=== PATIENT | female | born 1965 | race Caucasian/White ===

== ENCOUNTER → 2016-11-07 | Outpatient (CLI) | payer MEDICAID ==
[~2016-11-07] MED LIST: ACHD5005 PO; ALBU17AE23 INH; ALBU2.5V4 IH; ALBU8.5H2 IH; ALPR.5T PO; ASPI325T32 PO; ATEN-156 PO; ATEN100T88 PO; AZIT250T5 PO; CALC-754 PO; CALC-793 PO; CETI10CA PO; CETI10TA17 PO; CHOL10003 PO; CYAN100053 IM; CYCL10TA45 PO; CYCL10TA9 PO; D50KC PO; DICY10CA26 PO; DICY20TA10 PO; DIPH1TAB25 PO; FLT05NA16 NSEACH; FLUT1DIS26 INH; FLUT1DIS27 IH; FURO-125 PO; GFCD10B PO; GUAI400T11 PO; HYDR25CA PO; HYOS0.1283 SL; IPRA3AMP11 INH; LISI-552 PO; LISI10TA PO; LISI10TA2 PO; MECL25TA56 PO; OMEP20CA6 PO; OMEP20TA2 PO; OMEP40CA36 PO; OMG1KC PO; ONDA4TAB8 PO; OXB5T PO; RNT150T PO; SUCR1ORA5 PO; TRAM50TA2 PO; TRM50T PO; VIT B 12 INJ; VITAMIN D
--- NOTE | 2016-11-07 11:22 | Diagnostic Imaging Report ---
EXAMINATION: Barium swallow double-contrast. INDICATION: Dysphagia Fluoroscopy time: One minute and 58 seconds TECHNIQUE: [employer] An[employer] image of the chest was performed. Subsequently, the patient was given gas forming granules for oral ingestion followed by thick and thin barium to drink. Swallowing through the esophagus was observed with fluoroscopy and overhead images, as well as multiple spot images in the upright and prone positions, were taken. FINDINGS: [employer] Anchor image of the chest demonstrate no significant abnormality. No significant reflux is seen during the study. Normal motility seen. The esophagus is normal in caliber and contour. There is no mucosal abnormality, diverticulum or filling defect to suggest a mass. There is no hiatal hernia demonstrated. IMPRESSION: Unremarkable barium swallow. Dictated by: Dictated on workstation # [id number]
== END ==
LOC: RAD 09:55
PROVIDERS: ATTEND Nurse Practitioner Community Health
DX: R13.11 Dysphagia, oral phase (principal)
CPT/HCPCS: 74220

== ENCOUNTER 2017-08-11 07:08 | Emergency (ER) | payer MEDICAID ==
[~2017-08-11] VITALS: Ht 172.7 cm; Wt 87.5 kg
[~2017-08-11 07:08] MED LIST changes: +AZIT250T12 PO; -AZIT250T5 PO
--- OUTSIDE RECORDS SUMMARY | 2017-08-11 07:12 | XMS REPORT ---
Author BRETT Rodriguez [facility] eClinicalWorks Address Unknown Phone Unavailable Care Team Providers Care Booster Pump Oiler Name Role Phone BRETT JOHNSON CP Unavailable Allergies No Known Allergies Problems Problem Type Condition Code Onset Dates Condition Status Problem Spasm of muscle 728.85 Active Problem Other abnormal glucose 790.29 Active Problem Pain in joint, ankle and foot 719.47 Active Problem Hypertension, benign I10 Active Problem HTN (hypertension) 401.9 Active Problem Vitamin B 12 deficiency E53.8 Active Problem Hypoglycemia, unspecified 251.2 Active Problem Pain in joint, pelvic region and thigh 719.45 Active Problem Sebaceous cyst 706.2 Active Problem Abdominal pain, right upper quadrant 789.01 Active Problem Unspecified epilepsy without mention of intractable epilepsy 345.90 Active Problem Depressive disorder, not elsewhere classified 311 Active Problem Generalized anxiety disorder 300.02 Active Medications Medication Code System Code Instructions Start Date End Date Status Dosage Xanax [facility] [address]-81 0.5 MG 4 times a day(MUST KEEP APPOINTMENT FOR ANY FURTHER REFILLS) November 26, 2014 take 1 tablet Fluticasone Propionate [facility] 73720183571 50 MCG/ACT USE ONE SPRAY IN EACH NOSTRIL ONCE DAILY Results No Known Results Summary Purpose eClinicalWorks Submission
--- OUTSIDE RECORDS SUMMARY | 2017-08-11 07:12 | XMS REPORT ---
Author Author BRETT JOHNSON [facility] Address [address] [place] [address] Care Team Providers Care Casino Cage Supervisor Name Role Phone BRETT JOHNSON Unavailable PROBLEMS Type Condition ICD9-CM Code [id number] Code Onset Dates Condition Status SNOMED Code Problem Hypoglycemia, unspecified 251.2 Active 251767390 Problem Hypertension, benign I10 Active 24924868 Problem HTN (hypertension) 401.9 Active 25698352 Problem Chronic sinusitis, unspecified J32.9 Active 99711361 Problem Chronic fatigue R53.82 Active 23938864 Problem Generalized anxiety disorder F41.1 Active 81558786 Problem Vitamin B 12 deficiency E53.8 Active 42037203 Problem Oral phase dysphagia R13.11 Active 209298333 Problem Chronic obstructive pulmonary disease, unspecified COPD type J44.9 Active 07056363 Problem Abdominal pain, right upper quadrant 789.01 Active 105406965 Problem Spasm of muscle 728.85 Active 93410569 Problem Other abnormal glucose 790.29 Active 744160346 Problem Sebaceous cyst 706.2 Active 453314763 Problem Unspecified epilepsy without mention of intractable epilepsy 345.90 Active 15010369 Problem Pain in joint, ankle and foot 719.47 Active 774952994 Problem Depressive disorder, not elsewhere classified 311 Active 73682386 Problem Pain in joint, pelvic region and thigh 719.45 Active 079847602 Problem Generalized anxiety disorder 300.02 Active 57827874 ALLERGIES Unknown Allergies SOCIAL HISTORY No smoking Hx information available PLAN OF CARE VITAL SIGNS MEDICATIONS Medication Instructions Dosage Frequency Start Date End Date Duration Status Xanax 0.5 MG Orally 4 times a day take 1 tablet 6h Nov, 28 days Active RESULTS No Results PROCEDURES No Known procedures IMMUNIZATIONS No Known Immunizations
--- OUTSIDE RECORDS SUMMARY | 2017-08-11 07:13 | XMS REPORT ---
Author Author BRETT JOHNSON [facility] Address [address] [place] [address] Care Team Providers Care Racecar Driver Name Role Phone BRETT JOHNSON Unavailable PROBLEMS Type Condition ICD9-CM Code PBE19-JK Code Onset Dates Condition Status SNOMED Code Problem HTN (hypertension) 401.9 Active 78182087 Problem Vitamin B 12 deficiency E53.8 Active 74866697 Problem Hypertension, benign I10 Active 40014705 Problem Gastroesophageal reflux disease without esophagitis K21.9 Active 513274157 Problem Chronic sinusitis, unspecified J32.9 Active 19520701 Problem Chronic obstructive pulmonary disease, unspecified COPD type J44.9 Active 56048998 Problem Generalized anxiety disorder F41.1 Active 21447883 Problem Chronic fatigue R53.82 Active 84070422 Problem Oral phase dysphagia R13.11 Active 937589539 Problem Spasm of muscle 728.85 Active 98534320 Problem Pain in joint, ankle and foot 719.47 Active 600487446 Problem Other abnormal glucose 790.29 Active 795479812 Problem Abdominal pain, right upper quadrant 789.01 Active 167873877 Problem Unspecified epilepsy without mention of intractable epilepsy 345.90 Active 07873362 Problem Depressive disorder, not elsewhere classified 311 Active 05695725 Problem Pain in joint, pelvic region and thigh 719.45 Active 834250038 Problem Generalized anxiety disorder 300.02 Active 89649569 Problem Sebaceous cyst 706.2 Active 865288686 Problem Hypoglycemia, unspecified 251.2 Active 331597302 ALLERGIES No Information SOCIAL HISTORY Never Assessed PLAN OF CARE VITAL SIGNS MEDICATIONS Medication Instructions Dosage Frequency Start Date End Date Duration Status Xanax 0.5 MG Orally 4 times a day take 1 tablet 6h Nov, 28 days Active RESULTS No Results PROCEDURES No Known procedures IMMUNIZATIONS No Known Immunizations MEDICAL (GENERAL) HISTORY Type Description Date Medical History Hypertension Medical History Chronic Obstructive pulmonary disease diagnosed 2008 in [facility]-PFT not done previously Medical History Gastrointestinal disorder IBS diverticulosis Medical History Metabloic disorders-Vitamin B12 and Vitamin D deficiencies Medical History Bilateral knee problems Medical History Backache Medical History History of blood clots during treated with heparin Medical History bilatera edema to the legs Surgical History Cholecystectomy 1975 Surgical History Hital hernia and umbilical hernia reparied x2 previously Surgical History Dental surgery Surgical History appendectomy Surgical History Hysterectomy TVH w RSO for fibroids and precancerous cell for the cervix 1997 Surgical History section 1996, 1991 Surgical History EGD, Scope, Colonoscopy Hospitalization History surgeries Hospitalization History edema 06/2015
--- OUTSIDE RECORDS SUMMARY | 2017-08-11 07:13 | XMS REPORT ---
Author Author BRETT JOHNSON [facility] eClinicalWorks Address Unknown Phone Unavailable Care Team Providers Care Software Release Manager Name Role Phone BRETT JOHNSON CP Unavailable Allergies No Known Allergies Problems Problem Type Condition Code Onset Dates Condition Status Problem Depressive disorder, not elsewhere classified 311 Active Problem Spasm of muscle 728.85 Active Problem Generalized anxiety disorder 300.02 Active Assessment Degenerative disc disease 722.6 Active Problem Unspecified epilepsy without mention of intractable epilepsy 345.90 Active Problem Sebaceous cyst 706.2 Active Problem Abdominal pain, right upper quadrant 789.01 Active Problem HTN (hypertension) 401.9 Active Problem Other abnormal glucose 790.29 Active Problem Pain in joint, ankle and foot 719.47 Active Problem Hypoglycemia, unspecified 251.2 Active Problem Pain in joint, pelvic region and thigh 719.45 Active Medications Medication Code System Code Instructions Start Date End Date Status Dosage Tramadol HCl [facility] [address]-20 50 MG Orally every 6 hrs April 18, 2015 1 tablet as needed Xanax [facility] [address]-92 0.5 MG 4 times a day November 26, 2014 take 1 tablet Results No Known Results Summary Purpose eClinicalWorks Submission
--- OUTSIDE RECORDS SUMMARY | 2017-08-11 07:13 | XMS REPORT ---
Author Author BRETT JOHNSON Organization eClinicalWorks Address Unknown Phone Unavailable Care Team Providers Care Electronics Parts Sales Representative Name Role Phone BRETT JOHNSON CP Unavailable Allergies No Known Allergies Problems Problem Type Condition ICD-9 Code Onset Dates Condition Status Problem Depressive disorder, not elsewhere classified 311 Active Problem Spasm of muscle 728.85 Active Problem Generalized anxiety disorder 300.02 Active Problem Unspecified epilepsy without mention of intractable epilepsy 345.90 Active Problem Sebaceous cyst 706.2 Active Problem Abdominal pain, right upper quadrant 789.01 Active Problem HTN (hypertension) 401.9 Active Problem Other abnormal glucose 790.29 Active Problem Pain in joint, ankle and foot 719.47 Active Problem Hypoglycemia, unspecified 251.2 Active Problem Pain in joint, pelvic region and thigh 719.45 Active Medications No Known Medications Results No Known Results Summary Purpose eClinicalWorks Submission
--- OUTSIDE RECORDS SUMMARY | 2017-08-11 07:13 | XMS REPORT ---
Author Author BRETT JOHNSON [facility] eClinicalWorks Address Unknown Phone Unavailable Care Team Providers Care Trading Specialist Name Role Phone BRETT JOHNSON CP Unavailable [...] Date End Date Status Dosage Tramadol HCl [facility] [address]-28 50 MG Orally every 6 hrs April 18, 2015 1 tablet as needed Xanax [facility] [address]-75 0.5 MG 4 times a day November 26, 2014 take 1 tablet Results No Known Results Summary Purpose eClinicalWorks Submission
--- OUTSIDE RECORDS SUMMARY | 2017-08-11 07:14 | XMS REPORT ---
Author Author BRETT JOHNSON [facility] eClinicalWorks Address Unknown Phone Unavailable Care Team Providers Care Public Service Representative Name Role Phone BRETT JOHNSON CP [...] Start Date End Date Status Dosage Xanax [facility] [address]-05 0.5 MG 4 times a day November 26, 2014 take 1 tablet Results No Known Results Summary Purpose eClinicalWorks Submission
--- OUTSIDE RECORDS SUMMARY | 2017-08-11 07:14 | XMS REPORT ---
Author Author BRETT JOHNSON [facility] eClinicalWorks Address Unknown Phone Unavailable Care Team Providers Care Foundation Drill Operator Name Role Phone BRETT JOHNSON CP Unavailable Allergies No Known Allergies Problems Problem Type Condition Code Onset Dates Condition Status Problem Pain in joint, ankle and foot 719.47 Active Problem Pain in joint, pelvic region and thigh 719.45 Active Problem Other abnormal glucose 790.29 Active Problem Vitamin B 12 deficiency E53.8 Active Problem Hypertension, benign I10 Active Problem Generalized anxiety disorder F41.1 Active Problem Abdominal pain, right upper quadrant 789.01 Active Problem Hypoglycemia, unspecified 251.2 Active Problem HTN (hypertension) 401.9 Active Problem Sebaceous cyst 706.2 Active Problem Unspecified epilepsy without mention of intractable epilepsy 345.90 Active Problem Depressive disorder, not elsewhere classified 311 Active Problem Generalized anxiety disorder 300.02 Active Problem Spasm of muscle 728.85 Active Medications No Known Medications Results No Known Results Summary Purpose [employer]ing[employer] Submission
--- OUTSIDE RECORDS SUMMARY | 2017-08-11 07:14 | XMS REPORT ---
Author BRETT Rodriguez [facility] eClinicalWorks Address Unknown Phone Unavailable Care Team Providers Care Hypnotherapist Name Role Phone BRETT JOHNSON CP Unavailable Allergies, Adverse Reactions, Alerts Substance Reaction Event Type Ketorolac Tromethamine tingling in lips Drug Allergy Augmentin 875-125 Mg Tablet Pt states this medication is to harsh on her stomach. Non Drug Allergy Problems Problem Type Condition Code Onset Dates Condition Status Problem Generalized anxiety disorder 300.02 Active Problem Pain in joint, ankle and foot 719.47 Active Problem Spasm of muscle 728.85 Active Problem HTN (hypertension) 401.9 Active Problem Sebaceous cyst 706.2 Active Problem Hypertension, benign I10 Active Problem Pain in joint, pelvic region and thigh 719.45 Active Problem Other abnormal glucose 790.29 Active Problem Abdominal pain, right upper quadrant 789.01 Active Problem Hypoglycemia, unspecified 251.2 Active Assessment Vitamin B 12 deficiency E53.8 Active Assessment Vision changes H53.9 Active Assessment Hypertension, benign I10 Active Assessment Irritable bowel syndrome with diarrhea K58.0 Active Assessment Edema, unspecified type R60.9 Active Problem Unspecified epilepsy without mention of intractable epilepsy 345.90 Active Assessment Chronic obstructive pulmonary disease, unspecified COPD type J44.9 Active Problem Depressive disorder, not elsewhere classified 311 Active Medications Medication Code System Code Instructions Start Date End Date Status Dosage Tramadol HCl [facility] [address]-29 50 MG Orally every 6 hrs April 18, 2015 1 tablet as needed Depakote [facility] [address]-72 500 MG Orally Once a day Jun 20, 2015 1 tablet Cetirizine HCl [facility] 09123679440 10 MG TAKE ONE TABLET BY MOUTH ONCE DAILY Omeprazole [facility] 17383702300 20 MG TAKE ONE CAPSULE BY MOUTH ONCE DAILY Phenergan [facility] [address]-75 25 mg Sep 13, 2014 1 tablet by Oral route every 6 hours PRN Acidophilus [facility] [address]121 100 MG Orally Once a day Oct 21, 2015November as directed cyclobenzaprine [facility] [address]-29 10 mg November 26, 2014 1 tablet 2 times per day PRN Fluticasone Propionate [facility] 70619045776 50 MCG/ACT USE ONE SPRAY IN EACH NOSTRIL ONCE DAILY Cyclobenzaprine HCl [facility] 95347352026 10 MG TAKE ONE TABLET BY MOUTH TWICE DAILY NEEDED ProAir HFA [facility] [address]-06 90 mcg/actuation November 26, 2014 inhale 2 puffs by Inhalation route every 4 hours as needed PRN shortness of breath/cough Lisinopril [facility] [address]-70 20 MG Orally Once a day January 24, 2015 1 tablet Vistaril [facility] [address]-36 25 MG Orally every 8 hrs 1 capsule as needed Adult Aspirin EC Low Strength [facility] [address]113 81 MG Orally Once a day 1 tablet Furosemide [facility] [address]-36 20 MG Orally Once a day 1 tablet Dicyclomine HCl [facility] 78654375408 20 MG Orally Four times a day PRN 1 tablet Xanax [facility] [address]-06 0.5 MG 4 times a day November 26, 2014 take 1 tablet Atenolol [facility] [address]-72 100 MG November 26, 2014 0.5 tablet by Oral route 2 times per day Advair Diskus [facility] [address]-06 500-50 MCG/DOSE Inhalation Twice a day November 26, 2014 1 puffs by Inhalation route 2 times per day Ranitidine HCl [facility] [address]-57 150 MG March 31, 2014 take 1 tablet (150 mg) by oral route 2 times per day Vitamin D3 [facility] [address] 1,000 unit February 03, 2013 2 capsule by Oral route 1 time per day fluticasone nasal ND 0 50 mcg/actuation November 26, 2014 1 sprays by Nasal route 1 time per day Procedures Procedure Coding System Code Date B12, VITAMIN (UP TO 1000 MCG) CPT-4 J3420 Oct 21, 2015 THER/PROPH/DIAG INJ, SC/IM CPT-4 69320 Oct 21, 2015 Office Visit, Est Pt., Level 3 CPT-4 80951 Oct 21, 2015 Vital Signs Date/Time: Oct 21, 2015 Temperature 98.6 F Weight 202.0 lbs Height 67 in BMI 31.63 Index Blood Pressure Diastolic 100 mmHg Blood Pressure Systolic 178 mmHg Cardiac Monitoring Heart Rate 100 bpm Results No Known Results Summary Purpose eClinicalWorks Submission
--- OUTSIDE RECORDS SUMMARY | 2017-08-11 07:14 | XMS REPORT ---
Author Author BRETT JOHNSON [facility] Address [address] [place] [address] Care Team Providers Care Marketing Operations Specialist Name Role Phone BRETT JOHNSON Unavailable PROBLEMS Type Condition ICD9-CM Code NUN39-FL Code Onset Dates Condition Status SNOMED Code Problem Hypoglycemia, unspecified 251.2 Active 375781128 Problem Hypertension, benign I10 Active 03300550 Problem HTN (hypertension) 401.9 Active 19208425 Problem Chronic sinusitis, unspecified J32.9 Active 40651796 Problem Chronic fatigue R53.82 Active 64158048 Problem Generalized anxiety disorder F41.1 Active 79200929 Problem Vitamin B 12 deficiency E53.8 Active 97971587 Problem Oral phase dysphagia R13.11 Active 578712205 Problem Chronic obstructive pulmonary disease, unspecified COPD type J44.9 Active 63885936 Problem Abdominal pain, right upper quadrant 789.01 Active 621024888 Problem Spasm of muscle 728.85 Active 83875535 Problem Other abnormal glucose 790.29 Active 474178257 Problem Sebaceous cyst 706.2 Active 407091694 Problem Unspecified epilepsy without mention of intractable epilepsy 345.90 Active 04936856 Problem Pain in joint, ankle and foot 719.47 Active 959917522 Problem Depressive disorder, not elsewhere classified 311 Active 03275703 Problem Pain in joint, pelvic region and thigh 719.45 Active 852738649 Problem Generalized anxiety disorder 300.02 Active 81106879 ALLERGIES Substance Reaction Event Type Date Status MethylPREDNISolone goes crazy Drug Allergy Sep, Active Ketorolac Tromethamine tingling in lips Drug Allergy Sep, Active Augmentin 875-125 Mg Tablet Pt states this medication is to harsh on her stomach. Non Drug Allergy Sep, Active SOCIAL HISTORY No smoking Hx information available PLAN OF CARE VITAL SIGNS Height 67 in 2016-10-15 Weight 193.2 lbs 2016-10-15 Temperature 98.3 degrees Fahrenheit 2016-10-15 Heart Rate 88 bpm 2016-10-15 Respiratory Rate 24 2016-10-15 BMI 30.26 kg/m2 2016-10-15 Blood pressure systolic 180 mmHg 2016-10-15 Blood pressure diastolic 116 mmHg 2016-10-15 MEDICATIONS Medication Instructions Dosage Frequency Start Date End Date Duration Status Cyclobenzaprine HCl 10 MG TAKE ONE TABLET BY MOUTH TWICE DAILY NEEDED 30 Active Dicyclomine HCl 20 MG Orally Four times a day PRN 1 tablet 30 Active Vitamin D3 1,000 unit 2 capsule by Oral route 1 time per day January, Active Omeprazole 20 MG 2 tablets 24h 30 Active Albuterol Sulfate (2.5 MG/3ML) 0.083% Inhalation every 4 hrs 3 ml 4h Oct Active Cetirizine HCl 10 MG TAKE ONE TABLET BY MOUTH ONCE DAILY 30 Active Advair Diskus 500-50 MCG/DOSE Inhalation Twice a day 1 puffs by Inhalation route 2 times per day 12h Nov, Active Wheelchair - as directed May, Active ProAir HFA 108 (90 Base) MCG/ACT INHALE TWO PUFFS BY MOUTH EVERY 4 HOURS NEEDED FOR SHORTNESS OF BREATH/COUGH 17 Active Atenolol 100 MG 0.5 tablet by Oral route 2 times per day 30 Active Xanax 0.5 MG Orally 4 times a day take 1 tablet 6h Nov, 28 days Active Ranitidine HCl 150 MG take 1 tablet (150 mg) by oral route 2 times per day 30 Active Tramadol HCl 50 MG Orally every 6 hrs 1 tablet as needed 6h Mar, Active Vitamin D 1000 UNIT TAKE TWO TABLETS BY MOUTH ONCE DAILY 30 Active Aspirin 325 MG Orally Once a day 1 tablet 24h Active Fluticasone Propionate 50 MCG/ACT 1 spray in each nostril 12h Active RESULTS Name Result Date Reference Range TSH W/ FREE T4 2016-10-15 TSH 2.010 0.450-4.500 T4,Free(Direct) 0.94 0.82-1.77 T3 TOTAL 2016-10-15 Triiodothyronine (T3) 113 71-180 Barium Swallow 2016-11-07 PROCEDURES Procedure Date Ordered Related Diagnosis Body Site Office Visit, Est Pt., Level 3 Oct 15, 2016 B12, VITAMIN (UP TO 1000 MCG) Oct 15, 2016 VENIPUNCT, ROUTINE* Oct 15, 2016 THER/PROPH/DIAG INJ, SC/IM Oct 15, 2016 LAB NOT BILLED BY [facility] Oct 15, 2016 IMMUNIZATIONS Vaccine Route Administration Date Status B12, VITAMIN (UP TO 1000 MCG) SC Subcutaneous Oct 15, 2016 Administered
--- OUTSIDE RECORDS SUMMARY | 2017-08-11 07:14 | XMS REPORT ---
Author Author BRETT JOHNSON [facility] Address [address] [place] [address] Care Team Providers Care Collections Assistant Name Role Phone BRETT JOHNSON Unavailable PROBLEMS Type Condition ICD9-CM Code QUI56-PX Code Onset Dates Condition Status SNOMED Code Problem Other abnormal glucose 790.29 Active 459538510 Problem Hypoglycemia, unspecified 251.2 Active 528927073 Problem Pain in joint, pelvic region and thigh 719.45 Active 341517687 Problem Generalized anxiety disorder F41.1 Active 43903647 Problem Vitamin B 12 deficiency E53.8 Active 18635150 Problem Sebaceous cyst 706.2 Active 475764147 Problem Abdominal pain, right upper quadrant 789.01 Active 183046023 Problem Hypertension, benign I10 Active 58440632 Problem HTN (hypertension) 401.9 Active 86705350 Assessment Arthritis M19.90 May, Active 7788165 Assessment Essential (primary) hypertension I10 May, Active 00832434 Assessment Encounter for immunization Z23 May, Active 644493527 Assessment Chronic obstructive pulmonary disease, unspecified COPD type J44.9 May, Active 89294150 Problem Depressive disorder, not elsewhere classified 311 Active 23441091 Problem Generalized anxiety disorder 300.02 Active 45471287 Assessment Vitamin B 12 deficiency E53.8 May, Active 06505830 Problem Spasm of muscle 728.85 Active 40262718 Problem Unspecified epilepsy without mention of intractable epilepsy 345.90 Active 02831123 Problem Pain in joint, ankle and foot 719.47 Active 008086124 ALLERGIES Substance Reaction Event Type Date Status Ketorolac Tromethamine tingling in lips Drug Allergy May, Active Augmentin 875-125 Mg Tablet Pt states this medication is to harsh on her stomach. Non Drug Allergy May, Active SOCIAL HISTORY No smoking Hx information available PLAN OF CARE VITAL SIGNS Height 67 in 2016-06-07 Weight 191.3 lbs 2016-06-07 Heart Rate 80 bpm 2016-06-07 Respiratory Rate 20 2016-06-07 BMI 29.96 kg/m2 2016-06-07 Blood pressure systolic 172 mmHg 2016-06-07 Blood pressure diastolic 90 mmHg 2016-06-07 MEDICATIONS Medication Instructions Dosage Frequency Start Date End Date Duration Status Advair Diskus 500-50 MCG/DOSE Inhalation Twice a day 1 puffs by Inhalation route 2 times per day 12h Nov, Active Wheelchair - as directed May, Active Cyclobenzaprine HCl 10 MG TAKE ONE TABLET BY MOUTH TWICE DAILY NEEDED 30 Active ProAir HFA 108 (90 Base) MCG/ACT INHALE TWO PUFFS BY MOUTH EVERY 4 HOURS NEEDED FOR SHORTNESS OF BREATH/COUGH 17 Active Vitamin D3 1,000 unit 2 capsule by Oral route 1 time per day January, Active Tramadol HCl 50 MG Orally every 6 hrs 1 tablet as needed 6h Mar, Active Fluticasone Propionate 50 MCG/ACT USE ONE SPRAY IN EACH NOSTRIL ONCE DAILY 30 Active Omeprazole 20 MG 2 tablets 24h 30 Active Dicyclomine HCl 20 MG Orally Four times a day PRN 1 tablet 30 Active Atenolol 100 MG 0.5 tablet by Oral route 2 times per day 30 Active Aspirin 325 MG Orally Once a day 1 tablet 24h Active Albuterol Sulfate (2.5 MG/3ML) 0.083% Inhalation Three times a day 3 ml 8h Oct, Active Cetirizine HCl 10 MG TAKE ONE TABLET BY MOUTH ONCE DAILY 30 Active Ranitidine HCl 150 MG take 1 tablet (150 mg) by oral route 2 times per day 30 Active Xanax 0.5 MG take 1 tablet Nov, Active RESULTS No Results PROCEDURES Procedure Date Ordered Related Diagnosis Body Site Office Visit, Est Pt., Level 3 Jun 07, 2016 FLUARIX QUAD P-FREE 3 AND UP .50 2015Jun 07, 2016 THER/PROPH/DIAG INJ, SC/IM Jun 07, 2016 SINGLE IMMUNIZATION ADMIN Jun 07, 2016 PCV 13 Jun 07, 2016 B12, VITAMIN (UP TO 1000 MCG) Jun 07, 2016 IMMUNIZATION ADMIN, EACH ADD (please include units) Jun 07, 2016 IMMUNIZATIONS Vaccine Route Administration Date Status PCV 13 IM Intramuscular Jun 07, 2016 Administered B12, VITAMIN (UP TO 1000 MCG) IM Intramuscular Jun 07, 2016 Administered FLUARIX QUAD P-FREE 3 AND UP .50 2015 IM Intramuscular Jun 07, 2016 Administered
--- OUTSIDE RECORDS SUMMARY | 2017-08-11 07:14 | XMS REPORT ---
Author Author BRETT JOHNSON [facility] Address [address] [place] [address] Care Team Providers Care Poultry Dressing Worker Name Role Phone BRETT JOHNSON Unavailable PROBLEMS Type Condition ICD9-CM Code TBP26-FS Code Onset Dates Condition Status SNOMED Code Problem Pain in joint, pelvic region and thigh 719.45 Active 862541852 Problem Abdominal pain, right upper quadrant 789.01 Active 370732071 Problem Hypoglycemia, unspecified 251.2 Active 784471088 Problem Chronic obstructive pulmonary disease, unspecified COPD type J44.9 Active 68536710 Problem Generalized anxiety disorder F41.1 Active 14880480 Problem HTN (hypertension) 401.9 Active 61748999 Problem Sebaceous cyst 706.2 Active 062828668 Problem Vitamin B 12 deficiency E53.8 Active 97689935 Problem Hypertension, benign I10 Active 73442448 Problem Generalized anxiety disorder 300.02 Active 68395349 Problem Spasm of muscle 728.85 Active 80117712 Problem Unspecified epilepsy without mention of intractable epilepsy 345.90 Active 64236039 Problem Pain in joint, ankle and foot 719.47 Active 900692068 Problem Depressive disorder, not elsewhere classified 311 Active 36331202 Problem Other abnormal glucose 790.29 Active 524046099 ALLERGIES Unknown Allergies SOCIAL HISTORY No smoking Hx information available PLAN OF CARE VITAL SIGNS MEDICATIONS Medication Instructions Dosage Frequency Start Date End Date Duration Status ProAir HFA 108 (90 Base) MCG/ACT INHALE TWO PUFFS BY MOUTH EVERY 4 HOURS NEEDED FOR SHORTNESS OF BREATH/COUGH 17 Active RESULTS No Results PROCEDURES No Known procedures IMMUNIZATIONS No Known Immunizations
--- OUTSIDE RECORDS SUMMARY | 2017-08-11 07:15 | XMS REPORT ---
Author BRETT Rodriguez [facility] eClinicalWorks Address Unknown Phone Unavailable Care Team Providers Care Preliminary School Psychologist Name Role Phone BRETT JOHNSON CP Unavailable Allergies, Adverse Reactions, Alerts Substance Reaction Event Type MethylPREDNISolone goes crazy Drug Allergy Ketorolac Tromethamine tingling in lips Drug Allergy Augmentin 875-125 Mg Tablet Pt states this medication is to harsh on her stomach. Non Drug Allergy Problems Problem Type Condition Code Onset Dates Condition Status Problem Other abnormal glucose 790.29 Active Problem Hypoglycemia, unspecified 251.2 Active Problem Pain in joint, pelvic region and thigh 719.45 Active Problem Generalized anxiety disorder F41.1 Active Problem Vitamin B 12 deficiency E53.8 Active Problem Chronic obstructive pulmonary disease, unspecified COPD type J44.9 Active Problem Sebaceous cyst 706.2 Active Problem Abdominal pain, right upper quadrant 789.01 Active Problem Hypertension, benign I10 Active Problem HTN (hypertension) 401.9 Active Assessment Chronic obstructive pulmonary disease, unspecified COPD type J44.9 Active Assessment Generalized anxiety disorder F41.1 Active Problem Depressive disorder, not elsewhere classified 311 Active Problem Generalized anxiety disorder 300.02 Active Assessment Bronchitis J40 Active Problem Spasm of muscle 728.85 Active Problem Unspecified epilepsy without mention of intractable epilepsy 345.90 Active Problem Pain in joint, ankle and foot 719.47 Active Medications Medication Code System Code Instructions Start Date End Date Status Dosage Albuterol Sulfate [facility] [address]-62 (2.5 MG/3ML) 0.083% Inhalation every 4 hrs Nov 21, 2015 3 ml Advair Diskus [facility] [address]-48 500-50 MCG/DOSE Inhalation Twice a day November 26, 2014 1 puffs by Inhalation route 2 times per day Vitamin D3 [facility] [address] 1,000 unit February 03, 2013 2 capsule by Oral route 1 time per day Xanax [facility] [address]-57 0.5 MG 4 times a day(MUST KEEP APPOINTMENT FOR ANY FURTHER REFILLS) November 26, 2014 take 1 tablet Cyclobenzaprine HCl [facility] 22020518525 10 MG TAKE ONE TABLET BY MOUTH TWICE DAILY NEEDED Ranitidine HCl [facility] 60329586047 150 MG take 1 tablet (150 mg) by oral route 2 times per day Cetirizine HCl [facility] 90497817525 10 MG TAKE ONE TABLET BY MOUTH ONCE DAILY Atenolol [facility] 88970512011 100 MG 0.5 tablet by Oral route 2 times per day Wheelchair [facility] [address] - DX: arthritis. copd Jun 07, 2016 as directed Aspirin [facility] [address]-98 325 MG Orally Once a day 1 tablet Tramadol HCl [facility] [address]-15 50 MG Orally every 6 hrs April 18, 2015 1 tablet as needed Dicyclomine HCl [facility] 28052891718 20 MG Orally Four times a day PRN 1 tablet ProAir HFA [facility] 18307342881 108 (90 Base) MCG/ACT INHALE TWO PUFFS BY MOUTH EVERY 4 HOURS NEEDED FOR SHORTNESS OF BREATH/COUGH Fluticasone Propionate [facility] 90005524973 50 MCG/ACT 2 times a day 1 spray in each nostril Omeprazole [facility] [address]-62 20 MG Once a day 2 tablets Procedures Procedure Coding System Code Date B12, VITAMIN (UP TO 1000 MCG) CPT-4 J3420 Jul 12, 2016 THER/PROPH/DIAG INJ, SC/IM CPT-4 12576 Jul 12, 2016 Office Visit, Est Pt., Level 3 CPT-4 10830 Jul 12, 2016 VENIPUNCT, ROUTINE* CPT-4 81768 Jul 12, 2016 LAB NOT BILLED BY [facility] CPT-4 NOBLL Jul 12, 2016 Vital Signs Date/Time: Jul 12, 2016 Cardiac Monitoring Heart Rate 80 bpm Weight 183 lbs Height 67 in BMI 28.66 Index Blood Pressure Diastolic 80 mmHg Blood Pressure Systolic 116 mmHg Results Name Result Date Reference Range Unit Abnormality Flag ROUTINE VENIPUNCTURE CMP ----Sodium, Serum 142 20160712 136-144 mmol/L ----BUN/Creatinine Ratio 6 20160712 9-23 L ----Chloride, Serum 100 56931369 97-106 mmol/L ----Potassium, Serum 4.0 20160712 3.5-5.2 mmol/L ----Calcium, Serum 9.1 61115147 8.7-10.2 mg/dL ----Protein, Total, Serum 6.6 09762758 6.0-8.5 g/dL ----Carbon Dioxide, Total 27 37394004 18-29 mmol/L ----A/G Ratio 1.5 69407057 1.1-2.5 ----eGFR If NonAfricn Am 87 53056370 >59 mL/min/1.73 ----Bilirubin, Total <0.2 01030818 0.0-1.2 mg/dL ----eGFR If Africn Am 100 12339514 >59 mL/min/1.73 ----BUN 5 35384533 6-24 mg/dL L ----Albumin, Serum 4.0 87944610 3.5-5.5 g/dL ----Globulin, Total 2.6 89069135 1.5-4.5 g/dL ----Creatinine, Serum 0.78 29449222 0.57-1.00 mg/dL ----ALT (SGPT) 11 22378417 0-32 IU/L ----Glucose, Serum 84 25611595 65-99 mg/dL ----Alkaline Phosphatase, S 73 15692586 39-117 IU/L ----AST (SGOT) 10 [id number] 0-40 IU/L Summary Purpose eClinicalWorks Submission
--- OUTSIDE RECORDS SUMMARY | 2017-08-11 07:15 | XMS REPORT ---
Author Author BRETT JOHNSON Organization eClinical[employer] Address Unknown Phone Unavailable Care Team Providers Care Visual Educator Name Role Phone BRETT JOHNSON CP Unavailable [...]
--- OUTSIDE RECORDS SUMMARY | 2017-08-11 07:15 | XMS REPORT ---
Author BRETT Rodriguez [facility] eClinicalWorks Address Unknown Phone Unavailable Care Team Providers Care Deli Bakery Clerk Name Role Phone BRETT JOHNSON CP Unavailable [...] Date End Date Status Dosage Tramadol HCl [facility] [address]-84 50 MG Orally every 6 hrs April 18, 2015 1 tablet as needed Xanax [facility] [address]-90 0.5 MG 4 times a day November 26, 2014 take 1 tablet Results No Known Results Summary Purpose eClinicalWorks Submission
--- OUTSIDE RECORDS SUMMARY | 2017-08-11 07:15 | XMS REPORT ---
Author Author BRETT JOHNSON [facility] eClinicalWorks Address Unknown Phone Unavailable Care Team Providers Care Brick Setter Operator Name Role Phone BRETT JOHNSON CP [...] Start Date End Date Status Dosage Xanax [facility] [address]-74 0.5 MG 4 times a day November 26, 2014 take 1 tablet Tramadol HCl [facility] [address]-52 50 MG Orally every 6 hrs April 18, 2015 1 tablet as needed Results No Known Results Summary Purpose eClinicalWorks Submission
--- OUTSIDE RECORDS SUMMARY | 2017-08-11 07:17 | XMS REPORT ---
Author Author BRETT JOHNSON Organization eClinicalWorks Address Unknown Phone Unavailable Care Team Providers Care Product Safety Coordinator Name Role Phone BRETT JOHNSON CP Unavailable [...]
--- OUTSIDE RECORDS SUMMARY | 2017-08-11 07:17 | XMS REPORT ---
Author Author BRETT JOHNSON [facility] eClinicalWorks Address Unknown Phone Unavailable Care Team Providers Care Manager Alliance Name Role Phone BRETT JOHNSON CP Unavailable [...] Instructions Start Date End Date Status Dosage Cetirizine HCl [facility] 89340402053 10 MG TAKE ONE TABLET BY MOUTH ONCE DAILY Results No Known Results Summary Purpose eClinicalWorks Submission
--- OUTSIDE RECORDS SUMMARY | 2017-08-11 07:17 | XMS REPORT ---
Author Author BRETT JOHNSON Organization eClinical[employer] Address Unknown Phone Unavailable Care Team Providers Care Emergency Room Physician Assistant Name Role Phone BRETT JOHNSON CP Unavailable [...] Active Problem Hypoglycemia, unspecified 251.2 Active Assessment Hypertension, benign I10 Active Assessment Vitamin B 12 deficiency E53.8 Active Problem Unspecified epilepsy without mention of intractable epilepsy 345.90 Active Assessment Chronic obstructive pulmonary disease, unspecified COPD type J44.9 Active Problem Depressive disorder, not elsewhere classified 311 Active Medications No Known Medications Procedures Procedure Coding System Code Date COMPREHEN METABOLIC PANEL CPT-4 01621 Oct 28, 2015 LIPID PANEL CPT-4 60409 Oct 28, 2015 COMPLETE CBC W/AUTO DIFF WBC CPT-4 36828 Oct 28, 2015 VITAMIN B-12 CPT-4 01802 Oct 28, 2015 ASSAY THYROID STIM HORMONE CPT-4 78032 Oct 28, 2015 VENIPUNCT, ROUTINE* CPT-4 14009 Oct 28, 2015 Results Name Result Date Reference Range Unit Abnormality Flag ROUTINE VENIPUNCTURE Summary Purpose eClinicalWorks Submission
--- OUTSIDE RECORDS SUMMARY | 2017-08-11 07:17 | XMS REPORT ---
Author Author BRETT JOHNSON [facility] eClinicalWorks Address Unknown Phone Unavailable Care Team Providers Care Scholastic Aptitude Test Grader Name Role Phone BRETT JOHNSON CP Unavailable [...] Active Problem HTN (hypertension) 401.9 Active Problem Depressive disorder, not elsewhere classified 311 Active Problem Generalized anxiety disorder 300.02 Active Problem Spasm of muscle 728.85 Active Problem Unspecified epilepsy without mention of intractable epilepsy 345.90 Active Problem Pain in joint, ankle and foot 719.47 Active Medications Medication Code System Code Instructions Start Date End Date Status Dosage Xanax [facility] [address]-19 0.5 MG 4 times a day(MUST KEEP APPOINTMENT FOR ANY FURTHER REFILLS) November 26, 2014 take 1 tablet Results No Known Results Summary Purpose eClinicalWorks Submission
--- OUTSIDE RECORDS SUMMARY | 2017-08-11 07:17 | XMS REPORT ---
Author Author BRETT JOHNSON [facility] eClinicalWorks Address Unknown Phone Unavailable Care Team Providers Care Pack Out Operator Name Role Phone BRETT JOHNSON CP [...] Medications Results No Known Results Summary Purpose [employer] Submission
--- OUTSIDE RECORDS SUMMARY | 2017-08-11 07:17 | XMS REPORT ---
Author Author BRETT JOHNSON [facility] eClinicalWorks Address Unknown Phone Unavailable Care Team Providers Care Electrical Prospecting Observer Name Role Phone BRETT JOHNSON CP Unavailable [...] Problem Spasm of muscle 728.85 Active Medications Medication Code System Code Instructions Start Date End Date Status Dosage Xanax [facility] [address]-33 0.5 MG 4 times a day(MUST KEEP APPOINTMENT FOR ANY FURTHER REFILLS) November 26, 2014 take 1 tablet Results No Known Results Summary Purpose eClinicalWorks Submission
--- OUTSIDE RECORDS SUMMARY | 2017-08-11 07:17 | XMS REPORT ---
Author BRETT Rodriguez [facility] eClinicalWorks Address Unknown Phone Unavailable Care Team Providers Care Orthodontist Assistant Name Role Phone BRETT JOHNSON CP [...] Problem Generalized anxiety disorder 300.02 Active Problem Sebaceous cyst 706.2 Active Problem Abdominal pain, right upper quadrant 789.01 Active Problem HTN (hypertension) 401.9 Active Problem Other abnormal glucose 790.29 Active Problem Pain in joint, ankle and foot 719.47 Active Problem Hypoglycemia, unspecified 251.2 Active Problem Pain in joint, pelvic region and thigh 719.45 Active Assessment Pain of left leg M79.605 Active Assessment Encounter for immunization Z23 Active Assessment Pain in right leg M79.604 Active Problem Unspecified epilepsy without mention of intractable epilepsy 345.90 Active Medications Medication Code System Code Instructions Start Date End Date Status Dosage Fluticasone Propionate [facility] 37655834424 50 MCG/ACT USE ONE SPRAY IN EACH NOSTRIL ONCE DAILY Xanax [facility] [address]-24 0.5 MG 4 times a day November 26, 2014 take 1 tablet Tramadol HCl [facility] [address]-44 50 MG Orally every 6 hrs April 18, 2015 1 tablet as needed Omeprazole [facility] 00498276170 20 MG TAKE ONE CAPSULE BY MOUTH ONCE DAILY Ranitidine HCl [facility] [address]-71 150 MG March 31, 2014 take 1 tablet (150 mg) by oral route 2 times per day cyclobenzaprine [facility] [address]-00 10 mg November 26, 2014 1 tablet 2 times per day PRN Dicyclomine HCl [facility] 83515096467 20 MG Orally Four times a day PRN 1 tablet Atenolol [facility] [address]-78 100 MG November 26, 2014 0.5 tablet by Oral route 2 times per day Vitamin D3 [facility] 13[address]471 1,000 unit February 03, 2013 2 capsule by Oral route 1 time per day Furosemide [facility] [address]-91 20 MG Orally Once a day 1 tablet Adult Aspirin EC Low Strength [facility] 94682-[address]69 81 MG Orally Once a day 1 tablet fluticasone nasal [facility] 0 50 mcg/actuation November 26, 2014 1 sprays by Nasal route 1 time per day ProAir HFA [facility] [address]-28 90 mcg/actuation November 26, 2014 inhale 2 puffs by Inhalation route every 4 hours as needed PRN shortness of breath/cough Cetirizine HCl [facility] 34422746235 10 MG TAKE ONE TABLET BY MOUTH ONCE DAILY Depakote [facility] [address]-74 500 MG Orally Once a day Jun 20, 2015 1 tablet Advair Diskus [facility] [address]-74 250-50 MCG/DOSE November 26, 2014 1 puffs by Inhalation route 2 times per day Vistaril [facility] [address]-89 25 MG Orally every 8 hrs 1 capsule as needed Lisinopril [facility] [address]-53 10 MG Orally Once a day January 24, 2015 1 tablet Phenergan [facility] [address]-82 25 mg Sep 13, 2014 1 tablet by Oral route every 6 hours PRN Magnesium Oxide [facility] [address]-99 400 MG Orally Once a day Jul 22, 2015 as directed Procedures Procedure Coding System Code Date B12, VITAMIN (UP TO 1000 MCG) CPT-4 J3420 Jul 22, 2015 THER/PROPH/DIAG INJ, SC/IM CPT-4 40071 Jul 22, 2015 Office Visit, Est Pt., Level 3 CPT-4 88142 Jul 22, 2015 SINGLE IMMUNIZATION ADMIN CPT-4 32285 Jul 22, 2015 FLUARIX QUAD (3 & UP)--2014 CPT-4 79546 Jul 22, 2015 Vital Signs Date/Time: Jul 22, 2015 Temperature 97.5 F Weight 198.8 lbs Height 67 in BMI 31.13 Index Blood Pressure Diastolic 100 mmHg Blood Pressure Systolic 152 mmHg Cardiac Monitoring Heart Rate 72 bpm Results No Known Results Immunizations Vaccine Administration Date FLUARIX QUAD (3 & UP)-GSK-2014Jul 22, 2015 Summary Purpose eClinicalWorks Submission
--- OUTSIDE RECORDS SUMMARY | 2017-08-11 07:18 | XMS REPORT ---
Author Author BRETT JOHNSON [facility] eClinicalWorks Address Unknown Phone Unavailable Care Team Providers Care Forensics Analyst Name Role Phone BRETT JOHNSON CP Unavailable Allergies No Known Allergies Problems Problem Type Condition Code Onset Dates Condition Status Problem Generalized anxiety disorder 300.02 Active Problem Pain in joint, ankle and foot 719.47 Active Problem Spasm of muscle 728.85 Active Problem Unspecified epilepsy without mention of intractable epilepsy 345.90 Active Problem Depressive disorder, not elsewhere classified 311 Active Problem HTN (hypertension) 401.9 Active Problem Sebaceous cyst 706.2 Active Problem Hypertension, benign I10 Active Problem Pain in joint, pelvic region and thigh 719.45 Active Problem Other abnormal glucose 790.29 Active Problem Abdominal pain, right upper quadrant 789.01 Active Problem Hypoglycemia, unspecified 251.2 Active Medications No Known Medications Vital Signs Date/Time: Nov 04, 2015 Blood Pressure Diastolic 98 mmHg Blood Pressure Systolic 178 mmHg Height 67 in Results No Known Results Summary Purpose eClinicalWorks Submission
--- OUTSIDE RECORDS SUMMARY | 2017-08-11 07:19 | XMS REPORT ---
Author BRETT Rodriguez [facility] eClinicalWorks Address Unknown Phone Unavailable Care Team Providers Care Glass Bulb Machine Adjuster Name Role Phone BRETT JOHNSON CP Unavailable [...] Problem Generalized anxiety disorder 300.02 Active Medications No Known Medications Results No Known Results Summary Purpose eClinicalWorks Submission
[2017-08-11 07:26] LABS: BASOPHILS % (AUTO) 0 % (0-10); EOSINOPHILS # (AUTO) 0.2 10^3/uL (0.0-0.3); EOSINOPHILS % (AUTO) 1 % (0-10); LYMPHOCYTES # (AUTO) 2.1 X 10^3 (1.0-4.0); LYMPHOCYTES % (AUTO) 14 % (12-44); MEAN CORPUSCULAR HEMOGLOBIN 30 PG (25-34); MEAN CORPUSCULAR HGB CONC 34 G/DL (32-36); MEAN CORPUSCULAR VOLUME 87 FL (80-99); MEAN PLATELET VOLUME 8.9 FL (7.4-10.4); MONOCYTES # (AUTO) 1.3 X 10^3 (0.0-1.0); MONOCYTES % (AUTO) 9 % (0-12); NEUTROPHILS # (AUTO) 11.7 X 10^3 (1.8-7.8); NEUTROPHILS % (AUTO) 76 % (42-75); PLATELET COUNT 250 10^3/uL (130-400); RED BLOOD COUNT 5.26 10^6/uL (4.35-5.85); RED CELL DISTRIBUTION WIDTH 13.5 % (10.0-14.5); WHITE BLOOD COUNT 15.3 10^3/uL (4.3-11.0)
[2017-08-11] MEDS: NITROGLYCERIN 0.4 MG SL TABS BTL 25'S SL PRN ×3 (07:27→07:53)
[2017-08-11] MEDS ORDERED: ASPIRIN 81 MG CHEW (CHILDREN'S ASA) PO ONE (07:30)
[2017-08-11] MEDS ORDERED: LORazepam INJ 2 MG/ML (ATIVAN) VIAL IVP ONE (07:30)
[2017-08-11 07:35] LABS: INR 0.9 (0.8-1.4); PROTHROMBIN TIME PATIENT 11.9 SEC (12.2-14.7)
[2017-08-11 07:42] LABS: ALANINE AMINOTRANSFERASE 19 U/L (0-55); ALBUMIN 4.2 GM/DL (3.2-4.5); ANION GAP 14 MMOL/L (5-14); ASPARTATE AMINO TRANSFERASE 15 U/L (5-34); BILIRUBIN,TOTAL 0.3 MG/DL (0.1-1.0); BLOOD UREA NITROGEN 8 MG/DL (7-18); BUN/CREATININE RATIO 10; CALCIUM 9.7 MG/DL (8.5-10.1); CARBON DIOXIDE 23 MMOL/L (21-32); CHLORIDE 101 MMOL/L (98-107); CREATININE SERUM 0.79 MG/DL (0.60-1.30); GFR ESTIMATED > 60; GLUCOSE 146 MG/DL (70-105); MAGNESIUM 2.1 MG/DL (1.8-2.4); POTASSIUM 3.9 MMOL/L (3.6-5.0); SODIUM 138 MMOL/L (135-145); TOTAL PROTEIN 8.1 GM/DL (6.4-8.2)
--- NOTE | 2017-08-11 07:44 | Diagnostic Imaging Report ---
INDICATION: Chest pain. COMPARISON: 07/05/2016 FINDINGS: Upright portable view of the chest is obtained. Heart size is normal. The pulmonary vessels appear unremarkable. Lungs are clear. IMPRESSION: No acute abnormality is demonstrated. Dictated by: Dictated on workstation # [id number]
[2017-08-11 07:49] LABS: MYOGLOBIN SERUM 28.7 NG/ML (10.0-92.0)
--- NOTE | 2017-08-11 07:50 | ED Chest Pain ---
General Chief Complaint: Chest Pain Stated Complaint: CHEST, BACK, SIDE PAIN Nursing Triage Note: AMB TO ROOM REPORTS LAST NIGHT RAVEN 9P WAS SITTING AT COMPUTER WHEN R ARM STARTING HURTING WITH RADIATION UP TO NECK ACROSS BACK AND DOWN L ARM IN TO CHEST. Nursing Sepsis Screen: No Definite Risk Source: patient, old records Exam Limitations: no limitations History of Present Illness Time seen by provider: 07:08 Initial Comments This 52-year-old woman presents to the emergency room with complaints of pain in her neck, through her shoulders and across the back, down the left arm, and in her upper chest. She also has some pain in the epigastric region which she believes is related to a hiatal hernia. She is rather hypertensive upon arrival. She has not taken her morning medications yet but did take a Flexeril. She does have problems with anxiety and usually takes Xanax. She has no known history of heart disease and review of her chart reveals no prior cardiac workup of stress test or cardiac catheter. She is at risk of heart disease due to her smoking and hypertension. She denies any symptoms of acute illness such as vomiting, fever, cough, etc. The pain in her upper chest is worse with deep inspiration. Allergies and Home Medications Allergies Coded Allergies: buspirone HCl (Verified Allergy, Unknown, 08/14/15) etodolac (Verified Allergy, Unknown, 08/14/15) NSAIDS (Non-Steroidal Anti-Inflamma (Verified Adverse Reaction, Unknown, 08/14/15) Neuromuscular Blockers, Steroidal (Verified Adverse Reaction, Unknown, ) gabapentin (Verified Adverse Reaction, Unknown, 08/14/15) Home Medications Albuterol 8.5 Gm Hfa.aer.ad, 2 PUFF IH QID PRN, (Reported) NEEDED FOR SHORTNESS OF BREATH Albuterol Sulfate 2.5 Mg/3 Ml Vial.neb, 2.5 MG IH QID PRN, (Reported) NEEDED FOR CHRONIC BRONCHITIS Alprazolam 0.5 Mg Tablet, 0.5 MG PO QID, (Reported) NEEDED FOR ANXIETY Aspirin 325 Mg Tablet.dr, 325 MG PO DAILY, (Reported) Atenolol 100 Mg Tablet, 50 MG PO BID, (Reported) TAKES 1/2 (100MG) TABLET TWICE DAILY Calcium/Vitamin D 1 Each Tablet, 1 TAB PO DAILY, (Reported) Cetirizine Hcl 10 Mg Tablet, 10 MG PO DAILY, (Reported) Cholecalciferol (Vitamin D3) 1,000 Unit Tablet, 2,000 UNIT PO DAILY, (Reported) take 2 (1,000mg) tabs Cyanocobalamin 1,000 Mcg/Ml Vial, 1,000 MCG IM ONCE MONTHLY, (Reported) Cyclobenzaprine Hcl 10 Mg Tablet, 10 MG PO BID PRN, (Reported) NEEDED FOR MUSCLE SPASMS Dicyclomine Hcl 20 Mg Tablet, 20 MG PO QID PRN, (Reported) NEEDED FOR IRRITABLE BOWEL SYNDROME Ergocalciferol 50,000 Unit Capsule, 50,000 UNIT PO ONCE WEEKLY, (Reported) Fluticasone Propionate 16 Gm [place], 1 SPRAY NSEACH BID, (Reported) Fluticasone/Salmeterol 1 Each Blst.w.dev, 1 EACH IH BID, (Reported) Guaifenesin 400 Mg Tablet, 400 MG PO Q4H PRN, (Reported) NEEDED FOR CONGESTION [place] 3 Polyunsat Fatty Acids 1,000 Mg Cap, 1,000 MG PO DAILY, (Reported) Omeprazole 40 Mg Capsule.dr, 40 MG PO DAILY, (Reported) Ranitidine Hcl 150 Mg Tablet, 150 MG PO BID, (Reported) Tramadol Hcl 50 Mg Tablet, 50 MG PO Q6H PRN, (Reported) NEEDED FOR PAIN Review of Systems Constitutional: no symptoms reported EENTM: No Symptoms Reported Respiratory: No Symptoms Reported Cardiovascular: See HPI Gastrointestinal: See HPI Genitourinary: No Symptoms Reported Musculoskeletal: see HPI Skin: no symptoms reported Psychiatric/Neurological: See HPI, Anxiety Endocrine: No Symptoms Reported Past Wbiqnjn-Hhnjse-Esicqh Hx Patient Social History Alcohol Use: Denies Use Recreational Drug Use: No Type Used: Cigarettes Recent Foreign Travel: No Contact w/Someone Who Travel: No Recent Infectious Disease Expo: No Recent Hopitalizations: No Immunizations Up To Date Date of Pneumonia Vaccine: Jun 07, 2016 Date of Influenza Vaccine: Jun 07, 2016 Seasonal Allergies Seasonal Allergies: Yes Surgeries History of Surgeries: Yes (HERNIA REPAIR, OVARIAN CYST REMOVAL, C/S X2, oral) Surgeries: Abdominal, Appendectomy, Section, Gallbladder, Hysterectomy , Oophorectomy Respiratory History of Respiratory Disorde: Yes (tobaccoism) Respiratory Disorders: Asthma, COPD Cardiovascular History of Cardiac Disorders: Yes Cardiac Disorders: Chronic Edema/Swelling, Deep Vein Thrombosis, High Cholesterol, Hypertension Neurological History of Neurological Disord: Yes (PSEUDO SEIZURES ) Neurological Disorders: Seizure Disorder 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 System : No Hx 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 Disorders: Yes 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, 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 Genitourinary History of Genitourinary Disor: No Gastrointestinal History of Gastrointestinal Di: Yes (CHOKES EASILY) Gastrointestinal Disorders: Gastroesophageal Reflux, Hiatal Hernia, Ulcer, Gall Bladder Disease, Irritable Bowel Musculoskeletal History of Musculoskeletal Dis: Yes (CHRONIC KNEE AND HIP PAIN, spinal stenosis ) Musculoskeletal Disorders: Arthritis, Chronic Back Pain Endocrine History of Endocrine Disorders: No HEENT History of HEENT Disorders: No Cancer History of Cancer: No Psychosocial History of Psychiatric Problem: Yes Behavioral Health Disorders: Pseudo Seizures, Anxiety Integumentary History of Skin or Integumenta: No Blood Transfusions History of Blood Disorders: No Adverse Reaction to a Blood Tr: No Family Medical History Significant Family History: No Pertinent Family Hx Physical Exam Vital Signs Vital Sign - Last 12Hours 08/11/17 07:08 Temp 97.6 Pulse 102 Resp 18 B/P (MAP) 173/123 Pulse Ox 95 O2 Delivery Room Air Capillary Refill : Less Than 3 Seconds General Appearance: WD/WN, Anxious, Mild Distress HEENT: PERRL/EOMI, Normal ENT Inspection, Other (oropharynx somewhat dry) Neck: Normal Inspection Respiratory: Lungs Clear, Normal Breath Sounds, No Accessory Muscle Use, No Respiratory Distress Cardiovascular: No Edema, No Murmur, Tachycardia Gastrointestinal: Normal Bowel Sounds, Soft, Tenderness (epigastrium) Extremity: Normal Inspection, Non Tender, No Calf Tenderness, No Pedal Edema, Other (negative [place]ita) Neurologic/Psychiatric: Alert, Oriented x3, No Motor/Sensory Deficits, dipper operator II- XII Norm as Tested, Other (anxious) Skin: Normal Color, Warm/Dry Progress/Results/Core Measures Results/Orders Lab Results Laboratory Tests Test 08/11/17 07:15 08/11/17 08:23 08/11/17 09:20 Range/Units White Blood Count 15.3 H 4.3-11.0 10^3/uL Red Blood Count 5.26 4.35-5.85 10^6/uL Hemoglobin 15.7 11.5-16.0 G/DL Hematocrit 46 35-52 % Mean Corpuscular Volume 87 80-99 FL Mean Corpuscular Hemoglobin 30 25-34 PG Mean Corpuscular Hemoglobin Concent 34 32-36 G/DL Red Cell Distribution Width 13.5 10.0-14.5 % Platelet Count 250 130-400 10^3/uL Mean Platelet Volume 8.9 7.4-10.4 FL Neutrophils (%) (Auto) 76 H 42-75 % Lymphocytes (%) (Auto) 14 12-44 % Monocytes (%) (Auto) 9 0-12 % Eosinophils (%) (Auto) 1 0-10 % Basophils (%) (Auto) 0 0-10 % Neutrophils # (Auto) 11.7 H 1.8-7.8 X 10^3 Lymphocytes # (Auto) 2.1 1.0-4.0 X 10^3 Monocytes # (Auto) 1.3 H 0.0-1.0 X 10^3 Eosinophils # (Auto) 0.2 0.0-0.3 10^3/uL Basophils # (Auto) 0.0 0.0-0.1 10^3/uL Neutrophils % (Manual) 76 % Lymphocytes % (Manual) 15 % Monocytes % (Manual) 9 % Eosinophils % (Manual) 0 % Basophils % (Manual) 0 % Band Neutrophils 0 % Blood Morphology Comment NORMAL Prothrombin Time 11.9 L 12.2-14.7 SEC INR Comment 0.9 0.8-1.4 Activated Partial Thromboplast Time 35 24-35 SEC Sodium Level 138 135-145 MMOL/L Potassium Level 3.9 3.6-5.0 MMOL/L Chloride Level 101 98-107 MMOL/L Carbon Dioxide Level 23 21-32 MMOL/L Anion Gap 14 5-14 MMOL/L Blood Urea Nitrogen 8 7-18 MG/DL Creatinine 0.79 0.60-1.30 MG/DL Estimat Glomerular Filtration Rate > 60 BUN/Creatinine Ratio 10 Glucose Level 146 H 70-105 MG/DL Calcium Level 9.7 8.5-10.1 MG/DL Magnesium Level 2.1 1.8-2.4 MG/DL Total Bilirubin 0.3 0.1-1.0 MG/DL Aspartate Amino Transf (AST/SGOT) 15 5-34 U/L Alanine Aminotransferase (ALT/SGPT) 19 0-55 U/L Alkaline Phosphatase 92 40-136 U/L Myoglobin 28.7 10.0-92.0 NG/ML Troponin I < 0.30 < 0.30 <0.30 NG/ML C-Reactive Protein High Sensitivity 3.51 H 0.00-0.50 MG/DL Total Protein 8.1 6.4-8.2 GM/DL Albumin 4.2 3.2-4.5 GM/DL Lipase 35 8-78 U/L Urine Color YELLOW Urine Clarity CLEAR Urine pH 8 5-9 Urine Specific [place] 1.015 L 1.016-1.022 Urine Protein 1+ H NEGATIVE Urine Glucose (UA) NEGATIVE NEGATIVE Urine Ketones NEGATIVE NEGATIVE Urine Nitrite NEGATIVE NEGATIVE Urine Bilirubin NEGATIVE NEGATIVE Urine Urobilinogen NORMAL NORMAL MG/DL Urine Leukocyte Esterase NEGATIVE NEGATIVE Urine RBC (Auto) 2+ H NEGATIVE Urine RBC 0-2 /HPF Urine WBC NONE /HPF Urine Squamous Epithelial Cells NONE /HPF Urine Crystals NONE /LPF Urine Bacteria NEGATIVE /HPF Urine Casts NONE /LPF Urine Mucus NEGATIVE /LPF Urine Culture Indicated NO My Orders Orders - NENA ALONSO MD Cbc With Automated Diff (08/11/17 07:18) Magnesium (08/11/17 07:18) Chest 1 View, Ap/Pa Only (08/11/17 07:18) Ekg Tracing (08/11/17 07:18) Cardiac Profile 1 (08/11/17 07:18) Comprehensive Metabolic Panel (08/11/17 07:18) Myoglobin Serum (08/11/17 07:18) Protime With Inr (08/11/17 07:18) Partial Thromboplastin Time (08/11/17 07:18) O2 (08/11/17 07:18) Monitor-Rhythm Ecg Trace Only (08/11/17 07:18) Lipid Panel (08/12/17 06:00) Aspirin Chewable Tablet (Baby Aspirin Ch (08/11/17 07:30) Nitroglycerin 0.4 Mg Btl 25's (Nitrostat (08/11/17 07:30) Saline Lock/Iv-Start (08/11/17 07:18) Lorazepam Injection (Ativan Injection) (08/11/17 07:30) Manual Differential (08/11/17 07:15) Ua Culture If Indicated (08/11/17 07:45) Hs C Reactive Protein (08/11/17 07:48) Lidocaine 2% Viscous 15 Ml (Xylocaine Vi (08/11/17 08:00) Antacid Suspension (Mylanta Suspension (08/11/17 08:00) Lipase (08/11/17 07:55) Ketorolac Injection (Toradol Injection) (08/11/17 08:15) Orphenadrine Injection (Norflex Injectio (08/11/17 08:15) Troponin I (08/11/17 08:49) Ekg Tracing (08/11/17 08:49) Chest Pa/Lat (2 View) (08/11/17 08:56) Medications Given in ED Current Medications Medications Dose Ordered Sig/Tino Route Start Time Stop Time Status Last Admin Dose Admin Al Hydrox/Mg Hydrox/Simethicone 30 ml ONCE ONCE PO 08/11/17 08:00 08/11/17 08:01 DC 08/11/17 07:55 30 ML Aspirin 324 mg ONCE ONCE PO 08/11/17 07:30 08/11/17 07:31 DC 08/11/17 07:26 324 MG Ketorolac Tromethamine 30 mg ONCE ONCE IVP 08/11/17 08:15 08/11/17 08:16 DC 08/11/17 08:15 30 MG Lidocaine HCl 15 ml ONCE ONCE PO 08/11/17 08:00 08/11/17 08:01 DC 08/11/17 07:55 15 ML Lorazepam 0.5 mg ONCE ONCE IVP 08/11/17 07:30 08/11/17 07:31 DC 08/11/17 07:28 0.5 MG Nitroglycerin 0.4 mg UD PRN SL 08/11/17 07:30 08/11/17 07:53 DC 08/11/17 07:53 0.4 MG Orphenadrine Citrate 60 mg ONCE ONCE IV 08/11/17 08:15 08/11/17 08:16 DC 08/11/17 08:16 60 MG Vital Signs/I&O Vital Sign - Last 12Hours 08/11/17 08/11/17 07:08 08:01 Temp 97.6 Pulse 102 102 Resp 18 18 B/P (MAP) 173/123 130/93 Pulse Ox 95 92 O2 Delivery Room Air Room Air Blood Pressure Mean: 140 Progress Note #1: Time: 08:01 Progress Note Patient still has significant pain after Ativan and nitroglycerin. We will try GI cocktail. Patient had a notable leukocytosis greater than 15,000. CRP was added to help determine if this is from infectious source. UA will be collected and a repeat x-ray with 2 views in the department will be pursued. Progress Note #2: Time: 08:47 Progress Note Pain has now nearly resolved after Toradol and Norflex. Two view x-ray and UA are pending. Progress Note #3: Time: 10:02 Progress Note Two-view chest x-ray, repeat troponin, and repeat EKG were all normal. Patient states her pain is now completely gone with the exception of some pain that rebounds when she moves. As her ER visit progress, became more apparent that her pain was of a more musculoskeletal in nature. We discussed pain management at home and avoiding prolonged periods of time sitting at the computer. We also discussed smoking cessation. Patient was advised to follow-up as soon as possible to her primary care provider and seek referral to a assistant men's soccer coach for further risk stratification. She was advised to take her morning medications upon rib arriving home. ECG Initial ECG Impression Date: Aug 11, 2017 Initial ECG Impression Time: 07:08 Initial ECG Rate: 104 Initial ECG Rhythm: S.Tach Comment Sinus tachycardia with no ST elevation or depression. No abnormal intervals or axis deviation. EKG : EKG Time: 09:15 Rate: 95 Rhythm: Normal Sinus Intervals: Normal ECG Impression: Normal Comment Normal sinus rhythm with no ST elevation or depression. No abnormal intervals or axis deviation. Diagnostic Imaging Diagonstic Imaging: Xray Plain Films/CT/US/NM/MRI: chest Comments Chest x-ray viewed by me and report reviewed. See report below: NAME: MAHNAZ VANCE [facility] REC#: [id number] PT STATUS: REG ER : 1965 PHYSICIAN: NENA ALONSO MD ADMIT DATE: 08/11/17/ER Draft Date of Exam:08/11/17 CHEST 1 VIEW, AP/PA ONLY INDICATION: Chest pain. COMPARISON: 07/05/2016 FINDINGS: Upright portable view of the chest is obtained. Heart size is normal. The pulmonary vessels appear unremarkable. Lungs are clear. IMPRESSION: No acute abnormality is demonstrated. Dictated on workstation # [id number] Dict: 08/11/17 0735 Trans: 08/11/17 0744 [id number] Interpreted by: BREE COE DO Diagonstic Imaging: Xray Plain Films/CT/US/NM/MRI: chest Comments Repeat chest x-ray viewed by me and report reviewed. See report below: NAME: MAHNAZ VANCE [facility] REC#: [id number] PT STATUS: REG ER : 1965 PHYSICIAN: NENA ALONSO MD ADMIT DATE: 08/11/17/ER Draft Date of Exam:08/11/17 CHEST PA/LAT (2 VIEW) INDICATION: Chest pain radiating to arm. COMPARISON: Earlier same day at 7:28 AM. FINDINGS: Lungs are clear. Heterogeneous opacities projecting over the lung base on frontal radiograph are secondary to summation shadow of patient's breast. No pleural effusion or pneumothorax. Heart is normal in size. Normal pulmonary vasculature. Normal regional skeleton. IMPRESSION: 1. No acute cardiopulmonary process by PA and lateral chest radiography. Dictated on workstation # [id number] Dict: 08/11/1704 Trans: 08/11/17 0915 [id number] Interpreted by: VICENTE NOGUERA MD Departure Impression Impression: Primary Impression: Atypical chest pain Additional Impression: Leukocytosis Qualified Codes: D72.829 - Elevated white blood cell count, unspecified Disposition: 01 HOME, SELF-CARE Condition: Improved Departure-Patient Inst. Decision time for Depature: 09:45 Referrals: [facility] (PCP) Primary Care Physician BRETT JOHNSON (Family) Primary Care Physician Patient Instructions: Chest Pain (DC), White Blood Cell Count Differential Test Add. Discharge Instructions: Follow-up with your primary care provider as soon as possible. Please call early tomorrow morning to schedule an appointment. Seek referral to a assistant men's soccer coach for further evaluation at your follow-up appointment. You also need to have your blood work repeated to ensure your white blood cell count returns to normal. Use your medications at home as prescribed. Drink plenty of clear liquids. Work toward quitting smoking. Use your inhalers when you have chest tightness or discomfort. Return to the emergency room if symptoms return with similar intensity or you develop other worsening symptoms. You may take Tylenol (acetaminophen) up to 1000 mg every 6 hours as needed for pain. Use oral Toradol as previously prescribed sparingly for pain not controlled by Tylenol. A warm bath or shower may also help relax her muscles and relieve pain. All discharge instructions reviewed with patient and/or family. Voiced understanding. Copy Copies To 1: CAROLYN ALVARADO JOSHUA T MD Aug 11, 2017 07:50
[2017-08-11] MEDS ORDERED: LIDOCAINE 2% VISCOUS 15 ML UDC PO ONE (08:00)
[2017-08-11] MEDS ORDERED: ANTACID SUSP 30 ML UDC (MYLANTA) PO ONE (08:00)
[2017-08-11 08:01] VITALS: BP 130/93
[2017-08-11 08:07] LABS: BAND NEUTROPHILS 0 %; BASOPHILS % (MANUAL) 0 %; EOSINOPHILS % (MANUAL) 0 %; LYMPHOCYTES % (MANUAL) 15 %; NEUTROPHILS % (MANUAL) 76 %
[2017-08-11] MEDS ORDERED: KETOROLAC 30 MG/ML VIAL IVP ONE (08:15)
[2017-08-11] MEDS ORDERED: ORPHENADRINE 60 MG/2 ML (NORFLEX) AMP IV ONE (08:15)
[2017-08-11 08:41] LABS: BILIRUBIN,URINE NEGATIVE (NEGATIVE); KETONES,URINE NEGATIVE (NEGATIVE); LEUKOCYTE ESTERASE ,URINE NEGATIVE (NEGATIVE); NITRITE,URINE NEGATIVE (NEGATIVE); PH,URINE 8 (5-9); PROTEIN,URINE 1+ (NEGATIVE); UROBILINOGEN,URINE NORMAL (NORMAL)
--- NOTE | 2017-08-11 09:16 | Diagnostic Imaging Report ---
INDICATION: Chest pain radiating to arm. COMPARISON: Earlier same day at 7:28 AM. FINDINGS: Lungs are clear. Heterogeneous opacities projecting over the lung base on frontal radiograph are secondary to summation shadow of patient's breast. No pleural effusion or pneumothorax. Heart is normal in size. Normal pulmonary vasculature. Normal regional skeleton. IMPRESSION: 1. No acute cardiopulmonary process by PA and lateral chest radiography. Dictated by: Dictated on workstation # [id number]
[2017-08-11 10:08] VITALS: BP 138/97
== END 2017-08-11 10:08 | disposition home or self-care (01) ==
LOC: EDUNIT# 07:08 → ER 07:09
DX: R07.89 Other chest pain (principal); D72.829 Elevated white blood cell count, unspecified; F41.9 Anxiety disorder, unspecified; J44.9 Chronic obstructive pulmonary disease, unspecified; E78.00 Pure hypercholesterolemia, unspecified; I10 Essential (primary) hypertension; G40.909 Epilepsy, unspecified, not intractable, without status epilepticus; K21.9 Gastro-esophageal reflux disease without esophagitis; M19.90 Unspecified osteoarthritis, unspecified site; Z98.51 Tubal ligation status; Z86.718 Personal history of other venous thrombosis and embolism; Z79.82 Long term (current) use of aspirin; Z87.59 Personal history of other complications of pregnancy, childbirth and the puerperium; Z90.710 Acquired absence of both cervix and uterus; Z90.49 Acquired absence of other specified parts of digestive tract; Z87.19 Personal history of other diseases of the digestive system
CPT/HCPCS: 36415; 71010; 71020; 80053; 81000; 83690; 83735; 83874; 84484; 85007; 85027; 85610; 85730; 86141; 93005; 93041

== ENCOUNTER → 2017-08-30 | Outpatient (CLI) | payer MEDICAID ==
[~2017-08-30] VITALS: Ht 172.7 cm; Wt 86.2 kg
[~2017-08-30] MED LIST changes: +ALBU2.5V4 NEB; +ALPR0.5T7 PO; +ATEN100T PO; +CALC-654 PO; +CATHETER FLUSH 10 ML SYR IV PRN; +CNC1KV IJ; +FLUT16SP22 NS; +GUAI5SYR PO; +IBUP-1773 PO; +KETO10TA PO; +RANI150T11 PO; +REGADENOSON 0.4 MG/5 ML SYR (LEXISCAN) IV ONE; +RT-ALBUINH INH; +RT-ALBUTEROL SULF 2.5 MG/3 ML PRE-MIX VIAL IH PRN
[2017-08-30 07:58] VITALS: BP 146/99
--- NOTE | 2017-08-30 13:17 | STRESS TEST ---
DATE OF SERVICE: 08/30/2017 LEXISCAN MYOVIEW STRESS TEST Baseline heart rate is 88. Baseline blood pressure 146/99. Baseline EKG is sinus rhythm with no ischemic changes. In summary, the patient received 10.06 mCi of technetium-99 Myoview and the resting images were obtained. Then, the patient received 0.4 mg of Lexiscan followed by 30.4 mCi of technetium-99 Myoview. Throughout the test, there were no EKG changes. The patient has some shortness of breath, the resting and stress images were reviewed and compared in the short axis, horizontal long axis, and vertical long axis views. Review of the images showed breast attenuation with fixed defect at the mid to apical anterior wall with no significant reversibility. SSS is 4. SDS 0. TID value 1.1. On the gated images, the left ventricle appeared to be normal size with normal contractility. Calculated ejection fraction 62%. CONCLUSION: 1. The patient tolerated Lexiscan well, had some shortness of breath with Lexiscan injection. 2. Breast attenuation with typical female pattern with no significant ischemia was noted on SPECT images. 3. Normal left ventricular size with normal contractility. Calculated ejection fraction 62%. Job ID: [id number] DocumentID: [id number] Dictated Date: 08/30/2017 10:43:11 Drawing Instructor Date: 08/30/2017 12:48:22 Dictated By: HEBERT LAZO MD
== END ==
LOC: CARD 07:14
PROVIDERS: ATTEND Internal Medicine Cardiovascular Disease
DX: R07.9 Chest pain, unspecified (principal)
CPT/HCPCS: 78452; 93017

== ENCOUNTER → 2017-09-02 | Outpatient (CLI) | payer MEDICAID ==
[~2017-09-02] MED LIST changes: -CATHETER FLUSH 10 ML SYR IV PRN; -REGADENOSON 0.4 MG/5 ML SYR (LEXISCAN) IV ONE; -RT-ALBUTEROL SULF 2.5 MG/3 ML PRE-MIX VIAL IH PRN
== END ==
LOC: CARD 10:32
PROVIDERS: ATTEND Internal Medicine Cardiovascular Disease
DX: I31.3 Pericardial effusion (noninflammatory) (principal)
CPT/HCPCS: 93308

== ENCOUNTER 2017-09-07 12:14 | Emergency (ER) | payer MEDICAID ==
[~2017-09-07] VITALS: Ht 172.7 cm; Wt 86.2 kg
[2017-09-07] MEDS ORDERED: RT-ALBUTEROL/IPRATROPIUM 3 ML (DUONEB) VIAL INH ONE (12:45)
--- NOTE | 2017-09-07 12:51 | ED General ---
General Chief Complaint: General Problems/Pain Stated Complaint: FEELS LOW ON O2 Nursing Triage Note: patient reports was discharged from [facility] yesterday and didn't want to be released. states today she feels like her oxygen level is low. reports they wouldn't send her home with home oxygen Nursing Sepsis Screen: No Definite Risk History of Present Illness Time Seen by Provider: 12:30 Initial Comments 52-year-old female reports that she awoke today feeling lightheaded and short of breath. She used her inhaler 1 time at 0900. She has had no appetite this morning. She was discharged from [facility] yesterday after having a pericardial surgery by Dr. Hogue, for pericardial effusion. She was on heparin while hospitalized and is now on aspirin daily. She was started on amiodarone. She has a long-standing history of COPD and asthma. She is taking Lasix 20 mg daily, Potassium and on a 2 L fluid restriction daily. She reports urinating on a regular basis, no dysuria or hematuria reported. She has a walker at home for ambulation but she has not been using this. She presents with her son, who reports he feels she is having more of an anxiety attack this morning when she became short of air. She reports to be sleeping on a couch, which is uncomfortable for her to get true rest. She has a twin size bed that is on the floor and it is difficult for her to use. She has been a lifelong smoker approximately one half to one pack daily, she discontinued smoking approximately 7 days ago. Her son does smoke in the home, but only in his room with the door shut and window open. Timing/Duration: 1-3 Hours Severity: Mild Associated Systoms: No Chest Pain, Cough, No Diaphoresis, Loss of Appetite, Malaise, No Seizure, Shortness of Air, Syncope, Weakness Allergies and Home Medications Allergies Coded Allergies: buspirone HCl (Verified Allergy, Unknown, 08/14/15) etodolac (Verified Allergy, Unknown, 08/14/15) NSAIDS (Non-Steroidal Anti-Inflamma (Verified Adverse Reaction, Unknown, 08/14/15) Neuromuscular Blockers, Steroidal (Verified Adverse Reaction, Unknown, ) gabapentin (Verified Adverse Reaction, Unknown, 08/14/15) Home Medications Albuterol Sulfate 1 Puff Puff, 2 PUFF INH QID PRN for SHORTNESS OF BREATH, ( Reported) Albuterol Sulfate 2.5 Mg/3 Ml Vial.neb, 2.5 MG NEB Q4H PRN for SHORTNESS OF BREATH, (Reported) Alprazolam 0.5 Mg Tablet, 0.5 MG PO QID PRN for ANXIETY, (Reported) Atenolol 100 Mg Tablet, 50 MG PO BID, (Reported) TAKES 1/2 (100MG) TABLET Cetirizine HCl 10 Mg Tablet, 10 MG PO DAILY, (Reported) Cholecalciferol (Vitamin D3) 1,000 Unit Tablet, 1,000 UNIT PO BID, (Reported) Cyanocobalamin 1,000 Mcg/Ml Inj, 1,000 MCG IJ MONTHLY, (Reported) Dicyclomine HCl 20 Mg Tablet, 20 MG PO QID PRN for STOMACH UPSET, (Reported) Fluticasone Propionate 16 Gm Lamar.susp, 1 SPRAY NS BID, (Reported) Fluticasone/Salmeterol 1 Each Blst.w.dev, 1 PUFF IH BID, (Reported) Guaifenesin/Dextromethorphan 5 Ml Syrup, 10 ML PO Q6H PRN for COUGH, (Reported) Ibuprofen 600 Mg Tablet, 600 MG PO Q6H PRN for PAIN-MODERATE, #100 Ref 0 Prescribed by: HEBERT LAZO on 08/29/17 1300 Ketorolac Tromethamine 10 Mg Tablet, 10 MG PO Q6H PRN for CHEST PAIN, (Reported) [place] 3 Polyunsat Fatty Acids 1,000 Mg Cap, 2,000 MG PO BID, (Reported) Omeprazole 40 Mg Capsule.dr, 40 MG PO DAILY, (Reported) Ranitidine HCl 150 Mg Tablet, 150 MG PO BID, (Reported) Constitutional: see HPI, malaise, weakness Respiratory: see HPI, dyspnea on exertion, short of breath All Other Systems Reviewed Negative Unless Noted: Yes Past [id number] Hx Patient Social History Alcohol Use: Denies Use Recreational Drug Use: No Smoking Status: Former Smoker Type Used: Cigarettes Recent Foreign Travel: No Contact w/Someone Who Travel: No Recent Infectious Disease Expo: No Recent Hopitalizations: No Immunizations Up To Date Date of Pneumonia Vaccine: Jun 07, 2016 Date of Influenza Vaccine: Jun 07, 2016 Seasonal Allergies Seasonal Allergies: Yes Surgeries History of Surgeries: Yes (HERNIA REPAIR, OVARIAN CYST REMOVAL, C/S X2, oral) Surgeries: Abdominal, Appendectomy, Section, Gallbladder, Hysterectomy , Oophorectomy Respiratory History of Respiratory Disorde: Yes (Tobaccoism) Respiratory Disorders: Asthma, Pneumonia, Pulmonary Embolism, Sleep Apnea, COPD , Emphysema Currently Using CPAP: No Currently Using BIPAP: No Cardiovascular History of Cardiac Disorders: Yes (Pericardial effusion) Cardiac Disorders: Chronic Edema/Swelling, Deep Vein Thrombosis, High Cholesterol, Hypertension Neurological History of Neurological Disord: Yes (PSEUDO SEIZURES ) Neurological Disorders: Seizure Disorder 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 System Hx 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 Disorders: Yes 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, 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 Genitourinary History of Genitourinary Disor: No Gastrointestinal History of Gastrointestinal Di: Yes (CHOKES EASILY) Gastrointestinal Disorders: Gastroesophageal Reflux, Diverticulosis, Hiatal Hernia, Ulcer, Gall Bladder Disease, Irritable Bowel Musculoskeletal History of Musculoskeletal Dis: Yes (CHRONIC KNEE AND HIP PAIN, spinal stenosis ) Musculoskeletal Disorders: Osteoporosis, Arthritis, Chronic Back Pain Endocrine History of Endocrine Disorders: No HEENT History of HEENT Disorders: No Cancer History of Cancer: No Psychosocial History of Psychiatric Problem: Yes Behavioral Health Disorders: Pseudo Seizures, Anxiety Integumentary History of Skin or Integumenta: Yes Skin/Integumentary Disorders: Eczema Blood Transfusions History of Blood Disorders: No Adverse Reaction to a Blood Tr: No Reviewed Nursing Assessment Reviewed/Agree w Nursing PMH: Yes Family Medical History Significant Family History: No Pertinent Family Hx Family Medial History: FH: cirrhosis 19 MOTHER FH: liver cancer 19 MOTHER FHx: lung cancer 19 FATHER Hypertension 19 FATHER 19 MOTHER Physical Exam Vital Signs Vital Sign - Last 12Hours 09/07/ 12:20 Temp 97.4 Pulse 61 Resp 18 B/P (MAP) 155/95 (115) Pulse Ox 92 O2 Delivery Room Air Capillary Refill : Less Than 3 Seconds General Appearance: No Apparent Distress, WD/WN Eyes: Bilateral Eye Normal Inspection, Bilateral Eye PERRL, Bilateral Eye EOMI HEENT: PERRL/EOMI, TMs Normal, Normal ENT Inspection, Pharynx Normal Neck: Full Range of Motion, Normal Inspection, Non Tender, Supple Respiratory: Chest Non Tender, Lungs Clear, No Crackles, Decreased Breath Sounds, No Respiratory Distress, No Rhonci, No Wheezing, Other (mid to distal sternal incision, healing, well approximated, no errythema, d/c, warmth. ) Cardiovascular: Regular Rate, Rhythm, No Edema, No Murmur Gastrointestinal: Normal Bowel Sounds, No Pulsatile Mass, Non Tender, Soft Extremity: Normal Capillary Refill, No Calf Tenderness, No Pedal Edema Neurologic/Psychiatric: Alert, Oriented x3, No Motor/Sensory Deficits, Normal Mood/Affect Skin: Normal Color, Warm/Dry Progress/Results/Core Measures Suspected Sepsis Recent Fever Within 48 Hours: No Infection Criteria Present: None New/Unexplained Altered Menta: No Sepsis Screen: No Definite Risk Sepsis Diagnosis: SIRS Temperature:97.4 Pulse: 61 Respiratory Rate: 18 Blood Pressure 155 /95 Mean: 115 Results/Orders My Orders Orders - SURI HARRISON Albuterol/Ipra Inhalation Soln (Duoneb I (09/07/17 12:45) Svn Sm Volume Nebulizer Rt-Rfs (09/07/17 12:45) Medications Given in ED Current Medications Medications Dose Ordered Sig/Tino Route Start Time Stop Time Status Last Admin Dose Admin Albuterol/ Ipratropium 3 ml ONCE ONCE INH 09/07/17 12:45 09/07/17 12:46 DC 09/07/17 12:57 3 ML Vital Signs/I&O Vital Sign - Last 12Hours 09/07/17 09/07/17 12:20 12:59 Temp 97.4 Pulse 61 Resp 18 B/P (MAP) 155/95 (115) Pulse Ox 92 91 O2 Delivery Room Air Room Air Capillary Refill : Less Than 3 Seconds Blood Pressure Mean: 115 Progress Note : Time: 12:30 Progress Note Initial evaluation completed, reviewed notes from discharge at [facility]. The patient has not been compliant using her albuterol inhaler. Discussed the importance of doing this every 4 hours with a five-minute possible between inhalations. Patient reports anxiety is minimal at this point. Her SaO2 on room air has been between 92 and 95%. She denies feeling short of air at this time. She is taking half of a 325 mg aspirin since discharge, after reviewing her discharge instructions from [facility], she was encouraged to take a full 325 mg aspirin each day. She also voiced concern of using her albuterol since she was recently diagnosed with A. fib and is on amiodarone. Patient education and her discharge instructions encouraged that she continue using the albuterol while on the amiodarone. Will complete a DuoNeb breathing treatment and reevaluate. Based on her vital signs and exam, no need for chest x-ray or laboratory studies at this time. If no improvement after DuoNeb treatment will consider these. Patient discussed with Dr. Streeter, agreed with the treatment plan thus far. Patient talkative and SaO2 remains > 91% on room air. 1300 patient reports improvement in shortness of air after having the DuoNeb treatment. Discussed patient's exam, need for compliance with d/c instructions from [facility]. Her son reports he can obtain a recliner for her, to improve her sleeping siltation. She was encourage to call Dr. Hogue service if symptoms worsen. Discharge instructions and return precautions reviewed with the patient and her son. All questions answered. Departure Impression Impression: Primary Impression: COPD (chronic obstructive pulmonary disease) Qualified Codes: J41.0 - Simple chronic bronchitis Additional Impressions: Asthma Qualified Codes: J45.30 - Mild persistent asthma, uncomplicated Fatigue Qualified Codes: R53.83 - Other fatigue Disposition: 01 HOME, SELF-CARE Condition: Stable Departure-Patient Inst. Decision time for Depature: 13:20 Referrals: ESSIE BABCOCK MD (PCP) Primary Care Physician BRETT JOHNSON (Family) Primary Care Physician Patient Instructions: Pleuritic Chest Pain (DC), Shortness of Breath (Dyspnea) (DC) Add. Discharge Instructions: Sleep in recliner, with head elevated. Plan activities through day, with periods of rest. If no appetite, drink 1 can of boost or ensure twice daily. Continue 2 liter fluid restriction. If symptoms are not improving, notify surgeon at [facility]. Use walker at all times when ambulating, change from lying to sitting or standing slowly. Take your time when moving from sitting to standing. Follow-up with primary care provider early next week. Use albuterol inhaler 2 puffs 3 min apart or nebulized albuterol every 4 hours while awake. Return to emergency department if increased shortness of air, weakness or lightheadedness, new problems or concerns. All discharge instructions reviewed with patient and/or family. Voiced understanding. Copy Copies To 1: ESSIE BABCOCK MD, AMY ARNP Sep 07, 2017 12:51
[2017-09-07 13:38] VITALS: BP 155/95
== END 2017-09-07 13:38 | disposition home or self-care (01) ==
LOC: EDUNIT# 12:14 → ER 12:15
DX: J44.9 Chronic obstructive pulmonary disease, unspecified (principal); R53.83 Other fatigue; K21.9 Gastro-esophageal reflux disease without esophagitis; F41.9 Anxiety disorder, unspecified; G47.9 Sleep disorder, unspecified; Z87.19 Personal history of other diseases of the digestive system; Z90.710 Acquired absence of both cervix and uterus; Z98.51 Tubal ligation status; Z90.49 Acquired absence of other specified parts of digestive tract; Z87.01 Personal history of pneumonia (recurrent); Z86.711 Personal history of pulmonary embolism
CPT/HCPCS: 99281

== ENCOUNTER 2017-09-09 09:57 | Emergency (ER) | payer MEDICAID ==
[~2017-09-09] VITALS: Ht 172.7 cm; Wt 86.2 kg
--- OUTSIDE RECORDS SUMMARY | 2017-09-09 10:08 | XMS REPORT | Continuity of Care Document ---
Author Author [facility] Address Unknown Phone Unavailable Allergies Active Description Code Type Severity Reaction Onset Reported/Identified Relationship to Patient Clinical Status Yes BuSpar Drug Allergy N/A N/A 01/17/2009 Yes Lodine Drug Allergy N/A N/A 01/17/2009 Yes NSAIDS Drug Allergy N/A N/A 01/17/2009 Yes BuSpar Drug Allergy 01/17/2009 Yes Lodine Drug Allergy 01/17/2009 Yes NSAIDS Drug Allergy 01/17/2009 Yes Neurontin oral capsule 300 mg Drug Allergy 09/05/2011 Yes Augmentin 875-125 mg tablet Drug Allergy N/A N/A 02/03/2013 Yes buspirone HCl [id number] Drug Allergy Unknown N/A 08/14/2015 Yes etodolac [id number] Drug Allergy Unknown N/A 08/14/2015 Yes gabapentin [id number] Drug Allergy Unknown N/A 08/14/2015 Yes Neuromuscular Blockers, Steroidal [id number] Drug Allergy Unknown N/A 08/14 Yes NSAIDS (Non-Steroidal Anti-Inflamma [id number] Drug Allergy Unknown N/A Medications There is no data. Problems Date Dx Coded Attending Type Code Diagnosis Diagnosed By 07/09/2008 BRETT JOHNSON APRN 465.9 UPPER RESPIRATORY INFECTION 07/09/2008 BRETT JOHNSON APRN 465.9 UPPER RESPIRATORY INFECTION 07/09/2008 465.9 Upper Respiratory Infection 07/09/2008 465.9 Upper Respiratory Infection 07/09/2008 465.9 Upper Respiratory Infection 07/09/2008 465.9 Upper Respiratory Infection 07/09/2008 465.9 Upper Respiratory Infection 07/09/2008 465.9 Upper Respiratory Infection 07/09/2008 465.9 Upper Respiratory Infection 07/09/2008 465.9 Upper Respiratory Infection 07/09/2008 BRETT JOHNSON APRN 465.9 Upper Respiratory Infection 07/09/2008 BRETT JOHNSON APRN 465.9 Upper Respiratory Infection 07/09/2008 BRETT JOHNSON APRN 465.9 Upper Respiratory Infection 07/09/2008 BRETT JOHNSON APRN 465.9 Upper Respiratory Infection 07/09/2008 CAROLYN ALVARADO DO K 465.9 Upper Respiratory Infection 07/09/2008 BRETT JOHNSON APRN 465.9 Upper Respiratory Infection 07/09/2008 BRETT JOHNSON APRN 465.9 Upper Respiratory Infection 07/09/2008 ALVARADO CAROLYN IRWIN K 465.9 Upper Respiratory Infection 10/08/2008 BRETT JOHNSON APRN 462 PHARYNGITIS ACUTE 10/08/2008 BRETT JOHNSON APRN 462 PHARYNGITIS ACUTE 10/08/2008 462 Pharyngitis Acute 10/08/2008 462 Pharyngitis Acute 10/08/2008 462 Pharyngitis Acute 10/08/2008 462 Pharyngitis Acute 10/08/2008 462 Pharyngitis Acute 10/08/2008 462 Pharyngitis Acute 10/08/2008 462 Pharyngitis Acute 10/08/2008 462 Pharyngitis Acute 10/08/2008 BRETT JOHNSON APRN 462 Pharyngitis Acute 10/08/2008 BRETT JOHNSON APRN 462 Pharyngitis Acute 10/08/2008 BRETT JOHNSON APRN 462 Pharyngitis Acute 10/08/2008 BRETT JOHNSON APRN 462 Pharyngitis Acute 10/08/2008 ALVARADO DOTOMASZA K 462 Pharyngitis Acute 10/08/2008 BRETT JOHNSON APRN 462 Pharyngitis Acute 10/08/2008 BRETT JOHNSON APRN 462 Pharyngitis Acute 10/08/2008 ALVARADO DO CAROLYN K 462 Pharyngitis Acute 01/17/2009 BRETT JOHNSON APRN 296.9 MOOD DIS NOS 01/17/2009 BRETT JOHNSON APRN 401.9 HYPERTENSION, UNSPECIFIED ESSENTIAL 01/17/2009 BRETT JOHNSON APRN 296.9 MOOD DIS NOS 01/17/2009 BRETT JOHNSON APRN 401.9 HYPERTENSION, UNSPECIFIED ESSENTIAL 01/17/2009 296.9 MOOD DIS NOS 01/17/2009 401.9 HYPERTENSION, UNSPECIFIED ESSENTIAL 01/17/2009 296.9 MOOD DIS NOS 01/17/2009 401.9 HYPERTENSION, UNSPECIFIED ESSENTIAL 01/17/2009 296.9 MOOD DIS NOS 01/17/2009 401.9 HYPERTENSION, UNSPECIFIED ESSENTIAL 01/17/2009 296.9 MOOD DIS NOS 01/17/2009 401.9 HYPERTENSION, UNSPECIFIED ESSENTIAL 01/17/2009 296.9 MOOD DIS NOS 01/17/2009 401.9 HYPERTENSION, UNSPECIFIED ESSENTIAL 01/17/2009 296.9 MOOD DIS NOS 01/17/2009 401.9 HYPERTENSION, UNSPECIFIED ESSENTIAL 01/17/2009 296.9 MOOD DIS NOS 01/17/2009 401.9 HYPERTENSION, UNSPECIFIED ESSENTIAL 01/17/2009 296.9 MOOD DIS NOS 01/17/2009 401.9 HYPERTENSION, UNSPECIFIED ESSENTIAL 01/17/2009 BRETT JOHNSON APRN 296.9 MOOD DIS NOS 01/17/2009 BRETT JOHNSON APRN 401.9 HYPERTENSION, UNSPECIFIED ESSENTIAL 01/17/2009 BRETT JOHNSON APRN 296.9 MOOD DIS NOS 01/17/2009 BRETT JOHNSON APRN 401.9 HYPERTENSION, UNSPECIFIED ESSENTIAL 01/17/2009 BRETT JOHNSON APRN 296.9 MOOD DIS NOS 01/17/2009 BRETT JOHNSON APRN 401.9 HYPERTENSION, UNSPECIFIED ESSENTIAL 01/17/2009 BRETT JOHNSON APRN 296.9 MOOD DIS NOS 01/17/2009 BRETT JOHNSON APRN 401.9 HYPERTENSION, UNSPECIFIED ESSENTIAL 01/17/2009 ALVARADO DO, CAROLYN K 296.9 MOOD DIS NOS 01/17/2009 ALVARADO DO, CAROLYN K 401.9 HYPERTENSION, UNSPECIFIED ESSENTIAL 01/17/2009 BRETT JOHNSON APRN 296.9 MOOD DIS NOS 01/17/2009 BRETT JOHNSON APRN 401.9 HYPERTENSION, UNSPECIFIED ESSENTIAL 01/17/2009 BRETT JOHNSON APRN 296.9 MOOD DIS NOS 01/17/2009 BRETT JOHNSON APRN 401.9 HYPERTENSION, UNSPECIFIED ESSENTIAL 01/17/2009 ALVARADO DO, CAROLYN K 296.9 MOOD DIS NOS 01/17/2009 ALVARADO DO, CAROLYN K 401.9 HYPERTENSION, UNSPECIFIED ESSENTIAL 02/21/2009 BRETT JOHNSON APRN 477.9 ALLERGIC RHINITIS 02/21/2009 BRETT JOHNSON APRN 477.9 ALLERGIC RHINITIS 02/21/2009 477.9 Allergic Rhinitis 02/21/2009 477.9 Allergic Rhinitis 02/21/2009 477.9 Allergic Rhinitis 02/21/2009 477.9 Allergic Rhinitis 02/21/2009 477.9 Allergic Rhinitis 02/21/2009 477.9 Allergic Rhinitis 02/21/2009 477.9 Allergic Rhinitis 02/21/2009 477.9 Allergic Rhinitis 02/21/2009 BRETT JOHNSON APRN 477.9 Allergic Rhinitis 02/21/2009 BRETT JOHNSON APRN 477.9 Allergic Rhinitis 02/21/2009 BRETT JOHNSON APRN 477.9 Allergic Rhinitis 02/21/2009 BRETT JOHNSON APRN 477.9 Allergic Rhinitis 02/21/2009 ALVARADO DO, CAROLYN K 477.9 Allergic Rhinitis 02/21/2009 BRETT JOHNSON APRN 477.9 Allergic Rhinitis 02/21/2009 BRETT JOHNSON APRN 477.9 Allergic Rhinitis 02/21/2009 ALVARADO DO, CAROLYN K 477.9 Allergic Rhinitis 04/01/2009 BRETT JOHNSON APRN 296.90 MOOD DISORDER 04/01/2009 BRETT JOHNSON APRN 782.3 EDEMA 04/01/2009 BRETT JOHNSON APRN 296.90 MOOD DISORDER 04/01/2009 BRETT JOHNSON APRN 782.3 EDEMA 04/01/2009 296.90 MOOD DISORDER 04/01/2009 782.3 EDEMA 04/01/2009 296.90 MOOD DISORDER 04/01/2009 782.3 EDEMA 04/01/2009 296.90 MOOD DISORDER 04/01/2009 782.3 EDEMA 04/01/2009 296.90 MOOD DISORDER 04/01/2009 782.3 EDEMA 04/01/2009 296.90 MOOD DISORDER 04/01/2009 782.3 EDEMA 04/01/2009 296.90 MOOD DISORDER 04/01/2009 782.3 EDEMA 04/01/2009 296.90 MOOD DISORDER 04/01/2009 782.3 EDEMA 04/01/2009 296.90 MOOD DISORDER 04/01/2009 782.3 EDEMA 04/01/2009 BRETT JOHNSON APRN 296.90 MOOD DISORDER 04/01/2009 BRETT JOHNSON APRN 782.3 EDEMA 04/01/2009 BRETT JOHNSON APRN 296.90 MOOD DISORDER 04/01/2009 BRETT JOHNSON APRN 782.3 EDEMA 04/01/2009 BRETT JOHNSON APRN 296.90 MOOD DISORDER 04/01/2009 BRETT JOHNSON APRN 782.3 EDEMA 04/01/2009 BRETT JOHNSON APRN 296.90 MOOD DISORDER 04/01/2009 BRETT JOHNSON APRN 782.3 EDEMA 04/01/2009 ALVARADO DO, CAROLYN K 296.90 MOOD DISORDER 04/01/2009 ALVARADO DO, CAROLYN K 782.3 EDEMA 04/01/2009 BRETT JOHNSON APRN T 296.90 MOOD DISORDER 04/01/2009 BRETT JOHNSON APRN 782.3 EDEMA 04/01/2009 BRETT JOHNSON APRN T 296.90 MOOD DISORDER 04/01/2009 BRETT JOHNSON APRN 782.3 EDEMA 04/01/2009 ALVARADO DO, CAROLYN K 296.90 MOOD DISORDER 04/01/2009 ALVARADO DO, CAROLYN K 782.3 EDEMA 09/05/2009 BRETT JOHNSON APRN 112.1 CANDIDIASIS VAGINAL 09/05/2009 BRETT JOHNSON APRN 300.00 ANXIETY UNSPEC 09/05/2009 BRETT JOHNSON APRN 112.1 CANDIDIASIS VAGINAL 09/05/2009 BRETT JOHNSON APRN 300.00 ANXIETY UNSPEC 09/05/2009 112.1 Candidiasis Vaginal 09/05/2009 300.00 ANXIETY UNSPEC 09/05/2009 112.1 Candidiasis Vaginal 09/05/2009 300.00 ANXIETY UNSPEC 09/05/2009 112.1 Candidiasis Vaginal 09/05/2009 300.00 ANXIETY UNSPEC 09/05/2009 112.1 Candidiasis Vaginal 09/05/2009 300.00 ANXIETY UNSPEC 09/05/2009 112.1 Candidiasis Vaginal 09/05/2009 300.00 ANXIETY UNSPEC 09/05/2009 112.1 Candidiasis Vaginal 09/05/2009 300.00 ANXIETY UNSPEC 09/05/2009 112.1 Candidiasis Vaginal 09/05/2009 300.00 ANXIETY UNSPEC 09/05/2009 112.1 Candidiasis Vaginal 09/05/2009 300.00 ANXIETY UNSPEC 09/05/2009 BRETT JOHNSON APRN 112.1 Candidiasis Vaginal 09/05/2009 BRETT JOHNSON APRN 300.00 ANXIETY UNSPEC 09/05/2009 BRETT JOHNSON APRN 112.1 Candidiasis Vaginal 09/05/2009 BRETT JOHNSON APRN 300.00 ANXIETY UNSPEC 09/05/2009 BRETT JOHNSON APRN 112.1 Candidiasis Vaginal 09/05/2009 BRETT JOHNSON APRN 300.00 ANXIETY UNSPEC 09/05/2009 BRETT JOHNSON APRN 112.1 Candidiasis Vaginal 09/05/2009 BRETT JOHNSON APRN 300.00 ANXIETY UNSPEC 09/05/2009 ALVARADO DO, CAROLYN K 112.1 Candidiasis Vaginal 09/05/2009 ALVARADO DO, CAROLYN K 300.00 ANXIETY UNSPEC 09/05/2009 BRETT JOHNSON APRN 112.1 Candidiasis Vaginal 09/05/2009 BRETT JOHNSON APRN 300.00 ANXIETY UNSPEC 09/05/2009 BRETT JOHNSON APRN 112.1 Candidiasis Vaginal 09/05/2009 BRETT JOHNSON APRN 300.00 ANXIETY UNSPEC 09/05/2009 ALVARADO DO, CAROLYN K 112.1 Candidiasis Vaginal 09/05/2009 ALVARADO DO, CAROLYN K 300.00 ANXIETY UNSPEC 11/08/2010 BRETT JOHNSON APRN 272.4 HYPERLIPIDEMIA 11/08/2010 BRETT JOHNSON APRN 338.4 CHRONIC PAIN SYNDROME 11/08/2010 BRETT JOHNSON APRN 788.30 INCONTINENCE/ENURESIS NOS 11/08/2010 BRETT JOHNSON APRN 272.4 HYPERLIPIDEMIA 11/08/2010 BRETT JOHNSON APRN 338.4 CHRONIC PAIN SYNDROME 11/08/2010 BRETT JOHNSON APRN 788.30 INCONTINENCE/ENURESIS NOS 11/08/2010 272.4 HYPERLIPIDEMIA 11/08/2010 338.4 CHRONIC PAIN SYNDROME 11/08/2010 788.30 INCONTINENCE/ ENURESIS NOS 11/08/2010 272.4 HYPERLIPIDEMIA 11/08/2010 338.4 CHRONIC PAIN SYNDROME 11/08/2010 788.30 INCONTINENCE/ ENURESIS NOS 11/08/2010 272.4 HYPERLIPIDEMIA 11/08/2010 338.4 CHRONIC PAIN SYNDROME 11/08/2010 788.30 INCONTINENCE/ ENURESIS NOS 11/08/2010 272.4 HYPERLIPIDEMIA 11/08/2010 338.4 CHRONIC PAIN SYNDROME 11/08/2010 788.30 INCONTINENCE/ ENURESIS NOS 11/08/2010 272.4 HYPERLIPIDEMIA 11/08/2010 338.4 CHRONIC PAIN SYNDROME 11/08/2010 788.30 INCONTINENCE/ ENURESIS NOS 11/08/2010 272.4 HYPERLIPIDEMIA 11/08/2010 338.4 CHRONIC PAIN SYNDROME 11/08/2010 788.30 INCONTINENCE/ ENURESIS NOS 11/08/2010 272.4 HYPERLIPIDEMIA 11/08/2010 338.4 CHRONIC PAIN SYNDROME 11/08/2010 788.30 INCONTINENCE/ ENURESIS NOS 11/08/2010 272.4 HYPERLIPIDEMIA 11/08/2010 338.4 CHRONIC PAIN SYNDROME 11/08/2010 788.30 INCONTINENCE/ ENURESIS NOS 11/08/2010 BRETT JOHNSON APRN T 272.4 HYPERLIPIDEMIA 11/08/2010 BRETT JOHNSON APRN T 338.4 CHRONIC PAIN SYNDROME 11/08/2010 BRETT JOHNSON APRN T 788.30 INCONTINENCE/ENURESIS NOS 11/08/2010 BRETT JOHNSON APRN T 272.4 HYPERLIPIDEMIA 11/08/2010 BRETT JOHNSON APRN T 338.4 CHRONIC PAIN SYNDROME 11/08/2010 BRETT JOHNSON APRN T 788.30 INCONTINENCE/ENURESIS NOS 11/08/2010 BRETT JOHNSON APRN T 272.4 HYPERLIPIDEMIA 11/08/2010 BRETT JOHNSON APRN T 338.4 CHRONIC PAIN SYNDROME 11/08/2010 BRETT JOHNSON APRN T 788.30 INCONTINENCE/ENURESIS NOS 11/08/2010 BRETT JOHNSON APRN T 272.4 HYPERLIPIDEMIA 11/08/2010 BRETT JOHNSON APRN T 338.4 CHRONIC PAIN SYNDROME 11/08/2010 BRETT JOHNSON APRN 788.30 INCONTINENCE/ENURESIS NOS 11/08/2010 ALVARADO DO, CAROLYN K 272.4 HYPERLIPIDEMIA 11/08/2010 ALVARADO DO, CAROLYN K 338.4 CHRONIC PAIN SYNDROME 11/08/2010 ALVARADO DO, CAROLYN K 788.30 INCONTINENCE/ENURESIS NOS 11/08/2010 BRETT JOHNSON APRN T 272.4 HYPERLIPIDEMIA 11/08/2010 BRETT JOHNSON APRN T 338.4 CHRONIC PAIN SYNDROME 11/08/2010 BRETT JOHNSON APRN T 788.30 INCONTINENCE/ENURESIS NOS 11/08/2010 BRETT JOHNSON APRN T 272.4 HYPERLIPIDEMIA 11/08/2010 BRETT JOHNSON APRN T 338.4 CHRONIC PAIN SYNDROME 11/08/2010 BRETT JOHNSON APRN T 788.30 INCONTINENCE/ENURESIS NOS 11/08/2010 ALVARADO DO, CAROLYN K 272.4 HYPERLIPIDEMIA 11/08/2010 ALVARADO DO, CAROLYN K 338.4 CHRONIC PAIN SYNDROME 11/08/2010 ALVARADO DO, CAROLYN K 788.30 INCONTINENCE/ENURESIS NOS 11/09/2010 BRETT JOHNSON APRN V70.0 NORMAL ROUTINE HISTORY AND PHYSICAL 11/09/2010 BRETT JOHNSON APRN V70.0 NORMAL ROUTINE HISTORY AND PHYSICAL 11/09/2010 V70.0 Normal Routine History And Physical 11/09/2010 V70.0 Normal Routine History And Physical 11/09/2010 V70.0 Normal Routine History And Physical 11/09/2010 V70.0 Normal Routine History And Physical 11/09/2010 V70.0 Normal Routine History And Physical 11/09/2010 V70.0 Normal Routine History And Physical 11/09/2010 V70.0 Normal Routine History And Physical 11/09/2010 V70.0 Normal Routine History And Physical 11/09/2010 BRETT JOHNSON APRN V70.0 Normal Routine History And Physical 11/09/2010 BRETT JOHNSON APRN T V70.0 Normal Routine History And Physical 11/09/2010 BRETT JOHNSON APRN V70.0 Normal Routine History And Physical 11/09/2010 BRETT JOHNSON APRN V70.0 Normal Routine History And Physical 11/09/2010 ALVARADO TOMASZ IRWINA K V70.0 Normal Routine History And Physical 11/09/2010 BRETT JOHNSON APRN V70.0 Normal Routine History And Physical 11/09/2010 BRETT JOHNSON APRN V70.0 Normal Routine History And Physical 11/09/2010 ALVARADO TOMASZ IRWINA K V70.0 Normal Routine History And Physical 12/18/2010 BRETT JOHNSON APRN 780.79 OTHER MALAISE AND FATIGUE 12/18/2010 BRETT JOHNSON APRN 780.79 OTHER MALAISE AND FATIGUE 12/18/2010 780.79 OTHER MALAISE AND FATIGUE 12/18/2010 780.79 OTHER MALAISE AND FATIGUE 12/18/2010 780.79 OTHER MALAISE AND FATIGUE 12/18/2010 780.79 OTHER MALAISE AND FATIGUE 12/18/2010 780.79 OTHER MALAISE AND FATIGUE 12/18/2010 780.79 OTHER MALAISE AND FATIGUE 12/18/2010 780.79 OTHER MALAISE AND FATIGUE 12/18/2010 780.79 OTHER MALAISE AND FATIGUE 12/18/2010 BRETT JOHNSON APRN 780.79 OTHER MALAISE AND FATIGUE 12/18/2010 BRETT JOHNSON APRN 780.79 OTHER MALAISE AND FATIGUE 12/18/2010 BRETT JOHNSON APRN 780.79 OTHER MALAISE AND FATIGUE 12/18/2010 BRETT JOHNSON APRN 780.79 OTHER MALAISE AND FATIGUE 12/18/2010 ALVARADO DO CAROLYN K 780.79 OTHER MALAISE AND FATIGUE 12/18/2010 BRETT JOHNSON APRN 780.79 OTHER MALAISE AND FATIGUE 12/18/2010 BRETT JOHNSON APRN 780.79 OTHER MALAISE AND FATIGUE 12/18/2010 ALVARADO DO, CAROLYN K 780.79 OTHER MALAISE AND FATIGUE 01/09/2011 BRETT JOHNSON APRN 300.21 AN PANIC DIS W AGORA 01/09/2011 BRETT JOHNSON APRN 311 MO DEPRESS NOS 01/09/2011 BRETT JOHNSON APRN 300.21 AN PANIC DIS W AGORA 01/09/2011 BRETT JOHNSON APRN 311 MO DEPRESS NOS 01/09/2011 300.21 AN PANIC DIS W AGORA 01/09/2011 311 MO DEPRESS NOS 01/09/2011 300.21 AN PANIC DIS W AGORA 01/09/2011 311 MO DEPRESS NOS 01/09/2011 300.21 AN PANIC DIS W AGORA 01/09/2011 311 MO DEPRESS NOS 01/09/2011 300.21 AN PANIC DIS W AGORA 01/09/2011 311 MO DEPRESS NOS 01/09/2011 300.21 AN PANIC DIS W AGORA 01/09/2011 311 MO DEPRESS NOS 01/09/2011 300.21 AN PANIC DIS W AGORA 01/09/2011 311 MO DEPRESS NOS 01/09/2011 300.21 AN PANIC DIS W AGORA 01/09/2011 311 MO DEPRESS NOS 01/09/2011 300.21 AN PANIC DIS W AGORA 01/09/2011 311 MO DEPRESS NOS 01/09/2011 BRETT JOHNSON APRN 300.21 AN PANIC DIS W AGORA 01/09/2011 BRETT JOHNSON APRN 311 MO DEPRESS NOS 01/09/2011 BRETT JOHNSON APRN 300.21 AN PANIC DIS W AGORA 01/09/2011 BRETT JOHNSON APRN 311 MO DEPRESS NOS 01/09/2011 BRETT JOHNSON APRN 300.21 AN PANIC DIS W AGORA 01/09/2011 BRETT JOHNSON APRN 311 MO DEPRESS NOS 01/09/2011 BRETT JOHNSON APRN 300.21 AN PANIC DIS W AGORA 01/09/2011 BRETT JOHNSON APRN 311 MO DEPRESS NOS 01/09/2011 ALVARADO DO, CAROLYN K 300.21 AN PANIC DIS W AGORA 01/09/2011 ALVARADO DO, CAROLYN K 311 MO DEPRESS NOS 01/09/2011 BRETT JOHNSON APRN 300.21 AN PANIC DIS W AGORA 01/09/2011 BRETT JOHNSON APRN 311 MO DEPRESS NOS 01/09/2011 BRETT JOHNSON APRN 300.21 AN PANIC DIS W AGORA 01/09/2011 BRETT JOHNSON APRN 311 MO DEPRESS NOS 01/09/2011 ALVARADO DO, CAROLYN K 300.21 AN PANIC DIS W AGORA 01/09/2011 ALVARADO DO, CAROLYN K 311 MO DEPRESS NOS 01/10/2011 BRETT JOHNSON APRN 729.5 LEG PAIN 01/10/2011 BRETT JOHNSON APRN 780.57 SLEEP APNEA 01/10/2011 BRETT JOHNSON APRN 729.5 LEG PAIN 01/10/2011 BRETT JOHNSON APRN 780.57 SLEEP APNEA 01/10/2011 729.5 LEG PAIN 01/10/2011 780.57 SLEEP APNEA 01/10/2011 729.5 LEG PAIN 01/10/2011 780.57 SLEEP APNEA 01/10/2011 729.5 LEG PAIN 01/10/2011 780.57 SLEEP APNEA 01/10/2011 729.5 LEG PAIN 01/10/2011 780.57 SLEEP APNEA 01/10/2011 729.5 LEG PAIN 01/10/2011 780.57 SLEEP APNEA 01/10/2011 729.5 LEG PAIN 01/10/2011 780.57 SLEEP APNEA 01/10/2011 729.5 LEG PAIN 01/10/2011 780.57 SLEEP APNEA 01/10/2011 729.5 LEG PAIN 01/10/2011 780.57 SLEEP APNEA 01/10/2011 BRETT JOHNSON APRN 729.5 LEG PAIN 01/10/2011 BRETT JOHNSON APRN 780.57 SLEEP APNEA 01/10/2011 BRETT JOHNSON APRN 729.5 LEG PAIN 01/10/2011 BRETT JOHNSON APRN 780.57 SLEEP APNEA 01/10/2011 BRETT JOHNSON APRN 729.5 LEG PAIN 01/10/2011 BRETT JOHNSON APRN 780.57 SLEEP APNEA 01/10/2011 BRETT JOHNSON APRN 729.5 LEG PAIN 01/10/2011 BRETT JOHNSON APRN 780.57 SLEEP APNEA 01/10/2011 ALVARADO DO, CAROLYN K 729.5 LEG PAIN 01/10/2011 ALVARADO DO, CAROLYN K 780.57 SLEEP APNEA 01/10/2011 BRETT JOHNSON APRN 729.5 LEG PAIN 01/10/2011 BRETT JOHNSON APRN 780.57 SLEEP APNEA 01/10/2011 BRETT JOHNSON APRN 729.5 LEG PAIN 01/10/2011 BRETT JOHNSON APRN 780.57 SLEEP APNEA 01/10/2011 ALVARADO DO, CAROLYN K 729.5 LEG PAIN 01/10/2011 ALVARADO DO, CAROLYN K 780.57 SLEEP APNEA 01/11/2011 BRETT JOHNSON APRN 401.1 HYPERTENSION, BENIGN ESSENTIAL 01/11/2011 BRETT JOHNSON APRN 401.1 HYPERTENSION, BENIGN ESSENTIAL 01/11/2011 401.1 HYPERTENSION, BENIGN ESSENTIAL 01/11/2011 401.1 HYPERTENSION, BENIGN ESSENTIAL 01/11/2011 401.1 HYPERTENSION, BENIGN ESSENTIAL 01/11/2011 401.1 HYPERTENSION, BENIGN ESSENTIAL 01/11/2011 401.1 HYPERTENSION, BENIGN ESSENTIAL 01/11/2011 401.1 HYPERTENSION, BENIGN ESSENTIAL 01/11/2011 401.1 HYPERTENSION, BENIGN ESSENTIAL 01/11/2011 401.1 HYPERTENSION, BENIGN ESSENTIAL 01/11/2011 BRETT JOHNSON APRN 401.1 HYPERTENSION, BENIGN ESSENTIAL 01/11/2011 BRETT JOHNSON APRN 401.1 HYPERTENSION, BENIGN ESSENTIAL 01/11/2011 BRETT JOHNSON APRN 401.1 HYPERTENSION, BENIGN ESSENTIAL 01/11/2011 BRETT JOHNSON APRN 401.1 HYPERTENSION, BENIGN ESSENTIAL 01/11/2011 ALVARADO DO, CAROLYN K 401.1 HYPERTENSION, BENIGN ESSENTIAL 01/11/2011 BRETT JOHNSON APRN 401.1 HYPERTENSION, BENIGN ESSENTIAL 01/11/2011 BRETT JOHNSON APRN 401.1 HYPERTENSION, BENIGN ESSENTIAL 01/11/2011 ALVARADO DO, CAROLYN K 401.1 HYPERTENSION, BENIGN ESSENTIAL 01/31/2011 BRETT JOHNSON APRN 266.2 VITAMIN B12 DEFICIENCY 01/31/2011 BRETT JOHNSON APRN 719.46 PAIN IN JOINT INVOLVING LOWER LEG 01/31/2011 BRETT JOHNSON APRN 266.2 VITAMIN B12 DEFICIENCY 01/31/2011 BRETT JOHNSON APRN 719.46 PAIN IN JOINT INVOLVING LOWER LEG 01/31/2011 266.2 VITAMIN B12 DEFICIENCY 01/31/2011 719.46 Pain In Joint Involving Lower Leg 01/31/2011 266.2 VITAMIN B12 DEFICIENCY 01/31/2011 719.46 Pain In Joint Involving Lower Leg 01/31/2011 266.2 VITAMIN B12 DEFICIENCY 01/31/2011 719.46 Pain In Joint Involving Lower Leg 01/31/2011 266.2 VITAMIN B12 DEFICIENCY 01/31/2011 719.46 Pain In Joint Involving Lower Leg 01/31/2011 266.2 VITAMIN B12 DEFICIENCY 01/31/2011 719.46 Pain In Joint Involving Lower Leg 01/31/2011 266.2 VITAMIN B12 DEFICIENCY 01/31/2011 719.46 Pain In Joint Involving Lower Leg 01/31/2011 266.2 VITAMIN B12 DEFICIENCY 01/31/2011 719.46 Pain In Joint Involving Lower Leg 01/31/2011 266.2 VITAMIN B12 DEFICIENCY 01/31/2011 719.46 Pain In Joint Involving Lower Leg 01/31/2011 BRETT JOHNSON APRN 266.2 VITAMIN B12 DEFICIENCY 01/31/2011 BRETT JOHNSON APRN 719.46 Pain In Joint Involving Lower Leg 01/31/2011 BRETT JOHNSON APRN 266.2 VITAMIN B12 DEFICIENCY 01/31/2011 BRETT JOHNSON APRN 719.46 Pain In Joint Involving Lower Leg 01/31/2011 BRETT JOHNSON APRN 266.2 VITAMIN B12 DEFICIENCY 01/31/2011 BRETT JOHNSON APRN 719.46 Pain In Joint Involving Lower Leg 01/31/2011 BRETT JOHNSON APRN 266.2 VITAMIN B12 DEFICIENCY 01/31/2011 BRETT JOHNSON APRN 719.46 Pain In Joint Involving Lower Leg 01/31/2011 ALVARADO DO CAROLYN K 266.2 VITAMIN B12 DEFICIENCY 01/31/2011 ALVARADO DO CAROLYN K 719.46 Pain In Joint Involving Lower Leg 01/31/2011 BRETT JOHNSON APRN 266.2 VITAMIN B12 DEFICIENCY 01/31/2011 BRETT JOHNSON APRN 719.46 Pain In Joint Involving Lower Leg 01/31/2011 BRETT JOHNSON APRN 266.2 VITAMIN B12 DEFICIENCY 01/31/2011 BRETT JOHNSON APRN 719.46 Pain In Joint Involving Lower Leg 01/31/2011 ALVARADO DO, CAROLYN K 266.2 VITAMIN B12 DEFICIENCY 01/31/2011 ALVARADO DO, CAROLYN K 719.46 Pain In Joint Involving Lower Leg 03/23/2011 BRETT JOHNSON APRN 251.2 HYPOGLYCEMIA 03/23/2011 BRETT JOHNSON APRN 251.2 HYPOGLYCEMIA 03/23/2011 251.2 Hypoglycemia 03/23/2011 251.2 Hypoglycemia 03/23/2011 251.2 Hypoglycemia 03/23/2011 251.2 Hypoglycemia 03/23/2011 251.2 Hypoglycemia 03/23/2011 251.2 Hypoglycemia 03/23/2011 251.2 Hypoglycemia 03/23/2011 251.2 Hypoglycemia 03/23/2011 BRETT JOHNSON APRN 251.2 Hypoglycemia 03/23/2011 BRETT JOHNSON APRN 251.2 Hypoglycemia 03/23/2011 BRETT JOHNSON APRN 251.2 Hypoglycemia 03/23/2011 BRETT JOHNSON APRN 251.2 Hypoglycemia 03/23/2011 ALVARADO DO, CAROLYN K 251.2 Hypoglycemia 03/23/2011 BRETT JOHNSON APRN 251.2 Hypoglycemia 03/23/2011 BRETT JOHNSON APRN 251.2 Hypoglycemia 03/23/2011 ALVARADO DO, CAROLYN K 251.2 Hypoglycemia 05/21/2011 BRETT JOHNSON APRN 530.81 GERD 05/21/2011 BRETT JOHNSON APRN 553.3 HIATAL HERNIA 05/21/2011 BRETT JOHNSON APRN 578.1 HEMATOCHEZIA 05/21/2011 BRETT JOHNSON APRN 787.01 NAUSEA WITH VOMITING 05/21/2011 BRETT JOHNSON APRN 787.20 DYSPHAGIA, UNSPECIFIED 05/21/2011 BRETT JOHNSON APRN 789.07 ABDOMINAL PAIN GENERALIZED 05/21/2011 BRETT JOHNSON APRN 530.81 GERD 05/21/2011 BRETT JOHNSON APRN 553.3 HIATAL HERNIA 05/21/2011 BRETT JOHNSON APRN 578.1 HEMATOCHEZIA 05/21/2011 BRETT JOHNSON APRN 787.01 NAUSEA WITH VOMITING 05/21/2011 BRETT JOHNSON APRN 787.20 DYSPHAGIA, UNSPECIFIED 05/21/2011 BRETT JOHNSON APRN 789.07 ABDOMINAL PAIN GENERALIZED 05/21/2011 530.81 GERD 05/21/2011 553.3 HIATAL HERNIA 05/21/2011 578.1 Hematochezia 05/21/2011 787.01 Nausea With Vomiting 05/21/2011 787.20 Dysphagia, Unspecified 05/21/2011 789.07 Abdominal Pain Generalized 05/21/2011 530.81 GERD 05/21/2011 553.3 HIATAL HERNIA 05/21/2011 578.1 Hematochezia 05/21/2011 787.01 Nausea With Vomiting 05/21/2011 787.20 Dysphagia, Unspecified 05/21/2011 789.07 Abdominal Pain Generalized 05/21/2011 530.81 GERD 05/21/2011 553.3 HIATAL HERNIA 05/21/2011 578.1 Hematochezia 05/21/2011 787.01 Nausea With Vomiting 05/21/2011 787.20 Dysphagia, Unspecified 05/21/2011 789.07 Abdominal Pain Generalized 05/21/2011 530.81 GERD 05/21/2011 553.3 HIATAL HERNIA 05/21/2011 578.1 Hematochezia 05/21/2011 787.01 Nausea With Vomiting 05/21/2011 787.20 Dysphagia, Unspecified 05/21/2011 789.07 Abdominal Pain Generalized 05/21/2011 530.81 GERD 05/21/2011 553.3 HIATAL HERNIA 05/21/2011 578.1 Hematochezia 05/21/2011 787.01 Nausea With Vomiting 05/21/2011 787.20 Dysphagia, Unspecified 05/21/2011 789.07 Abdominal Pain Generalized 05/21/2011 530.81 GERD 05/21/2011 553.3 HIATAL HERNIA 05/21/2011 578.1 Hematochezia 05/21/2011 787.01 Nausea With Vomiting 05/21/2011 787.20 Dysphagia, Unspecified 05/21/2011 789.07 Abdominal Pain Generalized 05/21/2011 530.81 GERD 05/21/2011 553.3 HIATAL HERNIA 05/21/2011 578.1 Hematochezia 05/21/2011 787.01 Nausea With Vomiting 05/21/2011 787.20 Dysphagia, Unspecified 05/21/2011 789.07 Abdominal Pain Generalized 05/21/2011 530.81 GERD 05/21/2011 553.3 HIATAL HERNIA 05/21/2011 578.1 Hematochezia 05/21/2011 787.01 Nausea With Vomiting 05/21/2011 787.20 Dysphagia, Unspecified 05/21/2011 789.07 Abdominal Pain Generalized 05/21/2011 BRETT JOHNSON APRN 530.81 GERD 05/21/2011 BRETT JOHNSON APRN 553.3 HIATAL HERNIA 05/21/2011 BRETT JOHNSON APRN 578.1 Hematochezia 05/21/2011 BRETT JOHNSON APRN 787.01 Nausea With Vomiting 05/21/2011 BRETT JOHNSON APRN 787.20 Dysphagia, Unspecified 05/21/2011 BRETT JOHNSON APRN 789.07 Abdominal Pain Generalized 05/21/2011 BRETT JOHNSON APRN 530.81 GERD 05/21/2011 BRETT JOHNSON APRN 553.3 HIATAL HERNIA 05/21/2011 BRETT JOHNSON APRN 578.1 Hematochezia 05/21/2011 BRETT JOHNSON APRN 787.01 Nausea With Vomiting 05/21/2011 BRETT JOHNSON APRN 787.20 Dysphagia, Unspecified 05/21/2011 BRETT JOHNSON APRN 789.07 Abdominal Pain Generalized 05/21/2011 BRETT JOHNSON APRN 530.81 GERD 05/21/2011 BRETT JOHNSON APRN 553.3 HIATAL HERNIA 05/21/2011 BRETT JOHNSON APRN 578.1 Hematochezia 05/21/2011 BRETT JOHNSON APRN 787.01 Nausea With Vomiting 05/21/2011 BRETT JOHNSON APRN 787.20 Dysphagia, Unspecified 05/21/2011 BRETT JOHNSON APRN 789.07 Abdominal Pain Generalized 05/21/2011 BRETT JOHNSON APRN 530.81 GERD 05/21/2011 BRETT JOHNSON APRN 553.3 HIATAL HERNIA 05/21/2011 BRETT JOHNSON APRN 578.1 Hematochezia 05/21/2011 BRETT JOHNSON APRN 787.01 Nausea With Vomiting 05/21/2011 BRETT JOHNSON APRN 787.20 Dysphagia, Unspecified 05/21/2011 BRETT JOHNSON APRN 789.07 Abdominal Pain Generalized 05/21/2011 ALVARADO DO, CAROLYN K 530.81 GERD 05/21/2011 ALVARADO DO, CAROLYN K 553.3 HIATAL HERNIA 05/21/2011 ALVARADO DO, CAROLYN K 578.1 Hematochezia 05/21/2011 ALVARADO DO, CAROLYN K 787.01 Nausea With Vomiting 05/21/2011 ALVARADO DO, CAROLYN K 787.20 Dysphagia, Unspecified 05/21/2011 ALVARADO DO, CAROLYN K 789.07 Abdominal Pain Generalized 05/21/2011 BRETT JOHNSON APRN 530.81 GERD 05/21/2011 BRETT JOHNSON APRN 553.3 HIATAL HERNIA 05/21/2011 BRETT JOHNSON APRN 578.1 Hematochezia 05/21/2011 BRETT JOHNSON APRN 787.01 Nausea With Vomiting 05/21/2011 BRETT JOHNSON APRN 787.20 Dysphagia, Unspecified 05/21/2011 BRETT JOHNSON APRN 789.07 Abdominal Pain Generalized 05/21/2011 BRETT JOHNSON APRN 530.81 GERD 05/21/2011 BRETT JOHNSON APRN 553.3 HIATAL HERNIA 05/21/2011 BRETT JOHNSON APRN 578.1 Hematochezia 05/21/2011 BRETT JOHNSON APRN 787.01 Nausea With Vomiting 05/21/2011 BRETT JOHNSON APRN 787.20 Dysphagia, Unspecified 05/21/2011 BRETT JOHNSON APRN 789.07 Abdominal Pain Generalized 05/21/2011 ALVARADO DO, CAROLYN K 530.81 GERD 05/21/2011 ALVARADO DO, CAROLYN K 553.3 HIATAL HERNIA 05/21/2011 ALVARADO DO, CAROLYN K 578.1 Hematochezia 05/21/2011 ALVARADO DO, CAROLYN K 787.01 Nausea With Vomiting 05/21/2011 ALVARADO DO, CAROLYN K 787.20 Dysphagia, Unspecified 05/21/2011 ALVARADO DO, CAROLYN K 789.07 Abdominal Pain Generalized 05/30/2011 BRETT JOHNSON APRN 726.39 OTHER ENTHESOPATHY OF ELBOW REGION 05/30/2011 BRETT JOHNSON APRN 726.39 OTHER ENTHESOPATHY OF ELBOW REGION 05/30/2011 726.39 Other Enthesopathy Of Elbow Region 05/30/2011 726.39 Other Enthesopathy Of Elbow Region 05/30/2011 726.39 Other Enthesopathy Of Elbow Region 05/30/2011 726.39 Other Enthesopathy Of Elbow Region 05/30/2011 726.39 Other Enthesopathy Of Elbow Region 05/30/2011 726.39 Other Enthesopathy Of Elbow Region 05/30/2011 726.39 Other Enthesopathy Of Elbow Region 05/30/2011 726.39 Other Enthesopathy Of Elbow Region 05/30/2011 BRETT JOHNSON APRN 726.39 Other Enthesopathy Of Elbow Region 05/30/2011 BRETT JOHNSON APRN 726.39 Other Enthesopathy Of Elbow Region 05/30/2011 BRETT JOHNSON APRN 726.39 Other Enthesopathy Of Elbow Region 05/30/2011 BRETT JOHNSON APRN 726.39 Other Enthesopathy Of Elbow Region 05/30/2011 CAROLYN ALVARADO DO 726.39 Other Enthesopathy Of Elbow Region 05/30/2011 BRETT JOHNSON APRN 726.39 Other Enthesopathy Of Elbow Region 05/30/2011 BRETT JOHNSON APRN 726.39 Other Enthesopathy Of Elbow Region 05/30/2011 CAROLYN ALVARADO DO 726.39 Other Enthesopathy Of Elbow Region 06/25/2011 Ot 401.9 HYPERTENSION NOS 06/25/2011 Ot 496 CHR AIRWAY OBSTRUCT NEC 06/25/2011 Ot 530.81 ESOPHAGEAL REFLUX 06/25/2011 Ot 535.40 OTH SPECIFIED GASTRITIS,W/O MENTION OF H 06/25/2011 Ot 569.3 RECTAL ANAL HEMORRHAGE 06/25/2011 Ot 787.3 FLATUL/ ERUCTAT/GAS PAIN 06/25/2011 Ot 787.91 DIARRHEA 07/09/2011 BRETT JOHNSON APRN 535.50 GASTRITIS UNSPEC 07/09/2011 BRETT JOHNSON APRN 783.21 WEIGHT LOSS 07/09/2011 BRETT JOHNSON APRN V76.51 SPECIAL SCREENING FOR MALIGNANT NEOPLASMS COLON 07/09/2011 BRETT JOHNSON APRN 535.50 GASTRITIS UNSPEC 07/09/2011 BRETT JOHNSON APRN 783.21 WEIGHT LOSS 07/09/2011 BRETT JOHNSON APRN V76.51 SPECIAL SCREENING FOR MALIGNANT NEOPLASMS COLON 07/09/2011 535.50 Gastritis Unspec 07/09/2011 783.21 Weight Loss 07/09/2011 V76.51 Special Screening For Malignant Neoplasms Colon 07/09/2011 535.50 Gastritis Unspec 07/09/2011 783.21 Weight Loss 07/09/2011 V76.51 Special Screening For Malignant Neoplasms Colon 07/09/2011 535.50 Gastritis Unspec 07/09/2011 783.21 Weight Loss 07/09/2011 V76.51 Special Screening For Malignant Neoplasms Colon 07/09/2011 535.50 Gastritis Unspec 07/09/2011 783.21 Weight Loss 07/09/2011 V76.51 Special Screening For Malignant Neoplasms Colon 07/09/2011 535.50 Gastritis Unspec 07/09/2011 783.21 Weight Loss 07/09/2011 V76.51 Special Screening For Malignant Neoplasms Colon 07/09/2011 535.50 Gastritis Unspec 07/09/2011 783.21 Weight Loss 07/09/2011 V76.51 Special Screening For Malignant Neoplasms Colon 07/09/2011 535.50 Gastritis Unspec 07/09/2011 783.21 Weight Loss 07/09/2011 V76.51 Special Screening For Malignant Neoplasms Colon 07/09/2011 535.50 Gastritis Unspec 07/09/2011 783.21 Weight Loss 07/09/2011 V76.51 Special Screening For Malignant Neoplasms Colon 07/09/2011 BRETT JOHNSON APRN 535.50 Gastritis Unspec 07/09/2011 BRETT JOHNSON APRN 783.21 Weight Loss 07/09/2011 BRETT JOHNSON APRN V76.51 Special Screening For Malignant Neoplasms Colon 07/09/2011 BRETT JOHNSON APRN 535.50 Gastritis Unspec 07/09/2011 BRETT JOHNSON APRN 783.21 Weight Loss 07/09/2011 BRETT JOHNSON APRN V76.51 Special Screening For Malignant Neoplasms Colon 07/09/2011 BRETT JOHNSON APRN 535.50 Gastritis Unspec 07/09/2011 BRETT JOHNSON APRN 783.21 Weight Loss 07/09/2011 BRETT JOHNSON APRN V76.51 Special Screening For Malignant Neoplasms Colon 07/09/2011 BRETT JOHNSON APRN 535.50 Gastritis Unspec 07/09/2011 BRETT JOHNSON APRN 783.21 Weight Loss 07/09/2011 BRETT JOHNSON APRN V76.51 Special Screening For Malignant Neoplasms Colon 07/09/2011 ALVARADO DO, CAROLYN K 535.50 Gastritis Unspec 07/09/2011 ALVARADO DO, CAROLYN K 783.21 Weight Loss 07/09/2011 ALVARADO DO, CAROLYN K V76.51 Special Screening For Malignant Neoplasms Colon 07/09/2011 BRETT JOHNSON APRN 535.50 Gastritis Unspec 07/09/2011 BRETT JOHNSON APRN 783.21 Weight Loss 07/09/2011 BRETT JOHNSON APRN V76.51 Special Screening For Malignant Neoplasms Colon 07/09/2011 BRETT JOHNSON APRN 535.50 Gastritis Unspec 07/09/2011 BRETT JOHNSON APRN 783.21 Weight Loss 07/09/2011 BRETT JOHNSON APRN V76.51 Special Screening For Malignant Neoplasms Colon 07/09/2011 ALVARADO CAROLYN IRWIN K 535.50 Gastritis Unspec 07/09/2011 ALVARADO DO, CAROLYN K 783.21 Weight Loss 07/09/2011 ALVARADO DO, CAROLYN K V76.51 Special Screening For Malignant Neoplasms Colon 09/01/2011 Ot 724.2 LUMBAGO 09/05/2011 BRETT JOHNSON APRN 724.2 LUMBAGO/ LOW BACK PAIN 09/05/2011 BRETT JOHNSON APRN 724.2 LUMBAGO/ LOW BACK PAIN 09/05/2011 724.2 LUMBAGO/ LOW BACK PAIN 09/05/2011 724.2 LUMBAGO/ LOW BACK PAIN 09/05/2011 724.2 LUMBAGO/ LOW BACK PAIN 09/05/2011 724.2 LUMBAGO/ LOW BACK PAIN 09/05/2011 724.2 LUMBAGO/ LOW BACK PAIN 09/05/2011 724.2 LUMBAGO/ LOW BACK PAIN 09/05/2011 724.2 LUMBAGO/ LOW BACK PAIN 09/05/2011 724.2 LUMBAGO/ LOW BACK PAIN 09/05/2011 BRETT JOHNSON APRN 724.2 LUMBAGO/ LOW BACK PAIN 09/05/2011 BRETT JOHNSON APRN 724.2 LUMBAGO/ LOW BACK PAIN 09/05/2011 BRETT JOHNSON APRN 724.2 LUMBAGO/ LOW BACK PAIN 09/05/2011 BRETT JOHNSON APRN 724.2 LUMBAGO/ LOW BACK PAIN 09/05/2011 ALVARADO DO, CAROLYN K 724.2 LUMBAGO/ LOW BACK PAIN 09/05/2011 BRETT JOHNSON APRN 724.2 LUMBAGO/ LOW BACK PAIN 09/05/2011 BRETT JOHNSON APRN 724.2 LUMBAGO/ LOW BACK PAIN 09/05/2011 ALVARADO DO, CAROLYN K 724.2 LUMBAGO/ LOW BACK PAIN 10/17/2011 BRETT JOHNSON APRN 466.0 BRONCHITIS, ACUTE 10/17/2011 BRETT JOHNSON APRN 466.0 BRONCHITIS, ACUTE 10/17/2011 466.0 Bronchitis, Acute 10/17/2011 466.0 Bronchitis, Acute 10/17/2011 466.0 Bronchitis, Acute 10/17/2011 466.0 Bronchitis, Acute 10/17/2011 466.0 Bronchitis, Acute 10/17/2011 466.0 Bronchitis, Acute 10/17/2011 466.0 Bronchitis, Acute 10/17/2011 466.0 Bronchitis, Acute 10/17/2011 BRETT JOHNSON APRN T 466.0 Bronchitis, Acute 10/17/2011 BRETT JOHNSON APRN T 466.0 Bronchitis, Acute 10/17/2011 ELIZABETH SCHNEIDER, BRETT T 466.0 Bronchitis, Acute 10/17/2011 BRETT JOHNSON APRN T 466.0 Bronchitis, Acute 10/17/2011 ALVARADO DO, CAROLYN K 466.0 Bronchitis, Acute 10/17/2011 BRETT JOHNSON APRN T 466.0 Bronchitis, Acute 10/17/2011 BRETT JOHNSON APRN T 466.0 Bronchitis, Acute 10/17/2011 ALVARADO DO CAROLYN K 466.0 Bronchitis, Acute 04/29/2012 Ot 523.30 AGGRESSIVE PERIODONTITIS, UNSPECIFIED 05/21/2012 Ot 276.50 VOLUME DEPLETION, UNSPECIFIED 05/21/2012 Ot 787.91 DIARRHEA 08/22/2012 BRETT JOHNSON APRN 345.90 SEIZURE DISORDER 08/22/2012 BRETT JOHNSON APRN 345.90 SEIZURE DISORDER 08/22/2012 345.90 SEIZURE DISORDER 08/22/2012 345.90 SEIZURE DISORDER 08/22/2012 345.90 SEIZURE DISORDER 08/22/2012 345.90 SEIZURE DISORDER 08/22/2012 345.90 SEIZURE DISORDER 08/22/2012 345.90 SEIZURE DISORDER 08/22/2012 345.90 SEIZURE DISORDER 08/22/2012 345.90 SEIZURE DISORDER 08/22/2012 BRETT JOHNSON APRN T 345.90 SEIZURE DISORDER 08/22/2012 BRETT JOHNSON APRN T 345.90 SEIZURE DISORDER 08/22/2012 BRETT JOHNSON APRN 345.90 SEIZURE DISORDER 08/22/2012 BRETT JOHNSON APRN T 345.90 SEIZURE DISORDER 08/22/2012 ALVARADO DO CAROLYN K 345.90 SEIZURE DISORDER 08/22/2012 BRETT JOHNSON APRN 345.90 SEIZURE DISORDER 08/22/2012 BRETT JOHNSON APRN 345.90 SEIZURE DISORDER 08/22/2012 ALVARADO DO CAROLYN K 345.90 SEIZURE DISORDER 12/24/2012 Ot 729.5 PAIN IN LIMB 12/24/2012 Ot 845.10 SPRAIN OF FOOT NOS 12/24/2012 Ot E000.8 OTHER EXTERNAL CAUSE STATUS 12/24/2012 Ot E001.0 ACTIVITIES INVOLVING WALKING, MARCHING A 12/24/2012 Ot E849.0 ACCIDENT IN HOME 12/24/2012 Ot E880.9 FALL ON STAIR/STEP NEC 02/03/2013 719.47 PAIN- FOOT 02/03/2013 790.29 HYPERGLYCEMIA 02/03/2013 719.47 PAIN- FOOT 02/03/2013 790.29 HYPERGLYCEMIA 02/03/2013 719.47 PAIN- FOOT 02/03/2013 790.29 HYPERGLYCEMIA 02/03/2013 719.47 PAIN- FOOT 02/03/2013 790.29 HYPERGLYCEMIA 02/03/2013 719.47 PAIN- FOOT 02/03/2013 790.29 HYPERGLYCEMIA 02/03/2013 BRETT JOHNSON APRN 719.47 PAIN- FOOT 02/03/2013 BRETT JOHNSON APRN 790.29 HYPERGLYCEMIA 02/03/2013 BRETT JOHNSON APRN 719.47 PAIN- FOOT 02/03/2013 BRETT JOHNSON APRN 790.29 HYPERGLYCEMIA 02/03/2013 BRETT JOHNSON APRN 719.47 PAIN- FOOT 02/03/2013 BRETT JOHNSON APRN 790.29 HYPERGLYCEMIA 02/03/2013 BRETT JOHNSON APRN 719.47 PAIN- FOOT 02/03/2013 BRETT JOHNSON APRN 790.29 HYPERGLYCEMIA 02/03/2013 ALVARADO DOTOMASZA K 719.47 PAIN- FOOT 02/03/2013 ALVARADO DO CAROLYN K 790.29 HYPERGLYCEMIA 02/03/2013 BRETT JOHNSON APRN 719.47 PAIN- FOOT 02/03/2013 BRETT JOHNSON APRN 790.29 HYPERGLYCEMIA 02/03/2013 BRETT JOHNSON APRN 719.47 PAIN- FOOT 02/03/2013 BRETT JOHNSON APRN 790.29 HYPERGLYCEMIA 02/03/2013 ALVARADO DO, CAROLYN K 719.47 PAIN- FOOT 02/03/2013 ALVARADO DO, CAROLYN K 790.29 HYPERGLYCEMIA 03/16/2013 LE GREEN, STANLEY Soto Ot 787.20 DYSPHAGIA, UNSPECIFIED 03/24/2013 789.01 ABDOMINAL PAIN RIGHT UPPER QUADRANT 03/24/2013 789.01 ABDOMINAL PAIN RIGHT UPPER QUADRANT 03/24/2013 BRETT JOHNSON APRN 789.01 ABDOMINAL PAIN RIGHT UPPER QUADRANT 03/24/2013 BRETT JOHNSON APRN 789.01 ABDOMINAL PAIN RIGHT UPPER QUADRANT 03/24/2013 BRETT JOHNSON APRN 789.01 ABDOMINAL PAIN RIGHT UPPER QUADRANT 03/24/2013 BRETT JOHNSON APRN 789.01 ABDOMINAL PAIN RIGHT UPPER QUADRANT 03/24/2013 ALVARADO DO, CAROLYN K 789.01 ABDOMINAL PAIN RIGHT UPPER QUADRANT 03/24/2013 BRETT JOHNSON APRN 789.01 ABDOMINAL PAIN RIGHT UPPER QUADRANT 03/24/2013 BRETT JOHNSON APRN 789.01 ABDOMINAL PAIN RIGHT UPPER QUADRANT 03/24/2013 ALVARADO DO, CAROLYN K 789.01 ABDOMINAL PAIN RIGHT UPPER QUADRANT 04/06/2013 728.85 SPASM OF MUSCLE 04/06/2013 BRETT JOHNSON APRN 728.85 SPASM OF MUSCLE 04/06/2013 BRETT JOHNSON APRN 728.85 SPASM OF MUSCLE 04/06/2013 BRETT JOHNSON APRN 728.85 SPASM OF MUSCLE 04/06/2013 BRETT JOHNSON APRN 728.85 SPASM OF MUSCLE 04/06/2013 ALVARADO DO, CAROLYN K 728.85 SPASM OF MUSCLE 04/06/2013 BRETT JOHNSON APRN 728.85 SPASM OF MUSCLE 04/06/2013 BRETT JOHNSON APRN 728.85 SPASM OF MUSCLE 04/06/2013 ALVARADO DO, CAROLYN K 728.85 SPASM OF MUSCLE 06/23/2013 BRETT JOHNSON APRN 706.2 SEBACEOUS CYST 06/23/2013 BRETT JOHNSON APRN 706.2 SEBACEOUS CYST 06/23/2013 BRETT JOHNSON APRN 706.2 SEBACEOUS CYST 06/23/2013 BRETT JOHNSON APRN 706.2 SEBACEOUS CYST 06/23/2013 ALVARADO DO, CAROLYN K 706.2 SEBACEOUS CYST 06/23/2013 BRETT JOHNSON APRN 706.2 SEBACEOUS CYST 06/23/2013 BRETT JOHNSON APRN 706.2 SEBACEOUS CYST 06/23/2013 ALVARADO DO, CAROLYN K 706.2 SEBACEOUS CYST 10/26/2013 BRETT JOHNSON APRN 251.2 HYPOGLYCEMIA 10/26/2013 BRETT JOHNSON APRN V04.81 FLU SHOT 10/26/2013 ELIZABETH SCHNEIDERBRETT 251.2 HYPOGLYCEMIA 10/26/2013 ELIZABETH SCHNEIDERBRETT V04.81 FLU SHOT 10/26/2013 ELIZABETH SCHNEIDER BRETT Conti 251.2 HYPOGLYCEMIA 10/26/2013 ELIZABETH SEAFOOD PROCESS WORKER, BRETT T V04.81 FLU SHOT 10/26/2013 ALVARADO DO CAROLYN K 251.2 HYPOGLYCEMIA 10/26/2013 ALVARADO DO, CAROLYN K V04.81 FLU SHOT 10/26/2013 BRETT JOHNSON APRN Gall[place] 251.2 HYPOGLYCEMIA 10/26/2013 ELIZABETH SCHNEIDER BRETT Conti V04.81 FLU SHOT 10/26/2013 ELIZABETH MICHELLEN, BRETT Conti 251.2 HYPOGLYCEMIA 10/26/2013 ELIZABETH SCHNEIDER, BRETT Conti V04.81 FLU SHOT 10/26/2013 ALVARADO DO, CAROLYN K 251.2 HYPOGLYCEMIA 10/26/2013 ALVARADO DO, CAROLYN K V04.81 FLU SHOT 03/31/2014 BRETT JOHNSON APRN 719.45 PAIN- HIP 03/31/2014 ALVARADO DO, CAROLYN K 719.45 PAIN- HIP 03/31/2014 BRETT JOHNSON APRN 719.45 PAIN- HIP 03/31/2014 BRETT JOHNSON APRN [place] 719.45 PAIN- HIP 03/31/2014 ALVARADO DO, CAROLYN K 719.45 PAIN- HIP 10/08/2014 BRETT JOHNSON APRN 300.02 AN GEN ANXIETY 10/08/2014 BRETT JOHNSON APRN 311 MO DEPRESS NOS 10/08/2014 BRETT JOHNSON APRN 300.02 AN GEN ANXIETY 10/08/2014 BRETT JOHNSON APRN 311 MO DEPRESS NOS 10/08/2014 ALVARADO DO, CAROLYN K 300.02 AN GEN ANXIETY 10/08/2014 ALVARADO DO, CAROLYN K 311 MO DEPRESS NOS 01/12/2015 ALVARADO DO, CAROLYN K V06.1 TDAP DX 07/18/2015 Ot 783.21 07/18/2015 Ot 789.07 07/18/2015 Ot 722.10 07/18/2015 Ot 345.90 07/18/2015 LE GREEN, STANLEY Soto Ot V72.84 07/18/2015 BRETT JOHNSON Ot 789.00 07/18/2015 BRETT JOHNSON Ot 789.01 07/18/2015 LISE RAVI Ot F41.9 ANXIETY DISORDER, UNSPECIFIED 07/18/2015 LISE RAVI Ot M79.662 PAIN IN LEFT LOWER LEG 07/18/2015 LISE RAVI Ot R60.0 LOCALIZED EDEMA 07/18/2015 LISE RAVI Ot Z79.82 CORRECTION (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 07/18/2015 LISE RAVI Ot Z86.718 PERSONAL HISTORY OF OTHER VENOUS THROMBO 08/14/2015 MONA JIMENEZ DOA Geovanni Ot F17.210 NICOTINE DEPENDENCE, CIGARETTES, UNCOMPL 08/14/2015 MONA JIMENEZ DOA Geovanni Ot R10.11 RIGHT UPPER QUADRANT PAIN 08/14/2015 MONA JIMENEZ DOA Geovanni Ot R93.5 ABN FINDINGS ON DX IMAGING OF ABD REGION 08/14/2015 MONA JIMENEZ DOA K Ot Z90.49 ACQUIRED ABSENCE OF OTHER SPECIFIED PART 08/14/2015 MONA JIMENEZ DOA K Ot Z90.710 ACQUIRED ABSENCE OF BOTH CERVIX AND UTER 11/08/2015 CELESTE GREEN, NENA Conti Ot F17.210 NICOTINE DEPENDENCE, CIGARETTES, UNCOMPL 11/08/2015 CELESTE GREEN, NENA Conti Ot F41.9 ANXIETY DISORDER, UNSPECIFIED 11/08/2015 CELESTE GREEN, NENA Conti Ot G89.29 OTHER CHRONIC PAIN 11/08/2015 CELESTE GREEN, NENA Conti Ot I10 ESSENTIAL (PRIMARY) HYPERTENSION 11/08/2015 CELESTE GREEN, NENA Conti Ot K29.70 GASTRITIS, UNSPECIFIED, WITHOUT BLEEDING 11/08/2015 NENA ALONSO MD Ot R10.11 RIGHT UPPER QUADRANT PAIN 11/14/2015 Ot 783.21 11/14/2015 Ot 789.07 11/14/2015 Ot 722.10 11/14/2015 Ot 345.90 11/14/2015 LE GREEN, STANLEY Soto Ot V72.84 11/14/2015 BRETT JOHNSON GEOLOGICAL AIDE Ot 789.00 11/14/2015 BRETT JOHNSON GEOLOGICAL AIDE Ot 789.01 07/05/2016 EREN MCDONALD APRN Ot F17.210 NICOTINE DEPENDENCE, CIGARETTES, UNCOMPL 07/05/2016 EREN MCDONALD APRN Ot I10 ESSENTIAL (PRIMARY) HYPERTENSION 07/05/2016 EREN MCDONALD SEAFOOD PROCESS WORKER Ot J44.1 CHRONIC OBSTRUCTIVE PULMONARY DISEASE W 07/05/2016 EREN MCDONALD SEAFOOD PROCESS WORKER Ot R06.2 WHEEZING 07/05/2016 EREN MCDONALD APRN Ot 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 (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 07/05/2016 EREN MCDONALD SEAFOOD PROCESS WORKER Ot Z79.899 OTHER STEELSCOPE OPERATOR (CURRENT) DRUG THERAPY 07/06/2016 EREN MCDONALD SEAFOOD PROCESS WORKER Ot F17.210 NICOTINE DEPENDENCE, CIGARETTES, UNCOMPL 07/06/2016 EREN MCDONALD SEAFOOD PROCESS WORKER Ot I10 ESSENTIAL (PRIMARY) HYPERTENSION 07/06/2016 ERNE MCDONALD SEAFOOD PROCESS WORKER Ot J44.1 CHRONIC OBSTRUCTIVE PULMONARY DISEASE W 07/06/2016 EREN MCDONALD SEAFOOD PROCESS WORKER Ot R06.2 WHEEZING 07/06/2016 EREN MCDONALD APRN Ot Z79.82 CORRECTION (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 07/06/2016 EREN MCDONALD SEAFOOD PROCESS WORKER Ot Z79.899 OTHER STEELSCOPE OPERATOR (CURRENT) DRUG THERAPY 08/15/2016 LE GREEN, STANLEY Soto Ot K21.9 GASTRO-ESOPHAGEAL REFLUX DISEASE WITHOUT 08/15/2016 STANLEY MONTANA MD Ot K58.9 IRRITABLE BOWEL SYNDROME WITHOUT DIARRHE 08/15/2016 STANLEY MONTANA MD Ot Z01.818 ENCOUNTER FOR OTHER PREPROCEDURAL EXAMIN 08/17/2016 STANLEY MONTANA MD Ot K21.9 GASTRO-ESOPHAGEAL REFLUX DISEASE WITHOUT 08/17/2016 LE GREEN, STANLEY Soto Ot K58.9 IRRITABLE BOWEL SYNDROME WITHOUT DIARRHE 08/17/2016 LE GREEN, STANLEY Soto Ot Z01.818 ENCOUNTER FOR OTHER PREPROCEDURAL EXAMIN 08/20/2016 Ot 783.21 LOSS OF WEIGHT 08/20/2016 Ot 789.07 ABDOMINAL PAIN, GENERALIZED 08/20/2016 Ot 722.10 LUMBAR DISC DISPLACEMENT 08/20/2016 Ot 345.90 EPILEPSY UNSPEC W/O MENTION INTRACTABLE 08/20/2016 LE GREEN, STANLEY Soto Ot V72.84 EXAM PRE-OPERATIVE NOS 08/20/2016 BRETT JOHNSON Ot 789.00 ABDOMINAL PAIN, UNSPECIFIED SITE 08/20/2016 BRETT JOHNSON GEOLOGICAL AIDE Ot 789.01 ABDOMINAL PAIN, RIGHT UPPER QUADRANT 08/20/2016 VEDA TOTH MD ([facility]) Ot Z02.71 ENCOUNTER FOR DISABILITY DETERMINATION 08/20/2016 LE GREEN, STANLEY Soto Ot K20.9 ESOPHAGITIS, UNSPECIFIED 08/20/2016 LE GREEN, STANLEY Soto Ot K29.70 GASTRITIS, UNSPECIFIED, WITHOUT BLEEDING 08/20/2016 LE GREEN, STANLEY Soto Ot K57.90 DVRTCLOS OF INTEST, PART UNSP, W/O PERF 08/20/2016 LE GREEN, STANLEY Soto Ot R13.10 DYSPHAGIA, UNSPECIFIED 08/20/2016 LE GREEN, STANLEY Soto Ot R19.5 OTHER FECAL ABNORMALITIES 11/06/2016 Ot 783.21 LOSS OF WEIGHT 11/06/2016 Ot 789.07 ABDOMINAL PAIN, GENERALIZED 11/06/2016 Ot 722.10 LUMBAR DISC DISPLACEMENT 11/06/2016 Ot 345.90 EPILEPSY UNSPEC W/O MENTION INTRACTABLE 11/06/2016 LE GREEN, STANLEY Soto Ot V72.84 EXAM PRE-OPERATIVE NOS 11/06/2016 BRETT JOHNSON GEOLOGICAL AIDE Ot 789.00 ABDOMINAL PAIN, UNSPECIFIED SITE 11/06/2016 BRETT JOHNSON GEOLOGICAL AIDE Ot 789.01 ABDOMINAL PAIN, RIGHT UPPER QUADRANT 11/06/2016 VEDA TOTH MD ([facility]) Ot Z02.71 ENCOUNTER FOR DISABILITY DETERMINATION 11/08/2016 BRETT JOHNSON GEOLOGICAL AIDE Ot R13.11 DYSPHAGIA, ORAL PHASE 11/23/2016 BRETT JOHNSON GEOLOGICAL AIDE Ot R13.11 DYSPHAGIA, ORAL PHASE 08/11/2017 CELESTE GREEN, NENA Conti Ot D72.829 ELEVATED WHITE BLOOD CELL COUNT, UNSPECI 08/11/2017 CELESTE GREEN, NENA Conti Ot E78.00 PURE HYPERCHOLESTEROLEMIA, UNSPECIFIED 08/11/2017 CELESTE GREEN, NENA Conti Ot F41.9 ANXIETY DISORDER, UNSPECIFIED 08/11/2017 CELESTE GREEN, NENA Conti Ot G40.909 EPILEPSY, UNSP, NOT INTRACTABLE, WITHOUT 08/11/2017 NENA ALONSO MD Ot I10 ESSENTIAL (PRIMARY) HYPERTENSION 08/11/2017 CELESTE GREEN, NENA Conti Ot J44.9 CHRONIC OBSTRUCTIVE PULMONARY DISEASE, U 08/11/2017 NENA ALONSO MD Ot K21.9 GASTRO-ESOPHAGEAL REFLUX DISEASE WITHOUT 08/11/2017 NENA ALONSO MD, Ot M19.90 UNSPECIFIED OSTEOARTHRITIS, UNSPECIFIED 08/11/2017 NENA ALONSO MD, Ot M54.2 CERVICALGIA 08/11/2017 NENA ALONSO MD, Ot R07.89 OTHER CHEST PAIN 08/11/2017 NENA ALONSO MD, Ot 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 (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 08/11/2017 NENA ALONSO MD, Ot Z86.718 PERSONAL HISTORY OF OTHER VENOUS THROMBO 08/11/2017 NENA ALONSO MD, Ot Z87.19 PERSONAL HISTORY OF OTHER DISEASES OF TH 08/11/2017 NENA ALONSO MD, Ot Z87.59 PERSONAL HISTORY OF COMP OF PREG, CHLDBR 08/11/2017 NENA ALONSO MD, Ot Z90.49 ACQUIRED ABSENCE OF OTHER SPECIFIED PART 08/11/2017 NENA ALONSO MD, Ot Z90.710 ACQUIRED ABSENCE OF BOTH CERVIX AND UTER 08/11/2017 NENA ALONSO MD, Ot Z98.51 TUBAL LIGATION STATUS 08/29/2017 KRYSTIN WRIGHT MD, Ot E78.00 PURE HYPERCHOLESTEROLEMIA, UNSPECIFIED 08/29/2017 KRYSTIN WRIGHT MD, Ot F17.210 NICOTINE DEPENDENCE, CIGARETTES, UNCOMPL 08/29/2017 KRYSTIN WRIGHT MD, Ot F41.9 ANXIETY DISORDER, UNSPECIFIED 08/29/2017 KRYSTIN WRIGHT MD, Ot G40.909 EPILEPSY, UNSP, NOT INTRACTABLE, WITHOUT 08/29/2017 KRYSTIN WRIGHT MD, Ot I10 ESSENTIAL (PRIMARY) HYPERTENSION 08/29/2017 KRYSTIN WRIGHT MD, Ot I31.3 PERICARDIAL EFFUSION (NONINFLAMMATORY) 08/29/2017 KRYSTIN WRIGHT MD, Ot J43.9 EMPHYSEMA, UNSPECIFIED 08/29/2017 KRYSTIN WRIGHT MD, Ot K21.9 GASTRO-ESOPHAGEAL REFLUX DISEASE WITHOUT 08/29/2017 KRYSTIN WRIGHT MD, Ot M19.91 PRIMARY OSTEOARTHRITIS, UNSPECIFIED SITE 08/29/2017 KRYSTIN WRIGHT MD, Ot R06.03 ACUTE RESPIRATORY DISTRESS 08/29/2017 KRYSTIN WRIGHT MD, Ot 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 (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 08/29/2017 KRYSTIN WRIGHT MD, Ot Z86.718 PERSONAL HISTORY OF OTHER VENOUS THROMBO 08/29/2017 KRYSTIN WRIGHT MD, Ot Z87.19 PERSONAL HISTORY OF OTHER DISEASES OF 08/29/2017 KRYSTIN WRIGHT MD Ot Z90.49 ACQUIRED ABSENCE OF OTHER SPECIFIED PART 08/29/2017 KRYSTIN WRIGHT MD Ot Z90.710 ACQUIRED ABSENCE OF BOTH CERVIX AND UTER 08/29/2017 KRYSTIN WRIGHT MD, Ot E78.00 PURE HYPERCHOLESTEROLEMIA, UNSPECIFIED 08/29/2017 KRYSTIN WRIGHT MD, Ot F17.210 NICOTINE DEPENDENCE, CIGARETTES, UNCOMPL 08/29/2017 KRYSTIN WRIGHT MD, Ot F41.9 ANXIETY DISORDER, UNSPECIFIED 08/29/2017 KRYSTIN WRIGHT MD, Ot G40.909 EPILEPSY, UNSP, NOT INTRACTABLE, WITHOUT 08/29/2017 KRYSTIN WRIGHT MD Ot I10 ESSENTIAL (PRIMARY) HYPERTENSION 08/29/2017 KRYSTIN WRIGHT MD, Ot I31.3 PERICARDIAL EFFUSION (NONINFLAMMATORY) 08/29/2017 KRYSTIN WRIGHT MD, Ot J43.9 EMPHYSEMA, UNSPECIFIED 08/29/2017 KRYSTIN WRIGHT MD, Ot K21.9 GASTRO-ESOPHAGEAL REFLUX DISEASE WITHOUT 08/29/2017 KRYSTIN WRIGHT MD, Ot M19.91 PRIMARY OSTEOARTHRITIS, UNSPECIFIED SITE 08/29/2017 KRYSTIN WRIGHT MD Ot R06.03 ACUTE RESPIRATORY DISTRESS 08/29/2017 KRYSTIN WRIGHT MD Ot Z79.82 CORRECTION (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 08/29/2017 KRYSTIN WRIGHT MD, Ot Z86.718 PERSONAL HISTORY OF OTHER VENOUS THROMBO 08/29/2017 KRYSTIN WRIGHT MD, Ot Z87.19 PERSONAL HISTORY OF OTHER DISEASES OF 08/29/2017 KRYSTIN WRIGHT MD, Ot Z90.49 ACQUIRED ABSENCE OF OTHER SPECIFIED PART 08/29/2017 KRYSTIN WRIGHT MD, Ot Z90.710 ACQUIRED ABSENCE OF BOTH CERVIX AND UTER 08/29/2017 KRYSTIN WRIGHT MD, Ot E78.00 PURE HYPERCHOLESTEROLEMIA, UNSPECIFIED 08/29/2017 GAULT MD, KRYSTIN R Ot F17.210 NICOTINE DEPENDENCE, CIGARETTES, UNCOMPL 08/29/2017 KRYSTIN WRIGHT MD Ot F41.9 ANXIETY DISORDER, UNSPECIFIED 08/29/2017 KRYSTIN WRIGHT MD, Ot G40.909 EPILEPSY, UNSP, NOT INTRACTABLE, WITHOUT 08/29/2017 KRYSTIN WRIGHT MD, Ot I10 ESSENTIAL (PRIMARY) HYPERTENSION 08/29/2017 KRYSTIN WRIGHT MD Ot I31.3 PERICARDIAL EFFUSION (NONINFLAMMATORY) 08/29/2017 KRYSTIN WRIGHT MD, Ot J43.9 EMPHYSEMA, UNSPECIFIED 08/29/2017 KRYSTIN WRIGHT MD, Ot K21.9 GASTRO-ESOPHAGEAL REFLUX DISEASE WITHOUT 08/29/2017 KRYSTIN WRIGHT MD, Ot M19.91 PRIMARY OSTEOARTHRITIS, UNSPECIFIED SITE 08/29/2017 KRYSTIN WRIGHT MD, Ot R06.03 ACUTE RESPIRATORY DISTRESS 08/29/2017 KRYSTIN WRIGHT MD, Ot 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 (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 08/29/2017 KRYSTIN WRIGHT MD, Ot Z86.718 PERSONAL HISTORY OF OTHER VENOUS THROMBO 08/29/2017 KRYSTIN WRIGHT MD, Ot Z87.19 PERSONAL HISTORY OF OTHER DISEASES OF TH 08/29/2017 KRYSTIN WRIGHT MD, Ot Z90.49 ACQUIRED ABSENCE OF OTHER SPECIFIED PART 08/29/2017 KRYSTIN WRIGHT MD, Ot Z90.710 ACQUIRED ABSENCE OF BOTH CERVIX AND UTER 09/04/2017 HEBERT LAZO MD Ot I31.3 PERICARDIAL EFFUSION (NONINFLAMMATORY) 09/07/2017 Ot 345.90 EPILEPSY UNSPEC W/O MENTION INTRACTABLE 09/07/2017 LE GREEN, STANLEY Soto Ot V72.84 EXAM PRE-OPERATIVE NOS 09/07/2017 BRETT JOHNSON Ot 789.00 ABDOMINAL PAIN, UNSPECIFIED SITE 09/07/2017 BRETT JOHNSON Ot 789.01 ABDOMINAL PAIN, RIGHT UPPER QUADRANT 09/07/2017 JANEY GREEN, VEDA Marroquin ([facility]) Ot Z02.71 ENCOUNTER FOR DISABILITY DETERMINATION 09/07/2017 BRETT JOHNSON Ot R13.11 DYSPHAGIA, ORAL PHASE 09/07/2017 HEBERT LAZO MD Ot R07.9 CHEST PAIN, UNSPECIFIED 09/07/2017 CLIFTON MD, BASHAR J Ot I31.3 PERICARDIAL EFFUSION (NONINFLAMMATORY) Procedures Code Description [place] [address] INDIV PSYTX 45/50 MIN 08/21/2012 78226 ROUTINE VENIPUNCTURE 08/22/2012 84237 MRI BRAIN W/CONTRAST 08/22/2012 81524 MRI BRAIN W/CONTRAST 08/22/2012 49095 MRI BRAIN W/O & W/DYE 08/22/2012 26220 CBC 08/22/2012 67022 CMP 08/22/2012 31163 LIPID PANEL 08/22/2012 6158976 GFR CALC (RESULT ONLY) 08/22/2012 35190 VIT B 12 08/23/2012 62136 ROUTINE VENIPUNCTURE 01/07/2013 97369 CBC 01/07/2013 04108 CMP 01/07/2013 79350 LIPID PANEL 01/07/2013 8334298 GFR CALC (RESULT ONLY) 01/07/2013 95260 TSH 01/08/2013 83404 VIT B 12 01/08/2013 02950 VITAMIN D 25-HYDROXY (D2,D3 , TOTAL) 01/08/2013 07016 THERAPUTIC INJ SQ/IM 02/03/2013 J3420 B12 VITAMIN INJECTION 02/03/2013 66405 A1C (IN-HOUSE) 02/03/2013 General S [place] 02/03/2013 Podiatry Edith Sandoval 02/03/2013 92669 THERAPUTIC INJ SQ/IM 03/24/2013 J3420 B12 VITAMIN INJECTION 03/24/[address] ABDOMEN & PELVIS W/O CONTRAST 03/25/2013 46841 THERAPUTIC INJ SQ/IM 06/23/2013 J3420 B12 VITAMIN INJECTION 06/23/2013 91870 THERAPUTIC INJ SQ/IM 10/26/2013 J3420 B12 VITAMIN INJECTION 10/26/2013 78667 THERAPUTIC INJ SQ/IM 03/31/2014 J3420 B12 VITAMIN INJECTION 03/31/2014 15572 XRAY HIPS BILATERAL 03/31/2014 10278 ROUTINE VENIPUNCTURE 04/01/2014 19213 CBC 04/01/2014 [id number] GFR CALC (RESULT ONLY) 04/01/2014 29052 CMP 04/01/2014 83502 LIPID PANEL 04/01/2014 31650 TSH 04/01/2014 37222 ROUTINE VENIPUNCTURE 10/08/2014 07279 VIT B 12 10/08/2014 12685 PSYCH DIAGNOSTIC EVALUATION 10/08/2014 J3420 B12 VITAMIN INJECTION 10/12/2014 78776 THERAPUTIC INJ SQ/IM 10/12/2014 65846 THERAPUTIC INJ SQ/IM 01/12/2015 J3420 B12 VITAMIN INJECTION 01/12/2015 Results Test Result Range Complete blood count (CBC) with automated white blood cell (WBC) differential - 07/05/16 15:55 Blood leukocytes automated count (number/volume) 8.8 10*3/uL 4.3-11.0 Blood erythrocytes automated count (number/volume) 5.01 10*6/uL 4.35-5.85 Venous blood hemoglobin measurement (mass/volume) 15.1 g/dL 11.5-16.0 Blood hematocrit (volume fraction) 44 % 35-52 Automated erythrocyte mean corpuscular volume 89 [foz_us] 80-99 Automated erythrocyte mean corpuscular hemoglobin (mass per erythrocyte) 30 pg 25-34 Automated erythrocyte mean corpuscular hemoglobin concentration measurement ( mass/volume) 34 g/dL 32-36 Automated erythrocyte distribution width ratio 13.2 % 10.0-14.5 Automated blood platelet count (count/volume) 282 10*3/uL 130-400 Automated blood platelet mean volume measurement 8.8 [foz_us] 7.4-10.4 Automated blood neutrophils/100 leukocytes 52 % 42-75 Automated blood lymphocytes/100 leukocytes 35 % 12-44 Blood monocytes/100 leukocytes 10 % 0-12 Automated blood eosinophils/100 leukocytes 2 % 0-10 Automated blood basophils/100 leukocytes 1 % 0-10 Blood neutrophils automated count (number/volume) 4.6 10*3 1.8-7.8 Blood lymphocytes automated count (number/volume) 3.1 10*3 1.0-4.0 Blood monocytes automated count (number/volume) 0.9 10*3 0.0-1.0 Automated eosinophil count 0.2 10*3/uL 0.0-0.3 Automated blood basophil count (count/volume) 0.1 10*3/uL 0.0-0.1 Comprehensive metabolic panel - 07/05/16 15:55 Serum or plasma sodium measurement (moles/volume) 141 mmol/L 135-145 Serum or plasma potassium measurement (moles/volume) 4.0 mmol/L 3.6-5.0 Serum or plasma chloride measurement (moles/volume) 102 mmol/L 98-107 Carbon dioxide 28 mmol/L 21-32 Serum or plasma anion gap determination (moles/volume) 11 mmol/L 5-14 Serum or plasma urea nitrogen measurement (mass/volume) 5 mg/dL 7-18 Serum or plasma creatinine measurement (mass/volume) 0.78 mg/dL 0.60-1.30 Serum or plasma urea nitrogen/creatinine mass ratio 6 NRG Serum or plasma creatinine measurement with calculation of estimated glomerular filtration rate > NRG Serum or plasma glucose measurement (mass/volume) 102 mg/dL 70-105 Serum or plasma calcium measurement (mass/volume) 9.9 mg/dL 8.5-10.1 Serum or plasma total bilirubin measurement (mass/volume) 0.4 mg/dL 0.1-1.0 Serum or plasma alkaline phosphatase measurement (enzymatic activity/volume) 84 U/L 40-136 Serum or plasma aspartate aminotransferase measurement (enzymatic activity/ volume) 15 U/L 5-34 Serum or plasma alanine aminotransferase measurement (enzymatic activity/volume ) 22 U/L 0-55 Serum or plasma protein measurement (mass/volume) 8.2 g/dL 6.4-8.2 Serum or plasma albumin measurement (mass/volume) 4.2 g/dL 3.2-4.5 Serum or plasma lithium measurement (moles/volume) - 07/05/16 15:55 BNP level 26.8 pg/mL <100.0 Complete urinalysis with reflex to culture - 07/05/16 16:38 Urine color determination YELLOW NRG Urine clarity determination CLEAR NRG Urine pH measurement by test strip 7 5-9 Specific gravity of urine by test strip 1.010 1.016- 1.022 Urine protein assay by test strip, semi-quantitative NEGATIVE NEGATIVE Urine glucose detection by automated test strip NEGATIVE NEGATIVE Erythrocytes detection in urine sediment by light microscopy NEGATIVE NEGATIVE Urine ketones detection by automated test strip NEGATIVE NEGATIVE Urine nitrite detection by test strip NEGATIVE NEGATIVE Urine total bilirubin detection by test strip NEGATIVE NEGATIVE Urine urobilinogen measurement by automated test strip (mass/volume) NORMAL NORMAL Urine leukocyte esterase detection by dipstick NEGATIVE NEGATIVE Automated urine sediment erythrocyte count by microscopy (number/high power field) NONE NRG Automated urine sediment leukocyte count by microscopy (number/high power field ) NONE NRG Bacteria detection in urine sediment by light microscopy NONE NRG Squamous epithelial cells detection in urine sediment by light microscopy 2-5 NRG Crystals detection in urine sediment by light microscopy NONE NRG Casts detection in urine sediment by light microscopy NONE NRG Mucus detection in urine sediment by light microscopy NEGATIVE NRG Complete urinalysis with reflex to culture NO NRG Urine drug screening test - 07/05/16 16:38 Urine phencyclidine detection by screening method NEGATIVE NEGATIVE Urine benzodiazepines detection by screening method POSITIVE NEGATIVE Urine cocaine detection NEGATIVE NEGATIVE Urine amphetamines detection by screening method NEGATIVE NEGATIVE Urine methamphetamine detection by screening method NEGATIVE NEGATIVE Urine cannabinoids detection by screening method NEGATIVE NEGATIVE Urine opiates detection by screening method NEGATIVE NEGATIVE Urine barbiturates detection NEGATIVE NEGATIVE Screening urine tricyclic antidepressants detection NEGATIVE NEGATIVE Urine methadone detection by screening method NEGATIVE NEGATIVE Urine oxycodone detection NEGATIVE NEGATIVE Urine propoxyphene detection NEGATIVE NEGATIVE Urine buprenophrine screen NEGATIVE NEGATIVE Complete blood count (CBC) with automated white blood cell (WBC) differential - 08/11/17 07:15 Blood leukocytes automated count (number/volume) 15.3 10*3/uL 4.3-11.0 Blood erythrocytes automated count (number/volume) 5.26 10*6/uL 4.35-5.85 Venous blood hemoglobin measurement (mass/volume) 15.7 g/dL 11.5-16.0 Blood hematocrit (volume fraction) 46 % 35-52 Automated erythrocyte mean corpuscular volume 87 [foz_us] 80-99 Automated erythrocyte mean corpuscular hemoglobin (mass per erythrocyte) 30 pg 25-34 Automated erythrocyte mean corpuscular hemoglobin concentration measurement ( mass/volume) 34 g/dL 32-36 Automated erythrocyte distribution width ratio 13.5 % 10.0-14.5 Automated blood platelet count (count/volume) 250 10*3/uL 130-400 Automated blood platelet mean volume measurement 8.9 [foz_us] 7.4-10.4 Automated blood neutrophils/100 leukocytes 76 % 42-75 Automated blood lymphocytes/100 leukocytes 14 % 12-44 Blood monocytes/100 leukocytes 9 % 0-12 Automated blood eosinophils/100 leukocytes 1 % 0-10 Automated blood basophils/100 leukocytes 0 % 0-10 Blood neutrophils automated count (number/volume) 11.7 10*3 1.8-7.8 Blood lymphocytes automated count (number/volume) 2.1 10*3 1.0-4.0 Blood monocytes automated count (number/volume) 1.3 10*3 0.0-1.0 Automated eosinophil count 0.2 10*3/uL 0.0-0.3 Automated blood basophil count (count/volume) 0.0 10*3/uL 0.0-0.1 PT panel in platelet poor plasma by coagulation assay - 08/11/17 07:15 Prothrombin time (PT) in platelet poor plasma by coagulation assay 11.9 s 12.2-14.7 INR in platelet poor plasma or blood by coagulation assay 0.9 0.8-1.4 Activated partial thromboplastin time (aPTT) in platelet poor plasma bycoagulation assay - 08/11/17 07:15 Activated partial thromboplastin time (aPTT) in platelet poor plasma bycoagulation assay 35 s 24-35 Comprehensive metabolic panel - 08/11/17 07:15 Serum or plasma sodium measurement (moles/volume) 138 mmol/L 135-145 Serum or plasma potassium measurement (moles/volume) 3.9 mmol/L 3.6-5.0 Serum or plasma chloride measurement (moles/volume) 101 mmol/L 98-107 Carbon dioxide 23 mmol/L 21-32 Serum or plasma anion gap determination (moles/volume) 14 mmol/L 5-14 Serum or plasma urea nitrogen measurement (mass/volume) 8 mg/dL 7-18 Serum or plasma creatinine measurement (mass/volume) 0.79 mg/dL 0.60-1.30 Serum or plasma urea nitrogen/creatinine mass ratio 10 NRG Serum or plasma creatinine measurement with calculation of estimated glomerular filtration rate > NRG Serum or plasma glucose measurement (mass/volume) 146 mg/dL 70-105 Serum or plasma calcium measurement (mass/volume) 9.7 mg/dL 8.5-10.1 Serum or plasma total bilirubin measurement (mass/volume) 0.3 mg/dL 0.1-1.0 Serum or plasma alkaline phosphatase measurement (enzymatic activity/volume) 92 U/L 40-136 Serum or plasma aspartate aminotransferase measurement (enzymatic activity/ volume) 15 U/L 5-34 Serum or plasma alanine aminotransferase measurement (enzymatic activity/volume ) 19 U/L 0-55 Serum or plasma protein measurement (mass/volume) 8.1 g/dL 6.4-8.2 Serum or plasma albumin measurement (mass/volume) 4.2 g/dL 3.2-4.5 Magnesium - 08/11/17 07:15 Magnesium 2.1 mg/dL 1.8-2.4 Serum or plasma troponin i.cardiac measurement (mass/volume) - 08/11/17 07:15 Serum or plasma troponin i.cardiac measurement (mass/volume) < ng/ mL <0.30 Myoglobin, serum - 08/11/17 07:15 Myoglobin, serum 28.7 ng/mL 10.0-92.0 Serum or plasma C reactive protein measurement (mass/volume) - 08/11/17 07:15 Serum or plasma C reactive protein measurement (mass/volume) 3.51 mg /dL 0.00-0.50 Blood manual differential performed detection - 08/11/17 07:15 Blood monocytes/100 leukocytes 9 % NRG Manual blood segmented neutrophils/100 leukocytes 76 % NRG Blood band neutrophils/100 leukocytes 0 % NRG Manual blood lymphocytes/100 leukocytes 15 % NRG Manual eosinophils/100 leukocytes in nose 0 % NRG Manual blood basophils/100 leukocytes 0 % NRG Blood erythrocyte morphology finding identification NORMAL NRG Lipase - 08/11/17 07:15 Lipase 35 U/L 8-78 Complete urinalysis with reflex to culture - 08/11/17 08:23 Urine color determination YELLOW NRG Urine clarity determination CLEAR NRG Urine pH measurement by test strip 8 5-9 Specific gravity of urine by test strip 1.015 1.016- 1.022 Urine protein assay by test strip, semi-quantitative 1+ NEGATIVE Urine glucose detection by automated test strip NEGATIVE NEGATIVE Erythrocytes detection in urine sediment by light microscopy 2+ NEGATIVE Urine ketones detection by automated test strip NEGATIVE NEGATIVE Urine nitrite detection by test strip NEGATIVE NEGATIVE Urine total bilirubin detection by test strip NEGATIVE NEGATIVE Urine urobilinogen measurement by automated test strip (mass/volume) NORMAL NORMAL Urine leukocyte esterase detection by dipstick NEGATIVE NEGATIVE Automated urine sediment erythrocyte count by microscopy (number/high power field) [HPF] NRG Automated urine sediment leukocyte count by microscopy (number/high power field ) NONE NRG Bacteria detection in urine sediment by light microscopy NEGATIVE NRG Squamous epithelial cells detection in urine sediment by light microscopy NONE NRG Crystals detection in urine sediment by light microscopy NONE NRG Casts detection in urine sediment by light microscopy NONE NRG Mucus detection in urine sediment by light microscopy NEGATIVE NRG Complete urinalysis with reflex to culture NO NRG Serum or plasma troponin i.cardiac measurement (mass/volume) - 08/11/17 09:20 Serum or plasma troponin i.cardiac measurement (mass/volume) < ng/ mL <0.30 Complete blood count (CBC) with automated white blood cell (WBC) differential - 08/28/17 23:19 Blood leukocytes automated count (number/volume) 16.7 10*3/uL 4.3-11.0 Blood erythrocytes automated count (number/volume) 5.30 10*6/uL 4.35-5.85 Venous blood hemoglobin measurement (mass/volume) 15.9 g/dL 11.5-16.0 Blood hematocrit (volume fraction) 46 % 35-52 Automated erythrocyte mean corpuscular volume 87 [foz_us] 80-99 Automated erythrocyte mean corpuscular hemoglobin (mass per erythrocyte) 30 pg 25-34 Automated erythrocyte mean corpuscular hemoglobin concentration measurement ( mass/volume) 35 g/dL 32-36 Automated erythrocyte distribution width ratio 13.4 % 10.0-14.5 Automated blood platelet count (count/volume) 298 10*3/uL 130-400 Automated blood platelet mean volume measurement 9.0 [foz_us] 7.4-10.4 Automated blood neutrophils/100 leukocytes 70 % 42-75 Automated blood lymphocytes/100 leukocytes 20 % 12-44 Blood monocytes/100 leukocytes 9 % 0-12 Automated blood eosinophils/100 leukocytes 1 % 0-10 Automated blood basophils/100 leukocytes 0 % 0-10 Blood neutrophils automated count (number/volume) 11.6 10*3 1.8-7.8 Blood lymphocytes automated count (number/volume) 3.4 10*3 1.0-4.0 Blood monocytes automated count (number/volume) 1.5 10*3 0.0-1.0 Automated eosinophil count 0.2 10*3/uL 0.0-0.3 Automated blood basophil count (count/volume) 0.1 10*3/uL 0.0-0.1 Blood manual differential performed detection - 08/28/17 23:19 Blood monocytes/100 leukocytes 4 % NRG Manual blood segmented neutrophils/100 leukocytes 63 % NRG Blood band neutrophils/100 leukocytes 3 % NRG Manual blood lymphocytes/100 leukocytes 28 % NRG Manual eosinophils/100 leukocytes in nose 0 % NRG Manual blood basophils/100 leukocytes 0 % NRG Blood lymphocytes variant/100 leukocytes 2 % NR Blood erythrocyte morphology finding identification NORMAL NR PT panel in platelet poor plasma by coagulation assay - 08/28/17 23:19 Prothrombin time (PT) in platelet poor plasma by coagulation assay 13.2 s 12.2-14.7 INR in platelet poor plasma or blood by coagulation assay 1.0 0.8-1.4 Activated partial thromboplastin time (aPTT) in platelet poor plasma bycoagulation assay - 08/28/17 23:19 Activated partial thromboplastin time (aPTT) in platelet poor plasma bycoagulation assay 38 s 24-35 Comprehensive metabolic panel - 08/28/17 23:19 Serum or plasma sodium measurement (moles/volume) 138 mmol/L 135-145 Serum or plasma potassium measurement (moles/volume) 4.0 mmol/L 3.6-5.0 Serum or plasma chloride measurement (moles/volume) 100 mmol/L 98-107 Carbon dioxide 26 mmol/L 21-32 Serum or plasma anion gap determination (moles/volume) 12 mmol/L 5-14 Serum or plasma urea nitrogen measurement (mass/volume) 6 mg/dL 7-18 Serum or plasma creatinine measurement (mass/volume) 0.79 mg/dL 0.60-1.30 Serum or plasma urea nitrogen/creatinine mass ratio 8 NRG Serum or plasma creatinine measurement with calculation of estimated glomerular filtration rate > NRG Serum or plasma glucose measurement (mass/volume) 114 mg/dL 70-105 Serum or plasma calcium measurement (mass/volume) 9.8 mg/dL 8.5-10.1 Serum or plasma total bilirubin measurement (mass/volume) 0.4 mg/dL 0.1-1.0 Serum or plasma alkaline phosphatase measurement (enzymatic activity/volume) 98 U/L 40-136 Serum or plasma aspartate aminotransferase measurement (enzymatic activity/ volume) 12 U/L 5-34 Serum or plasma alanine aminotransferase measurement (enzymatic activity/volume ) 10 U/L 0-55 Serum or plasma protein measurement (mass/volume) 8.2 g/dL 6.4-8.2 Serum or plasma albumin measurement (mass/volume) 4.1 g/dL 3.2-4.5 Magnesium - 08/28/17 23:19 Magnesium 2.0 mg/dL 1.8-2.4 Serum or plasma troponin i.cardiac measurement (mass/volume) - 08/28/17 23:19 Serum or plasma troponin i.cardiac measurement (mass/volume) < ng/ mL <0.30 Fibrin D-dimer FEU measurement in platelet poor plasma (mass/volume) - 23:19 Fibrin D-dimer FEU measurement in platelet poor plasma (mass/volume) 1.15 ug/mL 0.00-0.49 Myoglobin, serum - 08/28/17 23:19 Myoglobin, serum 39.8 ng/mL 10.0-92.0 Serum or plasma C reactive protein measurement (mass/volume) - 08/28/17 23:19 Serum or plasma C reactive protein measurement (mass/volume) 6.86 mg /dL 0.00-0.50 Erythrocyte sedimentation rate by westergren method - 08/28/17 23:19 Erythrocyte sedimentation rate by westergren method 6 mm 0-30 Serum or plasma thyrotropin measurement by detection limit <=0.05 miu/l (units/ volume) - 08/28/17 23:19 Serum or plasma thyrotropin measurement by detection limit <=0.05 miu/l (units/ volume) 2.79 u[iU]/mL 0.35-4.94 Complete urinalysis with reflex to culture - 08/29/17 01:50 Urine color determination YELLOW NRG Urine clarity determination CLEAR NRG Urine pH measurement by test strip 7 5-9 Specific gravity of urine by test strip 1.005 1.016- 1.022 Urine protein assay by test strip, semi-quantitative 2+ NEGATIVE Urine glucose detection by automated test strip NEGATIVE NEGATIVE Erythrocytes detection in urine sediment by light microscopy 1+ NEGATIVE Urine ketones detection by automated test strip NEGATIVE NEGATIVE Urine nitrite detection by test strip NEGATIVE NEGATIVE Urine total bilirubin detection by test strip NEGATIVE NEGATIVE Urine urobilinogen measurement by automated test strip (mass/volume) NORMAL NORMAL Urine leukocyte esterase detection by dipstick NEGATIVE NEGATIVE Automated urine sediment erythrocyte count by microscopy (number/high power field) RARE NRG Automated urine sediment leukocyte count by microscopy (number/high power field ) NONE NRG Bacteria detection in urine sediment by light microscopy NEGATIVE NRG Squamous epithelial cells detection in urine sediment by light microscopy RARE NRG Crystals detection in urine sediment by light microscopy NONE NRG Casts detection in urine sediment by light microscopy NONE NRG Mucus detection in urine sediment by light microscopy NEGATIVE NRG Complete urinalysis with reflex to culture NO NRG Lipid 1996 panel - 08/29/17 06:37 Serum or plasma triglyceride measurement (mass/volume) 191 mg/dL <150 Serum or plasma cholesterol measurement (mass/volume) 200 mg/dL < 200 Serum or plasma cholesterol in HDL measurement (mass/volume) 32 mg/ dL 40-60 Cholesterol in LDL [mass/volume] in serum or plasma by direct assay 123 mg/dL 1-129 Serum or plasma cholesterol in VLDL measurement (mass/volume) 38 mg/ dL 5-40 Serum or plasma troponin i.cardiac measurement (mass/volume) - 08/29/17 06:37 Serum or plasma troponin i.cardiac measurement (mass/volume) < ng/ mL <0.30 Serum or plasma troponin i.cardiac measurement (mass/volume) - 08/29/17 11:50 Serum or plasma troponin i.cardiac measurement (mass/volume) < ng/ mL <0.30 ANTI-NUCLEAR AB (BRO) ANALYZER - 08/29/17 14:20 Screening antinuclear antibody (BRO) assay by enzyme immunoassay <1: 80 <1:80 Encounters ACCT No. Visit Date/Time Discharge Status Pt. Type Provider Facility Loc./Unit Complaint [id number] 01/12/2015 09:42:00 01/12/2015 23:59:59 CLS Outpatient CAROLYN ALVARADO DO [id number] 10/12/2014 16:34:00 10/12/2014 23:59:59 CLS Outpatient BRETT JOHNSON APRN [id number] 10/08/2014 09:10:00 10/08/2014 23:59:59 CLS Outpatient BRETT JOHNSON APRN [id number] 04/01/2014 08:55:00 04/01/2014 23:59:59 CLS Outpatient CAROLYN ALVARADO DO [id number] 03/31/2014 12:32:00 03/31/2014 23:59:59 CLS Outpatient BRETT JOHNSON APRN [id number] 02/10/2014 00:00:00 02/10/2014 23:59:59 CLS Outpatient BRETT JOHNSON APRN [id number] 10/26/2013 15:08:00 10/26/2013 23:59:59 CLS Outpatient BRETT JOHNSON APRN [id number] 06/23/2013 16:28:00 06/23/2013 23:59:59 CLS Outpatient BRETT JOHNSON APRN [id number] 08/22/2012 11:08:00 08/22/2012 23:59:59 CLS Outpatient BRETT JOHNSON APRN [id number] 05/27/2012 15:00:00 05/27/2012 23:59:59 CLS Outpatient BRETT JOHNSON APRN [id number] 03/24/2013 16:33:00 Document Registration [id number] 03/24/2013 16:33:00 Document Registration [id number] 03/09/2013 13:37:00 Document Registration [id number] 02/03/2013 15:10:00 Document Registration [id number] 02/03/2013 15:10:00 Document Registration [id number] 01/27/2013 13:19:00 Document Registration [id number] 01/07/2013 10:11:00 Document Registration [id number] 01/02/2013 11:06:00 Document Registration [id number] 09/07/2017 12:15:00 09/07/2017 13:38:00 DIS Emergency SURI HARRISON [facility] ER FEELS LOW ON O2 [id number] 09/02/2017 10:37:00 09/02/2017 23:59:59 CLS Preadmit KHALIDA PERERA APRN [facility] RT J45.909 ASTHMA [id number] 09/02/2017 10:32:00 09/02/2017 23:59:59 CLS Outpatient HEBERT LAZO MD [facility] CARD PERICARDIAL EFFUSION I31.3 [id number] 08/30/2017 07:14:00 08/30/2017 23:59:59 CLS Outpatient HEBERT LAZO MD [facility] CARD R07.9 [id number] 08/28/2017 23:07:00 08/29/2017 15:55:00 DIS Inpatient KRYSTIN WRIGHT MD [facility] ICU CHEST PAIN,PERICARDIAL EFFUSIAN [id number] 08/11/2017 07:09:00 08/11/2017 10:08:00 DIS Emergency NENA ALONSO MD [facility] ER CHEST, BACK, SIDE PAIN [id number] 11/07/2016 09:55:00 11/07/2016 23:59:59 CLS Outpatient BRETT JOHNSON [facility] RAD ORAL PHASE DYSPHAGIA [id number] 08/20/2016 08:10:00 08/20/2016 12:00:00 DIS Outpatient STANLEY MONTANA MD [facility] ABNORMAL BOWEL MOVEMENT; GERD [id number] 08/15/2016 05:38:00 08/15/2016 11:23:00 DIS Outpatient STANLEY MONTANA MD [facility] PREOP ABNORMAL BOWEL MOVEMENT;GERD [id number] 07/05/2016 15:54:00 07/05/2016 17:14:00 DIS Emergency EREN MCDONALD APRN [facility] ER FLU LIKE SYMPTOMS [id number] 11/14/2015 10:15:00 11/14/2015 23:59:59 CLS Outpatient JANEY GREEN, VEDA Marroquin (DDU) [facility] RAD DDU [id number] 11/08/2015 01:37:00 11/08/2015 03:11:00 DIS Emergency CELESTE GREEN, NENA Conti [facility] ER HIGH BLOOD PRESSURE [id number] 08/14/2015 18:30:00 08/14/2015 22:14:00 DIS Emergency JACQUELINE JIMENEZ DO K [facility] ER RIGHT SIDE PAIN [id number] 07/18/2015 12:39:00 07/18/2015 15:25:00 DIS Emergency LISE RAVI [facility] ER FEET/LEGS SWELLING/ PAIN [id number] 04/02/2013 11:06:00 04/02/2013 23:59:59 CLS Outpatient BRETT JOHNSON [facility] RAD MASS FOUND IN CT [id number] 03/30/2013 13:03:00 03/30/2013 23:59:59 CLS Outpatient BRETT JOHNSON [facility] RAD UPPER QUAD PAIN [id number] 03/16/2013 11:00:00 03/16/2013 13:55:00 DIS Outpatient STANLEY MONTANA MD [facility] DYSPHAGIA [id number] 03/12/2013 07:13:00 03/12/2013 23:59:59 CLS Outpatient LE GREEN, STANLEY Soto [facility] PREOP DYSPHAGIA [id number] 07/18/2015 12:39:00 Document Registration [id number] 12/24/2012 09:46:00 Document Registration [id number] 09/02/2012 08:09:00 Document Registration [id number] 05/21/2012 16:23:00 Document Registration [id number] 04/29/2012 14:12:00 Document Registration [id number] 09/18/2011 10:00:00 Document Registration [id number] 09/01/2011 19:39:00 Document Registration [id number] 07/20/2011 07:06:00 Document Registration [id number] 06/25/2011 09:07:00 Document Registration
[2017-09-09] MEDS ORDERED: KETOROLAC 30 MG/ML VIAL IVP ONE (10:15)
[2017-09-09 10:23] LABS: BASOPHILS # (AUTO) 0.1 10^3/uL (0.0-0.1); BASOPHILS % (AUTO) 0 % (0-10); EOSINOPHILS # (AUTO) 0.3 10^3/uL (0.0-0.3); EOSINOPHILS % (AUTO) 1 % (0-10); LYMPHOCYTES # (AUTO) 1.4 X 10^3 (1.0-4.0); LYMPHOCYTES % (AUTO) 6 % (12-44); MEAN CORPUSCULAR HEMOGLOBIN 29 PG (25-34); MEAN CORPUSCULAR HGB CONC 33 G/DL (32-36); MEAN CORPUSCULAR VOLUME 88 FL (80-99); MEAN PLATELET VOLUME 8.5 FL (7.4-10.4); MONOCYTES # (AUTO) 1.6 X 10^3 (0.0-1.0); MONOCYTES % (AUTO) 7 % (0-12); NEUTROPHILS # (AUTO) 19.6 X 10^3 (1.8-7.8); NEUTROPHILS % (AUTO) 86 % (42-75); PLATELET COUNT 432 10^3/uL (130-400); RED BLOOD COUNT 5.07 10^6/uL (4.35-5.85); RED CELL DISTRIBUTION WIDTH 13.7 % (10.0-14.5); WHITE BLOOD COUNT 22.9 10^3/uL (4.3-11.0)
--- NOTE | 2017-09-09 10:26 | ED General ---
General Chief Complaint: General Problems/Pain Stated Complaint: PAIN AFTER SURGERY Nursing Triage Note: PT STATES POST OP PAIN FROM PERICARDIAL EFFUSION DRAINAGE SURGERY DONE AT [facility] BY DR. KRAFT. PAIN IS IN THE LT CHEST AND RADIATING TO LT SHOULDER AND BACK. Nursing Sepsis Screen: No Definite Risk Source of Information: Patient, Old Records Exam Limitations: No Limitations History of Present Illness Time Seen by Provider: 09:58 Initial Comments This 52 albumin presents to the emergency room with complaints of pain throughout the left side of her chest, particularly down by the left costal margin. It radiates into her back, upper left shoulder blade, and into the neck. It is particularly uncomfortable to take a deep breath or cough. She recently had treatment for pericardial effusion which included admission to this hospital on August 28. She was transferred to [facility] to have drainage of her pericardial effusion with Dr. Aleman. She has a well-healing incision on her chest. She states the central chest pain associated with the pericardial effusion is gone. She took ibuprofen 600 mg this morning of 07:00 which did not satisfactorily relieve the pain. She reports reduced consumption of tobacco and good compliance with her incentive spirometry. She is afebrile and vital signs are within normal limits. While in the hospital she developed atrial fibrillation. She was placed on amiodarone and Lasix with potassium. She reports minimal urine output this morning despite taking her Lasix. Patient was seen in this ER on September 07 for COPD exacerbation. Allergies and Home Medications Allergies Coded Allergies: buspirone HCl (Verified Allergy, Unknown, 08/14/15) etodolac (Verified Allergy, Unknown, 08/14/15) NSAIDS (Non-Steroidal Anti-Inflamma (Verified Adverse Reaction, Unknown, 08/14/15) Neuromuscular Blockers, Steroidal (Verified Adverse Reaction, Unknown, ) gabapentin (Verified Adverse Reaction, Unknown, 08/14/15) Home Medications Albuterol Sulfate 1 Puff Puff, 2 PUFF INH QID PRN for SHORTNESS OF BREATH, ( Reported) Albuterol Sulfate 2.5 Mg/3 Ml Vial.neb, 2.5 MG NEB Q4H PRN for SHORTNESS OF BREATH, (Reported) Alprazolam 0.5 Mg Tablet, 0.5 MG PO QID PRN for ANXIETY, (Reported) Atenolol 100 Mg Tablet, 50 MG PO BID, (Reported) TAKES 1/2 (100MG) TABLET Cetirizine HCl 10 Mg Tablet, 10 MG PO DAILY, (Reported) Cholecalciferol (Vitamin D3) 1,000 Unit Tablet, 1,000 UNIT PO BID, (Reported) Cyanocobalamin 1,000 Mcg/Ml Inj, 1,000 MCG IJ MONTHLY, (Reported) Dicyclomine HCl 20 Mg Tablet, 20 MG PO QID PRN for STOMACH UPSET, (Reported) Doxycycline Hyclate 100 Mg Tablet, 100 MG PO BID, #20 Prescribed by: NENA WATERS on 09/09/17 1217 Fluticasone Propionate 16 Gm [place].susp, 1 SPRAY NS BID, (Reported) Fluticasone/Salmeterol 1 Each Blst.w.dev, 1 PUFF IH BID, (Reported) Guaifenesin/Dextromethorphan 5 Ml Syrup, 10 ML PO Q6H PRN for COUGH, (Reported) Hydrocodone/Acetaminophen 1 Each Tablet, 1 EACH PO Q4H PRN for PAIN-MODERATE TO SEVERE, #10 Prescribed by: NENA WATERS on 09/09/17 1217 Ibuprofen 600 Mg Tablet, 600 MG PO Q6H PRN for PAIN-MODERATE, #100 Ref 0 Prescribed by: HEBERT LAZO on 08/29/17 1300 Ketorolac Tromethamine 10 Mg Tablet, 10 MG PO Q6H PRN for CHEST PAIN, (Reported) [place] 3 Polyunsat Fatty Acids 1,000 Mg Cap, 2,000 MG PO BID, (Reported) Omeprazole 40 Mg Capsule.dr, 40 MG PO DAILY, (Reported) Ranitidine HCl 150 Mg Tablet, 150 MG PO BID, (Reported) Constitutional: no symptoms reported EENTM: no symptoms reported Respiratory: see HPI Cardiovascular: see HPI Gastrointestinal: no symptoms reported Genitourinary: see HPI Musculoskeletal: see HPI Skin: no symptoms reported Psychiatric/Neurological: No Symptoms Reported Hematologic/Lymphatic: No Symptoms Reported Immunological/Allergic: no symptoms reported Past Dhcjzzc-Ynpowz-Gntlep Hx Patient Social History Alcohol Use: Denies Use Recreational Drug Use: No Smoking Status: Current Everyday Smoker Type Used: Cigarettes Recent Foreign Travel: No Contact w/Someone Who Travel: No Recent Infectious Disease Expo: No Recent Hopitalizations: Yes (09/08 HEART SURGERY AT [facility]) Immunizations Up To Date Date of Pneumonia Vaccine: Jun 07, 2016 Date of Influenza Vaccine: Jun 07, 2016 Seasonal Allergies Seasonal Allergies: Yes Surgeries History of Surgeries: Yes (HERNIA REPAIR, OVARIAN CYST REMOVAL, C/S X2, oral) Surgeries: Abdominal, Appendectomy, Section, Gallbladder, Hysterectomy , Oophorectomy Respiratory History of Respiratory Disorde: Yes (Tobaccoism) Respiratory Disorders: Asthma, Pneumonia, Pulmonary Embolism, Sleep Apnea, COPD , Emphysema Currently Using CPAP: No Currently Using BIPAP: No Cardiovascular History of Cardiac Disorders: Yes (Pericardial effusion) Cardiac Disorders: Atrial Fibrillation, Chronic Edema/Swelling, Deep Vein Thrombosis, High Cholesterol, Hypertension Neurological History of Neurological Disord: Yes (PSEUDO SEIZURES ) Neurological Disorders: Seizure Disorder 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 System Hx 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 Disorders: Yes 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, 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 Genitourinary History of Genitourinary Disor: No Gastrointestinal History of Gastrointestinal Di: Yes (CHOKES EASILY) Gastrointestinal Disorders: Gastroesophageal Reflux, Diverticulosis, Hiatal Hernia, Ulcer, Gall Bladder Disease, Irritable Bowel Musculoskeletal History of Musculoskeletal Dis: Yes (CHRONIC KNEE AND HIP PAIN, spinal stenosis ) Musculoskeletal Disorders: Osteoporosis, Arthritis, Chronic Back Pain Endocrine History of Endocrine Disorders: No HEENT History of HEENT Disorders: No Cancer History of Cancer: No Psychosocial History of Psychiatric Problem: Yes Behavioral Health Disorders: Pseudo Seizures, Anxiety Integumentary History of Skin or Integumenta: Yes Skin/Integumentary Disorders: Eczema Blood Transfusions History of Blood Disorders: No Adverse Reaction to a Blood Tr: No Family Medical History Significant Family History: No Pertinent Family Hx Family Medial History: FH: cirrhosis 19 MOTHER FH: liver cancer 19 MOTHER FHx: lung cancer 19 FATHER Hypertension 19 FATHER 19 MOTHER Physical Exam Vital Signs Vital Sign - Last 12Hours 09/09/ 10:03 Temp 98.2 Pulse 80 Resp 22 B/P (MAP) 139/97 (111) Pulse Ox 96 O2 Delivery Room Air Capillary Refill : Less Than 3 Seconds General Appearance: WD/WN, Mild Distress HEENT: Normal ENT Inspection Neck: Normal Inspection Respiratory: Chest Non Tender, Lungs Clear, Normal Breath Sounds, No Accessory Muscle Use, No Respiratory Distress Cardiovascular: Regular Rate, Rhythm, No Edema, No Murmur Gastrointestinal: Non Tender, Soft Extremity: Normal Inspection, Non Tender, No Calf Tenderness, No Pedal Edema, Other (negative Anita) Neurologic/Psychiatric: Alert, Oriented x3, No Motor/Sensory Deficits, Normal Mood/Affect, rand sewer II-XII Norm as Tested Skin: Normal Color, Warm/Dry Progress/Results/Core Measures Suspected Sepsis Recent Fever Within 48 Hours: No Infection Criteria Present: None New/Unexplained Altered Menta: No Sepsis Screen: No Definite Risk Sepsis Diagnosis: SIRS Temperature:98.2 Pulse: 80 Respiratory Rate: 22 Laboratory Tests 09/09/17 10:15: White Blood Count 22.9H Blood Pressure 139 /97 Mean: 111 Laboratory Tests 09/09/17 10:15: Creatinine 0.83, Platelet Count 432H, Total Bilirubin 0.6 Results/Orders Lab Results Laboratory Tests Test 09/09/17 10:15 09/09/17 11:27 Range/Units White Blood Count 22.9 H 4.3-11.0 10^3/uL Red Blood Count 5.07 4.35-5.85 10^6/uL Hemoglobin 14.7 11.5-16.0 G/DL Hematocrit 44 35-52 % Mean Corpuscular Volume 88 80-99 FL Mean Corpuscular Hemoglobin 29 25-34 PG Mean Corpuscular Hemoglobin Concent 33 32-36 G/DL Red Cell Distribution Width 13.7 10.0-14.5 % Platelet Count 432 H 130-400 10^3/uL Mean Platelet Volume 8.5 7.4-10.4 FL Neutrophils (%) (Auto) 86 H 42-75 % Lymphocytes (%) (Auto) 6 L 12-44 % Monocytes (%) (Auto) 7 0-12 % Eosinophils (%) (Auto) 1 0-10 % Basophils (%) (Auto) 0 0-10 % Neutrophils # (Auto) 19.6 H 1.8-7.8 X 10^3 Lymphocytes # (Auto) 1.4 1.0-4.0 X 10^3 Monocytes # (Auto) 1.6 H 0.0-1.0 X 10^3 Eosinophils # (Auto) 0.3 0.0-0.3 10^3/uL Basophils # (Auto) 0.1 0.0-0.1 10^3/uL Neutrophils % (Manual) 85 % Lymphocytes % (Manual) 9 % Monocytes % (Manual) 1 % Eosinophils % (Manual) 1 % Basophils % (Manual) 0 % Band Neutrophils 4 % Blood Morphology Comment NORMAL Sodium Level 140 135-145 MMOL/L Potassium Level 3.8 3.6-5.0 MMOL/L Chloride Level 102 98-107 MMOL/L Carbon Dioxide Level 27 21-32 MMOL/L Anion Gap 11 5-14 MMOL/L Blood Urea Nitrogen 6 L 7-18 MG/DL Creatinine 0.83 0.60-1.30 MG/DL Estimat Glomerular Filtration Rate > 60 BUN/Creatinine Ratio 7 Glucose Level 128 H 70-105 MG/DL Calcium Level 9.5 8.5-10.1 MG/DL Total Bilirubin 0.6 0.1-1.0 MG/DL Aspartate Amino Transf (AST/SGOT) 20 5-34 U/L Alanine Aminotransferase (ALT/SGPT) 22 0-55 U/L Alkaline Phosphatase 86 40-136 U/L C-Reactive Protein High Sensitivity > 15.00 H 0.00-0.50 MG/DL Total Protein 7.9 6.4-8.2 GM/DL Albumin 3.8 3.2-4.5 GM/DL Urine Color YELLOW Urine Clarity VERY CLOUDY H Urine pH 7 5-9 Urine Specific [place] 1.005 L 1.016-1.022 Urine Protein 1+ H NEGATIVE Urine Glucose (UA) NEGATIVE NEGATIVE Urine Ketones NEGATIVE NEGATIVE Urine Nitrite NEGATIVE NEGATIVE Urine Bilirubin NEGATIVE NEGATIVE Urine Urobilinogen 4 H NORMAL MG/DL Urine Leukocyte Esterase 2+ H NEGATIVE Urine RBC (Auto) 1+ H NEGATIVE Urine RBC 0-2 /HPF Urine WBC 2-5 /HPF Urine Squamous Epithelial Cells >50 H /HPF Urine Crystals NONE /LPF Urine Bacteria FEW H /HPF Urine Casts NONE /LPF Urine Mucus NEGATIVE /LPF Urine Culture Indicated NO My Orders Orders - NENA ALONSO MD Chest Pa/Lat (2 View) (09/09/17 10:10) Cbc With Automated Diff (09/09/17 10:10) Comprehensive Metabolic Panel (09/09/17 10:10) Saline Lock/Iv-Start (09/09/17 10:10) Ketorolac Injection (Toradol Injection) (09/09/17 10:15) Manual Differential (09/09/17 10:15) Fentanyl Injection (Sublimaze Injection (09/09/17 11:15) Orphenadrine Injection (Norflex Injectio (09/09/17 11:15) Hs C Reactive Protein (09/09/17 11:15) Ua Culture If Indicated (09/09/17 11:15) Sputum Culture (09/09/17 11:22) Medications Given in ED Current Medications Medications Dose Ordered Sig/Tino Route Start Time Stop Time Status Last Admin Dose Admin Fentanyl Citrate 50 mcg ONCE ONCE IVP 09/09/17 11:15 09/09/17 11:17 DC 09/09/17 11:22 50 MCG Ketorolac Tromethamine 30 mg ONCE ONCE IVP 09/09/17 10:15 09/09/17 10:16 DC 09/09/17 10:20 30 MG Orphenadrine Citrate 60 mg ONCE ONCE IV 09/09/17 11:15 09/09/17 11:17 DC 09/09/17 11:22 60 MG Vital Signs/I&O Vital Sign - Last 12Hours 09/09/17 09/09/17 10:03 10:20 Temp 98.2 98.2 Pulse 80 Resp 22 B/P (MAP) 139/97 (111) Pulse Ox 96 O2 Delivery Room Air Capillary Refill : Less Than 3 Seconds Blood Pressure Mean: 111 Progress Note #1: Time: 11:34 Progress Note Chest x-ray showed some increased basilar markings, most likely atelectasis. She has a significant leukocytosis on her labs which may be secondary to infection and/or recent steroid use in the hospital. She complains of pain was not improved much with Toradol. Norflex and fentanyl were ordered for additional pain relief. Patient is also concerned that she may have a urinary problems such as kidney stone or UTI. She requested a UA be performed. This was ordered. Progress Note #2: Time: 12:15 Progress Note Based on workup today, I'm concerned the patient's atypical chest pain may be related to early pneumonia. I have prescribed doxycycline as a precaution. She was advised to follow-up with her primary care provider within one week. She has notable leukocytosis and I advised that she have this monitored by her doctor. A short course of pain medication was prescribed. Departure Impression Impression: Primary Impression: Atypical chest pain Additional Impression: Leukocytosis Qualified Codes: D72.829 - Elevated white blood cell count, unspecified Disposition: 01 HOME, SELF-CARE Condition: Improved Departure-Patient Inst. Decision time for Depature: 12:14 Referrals: ESSIE BABCOCK MD (PCP) Primary Care Physician BRETT JOHNSON (Family) Primary Care Physician Patient Instructions: Chest Pain That Is Not Caused by the Heart (DC) Add. Discharge Instructions: Complete your antibiotics as prescribed. Follow-up with your primary care provider in about one week. Return to the emergency room if symptoms worsen. Continue with incentive spirometry and your inhaled medications. You may take ibuprofen up to 600 mg every 6 hours as needed for pain. Take with food or milk to avoid stomach irritation. Add hydrocodone as prescribed for additional pain relief if needed. Take Colace as prescribed while taking narcotic pain medications to help prevent constipation. Work toward quitting smoking and seek assistance from your primary care provider if needed. Encourage other household members to quit smoking as well. All discharge instructions reviewed with patient and/or family. Voiced understanding. Scripts Docusate Sodium (Colace) 100 Mg Capsule 100 MG PO BID, #60 CAP Prov: NENA ALONSO MD 09/09/17 Doxycycline Hyclate (Doxycycline Hyclate) 100 Mg Tablet 100 MG PO BID, #20 TAB Prov: NENA ALONSO MD 09/09/17 Hydrocodone/Acetaminophen (Hydrocodon -Acetaminophen 5-325) 1 Each Tablet 1 EACH PO Q4H Y for PAIN-MODERATE TO SEVERE, #10 TAB Prov: NENA ALONSO MD 09/09/17 Copy Copies To 1: ESSIE BABCOCK MD, JOSHUA T MD Sep 09, 2017 10:26
[2017-09-09 10:41] LABS: ALANINE AMINOTRANSFERASE 22 U/L (0-55); ALBUMIN 3.8 GM/DL (3.2-4.5); ANION GAP 11 MMOL/L (5-14); ASPARTATE AMINO TRANSFERASE 20 U/L (5-34); BILIRUBIN,TOTAL 0.6 MG/DL (0.1-1.0); BLOOD UREA NITROGEN 6 MG/DL (7-18); BUN/CREATININE RATIO 7; CALCIUM 9.5 MG/DL (8.5-10.1); CARBON DIOXIDE 27 MMOL/L (21-32); CHLORIDE 102 MMOL/L (98-107); CREATININE SERUM 0.83 MG/DL (0.60-1.30); GFR ESTIMATED > 60; GLUCOSE 128 MG/DL (70-105); POTASSIUM 3.8 MMOL/L (3.6-5.0); SODIUM 140 MMOL/L (135-145); TOTAL PROTEIN 7.9 GM/DL (6.4-8.2)
--- NOTE | 2017-09-09 10:58 | Diagnostic Imaging Report ---
INDICATION: Pericardial effusion and dyspnea. PA and lateral views of the chest are obtained. Comparison is made to study of 08/29/2017. There is mild cardiomegaly. Pulmonary vascularity is at the upper limits of normal. There is no evidence of pneumothorax or consolidation. There is mild right basilar atelectasis with blunting of both costophrenic sulci. IMPRESSION: Development of mild right basilar atelectasis with probable small amount of bilateral pleural fluid or thickening. Otherwise there is cardiomegaly with pulmonary vascularity, but the upper lungs are normal. No overt pulmonary edema is seen. Dictated by: Dictated on workstation # [id number]
[2017-09-09 11:15] LABS: BAND NEUTROPHILS 4 %; BASOPHILS % (MANUAL) 0 %; EOSINOPHILS % (MANUAL) 1 %; LYMPHOCYTES % (MANUAL) 9 %; NEUTROPHILS % (MANUAL) 85 %
[2017-09-09] MEDS ORDERED: ORPHENADRINE 60 MG/2 ML (NORFLEX) AMP IV ONE (11:15)
[2017-09-09] MEDS ORDERED: fentaNYL INJECTION 100 MCG/2 ML AMP IVP ONE (11:15)
[2017-09-09 11:37] LABS: BILIRUBIN,URINE NEGATIVE (NEGATIVE); KETONES,URINE NEGATIVE (NEGATIVE); LEUKOCYTE ESTERASE ,URINE 2+ (NEGATIVE); NITRITE,URINE NEGATIVE (NEGATIVE); PH,URINE 7 (5-9); PROTEIN,URINE 1+ (NEGATIVE); UROBILINOGEN,URINE 4 MG/DL (NORMAL)
[2017-09-09 11:45] LABS: SQUAMOUS EPITHELIAL CELL,UR >50 /HPF
[2017-09-09] MEDS ORDERED: HYDR-3812 PO (12:17)
[2017-09-09] MEDS ORDERED: DOXY100T2 PO (12:17)
[2017-09-09] MEDS ORDERED: DOCU-143 PO (12:22)
[2017-09-09 12:31] VITALS: BP 110/80
== END 2017-09-09 12:23 | disposition home or self-care (01) ==
LOC: EDUNIT# 09:57 → ER 09:59
DX: R07.89 Other chest pain (principal); G89.18 Other acute postprocedural pain; D72.829 Elevated white blood cell count, unspecified; J43.9 Emphysema, unspecified; I48.91 Unspecified atrial fibrillation; E66.9 Obesity, unspecified; G40.909 Epilepsy, unspecified, not intractable, without status epilepticus; E78.00 Pure hypercholesterolemia, unspecified; I10 Essential (primary) hypertension; G47.30 Sleep apnea, unspecified; M19.90 Unspecified osteoarthritis, unspecified site; M81.0 Age-related osteoporosis without current pathological fracture; F41.9 Anxiety disorder, unspecified; F17.210 Nicotine dependence, cigarettes, uncomplicated; Z87.59 Personal history of other complications of pregnancy, childbirth and the puerperium; Z86.718 Personal history of other venous thrombosis and embolism; Z87.19 Personal history of other diseases of the digestive system; Z80.0 Family history of malignant neoplasm of digestive organs; Z80.1 Family history of malignant neoplasm of trachea, bronchus and lung; Z90.710 Acquired absence of both cervix and uterus; Z90.49 Acquired absence of other specified parts of digestive tract; Z79.02 Long term (current) use of antithrombotics/antiplatelets; Z98.890 Other specified postprocedural states
CPT/HCPCS: 36415; 71020; 80053; 81000; 85007; 85027; 86141; 87070; 87205; 96374; 96375

== ENCOUNTER 2017-09-21 06:20 | Inpatient (IN) | payer MEDICAID ==
[2017-09-21] VITALS (11 sets, daily range): BP systolic 104–118; BP diastolic 68–84
[~2017-09-21] VITALS: Ht 172.7 cm; Wt 86.3 kg
[~2017-09-21 06:20] MED LIST changes: +DOCU-143 PO; +DOXY100T2 PO
[2017-09-21] MEDS ORDERED: RT-ALBUTEROL/IPRATROPIUM 3 ML (DUONEB) VIAL ONE (06:27)
--- OUTSIDE RECORDS SUMMARY | 2017-09-21 06:30 | XMS REPORT | Continuity of Care Document ---
Author Author [facility] Address Unknown Phone Unavailable Allergies Active Description [...] Allergy N/A N/A 02/03/2013 Yes buspirone HCl [id number] Drug Allergy Unknown N/A 08/14/2015 Yes etodolac [id number] Drug Allergy Unknown N/A 08/14/2015 Yes gabapentin [id number] Drug Allergy Unknown N/A 08/14/2015 Yes Neuromuscular Blockers, Steroidal [id number] Drug Allergy Unknown N/A 08/14 Yes NSAIDS (Non-Steroidal Anti-Inflamma [id number] Drug Allergy Unknown N/A Medications There is [...] BRETT JOHNSON APRN 462 PHARYNGITIS ACUTE 10/08/2008 BERTT JOHNSON APRN 462 PHARYNGITIS ACUTE 10/08/2008 462 [...] BRETT JOHNSON APRN 535.50 Gastritis Unspec 07/09/2011 BRTET JOHNSON APRN 783.21 Weight Loss 07/09/2011 BRETT [...] SCHNEIDER BRETT Conti 251.2 HYPOGLYCEMIA 10/26/2013 ELIZABETH SOLUTION SPEC, BRETT T V04.81 FLU SHOT 10/26/2013 ALVARADO [...] LOCALIZED EDEMA 07/18/2015 LISE RAVI Ot Z79.82 ASSISTED (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 07/18/2015 LISE RAVI [...] NICOTINE DEPENDENCE, CIGARETTES, UNCOMPL 11/08/2015 CELESTE GREEN, NNEA Conti Ot F41.9 ANXIETY DISORDER, UNSPECIFIED 11/08/2015 [...] STANLEY Soto Ot V72.84 11/14/2015 BRETT JOHNSON PHOTOGRAPHIC SPOTTER Ot 789.00 11/14/2015 BRETT JOHNSON PHOTOGRAPHIC SPOTTER Ot 789.01 07/05/2016 EREN MCDONALD APRN Ot F17.210 NICOTINE DEPENDENCE, CIGARETTES, UNCOMPL 07/05/2016 EREN MCDONALD APRN Ot I10 ESSENTIAL (PRIMARY) HYPERTENSION 07/05/2016 EREN MCDONALD SOLUTION SPEC Ot J44.1 CHRONIC OBSTRUCTIVE PULMONARY DISEASE W 07/05/2016 EREN MCDONALD SOLUTION SPEC Ot R06.2 WHEEZING 07/05/2016 EREN MCDONALD APRN Ot Z79.82 PNP (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 07/05/2016 EREN MCDONALD SOLUTION SPEC Ot Z79.899 OTHER PNP (CURRENT) DRUG THERAPY 07/06/2016 EREN MCDONALD SOLUTION SPEC Ot F17.210 NICOTINE DEPENDENCE, CIGARETTES, UNCOMPL 07/06/2016 EREN MCDONALD SOLUTION SPEC Ot I10 ESSENTIAL (PRIMARY) HYPERTENSION 07/06/2016 EREN MCDONALD SOLUTION SPEC Ot J44.1 CHRONIC OBSTRUCTIVE PULMONARY DISEASE W 07/06/2016 EREN MCDONALD SOLUTION SPEC Ot R06.2 WHEEZING 07/06/2016 EREN MCDONALD APRN Ot Z79.82 ASSISTED (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 07/06/2016 EREN MCDONALD SOLUTION SPEC Ot Z79.899 OTHER PNP (CURRENT) DRUG THERAPY 08/15/2016 LE GREEN, STANLEY Soto Ot K21.9 GASTRO-ESOPHAGEAL REFLUX DISEASE WITHOUT 08/15/2016 STANLEY LUJAN MD Ot K58.9 IRRITABLE BOWEL SYNDROME WITHOUT DIARRHE 08/15/2016 STANLEY LUJAN MD Ot Z01.818 ENCOUNTER FOR OTHER PREPROCEDURAL EXAMIN 08/17/2016 STANLEY LUJAN MD Ot K21.9 GASTRO-ESOPHAGEAL REFLUX DISEASE WITHOUT [...] ABDOMINAL PAIN, UNSPECIFIED SITE 08/20/2016 BRETT JOHNSON PHOTOGRAPHIC SPOTTER Ot 789.01 ABDOMINAL PAIN, RIGHT UPPER QUADRANT 08/20/2016 VEDA TOTH MD ([facility]) Ot Z02.71 ENCOUNTER FOR DISABILITY DETERMINATION [...] V72.84 EXAM PRE-OPERATIVE NOS 11/06/2016 BRETT JOHNSON PHOTOGRAPHIC SPOTTER Ot 789.00 ABDOMINAL PAIN, UNSPECIFIED SITE 11/06/2016 BRETT JOHNSON PHOTOGRAPHIC SPOTTER Ot 789.01 ABDOMINAL PAIN, RIGHT UPPER QUADRANT 11/06/2016 VEDA TOTH MD ([facility]) Ot Z02.71 ENCOUNTER FOR DISABILITY DETERMINATION 11/08/2016 BRETT JOHNSON PHOTOGRAPHIC SPOTTER Ot R13.11 DYSPHAGIA, ORAL PHASE 11/23/2016 BRETT JOHNSON PHOTOGRAPHIC SPOTTER Ot R13.11 DYSPHAGIA, ORAL PHASE 08/11/2017 CELESTE [...] PAIN 08/11/2017 NENA ALONSO MD, Ot Z79.82 PNP (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 08/11/2017 NENA ALONSO [...] Ot I31.3 PERICARDIAL EFFUSION (NONINFLAMMATORY) 08/29/2017 KRYSTIN WRIHGT MD, Ot J43.9 EMPHYSEMA, UNSPECIFIED 08/29/2017 KRYSTIN WRIGHT MD, Ot K21.9 GASTRO-ESOPHAGEAL REFLUX DISEASE WITHOUT 08/29/2017 KRYSTIN WRIGHT MD, Ot M19.91 PRIMARY OSTEOARTHRITIS, UNSPECIFIED SITE 08/29/2017 KRYSTIN WRIGHT MD, Ot R06.03 ACUTE RESPIRATORY DISTRESS 08/29/2017 KRYSTIN WRIGHT MD, Ot Z79.82 PNP (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 08/29/2017 KRYSTIN WRIGHT [...] DISTRESS 08/29/2017 KRYSTIN WRIGHT MD Ot Z79.82 ASSISTED (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 08/29/2017 KRYSTIN WRIGHT [...] DISTRESS 08/29/2017 KRYSTIN WRIGHT MD, Ot Z79.82 PNP (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 08/29/2017 KRYSTIN WRIGHT [...] UPPER QUADRANT 09/07/2017 JANEY GREEN, VEDA Marroquin ([facility]) Ot Z02.71 ENCOUNTER FOR DISABILITY DETERMINATION 09/07/2017 BRETT JOHNSON Ot R13.11 DYSPHAGIA, ORAL PHASE 09/07/2017 HEBERT LAZO MD Ot R07.9 CHEST PAIN, UNSPECIFIED 09/07/2017 HEBERT LAZO MD Ot I31.3 PERICARDIAL EFFUSION (NONINFLAMMATORY) 09/11/2017 NENA ALONSO MD Ot D72.829 ELEVATED WHITE BLOOD CELL COUNT, UNSPECI 09/11/2017 NENA ALONSO MD Ot E66.9 OBESITY, UNSPECIFIED 09/11/2017 NENA ALONSO MD Ot E78.00 PURE HYPERCHOLESTEROLEMIA, UNSPECIFIED 09/11/2017 NENA ALONSO MD Ot F17.210 NICOTINE DEPENDENCE, CIGARETTES, UNCOMPL 09/11/2017 NENA ALONSO MD Ot F41.9 ANXIETY DISORDER, UNSPECIFIED 09/11/2017 NENA ALONSO MD Ot G40.909 EPILEPSY, UNSP, NOT INTRACTABLE, WITHOUT 09/11/2017 NENA ALONSO MD Ot G47.30 SLEEP APNEA, UNSPECIFIED 09/11/2017 NENA ALONSO MD Ot G89.18 OTHER ACUTE POSTPROCEDURAL PAIN 09/11/2017 NENA ALONSO MD Ot I10 ESSENTIAL (PRIMARY) HYPERTENSION 09/11/2017 NENA ALONSO MD Ot I48.91 UNSPECIFIED ATRIAL FIBRILLATION 09/11/2017 NENA ALONSO MD Ot J43.9 EMPHYSEMA, UNSPECIFIED 09/11/2017 NENA ALONSO MD Ot M19.90 UNSPECIFIED OSTEOARTHRITIS, UNSPECIFIED 09/11/2017 NENA ALONSO MD Ot M81.0 AGE-RELATED OSTEOPOROSIS W/O CURRENT PAT 09/11/2017 NENA ALONSO MD Ot R07.89 OTHER CHEST PAIN 09/11/2017 NENA ALONSO MD Ot Z79.02 ASSISTED (CURRENT) USE OF ANTITHROMBOTI 09/11/2017 NENA ALONSO MD Ot Z80.0 FAMILY HISTORY OF MALIGNANT NEOPLASM OF 09/11/2017 NENA ALONSO MD Ot Z80.1 FAMILY HISTORY OF MALIG NEOPLASM OF TRAC 09/11/2017 NENA ALONSO MD Ot Z86.718 PERSONAL HISTORY OF OTHER VENOUS THROMBO 09/11/2017 NENA ALONSO MD Ot Z87.19 PERSONAL HISTORY OF OTHER DISEASES OF TH 09/11/2017 CELESTE GREEN, NENA Conti Ot Z87.59 PERSONAL HISTORY OF COMP OF PREG, CHLDBR 09/11/2017 CELESTE GREEN, NENA Conti Ot Z90.49 ACQUIRED ABSENCE OF OTHER SPECIFIED PART 09/11/2017 NENA ALONSO MD, Ot Z90.710 ACQUIRED ABSENCE OF BOTH CERVIX AND UTER 09/11/2017 NENA ALONSO MD, Ot Z98.890 OTHER SPECIFIED POSTPROCEDURAL STATES Procedures Code Description [place] [address] INDIV PSYTX 45/50 MIN 08/21/2012 53653 ROUTINE VENIPUNCTURE 08/22/2012 39389 MRI BRAIN W/CONTRAST 08/22/2012 77669 MRI BRAIN W/CONTRAST 08/22/2012 81197 MRI BRAIN W/O & W/DYE 08/22/2012 12002 CBC 08/22/2012 24788 CMP 08/22/2012 88689 LIPID PANEL 08/22/2012 1800934 GFR CALC (RESULT ONLY) 08/22/2012 25007 VIT B 12 08/23/2012 06383 ROUTINE VENIPUNCTURE 01/07/2013 84701 CBC 01/07/2013 35468 CMP 01/07/2013 22341 LIPID PANEL 01/07/2013 9647426 GFR CALC (RESULT ONLY) 01/07/2013 11834 TSH 01/08/2013 56596 VIT B 12 01/08/2013 11950 VITAMIN D 25-HYDROXY (D2,D3 , TOTAL) 01/08/2013 99311 THERAPUTIC INJ SQ/IM 02/03/2013 J3420 B12 VITAMIN INJECTION 02/03/2013 07946 A1C (IN-HOUSE) 02/03/2013 Stanley Pinto 02/03/2013 Podiatry Edith Sandoval 02/03/2013 58037 THERAPUTIC INJ SQ/IM 03/24/2013 J3420 B12 VITAMIN INJECTION 03/24/[address] ABDOMEN & PELVIS W/O CONTRAST 03/25/2013 58866 THERAPUTIC INJ SQ/IM 06/23/2013 J3420 B12 VITAMIN INJECTION 06/23/2013 12269 THERAPUTIC INJ SQ/IM 10/26/2013 J3420 B12 VITAMIN INJECTION 10/26/2013 90090 THERAPUTIC INJ SQ/IM 03/31/2014 J3420 B12 VITAMIN INJECTION 03/31/2014 33183 XRAY HIPS BILATERAL 03/31/2014 67725 ROUTINE VENIPUNCTURE 04/01/2014 11261 CBC 04/01/2014 2541445 GFR CALC (RESULT ONLY) 04/01/2014 63348 CMP 04/01/2014 31166 LIPID PANEL 04/01/2014 11920 TSH 04/01/2014 83657 ROUTINE VENIPUNCTURE 10/08/2014 29340 VIT B 12 10/08/2014 13005 PSYCH DIAGNOSTIC EVALUATION 10/08/2014 J3420 B12 VITAMIN INJECTION 10/12/2014 48511 THERAPUTIC INJ SQ/IM 10/12/2014 84711 THERAPUTIC INJ SQ/IM 01/12/2015 J3420 B12 VITAMIN [...] NRG Blood lymphocytes variant/100 leukocytes 2 % NRG Blood erythrocyte morphology finding identification NORMAL NRG PT panel in platelet poor plasma by [...] assay by enzyme immunoassay <1: 80 <1:80 Complete blood count (CBC) with automated white blood cell (WBC) differential - 09/09/17 10:15 Blood leukocytes automated count (number/volume) 22.9 10*3/uL 4.3-11.0 Blood erythrocytes automated count (number/volume) 5.07 10*6/uL 4.35-5.85 Venous blood hemoglobin measurement (mass/volume) 14.7 g/dL 11.5-16.0 Blood hematocrit (volume fraction) 44 % 35-52 Automated erythrocyte mean corpuscular volume 88 [foz_us] 80-99 Automated erythrocyte mean corpuscular hemoglobin (mass per erythrocyte) 29 pg 25-34 Automated erythrocyte mean corpuscular hemoglobin concentration measurement ( mass/volume) 33 g/dL 32-36 Automated erythrocyte distribution width ratio 13.7 % 10.0-14.5 Automated blood platelet count (count/volume) 432 10*3/uL 130-400 Automated blood platelet mean volume measurement 8.5 [foz_us] 7.4-10.4 Automated blood neutrophils/100 leukocytes 86 % 42-75 Automated blood lymphocytes/100 leukocytes 6 % 12-44 Blood monocytes/100 leukocytes 7 % 0-12 Automated blood eosinophils/100 leukocytes 1 % 0-10 Automated blood basophils/100 leukocytes 0 % 0-10 Blood neutrophils automated count (number/volume) 19.6 10*3 1.8-7.8 Blood lymphocytes automated count (number/volume) 1.4 10*3 1.0-4.0 Blood monocytes automated count (number/volume) 1.6 10*3 0.0-1.0 Automated eosinophil count 0.3 10*3/uL 0.0-0.3 Automated blood basophil count (count/volume) 0.1 10*3/uL 0.0-0.1 Comprehensive metabolic panel - 09/09/17 10:15 Serum or plasma sodium measurement (moles/volume) 140 mmol/L 135-145 Serum or plasma potassium measurement (moles/volume) 3.8 mmol/L 3.6-5.0 Serum or plasma chloride measurement (moles/volume) 102 mmol/L 98-107 Carbon dioxide 27 mmol/L 21-32 Serum or plasma anion gap determination (moles/volume) 11 mmol/L 5-14 Serum or plasma urea nitrogen measurement (mass/volume) 6 mg/dL 7-18 Serum or plasma creatinine measurement (mass/volume) 0.83 mg/dL 0.60-1.30 Serum or plasma urea nitrogen/creatinine mass ratio 7 NRG Serum or plasma creatinine measurement with calculation of estimated glomerular filtration rate > NRG Serum or plasma glucose measurement (mass/volume) 128 mg/dL 70-105 Serum or plasma calcium measurement (mass/volume) 9.5 mg/dL 8.5-10.1 Serum or plasma total bilirubin measurement (mass/volume) 0.6 mg/dL 0.1-1.0 Serum or plasma alkaline phosphatase measurement (enzymatic activity/volume) 86 U/L 40-136 Serum or plasma aspartate aminotransferase measurement (enzymatic activity/ volume) 20 U/L 5-34 Serum or plasma alanine aminotransferase measurement (enzymatic activity/volume ) 22 U/L 0-55 Serum or plasma protein measurement (mass/volume) 7.9 g/dL 6.4-8.2 Serum or plasma albumin measurement (mass/volume) 3.8 g/dL 3.2-4.5 Blood manual differential performed detection - 09/09/17 10:15 Blood monocytes/100 leukocytes 1 % NRG Manual blood segmented neutrophils/100 leukocytes 85 % NRG Blood band neutrophils/100 leukocytes 4 % NRG Manual blood lymphocytes/100 leukocytes 9 % NRG Manual eosinophils/100 leukocytes in nose 1 % NRG Manual blood basophils/100 leukocytes 0 % NRG Blood erythrocyte morphology finding identification NORMAL NRG Serum or plasma C reactive protein measurement (mass/volume) - 09/09/17 10:15 Serum or plasma C reactive protein measurement (mass/volume) > mg/ dL 0.00-0.50 Complete urinalysis with reflex to culture - 09/09/17 11:27 Urine color determination YELLOW NRG Urine clarity determination VERY CLOUDY NRG Urine pH measurement by test strip [...] urobilinogen measurement by automated test strip (mass/volume) 4 mg/dL NORMAL Urine leukocyte esterase detection by dipstick 2+ NEGATIVE Automated urine sediment erythrocyte count by microscopy (number/high power field) [HPF] NRG Automated urine sediment leukocyte count by microscopy (number/high power field ) [HPF] NRG Bacteria detection in urine sediment by light microscopy FEW NRG Squamous epithelial cells detection in urine sediment by light microscopy >50 NRG Crystals detection in urine sediment by light microscopy NONE NRG Casts detection in urine sediment by light microscopy NONE NRG Mucus detection in urine sediment by light microscopy NEGATIVE NRG Complete urinalysis with reflex to culture NO NRG Sputum Gram stain - 09/09/17 11:27 Sputum Gram stain abundant mixed bacterial priya NRG Bacterial sputum culture - 09/09/17 11:27 FREE TEXT EXTERNAL PLUS NORMAL PRIYA NRG QUANTITY OF GROWTH Moderate Growth NRG Bacterial sputum culture [id number] NRG Encounters ACCT No. Visit Date/Time Discharge Status Pt. Type Provider Facility Loc./Unit Complaint [id number] 01/12/2015 09:42:00 01/12/2015 23:59:59 CLS Outpatient CAROLYN ALVARADO DO [id number] 10/12/2014 16:34:00 10/12/2014 23:59:59 CLS Outpatient BRETT JOHNSON APRN [id number] 10/08/2014 09:10:00 10/08/2014 23:59:59 CLS Outpatient BRETT JOHNSON APRN [id number] 04/01/2014 08:55:00 04/01/2014 23:59:59 CLS Outpatient CAROLYN ALVARADO DO [id number] 03/31/2014 12:32:00 03/31/2014 23:59:59 CLS Outpatient BRETT JOHNSON APRN [id number] 02/10/2014 00:00:00 02/10/2014 23:59:59 CLS Outpatient BRETT JOHNSON APRN [id number] 10/26/2013 15:08:00 10/26/2013 23:59:59 CLS Outpatient BRETT JOHNSON APRN [id number] 06/23/2013 16:28:00 06/23/2013 23:59:59 CLS Outpatient BRETT JOHNSON APRN [id number] 08/22/2012 11:08:00 08/22/2012 23:59:59 CLS Outpatient BRETT JOHNSON APRN [id number] 05/27/2012 15:00:00 05/27/2012 23:59:59 CLS Outpatient BRETT JOHNSON APRN [id number] 03/24/2013 16:33:00 Document Registration [id number] 03/24/2013 16:33:00 Document Registration [id number] 03/09/2013 13:37:00 Document Registration [id number] 02/03/2013 15:10:00 Document Registration [id number] 02/03/2013 15:10:00 Document Registration [id number] 01/27/2013 13:19:00 Document Registration [id number] 01/07/2013 10:11:00 Document Registration [id number] 01/02/2013 11:06:00 Document Registration [id number] 09/09/2017 09:59:00 09/09/2017 12:23:00 DIS Outpatient CELESTE GREEN, NENA Conti [facility] ER PAIN AFTER SURGERY [id number] 09/07/2017 12:15:00 09/07/2017 13:38:00 DIS Emergency SURI HARRISON WANG [facility] ER FEELS LOW ON O2 [id number] 09/02/2017 10:37:00 09/02/2017 23:59:59 CLS Preadmit JIMMY PERERAROWAN Sepulveda APRN [facility] RT J45.909 ASTHMA [id number] 09/02/2017 10:32:00 09/02/2017 23:59:59 CLS Outpatient HEBERT LAZO MD [facility] CARD PERICARDIAL EFFUSION I31.3 [id number] 08/30/2017 07:14:00 08/30/2017 23:59:59 CLS Outpatient HEBERT LAZO MD [facility] CARD R07.9 [id number] 08/28/2017 23:07:00 08/29/2017 15:55:00 DIS Inpatient KRYSTIN WRIGHT MD [facility] ICU CHEST PAIN,PERICARDIAL EFFUSIAN [id number] 08/11/2017 07:09:00 08/11/2017 10:08:00 DIS Emergency CELESTE GREEN, NENA Conti [facility] ER CHEST, BACK, SIDE PAIN [id number] 11/07/2016 09:55:00 11/07/2016 23:59:59 CLS Outpatient ELIZABETH BRETT Gallito PIÑA [facility] RAD ORAL PHASE DYSPHAGIA [id number] 08/20/2016 08:10:00 08/20/2016 12:00:00 DIS Outpatient STANLEY LUJAN MD [facility] SDC ABNORMAL BOWEL MOVEMENT; GERD [id number] 08/15/2016 05:38:00 08/15/2016 11:23:00 DIS Outpatient STANLEY LUJAN MD [facility] PREOP ABNORMAL BOWEL MOVEMENT;GERD [id number] 07/05/2016 15:54:00 07/05/2016 17:14:00 DIS Emergency EREN MCDONALD APRN [facility] ER FLU LIKE SYMPTOMS [id number] 11/14/2015 10:15:00 11/14/2015 23:59:59 CLS Outpatient JANEY GREEN, VEDA Marroquin (DDU) [facility] RAD DDU [id number] 11/08/2015 01:37:00 11/08/2015 03:11:00 DIS Emergency CELESTE GREEN, NENA Conti [facility] ER HIGH BLOOD PRESSURE [id number] 08/14/2015 18:30:00 08/14/2015 22:14:00 DIS Emergency TONY IRWIN JACQUELINE K [facility] ER RIGHT SIDE PAIN [id number] 07/18/2015 12:39:00 07/18/2015 15:25:00 DIS Emergency LISE RAVI [facility] ER FEET/LEGS SWELLING/ PAIN [id number] 04/02/2013 11:06:00 04/02/2013 23:59:59 CLS Outpatient BRETT JOHNSON [facility] RAD MASS FOUND IN CT [id number] 03/30/2013 13:03:00 03/30/2013 23:59:59 CLS Outpatient BRETT JOHNSON [facility] RAD UPPER QUAD PAIN [id number] 03/16/2013 11:00:00 03/16/2013 13:55:00 DIS Outpatient STANLEY LUJAN MD [facility] SDC DYSPHAGIA [id number] 03/12/2013 07:13:00 03/12/2013 23:59:59 CLS Outpatient STANLEY LUJAN MD [facility] PREOP DYSPHAGIA [id number] 07/18/2015 12:39:00 Document Registration [id number] 12/24/2012 09:46:00 Document Registration [id number] 09/02/2012 08:09:00 Document Registration [id number] 05/21/2012 16:23:00 Document Registration [id number] 04/29/2012 14:12:00 Document Registration [id number] 09/18/2011 10:00:00 Document Registration [id number] 09/01/2011 19:39:00 Document Registration [id number] 07/20/2011 07:06:00 Document Registration [id number] 06/25/2011 09:07:00 Document Registration
[2017-09-21] MEDS ORDERED: FURO20TA4 (06:31)
[2017-09-21] MEDS ORDERED: POTA10TA10 (06:31)
[2017-09-21] MEDS ORDERED: AMIO200T2 PO (06:31)
[2017-09-21 06:39] LABS: BASOPHILS % (AUTO) 0 % (0-10); EOSINOPHILS % (AUTO) 0 % (0-10); HEMATOCRIT 39 % (35-52); HEMOGLOBIN 12.9 G/DL (11.5-16.0); LYMPHOCYTES # (AUTO) 1.9 X 10^3 (1.0-4.0); LYMPHOCYTES % (AUTO) 10 % (12-44); MEAN CORPUSCULAR HEMOGLOBIN 29 PG (25-34); MEAN CORPUSCULAR HGB CONC 33 G/DL (32-36); MEAN CORPUSCULAR VOLUME 86 FL (80-99); MEAN PLATELET VOLUME 8.5 FL (7.4-10.4); MONOCYTES # (AUTO) 1.5 X 10^3 (0.0-1.0); MONOCYTES % (AUTO) 8 % (0-12); NEUTROPHILS # (AUTO) 14.8 X 10^3 (1.8-7.8); NEUTROPHILS % (AUTO) 81 % (42-75); PLATELET COUNT 479 10^3/uL (130-400); RED BLOOD COUNT 4.47 10^6/uL (4.35-5.85); WHITE BLOOD COUNT 18.3 10^3/uL (4.3-11.0)
[2017-09-21] MEDS ORDERED: RT-ALBUTEROL SULF 2.5 MG/3 ML PRE-MIX VIAL INH STA (06:40)
[2017-09-21] MEDS ORDERED: RT-ALBUTEROL SULF 2.5 MG/3 ML PRE-MIX VIAL INH ONE (06:40)
[2017-09-21] MEDS ORDERED: RT-ALBUTEROL/IPRATROPIUM 3 ML (DUONEB) VIAL INH ONE (06:45)
[2017-09-21 06:46] LABS: INR 1.2 (0.8-1.4); PROTHROMBIN TIME PATIENT 15.2 SEC (12.2-14.7)
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
[2017-09-21 06:53] LABS: ALANINE AMINOTRANSFERASE 23 U/L (0-55); ALBUMIN 3.2 GM/DL (3.2-4.5); ALKALINE PHOSPHATASE 127 U/L (40-136); BILIRUBIN,TOTAL 0.7 MG/DL (0.1-1.0); BUN/CREATININE RATIO 8; CALCIUM 9.1 MG/DL (8.5-10.1); CARBON DIOXIDE 24 MMOL/L (21-32); CHLORIDE 100 MMOL/L (98-107); CREATININE SERUM 0.79 MG/DL (0.60-1.30); GFR ESTIMATED > 60; GLUCOSE 155 MG/DL (70-105); POTASSIUM 3.4 MMOL/L (3.6-5.0); SODIUM 139 MMOL/L (135-145); TOTAL PROTEIN 7.2 GM/DL (6.4-8.2)
[2017-09-21 07:04] LABS: BAND NEUTROPHILS 2 %; BASOPHILS % (MANUAL) 0 %; EOSINOPHILS % (MANUAL) 1 %; LYMPHOCYTES % (MANUAL) 7 %; MONOCYTES % (MANUAL) 8 %; NEUTROPHILS % (MANUAL) 82 %; RBC MORPH NORMAL
--- NOTE | 2017-09-21 07:27 | Diagnostic Imaging Report ---
EXAMINATION: Portable erect AP chest at 0654 AM INDICATION: Respiratory distress The appearance of the chest has worsened since the prior exam of 09/09/2017 as the left lung base is now opacified by atelectasis/infiltrate and fluid. The left upper lung remains clear. Conversely, the right lower lobe does seem better aerated. There is only a small amount of residual atelectasis/infiltrate and fluid in this area. The right lung is otherwise clear. The heart is difficult to assess due to the atelectasis/infiltrate and fluid involving the left lung base but seems stable. The mediastinum is not widened. The osseous structures are intact. IMPRESSION: The appearance of the chest has worsened since the prior exam as the left lung base is now opacified by atelectasis/infiltrate and fluid. A followup study would be recommended for continued evaluation. Dictated by: Dictated on workstation # [id number]
[2017-09-21] MEDS: fentaNYL INJECTION 100 MCG/2 ML AMP ONE ×2 (08:00→08:01)
--- NOTE | 2017-09-21 09:46 | Diagnostic Imaging Report ---
PROCEDURE: CT chest without contrast. TECHNIQUE: Multiple contiguous axial images were obtained through the chest without the use of intravenous contrast. INDICATION: Short of air, hurts to breath, progressively worsening. EXAMINATION: CT of the chest without contrast 09/21/2017. COMPARISON: 08/29/2017 FINDINGS: There are diffuse emphysematous changes throughout both lungs with bullous changes medially in the apices. No pneumothorax appreciated. Moderate left pleural effusion seen with a very small right base effusion also noted. There is an infiltrate at the left lung base. Atherosclerotic disease is seen along the aorta. There is a moderate-sized pericardial effusion. A few scattered shotty lymph nodes throughout the mediastinum without blayne lymphadenopathy. No definite hilar adenopathy is seen. There is no axillary adenopathy. Minimal right base atelectasis is also noted. No acute osseous abnormalities appreciated. In the visualized upper abdomen demonstrates a previous cholecystectomy. No acute abnormality. IMPRESSION: 1. Bilateral effusions left greater than right with bibasal infiltrates left also greater than right. 2. Emphysematous disease. 3. Shotty lymph nodes in the mediastinum most likely reactive. This could be followed to assure complete resolution. Other incidental findings as noted above. 4. Pericardial effusion. Dictated by: Dictated on workstation # [id number]
[2017-09-21] MEDS ORDERED: NS (IVPB) 50 ML ONE (09:59)
[2017-09-21] MEDS ORDERED: PIPERACILLIN/TAZO 4.5 GM VIAL (ZOSYN) IV ONE (10:00)
[2017-09-21] MEDS ORDERED: NS (IVPB) 100 ML ONE (10:00)
--- OUTSIDE RECORDS SUMMARY | 2017-09-21 11:40 | XMS REPORT | Continuity of Care Document ---
Author Author [facility] Address Unknown Phone Unavailable Allergies Active [...] Allergy N/A N/A 02/03/2013 Yes buspirone HCl [id number] Drug Allergy Unknown N/A 08/14/2015 Yes etodolac [id number] Drug Allergy Unknown N/A 08/14/2015 Yes gabapentin [id number] Drug Allergy Unknown N/A 08/14/2015 Yes Neuromuscular Blockers, Steroidal [id number] Drug Allergy Unknown N/A 08/14 Yes NSAIDS (Non-Steroidal Anti-Inflamma [id number] Drug Allergy Unknown N/A Medications There is [...] BRETT JOHNSON APRN 462 Pharyngitis Acute 10/08/2008 ALVARDAO DOTOMASZA K 462 Pharyngitis Acute 10/08/2008 BRETT [...] 01/09/2011 311 MO DEPRESS NOS 01/09/2011 BRETT JOHNOSN APRN 300.21 AN PANIC DIS W AGORA [...] JOHNSON APRN 553.3 HIATAL HERNIA 05/21/2011 BRETT JONHSON APRN 578.1 HEMATOCHEZIA 05/21/2011 BRETT JOHNSON APRN [...] SCHNEIDER BRETT Conti 251.2 HYPOGLYCEMIA 10/26/2013 ELIZABETH STORE PROMOTER, BRETT T V04.81 FLU SHOT 10/26/2013 ALVARADO [...] LOCALIZED EDEMA 07/18/2015 LISE RAVI Ot Z79.82 LONG-TERM (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 07/18/2015 LISE RAVI [...] STANLEY Soto Ot V72.84 11/14/2015 BRETT JOHNSON UNDERWATER ROBOTICIST Ot 789.00 11/14/2015 BRETT JOHNSON UNDERWATER ROBOTICIST Ot 789.01 07/05/2016 EREN MCDONALD APRN Ot F17.210 NICOTINE DEPENDENCE, CIGARETTES, UNCOMPL 07/05/2016 EREN MCDONALD APRN Ot I10 ESSENTIAL (PRIMARY) HYPERTENSION 07/05/2016 EREN MCDONALD STORE PROMOTER Ot J44.1 CHRONIC OBSTRUCTIVE PULMONARY DISEASE W 07/05/2016 EREN MCDONALD STORE PROMOTER Ot R06.2 WHEEZING 07/05/2016 EREN MCDONALD APRN Ot Z79.82 FOOD SERVER (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 07/05/2016 EREN MCDONALD STORE PROMOTER Ot Z79.899 OTHER FOOD SERVER (CURRENT) DRUG THERAPY 07/06/2016 EREN MCDONALD STORE PROMOTER Ot F17.210 NICOTINE DEPENDENCE, CIGARETTES, UNCOMPL 07/06/2016 EREN MCDONALD STORE PROMOTER Ot I10 ESSENTIAL (PRIMARY) HYPERTENSION 07/06/2016 EREN MCDONALD STORE PROMOTER Ot J44.1 CHRONIC OBSTRUCTIVE PULMONARY DISEASE W 07/06/2016 EREN MCDONALD STORE PROMOTER Ot R06.2 WHEEZING 07/06/2016 EREN MCDONALD APRN Ot Z79.82 LONG-TERM (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 07/06/2016 EREN MCDONALD STORE PROMOTER Ot Z79.899 OTHER FOOD SERVER (CURRENT) DRUG THERAPY 08/15/2016 LE GREEN, STANLEY [...] ABDOMINAL PAIN, UNSPECIFIED SITE 08/20/2016 BRETT JOHNSON UNDERWATER ROBOTICIST Ot 789.01 ABDOMINAL PAIN, RIGHT UPPER QUADRANT 08/20/2016 VEDA TOTH MD ([facility]) Ot Z02.71 ENCOUNTER FOR DISABILITY DETERMINATION [...] V72.84 EXAM PRE-OPERATIVE NOS 11/06/2016 BRETT JOHNSON UNDERWATER ROBOTICIST Ot 789.00 ABDOMINAL PAIN, UNSPECIFIED SITE 11/06/2016 BRETT JOHNSON UNDERWATER ROBOTICIST Ot 789.01 ABDOMINAL PAIN, RIGHT UPPER QUADRANT 11/06/2016 VEDA TOTH MD ([facility]) Ot Z02.71 ENCOUNTER FOR DISABILITY DETERMINATION 11/08/2016 BRETT JOHNSON UNDERWATER ROBOTICIST Ot R13.11 DYSPHAGIA, ORAL PHASE 11/23/2016 BRETT JOHNSON UNDERWATER ROBOTICIST Ot R13.11 DYSPHAGIA, ORAL PHASE 08/11/2017 CELESTE [...] PAIN 08/11/2017 NENA ALONSO MD, Ot Z79.82 FOOD SERVER (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 08/11/2017 NENA ALONSO [...] DISTRESS 08/29/2017 KRYSTIN WRIGHT MD, Ot Z79.82 FOOD SERVER (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 08/29/2017 KRYSTIN WRIGHT [...] DISTRESS 08/29/2017 KRYSTIN WRIGHT MD Ot Z79.82 LONG-TERM (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 08/29/2017 KRYSTIN WRIGHT [...] DISTRESS 08/29/2017 KRYSTIN WRIGHT MD, Ot Z79.82 FOOD SERVER (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 08/29/2017 KRYSTIN WRIGHT [...] UPPER QUADRANT 09/07/2017 JANEY GREEN, VEDA Marroquin ([facility]) Ot Z02.71 ENCOUNTER FOR DISABILITY DETERMINATION [...] PAIN 09/11/2017 NENA ALONSO MD Ot Z79.02 LONG-TERM (CURRENT) USE OF ANTITHROMBOTI 09/11/2017 NENA ALONSO [...] Procedures Code [place] [address] INDIV PSYTX 45/50 MIN 08/21/2012 34077 ROUTINE VENIPUNCTURE 08/22/2012 80056 MRI BRAIN W/CONTRAST 08/22/2012 82180 MRI BRAIN W/CONTRAST 08/22/2012 09447 MRI BRAIN W/O & W/DYE 08/22/2012 23447 CBC 08/22/2012 14765 CMP 08/22/2012 67449 LIPID PANEL 08/22/2012 0768927 GFR CALC (RESULT ONLY) 08/22/2012 03745 VIT B 12 08/23/2012 52106 ROUTINE VENIPUNCTURE 01/07/2013 62635 CBC 01/07/2013 50719 CMP 01/07/2013 05132 LIPID PANEL 01/07/2013 3588133 GFR CALC (RESULT ONLY) 01/07/2013 22647 TSH 01/08/2013 88345 VIT B 12 01/08/2013 32704 VITAMIN D 25-HYDROXY (D2,D3 , TOTAL) 01/08/2013 63978 THERAPUTIC INJ SQ/IM 02/03/2013 J3420 B12 VITAMIN INJECTION 02/03/2013 43865 A1C (IN-HOUSE) 02/03/2013 Stanley Pinto 02/03/2013 Podiatry Edith Sandoval 02/03/2013 45035 THERAPUTIC INJ SQ/IM 03/24/2013 J3420 B12 VITAMIN INJECTION 03/24/[address] ABDOMEN & PELVIS W/O CONTRAST 03/25/2013 17259 THERAPUTIC INJ SQ/IM 06/23/2013 J3420 B12 VITAMIN INJECTION 06/23/2013 44708 THERAPUTIC INJ SQ/IM 10/26/2013 J3420 B12 VITAMIN INJECTION 10/26/2013 66514 THERAPUTIC INJ SQ/IM 03/31/2014 J3420 B12 VITAMIN INJECTION 03/31/2014 13592 XRAY HIPS BILATERAL 03/31/2014 76549 ROUTINE VENIPUNCTURE 04/01/2014 81959 CBC 04/01/2014 4413490 GFR CALC (RESULT ONLY) 04/01/2014 82232 CMP 04/01/2014 34206 LIPID PANEL 04/01/2014 35436 TSH 04/01/2014 20034 ROUTINE VENIPUNCTURE 10/08/2014 12273 VIT B 12 10/08/2014 74210 PSYCH DIAGNOSTIC EVALUATION 10/08/2014 J3420 B12 VITAMIN INJECTION 10/12/2014 16121 THERAPUTIC INJ SQ/IM 10/12/2014 96603 THERAPUTIC INJ SQ/IM 01/12/2015 J3420 B12 VITAMIN [...] GROWTH Moderate Growth NRG Bacterial sputum culture [id number] NR Complete blood count (CBC) with automated white blood cell (WBC) differential - 09/21/17 06:25 Blood leukocytes automated count (number/volume) 18.3 10*3/uL 4.3-11.0 Blood erythrocytes automated count (number/volume) 4.47 10*6/uL 4.35-5.85 Venous blood hemoglobin measurement (mass/volume) 12.9 g/dL 11.5-16.0 Blood hematocrit (volume fraction) 39 % 35-52 Automated erythrocyte mean corpuscular volume 86 [foz_us] 80-99 Automated erythrocyte mean corpuscular hemoglobin (mass per erythrocyte) 29 pg 25-34 Automated erythrocyte mean corpuscular hemoglobin concentration measurement ( mass/volume) 33 g/dL 32-36 Automated erythrocyte distribution width ratio 14.0 % 10.0-14.5 Automated blood platelet count (count/volume) 479 10*3/uL 130-400 Automated blood platelet mean volume measurement 8.5 [foz_us] 7.4-10.4 Automated blood neutrophils/100 leukocytes 81 % 42-75 Automated blood lymphocytes/100 leukocytes 10 % 12-44 Blood monocytes/100 leukocytes 8 % 0-12 Automated blood eosinophils/100 leukocytes 0 % 0-10 Automated blood basophils/100 leukocytes 0 % 0-10 Blood neutrophils automated count (number/volume) 14.8 10*3 1.8-7.8 Blood lymphocytes automated count (number/volume) 1.9 10*3 1.0-4.0 Blood monocytes automated count (number/volume) 1.5 10*3 0.0-1.0 Automated eosinophil count 0.0 10*3/uL 0.0-0.3 Automated blood basophil count (count/volume) 0.0 10*3/uL 0.0-0.1 PT panel in platelet poor plasma by coagulation assay - 09/21/17 06:25 Prothrombin time (PT) in platelet poor plasma by coagulation assay 15.2 s 12.2-14.7 INR in platelet poor plasma or blood by coagulation assay 1.2 0.8-1.4 Activated partial thromboplastin time (aPTT) in platelet poor plasma bycoagulation assay - 09/21/17 06:25 Activated partial thromboplastin time (aPTT) in platelet poor plasma bycoagulation assay 42 s 24-35 Comprehensive metabolic panel - 09/21/17 06:25 Serum or plasma sodium measurement (moles/volume) 139 mmol/L 135-145 Serum or plasma potassium measurement (moles/volume) 3.4 mmol/L 3.6-5.0 Serum or plasma chloride measurement (moles/volume) 100 mmol/L 98-107 Carbon dioxide 24 mmol/L 21-32 Serum or plasma anion gap determination (moles/volume) 15 mmol/L 5-14 Serum or plasma urea nitrogen measurement (mass/volume) 6 mg/dL 7-18 Serum or plasma creatinine measurement (mass/volume) 0.79 mg/dL 0.60-1.30 Serum or plasma urea nitrogen/creatinine mass ratio 8 NRG Serum or plasma creatinine measurement with calculation of estimated glomerular filtration rate > NRG Serum or plasma glucose measurement (mass/volume) 155 mg/dL 70-105 Serum or plasma calcium measurement (mass/volume) 9.1 mg/dL 8.5-10.1 Serum or plasma total bilirubin measurement (mass/volume) 0.7 mg/dL 0.1-1.0 Serum or plasma alkaline phosphatase measurement (enzymatic activity/volume) 127 U/L 40-136 Serum or plasma aspartate aminotransferase measurement (enzymatic activity/ volume) 25 U/L 5-34 Serum or plasma alanine aminotransferase measurement (enzymatic activity/volume ) 23 U/L 0-55 Serum or plasma protein measurement (mass/volume) 7.2 g/dL 6.4-8.2 Serum or plasma albumin measurement (mass/volume) 3.2 g/dL 3.2-4.5 Blood lactic acid measurement (moles/volume) - 09/21/17 06:25 Blood lactic acid measurement (moles/volume) 0.84 mmol/L 0.50-2.00 Blood manual differential performed detection - 09/21/17 06:25 Blood monocytes/100 leukocytes 8 % NRG Manual blood segmented neutrophils/100 leukocytes 82 % NRG Blood band neutrophils/100 leukocytes 2 % NRG Manual blood lymphocytes/100 leukocytes 7 % NRG Manual eosinophils/100 leukocytes in nose 1 % NRG Manual blood basophils/100 leukocytes 0 % NRG Blood erythrocyte morphology finding identification NORMAL NRG Influenza virus A and B antigen detection - 09/21/17 09:22 FLU RESULT NEGATIVE FOR INFLUENZA A AND B ANTIGENS BY IA NRG Encounters ACCT No. Visit Date/Time Discharge Status Pt. Type Provider Facility Loc./Unit Complaint [id number] 01/12/2015 09:42:00 01/12/2015 23:59:59 CLS Outpatient CAROLYN ALVARADO DO [id number] 10/12/2014 16:34:00 10/12/2014 23:59:59 CLS Outpatient BRETT JOHNSON APRN [id number] 10/08/2014 09:10:00 10/08/2014 23:59:59 CLS Outpatient BRETT JOHNSON APRN [id number] 04/01/2014 08:55:00 04/01/2014 23:59:59 CLS Outpatient CAROLYN ALVARADO DO [id number] 03/31/2014 12:32:00 03/31/2014 23:59:59 CLS Outpatient BRETT JOHNSON APRN [id number] 02/10/2014 00:00:00 02/10/2014 23:59:59 CLS Outpatient BRETT JOHNSON APRN [id number] 10/26/2013 15:08:00 10/26/2013 23:59:59 CLS Outpatient BRETT JOHNSON APRN [id number] 06/23/2013 16:28:00 06/23/2013 23:59:59 CLS Outpatient BRETT JOHNSON APRN [id number] 08/22/2012 11:08:00 08/22/2012 23:59:59 CLS Outpatient BRETT JOHNSON APRN [id number] 05/27/2012 15:00:00 05/27/2012 23:59:59 CLS Outpatient BRETT JOHNSON APRN [id number] 03/24/2013 16:33:00 Document Registration [id number] 03/24/2013 16:33:00 Document Registration [id number] 03/09/2013 13:37:00 Document Registration [id number] 02/03/2013 15:10:00 Document Registration [id number] 02/03/2013 15:10:00 Document Registration [id number] 01/27/2013 13:19:00 Document Registration [id number] 01/07/2013 10:11:00 Document Registration [id number] 01/02/2013 11:06:00 Document Registration [id number] 09/09/2017 09:59:00 09/09/2017 12:23:00 DIS Outpatient CELESTE GREEN, NENA Conti [facility] ER PAIN AFTER SURGERY [id number] 09/07/2017 12:15:00 09/07/2017 13:38:00 DIS Emergency SURI HARRISON UNDERWATER ROBOTICIST [facility] ER FEELS LOW ON O2 [id number] 09/02/2017 10:37:00 09/02/2017 23:59:59 CLS Preadmit KHALIDA PERERA APRN [facility] RT J45.909 ASTHMA [id number] 09/02/2017 10:32:00 09/02/2017 23:59:59 CLS Outpatient HEBERT LAZO MD [facility] CARD PERICARDIAL EFFUSION I31.3 [id number] 08/30/2017 07:14:00 08/30/2017 23:59:59 CLS Outpatient HEBERT LAZO MD [facility] CARD R07.9 [id number] 08/28/2017 23:07:00 08/29/2017 15:55:00 DIS Inpatient KRYSTIN WRIGHT MD [facility] ICU CHEST PAIN,PERICARDIAL EFFUSIAN [id number] 08/11/2017 07:09:00 08/11/2017 10:08:00 DIS Emergency CELESTE GREEN, NENA Conti [facility] ER CHEST, BACK, SIDE PAIN [id number] 11/07/2016 09:55:00 11/07/2016 23:59:59 CLS Outpatient BRETT JOHNSON [facility] RAD ORAL PHASE DYSPHAGIA [id number] 08/20/2016 08:10:00 08/20/2016 12:00:00 DIS [facility]; GERD [id number] 08/15/2016 05:38:00 08/15/2016 11:23:00 DIS Outpatient STANLEY LUJAN MD [facility] PREOP ABNORMAL BOWEL MOVEMENT;GERD [id number] 07/05/2016 15:54:00 07/05/2016 17:14:00 DIS Emergency EREN MCDONALD APRN [facility] ER FLU LIKE SYMPTOMS [id number] 11/14/2015 10:15:00 11/14/2015 23:59:59 CLS Outpatient VEDA TOTH MD (DDU) [facility] RAD DDU [id number] 11/08/2015 01:37:00 11/08/2015 03:11:00 DIS Emergency NENA ALONSO MD [facility] ER HIGH BLOOD PRESSURE [id number] 08/14/2015 18:30:00 08/14/2015 22:14:00 DIS Emergency JACQUELINE JIMENEZ DO K [facility] ER RIGHT SIDE PAIN [id number] 07/18/2015 12:39:00 07/18/2015 15:25:00 DIS Emergency LISE RAVI [facility] ER FEET/LEGS SWELLING/ PAIN [id number] 04/02/2013 11:06:00 04/02/2013 23:59:59 CLS Outpatient BRETT JOHNSON [facility] RAD MASS FOUND IN CT [id number] 03/30/2013 13:03:00 03/30/2013 23:59:59 CLS Outpatient BRETT JOHNSON [facility] RAD UPPER QUAD PAIN [id number] 03/16/2013 11:00:00 03/16/2013 13:55:00 DIS Outpatient STANLEY LUJAN MD [facility] SDC DYSPHAGIA [id number] 03/12/2013 07:13:00 03/12/2013 23:59:59 CLS Outpatient STANLEY LUJAN MD [facility] PREOP DYSPHAGIA [id number] 09/21/2017 06:43:00 Document Registration [id number] 07/18/2015 12:39:00 Document Registration [id number] 12/24/2012 09:46:00 Document Registration [id number] 09/02/2012 08:09:00 Document Registration [id number] 05/21/2012 16:23:00 Document Registration [id number] 04/29/2012 14:12:00 Document Registration [id number] 09/18/2011 10:00:00 Document Registration [id number] 09/01/2011 19:39:00 Document Registration [id number] 07/20/2011 07:06:00 Document Registration [id number] 06/25/2011 09:07:00 Document Registration
[2017-09-21 12:48] LABS: BILIRUBIN,URINE NEGATIVE (NEGATIVE); CLARITY,URINE SLIGHTLY CLOUDY; COLOR,URINE YELLOW; GLUCOSE, URINE (UA) NEGATIVE (NEGATIVE); KETONES,URINE NEGATIVE (NEGATIVE); LEUKOCYTE ESTERASE ,URINE 1+ (NEGATIVE); NITRITE,URINE NEGATIVE (NEGATIVE); PH,URINE 6 (5-9); PROTEIN,URINE 2+ (NEGATIVE); UROBILINOGEN,URINE 1 MG/DL (NORMAL)
[2017-09-21 13:10] LABS: BACTERIA,URINE NEGATIVE /HPF; RBC,URINE RARE /HPF; WBC,URINE RARE /HPF
[2017-09-21] MEDS ORDERED: ONDANSETRON 4 MG/2 ML (SDV) Z0FRAN IV PRN (13:45)
[2017-09-21] MEDS: NS IV 1000 ML 1,000 ML IV SCH (14:22)
--- NOTE | 2017-09-21 15:22 | Consultation ---
History of Present Illness History of Present Illness Patient Consulted On(missy/time) 09/21/17 12:15 Date Seen by Provider: Sep 21, 2017 Time Seen by Provider: 12:15 History of Present Illness Consult requested by Dr. Osborn for pleural effusion patient is a 52 year old female who has recent history of pericardial window. She was having significant difficulty breathing this morning. She had EMS bring her to emergency department. She had to use bipap to assist her breathing. She is leaning forward saying it's easier to breath this way. she also is having some left sided chest pain, worse with breathing. She has had cough and fever. She has some pain along left chest wall, moderate no radiation. She has ct showing b/l pneumonia and left moderate pleural effusion. Allergies and Home Medications Allergies Coded Allergies: buspirone HCl (Verified Allergy, Unknown, 08/14/15) etodolac (Verified Allergy, Unknown, 08/14/15) NSAIDS (Non-Steroidal Anti-Inflamma (Verified Adverse Reaction, Unknown, 08/14/15) Neuromuscular Blockers, Steroidal (Verified Adverse Reaction, Unknown, ) gabapentin (Verified Adverse Reaction, Unknown, 08/14/15) Home Medications Albuterol Sulfate 1 Puff Puff, 2 PUFF INH QID PRN for SHORTNESS OF BREATH, ( Reported) Albuterol Sulfate 2.5 Mg/3 Ml Vial.neb, 2.5 MG NEB Q4H PRN for SHORTNESS OF BREATH, (Reported) Alprazolam 0.5 Mg Tablet, 0.5 MG PO QID PRN for ANXIETY, (Reported) Amiodarone HCl 200 Mg Tablet, (Reported) Atenolol 100 Mg Tablet, 50 MG PO BID, (Reported) TAKES 1/2 (100MG) TABLET Cetirizine HCl 10 Mg Tablet, 10 MG PO DAILY, (Reported) Cholecalciferol (Vitamin D3) 1,000 Unit Tablet, 1,000 UNIT PO BID, (Reported) Cyanocobalamin 1,000 Mcg/Ml Inj, 1,000 MCG IJ MONTHLY, (Reported) Dicyclomine HCl 20 Mg Tablet, 20 MG PO QID PRN for STOMACH UPSET, (Reported) Docusate Sodium 100 Mg Capsule, 100 MG PO BID, #60 Prescribed by: NENA WATERS on 09/09/17 1222 Doxycycline Hyclate 100 Mg Tablet, 100 MG PO BID, #20 Prescribed by: NENA WATERS on 09/09/17 1217 Fluticasone Propionate 16 Gm [place].susp, 1 SPRAY NS BID, (Reported) Fluticasone/Salmeterol 1 Each Blst.w.dev, 1 PUFF IH BID, (Reported) Furosemide 20 Mg Tablet, (Reported) Guaifenesin/Dextromethorphan 5 Ml Syrup, 10 ML PO Q6H PRN for COUGH, (Reported) Hydrocodone Bit/Acetaminophen 1 Each Tablet, 1 EACH PO Q4H PRN for PAIN- MODERATE TO SEVERE, #10 Prescribed by: NENA WATERS on 09/09/17 1217 Ibuprofen 600 Mg Tablet, 600 MG PO Q6H PRN for PAIN-MODERATE, #100 Ref 0 Prescribed by: HEBERT LAZO on 08/29/17 1300 Ketorolac Tromethamine 10 Mg Tablet, 10 MG PO Q6H PRN for CHEST PAIN, (Reported) [place] 3 Polyunsat Fatty Acids 1,000 Mg Cap, 2,000 MG PO BID, (Reported) Omeprazole 40 Mg Capsule.dr, 40 MG PO DAILY, (Reported) Potassium Chloride 10 Meq Tablet.er, (Reported) Ranitidine HCl 150 Mg Tablet, 150 MG PO BID, (Reported) Past Qidtflg-Chnebp-Ebyhdp Hx Patient Social History Alcohol Use: Denies Use Recreational Drug Use: No Smoking Status: Current Everyday Smoker Type Used: Cigarettes 2nd Hand Smoke Exposure: Yes Recent Foreign Travel: No Contact w/Someone Who Travel: No Recent Infectious Disease Expo: No Recent Hopitalizations: Yes (09/08 HEART SURGERY AT [place]) Immunizations Up To Date Date of Pneumonia Vaccine: Jun 07, 2016 Date of Influenza Vaccine: Jun 07, 2016 Seasonal Allergies Seasonal Allergies: Yes Surgeries History of Surgeries: Yes (HERNIA REPAIR, OVARIAN CYST REMOVAL, C/S X2, oral) Surgeries: Abdominal, Appendectomy, Section, Gallbladder, Hysterectomy , Oophorectomy Respiratory History of Respiratory Disorde: Yes (Tobaccoism) Respiratory Disorders: Asthma, Pneumonia, Pulmonary Embolism, Sleep Apnea, COPD , Emphysema Cardiovascular History of Cardiac Disorders: Yes (Pericardial effusion) Cardiac Disorders: Atrial Fibrillation, Chronic Edema/Swelling, Deep Vein Thrombosis, High Cholesterol, Hypertension Neurological History of Neurological Disord: Yes (PSEUDO SEIZURES ) Neurological Disorders: Seizure Disorder 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 System : No Hx 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 Disorders: Yes Female 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 Disorders: 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 History: Hysterectomy, 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 Genitourinary History of Genitourinary Disor: No Gastrointestinal History of Gastrointestinal Di: Yes (CHOKES EASILY) Gastrointestinal Disorders: Gastroesophageal Reflux, Diverticulosis, Hiatal Hernia, Ulcer, Gall Bladder Disease, Irritable Bowel Musculoskeletal History of Musculoskeletal Dis: Yes (CHRONIC KNEE AND HIP PAIN, spinal stenosis ) Musculoskeletal Disorders: Osteoporosis, Arthritis, Chronic Back Pain Endocrine History of Endocrine Disorders: No HEENT History of HEENT Disorders: No Cancer History of Cancer: No Psychosocial History of Psychiatric Problem: Yes Behavioral Health Disorders: Pseudo Seizures, Anxiety Integumentary History of Skin or Integumenta: Yes Skin/Integumentary Disorders: Eczema Blood Transfusions History of Blood Disorders: No Adverse Reaction to a Blood Tr: No Family Medical History Significant Family History: No Pertinent Family Hx Family Medial History: FH: cirrhosis 19 MOTHER FH: liver cancer 19 MOTHER FHx: lung cancer 19 FATHER Hypertension 19 FATHER 19 MOTHER Review of Systems-General Constitutional: see HPI EENTM: no symptoms reported Respiratory: see HPI Cardiovascular: see HPI Gastrointestinal: no symptoms reported Genitourinary: no symptoms reported Musculoskeletal: no symptoms reported Skin: no symptoms reported Psychiatric/Neurological: No Symptoms Reported Physical Exam-General Problems Physical Exam Vital Signs Vital Sign - Last 12Hours 09/21/17 09/21/17 09/21/17 06:21 06:25 06:30 Temp 97.1 Pulse 90 Resp 32 B/P (MAP) 109/74 (86) Pulse Ox 97 O2 Delivery NIV/CPAP O2 Flow Rate 30.00 FiO2 30 Capillary Refill : Less Than 3 Seconds General Appearance: mild distress (leaning forward) HEENT: PERRL/EOMI Neck: supple Respiratory: no accessory muscle use, crackles Cardiovascular: regular rate, rhythm Gastrointestinal: non tender, soft, no organomegaly Rectal: deferred Back: normal inspection, no CVA tenderness Extremities: non-tender, normal inspection Neurologic/Psychiatric: no motor/sensory deficits, alert, normal mood/affect, oriented x 3 Skin: warm/dry Comments left chest wall slight tenderness Data Review Labs Laboratory Tests 09/21/17 06:25: White Blood Count 18.3H, Red Blood Count 4.47, Hemoglobin 12.9, Hematocrit 39, Mean Corpuscular Volume 86, Mean Corpuscular Hemoglobin 29, Mean Corpuscular Hemoglobin Concent 33, Red Cell Distribution Width 14.0, Platelet Count 479H, Mean Platelet Volume 8.5, Neutrophils (%) (Auto) 81H, Lymphocytes (%) (Auto) 10L , Monocytes (%) (Auto) 8, Eosinophils (%) (Auto) 0, Basophils (%) (Auto) 0, Neutrophils # (Auto) 14.8H, Lymphocytes # (Auto) 1.9, Monocytes # (Auto) 1.5H, Eosinophils # (Auto) 0.0, Basophils # (Auto) 0.0, Neutrophils % (Manual) 82, Lymphocytes % (Manual) 7, Monocytes % (Manual) 8, Eosinophils % (Manual) 1, Basophils % (Manual) 0, Band Neutrophils 2, Blood Morphology Comment NORMAL, Prothrombin Time 15.2H, INR Comment 1.2, Activated Partial Thromboplast Time 42H , Sodium Level 139, Potassium Level 3.4L, Chloride Level 100, Carbon Dioxide Level 24, Anion Gap 15H, Blood Urea Nitrogen 6L, Creatinine 0.79, Estimat Glomerular Filtration Rate > 60, BUN/Creatinine Ratio 8, Glucose Level 155H, Lactic Acid Level 0.84, Calcium Level 9.1, Total Bilirubin 0.7, Aspartate Amino Transf (AST/SGOT) 25, Alanine Aminotransferase (ALT/SGPT) 23, Alkaline Phosphatase 127, Total Protein 7.2, Albumin 3.2 09/21/17 12:40: Urine Color YELLOW, Urine Clarity SLIGHTLY CLOUDY, Urine pH 6, Urine Specific [place] 1.015L, Urine Protein 2+H, Urine Glucose (UA) NEGATIVE, Urine Ketones NEGATIVE, Urine Nitrite NEGATIVE, Urine Bilirubin NEGATIVE, Urine Urobilinogen 1 , Urine Leukocyte Esterase 1+H, Urine RBC (Auto) 1+H, Urine RBC RARE, Urine WBC RARE, Urine Squamous Epithelial Cells 5-10, Urine Crystals NONE, Urine Bacteria NEGATIVE, Urine Casts NONE, Urine Mucus NEGATIVE, Urine Culture Indicated NO Microbiology 09/21/17 Influenza Types A,B Antigen (RACHEL) - Final, Complete Assessment/Plan Assessment/Plan Assessment/Plan b/l pneumonia moderate left pleural effusion recent history of pericardial window patient being admitted to ICU repeat chest x ray in am if no improvement will plan left thoracentesis KARLO WALDRON DO Sep 21, 2017 15:22
[2017-09-21] MEDS ORDERED: RT-ALBUTEROL SULF 2.5 MG/3 ML PRE-MIX VIAL INH PRN (16:30)
[2017-09-21] MEDS ORDERED: DICYCLOMINE 10 MG (BENTYL) CAP PO PRN (17:00)
[2017-09-21] MEDS: PIPERACILLIN/TAZOBACTAM 4.5 GM/NS 100 ML IVPB IV SCH ×4 (17:03→23:15)
[2017-09-21] MEDS: RT-ADVAIR HFA 115/21 MCG PER PUFF IH SCH (19:42)
[2017-09-21] MEDS: FLUTICASONE NASAL SPRAY (FLONASE) 16 GM BTL NS SCH (20:46)
[2017-09-21] MEDS: OMEGA 3 (FISH OIL) 1000 MG CAP PO SCH (20:48)
[2017-09-21] MEDS: DOCUSATE SODIUM 100 MG (COLACE) CAP PO SCH (20:48)
[2017-09-21] MEDS: ATENOLOL 50 MG (TENORMIN) TAB PO SCH (20:48)
[2017-09-21] MEDS: VITAMIN D3 1,000 UNITS (CHOLECALCIFEROL) TABLET PO SCH (20:48)
[2017-09-21] MEDS: ALPRAZolam 0.5 MG (XANAX) TAB PO PRN (20:48)
[2017-09-22] VITALS (27 sets, daily range): BP systolic 90–138; BP diastolic 54–87
[2017-09-22 03:52] LABS: BASOPHILS % (AUTO) 0 % (0-10); EOSINOPHILS % (AUTO) 0 % (0-10); HEMATOCRIT 33 % (35-52); HEMOGLOBIN 10.9 G/DL (11.5-16.0); LYMPHOCYTES # (AUTO) 1.3 X 10^3 (1.0-4.0); LYMPHOCYTES % (AUTO) 11 % (12-44); MEAN CORPUSCULAR HEMOGLOBIN 29 PG (25-34); MEAN CORPUSCULAR HGB CONC 33 G/DL (32-36); MEAN CORPUSCULAR VOLUME 88 FL (80-99); MEAN PLATELET VOLUME 8.8 FL (7.4-10.4); MONOCYTES # (AUTO) 0.7 X 10^3 (0.0-1.0); MONOCYTES % (AUTO) 6 % (0-12); NEUTROPHILS # (AUTO) 10.7 X 10^3 (1.8-7.8); NEUTROPHILS % (AUTO) 84 % (42-75); PLATELET COUNT 421 10^3/uL (130-400); RED BLOOD COUNT 3.77 10^6/uL (4.35-5.85); RED CELL DISTRIBUTION WIDTH 13.6 % (10.0-14.5); WHITE BLOOD COUNT 12.8 10^3/uL (4.3-11.0)
[2017-09-22 04:14] LABS: ALANINE AMINOTRANSFERASE 51 U/L (0-55); ALBUMIN 2.9 GM/DL (3.2-4.5); ALKALINE PHOSPHATASE 113 U/L (40-136); BILIRUBIN,TOTAL 0.3 MG/DL (0.1-1.0); BUN/CREATININE RATIO 15; CARBON DIOXIDE 27 MMOL/L (21-32); CHLORIDE 100 MMOL/L (98-107); CREATININE SERUM 0.82 MG/DL (0.60-1.30); GFR ESTIMATED > 60; GLUCOSE 155 MG/DL (70-105); MAGNESIUM 1.8 MG/DL (1.8-2.4); POTASSIUM 3.3 MMOL/L (3.6-5.0); SODIUM 142 MMOL/L (135-145); TOTAL PROTEIN 6.5 GM/DL (6.4-8.2)
[2017-09-22] MEDS: RT-ADVAIR HFA 115/21 MCG PER PUFF IH SCH ×2 (06:22→20:20)
[2017-09-22] MEDS: PANTOPRAZOLE 40 MG (PROTONIX) TAB PO SCH (08:13)
[2017-09-22] MEDS: DOCUSATE SODIUM 100 MG (COLACE) CAP PO SCH ×2 (08:13→20:32)
[2017-09-22] MEDS: ALPRAZolam 0.5 MG (XANAX) TAB PO PRN ×2 (08:13→20:32)
[2017-09-22] MEDS: LORATADINE (CLARITIN) 10 MG TAB PO SCH (08:14)
[2017-09-22] MEDS: AMIODARONE 200 MG (CORDARONE) TAB PO SCH (08:14)
[2017-09-22] MEDS: VITAMIN D3 1,000 UNITS (CHOLECALCIFEROL) TABLET PO SCH ×2 (08:14→20:32)
[2017-09-22] MEDS: OMEGA 3 (FISH OIL) 1000 MG CAP PO SCH ×2 (08:14→20:32)
[2017-09-22] MEDS: ATENOLOL 50 MG (TENORMIN) TAB PO SCH ×2 (08:14→20:33)
[2017-09-22] MEDS ORDERED: KCL 20 MEQ TAB (K-DUR) PO NR ×2 (08:15→10:15)
[2017-09-22] MEDS ORDERED: INFLUENZA TRIvalent 2017-2018 0.5 ML/45 MCG SYR IM ONE (08:15)
[2017-09-22] MEDS: FLUTICASONE NASAL SPRAY (FLONASE) 16 GM BTL NS SCH ×2 (08:17→20:33)
[2017-09-22] MEDS: NS IV 1000 ML 1,000 ML IV SCH (08:19)
[2017-09-22] MEDS: PIPERACILLIN/TAZOBACTAM 4.5 GM/NS 100 ML IVPB IV SCH ×4 (08:33→15:07)
--- NOTE | 2017-09-22 10:18 | Diagnostic Imaging Report ---
EXAMINATION: Chest radiograph, portable AP view. DATE: 09/22/2017 at 0514 hours. INDICATION: 52-year-old female, pneumonia. Left-sided pleural effusion. COMPARISON: 09/21/2017. FINDINGS: Stable overall appearance of the cardiomediastinal silhouette. There is no identified pneumothorax. There is persistent consolidation in the left mid and lower lung zones which appears increased since comparison exam. There is likely a left pleural effusion. There is mild prominence of pulmonary vascular markings on the right. IMPRESSION: 1. Interval increase in left mid and lower lung zone airspace consolidation with at least moderate sized left pleural effusion. Dictated by: Dictated on workstation # [id number]
--- NOTE | 2017-09-22 10:49 | Diagnostic Imaging Report ---
EXAM: Ultrasound chest. DATE: September 22, 2017. INDICATION: 52-year-old female, left pleural effusion. COMPARISON: CT chest September 21, 2017. FINDINGS: Ultrasound was utilized for assistance for guidance with thoracentesis. IMPRESSION: 1. Ultrasound utilized for assistance with thoracentesis. Dictated by: Dictated on workstation # [id number]
--- NOTE | 2017-09-22 11:29 | Diagnostic Imaging Report ---
EXAMINATION: Chest radiograph, portable AP view. DATE: 09/22/2017 at 1116 hours. INDICATION: 52-year-old female, status post left thoracentesis. COMPARISON: 09/22/2017 at 0514 hrs. FINDINGS: Stable overall appearance of the cardiomediastinal silhouette. There is no identified pneumothorax. There is interval improved aeration of the left mid and lower lung zones with persistent blunting of the left lateral costophrenic angle and nonspecific left basilar airspace consolidation. Pulmonary vascular markings are mildly prominent. IMPRESSION: 1. Interval improvement of the left lung likely relating to decreased left pleural fluid. Persistent blunting of the left lateral costophrenic angle and nonspecific left basilar airspace consolidation which may relate to infiltrate, small effusion, and/or atelectasis. 2. Bilateral interstitial opacities most likely relating to pulmonary interstitial edema. Dictated by: Dictated on workstation # [id number]
[2017-09-22] MEDS: HYDROcodone/APAP 5 MG/325 MG (LORTAB) TAB PO PRN ×2 (12:04→20:32)
[2017-09-22] MEDS ORDERED: ALBUMIN 25% 25 GM/100 ML 50 ML IV NR (13:00)
[2017-09-22] MEDS ORDERED: FUROSEMIDE 40 MG/4 ML INJ (LASIX) IVP NR (13:00)
--- NOTE | 2017-09-22 13:09 | History & Physicial (CHS) ---
HPI History of Present Illness: Pt presented to ED by EMS with report of feeling short of breath and fever. On EMS arrival, they noted the patient had significant crackles and were concerned about pulmonary edema and initiated CPAP right away. Initial O2 sat was 93 percent and initial blood pressures in the 120s. Patient also did receive Solu- Medrol 125 mg IV as well as 1.25 mg of Versed IV for anxiety. Doing better on arrival about not moving much air. Still complaining about the mask and left lower rib pain. She believes that she has rib fractures. Does have history of pericardial effusion requiring pericardial window or similar procedure and about 10 days ago was initiated on antibiotic treatment for concerns of possible pneumonia. Finished antibiotics 2 days ago. Patient does report that she's had a fever and increasing shortness of breath. She complains of cough. She uses a pillow for splinting when coughing. Complains of pain to the left lower chest wall is been going on for a few weeks since her surgery. Missed her follow up appointment with [facility] who did her pericardial window that was scheduled for last week because she had car trouble. States she was told that she should be on home oxygen by one of the people at his office. Also states she has spinal stenosis and sits on the couch with her legs crossed and wonders if that is why she has fluid around her lungs. Source: patient, old records Exam Limitations: no limitations Date seen by provider: Sep 22, 2017 Time Seen by Provider: 09:15 Attending Physician Nydia Beltran DO PCP Jose Sams MD Consult Dr. Villegas Date of Admission Sep 21, 2017 at 10:35 Home Medications Home Medications Reviewed patient Home Medication Reconciliation Form Allergies Coded Allergies: buspirone HCl (Verified Allergy, Unknown, 08/14/15) etodolac (Verified Allergy, Unknown, 08/14/15) NSAIDS (Non-Steroidal Anti-Inflamma (Verified Adverse Reaction, Unknown, 08/14/15) Neuromuscular Blockers, Steroidal (Verified Adverse Reaction, Unknown, ) gabapentin (Verified Adverse Reaction, Unknown, 08/14/15) [id number] Hx Patient Social History Marrital Status: single Living Status: lives at home Employed/Student: unemployed Alcohol Use: Denies Use Recreational Drug Use: No Smoking Status: Current Everyday Smoker Type Used: Cigarettes 2nd Hand Smoke Exposure: Yes Recent Foreign Travel: No Contact w/other who traveled: No Recent Hopitalizations: Yes (09/08 HEART SURGERY AT [facility]) Recent Infectious Disease Expo: No Physical Abuse Screen: No Sexual Abuse: No Immunizations Up To Date Date of Pneumonia Vaccine: Jun 07, 2016 Date of Influenza Vaccine: Jun 07, 2016 Past Medical History HTN Tobaccoism Previous Femoral DVT during Pericardial Effusion, s/p pericardial window 08/2017 Anxiety Depression Epilepsy Chronic Pain COPD Chronic Sinusitis GERD B12 Deficiency Surgical History: Cholecystectomy Hiatal hernia repair Umbilical hernia repair Dental Surgery Appendectomy Total Hysterectomy Section x2 EGD Colonoscopy Family Medical History Family History: FH: cirrhosis 19 MOTHER FH: liver cancer 19 MOTHER FHx: lung cancer 19 FATHER Hypertension 19 FATHER 19 MOTHER Review of Systems (CHC) Constitutional: see HPI, malaise, weakness EENTM: nose congestion Respiratory: see HPI, cough, dyspnea on exertion, orthopnea, short of breath, wheezing Cardiovascular: see HPI Gastrointestinal: no symptoms reported Genitourinary: frequency : No Musculoskeletal: no symptoms reported Skin: no symptoms reported Psychiatric/Neurological: Anxiety Reviewed Test Results Reviewed Test Results Lab Laboratory Tests Test 09/21/17 06:25 09/21/17 12:40 09/22/17 03:10 Range/Units White Blood Count 18.3 H 12.8 H 4.3-11.0 10^3/uL Red Blood Count 4.47 3.77 L 4.35-5.85 10^6/uL Hemoglobin 12.9 10.9 L 11.5-16.0 G/DL Hematocrit 39 33 L 35-52 % Mean Corpuscular Volume 86 88 80-99 FL Mean Corpuscular Hemoglobin 29 29 25-34 PG Mean Corpuscular Hemoglobin Concent 33 33 32-36 G/DL Red Cell Distribution Width 14.0 13.6 10.0-14.5 % Platelet Count 479 H 421 H 130-400 10^3/uL Mean Platelet Volume 8.5 8.8 7.4-10.4 FL Neutrophils (%) (Auto) 81 H 84 H 42-75 % Lymphocytes (%) (Auto) 10 L 11 L 12-44 % Monocytes (%) (Auto) 8 6 0-12 % Eosinophils (%) (Auto) 0 0 0-10 % Basophils (%) (Auto) 0 0 0-10 % Neutrophils # (Auto) 14.8 H 10.7 H 1.8-7.8 X 10^3 Lymphocytes # (Auto) 1.9 1.3 1.0-4.0 X 10^3 Monocytes # (Auto) 1.5 H 0.7 0.0-1.0 X 10^3 Eosinophils # (Auto) 0.0 0.0 0.0-0.3 10^3/uL Basophils # (Auto) 0.0 0.0 0.0-0.1 10^3/uL Neutrophils % (Manual) 82 % Lymphocytes % (Manual) 7 % Monocytes % (Manual) 8 % Eosinophils % (Manual) 1 % Basophils % (Manual) 0 % Band Neutrophils 2 % Blood Morphology Comment NORMAL Prothrombin Time 15.2 H 12.2-14.7 SEC INR Comment 1.2 0.8-1.4 Activated Partial Thromboplast Time 42 H 24-35 SEC Sodium Level 139 142 135-145 MMOL/L Potassium Level 3.4 L 3.3 L 3.6-5.0 MMOL/L Chloride Level 100 100 98-107 MMOL/L Carbon Dioxide Level 24 27 21-32 MMOL/L Anion Gap 15 H 15 H 5-14 MMOL/L Blood Urea Nitrogen 6 L 12 7-18 MG/DL Creatinine 0.79 0.82 0.60-1.30 MG/DL Estimat Glomerular Filtration Rate > 60 > 60 BUN/Creatinine Ratio 8 15 Glucose Level 155 H 155 H 70-105 MG/DL Lactic Acid Level 0.84 0.50-2.00 MMOL/L Calcium Level 9.1 9.0 8.5-10.1 MG/DL Total Bilirubin 0.7 0.3 0.1-1.0 MG/DL Aspartate Amino Transf (AST/SGOT) 25 75 H 5-34 U/L Alanine Aminotransferase (ALT/SGPT) 23 51 0-55 U/L Alkaline Phosphatase 127 113 40-136 U/L Total Protein 7.2 6.5 6.4-8.2 GM/DL Albumin 3.2 2.9 L 3.2-4.5 GM/DL Urine Color YELLOW Urine Clarity SLIGHTLY CLOUDY Urine pH 6 5-9 Urine Specific [place] 1.015 L 1.016-1.022 Urine Protein 2+ H NEGATIVE Urine Glucose (UA) NEGATIVE NEGATIVE Urine Ketones NEGATIVE NEGATIVE Urine Nitrite NEGATIVE NEGATIVE Urine Bilirubin NEGATIVE NEGATIVE Urine Urobilinogen 1 NORMAL MG/DL Urine Leukocyte Esterase 1+ H NEGATIVE Urine RBC (Auto) 1+ H NEGATIVE Urine RBC RARE /HPF Urine WBC RARE /HPF Urine Squamous Epithelial Cells 5-10 /HPF Urine Crystals NONE /LPF Urine Bacteria NEGATIVE /HPF Urine Casts NONE /LPF Urine Mucus NEGATIVE /LPF Urine Culture Indicated NO Magnesium Level 1.8 1.8-2.4 MG/DL C-Reactive Protein High Sensitivity > 15.00 H 0.00-0.50 MG/DL Radiology CXR 09/21/17 The appearance of the chest has worsened since the prior exam as the left lung base is now opacified by atelectasis/infiltrate and fluid. A followup study would be recommended for continued evaluation. CT Chest/Abd 09/21/17 1. Bilateral effusions left greater than right with bibasal infiltrates left also greater than right. 2. Emphysematous disease. 3. Shotty lymph nodes in the mediastinum most likely reactive. This could be followed to assure complete resolution. Other incidental findings as noted above. 4. Pericardial effusion. CXR 09/22/17 Interval increase in left mid and lower lung zone airspace consolidation with at least moderate sized left pleural effusion. Physical Exam-(CHC) Physical Exam Vital Signs VS - Last 72 Hours, by Label 09/21/17 09/21/17 09/21/17 09/21/17 06:21 06:25 06:30 08:00 Temp 97.1 97.1 Pulse 90 86 Resp 32 30 B/P (MAP) 109/74 (86) Pulse Ox 97 97 96 O2 Delivery NIV/CPAP NIV CPAP O2 Flow Rate 30.00 FiO2 30 09/21/17 09/21/17 09/21/17 09/21/17 11:59 12:15 13:00 14:30 Temp 97.1 Pulse 74 71 74 Resp 26 11 B/P (MAP) 105/77 (86) Pulse Ox 96 94 97 O2 Delivery Nasal Cannula Nasal Cannula Nasal Cannula O2 Flow Rate 4.00 4.00 4.00 09/21/17 09/21/17 09/21/17 09/21/17 15:00 15:28 16:00 17:00 Pulse 73 69 63 Resp 24 22 25 B/P (MAP) 106/74 (85) 118/77 (91) 118/77 (91) Pulse Ox 96 95 94 O2 Delivery Nasal Cannula Nasal Cannula Nasal Cannula Nasal Cannula O2 Flow Rate 4.00 4.00 4.00 4.00 09/21/17 09/21/17 09/21/17 09/21/17 18:00 19:00 19:00 19:42 Pulse 69 71 71 Resp 22 15 B/P (MAP) 111/84 (93) 110/74 (86) Pulse Ox 95 94 94 O2 Delivery Nasal Cannula Nasal Cannula Nasal Cannula O2 Flow Rate 4.00 3.50 4.00 09/21/17 09/21/17 09/21/17 09/21/17 20:00 20:00 21:00 22:00 Temp 97.1 Pulse 72 70 68 Resp 28 17 19 B/P (MAP) 107/70 (82) 110/77 (88) 113/79 (90) Pulse Ox 94 95 96 96 O2 Delivery Nasal Cannula Nasal Cannula Nasal Cannula Nasal Cannula O2 Flow Rate 3.50 3.50 3.50 3.50 09/21/17 09/21/17 09/22/17 09/22/17 22:03 23:00 00:00 00:00 Temp 96.8 Pulse 70 71 Resp 33 22 B/P (MAP) 111/70 (84) 117/67 (84) Pulse Ox 95 96 96 96 O2 Delivery Nasal Cannula Nasal Cannula Nasal Cannula Nasal Cannula O2 Flow Rate 4.00 3.50 3.50 3.50 09/22/17 09/22/17 09/22/17 09/22/17 01:00 01:00 02:00 03:00 Pulse 72 72 64 59 Resp 19 20 21 B/P (MAP) 98/61 (73) 96/56 (69) 104/67 (79) Pulse Ox 97 96 96 O2 Delivery Nasal Cannula Nasal Cannula Nasal Cannula O2 Flow Rate 3.50 3.50 3.50 09/22/17 09/22/17 09/22/17 09/22/17 04:00 04:00 05:00 06:00 Pulse 61 59 60 Resp 22 17 15 B/P (MAP) 95/56 (69) 105/72 (83) 101/54 (70) Pulse Ox 97 96 97 96 O2 Delivery Nasal Cannula Nasal Cannula Nasal Cannula Nasal Cannula O2 Flow Rate 3.50 3.50 3.50 3.50 09/22/17 09/22/17 09/22/17 09/22/17 06:22 07:00 07:00 08:00 Pulse 63 64 Resp 19 B/P (MAP) 100/63 (75) Pulse Ox 97 96 97 O2 Delivery Nasal Cannula Nasal Cannula Nasal Cannula O2 Flow Rate 4.00 3.50 3.50 FiO2 30 09/22/17 09/22/17 09/22/17 08:00 09:00 10:00 Pulse 68 60 59 Resp 17 15 10 B/P (MAP) 111/70 (84) 90/58 (69) 114/67 (83) Pulse Ox 96 97 97 O2 Delivery Nasal Cannula Nasal Cannula Nasal Cannula O2 Flow Rate 3.50 3.50 3.50 Capillary Refill : Less Than 3 Seconds General Appearance: WD/WN, mild distress Eyes: Bilateral Eye Normal Inspection HEENT: normal ENT inspection, pharynx normal, No scleral icterus (R), No scleral icterus (L), No photophobia Neck: non-tender, full range of motion, supple, normal inspection, No thyromegaly Respiratory: chest non-tender, respiratory distress (mild), decreased breath sounds (bilateral bases, left worse than right), crackles, wheezing Cardiovascular: normal peripheral pulses, regular rate, rhythm (normal sinus rhythm per telemetry) Gastrointestinal: normal bowel sounds, non tender, soft, no pulsatile mass, No guarding, No rebound Back: normal inspection, no CVA tenderness, no vertebral tenderness Extremities: normal range of motion, non-tender, normal inspection, no calf tenderness, normal capillary refill Neurologic/Psychiatric: 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 Plan for thoracentesis this morning by Dr. Villegas. Will send fluid for cytology and path and repeat CXR in AM Pulmonary Edema 09/22: CXR appears to show some aspect of volume overload; will diurese today x1 with albumin and lasix, repeat xray in AM and encourage pt to wear bipap intermittently Pericardial Effusion 09/22: s/p pericardial window by Dr. Hogue 09/03/17 at [facility] in [place]; effusion demonstrated on CT scan done 09/21, will obtain echo in AM Hx of Afib 09/22: review of records from [facility] on 09/03 show that pt had periods of afib after her pericardial window procedure. Continue home amiodarone and atenolol. Telemetry. HTN 09/22: continue home dose of atenolol Tobaccoism 09/22: cessation encouraged History of DVT 09/22: Lovenox 40 mg SQ daily and ambulation Anxiety 09/22: will resume pt's home dose of Xanax 0.5 mg QID, and add IV Ativan Q4H PRN to be used if needed for patient to wear bipap COPD Depression History of Seizures Chronic Pain Chronic Sinusitis GERD DVT Prophylaxis: Lovenox, Ambulation FEN: Heart Healthy Diet Dispo: Patient will require at least 2-3 nights in the hospital for management of her pneumonia as well as her large effusion, and will be having a thoracentesis this morning by Dr. Villegas. Anticipate that patient may be able to move to the floor tomorrow. NYDIA BELTRAN DO Sep 22, 2017 13:09
[2017-09-22] MEDS: LORazepam INJ 2 MG/ML (ATIVAN) VIAL IVP PRN (13:43)
--- NOTE | 2017-09-22 15:03 | Progress Note ---
Subjective Date Seen by Provider: Sep 22, 2017 Time Seen by Provider: 08:17 Subjective/Events-last exam Patient having some shortness of breath. Still with some left sided chest pain. Patient chest x ray demonstrating more pleural effusion of left compared to yesterdays x ray. Objective Exam Vital Signs Date Time Temp Pulse Resp B/P (MAP) Pulse Ox O2 Delivery O2 Flow Rate FiO2 09/22/17 13:48 56 20 98 4.00 09/22/17 13:00 56 17 103/66 (78) 98 Nasal Cannula 3.50 09/22/17 13:00 55 09/22/17 12:00 53 10 110/78 (89) 98 Nasal Cannula 3.50 09/22/17 11:00 55 25 110/66 (81) 98 Nasal Cannula 3.50 09/22/17 10:00 59 10 114/67 (83) 97 Nasal Cannula 3.50 09/22/17 09:00 60 15 90/58 (69) 97 Nasal Cannula 3.50 09/22/17 08:00 68 17 111/70 (84) 96 Nasal Cannula 3.50 09/22/17 08:00 97 Nasal Cannula 3.50 30 09/22/17 07:00 64 09/22/17 07:00 63 19 100/63 (75) 96 Nasal Cannula 3.50 09/22/17 06:22 97 Nasal Cannula 4.00 09/22/17 06:00 60 15 101/54 (70) 96 Nasal Cannula 3.50 09/22/17 05:00 59 17 105/72 (83) 97 Nasal Cannula 3.50 09/22/17 04:00 96 Nasal Cannula 3.50 09/22/17 04:00 61 22 95/56 (69) 97 Nasal Cannula 3.50 09/22/17 03:00 59 21 104/67 (79) 96 Nasal Cannula 3.50 09/22/17 02:00 64 20 96/56 (69) 96 Nasal Cannula 3.50 09/22/17 01:00 72 19 98/61 (73) 97 Nasal Cannula 3.50 09/22/17 01:00 72 09/22/17 00:00 96 Nasal Cannula 3.50 09/22/17 00:00 96.8 71 22 117/67 (84) 96 Nasal Cannula 3.50 09/21/17 23:00 70 33 111/70 (84) 96 Nasal Cannula 3.50 09/21/17 22:03 95 Nasal Cannula 4.00 09/21/17 22:00 68 19 113/79 (90) 96 Nasal Cannula 3.50 09/21/17 21:00 70 17 110/77 (88) 96 Nasal Cannula 3.50 09/21/17 20:00 97.1 72 28 107/70 (82) 95 Nasal Cannula 3.50 09/21/17 20:00 94 Nasal Cannula 3.50 09/21/17 19:42 94 Nasal Cannula 4.00 09/21/17 19:00 71 09/21/17 19:00 71 15 110/74 (86) 94 Nasal Cannula 3.50 09/21/17 18:00 69 22 111/84 (93) 95 Nasal Cannula 4.00 09/21/17 17:00 63 25 118/77 (91) 94 Nasal Cannula 4.00 09/21/17 16:00 69 22 118/77 (91) 95 Nasal Cannula 4.00 09/21/17 15:28 Nasal Cannula 4.00 09/21/17 15:00 73 24 106/74 (85) 96 Nasal Cannula 4.00 I & O 09/22/17 07:00 Intake Total 690 ml Output Total 400 ml Balance 290 ml Capillary Refill : Less Than 3 Seconds General Appearance: Chronically ill, Mild Distress HEENT: PERRL/EOMI Neck: Non Tender, Supple Respiratory: No Accessory Muscle Use, Decreased Breath Sounds Cardiovascular: Regular Rate, Rhythm Gastrointestinal: normal bowel sounds, non tender, soft, no pulsatile mass, No guarding, No rebound Extremity: Normal Inspection, Normal Range of Motion Neurologic/Psychiatric: Alert, Oriented x3, No Motor/Sensory Deficits, Normal Mood/Affect, dray driver II-XII Norm as Tested Skin: Normal Color, Warm/Dry Results Lab Laboratory Tests 09/22/17 03:10: White Blood Count 12.8H, Red Blood Count 3.77L, Hemoglobin 10.9L, Hematocrit 33L , Mean Corpuscular Volume 88, Mean Corpuscular Hemoglobin 29, Mean Corpuscular Hemoglobin Concent 33, Red Cell Distribution Width 13.6, Platelet Count 421H, Mean Platelet Volume 8.8, Neutrophils (%) (Auto) 84H, Lymphocytes (%) (Auto) 11L , Monocytes (%) (Auto) 6, Eosinophils (%) (Auto) 0, Basophils (%) (Auto) 0, Neutrophils # (Auto) 10.7H, Lymphocytes # (Auto) 1.3, Monocytes # (Auto) 0.7, Eosinophils # (Auto) 0.0, Basophils # (Auto) 0.0, Sodium Level 142, Potassium Level 3.3L, Chloride Level 100, Carbon Dioxide Level 27, Anion Gap 15H, Blood Urea Nitrogen 12, Creatinine 0.82, Estimat Glomerular Filtration Rate > 60, BUN/ Creatinine Ratio 15, Glucose Level 155H, Calcium Level 9.0, Magnesium Level 1.8 , Total Bilirubin 0.3, Aspartate Amino Transf (AST/SGOT) 75H, Alanine Aminotransferase (ALT/SGPT) 51, Alkaline Phosphatase 113, C-Reactive Protein High Sensitivity > 15.00H, Total Protein 6.5, Albumin 2.9L Microbiology 09/21/17 Blood Culture - Preliminary, Resulted No growth 09/21/17 Influenza Types A,B Antigen ([facility]ACHEL) - Final, Complete Assessment/Plan Assessment/Plan Assessment/Plan b/l pneumonia moderate left pleural effusion recent history of pericardial window patient with slightly larger pleural effusion on left compared to yesterdays will plan u/s guided thoracentesis left chest medical management Clinical Quality Measures DVT/VTE Risk/Contraindication: Risk Factor Score Per Nursin RFS Level Per Nursing on Admit: 4+=Very High KARLO WALDRON DO Sep 22, 2017 15:03
[2017-09-22] MEDS: ENOXAPARIN 40 MG/0.4 ML (LOVENOX) SYR SC SCH (15:07)
[2017-09-23] VITALS (18 sets, daily range): BP systolic 92–147; BP diastolic 57–93
[2017-09-23] MEDS: LORazepam INJ 2 MG/ML (ATIVAN) VIAL IVP PRN ×2 (00:29→06:28)
[2017-09-23] MEDS: PIPERACILLIN/TAZOBACTAM 4.5 GM/NS 100 ML IVPB IV SCH ×8 (00:29→23:02)
[2017-09-23 04:47] LABS: BASOPHILS % (AUTO) 0 % (0-10); EOSINOPHILS # (AUTO) 0.1 10^3/uL (0.0-0.3); EOSINOPHILS % (AUTO) 1 % (0-10); HEMATOCRIT 34 % (35-52); HEMOGLOBIN 10.6 G/DL (11.5-16.0); LYMPHOCYTES # (AUTO) 2.8 X 10^3 (1.0-4.0); LYMPHOCYTES % (AUTO) 33 % (12-44); MEAN CORPUSCULAR HEMOGLOBIN 28 PG (25-34); MEAN CORPUSCULAR HGB CONC 31 G/DL (32-36); MEAN CORPUSCULAR VOLUME 90 FL (80-99); MEAN PLATELET VOLUME 8.7 FL (7.4-10.4); MONOCYTES # (AUTO) 0.5 X 10^3 (0.0-1.0); MONOCYTES % (AUTO) 5 % (0-12); NEUTROPHILS # (AUTO) 5.1 X 10^3 (1.8-7.8); NEUTROPHILS % (AUTO) 60 % (42-75); PLATELET COUNT 462 10^3/uL (130-400); RED BLOOD COUNT 3.74 10^6/uL (4.35-5.85); RED CELL DISTRIBUTION WIDTH 14.1 % (10.0-14.5); WHITE BLOOD COUNT 8.5 10^3/uL (4.3-11.0)
[2017-09-23 05:11] LABS: BUN/CREATININE RATIO 18; CALCIUM 8.1 MG/DL (8.5-10.1); CARBON DIOXIDE 26 MMOL/L (21-32); CHLORIDE 103 MMOL/L (98-107); GFR ESTIMATED > 60; GLUCOSE 83 MG/DL (70-105); MAGNESIUM 1.6 MG/DL (1.8-2.4); POTASSIUM 3.6 MMOL/L (3.6-5.0); SODIUM 143 MMOL/L (135-145)
[2017-09-23] MEDS: ALPRAZolam 0.5 MG (XANAX) TAB PO PRN ×3 (05:38→17:41)
[2017-09-23] MEDS: HYDROcodone/APAP 5 MG/325 MG (LORTAB) TAB PO PRN ×3 (05:38→17:41)
[2017-09-23] MEDS: PANTOPRAZOLE 40 MG (PROTONIX) TAB PO SCH (05:39)
[2017-09-23] MEDS: NS IV 1000 ML 1,000 ML IV SCH ×2 (05:40→12:29)
[2017-09-23] MEDS: MAGNESIUM 1 GM/100 ML IVPB 100 ML IV SCH ×2 (05:48→08:23)
[2017-09-23] MEDS ORDERED: POTASSIUM CL 10MEQ/50ML IVPB 50 ML IV SCH ×2 (06:00)
[2017-09-23] MEDS ORDERED: MAGNESIUM 1 GM/100 ML IVPB 100 ML IV SCH ×2 (06:00)
[2017-09-23] MEDS ORDERED: KCL 20 MEQ TAB (K-DUR) PO SCH ×2 (06:00)
[2017-09-23] MEDS: RT-ADVAIR HFA 115/21 MCG PER PUFF IH SCH ×2 (06:39→19:35)
[2017-09-23] MEDS: OMEGA 3 (FISH OIL) 1000 MG CAP PO SCH ×2 (08:22→20:40)
[2017-09-23] MEDS: DOCUSATE SODIUM 100 MG (COLACE) CAP PO SCH ×2 (08:22→20:40)
[2017-09-23] MEDS: AMIODARONE 200 MG (CORDARONE) TAB PO SCH (08:22)
[2017-09-23] MEDS: VITAMIN D3 1,000 UNITS (CHOLECALCIFEROL) TABLET PO SCH ×2 (08:22→20:39)
[2017-09-23] MEDS: LORATADINE (CLARITIN) 10 MG TAB PO SCH (08:22)
[2017-09-23] MEDS: FLUTICASONE NASAL SPRAY (FLONASE) 16 GM BTL NS SCH ×2 (08:24→20:40)
[2017-09-23] MEDS: ATENOLOL 50 MG (TENORMIN) TAB PO SCH ×2 (08:25→20:39)
--- NOTE | 2017-09-23 08:32 | Progress Note (SOAP) ---
Subjective Subjective/Events-last exam This morning the patient is on room air. She reports that she is breathing okay , but wants to know if she can have oxygen to take home because Dr. Hogue told her she should only have sats that are 95% or higher because she had recent pericardial window (09/03). The patient used intermittent BiPap overnight and was able to tolerate with IV ativan. She had a thoracentesis by Dr. Villegas yesterday morning for ~1L straw colored fluid. She had an echo that is pending a read, as her admission CT did show a pericardial effusion. Patient very upset that her pericardial effusion appears to have returned, as she just had her pericardial window procedure. Patient denies any similar symptoms to when she had her previous pericardial effusion. Patient reports uncomfortable on her right side, because she slept on that side because her thoracentesis was on her left side. Would like something for the discomfort. No acute concerns from nursing staff, no acute events overnight. Review of Systems Date Seen by Provider: Sep 23, 2017 Time Seen by Provider: 11:20 General: No Chills, No Night Sweats HEENT: No Head Aches, No Dysphasia, No Sore Throat Pulmonary: No Dyspnea, Cough, No Pleuritic Chest Pain Cardiovascular: No: Chest Pain, Palpitations, Orthopnea, Edema Gastrointestinal: No: Nausea, Vomiting, Abdominal Pain, Diarrhea, Constipation Genitourinary: No Dysuria, No Incontinence Musculoskeletal: other (right sided pain), back pain (right sided) Neurological: No: Weakness, Numbness, Change in speech, Confusion, Seizures Objective Exam Last Set of Vital Signs Vital Signs Date Time Temp Pulse Resp B/P (MAP) Pulse Ox O2 Delivery O2 Flow Rate FiO2 09/23/17 06:39 97 Nasal Cannula 3.00 09/23/17 06:00 60 18 120/90 (100) 09/23/17 04:00 97.7 09/22/17 16:00 30 Capillary Refill : Less Than 3 Seconds I&O Intake and Output 09/23/17 00:00 Intake Total 1990 ml Output Total 3400 ml Balance -1410 ml Intake Oral 1990 ml Output Urine Total 2200 ml Drainage Total 1200 ml # Voids 3 General: Alert, Oriented X3, Cooperative, No Acute Distress, Other (extremely anxious) HEENT: Atraumatic, PERRLA, EOMI, Mucous Memb Moist/[place] Neck: Supple, No JVD, No Thyromegaly Lungs: Other (decreased air exchange in bilateral bases. significantly improved left sided lung sounds. ) Heart: Regular Rate (sinus rhythm on telemetry), Normal S1, Normal S2, No Murmurs Abdomen: Normal Bowel Sounds, Soft, No Tenderness, No Masses Extremities: No Clubbing, No Cyanosis, No Edema, No Tenderness/Swelling Skin: No Rashes, No Significant Lesion Neuro: Normal Speech, Normal Tone, Cranial Nerves 3-12 NL Psych/Mental Status: Mental Status NL, Other (extremely anxious, somewhat tearful) Results/Procedures Lab Laboratory Tests 09/23/17 03:30: White Blood Count 8.5, Red Blood Count 3.74L, Hemoglobin 10.6L, Hematocrit 34L, Mean Corpuscular Volume 90, Mean Corpuscular Hemoglobin 28, Mean Corpuscular Hemoglobin Concent 31L, Red Cell Distribution Width 14.1, Platelet Count 462H, Mean Platelet Volume 8.7, Neutrophils (%) (Auto) 60, Lymphocytes (%) (Auto) 33, Monocytes (%) (Auto) 5, Eosinophils (%) (Auto) 1, Basophils (%) (Auto) 0, Neutrophils # (Auto) 5.1, Lymphocytes # (Auto) 2.8, Monocytes # (Auto) 0.5, Eosinophils # (Auto) 0.1, Basophils # (Auto) 0.0, Sodium Level 143, Potassium Level 3.6, Chloride Level 103, Carbon Dioxide Level 26, Anion Gap 14, Blood Urea Nitrogen 14, Creatinine 0.80, Estimat Glomerular Filtration Rate > 60, BUN/ Creatinine Ratio 18, Glucose Level 83, Calcium Level 8.1L, Magnesium Level 1.6L , C-Reactive Protein High Sensitivity 10.93H Microbiology 09/21/17 Blood Culture - Preliminary, Resulted No growth 09/21/17 Influenza Types A,B Antigen (RACHEL) - Final, Complete Radiology CXR 09/21/17 The appearance of the chest has worsened since the prior exam as the left lung base is now opacified by atelectasis/infiltrate and fluid. A followup study would be recommended for continued evaluation. CT Chest/Abd 09/21/17 1. Bilateral effusions left greater than right with bibasal infiltrates left also greater than right. 2. Emphysematous disease. 3. Shotty lymph nodes in the mediastinum most likely reactive. This could be followed to assure complete resolution. Other incidental findings as noted above. 4. Pericardial effusion. CXR 09/22/17 Interval increase in left mid and lower lung zone airspace consolidation with at least moderate sized left pleural effusion. Assessment/Plan Assessment/Plan Admission Dx Bilateral Pneumonia Left Pleural Effusion Pericardial Effusion COPD HTN Tobaccoism History of DVT Anxiety Depression History of Seizures Chronic Pain Chronic Sinusitis GERD Plan Bilateral Pneumonia 09/22: Zosyn Day 2 for HCAP 09/23: Zosyn Day 3 for HCAP. CRP trending down, 15 --> 10.43. WBC trending down 18,3 --> 12.8 --> 8.5. Blood cultures show no growth to date. Left Pleural Effusion 09/22: CXR demonstrates increased size of effusion today. Plan for thoracentesis this morning by Dr. Villegas. Will send fluid for cytology and path and repeat CXR in AM 09/23: s/p thoracentesis by Dr. Villegas 09/22 for 1.2 L straw colored fluid. Cytology pending. CXR shows good improvement with now mild bilateral pleural effusions. Pulmonary Edema 09/22: CXR appears to show some aspect of volume overload; will diurese today x1 with albumin and lasix, repeat xray in AM and encourage pt to wear bipap intermittently 09/23: Pt has been able to tolerate intermittent bipap with the use of IV ativan. CXR this AM appears improved. Pericardial Effusion 09/22: s/p pericardial window by Dr. Hogue 09/03/17 at [facility] in [place]; effusion demonstrated on CT scan done 09/21, will obtain echo in AM 09/23: cardiomegaly on CXR, suspect due at least in part to pericardial effusion. Echo read is pending. Will consult cardiology due to recurrent pericardial effusion. Hx of Afib 09/22: review of records from [facility] on 09/03 show that pt had periods of afib after her pericardial window procedure. Continue home amiodarone and atenolol. Telemetry. 09/23: remains in sinus rhythm per telemetry. mild bradycardia. HTN 09/22: continue home dose of atenolol 09/23: well controlled on home medication Tobaccoism 12/31: cessation encouraged History of DVT 09/22: Lovenox 40 mg SQ daily and ambulation 09/23: continue lovenox and ambulation Anxiety 09/22: will resume pt's home dose of Xanax 0.5 mg QID, and add IV Ativan Q4H PRN to be used if needed for patient to wear bipap 09/23: pt continues to be anxious, but has been able to tolerate bipap with IV ativan. review of clinic chart shows Xanax dose was recently decreased to 0.5 mg TID; will discharge on updated dose of medication per clinic records. COPD Depression History of Seizures Chronic Pain Chronic Sinusitis GERD DVT Prophylaxis: Lovenox, Ambulation FEN: Heart Healthy Diet Dispo: Patient able to transfer to floor today. Potentially ready for discharge in 24-48 hours, pending echo results. Clinical Quality Measures DVT/VTE Risk/Contraindication: Risk Factor Score Per Nursin RFS Level Per Nursing on Admit: 4+=Very High JOAN BELTRAN DO Sep 23, 2017 08:32
--- NOTE | 2017-09-23 08:58 | OPERATIVE REPORT ---
DATE OF SERVICE: 09/22/2017 PREPROCEDURE DIAGNOSIS: Left pleural effusion. POSTOPERATIVE DIAGNOSIS: Left pleural effusion. PROCEDURE: Ultrasound-guided left thoracentesis. SURGEON: Karlo Villegas DO ANESTHESIA: Local anesthetic, 1% lidocaine. ESTIMATED BLOOD LOSS: None. COMPLICATIONS: None. INDICATIONS: The patient is a 52-year-old female who presented with bilateral pneumonias and left pleural effusion. She has been having some difficulty in breathing. She understands risks and benefits of procedure and wished to proceed with procedure. Consent was signed in chart. PROCEDURE: The patient was placed in a sitting position slightly slumped over using a table. Ultrasound was used to scan the area demonstrating a moderate pleural effusion of the left chest. A window was located for thoracentesis. The area was then prepped and draped in a sterile fashion. Local anesthetic of 1% lidocaine was used to anesthetize the area. The safety thoracentesis kit was then placed through a stab incision, which was created with an 11 blade scalpel. Once the pleural fluid was reached, the catheter was then advanced over the safety thoracentesis needle and the needle was removed. Fluid was drawn without any difficulty from the catheter. It was then hooked to vacuum bottles. A total of 1000 mL of straw colored fluid was removed. Once done draining, the catheter was removed and a sterile bandage was applied. Chest x-ray is pending. The patient tolerated procedure well without complications. Job ID: [id number] DocumentID: [id number] Dictated Date: 09/22/2017 14:56:55 Piecer Date: 09/22/2017 18:57:00 Dictated By: KARLO VILLEGAS DO
--- NOTE | 2017-09-23 09:30 | Diagnostic Imaging Report ---
INDICATION: Bilateral pneumonia with left effusion status post thoracentesis. FINDINGS: There are what are likely chronic interstitial changes present within the lungs. Patient's left-sided pleural collection does appear improved. This is markedly improved from the prethoracentesis examination from September 22. There is no evidence of pneumothorax. Heart size appears unchanged. IMPRESSION: 1. Further interval improvement in the patient's left-sided pleural collection. 2. Stable enlargement of the cardiac silhouette. 3. Chronic interstitial changes within the lungs compatible with underlying emphysema. Dictated by: Dictated on workstation # [id number]
--- NOTE | 2017-09-23 10:04 | Progress Note ---
Subjective Date Seen by Provider: Sep 23, 2017 Time Seen by Provider: 06:44 Subjective/Events-last exam patient states breathing a little better today. no significant pain. Denies any n/v fever sweats chills shortness of breath or chest pain at this time. Patient still concerned about heart and she states she's anxious. Chest x ray demonstrating improvement left pleural effusion still with enlargement of cardiac silhouette. Objective Exam Vital Signs Date Time Temp Pulse Resp B/P (MAP) Pulse Ox O2 Delivery O2 Flow Rate FiO2 09/23/17 08:34 97.7 66 16 112/72 (85) 99 Nasal Cannula 4.00 09/23/17 07:00 55 15 117/69 (85) 98 Nasal Cannula 4.00 09/23/17 07:00 55 09/23/17 06:39 97 Nasal Cannula 3.00 09/23/17 06:00 60 18 120/90 (100) 98 NIV Bilevel 4.00 09/23/17 05:00 60 12 115/58 (77) 98 NIV Bilevel 4.00 09/23/17 04:13 53 16 97 4.00 09/23/17 04:00 96 NIV Bilevel 4.00 09/23/17 04:00 54 20 96/62 (73) 99 NIV Bilevel 4.00 09/23/17 04:00 97.7 09/23/17 03:00 52 19 119/58 (78) 98 NIV Bilevel 4.00 09/23/17 02:37 56 18 97 4.00 09/23/17 02:00 55 20 92/57 (69) 97 NIV Bilevel 4.00 09/23/17 01:00 54 09/23/17 01:00 54 18 104/57 (73) 97 NIV Bilevel 4.00 09/23/17 00:31 48 17 96 4.00 09/23/17 00:00 48 16 103/65 (78) 96 NIV Bilevel 4.00 09/23/17 00:00 97 NIV Bilevel 4.00 09/22/17 23:00 53 10 138/87 (104) 93 NIV Bilevel 4.00 09/22/17 22:00 52 19 118/76 (90) 97 NIV Bilevel 4.00 09/22/17 21:40 55 20 98 4.00 09/22/17 21:00 60 37 116/73 (87) 94 NIV Bilevel 4.00 09/22/17 20:20 96 Nasal Cannula 4.00 09/22/17 20:00 58 13 118/81 (93) 98 NIV Bilevel 4.00 09/22/17 20:00 98 Nasal Cannula 4.00 09/22/17 19:42 98.7 Nasal Cannula 4.00 09/22/17 19:00 56 09/22/17 19:00 56 11 111/62 (78) 97 NIV Bilevel 4.00 09/22/17 18:00 56 12 96/70 (79) 97 NIV Bilevel 4.00 09/22/17 17:00 60 18 112/79 (90) 96 NIV Bilevel 4.00 09/22/17 16:29 57 16 97 4.00 09/22/17 16:00 58 24 96/66 (76) 97 NIV Bilevel 4.00 09/22/17 16:00 97 Nasal Cannula 4.00 30 09/22/17 15:00 53 19 110/67 (81) 95 NIV Bilevel 4.00 09/22/17 14:00 55 15 95/63 (74) 97 NIV Bilevel 4.00 09/22/17 13:48 56 20 98 4.00 09/22/17 13:00 56 17 103/66 (78) 98 Nasal Cannula 3.50 09/22/17 13:00 55 09/22/17 12:00 97 Nasal Cannula 4.00 30 09/22/17 12:00 53 10 110/78 (89) 98 Nasal Cannula 3.50 09/22/17 11:00 55 25 110/66 (81) 98 Nasal Cannula 3.50 09/22/17 10:00 59 10 114/67 (83) 97 Nasal Cannula 3.50 I & O 09/23/17 07:00 Intake Total 2200 ml Output Total 3000 ml Balance -800 ml Capillary Refill : Less Than 3 Seconds General Appearance: No Apparent Distress, Chronically ill HEENT: PERRL/EOMI Neck: Non Tender, Supple Respiratory: No Accessory Muscle Use, No Respiratory Distress, Decreased Breath Sounds Cardiovascular: Regular Rate, Rhythm Gastrointestinal: normal bowel sounds, non tender, soft, no pulsatile mass, No guarding, No rebound Extremity: Normal Inspection, Normal Range of Motion Neurologic/Psychiatric: Alert, Oriented x3, No Motor/Sensory Deficits, Normal Mood/Affect, turn out II-XII Norm as Tested Skin: Normal Color, Warm/Dry Results Lab Laboratory Tests 09/23/17 03:30: White Blood Count 8.5, Red Blood Count 3.74L, Hemoglobin 10.6L, Hematocrit 34L, Mean Corpuscular Volume 90, Mean Corpuscular Hemoglobin 28, Mean Corpuscular Hemoglobin Concent 31L, Red Cell Distribution Width 14.1, Platelet Count 462H, Mean Platelet Volume 8.7, Neutrophils (%) (Auto) 60, Lymphocytes (%) (Auto) 33, Monocytes (%) (Auto) 5, Eosinophils (%) (Auto) 1, Basophils (%) (Auto) 0, Neutrophils # (Auto) 5.1, Lymphocytes # (Auto) 2.8, Monocytes # (Auto) 0.5, Eosinophils # (Auto) 0.1, Basophils # (Auto) 0.0, Sodium Level 143, Potassium Level 3.6, Chloride Level 103, Carbon Dioxide Level 26, Anion Gap 14, Blood Urea Nitrogen 14, Creatinine 0.80, Estimat Glomerular Filtration Rate > 60, BUN/ Creatinine Ratio 18, Glucose Level 83, Calcium Level 8.1L, Magnesium Level 1.6L , C-Reactive Protein High Sensitivity 10.93H Microbiology 09/21/17 Blood Culture - Preliminary, Resulted No growth 09/21/17 Influenza Types A,B Antigen (RACHEL) - Final, Complete Assessment/Plan Assessment/Plan Assessment/Plan b/l pneumonia moderate left pleural effusion s/p thoracentesis recent history of pericardial window patient with slightly larger pleural effusion on left compared to yesterdays doing better after left thoracentesis, chest x ray showing improvement of pleural effusion, cardiac enlargement await Echo results Clinical Quality Measures DVT/VTE Risk/Contraindication: Risk Factor Score Per Nursin RFS Level Per Nursing on Admit: 4+=Very High KARLO WALDRON DO Sep 23, 2017 10:04
--- NOTE | 2017-09-23 11:27 | Physical Therapy Evaluation ---
PT Evaluation-General Medical Diagnosis Admission Date Sep 21, 2017 at 10:35 Medical Diagnosis: pneumonia Onset Date: Sep 22, 2017 Therapy Diagnosis Therapy Diagnosis: debility Height/Weight Height (Feet): 5 Height (Inches): 8.00 Weight (Pounds): 189 Weight (Ounces): 4.0 Precautions Precautions/Isolations: Fall Prevention, Standard Precautions Weight Bear Status Right Lower Extremity: Right Full Weight Bearing Left Lower Extremity: Left Full Weight Bearing Referral Physician: Nydia Osborn DO Reason for Referral: Evaluation/Treatment Medical History Pertinent Medical History: COPD, GERD, HTN, Smoking Additional Medical History previous femoral DVT, anxiety, depression, epilepsy, chronic pain, chronic sinusitis, B12 deficiency, pericardial effusion s/p pericardial window 08/2017 Current History Pt presented to EMS secondary to SOB, fever. Hx of pericardial effusion requiring pericardial window and 10 days ago started antibiotics secondary concern for possible pneumonia. Reviewed History: Yes Social History Home: Multilevel Current Living Status: Significant Other Entry Into Home: Stairs With Railing PT Steps Into Home: 12 Prior/Core FIM Prior Level of Function Functional [place] Measure 0=Not Assessed/NA 4=Minimal Assistance 1=Total Assistance 5=Supervision or Setup 2=Maximal Assistance 6=Modified [place] 3=Moderate Assistance 7=Complete [place] Bed Mobility: 7 Transfers (B,C,W/C) (FIM): 7 Gait: 6 Pt reports occasional use of SPC > FWW, "and when I'm feeling good I don't use anything". PT Evaluation-Current Subjective Pt sitting up in bed, agreeable. Reports 4/10 pain in (R) shoulder "but I slept on it last night". Pt reports "tired" after evaluation. Pt reports up ad ilene to [facility] [place] Pt/Family Goals Home Objective Patient Orientation: Person, Place, Time, Situation Problem Solving: Good Attachments: Oxygen, IV multiple monitor lines ROM/Strength ROM Upper Extremities WFL for mobility ROM Lower Extremities WFL for mobility Strength Upper Extremities WFL for mobility Strength Lower Extremities Grossly 3+/5 Integumentary/Posture Integumentary See nurses' notes Neuromuscular (Tone, Coordination, Reflexes) grossly unremarkable Transfers Functional [place] Measure 0=Not Assessed/NA 4=Minimal Assistance 1=Total Assistance 5=Supervision or Setup 2=Maximal Assistance 6=Modified [place] 3=Moderate Assistance 7=Complete [place] Transfers (B, C, W/C) (FIM): 6 Supine to/from Sit: 6 Sit to/from Stand: 6 Gait Mode of Locomotion: Walk Anticipated Mode of Locomotion: Walk Gait (FIM): 2 Distance (FIM): 0=017-28 ft Distance: 100 Gait Level of Assist: 5 Gait Persons Needed: 1 Gait Assistive Device: FWW Comments/Gait Description Pt ambulated with flexed posture, slow gait. Leaning heavily on FWW but no LOB. Pt ambulated on 3L O2 with sats > 93% throughout. Balance Sitting Static: Normal Sitting Dynamic: Normal Standing Static: Good Standing Dynamic: Fair Treatment Eval. Pt returned to bed, O2 in situ, needs met. Assessment/Needs Pt is a 52 y.o. female with pneumonia. Pt's problem list includes: decreased functional activity tolerance, decreased gait, decreased balance, and overall decreased (I) with functional activity. Pt would benefit from skilled PT to PLOF. Rehab Potential: Good PT Short Term Goals Short Term Goals Time Frame: Sep 30, 2017 Gait (FIM): 6 Distance (FIM): 3=150 ft Gait Level of Assist: 6 Gait Assistive Device: FWW PT [facility] Goals Sports Doctor Goals PT [facility] Goals Time Frame: Oct 07, 2017 Transfers (B,C,W/C) (FIM): 7 Gait (FIM): 6 Gait distance (FIM): 3=150 ft Distance: 150 Gait Level of Assist: 6 Stairs (FIM): 5 # of Steps: 12 Stairs Level Of Assist: 5 Pt goals established to allow safe return home with family. PT Plan Problem List Problem List: Activity Tolerance, Functional Strength, Balance, Gait, Transfer Treatment/Plan Treatment Plan: Continue Plan of Care Treatment Plan: Education, Functional Activity Elle, Functional Strength, Gait , Safety, Therapeutic Exercise, Transfers Treatment Duration: Oct 07, 2017 Frequency: 6 times per week Estimated Hrs Per Day: .25 hour per day Patient and/or Family Agrees t: Yes Safety Risks/Education Teaching Recipient: Patient Teaching Methods: Discussion Response to Teaching: Verbalize Understanding PT POC Discharge Recommendations Therapy D/C Recommendations: Home w/ Family Support Barriers to Progress decreased functional activity tolerance Time/GCodes Time In: 0956 Time Out: 1015 Total Billed Treatment Time: 19 Total Billed Treatment 1, EVLOWC x 19' G Codes Necessary: No ANURAG WILLS DPT Sep 23, 2017 11:27
[2017-09-23] MEDS ORDERED: ACETAMINOPHEN 500 MG TAB (TYLENOL) PO PRN (11:45)
--- NOTE | 2017-09-23 14:27 | Consultation-Cardiology ---
HPI-Cardiology Cardiology Consultation: Date of Consultation 09/23/17 Time Seen by Provider: 13:10 Date of Admission Attending Physician Nydia Osborn DO Admitting Physician Jose Sams MD Consulting Physician SUE NEGRON MD, MA, FACP, FACC, FSCAI, CCDS HPI: Chief Complaint: Shortness of breath 52 yo woman with increasing shortness of breath and intermittent fevers, admitted 09/21/17 to the [facility]. Has been treated with antibiotics for pneumonia with antibiotics. Has had L thoracentesis for pleural eff. Has been reported to have some pericard eff on CT chest of 09/21/17. We have been asked to see her in card consult She notes improvement of shortness of breath since admission. Denies palp or syncope Notes some right-sided chest discomfort: soreness, intermittent, currently continuous for more than half a day, worse with motion at R shoulder or the torso, not associated with other symptoms, mild, improving Review of Systems-Cardiology Review of Systems Constitutional: malaise, tiredness Eyes: No vision change Ears/Nose/Throat: No ear discharge, No recent hearing loss Respiratory: As described under HPI Cardiovascular: As described under HPI Gastrointestinal: No diarrhea, No nausea, No vomiting Genitourinary: No dysuria, No hematuria : No Musculoskeletal: back pain (chronic), joint pain (chronic) Skin: No rash, No ulcerations Psychiatric/Neurological: No seizure, No focal weakness, No syncope Hematologic: No bleeding abnormalities All Other Systems Reviewed Negative Unless Noted: Yes [id number] Patient Social History Marrital Status: single Living Status: lives at home Employed/Student: unemployed Alcohol Use: Denies Use Recreational Drug Use: No Smoking Status: Current Everyday Smoker Type Used: Cigarettes 2nd Hand Smoke Exposure: Yes Recent Foreign Travel: No Recent Infectious Disease Expo: No Hospitalization with Isolation: Denies Physical Abuse Screen: No Sexual Abuse: No Immunizations Up To Date Date of Pneumonia Vaccine: Jun 07, 2016 Date of Influenza Vaccine: Jun 07, 2016 Past Medical History PMH As described under Assessment. Family Medical History Family History: FH: cirrhosis 19 MOTHER FH: liver cancer 19 MOTHER FHx: lung cancer 19 FATHER Hypertension 19 FATHER 19 MOTHER Allergies and Home Medications Allergies Coded Allergies: buspirone HCl (Verified Allergy, Unknown, 08/14/15) etodolac (Verified Allergy, Unknown, 08/14/15) NSAIDS (Non-Steroidal Anti-Inflamma (Verified Adverse Reaction, Unknown, 08/14/15) Neuromuscular Blockers, Steroidal (Verified Adverse Reaction, Unknown, ) gabapentin (Verified Adverse Reaction, Unknown, 08/14/15) Home Medications Albuterol Sulfate 1 Puff Puff, 2 PUFF INH QID PRN for SHORTNESS OF BREATH, ( Reported) Albuterol Sulfate 2.5 Mg/3 Ml Vial.neb, 2.5 MG NEB Q4H PRN for SHORTNESS OF BREATH, (Reported) Alprazolam 0.5 Mg Tablet, 0.5 MG PO QID PRN for ANXIETY, (Reported) Amiodarone HCl 200 Mg Tablet, (Reported) Atenolol 100 Mg Tablet, 50 MG PO BID, (Reported) TAKES 1/2 (100MG) TABLET Cetirizine HCl 10 Mg Tablet, 10 MG PO DAILY, (Reported) Cholecalciferol (Vitamin D3) 1,000 Unit Tablet, 1,000 UNIT PO BID, (Reported) Cyanocobalamin 1,000 Mcg/Ml Inj, 1,000 MCG IJ MONTHLY, (Reported) Dicyclomine HCl 20 Mg Tablet, 20 MG PO QID PRN for STOMACH UPSET, (Reported) Docusate Sodium 100 Mg Capsule, 100 MG PO BID, #60 Prescribed by: NENA WATERS on 09/09/17 1222 Fluticasone Propionate 16 Gm [place].susp, 1 SPRAY NS BID, (Reported) Fluticasone/Salmeterol 1 Each Blst.w.dev, 1 PUFF IH BID, (Reported) Furosemide 20 Mg Tablet, (Reported) Guaifenesin/Dextromethorphan 5 Ml Syrup, 10 ML PO Q6H PRN for COUGH, (Reported) Hydrocodone Bit/Acetaminophen 1 Each Tablet, 1 EACH PO Q4H PRN for PAIN- MODERATE TO SEVERE, #10 Prescribed by: NENA WATERS on 09/09/17 1217 Ibuprofen 600 Mg Tablet, 600 MG PO Q6H PRN for PAIN-MODERATE, #100 Ref 0 Prescribed by: HEBERT CAMPBELL on 08/29/17 1300 Ketorolac Tromethamine 10 Mg Tablet, 10 MG PO Q6H PRN for CHEST PAIN, (Reported) Kiefer 3 Polyunsat Fatty Acids 1,000 Mg Cap, 2,000 MG PO BID, (Reported) Omeprazole 40 Mg Capsule.dr, 40 MG PO DAILY, (Reported) Potassium Chloride 10 Meq Tablet.er, (Reported) Ranitidine HCl 150 Mg Tablet, 150 MG PO BID, (Reported) Physical Exam-Cardiology Physical Exam Vital Signs/I&O Vital Sign - Last 12Hours 09/23/17 09/23/17 09/23/17 09/23/17 02:37 03:00 04:00 04:00 Temp 97.7 Pulse 56 52 54 Resp 18 19 20 B/P (MAP) 119/58 (78) 96/62 (73) Pulse Ox 97 98 99 O2 Delivery NIV Bilevel NIV Bilevel O2 Flow Rate 4.00 4.00 4.00 09/23/17 09/23/17 09/23/17 09/23/17 04:00 04:13 05:00 06:00 Pulse 53 60 60 Resp 16 12 18 B/P (MAP) 115/58 (77) 120/90 (100) Pulse Ox 96 97 98 98 O2 Delivery NIV Bilevel NIV Bilevel NIV Bilevel O2 Flow Rate 4.00 4.00 4.00 4.00 09/23/17 09/23/17 09/23/17 09/23/17 06:39 07:00 07:00 08:00 Pulse 55 55 Resp 15 B/P (MAP) 117/69 (85) Pulse Ox 97 98 O2 Delivery Nasal Cannula Nasal Cannula Nasal Cannula O2 Flow Rate 3.00 4.00 4.00 09/23/17 09/23/17 09/23/17 09/23/17 08:34 09:00 10:00 11:00 Temp 97.7 Pulse 66 60 67 61 Resp 16 17 16 20 B/P (MAP) 112/72 (85) 119/72 (88) 125/82 (96) 116/80 (92) Pulse Ox 99 96 93 93 O2 Delivery Nasal Cannula Nasal Cannula Nasal Cannula Nasal Cannula O2 Flow Rate 4.00 4.00 4.00 4.00 09/23/17 09/23/17 09/23/17 09/23/17 11:13 11:15 11:18 13:00 Temp 96.9 Pulse 62 Pulse Ox 97 O2 Delivery Nasal Cannula Room Air O2 Flow Rate 4.00 Intake and Output 09/23/17 00:00 Intake Total 1550 ml Output Total 1800 ml Balance -250 ml Capillary Refill : Less Than 3 Seconds Constitutional: AAO x 3, well-developed, well-nourished HEENT: EOMI, hearing is well preserved, No xanthelasmas are seen Neck: carotid pulses are 2 + bilaterally, with good upstrokes Respiratory: No accessory muscle use, other (Fair air entry, but diminished at the bases; prolonged exp; exp wheezes) Cardiovascular: regular rate-rhythm, S1 and S2, systolic murmur (faint CHERYL at card base) Gastrointestinal: No tender, soft, No guarding, No rebound, audible bowel sounds Extremities: No clubbing, No cyanosis, No significant edema Neurologic/Psychiatric: oriented x 3, grossly intact, power is 5/5 both on sides Skin: No rash on exposed areas, No ulcerations on exposed areas Data Review Labs Laboratory Tests 09/23/17 03:30: White Blood Count 8.5, Red Blood Count 3.74L, Hemoglobin 10.6L, Hematocrit 34L, Mean Corpuscular Volume 90, Mean Corpuscular Hemoglobin 28, Mean Corpuscular Hemoglobin Concent 31L, Red Cell Distribution Width 14.1, Platelet Count 462H, Mean Platelet Volume 8.7, Neutrophils (%) (Auto) 60, Lymphocytes (%) (Auto) 33, Monocytes (%) (Auto) 5, Eosinophils (%) (Auto) 1, Basophils (%) (Auto) 0, Neutrophils # (Auto) 5.1, Lymphocytes # (Auto) 2.8, Monocytes # (Auto) 0.5, Eosinophils # (Auto) 0.1, Basophils # (Auto) 0.0, Sodium Level 143, Potassium Level 3.6, Chloride Level 103, Carbon Dioxide Level 26, Anion Gap 14, Blood Urea Nitrogen 14, Creatinine 0.80, Estimat Glomerular Filtration Rate > 60, BUN/ Creatinine Ratio 18, Glucose Level 83, Calcium Level 8.1L, Magnesium Level 1.6L , C-Reactive Protein High Sensitivity 10.93H Microbiology 09/21/17 Blood Culture - Preliminary, Resulted No growth 09/22/17 Gram Stain - Final, Resulted 09/22/17 Body Fluid Culture - Preliminary, Resulted No growth 09/21/17 Influenza Types A,B Antigen (RACHEL) - Final, Complete Laboratory Tests 09/22/17 03:10 09/23/17 03:30 A/P-Cardiology Assessment/Admission Diagnosis Bilateral pneumonia with bilat pleural eff, L>R, s/p L thoracentesis on 09/21/17 Pericard eff, first diagnosed in early Aug 2017, treated with drainage and pericardial window placement (by history) at [facility]. Echo of 09/22 shows small, fibrinous pericard eff that does not appear to be of hemodynamic significance Echo of 08/25/17: LVEF 65-70%; grade I diastolic dysfunction; small, fibrinous pericard eff w/o hemodynamic significance; PASP within normal limits PAF during pericard window procedure at [place] on 09/03 (according to records) that was treated with amiodarone and atenolol that resulted in no recurrence Chronic, nonspecific chest discomfort, probably musculoskeletal, Dr Campbell following Hypertension Degenerative joint disease, back pain and hip pain, chronic Chronic tobacco use, advised to quit Discussion and Recomendations * She suffer from multiple comorbidities that are outlined above * I reviewed her records at this [facility] * I spoke with her and answered CV-related questions * I advised immediate and complete smoking cessation * Follow labs Clinical Quality Measures DVT/VTE Risk/Contraindication: Risk Factor Score Per Nursin RFS Level Per Nursing on Admit: 4+=Very High SUE NEGRON MD FACP FAC CCDS Sep 23, 2017 14:27
[2017-09-23] MEDS: ENOXAPARIN 40 MG/0.4 ML (LOVENOX) SYR SC SCH (15:51)
[2017-09-23] MEDS: KETOROLAC 30 MG/ML VIAL IVP PRN (20:39)
[2017-09-24] VITALS: BP 121/69
[2017-09-24 04:00] VITALS: BP 120/67
[2017-09-24] MEDS: PANTOPRAZOLE 40 MG (PROTONIX) TAB PO SCH (05:55)
[2017-09-24] MEDS: ALPRAZolam 0.5 MG (XANAX) TAB PO PRN ×2 (05:56→11:15)
[2017-09-24] MEDS: RT-ADVAIR HFA 115/21 MCG PER PUFF IH SCH (06:35)
[2017-09-24 07:56] VITALS: BP 133/70
[2017-09-24] MEDS: AMIODARONE 200 MG (CORDARONE) TAB PO SCH (08:20)
[2017-09-24] MEDS: PIPERACILLIN/TAZOBACTAM 4.5 GM/NS 100 ML IVPB IV SCH ×2 (08:21)
[2017-09-24] MEDS: NS IV 1000 ML 1,000 ML IV SCH (08:24)
--- NOTE | 2017-09-24 09:01 | Physical Therapy Daily Note ---
PT Daily Note-Current Subjective Patient reports she is up with family in hallway ambulating. Agrees to PT. Patient reports she hopes to return to home on this date. Pain Numeric Pain Scale: 3 Location: Right, Left Location Body Site: Side Pain Description: Sharp Comment: pleural pain Mental Status Patient Orientation: Normal For Age Attachments: IV Transfers Functional [place] Measure 0=Not Assessed/NA 4=Minimal Assistance 1=Total Assistance 5=Supervision or Setup 2=Maximal Assistance 6=Modified [place] 3=Moderate Assistance 7=Complete IndependenceIRFPAI Quality Coding Scale 6 Independent with activity with or without an assistive device 5 Patient requires set up or clean up by helper. Patient completes activity by themselves 4 Supervision or touching assist (CGA). Edgard provide cues , steadying assist 3 The helper provides less than half the effort to complete the activity 2 The helper provides more than half the effort to complete the activity 1 Dependent. The helper does all the effort to complete an activity 7 Patient refused to complete or attempt activity 9 The patient did not perform the activity before the current illness or injury 88 Not attempted due to Medical conditions or safety concerns Transfers (B, C, W/C) (FIM): 7 Scootin Rollin Supine to/from Sit: 7 Sit to/from Stand: 7 Weight Bearing Right Lower Extremity: Right Full Weight Bearing Left Lower Extremity: Left Full Weight Bearing Gait Training Gait (FIM): 6 Distance (FIM): 3=150 ft Distance: 400' Gait Level of Assist: 6 Gait Assistive Device: FWW safe and functional with FWW Assessment Patient is currently at OF with all gross motor skills and is up with family PRN in hallway. PT to dismiss patient from services at this time. PT Short Term Goals Short Term Goals Time Frame: Sep 30, 2017 Gait (FIM): 6 Distance (FIM): 3=150 ft Gait Level of Assist: 6 Gait Assistive Device: FWW PT Shelter Goals Shelter Goals PT Insurance Salesperson Goals Time Frame: Oct 07, 2017 Transfers (B,C,W/C) (FIM): 7 Gait (FIM): 6 Gait distance (FIM): 3=150 ft Distance: 150 Gait Level of Assist: 6 Stairs (FIM): 5 # of Steps: 12 Stairs Level Of Assist: 5 PT Plan Treatment/Plan Treatment Plan: Discontinue PT, goals met Treatment Plan: Education, Functional Activity Elle, Functional Strength, Gait , Safety, Therapeutic Exercise, Transfers Treatment Duration: Oct 07, 2017 Frequency: 6 times per week Estimated Hrs Per Day: .25 hour per day Patient and/or Family Agrees t: Yes Discharge Recommendations Therapy D/C Recommendations: Home w/ Family Support Time/GCodes Time In: 835 Time Out: 844 Total Billed Treatment Time: 9 Total Billed Treatment 1 visit FA 9 min G Codes Necessary: No ODESSA FISCHER PT Sep 24, 2017 09:00
[2017-09-24] MEDS: LORATADINE (CLARITIN) 10 MG TAB PO SCH (09:24)
[2017-09-24] MEDS: ATENOLOL 50 MG (TENORMIN) TAB PO SCH (09:24)
[2017-09-24] MEDS: VITAMIN D3 1,000 UNITS (CHOLECALCIFEROL) TABLET PO SCH (09:24)
[2017-09-24] MEDS: OMEGA 3 (FISH OIL) 1000 MG CAP PO SCH (09:24)
[2017-09-24] MEDS: FLUTICASONE NASAL SPRAY (FLONASE) 16 GM BTL NS SCH (09:25)
[2017-09-24] MEDS: DOCUSATE SODIUM 100 MG (COLACE) CAP PO SCH (09:25)
[2017-09-24 09:41] LABS: BASOPHILS % (AUTO) 0 % (0-10); EOSINOPHILS # (AUTO) 0.2 10^3/uL (0.0-0.3); EOSINOPHILS % (AUTO) 2 % (0-10); HEMATOCRIT 35 % (35-52); HEMOGLOBIN 11.1 G/DL (11.5-16.0); LYMPHOCYTES # (AUTO) 2.1 X 10^3 (1.0-4.0); LYMPHOCYTES % (AUTO) 23 % (12-44); MEAN CORPUSCULAR HEMOGLOBIN 29 PG (25-34); MEAN CORPUSCULAR HGB CONC 32 G/DL (32-36); MEAN CORPUSCULAR VOLUME 90 FL (80-99); MEAN PLATELET VOLUME 8.7 FL (7.4-10.4); MONOCYTES # (AUTO) 0.6 X 10^3 (0.0-1.0); MONOCYTES % (AUTO) 7 % (0-12); NEUTROPHILS % (AUTO) 67 % (42-75); PLATELET COUNT 456 10^3/uL (130-400); RED CELL DISTRIBUTION WIDTH 13.5 % (10.0-14.5)
[2017-09-24 10:01] LABS: ALANINE AMINOTRANSFERASE 56 U/L (0-55); ALKALINE PHOSPHATASE 99 U/L (40-136); BILIRUBIN,TOTAL 0.5 MG/DL (0.1-1.0); BUN/CREATININE RATIO 10; CALCIUM 8.5 MG/DL (8.5-10.1); CARBON DIOXIDE 26 MMOL/L (21-32); CHLORIDE 104 MMOL/L (98-107); CREATININE SERUM 0.79 MG/DL (0.60-1.30); GFR ESTIMATED > 60; GLUCOSE 101 MG/DL (70-105); POTASSIUM 3.9 MMOL/L (3.6-5.0); SODIUM 141 MMOL/L (135-145); TOTAL PROTEIN 6.2 GM/DL (6.4-8.2)
[2017-09-24] MEDS ORDERED: LACT1CAP28 PO (10:40)
[2017-09-24] MEDS ORDERED: SIME125T PO (10:40)
[2017-09-24] MEDS ORDERED: ASPI325T32 PO (10:40)
[2017-09-24] MEDS ORDERED: CEFD300C3 PO (11:08)
--- NOTE | 2017-09-24 11:21 | Discharge Summary ---
Diagnosis/Chief Complaint Date of Admission Sep 21, 2017 at 10:35 am Date of Discharge Sep 24, 2016 Admission Diagnosis Admission Diagnosis Bilateral Pneumonia Left Pleural Effusion Pericardial Effusion COPD HTN Tobaccoism History of DVT Anxiety Depression History of Seizures Chronic Pain Chronic Sinusitis GERD Discharge Diagnosis Bilateral Pneumonia 09/22: Zosyn Day 2 for HCAP 09/23: Zosyn Day 3 for HCAP. CRP trending down, 15 --> 10.43. WBC trending down 18,3 --> 12.8 --> 8.5. Blood cultures show no growth to date. 09/24: Afebrile, leukocytosis resolved, no supplemental oxygen requirement, discharged with cefdinir for 7 days. Blood culture and pleural fluid cultures now growth to date. Left Pleural Effusion 09/22: CXR demonstrates increased size of effusion today. Plan for thoracentesis this morning by Dr. Villegas. Will send fluid for cytology and path and repeat CXR in AM 09/23: s/p thoracentesis by Dr. Villegas 09/22 for 1.2 L straw colored fluid. CXR shows good improvement with now mild bilateral pleural effusions. 2: continued improvement by CXR and clinical status- not requiring supplemental oxygen, she would like to have supplemental oxygen and bipap but does not have qualification requirements at this time, may need outpatient sleep study. Effusion suspected to be due to pneumonia, will need further evaluation if recurs. Pulmonary Edema 09/22: CXR appears to show some aspect of volume overload; will diurese today x1 with albumin and lasix, repeat xray in AM and encourage pt to wear bipap intermittently 09/23: Pt has been able to tolerate intermittent bipap with the use of IV ativan. CXR this AM appears improved. Pericardial Effusion 09/22: s/p pericardial window by Dr. Hogue 09/03/17 at [facility] in [place]; effusion demonstrated on CT scan done 09/21, will obtain echo in AM 09/23: cardiomegaly on CXR, suspect due at least in part to pericardial effusion. Echo read is pending. Will consult cardiology due to recurrent pericardial effusion. 12: appreciate Cardiology recommendations- echo 09/22 with EF 65-70% and small pericardial effusion that is not hemodynamically significant Hx of Afib 09/22: review of records from [facility] on 12/12 show that pt had periods of afib after her pericardial window procedure. Continue home amiodarone and atenolol. Telemetry. 09/23: remains in sinus rhythm per telemetry. mild bradycardia. HTN 09/22: continue home dose of atenolol 09/23: well controlled on home medication Tobaccoism 09/22: cessation encouraged History of DVT 09/22: Lovenox 40 mg SQ daily and ambulation Anxiety 09/22: will resume pt's home dose of Xanax 0.5 mg QID, and add IV Ativan Q4H PRN to be used if needed for patient to wear bipap 09/23: pt continues to be anxious, but has been able to tolerate bipap with IV ativan. review of clinic chart shows Xanax dose was recently decreased to 0.5 mg TID; will discharge on updated dose of medication per clinic records. COPD Depression History of Seizures Chronic Pain Chronic Sinusitis GERD Chief Complaint/HPI Chief Complaint/HPI Pt presented to ED by EMS with report of feeling short of breath and fever. On EMS arrival, they noted the patient had significant crackles and were concerned about pulmonary edema and initiated CPAP right away. Initial O2 sat was 93 percent and initial blood pressures in the 120s. Patient also did receive Solu- Medrol 125 mg IV as well as 1.25 mg of Versed IV for anxiety. Doing better on arrival about not moving much air. Still complaining about the mask and left lower rib pain. She believes that she has rib fractures. Does have history of pericardial effusion requiring pericardial window or similar procedure and about 10 days ago was initiated on antibiotic treatment for concerns of possible pneumonia. Finished antibiotics 2 days ago. Patient does report that she's had a fever and increasing shortness of breath. She complains of cough. She uses a pillow for splinting when coughing. Complains of pain to the left lower chest wall is been going on for a few weeks since her surgery. Missed her follow up appointment with Kylah who did her pericardial window that was scheduled for last week because she had car trouble. States she was told that she should be on home oxygen by one of the people at his office. Also states she has spinal stenosis and sits on the couch with her legs crossed and wonders if that is why she has fluid around her lungs. Discharge Summary-Simple/Stand Procedures Left thoracentesis Consultations Dr. Villegas Discharge Physical Examination Allergies: Coded Allergies: buspirone HCl (Verified Allergy, Unknown, 08/14/15) etodolac (Verified Allergy, Unknown, 08/14/15) NSAIDS (Non-Steroidal Anti-Inflamma (Verified Adverse Reaction, Unknown, 08/14/15) Neuromuscular Blockers, Steroidal (Verified Adverse Reaction, Unknown, ) gabapentin (Verified Adverse Reaction, Unknown, 08/14/15) Vitals & I&Os Vital Sign - Last 12Hours Date Time Temp Pulse Resp B/P (MAP) Pulse Ox O2 Delivery O2 Flow Rate FiO2 09/24/17 07:56 98.4 72 18 133/70 (91) 93 Room Air 09/23/17 22:07 2.00 09/22/17 16:00 30 Intake and Output 09/24/17 00:00 Intake Total 2030 ml Output Total 650 ml Balance 1380 ml General Appearance: Alert, No Acute Distress Respiratory: Clear to Auscultation, Normal Air Movement Cardiovascular: Regular Rate, No Murmurs Extremities: No Edema Neuro: Normal Speech Psych/Mental Status: Mental Status NL Hospital Course See final discharge diagnosis. Labs Laboratory Tests Test 09/23/17 03:30 09/24/17 06:25 Range/Units White Blood Count 8.5 9.0 4.3-11.0 10^3/uL Red Blood Count 3.74 L 3.90 L 4.35-5.85 10^6/uL Hemoglobin 10.6 L 11.1 L 11.5-16.0 G/DL Hematocrit 34 L 35 35-52 % Mean Corpuscular Volume 90 90 80-99 FL Mean Corpuscular Hemoglobin 28 29 25-34 PG Mean Corpuscular Hemoglobin Concent 31 L 32 32-36 G/DL Red Cell Distribution Width 14.1 13.5 10.0-14.5 % Platelet Count 462 H 456 H 130-400 10^3/uL Mean Platelet Volume 8.7 8.7 7.4-10.4 FL Neutrophils (%) (Auto) 60 67 42-75 % Lymphocytes (%) (Auto) 33 23 12-44 % Monocytes (%) (Auto) 5 7 0-12 % Eosinophils (%) (Auto) 1 2 0-10 % Basophils (%) (Auto) 0 0 0-10 % Neutrophils # (Auto) 5.1 6.0 1.8-7.8 X 10^3 Lymphocytes # (Auto) 2.8 2.1 1.0-4.0 X 10^3 Monocytes # (Auto) 0.5 0.6 0.0-1.0 X 10^3 Eosinophils # (Auto) 0.1 0.2 0.0-0.3 10^3/uL Basophils # (Auto) 0.0 0.0 0.0-0.1 10^3/uL Sodium Level 143 141 135-145 MMOL/L Potassium Level 3.6 3.9 3.6-5.0 MMOL/L Chloride Level 103 104 98-107 MMOL/L Carbon Dioxide Level 26 26 21-32 MMOL/L Anion Gap 14 11 5-14 MMOL/L Blood Urea Nitrogen 14 8 7-18 MG/DL Creatinine 0.80 0.79 0.60-1.30 MG/DL Estimat Glomerular Filtration Rate > 60 > 60 BUN/Creatinine Ratio 18 10 Glucose Level 83 101 70-105 MG/DL Calcium Level 8.1 L 8.5 8.5-10.1 MG/DL Magnesium Level 1.6 L 2.0 1.8-2.4 MG/DL C-Reactive Protein High Sensitivity 10.93 H 12.29 H 0.00-0.50 MG/DL Total Bilirubin 0.5 0.1-1.0 MG/DL Aspartate Amino Transf (AST/SGOT) 29 5-34 U/L Alanine Aminotransferase (ALT/SGPT) 56 H 0-55 U/L Alkaline Phosphatase 99 40-136 U/L Total Protein 6.2 L 6.4-8.2 GM/DL Albumin 3.0 L 3.2-4.5 GM/DL Radiology Reviewed CXR 09/21/17 The appearance of the chest has worsened since the prior exam as the left lung base is now opacified by atelectasis/infiltrate and fluid. A followup study would be recommended for continued evaluation. CT Chest/Abd 09/21/17 1. Bilateral effusions left greater than right with bibasal infiltrates left also greater than right. 2. Emphysematous disease. 3. Shotty lymph nodes in the mediastinum most likely reactive. This could be followed to assure complete resolution. Other incidental findings as noted above. 4. Pericardial effusion. CXR 09/22/17 Interval increase in left mid and lower lung zone airspace consolidation with at least moderate sized left pleural effusion. Discharge Instructions to patient/family Please see electronic discharge instructions given to patient. Discharge Medications Reviewed and agree with Discharge Medication list on patient's Discharge Instruction sheet Clinical Quality Measures DVT/VTE Risk/Contraindication: Risk Factor Score Per Nursin RFS Level Per Nursing on Admit: 4+=Very High Copy Copies To 1: HEBERT LAZO MD; WYATT Hanks BETHANY N MD Sep 24, 2017 11:21 am
[2017-09-24 12:00] VITALS: BP 143/73
[2017-09-24] MEDS: KETOROLAC 30 MG/ML VIAL IVP PRN (12:44)
[2017-09-24 13:00] VITALS: BP 143/73
[2017-10-07] MEDS ORDERED: CYANOCOBALAMIN INJ 1000 MCG/ML IJ SCH (16:30)
== END 2017-09-24 13:00 | disposition home or self-care (01) | DRG 194 ==
LOC: EDUNIT# 06:20 → ER 06:21 → ICU 10:35 → 4TH 09-23 12:00
PROVIDERS: ADMIT Family Medicine; ATTEND Family Medicine
PROC: 0W9B3ZX Drainage of Left Pleural Cavity, Percutaneous Approach, Diagnostic (ICD-10-PCS; principal; 2017-09-22)
DX: J18.9 Pneumonia, unspecified organism (principal); J90 Pleural effusion, not elsewhere classified; J81.1 Chronic pulmonary edema; I31.3 Pericardial effusion (noninflammatory); I48.91 Unspecified atrial fibrillation; I10 Essential (primary) hypertension; F17.210 Nicotine dependence, cigarettes, uncomplicated; F41.9 Anxiety disorder, unspecified; J44.9 Chronic obstructive pulmonary disease, unspecified; F32.9 Major depressive disorder, single episode, unspecified; R56.9 Unspecified convulsions; G89.29 Other chronic pain; J32.9 Chronic sinusitis, unspecified; K21.9 Gastro-esophageal reflux disease without esophagitis; M15.0 Primary generalized (osteo)arthritis; Z86.718 Personal history of other venous thrombosis and embolism
CPT/HCPCS: 36415; 71010; 71045; 71250; 76604; 80048; 80053; 81000; 83605; 83735; 85007; 85025; 85027; 85610; 85730; 86141; 87040; 87070; 87205; 87804; 93308; 94640; 94660; 94761

== ENCOUNTER 2017-09-26 22:52 | Emergency (ER) | payer MEDICAID ==
[~2017-09-26] VITALS: Ht 172.7 cm; Wt 86.3 kg
[~2017-09-26 22:52] MED LIST changes: +AMIO200T2 PO; +CEFD300C3 PO; +FURO20TA4; +LACT1CAP28 PO; +POTA10TA10; +SIME125T PO
[2017-09-26] MEDS ORDERED: DICL75TA2 (23:03)
[2017-09-26] MEDS ORDERED: TIZA4TAB3 (23:03)
--- NOTE | 2017-09-26 23:19 | ED Cardiac General ---
History of Present Illness General Chief Complaint: Cardiac/General Problems Stated Complaint: LOW BLOOD PRESSURE Nursing Triage Note: C/O low blood pressure Source: patient, family Exam Limitations: no limitations History of Present Illness Time seen by provider: 23:08 Initial Comments Patient presents to ER by private conveyance with chief complaint that she has been treated in the hospital for pneumonia and fluid collection pleural effusion and was in the ICU and had a drain placed. She is still on Omnicef and just saw her doctor yesterday. A repeat chest x-ray was obtained and they were told she was stable and continue the antibiotics. She is been given Toradol as well as diclofenac for her chest wall pain but she doesn't feel that anything is work as well as Toradol. Unfortunately she has a history of GERD and acid reflux and she feels the Toradol has made her acid reflux worse. She is not having any nausea right now. Her chest wall pain is worse when she takes deep inspirations or coughs. She is concerned she may have had a reacting ablation of her fluid night because she started feeling a little lightheaded and weak so she checked her blood pressure on her wrist cuff and said it was 72 systolic. On arrival the ER her blood pressure is now 1:30 systolic. She did not bring her blood pressure cuff with her and she has not had it checked at the doctor's office. She still smokes cigarettes. She denies any fevers, chills, sweats, nausea, diarrhea, constipation. Patient says she is working with pulmonology to get a sleep study set up and get her on home oxygen because her sats stayed in the 90-95 range. Allergies and Home Medications Allergies Coded Allergies: buspirone HCl (Verified Allergy, Unknown, 08/14/15) etodolac (Verified Allergy, Unknown, 08/14/15) NSAIDS (Non-Steroidal Anti-Inflamma (Verified Adverse Reaction, Unknown, 08/14/15) Neuromuscular Blockers, Steroidal (Verified Adverse Reaction, Unknown, ) gabapentin (Verified Adverse Reaction, Unknown, 08/14/15) Home Medications Albuterol Sulfate 1 Puff Puff, 2 PUFF INH QID PRN for SHORTNESS OF BREATH, ( Reported) Albuterol Sulfate 2.5 Mg/3 Ml Vial.neb, 2.5 MG NEB Q4H PRN for SHORTNESS OF BREATH, (Reported) Alprazolam 0.5 Mg Tablet, 0.5 MG PO TID PRN for ANXIETY, (Reported) Amiodarone HCl 200 Mg Tablet, 200 MG PO DAILY, (Reported) Aspirin 325 Mg Tablet.dr, 325 MG PO DAILY, (Reported) Atenolol 100 Mg Tablet, 50 MG PO BID, (Reported) TAKES 1/2 (100MG) TABLET Cefdinir 300 Mg Capsule, 300 MG PO BID for 7 Days, #14 Prescribed by: ZANA RODRIGUEZ on 09/24/17 1108 Cetirizine HCl 10 Mg Tablet, 10 MG PO DAILY, (Reported) Cholecalciferol (Vitamin D3) 1,000 Unit Tablet, 1,000 UNIT PO BID, (Reported) Cyanocobalamin 1,000 Mcg/Ml Inj, 1,000 MCG IJ MONTHLY, (Reported) Diclofenac Sodium 75 Mg Tablet.dr, (Reported) Dicyclomine HCl 20 Mg Tablet, 20 MG PO QID PRN for STOMACH UPSET, (Reported) Docusate Sodium 100 Mg Capsule, 100 MG PO BID, #60 Prescribed by: NENA WATERS on 09/09/17 1222 Fluticasone Propionate 16 Gm [place].susp, 1 SPRAY NS BID, (Reported) Fluticasone/Salmeterol 1 Each Blst.w.dev, 1 PUFF IH BID, (Reported) Guaifenesin/Dextromethorphan 5 Ml Syrup, 10 ML PO Q6H PRN for COUGH, (Reported) Ibuprofen 600 Mg Tablet, 600 MG PO Q6H PRN for PAIN-MODERATE, #100 Ref 0 Prescribed by: HEBERT LAZO on 08/29/17 1300 Lactobacillus Acidophilus 1 Each Capsule, 1 CAP PO DAILY, (Reported) [place] 3 Polyunsat Fatty Acids 1,000 Mg Cap, 2,000 MG PO BID, (Reported) Omeprazole 40 Mg Capsule.dr, 40 MG PO DAILY, (Reported) Ranitidine HCl 150 Mg Tablet, 150 MG PO BID, (Reported) Simethicone 125 Mg Tab.chew, 2 TAB PO BID PRN for GAS, (Reported) Tizanidine HCl 4 Mg Tablet, (Reported) Review of Systems Constitutional: No chills, No diaphoresis, No fever, No malaise EENTM: No Eye Pain, No Ear Pain Respiratory: Cough, Shortness of Air, Denies Wheezing Gastrointestinal: Denies Abdominal Pain, Denies Constipated, Denies Diarrhea, Denies Nausea Genitourinary: Denies Burning, Denies Discharge Skin: No pruritus, No rash Past [id number]-[id number]-Mmcbfv Hx Patient Social History Alcohol Use: Denies Use Recreational Drug Use: No Smoking Status: Current Everyday Smoker Type Used: Cigarettes 2nd Hand Smoke Exposure: Yes Recent Foreign Travel: No Contact w/Someone Who Travel: No Recent Infectious Disease Expo: No Recent Hopitalizations: Yes (PNEUMONIA, D/C ON 09/24/2017) Immunizations Up To Date Date of Pneumonia Vaccine: Jun 07, 2016 Date of Influenza Vaccine: Jun 07, 2016 Seasonal Allergies Seasonal Allergies: Yes Surgeries History of Surgeries: Yes (HERNIA REPAIR, OVARIAN CYST REMOVAL, C/S X2, oral) Surgeries: Abdominal, Appendectomy, Section, Gallbladder, Hysterectomy , Oophorectomy Respiratory History of Respiratory Disorde: Yes (Tobaccoism) Respiratory Disorders: Asthma, Pneumonia, Pulmonary Embolism, Sleep Apnea, COPD , Emphysema Currently Using CPAP: No Currently Using BIPAP: No Cardiovascular History of Cardiac Disorders: Yes (Pericardial effusion) Cardiac Disorders: Atrial Fibrillation, Chronic Edema/Swelling, Deep Vein Thrombosis, High Cholesterol, Hypertension Neurological History of Neurological Disord: Yes (PSEUDO SEIZURES ) Neurological Disorders: Seizure Disorder 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 System Hx 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 Disorders: Yes Female 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 Disorders: Ovarian Cyst 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, 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 Genitourinary History of Genitourinary Disor: No Gastrointestinal History of Gastrointestinal Di: Yes (CHOKES EASILY) Gastrointestinal Disorders: Gastroesophageal Reflux, Diverticulosis, Hiatal Hernia, Ulcer, Gall Bladder Disease, Irritable Bowel Musculoskeletal History of Musculoskeletal Dis: Yes (CHRONIC KNEE AND HIP PAIN, spinal stenosis ) Musculoskeletal Disorders: Osteoporosis, Arthritis, Chronic Back Pain Endocrine History of Endocrine Disorders: No HEENT History of HEENT Disorders: No Cancer History of Cancer: No Psychosocial History of Psychiatric Problem: Yes Behavioral Health Disorders: Pseudo Seizures, Anxiety Integumentary History of Skin or Integumenta: Yes Skin/Integumentary Disorders: Eczema Blood Transfusions History of Blood Disorders: No Adverse Reaction to a Blood Tr: No Family Medical History Family Medial History: FH: cirrhosis 19 MOTHER FH: liver cancer 19 MOTHER FHx: lung cancer 19 FATHER Hypertension 19 FATHER 19 MOTHER Physical Exam Vital Signs Vital Sign - Last 12Hours 09/26/17 22:59 Temp 97.1 Pulse 89 Resp 18 B/P (MAP) 130/97 (108) Pulse Ox 92 Capillary Refill : Less Than 3 Seconds General Appearance: WD/WN, Mild Distress HEENT: PERRL/EOMI, Pharynx Normal Neck: Full Range of Motion, Non Tender, Supple Respiratory: No Accessory Muscle Use, No Respiratory Distress, Decreased Breath Sounds, Other (chest wall tenderness to palpation) Cardiovascular: Regular Rate, Rhythm, No Edema, No Murmur, Normal Peripheral Pulses Gastrointestinal: Non Tender Extremity: Normal Capillary Refill, Normal Inspection, No Pedal Edema Neurologic/Psychiatric: Alert, Oriented x3, No Motor/Sensory Deficits Skin: Normal Color, Warm/Dry Progress/Results/Core Measures Results/Orders My Orders Orders - SHAI ALVAREZ Chest Pa/Lat (2 View) (09/27/17 00:01) Vital Signs/I&O Vital Sign - Last 12Hours 09/26/17 22:59 Temp 97.1 Pulse 89 Resp 18 B/P (MAP) 130/97 (108) Pulse Ox 92 Blood Pressure Mean: 108 Progress Note : Time: 23:17 Progress Note Per patient's request we'll repeat a chest x-ray to make sure is not large actionable fluid reaccumulation. She is on antibiotic she is not febrile her vital signs have been normal since she's been here. We have asked her to take her blood pressure cuff either here to the ER to have it checked or to her doctor's office and have it checked back shirts accurate. She doesn't a history of amiodarone controlled atrial fibrillation but she says she was having palpitations earlier in the day but not during the period where she was feeling weak and checked her blood pressure. Progress Notes and discharge note from her discharge on 09/24/17 were reviewed. Her initial complaint was hypertension which is not case. She's not having any fever, hypoxia, new symptoms. She has follow-up appointment with her primary care physician. She is on antibiotics that are appropriate for acute acquired pneumonia. Diagnostic Imaging Diagonstic Imaging: Xray Plain Films/CT/US/NM/MRI: chest (2v) Comments Unchanged small left pleural effusion and trace right pleural effusion since 09/23 chest x-ray. Reviewed: Reviewed by Me Departure Impression Impression: Primary Impression: Chest wall pain Additional Impression: History of bacterial pneumonia Disposition: HOME, SELF-CARE Condition: Stable Departure-Patient Inst. Decision time for Depature: 00:27 Referrals: ESSIE BABCOCK MD (PCP) Primary Care Physician BRETT JOHNSON (Family) Primary Care Physician Patient Instructions: Pleural Effusion (DC) Add. Discharge Instructions: Your pleural effusion has not changed since the previous x-ray and is not significant enough to warrant draining at this time. If you're pain control is inadequate but you feel the Toradol worked continue taking the Toradol and in the morning call your primary care physician to discuss other pain management options. All discharge instructions reviewed with patient and/or family. Voiced understanding. Copy Copies To 1: CAROLYN ALVARADO TITUS J Sep 26, 2017 23:19
[2017-09-27] MEDS ORDERED: HYDROcodone/APAP 5 MG/325 MG (LORTAB) TAB PO ONE (00:30)
[2017-09-27 00:52] VITALS: BP 130/97
--- NOTE | 2017-09-27 08:03 | Diagnostic Imaging Report ---
INDICATION: Cough, weakness, hypotension. COMPARISON: 09/23/2017. FINDINGS: Bilateral pleural effusions greater left than right have increased. Heart size upper limits but unchanged. Likely Jack Bs and interstitial edema unchanged. Vascular structure is stable. IMPRESSION: Increased left greater than right pleural fluid volumes reflect the only apparent change. Dictated by: Dictated on workstation # [id number]
--- OUTSIDE RECORDS SUMMARY | 2017-09-27 23:49 | XMS REPORT | Continuity of Care Document ---
Author Author Formerly [facility] Address Unknown Phone Unavailable Allergies [...] Allergy N/A N/A 02/03/2013 Yes buspirone HCl [id number] Drug Allergy Unknown N/A 08/14/2015 Yes etodolac [id number] Drug Allergy Unknown N/A 08/14/2015 Yes gabapentin [id number] Drug Allergy Unknown N/A 08/14/2015 Yes Neuromuscular Blockers, Steroidal [id number] Drug Allergy Unknown N/A 08/14 Yes NSAIDS (Non-Steroidal Anti-Inflamma [id number] Drug Allergy Unknown N/A Medications There is [...] K 401.9 HYPERTENSION, UNSPECIFIED ESSENTIAL 01/17/2009 BRETT OJHNSON APRN 296.9 MOOD DIS NOS 01/17/2009 BRETT [...] BRETT JOHNSON APRN 782.3 EDEMA 04/01/2009 BRETT JHONSON APRN 296.90 MOOD DISORDER 04/01/2009 BRETT JOHNSON [...] BRETT JOHNSON APRN 272.4 HYPERLIPIDEMIA 11/08/2010 BRETT JOHNSNO APRN 338.4 CHRONIC PAIN SYNDROME 11/08/2010 BRETT [...] ALVARADO DO, CAROLYN K 251.2 Hypoglycemia 05/21/2011 RBETT JOHNSON APRN 530.81 GERD 05/21/2011 BRETT JOHNSON [...] 05/21/2011 BRETT JOHNSON APRN 530.81 GERD 05/21/2011 BRTET JOHNSON APRN 553.3 HIATAL HERNIA 05/21/2011 BRETT [...] CAROLYN K 790.29 HYPERGLYCEMIA 03/16/2013 LE GREEN, STANELY Soto Ot 787.20 DYSPHAGIA, UNSPECIFIED 03/24/2013 789.01 [...] SCHNEIDER BRETT Conti 251.2 HYPOGLYCEMIA 10/26/2013 ELIZABETH DOBIE MAN, BRETT T V04.81 FLU SHOT 10/26/2013 ALVARADO [...] LOCALIZED EDEMA 07/18/2015 LISE RAVI Ot Z79.82 HOME INSURANCE AGENT (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 07/18/2015 LISE RAVI [...] STANLEY Soto Ot V72.84 11/14/2015 BRETT JOHNSON MAINTENANCE SUPERVISOR ELECTRICAL Ot 789.00 11/14/2015 BRETT JOHNSON MAINTENANCE SUPERVISOR ELECTRICAL Ot 789.01 07/05/2016 EREN MCDONALD APRN Ot F17.210 NICOTINE DEPENDENCE, CIGARETTES, UNCOMPL 07/05/2016 EREN MCDONALD APRN Ot I10 ESSENTIAL (PRIMARY) HYPERTENSION 07/05/2016 EREN MCDONALD DOBIE MAN Ot J44.1 CHRONIC OBSTRUCTIVE PULMONARY DISEASE W 07/05/2016 EREN MCDONALD DOBIE MAN Ot R06.2 WHEEZING 07/05/2016 EREN MCDONALD APRN Ot Z79.82 HOME INSURANCE AGENT (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 07/05/2016 EREN MCDONALD DOBIE MAN Ot Z79.899 OTHER [facility] (CURRENT) DRUG THERAPY 07/06/2016 EREN MCDONALD DOBIE MAN Ot F17.210 NICOTINE DEPENDENCE, CIGARETTES, UNCOMPL 07/06/2016 EREN MCDONALD DOBIE MAN Ot I10 ESSENTIAL (PRIMARY) HYPERTENSION 07/06/2016 EREN MCDONALD DOBIE MAN Ot J44.1 CHRONIC OBSTRUCTIVE PULMONARY DISEASE W 07/06/2016 EREN MCDONALD DOBIE MAN Ot R06.2 WHEEZING 07/06/2016 EREN MCDONALD APRN Ot Z79.82 [facility] (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 07/06/2016 EREN MCDONALD DOBIE MAN Ot Z79.899 OTHER HOME INSURANCE AGENT (CURRENT) DRUG THERAPY 08/15/2016 LE GREEN, STANLEY [...] ABDOMINAL PAIN, UNSPECIFIED SITE 08/20/2016 BRETT JOHNSON MAINTENANCE SUPERVISOR ELECTRICAL Ot 789.01 ABDOMINAL PAIN, RIGHT UPPER QUADRANT 08/20/2016 VEDA TOTH MD ([facility]) Ot Z02.71 ENCOUNTER FOR DISABILITY [...] V72.84 EXAM PRE-OPERATIVE NOS 11/06/2016 BRETT JOHNSON MAINTENANCE SUPERVISOR ELECTRICAL Ot 789.00 ABDOMINAL PAIN, UNSPECIFIED SITE 11/06/2016 BRETT JOHNSON MAINTENANCE SUPERVISOR ELECTRICAL Ot 789.01 ABDOMINAL PAIN, RIGHT UPPER QUADRANT 11/06/2016 VEDA TOTH MD ([facility]) Ot Z02.71 ENCOUNTER FOR DISABILITY DETERMINATION 11/08/2016 BRETT JOHNSON MAINTENANCE SUPERVISOR ELECTRICAL Ot R13.11 DYSPHAGIA, ORAL PHASE 11/23/2016 BRETT JOHNSON MAINTENANCE SUPERVISOR ELECTRICAL Ot R13.11 DYSPHAGIA, ORAL PHASE 08/11/2017 CELESTE [...] PAIN 08/11/2017 NENA ALONSO MD, Ot Z79.82 [facility] (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 08/11/2017 NENA ALONSO [...] DISTRESS 08/29/2017 KRYSTIN WRIGHT MD, Ot Z79.82 HOME INSURANCE AGENT (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 08/29/2017 KRYSTIN WRIGHT [...] DISTRESS 08/29/2017 KRYSTIN WRIGHT MD Ot Z79.82 [facility] (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 08/29/2017 KRYSTIN WRIGHT [...] DISTRESS 08/29/2017 KRYSTIN WRIGHT MD, Ot Z79.82 [facility] (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 08/29/2017 KRYSTIN WRIGHT [...] Ot 789.00 ABDOMINAL PAIN, UNSPECIFIED SITE 09/07/2017 BERTT JOHNSON Ot 789.01 ABDOMINAL PAIN, RIGHT UPPER QUADRANT 09/07/2017 JANEY GREEN, VEDA Marroquin ([facility]) Ot Z02.71 ENCOUNTER FOR DISABILITY [...] PAIN 09/11/2017 NENA ALONSO MD Ot Z79.02 [facility] (CURRENT) USE OF ANTITHROMBOTI 09/11/2017 NENA ALONSO [...] OF OTHER SPECIFIED PART 09/11/2017 NENA ALONSO MD Ot Z90.710 ACQUIRED ABSENCE OF BOTH CERVIX AND UTER 09/11/2017 CELESTE GREEN, NENA Conti Ot Z98.890 OTHER SPECIFIED POSTPROCEDURAL STATES 09/17/2017 CLIFTON GREEN, HEBERT Oshea Ot R07.9 CHEST PAIN, UNSPECIFIED Procedures Code Description [place] [address] INDIV PSYTX 45/50 MIN 08/21/2012 38859 ROUTINE VENIPUNCTURE 08/22/2012 23607 MRI BRAIN W/CONTRAST 08/22/2012 25695 MRI BRAIN W/CONTRAST 08/22/2012 68227 MRI BRAIN W/O & W/DYE 08/22/2012 69734 CBC 08/22/2012 37804 CMP 08/22/2012 05395 LIPID PANEL 08/22/2012 5243021 GFR CALC (RESULT ONLY) 08/22/2012 03006 VIT B 12 08/23/2012 55345 ROUTINE VENIPUNCTURE 01/07/2013 89899 CBC 01/07/2013 67164 CMP 01/07/2013 88920 LIPID PANEL 01/07/2013 5711823 GFR CALC (RESULT ONLY) 01/07/2013 52650 TSH 01/08/2013 63646 VIT B 12 01/08/2013 81474 VITAMIN D 25-HYDROXY (D2,D3 , TOTAL) 01/08/2013 26516 THERAPUTIC INJ SQ/IM 02/03/2013 J3420 B12 VITAMIN INJECTION 02/03/2013 83364 A1C (IN-HOUSE) 02/03/2013 S [place] 02/03/2013 Podiatry Edith Sandoval 02/03/2013 21570 THERAPUTIC INJ SQ/IM 03/24/2013 J3420 B12 VITAMIN INJECTION 03/24/[address] ABDOMEN & PELVIS W/O CONTRAST 03/25/2013 49524 THERAPUTIC INJ SQ/IM 06/23/2013 J3420 B12 VITAMIN INJECTION 06/23/2013 88419 THERAPUTIC INJ SQ/IM 10/26/2013 J3420 B12 VITAMIN INJECTION 10/26/2013 80242 THERAPUTIC INJ SQ/IM 03/31/2014 J3420 B12 VITAMIN INJECTION 03/31/2014 71645 XRAY HIPS BILATERAL 03/31/2014 85108 ROUTINE VENIPUNCTURE 04/01/2014 72850 CBC 04/01/2014 0314460 GFR CALC (RESULT ONLY) 04/01/2014 09570 CMP 04/01/2014 84944 LIPID PANEL 04/01/2014 18322 TSH 04/01/2014 69794 ROUTINE VENIPUNCTURE 10/08/2014 96758 VIT B 12 10/08/2014 98896 PSYCH DIAGNOSTIC EVALUATION 10/08/2014 J3420 B12 VITAMIN INJECTION 10/12/2014 99184 THERAPUTIC INJ SQ/IM 10/12/2014 46996 THERAPUTIC INJ SQ/IM 01/12/2015 J3420 B12 VITAMIN [...] GROWTH Moderate Growth NRG Bacterial sputum culture [id number] NRG Complete blood count (CBC) with automated white [...] Blood erythrocyte morphology finding identification NORMAL NRG Bacterial blood culture - 09/21/17 06:25 Bacterial blood culture NG NRG Bacterial blood culture - 09/21/17 06:46 Bacterial blood culture NG NRG Influenza virus A and B antigen detection - 09/21/17 09:22 FLU RESULT NEGATIVE FOR INFLUENZA A AND B ANTIGENS BY IA NRG Complete urinalysis with reflex to culture - 09/21/17 12:40 Urine color determination YELLOW NRG Urine clarity determination SLIGHTLY CLOUDY NRG Urine pH measurement by test strip 6 5-9 Specific gravity of urine by test [...] urobilinogen measurement by automated test strip (mass/volume) 1 mg/dL NORMAL Urine leukocyte esterase detection by dipstick 1+ NEGATIVE Automated urine sediment erythrocyte count by microscopy (number/high power field) RARE NRG Automated urine sediment leukocyte count by microscopy (number/high power field ) RARE NRG Bacteria detection in urine sediment by light microscopy NEGATIVE NRG Squamous epithelial cells detection in urine sediment by light microscopy 5-10 NRG Crystals detection in urine sediment by light microscopy NONE NRG Casts detection in urine sediment by light microscopy NONE NRG Mucus detection in urine sediment by light microscopy NEGATIVE NRG Complete urinalysis with reflex to culture NO NRG Gram stain microscopy - 09/22/17 00:00 GRAM STAIN RESULT FEW WBC'S, NO BACTERIA OBSERVED NRG Bacterial body fluid culture - 09/22/17 00:00 Bacterial body fluid culture NG NRG Complete blood count (CBC) with automated white blood cell (WBC) differential - 09/22/17 03:10 Blood leukocytes automated count (number/volume) 12.8 10*3/uL 4.3-11.0 Blood erythrocytes automated count (number/volume) 3.77 10*6/uL 4.35-5.85 Venous blood hemoglobin measurement (mass/volume) 10.9 g/dL 11.5-16.0 Blood hematocrit (volume fraction) 33 % 35-52 Automated erythrocyte mean corpuscular volume 88 [foz_us] 80-99 Automated erythrocyte mean corpuscular hemoglobin (mass per erythrocyte) 29 pg 25-34 Automated erythrocyte mean corpuscular hemoglobin concentration measurement ( mass/volume) 33 g/dL 32-36 Automated erythrocyte distribution width ratio 13.6 % 10.0-14.5 Automated blood platelet count (count/volume) 421 10*3/uL 130-400 Automated blood platelet mean volume measurement 8.8 [foz_us] 7.4-10.4 Automated blood neutrophils/100 leukocytes 84 % 42-75 Automated blood lymphocytes/100 leukocytes 11 % 12-44 Blood monocytes/100 leukocytes 6 % 0-12 Automated blood eosinophils/100 leukocytes 0 % 0-10 Automated blood basophils/100 leukocytes 0 % 0-10 Blood neutrophils automated count (number/volume) 10.7 10*3 1.8-7.8 Blood lymphocytes automated count (number/volume) 1.3 10*3 1.0-4.0 Blood monocytes automated count (number/volume) 0.7 10*3 0.0-1.0 Automated eosinophil count 0.0 10*3/uL 0.0-0.3 Automated blood basophil count (count/volume) 0.0 10*3/uL 0.0-0.1 Comprehensive metabolic panel - 09/22/17 03:10 Serum or plasma sodium measurement (moles/volume) 142 mmol/L 135-145 Serum or plasma potassium measurement (moles/volume) 3.3 mmol/L 3.6-5.0 Serum or plasma chloride measurement (moles/volume) 100 mmol/L 98-107 Carbon dioxide 27 mmol/L 21-32 Serum or plasma anion gap determination (moles/volume) 15 mmol/L 5-14 Serum or plasma urea nitrogen measurement (mass/volume) 12 mg/dL 7-18 Serum or plasma creatinine measurement (mass/volume) 0.82 mg/dL 0.60-1.30 Serum or plasma urea nitrogen/creatinine mass ratio 15 NRG Serum or plasma creatinine measurement with calculation of estimated glomerular filtration rate > NRG Serum or plasma glucose measurement (mass/volume) 155 mg/dL 70-105 Serum or plasma calcium measurement (mass/volume) 9.0 mg/dL 8.5-10.1 Serum or plasma total bilirubin measurement (mass/volume) 0.3 mg/dL 0.1-1.0 Serum or plasma alkaline phosphatase measurement (enzymatic activity/volume) 113 U/L 40-136 Serum or plasma aspartate aminotransferase measurement (enzymatic activity/ volume) 75 U/L 5-34 Serum or plasma alanine aminotransferase measurement (enzymatic activity/volume ) 51 U/L 0-55 Serum or plasma protein measurement (mass/volume) 6.5 g/dL 6.4-8.2 Serum or plasma albumin measurement (mass/volume) 2.9 g/dL 3.2-4.5 Magnesium - 09/22/17 03:10 Magnesium 1.8 mg/dL 1.8-2.4 Serum or plasma C reactive protein measurement (mass/volume) - 09/22/17 03:10 Serum or plasma C reactive protein measurement (mass/volume) > mg/ dL 0.00-0.50 Complete blood count (CBC) with automated white blood cell (WBC) differential - 09/23/17 03:30 Blood leukocytes automated count (number/volume) 8.5 10*3/uL 4.3-11.0 Blood erythrocytes automated count (number/volume) 3.74 10*6/uL 4.35-5.85 Venous blood hemoglobin measurement (mass/volume) 10.6 g/dL 11.5-16.0 Blood hematocrit (volume fraction) 34 % 35-52 Automated erythrocyte mean corpuscular volume 90 [foz_us] 80-99 Automated erythrocyte mean corpuscular hemoglobin (mass per erythrocyte) 28 pg 25-34 Automated erythrocyte mean corpuscular hemoglobin concentration measurement ( mass/volume) 31 g/dL 32-36 Automated erythrocyte distribution width ratio 14.1 % 10.0-14.5 Automated blood platelet count (count/volume) 462 10*3/uL 130-400 Automated blood platelet mean volume measurement 8.7 [foz_us] 7.4-10.4 Automated blood neutrophils/100 leukocytes 60 % 42-75 Automated blood lymphocytes/100 leukocytes 33 % 12-44 Blood monocytes/100 leukocytes 5 % 0-12 Automated blood eosinophils/100 leukocytes 1 % 0-10 Automated blood basophils/100 leukocytes 0 % 0-10 Blood neutrophils automated count (number/volume) 5.1 10*3 1.8-7.8 Blood lymphocytes automated count (number/volume) 2.8 10*3 1.0-4.0 Blood monocytes automated count (number/volume) 0.5 10*3 0.0-1.0 Automated eosinophil count 0.1 10*3/uL 0.0-0.3 Automated blood basophil count (count/volume) 0.0 10*3/uL 0.0-0.1 Whole blood basic metabolic panel - 09/23/17 03:30 Serum or plasma sodium measurement (moles/volume) 143 mmol/L 135-145 Serum or plasma potassium measurement (moles/volume) 3.6 mmol/L 3.6-5.0 Serum or plasma chloride measurement (moles/volume) 103 mmol/L 98-107 Carbon dioxide 26 mmol/L 21-32 Serum or plasma anion gap determination (moles/volume) 14 mmol/L 5-14 Serum or plasma urea nitrogen measurement (mass/volume) 14 mg/dL 7-18 Serum or plasma creatinine measurement (mass/volume) 0.80 mg/dL 0.60-1.30 Serum or plasma urea nitrogen/creatinine mass ratio 18 NRG Serum or plasma creatinine measurement with calculation of estimated glomerular filtration rate > NRG Serum or plasma glucose measurement (mass/volume) 83 mg/dL 70-105 Serum or plasma calcium measurement (mass/volume) 8.1 mg/dL 8.5-10.1 Magnesium - 09/23/17 03:30 Magnesium 1.6 mg/dL 1.8-2.4 Serum or plasma C reactive protein measurement (mass/volume) - 09/23/17 03:30 Serum or plasma C reactive protein measurement (mass/volume) 10.93 mg/dL 0.00-0.50 Serum or plasma C reactive protein measurement (mass/volume) - 09/24/17 06:25 Serum or plasma C reactive protein measurement (mass/volume) 12.29 mg/dL 0.00-0.50 Complete blood count (CBC) with automated white blood cell (WBC) differential - 09/24/17 06:25 Blood leukocytes automated count (number/volume) 9.0 10*3/uL 4.3-11.0 Blood erythrocytes automated count (number/volume) 3.90 10*6/uL 4.35-5.85 Venous blood hemoglobin measurement (mass/volume) 11.1 g/dL 11.5-16.0 Blood hematocrit (volume fraction) 35 % 35-52 Automated erythrocyte mean corpuscular volume 90 [foz_us] 80-99 Automated erythrocyte mean corpuscular hemoglobin (mass per erythrocyte) 29 pg 25-34 Automated erythrocyte mean corpuscular hemoglobin concentration measurement ( mass/volume) 32 g/dL 32-36 Automated erythrocyte distribution width ratio 13.5 % 10.0-14.5 Automated blood platelet count (count/volume) 456 10*3/uL 130-400 Automated blood platelet mean volume measurement 8.7 [foz_us] 7.4-10.4 Automated blood neutrophils/100 leukocytes 67 % 42-75 Automated blood lymphocytes/100 leukocytes 23 % 12-44 Blood monocytes/100 leukocytes 7 % 0-12 Automated blood eosinophils/100 leukocytes 2 % 0-10 Automated blood basophils/100 leukocytes 0 % 0-10 Blood neutrophils automated count (number/volume) 6.0 10*3 1.8-7.8 Blood lymphocytes automated count (number/volume) 2.1 10*3 1.0-4.0 Blood monocytes automated count (number/volume) 0.6 10*3 0.0-1.0 Automated eosinophil count 0.2 10*3/uL 0.0-0.3 Automated blood basophil count (count/volume) 0.0 10*3/uL 0.0-0.1 Comprehensive metabolic panel - 09/24/17 06:25 Serum or plasma sodium measurement (moles/volume) 141 mmol/L 135-145 Serum or plasma potassium measurement (moles/volume) 3.9 mmol/L 3.6-5.0 Serum or plasma chloride measurement (moles/volume) 104 mmol/L 98-107 Carbon dioxide 26 mmol/L 21-32 [...] NRG Serum or plasma glucose measurement (mass/volume) 101 mg/dL 70-105 Serum or plasma calcium measurement (mass/volume) 8.5 mg/dL 8.5-10.1 Serum or plasma total bilirubin measurement (mass/volume) 0.5 mg/dL 0.1-1.0 Serum or plasma alkaline phosphatase measurement (enzymatic activity/volume) 99 U/L 40-136 Serum or plasma aspartate aminotransferase measurement (enzymatic activity/ volume) 29 U/L 5-34 Serum or plasma alanine aminotransferase measurement (enzymatic activity/volume ) 56 U/L 0-55 Serum or plasma protein measurement (mass/volume) 6.2 g/dL 6.4-8.2 Serum or plasma albumin measurement (mass/volume) 3.0 g/dL 3.2-4.5 Magnesium - 09/24/17 06:25 Magnesium 2.0 mg/dL 1.8-2.4 Encounters ACCT No. Visit Date/Time Discharge Status Pt. Type Provider Facility Loc./Unit Complaint [id number] 01/12/2015 09:42:00 01/12/2015 23:59:59 CLS Outpatient CAROLYN ALVARADO DO Geovanni [id number] 10/12/2014 16:34:00 10/12/2014 23:59:59 CLS Outpatient BRETT JOHNSON APRN [id number] 10/08/2014 09:10:00 10/08/2014 23:59:59 CLS Outpatient ELIZABETH MICHELLENBRETT Gallito [id number] 04/01/2014 08:55:00 04/01/2014 23:59:59 CLS Outpatient CAROLYN ALVARADO DO [id number] 03/31/2014 12:32:00 03/31/2014 23:59:59 CLS Outpatient BRETT JOHNSON APRN Gallito [id number] 02/10/2014 00:00:00 02/10/2014 23:59:59 CLS Outpatient BRETT JOHNSON APRN [id number] 10/26/2013 15:08:00 10/26/2013 23:59:59 CLS Outpatient BRETT JOHNSON APRN Gallito [id number] 06/23/2013 16:28:00 06/23/2013 23:59:59 CLS Outpatient ELIZABETH MICHELLENBRETT Gallito [id number] 08/22/2012 11:08:00 08/22/2012 23:59:59 CLS Outpatient BRETT JOHNSON APRN Gallito [id number] 05/27/2012 15:00:00 05/27/2012 23:59:59 CLS Outpatient ELIZABETH MICHELLENBRETT Gallito [id number] 03/24/2013 16:33:00 Document Registration [id number] 03/24/2013 16:33:00 Document Registration [id number] 03/09/2013 13:37:00 Document Registration [id number] 02/03/2013 15:10:00 Document Registration [id number] 02/03/2013 15:10:00 Document Registration [id number] 01/27/2013 13:19:00 Document Registration [id number] 01/07/2013 10:11:00 Document Registration [id number] 01/02/2013 11:06:00 Document Registration [id number] 09/09/2017 09:59:00 09/09/2017 12:23:00 DIS Outpatient NENA ALONSO MD [facility] ER PAIN AFTER SURGERY [id number] 09/07/2017 12:15:00 09/07/2017 13:38:00 DIS Emergency CHRISTY SURI WANG [facility] ER FEELS LOW ON O2 [id number] 09/02/2017 10:37:00 09/02/2017 23:59:59 CLS Preadmit KHALIDA PERERA APRN [facility] RT J45.909 ASTHMA [id number] 09/02/2017 10:32:00 09/02/2017 23:59:59 CLS Outpatient HEBERT LAZO MD [facility] CARD PERICARDIAL EFFUSION I31.3 [id number] 08/30/2017 07:14:00 08/30/2017 23:59:59 CLS Outpatient HEBERT LAZO MD [facility] CARD R07.9 [id number] 08/28/2017 23:07:00 08/29/2017 15:55:00 DIS Inpatient KRYSTIN WRIGHT MD [facility] ICU CHEST PAIN,PERICARDIAL EFFUSIAN [id number] 08/11/2017 07:09:00 08/11/2017 10:08:00 DIS Emergency NENA ALONSO MD [facility] ER CHEST, BACK, SIDE PAIN [id number] 11/07/2016 09:55:00 11/07/2016 23:59:59 CLS Outpatient BRETT JOHNSON [facility] RAD ORAL PHASE DYSPHAGIA [id number] 08/20/2016 08:10:00 08/20/2016 12:00:00 DIS Outpatient STANLEY MONTANA MD [facility] ABNORMAL BOWEL MOVEMENT; GERD [id number] 08/15/2016 05:38:00 08/15/2016 11:23:00 DIS Outpatient STANLEY MONTANA MD [facility] PREOP ABNORMAL BOWEL MOVEMENT;GERD [id number] 07/05/2016 15:54:00 07/05/2016 17:14:00 DIS Emergency EREN MCDONALD APRN [facility] ER FLU LIKE SYMPTOMS [id number] 11/14/2015 10:15:00 11/14/2015 23:59:59 CLS Outpatient JANEY GREEN, VEDA Marroquin (DDU) [facility] RAD DDU [id number] 11/08/2015 01:37:00 11/08/2015 03:11:00 DIS Emergency CELESTE GREEN, NENA Conti [facility] ER HIGH BLOOD PRESSURE [id number] 08/14/2015 18:30:00 08/14/2015 22:14:00 DIS Emergency JACQUELINE JIMENEZ DO [facility] ER RIGHT SIDE PAIN [id number] 07/18/2015 12:39:00 07/18/2015 15:25:00 DIS Emergency LISE RAVI [facility] ER FEET/LEGS SWELLING/ PAIN [id number] 04/02/2013 11:06:00 04/02/2013 23:59:59 CLS Outpatient BRETT JOHNSON [facility] RAD MASS FOUND IN CT [id number] 03/30/2013 13:03:00 03/30/2013 23:59:59 CLS Outpatient BRETT JOHNSON [facility] RAD UPPER QUAD PAIN [id number] 03/16/2013 11:00:00 03/16/2013 13:55:00 DIS Outpatient STANLEY MONTANA MD [facility] SDC DYSPHAGIA [id number] 03/12/2013 07:13:00 03/12/2013 23:59:59 CLS Outpatient STANLEY MONTANA MD [facility] PREOP DYSPHAGIA [id number] 09/21/2017 06:43:00 Document Registration [id number] 07/18/2015 12:39:00 Document Registration [id number] 12/24/2012 09:46:00 Document Registration [id number] 09/02/2012 08:09:00 Document Registration [id number] 05/21/2012 16:23:00 Document Registration [id number] 04/29/2012 14:12:00 Document Registration [id number] 09/18/2011 10:00:00 Document Registration [id number] 09/01/2011 19:39:00 Document Registration [id number] 07/20/2011 07:06:00 Document Registration [id number] 06/25/2011 09:07:00 Document Registration
== END 2017-09-27 00:52 | disposition home or self-care (01) ==
LOC: EDUNIT# 22:52 → ER 22:53
DX: R07.89 Other chest pain (principal); J43.9 Emphysema, unspecified; G47.30 Sleep apnea, unspecified; I48.91 Unspecified atrial fibrillation; E78.00 Pure hypercholesterolemia, unspecified; I10 Essential (primary) hypertension; G40.909 Epilepsy, unspecified, not intractable, without status epilepticus; K21.9 Gastro-esophageal reflux disease without esophagitis; M81.0 Age-related osteoporosis without current pathological fracture; F41.9 Anxiety disorder, unspecified; F17.210 Nicotine dependence, cigarettes, uncomplicated; Z87.01 Personal history of pneumonia (recurrent); Z86.718 Personal history of other venous thrombosis and embolism; Z98.1 Arthrodesis status; Z80.0 Family history of malignant neoplasm of digestive organs; Z80.1 Family history of malignant neoplasm of trachea, bronchus and lung; Z87.19 Personal history of other diseases of the digestive system; Z79.82 Long term (current) use of aspirin; Z90.710 Acquired absence of both cervix and uterus; Z87.59 Personal history of other complications of pregnancy, childbirth and the puerperium
CPT/HCPCS: 71046; 99283

== ENCOUNTER 2017-10-01 14:53 | Inpatient (IN) | payer MEDICAID ==
[~2017-10-01] VITALS: Ht 172.7 cm; Wt 82.6 kg
[2017-10-01] VITALS (7 sets, daily range): BP systolic 94–127; BP diastolic 67–89
[~2017-10-01 14:53] MED LIST changes: +DICL75TA2 PO; -FLUT16SP22 NS; +FLUT16SP22 NSEACH; +TIZA4TAB3 PO
[2017-10-01] MEDS ORDERED: fentaNYL INJECTION 100 MCG/2 ML AMP ONE (15:22)
[2017-10-01] MEDS ORDERED: fentaNYL INJECTION 100 MCG/2 ML AMP IVP STA (15:23)
--- NOTE | 2017-10-01 15:29 | ED Chest Pain ---
General Chief Complaint: Cardiac/General Problems Stated Complaint: AFIB Source: patient Exam Limitations: no limitations History of Present Illness Time seen by provider: 14:55 Initial Comments Here with report of fast heart rate as found by her home health nurse. She is instructed to follow-up at the hospital. She presents with left-sided chest pain and has history of this after pleural effusion and draining. Reports a little bit short of breath. States her pain medicines aren't working. Denies fever currently but apparently has been having fever and night sweats overnight. She is due to get a chest x-ray tomorrow for follow-up related to her symptoms. Timing/Duration: 1 week, getting worse Severity/Quality: moderate Location: other (left-sided chest) Radiation: arms, neck Activities at Onset: none Prior CP/Workup: no prior cardiac workup, echocardiography, stress test Modifying Factors: worse with movement, improves with rest ASA po [employer]: No NTG SL [employer]: No Associated Symptoms: No abdominal pain, back pain, fatigue, fever/chills, No nausea/vomiting, shortness of breath Allergies and Home Medications Allergies Coded Allergies: buspirone HCl (Verified Allergy, Unknown, 08/14/15) etodolac (Verified Allergy, Unknown, 08/14/15) NSAIDS (Non-Steroidal Anti-Inflamma (Verified Adverse Reaction, Unknown, 08/14/15) Neuromuscular Blockers, Steroidal (Verified Adverse Reaction, Unknown, ) gabapentin (Verified Adverse Reaction, Unknown, 08/14/15) Home Medications Albuterol Sulfate 1 Puff Puff, 2 PUFF INH QID PRN for SHORTNESS OF BREATH, ( Reported) Albuterol Sulfate 2.5 Mg/3 Ml Vial.neb, 2.5 MG NEB Q4H PRN for SHORTNESS OF BREATH, (Reported) Alprazolam 0.5 Mg Tablet, 0.5 MG PO TID PRN for ANXIETY, (Reported) Amiodarone HCl 200 Mg Tablet, 200 MG PO DAILY, (Reported) Aspirin 325 Mg Tablet.dr, 325 MG PO DAILY, (Reported) Atenolol 100 Mg Tablet, 50 MG PO BID, (Reported) TAKES 1/2 (100MG) TABLET Cefdinir 300 Mg Capsule, 300 MG PO BID for 7 Days, #14 Prescribed by: ZANA RODRIGUEZ on 09/24/17 1108 Cetirizine HCl 10 Mg Tablet, 10 MG PO DAILY, (Reported) Cholecalciferol (Vitamin D3) 1,000 Unit Tablet, 1,000 UNIT PO BID, (Reported) Cyanocobalamin 1,000 Mcg/Ml Inj, 1,000 MCG IJ MONTHLY, (Reported) Diclofenac Sodium 75 Mg Tablet.dr, (Reported) Dicyclomine HCl 20 Mg Tablet, 20 MG PO QID PRN for STOMACH UPSET, (Reported) Docusate Sodium 100 Mg Capsule, 100 MG PO BID, #60 Prescribed by: NENA WATERS on 09/09/17 1222 Fluticasone Propionate 16 Gm [place].susp, 1 SPRAY NS BID, (Reported) Fluticasone/Salmeterol 1 Each Blst.w.dev, 1 PUFF IH BID, (Reported) Guaifenesin/Dextromethorphan 5 Ml Syrup, 10 ML PO Q6H PRN for COUGH, (Reported) Ibuprofen 600 Mg Tablet, 600 MG PO Q6H PRN for PAIN-MODERATE, #100 Ref 0 Prescribed by: HEBERT CAMPBELL on 08/29/17 1300 Lactobacillus Acidophilus 1 Each Capsule, 1 CAP PO DAILY, (Reported) Mccrory 3 Polyunsat Fatty Acids 1,000 Mg Cap, 2,000 MG PO BID, (Reported) Omeprazole 40 Mg Capsule.dr, 40 MG PO DAILY, (Reported) Ranitidine HCl 150 Mg Tablet, 150 MG PO BID, (Reported) Simethicone 125 Mg Tab.chew, 2 TAB PO BID PRN for GAS, (Reported) Tizanidine HCl 4 Mg Tablet, (Reported) Review of Systems Constitutional: see HPI, chills, diaphoresis (nighttime), fever, weakness EENTM: No Ear Pain, Nose Congestion Respiratory: Shortness of Air, Denies Wheezing Cardiovascular: Chest Pain, Denies Edema, Denies Lightheadedness Gastrointestinal: Denies Diarrhea, Denies Nausea, Denies Vomiting Musculoskeletal: see HPI, No back pain, muscle pain Skin: no symptoms reported Psychiatric/Neurological: No Symptoms Reported Endocrine: No Symptoms Reported All Other Systems Reviewed Negative Unless Noted: Yes Past Gfojocj-Enwcsx-Jtlvin Hx Patient Social History Alcohol Use: Denies Use Recreational Drug Use: No Smoking Status: Current Everyday Smoker Type Used: Cigarettes 2nd Hand Smoke Exposure: Yes Recent Foreign Travel: No Contact w/Someone Who Travel: No Recent Hopitalizations: Yes (PNEUMONIA, D/C ON 09/24/2017) Immunizations Up To Date Date of Pneumonia Vaccine: Jun 07, 2016 Date of Influenza Vaccine: Jun 07, 2016 Seasonal Allergies Seasonal Allergies: Yes Surgeries History of Surgeries: Yes (HERNIA REPAIR, OVARIAN CYST REMOVAL, C/S X2, oral) Surgeries: Abdominal, Appendectomy, Section, Gallbladder, Hysterectomy , Oophorectomy Respiratory History of Respiratory Disorde: Yes (Tobaccoism) Respiratory Disorders: Asthma, Pneumonia, Pulmonary Embolism, Sleep Apnea, COPD , Emphysema Currently Using CPAP: No Currently Using BIPAP: No Cardiovascular History of Cardiac Disorders: Yes (Pericardial effusion) Cardiac Disorders: Atrial Fibrillation, Chronic Edema/Swelling, Deep Vein Thrombosis, High Cholesterol, Hypertension Neurological History of Neurological Disord: Yes (PSEUDO SEIZURES ) Neurological Disorders: Seizure Disorder 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 System Hx 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 Disorders: Yes Female 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, 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 Genitourinary History of Genitourinary Disor: No Gastrointestinal History of Gastrointestinal Di: Yes (CHOKES EASILY) Gastrointestinal Disorders: Gastroesophageal Reflux, Diverticulosis, Hiatal Hernia, Ulcer, Gall Bladder Disease, Irritable Bowel Musculoskeletal History of Musculoskeletal Dis: Yes (CHRONIC KNEE AND HIP PAIN, spinal stenosis ) Musculoskeletal Disorders: Osteoporosis, Arthritis, Chronic Back Pain Endocrine History of Endocrine Disorders: No HEENT History of HEENT Disorders: No Cancer History of Cancer: No Psychosocial History of Psychiatric Problem: Yes Behavioral Health Disorders: Pseudo Seizures, Anxiety Integumentary History of Skin or Integumenta: Yes Skin/Integumentary Disorders: Eczema Blood Transfusions History of Blood Disorders: No Adverse Reaction to a Blood Tr: No Reviewed Nursing Assessment Reviewed/Agree w Nursing PMH: Yes Family Medical History Family Medial History: FH: cirrhosis 19 MOTHER FH: liver cancer 19 MOTHER FHx: lung cancer 19 FATHER Hypertension 19 FATHER 19 MOTHER Physical Exam Vital Signs Vital Sign - Last 12Hours 10/01/17 15:20 Temp 98.5 Pulse 145 Resp 18 B/P (MAP) 116/78 (91) Pulse Ox 96 Capillary Refill : General Appearance: WD/WN, Mild Distress HEENT: PERRL/EOMI, Pharynx Normal Neck: Non Tender, Supple Respiratory: Decreased Breath Sounds (left-sided), Other (tenderness suicide of the chest) Cardiovascular: No Murmur, Tachycardia Gastrointestinal: Non Tender, Soft Extremity: Normal Range of Motion, Non Tender Neurologic/Psychiatric: Alert, Oriented x3 Skin: Normal Color, Warm/Dry Focused Exam Evaluation Lactate Level Laboratory Tests 10/01/17 15:00: Lactic Acid Level 1.29 Lactic Acid Level Laboratory Tests Test 10/01/17 15:00 Lactic Acid Level 1.29 MMOL/L (0.50-2.00) Progress/Results/Core Measures Results/Orders Lab Results Laboratory Tests Test 10/01/17 15:00 10/01/17 16:37 Range/Units White Blood Count 17.6 H 4.3-11.0 10^3/uL Red Blood Count 4.26 L 4.35-5.85 10^6/uL Hemoglobin 12.3 11.5-16.0 G/DL Hematocrit 37 35-52 % Mean Corpuscular Volume 87 80-99 FL Mean Corpuscular Hemoglobin 29 25-34 PG Mean Corpuscular Hemoglobin Concent 33 32-36 G/DL Red Cell Distribution Width 14.6 H 10.0-14.5 % Platelet Count 561 H 130-400 10^3/uL Mean Platelet Volume 8.6 7.4-10.4 FL Neutrophils (%) (Auto) 78 H 42-75 % Lymphocytes (%) (Auto) 14 12-44 % Monocytes (%) (Auto) 7 0-12 % Eosinophils (%) (Auto) 1 0-10 % Basophils (%) (Auto) 0 0-10 % Neutrophils # (Auto) 13.7 H 1.8-7.8 X 10^3 Lymphocytes # (Auto) 2.4 1.0-4.0 X 10^3 Monocytes # (Auto) 1.3 H 0.0-1.0 X 10^3 Eosinophils # (Auto) 0.2 0.0-0.3 10^3/uL Basophils # (Auto) 0.1 0.0-0.1 10^3/uL Neutrophils % (Manual) 67 % Lymphocytes % (Manual) 20 % Monocytes % (Manual) 7 % Eosinophils % (Manual) 1 % Basophils % (Manual) 0 % Metamyelocytes % 1 % Band Neutrophils 4 % Blood Morphology Comment NORMAL Prothrombin Time 14.0 12.2-14.7 SEC INR Comment 1.1 0.8-1.4 Activated Partial Thromboplast Time 40 H 24-35 SEC Sodium Level 140 135-145 MMOL/L Potassium Level 3.8 3.6-5.0 MMOL/L Chloride Level 102 98-107 MMOL/L Carbon Dioxide Level 25 21-32 MMOL/L Anion Gap 13 5-14 MMOL/L Blood Urea Nitrogen 7 7-18 MG/DL Creatinine 0.78 0.60-1.30 MG/DL Estimat Glomerular Filtration Rate > 60 BUN/Creatinine Ratio 9 Glucose Level 106 H 70-105 MG/DL Lactic Acid Level 1.29 0.50-2.00 MMOL/L Calcium Level 9.2 8.5-10.1 MG/DL Total Bilirubin 0.2 0.1-1.0 MG/DL Aspartate Amino Transf (AST/SGOT) 36 H 5-34 U/L Alanine Aminotransferase (ALT/SGPT) 44 0-55 U/L Alkaline Phosphatase 102 40-136 U/L Troponin I < 0.30 <0.30 NG/ML Total Protein 6.8 6.4-8.2 GM/DL Albumin 3.3 3.2-4.5 GM/DL Urine Color YELLOW Urine Clarity SLIGHTLY CLOUDY Urine pH 5 5-9 Urine Specific [place] 1.010 L 1.016-1.022 Urine Protein 1+ H NEGATIVE Urine Glucose (UA) NEGATIVE NEGATIVE Urine Ketones NEGATIVE NEGATIVE Urine Nitrite NEGATIVE NEGATIVE Urine Bilirubin NEGATIVE NEGATIVE Urine Urobilinogen NORMAL NORMAL MG/DL Urine Leukocyte Esterase 3+ H NEGATIVE Urine RBC (Auto) 2+ H NEGATIVE Urine RBC 2-5 H /HPF Urine WBC 10-25 H /HPF Urine Squamous Epithelial Cells 25-50 H /HPF Urine Crystals NONE /LPF Urine Bacteria TRACE /HPF Urine Casts NONE /LPF Urine Mucus NEGATIVE /LPF Urine Culture Indicated NO My Orders Orders - OZIEL MONREAL MD Cbc With Automated Diff (10/01/17 15:03) Comprehensive Metabolic Panel (10/01/17 15:03) Lactic Acid Analyzer (10/01/17 15:03) Blood Culture (10/01/17 15:03) Sputum Culture (10/01/17 15:03) Ua Culture If Indicated (10/01/17 15:03) Protime With Inr (10/01/17 15:03) Partial Thromboplastin Time (10/01/17 15:03) O2 (10/01/17 15:03) Saline Lock/Iv-Start (10/01/17 15:03) Ekg Tracing (10/01/17 15:03) Troponin I (10/01/17 15:03) Vital Signs Adult Sepsis Patie Q1H (10/01/17 15:03) Remove Rings In Anticipation O (10/01/17 15:03) Chest Pa/Lat (2 View) (10/01/17 15:03) Fentanyl Injection (Sublimaze Injection (10/01/17 15:23) Fentanyl Injection (Sublimaze Injection (10/01/17 15:22) Lorazepam Injection (Ativan Injection) (10/01/17 15:39) Manual Differential (10/01/17 15:00) Ns (Ivpb) (Sodium C... W/Diltiazem Iv Fo (10/01/17 17:30) Diltiazem Injection (Cardizem Injection) (10/01/17 17:30) Diltiazem Injection (Cardizem Injection) (10/01/17 17:19) Diltiazem Iv For Drip (Cardizem Iv For D (10/01/17 17:19) Ns (Ivpb) (Sodium Chloride 0.9% Ivpb Bag (10/01/17 17:20) Influenza A And B Antigens (10/01/17 17:24) Zosyn 4.5g Iv (10/01/17 17:45) Medications Given in ED Current Medications Medications Dose Ordered Sig/Tino Route Start Time Stop Time Status Last Admin Dose Admin Lorazepam 2 mg STK-MED ONCE .ROUTE 10/01/17 15:39 10/01/17 15:42 DC 10/01/17 15:43 1 MG Vital Signs/I&O Vital Sign - Last 12Hours 10/01/17 15:20 Temp 98.5 Pulse 145 Resp 18 B/P (MAP) 116/78 (91) Pulse Ox 96 Progress Note : Progress Note Seen and evaluated. IV, labs, EKG and chest x-ray ordered. Fentanyl 75 g IV ordered. Monitor patient. We will get a lactic acid and blood cultures due to patient's reported history of fever as well as recent instrumentation with thoracentesis. 1716: Heart rate remains sustained despite fluids. I did discuss the case with Dr. Campbell and we will initiate Cardizem bolus at 10 mg and drip at 5 mg and hour. Findings are concerning for infection as well. I would suspect left long given the increased pleural effusion and difficulty in seeing through the lung field. We will initiate pneumonia treatment. I did discuss the case with Dr. Brooke Gill and she accepts patient for admission, inpatient status. We will initiate pneumonia protocol. I will initiate Zosyn at this time. Zosyn 4.5 g IV ordered. All findings and concerns were discussed with the patient and family who agree with plan. Admit, inpatient status. ECG Initial ECG Impression Date: Oct 01, 2017 Initial ECG Impression Time: 15:05 Initial ECG Rate: 145 Initial ECG Rhythm: S.Tach Initial ECG Comparisson: Changed Comment Sinus tachycardia with right ventricular hypertrophy. No evidence of ST elevation IA. Morphology is similar to previous but rate is faster. Interpreted by me. Diagnostic Imaging Diagonstic Imaging: Xray Plain Films/CT/US/NM/MRI: chest [facility] [place], [place] NAME: MAHNAZ VANCE [facility] REC#: [id number] PT STATUS: REG ER : 1965 PHYSICIAN: OZIEL MONREAL MD ADMIT DATE: 10/01/17/ER Draft Date of Exam:10/01/17 CHEST PA/LAT (2 VIEW) INDICATION: Pneumonia, difficulty breathing, recent cardioversion. Study compared 09/27/2017. FINDINGS: Left pleural effusion has increased. Right pleural fluid appears resolved. There is cardiomegaly unchanged. No blayne edema or gross vascular congestion. IMPRESSION: Mixed changes. Right pleural fluid has resolved; however, moderate left pleural effusion has increased. Dictated on workstation # [id number] Dict: 10/01/17 1535 Trans: 10/01/17 1541 JOHN [id number] Interpreted by: NANCY KRISHNAMURTHY Electronically signed by: Reviewed: Reviewed by Me Departure Communication (Admissions) Time/Spoke to Admitting Phy: 17:10 Time/Spoke to Consulting Phy: 17:16 Impression Impression: Primary Impression: Atrial tachycardia Additional Impressions: Recurrent left pleural effusion Left lower lobe pneumonia Qualified Codes: J18.1 - Lobar pneumonia, unspecified organism Disposition: ADMITTED INPATIENT Condition: Stable Admissions Decision to Admit Reason: Admit from ER (General) Decision to Admit/Date: Oct 01, 2017 Time/Decision to Admit Time: 17:10 Departure-Patient Inst. Referrals: ESSIE BABCOCK MD (PCP) Primary Care Physician BRETT JOHNSON (Family) Primary Care Physician OZIEL MONREAL MD Oct 01, 2017 15:29
[2017-10-01 15:37] LABS: HEMATOCRIT 37 % (35-52); HEMOGLOBIN 12.3 G/DL (11.5-16.0); MEAN CORPUSCULAR HEMOGLOBIN 29 PG (25-34); MEAN CORPUSCULAR HGB CONC 33 G/DL (32-36); MEAN CORPUSCULAR VOLUME 87 FL (80-99); PLATELET COUNT 561 10^3/uL (130-400); RED BLOOD COUNT 4.26 10^6/uL (4.35-5.85); RED CELL DISTRIBUTION WIDTH 14.6 % (10.0-14.5); WHITE BLOOD COUNT 17.6 10^3/uL (4.3-11.0)
[2017-10-01 15:38] LABS: BASOPHILS # (AUTO) 0.1 10^3/uL (0.0-0.1); BASOPHILS % (AUTO) 0 % (0-10); EOSINOPHILS # (AUTO) 0.2 10^3/uL (0.0-0.3); EOSINOPHILS % (AUTO) 1 % (0-10); LYMPHOCYTES # (AUTO) 2.4 X 10^3 (1.0-4.0); LYMPHOCYTES % (AUTO) 14 % (12-44); MEAN PLATELET VOLUME 8.6 FL (7.4-10.4); MONOCYTES # (AUTO) 1.3 X 10^3 (0.0-1.0); MONOCYTES % (AUTO) 7 % (0-12); NEUTROPHILS # (AUTO) 13.7 X 10^3 (1.8-7.8); NEUTROPHILS % (AUTO) 78 % (42-75)
[2017-10-01] MEDS ORDERED: LORazepam INJ 2 MG/ML (ATIVAN) VIAL ONE (15:39)
--- NOTE | 2017-10-01 15:41 | Diagnostic Imaging Report ---
INDICATION: Pneumonia, difficulty breathing, recent cardioversion. Study compared 09/27/2017. FINDINGS: Left pleural effusion has increased. Right pleural fluid appears resolved. There is cardiomegaly unchanged. No blayne edema or gross vascular congestion. IMPRESSION: Mixed changes. Right pleural fluid has resolved; however, moderate left pleural effusion has increased. Dictated by: Dictated on workstation # [id number]
[2017-10-01 15:50] LABS: INR 1.1 (0.8-1.4)
[2017-10-01 16:01] LABS: ALANINE AMINOTRANSFERASE 44 U/L (0-55); ALBUMIN 3.3 GM/DL (3.2-4.5); ALKALINE PHOSPHATASE 102 U/L (40-136); BILIRUBIN,TOTAL 0.2 MG/DL (0.1-1.0); BUN/CREATININE RATIO 9; CALCIUM 9.2 MG/DL (8.5-10.1); CARBON DIOXIDE 25 MMOL/L (21-32); CHLORIDE 102 MMOL/L (98-107); CREATININE SERUM 0.78 MG/DL (0.60-1.30); GFR ESTIMATED > 60; GLUCOSE 106 MG/DL (70-105); POTASSIUM 3.8 MMOL/L (3.6-5.0); SODIUM 140 MMOL/L (135-145); TOTAL PROTEIN 6.8 GM/DL (6.4-8.2)
[2017-10-01 16:03] LABS: BAND NEUTROPHILS 4 %; BASOPHILS % (MANUAL) 0 %; EOSINOPHILS % (MANUAL) 1 %; LYMPHOCYTES % (MANUAL) 20 %; METAMYELOCYTES % 1 %; MONOCYTES % (MANUAL) 7 %; NEUTROPHILS % (MANUAL) 67 %; RBC MORPH NORMAL
[2017-10-01 16:44] LABS: BILIRUBIN,URINE NEGATIVE (NEGATIVE); CLARITY,URINE SLIGHTLY CLOUDY; COLOR,URINE YELLOW; GLUCOSE, URINE (UA) NEGATIVE (NEGATIVE); KETONES,URINE NEGATIVE (NEGATIVE); LEUKOCYTE ESTERASE ,URINE 3+ (NEGATIVE); NITRITE,URINE NEGATIVE (NEGATIVE); PH,URINE 5 (5-9); PROTEIN,URINE 1+ (NEGATIVE); UROBILINOGEN,URINE NORMAL (NORMAL)
[2017-10-01 17:11] LABS: BACTERIA,URINE TRACE /HPF; SQUAMOUS EPITHELIAL CELL,UR 25-50 /HPF
[2017-10-01] MEDS ORDERED: DILTIAZEM 125 MG/25 ML IV (CARDIZEM) IV ONE (17:19)
[2017-10-01] MEDS ORDERED: DILTIAZEM 25 MG/5 ML INJ (CARDIZEM) VIAL ONE (17:19)
[2017-10-01] MEDS ORDERED: NS (IVPB) 100 ML ONE ×2 (17:20→17:32)
[2017-10-01] MEDS ORDERED: DILTIAZEM IV FOR DRIP 125 MG in NS (IVPB) 100 ML IV SCH (17:30)
[2017-10-01] MEDS ORDERED: DILTIAZEM 25 MG/5 ML INJ (CARDIZEM) VIAL IVP ONE (17:30)
[2017-10-01] MEDS ORDERED: PIPERACILLIN/TAZO 4.5 GM VIAL (ZOSYN) IV ONE ×2 (17:31→17:45)
[2017-10-01] MEDS ORDERED: INFLUENZA TRIvalent 2017-2018 0.5 ML/45 MCG SYR IM ONE (19:00)
[2017-10-01] MEDS ORDERED: PIPERACILLIN/TAZOBACTAM 4.5 GM/NS 100 ML IV NR ×2 (19:02)
[2017-10-01] MEDS ORDERED: CATHETER FLUSH 10 ML SYR IV PRN (19:15)
[2017-10-01] MEDS ORDERED: ACETAMINOPHEN 325 MG TABLET/CAPLET (TYLENOL) PO PRN (19:15)
[2017-10-01] MEDS: NS IV 1000 ML 1,000 ML IV SCH (19:52)
[2017-10-01] MEDS: ALPRAZolam 0.5 MG (XANAX) TAB PO PRN (19:52)
[2017-10-01] MEDS ORDERED: IBUPROFEN 800 MG (MOTRIN) TAB PO PRN (20:30)
[2017-10-02] VITALS (12 sets, daily range): BP systolic 88–132; BP diastolic 54–93
[2017-10-02] MEDS ORDERED: fentaNYL INJECTION 100 MCG/2 ML AMP IVP PRN
[2017-10-02] MEDS ORDERED: LORazepam INJ 2 MG/ML (ATIVAN) VIAL IVP PRN
[2017-10-02] MEDS ORDERED: fentaNYL INJECTION 100 MCG/2 ML AMP IVP ONE
[2017-10-02] MEDS ORDERED: NS IV 1000 ML 1,000 ML IV SCH
[2017-10-02] MEDS ORDERED: LORazepam INJ 2 MG/ML (ATIVAN) VIAL IVP ONE
[2017-10-02] MEDS ORDERED: KETOROLAC 30 MG/ML VIAL IVP ONE
[2017-10-02] MEDS: PIPERACILLIN/TAZOBACTAM 4.5 GM/NS 100 ML IVPB IV SCH ×4 (01:57→08:40)
[2017-10-02] MEDS ORDERED: DILTIAZEM IV FOR DRIP 125 MG in NS (IVPB) 100 ML IV SCH (03:00)
[2017-10-02] MEDS ORDERED: RT-ALBUTEROL/IPRATROPIUM 3 ML (DUONEB) VIAL INH PRN (04:45)
[2017-10-02 05:18] LABS: BASOPHILS # (AUTO) 0.1 10^3/uL (0.0-0.1); BASOPHILS % (AUTO) 1 % (0-10); EOSINOPHILS # (AUTO) 0.3 10^3/uL (0.0-0.3); EOSINOPHILS % (AUTO) 3 % (0-10); HEMATOCRIT 34 % (35-52); HEMOGLOBIN 10.8 G/DL (11.5-16.0); LYMPHOCYTES # (AUTO) 2.5 X 10^3 (1.0-4.0); LYMPHOCYTES % (AUTO) 26 % (12-44); MEAN CORPUSCULAR HEMOGLOBIN 28 PG (25-34); MEAN CORPUSCULAR HGB CONC 32 G/DL (32-36); MEAN CORPUSCULAR VOLUME 89 FL (80-99); MEAN PLATELET VOLUME 8.7 FL (7.4-10.4); MONOCYTES # (AUTO) 0.9 X 10^3 (0.0-1.0); MONOCYTES % (AUTO) 9 % (0-12); NEUTROPHILS # (AUTO) 6.1 X 10^3 (1.8-7.8); NEUTROPHILS % (AUTO) 62 % (42-75); PLATELET COUNT 504 10^3/uL (130-400); RED BLOOD COUNT 3.83 10^6/uL (4.35-5.85); RED CELL DISTRIBUTION WIDTH 14.7 % (10.0-14.5); WHITE BLOOD COUNT 9.8 10^3/uL (4.3-11.0)
[2017-10-02 05:38] LABS: ALANINE AMINOTRANSFERASE 34 U/L (0-55); ALBUMIN 2.8 GM/DL (3.2-4.5); ALKALINE PHOSPHATASE 95 U/L (40-136); BILIRUBIN,TOTAL 0.3 MG/DL (0.1-1.0); BUN/CREATININE RATIO 9; CALCIUM 8.4 MG/DL (8.5-10.1); CARBON DIOXIDE 24 MMOL/L (21-32); CHLORIDE 106 MMOL/L (98-107); CREATININE SERUM 0.81 MG/DL (0.60-1.30); GFR ESTIMATED > 60; GLUCOSE 110 MG/DL (70-105); MAGNESIUM 1.8 MG/DL (1.8-2.4); POTASSIUM 3.9 MMOL/L (3.6-5.0); SODIUM 143 MMOL/L (135-145); TOTAL PROTEIN 6.1 GM/DL (6.4-8.2)
[2017-10-02] MEDS ORDERED: MAGNESIUM 1 GM/100 ML IVPB 100 ML IV SCH (06:00)
[2017-10-02] MEDS ORDERED: KCL 20 MEQ TAB (K-DUR) PO SCH (06:00)
[2017-10-02] MEDS ORDERED: POTASSIUM CL 10MEQ/50ML IVPB 50 ML IV SCH (06:00)
[2017-10-02] MEDS: RT-ALBUTEROL/IPRATROPIUM 3 ML (DUONEB) VIAL INH SCH ×3 (06:38→14:26)
--- NOTE | 2017-10-02 08:16 | Consultation-Cardiology ---
HPI-Cardiology Cardiology Consultation Date of Consultation 10/02/17 Date of Admission Time Seen by Provider: 08:09 Indication: tachycardia HPI 52 years old lady with history of pericardial effusion, underwent pericardial window procedure at [facility] early in August 2017, was hospitalized recently for pneumonia and pleural effusion, had thoracentesis on the right side and was better. Still having some cough and fever on and off. Noted by home health nurse to have a heart rate of 140-150, was not feeling palpitation or chest pain. I instructed her to go to the emergency room, patient was noted to be in atrial fibrillation with rapid ventricular response she was started on Cardizem drip at a low dose and overnight she converted to sinus rhythm still having some cough and shortness of breath. Reporting low-grade fever. Home Medications & Allergies Allergies: Coded Allergies: buspirone HCl (Verified Allergy, Unknown, 08/14/15) etodolac (Verified Allergy, Unknown, 08/14/15) NSAIDS (Non-Steroidal Anti-Inflamma (Verified Adverse Reaction, Unknown, 08/14/15) Neuromuscular Blockers, Steroidal (Verified Adverse Reaction, Unknown, ) gabapentin (Verified Adverse Reaction, Unknown, 08/14/15) Home Medication List Reviewed: Yes XGM-Mfpjmb-Halikm Hx Patient Social History Alcohol Use: Denies Use Recreational Drug Use: No Smoking Status: Current Everyday Smoker Type Used: Cigarettes 2nd Hand Smoke Exposure: Yes Recent Foreign Travel: No Recent Infectious Disease Expo: No Recent Hopitalizations: Yes (PNEUMONIA, D/C ON 09/24/2017) Physical Abuse Screen: No Sexual Abuse: No Immunizations Up To Date Date of Pneumonia Vaccine: Jun 07, 2016 Date of Influenza Vaccine: Jun 07, 2016 Past Medical History past medical history as discussed below Family Medical History Family History: 19 FATHER FHx: lung cancer Hypertension 19 MOTHER FH: liver cancer FH: cirrhosis Hypertension Constitutional: see HPI, malaise, weakness EENTM: see HPI, no symptoms reported Respiratory: see HPI, cough, dyspnea on exertion, No hemoptysis, No orthopnea, No phlegm, short of breath, No stridor, No wheezing, No other Cardiovascular: see HPI, No chest pain, No edema, No Hx of Intervention, No palpitations, No syncope, No vascular heart diseas, No other Gastrointestinal: no symptoms reported, see HPI Genitourinary: no symptoms reported, see HPI Musculoskeletal: no symptoms reported, see HPI Skin: no symptoms reported, see HPI Psychiatric/Neurological: No Symptoms Reported, See HPI Reviewed Test Results Reviewed Test Results Lab Laboratory Tests Test 10/01/17 15:00 10/01/17 16:37 10/02/17 04:35 Range/Units White Blood Count 17.6 H 9.8 4.3-11.0 10^3/uL Red Blood Count 4.26 L 3.83 L 4.35-5.85 10^6/uL Hemoglobin 12.3 10.8 L 11.5-16.0 G/DL Hematocrit 37 34 L 35-52 % Mean Corpuscular Volume 87 89 80-99 FL Mean Corpuscular Hemoglobin 29 28 25-34 PG Mean Corpuscular Hemoglobin Concent 33 32 32-36 G/DL Red Cell Distribution Width 14.6 H 14.7 H 10.0-14.5 % Platelet Count 561 H 504 H 130-400 10^3/uL Mean Platelet Volume 8.6 8.7 7.4-10.4 FL Neutrophils (%) (Auto) 78 H 62 42-75 % Lymphocytes (%) (Auto) 14 26 12-44 % Monocytes (%) (Auto) 7 9 0-12 % Eosinophils (%) (Auto) 1 3 0-10 % Basophils (%) (Auto) 0 1 0-10 % Neutrophils # (Auto) 13.7 H 6.1 1.8-7.8 X 10^3 Lymphocytes # (Auto) 2.4 2.5 1.0-4.0 X 10^3 Monocytes # (Auto) 1.3 H 0.9 0.0-1.0 X 10^3 Eosinophils # (Auto) 0.2 0.3 0.0-0.3 10^3/uL Basophils # (Auto) 0.1 0.1 0.0-0.1 10^3/uL Neutrophils % (Manual) 67 % Lymphocytes % (Manual) 20 % Monocytes % (Manual) 7 % Eosinophils % (Manual) 1 % Basophils % (Manual) 0 % Metamyelocytes % 1 % Band Neutrophils 4 % Blood Morphology Comment NORMAL Prothrombin Time 14.0 12.2-14.7 SEC INR Comment 1.1 0.8-1.4 Activated Partial Thromboplast Time 40 H 24-35 SEC Sodium Level 140 143 135-145 MMOL/L Potassium Level 3.8 3.9 3.6-5.0 MMOL/L Chloride Level 102 106 98-107 MMOL/L Carbon Dioxide Level 25 24 21-32 MMOL/L Anion Gap 13 13 5-14 MMOL/L Blood Urea Nitrogen 7 7 7-18 MG/DL Creatinine 0.78 0.81 0.60-1.30 MG/DL Estimat Glomerular Filtration Rate > 60 > 60 BUN/Creatinine Ratio 9 9 Glucose Level 106 H 110 H 70-105 MG/DL Lactic Acid Level 1.29 0.50-2.00 MMOL/L Calcium Level 9.2 8.4 L 8.5-10.1 MG/DL Total Bilirubin 0.2 0.3 0.1-1.0 MG/DL Aspartate Amino Transf (AST/SGOT) 36 H 22 5-34 U/L Alanine Aminotransferase (ALT/SGPT) 44 34 0-55 U/L Alkaline Phosphatase 102 95 40-136 U/L Troponin I < 0.30 <0.30 NG/ML Total Protein 6.8 6.1 L 6.4-8.2 GM/DL Albumin 3.3 2.8 L 3.2-4.5 GM/DL Urine Color YELLOW Urine Clarity SLIGHTLY CLOUDY Urine pH 5 5-9 Urine Specific [place] 1.010 L 1.016-1.022 Urine Protein 1+ H NEGATIVE Urine Glucose (UA) NEGATIVE NEGATIVE Urine Ketones NEGATIVE NEGATIVE Urine Nitrite NEGATIVE NEGATIVE Urine Bilirubin NEGATIVE NEGATIVE Urine Urobilinogen NORMAL NORMAL MG/DL Urine Leukocyte Esterase 3+ H NEGATIVE Urine RBC (Auto) 2+ H NEGATIVE Urine RBC 2-5 H /HPF Urine WBC 10-25 H /HPF Urine Squamous Epithelial Cells 25-50 H /HPF Urine Crystals NONE /LPF Urine Bacteria TRACE /HPF Urine Casts NONE /LPF Urine Mucus NEGATIVE /LPF Urine Culture Indicated NO Phosphorus Level 5.0 H 2.3-4.7 MG/DL Magnesium Level 1.8 1.8-2.4 MG/DL Physical Exam Vital Signs Vital Sign - Last 12Hours 10/01/17 10/01/17 10/01/17 15:20 18:30 23:01 Temp 98.5 Pulse 145 Resp 18 B/P (MAP) 116/78 (91) Pulse Ox 96 O2 Delivery Nasal Cannula O2 Flow Rate 1.00 FiO2 24 Capillary Refill : Less Than 3 Seconds General Appearance: WD/WN, Mild Distress Eyes: Bilateral Eye Normal Inspection, Bilateral Eye PERRL, Bilateral Eye EOMI HEENT: PERRL/EOMI, TMs Normal, Normal ENT Inspection, Pharynx Normal Neck: Full Range of Motion, Normal Inspection, Non Tender, Supple, Carotid Bruit Respiratory: No Accessory Muscle Use, No Respiratory Distress, Crackles (at the left base) Cardiovascular: Regular Rate, Rhythm, No Edema, No JVD, No Murmur, Normal Peripheral Pulses, Friction Rub Gastrointestinal: Normal Bowel Sounds, No Organomegaly, No Pulsatile Mass, Non Tender, Soft Back: Normal Inspection, No CVA Tenderness, No Vertebral Tenderness Extremity: Normal Capillary Refill, Normal Inspection, Normal Range of Motion, Non Tender, No Calf Tenderness, No Pedal Edema Neurologic/Psychiatric: Alert, Oriented x3, No Motor/Sensory Deficits, Normal Mood/Affect Skin: Normal Color, Warm/Dry Lymphatic: No Adenopathy A/P-Cardiology Admission Diagnosis Paroxysmal atrial fibrillation Pericardial effusion Bilateral pleural effusion Hypertension Assessment/Plan Paroxysmal atrial fibrillation with rapid ventricular response, had a transient episode of atrial fibrillation on September 03, 2017 after her pericardial window surgery. Was started on amiodarone, converted back to sinus rhythm on Cardizem drip, I will continue on amiodarone and atenolol for now. [id number] score of 2, yearly risk of stroke without oral anticoagulation is 2.2 percent. Patient has history of DVT. I will place her on Eliquis for now and monitor her tolerance and response. We'll wait for 6 months and consideration to discontinue oral anticoagulation. Bradycardia secondary to medication. Continue to monitor. Bilateral pleural effusion status post left thoracentesis, still having right pleural fluid. Still having cough residual from her recent pneumonia Recent pneumonia, treated fully with antibiotics. Managed by primary care physician. Chest x-ray from today is pending. Chest pain, nonspecific etiology-underwent stress test August 2017 revealing no ischemia or infarct, resolved. Likely related to her pericardial effusion Pericardial effusion, moderate to large inside noted by CT scan August 29, 2017. Underwent repeat 2-D echocardiogram on September 02, 2017 revealing worsening of pericardial effusion, was sent to Dr. salazar where she underwent pericardial window on September 03, 2017. Unknown etiology. Reports she's had workup for autoimmune disorder in the past. Continue to monitor. Hypertension-controlled. Continue to monitor blood pressure/heart rate COPD/emphysema-managed by Dr. Teresa Lui, educated in length about smoking cessation Clinical Quality Measures AMI/AHF: ASA po Prior to arrival: No DVT/VTE Risk/Contraindication: Risk Factor Score Per Nursin RFS Level Per Nursing on Admit: 4+=Very High HEBERT LAZO MD Oct 02, 2017 08:16
[2017-10-02] MEDS ORDERED: ENOXAPARIN 100 MG/1 ML (LOVENOX) SYR SC SCH (08:30)
--- NOTE | 2017-10-02 08:34 | Diagnostic Imaging Report ---
EXAMINATION: PA and lateral chest obtained at 417h. INDICATION: Pneumonia, pleural effusion As noted on the prior exam of 10/01/17 the left lung base is obscured by atelectasis/infiltrate and fluid. When compared to the previous study there does not appear to have been any significant change. The left upper lung and right lung remain generally clear. The heart is stable. The mediastinum is not widened. The osseous structures are intact. IMPRESSION: Stable chest. There has been no adverse change since the prior exam. A followup study would be recommended for continued evaluation. Dictated by: Dictated on workstation # [id number]
[2017-10-02] MEDS ORDERED: ATENOLOL 50 MG (TENORMIN) TAB PO SCH (09:00)
[2017-10-02] MEDS ORDERED: AMIODARONE 200 MG (CORDARONE) TAB PO SCH (09:00)
[2017-10-02] MEDS: ALPRAZolam 0.5 MG (XANAX) TAB PO PRN ×2 (09:43→16:53)
[2017-10-02] MEDS ORDERED: DOCU-143 PO (09:48)
[2017-10-02] MEDS ORDERED: IBUP-1773 PO (09:51)
[2017-10-02] MEDS ORDERED: FLUC150T2 PO (09:58)
[2017-10-02] MEDS ORDERED: ACHD5005 PO (09:58)
[2017-10-02] MEDS ORDERED: TRAM50TA2 PO (09:58)
--- OUTSIDE RECORDS SUMMARY | 2017-10-02 11:05 | XMS REPORT | Continuity of Care Document ---
Author Author [facility] Address Unknown Phone Unavailable Allergies Active [...] Allergy N/A N/A 02/03/2013 Yes buspirone HCl [id number] Drug Allergy Unknown N/A 08/14/2015 Yes etodolac [id number] Drug Allergy Unknown N/A 08/14/2015 Yes gabapentin [id number] Drug Allergy Unknown N/A 08/14/2015 Yes Neuromuscular Blockers, Steroidal [id number] Drug Allergy Unknown N/A 08/14 Yes NSAIDS (Non-Steroidal Anti-Inflamma [id number] Drug Allergy Unknown N/A Medications There is [...] Acute 10/08/2008 462 Pharyngitis Acute 10/08/2008 BRETT JOHSNON APRN 462 Pharyngitis Acute 10/08/2008 BRETT JOHNSON [...] SCHNEIDER BRETT Conti 251.2 HYPOGLYCEMIA 10/26/2013 ELIZABETH REEL MAN, BRETT T V04.81 FLU SHOT 10/26/2013 ALVARADO DO CAROLYN K 251.2 HYPOGLYCEMIA 10/26/2013 ALVARADO DO, CAROLYN K V04.81 FLU SHOT 10/26/2013 BRETT JOHNSON APRN [place] 251.2 HYPOGLYCEMIA 10/26/2013 ELIZABETH SCHNEIDER BRETT Conti V04.81 FLU SHOT 10/26/2013 ELIZABETH MICHELLEN, BRETT Conti 251.2 HYPOGLYCEMIA 10/26/2013 ELIZABETH SCHNEIDER, BRTET Conti V04.81 FLU SHOT 10/26/2013 ALVARADO DO, [...] LOCALIZED EDEMA 07/18/2015 LISE RAVI Ot 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 APPRENTICE (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 07/18/2015 LISE RAVI [...] STANLEY Soto Ot V72.84 11/14/2015 BRETT JOHNSON SEROLOGY TECHNICIAN Ot 789.00 11/14/2015 BRETT JOHNSON SEROLOGY TECHNICIAN Ot 789.01 07/05/2016 EREN MCDONALD APRN Ot F17.210 NICOTINE DEPENDENCE, CIGARETTES, UNCOMPL 07/05/2016 EREN MCDONALD APRN Ot I10 ESSENTIAL (PRIMARY) HYPERTENSION 07/05/2016 EREN MCDONALD REEL MAN Ot J44.1 CHRONIC OBSTRUCTIVE PULMONARY DISEASE W 07/05/2016 EREN MCDONALD REEL MAN Ot R06.2 WHEEZING 07/05/2016 EREN MCDONALD APRN Ot 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 APPRENTICE (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 07/05/2016 EREN MCDONALD REEL MAN Ot Z79.899 OTHER USP (CURRENT) DRUG THERAPY 07/06/2016 EREN MCDONALD REEL MAN Ot F17.210 NICOTINE DEPENDENCE, CIGARETTES, UNCOMPL 07/06/2016 EREN MCDONALD REEL MAN Ot I10 ESSENTIAL (PRIMARY) HYPERTENSION 07/06/2016 EREN MCDONALD REEL MAN Ot J44.1 CHRONIC OBSTRUCTIVE PULMONARY DISEASE W 07/06/2016 EREN MCDONALD REEL MAN Ot R06.2 WHEEZING 07/06/2016 EREN MCDONALD APRN Ot Z79.82 USP (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 07/06/2016 EREN MCDONALD REEL MAN Ot Z79.899 OTHER PLATER APPRENTICE (CURRENT) DRUG THERAPY 08/15/2016 LE GREEN, STANLEY [...] ABDOMINAL PAIN, UNSPECIFIED SITE 08/20/2016 BRETT JOHNSON SEROLOGY TECHNICIAN Ot 789.01 ABDOMINAL PAIN, RIGHT UPPER QUADRANT 08/20/2016 VEDA TOTH MD ([facility]) Ot Z02.71 ENCOUNTER FOR DISABILITY DETERMINATION 08/20/2016 [...] V72.84 EXAM PRE-OPERATIVE NOS 11/06/2016 BRETT JOHNSON SEROLOGY TECHNICIAN Ot 789.00 ABDOMINAL PAIN, UNSPECIFIED SITE 11/06/2016 BRETT JOHNSON SEROLOGY TECHNICIAN Ot 789.01 ABDOMINAL PAIN, RIGHT UPPER QUADRANT 11/06/2016 VEDA TOTH MD ([facility]) Ot Z02.71 ENCOUNTER FOR DISABILITY DETERMINATION 11/08/2016 BRETT JOHNSON SEROLOGY TECHNICIAN Ot R13.11 DYSPHAGIA, ORAL PHASE 11/23/2016 BRETT JOHNSON SEROLOGY TECHNICIAN Ot R13.11 DYSPHAGIA, ORAL PHASE 08/11/2017 CELESTE [...] PAIN 08/11/2017 NENA ALONSO MD, Ot Z79.82 USP (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 08/11/2017 NENA ALONSO [...] DISTRESS 08/29/2017 KRYSTIN WRIGHT MD, Ot 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 APPRENTICE (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 08/29/2017 KRYSTIN WRIGHT MD, Ot Z86.718 PERSONAL HISTORY OF OTHER VENOUS THROMBO 08/29/2017 KRYSITN WRIGHT MD, Ot Z87.19 PERSONAL HISTORY OF [...] DISTRESS 08/29/2017 KRYSTIN WRIGHT MD Ot Z79.82 USP (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 08/29/2017 KRYSTIN WRIGHT [...] DISTRESS 08/29/2017 KRYSTIN WRIGHT MD, Ot Z79.82 USP (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 08/29/2017 KRYSTIN WRIGHT [...] UPPER QUADRANT 09/07/2017 JANEY GREEN, VEDA Marroquin ([facility]) Ot Z02.71 ENCOUNTER FOR DISABILITY DETERMINATION 09/07/2017 BRETT JOHNSON Ot R13.11 DYSPHAGIA, ORAL PHASE 09/07/2017 HEBERT LAZO MD Ot R07.9 CHEST PAIN, UNSPECIFIED 09/07/2017 HEBERT LAZO MD Ot I31.3 PERICARDIAL EFFUSION (NONINFLAMMATORY) 09/07/2017 CHRISTYSURI Sepulveda SEROLOGY TECHNICIAN Ot F41.9 ANXIETY DISORDER, UNSPECIFIED 09/07/2017 CHRISTYSURI Sepulveda SEROLOGY TECHNICIAN Ot G47.9 SLEEP DISORDER, UNSPECIFIED 09/07/2017 CHRISTYSURI Sepulveda SEROLOGY TECHNICIAN Ot J44.9 CHRONIC OBSTRUCTIVE PULMONARY DISEASE, U 09/07/2017 CHRISTYSURI Sepulveda SEROLOGY TECHNICIAN Ot K21.9 GASTRO-ESOPHAGEAL REFLUX DISEASE WITHOUT 09/07/2017 CHRISTYSURI SepulvedaP Ot R05 COUGH 09/07/2017 CHRISTYSURI Sepulveda SEROLOGY TECHNICIAN Ot R53.83 OTHER FATIGUE 09/07/2017 CHRISTY, SURI SEROLOGY TECHNICIAN Ot Z86.711 PERSONAL HISTORY OF PULMONARY EMBOLISM 09/07/2017 CHRISTYSURI Sepulveda SEROLOGY TECHNICIAN Ot Z87.01 PERSONAL HISTORY OF PNEUMONIA (RECURRENT 09/07/2017 CHRISTYSURI Sepulveda SEROLOGY TECHNICIAN Ot Z87.19 PERSONAL HISTORY OF OTHER DISEASES OF TH 09/07/2017 CHRISTYSURI Sepulveda SEROLOGY TECHNICIAN Ot Z90.49 ACQUIRED ABSENCE OF OTHER SPECIFIED PART 09/07/2017 SURI HARRISON SEROLOGY TECHNICIAN Ot Z90.710 ACQUIRED ABSENCE OF BOTH CERVIX AND UTER 09/07/2017 CHRISTY SURI SEROLOGY TECHNICIAN Ot Z98.51 TUBAL LIGATION STATUS 09/09/2017 CELESTE GREEN, NENA Conti Ot D72.829 ELEVATED WHITE BLOOD CELL COUNT, UNSPECI 09/09/2017 NENA ALONSO MD Ot E66.9 OBESITY, UNSPECIFIED 09/09/2017 NENA ALONSO MD Ot E78.00 PURE HYPERCHOLESTEROLEMIA, UNSPECIFIED 09/09/2017 NENA ALONSO MD Ot F17.210 NICOTINE DEPENDENCE, CIGARETTES, UNCOMPL 09/09/2017 NENA ALONSO MD Ot F41.9 ANXIETY DISORDER, UNSPECIFIED 09/09/2017 NENA ALONSO MD Ot G40.909 EPILEPSY, UNSP, NOT INTRACTABLE, WITHOUT 09/09/2017 NENA ALONSO MD Ot G47.30 SLEEP APNEA, UNSPECIFIED 09/09/2017 NENA ALONSO MD Ot G89.18 OTHER ACUTE POSTPROCEDURAL PAIN 09/09/2017 NENA ALONSO MD Ot I10 ESSENTIAL (PRIMARY) HYPERTENSION 09/09/2017 NENA ALONSO MD, Ot I48.91 UNSPECIFIED ATRIAL FIBRILLATION 09/09/2017 NENA ALONSO MD, Ot J43.9 EMPHYSEMA, UNSPECIFIED 09/09/2017 NENA ALONSO MD, Ot M19.90 UNSPECIFIED OSTEOARTHRITIS, UNSPECIFIED 09/09/2017 NENA ALONSO MD, Ot M81.0 AGE-RELATED OSTEOPOROSIS W/O CURRENT PAT 09/09/2017 NENA ALONSO MD Ot R07.89 OTHER CHEST PAIN 09/09/2017 NENA ALONSO MD, Ot Z79.02 USP (CURRENT) USE OF ANTITHROMBOTI 09/09/2017 NENA ALONSO MD, Ot Z80.0 FAMILY HISTORY OF MALIGNANT NEOPLASM OF 09/09/2017 NENA ALONSO MD, Ot Z80.1 FAMILY HISTORY OF MALIG NEOPLASM OF TRAC 09/09/2017 NENA ALONSO MD, Ot Z86.718 PERSONAL HISTORY OF OTHER VENOUS THROMBO 09/09/2017 NENA ALONSO MD, Ot Z87.19 PERSONAL HISTORY OF OTHER DISEASES OF TH 09/09/2017 NENA ALONSO MD, Ot Z87.59 PERSONAL HISTORY OF COMP OF PREG, CHLDBR 09/09/2017 NENA ALONSO MD, Ot Z90.49 ACQUIRED ABSENCE OF OTHER SPECIFIED PART 09/09/2017 NENA ALONSO MD, Ot Z90.710 ACQUIRED ABSENCE OF BOTH CERVIX AND UTER 09/09/2017 NENA ALONSO MD Ot Z98.890 OTHER SPECIFIED POSTPROCEDURAL STATES 09/11/2017 NENA ALONSO MD, Ot D72.829 ELEVATED WHITE BLOOD CELL COUNT, UNSPECI 09/11/2017 NENA ALONSO MD, Ot E66.9 OBESITY, UNSPECIFIED 09/11/2017 NENA ALONSO MD, Ot E78.00 PURE HYPERCHOLESTEROLEMIA, UNSPECIFIED 09/11/2017 NENA ALONSO MD, Ot F17.210 NICOTINE DEPENDENCE, CIGARETTES, UNCOMPL 09/11/2017 NENA ALONSO MD, Ot F41.9 ANXIETY DISORDER, UNSPECIFIED 09/11/2017 NENA ALONSO MD, Ot G40.909 EPILEPSY, UNSP, NOT INTRACTABLE, WITHOUT 09/11/2017 NENA ALONSO MD Ot G47.30 SLEEP APNEA, UNSPECIFIED 09/11/2017 NENA ALONSO MD Ot G89.18 OTHER ACUTE POSTPROCEDURAL PAIN 09/11/2017 NENA ALONSO MD Ot I10 ESSENTIAL (PRIMARY) HYPERTENSION 09/11/2017 NENA ALONSO MD Ot I48.91 UNSPECIFIED ATRIAL FIBRILLATION 09/11/2017 NENA ALONSO MD, Ot J43.9 EMPHYSEMA, UNSPECIFIED 09/11/2017 NENA ALONSO MD Ot M19.90 UNSPECIFIED OSTEOARTHRITIS, UNSPECIFIED 09/11/2017 NENA ALONSO MD, Ot M81.0 AGE-RELATED OSTEOPOROSIS W/O CURRENT PAT 09/11/2017 NENA ALONSO MD Ot R07.89 OTHER CHEST PAIN 09/11/2017 NENA ALONSO MD, Ot Z79.02 USP (CURRENT) USE OF ANTITHROMBOTI 09/11/2017 NENA ALONSO MD, Ot Z80.0 FAMILY HISTORY OF MALIGNANT NEOPLASM OF 09/11/2017 NENA ALONSO MD, Ot Z80.1 FAMILY HISTORY OF MALIG NEOPLASM OF TRAC 09/11/2017 NENA ALONSO MD Ot Z86.718 PERSONAL HISTORY OF OTHER VENOUS THROMBO 09/11/2017 NENA ALONSO MD, Ot Z87.19 PERSONAL HISTORY OF OTHER DISEASES OF TH 09/11/2017 NENA ALONSO MD, Ot Z87.59 PERSONAL HISTORY OF COMP OF PREG, CHLDBR 09/11/2017 NENA ALONSO MD Ot Z90.49 ACQUIRED ABSENCE OF OTHER SPECIFIED PART 09/11/2017 NENA ALONSO MD Ot Z90.710 ACQUIRED ABSENCE OF BOTH CERVIX AND UTER 09/11/2017 NENA ALONSO MD Ot Z98.890 OTHER SPECIFIED POSTPROCEDURAL STATES 09/17/2017 HEBERT LAZO MD Ot R07.9 CHEST PAIN, UNSPECIFIED 09/24/2017 JOAN BELTRAN DO Ot F17.210 NICOTINE DEPENDENCE, CIGARETTES, UNCOMPL 09/24/2017 JOAN BELTRAN DO Ot F32.9 MAJOR DEPRESSIVE DISORDER, SINGLE EPISOD 09/24/2017 JOAN BELTRAN DO Ot F41.9 ANXIETY DISORDER, UNSPECIFIED 09/24/2017 JOAN BELTRAN DO Ot G89.29 OTHER CHRONIC PAIN 09/24/2017 JOAN BELTRAN DO Ot I10 ESSENTIAL (PRIMARY) HYPERTENSION 09/24/2017 JOAN BELTRAN DO Ot I31.3 PERICARDIAL EFFUSION (NONINFLAMMATORY) 09/24/2017 JOAN BELTRAN DO Ot I48.91 UNSPECIFIED ATRIAL FIBRILLATION 09/24/2017 JONA BELTRAN DO Ot J18.9 PNEUMONIA, UNSPECIFIED ORGANISM 09/24/2017 JOAN BELTRAN DO Ot J32.9 CHRONIC SINUSITIS, UNSPECIFIED 09/24/2017 JOAN BELTRAN DO Ot J44.9 CHRONIC OBSTRUCTIVE PULMONARY DISEASE, U 09/24/2017 JOAN BELTRAN DO Ot J81.1 CHRONIC PULMONARY EDEMA 09/24/2017 JOAN BELTRAN DO Ot J90 PLEURAL EFFUSION, NOT ELSEWHERE CLASSIFI 09/24/2017 JOAN BELTRAN DO Ot K21.9 GASTRO-ESOPHAGEAL REFLUX DISEASE WITHOUT 09/24/2017 JOAN BELTRAN DO Ot M15.0 PRIMARY GENERALIZED (OSTEO)ARTHRITIS 09/24/2017 JOAN BELTRAN DO Ot R56.9 UNSPECIFIED CONVULSIONS 09/24/2017 JOAN BELTRAN DO Ot Z86.718 PERSONAL HISTORY OF OTHER VENOUS THROMBO 09/24/2017 CLIFTON GREEN, HEBERT Oshea Ot I31.3 PERICARDIAL EFFUSION (NONINFLAMMATORY) Procedures Code Description [place] [address] INDIV PSYTX 45/50 MIN 08/21/2012 69798 ROUTINE VENIPUNCTURE 08/22/2012 34683 MRI BRAIN W/CONTRAST 08/22/2012 67587 MRI BRAIN W/CONTRAST 08/22/2012 92474 MRI BRAIN W/O & W/DYE 08/22/2012 44719 CBC 08/22/2012 27842 CMP 08/22/2012 97700 LIPID PANEL 08/22/2012 4468135 GFR CALC (RESULT ONLY) 08/22/2012 56282 VIT B 12 08/23/2012 83186 ROUTINE VENIPUNCTURE 01/07/2013 17224 CBC 01/07/2013 07409 CMP 01/07/2013 48468 LIPID PANEL 01/07/2013 1925309 GFR CALC (RESULT ONLY) 01/07/2013 28974 TSH 01/08/2013 90523 VIT B 12 01/08/2013 93105 VITAMIN D 25-HYDROXY (D2,D3 , TOTAL) 01/08/2013 43740 THERAPUTIC INJ SQ/IM 02/03/2013 J3420 B12 VITAMIN INJECTION 02/03/2013 34858 A1C (IN-HOUSE) 02/03/2013 General S [place] 02/03/2013 Podiatry Edith Sandoval 02/03/2013 38295 THERAPUTIC INJ SQ/IM 03/24/2013 J3420 B12 VITAMIN INJECTION 03/24/[address] ABDOMEN & PELVIS W/O CONTRAST 03/25/2013 64007 THERAPUTIC INJ SQ/IM 06/23/2013 J3420 B12 VITAMIN INJECTION 06/23/2013 78623 THERAPUTIC INJ SQ/IM 10/26/2013 J3420 B12 VITAMIN INJECTION 10/26/2013 97907 THERAPUTIC INJ SQ/IM 03/31/2014 J3420 B12 VITAMIN INJECTION 03/31/2014 36845 XRAY HIPS BILATERAL 03/31/2014 39036 ROUTINE VENIPUNCTURE 04/01/2014 45181 CBC 04/01/2014 4962494 GFR CALC (RESULT ONLY) 04/01/2014 49169 CMP 04/01/2014 02809 LIPID PANEL 04/01/2014 18021 TSH 04/01/2014 50680 ROUTINE VENIPUNCTURE 10/08/2014 56297 VIT B 12 10/08/2014 89822 PSYCH DIAGNOSTIC EVALUATION 10/08/2014 J3420 B12 VITAMIN INJECTION 10/12/2014 08875 THERAPUTIC INJ SQ/IM 10/12/2014 26620 THERAPUTIC INJ SQ/IM 01/12/2015 J3420 B12 VITAMIN INJECTION 01/12/2015 [id number] DRAINAGE OF LEFT PLEURAL CAVITY, PERC AP 09/22/2017 Results Test Result Range Complete blood count [...] GROWTH Moderate Growth NRG Bacterial sputum culture [id number] NRG Complete blood count (CBC) with automated [...] NRG Manual blood basophils/100 leukocytes 0 % NR Blood erythrocyte morphology finding identification NORMAL NR Bacterial blood culture - 09/21/17 06:25 Bacterial blood culture NG NR Bacterial blood culture - 09/21/17 06:46 Bacterial blood culture NG BANNER Influenza virus A and B antigen detection - 09/21/17 09:22 FLU RESULT NEGATIVE FOR INFLUENZA A AND B ANTIGENS BY IA NR Complete urinalysis with reflex to culture - 09/21/17 12:40 Urine color determination YELLOW NRG Urine clarity determination SLIGHTLY CLOUDY NR Urine pH measurement by test strip 6 [...] - 09/24/17 06:25 Magnesium 2.0 mg/dL 1.8-2.4 Complete blood count (CBC) with automated white blood cell (WBC) differential - 10/01/17 15:00 Blood leukocytes automated count (number/volume) 17.6 10*3/uL 4.3-11.0 Blood erythrocytes automated count (number/volume) 4.26 10*6/uL 4.35-5.85 Venous blood hemoglobin measurement (mass/volume) 12.3 g/dL 11.5-16.0 Blood hematocrit (volume fraction) 37 % 35-52 Automated erythrocyte mean corpuscular volume 87 [foz_us] 80-99 Automated erythrocyte mean corpuscular hemoglobin (mass per erythrocyte) 29 pg 25-34 Automated erythrocyte mean corpuscular hemoglobin concentration measurement ( mass/volume) 33 g/dL 32-36 Automated erythrocyte distribution width ratio 14.6 % 10.0-14.5 Automated blood platelet count (count/volume) 561 10*3/uL 130-400 Automated blood platelet mean volume measurement 8.6 [foz_us] 7.4-10.4 Automated blood neutrophils/100 leukocytes 78 % 42-75 Automated blood lymphocytes/100 leukocytes 14 % 12-44 Blood monocytes/100 leukocytes 7 % 0-12 Automated blood eosinophils/100 leukocytes 1 % 0-10 Automated blood basophils/100 leukocytes 0 % 0-10 Blood neutrophils automated count (number/volume) 13.7 10*3 1.8-7.8 Blood lymphocytes automated count (number/volume) 2.4 10*3 1.0-4.0 Blood monocytes automated count (number/volume) 1.3 10*3 0.0-1.0 Automated eosinophil count 0.2 10*3/uL 0.0-0.3 Automated blood basophil count (count/volume) 0.1 10*3/uL 0.0-0.1 PT panel in platelet poor plasma by coagulation assay - 10/01/17 15:00 Prothrombin time (PT) in platelet poor plasma by coagulation assay 14.0 s 12.2-14.7 INR in platelet poor plasma or blood by coagulation assay 1.1 0.8-1.4 Activated partial thromboplastin time (aPTT) in platelet poor plasma bycoagulation assay - 10/01/17 15:00 Activated partial thromboplastin time (aPTT) in platelet poor plasma bycoagulation assay 40 s 24-35 Blood lactic acid measurement (moles/volume) - 10/01/17 15:00 Blood lactic acid measurement (moles/volume) 1.29 mmol/L 0.50-2.00 Comprehensive metabolic panel - 10/01/17 15:00 Serum or plasma sodium measurement (moles/volume) 140 mmol/L 135-145 Serum or plasma potassium measurement (moles/volume) 3.8 mmol/L 3.6-5.0 Serum or plasma chloride measurement (moles/volume) 102 mmol/L 98-107 Carbon dioxide 25 mmol/L 21-32 Serum or plasma anion gap determination (moles/volume) 13 mmol/L 5-14 Serum or plasma urea nitrogen measurement (mass/volume) 7 mg/dL 7-18 Serum or plasma creatinine measurement (mass/volume) 0.78 mg/dL 0.60-1.30 Serum or plasma urea nitrogen/creatinine mass ratio 9 NRG Serum or plasma creatinine measurement with calculation of estimated glomerular filtration rate > NRG Serum or plasma glucose measurement (mass/volume) 106 mg/dL 70-105 Serum or plasma calcium measurement (mass/volume) 9.2 mg/dL 8.5-10.1 Serum or plasma total bilirubin measurement (mass/volume) 0.2 mg/dL 0.1-1.0 Serum or plasma alkaline phosphatase measurement (enzymatic activity/volume) 102 U/L 40-136 Serum or plasma aspartate aminotransferase measurement (enzymatic activity/ volume) 36 U/L 5-34 Serum or plasma alanine aminotransferase measurement (enzymatic activity/volume ) 44 U/L 0-55 Serum or plasma protein measurement (mass/volume) 6.8 g/dL 6.4-8.2 Serum or plasma albumin measurement (mass/volume) 3.3 g/dL 3.2-4.5 Blood manual differential performed detection - 10/01/17 15:00 Blood monocytes/100 leukocytes 7 % NRG Manual blood segmented neutrophils/100 leukocytes 67 % NRG Blood band neutrophils/100 leukocytes 4 % NRG Manual blood lymphocytes/100 leukocytes 20 % NRG Manual eosinophils/100 leukocytes in nose 1 % NRG Manual blood basophils/100 leukocytes 0 % NRG Blood erythrocyte morphology finding identification NORMAL NRG Manual blood metamyelocytes/100 leukocytes 1 % NRG Serum or plasma troponin i.cardiac measurement (mass/volume) - 10/01/17 15:00 Serum or plasma troponin i.cardiac measurement (mass/volume) < ng/ mL <0.30 Complete urinalysis with reflex to culture - 10/01/17 16:37 Urine color determination YELLOW NRG Urine clarity determination SLIGHTLY CLOUDY NRG Urine pH measurement by test strip 5 5-9 Specific gravity of urine by test [...] NORMAL Urine leukocyte esterase detection by dipstick 3+ NEGATIVE Automated urine sediment erythrocyte count by microscopy (number/high power field) [HPF] NRG Automated urine sediment leukocyte count by microscopy (number/high power field ) [HPF] NRG Bacteria detection in urine sediment by light microscopy TRACE NRG Squamous epithelial cells detection in urine sediment by light microscopy 25-50 NRG Crystals detection in urine sediment by light microscopy NONE NRG Casts detection in urine sediment by light microscopy NONE NRG Mucus detection in urine sediment by light microscopy NEGATIVE NRG Complete urinalysis with reflex to culture NO NRG Influenza virus A and B antigen detection - 10/01/17 17:38 FLU RESULT NEGATIVE FOR INFLUENZA A AND B ANTIGENS BY IA NRG Complete blood count (CBC) with automated white blood cell (WBC) differential - 10/02/17 04:35 Blood leukocytes automated count (number/volume) 9.8 10*3/uL 4.3-11.0 Blood erythrocytes automated count (number/volume) 3.83 10*6/uL 4.35-5.85 Venous blood hemoglobin measurement (mass/volume) 10.8 g/dL 11.5-16.0 Blood hematocrit (volume fraction) 34 % 35-52 Automated erythrocyte mean corpuscular volume 89 [foz_us] 80-99 Automated erythrocyte mean corpuscular hemoglobin (mass per erythrocyte) 28 pg 25-34 Automated erythrocyte mean corpuscular hemoglobin concentration measurement ( mass/volume) 32 g/dL 32-36 Automated erythrocyte distribution width ratio 14.7 % 10.0-14.5 Automated blood platelet count (count/volume) 504 10*3/uL 130-400 Automated blood platelet mean volume measurement 8.7 [foz_us] 7.4-10.4 Automated blood neutrophils/100 leukocytes 62 % 42-75 Automated blood lymphocytes/100 leukocytes 26 % 12-44 Blood monocytes/100 leukocytes 9 % 0-12 Automated blood eosinophils/100 leukocytes 3 % 0-10 Automated blood basophils/100 leukocytes 1 % 0-10 Blood neutrophils automated count (number/volume) 6.1 10*3 1.8-7.8 Blood lymphocytes automated count (number/volume) 2.5 10*3 1.0-4.0 Blood monocytes automated count (number/volume) 0.9 10*3 0.0-1.0 Automated eosinophil count 0.3 10*3/uL 0.0-0.3 Automated blood basophil count (count/volume) 0.1 10*3/uL 0.0-0.1 Comprehensive metabolic panel - 10/02/17 04:35 Serum or plasma sodium measurement (moles/volume) 143 mmol/L 135-145 Serum or plasma potassium measurement (moles/volume) 3.9 mmol/L 3.6-5.0 Serum or plasma chloride measurement (moles/volume) 106 mmol/L 98-107 Carbon dioxide 24 mmol/L 21-32 Serum or plasma anion gap determination (moles/volume) 13 mmol/L 5-14 Serum or plasma urea nitrogen measurement (mass/volume) 7 mg/dL 7-18 Serum or plasma creatinine measurement (mass/volume) 0.81 mg/dL 0.60-1.30 Serum or plasma urea nitrogen/creatinine mass ratio 9 NRG Serum or plasma creatinine measurement with calculation of estimated glomerular filtration rate > NRG Serum or plasma glucose measurement (mass/volume) 110 mg/dL 70-105 Serum or plasma calcium measurement (mass/volume) 8.4 mg/dL 8.5-10.1 Serum or plasma total bilirubin measurement (mass/volume) 0.3 mg/dL 0.1-1.0 Serum or plasma alkaline phosphatase measurement (enzymatic activity/volume) 95 U/L 40-136 Serum or plasma aspartate aminotransferase measurement (enzymatic activity/ volume) 22 U/L 5-34 Serum or plasma alanine aminotransferase measurement (enzymatic activity/volume ) 34 U/L 0-55 Serum or plasma protein measurement (mass/volume) 6.1 g/dL 6.4-8.2 Serum or plasma albumin measurement (mass/volume) 2.8 g/dL 3.2-4.5 Serum or plasma phosphate measurement (mass/volume) - 10/02/17 04:35 Serum or plasma phosphate measurement (mass/volume) 5.0 mg/dL 2.3-4.7 Magnesium - 10/02/17 04:35 Magnesium 1.8 mg/dL 1.8-2.4 Encounters ACCT No. Visit Date/Time Discharge Status Pt. Type Provider Facility Loc./Unit Complaint [id number] 01/12/2015 09:42:00 01/12/2015 23:59:59 CLS Outpatient CAROLYN ALVARADO DO [id number] 10/12/2014 16:34:00 10/12/2014 23:59:59 CLS Outpatient BRETT JOHNSON APRN [id number] 10/08/2014 09:10:00 10/08/2014 23:59:59 CLS Outpatient BRETT JOHNSON APRN [id number] 04/01/2014 08:55:00 04/01/2014 23:59:59 CLS Outpatient CAROLYN ALVARADO DO [id number] 03/31/2014 12:32:00 03/31/2014 23:59:59 CLS Outpatient BRETT JOHNSON APRN [id number] 02/10/2014 00:00:00 02/10/2014 23:59:59 CLS Outpatient BRETT JOHNSON APRN [id number] 10/26/2013 15:08:00 10/26/2013 23:59:59 CLS Outpatient BRETT JOHNSON APRN [id number] 06/23/2013 16:28:00 06/23/2013 23:59:59 CLS Outpatient BRETT JOHNSON APRN [id number] 08/22/2012 11:08:00 08/22/2012 23:59:59 CLS Outpatient BRETT JOHNSON APRN [id number] 05/27/2012 15:00:00 05/27/2012 23:59:59 CLS Outpatient BRETT JOHNSON APRN [id number] 03/24/2013 16:33:00 Document Registration [id number] 03/24/2013 16:33:00 Document Registration [id number] 03/09/2013 13:37:00 Document Registration [id number] 02/03/2013 15:10:00 Document Registration [id number] 02/03/2013 15:10:00 Document Registration [id number] 01/27/2013 13:19:00 Document Registration [id number] 01/07/2013 10:11:00 Document Registration [id number] 01/02/2013 11:06:00 Document Registration [id number] 09/26/2017 22:53:00 09/27/2017 00:52:00 DIS Emergency SHAI ALVAREZ MD [facility] ER LOW BLOOD PRESSURE [id number] 09/21/2017 10:35:00 09/24/2017 13:00:00 DIS Inpatient JOAN BELTRAN DO [facility] 4TH BILAT PNA,PLEURAL EFFUSION BILATERAL [id number] 09/09/2017 09:59:00 09/09/2017 12:23:00 DIS Emergency NENA ALONSO MD [facility] ER PAIN AFTER SURGERY [id number] 09/07/2017 12:15:00 09/07/2017 13:38:00 DIS Emergency SURI HARRISON [facility] ER FEELS LOW ON O2 [id number] 09/02/2017 10:37:00 09/02/2017 23:59:59 CLS Preadmit KHALIDA PERERA REEL MAN [facility] RT J45.909 ASTHMA [id number] 09/02/2017 10:32:00 09/02/2017 23:59:59 CLS Outpatient HEBERT LAZO MD [facility] CARD PERICARDIAL EFFUSION I31.3 [id number] 08/30/2017 07:14:00 08/30/2017 23:59:59 CLS Outpatient HEBERT LAZO MD [facility] CARD R07.9 [id number] 08/28/2017 23:07:00 08/29/2017 15:55:00 DIS Inpatient KRYSTIN WRIGHT MD [facility] ICU CHEST PAIN,PERICARDIAL EFFUSIAN [id number] 08/11/2017 07:09:00 08/11/2017 10:08:00 DIS Emergency NENA ALONSO MD [facility] ER CHEST, BACK, SIDE PAIN [id number] 11/07/2016 09:55:00 11/07/2016 23:59:59 CLS Outpatient BRETT JOHNSON [facility] RAD ORAL PHASE DYSPHAGIA [id number] 08/20/2016 08:10:00 08/20/2016 12:00:00 DIS [facility]; GERD [id number] 08/15/2016 05:38:00 08/15/2016 11:23:00 DIS Outpatient STANLEY MONTANA MD [facility] PREOP ABNORMAL BOWEL MOVEMENT;GERD [id number] 07/05/2016 15:54:00 07/05/2016 17:14:00 DIS Emergency EREN MCDONALD APRN [facility] ER FLU LIKE SYMPTOMS [id number] 11/14/2015 10:15:00 11/14/2015 23:59:59 CLS Outpatient JANEY GREEN, VEDA Marroquin (DDU) [facility] RAD DDU [id number] 11/08/2015 01:37:00 11/08/2015 03:11:00 DIS Emergency NENA ALONSO MD [facility] ER HIGH BLOOD PRESSURE [id number] 08/14/2015 18:30:00 08/14/2015 22:14:00 DIS Emergency JACQUELINE JIMENEZ DO [facility] ER RIGHT SIDE PAIN [id number] 07/18/2015 12:39:00 07/18/2015 15:25:00 DIS Emergency LISE RAVI [facility] ER FEET/LEGS SWELLING/ PAIN [id number] 04/02/2013 11:06:00 04/02/2013 23:59:59 CLS Outpatient BRETT JOHNSON [facility] RAD MASS FOUND IN CT [id number] 03/30/2013 13:03:00 03/30/2013 23:59:59 CLS Outpatient BRETT JOHNSON [facility] RAD UPPER QUAD PAIN [id number] 03/16/2013 11:00:00 03/16/2013 13:55:00 DIS Outpatient STANLEY MONTANA MD Via [facility] SDC DYSPHAGIA [id number] 03/12/2013 07:13:00 03/12/2013 23:59:59 CLS Outpatient STANLEY MONTANA MD Via [facility] PREOP DYSPHAGIA [id number] 10/01/2017 15:45:00 Document Registration [id number] 07/18/2015 12:39:00 Document Registration [id number] 12/24/2012 09:46:00 Document Registration [id number] 09/02/2012 08:09:00 Document Registration [id number] 05/21/2012 16:23:00 Document Registration [id number] 04/29/2012 14:12:00 Document Registration [id number] 09/18/2011 10:00:00 Document Registration [id number] 09/01/2011 19:39:00 Document Registration [id number] 07/20/2011 07:06:00 Document Registration [id number] 06/25/2011 09:07:00 Document Registration
--- OUTSIDE RECORDS SUMMARY | 2017-10-02 12:20 | XMS REPORT | Continuity of Care Document ---
Author Author [facility] Address Unknown Phone Unavailable Allergies Active [...] Allergy N/A N/A 02/03/2013 Yes buspirone HCl [id number] Drug Allergy Unknown N/A 08/14/2015 Yes etodolac [id number] Drug Allergy Unknown N/A 08/14/2015 Yes gabapentin [id number] Drug Allergy Unknown N/A 08/14/2015 Yes Neuromuscular Blockers, Steroidal [id number] Drug Allergy Unknown N/A 08/14 Yes NSAIDS (Non-Steroidal Anti-Inflamma [id number] Drug Allergy Unknown N/A Medications There is [...] 01/17/2009 401.9 HYPERTENSION, UNSPECIFIED ESSENTIAL 01/17/2009 BRETT JONHSON APRN 296.9 MOOD DIS NOS 01/17/2009 BRETT [...] SCHNEIDER BRETT Conti 251.2 HYPOGLYCEMIA 10/26/2013 ELIZABETH MARINE MECHANIC, BRETT T V04.81 FLU SHOT 10/26/2013 ALVARADO [...] LOCALIZED EDEMA 07/18/2015 LISE RAVI Ot Z79.82 SIGN FABRICATOR (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 07/18/2015 LISE RAVI [...] STANLEY Soto Ot V72.84 11/14/2015 BRETT JOHNSON [employer] PHOTOGRAPH Ot 789.00 11/14/2015 BRETT JOHNSON [employer] PHOTOGRAPH Ot 789.01 07/05/2016 EREN MCDONALD APRN Ot F17.210 NICOTINE DEPENDENCE, CIGARETTES, UNCOMPL 07/05/2016 EREN MCDONALD APRN Ot I10 ESSENTIAL (PRIMARY) HYPERTENSION 07/05/2016 EREN MCDONALD MARINE MECHANIC Ot J44.1 CHRONIC OBSTRUCTIVE PULMONARY DISEASE W 07/05/2016 EREN MCDONALD MARINE MECHANIC Ot R06.2 WHEEZING 07/05/2016 EREN MCDONALD APRN Ot Z79.82 SIGN FABRICATOR (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 07/05/2016 EREN MCDONALD MARINE MECHANIC Ot Z79.899 OTHER LONG-TERM (CURRENT) DRUG THERAPY 07/06/2016 EREN MCDONALD MARINE MECHANIC Ot F17.210 NICOTINE DEPENDENCE, CIGARETTES, UNCOMPL 07/06/2016 EREN MCDONALD MARINE MECHANIC Ot I10 ESSENTIAL (PRIMARY) HYPERTENSION 07/06/2016 EREN MCDONALD MARINE MECHANIC Ot J44.1 CHRONIC OBSTRUCTIVE PULMONARY DISEASE W 07/06/2016 EREN MCDONALD MARINE MECHANIC Ot R06.2 WHEEZING 07/06/2016 EREN MCDONALD APRN Ot Z79.82 LONG-TERM (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 07/06/2016 EREN MCDONALD MARINE MECHANIC Ot Z79.899 OTHER SIGN FABRICATOR (CURRENT) DRUG THERAPY 08/15/2016 LE GREEN, STANLEY [...] ABDOMINAL PAIN, UNSPECIFIED SITE 08/20/2016 BRETT JOHNSON EDIT[employer]CHO[employer] PHOTOGRAPH Ot 789.01 ABDOMINAL PAIN, RIGHT UPPER QUADRANT 08/20/2016 VEDA TOTH MD ([facility]) Ot Z02.71 ENCOUNTER FOR DISABILITY [...] V72.84 EXAM PRE-OPERATIVE NOS 11/06/2016 BRETT JOHNSON [employer]CHO[employer] PHOTOGRAPH Ot 789.00 ABDOMINAL PAIN, UNSPECIFIED SITE 11/06/2016 BRETT JOHNSON EDITOR [employer]CHO[employer] PHOTOGRAPH Ot 789.01 ABDOMINAL PAIN, RIGHT UPPER QUADRANT 11/06/2016 VEDA TOTH MD ([facility]) Ot Z02.71 ENCOUNTER FOR DISABILITY DETERMINATION 11/08/2016 BRETT JOHNSON EDITOR [employer]CHO[employer] PHOTOGRAPH Ot R13.11 DYSPHAGIA, ORAL PHASE 11/23/2016 BRETT JOHNSON EDITOR [employer]CHO[employer] PHOTOGRAPH Ot R13.11 DYSPHAGIA, ORAL PHASE 08/11/2017 CELESTE [...] PAIN 08/11/2017 NENA ALONSO MD, Ot Z79.82 LONG-TERM (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 08/11/2017 NENA ALONSO [...] DISTRESS 08/29/2017 KRYSTIN WRIGHT MD, Ot Z79.82 SIGN FABRICATOR (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 08/29/2017 KRYSTIN WRIGHT [...] DISTRESS 08/29/2017 KRYSTIN WRIGHT MD, Ot Z79.82 LONG-TERM (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 [...] UPPER QUADRANT 09/07/2017 JANEY GREEN, VEDA Marroquin ([facility]) Ot Z02.71 ENCOUNTER FOR DISABILITY DETERMINATION 09/07/2017 BRETT JOHNSON Ot R13.11 DYSPHAGIA, ORAL PHASE 09/07/2017 HEBERT LAZO MD Ot R07.9 CHEST PAIN, UNSPECIFIED 09/07/2017 HEBERT LAZO MD Ot I31.3 PERICARDIAL EFFUSION (NONINFLAMMATORY) 09/07/2017 CHRISTYSURI Sepulveda EDITOR [employer]CHO[employer] PHOTOGRAPH Ot F41.9 ANXIETY DISORDER, UNSPECIFIED 09/07/2017 CHRISTYSURI Sepulveda EDITOR [employer]CHO[employer] PHOTOGRAPH Ot G47.9 SLEEP DISORDER, UNSPECIFIED 09/07/2017 CHRISTYSURI Sepulveda EDITOR [employer]CHO[employer] PHOTOGRAPH Ot J44.9 CHRONIC OBSTRUCTIVE PULMONARY DISEASE, U 09/07/2017 CHRISTYSURI Sepulveda EDITOR SCHOOL PHOTOGRAPH Ot K21.9 GASTRO-ESOPHAGEAL REFLUX DISEASE WITHOUT 09/07/2017 CHRISTYSURI SepulvedaP Ot R05 COUGH 09/07/2017 CHRISTYSURI Sepulveda EDITOR SCHOOL PHOTOGRAPH Ot R53.83 OTHER FATIGUE 09/07/2017 CHRISTY, SURI EDITOR SCHOOL PHOTOGRAPH Ot Z86.711 PERSONAL HISTORY OF PULMONARY EMBOLISM 09/07/2017 CHRISTYSURI Sepulveda EDITOR [employer]CHOOL PHOTOGRAPH Ot Z87.01 PERSONAL HISTORY OF PNEUMONIA (RECURRENT 09/07/2017 CHRISTYSURI Sepulveda EDITOR SCHOOL PHOTOGRAPH Ot Z87.19 PERSONAL HISTORY OF OTHER DISEASES OF TH 09/07/2017 CHRISTYSURI Sepulveda EDITOR SCHOOL PHOTOGRAPH Ot Z90.49 ACQUIRED ABSENCE OF OTHER SPECIFIED PART 09/07/2017 SURI HARRISON EDITOR [employer]CHOOL PHOTOGRAPH Ot Z90.710 ACQUIRED ABSENCE OF BOTH CERVIX AND UTER 09/07/2017 CHRISTY SURI EDITOR SCHOOL PHOTOGRAPH Ot Z98.51 TUBAL LIGATION STATUS 09/09/2017 CELESTE [...] MD Ot R07.89 OTHER CHEST PAIN 09/09/2017 NNEA ALONSO MD, Ot Z79.02 LONG-TERM (CURRENT) USE OF ANTITHROMBOTI 09/09/2017 NENA ALONSO [...] MD, Ot F41.9 ANXIETY DISORDER, UNSPECIFIED 09/11/2017 NNEA ALONSO MD, Ot G40.909 EPILEPSY, UNSP, NOT [...] PAIN 09/11/2017 NENA ALONSO MD, Ot Z79.02 LONG-TERM (CURRENT) USE OF ANTITHROMBOTI [...] DO Ot I48.91 UNSPECIFIED ATRIAL FIBRILLATION 09/24/2017 JOAN BELTRAN DO Ot J18.9 PNEUMONIA, UNSPECIFIED ORGANISM [...] Procedures Code [place] [address] INDIV PSYTX 45/50 MIN 08/21/2012 89834 ROUTINE VENIPUNCTURE 08/22/2012 97717 MRI BRAIN W/CONTRAST 08/22/2012 70353 MRI BRAIN W/CONTRAST 08/22/2012 29400 MRI BRAIN W/O & W/DYE 08/22/2012 83776 CBC 08/22/2012 32095 CMP 08/22/2012 92832 LIPID PANEL 08/22/2012 5840462 GFR CALC (RESULT ONLY) 08/22/2012 61027 VIT B 12 08/23/2012 62033 ROUTINE VENIPUNCTURE 01/07/2013 26534 CBC 01/07/2013 17622 CMP 01/07/2013 60624 LIPID PANEL 01/07/2013 3352434 GFR CALC (RESULT ONLY) 01/07/2013 51013 TSH 01/08/2013 49017 VIT B 12 01/08/2013 04584 VITAMIN D 25-HYDROXY (D2,D3 , TOTAL) 01/08/2013 32129 THERAPUTIC INJ SQ/IM 02/03/2013 J3420 B12 VITAMIN INJECTION 02/03/2013 03060 A1C (IN-HOUSE) 02/03/2013 General S [place] 02/03/2013 Podiatry Edith Sandoval 02/03/2013 90865 THERAPUTIC INJ SQ/IM 03/24/2013 J3420 B12 VITAMIN INJECTION 03/24/[address] ABDOMEN & PELVIS W/O CONTRAST 03/25/2013 43074 THERAPUTIC INJ SQ/IM 06/23/2013 J3420 B12 VITAMIN INJECTION 06/23/2013 54003 THERAPUTIC INJ SQ/IM 10/26/2013 J3420 B12 VITAMIN INJECTION 10/26/2013 94309 THERAPUTIC INJ SQ/IM 03/31/2014 J3420 B12 VITAMIN INJECTION 03/31/2014 94702 XRAY HIPS BILATERAL 03/31/2014 63440 ROUTINE VENIPUNCTURE 04/01/2014 73002 CBC 04/01/2014 8130691 GFR CALC (RESULT ONLY) 04/01/2014 32109 CMP 04/01/2014 36905 LIPID PANEL 04/01/2014 19526 TSH 04/01/2014 83447 ROUTINE VENIPUNCTURE 10/08/2014 15943 VIT B 12 10/08/2014 43385 PSYCH DIAGNOSTIC EVALUATION 10/08/2014 J3420 B12 VITAMIN INJECTION 10/12/2014 41467 THERAPUTIC INJ SQ/IM 10/12/2014 41440 THERAPUTIC INJ SQ/IM 01/12/2015 J3420 B12 VITAMIN INJECTION 01/12/2015 5S4N6VM DRAINAGE OF LEFT PLEURAL CAVITY, PERC AP [...] GROWTH Moderate Growth NRG Bacterial sputum culture [id number] NRG Complete blood count (CBC) with automated [...] - 09/21/17 06:46 Bacterial blood culture NG [facility] Influenza virus A and B antigen detection [...] Status Pt. Type Provider Facility Loc./Unit Complaint [id number] 01/12/2015 09:42:00 01/12/2015 23:59:59 CLS Outpatient CAROLYN ALVARADO DO [id number] 10/12/2014 16:34:00 10/12/2014 23:59:59 CLS Outpatient BRETT JOHNSON APRN [id number] 10/08/2014 09:10:00 10/08/2014 23:59:59 CLS Outpatient BRETT JOHNSON APRN [id number] 04/01/2014 08:55:00 04/01/2014 23:59:59 CLS Outpatient CAROLYN ALVARADO DO [id number] 03/31/2014 12:32:00 03/31/2014 23:59:59 CLS Outpatient BRETT JOHNSON APRN [id number] 02/10/2014 00:00:00 02/10/2014 23:59:59 CLS Outpatient BRETT JOHNSON APRN [id number] 10/26/2013 15:08:00 10/26/2013 23:59:59 CLS Outpatient BRETT JOHNSON APRN [id number] 06/23/2013 16:28:00 06/23/2013 23:59:59 CLS Outpatient BRETT JOHNSON APRN [id number] 08/22/2012 11:08:00 08/22/2012 23:59:59 CLS Outpatient BRETT JOHNSON APRN [id number] 05/27/2012 15:00:00 05/27/2012 23:59:59 CLS Outpatient BRETT JOHNSON APRN [id number] 03/24/2013 16:33:00 Document Registration [id number] 03/24/2013 16:33:00 Document Registration [id number] 03/09/2013 13:37:00 Document Registration [id number] 02/03/2013 15:10:00 Document Registration [id number] 02/03/2013 15:10:00 Document Registration [id number] 01/27/2013 13:19:00 Document Registration [id number] 01/07/2013 10:11:00 Document Registration [id number] 01/02/2013 11:06:00 Document Registration [id number] 09/26/2017 22:53:00 09/27/2017 00:52:00 DIS Emergency SHAI ALVAREZ MD [facility] ER LOW BLOOD PRESSURE [id number] 09/21/2017 10:35:00 09/24/2017 13:00:00 DIS Inpatient JOAN BELTRAN DO [facility] 4TH BILAT PNA,PLEURAL EFFUSION BILATERAL [id number] 09/09/2017 09:59:00 09/09/2017 12:23:00 DIS Emergency NENA ALONSO MD [facility] ER PAIN AFTER SURGERY [id number] 09/07/2017 12:15:00 09/07/2017 13:38:00 DIS Emergency SURI HARRISON [facility] ER FEELS LOW ON O2 [id number] 09/02/2017 10:37:00 09/02/2017 23:59:59 CLS Preadmit KHALIDA PERERA MARINE MECHANIC [facility] RT J45.909 ASTHMA [id number] 09/02/2017 10:32:00 09/02/2017 23:59:59 CLS Outpatient HEBERT LAZO MD [facility] CARD PERICARDIAL EFFUSION I31.3 [id number] 08/30/2017 07:14:00 08/30/2017 23:59:59 CLS Outpatient HEBERT LAZO MD [facility] CARD R07.9 [id number] 08/28/2017 23:07:00 08/29/2017 15:55:00 DIS Inpatient KRYSTIN WRIGHT MD [facility] ICU CHEST PAIN,PERICARDIAL EFFUSIAN [id number] 08/11/2017 07:09:00 08/11/2017 10:08:00 DIS Emergency NENA ALONSO MD [facility] ER CHEST, BACK, SIDE PAIN [id number] 11/07/2016 09:55:00 11/07/2016 23:59:59 CLS Outpatient BRETT JOHNSON [facility] RAD ORAL PHASE DYSPHAGIA [id number] 08/20/2016 08:10:00 08/20/2016 12:00:00 DIS [facility]; GERD [id number] 08/15/2016 05:38:00 08/15/2016 11:23:00 DIS Outpatient STANLEY MONTANA MD [facility] PREOP ABNORMAL BOWEL MOVEMENT;GERD [id number] 07/05/2016 15:54:00 07/05/2016 17:14:00 DIS Emergency EREN MCDONALD APRN [facility] ER FLU LIKE SYMPTOMS [id number] 11/14/2015 10:15:00 11/14/2015 23:59:59 CLS Outpatient JANEY GREEN, VEDA Marroquin (DDU) [facility] RAD DDU [id number] 11/08/2015 01:37:00 11/08/2015 03:11:00 DIS Emergency NENA ALONSO MD [facility] ER HIGH BLOOD PRESSURE [id number] 08/14/2015 18:30:00 08/14/2015 22:14:00 DIS Emergency JACQUELINE JIMENEZ DO [facility] ER RIGHT SIDE PAIN [id number] 07/18/2015 12:39:00 07/18/2015 15:25:00 DIS Emergency LISE RAVI [facility] ER FEET/LEGS SWELLING/ PAIN [id number] 04/02/2013 11:06:00 04/02/2013 23:59:59 CLS Outpatient BRETT JOHNSON [facility] RAD MASS FOUND IN CT [id number] 03/30/2013 13:03:00 03/30/2013 23:59:59 CLS Outpatient BRETT JOHNSON [facility] RAD UPPER QUAD PAIN [id number] 03/16/2013 11:00:00 03/16/2013 13:55:00 DIS Outpatient STANLEY MONTANA MD [facility] SDC DYSPHAGIA [id number] 03/12/2013 07:13:00 03/12/2013 23:59:59 CLS Outpatient STANLEY MONTANA MD [facility] PREOP DYSPHAGIA [id number] 10/01/2017 15:45:00 Document Registration [id number] 07/18/2015 12:39:00 Document Registration [id number] 12/24/2012 09:46:00 Document Registration [id number] 09/02/2012 08:09:00 Document Registration [id number] 05/21/2012 16:23:00 Document Registration [id number] 04/29/2012 14:12:00 Document Registration [id number] 09/18/2011 10:00:00 Document Registration [id number] 09/01/2011 19:39:00 Document Registration [id number] 07/20/2011 07:06:00 Document Registration [id number] 06/25/2011 09:07:00 Document Registration
[2017-10-02] MEDS: HYDROcodone/APAP 5 MG/325 MG (LORTAB) TAB PO PRN ×2 (13:02→16:53)
--- NOTE | 2017-10-02 13:42 | D/C HH Face to Face Order ---
D/C Face to Face Orders Instructions for Patient Patient Instructions/FollowUp: SINTIA JOHNSON APRN OCTOBER 10 AT 2PM Physician to follow Patient: DR BABCOCK Discharge Diet for Home: Low Fat/Low Cholesterol Patient Problems: 1. COPD 2. PLEURAL EFFUSION 3. ATRIAL TACHYCARDIA 4. ANXIETY Goals for Patient: IMPROVED ABILITY TO DO ADL'S WITHOUT SHORTNESS OF BREATH OR TACHYCARDIA. Patient Data-Allergies,Ht & Wt Patient Allergies: Coded Allergies: buspirone HCl (Verified Allergy, Unknown, 08/14/15) etodolac (Verified Allergy, Unknown, 08/14/15) NSAIDS (Non-Steroidal Anti-Inflamma (Verified Adverse Reaction, Unknown, 08/14/15) Neuromuscular Blockers, Steroidal (Verified Adverse Reaction, Unknown, ) gabapentin (Verified Adverse Reaction, Unknown, 08/14/15) Height (Feet): 5 Height (Inches): 8.00 Weight (Pounds): 182 Weight (Ounces): 2.0 Home Health Need/Face to Face Date of Face to Face: Oct 02, 2017 Clinical Findings: Shortness of breath I have seen Pt [id number]: Yes Discharged To: Home Diagnosis/Conditions: SEE ABOVE Problems/Diagnosis/Condition: Patient is Homebound due to: Shortness of breath/distress Homebound Status Due to the above stated illness, injury or surgical procedure (medical condition or diagnosis) and associated clinical findings, the patient is homebound because of his/her inability to leave home except with aid of a supportive device and/or person AND leaving the home requires a considerable and taxing effort or is medically contraindicated. Pt req the following assistanc: Aid of another person Home Health Nursing Orders Home Health Services Order: Nursing Services Home Health Infusion Therapy Line Start Date: Oct 01, 2017 Line Start Time: 1500 Line Type: Peripheral IV Site Location: Hand Therapy Orders Therapy Specific Orders: Provider maintenance therapy Certify Stmt I certify that this patient is under my care and that I, a nurse practitioner or a physician; a orthopedic assistant working with me, had a face to face encounter that - meets the physician face to face encounter requirements with this patient as dated. Copy Copies To 1: KAITLIN SINCLAIR APRN, MD Oct 02, 2017 13:42
--- NOTE | 2017-10-02 13:43 | Short Stay Summary ---
History of Present Illness History of Present Illness Reason for visit/HPI 52yo woman with a history of paroxysmal atrial fibrillation, recent pneumonia with bilateral pleural effusion, presented to ER with a heart rate of 144. Patient was found to have the tachycardia by her home health nurse who in turn called Dr Campbell. Dr Campbell recommended she be evaluated in ER. In ER, Marti was found to be quite short of breath and to have a high white count in addition to sinus tachycardia. Dr Campbell's recommendation was to put her on a cardizem drip for rate control. Her rate did come down ot the 70s with this. Recent echo showed EF 65%. Patient states she did finish her course of antibiotics for the pneumonia. She did not have an oxygen requirement at discharge last week but is now needing O2 to keep sats above 90. Today patient tells me that Dr Campbell told her she was in a dire emergency and that her life may be shortened due to all of this. SHe is exhibiting severe anxiety including lability of mood, tearful affect, and worry. Date of Admission Oct 01, 2017 at 18:03 Date of Discharge October 02, 2017 Time Seen by Provider: 09:00 Attending Physician Kaitlin Gill MD Admitting Physician Jose Sams MD Consult Dr Shannan GREEN Allergies and Home Medications Allergies Coded Allergies: buspirone HCl (Verified Allergy, Unknown, 08/14/15) etodolac (Verified Allergy, Unknown, 08/14/15) NSAIDS (Non-Steroidal Anti-Inflamma (Verified Adverse Reaction, Unknown, 08/14/15) Neuromuscular Blockers, Steroidal (Verified Adverse Reaction, Unknown, ) gabapentin (Verified Adverse Reaction, Unknown, 08/14/15) Home Medications Albuterol Sulfate 1 Puff Puff, 2 PUFF INH QID PRN for SHORTNESS OF BREATH, ( Reported) Albuterol Sulfate 2.5 Mg/3 Ml Vial.neb, 2.5 MG NEB Q4H PRN for SHORTNESS OF BREATH, (Reported) Alprazolam 0.5 Mg Tablet, 0.5 MG PO TID PRN for ANXIETY, (Reported) Amiodarone HCl 200 Mg Tablet, 200 MG PO DAILY, (Reported) Aspirin 325 Mg Tablet.dr, 325 MG PO DAILY, (Reported) Atenolol 100 Mg Tablet, 50 MG PO BID, (Reported) TAKES 1/2 (100MG) TABLET Cetirizine HCl 10 Mg Tablet, 10 MG PO DAILY, (Reported) Cholecalciferol (Vitamin D3) 1,000 Unit Tablet, 1,000 UNIT PO BID, (Reported) Cyanocobalamin 1,000 Mcg/Ml Inj, 1,000 MCG IJ MONTHLY, (Reported) Dicyclomine HCl 20 Mg Tablet, 20 MG PO QID PRN for STOMACH UPSET, (Reported) Docusate Sodium 100 Mg Capsule, 100 MG PO BID PRN for CONSTIPATION-1ST LINE, ( Reported) Fluconazole 150 Mg Tablet, 150 MG PO DAILY for 3 Days, (Reported) 3 TABS FILLED 09-30-17 HOWEVER PATIENT STATES SHE HAS NOT STARTED TAKING THEM YET Fluticasone Propionate 16 Gm Broadalbin.susp, 1 SPRAY NSEACH BID, (Reported) Fluticasone/Salmeterol 1 Each Blst.w.dev, 1 PUFF IH BID, (Reported) Guaifenesin/Dextromethorphan 5 Ml Syrup, 10 ML PO Q6H PRN for COUGH, (Reported) Hydrocodone Bit/Acetaminophen 1 Tab Tab, 1 TAB PO Q6H PRN for PAIN-MODERATE, ( Reported) FILLED #24 09-30-17 Ibuprofen 600 Mg Tablet, 600 MG PO Q6H PRN for PAIN-MILD, (Reported) Lactobacillus Acidophilus 1 Each Capsule, 1 CAP PO DAILY, (Reported) Burlison 3 Polyunsat Fatty Acids 1,000 Mg Cap, 2,000 MG PO BID, (Reported) Omeprazole 40 Mg Capsule.dr, 40 MG PO DAILY, (Reported) Ranitidine HCl 150 Mg Tablet, 150 MG PO BID, (Reported) Simethicone 125 Mg Tab.chew, 2 TAB PO BID PRN for GAS, (Reported) Tramadol HCl 50 Mg Tablet, 50 MG PO Q6H PRN for PAIN-MODERATE, (Reported) FILLED #60 09-30-17 Past [id number] Hx Patient Social History Alcohol Use: Denies Use Recreational Drug Use: No Smoking Status: Current Everyday Smoker Type Used: Cigarettes 2nd Hand Smoke Exposure: Yes Physical Abuse Screen: No Sexual Abuse: No Recent Foreign Travel: No Contact w/other who traveled: No Recent Hopitalizations: Yes (PNEUMONIA, D/C ON 09/24/2017) Recent Infectious Disease Expo: No Immunizations Up To Date Date of Pneumonia Vaccine: Jun 07, 2016 Date of Influenza Vaccine: Jun 07, 2016 Seasonal Allergies Seasonal Allergies: Yes Surgeries Yes (HERNIA REPAIR, OVARIAN CYST REMOVAL, C/S X2, oral) Abdominal, Appendectomy, Section, Gallbladder, Hysterectomy, Oophorectomy Respiratory Yes (Tobaccoism) Currently Using CPAP: No Currently Using BIPAP: No Cardiovascular Yes (Pericardial effusion) Atrial Fibrillation, Chronic Edema/Swelling, Deep Vein Thrombosis, High Cholesterol, Hypertension Neurological Yes (PSEUDO SEIZURES ) Seizure Disorder 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 System Hx 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 Disorders: Yes Female 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, 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 Genitourinary No Gastrointestinal Yes (CHOKES EASILY) Gastroesophageal Reflux, Diverticulosis, Hiatal Hernia, Ulcer, Gall Bladder Disease, Irritable Bowel Musculoskeletal Yes (CHRONIC KNEE AND HIP PAIN, spinal stenosis) Osteoporosis, Arthritis, Chronic Back Pain Endocrine History of Endocrine Disorders: No HEENT History of HEENT Disorders: No Cancer No Psychosocial History of Psychiatric Problem: Yes Behavioral Health Disorders: Pseudo Seizures, Anxiety Integumentary History of Skin or Integumenta: Yes Skin/Integumentary Disorders: Eczema Blood Transfusions History of Blood Disorders: No Adverse Reaction to a Blood Tr: No Reviewed Nursing Assessment Reviewed/Agree w Nursing PMH: Yes Family Medical History Family Hx: FH: cirrhosis 19 MOTHER FH: liver cancer 19 MOTHER FHx: lung cancer 19 FATHER Hypertension 19 FATHER 19 MOTHER Constitutional: see HPI All Other Systems Reviewed Negative Unless Noted: Yes Physical Exam Vital Signs Vital Sign - Last 12Hours 10/01/17 10/01/17 10/01/17 15:20 18:30 23:01 Temp 98.5 Pulse 145 Resp 18 B/P (MAP) 116/78 (91) Pulse Ox 96 O2 Delivery Nasal Cannula O2 Flow Rate 1.00 FiO2 24 Capillary Refill : Less Than 3 Seconds General Appearance: No Apparent Distress, WD/WN Eyes: Bilateral Eye Normal Inspection, Bilateral Eye PERRL, Bilateral Eye EOMI HEENT: PERRL/EOMI, Normal ENT Inspection, Pharynx Normal Neck: Full Range of Motion, Normal Inspection, Non Tender, Supple, Carotid Bruit Respiratory: Chest Non Tender, Lungs Clear, Normal Breath Sounds, No Accessory Muscle Use, No Respiratory Distress Cardiovascular: Regular Rate, Rhythm, No Edema, No Gallop, No JVD, No Murmur, Normal Peripheral Pulses Gastrointestinal: Normal Bowel Sounds, No Organomegaly, No Pulsatile Mass, Non Tender, Soft Back: Normal Inspection, No CVA Tenderness, No Vertebral Tenderness Extremity: Normal Capillary Refill, Normal Inspection, Normal Range of Motion, Non Tender, No Calf Tenderness, No Pedal Edema Neurologic/Psychiatric: Alert, Oriented x3, No Motor/Sensory Deficits, Normal Mood/Affect Skin: Normal Color, Warm/Dry Lymphatic: No Adenopathy Clinical Quality Measures AMI/AHF: ASA po Prior to arrival: No DVT/VTE Risk/Contraindication: Risk Factor Score Per Nursin RFS Level Per Nursing on Admit: 4+=Very High Short Stay Diagnosis Discharge Diagnosis-Short Stay Admission Diagnosis: SINUS TACHYCARDIA PAROSYSMAL ATRIAL FIBRILLATION HYPOXEMIA DUE TO PLEURAL EFFUSION ANXIETY RELATED TO HEALTH MORBID OBESITY TOBACCO ABUSE Final Discharge Diagnosis: SEE ABOVE Conclusion Labs Laboratory Tests 10/01/17 15:00: White Blood Count 17.6H, Red Blood Count 4.26L, Hemoglobin 12.3, Hematocrit 37, Mean Corpuscular Volume 87, Mean Corpuscular Hemoglobin 29, Mean Corpuscular Hemoglobin Concent 33, Red Cell Distribution Width 14.6H, Platelet Count 561H, Mean Platelet Volume 8.6, Neutrophils (%) (Auto) 78H, Lymphocytes (%) (Auto) 14 , Monocytes (%) (Auto) 7, Eosinophils (%) (Auto) 1, Basophils (%) (Auto) 0, Neutrophils # (Auto) 13.7H, Lymphocytes # (Auto) 2.4, Monocytes # (Auto) 1.3H, Eosinophils # (Auto) 0.2, Basophils # (Auto) 0.1, Neutrophils % (Manual) 67, Lymphocytes % (Manual) 20, Monocytes % (Manual) 7, Eosinophils % (Manual) 1, Basophils % (Manual) 0, Metamyelocytes % 1, Band Neutrophils 4, Blood Morphology Comment NORMAL, Prothrombin Time 14.0, INR Comment 1.1, Activated Partial Thromboplast Time 40H, Sodium Level 140, Potassium Level 3.8, Chloride Level 102, Carbon Dioxide Level 25, Anion Gap 13, Blood Urea Nitrogen 7, Creatinine 0.78, Estimat Glomerular Filtration Rate > 60, BUN/Creatinine Ratio 9 , Glucose Level 106H, Lactic Acid Level 1.29, Calcium Level 9.2, Total Bilirubin 0.2, Aspartate Amino Transf (AST/SGOT) 36H, Alanine Aminotransferase ( ALT/SGPT) 44, Alkaline Phosphatase 102, Troponin I < 0.30, Total Protein 6.8, Albumin 3.3 10/01/17 16:37: Urine Color YELLOW, Urine Clarity SLIGHTLY CLOUDY, Urine pH 5, Urine Specific [place] 1.010L, Urine Protein 1+H, Urine Glucose (UA) NEGATIVE, Urine Ketones NEGATIVE, Urine Nitrite NEGATIVE, Urine Bilirubin NEGATIVE, Urine Urobilinogen NORMAL, Urine Leukocyte Esterase 3+H, Urine RBC (Auto) 2+H, Urine RBC 2-5H, Urine WBC 10-25H, Urine Squamous Epithelial Cells 25-50H, Urine Crystals NONE, Urine Bacteria TRACE, Urine Casts NONE, Urine Mucus NEGATIVE, Urine Culture Indicated NO 10/02/17 04:35: White Blood Count 9.8, Red Blood Count 3.83L, Hemoglobin 10.8L, Hematocrit 34L, Mean Corpuscular Volume 89, Mean Corpuscular Hemoglobin 28, Mean Corpuscular Hemoglobin Concent 32, Red Cell Distribution Width 14.7H, Platelet Count 504H, Mean Platelet Volume 8.7, Neutrophils (%) (Auto) 62, Lymphocytes (%) (Auto) 26, Monocytes (%) (Auto) 9, Eosinophils (%) (Auto) 3, Basophils (%) (Auto) 1, Neutrophils # (Auto) 6.1, Lymphocytes # (Auto) 2.5, Monocytes # (Auto) 0.9, Eosinophils # (Auto) 0.3, Basophils # (Auto) 0.1, Sodium Level 143, Potassium Level 3.9, Chloride Level 106, Carbon Dioxide Level 24, Anion Gap 13, Blood Urea Nitrogen 7, Creatinine 0.81, Estimat Glomerular Filtration Rate > 60, BUN/ Creatinine Ratio 9, Glucose Level 110H, Calcium Level 8.4L, Total Bilirubin 0.3 , Aspartate Amino Transf (AST/SGOT) 22, Alanine Aminotransferase (ALT/SGPT) 34, Alkaline Phosphatase 95, Total Protein 6.1L, Albumin 2.8L, Phosphorus Level 5.0H , Magnesium Level 1.8 Microbiology 10/01/17 Influenza Types A,B Antigen (RACHEL) - Final, Complete Conclusion/Plan Marti's heart rate came down nicely with the cardizem. She will maintain her current regimen. I did speak with her about her anxiety and that she has home health, and they are there to make sure she is doing well. For now, the single best thing she can do to achieve her health goals, including longevity, is to stop smoking. she will be on an OAC for at least 6 months due to the PAF. She continues to have the pleural effusion, but this has not worsened. She did have an oxygen requirement this time, so we will discharge her one home O2, which I also believe will give her peace of mind. SHe will follow up booker Mccormack for another CXR. If the effusion has not resolved at that time, I recommend seeing Dr Moore. I am not goign to re-treat her at this time with antibiotics in the absence of fever and a spontaneously improved WBC. She has recnetly finished Cefdinir as well. Copy Copies To 1: KAITLIN SINCLAIR APRN, MD Oct 02, 2017 1:43 pm
[2017-10-02] MEDS: NS IV 1000 ML 1,000 ML IV SCH (15:39)
== END 2017-10-02 17:06 | disposition home health service (06) | DRG 309 ==
LOC: EDUNIT# 14:53 → ER 14:55 → ICU 18:03
PROVIDERS: ADMIT Pediatrics; ATTEND Pediatrics
DX: I47.1 Supraventricular tachycardia (principal); J90 Pleural effusion, not elsewhere classified; I48.0 Paroxysmal atrial fibrillation; F41.8 Other specified anxiety disorders; F17.210 Nicotine dependence, cigarettes, uncomplicated; J45.909 Unspecified asthma, uncomplicated; J43.9 Emphysema, unspecified; G47.30 Sleep apnea, unspecified; E78.00 Pure hypercholesterolemia, unspecified; I10 Essential (primary) hypertension; G40.909 Epilepsy, unspecified, not intractable, without status epilepticus; K21.9 Gastro-esophageal reflux disease without esophagitis; K44.9 Diaphragmatic hernia without obstruction or gangrene; M81.0 Age-related osteoporosis without current pathological fracture; M19.91 Primary osteoarthritis, unspecified site; L30.9 Dermatitis, unspecified; Z86.718 Personal history of other venous thrombosis and embolism
CPT/HCPCS: 36415; 71045; 71046; 80053; 81000; 83605; 83735; 84100; 84484; 85007; 85025; 85027; 85610; 85730; 87040; 87070; 87081; 87205; 87804; 93005; 93306; 94640; 94761; 96374; 96375

== ENCOUNTER 2017-10-15 03:27 | Emergency (ER) | payer MEDICAID ==
[~2017-10-15] VITALS: Ht 172.7 cm; Wt 82.6 kg
[~2017-10-15 03:27] MED LIST changes: +FLUC150T2 PO
--- OUTSIDE RECORDS SUMMARY | 2017-10-15 03:33 | XMS REPORT | Continuity of Care Document ---
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
--- OUTSIDE RECORDS SUMMARY | 2017-10-15 03:40 | XMS REPORT | Continuity of Care Document ---
Author Author [facility] Address Unknown Phone Unavailable Allergies Active [...] Allergy N/A N/A 02/03/2013 Yes buspirone HCl [id number] Drug Allergy Unknown N/A 08/14/2015 Yes etodolac [id number] Drug Allergy Unknown N/A 08/14/2015 Yes gabapentin [id number] Drug Allergy Unknown N/A 08/14/2015 Yes Neuromuscular Blockers, Steroidal [id number] Drug Allergy Unknown N/A 08/14 Yes NSAIDS (Non-Steroidal Anti-Inflamma [id number] Drug Allergy Unknown N/A Medications There is [...] JOHNSON APRN 112.1 Candidiasis Vaginal 09/05/2009 BRETT JOHNOSN APRN 300.00 ANXIETY UNSPEC 09/05/2009 ALVARADO DO, [...] CAROLYN K 272.4 HYPERLIPIDEMIA 11/08/2010 ALVARADO DO, ACROLYN K 338.4 CHRONIC PAIN SYNDROME 11/08/2010 ALVARADO [...] 780.79 OTHER MALAISE AND FATIGUE 12/18/2010 BRETT JHONSON APRN 780.79 OTHER MALAISE AND FATIGUE 12/18/2010 [...] 01/11/2011 401.1 HYPERTENSION, BENIGN ESSENTIAL 01/11/2011 BRETT JOHNSNO APRN 401.1 HYPERTENSION, BENIGN ESSENTIAL 01/11/2011 BRETT [...] Special Screening For Malignant Neoplasms Colon 07/09/2011 RBETT JOHNSON APRN 535.50 Gastritis Unspec 07/09/2011 BRETT [...] SCHNEIDER BRETT Conti 251.2 HYPOGLYCEMIA 10/26/2013 ELIZABETH COMM[employer] RESOURCE CONSULTANT, BRETT T V04.81 FLU SHOT 10/26/2013 ALVARADO [...] LOCALIZED EDEMA 07/18/2015 LISE RAVI Ot Z79.82 CREDIT ASSOCIATE (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 07/18/2015 LISE RAVI [...] STANLEY Soto Ot V72.84 11/14/2015 BRETT JOHNSON MANAGER OF FINANCIAL PLANNING Ot 789.00 11/14/2015 BRETT JOHNSON MANAGER OF FINANCIAL PLANNING Ot 789.01 07/05/2016 EREN MCDONALD APRN Ot F17.210 NICOTINE DEPENDENCE, CIGARETTES, UNCOMPL 07/05/2016 EREN MCDONALD APRN Ot I10 ESSENTIAL (PRIMARY) HYPERTENSION 07/05/2016 EREN MCDONALD COMMUNITY RESOURCE CONSULTANT Ot J44.1 CHRONIC OBSTRUCTIVE PULMONARY DISEASE W 07/05/2016 EREN MCDONALD COMMUNITY RESOURCE CONSULTANT Ot R06.2 WHEEZING 07/05/2016 EREN MCDONALD APRN Ot Z79.82 CREDIT ASSOCIATE (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 07/05/2016 EREN MCDONALD COMMUNITY RESOURCE CONSULTANT Ot Z79.899 OTHER USP (CURRENT) DRUG THERAPY 07/06/2016 EREN MCDONALD COMMUNITY RESOURCE CONSULTANT Ot F17.210 NICOTINE DEPENDENCE, CIGARETTES, UNCOMPL 07/06/2016 EREN MCDONALD COMMUNITY RESOURCE CONSULTANT Ot I10 ESSENTIAL (PRIMARY) HYPERTENSION 07/06/2016 EREN MCDONALD COMMUNITY RESOURCE CONSULTANT Ot J44.1 CHRONIC OBSTRUCTIVE PULMONARY DISEASE W 07/06/2016 EREN MCDONALD COMMUNITY RESOURCE CONSULTANT Ot R06.2 WHEEZING 07/06/2016 EREN MCDONALD APRN Ot Z79.82 USP (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 07/06/2016 EREN MCDONALD COMMUNITY RESOURCE CONSULTANT Ot Z79.899 OTHER CREDIT ASSOCIATE (CURRENT) DRUG THERAPY 08/15/2016 LE GREEN, STANLEY [...] ABDOMINAL PAIN, UNSPECIFIED SITE 08/20/2016 BRETT JOHNSON MANAGER OF FINANCIAL PLANNING Ot 789.01 ABDOMINAL PAIN, RIGHT UPPER QUADRANT 08/20/2016 VEDA TOTH MD ([facility]) Ot Z02.71 ENCOUNTER FOR DISABILITY [...] V72.84 EXAM PRE-OPERATIVE NOS 11/06/2016 BRETT JOHNSON MANAGER OF FINANCIAL PLANNING Ot 789.00 ABDOMINAL PAIN, UNSPECIFIED SITE 11/06/2016 BRETT JOHNSON MANAGER OF FINANCIAL PLANNING Ot 789.01 ABDOMINAL PAIN, RIGHT UPPER QUADRANT 11/06/2016 VEDA TOTH MD ([facility]) Ot Z02.71 ENCOUNTER FOR DISABILITY DETERMINATION 11/08/2016 BRETT JOHNSON MANAGER OF FINANCIAL PLANNING Ot R13.11 DYSPHAGIA, ORAL PHASE 11/23/2016 BRETT JOHNSON MANAGER OF FINANCIAL PLANNING Ot R13.11 DYSPHAGIA, ORAL PHASE 08/11/2017 CELESTE [...] DISTRESS 08/29/2017 KRYSTIN WRIGHT MD, Ot Z79.82 CREDIT ASSOCIATE (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 08/29/2017 KRYSTIN WRIGHT [...] UPPER QUADRANT 09/07/2017 JANEY GREEN, VEDA Marroquin ([facility]) Ot Z02.71 ENCOUNTER FOR DISABILITY DETERMINATION 09/07/2017 BRETT JOHNSON Ot R13.11 DYSPHAGIA, ORAL PHASE 09/07/2017 HEBERT LAZO MD Ot R07.9 CHEST PAIN, UNSPECIFIED 09/07/2017 HEBERT LAZO MD Ot I31.3 PERICARDIAL EFFUSION (NONINFLAMMATORY) 09/07/2017 CHRISTYSURI Sepulveda MANAGER OF FINANCIAL PLANNING Ot F41.9 ANXIETY DISORDER, UNSPECIFIED 09/07/2017 CHRISTYSURI Sepulveda MANAGER OF FINANCIAL PLANNING Ot G47.9 SLEEP DISORDER, UNSPECIFIED 09/07/2017 CHRISTYSURI Sepulveda MANAGER OF FINANCIAL PLANNING Ot J44.9 CHRONIC OBSTRUCTIVE PULMONARY DISEASE, U 09/07/2017 CHRISTYSURI Sepulveda MANAGER OF FINANCIAL PLANNING Ot K21.9 GASTRO-ESOPHAGEAL REFLUX DISEASE WITHOUT 09/07/2017 CHRISTYSURI SepulvedaP Ot R05 COUGH 09/07/2017 CHRISTYSURI Sepulveda MANAGER OF FINANCIAL PLANNING Ot R53.83 OTHER FATIGUE 09/07/2017 CHRISTY, SURI MANAGER OF FINANCIAL PLANNING Ot Z86.711 PERSONAL HISTORY OF PULMONARY EMBOLISM 09/07/2017 CHRISTYSURI Sepulveda MANAGER OF FINANCIAL PLANNING Ot Z87.01 PERSONAL HISTORY OF PNEUMONIA (RECURRENT 09/07/2017 CHRISTYSURI Sepulveda MANAGER OF FINANCIAL PLANNING Ot Z87.19 PERSONAL HISTORY OF OTHER DISEASES OF TH 09/07/2017 CHRISTYSURI Sepulveda MANAGER OF FINANCIAL PLANNING Ot Z90.49 ACQUIRED ABSENCE OF OTHER SPECIFIED PART 09/07/2017 SURI HARRISON MANAGER OF FINANCIAL PLANNING Ot Z90.710 ACQUIRED ABSENCE OF BOTH CERVIX AND UTER 09/07/2017 CHRISTY SURI MANAGER OF FINANCIAL PLANNING Ot Z98.51 TUBAL LIGATION STATUS 09/09/2017 CELESTE [...] MD Ot R07.9 CHEST PAIN, UNSPECIFIED 09/24/2017 BARCARINAJOAN Sepulveda DO Ot F17.210 NICOTINE DEPENDENCE, CIGARETTES, UNCOMPL 09/24/2017 JOAN BELTRAN DO Ot F32.9 MAJOR DEPRESSIVE DISORDER, SINGLE EPISOD 09/24/2017 SIMBARAMYAJOAN Sepulveda DO Ot F41.9 ANXIETY DISORDER, UNSPECIFIED 09/24/2017 BARCARINAJOAN Sepulveda DO Ot G89.29 OTHER CHRONIC PAIN 09/24/2017 BARALEXANDROJOAN GARCIA DO Ot I10 ESSENTIAL (PRIMARY) HYPERTENSION 09/24/2017 DEVIN DOJOAN Ot I31.3 PERICARDIAL EFFUSION (NONINFLAMMATORY) 09/24/2017 JOAN [...] DO Ot M15.0 PRIMARY GENERALIZED (OSTEO)ARTHRITIS 09/24/2017 ROSLYNCARINAJOAN Sepulveda DO Ot R56.9 UNSPECIFIED CONVULSIONS 09/24/2017 SIMBARAMYAJOAN Sepulveda DO Ot Z86.718 PERSONAL HISTORY OF OTHER VENOUS THROMBO 09/24/2017 HEBERT LAZO MD Ot I31.3 PERICARDIAL EFFUSION (NONINFLAMMATORY) 09/27/2017 SHAI ALVAREZ MD Ot E78.00 PURE HYPERCHOLESTEROLEMIA, UNSPECIFIED 09/27/2017 SHAI ALVAREZ MD Ot F17.210 NICOTINE DEPENDENCE, CIGARETTES, UNCOMPL 09/27/2017 SHAI ALVAREZ MD Ot F41.9 ANXIETY DISORDER, UNSPECIFIED 09/27/2017 SHAI ALVAREZ MD Ot G40.909 EPILEPSY, UNSP, NOT INTRACTABLE, WITHOUT 09/27/2017 SHAI ALVAREZ MD Ot G47.30 SLEEP APNEA, UNSPECIFIED 09/27/2017 SHAI ALVAREZ MD Ot I10 ESSENTIAL (PRIMARY) HYPERTENSION 09/27/2017 SHAI ALVAREZ MD Ot I48.91 UNSPECIFIED ATRIAL FIBRILLATION 09/27/2017 SHAI ALVAREZ MD Ot J43.9 EMPHYSEMA, UNSPECIFIED 09/27/2017 SHAI ALVAREZ MD Ot K21.9 GASTRO-ESOPHAGEAL REFLUX DISEASE WITHOUT 09/27/2017 SHAI ALVAREZ MD Ot M81.0 AGE-RELATED OSTEOPOROSIS W/O CURRENT PAT 09/27/2017 SHAI ALVAREZ MD Ot R07.89 OTHER CHEST PAIN 09/27/2017 SHAI ALVAREZ MD Ot Z79.82 CREDIT ASSOCIATE (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 09/27/2017 SHAI ALVAREZ MD Ot Z80.0 FAMILY HISTORY OF MALIGNANT NEOPLASM OF 09/27/2017 SHAI ALVAREZ MD Ot Z80.1 FAMILY HISTORY OF MALIG NEOPLASM OF TRAC 09/27/2017 SHAI ALVAREZ MD Ot Z86.718 PERSONAL HISTORY OF OTHER VENOUS THROMBO 09/27/2017 SHAI ALVAREZ MD Ot Z87.01 PERSONAL HISTORY OF PNEUMONIA (RECURRENT 09/27/2017 SHAI ALVAREZ MD Ot Z87.19 PERSONAL HISTORY OF OTHER DISEASES OF TH 09/27/2017 SHAI ALVAREZ MD Ot Z87.59 PERSONAL HISTORY OF COMP OF PREG, CHLDBR 09/27/2017 SHAI ALVAREZ MD Ot Z90.710 ACQUIRED ABSENCE OF BOTH CERVIX AND UTER 09/27/2017 SHAI ALVAREZ MD Ot Z98.1 ARTHRODESIS STATUS 10/02/2017 KAITLIN GUERRERO MD Ot E78.00 PURE HYPERCHOLESTEROLEMIA, UNSPECIFIED 10/02/2017 KAITLIN GUERRERO MD Ot F17.210 NICOTINE DEPENDENCE, CIGARETTES, UNCOMPL 10/02/2017 KAITLIN GUERRERO MD Ot F41.9 ANXIETY DISORDER, UNSPECIFIED 10/02/2017 KAITLIN GUERRERO MD Ot G40.909 EPILEPSY, UNSP, NOT INTRACTABLE, WITHOUT 10/02/2017 KAITLIN GUERRERO MD Ot G47.30 SLEEP APNEA, UNSPECIFIED 10/02/2017 KAITLIN GUERRERO MD, Ot I10 ESSENTIAL (PRIMARY) HYPERTENSION 10/02/2017 KAITLIN GUERRERO MD Ot I47.1 SUPRAVENTRICULAR TACHYCARDIA 10/02/2017 KAITLIN GUERRERO MD, Ot J18.9 PNEUMONIA, UNSPECIFIED ORGANISM 10/02/2017 KAITLIN GUERRERO MD Ot J43.9 EMPHYSEMA, UNSPECIFIED 10/02/2017 KAITLIN GUERRERO MD, Ot J45.909 UNSPECIFIED ASTHMA, UNCOMPLICATED 10/02/2017 KAITLIN GUERRERO MD, Ot J90 PLEURAL EFFUSION, NOT ELSEWHERE CLASSIFI 10/02/2017 KAITLIN GUERRERO MD, Ot K21.9 GASTRO-ESOPHAGEAL REFLUX DISEASE WITHOUT 10/02/2017 KAITLIN GUERRERO MD Ot K44.9 DIAPHRAGMATIC HERNIA WITHOUT OBSTRUCTION 10/02/2017 KAITLIN GUERRERO MD, Ot L30.9 DERMATITIS, UNSPECIFIED 10/02/2017 KAITLIN GUERRERO MD Ot M19.91 PRIMARY OSTEOARTHRITIS, UNSPECIFIED SITE 10/02/2017 KAITLIN GUERRERO MD Ot M81.0 AGE-RELATED OSTEOPOROSIS W/O CURRENT PAT 10/02/2017 KAITLIN GUERRERO MD Ot Z86.718 PERSONAL HISTORY OF OTHER VENOUS THROMBO 10/02/2017 KAITLIN GUERRERO MD Ot E78.00 PURE HYPERCHOLESTEROLEMIA, UNSPECIFIED 10/02/2017 KAITLIN GUERRERO MD Ot F17.210 NICOTINE DEPENDENCE, CIGARETTES, UNCOMPL 10/02/2017 KAITLIN GUERRERO MD Ot F41.8 OTHER SPECIFIED ANXIETY DISORDERS 10/02/2017 KAITLIN GUERRERO MD Ot G40.909 EPILEPSY, UNSP, NOT INTRACTABLE, WITHOUT 10/02/2017 KAITLIN GUERRERO MD Ot G47.30 SLEEP APNEA, UNSPECIFIED 10/02/2017 KAITLIN GUERRERO MD, Ot I10 ESSENTIAL (PRIMARY) HYPERTENSION 10/02/2017 KAITLIN GUERRERO MD Ot I47.1 SUPRAVENTRICULAR TACHYCARDIA 10/02/2017 KAITLIN GUERRERO MD Ot I48.0 PAROXYSMAL ATRIAL FIBRILLATION 10/02/2017 KAITLIN GUERRERO MD Ot J43.9 EMPHYSEMA, UNSPECIFIED 10/02/2017 KAITLIN GUERRERO MD, Ot J45.909 UNSPECIFIED ASTHMA, UNCOMPLICATED 10/02/2017 KAITLIN GUERRERO MD, Ot J90 PLEURAL EFFUSION, NOT ELSEWHERE CLASSIFI 10/02/2017 KAITLIN GUERRERO MD, Ot K21.9 GASTRO-ESOPHAGEAL REFLUX DISEASE WITHOUT 10/02/2017 KAITLIN GUERRERO MD, Ot K44.9 DIAPHRAGMATIC HERNIA WITHOUT OBSTRUCTION 10/02/2017 KAITLIN GUERRERO MD, Ot L30.9 DERMATITIS, UNSPECIFIED 10/02/2017 KAITLIN GUERRERO MD, Ot M19.91 PRIMARY OSTEOARTHRITIS, UNSPECIFIED SITE 10/02/2017 KAITLIN GUERRERO MD Ot M81.0 AGE-RELATED OSTEOPOROSIS W/O CURRENT PAT 10/02/2017 KAITLIN GUERRERO MD Ot Z86.718 PERSONAL HISTORY OF OTHER VENOUS THROMBO Procedures Code [place] [address] INDIV PSYTX 45/50 MIN 08/21/2012 85552 ROUTINE VENIPUNCTURE 08/22/2012 42676 MRI BRAIN W/CONTRAST 08/22/2012 91414 MRI BRAIN W/CONTRAST 08/22/2012 21251 MRI BRAIN W/O & W/DYE 08/22/2012 66902 CBC 08/22/2012 40482 CMP 08/22/2012 12424 LIPID PANEL 08/22/2012 8224900 GFR CALC (RESULT ONLY) 08/22/2012 88567 VIT B 12 08/23/2012 23016 ROUTINE VENIPUNCTURE 01/07/2013 27631 CBC 01/07/2013 96933 CMP 01/07/2013 08807 LIPID PANEL 01/07/2013 9785248 GFR CALC (RESULT ONLY) 01/07/2013 19611 TSH 01/08/2013 74141 VIT B 12 01/08/2013 40017 VITAMIN D 25-HYDROXY (D2,D3 , TOTAL) 01/08/2013 85319 THERAPUTIC INJ SQ/IM 02/03/2013 J3420 B12 VITAMIN INJECTION 02/03/2013 04822 A1C (IN-HOUSE) 02/03/2013 General S [place] 02/03/2013 Podiatry Edith Sandoval 02/03/2013 60715 THERAPUTIC INJ SQ/IM 03/24/2013 J3420 B12 VITAMIN INJECTION 03/24/[address] ABDOMEN & PELVIS W/O CONTRAST 03/25/2013 74660 THERAPUTIC INJ SQ/IM 06/23/2013 J3420 B12 VITAMIN INJECTION 06/23/2013 82956 THERAPUTIC INJ SQ/IM 10/26/2013 J3420 B12 VITAMIN INJECTION 10/26/2013 63791 THERAPUTIC INJ SQ/IM 03/31/2014 J3420 B12 VITAMIN INJECTION 03/31/2014 46120 XRAY HIPS BILATERAL 03/31/2014 63075 ROUTINE VENIPUNCTURE 04/01/2014 82061 CBC 04/01/2014 6006148 GFR CALC (RESULT ONLY) 04/01/2014 17934 CMP 04/01/2014 73513 LIPID PANEL 04/01/2014 53032 TSH 04/01/2014 48956 ROUTINE VENIPUNCTURE 10/08/2014 16802 VIT B 12 10/08/2014 45731 PSYCH DIAGNOSTIC EVALUATION 10/08/2014 J3420 B12 VITAMIN INJECTION 10/12/2014 28222 THERAPUTIC INJ SQ/IM 10/12/2014 57355 THERAPUTIC INJ SQ/IM 01/12/2015 J3420 B12 VITAMIN INJECTION 01/12/2015 8K3P0EJ DRAINAGE OF LEFT PLEURAL CAVITY, PERC AP [...] GROWTH Moderate Growth NRG Bacterial sputum culture [id number] NRG Complete blood count (CBC) with automated [...] i.cardiac measurement (mass/volume) < ng/ mL <0.30 Bacterial blood culture - 10/01/17 15:00 Bacterial blood culture NG NRG Bacterial blood culture - 10/01/17 15:45 Bacterial blood culture NG NRG Complete urinalysis with reflex to culture [...] A AND B ANTIGENS BY IA NRG Methicillin resistant Staphylococcus aureus (MRSA) screening culture - 19:05 Methicillin resistant Staphylococcus aureus (MRSA) screening culture NEG NRG Sputum Gram stain - 10/01/17 19:45 Sputum Gram stain Few WBC's, and mixed bacterial priya NR Bacterial sputum culture - 10/01/17 19:45 Bacterial sputum culture [facility] Complete blood count (CBC) with automated white [...] Status Pt. Type Provider Facility Loc./Unit Complaint [id number] 01/12/2015 09:42:00 01/12/2015 23:59:59 CLS Outpatient CAROLYN ALVARADO DO [id number] 10/12/2014 16:34:00 10/12/2014 23:59:59 CLS Outpatient BRETT JOHNSON APRN [id number] 10/08/2014 09:10:00 10/08/2014 23:59:59 CLS Outpatient BRETT JOHNSON APRN [id number] 04/01/2014 08:55:00 04/01/2014 23:59:59 CLS Outpatient CAROLYN ALVARADO DO [id number] 03/31/2014 12:32:00 03/31/2014 23:59:59 CLS Outpatient BRETT JOHNSON APRN [id number] 02/10/2014 00:00:00 02/10/2014 23:59:59 CLS Outpatient BRETT JOHNSON APRN [id number] 10/26/2013 15:08:00 10/26/2013 23:59:59 CLS Outpatient BRETT JOHNSON APRN [id number] 06/23/2013 16:28:00 06/23/2013 23:59:59 CLS Outpatient BRETT JOHNSON APRN [id number] 08/22/2012 11:08:00 08/22/2012 23:59:59 CLS Outpatient BRETT JOHNSON APRN [id number] 05/27/2012 15:00:00 05/27/2012 23:59:59 CLS Outpatient BRETT JOHNSON APRN [id number] 03/24/2013 16:33:00 Document Registration [id number] 03/24/2013 16:33:00 Document Registration [id number] 03/09/2013 13:37:00 Document Registration [id number] 02/03/2013 15:10:00 Document Registration [id number] 02/03/2013 15:10:00 Document Registration [id number] 01/27/2013 13:19:00 Document Registration [id number] 01/07/2013 10:11:00 Document Registration [id number] 01/02/2013 11:06:00 Document Registration [id number] 10/01/2017 18:25:00 10/02/2017 17:06:00 DIS Inpatient KAITLIN GUERRERO MD Via [facility] ICU ATRIAL TACHYCARDIA,LEFT PLEURAL EFFUSION,LLL PNA [id number] 09/26/2017 22:53:00 09/27/2017 00:52:00 DIS Emergency SHAI ALVAREZ MD Via [facility] ER LOW BLOOD PRESSURE [id number] 09/21/2017 10:35:00 09/24/2017 13:00:00 DIS Inpatient DEVIN IRWIN JOAN E Via [facility] 4TH BILAT PNA,PLEURAL EFFUSION BILATERAL [id number] 09/09/2017 09:59:00 09/09/2017 12:23:00 DIS Emergency NENA ALONSO MD Via [facility] ER PAIN AFTER SURGERY [id number] 09/07/2017 12:15:00 09/07/2017 13:38:00 DIS Emergency SURI HARRISON Via [facility] ER FEELS LOW ON O2 [id number] 09/02/2017 10:37:00 09/02/2017 23:59:59 CLS Preadmit KHALIDA PERERA Derick MICHELLEN Via [facility] RT J45.909 ASTHMA [id number] 09/02/2017 10:32:00 09/02/2017 23:59:59 CLS Outpatient HEBERT LAZO MD Via [facility] CARD PERICARDIAL EFFUSION I31.3 [id number] 08/30/2017 07:14:00 08/30/2017 23:59:59 CLS Outpatient HEBERT LAZO MD Via [facility] CARD R07.9 [id number] 08/28/2017 23:07:00 08/29/2017 15:55:00 DIS Inpatient KRYSTIN WRIGHT MD Via [facility] ICU CHEST PAIN,PERICARDIAL EFFUSIAN [id number] 08/11/2017 07:09:00 08/11/2017 10:08:00 DIS Emergency NENA ALONSO MD Via [facility] ER CHEST, BACK, SIDE PAIN [id number] 11/07/2016 09:55:00 11/07/2016 23:59:59 CLS Outpatient BRETT JOHNSON Via [facility] RAD ORAL PHASE DYSPHAGIA [id number] 08/20/2016 08:10:00 08/20/2016 12:00:00 DIS Outpatient STANLEY MONTANA MD Via [facility] SDC ABNORMAL BOWEL MOVEMENT; GERD [id number] 08/15/2016 05:38:00 08/15/2016 11:23:00 DIS Outpatient STANLEY MONTANA MD Via [facility] PREOP ABNORMAL BOWEL MOVEMENT;GERD [id number] 07/05/2016 15:54:00 07/05/2016 17:14:00 DIS Emergency EREN MCDONALD APRN Via [facility] ER FLU LIKE SYMPTOMS [id number] 11/14/2015 10:15:00 11/14/2015 23:59:59 CLS Outpatient VEDA TOTH MD (DDU) Via [facility] RAD DDU [id number] 11/08/2015 01:37:00 11/08/2015 03:11:00 DIS Emergency NENA ALONSO MD Via [facility] ER HIGH BLOOD PRESSURE [id number] 08/14/2015 18:30:00 08/14/2015 22:14:00 DIS Emergency JACQUELINE JIMENEZ DO Via [facility] ER RIGHT SIDE PAIN [id number] 07/18/2015 12:39:00 07/18/2015 15:25:00 DIS Emergency LISE RAVI [facility] ER FEET/LEGS SWELLING/ PAIN [id number] 04/02/2013 11:06:00 04/02/2013 23:59:59 CLS Outpatient BRETT JOHNSON Via [facility] RAD MASS FOUND IN CT [id number] 03/30/2013 13:03:00 03/30/2013 23:59:59 CLS Outpatient BRETT JOHNSON Via [facility] RAD UPPER QUAD PAIN [id number] 03/16/2013 11:00:00 03/16/2013 13:55:00 DIS Outpatient STANLEY MONTANA MD Via [facility] SDC DYSPHAGIA [id number] 03/12/2013 07:13:00 03/12/2013 23:59:59 CLS Outpatient STANLEY MONTANA MD Via [facility] PREOP DYSPHAGIA [id number] 07/18/2015 12:39:00 Document Registration [id number] 12/24/2012 09:46:00 Document Registration [id number] 09/02/2012 08:09:00 Document Registration [id number] 05/21/2012 16:23:00 Document Registration [id number] 04/29/2012 14:12:00 Document Registration [id number] 09/18/2011 10:00:00 Document Registration [id number] 09/01/2011 19:39:00 Document Registration [id number] 07/20/2011 07:06:00 Document Registration [id number] 06/25/2011 09:07:00 Document Registration
[2017-10-15 03:49] LABS: BASOPHILS % (AUTO) 0 % (0-10); EOSINOPHILS # (AUTO) 0.1 10^3/uL (0.0-0.3); EOSINOPHILS % (AUTO) 1 % (0-10); HEMATOCRIT 38 % (35-52); HEMOGLOBIN 12.2 G/DL (11.5-16.0); LYMPHOCYTES # (AUTO) 2.3 X 10^3 (1.0-4.0); LYMPHOCYTES % (AUTO) 22 % (12-44); MEAN CORPUSCULAR HEMOGLOBIN 28 PG (25-34); MEAN CORPUSCULAR HGB CONC 32 G/DL (32-36); MEAN CORPUSCULAR VOLUME 85 FL (80-99); MONOCYTES # (AUTO) 1.2 X 10^3 (0.0-1.0); MONOCYTES % (AUTO) 12 % (0-12); NEUTROPHILS # (AUTO) 6.7 X 10^3 (1.8-7.8); NEUTROPHILS % (AUTO) 65 % (42-75); PLATELET COUNT 375 10^3/uL (130-400); RED BLOOD COUNT 4.42 10^6/uL (4.35-5.85); RED CELL DISTRIBUTION WIDTH 14.8 % (10.0-14.5); WHITE BLOOD COUNT 10.2 10^3/uL (4.3-11.0)
[2017-10-15 04:00] LABS: INR 1.1 (0.8-1.4); PROTHROMBIN TIME PATIENT 14.5 SEC (12.2-14.7)
[2017-10-15 04:07] LABS: ALANINE AMINOTRANSFERASE 15 U/L (0-55); ALBUMIN 3.4 GM/DL (3.2-4.5); ALKALINE PHOSPHATASE 140 U/L (40-136); BILIRUBIN,TOTAL 0.6 MG/DL (0.1-1.0); BUN/CREATININE RATIO 8; CALCIUM 9.2 MG/DL (8.5-10.1); CARBON DIOXIDE 25 MMOL/L (21-32); CHLORIDE 98 MMOL/L (98-107); CREATININE SERUM 0.84 MG/DL (0.60-1.30); GFR ESTIMATED > 60; GLUCOSE 127 MG/DL (70-105); SODIUM 136 MMOL/L (135-145); TOTAL PROTEIN 7.5 GM/DL (6.4-8.2)
[2017-10-15 04:19] VITALS: BP 110/71
[2017-10-15 04:27] LABS: BILIRUBIN,URINE NEGATIVE (NEGATIVE); CLARITY,URINE SLIGHTLY CLOUDY; COLOR,URINE YELLOW; GLUCOSE, URINE (UA) NEGATIVE (NEGATIVE); KETONES,URINE NEGATIVE (NEGATIVE); LEUKOCYTE ESTERASE ,URINE 2+ (NEGATIVE); NITRITE,URINE NEGATIVE (NEGATIVE); PH,URINE 6 (5-9); PROTEIN,URINE 2+ (NEGATIVE); UROBILINOGEN,URINE 1 MG/DL (NORMAL)
[2017-10-15 04:34] LABS: BACTERIA,URINE FEW /HPF; RBC,URINE 0-2 /HPF; SQUAMOUS EPITHELIAL CELL,UR TNTC /HPF
[2017-10-15] MEDS ORDERED: DEXAMETHASONE 10 MG/ML (DECADRON) 1 ML VIAL IV ONE (04:45)
--- NOTE | 2017-10-15 04:46 | ED Respiratory ---
General Chief Complaint: Respiratory Problems Stated Complaint: SOA Nursing Triage Note: SOA Source: patient, EMS Exam Limitations: no limitations History of Present Illness Date Seen by Provider: Oct 15, 2017 Time Seen by Provider: 03:30 Initial Comments Here with report of cough and congestion tonight as well as left-sided chest discomfort like when her pleural effusion was quite large previously. Apparently had an O2 sat 90 percent when EMS picked her up. They did give DuoNeb in route. She has been coughing and has had the discomfort for several hours. Ultimately she decided to come to the ER for evaluation. States has felt sick recently. Mild fever noted. Wheezing much improved after DuoNeb initiated by EMS. Timing/Duration: yesterday, getting worse Severity: moderate Prior Episodes/Possible Cause: frequent episodes Modifying Factors: Worse With Activity, Improves With Albuterol Nebulizer Associated Symptoms: cough, fever/chills, nasal congestion, nasal drainage, shortness of breath, wheezing Allergies and Home Medications Allergies Coded Allergies: buspirone HCl (Verified Allergy, Unknown, 08/14/15) etodolac (Verified Allergy, Unknown, 08/14/15) NSAIDS (Non-Steroidal Anti-Inflamma (Verified Adverse Reaction, Unknown, 08/14/15) Neuromuscular Blockers, Steroidal (Verified Adverse Reaction, Unknown, ) gabapentin (Verified Adverse Reaction, Unknown, 08/14/15) Home Medications Albuterol Sulfate 1 Puff Puff, 2 PUFF INH QID PRN for SHORTNESS OF BREATH, ( Reported) Albuterol Sulfate 2.5 Mg/3 Ml Vial.neb, 2.5 MG NEB Q4H PRN for SHORTNESS OF BREATH, (Reported) Alprazolam 0.5 Mg Tablet, 0.5 MG PO TID PRN for ANXIETY, (Reported) Amiodarone HCl 200 Mg Tablet, 200 MG PO DAILY, (Reported) Aspirin 325 Mg Tablet.dr, 325 MG PO DAILY, (Reported) Atenolol 100 Mg Tablet, 50 MG PO BID, (Reported) TAKES 1/2 (100MG) TABLET Cetirizine HCl 10 Mg Tablet, 10 MG PO DAILY, (Reported) Cholecalciferol (Vitamin D3) 1,000 Unit Tablet, 1,000 UNIT PO BID, (Reported) Cyanocobalamin 1,000 Mcg/Ml Inj, 1,000 MCG IJ MONTHLY, (Reported) Dicyclomine HCl 20 Mg Tablet, 20 MG PO QID PRN for STOMACH UPSET, (Reported) Docusate Sodium 100 Mg Capsule, 100 MG PO BID PRN for CONSTIPATION-1ST LINE, ( Reported) Fluconazole 150 Mg Tablet, 150 MG PO DAILY for 3 Days, (Reported) 3 TABS FILLED 09-30-17 HOWEVER PATIENT STATES SHE HAS NOT STARTED TAKING THEM YET Fluticasone Propionate 16 Gm Berthold.susp, 1 SPRAY NSEACH BID, (Reported) Fluticasone/Salmeterol 1 Each Blst.w.dev, 1 PUFF IH BID, (Reported) Guaifenesin/Dextromethorphan 5 Ml Syrup, 10 ML PO Q6H PRN for COUGH, (Reported) Hydrocodone Bit/Acetaminophen 1 Tab Tab, 1 TAB PO Q6H PRN for PAIN-MODERATE, ( Reported) FILLED #24 09-30-17 Ibuprofen 600 Mg Tablet, 600 MG PO Q6H PRN for PAIN-MILD, (Reported) Lactobacillus Acidophilus 1 Each Capsule, 1 CAP PO DAILY, (Reported) [place]inside 3 Polyunsat Fatty Acids 1,000 Mg Cap, 2,000 MG PO BID, (Reported) Omeprazole 40 Mg Capsule.dr, 40 MG PO DAILY, (Reported) Ranitidine HCl 150 Mg Tablet, 150 MG PO BID, (Reported) Simethicone 125 Mg Tab.chew, 2 TAB PO BID PRN for GAS, (Reported) Tramadol HCl 50 Mg Tablet, 50 MG PO Q6H PRN for PAIN-MODERATE, (Reported) FILLED #60 09-30-17 Constitutional: see HPI, No chills, No fever EENTM: nose congestion, No throat pain Respiratory: cough, short of breath, wheezing Cardiovascular: no symptoms reported Gastrointestinal: no symptoms reported Genitourinary: no symptoms reported Musculoskeletal: no symptoms reported Skin: no symptoms reported Psychiatric/Neurological: Anxiety, Denies Headache All Other Systems Reviewed Negative Unless Noted: Yes Past Gxkyoyc-Tlvlyi-Bfnyyb Hx Patient Social History Alcohol Use: Denies Use Recreational Drug Use: No Smoking Status: Current Everyday Smoker Type Used: Cigarettes 2nd Hand Smoke Exposure: Yes Recent Foreign Travel: No Contact w/Someone Who Travel: No Recent Infectious Disease Expo: No Recent Hopitalizations: Yes Immunizations Up To Date Tetanus Booster (TDap): Unknown Date of Pneumonia Vaccine: Jun 07, 2016 Date of Influenza Vaccine: Jun 07, 2016 Seasonal Allergies Seasonal Allergies: Yes Surgeries History of Surgeries: Yes (HERNIA REPAIR, OVARIAN CYST REMOVAL, C/S X2, oral) Surgeries: Abdominal, Appendectomy, Section, Gallbladder, Hysterectomy , Oophorectomy Respiratory History of Respiratory Disorde: Yes (Tobaccoism) Respiratory Disorders: Asthma, Pneumonia, Pulmonary Embolism, Sleep Apnea, COPD , Emphysema Currently Using CPAP: No Currently Using BIPAP: No Cardiovascular History of Cardiac Disorders: Yes (Pericardial effusion) Cardiac Disorders: Atrial Fibrillation, Chronic Edema/Swelling, Deep Vein Thrombosis, High Cholesterol, Hypertension Neurological History of Neurological Disord: Yes (PSEUDO SEIZURES ) Neurological Disorders: Seizure Disorder 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 System : No Hx 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 Disorders: Yes 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, 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 Genitourinary History of Genitourinary Disor: No Gastrointestinal History of Gastrointestinal Di: Yes (CHOKES EASILY) Gastrointestinal Disorders: Gastroesophageal Reflux, Diverticulosis, Hiatal Hernia, Ulcer, Gall Bladder Disease, Irritable Bowel Musculoskeletal History of Musculoskeletal Dis: Yes (CHRONIC KNEE AND HIP PAIN, spinal stenosis ) Musculoskeletal Disorders: Osteoporosis, Arthritis, Chronic Back Pain Endocrine History of Endocrine Disorders: No HEENT History of HEENT Disorders: No Cancer History of Cancer: No Psychosocial History of Psychiatric Problem: Yes Behavioral Health Disorders: Pseudo Seizures, Anxiety Integumentary History of Skin or Integumenta: Yes Skin/Integumentary Disorders: Eczema Blood Transfusions History of Blood Disorders: No Adverse Reaction to a Blood Tr: No Reviewed Nursing Assessment Reviewed/Agree w Nursing PMH: Yes Family Medical History Family Medial History: FH: cirrhosis 19 MOTHER FH: liver cancer 19 MOTHER FHx: lung cancer 19 FATHER Hypertension 19 FATHER 19 MOTHER Physical Exam Vital Signs Vital Sign - Last 12Hours 10/15/17 04:19 O2 Delivery Nasal Cannula Capillary Refill : Less Than 3 Seconds General Appearance: WD/WN, mild distress (anxious) HEENT: PERRL/EOMI, pharynx normal Neck: full range of motion, supple Respiratory: lungs clear, normal breath sounds Cardiovascular: regular rate, rhythm, no murmur Gastrointestinal: non tender, soft Extremities: non-tender, normal inspection Neurologic/Psychiatric: alert, oriented x 3 Skin: normal color, warm/dry Focused Exam Evaluation Lactate Level Laboratory Tests 10/15/17 03:25: Lactic Acid Level 1.12 Lactic Acid Level Laboratory Tests Test 10/15/17 03:25 Lactic Acid Level 1.12 MMOL/L (0.50-2.00) Progress/Results/Core Measures Suspected Sepsis Recent Fever Within 48 Hours: Yes Infection Criteria Present: Documented Infection New/Unexplained Altered Menta: No Sepsis Screen: No Definite Risk Sepsis Diagnosis: SIRS Temperature:100.7 Pulse: 84 Respiratory Rate: 18 Laboratory Tests 10/15/17 03:25: White Blood Count 10.2 Blood Pressure 110 /71 Mean: 84 Laboratory Tests 10/15/17 03:25: Lactic Acid Level 1.12 Laboratory Tests 10/15/17 03:25: Creatinine 0.84, INR Comment 1.1, Platelet Count 375, Total Bilirubin 0.6 Results/Orders Lab Results Laboratory Tests Test 10/15/17 03:25 10/15/17 04:15 Range/Units White Blood Count 10.2 4.3-11.0 10^3/uL Red Blood Count 4.42 4.35-5.85 10^6/uL Hemoglobin 12.2 11.5-16.0 G/DL Hematocrit 38 35-52 % Mean Corpuscular Volume 85 80-99 FL Mean Corpuscular Hemoglobin 28 25-34 PG Mean Corpuscular Hemoglobin Concent 32 32-36 G/DL Red Cell Distribution Width 14.8 H 10.0-14.5 % Platelet Count 375 130-400 10^3/uL Mean Platelet Volume 9.0 7.4-10.4 FL Neutrophils (%) (Auto) 65 42-75 % Lymphocytes (%) (Auto) 22 12-44 % Monocytes (%) (Auto) 12 0-12 % Eosinophils (%) (Auto) 1 0-10 % Basophils (%) (Auto) 0 0-10 % Neutrophils # (Auto) 6.7 1.8-7.8 X 10^3 Lymphocytes # (Auto) 2.3 1.0-4.0 X 10^3 Monocytes # (Auto) 1.2 H 0.0-1.0 X 10^3 Eosinophils # (Auto) 0.1 0.0-0.3 10^3/uL Basophils # (Auto) 0.0 0.0-0.1 10^3/uL Prothrombin Time 14.5 12.2-14.7 SEC INR Comment 1.1 0.8-1.4 Activated Partial Thromboplast Time 32 24-35 SEC Sodium Level 136 135-145 MMOL/L Potassium Level 4.0 3.6-5.0 MMOL/L Chloride Level 98 98-107 MMOL/L Carbon Dioxide Level 25 21-32 MMOL/L Anion Gap 13 5-14 MMOL/L Blood Urea Nitrogen 7 7-18 MG/DL Creatinine 0.84 0.60-1.30 MG/DL Estimat Glomerular Filtration Rate > 60 BUN/Creatinine Ratio 8 Glucose Level 127 H 70-105 MG/DL Lactic Acid Level 1.12 0.50-2.00 MMOL/L Calcium Level 9.2 8.5-10.1 MG/DL Total Bilirubin 0.6 0.1-1.0 MG/DL Aspartate Amino Transf (AST/SGOT) 16 5-34 U/L Alanine Aminotransferase (ALT/SGPT) 15 0-55 U/L Alkaline Phosphatase 140 H 40-136 U/L Total Protein 7.5 6.4-8.2 GM/DL Albumin 3.4 3.2-4.5 GM/DL Urine Color YELLOW Urine Clarity SLIGHTLY CLOUDY Urine pH 6 5-9 Urine Specific [place] 1.015 L 1.016-1.022 Urine Protein 2+ H NEGATIVE Urine Glucose (UA) NEGATIVE NEGATIVE Urine Ketones NEGATIVE NEGATIVE Urine Nitrite NEGATIVE NEGATIVE Urine Bilirubin NEGATIVE NEGATIVE Urine Urobilinogen 1 NORMAL MG/DL Urine Leukocyte Esterase 2+ H NEGATIVE Urine RBC (Auto) 3+ H NEGATIVE Urine RBC 0-2 /HPF Urine WBC 2-5 /HPF Urine Squamous Epithelial Cells TNTC H /HPF Urine Crystals NONE /LPF Urine Bacteria FEW H /HPF Urine Casts NONE /LPF Urine Mucus NEGATIVE /LPF Urine Culture Indicated NO My Orders Orders - OZIEL MONREAL MD Cbc With Automated Diff (10/15/17 03:36) Comprehensive Metabolic Panel (10/15/17 03:36) Lactic Acid Analyzer (10/15/17 03:36) Blood Culture (10/15/17 03:36) Sputum Culture (10/15/17 03:36) Ua Culture If Indicated (10/15/17 03:36) Protime With Inr (10/15/17 03:36) Partial Thromboplastin Time (10/15/17 03:36) Chest 1 View, Ap/Pa Only (10/15/17 03:36) O2 (10/15/17 03:36) Saline Lock/Iv-Start (10/15/17 03:36) Saline Lock/Iv-Start (10/15/17 03:36) Vital Signs Adult Sepsis Patie Q1H (10/15/17 03:36) Remove Rings In Anticipation O (10/15/17 03:36) Dexamethasone Injection (Decadron Inject (10/15/17 04:45) Vital Signs/I&O Vital Sign - Last 12Hours 10/15/17 10/15/17 10/15/17 03:27 03:27 04:19 Temp 100.7 Pulse 82 84 Resp 16 18 B/P (MAP) 96/80 (85) 110/71 (84) Pulse Ox 100 100 98 O2 Delivery Nasal Cannula O2 Flow Rate 15.00 15.00 2.00 Capillary Refill : Less Than 3 Seconds Blood Pressure Mean: 84 Progress Note : Progress Note Seen and evaluated on arrival by EMS. IV, labs, UA, blood culture and lactic acid ordered. Chest x-ray ordered. Monitor patient. 0440: Chest x-ray does not show any infiltrate and actually pleural effusion is smaller than previous. Patient did have mild fever on arrival. She has moderate amount of nasal mucus. Likely upper respiratory infection and is likely viral given that her labs are normal. She is tolerating by mouth fluids. We will give Decadron 10 mg IV due to bronchitis/upper respiratory findings. She has breathing treatments at home. Discharged home with return precautions. Patient verbalize understanding of instructions and agreement with plan. Diagnostic Imaging Diagonstic Imaging: Xray Plain Films/CT/US/NM/MRI: chest Comments Left pleural effusion smaller than previous. Departure Impression Impression: Primary Impression: Viral upper respiratory infection Additional Impression: Bronchitis Disposition: 01 HOME, SELF-CARE Condition: Stable Departure-Patient Inst. Decision time for Depature: 04:48 Referrals: ESSIE BABCOCK MD (PCP) Primary Care Physician BRETT JOHNSON (Family) Primary Care Physician Patient Instructions: Acute Bronchitis, Adult (DC), Viral Upper Respiratory Infection, Adult (DC) Add. Discharge Instructions: All discharge instructions reviewed with patient and/or family. Voiced understanding. Continue home meds as previously prescribed. Follow-up with your DrGrecia in one to 2 days for recheck and further evaluation especially regarding the discomfort you're having along the left chest wall. Return for worse pain, fever, vomiting , weakness, breathing problems or other concerns as needed. Copy Copies To 1: CAROLYN ALVARADO TIMOTHY D MD Oct 15, 2017 04:46
[2017-10-15 04:53] VITALS: BP 122/65
--- NOTE | 2017-10-15 08:12 | Diagnostic Imaging Report ---
INDICATION: Cough and chest pain. TIME OF EXAM: 3:47 a.m. Correlation is made with prior study from 10/02/2017. The heart is enlarged but stable. There has been reduction in size of left pleural effusion when compared with prior study, which is now small. No infiltrates are detected. No pneumothorax is seen. IMPRESSION: Reduction in the left pleural effusion when compared with examination from 10/02/2017. Dictated by: Dictated on workstation # [id number]
== END 2017-10-15 05:45 | disposition home or self-care (01) ==
LOC: EDUNIT# 03:27 → ER 03:29
DX: J06.9 Acute upper respiratory infection, unspecified (principal); J40 Bronchitis, not specified as acute or chronic; E78.00 Pure hypercholesterolemia, unspecified; J43.9 Emphysema, unspecified; I10 Essential (primary) hypertension; G40.909 Epilepsy, unspecified, not intractable, without status epilepticus; F41.9 Anxiety disorder, unspecified; K21.9 Gastro-esophageal reflux disease without esophagitis; M81.0 Age-related osteoporosis without current pathological fracture; F17.210 Nicotine dependence, cigarettes, uncomplicated; I48.91 Unspecified atrial fibrillation; Z90.49 Acquired absence of other specified parts of digestive tract; Z90.710 Acquired absence of both cervix and uterus; Z87.59 Personal history of other complications of pregnancy, childbirth and the puerperium; Z87.42 Personal history of other diseases of the female genital tract; Z79.82 Long term (current) use of aspirin; Z86.711 Personal history of pulmonary embolism; Z86.718 Personal history of other venous thrombosis and embolism; Z98.51 Tubal ligation status
CPT/HCPCS: 36415; 71045; 80053; 81000; 83605; 85025; 85610; 85730; 87040; 87070; 87205; 96374

== ENCOUNTER 2017-11-03 01:01 | Emergency (ER) | payer MEDICAID ==
[~2017-11-03] VITALS: Ht 172.7 cm; Wt 83.9 kg
[2017-11-03] MEDS ORDERED: PANTOPRAZOLE 40 MG/10 ML (PROTONIX) VIAL IV STA (01:10)
[2017-11-03] MEDS ORDERED: KETOROLAC 30 MG/ML VIAL IVP STA (01:10)
[2017-11-03] MEDS ORDERED: ONDANSETRON 4 MG/2 ML (SDV) Z0FRAN IVP ONE (01:15)
[2017-11-03 01:18] LABS: BASOPHILS % (AUTO) 0 % (0-10); EOSINOPHILS # (AUTO) 0.2 10^3/uL (0.0-0.3); EOSINOPHILS % (AUTO) 1 % (0-10); HEMATOCRIT 41 % (35-52); HEMOGLOBIN 13.9 G/DL (11.5-16.0); LYMPHOCYTES # (AUTO) 2.3 X 10^3 (1.0-4.0); LYMPHOCYTES % (AUTO) 17 % (12-44); MEAN CORPUSCULAR HEMOGLOBIN 29 PG (25-34); MEAN CORPUSCULAR HGB CONC 34 G/DL (32-36); MEAN CORPUSCULAR VOLUME 85 FL (80-99); MEAN PLATELET VOLUME 8.6 FL (7.4-10.4); MONOCYTES # (AUTO) 1.2 X 10^3 (0.0-1.0); MONOCYTES % (AUTO) 9 % (0-12); NEUTROPHILS # (AUTO) 9.9 X 10^3 (1.8-7.8); NEUTROPHILS % (AUTO) 73 % (42-75); PLATELET COUNT 269 10^3/uL (130-400); RED BLOOD COUNT 4.88 10^6/uL (4.35-5.85); RED CELL DISTRIBUTION WIDTH 17.8 % (10.0-14.5); WHITE BLOOD COUNT 13.6 10^3/uL (4.3-11.0)
[2017-11-03] MEDS ORDERED: LORazepam INJ 2 MG/ML (ATIVAN) VIAL ONE (01:27)
[2017-11-03] MEDS ORDERED: LORazepam INJ 2 MG/ML (ATIVAN) VIAL IVP ONE (01:30)
[2017-11-03 01:32] LABS: PROTHROMBIN TIME PATIENT 12.8 SEC (12.2-14.7)
--- NOTE | 2017-11-03 01:37 | ED General ---
General Chief Complaint: Chest Pain Stated Complaint: GENERALIZED PAIN Nursing Triage Note: PT BROUGHT IN BY [facility] WITH C/O GENERALIZED PAIN. SHE STATES SHE WOKE UP THIS AM AND WAS HAVING PAIN NEAR HER DIAPHRAGM, BILAT ARMS, BACK, AND R ANKLE. SHE REPORTS HX OF ANXIETY. SHE ALSO STATES SHE WAS ON PREDISONE FOR ABOUT 10 DAYS AND STOPPED TAKING IT SATURDAY. SHE BELIEVES SHE IS HAVING WITHDRAWALS FROM THE PREDNISONE. Nursing Sepsis Screen: No Definite Risk Source of Information: Patient, EMS History of Present Illness Date Seen by Provider: Nov 03, 2017 Time Seen by Provider: 00:58 Initial Comments PT ARRIVES VIA EMS FROM HOME PT STATES SHE WOKE UP JUST PRIOR TO ARRIVAL AND C/O GENERALIZED PAIN C/O CHEST PAIN, NECK PAIN, BACK PAIN, BILATERAL SHOULDER PAIN, BILATERAL LEG PAIN, LEFT ANKLE PAIN, "MY DIAPHRAGM HURTS AND ALL AROUND UNDER MY BREASTS AND MY STOMACH" STATES IT HURTS ALL OVER HER BODY TO TAKE A DEEP BREATH PT REPEATS A MULTITUDE OF TIMES "I'M SO ANXIOUS" ( YET IS CALM WHEN SHE STATES THIS ) STATES SHE TOOK A XANAX JUST PRIOR TO ARRIVAL PT STATES "I'VE BEEN BATTLING PAIN SINCE AUGUST 03 AND IT'S GETTING UNREAL" PT STATES SHE HAS NOT TAKEN ANYTHING FOR PAIN --STATES " I HAVE SEVERE PROBLEMS WITH ORAL PAIN MEDICATIONS AND I HAVE SEVERE STOMACH REACTIONS WITH ORAL PAIN MEDICATIONS AND THIS DIDN'T FEEL LIKE SOMETHING THAT ORAL PAIN MEDICATIONS COULD HELP WITH" PT STATES "I HAVE 3 BOTTLES OF PAIN PILLS AT HOME, BUT I DON'T TAKE THEM"--HAS TORADOL, HYDROCODONE AND IBUPROFEN. PT STATES "THEY ALWAYS GIVE ME TORADOL IF TYLENOL DOESN'T WORK"--REFERRING TO IV TORADOL PT ALSO STATES SHE HAS ZOFRAN, ZANTAC AND OMEPRAZOLE AT HOME. PT STATES SHE HAD SURGERY FOR PERICARDIAL EFFUSION / PERICARDIAL WINDOW BY DR. KRAFT AT [facility] IN SEPTEMBER 03, 2017 PT STATES SHE HAS BEEN ON 2 TAPERING DOSES OF PREDNISONE IN THE LAST 1 1/2 WEEKS --FOR BRONCHITIS AND COSTOCHONDRITIS. STOPPED LAST ROUND ON SATURDAY. STATES IT MAKE HER VERY ANXIOUS AND SHAKEY AND SWEATY STATES IT CAUSED HER BP TO GO UP, SO CALLED [facility] AND DR. LAZO'S OFFICE AND WAS TOLD TO STOP PREDNISONE AND START LISINOPRIL 10 MG PT IS FIXATED ON THIS --THINKS SHE IS HAVING WITHDRAWL FROM PREDNISONE--HAD NOT BEEN ON IT FOR A LONG TIME PRIOR TO 1 1/2 WEEKS AGO, AND HAS NEVER BEEN ON IT LONG-TERM AND HAS NEVER TAKEN MORE THAN A BRIEF TAPER PT ALSO FIXATED ON HER SURGERY FOR PERICARDIAL EFFUSION ALSO FIXATED ON ANXIETY THEN IS FIXATED ON LYMPH NODES IN CHEST THAT WERE NOTED WHEN SHE HAD PNEUMONIA AND IS TO HAVE REPEAT CT SCAN DONE IN DECEMBER--BEING FOLLOWED BY DR. CERON. 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 LAZO Allergies and Home Medications Allergies Coded Allergies: buspirone HCl (Verified Allergy, Unknown, 08/14/15) etodolac (Verified Allergy, Unknown, 08/14/15) NSAIDS (Non-Steroidal Anti-Inflamma (Verified Adverse Reaction, Unknown, 08/14/15) Neuromuscular Blockers, Steroidal (Verified Adverse Reaction, Unknown, ) gabapentin (Verified Adverse Reaction, Unknown, 08/14/15) Home Medications Albuterol Sulfate 1 Puff Puff, 2 PUFF INH QID PRN for SHORTNESS OF BREATH, ( Reported) Albuterol Sulfate 2.5 Mg/3 Ml Vial.neb, 2.5 MG NEB Q4H PRN for SHORTNESS OF BREATH, (Reported) Alprazolam 0.5 Mg Tablet, 0.5 MG PO TID PRN for ANXIETY, (Reported) Amiodarone HCl 200 Mg Tablet, 200 MG PO DAILY, (Reported) Aspirin 325 Mg Tablet.dr, 325 MG PO DAILY, (Reported) Atenolol 100 Mg Tablet, 50 MG PO BID, (Reported) TAKES 1/2 (100MG) TABLET Cetirizine HCl 10 Mg Tablet, 10 MG PO DAILY, (Reported) Cholecalciferol (Vitamin D3) 1,000 Unit Tablet, 1,000 UNIT PO BID, (Reported) Cyanocobalamin 1,000 Mcg/Ml Inj, 1,000 MCG IJ MONTHLY, (Reported) Dicyclomine HCl 20 Mg Tablet, 20 MG PO QID PRN for STOMACH UPSET, (Reported) Docusate Sodium 100 Mg Capsule, 100 MG PO BID PRN for CONSTIPATION-1ST LINE, ( Reported) Fluconazole 150 Mg Tablet, 150 MG PO DAILY for 3 Days, (Reported) 3 TABS FILLED 09-30-17 HOWEVER PATIENT STATES SHE HAS NOT STARTED TAKING THEM YET Fluticasone Propionate 16 Gm Nebo.susp, 1 SPRAY NSEACH BID, (Reported) Fluticasone/Salmeterol 1 Each Blst.w.dev, 1 PUFF IH BID, (Reported) Guaifenesin/Dextromethorphan 5 Ml Syrup, 10 ML PO Q6H PRN for COUGH, (Reported) Hydrocodone Bit/Acetaminophen 1 Tab Tab, 1 TAB PO Q6H PRN for PAIN-MODERATE, ( Reported) FILLED #24 09-30-17 Ibuprofen 600 Mg Tablet, 600 MG PO Q6H PRN for PAIN-MILD, (Reported) Lactobacillus Acidophilus 1 Each Capsule, 1 CAP PO DAILY, (Reported) [place] 3 Polyunsat Fatty Acids 1,000 Mg Cap, 2,000 MG PO BID, (Reported) Omeprazole 40 Mg Capsule.dr, 40 MG PO DAILY, (Reported) Ranitidine HCl 150 Mg Tablet, 150 MG PO BID, (Reported) Simethicone 125 Mg Tab.chew, 2 TAB PO BID PRN for GAS, (Reported) Tramadol HCl 50 Mg Tablet, 50 MG PO Q6H PRN for PAIN-MODERATE, (Reported) FILLED #60 09-30-17 Constitutional: no symptoms reported, No chills, No fever EENTM: no symptoms reported Respiratory: see HPI Cardiovascular: see HPI Gastrointestinal: see HPI, No nausea, No vomiting Genitourinary: no symptoms reported Musculoskeletal: see HPI Skin: no symptoms reported Psychiatric/Neurological: See HPI, Denies Headache, Denies Numbness, Denies Paresthesia, Denies Tingling, Denies Weakness Hematologic/Lymphatic: No Symptoms Reported Immunological/Allergic: no symptoms reported Past Sshpsad-Gbdcph-Xxeoqe Hx Patient Social History Alcohol Use: Denies Use Recreational Drug Use: No Smoking Status: Current Everyday Smoker (1 PPD ) Type Used: Cigarettes 2nd Hand Smoke Exposure: Yes Recent Foreign Travel: No Contact w/Someone Who Travel: No Recent Infectious Disease Expo: No Recent Hopitalizations: No Immunizations Up To Date Tetanus Booster (TDap): Unknown Date of Pneumonia Vaccine: Jun 07, 2016 Date of Influenza Vaccine: Jun 07, 2016 Seasonal Allergies Seasonal Allergies: Yes Surgeries History of Surgeries: Yes (HERNIA REPAIR; HYST/USO; OVARIAN CYST REMOVAL; C/S X2; ORAL SURGERY;PERICARDIAL EFFUSION/PERICARDIAL WINDOW 08/2017; EGD/ COLONOSCOPIES; LEFT THORACENTESIS 09/23/17) Surgeries: Abdominal, Appendectomy, Cardiac, Section, Gallbladder, Hysterectomy, Oophorectomy Respiratory History of Respiratory Disorde: Yes (O2 AT 2-3 L/NC CONTINUOUSLY; PLEURAL EFFUSIONS WITH LEFT THORACENTESIS 09/23/17) Respiratory Disorders: Asthma, Pneumonia, Pulmonary Embolism, Sleep Apnea, COPD , Emphysema Currently Using CPAP: No Currently Using BIPAP: No Cardiovascular History of Cardiac Disorders: Yes (Pericardial effusion-S/P PERICARDIAL WINDOW 08/2017) Cardiac Disorders: Atrial Fibrillation, Chronic Edema/Swelling, Deep Vein Thrombosis, High Cholesterol, Hypertension Neurological History of Neurological Disord: Yes (PSEUDO SEIZURES ) Neurological Disorders: Seizure Disorder 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 System Hx 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 Disorders: Yes Female 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, 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, Menopausal Genitourinary History of Genitourinary Disor: No Gastrointestinal History of Gastrointestinal Di: Yes (CHOKES EASILY) Gastrointestinal Disorders: Abdominal Hernia, Gastroesophageal Reflux, Diverticulosis, Hiatal Hernia, Ulcer, Gall Bladder Disease, Irritable Bowel Musculoskeletal History of Musculoskeletal Dis: Yes (CHRONIC KNEE AND HIP PAIN, SPINAL STENOSIS ) Musculoskeletal Disorders: Degenerate Disk Disease, Osteoporosis, Arthritis, Chronic Back Pain Endocrine History of Endocrine Disorders: No HEENT History of HEENT Disorders: No Cancer History of Cancer: No Psychosocial History of Psychiatric Problem: Yes Behavioral Health Disorders: Pseudo Seizures, Anxiety Integumentary History of Skin or Integumenta: Yes Skin/Integumentary Disorders: Eczema Blood Transfusions History of Blood Disorders: No Adverse Reaction to a Blood Tr: No Family Medical History Family Medial History: FH: cirrhosis 19 MOTHER FH: liver cancer 19 MOTHER FHx: lung cancer 19 FATHER Hypertension 19 FATHER 19 MOTHER Physical Exam Vital Signs Vital Signs - First Documented Capillary Refill : Less Than 3 Seconds General Appearance: No Apparent Distress, WD/WN, Other (REEKS OF CIGARETTES) HEENT: PERRL/EOMI, Other (POOR DENTITION) Neck: Full Range of Motion, Normal Inspection, Non Tender, Supple, No Carotid Bruit, No JVD Respiratory: Normal Breath Sounds, No Accessory Muscle Use, No Respiratory Distress Cardiovascular: Regular Rate, Rhythm, No Edema, No JVD, No Murmur, Normal Peripheral Pulses Gastrointestinal: Normal Bowel Sounds, No Organomegaly, No Pulsatile Mass, Non Tender, Soft Extremity: Normal Capillary Refill, Normal Range of Motion, Non Tender, No Calf Tenderness, No Pedal Edema Neurologic/Psychiatric: Alert, Oriented x3, No Motor/Sensory Deficits, 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 Norm as Tested Skin: Normal Color, Warm/Dry Progress/Results/Core Measures Suspected Sepsis Recent Fever Within 48 Hours: No Infection Criteria Present: None New/Unexplained Altered Menta: No Sepsis Screen: No Definite Risk Sepsis Diagnosis: SIRS Temperature:97.2 Pulse: 81 Respiratory Rate: 20 Laboratory Tests 11/03/17 01:08: White Blood Count 13.6H Blood Pressure 140 /85 Mean: 103 Laboratory Tests 11/03/17 01:08: Creatinine 0.84, INR Comment 1.0, Platelet Count 269, Total Bilirubin 0.8 Results/Orders Lab Results Laboratory Tests Test 11/03/17 01:08 11/03/17 02:18 Range/Units White Blood Count 13.6 H 4.3-11.0 10^3/uL Red Blood Count 4.88 4.35-5.85 10^6/uL Hemoglobin 13.9 11.5-16.0 G/DL Hematocrit 41 35-52 % Mean Corpuscular Volume 85 80-99 FL Mean Corpuscular Hemoglobin 29 25-34 PG Mean Corpuscular Hemoglobin Concent 34 32-36 G/DL Red Cell Distribution Width 17.8 H 10.0-14.5 % Platelet Count 269 130-400 10^3/uL Mean Platelet Volume 8.6 7.4-10.4 FL Neutrophils (%) (Auto) 73 42-75 % Lymphocytes (%) (Auto) 17 12-44 % Monocytes (%) (Auto) 9 0-12 % Eosinophils (%) (Auto) 1 0-10 % Basophils (%) (Auto) 0 0-10 % Neutrophils # (Auto) 9.9 H 1.8-7.8 X 10^3 Lymphocytes # (Auto) 2.3 1.0-4.0 X 10^3 Monocytes # (Auto) 1.2 H 0.0-1.0 X 10^3 Eosinophils # (Auto) 0.2 0.0-0.3 10^3/uL Basophils # (Auto) 0.0 0.0-0.1 10^3/uL Erythrocyte Sedimentation Rate 17 0-30 MM/HR Prothrombin Time 12.8 12.2-14.7 SEC INR Comment 1.0 0.8-1.4 Activated Partial Thromboplast Time 31 24-35 SEC Sodium Level 138 135-145 MMOL/L Potassium Level 3.5 L 3.6-5.0 MMOL/L Chloride Level 99 98-107 MMOL/L Carbon Dioxide Level 25 21-32 MMOL/L Anion Gap 14 5-14 MMOL/L Blood Urea Nitrogen 7 7-18 MG/DL Creatinine 0.84 0.60-1.30 MG/DL Estimat Glomerular Filtration Rate > 60 BUN/Creatinine Ratio 8 Glucose Level 142 H 70-105 MG/DL Calcium Level 9.0 8.5-10.1 MG/DL Magnesium Level 2.3 1.8-2.4 MG/DL Total Bilirubin 0.8 0.1-1.0 MG/DL Aspartate Amino Transf (AST/SGOT) 13 5-34 U/L Alanine Aminotransferase (ALT/SGPT) 20 0-55 U/L Alkaline Phosphatase 83 40-136 U/L Total Creatine Kinase 56 29-168 U/L Creatine Kinase MB 1.5 <6.6 NG/ML Troponin I < 0.30 <0.30 NG/ML C-Reactive Protein High Sensitivity 4.38 H 0.00-0.50 MG/DL B-Type Natriuretic Peptide 78.5 <100.0 PG/ML Total Protein 6.7 6.4-8.2 GM/DL Albumin 3.6 3.2-4.5 GM/DL Amylase Level 51 25-125 U/L Lipase 15 8-78 U/L TSH [place] Testing 1.75 0.35-4.94 UIU/ML Urine Color YELLOW Urine Clarity CLEAR Urine pH 6 5-9 Urine Specific [place] 1.020 1.016-1.022 Urine Protein 1+ H NEGATIVE Urine Glucose (UA) NEGATIVE NEGATIVE Urine Ketones NEGATIVE NEGATIVE Urine Nitrite NEGATIVE NEGATIVE Urine Bilirubin NEGATIVE NEGATIVE Urine Urobilinogen 1 NORMAL MG/DL Urine Leukocyte Esterase 1+ H NEGATIVE Urine RBC (Auto) NEGATIVE NEGATIVE Urine RBC NONE /HPF Urine WBC RARE /HPF Urine Squamous Epithelial Cells >50 H /HPF Urine Crystals NONE /LPF Urine Bacteria TRACE /HPF Urine Casts NONE /LPF Urine Mucus MODERATE H /LPF Urine Culture Indicated NO Urine Opiates Screen NEGATIVE NEGATIVE Urine Oxycodone Screen NEGATIVE NEGATIVE Urine Methadone Screen NEGATIVE NEGATIVE Urine Propoxyphene Screen NEGATIVE NEGATIVE Urine Barbiturates Screen NEGATIVE NEGATIVE Ur Tricyclic Antidepressants Screen NEGATIVE NEGATIVE Urine Phencyclidine Screen NEGATIVE NEGATIVE Urine Amphetamines Screen NEGATIVE NEGATIVE Urine Methamphetamines Screen NEGATIVE NEGATIVE Urine Benzodiazepines Screen POSITIVE H NEGATIVE Urine Cocaine Screen NEGATIVE NEGATIVE Urine Cannabinoids Screen NEGATIVE NEGATIVE My Orders Orders - MONA JIMENEZA K DO Saline Lock/Iv-Start (11/03/17 01:10) Ekg Tracing (11/03/17 01:10) O2 (11/03/17 01:10) Monitor-Rhythm Ecg Trace Only (11/03/17 01:10) Amylase (11/03/17 01:10) BNP (11/03/17 01:10) Cbc With Automated Diff (11/03/17 01:10) Comprehensive Metabolic Panel (11/03/17 01:10) Creatine Kinase (11/03/17 01:10) Creatine Kinase Mb (11/03/17 01:10) Hs C Reactive Protein (11/03/17 01:10) Erythrocyte Sedimentation Rate (11/03/17 01:10) Drug Screen Stat (Urine) (11/03/17 01:10) Lipase (11/03/17 01:10) Magnesium (11/03/17 01:10) Protime With Inr (11/03/17 01:10) Partial Thromboplastin Time (11/03/17 01:10) Thyroid Analyzer (11/03/17 01:10) Troponin I (11/03/17 01:10) Ua Culture If Indicated (11/03/17 01:10) Chest Pa/Lat (2 View) (11/03/17 01:10) Ondansetron Injection (Zofran Injectio (11/03/17 01:15) Ketorolac Injection (Toradol Injection) (11/03/17 01:10) Pantoprazole Injection (Protonix Injecti (11/03/17 01:10) Lorazepam Injection (Ativan Injection) (11/03/17 01:30) Medications Given in ED Current Medications Medications Dose Ordered Sig/Tino Route Start Time Stop Time Status Last Admin Dose Admin Lorazepam 2 mg ONCE ONCE IVP 11/03/17 01:30 11/03/17 01:31 UNV 11/03/17 01:38 2 MG Ondansetron HCl 4 mg ONCE ONCE IVP 11/03/17 01:15 11/03/17 01:16 DC 11/03/17 01:38 4 MG Vital Signs/I&O Vital Sign - Last 12Hours 11/03/17 11/03/17 11/03/17 01:10 01:10 01:10 Temp 97.2 Pulse 81 Resp 20 B/P (MAP) 140/85 (103) Pulse Ox 97 98 O2 Delivery Nasal Cannula Nasal Cannula Nasal Cannula O2 Flow Rate 2.0 2.0 2.00 Capillary Refill : Less Than 3 Seconds Blood Pressure Mean: 103 Progress Note : Progress Note SYMPTOMS IMPROVED WITH ATIVAN AND TORADOL ECG Initial ECG Impression Date: Nov 03, 2017 Initial ECG Impression Time: 01:19 Initial ECG Rate: 78 Initial ECG Rhythm: Normal Sinus Initial ECG Impression: Nonspecific Changes Diagnostic Imaging Comments CXR--NO ACUTE PROCESS, RESOLVED PLEURAL EFFUSION, PENDING RADIOLOGIST REVIEW Reviewed: Reviewed by Me Departure Impression Impression: Primary Impression: Generalized pain Additional Impression: Anxiety Disposition: 01 HOME, SELF-CARE Condition: Improved Departure-Patient Inst. Referrals: ESSIE BABCOCK MD (PCP) Primary Care Physician BRETT JOHNSON (Family) Primary Care Physician Patient Instructions: Acute Pain, Adult (DC), Anxiety, Adult (DC), Chest Pain That Is Not Caused by the Heart (DC) Add. Discharge Instructions: TAKE YOUR REGULAR MEDICATIONS PRESCRIBED YOU MAY TAKE YOUR HOME HYDROCODONE AND TORADOL WITH ZOFRAN NEEDED FOR PAIN YOU MAY TAKE XANAX EVERY 4 HOURS TODAY FOR ANXIETY, THEN RESUME YOUR REGULAR SCHEDULE. FOLLOW UP WITH YOUR DR IN 3-4 DAYS IF NO BETTER All discharge instructions reviewed with patient and/or family. Voiced understanding. JACQUELINE JIMENEZ DO Nov 03, 2017 01:37
[2017-11-03 01:42] LABS: ALANINE AMINOTRANSFERASE 20 U/L (0-55); ALBUMIN 3.6 GM/DL (3.2-4.5); ALKALINE PHOSPHATASE 83 U/L (40-136); AMYLASE 51 U/L (25-125); BILIRUBIN,TOTAL 0.8 MG/DL (0.1-1.0); BUN/CREATININE RATIO 8; CARBON DIOXIDE 25 MMOL/L (21-32); CHLORIDE 99 MMOL/L (98-107); CREATINE KINASE 56 U/L (29-168); CREATININE SERUM 0.84 MG/DL (0.60-1.30); GFR ESTIMATED > 60; GLUCOSE 142 MG/DL (70-105); LIPASE 15 U/L (8-78); MAGNESIUM 2.3 MG/DL (1.8-2.4); POTASSIUM 3.5 MMOL/L (3.6-5.0); SODIUM 138 MMOL/L (135-145); TOTAL PROTEIN 6.7 GM/DL (6.4-8.2)
[2017-11-03 01:43] LABS: ERYTHROCYTE SEDIMENTATION RATE 17 MM/HR (0-30)
[2017-11-03 02:01] LABS: CREATINE KINASE MB 1.5 NG/ML (<6.6); TSH (THYROID ANALYZER) 1.75 UIU/ML (0.35-4.94)
[2017-11-03 02:27] LABS: BILIRUBIN,URINE NEGATIVE (NEGATIVE); CLARITY,URINE CLEAR; COLOR,URINE YELLOW; GLUCOSE, URINE (UA) NEGATIVE (NEGATIVE); KETONES,URINE NEGATIVE (NEGATIVE); LEUKOCYTE ESTERASE ,URINE 1+ (NEGATIVE); NITRITE,URINE NEGATIVE (NEGATIVE); PH,URINE 6 (5-9); PROTEIN,URINE 1+ (NEGATIVE); UROBILINOGEN,URINE 1 MG/DL (NORMAL)
[2017-11-03 02:35] LABS: BACTERIA,URINE TRACE /HPF; SQUAMOUS EPITHELIAL CELL,UR >50 /HPF; WBC,URINE RARE /HPF
[2017-11-03 02:39] LABS: AMPHETAMINE SCREEN, URINE NEGATIVE (NEGATIVE); BARBITURATE SCREEN URINE NEGATIVE (NEGATIVE); BENZODIAZEPINES SCREEN URINE POSITIVE (NEGATIVE); CANNABINOID SCREEN, URINE NEGATIVE (NEGATIVE); COCAINE SCREEN URINE NEGATIVE (NEGATIVE); METHADONE STAT NEGATIVE (NEGATIVE); METHAMPHETAMINE SCREEN URINE S NEGATIVE (NEGATIVE); OPIATE SCREEN URINE NEGATIVE (NEGATIVE); OXYCODONE STAT NEGATIVE (NEGATIVE); PROPOXYPHENE STAT NEGATIVE (NEGATIVE); TRICYCLIC ANTIDEPRESSANTS SCRE NEGATIVE (NEGATIVE)
[2017-11-03 02:52] VITALS: BP 92/63
--- NOTE | 2017-11-03 07:06 | Diagnostic Imaging Report ---
EXAM: CHEST PA/LAT (2 VIEW) INDICATION: Chest pain. COMPARISON: Chest radiograph 10/15/2017. FINDINGS: Normal heart size and pulmonary vascularity. Interval resolution of the left pleural effusion. No focal pulmonary opacity or pneumothorax. Osseous structures are unremarkable. IMPRESSION: No acute cardiopulmonary findings. Interval resolution of the left pleural effusion. Dictated by: Dictated on workstation # [id number]
--- OUTSIDE RECORDS SUMMARY | 2017-11-03 11:40 | XMS REPORT | Continuity of Care Document ---
Author Author [employer] Organization [facility] Address Unknown Phone Unavailable Care Team Providers Care Asset Protection Associate Name Role Phone [employer] Unavailable Unavailable Problems Medications Allergies, Adverse Reactions, Alerts Immunizations Results Vital Signs Encounters Location Location Details Encounter Type Encounter Number Reason For Visit Attending Provider ADM Date DC Date Status Source O "" BRETT JOHNSON [facility] Procedures Plan of Care Social History Assessment and Plan Family History Advance Directives Functional Status
== END 2017-11-03 02:53 | disposition home or self-care (01) ==
LOC: EDUNIT# 01:01 → ER 01:03
DX: R07.89 Other chest pain (principal); F41.9 Anxiety disorder, unspecified; J43.9 Emphysema, unspecified; G47.30 Sleep apnea, unspecified; I48.91 Unspecified atrial fibrillation; G40.909 Epilepsy, unspecified, not intractable, without status epilepticus; E78.00 Pure hypercholesterolemia, unspecified; I10 Essential (primary) hypertension; M81.0 Age-related osteoporosis without current pathological fracture; F17.210 Nicotine dependence, cigarettes, uncomplicated; Z88.6 Allergy status to analgesic agent; Z80.1 Family history of malignant neoplasm of trachea, bronchus and lung; Z87.19 Personal history of other diseases of the digestive system; Z80.0 Family history of malignant neoplasm of digestive organs; Z87.01 Personal history of pneumonia (recurrent); Z98.51 Tubal ligation status; Z87.448 Personal history of other diseases of urinary system; Z86.718 Personal history of other venous thrombosis and embolism; Z90.49 Acquired absence of other specified parts of digestive tract; Z90.710 Acquired absence of both cervix and uterus; Z88.8 Allergy status to other drugs, medicaments and biological substances; Z79.82 Long term (current) use of aspirin
CPT/HCPCS: 36415; 71046; 80053; 80306; 81000; 82150; 82550; 82553; 83690; 83735; 83880; 84443; 84484; 85025; 85610; 85652; 85730; 86141; 93005; 93041; 96374; 96375

== ENCOUNTER 2017-11-03 19:19 | Emergency (ER) | payer MEDICAID ==
[~2017-11-03] VITALS: Ht 172.7 cm; Wt 84.0 kg
--- NOTE | 2017-11-03 21:31 | ED General ---
General Chief Complaint: General Problems/Pain Stated Complaint: GENERALIZED PAIN Nursing Triage Note: PT REPORTS SHE HAS HAD INCREASING WEAKNESS AND SOB. PT WAS SEEN AND TX IN THIS ED FOR SAME S/S. Nursing Sepsis Screen: No Definite Risk Source of Information: Patient Exam Limitations: No Limitations History of Present Illness Date Seen by Provider: Nov 03, 2017 Time Seen by Provider: 21:29 Initial Comments To ER with reports of increasing weakness, pain with deep breathing, pain to the right neck, abdomen, leg and arm.. Was seen here in this morning about 20 hours ago for the same. States that she just finished prednisone yesterday and is feeling increasingly weak today and slept most of the day. Timing/Duration: 1-2 Days Allergies and Home Medications Allergies Coded Allergies: buspirone HCl (Verified Allergy, Unknown, 08/14/15) etodolac (Verified Allergy, Unknown, 08/14/15) NSAIDS (Non-Steroidal Anti-Inflamma (Verified Adverse Reaction, Unknown, 08/14/15) Neuromuscular Blockers, Steroidal (Verified Adverse Reaction, Unknown, ) gabapentin (Verified Adverse Reaction, Unknown, 08/14/15) Home Medications Albuterol Sulfate 1 Puff Puff, 2 PUFF INH QID PRN for SHORTNESS OF BREATH, ( Reported) Albuterol Sulfate 2.5 Mg/3 Ml Vial.neb, 2.5 MG NEB Q4H PRN for SHORTNESS OF BREATH, (Reported) Alprazolam 0.5 Mg Tablet, 0.5 MG PO TID PRN for ANXIETY, (Reported) Amiodarone HCl 200 Mg Tablet, 200 MG PO DAILY, (Reported) Aspirin 325 Mg Tablet.dr, 325 MG PO DAILY, (Reported) Atenolol 100 Mg Tablet, 50 MG PO BID, (Reported) TAKES 1/2 (100MG) TABLET Cetirizine HCl 10 Mg Tablet, 10 MG PO DAILY, (Reported) Cholecalciferol (Vitamin D3) 1,000 Unit Tablet, 1,000 UNIT PO BID, (Reported) Cyanocobalamin 1,000 Mcg/Ml Inj, 1,000 MCG IJ MONTHLY, (Reported) Dicyclomine HCl 20 Mg Tablet, 20 MG PO QID PRN for STOMACH UPSET, (Reported) Docusate Sodium 100 Mg Capsule, 100 MG PO BID PRN for CONSTIPATION-1ST LINE, ( Reported) Fluconazole 150 Mg Tablet, 150 MG PO DAILY for 3 Days, (Reported) 3 TABS FILLED 09-30-17 HOWEVER PATIENT STATES SHE HAS NOT STARTED TAKING THEM YET Fluticasone Propionate 16 Gm [place].susp, 1 SPRAY NSEACH BID, (Reported) Fluticasone/Salmeterol 1 Each Blst.w.dev, 1 PUFF IH BID, (Reported) Guaifenesin/Dextromethorphan 5 Ml Syrup, 10 ML PO Q6H PRN for COUGH, (Reported) Hydrocodone Bit/Acetaminophen 1 Tab Tab, 1 TAB PO Q6H PRN for PAIN-MODERATE, ( Reported) FILLED #24 09-30-17 Ibuprofen 600 Mg Tablet, 600 MG PO Q6H PRN for PAIN-MILD, (Reported) Lactobacillus Acidophilus 1 Each Capsule, 1 CAP PO DAILY, (Reported) [place] 3 Polyunsat Fatty Acids 1,000 Mg Cap, 2,000 MG PO BID, (Reported) Omeprazole 40 Mg Capsule.dr, 40 MG PO DAILY, (Reported) Ranitidine HCl 150 Mg Tablet, 150 MG PO BID, (Reported) Simethicone 125 Mg Tab.chew, 2 TAB PO BID PRN for GAS, (Reported) Tramadol HCl 50 Mg Tablet, 50 MG PO Q6H PRN for PAIN-MODERATE, (Reported) FILLED #60 09-30-17 Constitutional: see HPI, malaise, weakness EENTM: see HPI Respiratory: no symptoms reported Cardiovascular: no symptoms reported Genitourinary: no symptoms reported Musculoskeletal: no symptoms reported Skin: no symptoms reported Psychiatric/Neurological: No Symptoms Reported Hematologic/Lymphatic: No Symptoms Reported Past [id number]-[id number] Hx Patient Social History Alcohol Use: Denies Use Recreational Drug Use: No Smoking Status: Current Everyday Smoker Type Used: Cigarettes 2nd Hand Smoke Exposure: Yes Recent Foreign Travel: No Contact w/Someone Who Travel: No Recent Infectious Disease Expo: No Recent Hopitalizations: No Immunizations Up To Date Tetanus Booster (TDap): Unknown Date of Pneumonia Vaccine: Jun 07, 2016 Date of Influenza Vaccine: Jun 07, 2016 Seasonal Allergies Seasonal Allergies: Yes Surgeries History of Surgeries: Yes Surgeries: Abdominal, Appendectomy, Cardiac, Section, Gallbladder, Hysterectomy, Oophorectomy Respiratory History of Respiratory Disorde: Yes Respiratory Disorders: Asthma, Pneumonia, Pulmonary Embolism, Sleep Apnea, COPD , Emphysema Currently Using CPAP: No Currently Using BIPAP: No Cardiovascular History of Cardiac Disorders: Yes (Pericardial effusion-S/P PERICARDIAL WINDOW 08/2017) Cardiac Disorders: Atrial Fibrillation, Chronic Edema/Swelling, Deep Vein Thrombosis, High Cholesterol, Hypertension Neurological History of Neurological Disord: Yes (PSEUDO SEIZURES ) Neurological Disorders: Seizure Disorder 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 System Hx 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 Disorders: Yes 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, 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, Menopausal Genitourinary History of Genitourinary Disor: No Gastrointestinal History of Gastrointestinal Di: Yes (CHOKES EASILY) Gastrointestinal Disorders: Abdominal Hernia, Gastroesophageal Reflux, Diverticulosis, Hiatal Hernia, Ulcer, Gall Bladder Disease, Irritable Bowel Musculoskeletal History of Musculoskeletal Dis: Yes (CHRONIC KNEE AND HIP PAIN, SPINAL STENOSIS ) Musculoskeletal Disorders: Degenerate Disk Disease, Osteoporosis, Arthritis, Chronic Back Pain Endocrine History of Endocrine Disorders: No HEENT History of HEENT Disorders: No Cancer History of Cancer: No Psychosocial History of Psychiatric Problem: Yes Behavioral Health Disorders: Pseudo Seizures, Anxiety Integumentary History of Skin or Integumenta: Yes Skin/Integumentary Disorders: Eczema Blood Transfusions History of Blood Disorders: No Adverse Reaction to a Blood Tr: No Family Medical History Family Medial History: FH: cirrhosis 19 MOTHER FH: liver cancer 19 MOTHER FHx: lung cancer 19 FATHER Hypertension 19 FATHER 19 MOTHER Physical Exam Vital Signs Vital Signs - First Documented 11/03/17 21:12 Temp 97.4 Pulse 81 Resp 18 B/P (MAP) 125/64 (84) Pulse Ox 98 O2 Delivery Nasal Cannula O2 Flow Rate 3.00 Capillary Refill : Less Than 3 Seconds General Appearance: No Apparent Distress, WD/WN Eyes: Bilateral Eye Normal Inspection, Bilateral Eye PERRL, Bilateral Eye EOMI HEENT: PERRL/EOMI, TMs Normal Neck: Full Range of Motion, Normal Inspection Respiratory: Normal Breath Sounds, No Accessory Muscle Use, No Respiratory Distress Cardiovascular: Regular Rate, Rhythm, Normal Peripheral Pulses Gastrointestinal: Normal Bowel Sounds, Non Tender, Soft Extremity: Normal Capillary Refill, Normal Inspection Neurologic/Psychiatric: Alert, Oriented x3 Skin: Normal Color, Warm/Dry Progress/Results/Core Measures Suspected Sepsis Recent Fever Within 48 Hours: No Infection Criteria Present: None New/Unexplained Altered Menta: No Sepsis Screen: No Definite Risk Sepsis Diagnosis: SIRS Temperature:97.4 Pulse: 81 Respiratory Rate: 18 Blood Pressure 125 /64 Mean: 84 Results/Orders My Orders Orders - MCDONALD,PETER J LAMINATOR Ct Angio Chest W (11/03/17 21:34) Saline Lock/Iv-Start (11/03/17 21:34) Ketorolac Injection (Toradol Injection) (11/03/17 22:30) Medications Given in ED Current Medications Medications Dose Ordered Sig/Tino Route Start Time Stop Time Status Last Admin Dose Admin Ketorolac Tromethamine 30 mg ONCE ONCE IVP 11/03/17 22:30 11/03/17 22:31 DC 11/03/17 22:50 30 MG Vital Signs/I&O Vital Sign - Last 12Hours 11/03/17 21:12 Temp 97.4 Pulse 81 Resp 18 B/P (MAP) 125/64 (84) Pulse Ox 98 O2 Delivery Nasal Cannula O2 Flow Rate 3.00 Capillary Refill : Less Than 3 Seconds Blood Pressure Mean: 84 Departure Communication (Admissions) Progress Notes 2258- CT scan per stat read shows no evidence of primary embolus, significant underlying pulmonary emphysema, small to moderate sized pericardial effusion without significant interval change from prior study and a small right pleural effusion. On clinical exam she does not have any distended neck veins, she is not tachycardic or with narrow pulse pressure or hypotension to suggest cardiac. We'll Discharged Home Impression Impression: Primary Impression: Pleuritic chest pain Additional Impression: Fatigue Disposition: 01 HOME, SELF-CARE Condition: Improved Departure-Patient Inst. Decision time for Depature: 22:59 Referrals: ESSIE BABCOCK MD (PCP) Primary Care Physician BRETT JOHNSON (Family) Primary Care Physician Patient Instructions: Pleuritic Chest Pain Add. Discharge Instructions: 1. Follow-up with your doctor this week. Call tomorrow to make an appointment. All discharge instructions reviewed with patient and/or family. Voiced understanding. EREN MCDONALD APRN Nov 03, 2017 21:31
[2017-11-03] MEDS ORDERED: KETOROLAC 30 MG/ML VIAL IVP ONE (22:30)
[2017-11-03 23:10] VITALS: BP 122/70
--- NOTE | 2017-11-04 07:07 | Diagnostic Imaging Report ---
PROCEDURE: CT angiography of the chest with contrast. TECHNIQUE: Multiple contiguous axial images were obtained through the chest after uneventful bolus administration of intravenous contrast. Reconstructed CTA MIP acquisitions were also performed. INDICATION: Increasing weakness and shortness of air. COMPARISON: 09/21/2017. FINDINGS: There is no evidence of acute pulmonary embolus to the segmental division of the pulmonary arteries. Evaluation beyond this is suboptimal secondary to suboptimal opacification by contrast bolus. Heart size is within normal limits. Mild pericardial effusion is again identified. Single prominent lymph node is again noted interposed between the trachea and SVC. It measures 1.2 cm in shortest axis dimension. This is stable compared to prior exam. Note is also made of mild calcified aortic atherosclerosis. Evaluation of lung monae demonstrates small right-sided layering pleural effusion. There is also moderate air trapping consistent with background of COPD. Evaluation for micronodules is suboptimal given respiratory motion artifact. There is punctate micronodule within the right upper lobe measuring approximately 3-4 mm (image 35, series 4). This is stable compared to prior exam. No other pulmonary nodules or masses are seen. Bony structures show no acute abnormalities. Included portion of the upper abdomen are unremarkable. IMPRESSION: 1. No evidence of acute pulmonary embolus. 2. Interval resolution of left-sided pleural effusion. Small effusion on the right persists. 3. Background of moderate emphysematous disease. 4. Small micronodule within the right upper lobe, stable compared to 09/21/2017. 4. Small pericardial effusion. Dictated by: Dictated on workstation # [id number]
== END 2017-11-03 23:10 | disposition home or self-care (01) ==
LOC: EDUNIT# 19:19 → ER 19:20
DX: R07.81 Pleurodynia (principal); R53.83 Other fatigue; J43.9 Emphysema, unspecified; G47.30 Sleep apnea, unspecified; G40.909 Epilepsy, unspecified, not intractable, without status epilepticus; E78.00 Pure hypercholesterolemia, unspecified; I10 Essential (primary) hypertension; K21.9 Gastro-esophageal reflux disease without esophagitis; F41.9 Anxiety disorder, unspecified; M81.0 Age-related osteoporosis without current pathological fracture; F17.210 Nicotine dependence, cigarettes, uncomplicated; Z80.0 Family history of malignant neoplasm of digestive organs; Z80.1 Family history of malignant neoplasm of trachea, bronchus and lung; Z88.8 Allergy status to other drugs, medicaments and biological substances; Z90.49 Acquired absence of other specified parts of digestive tract; Z87.19 Personal history of other diseases of the digestive system; Z98.51 Tubal ligation status; Z90.710 Acquired absence of both cervix and uterus; Z87.59 Personal history of other complications of pregnancy, childbirth and the puerperium; Z86.718 Personal history of other venous thrombosis and embolism; Z87.01 Personal history of pneumonia (recurrent); Z88.6 Allergy status to analgesic agent; Z79.82 Long term (current) use of aspirin
CPT/HCPCS: 71275; 96374

== ENCOUNTER 2017-11-05 23:22 | Inpatient (IN) | payer MEDICAID ==
[~2017-11-05] VITALS: Ht 172.7 cm; Wt 92.6 kg
[2017-11-05 23:52] LABS: BASOPHILS % (AUTO) 0 % (0-10); EOSINOPHILS # (AUTO) 0.1 10^3/uL (0.0-0.3); EOSINOPHILS % (AUTO) 0 % (0-10); HEMATOCRIT 38 % (35-52); HEMOGLOBIN 12.4 G/DL (11.5-16.0); LYMPHOCYTES # (AUTO) 1.9 X 10^3 (1.0-4.0); LYMPHOCYTES % (AUTO) 13 % (12-44); MEAN CORPUSCULAR HEMOGLOBIN 28 PG (25-34); MEAN CORPUSCULAR HGB CONC 33 G/DL (32-36); MEAN CORPUSCULAR VOLUME 86 FL (80-99); MEAN PLATELET VOLUME 8.8 FL (7.4-10.4); MONOCYTES # (AUTO) 1.5 X 10^3 (0.0-1.0); MONOCYTES % (AUTO) 10 % (0-12); NEUTROPHILS # (AUTO) 11.7 X 10^3 (1.8-7.8); NEUTROPHILS % (AUTO) 77 % (42-75); PLATELET COUNT 233 10^3/uL (130-400); RED BLOOD COUNT 4.43 10^6/uL (4.35-5.85); RED CELL DISTRIBUTION WIDTH 18.2 % (10.0-14.5); WHITE BLOOD COUNT 15.2 10^3/uL (4.3-11.0)
[2017-11-06] VITALS (24 sets, daily range): BP systolic 74–152; BP diastolic 44–106
[2017-11-06 00:14] LABS: ALANINE AMINOTRANSFERASE 12 U/L (0-55); ALBUMIN 3.2 GM/DL (3.2-4.5); ALKALINE PHOSPHATASE 97 U/L (40-136); BUN/CREATININE RATIO 10; CALCIUM 9.2 MG/DL (8.5-10.1); CARBON DIOXIDE 26 MMOL/L (21-32); CHLORIDE 97 MMOL/L (98-107); CREATINE KINASE 61 U/L (29-168); CREATININE SERUM 0.91 MG/DL (0.60-1.30); GFR ESTIMATED > 60; GLUCOSE 113 MG/DL (70-105); LIPASE 4 U/L (8-78); MAGNESIUM 1.7 MG/DL (1.8-2.4); POTASSIUM 4.1 MMOL/L (3.6-5.0); SODIUM 135 MMOL/L (135-145); TOTAL PROTEIN 6.6 GM/DL (6.4-8.2)
--- NOTE | 2017-11-06 00:39 | ED General ---
General Chief Complaint: General Problems/Pain Stated Complaint: FEVER Nursing Triage Note: fever, abdominal pain, weakness Nursing Sepsis Screen: No Definite Risk Source of Information: Patient, Family, Old Records Exam Limitations: No Limitations History of Present Illness Date Seen by Provider: Nov 05, 2017 Time Seen by Provider: 23:29 Initial Comments This 52-year-old woman presents to emergency room with complaints of diffuse pain involving her abdomen, back, chest, and headache. She reports having these symptoms for several days since stopping steroid therapy on October 31. She was seen twice in this ER on November 03 for similar symptoms. She had a very thorough workup which also included CT angiogram of the chest. She believes she is going through steroid withdrawal. She has had 2 short bursts of steroids in the recent past which were stopped on October 31 due to side effects. She has not been on long-term steroid therapy. Patient has a history of significant health issues including a pericardial window performed for a pericardial effusion. She denies any vomiting or diarrhea at this time. She reports temperature at home was 102. She has no fever at this time. Family also reports she has had extreme somnolence lately. Patient also reports vitamin D deficiency but she has not obtained replacement medication due to cost. Patient sees Easton Pettit at [facility] for her primary care. Allergies and Home Medications Allergies Coded Allergies: buspirone HCl (Verified Allergy, Unknown, 08/14/15) etodolac (Verified Allergy, Unknown, 08/14/15) NSAIDS (Non-Steroidal Anti-Inflamma (Verified Adverse Reaction, Unknown, 08/14/15) Neuromuscular Blockers, Steroidal (Verified Adverse Reaction, Unknown, ) gabapentin (Verified Adverse Reaction, Unknown, 08/14/15) Home Medications Albuterol Sulfate 1 Puff Puff, 2 PUFF INH QID PRN for SHORTNESS OF BREATH, ( Reported) Albuterol Sulfate 2.5 Mg/3 Ml Vial.neb, 2.5 MG NEB Q4H PRN for SHORTNESS OF BREATH, (Reported) Alprazolam 0.5 Mg Tablet, 0.5 MG PO TID PRN for ANXIETY, (Reported) Amiodarone HCl 200 Mg Tablet, 200 MG PO DAILY, (Reported) Aspirin 325 Mg Tablet.dr, 325 MG PO DAILY, (Reported) Atenolol 100 Mg Tablet, 50 MG PO BID, (Reported) TAKES 1/2 (100MG) TABLET Cetirizine HCl 10 Mg Tablet, 10 MG PO DAILY, (Reported) Cholecalciferol (Vitamin D3) 1,000 Unit Tablet, 1,000 UNIT PO BID, (Reported) Cyanocobalamin 1,000 Mcg/Ml Inj, 1,000 MCG IJ MONTHLY, (Reported) Dicyclomine HCl 20 Mg Tablet, 20 MG PO QID PRN for STOMACH UPSET, (Reported) Docusate Sodium 100 Mg Capsule, 100 MG PO BID PRN for CONSTIPATION-1ST LINE, ( Reported) Fluconazole 150 Mg Tablet, 150 MG PO DAILY for 3 Days, (Reported) 3 TABS FILLED 09-30-17 HOWEVER PATIENT STATES SHE HAS NOT STARTED TAKING THEM YET Fluticasone Propionate 16 Gm [place].susp, 1 SPRAY NSEACH BID, (Reported) Fluticasone/Salmeterol 1 Each Blst.w.dev, 1 PUFF IH BID, (Reported) Guaifenesin/Dextromethorphan 5 Ml Syrup, 10 ML PO Q6H PRN for COUGH, (Reported) Hydrocodone Bit/Acetaminophen 1 Tab Tab, 1 TAB PO Q6H PRN for PAIN-MODERATE, ( Reported) FILLED #24 09-30-17 Ibuprofen 600 Mg Tablet, 600 MG PO Q6H PRN for PAIN-MILD, (Reported) Lactobacillus Acidophilus 1 Each Capsule, 1 CAP PO DAILY, (Reported) [place] 3 Polyunsat Fatty Acids 1,000 Mg Cap, 2,000 MG PO BID, (Reported) Omeprazole 40 Mg Capsule.dr, 40 MG PO DAILY, (Reported) Ranitidine HCl 150 Mg Tablet, 150 MG PO BID, (Reported) Simethicone 125 Mg Tab.chew, 2 TAB PO BID PRN for GAS, (Reported) Tramadol HCl 50 Mg Tablet, 50 MG PO Q6H PRN for PAIN-MODERATE, (Reported) FILLED #60 09-30-17 Constitutional: see HPI, diaphoresis, malaise, weakness EENTM: no symptoms reported Respiratory: cough Cardiovascular: see HPI Gastrointestinal: no symptoms reported Genitourinary: no symptoms reported Musculoskeletal: see HPI Skin: no symptoms reported Psychiatric/Neurological: See HPI Hematologic/Lymphatic: No Symptoms Reported Immunological/Allergic: no symptoms reported Past Lrswwwm-Istfhx-Cocjby Hx Patient Social History Alcohol Use: Denies Use Recreational Drug Use: No Type Used: Cigarettes 2nd Hand Smoke Exposure: Yes Recent Foreign Travel: No Contact w/Someone Who Travel: No Recent Infectious Disease Expo: No Recent Hopitalizations: Yes Immunizations Up To Date Tetanus Booster (TDap): Unknown Date of Pneumonia Vaccine: Jun 07, 2016 Date of Influenza Vaccine: Jun 07, 2016 Seasonal Allergies Seasonal Allergies: Yes Surgeries History of Surgeries: Yes Surgeries: Abdominal, Appendectomy, Cardiac, Section, Gallbladder, Hysterectomy, Oophorectomy Respiratory History of Respiratory Disorde: Yes Respiratory Disorders: Asthma, Pneumonia, Pulmonary Embolism, Sleep Apnea, COPD , Emphysema Currently Using CPAP: No Currently Using BIPAP: No Cardiovascular History of Cardiac Disorders: Yes (Pericardial effusion-S/P PERICARDIAL WINDOW 08/2017) Cardiac Disorders: Atrial Fibrillation, Chronic Edema/Swelling, Deep Vein Thrombosis, High Cholesterol, Hypertension Neurological History of Neurological Disord: Yes (PSEUDO SEIZURES ) Neurological Disorders: Seizure Disorder 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 System : No Hx 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 Disorders: Yes 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, 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, Menopausal Genitourinary History of Genitourinary Disor: No Gastrointestinal History of Gastrointestinal Di: Yes (CHOKES EASILY) Gastrointestinal Disorders: Abdominal Hernia, Gastroesophageal Reflux, Diverticulosis, Hiatal Hernia, Ulcer, Gall Bladder Disease, Irritable Bowel Musculoskeletal History of Musculoskeletal Dis: Yes (CHRONIC KNEE AND HIP PAIN, SPINAL STENOSIS ) Musculoskeletal Disorders: Degenerate Disk Disease, Osteoporosis, Arthritis, Chronic Back Pain Endocrine History of Endocrine Disorders: No HEENT History of HEENT Disorders: No Cancer History of Cancer: No Psychosocial History of Psychiatric Problem: Yes Behavioral Health Disorders: Pseudo Seizures, Anxiety Integumentary History of Skin or Integumenta: Yes Skin/Integumentary Disorders: Eczema Blood Transfusions History of Blood Disorders: No Adverse Reaction to a Blood Tr: No Family Medical History Family Medial History: FH: cirrhosis 19 MOTHER FH: liver cancer 19 MOTHER FHx: lung cancer 19 FATHER Hypertension 19 FATHER 19 MOTHER Physical Exam Vital Signs Vital Signs - First Documented 11/05/17 23:30 Temp 98.3 Pulse 89 Resp 20 B/P (MAP) 127/92 (104) Pulse Ox 95 O2 Delivery Nasal Cannula O2 Flow Rate 2.00 Capillary Refill : Less Than 3 Seconds General Appearance: No Apparent Distress, WD/WN HEENT: PERRL/EOMI, Normal ENT Inspection, Other (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) Neck: Normal Inspection Respiratory: No Accessory Muscle Use, No Respiratory Distress, Wheezing Cardiovascular: Regular Rate, Rhythm, No Edema, No Murmur Gastrointestinal: Normal Bowel Sounds, Soft, Tenderness (generalized) Extremity: Normal Inspection, No Pedal Edema Neurologic/Psychiatric: Alert, Oriented x3, No Motor/Sensory Deficits, Normal Mood/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, cook 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 Norm as Tested Skin: Normal Color, Warm/Dry Focused Exam Evaluation Lactate Level Laboratory Tests 11/06/17 02:40: Lactic Acid Level 0.87 Lactic Acid Level Laboratory Tests Test 11/06/17 02:40 Lactic Acid Level 0.87 MMOL/L (0.50-2.00) Progress/Results/Core Measures Suspected Sepsis Recent Fever Within 48 Hours: No Infection Criteria Present: None New/Unexplained Altered Menta: No Sepsis Screen: No Definite Risk Sepsis Diagnosis: SIRS Temperature:98.3 Pulse: 89 Respiratory Rate: 20 Laboratory Tests 11/05/17 23:45: White Blood Count 15.2H Blood Pressure 127 /92 Mean: 104 Laboratory Tests 11/06/17 02:40: Lactic Acid Level 0.87 Laboratory Tests 11/05/17 23:45: Creatinine 0.91, Platelet Count 233, Total Bilirubin 1.0 Results/Orders Lab Results Laboratory Tests Test 11/05/17 23:45 11/06/17 00:35 11/06/17 02:40 Range/Units White Blood Count 15.2 H 4.3-11.0 10^3/uL Red Blood Count 4.43 4.35-5.85 10^6/uL Hemoglobin 12.4 11.5-16.0 G/DL Hematocrit 38 35-52 % Mean Corpuscular Volume 86 80-99 FL Mean Corpuscular Hemoglobin 28 25-34 PG Mean Corpuscular Hemoglobin Concent 33 32-36 G/DL Red Cell Distribution Width 18.2 H 10.0-14.5 % Platelet Count 233 130-400 10^3/uL Mean Platelet Volume 8.8 7.4-10.4 FL Neutrophils (%) (Auto) 77 H 42-75 % Lymphocytes (%) (Auto) 13 12-44 % Monocytes (%) (Auto) 10 0-12 % Eosinophils (%) (Auto) 0 0-10 % Basophils (%) (Auto) 0 0-10 % Neutrophils # (Auto) 11.7 H 1.8-7.8 X 10^3 Lymphocytes # (Auto) 1.9 1.0-4.0 X 10^3 Monocytes # (Auto) 1.5 H 0.0-1.0 X 10^3 Eosinophils # (Auto) 0.1 0.0-0.3 10^3/uL Basophils # (Auto) 0.0 0.0-0.1 10^3/uL Erythrocyte Sedimentation Rate 67 H 0-30 MM/HR Sodium Level 135 135-145 MMOL/L Potassium Level 4.1 3.6-5.0 MMOL/L Chloride Level 97 L 98-107 MMOL/L Carbon Dioxide Level 26 21-32 MMOL/L Anion Gap 12 5-14 MMOL/L Blood Urea Nitrogen 9 7-18 MG/DL Creatinine 0.91 0.60-1.30 MG/DL Estimat Glomerular Filtration Rate > 60 BUN/Creatinine Ratio 10 Glucose Level 113 H 70-105 MG/DL Calcium Level 9.2 8.5-10.1 MG/DL Magnesium Level 1.7 L 1.8-2.4 MG/DL Total Bilirubin 1.0 0.1-1.0 MG/DL Aspartate Amino Transf (AST/SGOT) 8 5-34 U/L Alanine Aminotransferase (ALT/SGPT) 12 0-55 U/L Alkaline Phosphatase 97 40-136 U/L Total Creatine Kinase 61 29-168 U/L C-Reactive Protein High Sensitivity 45.05 H 0.00-0.50 MG/DL B-Type Natriuretic Peptide 358.5 H <100.0 PG/ML Total Protein 6.6 6.4-8.2 GM/DL Albumin 3.2 3.2-4.5 GM/DL Lipase 4 L 8-78 U/L Urine Color MELITA H Urine Clarity CLEAR Urine pH 7 5-9 Urine Specific [place] 1.010 L 1.016-1.022 Urine Protein 2+ H NEGATIVE Urine Glucose (UA) NEGATIVE NEGATIVE Urine Ketones NEGATIVE NEGATIVE Urine Nitrite NEGATIVE NEGATIVE Urine Bilirubin NEGATIVE NEGATIVE Urine Urobilinogen 1 NORMAL MG/DL Urine Leukocyte Esterase 1+ H NEGATIVE Urine RBC (Auto) 2+ H NEGATIVE Urine RBC 2-5 H /HPF Urine WBC 0-2 /HPF Urine Squamous Epithelial Cells 25-50 H /HPF Urine Crystals NONE /LPF Urine Bacteria TRACE /HPF Urine Casts NONE /LPF Urine Mucus NEGATIVE /LPF Urine Culture Indicated NO Lactic Acid Level 0.87 0.50-2.00 MMOL/L My Orders Orders - NENA ALONSO MD Cbc With Automated Diff (11/05/17 23:39) Comprehensive Metabolic Panel (11/05/17 23:39) Creatine Kinase (11/05/17 23:39) Lipase (11/05/17 23:39) Magnesium (11/05/17 23:39) Ua Culture If Indicated (11/05/17 23:39) Saline Lock/Iv-Start (11/05/17 23:39) Chest 1 View, Ap/Pa Only (11/06/17 00:34) Hs C Reactive Protein (11/06/17 00:39) Ketorolac Injection (Toradol Injection) (11/06/17 01:00) BNP (11/06/17 00:52) Erythrocyte Sedimentation Rate (11/06/17 00:52) Ct Chest/Abdomen/Pelvis W (11/06/17 01:27) Lorazepam Injection (Ativan Injection) (11/06/17 01:30) Iohexol Injection (Omnipaque 350 Mg/Ml 1 (11/06/17 01:45) Ns (Ivpb) (Sodium Chloride 0.9% Ivpb Bag (11/06/17 01:45) Blood Culture (11/06/17 02:36) Lactic Acid Analyzer (11/06/17 02:36) Ns Iv 1000 Ml (Sodium Chloride 0.9%) (11/06/17 02:54) Piperacillin Sodium/Tazobactam (Zosyn Vi (11/06/17 03:00) Ns Iv 1000 Ml (Sodium Chloride 0.9%) (11/06/17 03:39) Vancomycin Injection (Vancomycin Injecti (11/06/17 04:30) Influenza A And B Antigens (11/06/17 04:19) Medications Given in ED Current Medications Medications Dose Ordered Sig/Tino Route Start Time Stop Time Status Last Admin Dose Admin Iohexol 100 ml ONCE ONCE IV 11/06/17 01:45 11/06/17 01:46 DC 11/06/17 02:28 100 ML Ketorolac Tromethamine 30 mg ONCE ONCE IVP 11/06/17 01:00 11/06/17 01:01 DC 11/06/17 01:10 30 MG Lorazepam 0.5 mg ONCE ONCE IVP 11/06/17 01:30 11/06/17 01:31 DC 11/06/17 01:34 0.5 MG Piperacillin Sod/ Tazobactam Sod 4.5 gm/Sodium Chloride 100 ml @ 200 mls/hr ONCE ONCE IV 11/06/17 03:00 11/06/17 03:29 DC 11/06/17 03:02 200 MLS/HR Sodium Chloride 80 ml ONCE ONCE IV 11/06/17 01:45 11/06/17 01:46 DC 11/06/17 02:28 80 ML Sodium Chloride 1,000 ml @ 0 mls/hr Q0M ONCE IV 11/06/17 02:54 11/06/17 02:55 DC 11/06/17 03:02 0 MLS/HR Sodium Chloride 1,000 ml @ 0 mls/hr Q0M ONCE IV 11/06/17 03:39 11/06/17 03:40 DC 11/06/17 03:55 0 MLS/HR Vital Signs/I&O Vital Sign - Last 12Hours 11/05/17 11/06/17 11/06/17 23:30 01:10 02:29 Temp 98.3 98.3 98.9 Pulse 89 Resp 20 B/P (MAP) 127/92 (104) Pulse Ox 95 O2 Delivery Nasal Cannula O2 Flow Rate 2.00 Capillary Refill : Less Than 3 Seconds Blood Pressure Mean: 104 Progress Note #1: Time: 01:30 Progress Note Patient's workup revealed an increasing WBC as well as increasing left pleural effusion. In light of patient's pain, these findings prompted further workup. CRP and sedimentation rate were added and were noted to be significantly elevated and rising rapidly from prior visit. This prompted CT of the chest, abdomen and pelvis to look for possible infectious causes of her pain and rising inflammatory markers. Patient was given Toradol for pain. BNP also has increased 5 fold since her visit on November 03. Progress Note #2: Time: 03:[address] scan was viewed by me and report is pending. There is an increasing effusion in the left lung with what appears to be a consolidation corresponding to the effusion. While awaiting report, blood cultures have been drawn. Sepsis is now a consideration. Zosyn was ordered for empiric antibiotic therapy. Patient has developed to hypotensive on pressures in the interim. IV fluids are being initiated. Progress Note #3: Time: 04:02 Progress Note Patient is receiving Zosyn and IV fluids. Systolic blood pressure has been in the 70s. His second liter of IV fluids has been ordered. CT scan was reviewed and shows pleural effusion on the left with a loculated component. This could be source of infection. Case was reviewed with Dr. Moore at 03:45. Because this possible empyema versus pneumonia is small, he believes we can manage this case at [facility]. Patient will be admitted to the ICU because of her present blood pressure. Progress Note #4: Time: 04:30 Progress Note Patient's blood pressure did not respond to 2 L of IV fluids. Systolic blood pressure is still in the 70s and 80s. Her primary diagnosis is being upgraded to severe sepsis/septic shock. Dr. Moore has been updated and is awaiting her arrival in the ICU. He plans to place a central line upon her arrival. Vancomycin was added to her antibiotic therapy for broader spectrum coverage. Diagnostic Imaging Diagonstic Imaging: Xray Plain Films/CT/US/NM/MRI: chest Comments Chest x-ray viewed by me. Compared with prior. There seems to be progression of left pleural effusion. Report not yet available. Diagonstic Imaging: CT Plain Films/CT/US/NM/MRI: chest, abdomen, pelvis Comments CT chest, abdomen and pelvis viewed by me and [facility] report reviewed. There is a small pericardial effusion which is stable from prior. There are pleural effusions, left greater than right. The left is new when compared with prior. There is question of loculated component of the left pleural effusion. Probable atelectasis at the lung bases with no focal consolidation. Emphysematous changes noted. There is a left adnexal lesion noted with adjacent cystic structure. Further evaluation with ultrasound is suggested by the radiologist. Departure Communication (Admissions) Time/Spoke to Admitting Phy: 03:[address] Kaur Time/Spoke to Consulting Phy: 03:45 Communication/Consulting Dr. Moore Impression Impression: Primary Impression: Septic shock Additional Impressions: Left lower lobe pneumonia Qualified Codes: J18.1 - Lobar pneumonia, unspecified organism Pleural effusion, left right adnexal lesion Pericardial effusion Disposition: ADMITTED INPATIENT Condition: Critical Admissions Decision to Admit Reason: Admit from ER (General) Decision to Admit/Date: Nov 06, 2017 Time/Decision to Admit Time: 03:00 Departure-Patient Inst. Referrals: ESSIE BABCOCK MD (PCP) Primary Care Physician BRETT PETTIT (Family) Primary Care Physician NENA ALONSO MD Nov 06, 2017 00:39
[2017-11-06 00:46] LABS: BILIRUBIN,URINE NEGATIVE (NEGATIVE); CLARITY,URINE CLEAR; COLOR,URINE AMBER; GLUCOSE, URINE (UA) NEGATIVE (NEGATIVE); KETONES,URINE NEGATIVE (NEGATIVE); LEUKOCYTE ESTERASE ,URINE 1+ (NEGATIVE); NITRITE,URINE NEGATIVE (NEGATIVE); PH,URINE 7 (5-9); PROTEIN,URINE 2+ (NEGATIVE); UROBILINOGEN,URINE 1 MG/DL (NORMAL)
[2017-11-06 00:53] LABS: BACTERIA,URINE TRACE /HPF; SQUAMOUS EPITHELIAL CELL,UR 25-50 /HPF; WBC,URINE 0-2 /HPF
[2017-11-06] MEDS ORDERED: KETOROLAC 30 MG/ML VIAL IVP ONE (01:00)
[2017-11-06] MEDS ORDERED: LORazepam INJ 2 MG/ML (ATIVAN) VIAL IVP ONE ×2 (01:30→05:45)
[2017-11-06] MEDS ORDERED: IOHEXOL 350 MG/ML 100 ML (OMNIPAQUE 350) VIAL IV ONE (01:45)
[2017-11-06] MEDS ORDERED: NS 100 ML (IVPB) BAG IV ONE (01:45)
[2017-11-06] MEDS ORDERED: NS IV 1000 ML 1,000 ML IV ONE ×3 (02:54→06:00)
[2017-11-06] MEDS ORDERED: PIPERACILLIN SODIUM/TAZOBACTAM 4.5 GM in NS (IVPB) 100 ML IV ONE (03:00)
[2017-11-06] MEDS ORDERED: VANCOMYCIN INJECTION 1,000 MG in NS (IVPB) 250 ML IV ONE (04:30)
[2017-11-06] MEDS ORDERED: morphine INJ 10 MG/ML 1ML (SYR OR VIAL) ONE (04:56)
[2017-11-06] MEDS ORDERED: LORazepam INJ 2 MG/ML (ATIVAN) VIAL ONE (04:56)
[2017-11-06] MEDS ORDERED: LIDOCAINE 1% INJ 20 ML (XYLOCAINE) VIAL ONE (05:20)
--- NOTE | 2017-11-06 05:36 | Pulmonary Consultation ---
History of Present Illness History of Present Illness Date of Consultation 11/06/17 05:04 Time Seen by Provider: 05:04 Date of Admission History of Present Illness 52yo with hx of recent hospitalization secondary to pericardial effusion and transferred to [place] for pericardial window. Presented to ED secondary to diffuse generalized pain. PT states her symptoms started after stopping prednisone 10/31. No vomiting or diarrhea. Pt was running a fever of 102 at home. I am consulted for ICU management. Flu testing was negative. No sick contacts at home. Allergies and Home Medications Allergies Coded Allergies: buspirone HCl (Verified Allergy, Unknown, 08/14/15) etodolac (Verified Allergy, Unknown, 08/14/15) NSAIDS (Non-Steroidal Anti-Inflamma (Verified Adverse Reaction, Unknown, 08/14/15) Neuromuscular Blockers, Steroidal (Verified Adverse Reaction, Unknown, ) gabapentin (Verified Adverse Reaction, Unknown, 08/14/15) Home Medications Albuterol Sulfate 1 Puff Puff, 2 PUFF INH QID PRN for SHORTNESS OF BREATH, ( Reported) Albuterol Sulfate 2.5 Mg/3 Ml Vial.neb, 2.5 MG NEB Q4H PRN for SHORTNESS OF BREATH, (Reported) Alprazolam 0.5 Mg Tablet, 0.5 MG PO TID PRN for ANXIETY, (Reported) Amiodarone HCl 200 Mg Tablet, 200 MG PO DAILY, (Reported) Aspirin 325 Mg Tablet.dr, 325 MG PO DAILY, (Reported) Atenolol 100 Mg Tablet, 50 MG PO BID, (Reported) TAKES 1/2 (100MG) TABLET Cetirizine HCl 10 Mg Tablet, 10 MG PO DAILY, (Reported) Cholecalciferol (Vitamin D3) 1,000 Unit Tablet, 1,000 UNIT PO BID, (Reported) Cyanocobalamin 1,000 Mcg/Ml Inj, 1,000 MCG IJ MONTHLY, (Reported) Dicyclomine HCl 20 Mg Tablet, 20 MG PO QID PRN for STOMACH UPSET, (Reported) Docusate Sodium 100 Mg Capsule, 100 MG PO BID PRN for CONSTIPATION-1ST LINE, ( Reported) Fluconazole 150 Mg Tablet, 150 MG PO DAILY for 3 Days, (Reported) 3 TABS FILLED 09-30-17 HOWEVER PATIENT STATES SHE HAS NOT STARTED TAKING THEM YET Fluticasone Propionate 16 Gm [place].susp, 1 SPRAY NSEACH BID, (Reported) Fluticasone/Salmeterol 1 Each Blst.w.dev, 1 PUFF IH BID, (Reported) Guaifenesin/Dextromethorphan 5 Ml Syrup, 10 ML PO Q6H PRN for COUGH, (Reported) Hydrocodone Bit/Acetaminophen 1 Tab Tab, 1 TAB PO Q6H PRN for PAIN-MODERATE, ( Reported) FILLED #24 09-30-17 Ibuprofen 600 Mg Tablet, 600 MG PO Q6H PRN for PAIN-MILD, (Reported) Lactobacillus Acidophilus 1 Each Capsule, 1 CAP PO DAILY, (Reported) [place] 3 Polyunsat Fatty Acids 1,000 Mg Cap, 2,000 MG PO BID, (Reported) Omeprazole 40 Mg Capsule.dr, 40 MG PO DAILY, (Reported) Ranitidine HCl 150 Mg Tablet, 150 MG PO BID, (Reported) Simethicone 125 Mg Tab.chew, 2 TAB PO BID PRN for GAS, (Reported) Tramadol HCl 50 Mg Tablet, 50 MG PO Q6H PRN for PAIN-MODERATE, (Reported) FILLED #60 09-30-17 Past Wgqlhar-Rdiowv-Wypphr Hx Patient Social History Alcohol Use: Denies Use Recreational Drug Use: No Type Used: Cigarettes 2nd Hand Smoke Exposure: Yes Recent Foreign Travel: No Contact w/Someone Who Travel: No Recent Infectious Disease Expo: No Recent Hopitalizations: Yes Immunizations Up To Date Tetanus Booster (TDap): Unknown Date of Pneumonia Vaccine: Jun 07, 2016 Date of Influenza Vaccine: Jun 07, 2016 Seasonal Allergies Seasonal Allergies: Yes Surgeries History of Surgeries: Yes Surgeries: Abdominal, Appendectomy, Cardiac, Section, Gallbladder, Hysterectomy, Oophorectomy Respiratory History of Respiratory Disorde: Yes Respiratory Disorders: Asthma, Pneumonia, Pulmonary Embolism, Sleep Apnea, COPD , Emphysema Currently Using CPAP: No Currently Using BIPAP: No Cardiovascular History of Cardiac Disorders: Yes (Pericardial effusion-S/P PERICARDIAL WINDOW 08/2017) Cardiac Disorders: Atrial Fibrillation, Chronic Edema/Swelling, Deep Vein Thrombosis, High Cholesterol, Hypertension Neurological History of Neurological Disord: Yes (PSEUDO SEIZURES ) Neurological Disorders: Seizure Disorder 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 System : No Hx 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 Disorders: Yes 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, 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, Menopausal Genitourinary History of Genitourinary Disor: No Gastrointestinal History of Gastrointestinal Di: Yes (CHOKES EASILY) Gastrointestinal Disorders: Abdominal Hernia, Gastroesophageal Reflux, Diverticulosis, Hiatal Hernia, Ulcer, Gall Bladder Disease, Irritable Bowel Musculoskeletal History of Musculoskeletal Dis: Yes (CHRONIC KNEE AND HIP PAIN, SPINAL STENOSIS ) Musculoskeletal Disorders: Degenerate Disk Disease, Osteoporosis, Arthritis, Chronic Back Pain Endocrine History of Endocrine Disorders: No HEENT History of HEENT Disorders: No Cancer History of Cancer: No Psychosocial History of Psychiatric Problem: Yes Behavioral Health Disorders: Pseudo Seizures, Anxiety Integumentary History of Skin or Integumenta: Yes Skin/Integumentary Disorders: Eczema Blood Transfusions History of Blood Disorders: No Adverse Reaction to a Blood Tr: No Family Medical History Family Medial History: FH: cirrhosis 19 MOTHER FH: liver cancer 19 MOTHER FHx: lung cancer 19 FATHER Hypertension 19 FATHER 19 MOTHER Review of Systems Time Seen by Provider: 05:48 Constitutional: Fever, Chills, Sweats, Weakness, Other Eyes: No: Pain, Vision change, Conjunctivae inflammation, Eyelid inflammation, Other, Redness ENT: No: Ear pain, Ear discharge, Nose pain, Nose discharge, Nose congestion, Mouth pain, Mouth swelling, Throat pain, Throat swelling, Other Respiratory: Shortness of breath, SOB with excertion, Sputum, No: Wheezing Cardiovascular: Palpitations, Paroxysmal Noc. Dyspnea Gastrointestinal: No: Nausea, Vomiting, Abdominal Pain, Diarrhea, Constipation , Melena, Hematochezia, Other Genitourinary: No Dysuria, No Frequency, No Incontinence, No Hematuria, No Retention, No Other Musculoskeletal: neck pain, shoulder pain, arm pain, back pain Neurological: Weakness Exam Exam Vital Signs Date Time Temp Pulse Resp B/P (MAP) Pulse Ox O2 Delivery O2 Flow Rate FiO2 11/06/17 04:44 68 11/06/17 04:40 98.9 66 21 95 Nasal Cannula 2.00 11/06/17 02:29 98.9 11/06/17 01:10 98.3 11/05/17 23:30 98.3 89 20 127/92 (104) 95 Nasal Cannula 2.00 I & O 11/06/17 07:00 Intake Total 2100 ml Balance 2100 ml General Appearance: No Apparent Distress, WD/WN HEENT: PERRL/EOMI, Normal ENT Inspection, Other (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) Neck: Normal Inspection Respiratory: No Accessory Muscle Use, No Respiratory Distress, Wheezing Cardiovascular: Regular Rate, Rhythm, No Edema, No Murmur Capillary Refill: Less Than 3 Seconds Extremity: Normal Inspection, No Pedal Edema Neurologic/Psychiatric: Alert, Oriented x3, No Motor/Sensory Deficits, Normal 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 COPDAE -SVNS -Oxygen hx of recent pericardial effusion with tamponade s/p pericardial window 255 KERVIN CERON DO Nov 06, 2017 05:36
[2017-11-06] MEDS: morphine INJ 4 MG/ML 1 ML (VIAL/SYRINGE) IVP PRN ×3 (05:47→23:16)
[2017-11-06] MEDS ORDERED: NS IV 1000 ML 1,000 ML IV SCH (05:54)
[2017-11-06] MEDS: HYDROCORTISONE 100 MG/2 ML (Solu-CORTEF) VIAL IV SCH ×4 (05:59→23:16)
[2017-11-06] MEDS: NS IV 1000 ML 1,000 ML IV SCH ×3 (05:59→19:36)
--- NOTE | 2017-11-06 05:59 | Pulmonary Procedures ---
Pulmonary Procedures Date of Procedure Date of Service: Nov 06, 2017 Lumen: triple (US guided ) Central Line Procedure: betadine prep, sterile drapes applied, sterile dressing applied Position: internal jugular (R) Anesthesia: Lidocaine Volume Anesthetic (ccs): 5 Complications: none Post Position: sutured, good blood return, position confirmed w/ CXR KERVIN CERON DO Nov 06, 2017 05:59
[2017-11-06] MEDS ORDERED: AZITHROMYCIN INJECTION 500 MG in NS (IVPB) 250 ML IV SCH (06:00)
[2017-11-06] MEDS ORDERED: ONDANSETRON 4 MG/2 ML (SDV) Z0FRAN IV PRN (06:00)
[2017-11-06] MEDS ORDERED: NS IV PRN (06:00)
[2017-11-06 06:01] LABS: BASOPHILS % (AUTO) 0 % (0-10); EOSINOPHILS % (AUTO) 0 % (0-10); HEMATOCRIT 30 % (35-52); HEMOGLOBIN 9.7 G/DL (11.5-16.0); LYMPHOCYTES % (AUTO) 19 % (12-44); MEAN CORPUSCULAR HEMOGLOBIN 28 PG (25-34); MEAN CORPUSCULAR HGB CONC 32 G/DL (32-36); MEAN CORPUSCULAR VOLUME 87 FL (80-99); MONOCYTES # (AUTO) 1.1 X 10^3 (0.0-1.0); MONOCYTES % (AUTO) 10 % (0-12); NEUTROPHILS # (AUTO) 7.1 X 10^3 (1.8-7.8); NEUTROPHILS % (AUTO) 70 % (42-75); PLATELET COUNT 172 10^3/uL (130-400); RED BLOOD COUNT 3.48 10^6/uL (4.35-5.85); RED CELL DISTRIBUTION WIDTH 18.1 % (10.0-14.5); WHITE BLOOD COUNT 10.2 10^3/uL (4.3-11.0)
[2017-11-06] MEDS: POTASSIUM CL 10MEQ/50ML IVPB 50 ML IV SCH ×5 (06:02→07:38)
[2017-11-06] MEDS: KCL 20 MEQ TAB (K-DUR) PO SCH (06:02)
[2017-11-06] MEDS: MAGNESIUM 1 GM/100 ML IVPB 100 ML IV SCH ×3 (06:02→06:10)
[2017-11-06] MEDS: VASOPRESSIN INJECTION 20 UNIT in NS (IVPB) 50 ML IV SCH ×3 (06:10→23:04)
[2017-11-06] MEDS: PHENYLEPHRINE INJECTION 10 MG in NS (IVPB) 250 ML IV SCH ×5 (06:10→23:04)
[2017-11-06] MEDS: NOREPINEPHRINE 4 MG in NS (IVPB) 250 ML IV SCH ×2 (06:10→06:17)
[2017-11-06] MEDS ORDERED: FAMOTIDINE 20 MG (PEPCID) TABLET PO PRN (06:15)
[2017-11-06] MEDS: ENOXAPARIN 40 MG/0.4 ML (LOVENOX) SYR SC SCH (06:17)
[2017-11-06 06:21] LABS: ALANINE AMINOTRANSFERASE 9 U/L (0-55); ALBUMIN 2.6 GM/DL (3.2-4.5); ALKALINE PHOSPHATASE 75 U/L (40-136); BILIRUBIN,TOTAL 0.9 MG/DL (0.1-1.0); BUN/CREATININE RATIO 10; CALCIUM 7.7 MG/DL (8.5-10.1); CARBON DIOXIDE 24 MMOL/L (21-32); CHLORIDE 103 MMOL/L (98-107); CREATININE SERUM 0.81 MG/DL (0.60-1.30); GFR ESTIMATED > 60; GLUCOSE 89 MG/DL (70-105); MAGNESIUM 1.5 MG/DL (1.8-2.4); PHOSPHORUS 3.9 MG/DL (2.3-4.7); POTASSIUM 3.3 MMOL/L (3.6-5.0); SODIUM 135 MMOL/L (135-145); TOTAL PROTEIN 5.2 GM/DL (6.4-8.2)
--- NOTE | 2017-11-06 07:24 | Diagnostic Imaging Report ---
INDICATION: Febrile with chest pain. Comparison with 11/03/2017. FINDINGS: Portable chest shows increasing left basilar pleural effusion with probable left lower lobe infiltrate. The right lung shows mild interstitial prominence which has developed since previous exam. The heart is enlarged. There is no evidence of pulmonary edema. No hilar adenopathy. No pneumothorax. IMPRESSION: 1. Moderate increasing left pleural effusion with probable consolidated infiltrate left lower lobe. 2. Cardiomegaly with increasing interstitial infiltrates suggesting some pulmonary edema. Dictated by: Dictated on workstation # [id number]
[2017-11-06] MEDS: PIPERACILLIN SODIUM/TAZOBACTAM 4.5 GM in NS (IVPB) 100 ML IV SCH ×2 (07:46→16:46)
--- NOTE | 2017-11-06 08:27 | Diagnostic Imaging Report ---
INDICATION: Central line placement. Time of exam: 5:54 AM Correlation is made with prior study earlier the same day. The heart is enlarged. There is a small left effusion. Right-sided line has been placed and has a tip overlying the SVC. No pneumothorax is seen. IMPRESSION: 1. Right-sided line placement. No pneumothorax is identified. 2. Small left effusion. Dictated by: Dictated on workstation # [id number]
--- NOTE | 2017-11-06 08:50 | Diagnostic Imaging Report ---
PROCEDURE: CT chest, abdomen, and pelvis with contrast. INDICATION: Leukocytosis, abdominal pain, increasing pleural effusion, rising inflammatory markers. TECHNIQUE: CT imaging of the chest, abdomen, and pelvis was performed following administration of intravenous contrast. CORRELATION STUDY: CTA chest of 08/12/2018. CT abdomen/pelvis of 08/14/2015. FINDINGS: CT CHEST: The heart size is enlarged with continued pericardial effusion which may be slightly smaller at approximately 6 mm in thickness. There does appear to be increased density which could be reflective of a component of blood or proteinaceous material. Prominent enhancing mediastinal lymph nodes are again demonstrated. The largest has a short axis dimension of approximately 13 mm but does demonstrate a prominent fatty jordan. The thoracic aortic contour is unremarkable. There are rather advanced emphysematous changes about the lung parenchyma. There does appear to be minimal atelectasis about the lung bases, left greater than right. There is the presence of small pleural effusions, left greater than right. The maximum thickness of the left pleural effusion is 15 mm, changed from the prior study. The slight groundglass opacities could be owing to asymmetric areas of hypoventilation. No focal lobar consolidation. CT ABDOMEN and PELVIS: The liver, spleen, pancreas, and adrenal glands are unremarkable. The gallbladder is absent. There is post cholecystectomy dilatation of the common bile duct. The kidneys demonstrate normal enhancement. No hydronephrosis. Very mild atheromatous changes are noted about the abdominal aorta which is nonaneurysmal. The gastrointestinal tract is without obstruction or inflammation. A duodenal diverticulum is present. The uterus is absent. A mass in the right adnexa is again demonstrated and currently measures 5.8 x 3.9 cm, increased in size and previously measuring 5.6 x 3.2 cm. An adjacent, inseparable smaller cystic area is also present. The left adnexa appears unremarkable. The urinary bladder is unremarkable. There is trace free pelvic fluid. There does appear to be mild nonspecific edema within the subcutaneous fat along the lower back. IMPRESSION: CT CHEST: 1. Pericardial effusion, mildly dense, which may be perhaps slightly decreased in size. Given the density, this could be reflective of a hemorrhagic component or proteinaceous and/or inflammatory component. 2. Development of small bilateral pleural effusions, left greater than right. 3. Rather pronounced emphysematous changes about the lung parenchyma. CT ABDOMEN and PELVIS: 1. Trace amount of free pelvic fluid, nonspecific. 2. Slight interval increase in the size of a predominately solid right adnexal mass with an adjacent, inseparable smaller cystic structure. Right ovarian neoplasm or other pathology is not excluded. 3. Post cholecystectomy changes. Stable dilatation of the common bile duct. 4. A preliminary report was provided by Kaleb. Dictated by: Dictated on workstation # [id number]
[2017-11-06] MEDS: VANCOMYCIN 1250 MG/NS 250 ML IVPB IV SCH ×4 (08:56→20:14)
[2017-11-06] MEDS ORDERED: NICOTINE 21 MG (NICODERM) PATCH TD NR (09:00)
[2017-11-06] MEDS: RT-ALBUTEROL/IPRATROPIUM 3 ML (DUONEB) VIAL INH SCH ×4 (10:55→21:50)
--- NOTE | 2017-11-06 11:00 | Diagnostic Imaging Report ---
INDICATION: Left pleural effusion. Sonographic interrogation of the left hemithorax was performed to evaluate volume of pleural fluid. There does appear to be a moderate left effusion. IMPRESSION: Moderate left pleural effusion. Dictated by: Dictated on workstation # [id number]
--- NOTE | 2017-11-06 12:00 | History & Physicial ([facility]) ---
ASHLEY EASON MED STUDENT 11/06/17 1159: HPI History of Present Illness: Patient is a 52 yo F w/ PMH of COPD who presented to the ED 11/05 for R sided chest pain and lethargy. On 09/02/2017 patient had a pericardial effusion w/ intervention at [place]. Was discharged home and developed pneumonia about a week later w/ L sided pleural effusion drained 09/22/2017 and was started on 3 L home O2 at night and prn. Subsequently developed bronchitis and started prednisone 20 mg bid w/ taper. Patient last took steroid dose 10/31. Pain and lethargy then started Wednesday 11/01 and patient presented to the ED Thursday 11/02 and Friday 11/03 w/ current admission through ED on 11/[address] showed R sided pleural effusion. Since starting home O2 patient had weened down to 1 L but recently started need more prn. Patient's pain is a 0/10 at baseline but spikes up to 8/10 with certain movements or deep breaths. Admits productive cough w/ white sputum and RAFFAELE R>L but unchanged from her baseline swelling, denies CP. Date seen by provider: Nov 06, 2017 Time Seen by Provider: 10:00 Attending Physician Krystin Wright MD PCP Jose Sams MD Consult Date of Admission Nov 06, 2017 at 03:58 Home Medications Home Medications Reviewed patient Home Medication Reconciliation Form Allergies Coded Allergies: buspirone HCl (Verified Allergy, Unknown, 08/14/15) etodolac (Verified Allergy, Unknown, 08/14/15) NSAIDS (Non-Steroidal Anti-Inflamma (Verified Adverse Reaction, Unknown, 08/14/15) Neuromuscular Blockers, Steroidal (Verified Adverse Reaction, Unknown, ) gabapentin (Verified Adverse Reaction, Unknown, 08/14/15) BZK-Otuolx-Lvozos Hx Patient Social History Alcohol Use: Denies Use Recreational Drug Use: No Type Used: Cigarettes 2nd Hand Smoke Exposure: Yes Recent Foreign Travel: No Contact w/other who traveled: No Recent Hopitalizations: Yes Recent Infectious Disease Expo: No Physical Abuse Screen: No Sexual Abuse: No Immunizations Up To Date Tetanus Booster (TDap): Unknown Date of Pneumonia Vaccine: Jun 07, 2016 Date of Influenza Vaccine: Jun 07, 2016 Past Medical History HTN Tobaccoism Previous Femoral DVT during Pericardial Effusion, s/p pericardial window 08/2017 Anxiety Depression Epilepsy Chronic Pain COPD Chronic Sinusitis GERD B12 Deficiency Surgical History: Cholecystectomy Hiatal hernia repair Umbilical hernia repair Dental Surgery Appendectomy Total Hysterectomy Section x2 EGD Colonoscopy Family Medical History Family History: FH: cirrhosis 19 MOTHER FH: liver cancer 19 MOTHER FHx: lung cancer 19 FATHER Hypertension 19 FATHER 19 MOTHER Review of Systems ([facility]C) Constitutional: chills, fever, malaise, weakness Respiratory: cough, dyspnea on exertion, No hemoptysis, short of breath Cardiovascular: No chest pain, edema Gastrointestinal: constipation, No diarrhea Genitourinary: No dysuria, No hematuria Musculoskeletal: no symptoms reported Skin: no symptoms reported Psychiatric/Neurological: No Symptoms Reported Reviewed Test Results Reviewed Test Results Lab Laboratory Tests Test 11/05/17 23:45 11/06/17 00:35 11/06/17 02:40 11/06/17 05:51 Range/Units White Blood Count 15.2 H 10.2 4.3-11.0 10^3/uL Red Blood Count 4.43 3.48 L 4.35-5.85 10^6/uL Hemoglobin 12.4 9.7 #L 11.5-16.0 G/DL Hematocrit 38 30 L 35-52 % Mean Corpuscular Volume 86 87 80-99 FL Mean Corpuscular Hemoglobin 28 28 25-34 PG Mean Corpuscular Hemoglobin Concent 33 32 32-36 G/DL Red Cell Distribution Width 18.2 H 18.1 H 10.0-14.5 % Platelet Count 233 172 130-400 10^3/uL Mean Platelet Volume 8.8 9.0 7.4-10.4 FL Neutrophils (%) (Auto) 77 H 70 42-75 % Lymphocytes (%) (Auto) 13 19 12-44 % Monocytes (%) (Auto) 10 10 0-12 % Eosinophils (%) (Auto) 0 0 0-10 % Basophils (%) (Auto) 0 0 0-10 % Neutrophils # (Auto) 11.7 H 7.1 1.8-7.8 X 10^3 Lymphocytes # (Auto) 1.9 2.0 1.0-4.0 X 10^3 Monocytes # (Auto) 1.5 H 1.1 H 0.0-1.0 X 10^3 Eosinophils # (Auto) 0.1 0.0 0.0-0.3 10^3/uL Basophils # (Auto) 0.0 0.0 0.0-0.1 10^3/uL Erythrocyte Sedimentation Rate 67 H 0-30 MM/HR Sodium Level 135 135 135-145 MMOL/L Potassium Level 4.1 3.3 L 3.6-5.0 MMOL/L Chloride Level 97 L 103 98-107 MMOL/L Carbon Dioxide Level 26 24 21-32 MMOL/L Anion Gap 12 8 5-14 MMOL/L Blood Urea Nitrogen 9 8 7-18 MG/DL Creatinine 0.91 0.81 0.60-1.30 MG/DL Estimat Glomerular Filtration Rate > 60 > 60 BUN/Creatinine Ratio 10 10 Glucose Level 113 H 89 70-105 MG/DL Calcium Level 9.2 7.7 L 8.5-10.1 MG/DL Magnesium Level 1.7 L 1.5 L 1.8-2.4 MG/DL Total Bilirubin 1.0 0.9 0.1-1.0 MG/DL Aspartate Amino Transf (AST/SGOT) 8 10 5-34 U/L Alanine Aminotransferase (ALT/SGPT) 12 9 0-55 U/L Alkaline Phosphatase 97 75 40-136 U/L Total Creatine Kinase 61 29-168 U/L C-Reactive Protein High Sensitivity 45.05 H 0.00-0.50 MG/DL B-Type Natriuretic Peptide 358.5 H <100.0 PG/ML Total Protein 6.6 5.2 L 6.4-8.2 GM/DL Albumin 3.2 2.6 L 3.2-4.5 GM/DL Lipase 4 L 8-78 U/L Urine Color MELITA H Urine Clarity CLEAR Urine pH 7 5-9 Urine Specific [place] 1.010 L 1.016-1.022 Urine Protein 2+ H NEGATIVE Urine Glucose (UA) NEGATIVE NEGATIVE Urine Ketones NEGATIVE NEGATIVE Urine Nitrite NEGATIVE NEGATIVE Urine Bilirubin NEGATIVE NEGATIVE Urine Urobilinogen 1 NORMAL MG/DL Urine Leukocyte Esterase 1+ H NEGATIVE Urine RBC (Auto) 2+ H NEGATIVE Urine RBC 2-5 H /HPF Urine WBC 0-2 /HPF Urine Squamous Epithelial Cells 25-50 H /HPF Urine Crystals NONE /LPF Urine Bacteria TRACE /HPF Urine Casts NONE /LPF Urine Mucus NEGATIVE /LPF Urine Culture Indicated NO Lactic Acid Level 0.87 0.50-2.00 MMOL/L Phosphorus Level 3.9 2.3-4.7 MG/DL Test 11/06/17 08:45 Range/Units Radiology CT CHEST: IMPRESSION 1. Pericardial effusion, mildly dense, which may be perhaps slightly decreased in size. Given the density, this could be reflective of a hemorrhagic component or proteinaceous and/or inflammatory component. 2. Development of small bilateral pleural effusions, left greater than right. 3. Rather pronounced emphysematous changes about the lung parenchyma. CT ABDOMEN and PELVIS: 1. Trace amount of free pelvic fluid, nonspecific. 2. Slight interval increase in the size of a predominately solid right adnexal mass with an adjacent, inseparable smaller cystic structure. Right ovarian neoplasm or other pathology is not excluded. 3. Post cholecystectomy changes. Stable dilatation of the common bile duct. US CHEST IMPRESSION: Moderate left pleural effusion. CXR IMPRESSION: 1. Moderate increasing left pleural effusion with probable consolidated infiltrate left lower lobe. 2. Cardiomegaly with increasing interstitial infiltrates suggesting some pulmonary edema. REPEAT CXR IMPRESSION: 1. Right-sided line placement. No pneumothorax is identified. 2. Small left effusion. Physical Exam-([facility]) Physical Exam Vital Signs VS - Last 72 Hours, by Label 11/05/17 11/06/17 11/06/17 11/06/17 23:30 01:10 02:29 04:40 Temp 98.3 98.3 98.9 98.9 Pulse 89 66 Resp 20 21 B/P (MAP) 127/92 (104) Pulse Ox 95 95 O2 Delivery Nasal Cannula Nasal Cannula O2 Flow Rate 2.00 2.00 11/06/17 11/06/17 11/06/17 11/06/17 04:44 04:47 05:00 05:15 Temp 97.0 Pulse 68 67 66 66 Resp 20 20 31 B/P (MAP) 99/79 (86) 89/67 (74) 85/57 (66) Pulse Ox 95 95 96 O2 Delivery Nasal Cannula Nasal Cannula Nasal Cannula O2 Flow Rate 3.00 3.00 3.00 11/06/17 11/06/17 11/06/17 11/06/17 05:30 06:15 06:30 06:31 Pulse 66 63 56 60 Resp 20 20 16 B/P (MAP) 86/51 (63) 74/44 (54) 102/66 (78) Pulse Ox 96 96 98 99 O2 Delivery Nasal Cannula Nasal Cannula Nasal Cannula O2 Flow Rate 3.00 3.00 3.00 FiO2 32 11/06/17 11/06/17 11/06/17 11/06/17 06:50 07:00 07:00 07:01 Pulse 61 61 Resp 14 B/P (MAP) 82/53 (63) Pulse Ox 99 98 O2 Delivery Nasal Cannula Nasal Cannula Nasal Cannula O2 Flow Rate 3.00 3.00 3.00 FiO2 11/06/17 11/06/17 11/06/17 11/06/17 08:00 08:00 09:00 09:00 Temp 98.6 Pulse 59 58 Resp 17 16 B/P (MAP) 131/86 (101) 109/70 (83) Pulse Ox 95 94 95 O2 Delivery Nasal Cannula Nasal Cannula Nasal Cannula O2 Flow Rate 3.00 2.00 3.00 11/06/17 11/06/17 11/06/17 11/06/17 10:00 10:54 11:00 12:00 Pulse 56 58 64 Resp 14 21 15 B/P (MAP) 105/75 (85) 137/88 (104) 97/72 (80) Pulse Ox 96 97 100 95 O2 Delivery Nasal Cannula Nasal Cannula Nasal Cannula Nasal Cannula O2 Flow Rate 3.00 3.00 3.00 3.00 FiO2 Capillary Refill : Less Than 3 Seconds General Appearance: mild distress Eyes: Bilateral Eye EOMI HEENT: PERRL/EOMI Neck: non-tender, full range of motion Respiratory: decreased breath sounds, wheezing Cardiovascular: normal peripheral pulses Peripheral Pulses: 2+ Dorsalis Pedis (R), 2+ Left Dors-Pedis (L), 2+ Radial Pulses (R), 2+ Radial Pulses (L) Gastrointestinal: normal bowel sounds, non tender, soft Extremities: normal range of motion, non-tender 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, no motor/sensory deficits, alert, normal mood/affect, oriented x 3 Clinical Quality Measures DVT/VTE Risk/Contraindication: Risk Factor Score Per Nursin RFS Level Per Nursing on Admit: 4+=Very High Copy Copies To 1: Easton ROSEN Assessment/Plan Assessment/Plan Admission Dx Bilateral Pleural Effusion, Previous known L sided pleural effusion w/ drainage 09/22 CT scan demonstrates bilateral pleural effusions L>R Previously requiring home O2 qhs and prn Currently on 4 L NC CXR consolidation in LLL WBC 15.2 on 11/05 Plan Bilateral pleural effusions/pneumonia Duoneb q4h Zosyn q8h Vancomycin bid Mg qam Indigestion Famotidine prn Pain Toradol qrh prn Morphine q2h prn Anxiety Xanax q6h prn Electrolytes Replace prn Dispo Continue current ICU care KRYSTIN WRIGHT MD 11/06/17 2202: HPI History of Present Illness: Source: patient, RN/MD, old records Exam Limitations: no limitations Home Medications Allergies Coded Allergies: buspirone HCl (Verified Allergy, Unknown, 08/14/15) etodolac (Verified Allergy, Unknown, 08/14/15) NSAIDS (Non-Steroidal Anti-Inflamma (Verified Adverse Reaction, Unknown, 08/14/15) Neuromuscular Blockers, Steroidal (Verified Adverse Reaction, Unknown, ) gabapentin (Verified Adverse Reaction, Unknown, 08/14/15) SWC-Nkupcf-Ticbko Hx Past Medical History Pericardial effusion with tamponade requiring pericardial window HTN Chronic pain Family Medical History Family History: FH: cirrhosis 19 MOTHER FH: liver cancer 19 MOTHER FHx: lung cancer 19 FATHER Hypertension 19 FATHER 19 MOTHER Review of Systems ([facility]C) EENTM: no symptoms reported Genitourinary: no symptoms reported Musculoskeletal: no symptoms reported Skin: no symptoms reported, No lesions, No rash Psychiatric/Neurological: No Symptoms Reported Physical Exam-([facility]) Physical Exam Vital Signs VS - Last 72 Hours, by Label 11/05/17 11/06/17 11/06/17 11/06/17 23:30 01:10 02:29 04:40 Temp 98.3 98.3 98.9 98.9 Pulse 89 66 Resp 20 21 B/P (MAP) 127/92 (104) Pulse Ox 95 95 O2 Delivery Nasal Cannula Nasal Cannula O2 Flow Rate 2.00 2.00 11/06/17 11/06/17 11/06/17 11/06/17 04:44 04:47 05:00 05:15 Temp 97.0 Pulse 68 67 66 66 Resp 20 20 31 B/P (MAP) 99/79 (86) 89/67 (74) 85/57 (66) Pulse Ox 95 95 96 O2 Delivery Nasal Cannula Nasal Cannula Nasal Cannula O2 Flow Rate 3.00 3.00 3.00 11/06/17 11/06/17 11/06/17 11/06/17 05:30 06:15 06:30 06:31 Pulse 66 63 56 60 Resp 20 20 16 B/P (MAP) 86/51 (63) 74/44 (54) 102/66 (78) Pulse Ox 96 96 98 99 O2 Delivery Nasal Cannula Nasal Cannula Nasal Cannula O2 Flow Rate 3.00 3.00 3.00 FiO2 32 11/06/17 11/06/17 11/06/17 11/06/17 06:50 07:00 07:00 07:01 Pulse 61 61 Resp 14 B/P (MAP) 82/53 (63) Pulse Ox 99 98 O2 Delivery Nasal Cannula Nasal Cannula Nasal Cannula O2 Flow Rate 3.00 3.00 3.00 FiO2 11/06/17 11/06/17 11/06/17 11/06/17 08:00 08:00 09:00 09:00 Temp 98.6 Pulse 59 58 Resp 17 16 B/P (MAP) 131/86 (101) 109/70 (83) Pulse Ox 95 94 95 O2 Delivery Nasal Cannula Nasal Cannula Nasal Cannula O2 Flow Rate 3.00 2.00 3.00 11/06/17 11/06/17 11/06/17 11/06/17 10:00 10:54 11:00 12:00 Pulse 56 58 64 Resp 14 21 15 B/P (MAP) 105/75 (85) 137/88 (104) 97/72 (80) Pulse Ox 96 97 100 95 O2 Delivery Nasal Cannula Nasal Cannula Nasal Cannula Nasal Cannula O2 Flow Rate 3.00 3.00 3.00 3.00 FiO2 11/06/17 11/06/17 11/06/17 11/06/17 12:00 12:00 13:00 13:00 Temp 97.3 Pulse 59 62 Resp 17 B/P (MAP) 105/64 (78) Pulse Ox 94 95 O2 Delivery Nasal Cannula Nasal Cannula O2 Flow Rate 2.00 3.00 11/06/17 11/06/17 11/06/17 11/06/17 14:00 14:43 15:00 16:00 Pulse 61 66 4 Resp 10 23 15 B/P (MAP) 128/85 (99) 137/81 (99) 132/72 (92) Pulse Ox 97 98 96 95 O2 Delivery Nasal Cannula Nasal Cannula Nasal Cannula Nasal Cannula O2 Flow Rate 3.00 3.00 3.00 3.00 11/06/17 11/06/17 11/06/17 11/06/17 16:00 16:00 17:00 18:00 Temp 96.6 Pulse 64 69 62 Resp 16 17 B/P (MAP) 152/106 (121) 121/74 (90) Pulse Ox 96 95 96 O2 Delivery Nasal Cannula Nasal Cannula Nasal Cannula O2 Flow Rate 3.00 3.00 3.00 11/06/17 11/06/17 19:00 19:05 Pulse 67 Pulse Ox 97 O2 Delivery Nasal Cannula O2 Flow Rate 3.00 General Appearance: mild distress HEENT: PERRL/EOMI Neck: non-tender, supple Respiratory: decreased breath sounds (R bases, no crackles) Cardiovascular: normal peripheral pulses, regular rate, rhythm, no murmur Gastrointestinal: normal bowel sounds, non tender, soft Back: no CVA tenderness Extremities: normal range of motion, non-tender 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, no motor/sensory deficits, alert, normal mood/affect, oriented x 3 Skin: normal color, warm/dry Lymphatic: no adenopathy Copy Copies To 1: Easton ROSEN Assessment/Plan Assessment/Plan (1) Severe sepsis Status: Acute Assessment & Plan: - Fluid resuscitation completed, vital signs stable - Broad spectrum antibiotics D2 - Cultures pending - Concerns for empyema, procedure tomorrow (2) Pleural effusion Status: Acute Assessment & Plan: - IR to drain tomorrow for samples (3) Hypokalemia Status: Acute Assessment & Plan: - Replace and repeat bmp (4) Hypomagnesemia Status: Acute Assessment & Plan: - Replace and repeat in AM (5) Normocytic anemia Status: Acute Assessment & Plan: - No signs of acute bleeding, likely 2/2 sepsis vs hemodilution - Iron studies pending (6) COPD exacerbation Status: Acute Assessment & Plan: - MAT protocol (7) DVT prophylaxis Status: Acute Assessment & Plan: - Holding lovenox for procedure in AM, ASHLEY Feldman STUDENT Nov 06, 2017 11:59 KRYSTIN WRIGHT MD Nov 06, 2017 22:02
[2017-11-06] MEDS ORDERED: KETO10TA PO (15:01)
[2017-11-06] MEDS ORDERED: IBUP-1773 PO (15:01)
[2017-11-06] MEDS ORDERED: GUAI400T71 PO (15:04)
[2017-11-06] MEDS: KETOROLAC 15 MG/ML VIAL IVP PRN (16:46)
[2017-11-06] MEDS: ALPRAZolam 0.5 MG (XANAX) TAB PO PRN ×2 (16:47→23:16)
[2017-11-06] MEDS ORDERED: INFLUENZA TRIvalent 2017-2018 0.5 ML/45 MCG SYR IM ONE (17:30)
[2017-11-06] MEDS: inSUlin (REGULAR) HUMAN 1 UNIT/0.01 ML (CHARGE PER UNIT) SC SCH (23:10)
[2017-11-07] VITALS (12 sets, daily range): BP systolic 109–172; BP diastolic 61–98
[2017-11-07] MEDS ORDERED: CATHETER FLUSH 10 ML SYR IV PRN (01:15)
[2017-11-07] MEDS: PIPERACILLIN SODIUM/TAZOBACTAM 4.5 GM in NS (IVPB) 100 ML IV SCH ×3 (01:37→16:38)
[2017-11-07] MEDS: RT-ALBUTEROL/IPRATROPIUM 3 ML (DUONEB) VIAL INH SCH ×4 (01:59→13:06)
[2017-11-07] MEDS: NS IV 1000 ML 1,000 ML IV SCH (02:12)
[2017-11-07] MEDS: PHENYLEPHRINE INJECTION 10 MG in NS (IVPB) 250 ML IV SCH (02:44)
[2017-11-07 03:54] LABS: BASOPHILS % (AUTO) 0 % (0-10); EOSINOPHILS % (AUTO) 0 % (0-10); HEMATOCRIT 28 % (35-52); HEMOGLOBIN 8.9 G/DL (11.5-16.0); LYMPHOCYTES # (AUTO) 0.5 X 10^3 (1.0-4.0); MEAN CORPUSCULAR HEMOGLOBIN 28 PG (25-34); MEAN CORPUSCULAR HGB CONC 32 G/DL (32-36); MEAN CORPUSCULAR VOLUME 88 FL (80-99); MEAN PLATELET VOLUME 9.6 FL (7.4-10.4); MONOCYTES # (AUTO) 0.4 X 10^3 (0.0-1.0); NEUTROPHILS # (AUTO) 6.9 X 10^3 (1.8-7.8); PLATELET COUNT 161 10^3/uL (130-400); RED BLOOD COUNT 3.16 10^6/uL (4.35-5.85); RED CELL DISTRIBUTION WIDTH 17.4 % (10.0-14.5); WHITE BLOOD COUNT 7.9 10^3/uL (4.3-11.0)
[2017-11-07 04:01] LABS: BUN/CREATININE RATIO 7; CALCIUM 7.6 MG/DL (8.5-10.1); CARBON DIOXIDE 19 MMOL/L (21-32); CHLORIDE 109 MMOL/L (98-107); GFR ESTIMATED > 60; GLUCOSE 204 MG/DL (70-105); LYMPHOCYTES % (AUTO) 8 % (12-44); MAGNESIUM 2.1 MG/DL (1.8-2.4); MONOCYTES % (AUTO) 6 % (0-12); NEUTROPHILS % (AUTO) 86 % (42-75); PHOSPHORUS 2.2 MG/DL (2.3-4.7); POTASSIUM 3.4 MMOL/L (3.6-5.0); SODIUM 141 MMOL/L (135-145)
[2017-11-07] MEDS: POTASSIUM CL 10MEQ/50ML IVPB 50 ML IV SCH (04:09)
[2017-11-07] MEDS: MAGNESIUM 1 GM/100 ML IVPB 100 ML IV SCH (04:09)
[2017-11-07] MEDS: KCL 20 MEQ TAB (K-DUR) PO SCH (04:10)
--- NOTE | 2017-11-07 04:37 | Pulmonary Progress Note ---
Subjective Time Seen by Provider: 04:43 Subjective/Events-last exam Pt is doing better she is off levophed gtt Exam Exam Vital Signs Date Time Temp Pulse Resp B/P (MAP) Pulse Ox O2 Delivery O2 Flow Rate FiO2 11/07/17 04:00 96 Nasal Cannula 3.00 11/07/17 04:00 70 23 138/78 (98) 96 Nasal Cannula 3.00 11/07/17 03:00 66 14 111/61 (78) 96 Nasal Cannula 3.00 11/07/17 02:00 65 16 109/69 (82) 100 Nasal Cannula 3.00 11/07/17 01:59 95 Nasal Cannula 3.00 11/07/17 01:00 62 15 114/67 (83) 98 Nasal Cannula 3.00 11/07/17 01:00 62 11/07/17 00:00 97.4 11/07/17 00:00 62 15 116/70 (85) 98 Nasal Cannula 3.00 11/07/17 00:00 96 Nasal Cannula 3.00 11/06/17 23:00 66 19 130/81 (97) 94 Nasal Cannula 3.00 11/06/17 22:00 66 19 127/81 (96) 95 Nasal Cannula 3.00 11/06/17 21:50 96 Nasal Cannula 3.00 11/06/17 21:00 65 21 118/78 (91) 96 Nasal Cannula 3.00 11/06/17 20:00 96 Nasal Cannula 3.00 11/06/17 20:00 64 18 133/86 (102) 96 Nasal Cannula 3.00 11/06/17 19:45 97.0 11/06/17 19:05 97 Nasal Cannula 3.00 11/06/17 19:00 67 11/06/17 19:00 66 21 123/74 (90) 95 Nasal Cannula 3.00 11/06/17 18:00 62 17 121/74 (90) 96 Nasal Cannula 3.00 11/06/17 17:00 69 16 152/106 (121) 95 Nasal Cannula 3.00 11/06/17 16:00 96 Nasal Cannula 3.00 11/06/17 16:00 96.6 64 11/06/17 16:00 4 15 132/72 (92) 95 Nasal Cannula 3.00 11/06/17 15:00 66 23 137/81 (99) 96 Nasal Cannula 3.00 11/06/17 14:43 98 Nasal Cannula 3.00 11/06/17 14:00 61 10 128/85 (99) 97 Nasal Cannula 3.00 11/06/17 13:00 62 11/06/17 13:00 59 17 105/64 (78) 95 Nasal Cannula 3.00 11/06/17 12:00 94 Nasal Cannula 2.00 11/06/17 12:00 97.3 11/06/17 12:00 64 15 97/72 (80) 95 Nasal Cannula 3.00 11/06/17 11:00 58 21 137/88 (104) 100 Nasal Cannula 3.00 11/06/17 10:54 97 Nasal Cannula 3.00 11/06/17 10:00 56 14 105/75 (85) 96 Nasal Cannula 3.00 11/06/17 09:00 58 16 109/70 (83) 95 Nasal Cannula 3.00 11/06/17 09:00 98.6 11/06/17 08:00 94 Nasal Cannula 2.00 11/06/17 08:00 59 17 131/86 (101) 95 Nasal Cannula 3.00 11/06/17 07:01 Nasal Cannula 3.00 11/06/17 07:00 61 11/06/17 07:00 61 14 82/53 (63) 98 Nasal Cannula 3.00 11/06/17 06:50 99 Nasal Cannula 3.00 11/06/17 06:31 60 99 32 11/06/17 06:30 56 16 102/66 (78) 98 Nasal Cannula 3.00 11/06/17 06:15 63 20 74/44 (54) 96 Nasal Cannula 3.00 11/06/17 05:30 66 20 86/51 (63) 96 Nasal Cannula 3.00 11/06/17 05:15 66 31 85/57 (66) 96 Nasal Cannula 3.00 11/06/17 05:00 66 20 89/67 (74) 95 Nasal Cannula 3.00 11/06/17 04:47 97.0 67 20 99/79 (86) 95 Nasal Cannula 3.00 11/06/17 04:44 68 11/06/17 04:40 98.9 66 21 95 Nasal Cannula 2.00 I & O 11/07/17 07:00 Intake Total 2410 ml Output Total 2950 ml Balance -540 ml General Appearance: No Apparent Distress, WD/WN HEENT: PERRL/EOMI, Normal ENT Inspection, Other (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) Neck: Normal Inspection Respiratory: No Accessory Muscle Use, No Respiratory Distress, Wheezing Cardiovascular: Regular Rate, Rhythm, No Edema, No Murmur Capillary Refill: Less Than 3 Seconds Peripheral Pulses: 2+ Dorsalis Pedis (R), 2+ Left Dors-Pedis (L), 2+ Radial Pulses (R), 2+ Radial Pulses (L) Gastrointestinal: normal bowel sounds, non tender, soft Extremity: Normal Inspection, No Pedal Edema Neurologic/Psychiatric: Alert, Oriented x3, No Motor/Sensory Deficits, 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 COPDAE -SVNS -Oxygen Hypokalemia/hypophos -replace hx of recent pericardial effusion with tamponade s/p pericardial window 233 Clinical Quality Measures DVT/VTE Risk/Contraindication: Risk Factor Score Per Nursin RFS Level Per Nursing on Admit: 4+=Very High KERVIN CERON DO Nov 07, 2017 04:37
[2017-11-07] MEDS ORDERED: POTASSIUM PHOSPHATE INJ 30 MM in NS (IVPB) 250 ML IV ONE (04:45)
[2017-11-07] MEDS ORDERED: KCL 20 MEQ TAB (K-DUR) PO ONE ×3 (06:00→09:00)
[2017-11-07] MEDS: inSUlin (REGULAR) HUMAN 1 UNIT/0.01 ML (CHARGE PER UNIT) SC SCH ×4 (06:24→20:51)
--- NOTE | 2017-11-07 07:25 | Diagnostic Imaging Report ---
INDICATION: Shortness of breath. Portable chest 3:47 AM FINDINGS: There is cardiomegaly. There is left basilar infiltrate or atelectasis with questionable effusion. Right lung is clear. IMPRESSION: Left basilar consolidation unchanged from previous day. Dictated by: Dictated on workstation # [id number]
[2017-11-07 08:31] LABS: PROTHROMBIN TIME PATIENT 13.7 SEC (12.2-14.7)
[2017-11-07] MEDS: ALPRAZolam 0.5 MG (XANAX) TAB PO PRN ×3 (08:37→21:22)
[2017-11-07] MEDS: HYDROCORTISONE 100 MG/2 ML (Solu-CORTEF) VIAL IV SCH ×2 (08:39→21:22)
[2017-11-07] MEDS: VANCOMYCIN 1250 MG/NS 250 ML IVPB IV SCH ×4 (08:39→22:08)
[2017-11-07] MEDS ORDERED: LIDOCAINE 1% INJ 20 ML (XYLOCAINE) VIAL ONE (08:56)
[2017-11-07] MEDS: morphine INJ 4 MG/ML 1 ML (VIAL/SYRINGE) IVP PRN (08:57)
[2017-11-07] MEDS ORDERED: NICOTINE PATCH REMOVAL TP SCH (09:00)
--- NOTE | 2017-11-07 09:58 | Pre-Procedure Progress Note ---
Pre-Procedure Progress Note H&P Reviewed The H&P was reviewed, patient examined and no changes noted. Date H&P Reviewed: Nov 07, 2017 Time H&P Reviewed: 08:45 BRANDAN MANRIQUE MD Nov 07, 2017 09:58
[2017-11-07] MEDS ORDERED: LIDOCAINE 1% INJ 20 ML (XYLOCAINE) VIAL INJ ONE (10:00)
--- NOTE | 2017-11-07 10:01 | Diagnostic Imaging Report ---
INDICATION: Pleural effusion. Patient presents for ultrasound-guided thoracentesis. The procedure was performed at the patient's bedside. Informed written consent was obtained. Timeout procedure was performed. Ultrasound imaging over the left posterior thorax was performed to evaluate for appropriate entry site. The posterior thorax was then prepped and draped in usual sterile fashion. Small amount of 1% lidocaine was utilized for local anesthesia. A 6 Kinyarwanda thoracentesis catheter was advanced into the posterior pleural space on the left side. Total of 550 mL of clear yellowish fluid was removed. Catheter was withdrawn and hemostasis was obtained using manual compression. The patient tolerated the procedure well. Post procedure chest radiograph was without evidence of a complicating feature. IMPRESSION: Successful ultrasound-guided left-sided thoracentesis obtaining 550 mL of fluid. Fluid will be sent to lab for appropriate testing. Dictated by: Dictated on workstation # [id number]
--- NOTE | 2017-11-07 10:02 | Diagnostic Imaging Report ---
INDICATION: Left thoracentesis. Time of exam 9:39 AM Correlation is made to prior study earlier same day. The heart remains enlarged. There has been reduction in size of left pleural effusion, status post thoracentesis. No pneumothorax is identified. Pulmonary vascularity is unremarkable. Right IJ line has tip overlying the SVC. IMPRESSION: Reduction in left pleural effusion, status post thoracentesis. No pneumothorax is identified. Dictated by: Dictated on workstation # [id number]
[2017-11-07 10:31] LABS: GLUCOSE,BODY FLUID 161 MG/DL; LDH,BODY FLUID 73 U/L; TOTAL PROTEIN,BODY FLUID 2.5 G/DL
--- NOTE | 2017-11-07 10:52 | Progress Note (SOAP) ---
ASHLEY EASON MED STUDENT 11/07/17 1052: Subjective Subjective/Events-last exam Patient is a 52 yo F admitted for bilateral pleural effusion and LLL consolidation. Patient was seen this AM after her L sided pleural centesis and was very anxious. States she is feeling better today, just shaky from the procedure. Her R sided chest pain is improved. No other questions or concerns. Review of Systems Date Seen by Provider: Nov 07, 2017 Time Seen by Provider: 09:15 General: Chills Pulmonary: Cough, Pleuritic Chest Pain Cardiovascular: No: Chest Pain Gastrointestinal: Nausea, Abdominal Pain, No: Vomiting Genitourinary: No Dysuria Objective Exam Last Set of Vital Signs Vital Signs Date Time Temp Pulse Resp B/P (MAP) Pulse Ox O2 Delivery O2 Flow Rate FiO2 11/07/17 09:00 70 14 139/98 (112) Nasal Cannula 3.00 11/07/17 08:03 96.0 11/07/17 06:56 97 11/06/17 10:54 Capillary Refill : Less Than 3 Seconds I&O Intake and Output 11/07/17 00:00 Intake Total 4300 ml Output Total 2950 ml Balance 1350 ml Intake Oral 1950 ml IV Total 2350 ml Output Urine Total 2950 ml Daily Weight Change No General: Alert, Oriented X3, Mild Distress, Other HEENT: Atraumatic, EOMI Neck: Supple Lungs: Clear to Auscultation Heart: Regular Rate, Normal S1, Normal S2, No Murmurs Abdomen: Normal Bowel Sounds, Soft, No Tenderness Extremities: No Clubbing, No Cyanosis Psych/Mental Status: Mental Status NL Results/Procedures Lab Laboratory Tests 11/06/17 22:27: Glucometer 237H 11/07/17 03:15: White Blood Count 7.9, Red Blood Count 3.16L, Hemoglobin 8.9L, Hematocrit 28L, Mean Corpuscular Volume 88, Mean Corpuscular Hemoglobin 28, Mean Corpuscular Hemoglobin Concent 32, Red Cell Distribution Width 17.4H, Platelet Count 161, Mean Platelet Volume 9.6, Neutrophils (%) (Auto) 86H, Lymphocytes (%) (Auto) 8L , Monocytes (%) (Auto) 6, Eosinophils (%) (Auto) 0, Basophils (%) (Auto) 0, Neutrophils # (Auto) 6.9, Lymphocytes # (Auto) 0.5L, Monocytes # (Auto) 0.4, Eosinophils # (Auto) 0.0, Basophils # (Auto) 0.0, Sodium Level 141, Potassium Level 3.4L, Chloride Level 109H, Carbon Dioxide Level 19L, Anion Gap 13, Blood Urea Nitrogen 5L, Creatinine 0.70, Estimat Glomerular Filtration Rate > 60, BUN/ Creatinine Ratio 7, Glucose Level 204H, Calcium Level 7.6L, Phosphorus Level 2.2L, Magnesium Level 2.1 11/07/17 08:05: Prothrombin Time 13.7, INR Comment 1.0, Activated Partial Thromboplast Time 38H 11/07/17 09:14: Body Fluid Glucose 161, Body Fluid Total Protein 2.5, Body Fluid Lactate Dehydrogenase 73 Microbiology 11/06/17 Blood Culture - Preliminary, Resulted No growth 11/06/17 Influenza Types A,B Antigen (RACHEL) - Final, Complete Radiology CT CHEST: IMPRESSION 1. Pericardial effusion, mildly dense, which may be perhaps slightly decreased in size. Given the density, this could be reflective of a hemorrhagic component or proteinaceous and/or inflammatory component. 2. Development of small bilateral pleural effusions, left greater than right. 3. Rather pronounced emphysematous changes about the lung parenchyma. CT ABDOMEN and PELVIS: 1. Trace amount of free pelvic fluid, nonspecific. 2. Slight interval increase in the size of a predominately solid right adnexal mass with an adjacent, inseparable smaller cystic structure. Right ovarian neoplasm or other pathology is not excluded. 3. Post cholecystectomy changes. Stable dilatation of the common bile duct. US CHEST IMPRESSION: Moderate left pleural effusion. CXR 11/06 0345 IMPRESSION: 1. Moderate increasing left pleural effusion with probable consolidated infiltrate left lower lobe. 2. Cardiomegaly with increasing interstitial infiltrates suggesting some pulmonary edema. CXR 11/06 0501 IMPRESSION: 1. Right-sided line placement. No pneumothorax is identified. 2. Small left effusion. CXR 11/07 0300 IMPRESSION: Left basilar consolidation unchanged from previous day. CXR 11/07 924 IMPRESSION: Reduction in left pleural effusion, status post thoracentesis. No pneumothorax is identified. Procedures L sided pleural centesis this AM Assessment/Plan Assessment/Plan Admission Dx Bilateral pleural effusions and LLL consolidation. Plan O2 sats upper 90s on 3 L NC CXR - R lung looks normal, no change on L L sided pleural centesis - 550 mL, send specimen for labs Duoneb q4h Zosyn q8h Vancomycin bid Mg qam Indigestion Famotidine prn Pain Toradol qrh prn Morphine q2h prn Anxiety Xanax q6h prn Electrolytes Replace prn Dispo Continue current ICU care Clinical Quality Measures DVT/VTE Risk/Contraindication: Risk Factor Score Per Nursin RFS Level Per Nursing on Admit: 4+=Very High KRYSTIN WRIGHT MD 11/07/173: Subjective Subjective/Events-last exam Just got back from procedure. States that she is having shaking since the procedure and having alot of anxiety. Assessment/Plan Assessment/Plan (1) Pleural effusion, left Status: Acute Assessment & Plan: - Pleuracentesis today, fluid results pending - Dr Moore consulted - Continue to titrate oxygen as tolerated (2) COPD exacerbation Status: Acute Assessment & Plan: - MAT protocol - Continue antibiotics (3) Hypokalemia Status: Acute (4) Hypomagnesemia Status: Resolved (5) Normocytic anemia Status: Acute Assessment & Plan: - Iron studies pending, will replace with Infed if iron def (6) Severe sepsis Status: Resolved (7) DVT prophylaxis Status: Acute Assessment & Plan: - Restart Lovenox tomorrow ASHLEY EASON MED STUDENT Nov 07, 2017 10:52 KRYSTIN WRIGHT MD Nov 07, 2017 19:13
[2017-11-07 11:16] LABS: BODY FLUID SOURCE PLEURAL
[2017-11-07 11:17] LABS: BODY FLUID APPEARENCE CLEAR; BODY FLUID COLOR YELLOW; BODY FLUID RBC COUNT 190 /uL; BODY FLUID WBC TOTAL COUNT 278 /uL
[2017-11-07 11:25] LABS: BF OTHER CELLS 0 %; LYMPHOCYTES,BODY FLUID 22 %
[2017-11-07] MEDS: KETOROLAC 15 MG/ML VIAL IVP PRN ×2 (11:55→21:29)
[2017-11-07] MEDS ORDERED: NICOTINE 21 MG (NICODERM) PATCH TD NR (16:00)
[2017-11-07] MEDS: RT-ALBUTEROL/IPRATROPIUM 3 ML (DUONEB) VIAL INH PRN ×2 (19:07→22:54)
[2017-11-07] MEDS ORDERED: TROUGH ORDER-PHARMACY XX NR (20:00)
[2017-11-07] MEDS ORDERED: NON-FORMULARY MEDICATION 1 EA EA (Atenolol 50 MG) PO SCH (21:00)
[2017-11-07] MEDS ORDERED: ATENOLOL 50 MG (TENORMIN) TAB ONE (21:16)
[2017-11-07] MEDS: ATENOLOL 50 MG (TENORMIN) TAB PO SCH (21:24)
[2017-11-08] MEDS: PIPERACILLIN SODIUM/TAZOBACTAM 4.5 GM in NS (IVPB) 100 ML IV SCH ×2 (00:38→10:15)
[2017-11-08 00:47] VITALS: BP 176/88
[2017-11-08] MEDS: RT-ALBUTEROL/IPRATROPIUM 3 ML (DUONEB) VIAL INH SCH ×4 (01:38→15:05)
[2017-11-08 04:08] VITALS: BP 159/76
[2017-11-08 04:23] LABS: BASOPHILS % (AUTO) 0 % (0-10); EOSINOPHILS % (AUTO) 0 % (0-10); HEMATOCRIT 31 % (35-52); HEMOGLOBIN 9.9 G/DL (11.5-16.0); LYMPHOCYTES # (AUTO) 0.9 X 10^3 (1.0-4.0); LYMPHOCYTES % (AUTO) 9 % (12-44); MEAN CORPUSCULAR HEMOGLOBIN 28 PG (25-34); MEAN CORPUSCULAR HGB CONC 32 G/DL (32-36); MEAN CORPUSCULAR VOLUME 89 FL (80-99); MEAN PLATELET VOLUME 9.7 FL (7.4-10.4); MONOCYTES # (AUTO) 0.4 X 10^3 (0.0-1.0); NEUTROPHILS # (AUTO) 9.2 X 10^3 (1.8-7.8); PLATELET COUNT 207 10^3/uL (130-400); RED BLOOD COUNT 3.53 10^6/uL (4.35-5.85); RED CELL DISTRIBUTION WIDTH 17.8 % (10.0-14.5); WHITE BLOOD COUNT 10.5 10^3/uL (4.3-11.0)
[2017-11-08 04:29] LABS: NEUTROPHILS % (AUTO) 86 % (42-75)
[2017-11-08 04:30] LABS: MONOCYTES % (AUTO) 5 % (0-12)
[2017-11-08 04:47] LABS: BUN/CREATININE RATIO 5; CALCIUM 8.2 MG/DL (8.5-10.1); CARBON DIOXIDE 22 MMOL/L (21-32); CHLORIDE 109 MMOL/L (98-107); CREATININE SERUM 0.74 MG/DL (0.60-1.30); GFR ESTIMATED > 60; GLUCOSE 116 MG/DL (70-105); MAGNESIUM 1.8 MG/DL (1.8-2.4); PHOSPHORUS 3.3 MG/DL (2.3-4.7); POTASSIUM 4.1 MMOL/L (3.6-5.0); SODIUM 142 MMOL/L (135-145)
[2017-11-08] MEDS: inSUlin (REGULAR) HUMAN 1 UNIT/0.01 ML (CHARGE PER UNIT) SC SCH ×2 (05:06→11:16)
[2017-11-08] MEDS: ENOXAPARIN 40 MG/0.4 ML (LOVENOX) SYR SC SCH (05:28)
--- NOTE | 2017-11-08 06:30 | Pulmonary Progress Note ---
Subjective Time Seen by Provider: 06:29 Subjective/Events-last exam c/o SOB. Exam Exam Vital Signs Date Time Temp Pulse Resp B/P (MAP) Pulse Ox O2 Delivery O2 Flow Rate FiO2 11/08/17 04:08 96.2 61 18 159/76 (103) 95 Nasal Cannula 3.00 11/08/17 01:38 95 Nasal Cannula 1.50 11/08/17 01:00 54 11/08/17 00:47 97.8 68 17 176/88 (117) 96 Nasal Cannula 3.00 11/07/17 21:00 Nasal Cannula 2.00 11/07/17 19:55 97.4 58 18 172/86 (114) 96 Nasal Cannula 3.00 11/07/17 19:07 98 Nasal Cannula 1.50 11/07/17 19:00 69 11/07/17 15:51 97.4 70 18 150/75 (100) 94 Nasal Cannula 3.00 11/07/17 13:06 97 Nasal Cannula 2.00 11/07/17 13:00 72 11/07/17 12:00 99 Nasal Cannula 3.00 11/07/17 09:00 70 14 139/98 (112) Nasal Cannula 3.00 11/07/17 08:03 96.0 11/07/17 08:00 99 Nasal Cannula 3.00 11/07/17 08:00 61 14 148/84 (105) Nasal Cannula 3.00 11/07/17 07:00 62 9 135/88 (104) Nasal Cannula 3.00 11/07/17 07:00 59 11/07/17 06:56 97 Nasal Cannula 3.00 I & O 11/08/17 07:00 Intake Total 3032.5 ml Output Total 2600 ml Balance 432.5 ml General Appearance: No Apparent Distress, WD/WN HEENT: PERRL/EOMI, Normal ENT Inspection, Other (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) Neck: Normal Inspection Respiratory: No Accessory Muscle Use, No Respiratory Distress, Wheezing Cardiovascular: Regular Rate, Rhythm, No Edema, No Murmur Capillary Refill: Less Than 3 Seconds Peripheral Pulses: 2+ Dorsalis Pedis (R), 2+ Left Dors-Pedis (L), 2+ Radial Pulses (R), 2+ Radial Pulses (L) Gastrointestinal: normal bowel sounds, non tender, soft Extremity: Normal Inspection, No Pedal Edema Neurologic/Psychiatric: Alert, Oriented x3, No Motor/Sensory Deficits, Normal Mood/Affect, elevated guard II-XII Norm as Tested Skin: Normal Color, Warm/Dry Results Lab Laboratory Tests 11/07/17 03:15 11/08/17 03:05 Assessment/Plan Assessment/Plan Sepsis - improving -vanco, zosyn Small left pleural effusion s/p pleural effusion -monitor COPDAE -SVNS -Oxygen Hypokalemia/hypophos -replace hx of recent pericardial effusion with tamponade s/p pericardial window 232 Clinical Quality Measures DVT/VTE Risk/Contraindication: Risk Factor Score Per Nursin RFS Level Per Nursing on Admit: 4+=Very High KERVIN CERON DO Nov 08, 2017 06:30
[2017-11-08 08:00] VITALS: BP 144/82
[2017-11-08] MEDS ORDERED: RT-ADVAIR HFA 115/21 MCG PER PUFF IH SCH (08:00)
--- OUTSIDE RECORDS SUMMARY | 2017-11-08 08:17 | XMS REPORT | Continuity of Care Document ---
Author Author [employer] Organization [facility] Address Unknown Phone Unavailable Care Team Providers Care Supervisor Accounts Receivable Name Role Phone [employer] Unavailable Unavailable Problems Medications Allergies, Adverse Reactions, Alerts Immunizations Results Vital Signs Encounters Location Location Details Encounter Type Encounter Number Reason For Visit Attending Provider ADM Date DC Date Status Source O "" BRETT JOHNSON [facility] Procedures Plan of Care Social History Assessment and Plan Family History Advance Directives Functional Status
[2017-11-08] MEDS ORDERED: NICOTINE PATCH REMOVAL TP SCH (08:59)
[2017-11-08] MEDS ORDERED: NICOTINE 21 MG (NICODERM) PATCH TD SCH (09:00)
[2017-11-08] MEDS ORDERED: AMIODARONE 200 MG (CORDARONE) TAB PO SCH (09:00)
[2017-11-08] MEDS: HYDROCORTISONE 100 MG/2 ML (Solu-CORTEF) VIAL IV SCH (09:27)
[2017-11-08] MEDS: ATENOLOL 50 MG (TENORMIN) TAB PO SCH (09:27)
[2017-11-08] MEDS: VANCOMYCIN 1250 MG/NS 250 ML IVPB IV SCH ×2 (09:28)
[2017-11-08] MEDS: ALPRAZolam 0.5 MG (XANAX) TAB PO PRN (10:15)
[2017-11-08] MEDS ORDERED: DOCUSATE SODIUM 100 MG (COLACE) CAP PO NR (11:00)
--- NOTE | 2017-11-08 11:48 | Discharge Summary ---
Diagnosis/Chief Complaint Date of Admission Nov 06, 2017 at 3:58 am Date of Discharge Nov 08, 2017 Admission Diagnosis Admission Diagnosis Severe Sepsis Left Pleural effusion COPD Exacerbation Hypokalemia Hypomagnesemia Normocytic Anemia Incidental Left adnexal cyst Recent Pericardial effusion with window by CT surgery in [place] Discharge Diagnosis See Above Chief Complaint/HPI Chief Complaint/HPI Patient is a 52 yo F w/ PMH of COPD who presented to the ED 11/05 for R sided chest pain and lethargy. On 09/02/2017 patient had a pericardial effusion w/ intervention at [facility]. Was discharged home and developed pneumonia about a week later w/ L sided pleural effusion drained 09/22/2017 and was started on 3 L home O2 at night and prn. Subsequently developed bronchitis and started prednisone 20 mg bid w/ taper. Patient last took steroid dose 10/31. Pain and lethargy then started Wednesday 11/01 and patient presented to the ED Thursday 11/02 and Friday 11/03 w/ current admission through ED on 11/[address] showed R sided pleural effusion. Since starting home O2 patient had weened down to 1 L but recently started need more prn. Patient's pain is a 0/10 at baseline but spikes up to 8/10 with certain movements or deep breaths. Admits productive cough w/ white sputum and RAFFAELE R>L but unchanged from her baseline swelling, denies CP. Discharge Summary-Simple/Stand Procedures L sided pleural centesis this AM Consultations Discharge Physical Examination Allergies: Coded Allergies: buspirone HCl (Verified Allergy, Unknown, 08/14/15) etodolac (Verified Allergy, Unknown, 08/14/15) NSAIDS (Non-Steroidal Anti-Inflamma (Verified Adverse Reaction, Unknown, 08/14/15) Neuromuscular Blockers, Steroidal (Verified Adverse Reaction, Unknown, ) gabapentin (Verified Adverse Reaction, Unknown, 08/14/15) Vitals & I&Os Vital Sign - Last 12Hours Date Time Temp Pulse Resp B/P (MAP) Pulse Ox O2 Delivery O2 Flow Rate FiO2 11/08/17 10:09 94 Nasal Cannula 1.50 11/08/17 08:00 96.6 71 18 144/82 (102) 11/06/17 10:54 Intake and Output 11/08/17 00:00 Intake Total 1520 ml Output Total 1200 ml Balance 320 ml General Appearance: Alert, Oriented X3, Cooperative, No Acute Distress HEENT: Mucous Memb Moist/Amber Respiratory: Clear to Auscultation, Normal Air Movement Cardiovascular: Regular Rate, No Murmurs Abdominal: Normal Bowel Sounds, Soft, No Tenderness, No Hepatosplenomegaly, No Masses Extremities: No Edema, No Tenderness/Swelling Skin: No Rashes, Other (Wound is C/D/I) Neuro: Normal Speech, Cranial Nerves 3-12 NL Psych/Mental Status: Mental Status NL, Mood NL Hospital Course See final discharge diagnosis. Pending Labs Pleural effusion cultures pending Radiology Reviewed CT CHEST: IMPRESSION 1. Pericardial effusion, mildly dense, which may be perhaps slightly decreased in size. Given the density, this could be reflective of a hemorrhagic component or proteinaceous and/or inflammatory component. 2. Development of small bilateral pleural effusions, left greater than right. 3. Rather pronounced emphysematous changes about the lung parenchyma. CT ABDOMEN and PELVIS: 1. Trace amount of free pelvic fluid, nonspecific. 2. Slight interval increase in the size of a predominately solid right adnexal mass with an adjacent, inseparable smaller cystic structure. Right ovarian neoplasm or other pathology is not excluded. 3. Post cholecystectomy changes. Stable dilatation of the common bile duct. US CHEST IMPRESSION: Moderate left pleural effusion. CXR 11/06 0345 IMPRESSION: 1. Moderate increasing left pleural effusion with probable consolidated infiltrate left lower lobe. 2. Cardiomegaly with increasing interstitial infiltrates suggesting some pulmonary edema. CXR 11/06 0501 IMPRESSION: 1. Right-sided line placement. No pneumothorax is identified. 2. Small left effusion. CXR 11/07 0300 IMPRESSION: Left basilar consolidation unchanged from previous day. CXR 11/07 0925 IMPRESSION: Reduction in left pleural effusion, status post thoracentesis. No pneumothorax is identified. Discussion & Recommendations Severe Sepsis: Patient came in with pain and was found to have left pleural effusion with concerns for empyema. She then developed hypotension in the ER and received high volume fluid resuscitation and was started on Zosyn. Blood pressure was stabilized in the ICU. She then underwent Pleuracentesis to rule out empyema. Vital signs stable and sepsis resolved at time of discharge. Left Pleural effusion: See Above. COPD Exacerbation: Oxygen was tapered off rapidly. Patient was placed on MAT protocol and respiratory status was stable throughout admission. Hypokalemia: resolved at discharge Hypomagnesemia: resolved at discharge Normocytic Anemia: Normal iron studies. Likely due to chronic disease. PCP needs to reviewed colon cancer screening and make sure patient has had colonoscopy. Incidental Left adnexal cyst: Needs follow up ultrasound as outpatient to evaluate cyst Recent Pericardial effusion with window by CT surgery in [place] Discharge Condition at discharge Stable Instructions to patient/family Please see electronic discharge instructions given to patient. Discharge Medications Reviewed and agree with Discharge Medication list on patient's Discharge Instruction sheet Clinical Quality Measures DVT/VTE Risk/Contraindication: Risk Factor Score Per Nursin RFS Level Per Nursing on Admit: 4+=Very High Copy Copies To 1: JESSIKA, KRYSTIN Wisdom MD Nov 08, 2017 11:48
--- NOTE | 2017-11-08 11:53 | Discharge Instructions ---
Discharge [facility] Discharge Medications New, Converted or Re-Newed RX: Other (No new scripts) Continued Medications: Albuterol Sulfate (Proair Hfa) 1 Puff Puff 2 PUFF INH QID PRN for SHORTNESS OF BREATH, INHALER Albuterol Sulfate (Albuterol Sulfate) 2.5 Mg/3 Ml Vial.neb 2.5 MG NEB Q4H PRN for SHORTNESS OF BREATH, EA Alprazolam (Alprazolam) 0.5 Mg Tablet 0.5 MG PO TID PRN for ANXIETY, TAB Amiodarone HCl (Amiodarone HCl) 200 Mg Tablet 200 MG PO DAILY, TAB Aspirin (Aspirin EC) 325 Mg Tablet.dr 325 MG PO DAILY, TAB Atenolol (Atenolol) 100 Mg Tablet 50 MG PO BID, TAB TAKES 1/2 (100MG) TABLET Cetirizine HCl (Cetirizine HCl) 10 Mg Tablet 10 MG PO DAILY, TAB Cholecalciferol (Vitamin D3) (Vitamin D3) 1,000 Unit Tablet 1000 UNIT PO BID, TAB Cyanocobalamin (Cyanocobalamin Injection) 1,000 Mcg/Ml Inj 1000 MCG IJ MONTHLY, VIAL Dicyclomine HCl (Dicyclomine HCl) 20 Mg Tablet 20 MG PO QID PRN for STOMACH UPSET, TAB Docusate Sodium (Colace) 100 Mg Capsule 100 MG PO BID PRN for CONSTIPATION-1ST LINE, CAP Fluticasone Propionate (Fluticasone Propionate) 16 Gm [place].susp 1 SPRAY NSEACH BID, EA Fluticasone/Salmeterol (Advair 500-50 Diskus) 1 Each Blst.w.dev 1 PUFF IH BID, EA Guaifenesin (Guaifenesin) 400 Mg Tablet 400 MG PO Q4H PRN for CONGESTION, TAB Guaifenesin/Dextromethorphan (Guaifenesin Dm Syrup) 5 Ml Syrup 10 ML PO Q6H PRN for COUGH, ML Hydrocodone Bit/Acetaminophen (Hydrocodone/Acetaminophen 5/325mg Tablet) 1 Tab Tab 1 TAB PO Q6H PRN for PAIN-MODERATE, TAB Ibuprofen (Ibuprofen) 600 Mg Tablet 600 MG PO Q6H PRN for PAIN-MILD, TAB Lactobacillus Acidophilus (Acidophilus) 1 Each Capsule 1 CAP PO DAILY, CAP [place]clay 3 Polyunsat Fatty Acids (Fish Oil 1,000 mg Capsule) 1,000 Mg Cap 2000 MG PO BID, CAP Omeprazole (Omeprazole) 40 Mg Capsule.dr 40 MG PO DAILY, CAP Ranitidine HCl (Ranitidine HCl) 150 Mg Tablet 150 MG PO BID, TAB Simethicone (Gas-X) 125 Mg Tab.chew 2 TAB PO BID PRN for GAS, TAB Discontinued Medications: Ketorolac Tromethamine (Ketorolac Tromethamine) 10 Mg Tablet 10 MG PO Q6H PRN for PAIN-MODERATE, TAB Tramadol HCl (Tramadol HCl) 50 Mg Tablet 50 MG PO Q6H PRN for PAIN-BREAKTHROUGH, TAB Patient Instructions Goal/Follow Up Appt: You have a follow up appt with Easton Pettit On Nov 15 @ 2PM Patient Instructions: - Make sure you stay active - Keep wounds clean and dry, ok to clean with mild soap and water [facility] to [facility]: - Increasing shortness of breath - Chest pain - Unable to tolerate medications Activity & Diet Discharge Diet: Low Sodium Diet, Cardiac Diet Activity as Tolerated: Yes Copy Copies To 1: Easton ROSEN HOLLY R MD Nov 08, 2017 11:53 am
[2017-11-08 12:00] VITALS: BP 171/79
[2017-11-08] MEDS ORDERED: INFLUENZA TRIvalent 2017-2018 0.5 ML/45 MCG SYR IM ONE (15:11)
== END 2017-11-08 16:15 | disposition home or self-care (01) | DRG 872 ==
LOC: EDUNIT# 23:22 → ER 23:25 → ICU 11-06 03:58 → 4TH 11-07 12:41
PROVIDERS: ADMIT Family Medicine; ATTEND Family Medicine
PROC: 0W9B3ZZ Drainage of Left Pleural Cavity, Percutaneous Approach (ICD-10-PCS; principal; 2017-11-06)
PROC: 02HV33Z Insertion of Infusion Device into Superior Vena Cava, Percutaneous Approach (ICD-10-PCS; 2017-11-06)
DX: A41.9 Sepsis, unspecified organism (principal); R65.20 Severe sepsis without septic shock; J43.9 Emphysema, unspecified; J90 Pleural effusion, not elsewhere classified; E87.6 Hypokalemia; E83.42 Hypomagnesemia; D64.9 Anemia, unspecified; E83.39 Other disorders of phosphorus metabolism; F17.210 Nicotine dependence, cigarettes, uncomplicated; J45.909 Unspecified asthma, uncomplicated; K30 Functional dyspepsia; Z86.718 Personal history of other venous thrombosis and embolism; G40.909 Epilepsy, unspecified, not intractable, without status epilepticus; E78.00 Pure hypercholesterolemia, unspecified; I10 Essential (primary) hypertension; I48.91 Unspecified atrial fibrillation; K21.9 Gastro-esophageal reflux disease without esophagitis; K57.30 Diverticulosis of large intestine without perforation or abscess without bleeding; Z23 Encounter for immunization; K44.9 Diaphragmatic hernia without obstruction or gangrene; M81.0 Age-related osteoporosis without current pathological fracture; F41.9 Anxiety disorder, unspecified; F32.9 Major depressive disorder, single episode, unspecified
CPT/HCPCS: 32555; 36415; 71045; 71046; 71260; 71275; 74177; 76604; 80048; 80053; 80202; 80306; 81000; 82150; 82533; 82550; 82553; 82728; 82945; 82962; 83540; 83605; 83615; 83690; 83735; 83880; 84100; 84157; 84443; 84484; 85025; 85610; 85652; 85730; 86141; 87040; 87070; 87077; 87081; 87205; 87804; 89051; 93005; 93041; 94640; 94760; 96361; 96365; 96374; 96375

== ENCOUNTER 2017-11-23 01:36 | Emergency (ER) | payer MEDICAID ==
[~2017-11-23] VITALS: Ht 172.7 cm; Wt 92.6 kg
[~2017-11-23 01:36] MED LIST changes: +GUAI400T71 PO
--- OUTSIDE RECORDS SUMMARY | 2017-11-23 01:42 | XMS REPORT | Continuity of Care Document ---
Author Author [employer] Organization [facility] Address Unknown Phone Unavailable Care Team Providers Care Track Production Engineer Name Role Phone [employer] Unavailable Unavailable Problems Medications Allergies, Adverse Reactions, Alerts Immunizations Results Vital Signs Encounters Location Location Details Encounter Type Encounter Number Reason For Visit Attending Provider ADM Date DC Date Status Source O "" BRETT JOHNSON [facility] Procedures Plan of Care Social History Assessment and Plan Family History Advance Directives Functional Status
[2017-11-23] MEDS ORDERED: NS IV 500 ML 500 ML IV ONE (02:09)
[2017-11-23] MEDS ORDERED: oxyCODONE/APAP 10/325MG (PERCOCET 10) TABLET PO ONE (02:15)
[2017-11-23] MEDS ORDERED: ONDANSETRON 4 MG/2 ML (SDV) Z0FRAN IVP ONE (02:15)
[2017-11-23] MEDS ORDERED: RT-ALBUTEROL/IPRATROPIUM 3 ML (DUONEB) VIAL INH ONE (02:15)
--- NOTE | 2017-11-23 02:18 | ED Chest Pain ---
General Chief Complaint: Cough/Cold/Flu Symptoms Stated Complaint: CHEST,NECK & SHOULDER PAIN,RT FOOT SWOLLEN Source: patient, family Exam Limitations: no limitations History of Present Illness Date Seen by Provider: Nov 23, 2017 Time Seen by Provider: 02:08 Initial Comments Patient presents to ER by private conveyance with her significant other and a chief complaint that she woke up tonight about an hour prior to arrival with chest pain, mild shortness of breath and coughing. She's had nausea off and on but she attributes that to whenever she uses the hydrocodone. She says the hydrocodone makes her very nauseated. She still having a little pain for which she is been using hydrocodone in her chest. Historically a few weeks back she had a pneumonia and pericardial effusion. She since then his had to have a pleural effusion drained it was causing pain and cough and subsequent. She is not been on steroids for 4 weeks and she has not been on antibiotics for 2 weeks. She has been followed up by her primary care physician. Her blood pressure has been high is typically using a beta prema but they have started her on Cozaar. She has not started on Cozaar because she feels they did not discuss the risks, benefits and alternatives with her and so she doesn't trust it yet. She smokes cigarettes has diabetes and hypertension. She has no coronary artery disease and she had a stress test in August that was negative. Her chest pain is on the left side radiates to her left arm and is not necessarily accompanied with nausea, sweats. Patient also was noted last several days she's had some swelling and tenderness to palpation or calf and right foot. She is not on diuretics or blood thinners. She does take aspirin. Allergies and Home Medications Allergies Coded Allergies: buspirone HCl (Verified Allergy, Unknown, 08/14/15) etodolac (Verified Allergy, Unknown, 08/14/15) NSAIDS (Non-Steroidal Anti-Inflamma (Verified Adverse Reaction, Unknown, 08/14/15) Neuromuscular Blockers, Steroidal (Verified Adverse Reaction, Unknown, ) gabapentin (Verified Adverse Reaction, Unknown, 08/14/15) Home Medications Albuterol Sulfate 1 Puff Puff, 2 PUFF INH QID PRN for SHORTNESS OF BREATH, ( Reported) Albuterol Sulfate 2.5 Mg/3 Ml Vial.neb, 2.5 MG NEB Q4H PRN for SHORTNESS OF BREATH, (Reported) Alprazolam 0.5 Mg Tablet, 0.5 MG PO TID PRN for ANXIETY, (Reported) Amiodarone HCl 200 Mg Tablet, 200 MG PO DAILY, (Reported) Aspirin 325 Mg Tablet.dr, 325 MG PO DAILY, (Reported) Atenolol 100 Mg Tablet, 50 MG PO BID, (Reported) TAKES 1/2 (100MG) TABLET Cetirizine HCl 10 Mg Tablet, 10 MG PO DAILY, (Reported) Cholecalciferol (Vitamin D3) 1,000 Unit Tablet, 1,000 UNIT PO BID, (Reported) Cyanocobalamin 1,000 Mcg/Ml Inj, 1,000 MCG IJ MONTHLY, (Reported) Dicyclomine HCl 20 Mg Tablet, 20 MG PO QID PRN for STOMACH UPSET, (Reported) Docusate Sodium 100 Mg Capsule, 100 MG PO BID PRN for CONSTIPATION-1ST LINE, ( Reported) Fluticasone Propionate 16 Gm [place].susp, 1 SPRAY NSEACH BID, (Reported) Fluticasone/Salmeterol 1 Each Blst.w.dev, 1 PUFF IH BID, (Reported) Guaifenesin 400 Mg Tablet, 400 MG PO Q4H PRN for CONGESTION, (Reported) Guaifenesin/Dextromethorphan 5 Ml Syrup, 10 ML PO Q6H PRN for COUGH, (Reported) Hydrocodone Bit/Acetaminophen 1 Tab Tab, 1 TAB PO Q6H PRN for PAIN-MODERATE, ( Reported) Ibuprofen 600 Mg Tablet, 600 MG PO Q6H PRN for PAIN-MILD, (Reported) Lactobacillus Acidophilus 1 Each Capsule, 1 CAP PO DAILY, (Reported) Seth 3 Polyunsat Fatty Acids 1,000 Mg Cap, 2,000 MG PO BID, (Reported) Omeprazole 40 Mg Capsule.dr, 40 MG PO DAILY, (Reported) Ranitidine HCl 150 Mg Tablet, 150 MG PO BID, (Reported) Simethicone 125 Mg Tab.chew, 2 TAB PO BID PRN for GAS, (Reported) Patient Home Medication List Home Medication List Reviewed: Yes Review of Systems Constitutional: chills, No diaphoresis, No fever, No malaise EENTM: No Blurred Vision, No Double Vision Respiratory: Cough, Shortness of Air (mild), Denies Wheezing Cardiovascular: Chest Pain Gastrointestinal: Denies Abdomen Distended, Denies Abdominal Pain Genitourinary: Denies Burning, Denies Discharge, Denies Drainage Musculoskeletal: No back pain, No joint pain Skin: No pruritus, No rash Psychiatric/Neurological: Denies Headache, Denies Numbness, Denies Paresthesia Past Shxykzi-Pqlakl-Jlveao Hx Patient Social History Alcohol Use: Denies Use Recreational Drug Use: No Smoking Status: Current Everyday Smoker Type Used: Cigarettes 2nd Hand Smoke Exposure: Yes Recent Foreign Travel: No Contact w/Someone Who Travel: No Recent Hopitalizations: Yes Immunizations Up To Date Tetanus Booster (TDap): Unknown Date of Pneumonia Vaccine: Jun 07, 2016 Date of Influenza Vaccine: Nov 08, 2017 Seasonal Allergies Seasonal Allergies: Yes Surgeries History of Surgeries: Yes Surgeries: Abdominal, Appendectomy, Cardiac, Section, Gallbladder, Hysterectomy, Oophorectomy Respiratory History of Respiratory Disorde: Yes Respiratory Disorders: Asthma, Pneumonia, Pulmonary Embolism, Sleep Apnea, COPD , Emphysema Currently Using CPAP: No Currently Using BIPAP: No Cardiovascular History of Cardiac Disorders: Yes (Pericardial effusion-S/P PERICARDIAL WINDOW 08/2017) Cardiac Disorders: Atrial Fibrillation, Chronic Edema/Swelling, Deep Vein Thrombosis, High Cholesterol, Hypertension Neurological History of Neurological Disord: Yes (PSEUDO SEIZURES ) Neurological Disorders: Seizure Disorder 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 System Hx 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 Disorders: Yes Female 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 Disorders: Ovarian Cyst [employer] History: Hysterectomy, 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, Menopausal Genitourinary History of Genitourinary Disor: No Gastrointestinal History of Gastrointestinal Di: Yes (CHOKES EASILY) Gastrointestinal Disorders: Abdominal Hernia, Gastroesophageal Reflux, Diverticulosis, Hiatal Hernia, Ulcer, Gall Bladder Disease, Irritable Bowel Musculoskeletal History of Musculoskeletal Dis: Yes (CHRONIC KNEE AND HIP PAIN, SPINAL STENOSIS ) Musculoskeletal Disorders: Degenerate Disk Disease, Osteoporosis, Arthritis, Chronic Back Pain Endocrine History of Endocrine Disorders: No HEENT History of HEENT Disorders: No Cancer History of Cancer: No Psychosocial History of Psychiatric Problem: Yes Behavioral Health Disorders: Pseudo Seizures, Anxiety Integumentary History of Skin or Integumenta: Yes Skin/Integumentary Disorders: Eczema Blood Transfusions History of Blood Disorders: No Adverse Reaction to a Blood Tr: No Family Medical History Family Medial History: FH: cirrhosis 19 MOTHER FH: liver cancer 19 MOTHER FHx: lung cancer 19 FATHER Hypertension 19 FATHER 19 MOTHER Physical Exam Vital Signs Vital Signs - First Documented Capillary Refill : General Appearance: No Apparent Distress, WD/WN, Anxious HEENT: PERRL/EOMI, Normal ENT Inspection, Pharynx Normal Neck: Full Range of Motion, Normal Inspection, Non Tender, Supple Respiratory: Chest Non Tender, No Accessory Muscle Use, No Respiratory Distress , Decreased Breath Sounds Cardiovascular: Regular Rate, Rhythm, No Edema Gastrointestinal: Non Tender, Soft Neurologic/Psychiatric: Alert, Oriented x3, No Motor/Sensory Deficits Skin: Normal Color, Warm/Dry Progress/Results/Core Measures Results/Orders Lab Results Laboratory Tests Test 11/23/17 02:00 Range/Units White Blood Count 10.4 4.3-11.0 10^3/uL Red Blood Count 4.94 4.35-5.85 10^6/uL Hemoglobin 14.0 11.5-16.0 G/DL Hematocrit 42 35-52 % Mean Corpuscular Volume 85 80-99 FL Mean Corpuscular Hemoglobin 28 25-34 PG Mean Corpuscular Hemoglobin Concent 33 32-36 G/DL Red Cell Distribution Width 18.5 H 10.0-14.5 % Platelet Count 237 130-400 10^3/uL Mean Platelet Volume 8.8 7.4-10.4 FL Neutrophils (%) (Auto) 70 42-75 % Lymphocytes (%) (Auto) 19 12-44 % Monocytes (%) (Auto) 10 0-12 % Eosinophils (%) (Auto) 1 0-10 % Basophils (%) (Auto) 1 0-10 % Neutrophils # (Auto) 7.3 1.8-7.8 X 10^3 Lymphocytes # (Auto) 2.0 1.0-4.0 X 10^3 Monocytes # (Auto) 1.0 0.0-1.0 X 10^3 Eosinophils # (Auto) 0.1 0.0-0.3 10^3/uL Basophils # (Auto) 0.1 0.0-0.1 10^3/uL D-Dimer 3.93 H 0.00-0.49 UG/ML Sodium Level 135 135-145 MMOL/L Potassium Level 4.2 3.6-5.0 MMOL/L Chloride Level 101 98-107 MMOL/L Carbon Dioxide Level 26 21-32 MMOL/L Anion Gap 8 5-14 MMOL/L Blood Urea Nitrogen 6 L 7-18 MG/DL Creatinine 0.84 0.60-1.30 MG/DL Estimat Glomerular Filtration Rate > 60 BUN/Creatinine Ratio 7 Glucose Level 131 H 70-105 MG/DL Calcium Level 9.4 8.5-10.1 MG/DL Magnesium Level 2.1 1.8-2.4 MG/DL Total Bilirubin 0.8 0.1-1.0 MG/DL Aspartate Amino Transf (AST/SGOT) 10 5-34 U/L Alanine Aminotransferase (ALT/SGPT) 9 0-55 U/L Alkaline Phosphatase 97 40-136 U/L Troponin I < 0.30 <0.30 NG/ML C-Reactive Protein High Sensitivity 9.69 H 0.00-0.50 MG/DL B-Type Natriuretic Peptide 121.0 H <100.0 PG/ML Total Protein 7.2 6.4-8.2 GM/DL Albumin 3.8 3.2-4.5 GM/DL My Orders Orders - SHAI ALVAREZ BNP (11/23/17 02:09) Cbc With Automated Diff (11/23/17 02:09) Comprehensive Metabolic Panel (11/23/17 02:09) Hs C Reactive Protein (11/23/17 02:09) Fibrin Degradation Products (11/23/17 02:09) Magnesium (11/23/17 02:09) Troponin I (11/23/17 02:09) Chest Pa/Lat (2 View) (11/23/17 02:09) Albuterol/Ipra Inhalation Soln (Duoneb I (11/23/17 02:15) Saline Lock/Iv-Start (11/23/17 02:09) Ns Iv 500 Ml (Sodium Chloride 0.9%) (11/23/17 02:09) Continuous Ekg Monitoring (11/23/17 02:09) Ekg Tracing (11/23/17 02:09) Svn Sm Volume Nebulizer Rt-Rfs (11/23/17 02:09) Oxycodone/Acet 10/325mg Tablet (Percocet (11/23/17 02:15) Ondansetron Injection (Zofran Injectio (11/23/17 02:15) Oxycodone/Apap 5/325mg Tablet (Percocet (11/23/17 02:30) Hydroxyzine Oral (Vistaril Capsule) (11/23/17 02:30) Ct Angio Chest W (11/23/17 02:43) Iohexol Injection (Omnipaque 350 Mg/Ml 1 (11/23/17 03:30) Ns (Ivpb) (Sodium Chloride 0.9%) (11/23/17 03:30) Medications Given in ED Current Medications Medications Dose Ordered Sig/Tino Route Start Time Stop Time Status Last Admin Dose Admin Albuterol/ Ipratropium 3 ml ONCE ONCE INH 11/23/17 02:15 11/23/17 02:16 DC 11/23/17 02:35 3 ML Hydroxyzine Pamoate 25 mg ONCE ONCE PO 11/23/17 02:30 11/23/17 02:31 DC 11/23/17 02:24 25 MG Iohexol 150 ml ONCE ONCE IV 11/23/17 03:30 11/23/17 03:32 DC 11/23/17 03:27 125 ML Ondansetron HCl 4 mg ONCE ONCE IVP 11/23/17 02:15 11/23/17 02:16 DC 11/23/17 02:21 4 MG Oxycodone/ Acetaminophen 2 tab ONCE ONCE PO 11/23/17 02:30 11/23/17 02:31 DC 11/23/17 02:25 2 TAB Sodium Chloride 250 ml ONCE ONCE IV 11/23/17 03:30 11/23/17 03:32 DC 11/23/17 03:27 80 ML Sodium Chloride 500 ml @ 0 mls/hr Q0M ONCE IV 11/23/17 02:09 11/23/17 02:14 DC 11/23/17 02:21 500 MLS/HR Vital Signs/I&O Vital Sign - Last 12Hours 11/23/17 11/23/17 11/23/17 01:49 01:49 02:35 Temp 97.5 Pulse 74 Resp 20 B/P (MAP) 206/123 (150) Pulse Ox 95 92 O2 Delivery Room Air Room Air Room Air Progress Note #1: Time: 02:17 Progress Note She has a modest amount risk factors for DVT which could be contributing to a pulmonary embolism and shortness of breath versus reaccumulation of her pleural effusion worse and she is having some chills she might also have a pneumonia/ bronchitis. We'll obtain a d-dimer, chest x-ray, labs, troponin and EKG. Her chest pain could also be cardiogenic. Progress Note #2: Time: 02:41 Progress Note She has a very small pleural effusion and she may have pleuritic chest pain since it's worse on deep inspiration. However we'll complete a workup looking for cardio genic versus other. Heart rate at rest is in the 60s. Blood pressure after some rest is now down to 175/94. We have encouraged the patient to take her medications were discussed the pros and cons with her primary care physician. D-dimer is 3.93 so we'll get a CT angiogram thing about a clot. She has no direct evidence of a DVT in her lower extremities. Her mildly elevated CRP is likely from her recent bronchitis/pneumonia and pleural effusion. Patient has had prednisone several times in the past couple months and she's had lots of issues with her blood pressure, blood sugar as well as feeling very wired difficulty sleeping and possibly steroid psychosis so we have discussed the risks benefits and alternatives and she would prefer not to do a prednisone for her pleuritic chest pain. ECG Initial ECG Impression Date: Nov 23, 2017 Initial ECG Impression Time: 02:13 Initial ECG Rate: 71 Initial ECG Rhythm: Normal Sinus Initial ECG Intervals: Normal Initial ECG Impression: Normal, Nonspecific Changes Initial ECG Comparisson: Unchanged Comment No ST segment elevation or depression. Diagnostic Imaging Diagonstic Imaging: Xray Plain Films/CT/US/NM/MRI: chest (2v) Comments No pulmonary infiltrate. Cardiac shadow unchanged. Small left pleural effusion noted of no clinical significance. Reviewed: Reviewed by Me Diagonstic Imaging: CT (angio) Plain Films/CT/US/NM/MRI: chest Reviewed: Reviewed by Me Departure Impression Impression: Primary Impression: Pleuritic chest pain Additional Impressions: Pleural effusion Anxiety Disposition: 01 HOME, SELF-CARE Condition: Improved Departure-Patient Inst. Decision time for Depature: 04:31 Referrals: ESSIE BABCOCK MD (PCP) Primary Care Physician BRETT JOHNSON (Family) Primary Care Physician Patient Instructions: Pleuritic Chest Pain (DC) Add. Discharge Instructions: Next week call your clinic to get an appointment in the following few weeks. Use Tylenol 1000 mg every 6 hours. Use less of the hydrocodone. Stay active and participates in the exercises that physical therapy showed you. All discharge instructions reviewed with patient and/or family. Voiced understanding. Copy Copies To 1: CAROLYN ALVARADO TITUS J Nov 23, 2017 02:18
[2017-11-23 02:20] LABS: BASOPHILS # (AUTO) 0.1 10^3/uL (0.0-0.1); BASOPHILS % (AUTO) 1 % (0-10); EOSINOPHILS # (AUTO) 0.1 10^3/uL (0.0-0.3); EOSINOPHILS % (AUTO) 1 % (0-10); HEMATOCRIT 42 % (35-52); LYMPHOCYTES % (AUTO) 19 % (12-44); MEAN CORPUSCULAR HEMOGLOBIN 28 PG (25-34); MEAN CORPUSCULAR HGB CONC 33 G/DL (32-36); MEAN CORPUSCULAR VOLUME 85 FL (80-99); MEAN PLATELET VOLUME 8.8 FL (7.4-10.4); MONOCYTES % (AUTO) 10 % (0-12); NEUTROPHILS # (AUTO) 7.3 X 10^3 (1.8-7.8); NEUTROPHILS % (AUTO) 70 % (42-75); PLATELET COUNT 237 10^3/uL (130-400); RED BLOOD COUNT 4.94 10^6/uL (4.35-5.85); RED CELL DISTRIBUTION WIDTH 18.5 % (10.0-14.5); WHITE BLOOD COUNT 10.4 10^3/uL (4.3-11.0)
[2017-11-23] MEDS ORDERED: oxyCODONE/APAP 5/325MG (PERCOCET 5) TABLET PO ONE (02:30)
[2017-11-23] MEDS ORDERED: hydrOXYzine (VISTARIL) 25 MG CAP PO ONE (02:30)
[2017-11-23 02:43] LABS: ALANINE AMINOTRANSFERASE 9 U/L (0-55); ALBUMIN 3.8 GM/DL (3.2-4.5); ALKALINE PHOSPHATASE 97 U/L (40-136); BILIRUBIN,TOTAL 0.8 MG/DL (0.1-1.0); BUN/CREATININE RATIO 7; CALCIUM 9.4 MG/DL (8.5-10.1); CARBON DIOXIDE 26 MMOL/L (21-32); CHLORIDE 101 MMOL/L (98-107); CREATININE SERUM 0.84 MG/DL (0.60-1.30); GFR ESTIMATED > 60; GLUCOSE 131 MG/DL (70-105); MAGNESIUM 2.1 MG/DL (1.8-2.4); POTASSIUM 4.2 MMOL/L (3.6-5.0); SODIUM 135 MMOL/L (135-145); TOTAL PROTEIN 7.2 GM/DL (6.4-8.2)
[2017-11-23] MEDS ORDERED: NS 250 ML (IVPB) BAG IV ONE (03:30)
[2017-11-23] MEDS ORDERED: IOHEXOL 350 MG/ML 150 ML (OMNIPAQUE 350) VIAL IV ONE (03:30)
[2017-11-23 04:39] VITALS: BP 144/95
--- NOTE | 2017-11-23 06:19 | Diagnostic Imaging Report ---
PROCEDURE: CT angiography of the chest with contrast. TECHNIQUE: Multiple contiguous axial images were obtained through the chest after uneventful bolus administration of intravenous contrast. Reconstructed CTA MIP acquisitions were also performed. INDICATION: Cough and congestion. COMPARISON: 11/06/2017. FINDINGS: Vasculature: No pulmonary emboli. No CT evidence of pulmonary hypertension or right ventricular strain. Thoracic aorta is normal in caliber. No aortic dissection or pseudoaneurysm. Heart and mediastinum: Visualized thyroid is normal. No supraclavicular, axillary, or intra-thoracic lymphadenopathy. Stable borderline cardiomegaly. Small pericardial effusion persists and has slightly decreased in size since prior exam. Pleura: Trace left pleural effusion persist. Right pleural effusion has resolved. No pneumothorax. Lungs and airway: No endoluminal lesion in the trachea or central bronchi. Severe emphysema within the lung apices. No pulmonary mass or consolidation. No suspicious pulmonary nodules. Upper abdomen: Stable dilation of the common bile duct post cholecystectomy. Musculoskeletal: No concerning osseous lesion. IMPRESSION: 1. No acute cardiopulmonary process. Specifically, no pulmonary emboli or acute aortic syndrome. 2. Since CT of 11/06/2017, the right pleural effusion has resolved and the left pleural effusion has decreased in size and is now trace in nature. 3. Improving but persistent small pericardial effusion. 4. Findings are in agreement with the preliminary report. Dictated by: Dictated on workstation # [id number]
--- NOTE | 2017-11-23 07:26 | Diagnostic Imaging Report ---
EXAMINATION: PA and lateral chest INDICATION: Cough and congestion. Comparison made to prior from 11/07/2017. There is a small left pleural effusion present. There is no effusion evident on the right. There are no focal pulmonary infiltrates. There is no pneumothorax. The size of the cardiac silhouette appears diminished when compared to the previous examination. There is no acute osseous abnormality. IMPRESSION: 1. Small left pleural effusion. The lungs otherwise appear clear. There are no findings to suggest failure. The size of the patient's cardiac silhouette appears improved from the prior examination. Dictated by: Dictated on workstation # [id number]
== END 2017-11-23 04:39 | disposition home or self-care (01) ==
LOC: EDUNIT# 01:36 → ER 01:38
DX: R07.81 Pleurodynia (principal); J90 Pleural effusion, not elsewhere classified; F41.9 Anxiety disorder, unspecified; J43.9 Emphysema, unspecified; I48.91 Unspecified atrial fibrillation; E78.00 Pure hypercholesterolemia, unspecified; I10 Essential (primary) hypertension; K21.9 Gastro-esophageal reflux disease without esophagitis; M81.0 Age-related osteoporosis without current pathological fracture; G40.909 Epilepsy, unspecified, not intractable, without status epilepticus; F17.210 Nicotine dependence, cigarettes, uncomplicated; Z90.49 Acquired absence of other specified parts of digestive tract; Z87.19 Personal history of other diseases of the digestive system; Z80.0 Family history of malignant neoplasm of digestive organs; Z80.1 Family history of malignant neoplasm of trachea, bronchus and lung; Z98.51 Tubal ligation status; Z86.718 Personal history of other venous thrombosis and embolism; Z87.01 Personal history of pneumonia (recurrent); Z87.59 Personal history of other complications of pregnancy, childbirth and the puerperium; Z90.710 Acquired absence of both cervix and uterus; Z88.6 Allergy status to analgesic agent; Z88.8 Allergy status to other drugs, medicaments and biological substances; Z79.82 Long term (current) use of aspirin
CPT/HCPCS: 36415; 71046; 71275; 80053; 83735; 83880; 84484; 85025; 85379; 86141; 94640

== ENCOUNTER 2017-11-25 08:39 | Inpatient (IN) | payer MEDICAID ==
[~2017-11-25] VITALS: Ht 172.7 cm; Wt 92.6 kg
--- OUTSIDE RECORDS SUMMARY | 2017-11-25 08:46 | XMS REPORT | Continuity of Care Document ---
Author Author [employer] Organization [facility] Address Unknown Phone Unavailable Care Team Providers Care Extension Work Director Name Role Phone [employer] Unavailable Unavailable Problems Medications Allergies, Adverse Reactions, Alerts Immunizations Results Vital Signs Encounters Location Location Details Encounter Type Encounter Number Reason For Visit Attending Provider ADM Date DC Date Status Source O "" BRETT JOHNSON [facility] Procedures Plan of Care Social History Assessment and Plan Family History Advance Directives Functional Status
[2017-11-25 10:06] LABS: BASOPHILS % (AUTO) 0 % (0-10); EOSINOPHILS % (AUTO) 0 % (0-10); HEMATOCRIT 43 % (35-52); LYMPHOCYTES % (AUTO) 14 % (12-44); MEAN CORPUSCULAR HEMOGLOBIN 28 PG (25-34); MEAN CORPUSCULAR HGB CONC 33 G/DL (32-36); MEAN CORPUSCULAR VOLUME 85 FL (80-99); MEAN PLATELET VOLUME 8.7 FL (7.4-10.4); MONOCYTES # (AUTO) 1.2 X 10^3 (0.0-1.0); MONOCYTES % (AUTO) 8 % (0-12); NEUTROPHILS # (AUTO) 11.2 X 10^3 (1.8-7.8); NEUTROPHILS % (AUTO) 78 % (42-75); PLATELET COUNT 281 10^3/uL (130-400); RED BLOOD COUNT 4.99 10^6/uL (4.35-5.85); RED CELL DISTRIBUTION WIDTH 18.8 % (10.0-14.5); WHITE BLOOD COUNT 14.4 10^3/uL (4.3-11.0)
[2017-11-25 10:25] LABS: ALANINE AMINOTRANSFERASE 6 U/L (0-55); ALBUMIN 3.8 GM/DL (3.2-4.5); ALKALINE PHOSPHATASE 99 U/L (40-136); BILIRUBIN,TOTAL 0.8 MG/DL (0.1-1.0); BUN/CREATININE RATIO 6; CALCIUM 9.7 MG/DL (8.5-10.1); CARBON DIOXIDE 28 MMOL/L (21-32); CHLORIDE 98 MMOL/L (98-107); CREATININE SERUM 0.95 MG/DL (0.60-1.30); GFR ESTIMATED > 60; GLUCOSE 109 MG/DL (70-105); POTASSIUM 4.5 MMOL/L (3.6-5.0); SODIUM 136 MMOL/L (135-145); TOTAL PROTEIN 7.6 GM/DL (6.4-8.2)
[2017-11-25 10:35] LABS: ERYTHROCYTE SEDIMENTATION RATE 19 MM/HR (0-30)
[2017-11-25 10:52] LABS: ANISOCYTOSIS SLIGHT; BAND NEUTROPHILS 0 %; BASOPHILS % (MANUAL) 0 %; EOSINOPHILS % (MANUAL) 0 %; LYMPHOCYTES % (MANUAL) 15 %; MONOCYTES % (MANUAL) 9 %; NEUTROPHILS % (MANUAL) 76 %
[2017-11-25] MEDS ORDERED: KETOROLAC 30 MG/ML VIAL IVP ONE (11:30)
[2017-11-25] MEDS ORDERED: LORazepam INJ 2 MG/ML (ATIVAN) VIAL IVP ONE (11:30)
[2017-11-25] MEDS ORDERED: PIPERACILLIN SODIUM/TAZOBACTAM 4.5 GM in NS (IVPB) 100 ML IV ONE (11:30)
--- NOTE | 2017-11-25 11:47 | ED General ---
General Chief Complaint: General Problems/Pain Stated Complaint: CHILLS/FEVER SWEATY SHAKEY WEAKNESS Nursing Triage Note: PT REPORTS WEAKNESS, FEVER/CHILLS, NAUSEA, DIAPHORESIS, CHRONIC L SIDE PAIN. Nursing Sepsis Screen: No Definite Risk Source of Information: Patient, Old Records Exam Limitations: No Limitations History of Present Illness Date Seen by Provider: Nov 25, 2017 Time Seen by Provider: 08:47 Initial Comments This 52-year-old woman presents to the emergency room with 5 days of symptoms that include loss of appetite, decreased oral food and fluid, left sided chest pain, nighttime fever and chills (subjective), and lower extremity edema, right greater than left (actually present 2 weeks). Patient was seen for similar symptoms on November 23 and thoroughly evaluated. Pain in the left chest is worse with breathing and movement. She was felt to have pleuritic chest pain at that time. Patient has a history of pericardial effusion status post pericardial window. She was admitted on November 06 for septic shock without a definite source of infection. She had a thoracentesis performed at that time to drain the pleural fluid. No malignant cells were seen on pathology. Her primary care provider is Easton Pettit at [facility]. Her entry level accounting clerk is Dr. Campbell. She has been doing nebulizer treatments at home. Her last treatment was around 04:00. Allergies and Home Medications Allergies Coded Allergies: buspirone HCl (Verified Allergy, Unknown, 08/14/15) etodolac (Verified Allergy, Unknown, 08/14/15) NSAIDS (Non-Steroidal Anti-Inflamma (Verified Adverse Reaction, Unknown, 08/14/15) Neuromuscular Blockers, Steroidal (Verified Adverse Reaction, Unknown, ) gabapentin (Verified Adverse Reaction, Unknown, 08/14/15) Home Medications Albuterol Sulfate 1 Puff Puff, 2 PUFF INH QID PRN for SHORTNESS OF BREATH, ( Reported) Albuterol Sulfate 2.5 Mg/3 Ml Vial.neb, 2.5 MG NEB Q4H PRN for SHORTNESS OF BREATH, (Reported) Alprazolam 0.5 Mg Tablet, 0.5 MG PO TID PRN for ANXIETY, (Reported) Amiodarone HCl 200 Mg Tablet, 200 MG PO DAILY, (Reported) Aspirin 325 Mg Tablet.dr, 325 MG PO DAILY, (Reported) Atenolol 100 Mg Tablet, 50 MG PO BID, (Reported) TAKES 1/2 (100MG) TABLET Cetirizine HCl 10 Mg Tablet, 10 MG PO DAILY, (Reported) Cholecalciferol (Vitamin D3) 1,000 Unit Tablet, 1,000 UNIT PO BID, (Reported) Cyanocobalamin 1,000 Mcg/Ml Inj, 1,000 MCG IJ MONTHLY, (Reported) Dicyclomine HCl 20 Mg Tablet, 20 MG PO QID PRN for STOMACH UPSET, (Reported) Docusate Sodium 100 Mg Capsule, 100 MG PO BID PRN for CONSTIPATION-1ST LINE, ( Reported) Fluticasone Propionate 16 Gm [place].susp, 1 SPRAY NSEACH BID, (Reported) Fluticasone/Salmeterol 1 Each Blst.w.dev, 1 PUFF IH BID, (Reported) Guaifenesin 400 Mg Tablet, 400 MG PO Q4H PRN for CONGESTION, (Reported) Guaifenesin/Dextromethorphan 5 Ml Syrup, 10 ML PO Q6H PRN for COUGH, (Reported) Hydrocodone Bit/Acetaminophen 1 Tab Tab, 1 TAB PO Q6H PRN for PAIN-MODERATE, ( Reported) Ibuprofen 600 Mg Tablet, 600 MG PO Q6H PRN for PAIN-MILD, (Reported) Lactobacillus Acidophilus 1 Each Capsule, 1 CAP PO DAILY, (Reported) Calvin 3 Polyunsat Fatty Acids 1,000 Mg Cap, 2,000 MG PO BID, (Reported) Omeprazole 40 Mg Capsule.dr, 40 MG PO DAILY, (Reported) Ranitidine HCl 150 Mg Tablet, 150 MG PO BID, (Reported) Simethicone 125 Mg Tab.chew, 2 TAB PO BID PRN for GAS, (Reported) Patient Home Medication List Home Medication List Reviewed: Yes Constitutional: see HPI EENTM: no symptoms reported Respiratory: see HPI Cardiovascular: see HPI Gastrointestinal: see HPI Genitourinary: no symptoms reported Musculoskeletal: see HPI Skin: no symptoms reported Psychiatric/Neurological: No Symptoms Reported Hematologic/Lymphatic: No Symptoms Reported Past Oanklhs-Qowwwg-Dteova Hx Patient Social History Alcohol Use: Denies Use Recreational Drug Use: No Smoking Status: Current Everyday Smoker Type Used: Cigarettes 2nd Hand Smoke Exposure: Yes Recent Foreign Travel: No Contact w/Someone Who Travel: No Recent Infectious Disease Expo: No Recent Hopitalizations: Yes (SEPSIS 10/2017) Immunizations Up To Date Tetanus Booster (TDap): Unknown Date of Pneumonia Vaccine: Jun 07, 2016 Date of Influenza Vaccine: Nov 08, 2017 Seasonal Allergies Seasonal Allergies: Yes Surgeries History of Surgeries: Yes (pericardial window) Surgeries: Abdominal, Appendectomy, Cardiac, Section, Gallbladder, Hysterectomy, Oophorectomy Respiratory History of Respiratory Disorde: Yes Respiratory Disorders: Asthma, Pneumonia, Pulmonary Embolism, Sleep Apnea, COPD , Emphysema Currently Using CPAP: No Currently Using BIPAP: No Cardiovascular History of Cardiac Disorders: Yes (Pericardial effusion-S/P PERICARDIAL WINDOW 08/2017) Cardiac Disorders: Atrial Fibrillation, Chronic Edema/Swelling, Deep Vein Thrombosis, High Cholesterol, Hypertension Neurological History of Neurological Disord: Yes (PSEUDO SEIZURES ) Neurological Disorders: Seizure Disorder 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 System Hx 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 Disorders: Yes 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: Hysterectomy, 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, Menopausal Genitourinary History of Genitourinary Disor: No Gastrointestinal History of Gastrointestinal Di: Yes (CHOKES EASILY) Gastrointestinal Disorders: Abdominal Hernia, Gastroesophageal Reflux, Diverticulosis, Hiatal Hernia, Ulcer, Gall Bladder Disease, Irritable Bowel Musculoskeletal History of Musculoskeletal Dis: Yes (CHRONIC KNEE AND HIP PAIN, SPINAL STENOSIS ) Musculoskeletal Disorders: Degenerate Disk Disease, Osteoporosis, Arthritis, Chronic Back Pain Endocrine History of Endocrine Disorders: No HEENT History of HEENT Disorders: No Cancer History of Cancer: No Psychosocial History of Psychiatric Problem: Yes Behavioral Health Disorders: Pseudo Seizures, Anxiety Integumentary History of Skin or Integumenta: Yes Skin/Integumentary Disorders: Eczema Blood Transfusions History of Blood Disorders: No Adverse Reaction to a Blood Tr: No Family Medical History Family Medial History: FH: cirrhosis 19 MOTHER FH: liver cancer 19 MOTHER FHx: lung cancer 19 FATHER Hypertension 19 FATHER 19 MOTHER Physical Exam Vital Signs Vital Signs - First Documented 11/25/17 11/25/17 09:45 12:56 Temp 97.0 Pulse 77 Resp 16 B/P (MAP) 148/107 (121) Pulse Ox 98 O2 Delivery Room Air O2 Flow Rate 2.00 Capillary Refill : Less Than 3 Seconds General Appearance: No Apparent Distress, WD/WN HEENT: PERRL/EOMI, Normal ENT Inspection, Other (oropharynx somewhat dry) Neck: Normal Inspection Respiratory: Lungs Clear, No Accessory Muscle Use, No Respiratory Distress, Decreased Breath Sounds Cardiovascular: Regular Rate, Rhythm, No Murmur, Other (mild right ankle edema) Gastrointestinal: Normal Bowel Sounds, Non Tender, Soft Extremity: Normal Inspection, Pedal Edema (right greater than left) Neurologic/Psychiatric: Alert, Oriented x3, No Motor/Sensory Deficits, Normal Mood/Affect, youth manager II-XII Norm as Tested Skin: Normal Color, Warm/Dry Focused Exam Evaluation Lactate Level Laboratory Tests 11/25/17 11:25: Lactic Acid Level 1.89 Lactic Acid Level Laboratory Tests Test 11/25/17 11:25 Lactic Acid Level 1.89 MMOL/L (0.50-2.00) Progress/Results/Core Measures Suspected Sepsis Recent Fever Within 48 Hours: No Infection Criteria Present: None New/Unexplained Altered Menta: No Sepsis Screen: No Definite Risk Sepsis Diagnosis: SIRS Temperature:97.0 Pulse: 77 Respiratory Rate: 16 Laboratory Tests 11/25/17 09:55: White Blood Count 14.4H Blood Pressure 148 /107 Mean: 121 Laboratory Tests 11/25/17 11:25: Lactic Acid Level 1.89 Laboratory Tests 11/25/17 09:55: Creatinine 0.95, Platelet Count 281, Total Bilirubin 0.8 Results/Orders Lab Results Laboratory Tests Test 11/25/17 09:55 11/25/17 11:25 11/25/17 11:34 Range/Units White Blood Count 14.4 H 4.3-11.0 10^3/uL Red Blood Count 4.99 4.35-5.85 10^6/uL Hemoglobin 14.0 11.5-16.0 G/DL Hematocrit 43 35-52 % Mean Corpuscular Volume 85 80-99 FL Mean Corpuscular Hemoglobin 28 25-34 PG Mean Corpuscular Hemoglobin Concent 33 32-36 G/DL Red Cell Distribution Width 18.8 H 10.0-14.5 % Platelet Count 281 130-400 10^3/uL Mean Platelet Volume 8.7 7.4-10.4 FL Neutrophils (%) (Auto) 78 H 42-75 % Lymphocytes (%) (Auto) 14 12-44 % Monocytes (%) (Auto) 8 0-12 % Eosinophils (%) (Auto) 0 0-10 % Basophils (%) (Auto) 0 0-10 % Neutrophils # (Auto) 11.2 H 1.8-7.8 X 10^3 Lymphocytes # (Auto) 2.0 1.0-4.0 X 10^3 Monocytes # (Auto) 1.2 H 0.0-1.0 X 10^3 Eosinophils # (Auto) 0.0 0.0-0.3 10^3/uL Basophils # (Auto) 0.0 0.0-0.1 10^3/uL Neutrophils % (Manual) 76 % Lymphocytes % (Manual) 15 % Monocytes % (Manual) 9 % Eosinophils % (Manual) 0 % Basophils % (Manual) 0 % Band Neutrophils 0 % Anisocytosis SLIGHT Erythrocyte Sedimentation Rate 19 0-30 MM/HR Sodium Level 136 135-145 MMOL/L Potassium Level 4.5 3.6-5.0 MMOL/L Chloride Level 98 98-107 MMOL/L Carbon Dioxide Level 28 21-32 MMOL/L Anion Gap 10 5-14 MMOL/L Blood Urea Nitrogen 6 L 7-18 MG/DL Creatinine 0.95 0.60-1.30 MG/DL Estimat Glomerular Filtration Rate > 60 BUN/Creatinine Ratio 6 Glucose Level 109 H 70-105 MG/DL Calcium Level 9.7 8.5-10.1 MG/DL Total Bilirubin 0.8 0.1-1.0 MG/DL Aspartate Amino Transf (AST/SGOT) 8 5-34 U/L Alanine Aminotransferase (ALT/SGPT) 6 0-55 U/L Alkaline Phosphatase 99 40-136 U/L C-Reactive Protein High Sensitivity 30.42 H 0.00-0.50 MG/DL Total Protein 7.6 6.4-8.2 GM/DL Albumin 3.8 3.2-4.5 GM/DL Lactic Acid Level 1.89 0.50-2.00 MMOL/L Troponin I < 0.30 <0.30 NG/ML B-Type Natriuretic Peptide 95.5 <100.0 PG/ML Urine Color YELLOW Urine Clarity SLIGHTLY CLOUDY Urine pH 7 5-9 Urine Specific [place] 1.005 L 1.016-1.022 Urine Protein NEGATIVE NEGATIVE Urine Glucose (UA) NEGATIVE NEGATIVE Urine Ketones NEGATIVE NEGATIVE Urine Nitrite NEGATIVE NEGATIVE Urine Bilirubin NEGATIVE NEGATIVE Urine Urobilinogen 1 NORMAL MG/DL Urine Leukocyte Esterase 1+ H NEGATIVE Urine RBC (Auto) 1+ H NEGATIVE Urine RBC RARE /HPF Urine WBC 0-2 /HPF Urine Squamous Epithelial Cells 10-25 H /HPF Urine Crystals NONE /LPF Urine Bacteria TRACE /HPF Urine Casts NONE /LPF Urine Mucus NEGATIVE /LPF Urine Culture Indicated NO My Orders Orders - NENA ALONSO MD Cbc With Automated Diff (11/25/17 08:47) Comprehensive Metabolic Panel (11/25/17 08:47) Hs C Reactive Protein (11/25/17 08:47) Erythrocyte Sedimentation Rate (11/25/17 08:47) Saline Lock/Iv-Start (11/25/17 08:48) Manual Differential (11/25/17 09:55) Ua Culture If Indicated (11/25/17 11:07) Chest Pa/Lat (2 View) (11/25/17 11:07) BNP (11/25/17 11:19) Blood Culture (11/25/17 11:19) Lactic Acid Analyzer (11/25/17 11:19) Piperacillin Sodium/Tazobactam (Zosyn Vi (11/25/17 11:30) Ketorolac Injection (Toradol Injection) (11/25/17 11:30) Lorazepam Injection (Ativan Injection) (11/25/17 11:30) Albuterol/Ipra Inhalation Soln (Duoneb I (11/25/17 12:30) Svn Sm Volume Nebulizer Rt-Rfs (11/25/17 12:23) Ekg Tracing (11/25/17 12:28) Us Venous Lower Ext Rt (11/25/17 12:28) Troponin I (11/25/17 12:28) Oxycodone/Apap 5/325mg Tablet (Percocet (11/25/17 12:45) Ondansetron Injection (Zofran Injectio (11/25/17 12:45) Oxycodone/Apap 5/325mg Tablet (Percocet (11/25/17 12:45) Medications Given in ED Current Medications Medications Dose Ordered Sig/Tino Route Start Time Stop Time Status Last Admin Dose Admin Albuterol/ Ipratropium 3 ml ONCE ONCE INH 11/25/17 12:30 11/25/17 12:31 DC 11/25/17 12:55 3 ML Ketorolac Tromethamine 30 mg ONCE ONCE IVP 11/25/17 11:30 11/25/17 11:31 DC 11/25/17 11:35 30 MG Lorazepam 0.5 mg ONCE ONCE IVP 11/25/17 11:30 11/25/17 11:31 DC 11/25/17 11:35 0.5 MG Ondansetron HCl 4 mg ONCE ONCE IVP 11/25/17 12:45 11/25/17 12:46 DC 11/25/17 12:50 4 MG Oxycodone/ Acetaminophen 1 tab ONCE ONCE PO 11/25/17 12:45 11/25/17 12:46 DC 11/25/17 12:50 1 TAB Piperacillin Sod/ Tazobactam Sod 4.5 gm/Sodium Chloride 100 ml @ 200 mls/hr ONCE ONCE IV 11/25/17 11:30 11/25/17 11:59 DC 11/25/17 12:47 200 MLS/HR Vital Signs/I&O Vital Sign - Last 12Hours 11/25/17 11/25/17 11/25/17 09:45 12:56 13:25 Temp 97.0 97.0 Pulse 77 67 Resp 16 16 B/P (MAP) 148/107 (121) 145/99 (121) Pulse Ox 98 98 O2 Delivery Room Air Nasal Cannula Nasal Cannula O2 Flow Rate 2.00 2.00 Capillary Refill : Less Than 3 Seconds Blood Pressure Mean: 121 Progress Note #1: Time: 11:10 Progress Note Labs were reviewed. Patient was noted to have a leukocytosis and rising CRP compared to prior visit. UA and chest x-ray are being ordered to evaluate for sources of infection. Progress Note #2: Time: 11:25 Progress Note Patient is requesting pain medication. Toradol has been ordered. She is also anxious and is being given Ativan. Since patient had been recently treated for septic shock and pleural effusion, we will also continue workup with blood culture and lactic acid. She is afebrile at present but describes fevers and chills at night at home. Progress Note #3: Time: 12:30 Progress Note No definite source of infection has been identified. Pleural effusion as a possible source. Abnormal labs could also be explained by pericarditis. EKG and troponin will be obtained to further evaluate for possible pericarditis. I discussed the case with Dr. Brooke Gill who agrees with admission and would like Dr. Campbell consulted. Progress Note #4: Time: 12:52 Progress Note EKG is unremarkable. Case discussed with Dr. Gill who is agreeable to add in. Zosyn will be continued for empiric antibiotic therapy for the time being. Toradol will be continued for NSAID pain management. Percocet will be given for breakthrough pain. ECG Initial ECG Impression Date: Nov 25, 2017 Initial ECG Impression Time: 12:39 Initial ECG Rate: 67 Initial ECG Rhythm: Normal Sinus Initial ECG Intervals: Normal Comment Normal sinus rhythm with no ST elevation or depression. No evidence of pericarditis. No abnormal intervals or axis deviation. Diagnostic Imaging Diagonstic Imaging: Xray Plain Films/CT/US/NM/MRI: chest Comments Chest x-ray viewed by me and report reviewed. See report below: NAME: MAHNAZ VANCE [facility] REC#: [id number] PT STATUS: REG ER : 1965 PHYSICIAN: NENA ALONSO MD ADMIT DATE: 11/25/17/ER Draft Date of Exam:11/25/17 CHEST PA/LAT (2 VIEW) INDICATION: Chills and fever. TIME OF EXAMINATION: 12:03 PM. COMPARISON: 11/23/2017. FINDINGS: The heart remains enlarged. There continues to be a small left effusion. The lungs appear to be fairly clear. There is no pneumothorax. IMPRESSION: Cardiomegaly and small left effusion, similar to the examination of 2 days earlier. Dictated on workstation # [id number] Dict: 11/25/17 1153 Trans: 11/25/17 1156 [id number] Interpreted by: BRANDAN MANRIQUE MD Departure Communication (Admissions) Time/Spoke to Admitting Phy: 12:[address] Brooke Gill Time/Spoke to Consulting Phy: 12:48 Communication/Consulting Dr. Campbell Impression Impression: Primary Impression: Left sided chest pain Additional Impressions: Pleural effusion, left Leukocytosis Qualified Codes: D72.829 - Elevated white blood cell count, unspecified Disposition: ADMITTED INPATIENT Condition: Improved Admissions Decision to Admit Reason: Admit from ER (General) Decision to Admit/Date: Nov 25, 2017 Time/Decision to Admit Time: 12:25 Departure-Patient Inst. Referrals: [facility] (PCP/Family) Primary Care Physician NENA ALONSO MD Nov 25, 2017 11:47
--- NOTE | 2017-11-25 11:57 | Diagnostic Imaging Report ---
INDICATION: Chills and fever. TIME OF EXAMINATION: 12:03 PM. COMPARISON: 11/23/2017. FINDINGS: The heart remains enlarged. There continues to be a small left effusion. The lungs appear to be fairly clear. There is no pneumothorax. IMPRESSION: Cardiomegaly and small left effusion, similar to the examination of 2 days earlier. Dictated by: Dictated on workstation # [id number]
[2017-11-25 11:59] LABS: BILIRUBIN,URINE NEGATIVE (NEGATIVE); CLARITY,URINE SLIGHTLY CLOUDY; COLOR,URINE YELLOW; GLUCOSE, URINE (UA) NEGATIVE (NEGATIVE); KETONES,URINE NEGATIVE (NEGATIVE); LEUKOCYTE ESTERASE ,URINE 1+ (NEGATIVE); NITRITE,URINE NEGATIVE (NEGATIVE); PH,URINE 7 (5-9); PROTEIN,URINE NEGATIVE (NEGATIVE); UROBILINOGEN,URINE 1 MG/DL (NORMAL)
[2017-11-25 12:12] LABS: BACTERIA,URINE TRACE /HPF; RBC,URINE RARE /HPF; WBC,URINE 0-2 /HPF
[2017-11-25] MEDS ORDERED: RT-ALBUTEROL/IPRATROPIUM 3 ML (DUONEB) VIAL INH ONE (12:30)
[2017-11-25] MEDS ORDERED: oxyCODONE/APAP 5/325MG (PERCOCET 5) TABLET PO ONE ×2 (12:45)
[2017-11-25] MEDS ORDERED: ONDANSETRON 4 MG/2 ML (SDV) Z0FRAN IVP ONE (12:45)
--- OUTSIDE RECORDS SUMMARY | 2017-11-25 13:08 | XMS REPORT | Continuity of Care Document ---
Author Author [employer] Organization [facility] Address Unknown Phone Unavailable Care Team Providers Care Lining Caser Name Role Phone [employer] Unavailable Unavailable Problems Medications Allergies, Adverse Reactions, Alerts Immunizations Results Vital Signs Encounters Location Location Details Encounter Type Encounter Number Reason For Visit Attending Provider ADM Date DC Date Status Source O "" [facility] Procedures Plan of Care Social History Assessment and Plan Family History Advance Directives Functional Status
[2017-11-25 13:45] VITALS: BP 108/71
--- NOTE | 2017-11-25 13:48 | Diagnostic Imaging Report ---
PROCEDURE: US right lower extremity venous. TECHNIQUE: Multiple real-time grayscale images were obtained over the right lower extremity in various projections. Additional duplex Doppler and color Doppler images were also obtained. INDICATION: Right leg swelling. FINDINGS: There is no evidence of a right lower extremity DVT. THe right lower extremity deep venous system shows normal compressibility with normal response to augmentation and Valsalva. No fluid collection or mass is detected. IMPRESSION: No evidence of right lower extremity DVT. Dictated by: Dictated on workstation # [id number]
[2017-11-25] MEDS: NS IV 1000 ML 1,000 ML IV SCH (15:19)
[2017-11-25] MEDS: oxyCODONE/APAP 5/325MG (PERCOCET 5) TABLET PO PRN (15:19)
[2017-11-25] MEDS: ONDANSETRON 4 MG/2 ML (SDV) Z0FRAN IV PRN (15:30)
[2017-11-25] MEDS ORDERED: CHOL500044 PO (15:51)
[2017-11-25] MEDS ORDERED: DOCU-143 PO (15:51)
[2017-11-25] MEDS ORDERED: LOSA25TA21 PO (15:51)
[2017-11-25 16:00] VITALS: BP 108/58
--- NOTE | 2017-11-25 16:35 | Consultation-Cardiology ---
HPI-Cardiology Cardiology Consultation Date of Consultation 11/25/17 Date of Admission Time Seen by Provider: 16:28 Indication: Shortness of breath, fever HPI 52 years old lady with history of pericardial effusion, had pericardiocentesis and window done in August 2017, had pleural effusion which required thoracentesis done in August 2017 then again in October 2017, was treated for sepsis recently. Had 2 out of 4 blood culture grew staph coag negative. Was doing well until this morning when she woke up feeling weak and tired and lethargic, loss of appetite, was concerned about having sepsis again, came to the hospital and had low-grade fever, upper arrival to the emergency room her temperature has resolved but she was diaphoretic. Currently feeling better, still having some cough but still an active smoker. Reported that her edema has improved, denied any chest pain. Denied any palpitation. Home Medications & Allergies Allergies: Coded Allergies: buspirone HCl (Verified Allergy, Unknown, 08/14/15) etodolac (Verified Allergy, Unknown, 08/14/15) NSAIDS (Non-Steroidal Anti-Inflamma (Verified Adverse Reaction, Unknown, 08/14/15) Neuromuscular Blockers, Steroidal (Verified Adverse Reaction, Unknown, ) gabapentin (Verified Adverse Reaction, Unknown, 08/14/15) Home Medication List Reviewed: Yes ELS-Hzljip-Yuztjw Hx Patient Social History Alcohol Use: Denies Use Recreational Drug Use: No Smoking Status: Current Everyday Smoker Type Used: Cigarettes 2nd Hand Smoke Exposure: Yes Recent Foreign Travel: No Recent Infectious Disease Expo: No Recent Hopitalizations: Yes (SEPSIS 10/2017) Physical Abuse Screen: No Sexual Abuse: No Immunizations Up To Date Tetanus Booster (TDap): Unknown Date of Pneumonia Vaccine: Jun 07, 2016 Date of Influenza Vaccine: Nov 08, 2017 Past Medical History Past medical history is discussed below Family Medical History Family History: 19 FATHER FHx: lung cancer Hypertension 19 MOTHER FH: liver cancer FH: cirrhosis Hypertension Constitutional: see HPI, diaphoresis, fever, malaise, weakness EENTM: see HPI Respiratory: see HPI, cough, dyspnea on exertion, phlegm, short of breath Cardiovascular: see HPI, chest pain Gastrointestinal: no symptoms reported, see HPI Genitourinary: no symptoms reported, see HPI Musculoskeletal: no symptoms reported, see HPI Skin: no symptoms reported, see HPI Psychiatric/Neurological: No Symptoms Reported, See HPI Reviewed Test Results Reviewed Test Results Lab Laboratory Tests Test 11/25/17 09:55 11/25/17 11:25 11/25/17 11:34 Range/Units White Blood Count 14.4 H 4.3-11.0 10^3/uL Red Blood Count 4.99 4.35-5.85 10^6/uL Hemoglobin 14.0 11.5-16.0 G/DL Hematocrit 43 35-52 % Mean Corpuscular Volume 85 80-99 FL Mean Corpuscular Hemoglobin 28 25-34 PG Mean Corpuscular Hemoglobin Concent 33 32-36 G/DL Red Cell Distribution Width 18.8 H 10.0-14.5 % Platelet Count 281 130-400 10^3/uL Mean Platelet Volume 8.7 7.4-10.4 FL Neutrophils (%) (Auto) 78 H 42-75 % Lymphocytes (%) (Auto) 14 12-44 % Monocytes (%) (Auto) 8 0-12 % Eosinophils (%) (Auto) 0 0-10 % Basophils (%) (Auto) 0 0-10 % Neutrophils # (Auto) 11.2 H 1.8-7.8 X 10^3 Lymphocytes # (Auto) 2.0 1.0-4.0 X 10^3 Monocytes # (Auto) 1.2 H 0.0-1.0 X 10^3 Eosinophils # (Auto) 0.0 0.0-0.3 10^3/uL Basophils # (Auto) 0.0 0.0-0.1 10^3/uL Neutrophils % (Manual) 76 % Lymphocytes % (Manual) 15 % Monocytes % (Manual) 9 % Eosinophils % (Manual) 0 % Basophils % (Manual) 0 % Band Neutrophils 0 % Anisocytosis SLIGHT Erythrocyte Sedimentation Rate 19 0-30 MM/HR Sodium Level 136 135-145 MMOL/L Potassium Level 4.5 3.6-5.0 MMOL/L Chloride Level 98 98-107 MMOL/L Carbon Dioxide Level 28 21-32 MMOL/L Anion Gap 10 5-14 MMOL/L Blood Urea Nitrogen 6 L 7-18 MG/DL Creatinine 0.95 0.60-1.30 MG/DL Estimat Glomerular Filtration Rate > 60 BUN/Creatinine Ratio 6 Glucose Level 109 H 70-105 MG/DL Calcium Level 9.7 8.5-10.1 MG/DL Total Bilirubin 0.8 0.1-1.0 MG/DL Aspartate Amino Transf (AST/SGOT) 8 5-34 U/L Alanine Aminotransferase (ALT/SGPT) 6 0-55 U/L Alkaline Phosphatase 99 40-136 U/L C-Reactive Protein High Sensitivity 30.42 H 0.00-0.50 MG/DL Total Protein 7.6 6.4-8.2 GM/DL Albumin 3.8 3.2-4.5 GM/DL Lactic Acid Level 1.89 0.50-2.00 MMOL/L Troponin I < 0.30 <0.30 NG/ML B-Type Natriuretic Peptide 95.5 <100.0 PG/ML Urine Color YELLOW Urine Clarity SLIGHTLY CLOUDY Urine pH 7 5-9 Urine Specific [place] 1.005 L 1.016-1.022 Urine Protein NEGATIVE NEGATIVE Urine Glucose (UA) NEGATIVE NEGATIVE Urine Ketones NEGATIVE NEGATIVE Urine Nitrite NEGATIVE NEGATIVE Urine Bilirubin NEGATIVE NEGATIVE Urine Urobilinogen 1 NORMAL MG/DL Urine Leukocyte Esterase 1+ H NEGATIVE Urine RBC (Auto) 1+ H NEGATIVE Urine RBC RARE /HPF Urine WBC 0-2 /HPF Urine Squamous Epithelial Cells 10-25 H /HPF Urine Crystals NONE /LPF Urine Bacteria TRACE /HPF Urine Casts NONE /LPF Urine Mucus NEGATIVE /LPF Urine Culture Indicated NO Physical Exam Vital Signs Vital Signs - First Documented 11/25/17 11/25/17 09:45 12:56 Temp 97.0 Pulse 77 Resp 16 B/P (MAP) 148/107 (121) Pulse Ox 98 O2 Delivery Room Air O2 Flow Rate 2.00 Capillary Refill : Less Than 3 Seconds General Appearance: No Apparent Distress, WD/WN Eyes: Bilateral Eye Normal Inspection, Bilateral Eye PERRL, Bilateral Eye EOMI HEENT: PERRL/EOMI, TMs Normal, Normal ENT Inspection, Pharynx Normal Neck: Full Range of Motion, Normal Inspection, Non Tender, Supple, Carotid Bruit Respiratory: Chest Non Tender, No Accessory Muscle Use, No Respiratory Distress , Crackles, Rhonci Cardiovascular: Regular Rate, Rhythm, No Edema, No Gallop, No JVD, No Murmur, Normal Peripheral Pulses Gastrointestinal: Normal Bowel Sounds, No Organomegaly, No Pulsatile Mass, Non Tender, Soft Back: Normal Inspection, No CVA Tenderness, No Vertebral Tenderness Extremity: Normal Capillary Refill, Normal Inspection, Normal Range of Motion, Non Tender, No Calf Tenderness, No Pedal Edema Neurologic/Psychiatric: Alert, Oriented x3, No Motor/Sensory Deficits, Normal Mood/Affect Skin: Normal Color, Warm/Dry Lymphatic: No Adenopathy A/P-Cardiology Admission Diagnosis Fever Pleural effusion Paroxysmal atrial fibrillation Hypertension Assessment/Plan Fever, diaphoresis, elevated CRP with normal sedimentation rate, leukocytosis, questionable sepsis. Had blood culture done and receiving empiric antibiotic. Continue to monitor closely. Managed by primary care physician Pleural effusion, status post thoracentesis done in August 2017 and then in October 2017. Slightly worsening effusion on the left side. Continue to monitor, managed by Dr. Moore. Pericardial effusion, underwent pericardial window on September 03, 2017. Has been in remission. Planning to evaluate 2-D echocardiogram. History of paroxysmal atrial fibrillation, had transient episode in August 2017, another episode in September 2017. No further episodes were reported [id number] score of 2, yearly risk of stroke without oral anticoagulation is 2.2 percent. Patient has history of DVT, venous Doppler study was negative. Restart home medications and monitor Recent pneumonia, pleural effusion, treated with Dr. Moore. Chest pain, nonspecific etiology-underwent stress test August 2017 revealing no ischemia or infarct, no chest pain was reported at this time. Continue to monitor Hypertension-controlled. Continue to monitor blood pressure/heart rate COPD/emphysema-managed by Dr. Moore Tobaccoism, educated in length about smoking cessation Clinical Quality Measures DVT/VTE Risk/Contraindication: Risk Factor Score Per Nursin RFS Level Per Nursing on Admit: 4+=Very High HEBERT LAZO MD Nov 25, 2017 16:35
[2017-11-25] MEDS ORDERED: NON-FORMULARY MEDICATION 1 EA EA (Albuterol Sulfate (Proair Hfa) 2 PUFF) INH PRN (16:45)
[2017-11-25] MEDS: PIPERACILLIN SODIUM/TAZOBACTAM 4.5 GM in NS (IVPB) 100 ML IV SCH (18:25)
[2017-11-25] MEDS: OMEGA 3 (FISH OIL) 1000 MG CAP PO SCH (18:25)
[2017-11-25] MEDS: ALPRAZolam 0.5 MG (XANAX) TAB PO PRN (18:25)
[2017-11-25] MEDS: KETOROLAC 30 MG/ML VIAL IV SCH (18:27)
[2017-11-25 20:00] VITALS: BP_SYST 101; BP_SYST 85; BP_DIAS 67; BP_DIAS 72
[2017-11-25] MEDS: DOCUSATE SODIUM 100 MG (COLACE) CAP PO SCH (20:28)
[2017-11-25] MEDS: ATENOLOL 50 MG (TENORMIN) TAB PO SCH (20:28)
[2017-11-25] MEDS: SIMETHICONE 80 MG (MYLICON) CHEW PO PRN (20:28)
[2017-11-25] MEDS: RT-ADVAIR HFA 115/21 MCG PER PUFF IH SCH (21:34)
[2017-11-25] MEDS: diphenhydrAMINE 25 MG TAB (BENADRYL) PO PRN (23:30)
[2017-11-26] VITALS: BP 101/58
[2017-11-26] MEDS: NS IV 1000 ML 1,000 ML IV SCH ×3 (00:49→20:22)
[2017-11-26] MEDS: SIMETHICONE 80 MG (MYLICON) CHEW PO PRN (03:02)
[2017-11-26] MEDS: PIPERACILLIN SODIUM/TAZOBACTAM 4.5 GM in NS (IVPB) 100 ML IV SCH ×3 (03:02→18:48)
[2017-11-26] MEDS: KETOROLAC 30 MG/ML VIAL IV SCH ×2 (03:02→10:57)
[2017-11-26] MEDS: ONDANSETRON 4 MG/2 ML (SDV) Z0FRAN IV PRN (03:06)
[2017-11-26] MEDS: RT-ALBUTEROL SULF 2.5 MG/3 ML PRE-MIX VIAL IH PRN ×3 (03:17→15:08)
[2017-11-26] MEDS: ALPRAZolam 0.5 MG (XANAX) TAB PO PRN ×4 (03:46→23:35)
[2017-11-26 04:00] VITALS: BP 119/59
[2017-11-26] MEDS: PANTOPRAZOLE 40 MG (PROTONIX) TAB PO SCH (05:46)
[2017-11-26] MEDS: OMEGA 3 (FISH OIL) 1000 MG CAP PO SCH ×2 (05:46→17:55)
[2017-11-26] MEDS: oxyCODONE/APAP 5/325MG (PERCOCET 5) TABLET PO PRN ×4 (05:47→20:20)
[2017-11-26 06:48] LABS: HEMOGLOBIN 11.1 G/DL (11.5-16.0); MEAN PLATELET VOLUME 9.2 FL (7.4-10.4); RED BLOOD COUNT 3.97 10^6/uL (4.35-5.85); RED CELL DISTRIBUTION WIDTH 18.1 % (10.0-14.5); WHITE BLOOD COUNT 11.5 10^3/uL (4.3-11.0)
[2017-11-26] MEDS: RT-ADVAIR HFA 115/21 MCG PER PUFF IH SCH ×2 (07:59→19:48)
[2017-11-26 08:00] VITALS: BP 111/75
--- NOTE | 2017-11-26 08:38 | Cardiology Progress Note ---
Subjective Date Seen by Provider: Nov 26, 2017 Time Seen by Provider: 08:36 Subjective/Events-last exam Patient is sitting up in bed, no new complaints. Denies any CP or increased dyspnea. Review of Systems General: No Night Sweats, No Fatigue, No Malaise HEENT: No Visual Changes, No Dysphasia Pulmonary: No Dyspnea, No Cough Cardiovascular: No: Chest Pain, Palpitations Gastrointestinal: No: Nausea, Vomiting, Abdominal Pain Genitourinary: No Dysuria, No Frequency Musculoskeletal: No: neck pain, back pain Neurological: No: Weakness, Numbness, Change in speech, Confusion Objective-Cardiology Exam Last Set of Vital Signs Vital Signs Capillary Refill : Less Than 3 Seconds I&O Intake and Output 11/26/17 00:00 Intake Total 1140 ml Output Total 100 ml Balance 1040 ml Intake Oral 1040 ml IV Total 100 ml Output Urine Total 100 ml Daily Weight Change No General: Alert, Oriented X3, Cooperative HEENT: Atraumatic, PERRLA Neck: Supple, No JVD, No Thyromegaly Lungs: Other (diminished breath sounds bibasilarly) Heart: Regular Rate, Normal S1, Normal S2, No Murmurs Abdomen: Normal Bowel Sounds, Soft, No Tenderness, No Hepatosplenomegaly, No Masses Extremities: No Clubbing, No Cyanosis, No Edema, Normal Pulses, No Tenderness/ Swelling Skin: No Rashes, No Breakdown, No Significant Lesion Neuro: Normal Gait, Normal Speech, Strength at 5/5 X4 Ext, Normal Tone, Sensation Intact Psych/Mental Status: Mental Status NL, Mood NL Results Lab Laboratory Tests 11/25/17 09:55 11/26/17 06:00 A/P-Cardiology Admission Diagnosis Fever Pleural effusion Paroxysmal atrial fibrillation Hypertension Assessment/Plan Fever, diaphoresis, elevated CRP with normal sedimentation rate, leukocytosis, questionable sepsis. Had blood culture done and receiving empiric antibiotic. Continue to monitor closely. Managed by primary care physician Pleural effusion, status post thoracentesis done in August 2017 and then in October 2017. Slightly worsening effusion on the left side. Continue to monitor, managed by Dr. Moore. Pericardial effusion, underwent pericardial window on September 03, 2017. Has been in remission. Planning to evaluate 2-D echocardiogram. History of paroxysmal atrial fibrillation, had transient episode in August 2017, another episode in September 2017. No further episodes were reported [id number] score of 2, yearly risk of stroke without oral anticoagulation is 2.2 percent. Patient has history of DVT, venous Doppler study was negative. Restart home medications and monitor Recent pneumonia, pleural effusion, treated with Dr. Moore. Chest pain, nonspecific etiology-underwent stress test August 2017 revealing no ischemia or infarct, no chest pain was reported at this time. Continue to monitor Hypertension-controlled. Continue to monitor blood pressure/heart rate COPD/emphysema-managed by Dr. Moore Tobaccoism, educated in length about smoking cessation Clinical Quality Measures DVT/VTE Risk/Contraindication: Risk Factor Score Per Nursin RFS Level Per Nursing on Admit: 4+=Very High CLEVE ORTEGA Nov 26, 2017 08:37
[2017-11-26] MEDS: LORATADINE (CLARITIN) 10 MG TAB PO SCH (08:45)
[2017-11-26] MEDS: LACTOBACILLUS Acidoph/Bulgar (LACTINEX/FLORANEX) TAB PO SCH (08:45)
[2017-11-26] MEDS: DOCUSATE SODIUM 100 MG (COLACE) CAP PO SCH ×2 (08:45→20:19)
[2017-11-26] MEDS: LOSARTAN 25 MG (COZAAR) TAB PO SCH (09:30)
[2017-11-26] MEDS: ATENOLOL 50 MG (TENORMIN) TAB PO SCH ×2 (09:30→20:20)
--- NOTE | 2017-11-26 11:21 | Cardiology Progress Note ---
Subjective Date Seen by Provider: Nov 26, 2017 Time Seen by Provider: 11:20 Subjective/Events-last exam Patient is sitting in bed, still complaining of mild cough, denied any chest pain, had mild diaphoresis, no fever was reported. Review of Systems General: No Chills, Night Sweats, No Fatigue, No Malaise, No Appetite, No Other HEENT: No Head Aches, No Visual Changes, No Eye Pain, No Ear Pain, No Dysphasia , No Sinus Congestion, No Post Nasal Drip, No Sore Throat, No Other Pulmonary: No Dyspnea, Cough, No Pleuritic Chest Pain, No Other Cardiovascular: No: Chest Pain, Palpitations, Orthopnea, Paroxysmal Noc. Dyspnea, Edema, Lt Headedness, Other Objective-Cardiology Exam Last Set of Vital Signs Vital Signs Capillary Refill : Less Than 3 Seconds I&O Intake and Output 11/26/17 00:00 Intake Total 1140 ml Output Total 100 ml Balance 1040 ml Intake Oral 1040 ml IV Total 100 ml Output Urine Total 100 ml Daily Weight Change No General: Alert, Oriented X3, Cooperative HEENT: Atraumatic, PERRLA Neck: Supple, No JVD, No Thyromegaly Lungs: Other Heart: Regular Rate, Normal S1, Normal S2, No Murmurs Abdomen: Normal Bowel Sounds, Soft, No Tenderness, No Hepatosplenomegaly, No Masses Extremities: No Clubbing, No Cyanosis, No Edema, Normal Pulses, No Tenderness/ Swelling Skin: No Rashes, No Breakdown, No Significant Lesion Neuro: Normal Gait, Normal Speech, Strength at 5/5 X4 Ext, Normal Tone, Sensation Intact Psych/Mental Status: Mental Status NL, Mood NL Results Lab Laboratory Tests 11/26/17 06:00 A/P-Cardiology Admission Diagnosis Fever Pleural effusion Paroxysmal atrial fibrillation Hypertension Assessment/Plan Fever, diaphoresis, elevated CRP with normal sedimentation rate, leukocytosis, questionable sepsis. Had blood culture done and receiving empiric antibiotic. Repeat CRP showed trending down, continue with antibiotic and awaiting culture results Pleural effusion, status post thoracentesis done in August 2017 and then in October 2017. Slightly worsening effusion on the left side. Continue to monitor, managed by Dr. Moore. Pericardial effusion, underwent pericardial window on September 03, 2017. Has been in remission, awaiting for the repeat echo History of paroxysmal atrial fibrillation, had transient episode in August 2017, another episode in September 2017. No further episodes were reported [id number] score of 2, yearly risk of stroke without oral anticoagulation is 2.2 percent. Patient has history of DVT, venous Doppler study was negative. Restart home medications and monitor Recent pneumonia, pleural effusion, treated with Dr. Moore. Chest pain, nonspecific etiology-underwent stress test August 2017 revealing no ischemia or infarct, no chest pain was reported at this time. Continue to monitor Hypertension-controlled. Continue to monitor blood pressure/heart rate COPD/emphysema-managed by Dr. Moore Tobaccoism, educated in length about smoking cessation Clinical Quality Measures DVT/VTE Risk/Contraindication: Risk Factor Score Per Nursin RFS Level Per Nursing on Admit: 4+=Very High HEBERT LAZO MD Nov 26, 2017 11:21
[2017-11-26 11:51] VITALS: BP 102/68
--- NOTE | 2017-11-26 15:03 | History & Physicial (CHS) ---
HPI History of Present Illness: Marti is a patient well known to [facility] and the cardiology service due to a recent bout with a pericardial effusion as well as pleural effusion. SHe received a pericardial window in August 2017 at [facility]. She was admitted for overnight stay in September due to atrial fibrillation with RVR. She was admitted in October for sepsis, though I can only find that 2 of the 4 bottles were positive for CONS. Patient presented to ER a few days ago and was discharged home. SHe presented again last night and was found to have an increase in her SOB and CRP to >30. She was admitted for further work up and treatment of her pleural and pericardial effusions. Source: patient, RN/MD, RN notes reviewed, old records Exam Limitations: no limitations Date seen by provider: Nov 26, 2017 Time Seen by Provider: 09:00 Attending Physician Kaitlin Turner MD [facility] [place] Consult Dr Campbell, Cardiology Date of Admission Nov 25, 2017 at 12:51 pm Home Medications Home Medications Reviewed patient Home Medication Reconciliation Form Allergies Coded Allergies: buspirone HCl (Verified Allergy, Unknown, 08/14/15) etodolac (Verified Allergy, Unknown, 08/14/15) NSAIDS (Non-Steroidal Anti-Inflamma (Verified Adverse Reaction, Unknown, 08/14/15) Neuromuscular Blockers, Steroidal (Verified Adverse Reaction, Unknown, ) gabapentin (Verified Adverse Reaction, Unknown, 08/14/15) DVZ-[id number]-Cybmok Hx Patient Social History Alcohol Use: Denies Use Recreational Drug Use: No Smoking Status: Current Everyday Smoker Type Used: Cigarettes 2nd Hand Smoke Exposure: Yes Recent Foreign Travel: No Contact w/other who traveled: No Recent Hopitalizations: Yes (SEPSIS 10/2017) Recent Infectious Disease Expo: No Physical Abuse Screen: No Sexual Abuse: No Immunizations Up To Date Tetanus Booster (TDap): Unknown Date of Pneumonia Vaccine: Jun 07, 2016 Date of Influenza Vaccine: Nov 08, 2017 Past Medical History Pericardial effusion with tamponade requiring pericardial window HTN Chronic pain Family Medical History Family History: FH: cirrhosis 19 MOTHER FH: liver cancer 19 MOTHER FHx: lung cancer 19 FATHER Hypertension 19 FATHER 19 MOTHER Review of Systems ([facility]) Constitutional: no symptoms reported All Other Systems Reviewed Negative Unless Noted: Yes (Negative excepted noted.) Reviewed Test Results Reviewed Test Results Lab Laboratory Tests Test 11/25/17 09:55 3/5/18 11:25 11/25/17 11:34 11/26/17 06:00 Range/Units White Blood Count 14.4 H 11.5 H 4.3-11.0 10^3/uL Red Blood Count 4.99 3.97 L 4.35-5.85 10^6/uL Hemoglobin 14.0 11.1 #L 11.5-16.0 G/DL Hematocrit 43 34 L 35-52 % Mean Corpuscular Volume 85 86 80-99 FL Mean Corpuscular Hemoglobin 28 28 25-34 PG Mean Corpuscular Hemoglobin Concent 33 32 32-36 G/DL Red Cell Distribution Width 18.8 H 18.1 H 10.0-14.5 % Platelet Count 281 236 130-400 10^3/uL Mean Platelet Volume 8.7 9.2 7.4-10.4 FL Neutrophils (%) (Auto) 78 H 42-75 % Lymphocytes (%) (Auto) 14 12-44 % Monocytes (%) (Auto) 8 0-12 % Eosinophils (%) (Auto) 0 0-10 % Basophils (%) (Auto) 0 0-10 % Neutrophils # (Auto) 11.2 H 1.8-7.8 X 10^3 Lymphocytes # (Auto) 2.0 1.0-4.0 X 10^3 Monocytes # (Auto) 1.2 H 0.0-1.0 X 10^3 Eosinophils # (Auto) 0.0 0.0-0.3 10^3/uL Basophils # (Auto) 0.0 0.0-0.1 10^3/uL Neutrophils % (Manual) 76 % Lymphocytes % (Manual) 15 % Monocytes % (Manual) 9 % Eosinophils % (Manual) 0 % Basophils % (Manual) 0 % Band Neutrophils 0 % Anisocytosis SLIGHT Erythrocyte Sedimentation Rate 19 0-30 MM/HR Sodium Level 136 135-145 MMOL/L Potassium Level 4.5 3.6-5.0 MMOL/L Chloride Level 98 98-107 MMOL/L Carbon Dioxide Level 28 21-32 MMOL/L Anion Gap 10 5-14 MMOL/L Blood Urea Nitrogen 6 L 7-18 MG/DL Creatinine 0.95 0.60-1.30 MG/DL Estimat Glomerular Filtration Rate > 60 BUN/Creatinine Ratio 6 Glucose Level 109 H 70-105 MG/DL Calcium Level 9.7 8.5-10.1 MG/DL Total Bilirubin 0.8 0.1-1.0 MG/DL Aspartate Amino Transf (AST/SGOT) 8 5-34 U/L Alanine Aminotransferase (ALT/SGPT) 6 0-55 U/L Alkaline Phosphatase 99 40-136 U/L C-Reactive Protein High Sensitivity 30.42 H 24.04 H 0.00-0.50 MG/DL Total Protein 7.6 6.4-8.2 GM/DL Albumin 3.8 3.2-4.5 GM/DL Lactic Acid Level 1.89 0.50-2.00 MMOL/L Troponin I < 0.30 <0.30 NG/ML B-Type Natriuretic Peptide 95.5 <100.0 PG/ML Urine Color YELLOW Urine Clarity SLIGHTLY CLOUDY Urine pH 7 5-9 Urine Specific [place] 1.005 L 1.016-1.022 Urine Protein NEGATIVE NEGATIVE Urine Glucose (UA) NEGATIVE NEGATIVE Urine Ketones NEGATIVE NEGATIVE Urine Nitrite NEGATIVE NEGATIVE Urine Bilirubin NEGATIVE NEGATIVE Urine Urobilinogen 1 NORMAL MG/DL Urine Leukocyte Esterase 1+ H NEGATIVE Urine RBC (Auto) 1+ H NEGATIVE Urine RBC RARE /HPF Urine WBC 0-2 /HPF Urine Squamous Epithelial Cells 10-25 H /HPF Urine Crystals NONE /LPF Urine Bacteria TRACE /HPF Urine Casts NONE /LPF Urine Mucus NEGATIVE /LPF Urine Culture Indicated NO Physical Exam-(CHC) Physical Exam Vital Signs VS - Last 72 Hours, by Label 11/25/17 11/25/17 11/25/17 11/25/17 09:45 12:56 13:25 13:45 Temp 97.0 97.0 97.4 Pulse 77 67 69 Resp 16 16 20 B/P (MAP) 148/107 (121) 145/99 (121) 108/71 (83) Pulse Ox 98 98 96 O2 Delivery Room Air Nasal Cannula Nasal Cannula Nasal Cannula O2 Flow Rate 2.00 2.00 2.00 11/25/17 11/25/17 11/25/17 11/25/17 16:00 16:24 18:55 19:00 Temp 98.1 Pulse 69 70 60 Resp 18 B/P (MAP) 108/58 (75) Pulse Ox 96 O2 Delivery Nasal Cannula Nasal Cannula O2 Flow Rate 2.00 2.00 3/5/18 11/25/17 11/25/17 11/26/17 20:00 20:30 21:34 00:00 Temp 96.8 98.5 Pulse 66 67 Resp 18 18 B/P (MAP) 101/67 (78) 101/58 (72) Pulse Ox 98 95 97 O2 Delivery Nasal Cannula Nasal Cannula Nasal Cannula Nasal Cannula O2 Flow Rate 2.00 2.00 2.00 2.00 11/26/17 11/26/17 11/26/17 11/26/17 01:00 03:17 04:00 07:46 Temp 98.0 Pulse 63 72 Resp 22 B/P (MAP) 119/59 (79) Pulse Ox 96 94 93 O2 Delivery Nasal Cannula Nasal Cannula Nasal Cannula O2 Flow Rate 2.00 2.00 2.00 11/26/17 11/26/17 11/26/17 08:00 08:00 11:51 Temp 97.4 97.0 Pulse 76 72 Resp 18 20 B/P (MAP) 111/75 (87) 102/68 (79) Pulse Ox 93 98 94 O2 Delivery Nasal Cannula Nasal Cannula Nasal Cannula O2 Flow Rate 2.00 2.00 2.00 Capillary Refill : Less Than 3 Seconds General Appearance: WD/WN, no apparent distress, obese, other (chronically ill appearing) HEENT: PERRL/EOMI, normal ENT inspection, pharynx normal Neck: non-tender, full range of motion, supple, normal inspection Respiratory: chest non-tender, lungs clear, normal breath sounds, no respiratory distress, no accessory muscle use Cardiovascular: regular rate, rhythm, no edema, no gallop, no JVD, no murmur Gastrointestinal: normal bowel sounds, non tender, soft, no organomegaly, no pulsatile mass Back: normal inspection Extremities: normal range of motion, non-tender, normal inspection, no pedal edema, no calf tenderness, normal capillary refill Neurologic/Psychiatric: 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 Assessment & Plan CHRONIC PLEURAL EFFUSION 3/6 - Stable. NO intervention necesary at present. HISTORY OF PERICARDIAL EFFUSION HISTORY OF PERICARDIAL WINDOW 3/ - being managed by Dr Campbell who agrees taht antibiotics are not indicated today. CRP was elevated but is already down. She does not have an impressive WBC and is likely to always have a slight leukocytosis. We are going to watch her blood cultures. I am going to stop the ZOsyn today and see how she does without it. At this point, we are at higher risk of over-utilizing antibiotics than curing any potential bacterial infectino, whcih we have yet to find. PAROXYSMAL ATRIAL FIBRILLATION 11/26 - no current issues TOBACCO ABUSE COPD 11/26 - have counseled patient taht she really must quit smoking. She is contemplative and states she has already decreased a few cigarettes per day. I do believe that her SOB is somewhat related to the COPD and not always to cherry pleural effusion. ANXIETY 11/26 - Marti has a signifcant component of anxiety. WE will plan to have her switch to my service as an outpatient, and I will see her regularly, every 2-4 weeks. I also want to get her in with a therapist in light of all she has been through. I do think her anxiety dramatically contributes to her symptoms. 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 DVT PROPH: ambulate TID, SCDs GI pROPH: not indicated Clinical Quality Measures DVT/VTE Risk/Contraindication: Risk Factor Score Per Nursin RFS Level Per Nursing on Admit: 4+=Very High Copy Copies To 1: KAITLIN TURNER MD, JULIE A MD Nov 26, 2017 3:03 pm
[2017-11-26 16:00] VITALS: BP 120/65
[2017-11-26] MEDS: ASPIRIN E.C. 325 MG (ECOTRIN) TABLET PO SCH (16:26)
[2017-11-26] MEDS: diphenhydrAMINE 25 MG TAB (BENADRYL) PO PRN (23:35)
[2017-11-27] VITALS: BP 119/62
[2017-11-27] MEDS: RT-ALBUTEROL SULF 2.5 MG/3 ML PRE-MIX VIAL IH PRN (00:12)
[2017-11-27] MEDS: PIPERACILLIN SODIUM/TAZOBACTAM 4.5 GM in NS (IVPB) 100 ML IV SCH ×2 (02:37→11:43)
[2017-11-27] MEDS: oxyCODONE/APAP 5/325MG (PERCOCET 5) TABLET PO PRN ×2 (04:23→09:42)
[2017-11-27 05:24] LABS: BASOPHILS % (AUTO) 0 % (0-10); EOSINOPHILS # (AUTO) 0.1 10^3/uL (0.0-0.3); EOSINOPHILS % (AUTO) 1 % (0-10); HEMATOCRIT 32 % (35-52); HEMOGLOBIN 10.1 G/DL (11.5-16.0); LYMPHOCYTES # (AUTO) 1.4 X 10^3 (1.0-4.0); LYMPHOCYTES % (AUTO) 19 % (12-44); MEAN CORPUSCULAR HEMOGLOBIN 27 PG (25-34); MEAN CORPUSCULAR HGB CONC 32 G/DL (32-36); MEAN CORPUSCULAR VOLUME 87 FL (80-99); MONOCYTES # (AUTO) 0.6 X 10^3 (0.0-1.0); MONOCYTES % (AUTO) 8 % (0-12); NEUTROPHILS # (AUTO) 5.5 X 10^3 (1.8-7.8); NEUTROPHILS % (AUTO) 72 % (42-75); PLATELET COUNT 234 10^3/uL (130-400); RED BLOOD COUNT 3.68 10^6/uL (4.35-5.85); RED CELL DISTRIBUTION WIDTH 18.1 % (10.0-14.5); WHITE BLOOD COUNT 7.7 10^3/uL (4.3-11.0)
[2017-11-27 05:55] LABS: BUN/CREATININE RATIO 8; CALCIUM 7.8 MG/DL (8.5-10.1); CARBON DIOXIDE 22 MMOL/L (21-32); CHLORIDE 110 MMOL/L (98-107); CREATININE SERUM 0.71 MG/DL (0.60-1.30); GFR ESTIMATED > 60; GLUCOSE 102 MG/DL (70-105); POTASSIUM 3.4 MMOL/L (3.6-5.0); SODIUM 139 MMOL/L (135-145)
[2017-11-27] MEDS: PANTOPRAZOLE 40 MG (PROTONIX) TAB PO SCH (06:14)
[2017-11-27] MEDS: OMEGA 3 (FISH OIL) 1000 MG CAP PO SCH (06:14)
[2017-11-27] MEDS: NS IV 1000 ML 1,000 ML IV SCH (06:14)
[2017-11-27] MEDS: ALPRAZolam 0.5 MG (XANAX) TAB PO PRN ×2 (06:14→11:42)
[2017-11-27] MEDS: RT-ADVAIR HFA 115/21 MCG PER PUFF IH SCH (07:41)
[2017-11-27 08:00] VITALS: BP 133/82
--- NOTE | 2017-11-27 09:03 | Cardiology Progress Note ---
Subjective Date Seen by Provider: Nov 27, 2017 Time Seen by Provider: 08:58 Subjective/Events-last exam Patient is sitting up in bed, no chest pain. Complains of dyspnea with exertion. Objective-Cardiology Exam Last Set of Vital Signs Vital Signs 11/27/17 08:00 Temp 97.0 Pulse 78 Resp 18 B/P (MAP) 133/82 (99) Pulse Ox 95 O2 Delivery Nasal Cannula O2 Flow Rate 2.00 Capillary Refill : Less Than 3 Seconds I&O Intake and Output 11/27/17 00:00 Intake Total 5100 ml Output Total 1550 ml Balance 3550 ml Intake Oral 1700 ml IV Total 3400 ml Output Urine Total 1550 ml # Voids 1 General: Alert, Oriented X3, Cooperative HEENT: Atraumatic, PERRLA Neck: Supple, No JVD, No Thyromegaly Lungs: Other Heart: Regular Rate, Normal S1, Normal S2, No Murmurs Abdomen: Normal Bowel Sounds, Soft, No Tenderness, No Hepatosplenomegaly, No Masses Extremities: No Clubbing, No Cyanosis, No Edema, Normal Pulses, No Tenderness/ Swelling Skin: No Rashes, No Breakdown, No Significant Lesion Neuro: Normal Gait, Normal Speech, Strength at 5/5 X4 Ext, Normal Tone, Sensation Intact Psych/Mental Status: Mental Status NL, Mood NL Results Lab Laboratory Tests 11/27/17 05:15 A/P-Cardiology Admission Diagnosis Fever Pleural effusion Paroxysmal atrial fibrillation Hypertension Assessment/Plan Fever, diaphoresis, elevated CRP with normal sedimentation rate, leukocytosis, questionable sepsis. Had blood culture done and receiving empiric antibiotic. Repeat CRP showed trending down, continue with antibiotic, blood cultures so far have been negative. Pleural effusion, status post thoracentesis done in August 2017 and then in October 2017. Slightly worsening effusion on the left side. Continue to monitor, managed by Dr. Moore. Pericardial effusion, underwent pericardial window on September 03, 2017. Has been in remission, repeat 2D Echo done yesterday, results pending. History of paroxysmal atrial fibrillation, had transient episode in August 2017, another episode in September 2017. No further episodes were reported [id number] score of 2, yearly risk of stroke without oral anticoagulation is 2.2 percent. Patient has history of DVT, venous Doppler study was negative. Maintained on ASA. Recent pneumonia, pleural effusion, treated with Dr. Moore. Chest pain, nonspecific etiology-underwent stress test August 2017 revealing no ischemia or infarct, no chest pain was reported at this time. Continue to monitor Hypertension-was hypotensive yesterday. Blood pressure better today. Resume home blood pressure medications and continue to monitor. COPD/emphysema-managed by Dr. Teresa Liu, educated in length about smoking cessation Clinical Quality Measures DVT/VTE Risk/Contraindication: Risk Factor Score Per Nursin RFS Level Per Nursing on Admit: 4+=Very High CLEVE ORTEGA Nov 27, 2017 09:03
--- NOTE | 2017-11-27 09:09 | Discharge Instructions ---
Discharge [facility] Discharge Medications New, Converted or Re-Newed RX: Other Continued Medications: Albuterol Sulfate (Proair Hfa) 1 Puff Puff 2 PUFF INH QID PRN for SHORTNESS OF BREATH, INHALER Albuterol Sulfate (Albuterol Sulfate) 2.5 Mg/3 Ml Vial.neb 2.5 MG NEB Q4H PRN for SHORTNESS OF BREATH, EA Alprazolam (Alprazolam) 0.5 Mg Tablet 0.5 MG PO TID PRN for ANXIETY, TAB Amiodarone HCl (Amiodarone HCl) 200 Mg Tablet 200 MG PO DAILY, TAB Aspirin (Aspirin EC) 325 Mg Tablet.dr 325 MG PO DAILY, TAB Atenolol (Atenolol) 100 Mg Tablet 50 MG PO BID, TAB TAKES 1/2 (100MG) TABLET Cetirizine HCl (Cetirizine HCl) 10 Mg Tablet 10 MG PO DAILY, TAB Cholecalciferol (Vitamin D3) (Vitamin D3) 5,000 Unit Tablet 5000 UNIT PO DAILY, TAB Cyanocobalamin (Cyanocobalamin Injection) 1,000 Mcg/Ml Inj 1000 MCG IJ MONTHLY, VIAL Dicyclomine HCl (Dicyclomine HCl) 20 Mg Tablet 20 MG PO QID PRN for STOMACH UPSET, TAB Docusate Sodium (Colace) 100 Mg Capsule 100 MG PO BID PRN for CONSTIPATION-1ST LINE, CAP Docusate Sodium (Colace) 100 Mg Capsule 100 MG PO BID, CAP Fluticasone Propionate (Fluticasone Propionate) 16 Gm Terrell.susp 1 SPRAY NSEACH BID, EA Fluticasone/Salmeterol (Advair 500-50 Diskus) 1 Each Blst.w.dev 1 PUFF IH BID, EA Guaifenesin (Guaifenesin) 400 Mg Tablet 400 MG PO Q4H PRN for CONGESTION, TAB Hydrocodone Bit/Acetaminophen (Hydrocodone/Acetaminophen 5/325mg Tablet) 1 Tab Tab 1 TAB PO Q6H PRN for PAIN-MODERATE, TAB Ibuprofen (Ibuprofen) 600 Mg Tablet 600 MG PO Q6H PRN for PAIN-MILD, TAB Lactobacillus Acidophilus (Acidophilus) 1 Each Capsule 1 CAP PO DAILY, CAP Losartan Potassium (Losartan Potassium) 25 Mg Tablet 25 MG PO DAILY, TAB [place] 3 Polyunsat Fatty Acids (Fish Oil 1,000 mg Capsule) 1,000 Mg Cap 2000 MG PO BID, CAP Omeprazole (Omeprazole) 40 Mg Capsule.dr 40 MG PO DAILY, CAP Ranitidine HCl (Ranitidine HCl) 150 Mg Tablet 150 MG PO BID, TAB Simethicone (Gas-X) 125 Mg Tab.chew 2 TAB PO BID PRN for GAS, TAB Discontinued Medications: Guaifenesin/Dextromethorphan (Guaifenesin Dm Syrup) 5 Ml Syrup 10 ML PO Q6H PRN for COUGH, ML Patient Instructions Goal/Follow Up Appt: DR TURNER DECEMBER 04 AT 11AM Patient Instructions: PLEASE TAKE YOUR MEDICATIONS PRESCRIBED. DR TURNER WILL BE YOUR NEW DOCTOR SHE WORKS WITH SINTIA JOHNSON APRN. PLEASE BE THINKING ABOUT QUITTING SMOKING; WE WILL DISCUSS STOPPING SMOKING AIDS AT YOUR APPOINTMENT. Return to The Hospital For: FEVER >100.5, EXTREME SHORTNESS OF BREATH, SWELLING FEET Activity & Diet Discharge Diet: Low Fat/Low Cholesterol Activity as Tolerated: Yes Copy Copies To 1: KAITLIN TURNER MD, JULIE A MD Nov 27, 2017 9:09 am
[2017-11-27] MEDS: ATENOLOL 50 MG (TENORMIN) TAB PO SCH (09:30)
[2017-11-27] MEDS: LOSARTAN 25 MG (COZAAR) TAB PO SCH (09:35)
[2017-11-27] MEDS: DOCUSATE SODIUM 100 MG (COLACE) CAP PO SCH (09:38)
[2017-11-27] MEDS: LORATADINE (CLARITIN) 10 MG TAB PO SCH (09:38)
[2017-11-27] MEDS: LACTOBACILLUS Acidoph/Bulgar (LACTINEX/FLORANEX) TAB PO SCH (09:38)
[2017-11-27] MEDS: ASPIRIN E.C. 325 MG (ECOTRIN) TABLET PO SCH (09:39)
--- NOTE | 2017-11-27 12:31 | Discharge Summary ---
Diagnosis/Chief Complaint Date of Admission Nov 25, 2017 at 12:51 Date of Discharge November 27, 2017 Admission Diagnosis Admission Diagnosis KINDLY SEE BELOW Discharge Diagnosis CHRONIC PLEURAL EFFUSION / - Stable. NO intervention necesary at present. HISTORY OF PERICARDIAL EFFUSION HISTORY OF PERICARDIAL WINDOW 3 - being managed by Dr Campbell who agrees taht antibiotics are not indicated today. CRP was elevated but is already down. She does not have an impressive WBC and is likely to always have a slight leukocytosis. We are going to watch her blood cultures. I am going to stop the ZOsyn today and see how she does without it. At this point, we are at higher risk of over-utilizing antibiotics than curing any potential bacterial infectino, whcih we have yet to find. PAROXYSMAL ATRIAL FIBRILLATION 11/26 - no current issues TOBACCO ABUSE COPD 11/26 - have counseled patient pipoht she really must quit smoking. She is contemplative and states she has already decreased a few cigarettes per day. I do believe that her SOB is somewhat related to the COPD and not always to cherry pleural effusion. ANXIETY 11/26 - Marti has a signifcant component of anxiety. WE will plan to have her switch to my service as an outpatient, and I will see her regularly, every 2-4 weeks. I also want to get her in with a therapist in light of all she has been through. I do think her anxiety dramatically contributes to her symptoms. 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 DISCHARGE: Marti was observed in hospital for 48h to ensure that the blood cultures remained negative. We also discontinued the Zosyn after 24h, and she remained afebrile. In fact, the majority of her complaints on the day of discharge were related to her chronic pain and that she wanted something besides hydrocodone for her pain. I discussed with her that chronic pain is an outpatient issue, and we can follow that up later. I do believe that Marti has significant anxiety, so I am going to try to see her more frequently in the clinic to see if we can decrease ER visits and hospitalizations. Chief Complaint/HPI Chief Complaint/HPI Marti is a patient well known to [facility] and the cardiology service due to a recent bout with a pericardial effusion as well as pleural effusion. SHe received a pericardial window in August 2017 at [place]. She was admitted for overnight stay in September due to atrial fibrillation with RVR. She was admitted in October for sepsis, though I can only find that 2 of the 4 bottles were positive for CONS. Patient presented to ER a few days ago and was discharged home. SHe presented again last night and was found to have an increase in her SOB and CRP to >30. She was admitted for further work up and treatment of her pleural and pericardial effusions. Discharge Summary-Simple/Stand Consultations Dr Campbell, Cardiology Discharge Physical Examination Allergies: Coded Allergies: buspirone HCl (Verified Allergy, Unknown, 08/14/15) etodolac (Verified Allergy, Unknown, 08/14/15) NSAIDS (Non-Steroidal Anti-Inflamma (Verified Adverse Reaction, Unknown, 08/14/15) Neuromuscular Blockers, Steroidal (Verified Adverse Reaction, Unknown, ) gabapentin (Verified Adverse Reaction, Unknown, 08/14/15) Vitals & I&Os Vital Sign - Last 12Hours Date Time Temp Pulse Resp B/P (MAP) Pulse Ox O2 Delivery O2 Flow Rate FiO2 11/27/17 08:00 97.0 78 18 133/82 (99) 95 Nasal Cannula 2.00 Intake and Output 11/27/17 00:00 Intake Total 2300 ml Output Total 800 ml Balance 1500 ml General Appearance: Alert, Oriented X3, Cooperative, No Acute Distress Respiratory: Clear to Auscultation, Normal Air Movement Cardiovascular: Regular Rate, Normal S1, Normal S2, No Murmurs, Gallops, Rubs Abdominal: Normal Bowel Sounds, Soft, No Tenderness, No Hepatosplenomegaly, No Masses Extremities: No Clubbing, No Cyanosis, No Edema Neuro: Strength at 5/5 X4 Ext, Normal Tone, Sensation Intact Psych/Mental Status: Mental Status NL, Mood NL Hospital Course See final discharge diagnosis. Labs Laboratory Tests Test 11/25/17 09:55 11/25/17 11:25 11/25/17 11:34 11/26/17 06:00 Range/Units White Blood Count 14.4 H 11.5 H 4.3-11.0 10^3/uL Red Blood Count 4.99 3.97 L 4.35-5.85 10^6/uL Hemoglobin 14.0 11.1 #L 11.5-16.0 G/DL Hematocrit 43 34 L 35-52 % Mean Corpuscular Volume 85 86 80-99 FL Mean Corpuscular Hemoglobin 28 28 25-34 PG Mean Corpuscular Hemoglobin Concent 33 32 32-36 G/DL Red Cell Distribution Width 18.8 H 18.1 H 10.0-14.5 % Platelet Count 281 236 130-400 10^3/uL Mean Platelet Volume 8.7 9.2 7.4-10.4 FL Neutrophils (%) (Auto) 78 H 42-75 % Lymphocytes (%) (Auto) 14 12-44 % Monocytes (%) (Auto) 8 0-12 % Eosinophils (%) (Auto) 0 0-10 % Basophils (%) (Auto) 0 0-10 % Neutrophils # (Auto) 11.2 H 1.8-7.8 X 10^3 Lymphocytes # (Auto) 2.0 1.0-4.0 X 10^3 Monocytes # (Auto) 1.2 H 0.0-1.0 X 10^3 Eosinophils # (Auto) 0.0 0.0-0.3 10^3/uL Basophils # (Auto) 0.0 0.0-0.1 10^3/uL Neutrophils % (Manual) 76 % Lymphocytes % (Manual) 15 % Monocytes % (Manual) 9 % Eosinophils % (Manual) 0 % Basophils % (Manual) 0 % Band Neutrophils 0 % Anisocytosis SLIGHT Erythrocyte Sedimentation Rate 19 0-30 MM/HR Sodium Level 136 135-145 MMOL/L Potassium Level 4.5 3.6-5.0 MMOL/L Chloride Level 98 98-107 MMOL/L Carbon Dioxide Level 28 21-32 MMOL/L Anion Gap 10 5-14 MMOL/L Blood Urea Nitrogen 6 L 7-18 MG/DL Creatinine 0.95 0.60-1.30 MG/DL Estimat Glomerular Filtration Rate > 60 BUN/Creatinine Ratio 6 Glucose Level 109 H 70-105 MG/DL Calcium Level 9.7 8.5-10.1 MG/DL Total Bilirubin 0.8 0.1-1.0 MG/DL Aspartate Amino Transf (AST/SGOT) 8 5-34 U/L Alanine Aminotransferase (ALT/SGPT) 6 0-55 U/L Alkaline Phosphatase 99 40-136 U/L C-Reactive Protein High Sensitivity 30.42 H 24.04 H 0.00-0.50 MG/DL Total Protein 7.6 6.4-8.2 GM/DL Albumin 3.8 3.2-4.5 GM/DL Lactic Acid Level 1.89 0.50-2.00 MMOL/L Troponin I < 0.30 <0.30 NG/ML B-Type Natriuretic Peptide 95.5 <100.0 PG/ML Urine Color YELLOW Urine Clarity SLIGHTLY CLOUDY Urine pH 7 5-9 Urine Specific [place] 1.005 L 1.016-1.022 Urine Protein NEGATIVE NEGATIVE Urine Glucose (UA) NEGATIVE NEGATIVE Urine Ketones NEGATIVE NEGATIVE Urine Nitrite NEGATIVE NEGATIVE Urine Bilirubin NEGATIVE NEGATIVE Urine Urobilinogen 1 NORMAL MG/DL Urine Leukocyte Esterase 1+ H NEGATIVE Urine RBC (Auto) 1+ H NEGATIVE Urine RBC RARE /HPF Urine WBC 0-2 /HPF Urine Squamous Epithelial Cells 10-25 H /HPF Urine Crystals NONE /LPF Urine Bacteria TRACE /HPF Urine Casts NONE /LPF Urine Mucus NEGATIVE /LPF Urine Culture Indicated NO Test 11/27/17 05:15 Range/Units White Blood Count 7.7 4.3-11.0 10^3/uL Red Blood Count 3.68 L 4.35-5.85 10^6/uL Hemoglobin 10.1 L 11.5-16.0 G/DL Hematocrit 32 L 35-52 % Mean Corpuscular Volume 87 80-99 FL Mean Corpuscular Hemoglobin 27 25-34 PG Mean Corpuscular Hemoglobin Concent 32 32-36 G/DL Red Cell Distribution Width 18.1 H 10.0-14.5 % Platelet Count 234 130-400 10^3/uL Mean Platelet Volume 9.0 7.4-10.4 FL Neutrophils (%) (Auto) 72 42-75 % Lymphocytes (%) (Auto) 19 12-44 % Monocytes (%) (Auto) 8 0-12 % Eosinophils (%) (Auto) 1 0-10 % Basophils (%) (Auto) 0 0-10 % Neutrophils # (Auto) 5.5 1.8-7.8 X 10^3 Lymphocytes # (Auto) 1.4 1.0-4.0 X 10^3 Monocytes # (Auto) 0.6 0.0-1.0 X 10^3 Eosinophils # (Auto) 0.1 0.0-0.3 10^3/uL Basophils # (Auto) 0.0 0.0-0.1 10^3/uL Sodium Level 139 135-145 MMOL/L Potassium Level 3.4 L 3.6-5.0 MMOL/L Chloride Level 110 H 98-107 MMOL/L Carbon Dioxide Level 22 21-32 MMOL/L Anion Gap 7 5-14 MMOL/L Blood Urea Nitrogen 6 L 7-18 MG/DL Creatinine 0.71 0.60-1.30 MG/DL Estimat Glomerular Filtration Rate > 60 BUN/Creatinine Ratio 8 Glucose Level 102 70-105 MG/DL Calcium Level 7.8 L 8.5-10.1 MG/DL C-Reactive Protein High Sensitivity 24.48 H 0.00-0.50 MG/DL Discharge Instructions to patient/family Please see electronic discharge instructions given to patient. Discharge Medications Reviewed and agree with Discharge Medication list on patient's Discharge Instruction sheet Clinical Quality Measures DVT/VTE Risk/Contraindication: Risk Factor Score Per Nursin RFS Level Per Nursing on Admit: 4+=Very High Copy Copies To 1: KAITLIN TURNER MD, JULIE A MD Nov 27, 2017 12:31 pm
[2017-11-27 17:10] VITALS: BP 133/82
== END 2017-11-27 14:46 | disposition home or self-care (01) | DRG 188 ==
LOC: EDUNIT# 08:39 → ER 08:42 → 4TH 12:51
PROVIDERS: ADMIT Pediatrics; ATTEND Pediatrics
DX: J90 Pleural effusion, not elsewhere classified (principal); I48.0 Paroxysmal atrial fibrillation; F17.210 Nicotine dependence, cigarettes, uncomplicated; J45.909 Unspecified asthma, uncomplicated; J43.9 Emphysema, unspecified; E78.00 Pure hypercholesterolemia, unspecified; I10 Essential (primary) hypertension; G40.909 Epilepsy, unspecified, not intractable, without status epilepticus; I95.9 Hypotension, unspecified; G47.30 Sleep apnea, unspecified; K21.9 Gastro-esophageal reflux disease without esophagitis; M81.0 Age-related osteoporosis without current pathological fracture; F41.9 Anxiety disorder, unspecified; Z86.711 Personal history of pulmonary embolism; Z86.718 Personal history of other venous thrombosis and embolism
CPT/HCPCS: 36415; 71046; 80048; 80053; 81000; 83605; 83880; 84484; 85007; 85025; 85027; 85652; 86141; 87040; 93005; 93306; 94640; 94760; 96374; 96375

== ENCOUNTER 2018-01-19 09:16 | Emergency (ER) | payer MEDICAID ==
[~2018-01-19] VITALS: Ht 172.7 cm; Wt 78.9 kg
[~2018-01-19 09:16] MED LIST changes: +CHOL500044 PO; +LOSA25TA21 PO
--- OUTSIDE RECORDS SUMMARY | 2018-01-19 09:22 | XMS REPORT | Continuity of Care Document ---
Author Author [employer] Organization [facility] Address Unknown Phone Unavailable Care Team Providers Care Quality Process Auditor Name Role Phone [employer] Unavailable Unavailable Problems Medications Allergies, Adverse Reactions, Alerts Immunizations Results Vital Signs Encounters Location Location Details Encounter Type Encounter Number Reason For Visit Attending Provider ADM Date DC Date Status Source O "" BRETT JOHNSON [facility] Procedures Plan of Care Social History Assessment and Plan Family History Advance Directives Functional Status
--- OUTSIDE RECORDS SUMMARY | 2018-01-19 09:24 | XMS REPORT ---
Author Author BRETT JOHNSON Organization [facility] Address [address] [place] [address] Care Team Providers Care Supply Aide Name Role Phone BRETT JOHNSON Unavailable PROBLEMS Type Condition ICD9-CM Code NJU13-AT Code Onset Dates Condition Status SNOMED Code Problem Generalized anxiety disorder F41.1 Active 17461683 Problem Oral phase dysphagia R13.11 Active 614580493 Problem Chronic obstructive pulmonary disease, unspecified COPD type J44.9 Active 61647839 Problem Hypertension, benign I10 Active 15862062 Problem Vitamin B 12 deficiency E53.8 Active 96879428 Problem Agoraphobia with panic attacks F40.01 Active 346564431 Problem COPD with exacerbation J44.1 Active 399552541 Problem Chronic sinusitis, unspecified J32.9 Active 04963813 Problem Chronic fatigue R53.82 Active 46467248 Problem Other chronic pain G89.29 Active 00160607 Problem Gastroesophageal reflux disease without esophagitis K21.9 Active [id number] ALLERGIES No Information ENCOUNTERS Encounter Location Date Diagnosis [place] [id number] [place] [address] 56164- 6432 Nov, [place] [id number] [place] [address] 52614- 7881 Nov, [facility] [id number] [place] [address] 50591- 2462 Nov, [place] [id number] [place] [address] 55877- 8847 14 Nov, 2017 Pericardial effusion I31.3 ; Agoraphobia with panic attacks F40.01 and Vitamin B 12 deficiency E53.8 [place] [address] [place] [id number] [place] [address] 98557- 7291 Nov, [place] [address] [place] [address] 3121 Nov, Pneumonia of both lungs due to infectious organism, unspecified part of lung J18.9 and Flank pain R10.9 [facility] [id number] [place] [address] Nov, Pneumonia of both lungs due to infectious organism, unspecified part of lung J18.9 and Gastroenteritis K52.9 [facility] [id number] [place] [address] 16974- 7781 Oct, Pneumonia of both lungs due to infectious organism, unspecified part of lung J18.9 and Vitamin B 12 deficiency E53.8 [facility] [address] [id number] Oct, [facility] [id number] [place] [address] 55289- 8101 Oct, [facility] [id number] [place] [address] 69144- 8697 Oct, [facility] [id number] [place] [address] 26076- 3822 Oct, Flank pain R10.9 [facility] [id number] [place] [address] 90832- 9723 Oct, Other chronic pain G89.29 and Unspecified abdominal pain R10.9 [facility] [id number] [place] [address] 20321- 5248 Sep, Flank pain R10.9 [facility] [id number] [place] [address] 68067- 4274 Sep, [facility] [id number] [place] [address] 33763- 8375 Sep, [facility] [id number] [place] [address] 85679- 3707 Sep, Acute non-recurrent maxillary sinusitis J01.00 [facility] [id number] [place] [address] 16789- 8357 Sep, Acute non-recurrent maxillary sinusitis J01.00 and Vitamin B 12 deficiency E53.8 [place] [id number] [place] [address] 32565- 5854 Sep, [place] [id number] [place] [address] 81284- 6626 Sep, [place] [id number] [place] [address] 24532- 3938 Sep, [place] [id number] [place] [address] 41310- 5996 Sep, COPD with exacerbation J44.1 [place] [id number] [place] [address] 85794- 5866 Sep, Chronic obstructive pulmonary disease, unspecified COPD type J44.9 [place] [id number] [place] [address] 20697- 1661 Aug, Flank pain R10.9 [place] [id number] [place] [address] 15838- 6878 Jul, Flank pain R10.9 and Vitamin B 12 deficiency E53.8 [place] [id number] [place] [address] 21289- 2883 Jul, [place] [id number] [place] [address] 25943- 0874 Jun, Gastroenteritis K52.9 [place] [id number] [place] [address] 67609- 9954 May, Gastroenteritis K52.9 and Vitamin B 12 deficiency E53.8 [place] [id number] [place] [address] 52889- 2079 Apr, Allergic conjunctivitis of left eye H10.12 and Chronic fatigue R53.82 [place] [id number] [place] [address] 53053- 5868 Apr, Chronic sinusitis, unspecified J32.9 [facility] [id number] [place] [address] 05073- 0661 Apr, [facility] [id number] [place] [address] 65300- 8323 Feb, [facility] [id number] [place] [address] 21337- 0906 January, [facility] [id number] [place] [address] 48661- 7047 Dec, [facility] [id number] [place] [address] 74954- 6935 Oct, [facility] [id number] [place] [address] 96765- 5049 Sep, Oral phase dysphagia R13.11 and Vitamin B 12 deficiency E53.8 [facility] [id number] [place] [address] 64795- 5975 Sep, [facility] [id number] [place] [address] 00740- 7044 Jul, [facility] [id number] [place] [address] 86433- 0280 Jul, [facility] [id number] [place] [address] 43509- 9735 Jun, Bronchitis J40 ; Generalized anxiety disorder F41.1 and Chronic obstructive pulmonary disease, unspecified COPD type J44.9 [facility] [address] [place] [address] 22016- 2442 Jun, [facility] [id number] [place] [address] 96718- 0117 14 Jun, 2016 [facility] [id number] [place] [address] 89627- 7774 13 Jun, 2016 [facility] [id number] [place] [address] 31973- 9240 May, Vitamin B 12 deficiency E53.8 ; Essential (primary) hypertension I10 ; Generalized anxiety disorder F41.1 ; Pain in joint, ankle and foot 719.47 ; Arthritis M19.90 ; Chronic obstructive pulmonary disease, unspecified COPD type J44.9 and Encounter for immunization Z23 [facility] [id number] [place] [address] 05845- 7228 Apr, [facility] [address] 74359- 4015 Apr, [facility] [id number] [place] [address] 91550- 4105 Mar, [facility] [address] 49219- 7155 January, [facility] [address] 33569- 8358 Dec, [facility] [address] 31889- 4157 Oct, [facility] [id number] [place] [address] 13771- 6991 Oct, [facility] [id number] [place] [address] 24253- 6976 Oct, Hypertension, benign I10 and Vitamin B 12 deficiency E53.8 [facility] [id number] [place] [address] 01151- 2561 Oct, [facility] [id number] [place] [address] 91560- 9957 Oct, [facility] [id number] [place] [address] 49292- 2474 Oct, Irritable bowel syndrome with diarrhea K58.0 [facility] [id number] [place] [address] 70514- 5962 Oct, [facility] [address] 40779- 8518 Oct, Vitamin B 12 deficiency E53.8 ; Hypertension, benign I10 and Chronic obstructive pulmonary disease, unspecified COPD type J44.9 [place] [address] [id number] [place] [address] 94429- 8546 Sep, Irritable bowel syndrome with diarrhea K58.0 ; Hypertension , benign I10 ; Chronic obstructive pulmonary disease, unspecified COPD type J44.9 ; Edema, unspecified type R60.9 ; Vision changes H53.9 and Vitamin B 12 deficiency E53.8 [place] [address] [place] [id number] [place] [address] 64791- 6245 Sep, [place] [id number] [place] [address] 06162- 4909 Jul, Degenerative disc disease 722.6 [place] [id number] [place] [address] 09763- 7703 Jun, Pain in right leg M79.604 ; Encounter for immunization Z23 and Pain of left leg M79.605 [place] [id number] [place] [address] 57154- 6758 Jun, [place] [id number] [place] [address] 61596- 5959 Jun, [place] [id number] [place] [address] 32254- 1127 Jun, Degenerative disc disease 722.6 [place] [id number] [place] [address] 18506- 5558 Jun, [place] [id number] [place] [address] 42682- 8466 May, Seizures 780.39 and Autonomic peripheral neuropathy 337.9 [place] [address] [place] [id number] [place] [address] 46329- 4746 18 May, 2015 [place] [id number] [place] [address] 48307- 1216 May, [facility] [address] [address]- 7910 May, Degenerative disc disease 722.6 [facility] [id number] [place] [address] 15392- 2200 May, [facility] [id number] [place] [address] 61866- 4304 Mar, [facility] [id number] [place] [address] 40058- 9276 Mar, Degenerative disc disease 722.6 ; Spinal stenosis 724.00 and HTN (hypertension) 401.9 [facility] [id number] [place] [address] 83950- 2996 Feb, Cutaneous horn 702.8 [facility] [id number] [place] [address] 02478- 4982 Feb, Fatigue 780.79 [facility] [id number] [place] [address] 92160- 6942 Feb, Fatigue 780.79 ; Arthritis 716.90 ; Spinal stenosis 724.00 ; Sinusitis 473.9 and Cutaneous horn 702.8 [facility] [address] [place] [address] 72512- 9169 January, [facility] [address] [address]- 9526 Dec, [facility] [address] [place] [address] 70158- 7589 Dec, [facility] [id number] [place] [address] 78211- 7424 Nov, [facility] [id number] [place] [address] 07602- 7092 Nov, [facility] [address] [place] [address] 048693- 1947 Oct, [facility] [id number] [place] [address], [place] [address]- 4941 Oct, [facility] [place] [facility] [address] [id number] [place] [address]- 9739 Oct, [facility] [place] [facility] [address] [id number] [place] [address]- 7431 Oct, [facility] [place] [facility] [address] [id number] [place] [address]- 2326 Oct, [facility] [place] [facility] [address] [id number] [place] [address]- 6525 Oct, [facility] [place] [facility] [address] [id number] [place] [address]- 5652 Sep, [facility] [place] [facility] [address] [id number] [place] [address]- 3703 Sep, [facility] [place] [facility] [address] [id number] [place] [address]- 0443 Sep, [facility] [place] [facility] [address] [id number] [place] [address]- 6514 Sep, [facility] [place] [facility] [address] [id number] [place] [address]- 6351 Sep, [facility] [place] [facility] [address] [id number] [place] [address]- 6754 Sep, [facility] [place] [facility] [address] [id number] [place] [address]- 1165 Sep, [facility] [place] [facility] [address] [id number] [place] [address]- 2004 Sep, [facility] [place] [facility] [address] [id number] [place] [address]- 0123 Sep, [facility] [place] [facility] [address] [id number] [place] [address]- 0812 Sep, [facility] [place] [facility] [address] [id number] [place] [address]- 9181 Sep, [facility] [place] [facility] [address] [id number] [place] [address]- 7285 Sep, [facility] [place] [facility] [address] [id number] [place] [address]- 9912 Sep, [facility] [place] [facility] [address] [id number] [place] [address]- 4312 Sep, [facility] [place] [facility] [address] [id number] [place] [address]- 5385 Aug, [facility] [place] [facility] [address] [id number] [place] [address]- 0430 Aug, [facility] [place] [facility] [address] [id number] [place] [address]- 4694 Aug, [facility] [place] [facility] [address] [id number] [place] [address]- 4008 Aug, [facility] [place] [facility] [address] [id number] [place] [address]- 6283 Jul, [facility] [place] [facility] [address] [id number] [place] [address]- 8811 Jul, [facility] [place] [facility] [address] [id number] [place] [address]- 7970 May, [facility] [place] [facility] [address] [id number] [place] [address]- 5170 May, [facility] [place] [facility] [address] [id number] [address]- 5684 23 May, 2014 [facility] [place] [facility] [address] [id number] [place] [address]- 1075 23 May, 2014 [facility] [place] [facility] [address] [id number] [place] [address]- 1232 08 May, 2014 [facility] [place] [facility] [address] [id number] [place] [address]- 1885 08 May, 2014 [facility] [place] [facility] [address] [id number] [place] [address]- 6742 Apr, [facility] [place] [facility] [address] [id number] [place] [address]- 9344 Apr, [facility] [place] [facility] [address] [id number] [place] [address]- 8049 Mar, [facility] [place] [facility] [address] [id number] [place] [address]- 1558 Mar, [facility] [place] [facility] [address] [id number] [place] [address]- 8347 Mar, [facility] [place] [facility] [address] [id number] [place] [address]- 1954 Mar, [facility] [place] [facility] [address] [id number] [place] [address]- 0588 Mar, [facility] [place] [facility] [address] [id number] [place] [address]- 1472 Mar, [facility] [place] [facility] [address] [id number] [place] [address]- 7589 Mar, [facility] [place] [facility] [address] [id number] [place] [address]- 3222 Mar, [facility] [place] [facility] [address] [id number] [place] [address]- 9961 Feb, [facility] [place] [facility] [address] [id number] [place] [address]- 9481 Feb, [facility] [place] [facility] [address] [id number] [place] [address]- 4703 January, [facility] [place] [facility] [address] [id number] [place] [address]- 5616 January, [facility] [place] [facility] [address] [id number] [place] [address]- 4231 January, [facility] [place] [facility] [address] [id number] [place] [address]- 8694 January, [facility] [place] [facility] [address] [id number] [place] [address]- 9865 Dec, [facility] [place] [facility] [address] [id number] [place] 6731 Dec, [facility] [place] [facility] [address] [id number] [place] [address]- 3566 Oct, [facility] [place] [facility] [address] [id number] [place] [address]- 5505 Oct, [facility] [place] [facility] [address] [id number] [place] [address]- 1579 Oct, [facility] [place] [facility] [address] [id number] [place] [address]- 1790 Oct, [facility] [place] [facility] [address] [id number] [place] [address]- 0987 Sep, [facility] [place] [facility] [address] [id number] [place] [address]- 8142 Sep, [facility] [place] [facility] [address] [id number] [place] [address]- 3661 Aug, [facility] [place] [facility] [address] [id number] [place] [address]- 1310 Aug, [facility] [place] [facility] [address] [id number] [place] [address]- 6351 Aug, [facility] [place] [facility] [address] [id number] [place] [address]- 2349 Aug, [facility] [place] [facility] [address] [id number] [place] [address]- 2557 Aug, [facility] [place] [facility] [address] [id number] [place] [address]- 2549 Aug, [facility] [place] [facility] [address] [id number] [place] [address]- 7997 Aug, [facility] [place] [facility] [address] [id number] [address]- 8426 Aug, [facility] [place] [facility] [address] [id number] [place] [address]- 6008 Aug, [facility] [place] [facility] [address] [id number] [place] [address]- 1543 Aug, [facility] [place] [facility] [address] [id number] [place] [address]- 1729 Jul, [facility] [place] [facility] [address] [id number] [place] [address]- 7462 Jul, [facility] [place] [facility] [address] [id number] [place] 9452 Jun, [facility] [place] [facility] [address] [id number] [place] 8879 Jun, [facility] [place] [facility] [address] [id number] [place] [address]- 9434 Jun, [facility] [place] [facility] [address] [id number] [place] [address]- 1342 Jun, [facility] [place] [facility] [address] [id number] [place] [address]- 5628 Jun, [facility] [place] [facility] [address] [id number] [place] [address]- 1534 May, [facility] [place] [facility] [address] [id number] [place] [address]- 3119 13 May, 2013 [facility] [place] [facility] [address] [id number] [address]- 1978 12 May, 2013 [facility] [place] [facility] [address] [id number] [place] 1167 06 May, 2013 [facility] [place] [facility] [address] [id number] [place] 3380 03 May, 2013 [facility] [place] [facility] [address] [id number] [place] [address]- 4119 Apr, [facility] [place] [facility] [address] [id number] [place] [address]- 4950 Mar, [facility] [address] [id number] [place] [address]- 1446 Mar, [facility] [address] [id number] [place] [address]- 6686 Mar, [facility] [address] [id number] [place] [address]- 8995 Mar, [facility] [address] [id number] [place] [address]- 3195 Mar, [facility] [address] [id number] [place] [address]- 4101 Mar, [facility] [address] [id number] [place] [address]- 7614 Mar, [facility] [address] [id number] [place] [address] Mar, [facility] [address] [id number] [place] [address] Mar, [facility] [address] [id number] [place] [address] Feb, [facility] [address] [id number] [place] [address] Feb, [facility] [address] [id number] [place] [address] Feb, [facility] [address] [id number] [place] [address] January, [facility] [address] [id number] [place] [address] January, [facility] [address] [id number] [place] [address] January, [facility] [address] [id number] [place] [address] January, [facility] [address] [id number] [place] [address] Dec, [facility] [place] [facility] [address] [id number] [place] [address] Dec, [facility] [place] [facility] [address] [id number] [place] [address] Dec, [facility] [place] [facility] [address] [id number] [place] [address] Dec, [facility] [address] [id number] [place] [address]- [address] Dec, [facility] [place] [facility] [address] [id number] [place] [address] Dec, [facility] [address] [id number] [place] [address] Nov, [facility] [address] [id number] [place] [address] Oct, [facility] [place] [facility] [address] [id number] [place] [address] Aug, [facility] [address] [id number] [place] [address] Aug, [facility] [place] [facility] [address] [id number] [place] [address] Aug, [facility] [place] [facility] [address] [id number] [address] Aug, [facility] [place] [facility] [address] [id number] [place] [address]70 Aug, [facility] [place] [facility] [address] [id number] [place] [address] Aug, [facility] [place] [facility] [address] [id number] [place] [address] Aug, [facility] [place] [facility] [address] [id number] [place] [address] Aug, [facility] [place] [facility] [address] [id number] [place] [address] Aug, [facility] [place] [facility] [address] [facility] [id number] [place] [address] Aug, [facility] [place] [facility] [id number] [address] Aug, [facility] [place] [facility] [address] [id number] [place] [address] Jul, [facility] [place] [facility] [address] [facility] [id number] [place] [address], [place] [address]- [address] Jul, [facility] [place] [facility] [address] [facility] [id number] [place] [address] Jul, [facility] [place] [facility] [id number] [place] [address], [place] [address]- [address] Jul, [facility] [place] [facility] [address] [facility] [id number] [place] [address] Jul, [facility] [place] [facility] [id number] [place] [address] Jul, [facility] [place] [facility] [address] [id number] [place] [address] Jun, [facility] [place] [facility] [address] [facility] [id number] [place] [address]- [address] Jun, [facility] [place] [facility] [address] [facility] [id number] [address] May, [facility] [place] [facility] [address] [id number] [place] [address]- [address] Apr, [facility] [place] [facility] [address] [facility] [id number] [place] [address]- [address] Apr, [facility] [place] [facility] [address] [id number] [place] [address] Apr, [facility] [place] [facility] [address] [id number] [place] [address] Apr, [facility] [place] [facility] [address] [id number] [place] [address]- [address] Apr, [facility] [place] [facility] [address] [id number] [place] [address]- [address] Mar, [facility] [place] [facility] [address] [address] [id number] [place] [address] Mar, [facility] [place] [facility] [address] [id number] [place] [address] January, [facility] [place] [facility] [address] [id number] [place] [address] January, [facility] [place] [facility] [address] [id number] [place] [address] Nov, [facility] [place] [facility] [address] [id number] [place] [address] Oct, [facility] [place] [facility] [address] [id number] [place] [address] Sep, [facility] [place] [facility] [address] [id number] [place] [address] Sep, [facility] [place] [facility] [address] [id number] [place] [address] Sep, [facility] [place] [facility] [address] [id number] [place] [address] Sep, [facility] [place] [facility] [address] [id number] [place] [address] Sep, [facility] [place] [facility] [address] [id number] [place] [address] Sep, [facility] [place] [facility] [address] [id number] [place] [address] 14 Aug, 2011 [facility] [place] [facility] [address] [id number] [place] [address] 14 Aug, 2011 [facility] [place] [facility] [address] [id number] [place] [address] Aug, [facility] [place] [facility] [address] [id number] [place] [address] Aug, [facility] [place] [facility] [address] [id number] [place] [address] Aug, [facility] [place] [facility] [address] [id number] [place] [address] Jul, [facility] [place] [facility] [address] [id number] [place] [address] Jul, [facility] [place] [facility] [address] [id number] [place] [address] Jul, [facility] [place] [facility] [address] [id number] [place] [address] Jun, [facility] [place] [facility] [address] [id number] [place] [address] Jun, [facility] [place] [facility] [address] [id number] [place] [address] Jun, [facility] [place] [facility] [address] [id number] [place] [address] January, [facility] [place] [facility] [address] [id number] [address] Dec, [facility] [place] [facility] [address] [id number] [place] [address] Oct, [facility] [place] [facility] [address] [id number] [place] [address] Oct, [facility] [place] [facility] [address] [id number] [place] [address] Jun, [facility] [place] [facility] [address] [id number] [place] [address] Aug, [facility] [place] [facility] [address] [facility] [id number] [place] [address] 14 Aug, 2009 [facility] [address] [facility] [id number] [place] Jul, [facility] [address] [facility] [id number] [place] [address] Mar, IMMUNIZATIONS No Known Immunizations SOCIAL HISTORY Never Assessed REASON FOR VISIT Controlled Med Refill PLAN OF CARE VITAL SIGNS MEDICATIONS Medication Instructions Dosage Frequency Start Date End Date Duration Status Xanax 0.5 MG Orally 4 times a day take 1 tablet 6h Nov, 28 days Active RESULTS No Results PROCEDURES No Known procedures INSTRUCTIONS MEDICATIONS ADMINISTERED No Known Medications MEDICAL (GENERAL) HISTORY Type Description Date Medical History Hypertension Medical History Chronic Obstructive pulmonary disease diagnosed 2008 in [place]-PFT not done previously Medical History Gastrointestinal disorder IBS diverticulosis Medical History Metabloic disorders-Vitamin B12 and Vitamin D deficiencies Medical History Bilateral knee problems Medical History Backache Medical History History of blood clots during treated with heparin Medical History bilatera edema to the legs Medical History pericardial effusion Medical History pneumonia Medical History Bronchitis Surgical History Cholecystectomy 1975 Surgical History Hital hernia and umbilical hernia reparied x2 previously Surgical History Dental surgery Surgical History appendectomy Surgical History Hysterectomy [facility] w RSO for fibroids and precancerous cell for the cervix 1997 Surgical History section 1996, 1991 Surgical History EGD, Scope, Colonoscopy Surgical History pericardial effusion 09/02/17 Hospitalization History surgeries Hospitalization History edema 06/2015 Hospitalization History Pneumonia 08/2017 Hospitalization History Pneumonia 09/2017 Hospitalization History severe sepsis, pleural effusion-[facility] 11/06/17
--- OUTSIDE RECORDS SUMMARY | 2018-01-19 09:25 | XMS REPORT ---
Author Author BRETT JOHNSON Organization [facility] Address [address] [place] [address] Care Team Providers Care Supervisor Park Workers Name Role Phone BRETT JOHNSON Unavailable PROBLEMS Type Condition ICD9-CM Code BLO62-VW Code Onset Dates Condition Status SNOMED Code Problem Generalized anxiety disorder F41.1 Active 94547497 Problem Oral phase dysphagia R13.11 Active 950452511 Problem Chronic obstructive pulmonary disease, unspecified COPD type J44.9 Active 30621316 Problem Hypertension, benign I10 Active 68764239 Problem Vitamin B 12 deficiency E53.8 Active 12674615 Problem Agoraphobia with panic attacks F40.01 Active 233551617 Problem COPD with exacerbation J44.1 Active 386995415 Problem Chronic sinusitis, unspecified J32.9 Active 80202842 Problem Chronic fatigue R53.82 Active 33700749 Problem Other chronic pain G89.29 Active 93542557 Problem Gastroesophageal reflux disease without esophagitis K21.9 Active 637306445 ALLERGIES Substance Reaction Event Type Date Status MethylPREDNISolone goes crazy Drug Allergy Apr, Active Ketorolac Tromethamine tingling in lips Drug Allergy Apr, Active Augmentin 875-125 Mg Tablet Pt states this medication is to harsh on her stomach. Non Drug Allergy Apr, Active ENCOUNTERS Encounter Location Date Diagnosis [facility] [address] [facility] [id number], [place] [address] January, [facility] [address] [id number] [address] Dec [facility] [address] [facility] [id number], [place] [address] Dec, [facility] [address] [facility] [id number], [place] [address] Dec, [facility] [id number], [place] [address] Dec, [facility] [id number] [place] [address] 48498- 4073 Dec, [facility] [id number] [place] [address] 89093- 1291 Dec, Flank pain R10.9 [facility] [id number] [place] [address] 50859- 7314 Dec, [facility] [id number] [place] [address] 56612- 4404 Nov, [place] [address] [address]497- 9079 Nov, [place] [id number] [place] [address] 39056- 6741 Nov, [facility] [id number] [place] [address] 34254- 3876 Nov, Pericardial effusion I31.3 ; Agoraphobia with panic attacks F40.01 and Vitamin B 12 deficiency E53.8 [facility] [id number] [place] [address] 02974- 7505 Nov, [facility] [id number] [place] [address] 33071- 4094 Nov, Pneumonia of both lungs due to infectious organism, unspecified part of lung J18.9 and Flank pain R10.9 [facility] [id number] [place] [address] 09413- 3116 Nov, Pneumonia of both lungs due to infectious organism, unspecified part of lung J18.9 and Gastroenteritis K52.9 [place] [id number] [place] [address] 62317- 0575 Oct, Pneumonia of both lungs due to infectious organism, unspecified part of lung J18.9 and Vitamin B 12 deficiency E53.8 [facility] [id number] [place] [address] [id number] Oct, [facility] [id number] [place] [address] 12204- 5289 Oct, [facility] [id number] [place] [address] 994196- 1361 Oct, [facility] [id number] [place] [address] 83377- 6177 Oct, Flank pain R10.9 [facility] [id number] [place] [address] 00575- 2013 Oct, Other chronic pain G89.29 and Unspecified abdominal pain R10.9 [facility] [id number] [place] [address] 78265- 6541 Sep, Flank pain R10.9 [facility] [id number] [place] [address] 95274- 1375 Sep, [facility] [id number] [place] [address] 26204- 9672 Sep, [facility] [id number] [place] [address] 59772- 8495 Sep, Acute non-recurrent maxillary sinusitis J01.00 [facility] [id number] [place] [address] 24410- 9186 Sep, Acute non-recurrent maxillary sinusitis J01.00 and Vitamin B 12 deficiency E53.8 [facility] [id number] [place] [address] 52287- 7458 Sep, [facility] [id number] [place] [address] 95176- 6696 Sep, [facility] [id number] [place] [address] 88230- 9233 Sep, [facility] [id number] [place] [address] 61219- 5475 Sep, COPD with exacerbation J44.1 [place] [id number] [place] [address] 54253- 3458 Sep, Chronic obstructive pulmonary disease, unspecified COPD type J44.9 [place] [address] 81481- 2515 Aug, Flank pain R10.9 [place] [address] 06603- 7769 Jul, Flank pain R10.9 and Vitamin B 12 deficiency E53.8 [place] [address] 25889- 3626 Jul, [place] [address] 10011- 7358 Jun, Gastroenteritis K52.9 [place] [address] 18650- 3301 May, Gastroenteritis K52.9 and Vitamin B 12 deficiency E53.8 [place] [id number] [place] [address] 76186- 7666 Apr, Allergic conjunctivitis of left eye H10.12 and Chronic fatigue R53.82 [place] [id number] [place] [address] 08822- 1636 Apr, Chronic sinusitis, unspecified J32.9 [place] [id number] [place] [address] 45299- 7898 Apr, [place] [id number] [place] [address] 79553- 6724 Feb, [place] [id number] [place] [address] 71886- 8394 January, [place] [id number] [place] [address] 97524- 4768 Dec, [place] [id number] [place] [address] 39802- 0028 Oct, [place] [id number] [place] [address] 88760- 5410 Sep, Oral phase dysphagia R13.11 and Vitamin B 12 deficiency E53.8 [place] [id number] [place] [address] 81156- 5463 Sep, [place] [id number] [place] [address] 42361- 0320 Jul, [place] [address] 77606- 5277 Jul, [place] [id number] [place] [address] 73821- 7600 Jun, Bronchitis J40 ; Generalized anxiety disorder F41.1 and Chronic obstructive pulmonary disease, unspecified COPD type J44.9 [place] [address] 29108- 0817 Jun, [place] [address] 06632- 9766 Jun, [place] [id number] [place] [address] 60161- 4087 Jun, [place] [id number] [place] [address] 04897- 7611 May, Vitamin B 12 deficiency E53.8 ; Essential (primary) hypertension I10 ; Generalized anxiety disorder F41.1 ; Pain in joint, ankle and foot 719.47 ; Arthritis M19.90 ; Chronic obstructive pulmonary disease, unspecified COPD type J44.9 and Encounter for immunization Z23 [place] [id number] [place] [address] 18887- 3796 Apr, [place] [address] 16254- 1516 Apr, [place] [id number] [place] [address] 24696- 0777 Mar, [place] [address] 04188- 6988 January, [facility] [address], [place] [address]- 2558 Dec, [facility] [id number] [place] [address] 27968- 2977 Oct, [facility] [id number] [place] [address] 83031- 0723 Oct, [facility] [id number] [place] [address] 00495- 1690 Oct, Hypertension, benign I10 and Vitamin B 12 deficiency E53.8 [facility] [id number] [place] [address] 09596- 6743 Oct, [facility] [id number] [place] [address] 46827- 1795 Oct, [facility] [id number] [place] [address] 90400- 2271 Oct, Irritable bowel syndrome with diarrhea K58.0 [facility] [id number] [place] [address] 23386- 6129 Oct, [facility] [id number] [place] [address] 59295- 2557 Oct, Vitamin B 12 deficiency E53.8 ; Hypertension, benign I10 and Chronic obstructive pulmonary disease, unspecified COPD type J44.9 [facility] [id number] [place] [address] 64839- 6422 Sep, Irritable bowel syndrome with diarrhea K58.0 ; Hypertension , benign I10 ; Chronic obstructive pulmonary disease, unspecified COPD type J44.9 ; Edema, unspecified type R60.9 ; Vision changes H53.9 and Vitamin B 12 deficiency E53.8 [facility] [address], [place] [address]- 3731 Sep, [facility] [id number] [place] [address] 04179- 2759 Jul, Degenerative disc disease 722.6 [facility] [id number] [place] [address] 41949- 4964 Jun, Encounter for immunization Z23 ; Pain in right leg M79.604 and Pain of left leg M79.605 [facility] [id number] [place] [address] 99399- 2906 Jun, [facility] [address] 79393- 4654 Jun, [facility] [id number] [place] [address] 12565- 9531 Jun, Degenerative disc disease 722.6 [facility] [id number] [place] [address] 62097- 5569 Jun, [facility] [id number] [place] [address] 98399- 5440 May, Seizures 780.39 and Autonomic peripheral neuropathy 337.9 [facility] [id number] [place] [address] 21093- 1790 May, [facility] [id number] [place] [address] 79819- 5113 May, [facility] [id number] [place] [address] 88381- 4013 May, Degenerative disc disease 722.6 [facility] [id number] [place] [address] 33287- 3166 May, [facility] [id number] [place] [address] 82538- 9838 Mar, [facility] [id number] [place] [address] 25420- 4057 Mar, Degenerative disc disease 722.6 ; Spinal stenosis 724.00 and HTN (hypertension) 401.9 [facility] [id number] [place] [address] 93592- 0508 Feb, Cutaneous horn 702.8 [facility] [id number] [place] [address] 40403- 1176 Feb, Fatigue 780.79 [facility] [id number] [place] [address] 68737- 1975 08 Feb, 2015 Fatigue 780.79 ; Arthritis 716.90 ; Spinal stenosis 724.00 ; Sinusitis 473.9 and Cutaneous horn 702.8 [facility] [address] [id number] [address]- 7414 January, [facility] [id number] [place] [address] 97853- 1571 Dec, [facility] [id number] [place] [address] 60654- 6794 Dec, [facility] [id number] [place] [address] 97156- 7032 Nov, [facility] [id number] [place] [address] 47910- 1713 Nov, [facility] [id number] [place] [address] 436174- 6286 Oct, [facility] [address], [place] [address]- 9334 Oct, [facility] [id number] [place] [address] 56085- 1017 Oct, [facility] [id number] [place] [address] 915650- 2757 Oct, [facility] [id number] [place] [address] 59469- 3195 Oct, [facility] [id number] [address]- 3096 Oct, [facility] [id number] [place] [address] 16127- 1009 Sep, [facility] [place] [facility] [address] [id number] [place] [address]- 0985 Sep, [facility] [place] [facility] [address] [id number] [place] [address]- 0053 Sep, [facility] [place] [facility] [address] [id number] [place] [address]- 9049 Sep, [facility] [place] [facility] [address] [id number] [place] [address]- 2901 Sep, [facility] [place] [facility] [address] [id number] [place] [address]- 0491 Sep, [facility] [place] [facility] [address] [id number] [place] [address]- 8168 Sep, [facility] [place] [facility] [address] [id number] [place] [address]- 1564 Sep, [facility] [place] [facility] [address] [id number] [place] [address]- 9986 Sep, [facility] [place] [facility] [address] [id number] [place] [address]- 4295 Sep, [facility] [place] [facility] [address] [id number] [place] [address]- 7960 Sep, [facility] [place] [facility] [address] [id number] [place] [address]- 6876 Sep, [facility] [place] [facility] [address] [id number], [place] [address]- 7520 Sep, [facility] [place] [facility] [address] [id number] [place] [address]- 9307 Sep, [facility] [place] [facility] [address] [id number] [place] [address]- 5616 Aug, [facility] [place] [facility] [address] [id number], [place] [address]- 1519 Aug, [facility] [place] [facility] [address] [id number], [place] [address]- 8132 Aug, [facility] [place] [facility] [address] [id number] [place] [address]- 5354 Aug, [facility] [place] [facility] [address] [id number] [place] [address]- 9115 Jul, [facility] [place] [facility] [address] [id number] [place] [address]- 2307 Jul, [facility] [place] [facility] [address] [id number] [place] [address]- 6273 May, [facility] [place] [facility] [address] [id number] [place] [address]- 6155 May, [facility] [place] [facility] [address] [id number] [place] [address]- 0186 May, [facility] [place] [facility] [address] [id number] [place] [address]- 8783 May, [facility] [place] [facility] [address] [id number] [place] [address]- 8844 May, [facility] [place] [facility] [address] [id number] [place] [address]- 3760 May, [facility] [place] [facility] [address] [id number] [place] [address]- 5097 Apr, [facility] [place] [facility] [address] [id number] [place] [address]- 8876 Apr, [facility] [place] [facility] [address] [id number] [place] [address]- 8959 Mar, [facility] [place] [facility] [address] [id number] [place] [address]- 5460 Mar, [facility] [place] [facility] [address] [id number] [place] [address]- 4939 Mar, [facility] [place] [facility] [address] [id number] [place] [address]- 4905 Mar, [facility] [place] [facility] [address] [id number] [place] [address]- 1981 Mar, [facility] [place] [facility] [address] [id number] [place] [address]- 6319 Mar, [facility] [place] [facility] [address] [id number] [place] [address]- 8500 Mar, [facility] [place] [facility] [address] [id number] [place] [address]- 6455 Mar, [facility] [place] [facility] [address] [id number] [place] [address]- 5625 Feb, [facility] [place] [facility] [address] [id number] [place] [address]- 0291 Feb, [facility] [place] [facility] [address] [id number] [place] [address]- 0195 January, [facility] [place] [facility] [address] [id number] [place] [address]- 8273 January, [facility] [place] [facility] [address] [id number] [place] [address]- 9161 January, [facility] [place] [facility] [address] [id number] [place] [address]- 5053 January, [facility] [place] [facility] [address] [id number] [place] [address]- 2683 Dec, [facility] [place] [facility] [address] [id number] [place] [address]- 7321 Dec, [facility] [place] [facility] [address] [id number] [place] [address]- 6904 Oct, [facility] [place] [facility] [address] [id number] [place] [address]- 0666 Oct, [facility] [place] [facility] [address] [id number] [place] [address]- 7042 Oct, [facility] [place] [facility] [address] [id number] [place] [address]- 5797 Oct, [facility] [address] [id number] [place] [address]- 2880 Sep, [facility] [place] [facility] [address] [id number] [place] [address]- 9760 Sep, [facility] [address] [facility] [id number] [place] [address]- 5772 Aug, [facility] [place] [facility] [address] [id number] [place] [address]- 8835 Aug, [facility] [address] [id number] [place] [address]- 7148 Aug, [facility] [place] [facility] [address] [id number] [place] [address]- 1443 Aug, [facility] [place] [facility] [address] [id number] [place] [address]- 6964 Aug, [facility] [place] [facility] [address] [id number] [place] [address]- 9099 Aug, [facility] [place] [facility] [address] [id number] [place] [address]- 5792 Aug, [facility] [place] [facility] [address] [id number] [place] [address]- 4417 Aug, [facility] [place] [facility] [address] [id number], [place] [address]- 1170 Aug, [facility] [place] [facility] [address] [id number], [place] [address]- 9942 Aug, [facility] [place] [facility] [address] [id number] [place] [address]- 8615 Jul, [facility] [place] [facility] [address] [id number] [place] [address]- 6673 Jul, [facility] [place] [facility] [address] [id number] [place] [address]- 7846 Jun, [facility] [place] [facility] [address] [id number] [place] [address]- 7269 29 Jun, 2013 [facility] [address] [id number] [place] [address]- 1278 Jun, [facility] [place] [facility] [address] [id number] [place] [address]- 0116 16 Jun, 2013 [facility] [address] [id number] [place] [address]- 7217 Jun, [facility] [address] [id number] [place] [address]- 6238 May, [facility] [address] [id number] [place] [address]- 4439 May, [facility] [address] [id number] [place] [address]- 2549 12 May, 2013 [facility] [address] [id number] [place] [address]- 4961 06 May, 2013 [facility] [address] [id number] [place] [address]- 6140 May, [facility] [address] [id number] [place] [address]- 7920 Apr, [facility] [address] [id number] [place] [address]- 4875 Mar, [facility] [place] [facility] [address] [id number] [place] [address]- 2541 Mar, [facility] [address] [id number] [place] [address]- 2545 Mar, [facility] [place] [facility] [address] [id number] [place] [address] Mar, [facility] [place] [facility] [address] [id number] [place] [address] Mar, [facility] [place] [facility] [address] [id number] [place] [address] Mar, [facility] [address] [id number] [place] [address] Mar, [facility] [place] [facility] [address] [id number] [place] [address] Mar, [facility] [place] [facility] [address] [id number] [place] [address] Mar, [facility] [place] [facility] [address] [id number] [place] [address] Feb, [facility] [address] [id number] [place] [address] Feb, [facility] [place] [facility] [address] [id number] [place] [address] Feb, [facility] [address] [id number] [place] [address] January, [facility] [address] [id number] [place] [address] January, [facility] [place] [facility] [address] [id number] [place] [address] January, [facility] [place] [facility] [address] [id number] [place] [address] January, [facility] [place] [facility] [address] [id number] [place] [address] Dec, [facility] [place] [facility] [address] [id number], [place] [address] 17 Dec, 2012 [facility] [place] [facility] [address] [id number] [place] [address] 12 Dec, 2012 [facility] [place] [facility] [address] [id number] [place] [address] 10 Dec, 2012 [facility] [place] [facility] [address] [id number] [place] [address]- [address] 08 Dec, 2012 [facility] [place] [facility] [address] [id number], [place] [address] 08 Dec, 2012 [facility] [address] [id number] [place] [address] Nov, [facility] [place] [facility] [address] [id number] [place] [address] Oct, [facility] [address] [id number] [place] [address] Aug, [facility] [place] [facility] [address] [id number] [place] [address] Aug, [facility] [address] [id number] [place] [address] Aug, [facility] [address] [id number] [place] [address] Aug, [facility] [address] [facility] [id number] [place] [address] Aug, [facility] [place] [facility] [address] [id number] [place] [address] Aug, [facility] [address] [id number] [place] [address] Aug, [facility] [place] [facility] [address] [facility] [id number] [place] [address] Aug, [facility] [place] [facility] [address] [id number] [place] [address] Aug, [facility] [place] [facility] [address] [id number] [place] [address] Aug, [facility] [place] [facility] [address] [id number] [place] [address] Aug, [facility] [place] [facility] [address] [id number] [place] [address] Jul, [facility] [place] [facility] [address] [facility] [id number] [place] [address] Jul, [facility] [place] [facility] [address] [id number] [place] [address] Jul, [facility] [place] [facility] [address] [id number] [place] [address] Jul, [facility] [place] [facility] [address] [id number] [place] [address] Jul, [facility] [place] [facility] [address] [id number] [place] [address] Jul, [facility] [place] [facility] [address] [id number] [place] [address] Jun, [facility] [place] [facility] [address] [id number] [place] [address] Jun, [facility] [place] [facility] [address] [id number] [place] [address] May, [facility] [place] [facility] [address] [id number] [place] [address] Apr, [facility] [place] [facility] [address] [id number] [place] [address] Apr, [facility] [place] [facility] [address] [id number] [place] [address] Apr, [facility] [place] [facility] [address] [id number] [place] [address] Apr, [facility] [place] [facility] [address] [id number] [place] [address] Apr, [facility] [place] [facility] [address] [id number] [place] [address] Mar, [facility] [place] [facility] [address] [id number] [place] [address] Mar, [facility] [place] [facility] [address] [id number] [place] [address] January, [facility] [place] [facility] [address] [id number] [place] [address] January, [facility] [address] [id number] [place] [address] Nov, [facility] [place] [facility] [address] [id number] [place] [address] Oct, [facility] [place] [facility] [address] [id number] [place] [address] Sep, [facility] [place] [facility] [address] [id number] [place] [address] Sep, [facility] [address] [id number] [place] [address] Sep, [facility] [place] [facility] [address] [id number] [place] [address] Sep, [facility] [place] [facility] [address] [id number] [place] [address] Sep, [facility] [place] [facility] [address] [id number] [place] [address] Sep, [facility] [place] [facility] [address] [id number] [place] [address] Aug, [facility] [place] [facility] [address] [id number] [place] [address] Aug, [facility] [place] [facility] [address] [id number] [address] Aug, [facility] [place] [facility] [address] [id number], [place] [address] Aug, [facility] [place] [facility] [address] [id number] [place] [address] Aug, [facility] [place] [facility] [address] [id number] [place] [address] Jul, [facility] [place] [facility] [address] [id number] [place] [address] Jul, [facility] [place] [facility] [id number] [address] Jul, [facility] [id number] [address] Jun, [facility] [id number] [address] Jun, [facility] [id number] [address] Jun, [facility] [id number] [address] January, [facility] [id number] [place] [address] Dec, [facility] [id number], [place] [address] Oct, [facility] [address] [id number] [address] Oct, [facility] [id number], [place] [address] Jun, [facility] [id number], [place] [address] Aug, [facility] [id number], [place] [address] Aug, [facility] [id number], [place] [address] Jul, [facility] [address] [id number], [place] [address] Mar, IMMUNIZATIONS Vaccine Route Administration Date Status B12, VITAMIN (UP TO 1000 MCG) IM Intramuscular May 10, 2017 Administered SOCIAL HISTORY Never Assessed REASON FOR VISIT Pain management (chronic) -- thelma olmedo, having pain on left eye since yesterday , feeling tired and sleepy PLAN OF CARE VITAL SIGNS Height 67 in 2017-05-10 Weight 192.0 lbs 2017-05-10 Temperature 97.2 degrees Fahrenheit 2017-05-10 Heart Rate 70 bpm 2017-05-10 Respiratory Rate 20 2017-05-10 BMI 30.07 kg/m2 2017-05-10 Blood pressure systolic 146 mmHg 2017-05-10 Blood pressure diastolic 90 mmHg 2017-05-10 MEDICATIONS Medication Instructions Dosage Frequency Start Date End Date Duration Status Aspirin 325 MG Orally Once a day 1 tablet 24h Active Advair Diskus 500-50 MCG/DOSE Inhalation Twice a day 1 puffs by Inhalation route 2 times per day 12h 30 Active Tramadol HCl 50 MG Orally every 6 hrs 1 tablet as needed 6h Mar, Active Wheelchair - as directed May, Active Vitamin D 1000 UNIT TAKE TWO TABLETS BY MOUTH ONCE DAILY 30 Active Viberzi 100 mg Orally Twice a day 1 tablet with food 12h Apr, Active Fluticasone Propionate 50 MCG/ACT Nasally 2 times a day 1 spray in each nostril 12h 30 days Active Ranitidine HCl 150 MG take 1 tablet (150 mg) by oral route 2 times per day 30 Active Cetirizine HCl 10 MG TAKE ONE TABLET BY MOUTH ONCE DAILY 30 Active Dicyclomine HCl 20 MG Orally Four times a day PRN 1 tablet 30 Active Omeprazole 20 MG 2 tablets 24h 30 Active Cromolyn Sodium 4 % Ophthalmic Four times a day 1 drop into affected eye 6h Apr, Active Atenolol 100 MG 0.5 tablet by Oral route 2 times per day 30 Active Cyclobenzaprine HCl 10 MG TAKE ONE TABLET BY MOUTH TWICE DAILY NEEDED 30 Active Albuterol Sulfate (2.5 MG/3ML) 0.083% Inhalation every 4 hrs 3 ml 4h Oct Active Xanax 0.5 MG Orally 4 times a day take 1 tablet 6h Nov, 28 days Active Vitamin D3 1,000 unit 2 capsule by Oral route 1 time per day January, Active ProAir HFA 108 (90 Base) MCG/ACT INHALE TWO PUFFS BY MOUTH EVERY 4 HOURS NEEDED FOR SHORTNESS OF BREATH/COUGH 17 Active RESULTS No Results PROCEDURES Procedure Date Ordered Result Body Site B12, VITAMIN (UP TO 1000 MCG) May 10, 2017 THER/PROPH/DIAG INJ, SC/IM May 10, 2017 INSTRUCTIONS MEDICATIONS ADMINISTERED No Known Medications MEDICAL (GENERAL) HISTORY Type Description Date Medical History Hypertension Medical History Chronic Obstructive pulmonary disease diagnosed 2008 in [place]-PFT not done previously Medical History Gastrointestinal disorder [...]
--- OUTSIDE RECORDS SUMMARY | 2018-01-19 09:26 | XMS REPORT ---
Author Author BRETT JOHNSON Organization [facility] Address [address] [place] [address] Care Team Providers Care Vessel Crew Member Name Role Phone BRETT JOHNSON Unavailable PROBLEMS Type Condition ICD9-CM Code [id number] Code Onset Dates Condition Status SNOMED Code Problem Generalized anxiety disorder F41.1 Active 08416914 Problem Oral phase dysphagia R13.11 Active 755095234 Problem Chronic obstructive pulmonary disease, unspecified COPD type J44.9 Active 23916288 Problem Hypertension, benign I10 Active 56911446 Problem Vitamin B 12 deficiency E53.8 Active 28470090 Problem Agoraphobia with panic attacks F40.01 Active 165396483 Problem COPD with exacerbation J44.1 Active 581566556 Problem Chronic sinusitis, unspecified J32.9 Active 31314189 Problem Chronic fatigue R53.82 Active 90277061 Problem Other chronic pain G89.29 Active 08889994 Problem Gastroesophageal reflux disease without esophagitis K21.9 Active 824698440 ALLERGIES Substance Reaction Event Type Date Status MethylPREDNISolone goes crazy Drug Allergy May, Active Ketorolac Tromethamine tingling in lips Drug Allergy May, Active Augmentin 875-125 Mg Tablet Pt states this medication is to harsh on her stomach. Non Drug Allergy May, Active ENCOUNTERS Encounter Location Date Diagnosis [facility] [address] [facility] [id number] [address] January, [facility] [address] [id number] [place] [address] Dec [facility] [address] [facility] [id number] [place] [address] Dec, [facility] [address] [facility] [id number] [place] [address] 137[address] Dec, [facility] [address] [place] [address] 6[address] Dec, [facility] [id number] [place] [address] 74023- 5954 Dec, [facility] [id number] [place] [address] 66717- 4643 Dec, Flank pain R10.9 [facility] [id number] [place] [address] 99569- 3871 Dec, [facility] [id number] [place] [address] 74775- 9182 Nov, [place] [address] [address] Nov, [place] [id number] [place] [address] 88054- 2437 Nov, [facility] [id number] [place] [address] 67244- 0255 Nov, Pericardial effusion I31.3 ; Agoraphobia with panic attacks F40.01 and Vitamin B 12 deficiency E53.8 [facility] [id number] [place] [address] 91377- 0518 Nov, [facility] [id number] [place] [address] 20742- 0270 Nov, Pneumonia of both lungs due to infectious organism, unspecified part of lung J18.9 and Flank pain R10.9 [facility] [id number] [place] [address] 03265- 2564 Nov, Pneumonia of both lungs due to infectious organism, unspecified part of lung J18.9 and Gastroenteritis K52.9 [place] [id number] [place] [address] 26040- 9633 Oct, Pneumonia of both lungs due to infectious organism, unspecified part of lung J18.9 and Vitamin B 12 deficiency E53.8 [facility] [id number] [place] [address] [id number] Oct, [facility] [id number] [place] [address] 44741- 9301 Oct, [facility] [id number] [place] [address] 384888- 8982 Oct, [facility] [id number] [place] [address] 18915- 5325 Oct, Flank pain R10.9 [facility] [id number] [place] [address] 64220- 1271 Oct, Other chronic pain G89.29 and Unspecified abdominal pain R10.9 [facility] [id number] [place] [address] 36346- 7956 Sep, Flank pain R10.9 [facility] [id number] [place] [address] 09915- 2545 Sep, [facility] [id number] [place] [address] 65321- 2016 Sep, [facility] [id number] [place] [address] 50826- 0457 Sep, Acute non-recurrent maxillary sinusitis J01.00 [facility] [id number] [place] [address] 10812- 1907 Sep, Acute non-recurrent maxillary sinusitis J01.00 and Vitamin B 12 deficiency E53.8 [facility] [id number] [place] [address] 09670- 1388 Sep, [facility] [id number] [place] [address] 29067- 8586 Sep, [facility] [id number] [place] [address] 20839- 0676 Sep, [facility] [id number] [place] [address] 28731- 3149 Sep, COPD with exacerbation J44.1 [place] [id number] [place] [address] 67169- 0876 Sep, Chronic obstructive pulmonary disease, unspecified COPD type J44.9 [place] [address] 72495- 3194 Aug, Flank pain R10.9 [place] [address] 98214- 9096 Jul, Flank pain R10.9 and Vitamin B 12 deficiency E53.8 [place] [address] 81238- 5836 Jul, [place] [address] 93288- 9992 Jun, Gastroenteritis K52.9 [place] [address] 34252- 4101 May, Gastroenteritis K52.9 and Vitamin B 12 deficiency E53.8 [place] [id number] [place] [address] 01246- 2948 Apr, Allergic conjunctivitis of left eye H10.12 and Chronic fatigue R53.82 [place] [id number] [place] [address] 91912- 8335 Apr, Chronic sinusitis, unspecified J32.9 [place] [id number] [place] [address] 76200- 9896 Apr, [place] [id number] [place] [address] 34994- 8060 Feb, [place] [id number] [place] [address] 10475- 3445 January, [place] [id number] [place] [address] 14201- 9548 Dec, [place] [id number] [place] [address] 15407- 7929 Oct, [place] [id number] [place] [address] 46506- 7617 Sep, Oral phase dysphagia R13.11 and Vitamin B 12 deficiency E53.8 [place] [id number] [place] [address] 32030- 1717 Sep, [place] [id number] [place] [address] 77207- 9644 Jul, [place] [address] 79853- 3538 Jul, [place] [id number] [place] [address] 32084- 5976 Jun, Bronchitis J40 ; Generalized anxiety disorder F41.1 and Chronic obstructive pulmonary disease, unspecified COPD type J44.9 [place] [address] 86613- 3383 Jun, [place] [address] 11762- 2605 Jun, [place] [id number] [place] [address] 42184- 0656 Jun, [place] [id number] [place] [address] 34165- 0528 May, Vitamin B 12 deficiency E53.8 ; Essential (primary) hypertension I10 ; Generalized anxiety disorder F41.1 ; Pain in joint, ankle and foot 719.47 ; Arthritis M19.90 ; Chronic obstructive pulmonary disease, unspecified COPD type J44.9 and Encounter for immunization Z23 [place] [id number] [place] [address] 24449- 0432 Apr, [place] [address] 01313- 4828 Apr, [place] [id number] [place] [address] 87401- 6745 Mar, [place] [address] 97483- 9907 January, [facility] [address] [address]- 6706 Dec, [facility] [address] [place] [address] 25427- 8565 Oct, [facility] [address] [place] [address] 70974- 9401 Oct, [facility] [id number] [place] [address] 52476- 0843 Oct, Hypertension, benign I10 and Vitamin B 12 deficiency E53.8 [facility] [address] [place] [address] 98955- 4089 Oct, [facility] [address] [place] [address] 69982- 0027 Oct, [facility] [id number] [place] [address] 12567- 0801 Oct, Irritable bowel syndrome with diarrhea K58.0 [facility] [address] [place] [address] 86202- 0885 Oct, [facility] [address] [place] [address] 80571- 7489 Oct, Vitamin B 12 deficiency E53.8 ; Hypertension, benign I10 and Chronic obstructive pulmonary disease, unspecified COPD type J44.9 [facility] [address] [place] [address] 42285- 1189 Sep, Irritable bowel syndrome with diarrhea K58.0 ; Hypertension , benign I10 ; Chronic obstructive pulmonary disease, unspecified COPD type J44.9 ; Edema, unspecified type R60.9 ; Vision changes H53.9 and Vitamin B 12 deficiency E53.8 [facility] [address] [address]- 6852 Sep, [facility] [address] [place] [address] 60892- 1741 Jul, Degenerative disc disease 722.6 [facility] [address] [place] [address] 59376- 4034 Jun, Pain in right leg M79.604 ; Encounter for immunization Z23 and Pain of left leg M79.605 [facility] [id number] [place] [address] 73949- 8086 Jun, [facility] [address] 02101 2549 Jun, [facility] [id number] [place] [address] 11004- 2888 Jun, Degenerative disc disease 722.6 [facility] [id number] [place] [address] 32423- 6770 Jun, [facility] [id number] [place] [address] 24197- 7269 May, Seizures 780.39 and Autonomic peripheral neuropathy 337.9 [facility] [id number] [place] [address] 35489- 3331 May, [facility] [id number] [place] [address] 28626- 0689 May, [facility] [id number] [place] [address] 91120- 5172 May, Degenerative disc disease 722.6 [facility] [id number] [place] [address] 40340- 2543 May, [facility] [id number] [place] [address] 32278- 6216 Mar, [facility] [id number] [place] [address] 87003- 6833 Mar, Degenerative disc disease 722.6 ; Spinal stenosis 724.00 and HTN (hypertension) 401.9 [facility] [id number] [place] [address] 85445- 2545 Feb, Cutaneous horn 702.8 [facility] [address] [place] [address] 76967- 2882 Feb, Fatigue 780.79 [facility] [id number] [place] [address] 60047- 2559 08 Feb, 2015 Fatigue 780.79 ; Arthritis 716.90 ; Spinal stenosis 724.00 ; Sinusitis 473.9 and Cutaneous horn 702.8 [facility] [id number] [address]- 3277 January, [facility] [id number] [place] [address] 72745- 1647 Dec, [facility] [id number] [place] [address] 61074- 3669 Dec, [facility] [id number] [place] [address] 05553- 6664 Nov, [facility] [id number] [place] [address] 02165- 6380 Nov, [facility] [id number] [place] [address] 369992- 8965 Oct, [facility] [address] [address]- 9080 Oct, [facility] [id number] [place] [address] 07869- 5879 Oct, [facility] [address] [place] [address] 113400- 8629 Oct, [facility] [id number] [place] [address] 24110- 4736 Oct, [facility] [id number] [address]- 2236 Oct, [facility] [address] [place] [address] 93460- 2309 Sep, [facility] [place] [facility] [address] [id number] [place] [address]- 2258 Sep, [facility] [place] [facility] [address] [id number] [place] [address]- 6707 Sep, [facility] [place] [facility] [address] [id number] [place] [address]- 8430 Sep, [facility] [place] [facility] [address] [id number] [place] [address]- 9389 Sep, [facility] [place] [facility] [address] [id number] [place] [address]- 7838 Sep, [facility] [place] [facility] [address] [id number] [place] [address]- 9067 Sep, [facility] [place] [facility] [address] [id number] [place] [address]- 5725 Sep, [facility] [place] [facility] [address] [id number] [place] [address]- 3793 Sep, [facility] [place] [facility] [address] [id number] [place] [address]- 7599 Sep, [facility] [place] [facility] [address] [id number] [place] [address]- 3857 Sep, [facility] [place] [facility] [address] [id number] [place] [address]- 5311 Sep, [facility] [place] [facility] [address] [id number] [place] [address]- 4674 Sep, [facility] [place] [facility] [address] [id number] [place] [address]- 6418 Sep, [facility] [place] [facility] [address] [id number] [place] [address]- 6746 Aug, [facility] [place] [facility] [address] [id number] [place] [address]- 7489 Aug, [facility] [place] [facility] [address] [id number] [place] [address]- 4649 Aug, [facility] [place] [facility] [address] [id number] [place] [address]- 3882 Aug, [facility] [place] [facility] [address] [id number] [place] [address]- 0979 Jul, [facility] [place] [facility] [address] [id number] [place] [address]- 5442 Jul, [facility] [place] [facility] [address] [id number] [place] [address]- 7356 May, [facility] [place] [facility] [address] [id number] [place] [address]- 9784 May, [facility] [place] [facility] [address] [id number] [place] [address]- 8893 May, [facility] [place] [facility] [address] [id number] [place] [address]- 3337 May, [facility] [place] [facility] [address] [id number] [place] [address]- 4108 May, [facility] [place] [facility] [address] [id number] [place] [address]- 9880 May, [facility] [place] [facility] [address] [id number] [place] [address]- 5520 Apr, [facility] [place] [facility] [address] [id number] [place] [address]- 4108 Apr, [facility] [place] [facility] [address] [id number] [place] [address]- 2516 Mar, [facility] [place] [facility] [address] [id number] [place] [address]- 9235 Mar, [facility] [place] [facility] [address] [id number] [place] [address]- 9584 Mar, [facility] [place] [facility] [address] [id number] [place] [address]- 6610 Mar, [facility] [place] [facility] [address] [id number] [place] [address]- 4562 Mar, [facility] [place] [facility] [address] [id number] [place] [address]- 5864 Mar, [facility] [place] [facility] [address] [id number] [place] [address]- 9020 Mar, [facility] [place] [facility] [address] [id number] [place] [address]- 5833 Mar, [facility] [place] [facility] [address] [id number] [place] [address]- 1992 Feb, [facility] [place] [facility] [address] [id number] [place] [address]- 6095 Feb, [facility] [place] [facility] [address] [id number] [place] [address]- 2394 January, [facility] [place] [facility] [address] [id number] [place] [address]- 7446 January, [facility] [place] [facility] [address] [id number] [place] [address]- 1510 January, [facility] [place] [facility] [address] [id number] [place] [address]- 9261 January, [facility] [place] [facility] [address] [id number] [place] [address]- 5993 Dec, [facility] [place] [facility] [address] [id number] [place] [address]- 7579 Dec, [facility] [place] [facility] [address] [id number] [place] [address]- 7220 Oct, [facility] [place] [facility] [address] [id number] [place] [address]- 7408 Oct, [facility] [place] [facility] [address] [id number] [place] [address]- 9595 Oct, [facility] [place] [facility] [address] [id number] [place] [address]- 3600 Oct, [facility] [address] [id number] [place] [address]- 1640 Sep, [facility] [place] [facility] [address] [id number] [place] [address]- 6697 Sep, [facility] [address] [facility] [id number] [place] [address]- 8011 Aug, [facility] [place] [facility] [address] [id number] [place] [address]- 1198 Aug, [facility] [address] [id number] [place] [address]- 5510 Aug, [facility] [place] [facility] [address] [id number] [place] [address]- 2352 Aug, [facility] [place] [facility] [address] [id number] [place] [address]- 4321 Aug, [facility] [place] [facility] [address] [id number] [place] [address]- 4052 Aug, [facility] [place] [facility] [address] [id number] [place] [address]- 1610 Aug, [facility] [place] [facility] [address] [id number] [place] [address]- 7779 Aug, [facility] [place] [facility] [address] [id number] [place] [address]- 3038 Aug, [facility] [place] [facility] [address] [id number] [place] [address]- 3697 Aug, [facility] [place] [facility] [address] [id number] [place] [address]- 9949 Jul, [facility] [place] [facility] [address] [id number] [place] [address]- 2305 Jul, [facility] [place] [facility] [address] [id number] [place] [address]- 1714 Jun, [facility] [place] [facility] [address] [id number] [place] [address]- 8106 29 Jun, 2013 [facility] [address] [id number] [place] [address]- 8399 Jun, [facility] [place] [facility] [address] [id number] [place] [address]- 1416 16 Jun, 2013 [facility] [address] [id number] [place] [address]- 2365 Jun, [facility] [address] [id number] [place] [address]- 0651 May, [facility] [address] [id number] [place] [address]- 5805 May, [facility] [address] [id number] [place] [address]- 6399 12 May, 2013 [facility] [address] [id number] [place] [address]- 6298 06 May, 2013 [facility] [address] [id number] [place] [address]- 5744 May, [facility] [address] [id number] [place] [address]- 7510 Apr, [facility] [address] [id number] [place] [address]- 4798 Mar, [facility] [place] [facility] [address] [id number] [place] [address]- 2543 Mar, [facility] [address] [id number] [place] [address]- 2548 Mar, [facility] [place] [facility] [address] [id number] [place] [address]- 3461 Mar, [facility] [place] [facility] [address] [id number] [place] [address]- 0336 Mar, [facility] [place] [facility] [address] [id number] [place] [address]- 2288 Mar, [facility] [address] [id number] [place] [address]- 6181 Mar, [facility] [place] [facility] [address] [id number] [place] [address]- 5033 Mar, [facility] [place] [facility] [address] [id number] [place] [address]- 6610 Mar, [facility] [place] [facility] [address] [id number] [place] [address]- 1852 Feb, [facility] [address] [id number] [place] [address]- 1004 Feb, [facility] [place] [facility] [address] [id number] [place] [address] Feb, [facility] [address] [id number] [place] [address] January, [facility] [address] [id number] [place] [address] January, [facility] [place] [facility] [address] [id number] [place] [address] January, [facility] [place] [facility] [address] [id number] [place] [address] January, [facility] [place] [facility] [address] [id number] [place] [address] Dec, [facility] [place] [facility] [address] [id number] [place] [address] 17 Dec, 2012 [facility] [place] [facility] [address] [id number] [place] [address] 12 Dec, 2012 [facility] [place] [facility] [address] [id number] [place] [address] 10 Dec, 2012 [facility] [place] [facility] [address] [id number] [place] [address] 08 Dec, 2012 [facility] [place] [facility] [address] [id number] [place] [address] 08 Dec, 2012 [facility] [address] [id number] [place] [address] Nov, [facility] [place] [facility] [address] [id number] [place] [address] Oct, [facility] [address] [id number] [place] [address] Aug, [facility] [place] [facility] [address] [id number] [place] [address] Aug, [facility] [address] [id number] [place] [address] Aug, [facility] [address] [id number] [place] [address] Aug, [facility] [address] [facility] [id number] [place] [address] Aug, [facility] [place] [facility] [address] [id number] [place] [address] Aug, [facility] [address] [id number] [place] [address] Aug, [facility] [place] [facility] [address] [facility] [id number] [place] [address] Aug, [facility] [place] [facility] [address] [id number] [place] [address] Aug, [facility] [place] [facility] [address] [id number] [place] [address] Aug, [facility] [place] [facility] [address] [id number] [place] [address] Aug, [facility] [place] [facility] [address] [id number] [place] [address] Jul, [facility] [place] [facility] [address] [facility] [id number] [place] [address] Jul, [facility] [place] [facility] [address] [id number] [place] [address] Jul, [facility] [place] [facility] [address] [id number] [place] [address] Jul, [facility] [place] [facility] [address] [id number] [place] [address] Jul, [facility] [place] [facility] [address] [id number] [place] [address] Jul, [facility] [place] [facility] [address] [id number] [place] [address] Jun, [facility] [place] [facility] [address] [id number] [place] [address] Jun, [facility] [place] [facility] [address] [id number] [place] [address] May, [facility] [place] [facility] [address] [id number] [place] [address] Apr, [facility] [place] [facility] [address] [id number] [place] [address] Apr, [facility] [place] [facility] [address] [id number] [place] [address] Apr, [facility] [place] [facility] [address] [id number] [place] [address] Apr, [facility] [place] [facility] [address] [id number] [place] [address] Apr, [facility] [place] [facility] [address] [id number] [place] [address] Mar, [facility] [place] [facility] [address] [id number] [place] [address] Mar, [facility] [place] [facility] [address] [id number] [place] [address] January, [facility] [place] [facility] [address] [id number] [place] [address] January, [facility] [address] [id number] [place] [address] Nov, [facility] [place] [facility] [address] [id number] [place] [address] Oct, [facility] [place] [facility] [address] [id number] [place] [address] Sep, [facility] [place] [facility] [address] [id number] [place] [address] Sep, [facility] [address] [id number] [place] [address] Sep, [facility] [place] [facility] [address] [id number] [place] [address]- [address] Sep, [facility] [place] [facility] [address] [id number] [place] [address] Sep, [facility] [place] [facility] [address] [id number] [place] [address] Sep, [facility] [place] [facility] [address] [id number] [place] [address] Aug, [facility] [place] [facility] [address] [id number] [place] [address] Aug, [facility] [place] [facility] [address] [id number] [address] Aug, [facility] [place] [facility] [address] [id number] [place] [address] Aug, [facility] [place] [facility] [address] [id number] [place] [address] Aug, [facility] [place] [facility] [address] [id number] [place] [address] Jul, [facility] [place] [facility] [address] [id number] [place] [address] Jul, [facility] [place] [facility] [id number] [address] Jul, [facility] [id number] [address] Jun, [facility] [id number] [address] Jun, [facility] [id number] [address] Jun, [facility] [id number] [address] January, [facility] [id number] [place] [address] Dec, [facility] [id number] [address] Oct, [facility] [id number] [address] Oct, [facility] [id number] [address] Jun, [facility] [id number] [address] Aug, [facility] [id number] [address] Aug, [facility] [id number] [address] Jul, [facility] [id number] [address] Mar, IMMUNIZATIONS Vaccine Route Administration Date Status B12, VITAMIN (UP TO 1000 MCG) IM Intramuscular Jun 10, 2017 Administered SOCIAL HISTORY Never Assessed REASON FOR VISIT Pain management (chronic), PT says her stomach has gotten worse with pain, gas and wakes her up at night- Suzie CHUN PLAN OF CARE VITAL SIGNS Height 67 in 2017-06-10 Weight 193.1 lbs 2017-06-10 Temperature 98.6 degrees Fahrenheit 2017-06-10 Heart Rate 78 bpm 2017-06-10 Respiratory Rate 22 2017-06-10 BMI 30.24 kg/m2 2017-06-10 Blood pressure systolic 144 mmHg 2017-06-10 Blood pressure diastolic 92 mmHg 2017-06-10 MEDICATIONS Medication Instructions Dosage Frequency Start Date End Date Duration Status Dicyclomine HCl 20 mg Orally Four times a day PRN 1 tablet 30 Active Albuterol Sulfate (2.5 MG/3ML) 0.083% Inhalation every 4 hrs 3 ml 4h Oct Active Cetirizine HCl 10 mg 1 tablet 24h 30 Active Advair Diskus 500-50 MCG/DOSE Inhalation Twice a day 1 puffs by Inhalation route 2 times per day 12h 30 Active Cyclobenzaprine HCl 10 MG TAKE ONE TABLET BY MOUTH TWICE DAILY NEEDED 30 Active Xanax 0.5 MG Orally 4 times a day take 1 tablet 6h Nov, 28 days Active Acidophilus 100 mg Orally Once a day 1 capsule 24h May, Active Ranitidine HCl 150 MG 1 tablet as needed 12h 30 Active Atenolol 100 mg 0.5 tablet by Oral route 2 times per day 12h 30 Active Cromolyn Sodium 4 % Ophthalmic Four times a day 1 drop into affected eye 6h Apr, Active Omeprazole 20 mg 2 capsules 24h 30 Active ProAir HFA 108 (90 Base) MCG/ACT 2 puffs as needed 6h Active Fluticasone Propionate 50 MCG/ACT Nasally 2 times a day 1 spray in each nostril 12h 30 days Active RESULTS No Results PROCEDURES Procedure Date Ordered Result Body Site B12, VITAMIN (UP TO 1000 MCG) Jun 10, 2017 THER/PROPH/DIAG INJ, SC/IM Jun 10, 2017 INSTRUCTIONS MEDICATIONS ADMINISTERED No Known Medications MEDICAL (GENERAL) HISTORY Type Description Date Medical History Hypertension Medical History Chronic Obstructive pulmonary disease diagnosed 2008 in [place]-PFT not done previously Medical History Gastrointestinal disorder IBS diverticulosis Medical History Metabloic disorders-Vitamin B12 and Vitamin D deficiencies Medical History Bilateral knee problems Medical History Backache Medical History History of blood clots during treated with heparin Medical History bilatera edema to the legs Medical History pericardial effusion Medical History pneumonia Medical History Bronchitis Surgical History Cholecystectomy 1976 Surgical History Hital hernia and umbilical hernia reparied x2 previously Surgical History Dental surgery Surgical History appendectomy Surgical History Hysterectomy TVH w RSO for fibroids and precancerous cell for the cervix 1997 Surgical History section 1991 Surgical History EGD, Scope, Colonoscopy Surgical History pericardial effusion 09/02/17 Hospitalization History surgeries Hospitalization History edema 06/2015 Hospitalization History Pneumonia 08/2017 Hospitalization History Pneumonia 09/2017 Hospitalization History severe sepsis, pleural effusion-[facility] 11/06/17
[2018-01-19] MEDS ORDERED: CLON0.1T (09:31)
[2018-01-19] MEDS ORDERED: AMLO5TAB2 (09:31)
[2018-01-19 10:10] LABS: BILIRUBIN,URINE NEGATIVE (NEGATIVE); CLARITY,URINE CLEAR; COLOR,URINE YELLOW; GLUCOSE, URINE (UA) NEGATIVE (NEGATIVE); KETONES,URINE NEGATIVE (NEGATIVE); LEUKOCYTE ESTERASE ,URINE NEGATIVE (NEGATIVE); NITRITE,URINE NEGATIVE (NEGATIVE); PH,URINE 6 (5-9); PROTEIN,URINE NEGATIVE (NEGATIVE); UROBILINOGEN,URINE NORMAL (NORMAL)
[2018-01-19 10:14] LABS: BASOPHILS % (AUTO) 0 % (0-10); EOSINOPHILS % (AUTO) 0 % (0-10); HEMATOCRIT 44 % (35-52); HEMOGLOBIN 15.1 G/DL (11.5-16.0); LYMPHOCYTES # (AUTO) 1.6 X 10^3 (1.0-4.0); LYMPHOCYTES % (AUTO) 15 % (12-44); MEAN CORPUSCULAR HEMOGLOBIN 28 PG (25-34); MEAN CORPUSCULAR HGB CONC 34 G/DL (32-36); MEAN CORPUSCULAR VOLUME 83 FL (80-99); MEAN PLATELET VOLUME 9.5 FL (7.4-10.4); MONOCYTES # (AUTO) 1.1 X 10^3 (0.0-1.0); MONOCYTES % (AUTO) 10 % (0-12); NEUTROPHILS % (AUTO) 75 % (42-75); PLATELET COUNT 217 10^3/uL (130-400); RED BLOOD COUNT 5.31 10^6/uL (4.35-5.85); RED CELL DISTRIBUTION WIDTH 15.2 % (10.0-14.5); WHITE BLOOD COUNT 10.7 10^3/uL (4.3-11.0)
[2018-01-19 10:26] LABS: ALANINE AMINOTRANSFERASE 6 U/L (0-55); ALBUMIN 4.2 GM/DL (3.2-4.5); ALKALINE PHOSPHATASE 78 U/L (40-136); BILIRUBIN,TOTAL 0.5 MG/DL (0.1-1.0); BUN/CREATININE RATIO 7; CALCIUM 9.9 MG/DL (8.5-10.1); CARBON DIOXIDE 24 MMOL/L (21-32); CHLORIDE 101 MMOL/L (98-107); CREATININE SERUM 0.87 MG/DL (0.60-1.30); GFR ESTIMATED > 60; GLUCOSE 130 MG/DL (70-105); POTASSIUM 3.8 MMOL/L (3.6-5.0); SODIUM 138 MMOL/L (135-145); TOTAL PROTEIN 7.8 GM/DL (6.4-8.2)
[2018-01-19 10:31] LABS: AMPHETAMINE SCREEN, URINE NEGATIVE (NEGATIVE); BARBITURATE SCREEN URINE NEGATIVE (NEGATIVE); BENZODIAZEPINES SCREEN URINE POSITIVE (NEGATIVE); CANNABINOID SCREEN, URINE NEGATIVE (NEGATIVE); COCAINE SCREEN URINE NEGATIVE (NEGATIVE); METHADONE STAT NEGATIVE (NEGATIVE); METHAMPHETAMINE SCREEN URINE S NEGATIVE (NEGATIVE); OPIATE SCREEN URINE NEGATIVE (NEGATIVE); OXYCODONE STAT NEGATIVE (NEGATIVE); PROPOXYPHENE STAT NEGATIVE (NEGATIVE); TRICYCLIC ANTIDEPRESSANTS SCRE NEGATIVE (NEGATIVE)
[2018-01-19 10:33] LABS: BACTERIA,URINE TRACE /HPF
--- NOTE | 2018-01-19 10:38 | ED General ---
General Chief Complaint: General Problems/Pain Stated Complaint: CHEST PAIN, BACK PAIN Nursing Triage Note: AMB TO ROOM REPORTS THAT X 4 DAYS HAS BEEN HAVING BACK AND R SIDE OF CHEST PAIN WORSE WHEN BREATHING AND MOVING. REPORTS HYDROCODONE NOT HELPING WITH PAIN Nursing Sepsis Screen: No Definite Risk Source of Information: Patient Exam Limitations: No Limitations History of Present Illness Date Seen by Provider: Jan 19, 2018 Time Seen by Provider: 10:36 Initial Comments The patient is a 52-year-old white female known to me. She presents with a litany of complaints. She states for the last 4 or 5 days she has been having right-sided chest pain as well as pain above the shoulder blades and in the neck. She described this to gas. She has been taking Gas-X with little or no improvement. She has not had a bowel movement in 5 days or more. She states that she has had a previous pericardial effusion with a pericardial window. She has been taking a multiple regimen of antihypertensives. She states she has not taken them in several days as her blood pressure had become too low. She had not addressed this with any of her providers. She also states that she believes that the antihypertensives have contributed to her constipation. She has been able to smoke however Timing/Duration: 4-5 Days Allergies and Home Medications Allergies Coded Allergies: buspirone HCl (Verified Allergy, Unknown, 08/14/15) etodolac (Verified Allergy, Unknown, 08/14/15) NSAIDS (Non-Steroidal Anti-Inflamma (Verified Adverse Reaction, Unknown, 08/14/15) Neuromuscular Blockers, Steroidal (Verified Adverse Reaction, Unknown, ) gabapentin (Verified Adverse Reaction, Unknown, 08/14/15) Home Medications Albuterol Sulfate 1 Puff Puff, 2 PUFF INH QID PRN for SHORTNESS OF BREATH, ( Reported) Albuterol Sulfate 2.5 Mg/3 Ml Vial.neb, 2.5 MG NEB Q4H PRN for SHORTNESS OF BREATH, (Reported) Alprazolam 0.5 Mg Tablet, 0.5 MG PO TID PRN for ANXIETY, (Reported) Aspirin 325 Mg Tablet.dr, 325 MG PO DAILY, (Reported) Atenolol 100 Mg Tablet, 50 MG PO BID, (Reported) TAKES 1/2 (100MG) TABLET Cetirizine HCl 10 Mg Tablet, 10 MG PO DAILY, (Reported) Cholecalciferol (Vitamin D3) 5,000 Unit Tablet, 5,000 UNIT PO DAILY, (Reported) Cyanocobalamin 1,000 Mcg/Ml Inj, 1,000 MCG IJ MONTHLY, (Reported) Dicyclomine HCl 20 Mg Tablet, 20 MG PO QID PRN for STOMACH UPSET, (Reported) Docusate Sodium 100 Mg Capsule, 100 MG PO BID PRN for CONSTIPATION-1ST LINE, ( Reported) Docusate Sodium 100 Mg Capsule, 100 MG PO BID, (Reported) Fluticasone Propionate 16 Gm [place].susp, 1 SPRAY NSEACH BID, (Reported) Fluticasone/Salmeterol 1 Each Blst.w.dev, 1 PUFF IH BID, (Reported) Guaifenesin 400 Mg Tablet, 400 MG PO Q4H PRN for CONGESTION, (Reported) Hydrocodone Bit/Acetaminophen 1 Tab Tab, 1 TAB PO Q6H PRN for PAIN-MODERATE, ( Reported) Ibuprofen 600 Mg Tablet, 600 MG PO Q6H PRN for PAIN-MILD, (Reported) Lactobacillus Acidophilus 1 Each Capsule, 1 CAP PO DAILY, (Reported) Losartan Potassium 25 Mg Tablet, 25 MG PO DAILY, (Reported) [place] 3 Polyunsat Fatty Acids 1,000 Mg Cap, 2,000 MG PO BID, (Reported) Omeprazole 40 Mg Capsule.dr, 40 MG PO DAILY, (Reported) Ranitidine HCl 150 Mg Tablet, 150 MG PO BID, (Reported) Simethicone 125 Mg Tab.chew, 2 TAB PO BID PRN for GAS, (Reported) Patient Home Medication List Home Medication List Reviewed: Yes Review of Systems Constitutional: see HPI EENTM: no symptoms reported Respiratory: cough Cardiovascular: chest pain, other (concerns because of previous pericarditis) Gastrointestinal: no symptoms reported Musculoskeletal: back pain Skin: no symptoms reported Psychiatric/Neurological: No Symptoms Reported Hematologic/Lymphatic: No Symptoms Reported Immunological/Allergic: no symptoms reported Past Ifrbnfh-Pbshbb-Oeosqx Hx Patient Social History Alcohol Use: Denies Use Recreational Drug Use: No Type Used: Cigarettes, Electronic/Vapor 2nd Hand Smoke Exposure: Yes Recent Foreign Travel: No Contact w/Someone Who Travel: No Recent Infectious Disease Expo: No Recent Hopitalizations: Yes (SEPSIS 10/2017) Immunizations Up To Date Tetanus Booster (TDap): Unknown Date of Pneumonia Vaccine: Jun 07, 2016 Date of Influenza Vaccine: Nov 08, 2017 Seasonal Allergies Seasonal Allergies: Yes Past Medical History Surgeries: Yes (pericardial window) Abdominal, Appendectomy, Cardiac, Section, Gallbladder, Hysterectomy, Oophorectomy Respiratory: Yes Asthma, Pneumonia, Pulmonary Embolism, Sleep Apnea, COPD, Emphysema Currently Using CPAP: No Currently Using BIPAP: No Cardiac: Yes (Pericardial effusion-S/P PERICARDIAL WINDOW 08/2017) Atrial Fibrillation, Chronic Edema/Swelling, Deep Vein Thrombosis, High Cholesterol, Hypertension Neurological: Yes (PSEUDO SEIZURES ) Seizure Disorder 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 Disorders: Yes 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, 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, Menopausal Genitourinary: No Gastrointestinal: Yes (CHOKES EASILY) Abdominal Hernia, Gastroesophageal Reflux, Diverticulosis, Hiatal Hernia, Ulcer , Gall Bladder Disease, Irritable Bowel Musculoskeletal: Yes (CHRONIC KNEE AND HIP PAIN, SPINAL STENOSIS) Degenerate Disk Disease, Osteoporosis, Arthritis, Chronic Back Pain Endocrine: No HEENT: No Cancer: No Psychosocial: Yes Pseudo Seizures, Anxiety, Depression Integumentary: Yes Eczema Blood Disorders: No Adverse Reaction/Blood Tranf: No Family Medical History FH: cirrhosis 19 MOTHER FH: liver cancer 19 MOTHER FHx: lung cancer 19 FATHER Hypertension 19 FATHER 19 MOTHER Physical Exam Vital Signs Vital Signs - First Documented 01/19/18 09:16 Temp 98.0 Pulse 80 Resp 18 B/P (MAP) 160/97 (118) Pulse Ox 98 O2 Delivery Room Air Capillary Refill : Less Than 3 Seconds General Appearance: Mild Distress Eyes: Bilateral Eye Normal Inspection HEENT: Normal ENT Inspection Neck: Normal Inspection Respiratory: Chest Non Tender, Lungs Clear, Normal Breath Sounds, No Accessory Muscle Use, No Respiratory Distress, Other (strong odor of cigarettes) Cardiovascular: Regular Rate, Rhythm, No Edema, No Gallop, No JVD, No Murmur, Normal Peripheral Pulses Gastrointestinal: Normal Bowel Sounds, No Organomegaly, No Pulsatile Mass, Non Tender, Soft Back: Normal Inspection, No CVA Tenderness, No Vertebral Tenderness Extremity: Normal Capillary Refill, Normal Inspection, Normal Range of Motion, Non Tender, No Calf Tenderness, No Pedal Edema Neurologic/Psychiatric: Alert, Oriented x3, No Motor/Sensory Deficits, Normal Mood/Affect Skin: Normal Color, Warm/Dry Lymphatic: No Adenopathy Progress/Results/Core Measures Suspected Sepsis Recent Fever Within 48 Hours: No Infection Criteria Present: None New/Unexplained Altered Menta: No Sepsis Screen: No Definite Risk SIRS Temperature:98.0 Pulse: 80 Respiratory Rate: 18 Laboratory Tests 01/19/18 09:55: White Blood Count 10.7 Blood Pressure 160 /97 Mean: 118 Laboratory Tests 01/19/18 09:55: Creatinine 0.87, Platelet Count 217, Total Bilirubin 0.5 Results/Orders Lab Results Laboratory Tests Test 01/19/18 09:55 Range/Units White Blood Count 10.7 4.3-11.0 10^3/uL Red Blood Count 5.31 4.35-5.85 10^6/uL Hemoglobin 15.1 11.5-16.0 G/DL Hematocrit 44 35-52 % Mean Corpuscular Volume 83 80-99 FL Mean Corpuscular Hemoglobin 28 25-34 PG Mean Corpuscular Hemoglobin Concent 34 32-36 G/DL Red Cell Distribution Width 15.2 H 10.0-14.5 % Platelet Count 217 130-400 10^3/uL Mean Platelet Volume 9.5 7.4-10.4 FL Neutrophils (%) (Auto) 75 42-75 % Lymphocytes (%) (Auto) 15 12-44 % Monocytes (%) (Auto) 10 0-12 % Eosinophils (%) (Auto) 0 0-10 % Basophils (%) (Auto) 0 0-10 % Neutrophils # (Auto) 8.0 H 1.8-7.8 X 10^3 Lymphocytes # (Auto) 1.6 1.0-4.0 X 10^3 Monocytes # (Auto) 1.1 H 0.0-1.0 X 10^3 Eosinophils # (Auto) 0.0 0.0-0.3 10^3/uL Basophils # (Auto) 0.0 0.0-0.1 10^3/uL Urine Color YELLOW Urine Clarity CLEAR Urine pH 6 5-9 Urine Specific [place] 1.010 L 1.016-1.022 Urine Protein NEGATIVE NEGATIVE Urine Glucose (UA) NEGATIVE NEGATIVE Urine Ketones NEGATIVE NEGATIVE Urine Nitrite NEGATIVE NEGATIVE Urine Bilirubin NEGATIVE NEGATIVE Urine Urobilinogen NORMAL NORMAL MG/DL Urine Leukocyte Esterase NEGATIVE NEGATIVE Urine RBC (Auto) 1+ H NEGATIVE Urine RBC NONE /HPF Urine WBC NONE /HPF Urine Crystals NONE /LPF Urine Bacteria TRACE /HPF Urine Casts NONE /LPF Urine Mucus NEGATIVE /LPF Urine Culture Indicated NO Sodium Level 138 135-145 MMOL/L Potassium Level 3.8 3.6-5.0 MMOL/L Chloride Level 101 98-107 MMOL/L Carbon Dioxide Level 24 21-32 MMOL/L Anion Gap 13 5-14 MMOL/L Blood Urea Nitrogen 6 L 7-18 MG/DL Creatinine 0.87 0.60-1.30 MG/DL Estimat Glomerular Filtration Rate > 60 BUN/Creatinine Ratio 7 Glucose Level 130 H 70-105 MG/DL Calcium Level 9.9 8.5-10.1 MG/DL Total Bilirubin 0.5 0.1-1.0 MG/DL Aspartate Amino Transf (AST/SGOT) 8 5-34 U/L Alanine Aminotransferase (ALT/SGPT) 6 0-55 U/L Alkaline Phosphatase 78 40-136 U/L Total Protein 7.8 6.4-8.2 GM/DL Albumin 4.2 3.2-4.5 GM/DL Urine Opiates Screen NEGATIVE NEGATIVE Urine Oxycodone Screen NEGATIVE NEGATIVE Urine Methadone Screen NEGATIVE NEGATIVE Urine Propoxyphene Screen NEGATIVE NEGATIVE Urine Barbiturates Screen NEGATIVE NEGATIVE Ur Tricyclic Antidepressants Screen NEGATIVE NEGATIVE Urine Phencyclidine Screen NEGATIVE NEGATIVE Urine Amphetamines Screen NEGATIVE NEGATIVE Urine Methamphetamines Screen NEGATIVE NEGATIVE Urine Benzodiazepines Screen POSITIVE H NEGATIVE Urine Cocaine Screen NEGATIVE NEGATIVE Urine Cannabinoids Screen NEGATIVE NEGATIVE My Orders Orders - KARLOS WYLIE MD Cbc With Automated Diff (01/19/18 09:49) Comprehensive Metabolic Panel (01/19/18 09:49) Drug Screen Stat (Urine) (01/19/18 09:49) Ua Culture If Indicated (01/19/18 09:49) Iohexol Injection (Omnipaque 350 Mg/Ml 1 (01/19/18 11:15) Sodium Chloride Flush (Catheter Flush Sy (01/19/18 11:15) Ns (Ivpb) (Sodium Chloride 0.9%) (01/19/18 11:15) Ct Chest W (01/19/18 10:34) Medications Given in ED Current Medications Medications Dose Ordered Sig/Tino Route Start Time Stop Time Status Last Admin Dose Admin Iohexol 100 ml ONCE ONCE IV 01/19/18 11:15 01/19/18 11:16 DC 01/19/18 11:22 75 ML Sodium Chloride 10 ml NEEDED PRN IV 01/19/18 11:15 01/19/18 11:22 10 ML Sodium Chloride 250 ml ONCE ONCE IV 01/19/18 11:15 01/19/18 11:16 DC 01/19/18 11:22 80 ML Vital Signs/I&O 01/19/18 09:16 Temp 98.0 Pulse 80 Resp 18 B/P (MAP) 160/97 (118) Pulse Ox 98 O2 Delivery Room Air Capillary Refill : Less Than 3 Seconds Blood Pressure Mean: 118 Departure Communication (Admissions) The CT report was delayed for reasons unclear. Ultimately the report was available and it was reported that she has a small pericardial effusion and central lobular emphysema as previously noted. This was to have been done tomorrow as an outpatient and reported to Dr. Moore. 1325 Impression Primary Impression: chest pain Additional Impression: small pericardial effusion Disposition: 01 HOME, SELF-CARE Condition: Stable/Unchanged Departure-Patient Inst. Decision time for Depature: 13:29 Referrals: [facility] [place] (PCP/Family) Primary Care Physician Add. Discharge Instructions: All discharge instructions reviewed with patient and/or family. Voiced understanding. You may take the hydrocodone 5/325 2 every 6 hours as needed for pain. Keep appointment on Saturday with KARLOS Burks MD Jan 19, 2018 10:38
[2018-01-19] MEDS ORDERED: CATHETER FLUSH 10 ML SYR IV PRN (11:15)
[2018-01-19] MEDS ORDERED: NS 250 ML (IVPB) BAG IV ONE (11:15)
[2018-01-19] MEDS ORDERED: IOHEXOL 350 MG/ML 100 ML (OMNIPAQUE 350) VIAL IV ONE (11:15)
--- NOTE | 2018-01-19 13:14 | Diagnostic Imaging Report ---
PROCEDURE: CT chest with contrast only. TECHNIQUE: Multiple contiguous axial images were obtained through the chest after administration of intravenous contrast. DATE: 01/19/2018. COMPARISON: Chest radiographs 11/25/2017. CT chest 11/23/2017. Additional CT chest exams dating back to 08/29/2017. INDICATION: 52-year-old female, chest pain. FINDINGS: There is a 3 mm noncalcified right upper lobe pulmonary nodule on axial image 12 which is unchanged since recent comparison exam. This is unchanged dating back to at least 08/29/2017. There is a semisolid 5 mm right middle lobe pulmonary nodule on axial image 33 which may represent partial volume averaging of nodule seen on 08/29/2017. This is unchanged in size since that time. There are predominantly linear opacities in the right lower lobe likely relating to atelectasis and/or scarring. There are upper lobe predominant changes of centrilobular and paraseptal emphysema. There is no identified new or enlarging pulmonary nodule. There is no additional focal airspace consolidation. The central airways are patent. There is no pneumothorax. There is no pleural effusion. There is no identified central pulmonary embolus. There is limited evaluation for segmental and subsegmental pulmonary emboli given timing of the contrast bolus. The heart is not enlarged. There is a small pericardial effusion. There is no identified abnormally enlarged mediastinal, hilar, or axillary lymph node which specifically meets CT size criteria for adenopathy. The patient is status post cholecystectomy. There is prominence of the common bile duct which is also seen dating back to 08/29/2017. Additional limited visualized portions of the upper abdomen are grossly unremarkable in appearance. There is no identified acute bony abnormality. IMPRESSION: CT CHEST. 1. Small pericardial effusion. 2. Upper lobe predominant changes of centrilobular and paraseptal emphysema. 3. Stable subcentimeter right upper lobe and right middle lobe pulmonary nodules measuring up to 5 mm in size since August 2017. Recommend followup CT chest in 6 months to evaluate for continued stability. 4. Status post cholecystectomy with redemonstrated prominence of the common bile duct. 5. No identified central pulmonary embolus. Limited assessment for segmental and subsegmental pulmonary emboli given the timing of the contrast bolus. Dictated by: Dictated on workstation # [id number]
[2018-01-19 13:51] VITALS: BP 121/89
== END 2018-01-19 13:49 | disposition home or self-care (01) ==
LOC: EDUNIT# 09:16 → ER 09:17
DX: R07.89 Other chest pain (principal); I31.3 Pericardial effusion (noninflammatory); J43.9 Emphysema, unspecified; G47.30 Sleep apnea, unspecified; I48.91 Unspecified atrial fibrillation; E78.00 Pure hypercholesterolemia, unspecified; I10 Essential (primary) hypertension; G40.909 Epilepsy, unspecified, not intractable, without status epilepticus; K21.9 Gastro-esophageal reflux disease without esophagitis; M81.0 Age-related osteoporosis without current pathological fracture; F41.9 Anxiety disorder, unspecified; F32.9 Major depressive disorder, single episode, unspecified; F17.210 Nicotine dependence, cigarettes, uncomplicated; Z87.19 Personal history of other diseases of the digestive system; Z90.49 Acquired absence of other specified parts of digestive tract; Z80.1 Family history of malignant neoplasm of trachea, bronchus and lung; Z80.0 Family history of malignant neoplasm of digestive organs; Z87.01 Personal history of pneumonia (recurrent); Z86.718 Personal history of other venous thrombosis and embolism; Z87.59 Personal history of other complications of pregnancy, childbirth and the puerperium; Z90.710 Acquired absence of both cervix and uterus; Z88.6 Allergy status to analgesic agent; Z88.8 Allergy status to other drugs, medicaments and biological substances; Z79.51 Long term (current) use of inhaled steroids; Z79.82 Long term (current) use of aspirin; Z98.51 Tubal ligation status; Z87.448 Personal history of other diseases of urinary system
CPT/HCPCS: 36415; 71260; 80053; 80306; 81000; 85025; 93005

== ENCOUNTER 2018-03-28 12:11 | Emergency (ER) | payer MEDICAID ==
[~2018-03-28] VITALS: Ht 172.7 cm; Wt 77.1 kg
[~2018-03-28 12:11] MED LIST changes: -AMIO200T2 PO; +AMIO200T4 PO; +AMLO5TAB2; +CLON0.1T
--- OUTSIDE RECORDS SUMMARY | 2018-03-28 12:19 | XMS REPORT ---
Author Author BRETT JOHNSON Organization [facility] Address [address] [place] [address] Care Team Providers Care Analysis Intern Name Role Phone ELIZABETH BRETT Unavailable PROBLEMS Type Condition ICD9-CM Code QEI88-DG Code Onset Dates Condition Status SNOMED Code Problem Chronic sinusitis, unspecified J32.9 Active 16151563 Problem Other chronic pain G89.29 Active 86679099 Problem Gastroesophageal reflux disease without esophagitis K21.9 Active 343265071 Problem Slow transit constipation K59.01 Active 56058938 Problem Coronary artery disease involving [place] coronary artery of [place] heart without angina pectoris I25.10 Active 3146299779161 Problem Agoraphobia with panic attacks F40.01 Active 359276513 Problem COPD with exacerbation J44.1 Active 836197239 Problem Pericardial effusion I31.3 Active 541768057 Problem Pleural effusion on left J90 Active 52259878 Problem Generalized anxiety disorder F41.1 Active 22251470 Problem Chronic obstructive pulmonary disease, unspecified COPD type J44.9 Active 84247061 Problem Hypertension, benign I10 Active 25893018 Problem Oral phase dysphagia R13.11 Active 922994612 Problem Vitamin B 12 deficiency E53.8 Active 45006989 Problem Chronic fatigue R53.82 Active 94070216 ALLERGIES No Information ENCOUNTERS Encounter Location Date Diagnosis [facility] [id number] [place] [address] 56878- 2636 18 Feb, 2018 Coronary artery disease involving [place] coronary artery of [place] heart without angina pectoris I25.10 ; Vitamin B 12 deficiency E53.8 ; Slow transit constipation K59.01 ; Generalized anxiety disorder F41.1 and Breast cancer screening by mammogram Z12.31 [facility] [id number] [address] 05 Feb, 2018 Flank pain R10.9 [facility] [id number] [place] [address] 69920- 3940 January, [facility] [address] [address] 7672 January, Chronic obstructive pulmonary disease, unspecified COPD type J44.9 ; Pleural effusion on left J90 ; Pericardial effusion I31.3 and Generalized anxiety disorder F41.1 [facility] [address], [place] [address] 8339 January, Gastroenteritis K52.9 [facility] [address], [place] [address] 0468 January, Flank pain R10.9 [facility] [id number] [place] [address] 32012- 7712 January, [address] [id number] [place] [address] Dec [facility] [address] [address] 9066 Dec, [facility] [address], [place] [address] 7787 Dec, [facility] [address], [place] [address] 9019 Dec, [facility] [address], [place] [address] 6874 Dec, [facility] [address], [place] [address] 7233 Dec, Flank pain R10.9 [facility] [address], [place] [address] 9724 Dec, [facility] [address], [place] [address] 9674 Nov, [facility] [address], [place] [address] 7087 Nov, [facility] [address], [place] [address] 8765 Nov, [facility] [id number] [place] [address] 67222- 6513 Nov, Pericardial effusion I31.3 ; Agoraphobia with panic attacks F40.01 and Vitamin B 12 deficiency E53.8 [facility] [id number] [place] [address] 65124- 9403 Nov, [facility] [id number] [place] [address] 38841- 9267 Nov, Pneumonia of both lungs due to infectious organism, unspecified part of lung J18.9 and Flank pain R10.9 [facility] [id number] [place] [address] 76427- 1132 Nov, Pneumonia of both lungs due to infectious organism, unspecified part of lung J18.9 and Gastroenteritis K52.9 [facility] [id number] [place] [address] 67561- 3176 Oct, Pneumonia of both lungs due to infectious organism, unspecified part of lung J18.9 and Vitamin B 12 deficiency E53.8 [facility] [address] [id number] Oct, [facility] [id number] [place] [address] 35504- 5660 Oct, [facility] [id number] [place] [address] 23684- 7003 Oct, [facility] [id number] [place] [address] 48460- 6395 Oct, Flank pain R10.9 [facility] [id number] [place] [address] 25670- 8264 Oct, Other chronic pain G89.29 and Unspecified abdominal pain R10.9 [facility] [id number] [place] [address] 69092- 3106 Sep, Flank pain R10.9 [facility] [id number] [place] [address] 33682- 7485 Sep, [facility] [id number] [place] [address] 69711- 5730 Sep, [facility] [id number] [place] [address] 35410- 5502 Sep, Acute non-recurrent maxillary sinusitis J01.00 [facility] [id number] [place] [address] 73045- 0200 Sep, Acute non-recurrent maxillary sinusitis J01.00 and Vitamin B 12 deficiency E53.8 [facility] [id number] [place] [address] 37969- 3822 Sep, [facility] [id number] [place] [address] 40882- 2793 Sep, [facility] [id number] [place] [address] 83973- 7847 Sep, [facility] [id number] [place] [address] 77359- 8026 Sep, COPD with exacerbation J44.1 [facility] [id number] [place] [address] 83153- 7623 Sep, Chronic obstructive pulmonary disease, unspecified COPD type J44.9 [facility] [id number] [place] [address] 32793- 4423 Aug, Flank pain R10.9 [facility] [id number] [place] [address] 66977- 1399 Jul, Flank pain R10.9 and Vitamin B 12 deficiency E53.8 [facility] [id number] [place] [address] 24235- 2772 Jul, [facility] [id number] [place] [address] 81705- 5506 Jun, Gastroenteritis K52.9 [facility] [id number] [place] [address] 85508- 0219 18 May, 2017 Gastroenteritis K52.9 and Vitamin B 12 deficiency E53.8 [facility] [id number] [place] [address] 22845- 5385 Apr, Allergic conjunctivitis of left eye H10.12 and Chronic fatigue R53.82 [facility] [address] 6[address]85- 9614 Apr, Chronic sinusitis, unspecified J32.9 [facility] [id number] [place] [address] 79931- 0529 Apr, [facility] [id number] [place] [address] 61955- 1040 Feb, [facility] [id number] [place] [address] 62417- 0155 January, [facility] [id number] [place] [address] 97235- 4579 Dec, [facility] [id number] [place] [address] 76710- 7961 Oct, [facility] [id number] [place] [address] 10529- 7344 Sep, Oral phase dysphagia R13.11 and Vitamin B 12 deficiency E53.8 [facility] [id number] [place] [address] 93829- 0475 Sep, [facility] [id number] [place] [address] 52754- 1865 Jul, [facility] [id number] [place] [address] 71824- 2760 Jul, [facility] [id number] [place] [address] 63643- 0441 Jun, Bronchitis J40 ; Generalized anxiety disorder F41.1 and Chronic obstructive pulmonary disease, unspecified COPD type J44.9 [facility] [id number] [place] [address] 20590- 1736 18 Jun, 2016 [facility] [id number] [place] [address] 49366- 5272 14 Jun, 2016 [facility] [id number] [place] [address] 11825- 9689 13 Jun, 2016 [facility] [id number] [place] [address] 33493- 6235 May, Vitamin B 12 deficiency E53.8 ; Essential (primary) hypertension I10 ; Generalized anxiety disorder F41.1 ; Pain in joint, ankle and foot 719.47 ; Arthritis M19.90 ; Chronic obstructive pulmonary disease, unspecified COPD type J44.9 and Encounter for immunization Z23 [facility] [id number] [place] [address] 51549- 3671 Apr, [facility] [address] 02882- 2881 Apr, [facility] [id number] [place] [address] 48711- 0854 Mar, [facility] [id number] [place] [address] 57631- 5263 January, [facility] [id number] [place] [address] 63551- 8490 Dec, [facility] [id number] [place] [address] 39530- 7457 Oct, [facility] [id number] [place] [address] 59348- 2758 Oct, [facility] [id number] [place] [address] 12602- 2020 Oct, Hypertension, benign I10 and Vitamin B 12 deficiency E53.8 [facility] [id number] [place] [address] 04234- 3394 Oct, [facility] [address] [place] [address]- 7984 Oct, [facility] [id number] [place] [address] 99654- 0097 Oct, Irritable bowel syndrome with diarrhea K58.0 [facility] [id number] [place] [address] 16294- 0687 Oct, [facility] [address] 87866- 8147 Oct, Vitamin B 12 deficiency E53.8 ; Hypertension, benign I10 and Chronic obstructive pulmonary disease, unspecified COPD type J44.9 [facility] [address] 63351- 2257 Sep, Irritable bowel syndrome with diarrhea K58.0 ; Hypertension , benign I10 ; Chronic obstructive pulmonary disease, unspecified COPD type J44.9 ; Edema, unspecified type R60.9 ; Vision changes H53.9 and Vitamin B 12 deficiency E53.8 [facility] [id number] [place] [address] 87004- 0794 Sep, [facility] [address] 76406- 8846 Jul, Degenerative disc disease 722.6 [facility] [id number] [place] [address] 73070- 3420 Jun, Pain in right leg M79.604 ; Encounter for immunization Z23 and Pain of left leg M79.605 [facility] [id number] [place] [address] 55046- 9573 Jun, [facility] [address] 45940- 3424 Jun, [facility] [id number] [place] [address] 22106- 3915 Jun, Degenerative disc disease 722.6 [facility] [id number] [place] [address] 35011- 2794 Jun, [facility] [address] [place] [address] 00844- 4956 28 May, 2015 Seizures 780.39 and Autonomic peripheral neuropathy 337.9 [facility] [id number] [place] [address] 11742- 4613 18 May, 2015 [facility] [id number] [place] [address] 33448- 4644 May, [facility] [id number] [place] [address] 95743- 2015 May, Degenerative disc disease 722.6 [facility] [address] 355079- 1373 May, [facility] [id number] [place] [address] 22393- 7142 Mar, [facility] [address] 07961- 7145 Mar, Degenerative disc disease 722.6 ; Spinal stenosis 724.00 and HTN (hypertension) 401.9 [facility] [id number] [place] [address] 356508- 3460 Feb, Cutaneous horn 702.8 [facility] [id number] [place] [address] 02363- 1909 Feb, Fatigue 780.79 [facility] [id number] [place] [address] 28548- 1344 Feb, Fatigue 780.79 ; Arthritis 716.90 ; Spinal stenosis 724.00 ; Sinusitis 473.9 and Cutaneous horn 702.8 [facility] [id number] [place] [address] 67220- 0504 January, [facility] [id number] [place] [address] 32596- 3249 Dec, [facility] [id number] [place] [address] 55433- 9615 Dec, [facility] [place] [facility] [address] [id number] [place] [address]- 7026 Nov, [facility] [place] [facility] [address] [id number] [place] [address]- 7745 Nov, [facility] [place] [facility] [address] [id number] [place] [address]- 9649 Oct, [facility] [place] [facility] [address] [id number] [place] [address]- 7664 Oct, [facility] [place] [facility] [address] [id number] [place] [address]- 4467 Oct, [facility] [place] [facility] [address] [id number] [place] [address]- 1182 Oct, [facility] [place] [facility] [address] [id number] [place] [address]- 0027 Oct, [facility] [place] [facility] [address] [id number] [place] [address]- 2187 Oct, [facility] [place] [facility] [address] [id number] [place] [address]- 8116 Sep, [facility] [place] [facility] [address] [id number] [place] [address]- 8216 Sep, [facility] [place] [facility] [address] [id number] [place] [address]- 9691 Sep, [facility] [place] [facility] [address] [id number] [place] [address]- 3120 Sep, [facility] [place] [facility] [address] [id number] [place] [address]- 7102 Sep, [facility] [place] [facility] [address] [id number] [place] [address]- 6488 Sep, [facility] [place] [facility] [address] [id number] [place] [address]- 3374 Sep, [facility] [place] [facility] [address] [id number] [place] [address]- 2938 Sep, [facility] [address] [id number] [place] [address]- 0485 Sep, [facility] [place] [facility] [address] [id number] [place] [address]- 3236 Sep, [facility] [address] [id number] [place] [address]- 0784 Sep, [facility] [address] [id number] [place] [address]- 6513 Sep, [facility] [address] [id number] [place] [address]- 8026 Sep, [facility] [address] [id number] [place] [address]- 5929 Sep, [facility] [address] [id number] [place] [address]- 4816 Aug, [facility] [address] [id number] [place] [address]- 8266 Aug, [facility] [address] [id number] [place] [address]- 6899 Aug, [facility] [address] [id number] [place] [address]- 7516 Aug, [facility] [place] [facility] [address] [id number] [place] [address]- 2200 Jul, [facility] [place] [facility] [address] [id number] [place] [address]- 3358 Jul, [facility] [place] [facility] [address] [id number] [place] [address]- 0057 May, [facility] [place] [facility] [address] [id number] [place] [address]- 6238 May, [facility] [place] [facility] [address] [id number] [place] [address]- 7987 May, [facility] [place] [facility] [address] [id number] [place] [address]- 5436 May, [facility] [place] [facility] [address] [id number] [place] [address]- 4998 May, [facility] [place] [facility] [address] [id number] [place] [address]- 3808 May, [facility] [place] [facility] [address] [id number] [place] [address]- 2084 Apr, [facility] [place] [facility] [address] [id number] [place] [address]- 7997 Apr, [facility] [place] [facility] [address] [id number] [place] [address]- 5099 Mar, [facility] [place] [facility] [address] [id number] [place] [address]- 2639 Mar, [facility] [place] [facility] [address] [id number] [place] [address]- 0466 Mar, [facility] [place] [facility] [address] [id number] [place] [address]- 6525 Mar, [facility] [place] [facility] [address] [id number] [place] [address]- 8068 Mar, [facility] [place] [facility] [address] [id number] [place] [address]- 4292 Mar, [facility] [place] [facility] [address] [id number] [place] [address]- 1618 Mar, [facility] [place] [facility] [address] [id number] [place] [address]- 6458 Mar, [facility] [place] [facility] [address] [id number] [place] [address]- 8484 Feb, [facility] [place] [facility] [address] [id number] [place] [address]- 8664 Feb, [facility] [place] [facility] [address] [id number] [place] [address]- 6243 January, [facility] [address] [id number] [place] [address]- 2347 January, [facility] [place] [facility] [address] [id number] [place] [address]- 9743 January, [facility] [place] [facility] [address] [id number] [place] [address]- 0427 January, [facility] [place] [facility] [address] [id number] [place] [address]- 7569 Dec, [facility] [place] [facility] [address] [id number] [place] [address]- 5117 Dec, [facility] [place] [facility] [address] [id number] [place] [address]- 3930 Oct, [facility] [place] [facility] [address] [id number] [place] [address]- 1270 Oct, [facility] [place] [facility] [address] [id number] [place] [address]- 7065 Oct, [facility] [place] [facility] [address] [id number] [place] [address]- 4403 Oct, [facility] [place] [facility] [address] [facility] [id number] [place] [address]- 8003 Sep, [facility] [place] [facility] [address] [id number] [place] [address]- 8961 Sep, [facility] [place] [facility] [address] [id number] [place] [address]- 5817 Aug, [facility] [place] [facility] [address] [id number] [place] [address]- 3897 Aug, [facility] [place] [facility] [address] [id number] [place] [address]- 1452 Aug, [facility] [place] [facility] [address] [id number] [place] [address]- 7564 Aug, [facility] [place] [facility] [address] [id number] [place] [address]- 7196 Aug, [facility] [place] [facility] [address] [id number] [place] [address]- 5437 Aug, [facility] [place] [facility] [address] [id number] [place] [address]- 6246 Aug, [facility] [place] [facility] [address] [id number] [place] 1671 Aug, [facility] [place] [facility] [address] [id number] [place] [address]- 0264 Aug, [facility] [place] [facility] [address] [id number] [place] [address]- 1999 Aug, [facility] [place] [facility] [address] [id number] [place] [address]- 5345 Jul, [facility] [place] [facility] [address] [id number] [place] [address]- 5821 Jul, [facility] [place] [facility] [address] [id number] [place] [address]- 7441 Jun, [facility] [place] [facility] [address] [id number] [place] [address]- 2892 Jun, [facility] [place] [facility] [address] [id number] [place] [address] Jun, [facility] [place] [facility] [address] [id number] [place] [address] Jun, [facility] [place] [facility] [address] [id number] [place] [address] Jun, [facility] [place] [facility] [address] [id number] [place] [address] May, [facility] [place] [facility] [address] [id number] [place] [address] May, [facility] [place] [facility] [address] [id number] [place] [address] 12 May, 2013 [facility] [place] [facility] [address] [id number] [place] [address] 06 May, 2013 [facility] [place] [facility] [address] [id number] [place] [address] May, [facility] [place] [facility] [address] [id number] [place] [address] Apr, [facility] [place] [facility] [address] [id number] [place] [address] Mar, [facility] [place] [facility] [address] [id number] [place] [address] Mar, [facility] [place] [facility] [address] [id number] [place] [address]- [address] Mar, [facility] [place] [facility] [address] [id number] [place] [address] Mar, [facility] [place] [facility] [address] [id number] [place] [address] Mar, [facility] [place] [facility] [address] [id number] [place] [address] Mar, [facility] [place] [facility] [address] [id number] [place] [address] Mar, [facility] [place] [facility] [address] [id number] [place] [address] Mar, [facility] [place] [facility] [address] [id number] [place] [address]- [address] Mar, [facility] [place] [facility] [address] [id number] [place] [address]- [address] Feb, [facility] [place] [facility] [address] [id number] [place] [address] Feb, [facility] [place] [facility] [address] [id number] [place] [address] Feb, [facility] [place] [facility] [address] [id number] [place] [address] January, [facility] [address] [id number] [place] [address] January, [facility] [address] [id number] [place] [address]- [address] January, [facility] [address] [id number] [place] [address] January, [facility] [address] [id number] [place] [address] Dec, [facility] [address] [id number] [place] [address] Dec, [facility] [address] [id number] [place] [address]- [address] Dec, [facility] [address] [id number] [place] [address] Dec, [facility] [address] [id number] [place] [address] Dec, [facility] [address] [id number] [place] [address]- [address] Dec, [facility] [address] [id number] [place] [address] Nov, [facility] [address] [id number] [place] [address] Oct, [facility] [address] [id number] [place] [address] Aug, [facility] [address] [id number] [place] [address] Aug, [facility] [address] [id number] [place] [address] Aug, [facility] [address] [id number] [place] [address] Aug, [facility] [place] [facility] [address] [id number] [place] [address] Aug, [facility] [place] [facility] [address] [id number] [place] [address] Aug, [facility] [place] [facility] [address] [id number] [place] [address]- [address] Aug, [facility] [place] [facility] [address] [id number] [place] [address] Aug, [facility] [place] [facility] [address] [id number] [place] [address]- [address] Aug, [facility] [place] [facility] [address] [id number] [place] [address]- [address] Aug, [facility] [place] [facility] [address] [id number] [place] [address]- [address] Aug, [facility] [facility] [address] [id number], [place] [address] Jul, [facility] [place] [facility] [address] [id number] [place] [address] Jul, [facility] [place] [facility] [address] [facility] [id number], [place] [address] Jul, [facility] [place] [facility] [address] [id number], [place] [address] Jul, [facility] [place] [facility] [address] [id number], [place] [address] Jul, [facility] [facility] [address] [id number][id number] [address] Jul, [facility] [place] [facility] [address] [id number], [place] [address] Jun, [facility] [facility] [address] [id number], [place] [address] Jun, [facility] [address] [id number], [place] [address] May, [facility] [address] [id number] [place] [address] Apr, [facility] [place] [facility] [address] [id number] [place] [address] Apr, [facility] [place] [facility] [address] [id number] [place] [address] Apr, [facility] [place] [facility] [address] [id number] [place] [address] Apr, [facility] [address] [id number] [place] [address] Apr, [facility] [facility] [address] [id number] [place] [address] Mar, [facility] [address] [id number] [place] [address] Mar, [facility] [address] [id number] [place] [address] January, [facility] [address] [id number] [place] [address] January, [facility] [address] [id number] [place] [address] Nov, [facility] [facility] [address] [id number] [place] [address] Oct, [facility] [facility] [address] [id number] [place] [address] Sep, [facility] [facility] [address] [id number] [place] [address] Sep, [facility] [facility] [address] [id number] [place] [address] Sep, [facility] [address] [id number] [place] [address] Sep, [facility] [address] [id number] [place] [address] Sep, [facility] [address] [id number] [place] [address] Sep, [facility] [facility] [address] [id number] [place] [address] Aug, [facility] [address] [id number] [place] [address] Aug, [facility] [address] [id number] [place] [address] Aug, [facility] [address] [id number] [place] [address] Aug, [facility] [address] [id number] [place] [address] Aug, [facility] [facility] [address] [id number] [place] [address] Jul, [facility] [address] [id number] [place] [address] Jul, [facility] [address] [id number] [place] [address] Jul, [facility] [address] [id number] [place] [address] Jun, [facility] [address] [id number] [place] [address] Jun, [facility] [address] [id number] [place] [address] Jun, [facility] [address] [id number] [place] [address] January, [facility] [address] [id number] [place] [address] Dec, [facility] [facility] [address] [id number] [place] [address] Oct, 2010 [facility] [address] [facility] [id number], [place] [address] 16 Oct, 2010 [facility] [address] [id number], [place] [address] Jun, [facility] [address] [id number], [place] [address] Aug, [facility] [address] [id number], [place] [address] Aug, [facility] [address] [facility] [id number], [place] [address] Jul, [facility] [address] [id number] [address] Mar, IMMUNIZATIONS No Known Immunizations SOCIAL HISTORY Never Assessed REASON FOR VISIT Requests return call PLAN OF CARE VITAL SIGNS MEDICATIONS No Known Medications RESULTS No Results PROCEDURES No Known procedures INSTRUCTIONS MEDICATIONS ADMINISTERED No Known Medications MEDICAL (GENERAL) HISTORY Type Description Date Medical History Hypertension Medical History Chronic Obstructive pulmonary disease diagnosed 2008 in [place]-PFT not done previously Medical History Gastrointestinal disorder [...]
--- OUTSIDE RECORDS SUMMARY | 2018-03-28 12:20 | XMS REPORT ---
Author Author BRETT JOHNSON Organization [facility] Address [address] [place] [address] Care Team Providers Care Inserting Operator Name Role Phone BRETT JOHNSON Unavailable PROBLEMS Type Condition ICD9-CM Code EBF94-AN Code Onset Dates Condition Status SNOMED Code Problem Oral phase dysphagia R13.11 Active 356668323 Problem Chronic sinusitis, unspecified J32.9 Active 71819304 Problem Chronic fatigue R53.82 Active 85232006 Problem Hypertension, benign I10 Active 96340586 Problem Vitamin B 12 deficiency E53.8 Active 40824533 Problem Generalized anxiety disorder F41.1 Active 37570044 Problem Chronic obstructive pulmonary disease, unspecified COPD type J44.9 Active 74267496 Problem Pericardial effusion I31.3 Active 312438640 Problem Pleural effusion on left J90 Active 73045154 Problem Other chronic pain G89.29 Active 91334422 Problem Gastroesophageal reflux disease without esophagitis K21.9 Active 312446715 Problem Agoraphobia with panic attacks F40.01 Active 541192721 Problem COPD with exacerbation J44.1 Active 087549427 ALLERGIES No Information ENCOUNTERS Encounter Location Date Diagnosis [place] [id number] [address] Feb, [place] [address] [place] [id number] [place] [address] 90482- 0155 Feb, Flank pain R10.9 [place] [address] [address] 7[address] January, [place] [address] [address] [id number] [place] [address] 42241- 1499 January, Chronic obstructive pulmonary disease, unspecified COPD type J44.9 ; Pleural effusion on left J90 ; Pericardial effusion I31.3 and Generalized anxiety disorder F41.1 [place] [address] [address] 10 Jan, 2018 Gastroenteritis K52.9 [facility] [id number] [place] [address] 70969- 6892 January, Flank pain R10.9 [facility] [address] [address] January, [facility] [id number] [id number] [place] [address] Dec [facility] [address] [address] 7378 Dec, [facility] [id number] [place] [address] 83392- 9741 Dec, [facility] [address] [address] 4154 Dec, [facility] [id number] [place] [address] 28261- 0519 Dec, [facility] [address] [address] 2120 Dec, Flank pain R10.9 [facility] [address] [address] 0766 Dec, [facility] [address] [address] 3364 Nov, [facility] [address] [address] 1412 Nov, [facility] [address] [address] 6265 Nov, [facility] [id number] [place] [address] 36151- 0990 14 Nov, 2017 Pericardial effusion I31.3 ; Agoraphobia with panic attacks F40.01 and Vitamin B 12 deficiency E53.8 [facility] [address] [address] 99[address] Nov, [facility] [id number] [place] [address] 98419- 5217 Nov, Pneumonia of both lungs due to infectious organism, unspecified part of lung J18.9 and Flank pain R10.9 [facility] [id number] [place] [address] 44401- 7178 Nov, Pneumonia of both lungs due to infectious organism, unspecified part of lung J18.9 and Gastroenteritis K52.9 [facility] [id number] [place] [address] 80745- 1894 Oct, Pneumonia of both lungs due to infectious organism, unspecified part of lung J18.9 and Vitamin B 12 deficiency E53.8 [facility] [id number] [place] [address] [id number] Oct, [facility] [id number] [place] [address] 85985- 6244 Oct, [facility] [id number] [place] [address] 39342- 5222 Oct, [facility] [id number] [place] [address] 80944- 9190 Oct, Flank pain R10.9 [facility] [id number] [place] [address] 19570- 5666 Oct, Other chronic pain G89.29 and Unspecified abdominal pain R10.9 [facility] [id number] [place] [address] 29325- 9320 Sep, Flank pain R10.9 [facility] [id number] [place] [address] 56904- 9017 Sep, [facility] [id number] [place] [address] 53858- 6055 Sep, [facility] [id number] [place] [address] 54341- 9082 Sep, Acute non-recurrent maxillary sinusitis J01.00 [facility] [id number] [place] [address] 00383- 8632 Sep, Acute non-recurrent maxillary sinusitis J01.00 and Vitamin B 12 deficiency E53.8 [facility] [id number] [place] [address] 52560- 1217 Sep, [facility] [address] 05587- 2784 Sep, [facility] [address] [place] [id number] [place] [address] 36549- 9726 Sep, [facility] [address] 29593- 4404 Sep, COPD with exacerbation J44.1 [place] [address] [id number] [place] [address] 50196- 8548 Sep, Chronic obstructive pulmonary disease, unspecified COPD type J44.9 [facility] [id number] [place] [address] 96320- 5101 Aug, Flank pain R10.9 [place] [address] [id number] [place] [address] 16958- 2133 Jul, Flank pain R10.9 and Vitamin B 12 deficiency E53.8 [place] [address] [id number] [place] [address] 85628- 6559 Jul, [facility] [address] [id number] [place] [address] 13725- 1344 Jun, Gastroenteritis K52.9 [place] [address] [address] [id number] [place] [address] 98662- 4690 May, Gastroenteritis K52.9 and Vitamin B 12 deficiency E53.8 [place] [address] [id number] [place] [address] 78047- 3928 Apr, Allergic conjunctivitis of left eye H10.12 and Chronic fatigue R53.82 [place] [address] [place] [id number] [place] [address] 09044- 9932 Apr, Chronic sinusitis, unspecified J32.9 [facility] [id number] [place] [address] 03069- 9031 Apr, [facility] [id number] [place] [address] 28216- 8972 Feb, [facility] [id number] [place] [address] 53680- 6564 January, [facility] [id number] [place] [address] 60424- 4735 Dec, [facility] [id number] [place] [address] 24562- 3135 Oct, [facility] [id number] [place] [address] 87910- 6919 Sep, Oral phase dysphagia R13.11 and Vitamin B 12 deficiency E53.8 [facility] [address] [id number] [place] [address] 30460- 6120 Sep, [facility] [id number] [place] [address] 84186- 7164 Jul, [facility] [id number] [place] [address] 99332- 7950 Jul, [facility] [id number] [place] [address] 76611- 0433 Jun, Bronchitis J40 ; Generalized anxiety disorder F41.1 and Chronic obstructive pulmonary disease, unspecified COPD type J44.9 [facility] [id number] [place] [address] 64127- 3265 Jun, [facility] [address] [id number] [place] [address] 71858- 6934 Jun, [facility] [address] [id number] [place] [address] 75440- 8837 Jun, [facility] [address] [id number] [place] [address] 40444- 6553 May, Vitamin B 12 deficiency E53.8 ; Essential (primary) hypertension I10 ; Generalized anxiety disorder F41.1 ; Pain in joint, ankle and foot 719.47 ; Arthritis M19.90 ; Chronic obstructive pulmonary disease, unspecified COPD type J44.9 and Encounter for immunization Z23 [place] [address] 23702- 5285 Apr, [facility] [address] 65245- 4981 Apr, [place] [address] 66124- 2728 Mar, [place] [address] 43189- 8255 January, [place] [address] 11650- 3199 Dec, [facility] [address] [place] [id number] [place] [address] 13386- 5217 Oct, [place] [address] 07981- 7223 Oct, [place] [address] [place] [id number] [place] [address] 13174- 4431 Oct, Hypertension, benign I10 and Vitamin B 12 deficiency E53.8 [facility] [address] [place] [id number] [place] [address] 95589- 5692 Oct, [place] [address] [place] [id number] [place] [address] 96716- 8275 Oct, [facility] [address] [place] [id number] [place] [address] 16588- 9180 Oct, Irritable bowel syndrome with diarrhea K58.0 [place] [address] 31171- 0463 Oct, [place] [address] [place] [id number] [place] [address] 84948- 6650 Oct, Vitamin B 12 deficiency E53.8 ; Hypertension, benign I10 and Chronic obstructive pulmonary disease, unspecified COPD type J44.9 [place] [address] [place] [id number] [place] [address] 70876- 9606 Sep, Irritable bowel syndrome with diarrhea K58.0 ; Hypertension , benign I10 ; Chronic obstructive pulmonary disease, unspecified COPD type J44.9 ; Edema, unspecified type R60.9 ; Vision changes H53.9 and Vitamin B 12 deficiency E53.8 [place] [address] 48076- 8916 Sep, [place] [address] [place] [id number] [place] [address] 65434- 1287 Jul, Degenerative disc disease 722.6 [place] [address] 16007- 2911 Jun, Pain in right leg M79.604 ; Encounter for immunization Z23 and Pain of left leg M79.605 [place] [address] [place] [id number] [place] [address] 53984- 0769 Jun, [place] [address] [place] [id number] [place] [address] 04923- 8428 Jun, [place] [address] [place] [id number] [place] [address] 22100- 2934 Jun, Degenerative disc disease 722.6 [place] [address] [place] [id number] [place] [address] 25852- 2394 Jun, [place] [address] 01123- 8013 May, Seizures 780.39 and Autonomic peripheral neuropathy 337.9 [place] [address] [place] [id number] [place] [address] 03233- 5082 May, [place] [address] [place] [id number] [place] [address] 50940- 1352 May, [facility] [id number] [place] [address] 882182- 5807 May, Degenerative disc disease 722.6 [facility] [id number] [place] [address] 41557- 9196 May, [facility] [address] 09785- 8863 Mar, [facility] [address] [place] [id number] [place] [address] 80252- 4921 Mar, Degenerative disc disease 722.6 ; Spinal stenosis 724.00 and HTN (hypertension) 401.9 [facility] [address] [place] [id number] [place] [address] 29357- 6713 Feb, Cutaneous horn 702.8 [facility] [address] [id number] [place] [address] 10609- 7465 Feb, Fatigue 780.79 [facility] [address] [place] [id number] [place] [address] 26357- 3654 Feb, Fatigue 780.79 ; Arthritis 716.90 ; Spinal stenosis 724.00 ; Sinusitis 473.9 and Cutaneous horn 702.8 [facility] [id number] [place] [address] 57830- 7315 January, [facility] [id number] [place] [address] 22421- 0539 Dec, [facility] [id number] [place] [address] 55600- 8487 Dec, [facility] [id number] [place] [address] 95562- 2066 Nov, [facility] [id number] [place] [address] 18223- 2006 Nov, [facility] [id number] [place] [address] 03299- 1980 Oct, [facility] [place] [facility] [address] [id number] [place] [address]- 7295 Oct, [facility] [place] [facility] [address] [id number] [place] [address]- 7123 Oct, [facility] [place] [facility] [address] [id number] [place] [address]- 5327 Oct, [facility] [place] [facility] [address] [id number] [place] [address]- 3294 Oct, [facility] [place] [facility] [address] [id number] [place] [address]- 3327 Oct, [facility] [place] [facility] [address] [id number] [place] [address]- 4459 Sep, [facility] [address] [id number] [place] [address]- 1080 Sep, [facility] [place] [facility] [address] [id number] [place] [address]- 4442 Sep, [facility] [place] [facility] [address] [id number] [place] [address]- 3437 Sep, [facility] [place] [facility] [address] [id number] [place] [address]- 9144 Sep, [facility] [place] [facility] [address] [id number] [place] [address]- 0392 Sep, [facility] [place] [facility] [address] [id number] [address]- 6852 Sep, [facility] [place] [facility] [address] [id number] [place] [address]- 0131 Sep, [facility] [place] [facility] [address] [id number] [place] [address]- 6399 Sep, [facility] [place] [facility] [address] [id number] [place] [address]- 0700 Sep, [facility] [place] [facility] [address] [id number] [place] [address]- 5597 16 Sep, 2014 [facility] [place] [facility] [address] [id number] [place] [address]- 5351 Sep, [facility] [place] [facility] [address] [id number] [place] [address]- 6041 Sep, [facility] [place] [facility] [address] [id number] [place] [address]- 9502 Sep, [facility] [place] [facility] [address] [id number] [place] [address]- 4415 Aug, [facility] [place] [facility] [address] [id number] [place] [address]- 3643 Aug, [facility] [place] [facility] [address] [id number] [place] [address]- 7009 Aug, [facility] [place] [facility] [address] [id number] [place] [address]- 4404 Aug, [facility] [place] [facility] [address] [id number] [place] [address]- 8901 Jul, [facility] [place] [facility] [address] [id number] [place] [address]- 3003 Jul, [facility] [place] [facility] [address] [id number] [place] [address]- 1623 23 May, 2014 [facility] [place] [facility] [address] [id number] [place] [address]- 0700 23 May, 2014 [facility] [place] [facility] [address] [id number] [place] [address]- 5278 23 May, 2014 [facility] [place] [facility] [address] [id number] [place] [address] 254 23 May, 2013 [facility] [place] [facility] [address] [id number] [place] [address]- 7260 08 May, 2014 [facility] [place] [facility] [address] [id number] [place] [address]- 6705 May, [facility] [place] [facility] [address] [id number] [place] [address]- 6652 Apr, [facility] [place] [facility] [address] [id number] [place] [address]- 1020 Apr, [facility] [place] [facility] [address] [id number] [place] [address]- 1608 Mar, [facility] [place] [facility] [address] [id number] [place] [address]- 7651 Mar, [facility] [place] [facility] [address] [id number] [place] [address]- 8375 Mar, [facility] [place] [facility] [address] [id number] [place] [address]- 3630 Mar, [facility] [place] [facility] [address] [id number] [place] [address]- 1878 Mar, [facility] [place] [facility] [address] [id number] [place] [address]- 5818 Mar, [facility] [place] [facility] [address] [id number] [place] [address]- 1399 Mar, [facility] [place] [facility] [address] [id number] [place] [address]- 3892 Mar, [facility] [place] [facility] [address] [id number] [place] [address]- 5752 Feb, [facility] [place] [facility] [address] [id number] [place] [address]- 2547 Feb, [facility] [place] [facility] [address] [id number] [place] [address]- 3247 January, [facility] [place] [facility] [address] [id number] [place] [address]- 5520 January, [facility] [place] [facility] [address] [id number] [place] [address]- 6213 January, [facility] [place] [facility] [address] [id number] [place] [address]- 9151 January, [facility] [address] [id number] [place] [address]- 6166 Dec, [facility] [place] [facility] [address] [id number] [place] [address]- 5456 Dec, [facility] [place] [facility] [address] [id number] [place] [address]- 4386 Oct, [facility] [place] [facility] [address] [id number] [place] [address]- 8069 Oct, [facility] [place] [facility] [address] [id number] [place] [address]- 6545 Oct, [facility] [place] [facility] [address] [id number] [place] [address]- 6706 Oct, [facility] [place] [facility] [address] [id number] [place] [address]- 2709 Sep, [facility] [address] [id number] [place] [address]- 7455 Sep, [facility] [place] [facility] [address] [id number] [place] [address]- 9198 Aug, [facility] [address] [id number] [place] [address]- 5670 Aug, [facility] [place] [facility] [address] [id number] [place] [address] 2546 Aug, [facility] [place] [facility] [address] [id number] [place] [address]- 254 Aug, [facility] [place] [facility] [address] [id number] [place] 8576 Aug, [facility] [place] [facility] [address] [id number] [place] [address]- 2546 Aug, [facility] [place] [facility] [address] [id number] [place]- 8780 Aug, [facility] [place] [facility] [address] [id number] [place] [address]- 7817 Aug, [facility] [place] [facility] [address] [id number] [place] [address]- 0054 Aug, [facility] [place] [facility] [address] [id number] [place] [address]- 1405 Aug, [facility] [place] [facility] [address] [id number] [place] [address]- 4513 Jul, [facility] [place] [facility] [address] [id number] [place] 8010 Jul, [facility] [place] [facility] [address] [id number] [place] [address]- 5447 Jun, [facility] [place] [facility] [address] [id number] [place] [address]- 8703 Jun, [facility] [place] [facility] [address] [id number] [place] [address]- 3824 Jun, [facility] [place] [facility] [address] [id number] [place] [address]- 6374 Jun, [facility] [place] [facility] [address] [id number] [place] [address]- 6324 Jun, [facility] [place] [facility] [address] [id number] [place] [address]- 0052 13 May, 2012 [facility] [place] [facility] [address] [id number] [place] [address]- 8968 13 May, 2012 [facility] [place] [facility] [address] [id number] [place] [address]- 8820 12 May, 2013 [facility] [place] [facility] [address] [id number] [place] [address]- 6020 06 Sep, 2012 [facility] [place] [facility] [address] [id number] [place] [address]- 2572 03 Sep, 2012 [facility] [place] [facility] [address] [id number] [place] [address]- 6754 Apr, [facility] [address] [id number] [place] [address]- 0739 Mar, [facility] [address] [id number] [place] [address]- 3491 Mar, [facility] [address] [id number] [place] [address]- 1672 Mar, [facility] [address] [id number] [place] [address]- 4142 Mar, [facility] [address] [id number] [place] [address]- 0632 Mar, [facility] [address] [id number] [place] [address] Mar, [facility] [address] [id number] [place] [address] Mar, [facility] [address] [id number] [place] [address] Mar, [facility] [address] [id number] [place] [address] Mar, [facility] [address] [id number] [place] [address] Feb, [facility] [address] [id number] [place] [address] Feb, [facility] [place] [facility] [address] [id number] [place] [address] Feb, [facility] [place] [facility] [address] [id number] [place] [address] January, [facility] [place] [facility] [address] [id number] [place] [address] January, [facility] [address] [id number] [place] [address] January, [facility] [address] [id number] [place] [address] January, [facility] [address] [id number] [place] [address] 18 Dec, 2012 [facility] [place] [facility] [address] [id number] [place] [address] Dec, [facility] [address] [id number] [place] [address] Dec, [facility] [address] [id number] [place] [address] Dec, [facility] [address] [id number] [place] [address] Dec, [facility] [address] [id number] [place] [address] Dec, [facility] [address] [id number] [place] [address] Nov, [facility] [address] [id number] [place] [address] Oct, [facility] [address] [id number] [place] [address] Aug, [facility] [address] [id number] [place] [address] Aug, [facility] [address] [id number] [place] [address] Aug, [facility] [place] [facility] [address] [id number] [place] [address] Aug, [facility] [place] [facility] [address] [id number] [place] [address] Aug, [facility] [place] [facility] [address] [id number] [place] [address] Aug, [facility] [place] [facility] [address] [id number] [place] [address] Aug, [facility] [place] [facility] [address] [id number] [place] [address] Aug, [facility] [place] [facility] [address] [id number] [place] [address] Aug, [facility] [place] [facility] [address] [facility] [id number] [place] [address] Aug, [facility] [place] [facility] [address] [id number] [place] [address] Aug, [facility] [place] [facility] [address] [id number] [place] [address] Jul, [facility] [place] [facility] [address] [id number] [place] [address] Jul, [facility] [place] [facility] [address] [id number] [place] [address] Jul, [facility] [place] [facility] [address] [id number] [place] [address] Jul, [facility] [place] [facility] [address] [id number] [place] [address] Jul, [facility] [place] [facility] [address] [id number] [place] [address] Jul, [facility] [place] [facility] [address] [id number] [place] [address] Jun, [facility] [place] [facility] [address] [id number] [place] [address] Jun, [facility] [place] [facility] [address] [id number] [place] [address] May, [facility] [place] [facility] [address] [id number] [place] [address] Apr, [facility] [place] [facility] [address] [id number] [place] [address] Apr, [facility] [place] [facility] [address] [id number] [place] [address] Apr, [facility] [address] [id number] [place] [address] Apr, [facility] [address] [id number] [place] [address] Apr, [facility] [address] [id number] [place] [address] Mar, [facility] [address] [id number] [place] [address] Mar, [facility] [address] [id number] [place] [address] January, [facility] [address] [id number] [place] [address] January, [facility] [address] [id number] [place] [address] Nov, [facility] [address] [id number] [place] [address] Oct, [facility] [address] [id number] [place] [address] Sep, [facility] [address] [id number] [place] [address] Sep, [facility] [address] [id number] [place] [address] Sep, [facility] [address] [id number] [place] [address] Sep, [facility] [place] [facility] [address] [id number] [place] [address] Sep, [facility] [address] [id number] [place] [address] Sep, [facility] [address] [id number] [place] [address] Aug, [facility] [place] [facility] [address] [id number] [place] [address] 14 Aug, 2011 [facility] [place] [facility] [address] [id number] [place] [address] Aug, [facility] [place] [facility] [address] [id number] [place] [address] Aug, [facility] [place] [facility] [address] [id number] [place] [address] Aug, [facility] [place] [facility] [address] [id number] [place] [address] Jul, [facility] [place] [facility] [address] [id number] [place] [address] Jul, [facility] [place] [facility] [address] [id number] [place] [address] Jul, [facility] [place] [facility] [address] [id number] [place] [address] Jun, [facility] [place] [facility] [address] [id number] [place] [address] Jun, [facility] [place] [facility] [address] [id number] [place] [address] Jun, [facility] [place] [facility] [address] [id number] [place] [address] January, [facility] [place] [facility] [address] [id number] [place] [address] Dec, [facility] [place] [facility] [address] [id number] [place] [address] Oct, [facility] [place] [facility] [address] [id number] [place] [address] Oct, [facility] [place] [facility] [address] [id number] [place] [address] Jun, [facility] [place] [facility] [address] [id number] [place] [address] 14 Aug, 2009 [facility] [address] [facility] [id number] [place] [address] Aug, [facility] [address] [facility] [id number] [place] [address] Jul, [facility] [address] [facility] [id number] [place] [address] Mar, IMMUNIZATIONS No Known Immunizations SOCIAL HISTORY Never Assessed REASON FOR VISIT Refill request PLAN OF CARE VITAL SIGNS MEDICATIONS Unknown Medications RESULTS No Results PROCEDURES No Known procedures INSTRUCTIONS MEDICATIONS ADMINISTERED No Known Medications MEDICAL (GENERAL) HISTORY Type Description Date Medical History Hypertension Medical History Chronic Obstructive pulmonary disease diagnosed 2008 in [place]-PFT not done previously Medical History Gastrointestinal disorder [...]
--- OUTSIDE RECORDS SUMMARY | 2018-03-28 12:21 | XMS REPORT ---
Author Author BRETT JOHNSON Organization [facility] [place] Address [address] [place] [address] Care Team Providers Care Route Aide Name Role Phone ELIZABETH BRETT Unavailable PROBLEMS Type Condition ICD9-CM Code IMN42-SQ Code Onset Dates Condition Status SNOMED Code Problem Chronic sinusitis, unspecified J32.9 Active 46739033 Problem Other chronic pain G89.29 Active 87903623 Problem Gastroesophageal reflux disease without esophagitis K21.9 Active 478544614 Problem Slow transit constipation K59.01 Active 45498196 Problem Coronary artery disease involving asa'carsarmiut coronary artery of asa'carsarmiut heart without angina pectoris I25.10 Active 5141402683349 Problem Agoraphobia with panic attacks F40.01 Active 765029476 Problem COPD with exacerbation J44.1 Active 269302422 Problem Pericardial effusion I31.3 Active 757470014 Problem Pleural effusion on left J90 Active 72593098 Problem Generalized anxiety disorder F41.1 Active 38224192 Problem Chronic obstructive pulmonary disease, unspecified COPD type J44.9 Active 17289831 Problem Hypertension, benign I10 Active 50405323 Problem Oral phase dysphagia R13.11 Active 242684556 Problem Vitamin B 12 deficiency E53.8 Active 55471609 Problem Chronic fatigue R53.82 Active 57538321 ALLERGIES No Information ENCOUNTERS Encounter Location Date Diagnosis [facility] [place] [id number] [place] [address] 73487- 0166 18 Feb, 2018 Coronary artery disease involving asa'cars[place] coronary artery of asa'carsarmi[place] heart without angina pectoris I25.10 ; Vitamin B 12 deficiency E53.8 ; Slow transit constipation K59.01 ; Generalized anxiety disorder F41.1 and Breast cancer screening by mammogram Z12.31 [facility] [place] [id number] [address] 05 Feb, 2018 Flank pain R10.9 [facility] [place] [id number] [place] [address] 61888- 0169 January, [facility] [place] [address] [address] January, Chronic obstructive pulmonary disease, unspecified COPD type J44.9 ; Pleural effusion on left J90 ; Pericardial effusion I31.3 and Generalized anxiety disorder F41.1 [facility] [place] [address] [address] January, Gastroenteritis K52.9 [facility] [place] [address] [address] January, Flank pain R10.9 [facility] [place] [id number] [place] [address] 03308- 4839 January, [address] [id number] [place] [address] Dec [facility] [place] [address] [address] 5[address] Dec, [facility] [place] [address] [address] Dec, [facility] [place] [address] [address] Dec, [facility] [place] [address] [address] 65[address] Dec, [facility] [place] [address] [address] 76[address] Dec, Flank pain R10.9 [facility] [place] [address] [address] 66[address] Dec, [facility] [place] [address] [address] 2754 Nov, [facility] [place] [address] [address] 37[address] Nov, [facility] [place] [address] [address] 7[address] Nov, [facility] [place] [id number] [place] [address] 47715- 4143 Nov, Pericardial effusion I31.3 ; Agoraphobia with panic attacks F40.01 and Vitamin B 12 deficiency E53.8 [facility] [place] [id number] [place] [address] 56406- 8953 Nov, [facility] [place] [id number] [place] [address] 65693- 5770 Nov, Pneumonia of both lungs due to infectious organism, unspecified part of lung J18.9 and Flank pain R10.9 [facility] [id number] [place] [address] 86680- 6909 Nov, Pneumonia of both lungs due to infectious organism, unspecified part of lung J18.9 and Gastroenteritis K52.9 [facility] [place] [id number] [place] [address] 58771- 7630 Oct, Pneumonia of both lungs due to infectious organism, unspecified part of lung J18.9 and Vitamin B 12 deficiency E53.8 [facility] [address] [id number] Oct, [facility] [place] [address] [place] [address] 89078- 8377 Oct, [facility] [place] [id number] [place] [address] 88375- 9413 Oct, [facility] [place] [id number] [place] [address] 69158- 1001 Oct, Flank pain R10.9 [facility] [place] [id number] [place] [address] 51995- 0272 Oct, Other chronic pain G89.29 and Unspecified abdominal pain R10.9 [facility] [place] [id number] [place] [address] 13731- 6915 Sep, Flank pain R10.9 [facility] [place] [address] [place] [address] 30660- 9641 Sep, [facility] [place] [id number] [place] [address] 48393- 2323 Sep, [facility] [place] [id number] [place] [address] 83244- 6754 Sep, Acute non-recurrent maxillary sinusitis J01.00 [facility] [place] [id number] [place] [address] 20382- 4668 Sep, Acute non-recurrent maxillary sinusitis J01.00 and Vitamin B 12 deficiency E53.8 [facility] [place] [id number] [place] [address] 88749- 8149 Sep, [facility] [place] [id number] [place] [address] 36468- 3591 Sep, [facility] [place] [id number] [place] [address] 78095- 6877 Sep, [facility] [place] [id number] [place] [address] 76807- 8069 Sep, COPD with exacerbation J44.1 [facility] [place] [id number] [place] [address] 96424- 8292 Sep, Chronic obstructive pulmonary disease, unspecified COPD type J44.9 [facility] [place] [id number] [place] [address] 92765- 4657 Aug, Flank pain R10.9 [facility] [place] [id number] [place] [address] 49157- 6433 Jul, Flank pain R10.9 and Vitamin B 12 deficiency E53.8 [facility] [place] [id number] [place] [address] 14216- 0753 Jul, [facility] [place] [id number] [place] [address] 20744- 9891 Jun, Gastroenteritis K52.9 [facility] [place] [id number] [place] [address] 86681- 1675 18 May, 2017 Gastroenteritis K52.9 and Vitamin B 12 deficiency E53.8 [facility] [place] [id number] [place] [address] 02953- 8959 Apr, Allergic conjunctivitis of left eye H10.12 and Chronic fatigue R53.82 [place] [address] [address]- 5789 Apr, Chronic sinusitis, unspecified J32.9 [facility] [place] [id number] [place] [address] 71243- 7002 Apr, [facility] [id number] [place] [address] 70703- 2326 Feb, [facility] [id number] [place] [address] 23789- 8339 January, [facility] [id number] [place] [address] 58164- 4882 Dec, [facility] [place] [id number] [place] [address] 58672- 0178 Oct, [facility] [id number] [place] [address] 23212- 6818 Sep, Oral phase dysphagia R13.11 and Vitamin B 12 deficiency E53.8 [facility] [id number] [place] [address] 32879- 3785 Sep, [facility] [place] [id number] [place] [address] 05392- 0425 Jul, [facility] [id number] [place] [address] 74617- 0183 Jul, [facility] [id number] [place] [address] 89285- 1961 Jun, Bronchitis J40 ; Generalized anxiety disorder F41.1 and Chronic obstructive pulmonary disease, unspecified COPD type J44.9 [facility] [id number] [place] [address] 13788- 1046 18 Jun, 2016 [facility] [place] [id number] [place] [address] 31620- 4407 14 Jun, 2016 [facility] [place] [id number] [place] [address] 52451- 1546 13 Jun, 2016 [facility] [place] [id number] [place] [address] 73631- 5226 May, Vitamin B 12 deficiency E53.8 ; Essential (primary) hypertension I10 ; Generalized anxiety disorder F41.1 ; Pain in joint, ankle and foot 719.47 ; Arthritis M19.90 ; Chronic obstructive pulmonary disease, unspecified COPD type J44.9 and Encounter for immunization Z23 [facility] [place] [id number] [place] [address] 62788- 0283 Apr, [facility] [place] [address] 74862- 8841 Apr, [facility] [place] [id number] [place] [address] 24833- 4554 Mar, [facility] [place] [id number] [place] [address] 31152- 1609 January, [facility] [place] [id number] [place] [address] 86910- 6806 Dec, [facility] [place] [id number] [place] [address] 30047- 5148 Oct, [facility] [place] [id number] [place] [address] 64604- 2814 Oct, [facility] [place] [id number] [place] [address] 43960- 8867 Oct, Hypertension, benign I10 and Vitamin B 12 deficiency E53.8 [facility] [place] [id number] [place] [address] 91872- 9000 Oct, [facility] [place] [address] [place] [address]- 6100 Oct, [facility] [id number] [place] [address] 28803- 1558 Oct, Irritable bowel syndrome with diarrhea K58.0 [facility] [id number] [place] [address] 81215- 8853 Oct, [address] [address] 40773- 3968 Oct, Vitamin B 12 deficiency E53.8 ; Hypertension, benign I10 and Chronic obstructive pulmonary disease, unspecified COPD type J44.9 [address] [address] 79304- 2353 Sep, Irritable bowel syndrome with diarrhea K58.0 ; Hypertension , benign I10 ; Chronic obstructive pulmonary disease, unspecified COPD type J44.9 ; Edema, unspecified type R60.9 ; Vision changes H53.9 and Vitamin B 12 deficiency E53.8 [facility] [id number] [place] [address] 30255- 9717 Sep, [place] [address] 25930- 7223 Jul, Degenerative disc disease 722.6 [facility] [id number] [place] [address] 75942- 9574 Jun, Encounter for immunization Z23 ; Pain in right leg M79.604 and Pain of left leg M79.605 [facility] [facility] [id number] [place] [address] 75669- 9865 Jun, [place] [address] 22285- 5536 Jun, [facility] [id number] [place] [address] 00566- 3374 Jun, Degenerative disc disease 722.6 [facility] [id number] [place] [address] 44951- 6013 Jun, [facility] [address] [place] [address] 92649- 8183 28 May, 2015 Seizures 780.39 and Autonomic peripheral neuropathy 337.9 [facility] [place] [id number] [place] [address] 60037- 9786 18 May, 2015 [facility] [place] [id number] [place] [address] 31914- 9894 May, [facility] [place] [id number] [place] [address] 24129- 0399 May, Degenerative disc disease 722.6 [facility] [place] [address] 971263- 8552 May, [facility] [place] [id number] [place] [address] 39515- 6145 Mar, [facility] [place] [address] 10376- 6195 Mar, Degenerative disc disease 722.6 ; Spinal stenosis 724.00 and HTN (hypertension) 401.9 [facility] [id number] [place] [address] 182107- 7447 Feb, Cutaneous horn 702.8 [facility] [place] [id number] [place] [address] 10992- 5333 Feb, Fatigue 780.79 [facility] [place] [id number] [place] [address] 20787- 8871 Feb, Fatigue 780.79 ; Arthritis 716.90 ; Spinal stenosis 724.00 ; Sinusitis 473.9 and Cutaneous horn 702.8 [facility] [place] [id number] [place] [address] 67691- 7994 January, [facility] [place] [id number] [place] [address] 18977- 4984 Dec, [facility] [place] [id number] [place] [address] 53813- 0524 Dec, [facility] [place] [facility] [address] [id number] [place] [address]- 6440 Nov, [facility] [place] [facility] [address] [id number] [place] [address]- 0148 Nov, [facility] [place] [facility] [address] [id number] [place] [address]- 6836 Oct, [facility] [place] [facility] [address] [id number] [place] [address]- 9206 Oct, [facility] [place] [facility] [address] [id number] [place] [address]- 5152 Oct, [facility] [place] [facility] [address] [id number] [place] [address]- 3611 Oct, [facility] [place] [facility] [address] [id number] [place] [address]- 7265 Oct, [facility] [place] [facility] [address] [id number] [place] [address]- 5989 Oct, [facility] [place] [facility] [address] [id number] [place] [address]- 0376 Sep, [facility] [place] [facility] [address] [id number] [place] [address]- 8605 Sep, [facility] [place] [facility] [address] [id number] [place] [address]- 2180 Sep, [facility] [place] [facility] [address] [id number] [place] [address]- 4705 Sep, [facility] [place] [facility] [address] [id number] [place] [address]- 0062 Sep, [facility] [place] [facility] [address] [id number] [place] [address]- 2153 Sep, [facility] [place] [facility] [address] [id number] [place] [address]- 1206 Sep, [facility] [place] [facility] [address] [id number] [place] [address]- 5258 Sep, [facility] [address] [id number] [place] [address]- 7795 Sep, [facility] [place] [facility] [address] [id number] [place] [address]- 6877 Sep, [facility] [address] [id number] [place] [address]- 5454 Sep, [facility] [address] [id number] [place] [address]- 4564 Sep, [facility] [address] [id number] [place] [address]- 2034 Sep, [facility] [address] [id number] [place] [address]- 1616 Sep, [facility] [address] [id number] [place] [address]- 8998 Aug, [facility] [address] [id number] [place] [address]- 1157 Aug, [facility] [address] [id number] [place] [address]- 1785 Aug, [facility] [address] [id number] [place] [address]- 0647 Aug, [facility] [place] [facility] [address] [id number] [place] [address]- 3376 Jul, [facility] [place] [facility] [address] [id number] [place] [address]- 0641 Jul, [facility] [place] [facility] [address] [id number] [place] [address]- 0436 May, [facility] [place] [facility] [address] [id number] [place] [address]- 0386 May, [facility] [place] [facility] [address] [id number] [place] [address]- 6195 May, [facility] [place] [facility] [address] [id number] [place] [address]- 8494 May, [facility] [place] [facility] [address] [id number] [place] [address]- 5899 May, [facility] [place] [facility] [address] [id number] [place] [address]- 9994 May, [facility] [place] [facility] [address] [id number] [place] [address]- 7406 Apr, [facility] [place] [facility] [address] [id number] [place] [address]- 7377 Apr, [facility] [place] [facility] [address] [id number] [place] [address]- 0186 Mar, [facility] [place] [facility] [address] [id number] [place] [address]- 4905 Mar, [facility] [place] [facility] [address] [id number] [place] [address]- 0258 Mar, [facility] [place] [facility] [address] [id number] [place] [address]- 5243 Mar, [facility] [place] [facility] [address] [id number] [place] [address]- 7328 Mar, [facility] [place] [facility] [address] [id number] [place] [address]- 8042 Mar, [facility] [place] [facility] [address] [id number] [place] [address]- 2052 Mar, [facility] [place] [facility] [address] [id number] [place] [address]- 5972 Mar, [facility] [place] [facility] [address] [id number] [place] [address]- 7435 Feb, [facility] [place] [facility] [address] [id number] [place] [address]- 4456 Feb, [facility] [place] [facility] [address] [id number] [place] [address]- 8393 January, [facility] [address] [id number] [place] [address]- 5098 January, [facility] [place] [facility] [address] [id number] [place] [address]- 7468 January, [facility] [place] [facility] [address] [id number] [place] [address] January, [facility] [place] [facility] [address] [id number] [place] [address] Dec, [facility] [place] [facility] [address] [id number] [place] [address] Dec, [facility] [place] [facility] [address] [id number] [place] [address] Oct, [facility] [place] [facility] [address] [id number] [place] [address] Oct, [facility] [place] [facility] [address] [id number] [place] [address] Oct, [facility] [place] [facility] [address] [id number] [place] [address] Oct, [facility] [place] [facility] [address] [facility] [id number] [place] [address] Sep, [facility] [place] [facility] [address] [id number] [place] [address] Sep, [facility] [place] [facility] [address] [id number] [place] [address] Aug, [facility] [place] [facility] [address] [id number] [place] [address] Aug, [facility] [place] [facility] [address] [id number] [place] [address] Aug, [facility] [place] [facility] [address] [id number] [place] [address] Aug, [facility] [place] [facility] [address] [id number] [place] [address]- [address] Aug, [facility] [place] [facility] [address] [id number] [place] [address] 2012 Aug, [facility] [place] [facility] [address] [id number] [place] [address] Aug, [facility] [place] [facility] [address] [id number] [place] [address] Aug, [facility] [place] [facility] [address] [id number] [place] [address] Aug, [facility] [place] [facility] [address] [id number] [place] [address] Aug, [facility] [place] [facility] [address] [id number] [place] [address] Jul, [facility] [place] [facility] [address] [id number] [place] [address]- [address] Jul, [facility] [place] [facility] [address] [id number] [place] [address] Jun, [facility] [place] [facility] [address] [id number] [place] [address] Jun, [facility] [place] [facility] [address] [id number] [place] [address] Jun, [facility] [place] [facility] [address] [id number] [place] [address] Jun, [facility] [place] [facility] [address] [id number] [place] [address] Jun, [facility] [place] [facility] [address] [id number] [place] [address] May, [facility] [place] [facility] [address] [id number] [place] [address]- [address] May, [facility] [place] [facility] [address] [id number] [place] [address] 12 May, 2013 [facility] [place] [facility] [address] [id number] [place] [address] 06 May, 2013 [facility] [place] [facility] [address] [id number] [place] [address] May, [facility] [place] [facility] [address] [id number] [place] [address] Apr, [facility] [place] [facility] [address] [id number] [place] [address] Mar, [facility] [place] [facility] [address] [id number] [place] [address] Mar, [facility] [facility] [address] [id number] [place] [address] Mar, [facility] [place] [facility] [address] [id number] [place] [address] Mar, [facility] [place] [facility] [address] [id number] [place] [address] Mar, [facility] [place] [facility] [address] [id number] [place] [address] Mar, [facility] [place] [facility] [address] [id number] [place] [address] Mar, [facility] [place] [facility] [address] [id number] [place] [address] Mar, [facility] [place] [facility] [address] [id number] [place] [address] Mar, [facility] [place] [facility] [address] [id number] [place] [address] Feb, [facility] [place] [facility] [address] [id number] [place] [address] Feb, [facility] [place] [facility] [address] [id number] [place] [address] Feb, [facility] [place] [facility] [address] [id number] [place] [address] January, [facility] [address] [id number] [place] [address] January, [facility] [address] [id number] [place] [address] January, [facility] [address] [id number] [place] [address] 270[address] January, [facility] [address] [id number] [place] [address] Dec, [facility] [address] [id number] [place] [address] Dec, [facility] [address] [id number] [place] [address] Dec, [facility] [address] [id number] [place] [address]107 Dec, [facility] [address] [id number] [place] [address] Dec, [facility] [address] [id number] [place] [address] Dec[facility] [address] [id number] [place] [address] Nov, [facility] [address] [id number] [place] [address] Oct, [facility] [address] [id number] [place] [address] Aug, [facility] [address] [id number] [place] [address]- 9968 Aug, [facility] [address] [id number] [place] [address] Aug, [facility] [address] [id number] [place] [address]- 68[address] Aug, [facility] [place] [facility] [address] [id number] [place] [address]- [address] Aug, [facility] [place] [facility] [address] [id number] [place] [address]- 4[address] Aug, [facility] [place] [address] [id number] [place] [address] 60[address] Aug, [facility] [place] [facility] [address] [id number] [place] [address]- 0176 Aug, [facility] [facility] [address] [id number] [place] [address] Aug, [facility] [address] [id number] [place] [address]- 5037 Aug, [facility] [place] [facility] [address] [id number] [place] [address]- 8750 Aug, [facility] [facility] [address] [id number] [address] Jul, [facility] [address] [id number] [place] [address] 7031 Jul, [facility] [facility] [address] [facility] [id number] [address]267 Jul, [facility] [address] [id number][place] [address] 1686 Jul, [facility] [address] [id number][place] [address]679 Jul, [facility] [address] [id number] [address] Jul, [facility] [address] [id number][place] [address] 8536 Jun, [facility] [address] [id number][place] [address]146 Jun, [facility] [address] [id number][place] [address] May, [facility] [address] [id number] [place] [address] 4912 Apr, [facility] [address] [id number] [place] [address]- 3456 Apr, [facility] [address] [id number] [place] [address]- 5680 Apr, [facility] [address] [id number] [place] [address]- 6224 Apr, [facility] [address] [id number] [place] [address]- 3269 Apr, [facility] [address] [id number] [place] [address]- 8043 Mar, [facility] [address] [id number] [place] [address]- 0344 Mar, [facility] [address] [id number] [place] [address]- 2907 January, [facility] [address] [id number] [place] [address]- 7090 January, [facility] [address] [id number] [place] [address]- 7754 Nov, [facility] [address] [id number] [place] [address]- 8772 Oct, [facility] [address] [id number] [place] [address]- 6128 Sep, [facility] [address] [id number] [place] [address]- 7551 Sep, [facility] [address] [id number] [place] [address]- 4515 Sep, [facility] [address] [id number] [place] [address]- 6447 Sep, [facility] [address] [id number] [place] [address]- 4221 Sep, [facility] [address] [id number] [place] [address]- 4465 Sep, [facility] [address] [id number] [place] [address]- 3601 Aug, [facility] [address] [id number] [place] [address]- 3893 Aug, [facility] [address] [id number] [place] [address]- 7050 Aug, [facility] [address] [id number] [place] [address]- 0995 Aug, [facility] [address] [id number] [place] [address]- 8480 Aug, [facility] [address] [id number] [place] [address]- 8770 Jul, [facility] [address] [id number] [place] [address]- 3267 Jul, [facility] [address] [id number] [place] [address]- 4524 Jul, [facility] [address] [id number] [place] [address]- 7242 Jun, [facility] [address] [id number] [place] [address]- 2204 Jun, [facility] [address] [id number] [place] [address]- 1591 Jun, [facility] [address] [id number] [place] [address]- 0579 January, [facility] [address] [id number] [place] [address]- 2044 Dec, [facility] [address] [id number] [place] [address]- 8832 Oct, 2010 [facility] [address] [facility] [id number], [place] [address] 16 Oct, 2010 [facility] [place] [address] [id number], [place] [address] Jun, [facility] [address] [id number], [place] [address]- [address] Aug, [facility] [address] [id number], [place] [address]- [address] Aug, [facility] [place] [address] [facility] [id number][place] [address]- 1334 Jul, [facility] [place] [address] [id number] [address] [address] Mar, IMMUNIZATIONS No Known Immunizations SOCIAL HISTORY Never Assessed REASON FOR VISIT Requests return call PLAN OF CARE VITAL SIGNS MEDICATIONS No Known Medications RESULTS No Results PROCEDURES No Known procedures INSTRUCTIONS MEDICATIONS ADMINISTERED No Known Medications MEDICAL (GENERAL) HISTORY Type Description Date Medical History Hypertension Medical History Chronic Obstructive pulmonary disease diagnosed 2008 in [place]-PFT not done previously Medical History Gastrointestinal disorder [...]
--- OUTSIDE RECORDS SUMMARY | 2018-03-28 12:22 | XMS REPORT ---
Author Author BRETT JOHNSON Organization [facility] Address [address] [place] [address] Care Team Providers Care Human Relations Professor Name Role Phone BRETT JOHNSON Unavailable PROBLEMS Type Condition ICD9-CM Code HEO66-AZ Code Onset Dates Condition Status SNOMED Code Problem Chronic sinusitis, unspecified J32.9 Active 58986200 Problem Other chronic pain G89.29 Active 44982844 Problem Gastroesophageal reflux disease without esophagitis K21.9 Active 303987694 Problem Slow transit constipation K59.01 Active 36874415 Problem Coronary artery disease involving [place] coronary artery of [place] heart without angina pectoris I25.10 Active [id number] Problem Agoraphobia with panic attacks F40.01 Active 897887751 Problem COPD with exacerbation J44.1 Active 014828139 Problem Pericardial effusion I31.3 Active 039283610 Problem Pleural effusion on left J90 Active 65785342 Problem Generalized anxiety disorder F41.1 Active 38887313 Problem Chronic obstructive pulmonary disease, unspecified COPD type J44.9 Active 44348979 Problem Hypertension, benign I10 Active 34626197 Problem Oral phase dysphagia R13.11 Active 878254527 Problem Vitamin B 12 deficiency E53.8 Active 68358727 Problem Chronic fatigue R53.82 Active 10591640 ALLERGIES Substance Reaction Event Type Date Status MethylPREDNISolone goes crazy Drug Allergy Oct, Active Ketorolac Tromethamine tingling in lips Drug Allergy Oct, Active Augmentin 875-125 Mg Tablet Pt states this medication is to harsh on her stomach. Non Drug Allergy Oct, Active ENCOUNTERS Encounter Location Date Diagnosis [facility] [address] [facility] [id number] [address] Feb, Coronary artery disease involving [place] coronary artery of [place] heart without angina pectoris I25.10 ; Vitamin B 12 deficiency E53.8 ; Slow transit constipation K59.01 ; Generalized anxiety disorder F41.1 and Breast cancer screening by mammogram Z12.31 [facility] [address], [place] [address] Feb, Flank pain R10.9 [facility] [address] [address] January, [facility] [address] [address] January, Chronic obstructive pulmonary disease, unspecified COPD type J44.9 ; Pleural effusion on left J90 ; Pericardial effusion I31.3 and Generalized anxiety disorder F41.1 [facility] [id number] [place] [address] 23828- 4463 January, Gastroenteritis K52.9 [facility] [address] [address] January, Flank pain R10.9 [facility] [address], [place] [address] January, [address] [id number] [place] [address] Dec [facility] [address] [address] Dec, [facility] [address], [place] [address] Dec, [facility] [address], [place] [address] Dec, [facility] [address], [place] [address] Dec, [facility] [id number] [place] [address] 08177- 1142 Dec, Flank pain R10.9 [facility] [address] [address] Dec, [facility] [id number] [place] [address] 55388- 7341 Nov, [facility] [address], [place] [address] Nov, [facility] [id number] [place] [address] 36244- 3408 Nov, [facility] [id number] [place] [address] 71287- 6526 14 Nov, 2017 Pericardial effusion I31.3 ; Agoraphobia with panic attacks F40.01 and Vitamin B 12 deficiency E53.8 [facility] [id number] [place] [address] 82059- 5999 Nov, [facility] [place] [id number] [place] [address] 49569- 7617 Nov, Pneumonia of both lungs due to infectious organism, unspecified part of lung J18.9 and Flank pain R10.9 [facility] [id number] [place] [address] 24269- 0726 Nov, Pneumonia of both lungs due to infectious organism, unspecified part of lung J18.9 and Gastroenteritis K52.9 [facility] [id number] [place] [address] 82678- 5587 Oct, Pneumonia of both lungs due to infectious organism, unspecified part of lung J18.9 and Vitamin B 12 deficiency E53.8 [facility] [id number] [place] [address] [id number] Oct, [facility] [id number] [place] [address] 75829- 6528 Oct, [facility] [id number] [place] [address] 40131- 4442 Oct, [facility] [id number] [place] [address] 11359- 1561 Oct, Flank pain R10.9 [facility] [id number] [place] [address] 60948- 7938 Oct, Other chronic pain G89.29 and Unspecified abdominal pain R10.9 [facility] [address] 25826- 0665 Sep, Flank pain R10.9 [facility] [id number] [place] [address] 86570- 0865 Sep, [facility] [address] 35226- 9160 Sep, [facility] [address] 73819- 4354 Sep, Acute non-recurrent maxillary sinusitis J01.00 [facility] [address] 53523- 6910 Sep, Acute non-recurrent maxillary sinusitis J01.00 and Vitamin B 12 deficiency E53.8 [facility] [address] 92080- 7288 Sep, [facility] [address] 72993- 0282 Sep, [facility] [address] 21605- 2853 Sep, [facility] [address] 43312- 1172 Sep, COPD with exacerbation J44.1 [facility] [id number] [place] [address] 64748- 8773 Sep, Chronic obstructive pulmonary disease, unspecified COPD type J44.9 [facility] [id number] [place] [address] 28870- 3593 Aug, Flank pain R10.9 [facility] [id number] [place] [address] 11003- 9914 Jul, Flank pain R10.9 and Vitamin B 12 deficiency E53.8 [facility] [address] [place] [address]- 3725 Jul, [facility] [id number] [place] [address] 27440- 8196 Jun, Gastroenteritis K52.9 [facility] [address] 56963- 6043 May, Gastroenteritis K52.9 and Vitamin B 12 deficiency E53.8 [facility] [address] 41186- 5317 Apr, Allergic conjunctivitis of left eye H10.12 and Chronic fatigue R53.82 [facility] [address] 14714- 0273 Apr, Chronic sinusitis, unspecified J32.9 [facility] [address] 03572- 1873 Apr, [facility] [address] 72691- 5468 Feb, [facility] [id number] [place] [address] 93438- 9895 January, [facility] [id number] [place] [address] 32308- 4289 Dec, [facility] [id number] [place] [address] 21974- 7978 Oct, [facility] [id number] [place] [address] 30118- 0259 Sep, Oral phase dysphagia R13.11 and Vitamin B 12 deficiency E53.8 [facility] [id number] [place] [address] 64026- 8037 Sep, [facility] [id number] [place] [address] 26503- 0240 Jul, [facility] [id number] [place] [address] 57112- 9625 Jul, [facility] [id number] [place] [address] 94357- 2371 Jun, Bronchitis J40 ; Generalized anxiety disorder F41.1 and Chronic obstructive pulmonary disease, unspecified COPD type J44.9 [facility] [id number] [place] [address] 43000- 0233 Jun, [facility] [address] 51614- 8104 Jun, [facility] [address] 02847- 5364 Jun, [facility] [address] 42429- 2244 May, Vitamin B 12 deficiency E53.8 ; Essential (primary) hypertension I10 ; Generalized anxiety disorder F41.1 ; Pain in joint, ankle and foot 719.47 ; Arthritis M19.90 ; Chronic obstructive pulmonary disease, unspecified COPD type J44.9 and Encounter for immunization Z23 [facility] [id number] [place] [address] 13123- 1615 Apr, [facility] [address] 17007- 2014 Apr, [facility] [id number] [place] [address] 81384- 2202 Mar, [facility] [id number] [place] [address] 45713- 9617 January, [facility] [id number] [place] [address] 46923- 8626 Dec, [facility] [address] 33742- 3511 Oct, [facility] [id number] [place] [address] 46446- 5413 Oct, [facility] [address] 68962- 4981 Oct, Hypertension, benign I10 and Vitamin B 12 deficiency E53.8 [facility] [id number] [place] [address] 05039- 0242 Oct, [facility] [id number] [place] [address] 97791- 0139 Oct, [facility] [place] [id number] [place] [address] 80756- 1951 Oct, Irritable bowel syndrome with diarrhea K58.0 [facility] [id number] [place] [address] 79980- 8423 Oct, [facility] [place] [id number] [place] [address] 36028- 7481 Oct, Vitamin B 12 deficiency E53.8 ; Hypertension, benign I10 and Chronic obstructive pulmonary disease, unspecified COPD type J44.9 [facility] [id number] [place] [address] 38126- 5831 Sep, Irritable bowel syndrome with diarrhea K58.0 ; Hypertension , benign I10 ; Chronic obstructive pulmonary disease, unspecified COPD type J44.9 ; Edema, unspecified type R60.9 ; Vision changes H53.9 and Vitamin B 12 deficiency E53.8 [facility] [id number] [place] [address] 30151- 9344 Sep, [facility] [id number] [place] [address] 96142- 7825 Jul, Degenerative disc disease 722.6 [facility] [id number] [place] [address] 88423- 4526 Jun, Encounter for immunization Z23 ; Pain in right leg M79.604 and Pain of left leg M79.605 [facility] [id number] [place] [address] 73286- 2986 Jun, [facility] [id number] [place] [address] 82314- 8259 Jun, [facility] [address], [place] [address]- 5617 Jun, Degenerative disc disease 722.6 [facility] [id number] [place] [address] 32712- 5056 Jun, [facility] [id number] [place] [address] 51702- 0988 May, Seizures 780.39 and Autonomic peripheral neuropathy 337.9 [facility] [id number] [place] [address] 53750- 6004 18 May, 2015 [facility] [id number] [place] [address] 12131- 4386 17 May, 2015 [facility] [id number] [place] [address] 54677- 2554 May, Degenerative disc disease 722.6 [facility] [id number] [place] [address] 91031- 1220 May, [facility] [id number] [place] [address] 91188- 9218 Mar, [facility] [id number] [place] [address] 98190- 6466 Mar, Degenerative disc disease 722.6 ; Spinal stenosis 724.00 and HTN (hypertension) 401.9 [facility] [id number] [place] [address] 91465- 3235 Feb, Cutaneous horn 702.8 [facility] [id number] [place] [address] 34116- 9464 Feb, Fatigue 780.79 [facility] [id number] [place] [address] 83407- 0644 Feb, Fatigue 780.79 ; Arthritis 716.90 ; Spinal stenosis 724.00 ; Sinusitis 473.9 and Cutaneous horn 702.8 [facility] [id number] [place] [address] 08083- 5223 January, [facility] [place] [facility] [address] [id number] [place] [address]- 1318 Dec, [facility] [place] [facility] [address] [id number] [place] [address]- 1030 Dec, [facility] [place] [facility] [address] [id number] [place] [address]- 6360 Nov, [facility] [place] [facility] [address] [id number] [place] [address]- 5264 Nov, [facility] [place] [facility] [address] [id number] [place] [address]- 4335 Oct, [facility] [place] [facility] [address] [id number] [place] [address]- 2058 Oct, [facility] [place] [facility] [address] [id number] [place] [address]- 8118 Oct, [facility] [place] [facility] [address] [id number] [place] [address]- 7919 Oct, [facility] [place] [facility] [address] [id number] [place] [address]- 8348 Oct, [facility] [place] [facility] [address] [id number] [place] [address]- 3303 Oct, [facility] [place] [facility] [address] [id number] [place] [address]- 5938 Sep, [facility] [place] [facility] [address] [id number] [place] [address]- 6768 Sep, [facility] [place] [facility] [address] [id number] [place] [address]- 2998 Sep, [facility] [place] [facility] [address] [id number] [place] [address]- 5157 Sep, [facility] [place] [facility] [address] [id number] [place] [address]- 2856 Sep, [facility] [place] [facility] [address] [id number] [place] [address]- 3429 Sep, [facility] [address] [id number] [place] [address]- 4886 Sep, [facility] [address] [id number] [place] [address]- 7577 Sep, [facility] [address] [id number] [place] [address]- 9870 Sep, [facility] [address] [id number] [place] [address]- 3318 Sep, [facility] [address] [id number] [place] [address]- 5707 Sep, [facility] [address] [id number] [place] [address]- 6595 Sep, [facility] [address] [id number] [place] [address]- 6359 Sep, [facility] [address] [id number] [place] [address]- 0388 Sep, [facility] [address] [id number] [place] [address]- 9488 Aug, [facility] [address] [id number] [place] [address]- 7439 Aug, [facility] [place] [facility] [address] [id number] [place] [address]- 2479 Aug, [facility] [place] [facility] [address] [id number] [place] [address]- 2548 Aug, [facility] [place] [facility] [address] [id number] [place] [address]- 6817 Jul, [facility] [place] [facility] [address] [id number] [place] [address]- 1130 Jul, [facility] [place] [facility] [address] [id number] [place] [address]- 8807 May, [facility] [place] [facility] [address] [id number] [place] [address]- 5446 May, [facility] [place] [facility] [address] [id number] [place] [address]- 2163 May, [facility] [place] [facility] [address] [id number] [place] [address]- 5198 May, [facility] [place] [facility] [address] [id number] [place] [address]- 3223 May, [facility] [place] [facility] [address] [id number] [place] [address]- 0060 May, [facility] [place] [facility] [address] [id number] [place] [address]- 1469 Apr, [facility] [place] [facility] [address] [id number] [place] [address]- 5130 Apr, [facility] [place] [facility] [address] [id number] [place] [address]- 4385 Mar, [facility] [place] [facility] [address] [id number] [place] [address]- 7492 Mar, [facility] [place] [facility] [address] [id number] [place] [address]- 0249 Mar, [facility] [place] [facility] [address] [id number] [place] [address]- 7935 Mar, [facility] [place] [facility] [address] [id number] [place] [address]- 6241 Mar, [facility] [place] [facility] [address] [id number] [place] [address]- 9318 Mar, [facility] [place] [facility] [address] [id number] [place] [address]- 1041 Mar, [facility] [place] [facility] [address] [id number] [place] [address]- 9969 Mar, [facility] [place] [facility] [address] [id number] [place] [address]- 4455 Feb, [facility] [address] [id number] [place] [address]- 1826 Feb, [facility] [place] [facility] [address] [id number] [place] 3970 January, [facility] [place] [facility] [address] [id number] [place] [address]- 6733 January, [facility] [place] [facility] [address] [id number] [place] [address]- 5512 January, [facility] [place] [facility] [address] [id number] [place] [address]- 2011 January, [facility] [place] [facility] [address] [id number] [place] [address]- 0718 Dec, [facility] [place] [facility] [address] [id number] [place] [address]- 4672 Dec, [facility] [place] [facility] [address] [id number] [place] [address]- 2632 Oct, [facility] [place] [facility] [address] [id number] [place] [address]- 2401 Oct, [facility] [place] [facility] [address] [id number] [place] [address]- 5264 Oct, [facility] [place] [facility] [address] [id number] [place] [address]- 0035 Oct, [facility] [place] [facility] [address] [id number] [place] [address]- 1017 Sep, [facility] [place] [facility] [address] [id number] [place] [address]- 6275 Sep, [facility] [place] [facility] [address] [id number] [place] [address]- 7242 Aug, [facility] [place] [facility] [address] [id number] [place] [address]- 1604 Aug, [facility] [place] [facility] [address] [id number] [place] [address]- 4419 Aug, [facility] [place] [facility] [address] [id number] [place] [address]- 5920 Aug, [facility] [place] [facility] [address] [id number] [place] [address]- 6715 Aug, [facility] [place] [facility] [address] [id number] [place] [address]- 0040 Aug, [facility] [place] [facility] [address] [id number] [place] [address]- 1819 Aug, [facility] [place] [facility] [address] [id number] [place] [address]- 9815 Aug, [facility] [place] [facility] [address] [id number] [place] 9083 Aug, [facility] [place] [facility] [address] [id number] [place] [address]- 3073 Aug, [facility] [place] [facility] [address] [id number] [place] [address]- 6944 Jul, [facility] [place] [facility] [address] [id number] [place] [address] Jul, [facility] [place] [facility] [address] [id number] [place] [address] Jun, [facility] [place] [facility] [address] [id number] [place] [address] Jun, [facility] [place] [facility] [address] [id number] [place] [address] Jun, [facility] [place] [facility] [address] [id number] [place] [address] Jun, [facility] [place] [facility] [address] [id number] [place] [address] Jun, [facility] [place] [facility] [address] [id number] [place] [address] 13 May, 2013 [facility] [place] [facility] [address] [id number] [place] [address] 13 May, 2013 [facility] [place] [facility] [address] [id number] [place] [address] 12 May, 2013 [facility] [place] [facility] [address] [id number] [place] [address] 06 May, 2013 [facility] [place] [facility] [address] [id number] [place] [address] 03 May, 2013 [facility] [place] [facility] [address] [id number] [place] [address] Apr, [facility] [place] [facility] [address] [id number] [place] [address] Mar, [facility] [place] [facility] [address] [id number] [place] [address] Mar, [facility] [place] [facility] [address] [id number] [place] [address] Mar, [facility] [place] [facility] [address] [id number] [place] [address] Mar, [facility] [place] [facility] [address] [id number] [place] [address] Mar, [facility] [place] [facility] [address] [id number] [place] [address] Mar, [facility] [place] [facility] [address] [id number] [place] [address] Mar, [facility] [place] [facility] [address] [id number] [place] [address] Mar, [facility] [place] [facility] [address] [id number] [place] [address] Mar, [facility] [place] [facility] [address] [id number] [place] [address] Feb, [facility] [place] [facility] [address] [id number] [place] [address] 17 Feb, 2013 [facility] [address] [id number] [place] [address] Feb, [facility] [address] [id number] [place] [address] January, [facility] [address] [id number] [place] [address] January, [facility] [address] [id number] [place] [address] January, [facility] [address] [id number] [place] [address] January, [facility] [address] [id number] [place] [address] Dec, [facility] [address] [id number] [place] [address] Dec, [facility] [address] [id number] [place] [address] Dec, [facility] [address] [id number] [place] [address] Dec, [facility] [address] [id number] [place] [address] Dec, [facility] [address] [id number] [place] [address] Dec, [facility] [address] [id number] [place] [address] Nov, [facility] [address] [id number] [place] [address] Oct, [facility] [address] [id number] [place] [address] Aug, [facility] [address] [id number] [place] [address] Aug, [facility] [place] [facility] [address] [id number] [place] [address] Aug, [facility] [place] [facility] [address] [id number] [place] [address] Aug, [facility] [place] [facility] [address] [id number] [place] [address] Aug, [facility] [place] [facility] [address] [id number] [place] [address] Aug, [facility] [place] [facility] [address] [id number] [id number] [address] Aug, [facility] [place] [facility] [address] [id number] [place] [address] Aug, [facility] [place] [facility] [address] [id number] [place] [address] Aug, [facility] [place] [facility] [address] [id number] [place] [address] Aug, [facility] [place] [facility] [address] [id number] [place] [address] Aug, [facility] [place] [facility] [address] [facility] [id number], [place] [address] Jul, [facility] [place] [facility] [address] [id number], [place] [address] Jul, [facility] [place] [facility] [address] [id number][place] [address] Jul, [facility] [place] [facility] [address] [id number] [place] [address] Jul, [facility] [place] [facility] [address] [id number], [place] [address] Jul, [facility] [place] [facility] [address] [id number], [place] [address] Jul, [facility] [place] [facility] [address] [id number], [place] [address] Jun, [facility] [address] [id number] [place] [address] Jun, [facility] [place] [facility] [address] [id number] [place] [address] May, [facility] [place] [facility] [address] [id number] [place] [address] Apr, [facility] [place] [facility] [address] [id number] [place] [address] Apr, [facility] [place] [facility] [address] [id number] [place] [address] Apr, [facility] [place] [facility] [address] [id number] [place] [address] Apr, [facility] [address] [id number] [place] [address] Apr, [facility] [place] [facility] [address] [id number] [place] [address] Mar, [facility] [place] [facility] [address] [id number] [place] [address] Mar, [facility] [place] [facility] [address] [id number] [place] [address] January, [facility] [place] [facility] [address] [id number] [place] [address] January, [facility] [place] [facility] [address] [id number] [place] [address] Nov, [facility] [place] [facility] [address] [id number] [place] [address] Oct, [facility] [place] [facility] [address] [id number] [place] [address] Sep, [facility] [place] [facility] [address] [id number] [place] [address] Sep, [facility] [place] [facility] [address] [id number] [place] [address] Sep, [facility] [place] [facility] [address] [id number] [place] [address] Sep, [facility] [place] [facility] [address] [id number] [place] [address] Sep, [facility] [place] [facility] [address] [id number] [place] [address] Sep, [facility] [place] [facility] [address] [id number] [place] [address] Aug, [facility] [place] [facility] [address] [id number] [place] [address] Aug, [facility] [place] [facility] [address] [id number] [place] [address] Aug, [facility] [place] [facility] [address] [id number] [place] [address] Aug, [facility] [place] [facility] [address] [id number] [place] [address] Aug, [facility] [place] [facility] [address] [id number] [place] [address] Jul, [facility] [place] [facility] [address] [id number] [place] [address] Jul, [facility] [place] [facility] [address] [id number] [place] [address] Jul, [facility] [place] [facility] [address] [id number] [place] [address] Jun, [facility] [place] [facility] [address] [id number] [place] [address] Jun, [facility] [place] [facility] [address] [id number] [place] [address] Jun, [facility] [place] [facility] [address] [id number] [place] [address] January, [facility] [address] [id number] [address] Dec, [facility] [id number], [place] [address] Oct, [facility] [id number], [place] [address] Oct, [facility] [id number], [place] [address] Jun, [facility] [id number], [place] [address] Aug, [facility] [id number], [place] [address] Aug, [facility] [id number], [place] [address] Jul, [facility] [id number], [place] [address] Mar, IMMUNIZATIONS No Known Immunizations SOCIAL HISTORY Never Assessed REASON FOR VISIT Pain management (chronic), and PT says she needs an xray and discuss cancer- Suzie CHUN PLAN OF CARE VITAL SIGNS Height 67 in 2017-10-25 Weight 175.5 lbs 2017-10-25 Temperature 98.2 degrees Fahrenheit 2017-10-25 Heart Rate 76 bpm 2017-10-25 Respiratory Rate 22 2017-10-25 BMI 27.48 kg/m2 2017-10-25 Blood pressure systolic 138 mmHg 2017-10-25 Blood pressure diastolic 92 mmHg 2017-10-25 MEDICATIONS Medication Instructions Dosage Frequency Start Date End Date Duration Status Amiodarone HCl 200 MG Orally Once a day 1 tablet 24h Active Ranitidine HCl 150 MG 1 tablet as needed 12h 30 Active Fluticasone Propionate 50 MCG/ACT Nasally 2 times a day 1 spray in each nostril 12h 30 days Active Colace 100 MG Orally Once a day 1 capsule as needed 24h Active PredniSONE 20 mg Orally Once a day x 5 days then 1 daily x 5 days then 1/2 daily x 6 days 2 tablets Oct, Active Atenolol 100 mg 0.5 tablet by Oral route 2 times per day 12h 30 Active [place] 5-325 MG Orally every 6 hrs 1 tablet as needed 6h Sep, Active Cetirizine HCl 10 mg 1 tablet 24h 30 Active Cyclobenzaprine HCl 10 MG TAKE ONE TABLET BY MOUTH TWICE DAILY NEEDED 30 Not-Taking Melatonin 3 MG Orally Once a day 1 tablet at bedtime as needed with food 24h Sep, 30 day(s) Not-Taking Guaifenesin 400 mg Orally every 4 hrs 1 tablet as needed 4h Sep, Active Albuterol Sulfate (2.5 MG/3ML) 0.083% Inhalation every 4 hrs 3 ml 4h Oct Active Advair Diskus 500-50 MCG/DOSE Inhalation Twice a day 1 puffs by Inhalation route 2 times per day 12h 30 Active Dicyclomine HCl 20 mg Orally Four times a day PRN 1 tablet 30 Active Xanax 0.5 MG Orally 3 times a day 1 tablet 8h Nov, 03 days Active ProAir HFA 108 (90 Base) MCG/ACT 2 puffs as needed 6h Active Diclofenac Sodium 75 MG Orally Twice a day 1 tablet with food or milk 12h Sep, January, 30 day(s) Active Cromolyn Sodium 4 % Ophthalmic Four times a day 1 drop into affected eye 6h Apr, Not-Taking Acidophilus 100 mg Orally Once a day 1 capsule 24h 18 May, 2017 Active Omeprazole 20 mg 2 capsules 24h 30 Active Zanaflex 4 MG Orally 2 times a day 1 tablet as needed 12h Sep, Not-Taking RESULTS No Results PROCEDURES No Known procedures INSTRUCTIONS MEDICATIONS ADMINISTERED No Known Medications MEDICAL (GENERAL) HISTORY Type Description Date Medical History Hypertension Medical History Chronic Obstructive pulmonary disease diagnosed 2008 in [place]-PFT not done previously Medical History Gastrointestinal disorder [...]
--- OUTSIDE RECORDS SUMMARY | 2018-03-28 12:23 | XMS REPORT ---
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 Active 9674680926339 Problem Agoraphobia with panic attacks F40.01 Active 723097502 Problem COPD with exacerbation J44.1 Active 318194674 Problem Pericardial effusion I31.3 Active 343157908 Problem Pleural effusion on left J90 Active 92689285 Problem Generalized anxiety disorder F41.1 Active 72556849 Problem Chronic obstructive pulmonary disease, unspecified COPD type J44.9 Active 51952313 Problem Hypertension, benign I10 Active 58471203 Problem Oral phase dysphagia R13.11 Active 910064477 Problem Vitamin B 12 deficiency E53.8 Active 43902624 Problem Chronic fatigue R53.82 Active 27276459 ALLERGIES No Information ENCOUNTERS Encounter Location Date Diagnosis [facility] [id number] [place] [address] 17521- 6664 18 Feb, 2018 Coronary artery disease involving salam[place]of coronary artery of salam[place] heart without angina pectoris I25.10 ; Vitamin B 12 deficiency E53.8 ; Slow transit constipation K59.01 ; Generalized anxiety disorder F41.1 and Breast cancer screening by mammogram Z12.31 [facility] [id number] [address] 05 Feb, 2018 Flank pain R10.9 [facility] [id number] [place] [address] 75690- 3557 January, [facility] [address] [place] [address] January, Chronic obstructive pulmonary disease, unspecified COPD type J44.9 ; Pleural effusion on left J90 ; Pericardial effusion I31.3 and Generalized anxiety disorder F41.1 [facility] [address] [address] January, Gastroenteritis K52.9 [facility] [address], [place] [address] 1634 January, Flank pain R10.9 [facility] [id number] [place] [address] 08400- 7583 January, [address] [id number] [place] [address] Dec [facility] [address] [place] [address] 55[address] Dec, [facility] [address] [place] [address] 9126 Dec, [facility] [address] [place] [address] 4381 Dec, [facility] [address], [place] [address] Dec, [facility] [address], [place] [address] 30[address] Dec, Flank pain R10.9 [facility] [address], [place] [address] 1202 Dec, [facility] [address], [place] [address] 9166 Nov, [facility] [address], [place] [address] 2147 Nov, [facility] [address] [place] [address] 2111 Nov, [facility] [id number] [place] [address] 82993- 8844 Nov, Pericardial effusion I31.3 ; Agoraphobia with panic attacks F40.01 and Vitamin B 12 deficiency E53.8 [facility] [id number] [place] [address] 86302- 0810 Nov, [facility] [id number] [place] [address] 39424- 9655 Nov, Pneumonia of both lungs due to infectious organism, unspecified part of lung J18.9 and Flank pain R10.9 [facility] [id number] [place] [address] 67420- 2058 Nov, Pneumonia of both lungs due to infectious organism, unspecified part of lung J18.9 and Gastroenteritis K52.9 [facility] [id number] [place] [address] 81574- 6768 Oct, Pneumonia of both lungs due to infectious organism, unspecified part of lung J18.9 and Vitamin B 12 deficiency E53.8 [facility] [address] [id number] Oct, [facility] [id number] [place] [address] 03261- 6816 Oct, [facility] [id number] [place] [address] 53233- 1788 Oct, [facility] [id number] [place] [address] 29112- 0903 Oct, Flank pain R10.9 [facility] [id number] [place] [address] 92178- 4826 Oct, Other chronic pain G89.29 and Unspecified abdominal pain R10.9 [facility] [id number] [place] [address] 84002- 5644 Sep, Flank pain R10.9 [facility] [id number] [place] [address] 08951- 7574 Sep, [facility] [id number] [place] [address] 51640- 7179 Sep, [facility] [id number] [place] [address] 09347- 1313 Sep, Acute non-recurrent maxillary sinusitis J01.00 [facility] [id number] [place] [address] 20982- 0430 Sep, Acute non-recurrent maxillary sinusitis J01.00 and Vitamin B 12 deficiency E53.8 [facility] [id number] [place] [address] 10045- 7605 Sep, [facility] [id number] [place] [address] 75960- 8137 Sep, [facility] [id number] [place] [address] 50036- 2696 Sep, [facility] [id number] [place] [address] 72190- 6885 Sep, COPD with exacerbation J44.1 [facility] [id number] [place] [address] 62172- 6165 Sep, Chronic obstructive pulmonary disease, unspecified COPD type J44.9 [facility] [id number] [place] [address] 11476- 7773 Aug, Flank pain R10.9 [facility] [id number] [place] [address] 67906- 4936 Jul, Flank pain R10.9 and Vitamin B 12 deficiency E53.8 [facility] [id number] [place] [address] 81607- 4815 Jul, [facility] [id number] [place] [address] 84890- 3509 Jun, Gastroenteritis K52.9 [facility] [id number] [place] [address] 60002- 8227 18 May, 2017 Gastroenteritis K52.9 and Vitamin B 12 deficiency E53.8 [facility] [id number] [place] [address] 29782- 0965 Apr, Allergic conjunctivitis of left eye H10.12 and Chronic fatigue R53.82 [facility] [address] 69502- 7834 Apr, Chronic sinusitis, unspecified J32.9 [facility] [id number] [place] [address] 54253- 3380 Apr, [facility] [id number] [place] [address] 83337- 6527 Feb, [facility] [id number] [place] [address] 65907- 6427 January, [facility] [id number] [place] [address] 67926- 0747 Dec, [facility] [id number] [place] [address] 76462- 6817 Oct, [facility] [id number] [place] [address] 99753- 7145 Sep, Oral phase dysphagia R13.11 and Vitamin B 12 deficiency E53.8 [facility] [id number] [place] [address] 59189- 1393 Sep, [facility] [id number] [place] [address] 80179- 9634 Jul, [facility] [id number] [place] [address] 03454- 8133 Jul, [facility] [id number] [place] [address] 26092- 0430 Jun, Bronchitis J40 ; Generalized anxiety disorder F41.1 and Chronic obstructive pulmonary disease, unspecified COPD type J44.9 [facility] [id number] [place] [address] 95061- 0526 18 Jun, 2016 [facility] [id number] [place] [address] 42909- 6795 14 Jun, 2016 [facility] [id number] [place] [address] 44711- 6784 13 Jun, 2016 [facility] [id number] [place] [address] 75152- 9908 May, Vitamin B 12 deficiency E53.8 ; Essential (primary) hypertension I10 ; Generalized anxiety disorder F41.1 ; Pain in joint, ankle and foot 719.47 ; Arthritis M19.90 ; Chronic obstructive pulmonary disease, unspecified COPD type J44.9 and Encounter for immunization Z23 [facility] [id number] [place] [address] 61984- 5627 Apr, [facility] [address] 18072- 3043 Apr, [facility] [id number] [place] [address] 58926- 8117 Mar, [facility] [id number] [place] [address] 92319- 7794 January, [facility] [id number] [place] [address] 29065- 3160 Dec, [facility] [id number] [place] [address] 01182- 5497 Oct, [facility] [id number] [place] [address] 16418- 9026 Oct, [facility] [id number] [place] [address] 85258- 8220 Oct, Hypertension, benign I10 and Vitamin B 12 deficiency E53.8 [facility] [id number] [place] [address] 92424- 7184 Oct, [facility] [address] [place] [address]- 1812 Oct, [facility] [id number] [place] [address] 36971- 4122 Oct, Irritable bowel syndrome with diarrhea K58.0 [facility] [id number] [place] [address] 96794- 9593 Oct, [facility] [address] 15035- 7381 Oct, Vitamin B 12 deficiency E53.8 ; Hypertension, benign I10 and Chronic obstructive pulmonary disease, unspecified COPD type J44.9 [facility] [address] 86370- 7726 Sep, Irritable bowel syndrome with diarrhea K58.0 ; Hypertension , benign I10 ; Chronic obstructive pulmonary disease, unspecified COPD type J44.9 ; Edema, unspecified type R60.9 ; Vision changes H53.9 and Vitamin B 12 deficiency E53.8 [facility] [id number] [place] [address] 84168- 0764 Sep, [facility] [address] 50946- 7016 Jul, Degenerative disc disease 722.6 [facility] [id number] [place] [address] 66328- 0177 Jun, Pain in right leg M79.604 ; Encounter for immunization Z23 and Pain of left leg M79.605 [facility] [id number] [place] [address] 11759- 6368 Jun, [facility] [address] 28938- 1582 Jun, [facility] [id number] [place] [address] 46959- 2725 Jun, Degenerative disc disease 722.6 [facility] [id number] [place] [address] 82113- 6712 Jun, [facility] [id number] [place] [address] 95787- 8941 28 May, 2015 Seizures 780.39 and Autonomic peripheral neuropathy 337.9 [facility] [id number] [place] [address] 66945- 8643 18 May, 2015 [facility] [id number] [place] [address] 81500- 0490 May, [facility] [id number] [place] [address] 54699- 2685 May, Degenerative disc disease 722.6 [facility] [address] 522295- 3331 May, [facility] [id number] [place] [address] 36487- 0972 Mar, [facility] [address] 42901- 4140 Mar, Degenerative disc disease 722.6 ; Spinal stenosis 724.00 and HTN (hypertension) 401.9 [facility] [id number] [place] [address] 948547- 5718 Feb, Cutaneous horn 702.8 [facility] [id number] [place] [address] 66874- 6157 Feb, Fatigue 780.79 [facility] [id number] [place] [address] 84254- 1583 Feb, Fatigue 780.79 ; Arthritis 716.90 ; Spinal stenosis 724.00 ; Sinusitis 473.9 and Cutaneous horn 702.8 [facility] [id number] [place] [address] 41164- 6074 January, [facility] [id number] [place] [address] 50262- 5256 Dec, [facility] [id number] [place] [address] 24082- 5048 Dec, [facility] [place] [facility] [address] [id number] [place] [address]- 8239 Nov, [facility] [place] [facility] [address] [id number] [place] [address]- 2981 Nov, [facility] [place] [facility] [address] [id number] [place] [address]- 6976 Oct, [facility] [place] [facility] [address] [id number] [place] [address]- 0689 Oct, [facility] [place] [facility] [address] [id number] [place] [address]- 4537 Oct, [facility] [place] [facility] [address] [id number] [place] [address]- 9739 Oct, [facility] [place] [facility] [address] [id number] [place] [address]- 0525 Oct, [facility] [place] [facility] [address] [id number] [place] [address]- 9236 Oct, [facility] [place] [facility] [address] [id number] [place] [address]- 4818 Sep, [facility] [place] [facility] [address] [id number] [place] [address]- 7163 Sep, [facility] [place] [facility] [address] [id number] [place] [address]- 6264 Sep, [facility] [place] [facility] [address] [id number] [place] [address]- 1532 Sep, [facility] [place] [facility] [address] [id number] [place] [address]- 9402 Sep, [facility] [place] [facility] [address] [id number] [place] [address]- 5173 Sep, [facility] [place] [facility] [address] [id number] [place] [address]- 1945 Sep, [facility] [place] [facility] [address] [id number] [place] [address]- 6430 Sep, [facility] [address] [id number] [place] [address]- 1236 Sep, [facility] [place] [facility] [address] [id number] [place] [address]- 2957 Sep, [facility] [address] [id number] [place] [address]- 4385 Sep, [facility] [address] [id number] [place] [address]- 9052 Sep, [facility] [address] [id number] [place] [address]- 4625 Sep, [facility] [address] [id number] [place] [address]- 5132 Sep, [facility] [address] [id number] [place] [address]- 1657 Aug, [facility] [address] [id number] [place] [address]- 2866 Aug, [facility] [address] [id number] [place] [address]- 8100 Aug, [facility] [address] [id number] [place] [address]- 9748 Aug, [facility] [place] [facility] [address] [id number] [place] [address]- 4134 Jul, [facility] [place] [facility] [address] [id number] [place] [address]- 5961 Jul, [facility] [place] [facility] [address] [id number] [place] [address]- 4542 May, [facility] [place] [facility] [address] [id number] [place] [address]- 1849 May, [facility] [place] [facility] [address] [id number] [place] [address]- 1255 May, [facility] [place] [facility] [address] [id number] [place] [address]- 3326 May, [facility] [place] [facility] [address] [id number] [place] [address]- 9008 May, [facility] [place] [facility] [address] [id number] [place] [address]- 2775 May, [facility] [place] [facility] [address] [id number] [place] [address]- 3671 Apr, [facility] [place] [facility] [address] [id number] [place] [address]- 2293 Apr, [facility] [place] [facility] [address] [id number] [place] [address]- 5643 Mar, [facility] [place] [facility] [address] [id number] [place] [address]- 6867 Mar, [facility] [place] [facility] [address] [id number] [place] [address]- 8489 Mar, [facility] [place] [facility] [address] [id number] [place] [address]- 0838 Mar, [facility] [place] [facility] [address] [id number] [place] [address]- 3450 Mar, [facility] [place] [facility] [address] [id number] [place] [address]- 9227 Mar, [facility] [place] [facility] [address] [id number] [place] [address]- 2359 Mar, [facility] [place] [facility] [address] [id number] [place] [address]- 2050 Mar, [facility] [place] [facility] [address] [id number] [place] [address]- 8397 Feb, [facility] [place] [facility] [address] [id number] [place] [address]- 5788 Feb, [facility] [place] [facility] [address] [id number] [place] [address]- 3623 January, [facility] [address] [id number] [place] [address]- 2063 January, [facility] [place] [facility] [address] [id number] [place] [address]- 7049 January, [facility] [place] [facility] [address] [id number] [place] [address]- 0132 January, [facility] [place] [facility] [address] [id number] [place] [address]- 3955 Dec, [facility] [place] [facility] [address] [id number] [place] [address]- 0368 Dec, [facility] [place] [facility] [address] [id number] [place] [address]- 4719 Oct, [facility] [place] [facility] [address] [id number] [place] [address]- 9513 Oct, [facility] [place] [facility] [address] [id number] [place] [address]- 5818 Oct, [facility] [place] [facility] [address] [id number] [place] [address]- 3986 Oct, [facility] [place] [facility] [address] [facility] [id number] [place] [address]- 9850 Sep, [facility] [place] [facility] [address] [id number] [place] [address]- 4686 Sep, [facility] [place] [facility] [address] [id number] [place] [address]- 4990 Aug, [facility] [place] [facility] [address] [id number] [place] [address]- 2850 Aug, [facility] [place] [facility] [address] [id number] [place] [address]- 4350 Aug, [facility] [place] [facility] [address] [id number] [place] [address]- 3877 Aug, [facility] [place] [facility] [address] [id number] [place] [address]- 2453 Aug, [facility] [place] [facility] [address] [id number] [place] [address]- 1777 Aug, [facility] [place] [facility] [address] [id number] [place] [address]- 4959 Aug, [facility] [place] [facility] [address] [id number] [place] 9395 Aug, [facility] [place] [facility] [address] [id number] [place] [address]- 1763 Aug, [facility] [place] [facility] [address] [id number] [place] [address]- 8063 Aug, [facility] [place] [facility] [address] [id number] [place] [address]- 0356 Jul, [facility] [place] [facility] [address] [id number] [place] [address] Jul, [facility] [place] [facility] [address] [id number] [place] [address] Jun, [facility] [place] [facility] [address] [id number] [place] [address] Jun, [facility] [place] [facility] [address] [id number] [place] [address] Jun, [facility] [place] [facility] [address] [id number] [place] [address] Jun, [facility] [place] [facility] [address] [id number] [place] [address] Jun, [facility] [place] [facility] [address] [id number] [place] [address] May, [facility] [place] [facility] [address] [id number] [place] [address] May, [facility] [place] [facility] [address] [id number] [place] [address] 12 May, 2013 [facility] [place] [facility] [address] [id number] [place] [address] 06 May, 2013 [facility] [place] [facility] [address] [id number] [place] [address] May, [facility] [place] [facility] [address] [id number] [place] [address] Apr, [facility] [place] [facility] [address] [id number] [place] [address] Mar, [facility] [place] [facility] [address] [id number] [place] [address] Mar, [facility] [place] [facility] [address] [id number] [place] [address] Mar, [facility] [place] [facility] [address] [id number] [place] [address] Mar, [facility] [place] [facility] [address] [id number] [place] [address] Mar, [facility] [place] [facility] [address] [id number] [place] [address] Mar, [facility] [place] [facility] [address] [id number] [place] [address] Mar, [facility] [place] [facility] [address] [id number] [place] [address] Mar, [facility] [place] [facility] [address] [id number] [place] [address] Mar, [facility] [place] [facility] [address] [id number] [place] [address] Feb, [facility] [place] [facility] [address] [id number] [place] [address] Feb, [facility] [place] [facility] [address] [id number] [place] [address] Feb, [facility] [place] [facility] [address] [id number] [place] [address] January, [facility] [address] [id number] [place] [address] January, [facility] [address] [id number] [place] [address] January, [facility] [address] [id number] [place] [address] January, [facility] [address] [id number] [place] [address] Dec, [facility] [address] [id number] [place] [address] Dec, [facility] [address] [id number] [place] [address] Dec, [facility] [address] [id number] [place] [address] Dec, [facility] [address] [id number] [place] [address] Dec, [facility] [address] [id number] [place] [address] Dec, [facility] [address] [id number] [place] [address] Nov, [facility] [address] [id number] [place] [address] Oct, [facility] [address] [id number] [place] [address] Aug, [facility] [address] [id number] [place] [address] Aug, [facility] [address] [id number] [place] [address] Aug, [facility] [address] [id number] [place] [address] Aug, [facility] [place] [facility] [address] [id number] [place] [address] Aug, [facility] [place] [facility] [address] [id number] [place] [address] Aug, [facility] [place] [facility] [address] [id number] [place] [address] Aug, [facility] [place] [facility] [address] [id number] [place] [address] Aug, [facility] [place] [facility] [address] [id number] [place] [address] Aug, [facility] [place] [facility] [address] [id number] [place] [address] Aug, [facility] [place] [facility] [address] [id number] [place] [address] Aug, [facility] [place] [facility] [address] [id number], [place] [address] Jul, [facility] [place] [facility] [address] [id number] [place] [address] Jul, [facility] [place] [facility] [address] [facility] [id number], [place] [address] Jul, [facility] [place] [facility] [address] [id number], [place] [address] Jul, [facility] [place] [facility] [address] [id number], [place] [address] Jul, [facility] [place] [facility] [address] [id number] [address] Jul, [facility] [place] [facility] [address] [id number], [place] [address] Jun, [facility] [place] [facility] [address] [id number], [place] [address] Jun, [facility] [place] [facility] [address] [id number], [place] [address] May, [facility] [address] [id number] [place] [address] Apr, [facility] [place] [facility] [address] [id number] [place] [address] Apr, [facility] [place] [facility] [address] [id number] [place] [address] Apr, [facility] [place] [facility] [address] [id number] [place] [address] Apr, [facility] [address] [id number] [place] [address] Apr, [facility] [place] [facility] [address] [id number] [place] [address] Mar, [facility] [address] [id number] [place] [address] Mar, [facility] [place] [facility] [address] [id number] [place] [address] January, [facility] [address] [id number] [place] [address] January, [facility] [address] [id number] [place] [address] Nov, [facility] [place] [facility] [address] [id number] [place] [address] Oct, [facility] [place] [facility] [address] [id number] [place] [address] Sep, [facility] [place] [facility] [address] [id number] [place] [address] Sep, [facility] [place] [facility] [address] [id number] [place] [address] Sep, [facility] [place] [facility] [address] [id number] [place] [address] Sep, [facility] [place] [facility] [address] [id number] [place] [address] Sep, [facility] [place] [facility] [address] [id number] [place] [address] Sep, [facility] [place] [facility] [address] [id number] [place] [address] Aug, [facility] [place] [facility] [address] [id number] [place] [address] Aug, [facility] [place] [facility] [address] [id number] [place] [address] Aug, [facility] [place] [facility] [address] [id number] [place] [address] Aug, [facility] [place] [facility] [address] [id number] [place] [address] Aug, [facility] [place] [facility] [address] [id number] [place] [address] Jul, [facility] [place] [facility] [address] [id number] [place] [address] Jul, [facility] [place] [facility] [address] [id number] [place] [address] Jul, [facility] [place] [facility] [address] [id number] [place] [address] Jun, [facility] [place] [facility] [address] [id number] [place] [address] Jun, [facility] [place] [facility] [address] [id number] [place] [address] Jun, [facility] [place] [facility] [address] [id number] [place] [address] January, [facility] [place] [facility] [address] [id number] [place] [address] Dec, [facility] [place] [facility] [address] [id number] [place] [address] Oct, [facility] [address] [facility] [id number], [place] [address] Oct, [facility] [address] [id number], [place] [address] Jun, [facility] [address] [id number], [place] [address] Aug, [facility] [address] [facility] [id number], [place] [address] Aug, [facility] [address] [facility] [id number], [place] [address] Jul, [facility] [address] [facility] [id number], [place] [address] Mar, IMMUNIZATIONS No Known Immunizations SOCIAL HISTORY Never Assessed REASON FOR VISIT Controlled Med Refill PLAN OF CARE VITAL SIGNS MEDICATIONS Medication Instructions Dosage Frequency Start Date End Date Duration Status Xanax 0.5 MG Orally 3 times a day 1 tablet 8h Nov, 03 days Active RESULTS No Results PROCEDURES No Known procedures INSTRUCTIONS MEDICATIONS ADMINISTERED No Known Medications MEDICAL (GENERAL) HISTORY Type Description Date Medical History Hypertension Medical History Chronic Obstructive pulmonary disease diagnosed 2008 in [place]-PFT not done previously Medical History Gastrointestinal disorder [...]
--- OUTSIDE RECORDS SUMMARY | 2018-03-28 12:23 | XMS REPORT ---
Author Author BRETT JOHNSON Organization [facility] Address [address] [place] [address] Care Team Providers Care Machine Operator Transplanter Name Role Phone ELIZABETH BRETT Unavailable PROBLEMS Type Condition ICD9-CM Code DRR08-SB Code Onset Dates Condition Status SNOMED Code Problem Chronic sinusitis, unspecified J32.9 Active 20739551 Problem Other chronic pain G89.29 Active 32492508 Problem Gastroesophageal reflux disease without esophagitis K21.9 Active 715335940 Problem Slow transit constipation K59.01 Active 40238326 Problem Coronary artery disease involving [place] coronary artery of [place] heart without angina pectoris I25.10 Active 9259401936336 Problem Agoraphobia with panic attacks F40.01 Active 813175020 Problem COPD with exacerbation J44.1 Active 967266627 Problem Pericardial effusion I31.3 Active 065496792 Problem Pleural effusion on left J90 Active 57047825 Problem Generalized anxiety disorder F41.1 Active 93431164 Problem Chronic obstructive pulmonary disease, unspecified COPD type J44.9 Active 43974464 Problem Hypertension, benign I10 Active 14485127 Problem Oral phase dysphagia R13.11 Active 207999791 Problem Vitamin B 12 deficiency E53.8 Active 34539666 Problem Chronic fatigue R53.82 Active 12079378 ALLERGIES No Information ENCOUNTERS Encounter Location Date Diagnosis [facility] [id number] [place] [address] 01776- 5923 18 Feb, 2018 Coronary artery disease involving [place] coronary artery of [place] heart without angina pectoris I25.10 ; Vitamin B 12 deficiency E53.8 ; Slow transit constipation K59.01 ; Generalized anxiety disorder F41.1 and Breast cancer screening by mammogram Z12.31 [facility] [id number] [address] 05 Feb, 2018 Flank pain R10.9 [facility] [id number] [place] [address] 64725- 5055 January, [facility] [address], [place] [address] January, Chronic obstructive pulmonary disease, unspecified COPD type J44.9 ; Pleural effusion on left J90 ; Pericardial effusion I31.3 and Generalized anxiety disorder F41.1 [facility] [address], [place] [address] January, Gastroenteritis K52.9 [facility] [address], [place] [address] 7798 January, Flank pain R10.9 [facility] [id number] [place] [address] 95104- 1173 January, [address] [id number] [place] [address] Dec [facility] [address], [place] [address] 4317 Dec, [facility] [address], [place] [address] 5254 Dec, [facility] [address], [place] [address] 5582 Dec, [facility] [address], [place] [address] 3987 Dec, [facility] [address], [place] [address] 0281 Dec, Flank pain R10.9 [facility] [address], [place] [address] 3817 Dec, [facility] [address], [place] [address] 6773 Nov, [facility] [address], [place] [address] 2624 Nov, [facility] [address], [place] [address] 0337 Nov, [facility] [id number] [place] [address] 88385- 5083 Nov, Pericardial effusion I31.3 ; Agoraphobia with panic attacks F40.01 and Vitamin B 12 deficiency E53.8 [facility] [id number] [place] [address] 28295- 8562 Nov, [facility] [id number] [place] [address] 99773- 2323 Nov, Pneumonia of both lungs due to infectious organism, unspecified part of lung J18.9 and Flank pain R10.9 [place] [id number] [place] [address] 72570- 8581 Nov, Pneumonia of both lungs due to infectious organism, unspecified part of lung J18.9 and Gastroenteritis K52.9 [facility] [id number] [place] [address] 68946- 8893 Oct, Pneumonia of both lungs due to infectious organism, unspecified part of lung J18.9 and Vitamin B 12 deficiency E53.8 [facility] [address] [id number] Oct, [facility] [id number] [place] [address] 55334- 7319 Oct, [facility] [id number] [place] [address] 98403- 9980 Oct, [facility] [id number] [place] [address] 60660- 6484 Oct, Flank pain R10.9 [facility] [id number] [place] [address] 56536- 9063 Oct, Other chronic pain G89.29 and Unspecified abdominal pain R10.9 [facility] [id number] [place] [address] 21961- 7713 Sep, Flank pain R10.9 [facility] [address] [place] [address] 95057- 3656 Sep, [facility] [id number] [place] [address] 62423- 9819 Sep, [facility] [id number] [place] [address] 10764- 8537 Sep, Acute non-recurrent maxillary sinusitis J01.00 [facility] [id number] [place] [address] 06903- 1313 Sep, Acute non-recurrent maxillary sinusitis J01.00 and Vitamin B 12 deficiency E53.8 [facility] [id number] [place] [address] 39253- 6681 Sep, [facility] [id number] [place] [address] 16929- 4184 Sep, [facility] [id number] [place] [address] 22938- 1405 Sep, [facility] [id number] [place] [address] 58090- 3913 Sep, COPD with exacerbation J44.1 [facility] [id number] [place] [address] 77083- 6325 Sep, Chronic obstructive pulmonary disease, unspecified COPD type J44.9 [facility] [id number] [place] [address] 77428- 1999 Aug, Flank pain R10.9 [facility] [id number] [place] [address] 96361- 7002 Jul, Flank pain R10.9 and Vitamin B 12 deficiency E53.8 [facility] [id number] [place] [address] 58871- 0184 Jul, [facility] [id number] [place] [address] 15914- 9191 Jun, Gastroenteritis K52.9 [facility] [id number] [place] [address] 68667- 0113 18 May, 2017 Gastroenteritis K52.9 and Vitamin B 12 deficiency E53.8 [facility] [id number] [place] [address] 92237- 7488 Apr, Allergic conjunctivitis of left eye H10.12 and Chronic fatigue R53.82 [address] [address] 14930- 3351 Apr, Chronic sinusitis, unspecified J32.9 [facility] [id number] [place] [address] 62281- 4631 Apr, [place] [id number] [place] [address] 43389- 6281 Feb, [place] [id number] [place] [address] 28603- 9443 January, [place] [id number] [place] [address] 46251- 4688 Dec, [facility] [id number] [place] [address] 34876- 5736 Oct, [place] [id number] [place] [address] 46447- 2050 Sep, Oral phase dysphagia R13.11 and Vitamin B 12 deficiency E53.8 [place] [id number] [place] [address] 31263- 8776 Sep, [facility] [id number] [place] [address] 26166- 2010 Jul, [address] [id number] [place] [address] 06022- 9875 Jul, [place] [id number] [place] [address] 87674- 3002 Jun, Bronchitis J40 ; Generalized anxiety disorder F41.1 and Chronic obstructive pulmonary disease, unspecified COPD type J44.9 [place] [id number] [place] [address] 14554- 4561 18 Jun, 2016 [facility] [id number] [place] [address] 83955- 3300 14 Jun, 2016 [facility] [id number] [place] [address] 05524- 3249 13 Jun, 2016 [facility] [id number] [place] [address] 98736- 9875 May, Vitamin B 12 deficiency E53.8 ; Essential (primary) hypertension I10 ; Generalized anxiety disorder F41.1 ; Pain in joint, ankle and foot 719.47 ; Arthritis M19.90 ; Chronic obstructive pulmonary disease, unspecified COPD type J44.9 and Encounter for immunization Z23 [facility] [id number] [place] [address] 30615- 5373 Apr, [facility] [address] 82989- 8431 Apr, [facility] [id number] [place] [address] 81423- 6821 Mar, [facility] [id number] [place] [address] 06735- 4553 January, [facility] [id number] [place] [address] 43833- 6181 Dec, [facility] [id number] [place] [address] 92398- 5618 Oct, [facility] [id number] [place] [address] 29706- 2581 Oct, [facility] [id number] [place] [address] 87262- 5147 Oct, Hypertension, benign I10 and Vitamin B 12 deficiency E53.8 [facility] [id number] [place] [address] 24764- 1773 Oct, [facility] [address] [place] [address]- 7051 Oct, [address] [id number] [place] [address] 23573- 8918 Oct, Irritable bowel syndrome with diarrhea K58.0 [place] [id number] [place] [address] 11361- 7946 Oct, [address] [address] 68172- 5566 Oct, Vitamin B 12 deficiency E53.8 ; Hypertension, benign I10 and Chronic obstructive pulmonary disease, unspecified COPD type J44.9 [address] 81336- 3049 Sep, Irritable bowel syndrome with diarrhea K58.0 ; Hypertension , benign I10 ; Chronic obstructive pulmonary disease, unspecified COPD type J44.9 ; Edema, unspecified type R60.9 ; Vision changes H53.9 and Vitamin B 12 deficiency E53.8 [place] [id number] [place] [address] 28858- 1431 Sep, [address] [address] 63993- 4626 Jul, Degenerative disc disease 722.6 [place] [id number] [place] [address] 63231- 8808 Jun, Pain in right leg M79.604 ; Encounter for immunization Z23 and Pain of left leg M79.605 [place] [id number] [place] [address] 93506- 1353 Jun, [place] [address] 56280- 6427 Jun, [place] [id number] [place] [address] 80266- 4075 Jun, Degenerative disc disease 722.6 [place] [id number] [place] [address] 87320- 6166 Jun, [facility] [address] [place] [address] 45769- 6911 28 May, 2015 Seizures 780.39 and Autonomic peripheral neuropathy 337.9 [facility] [id number] [place] [address] 28444- 5684 18 May, 2015 [facility] [id number] [place] [address] 71835- 0417 May, [facility] [id number] [place] [address] 74139- 7424 May, Degenerative disc disease 722.6 [facility] [address] 324263- 2667 May, [facility] [id number] [place] [address] 24688- 5357 Mar, [facility] [address] 75027- 3579 Mar, Degenerative disc disease 722.6 ; Spinal stenosis 724.00 and HTN (hypertension) 401.9 [facility] [id number] [place] [address] 954299- 7169 Feb, Cutaneous horn 702.8 [facility] [id number] [place] [address] 83741- 0086 Feb, Fatigue 780.79 [facility] [id number] [place] [address] 33663- 2016 Feb, Fatigue 780.79 ; Arthritis 716.90 ; Spinal stenosis 724.00 ; Sinusitis 473.9 and Cutaneous horn 702.8 [facility] [id number] [place] [address] 30480- 0066 January, [facility] [id number] [place] [address] 91665- 2471 Dec, [facility] [id number] [place] [address] 30837- 2110 Dec, [facility] [place] [facility] [address] [id number] [place] [address]- 0246 Nov, [facility] [place] [facility] [address] [id number] [place] [address]- 1970 Nov, [facility] [place] [facility] [address] [id number] [place] [address]- 7379 Oct, [facility] [place] [facility] [address] [id number] [place] [address]- 5246 Oct, [facility] [place] [facility] [address] [id number] [place] [address]- 3924 Oct, [facility] [place] [facility] [address] [id number] [place] [address]- 9259 Oct, [facility] [place] [facility] [address] [id number] [place] [address]- 9771 Oct, [facility] [place] [facility] [address] [id number] [place] [address]- 7984 Oct, [facility] [place] [facility] [address] [id number] [place] [address]- 8812 Sep, [facility] [place] [facility] [address] [id number] [place] [address]- 7169 Sep, [facility] [place] [facility] [address] [id number] [place] [address]- 3372 Sep, [facility] [place] [facility] [address] [id number] [place] [address]- 8979 Sep, [facility] [place] [facility] [address] [id number] [place] [address]- 2625 Sep, [facility] [place] [facility] [address] [id number] [place] [address]- 0896 Sep, [facility] [place] [facility] [address] [id number] [place] [address]- 8667 Sep, [facility] [place] [facility] [address] [id number] [place] [address]- 2975 Sep, [facility] [address] [id number] [place] [address]- 4320 Sep, [facility] [place] [facility] [address] [id number] [place] [address]- 5836 Sep, [facility] [address] [id number] [place] [address]- 5019 Sep, [facility] [address] [id number] [place] [address]- 6145 Sep, [facility] [address] [id number] [place] [address]- 0676 Sep, [facility] [address] [id number] [place] [address]- 3205 Sep, [facility] [address] [id number] [place] [address]- 6541 Aug, [facility] [address] [id number] [place] [address]- 5494 Aug, [facility] [address] [id number] [place] [address]- 5975 Aug, [facility] [address] [id number] [place] [address]- 5525 Aug, [facility] [place] [facility] [address] [id number] [place] [address]- 1965 Jul, [facility] [place] [facility] [address] [id number] [place] [address]- 1505 Jul, [facility] [place] [facility] [address] [id number] [place] [address]- 5334 May, [facility] [place] [facility] [address] [id number] [place] [address]- 9083 May, [facility] [place] [facility] [address] [id number] [place] [address]- 8245 May, [facility] [place] [facility] [address] [id number] [place] [address]- 0085 May, [facility] [place] [facility] [address] [id number] [place] [address]- 8874 May, [facility] [place] [facility] [address] [id number] [place] [address]- 8344 May, [facility] [place] [facility] [address] [id number] [place] [address]- 1366 Apr, [facility] [place] [facility] [address] [id number] [place] [address]- 6294 Apr, [facility] [place] [facility] [address] [id number] [place] [address]- 5156 Mar, [facility] [place] [facility] [address] [id number] [place] [address]- 3785 Mar, [facility] [place] [facility] [address] [id number] [place] [address]- 3609 Mar, [facility] [place] [facility] [address] [id number] [place] [address]- 4050 Mar, [facility] [place] [facility] [address] [id number] [place] [address]- 9852 Mar, [facility] [place] [facility] [address] [id number] [place] [address]- 5905 Mar, [facility] [place] [facility] [address] [id number] [place] [address]- 8070 Mar, [facility] [place] [facility] [address] [id number] [place] [address]- 9467 Mar, [facility] [place] [facility] [address] [id number] [place] [address]- 0905 Feb, [facility] [place] [facility] [address] [id number] [place] [address]- 5152 Feb, [facility] [place] [facility] [address] [id number] [place] [address]- 8656 January, [facility] [address] [id number] [place] [address]- 6698 January, [facility] [place] [facility] [address] [id number] [place] [address]- 9661 January, [facility] [place] [facility] [address] [id number] [place] [address]- 1104 January, [facility] [place] [facility] [address] [id number] [place] [address]- 8804 Dec, [facility] [place] [facility] [address] [id number] [place] [address]- 2424 Dec, [facility] [place] [facility] [address] [id number] [place] [address]- 7807 Oct, [facility] [place] [facility] [address] [id number] [place] [address]- 5709 Oct, [facility] [place] [facility] [address] [id number] [place] [address]- 2693 Oct, [facility] [place] [facility] [address] [id number] [place] [address]- 4784 Oct, [facility] [place] [facility] [address] [facility] [id number] [place] [address]- 3904 Sep, [facility] [place] [facility] [address] [id number] [place] [address]- 1333 Sep, [facility] [place] [facility] [address] [id number] [place] [address]- 3214 Aug, [facility] [place] [facility] [address] [id number] [place] [address]- 0513 Aug, [facility] [place] [facility] [address] [id number] [place] [address]- 6147 Aug, [facility] [place] [facility] [address] [id number] [place] [address]- 6777 Aug, [facility] [place] [facility] [address] [id number] [place] [address]- 8894 Aug, [facility] [place] [facility] [address] [id number] [place] [address]- 7685 Aug, [facility] [place] [facility] [address] [id number] [place] [address]- 6964 Aug, [facility] [place] [facility] [address] [id number] [place] 1199 Aug, [facility] [place] [facility] [address] [id number] [place] [address]- 7104 Aug, [facility] [place] [facility] [address] [id number] [place] [address]- 9986 Aug, [facility] [place] [facility] [address] [id number] [place] [address]- 5484 Jul, [facility] [place] [facility] [address] [id number] [place] [address]- 3340 Jul, [facility] [place] [facility] [address] [id number] [place] [address] Jun, [facility] [place] [facility] [address] [id number] [place] [address] Jun, [facility] [place] [facility] [address] [id number] [place] [address] Jun, [facility] [place] [facility] [address] [id number] [place] [address] Jun, [facility] [place] [facility] [address] [id number] [place] [address] Jun, [facility] [place] [facility] [address] [id number] [place] [address] May, [facility] [place] [facility] [address] [id number] [place] [address] May, [facility] [place] [facility] [address] [id number] [place] [address] 12 May, 2013 [facility] [place] [facility] [address] [id number] [place] [address] 06 May, 2013 [facility] [place] [facility] [address] [id number] [place] [address] May, [facility] [place] [facility] [address] [id number] [place] [address] Apr, [facility] [place] [facility] [address] [id number] [place] [address] Mar, [facility] [place] [facility] [address] [id number] [place] [address] Mar, [facility] [place] [facility] [address] [id number] [place] [address] Mar, [facility] [place] [facility] [address] [id number] [place] [address] Mar, [facility] [place] [facility] [address] [id number] [place] [address] Mar, [facility] [place] [facility] [address] [id number] [place] [address] Mar, [facility] [place] [facility] [address] [id number] [place] [address] Mar, [facility] [place] [facility] [address] [id number] [place] [address] Mar, [facility] [place] [facility] [address] [id number] [place] [address] Mar, [facility] [place] [facility] [address] [id number] [place] [address] Feb, [facility] [place] [facility] [address] [id number] [place] [address] Feb, [facility] [place] [facility] [address] [id number] [place] [address] Feb, [facility] [place] [facility] [address] [id number] [place] [address] January, [facility] [address] [id number] [place] [address] January, [facility] [address] [id number] [place] [address] January, [facility] [address] [id number] [place] [address] January, [facility] [address] [id number] [place] [address] Dec, [facility] [address] [id number] [place] [address] Dec, [facility] [address] [id number] [place] [address] Dec, [facility] [address] [id number] [place] [address] Dec, [facility] [address] [id number] [place] [address] Dec, [facility] [address] [id number] [place] [address] Dec, [facility] [address] [id number] [place] [address] Nov, [facility] [address] [id number] [place] [address] Oct, [facility] [address] [id number] [place] [address] Aug, [facility] [address] [id number] [place] [address] Aug, [facility] [address] [id number] [place] [address] Aug, [facility] [address] [id number] [place] [address] Aug, [facility] [place] [facility] [address] [id number] [place] [address] Aug, [facility] [place] [facility] [address] [id number] [place] [address] Aug, [facility] [place] [facility] [address] [id number] [place] [address] Aug, [facility] [place] [facility] [address] [id number] [place] [address] Aug, [facility] [place] [facility] [address] [id number] [place] [address] Aug, [facility] [place] [facility] [address] [id number] [place] [address] Aug, [facility] [place] [facility] [address] [id number] [place] [address] Aug, [facility] [place] [facility] [address] [id number], [place] [address] Jul, [facility] [place] [facility] [address] [id number] [place] [address] Jul, [facility] [place] [facility] [address] [facility] [id number], [place] [address] Jul, [facility] [place] [facility] [address] [id number], [place] [address] Jul, [facility] [place] [facility] [address] [id number], [place] [address] Jul, [facility] [place] [facility] [address] [id number] [address] Jul, [facility] [place] [facility] [address] [id number], [place] [address] Jun, [facility] [place] [facility] [address] [id number], [place] [address] Jun, [facility] [place] [facility] [address] [id number], [place] [address] May, [facility] [address] [id number] [place] [address] Apr, [facility] [place] [facility] [address] [id number] [place] [address] Apr, [facility] [place] [facility] [address] [id number] [place] [address] Apr, [facility] [place] [facility] [address] [id number] [place] [address] Apr, [facility] [address] [id number] [place] [address] Apr, [facility] [place] [facility] [address] [id number] [place] [address] Mar, [facility] [address] [id number] [place] [address] Mar, [facility] [place] [facility] [address] [id number] [place] [address] January, [facility] [address] [id number] [place] [address] January, [facility] [address] [id number] [place] [address] Nov, [facility] [place] [facility] [address] [id number] [place] [address] Oct, [facility] [place] [facility] [address] [id number] [place] [address] Sep, [facility] [place] [facility] [address] [id number] [place] [address] Sep, [facility] [place] [facility] [address] [id number] [place] [address] Sep, [facility] [place] [facility] [address] [id number] [place] [address] Sep, [facility] [place] [facility] [address] [id number] [place] [address] Sep, [facility] [place] [facility] [address] [id number] [place] [address] Sep, [facility] [place] [facility] [address] [id number] [place] [address] Aug, [facility] [place] [facility] [address] [id number] [place] [address] Aug, [facility] [place] [facility] [address] [id number] [place] [address] Aug, [facility] [place] [facility] [address] [id number] [place] [address] Aug, [facility] [place] [facility] [address] [id number] [place] [address] Aug, [facility] [place] [facility] [address] [id number] [place] [address] Jul, [facility] [place] [facility] [address] [id number] [place] [address] Jul, [facility] [place] [facility] [address] [id number] [place] [address]- [address] Jul, [facility] [place] [facility] [address] [id number] [place] [address] Jun, [facility] [place] [facility] [address] [id number] [place] [address] Jun, [facility] [place] [facility] [address] [id number] [place] [address] Jun, [facility] [place] [facility] [address] [id number] [place] [address] January, [facility] [place] [facility] [address] [id number] [place] [address] Dec, [facility] [place] [facility] [address] [id number] [place] [address] Oct, [facility] [address] [facility] [id number], [place] [address] Oct, [facility] [address] [id number], [place] [address] Jun, [facility] [address] [facility] [id number], [place] [address] Aug, [facility] [address] [facility] [id number], [place] [address] Aug, [facility] [address] [facility] [id number], [place] [address] Jul, [facility] [address] [facility] [id number], [place] [address] Mar, IMMUNIZATIONS No Known Immunizations SOCIAL HISTORY Never Assessed REASON FOR VISIT Requesting medication PLAN OF CARE VITAL SIGNS MEDICATIONS Medication Instructions Dosage Frequency Start Date End Date Duration Status PredniSONE 20 mg Orally Once a day 2 tablets 24h Sep, Sep, 05 days Active RESULTS No Results PROCEDURES No Known procedures INSTRUCTIONS MEDICATIONS ADMINISTERED No Known Medications MEDICAL (GENERAL) HISTORY Type Description Date Medical History Hypertension Medical History Chronic Obstructive pulmonary disease diagnosed 2008 in [place]-PFT not done previously Medical History Gastrointestinal disorder [...]
--- OUTSIDE RECORDS SUMMARY | 2018-03-28 12:24 | XMS REPORT ---
Author Author BRETT JOHNSON Organization [facility] Address [address] [place] [address] Care Team Providers Care Airplane Navigator Name Role Phone BRETT JOHNSON Unavailable PROBLEMS Type Condition ICD9-CM Code TRU82-OE Code Onset Dates Condition Status SNOMED Code Problem Oral phase dysphagia R13.11 Active 028576652 Problem Chronic sinusitis, unspecified J32.9 Active 19893834 Problem Chronic fatigue R53.82 Active 28739437 Problem Hypertension, benign I10 Active 82466289 Problem Vitamin B 12 deficiency E53.8 Active 63172322 Problem Generalized anxiety disorder F41.1 Active 76151201 Problem Chronic obstructive pulmonary disease, unspecified COPD type J44.9 Active 23790711 Problem Pericardial effusion I31.3 Active 256298021 Problem Pleural effusion on left J90 Active 66910311 Problem Other chronic pain G89.29 Active 59759891 Problem Gastroesophageal reflux disease without esophagitis K21.9 Active 796489034 Problem Agoraphobia with panic attacks F40.01 Active 495520858 Problem COPD with exacerbation J44.1 Active 835706532 ALLERGIES No Information ENCOUNTERS Encounter Location Date Diagnosis [place] [address], [place] [address] Feb, [place] [address] [place] [id number] [place] [address] 24914- 5893 Feb, Flank pain R10.9 [place] [address], [place] [address] 6[address] January, [place] [address] [place] [id number] [place] [address] 56693- 3420 January, Chronic obstructive pulmonary disease, unspecified COPD type J44.9 ; Pleural effusion on left J90 ; Pericardial effusion I31.3 and Generalized anxiety disorder F41.1 [place] [address], [place] [address] 67[address] 10 Jan, 2018 Gastroenteritis K52.9 [facility] [id number] [place] [address] 96083- 9775 January, Flank pain R10.9 [facility] [address], [place] [address] January, [facility] [id number] [id number] [place] [address] Dec [facility] [address], [place] [address] 6[address] Dec, [facility] [id number] [place] [address] 25099- 3081 Dec, [facility] [address], [place] [address] 1053 Dec, [facility] [id number] [place] [address] 62769- 1382 Dec, [facility] [address], [place] [address] 7529 Dec, Flank pain R10.9 [facility] [address], [place] [address] 9239 Dec, [facility] [address], [place] [address] 9821 Nov, [facility] [address], [place] [address] 8854 Nov, [facility] [address], [place] [address] 68[address] Nov, [facility] [id number] [place] [address] 95472- 1551 14 Nov, 2017 Pericardial effusion I31.3 ; Agoraphobia with panic attacks F40.01 and Vitamin B 12 deficiency E53.8 [facility] [address], [place] [address] 2836 Nov, [facility] [id number] [place] [address] 38716- 4622 Nov, Pneumonia of both lungs due to infectious organism, unspecified part of lung J18.9 and Flank pain R10.9 [facility] [id number] [place] [address] 77737- 3790 Nov, Pneumonia of both lungs due to infectious organism, unspecified part of lung J18.9 and Gastroenteritis K52.9 [facility] [id number] [place] [address] 36789- 9101 Oct, Pneumonia of both lungs due to infectious organism, unspecified part of lung J18.9 and Vitamin B 12 deficiency E53.8 [facility] [address] [place] [id number] [place] [address] [id number] Oct, [facility] [id number] [place] [address] 23163- 9574 Oct, [facility] [id number] [place] [address] 97705- 3141 Oct, [facility] [id number] [place] [address] 25345- 4768 Oct, Flank pain R10.9 [facility] [id number] [place] [address] 67208- 6166 Oct, Other chronic pain G89.29 and Unspecified abdominal pain R10.9 [facility] [id number] [place] [address] 58341- 0034 Sep, Flank pain R10.9 [facility] [id number] [place] [address] 46216- 7207 Sep, [facility] [id number] [place] [address] 36959- 3697 Sep, [facility] [id number] [place] [address] 08972- 6280 Sep, Acute non-recurrent maxillary sinusitis J01.00 [facility] [id number] [place] [address] 04105- 1153 Sep, Acute non-recurrent maxillary sinusitis J01.00 and Vitamin B 12 deficiency E53.8 [facility] [id number] [place] [address] 65558- 5471 Sep, [facility] [address] 77620- 0007 Sep, [facility] [address] [place] [id number] [place] [address] 89020- 8872 Sep, [facility] [address] 48680- 6294 Sep, COPD with exacerbation J44.1 [place] [address] [place] [address] [id number] [place] [address] 80669- 3666 Sep, Chronic obstructive pulmonary disease, unspecified COPD type J44.9 [facility] [id number] [place] [address] 16129- 7524 Aug, Flank pain R10.9 [place] [address] [place] [address] [id number] [place] [address] 77276- 9735 Jul, Flank pain R10.9 and Vitamin B 12 deficiency E53.8 [place] [address] [place] [id number] [place] [address] 87540- 4598 Jul, [facility] [address] [place] [id number] [place] [address] 61255- 4474 Jun, Gastroenteritis K52.9 [place] [address] [place] [address] [id number] [place] [address] 16475- 2484 May, Gastroenteritis K52.9 and Vitamin B 12 deficiency E53.8 [place] [address] [place] [id number] [place] [address] 50836- 2656 Apr, Allergic conjunctivitis of left eye H10.12 and Chronic fatigue R53.82 [place] [address] [place] [id number] [place] [address] 35485- 7836 Apr, Chronic sinusitis, unspecified J32.9 [facility] [address] [place] [address] [id number] [place] [address] 78208- 0080 Apr, [facility] [id number] [place] [address] 37517- 3879 Feb, [facility] [id number] [place] [address] 95913- 5036 January, [facility] [id number] [place] [address] 32449- 0329 Dec, [facility] [id number] [place] [address] 22969- 3659 Oct, [facility] [id number] [place] [address] 12157- 9636 Sep, Oral phase dysphagia R13.11 and Vitamin B 12 deficiency E53.8 [facility] [address] [place] [id number] [place] [address] 25960- 6223 Sep, [facility] [id number] [place] [address] 00513- 1684 Jul, [facility] [id number] [place] [address] 41547- 4604 Jul, [facility] [address] [id number] [place] [address] 35602- 8739 Jun, Bronchitis J40 ; Generalized anxiety disorder F41.1 and Chronic obstructive pulmonary disease, unspecified COPD type J44.9 [facility] [address] [place] [address] [id number] [place] [address] 52430- 9342 Jun, [facility] [address] [id number] [place] [address] 97387- 3407 Jun, [facility] [address] [id number] [place] [address] 70987- 5311 Jun, [facility] [address] [place] [id number] [place] [address] 36412- 0061 May, Vitamin B 12 deficiency E53.8 ; Essential (primary) hypertension I10 ; Generalized anxiety disorder F41.1 ; Pain in joint, ankle and foot 719.47 ; Arthritis M19.90 ; Chronic obstructive pulmonary disease, unspecified COPD type J44.9 and Encounter for immunization Z23 [place] [address] 55506- 7734 Apr, [facility] [address] 77288- 8226 Apr, [place] [address] 72578- 4691 Mar, [place] [address] 88179- 1881 January, [place] [address] 36059- 6499 Dec, [facility] [address] [place] [id number] [place] [address] 12373- 5256 Oct, [place] [address] 49583- 1704 Oct, [place] [address] [place] [address] [id number] [place] [address] 15669- 8027 Oct, Hypertension, benign I10 and Vitamin B 12 deficiency E53.8 [facility] [address] [place] [id number] [place] [address] 02974- 0221 Oct, [place] [address] [place] [id number] [place] [address] 30212- 4872 Oct, [facility] [address] [place] [address] [id number] [place] [address] 07040- 0139 Oct, Irritable bowel syndrome with diarrhea K58.0 [place] [address] 12468- 9494 Oct, [place] [address] [place] [id number] [place] [address] 40807- 1252 Oct, Vitamin B 12 deficiency E53.8 ; Hypertension, benign I10 and Chronic obstructive pulmonary disease, unspecified COPD type J44.9 [place] [address] [place] [id number] [place] [address] 37940- 5237 Sep, Irritable bowel syndrome with diarrhea K58.0 ; Hypertension , benign I10 ; Chronic obstructive pulmonary disease, unspecified COPD type J44.9 ; Edema, unspecified type R60.9 ; Vision changes H53.9 and Vitamin B 12 deficiency E53.8 [place] [address] 35337- 3811 Sep, [place] [address] [place] [id number] [place] [address] 91451- 6936 Jul, Degenerative disc disease 722.6 [place] [address] 02958- 5702 Jun, Pain in right leg M79.604 ; Encounter for immunization Z23 and Pain of left leg M79.605 [place] [address] [place] [id number] [place] [address] 41405- 5644 Jun, [place] [address] [place] [id number] [place] [address] 71753- 0832 Jun, [place] [address] [place] [id number] [place] [address] 64213- 9911 Jun, Degenerative disc disease 722.6 [place] [address] [place] [id number] [place] [address] 11675- 8806 Jun, [place] [address] 80143- 0565 May, Seizures 780.39 and Autonomic peripheral neuropathy 337.9 [place] [address] [place] [id number] [place] [address] 03734- 9837 May, [place] [address] [place] [id number] [place] [address] 94489- 1115 May, [facility] [address] [place] [id number] [place] [address] 511379- 5284 May, Degenerative disc disease 722.6 [facility] [address] [place] [id number] [place] [address] 52838- 8676 May, [facility] [address] 83802- 9597 Mar, [facility] [address] [place] [id number] [place] [address] 67669- 3239 Mar, Degenerative disc disease 722.6 ; Spinal stenosis 724.00 and HTN (hypertension) 401.9 [facility] [address] [place] [id number] [place] [address] 95125- 3088 Feb, Cutaneous horn 702.8 [facility] [address] [id number] [place] [address] 49376- 0108 Feb, Fatigue 780.79 [facility] [address] [place] [id number] [place] [address] 44937- 9390 Feb, Fatigue 780.79 ; Arthritis 716.90 ; Spinal stenosis 724.00 ; Sinusitis 473.9 and Cutaneous horn 702.8 [facility] [id number] [place] [address] 87095- 1296 January, [facility] [address] [id number] [place] [address] 10528- 9718 Dec, [facility] [address] [place] [id number] [place] [address] 85250- 6935 Dec, [facility] [address] [id number] [place] [address] 54816- 2086 Nov, [facility] [address] [place] [id number] [place] [address] 92499- 6426 Nov, [facility] [address] [place] [id number] [place] [address] 55828- 4493 Oct, [facility] [place] [facility] [address] [id number] [place] [address]- 3016 Oct, [facility] [place] [facility] [address] [id number] [place] [address]- 1204 Oct, [facility] [place] [facility] [address] [id number] [place] [address]- 5267 Oct, [facility] [place] [facility] [address] [id number] [place] [address]- 0099 Oct, [facility] [place] [facility] [address] [id number] [place] [address]- 9923 Oct, [facility] [place] [facility] [address] [id number] [place] [address]- 1890 Sep, [facility] [address] [id number] [place] [address]- 0246 Sep, [facility] [place] [facility] [address] [id number] [place] [address]- 2313 Sep, [facility] [place] [facility] [address] [id number] [place] [address]- 2812 Sep, [facility] [place] [facility] [address] [id number] [place] [address]- 9804 Sep, [facility] [place] [facility] [address] [id number] [place] [address]- 8445 Sep, [facility] [place] [facility] [address] [id number], [place] [address]- 6937 Sep, [facility] [place] [facility] [address] [id number] [place] [address]- 1333 Sep, [facility] [place] [facility] [address] [id number] [place] [address]- 4957 Sep, [facility] [place] [facility] [address] [id number], [place] [address]- 4577 Sep, [facility] [place] [facility] [address] [id number] [place] [address]- 0365 16 Sep, 2014 [facility] [place] [facility] [address] [id number] [place] [address]- 1407 Sep, [facility] [place] [facility] [address] [id number] [place] [address]- 5824 Sep, [facility] [place] [facility] [address] [id number] [place] [address]- 4570 Sep, [facility] [place] [facility] [address] [id number] [place] [address]- 6637 Aug, [facility] [place] [facility] [address] [id number] [place] [address]- 5096 Aug, [facility] [place] [facility] [address] [id number] [place] [address]- 3029 Aug, [facility] [place] [facility] [address] [id number] [place] [address]- 0385 Aug, [facility] [place] [facility] [address] [id number] [place] [address]- 7496 Jul, [facility] [place] [facility] [address] [id number] [place] [address]- 0134 Jul, [facility] [place] [facility] [address] [id number] [place] [address]- 1648 23 May, 2014 [facility] [place] [facility] [address] [id number] [place] [address]- 7595 23 May, 2014 [facility] [place] [facility] [address] [id number] [place] [address]- 5051 23 May, 2014 [facility] [place] [facility] [address] [id number] [place] [address] 2541 23 May, 2013 [facility] [place] [facility] [address] [id number] [place] [address]- 6933 08 May, 2014 [facility] [place] [facility] [address] [id number] [place] [address]- 6750 May, [facility] [place] [facility] [address] [id number] [place] [address]- 0613 Apr, [facility] [place] [facility] [address] [id number] [place] [address]- 1841 Apr, [facility] [place] [facility] [address] [id number] [place] [address]- 0926 Mar, [facility] [place] [facility] [address] [id number] [place] [address]- 6867 Mar, [facility] [place] [facility] [address] [id number] [place] [address]- 0587 Mar, [facility] [place] [facility] [address] [id number] [place] [address]- 4736 Mar, [facility] [place] [facility] [address] [id number] [place] [address]- 5517 Mar, [facility] [place] [facility] [address] [id number] [place] [address]- 3686 Mar, [facility] [place] [facility] [address] [id number] [place] [address]- 2321 Mar, [facility] [place] [facility] [address] [id number] [place] [address]- 0233 Mar, [facility] [place] [facility] [address] [id number] [place] [address]- 8711 Feb, [facility] [place] [facility] [address] [id number] [place] [address]- 2279 Feb, [facility] [place] [facility] [address] [id number] [place] [address]- 6808 January, [facility] [place] [facility] [address] [id number] [place] [address]- 3401 January, [facility] [place] [facility] [address] [id number] [place] [address]- 7345 January, [facility] [place] [facility] [address] [id number] [place] [address]- 8878 January, [facility] [address] [id number] [place] [address]- 4486 Dec, [facility] [place] [facility] [address] [id number] [place] [address]- 5926 Dec, [facility] [place] [facility] [address] [id number] [place] [address]- 1786 Oct, [facility] [place] [facility] [address] [id number] [place] [address]- 1894 Oct, [facility] [place] [facility] [address] [id number] [place] [address]- 5126 Oct, [facility] [place] [facility] [address] [id number] [place] [address]- 7616 Oct, [facility] [place] [facility] [address] [id number] [place] [address]- 8444 Sep, [facility] [address] [id number] [place] [address]- 0746 Sep, [facility] [place] [facility] [address] [id number] [place] [address]- 8148 Aug, [facility] [address] [id number] [place] [address]- 4358 Aug, [facility] [place] [facility] [address] [id number] [place] [address] 2546 Aug, [facility] [place] [facility] [address] [id number] [place] [address]- 2545 Aug, [facility] [place] [facility] [address] [id number] [place] 3366 Aug, [facility] [place] [facility] [address] [id number] [place] [address]- 2546 Aug, [facility] [place] [facility] [address] [id number] [place]- 0300 Aug, [facility] [place] [facility] [address] [id number] [place] [address]- 1745 Aug, [facility] [place] [facility] [address] [id number] [place] [address]- 8890 Aug, [facility] [place] [facility] [address] [id number] [place] [address]- 3529 Aug, [facility] [place] [facility] [address] [id number] [place] [address]- 9283 Jul, [facility] [place] [facility] [address] [id number] [place] 6604 Jul, [facility] [place] [facility] [address] [id number] [place] [address]- 6874 Jun, [facility] [place] [facility] [address] [id number] [place] [address]- 4147 Jun, [facility] [place] [facility] [address] [id number] [place] [address]- 8797 Jun, [facility] [place] [facility] [address] [id number] [place] [address]- 5583 Jun, [facility] [place] [facility] [address] [id number], [place] [address]- 9997 Jun, [facility] [place] [facility] [address] [id number], [place] [address]- 7100 13 May, 2012 [facility] [place] [facility] [address] [id number], [place] [address]- 4763 13 May, 2012 [facility] [place] [facility] [address] [id number] [place] [address]- 5501 12 May, 2013 [facility] [place] [facility] [address] [id number] [place] [address]- 9876 06 Sep, 2012 [facility] [place] [facility] [address] [id number] [place] [address]- 5666 03 Sep, 2012 [facility] [place] [facility] [address] [id number] [place] [address]- 1322 Apr, [facility] [address] [id number] [place] [address]- 3494 Mar, [facility] [address] [id number] [place] [address]- 4289 Mar, [facility] [address] [id number] [place] [address] Mar, [facility] [address] [id number] [place] [address] Mar, [facility] [address] [id number] [place] [address] Mar, [facility] [address] [id number] [place] [address] Mar, [facility] [address] [id number] [place] [address] Mar, [facility] [address] [id number] [place] [address] Mar, [facility] [address] [id number] [place] [address] Mar, [facility] [address] [id number] [place] [address] Feb, [facility] [address] [id number] [place] [address] Feb, [facility] [place] [facility] [address] [id number] [place] [address] Feb, [facility] [place] [facility] [address] [id number] [place] [address] January, [facility] [place] [facility] [address] [id number] [place] [address] January, [facility] [address] [id number] [place] [address] January, [facility] [address] [id number] [place] [address] January, [facility] [address] [id number] [place] [address] 18 Dec, 2012 [facility] [place] [facility] [address] [id number] [place] [address] Dec, [facility] [address] [id number] [place] [address] Dec, [facility] [address] [id number] [place] [address] Dec, [facility] [address] [id number] [place] [address] Dec, [facility] [address] [id number] [place] [address] Dec, [facility] [address] [id number] [place] [address] Nov, [facility] [address] [id number] [place] [address] Oct, [facility] [address] [id number] [place] [address] Aug, [facility] [address] [id number] [place] [address] Aug, [facility] [address] [id number] [place] [address] Aug, [facility] [place] [facility] [address] [id number] [place] [address] Aug, [facility] [place] [facility] [address] [id number] [place] [address] Aug, [facility] [place] [facility] [address] [id number] [place] [address] Aug, [facility] [place] [facility] [address] [id number] [place] [address] Aug, [facility] [place] [facility] [address] [id number] [place] [address] Aug, [facility] [place] [facility] [address] [id number] [place] [address] Aug, [facility] [place] [facility] [address] [facility] [id number] [place] [address] Aug, [facility] [place] [facility] [address] [id number] [place] [address]- [address] Aug, [facility] [place] [facility] [address] [id number] [place] [address] Jul, [facility] [place] [facility] [address] [id number] [place] [address] Jul, [facility] [place] [facility] [address] [id number] [place] [address] Jul, [facility] [place] [facility] [address] [id number] [place] [address] Jul, [facility] [place] [facility] [address] [id number] [place] [address] Jul, [facility] [place] [facility] [address] [id number] [place] [address] Jul, [facility] [place] [facility] [address] [id number], [place] [address] Jun, [facility] [place] [facility] [address] [id number], [place] [address] Jun, [facility] [place] [facility] [address] [id number] [place] [address] May, [facility] [place] [facility] [address] [id number], [place] [address] Apr, [facility] [place] [facility] [address] [id number] [place] [address] Apr, [facility] [place] [facility] [address] [id number] [place] [address] Apr, [facility] [address] [id number] [place] [address] Apr, [facility] [address] [id number] [place] [address] Apr, [facility] [address] [id number] [place] [address] Mar, [facility] [address] [id number] [place] [address] Mar, [facility] [address] [id number] [place] [address] January, [facility] [address] [id number] [place] [address] January, [facility] [address] [id number] [place] [address] Nov, [facility] [address] [id number] [place] [address] Oct, [facility] [address] [id number] [place] [address] Sep, [facility] [address] [id number] [place] [address] Sep, [facility] [address] [id number] [place] [address] Sep, [facility] [address] [id number] [place] [address] Sep, [facility] [place] [facility] [address] [id number] [place] [address] Sep, [facility] [address] [id number] [place] [address] Sep, [facility] [address] [id number] [place] [address] Aug, [facility] [place] [facility] [address] [id number] [place] [address] 14 Aug, 2011 [facility] [place] [facility] [address] [id number] [place] [address] Aug, [facility] [place] [facility] [address] [id number] [place] [address] Aug, [facility] [place] [facility] [address] [id number] [place] [address] Aug, [facility] [place] [facility] [address] [id number] [place] [address] Jul, [facility] [place] [facility] [address] [id number] [place] [address] Jul, [facility] [place] [facility] [address] [id number] [place] [address] Jul, [facility] [place] [facility] [address] [id number] [place] [address] Jun, [facility] [place] [facility] [address] [id number] [place] [address] Jun, [facility] [place] [facility] [address] [id number] [place] [address] Jun, [facility] [place] [facility] [address] [id number] [place] [address] January, [facility] [place] [facility] [address] [id number], [place] [address] Dec, [facility] [place] [facility] [address] [id number] [place] [address] Oct, [facility] [place] [facility] [address] [id number] [place] [address] Oct, [facility] [place] [facility] [address] [id number] [place] [address] Jun, [facility] [place] [facility] [address] [id number], [place] [address] 14 Aug, 2009 [facility] [address] [facility] [id number] [place] [address] Aug, [facility] [address] [facility] [id number], [place] [address] Jul, [facility] [address] [facility] [id number], [place] [address] Mar, IMMUNIZATIONS No Known Immunizations SOCIAL HISTORY Never Assessed REASON FOR VISIT FYI only PLAN OF CARE VITAL SIGNS MEDICATIONS Medication Instructions Dosage Frequency Start Date End Date Duration Status Diflucan 150 MG Orally Once a day 1 tablet 24h Sep, Sep, 03 days Active [place] 5-325 MG Orally every 6 hrs 1 tablet as needed 6h Sep, Active RESULTS No Results PROCEDURES No Known procedures INSTRUCTIONS MEDICATIONS ADMINISTERED No Known Medications MEDICAL (GENERAL) HISTORY Type Description Date Medical History Hypertension Medical History Chronic Obstructive pulmonary disease diagnosed 2008 in [place]-PFT not done previously Medical History Gastrointestinal disorder [...]
--- OUTSIDE RECORDS SUMMARY | 2018-03-28 12:25 | XMS REPORT ---
Author Author BRETT JOHNSON Organization [facility] Address [address] [place] [address] Care Team Providers Care Laboratory Apparatus Glass Blower Name Role Phone BRETT JOHNSON Unavailable PROBLEMS Type Condition ICD9-CM Code HKV44-BB Code Onset Dates Condition Status SNOMED Code Problem Oral phase dysphagia R13.11 Active 510156607 Problem Chronic sinusitis, unspecified J32.9 Active 39015524 Problem Chronic fatigue R53.82 Active 18700983 Problem Hypertension, benign I10 Active 62219411 Problem Vitamin B 12 deficiency E53.8 Active 29856653 Problem Generalized anxiety disorder F41.1 Active 99248409 Problem Chronic obstructive pulmonary disease, unspecified COPD type J44.9 Active 30983755 Problem Pericardial effusion I31.3 Active 873036241 Problem Pleural effusion on left J90 Active 44752483 Problem Other chronic pain G89.29 Active 56514154 Problem Gastroesophageal reflux disease without esophagitis K21.9 Active 694847392 Problem Agoraphobia with panic attacks F40.01 Active 044945264 Problem COPD with exacerbation J44.1 Active 264919490 ALLERGIES No Information ENCOUNTERS Encounter Location Date Diagnosis [place] [id number], [place] [address] Feb, [place] [address] [place] [id number] [place] [address] 13699- 8113 Feb, Flank pain R10.9 [place] [id number], [place] [address] January, [place] [address] [id number] [place] [address] 47641- 8427 January, Chronic obstructive pulmonary disease, unspecified COPD type J44.9 ; Pleural effusion on left J90 ; Pericardial effusion I31.3 and Generalized anxiety disorder F41.1 [place] [id number], [place] [address] 10 Jan, 2018 Gastroenteritis K52.9 [facility] [id number] [place] [address] 62018- 5601 January, Flank pain R10.9 [facility] [id number], [place] [address] January, [facility] [id number] [id number] [place] [address] Dec [facility] [id number], [place] [address] Dec, [facility] [id number] [place] [address] 37321- 6887 Dec, [facility] [id number], [place] [address] 0726 Dec, [facility] [id number] [place] [address] 47084- 1177 Dec, [facility] [id number], [place] [address] 67[address] Dec, Flank pain R10.9 [facility] [id number], [place] [address] 8103 Dec, [facility] [id number], [place] [address] 7933 Nov, [facility] [id number], [place] [address] 2012 Nov, [facility] [id number], [place] [address] 9042 Nov, [facility] [id number] [place] [address] 66315- 5200 14 Nov, 2017 Pericardial effusion I31.3 ; Agoraphobia with panic attacks F40.01 and Vitamin B 12 deficiency E53.8 [facility] [id number], [place] [address] 6[address] Nov, [facility] [id number] [place] [address] 82812- 0464 Nov, Pneumonia of both lungs due to infectious organism, unspecified part of lung J18.9 and Flank pain R10.9 [facility] [id number] [place] [address] 11837- 3656 Nov, Pneumonia of both lungs due to infectious organism, unspecified part of lung J18.9 and Gastroenteritis K52.9 [facility] [id number] [place] [address] 34634- 1631 Oct, Pneumonia of both lungs due to infectious organism, unspecified part of lung J18.9 and Vitamin B 12 deficiency E53.8 [facility] [id number] [place] [address] [id number] Oct, [facility] [id number] [place] [address] 37821- 2626 Oct, [facility] [id number] [place] [address] 88217- 9314 Oct, [facility] [id number] [place] [address] 47570- 5184 Oct, Flank pain R10.9 [facility] [id number] [place] [address] 60871- 5649 Oct, Other chronic pain G89.29 and Unspecified abdominal pain R10.9 [facility] [id number] [place] [address] 00688- 6818 Sep, Flank pain R10.9 [facility] [id number] [place] [address] 06070- 6622 Sep, [facility] [id number] [place] [address] 42155- 9783 Sep, [facility] [id number] [place] [address] 04459- 8689 Sep, Acute non-recurrent maxillary sinusitis J01.00 [facility] [id number] [place] [address] 91821- 4264 Sep, Acute non-recurrent maxillary sinusitis J01.00 and Vitamin B 12 deficiency E53.8 [facility] [id number] [place] [address] 80411- 4987 Sep, [facility] [address] 07855- 0847 Sep, [facility] [address] [place] [address] [id number] [place] [address] 77838- 2852 Sep, [facility] [address] 41011- 2021 Sep, COPD with exacerbation J44.1 [place] [address] [id number] [place] [address] 44137- 0255 Sep, Chronic obstructive pulmonary disease, unspecified COPD type J44.9 [facility] [id number] [place] [address] 18221- 6928 Aug, Flank pain R10.9 [place] [address] [place] [address] [id number] [place] [address] 71021- 3709 Jul, Flank pain R10.9 and Vitamin B 12 deficiency E53.8 [place] [address] [place] [id number] [place] [address] 09042- 5531 Jul, [facility] [address] [place] [id number] [place] [address] 79576- 9453 Jun, Gastroenteritis K52.9 [place] [address] [address] [id number] [place] [address] 62048- 4768 May, Gastroenteritis K52.9 and Vitamin B 12 deficiency E53.8 [place] [address] [place] [address] [id number] [place] [address] 13769- 9049 Apr, Allergic conjunctivitis of left eye H10.12 and Chronic fatigue R53.82 [place] [address] [place] [id number] [place] [address] 82854- 8520 Apr, Chronic sinusitis, unspecified J32.9 [facility] [id number] [place] [address] 11515- 5638 Apr, [facility] [id number] [place] [address] 69528- 2752 Feb, [facility] [id number] [place] [address] 50610- 6338 January, [facility] [id number] [place] [address] 22157- 7955 Dec, [facility] [id number] [place] [address] 30939- 7218 Oct, [facility] [id number] [place] [address] 69271- 5966 Sep, Oral phase dysphagia R13.11 and Vitamin B 12 deficiency E53.8 [facility] [id number] [place] [address] 06601- 6875 Sep, [facility] [id number] [place] [address] 32852- 1093 Jul, [facility] [id number] [place] [address] 98097- 5329 Jul, [facility] [id number] [place] [address] 57358- 1674 Jun, Bronchitis J40 ; Generalized anxiety disorder F41.1 and Chronic obstructive pulmonary disease, unspecified COPD type J44.9 [facility] [address] [id number] [place] [address] 46756- 8317 Jun, [facility] [id number] [place] [address] 23661- 3357 Jun, [facility] [id number] [place] [address] 89046- 8106 Jun, [facility] [id number] [place] [address] 91835- 5246 May, Vitamin B 12 deficiency E53.8 ; Essential (primary) hypertension I10 ; Generalized anxiety disorder F41.1 ; Pain in joint, ankle and foot 719.47 ; Arthritis M19.90 ; Chronic obstructive pulmonary disease, unspecified COPD type J44.9 and Encounter for immunization Z23 [place] [address] 02459- 8972 Apr, [facility] [address] 86868- 2847 Apr, [place] [address] 66211- 6918 Mar, [place] [address] 11181- 2785 January, [place] [address] 55639- 7775 Dec, [facility] [address] [place] [id number] [place] [address] 79726- 4038 Oct, [place] [address] 18947- 2584 Oct, [place] [address] [place] [id number] [place] [address] 20920- 8482 Oct, Hypertension, benign I10 and Vitamin B 12 deficiency E53.8 [facility] [address] [place] [id number] [place] [address] 33263- 8602 Oct, [place] [address] [place] [id number] [place] [address] 67633- 7391 Oct, [facility] [address] [place] [id number] [place] [address] 57347- 7298 Oct, Irritable bowel syndrome with diarrhea K58.0 [place] [address] 08871- 0091 Oct, [place] [address] [place] [id number] [place] [address] 56811- 4850 Oct, Vitamin B 12 deficiency E53.8 ; Hypertension, benign I10 and Chronic obstructive pulmonary disease, unspecified COPD type J44.9 [place] [address] [place] [address] [id number] [place] [address] 70706- 0264 Sep, Irritable bowel syndrome with diarrhea K58.0 ; Hypertension , benign I10 ; Chronic obstructive pulmonary disease, unspecified COPD type J44.9 ; Edema, unspecified type R60.9 ; Vision changes H53.9 and Vitamin B 12 deficiency E53.8 [place] [address] 68261- 9255 Sep, [place] [address] 98022- 4857 Jul, Degenerative disc disease 722.6 [place] [address] 33722- 5356 Jun, Encounter for immunization Z23 ; Pain in right leg M79.604 and Pain of left leg M79.605 [place] [address] [place] [id number] [place] [address] 47618- 2059 Jun, [place] [address] [place] [id number] [place] [address] 43335- 8797 Jun, [place] [address] 77875- 4036 Jun, Degenerative disc disease 722.6 [place] [address] [place] [id number] [place] [address] 46181- 7965 Jun, [place] [address] 41420- 7186 May, Seizures 780.39 and Autonomic peripheral neuropathy 337.9 [place] [address] [place] [id number] [place] [address] 54761- 6012 May, [place] [address] [place] [id number] [place] [address] 72339- 0194 May, [facility] [address] [place] [id number] [place] [address] 855766- 4784 May, Degenerative disc disease 722.6 [facility] [address] [place] [id number] [place] [address] 77055- 2246 May, [facility] [address] 76224- 3920 Mar, [facility] [address] [place] [id number] [place] [address] 91395- 3415 Mar, Degenerative disc disease 722.6 ; Spinal stenosis 724.00 and HTN (hypertension) 401.9 [facility] [address] [place] [id number] [place] [address] 44974- 7215 Feb, Cutaneous horn 702.8 [facility] [address] [place] [id number] [place] [address] 88242- 5050 Feb, Fatigue 780.79 [facility] [address] [place] [id number] [place] [address] 58633- 1404 Feb, Fatigue 780.79 ; Arthritis 716.90 ; Spinal stenosis 724.00 ; Sinusitis 473.9 and Cutaneous horn 702.8 [facility] [id number] [place] [address] 47212- 5636 January, [facility] [address] [id number] [place] [address] 45890- 8196 Dec, [facility] [address] [id number] [place] [address] 27912- 9504 Dec, [facility] [id number] [place] [address] 07765- 6686 Nov, [facility] [address] [id number] [place] [address] 31391- 8276 Nov, [facility] [address] [id number] [place] [address] 89278- 5111 Oct, [facility] [place] [facility] [address] [id number] [place] [address]- 1418 Oct, [facility] [place] [facility] [address] [id number] [place] [address]- 4025 Oct, [facility] [place] [facility] [address] [id number] [place] [address]- 3106 Oct, [facility] [place] [facility] [address] [id number] [place] [address]- 5718 Oct, [facility] [place] [facility] [address] [id number] [place] [address]- 0087 Oct, [facility] [place] [facility] [address] [id number] [place] [address]- 3057 Sep, [facility] [address] [id number] [place] [address]- 5295 Sep, [facility] [place] [facility] [address] [id number] [place] [address]- 7913 Sep, [facility] [place] [facility] [address] [id number] [place] [address]- 7282 Sep, [facility] [place] [facility] [address] [id number] [place] [address]- 7977 Sep, [facility] [place] [facility] [address] [id number] [place] [address]- 5225 Sep, [facility] [place] [facility] [address] [id number] [address]- 1665 Sep, [facility] [place] [facility] [address] [id number] [place] [address]- 1772 Sep, [facility] [place] [facility] [address] [id number] [place] [address]- 4418 Sep, [facility] [place] [facility] [address] [id number], [place] [address]- 7278 Sep, [facility] [place] [facility] [address] [id number] [place] [address]- 3338 16 Sep, 2014 [facility] [place] [facility] [address] [id number] [place] [address]- 7918 Sep, [facility] [place] [facility] [address] [id number] [place] [address]- 7498 Sep, [facility] [place] [facility] [address] [id number] [place] [address]- 2618 Sep, [facility] [place] [facility] [address] [id number] [place] [address]- 7956 Aug, [facility] [place] [facility] [address] [id number] [place] [address]- 9027 Aug, [facility] [place] [facility] [address] [id number] [place] [address]- 5206 Aug, [facility] [place] [facility] [address] [id number] [place] [address]- 6500 Aug, [facility] [place] [facility] [address] [id number] [place] [address]- 9563 Jul, [facility] [place] [facility] [address] [id number] [place] [address]- 6655 Jul, [facility] [place] [facility] [address] [id number] [place] [address]- 0076 23 May, 2014 [facility] [place] [facility] [address] [id number] [place] [address]- 9468 23 May, 2014 [facility] [place] [facility] [address] [id number] [place] [address]- 7350 23 May, 2014 [facility] [place] [facility] [address] [id number] [place] [address] 2547 23 May, 2013 [facility] [place] [facility] [address] [id number] [place] [address]- 0663 08 May, 2014 [facility] [place] [facility] [address] [id number] [place] [address]- 0313 May, [facility] [place] [facility] [address] [id number] [place] [address]- 8726 Apr, [facility] [place] [facility] [address] [id number] [place] [address]- 3612 Apr, [facility] [place] [facility] [address] [id number] [place] [address]- 7737 Mar, [facility] [place] [facility] [address] [id number] [place] [address]- 2272 Mar, [facility] [place] [facility] [address] [id number] [place] [address]- 2227 Mar, [facility] [place] [facility] [address] [id number] [place] [address]- 4716 Mar, [facility] [place] [facility] [address] [id number] [place] [address]- 7478 Mar, [facility] [place] [facility] [address] [id number] [place] [address]- 2283 Mar, [facility] [place] [facility] [address] [id number] [place] [address]- 3047 Mar, [facility] [place] [facility] [address] [id number] [place] [address]- 8443 Mar, [facility] [place] [facility] [address] [id number] [place] [address]- 6969 Feb, [facility] [place] [facility] [address] [id number] [place] [address]- 1450 Feb, [facility] [place] [facility] [address] [id number] [place] [address]- 8380 January, [facility] [place] [facility] [address] [id number] [place] [address]- 2067 January, [facility] [place] [facility] [address] [id number] [place] [address]- 6053 January, [facility] [place] [facility] [address] [id number] [place] [address]- 6885 January, [facility] [address] [id number] [place] [address]- 1236 Dec, [facility] [place] [facility] [address] [id number] [place] [address]- 8726 Dec, [facility] [place] [facility] [address] [id number] [place] [address]- 9546 Oct, [facility] [place] [facility] [address] [id number] [place] [address]- 7421 Oct, [facility] [place] [facility] [address] [id number] [place] [address]- 9064 Oct, [facility] [place] [facility] [address] [id number] [place] [address]- 0106 Oct, [facility] [place] [facility] [address] [id number] [place] [address]- 8818 Sep, [facility] [address] [id number] [place] [address]- 6439 Sep, [facility] [place] [facility] [address] [id number] [place] [address]- 4859 Aug, [facility] [address] [id number] [place] [address]- 5453 Aug, [facility] [place] [facility] [address] [id number] [place] [address] 2546 Aug, [facility] [place] [facility] [address] [id number] [place] [address]- 254 Aug, [facility] [place] [facility] [address] [id number] [place] 6236 Aug, [facility] [place] [facility] [address] [id number] [place] [address]- 2546 Aug, [facility] [place] [facility] [address] [id number] [place] 9580 Aug, [facility] [place] [facility] [address] [id number] [place] [address]- 2442 Aug, [facility] [place] [facility] [address] [id number] [place] [address]- 4779 Aug, [facility] [place] [facility] [address] [id number] [place] [address]- 9526 Aug, [facility] [place] [facility] [address] [id number] [place] [address]- 4535 Jul, [facility] [place] [facility] [address] [id number] [place] 2573 Jul, [facility] [place] [facility] [address] [id number] [place] [address]- 6114 Jun, [facility] [place] [facility] [address] [id number] [place] [address]- 7258 Jun, [facility] [place] [facility] [address] [id number] [place] [address]- 2531 Jun, [facility] [place] [facility] [address] [id number] [place] [address]- 1842 Jun, [facility] [place] [facility] [address] [id number], [place] [address]- 4558 Jun, [facility] [place] [facility] [address] [id number], [place] [address]- 0465 13 May, 2012 [facility] [place] [facility] [address] [id number], [place] [address]- 2131 13 May, 2012 [facility] [place] [facility] [address] [id number] [place] [address]- 8579 12 May, 2013 [facility] [place] [facility] [address] [id number] [place] [address]- 9458 06 Sep, 2012 [facility] [place] [facility] [address] [id number] [place] [address]- 8213 03 Sep, 2012 [facility] [place] [facility] [address] [id number] [place] [address]- 7352 Apr, [facility] [address] [id number] [place] [address]- 8535 Mar, [facility] [address] [id number] [place] [address]- 4773 Mar, [facility] [address] [id number] [place] [address] Mar, [facility] [address] [id number] [place] [address] Mar, [facility] [address] [id number] [place] [address] Mar, [facility] [address] [id number] [place] [address] Mar, [facility] [address] [id number] [place] [address] Mar, [facility] [place] [address] [id number] [place] [address] Mar, [facility] [address] [id number] [place] [address] Mar, [facility] [place] [facility] [address] [id number] [place] [address] Feb, [facility] [address] [id number] [place] [address] Feb, [facility] [place] [facility] [address] [id number] [place] [address] Feb, [facility] [place] [facility] [address] [id number] [place] [address] January, [facility] [place] [facility] [address] [id number] [place] [address] January, [facility] [address] [id number] [place] [address] January, [facility] [address] [id number] [place] [address] January, [facility] [address] [id number] [place] [address] 18 Dec, 2012 [facility] [place] [facility] [address] [id number] [place] [address] Dec, [facility] [address] [id number] [place] [address] Dec, [facility] [address] [id number] [place] [address] Dec, [facility] [address] [id number] [place] [address] Dec, [facility] [address] [id number] [place] [address] Dec, [facility] [address] [id number] [place] [address] Nov, [facility] [address] [id number] [place] [address] Oct, [facility] [address] [id number] [place] [address] Aug, [facility] [address] [id number] [place] [address] Aug, [facility] [address] [id number] [place] [address] Aug, [facility] [place] [facility] [address] [id number] [place] [address] Aug, [facility] [place] [facility] [address] [id number] [place] [address] Aug, [facility] [place] [facility] [address] [id number] [place] [address] Aug, [facility] [place] [facility] [address] [id number] [place] [address] Aug, [facility] [place] [facility] [address] [id number] [place] [address] Aug, [facility] [place] [facility] [address] [id number] [place] [address] Aug, [facility] [place] [facility] [address] [facility] [id number] [place] [address] Aug, [facility] [place] [facility] [address] [id number] [place] [address] Aug, [facility] [place] [facility] [address] [id number] [place] [address] Jul, [facility] [place] [facility] [address] [id number] [place] [address] Jul, [facility] [place] [facility] [address] [id number] [place] [address] Jul, [facility] [place] [facility] [address] [id number] [place] [address] Jul, [facility] [place] [facility] [address] [id number] [place] [address] Jul, [facility] [place] [facility] [address] [id number] [place] [address] Jul, [facility] [place] [facility] [address] [id number], [place] [address] Jun, [facility] [place] [facility] [address] [id number], [place] [address] Jun, [facility] [place] [facility] [address] [id number] [place] [address] May, [facility] [place] [facility] [address] [id number], [place] [address] Apr, [facility] [place] [facility] [address] [id number] [place] [address] Apr, [facility] [place] [facility] [address] [id number] [place] [address] Apr, [facility] [address] [id number] [place] [address] Apr, [facility] [address] [id number] [place] [address] Apr, [facility] [address] [id number] [place] [address] Mar, [facility] [address] [id number] [place] [address] Mar, [facility] [address] [id number] [place] [address] January, [facility] [address] [id number] [place] [address] January, [facility] [address] [id number] [place] [address] Nov, [facility] [address] [id number] [place] [address] Oct, [facility] [address] [id number] [place] [address] Sep, [facility] [address] [id number] [place] [address] Sep, [facility] [address] [id number] [place] [address] Sep, [facility] [address] [id number] [place] [address] Sep, [facility] [place] [facility] [address] [id number] [place] [address] Sep, [facility] [address] [id number] [place] [address] Sep, [facility] [address] [id number] [place] [address] Aug, [facility] [place] [facility] [address] [id number] [place] [address] 14 Aug, 2011 [facility] [place] [facility] [address] [id number] [place] [address] Aug, [facility] [place] [facility] [address] [id number] [place] [address] Aug, [facility] [place] [facility] [address] [id number] [place] [address] Aug, [facility] [place] [facility] [address] [id number] [place] [address] Jul, [facility] [place] [facility] [address] [id number] [place] [address] Jul, [facility] [place] [facility] [address] [id number] [place] [address] Jul, [facility] [place] [facility] [address] [id number] [place] [address] Jun, [facility] [place] [facility] [address] [id number] [place] [address] Jun, [facility] [place] [facility] [address] [id number] [place] [address] Jun, [facility] [place] [facility] [address] [id number] [place] [address] January, [facility] [place] [facility] [address] [id number], [place] [address] Dec, [facility] [place] [facility] [address] [id number] [place] [address] Oct, [facility] [place] [facility] [address] [id number] [place] [address] Oct, [facility] [place] [facility] [address] [id number] [place] [address] Jun, [facility] [place] [facility] [address] [id number] [place] [address] 14 Aug, 2009 [facility] [address] [facility] [id number] [place] [address] Aug, [facility] [address] [facility] [id number], [place] [address] Jul, [facility] [address] [facility] [id number] [place] [address] Mar, IMMUNIZATIONS No Known Immunizations SOCIAL HISTORY Never Assessed REASON FOR VISIT xray results PLAN OF CARE VITAL SIGNS MEDICATIONS Unknown Medications RESULTS No Results PROCEDURES No Known procedures INSTRUCTIONS MEDICATIONS ADMINISTERED No Known Medications MEDICAL (GENERAL) HISTORY Type Description Date Medical History Hypertension Medical History Chronic Obstructive pulmonary disease diagnosed 2008 in [place]-PFT not done previously Medical History Gastrointestinal disorder [...]
--- OUTSIDE RECORDS SUMMARY | 2018-03-28 12:25 | XMS REPORT ---
Author Author BRETT JOHNSON Organization [facility] Address [address] [place] [address] Care Team Providers Care Front Office Supervisor Name Role Phone BRETT JOHNSON Unavailable PROBLEMS Type Condition ICD9-CM Code FCG07-HP Code Onset Dates Condition Status SNOMED Code Problem Oral phase dysphagia R13.11 Active 744327755 Problem Chronic sinusitis, unspecified J32.9 Active 12279403 Problem Chronic fatigue R53.82 Active 07360637 Problem Hypertension, benign I10 Active 42903552 Problem Vitamin B 12 deficiency E53.8 Active 31405248 Problem Generalized anxiety disorder F41.1 Active 02449687 Problem Chronic obstructive pulmonary disease, unspecified COPD type J44.9 Active 55401775 Problem Pericardial effusion I31.3 Active 466035015 Problem Pleural effusion on left J90 Active 75397726 Problem Other chronic pain G89.29 Active 14218720 Problem Gastroesophageal reflux disease without esophagitis K21.9 Active 997072664 Problem Agoraphobia with panic attacks F40.01 Active 642552562 Problem COPD with exacerbation J44.1 Active 022983246 ALLERGIES Substance Reaction Event Type Date Status MethylPREDNISolone goes crazy Drug Allergy Jul, Active Ketorolac Tromethamine tingling in lips Drug Allergy Jul, Active Augmentin 875-125 Mg Tablet Pt states this medication is to harsh on her stomach. Non Drug Allergy Jul, Active ENCOUNTERS Encounter Location Date Diagnosis [facility] [address] [facility] [id number] [address] Feb, [facility] [address] [facility] [id number] [address] January, [facility] [address] [facility] [id number] [address] January, Chronic obstructive pulmonary disease, unspecified COPD type J44.9 ; Pleural effusion on left J90 ; Pericardial effusion I31.3 and Generalized anxiety disorder F41.1 [facility] [address] [address] 10 Jan, 2018 Gastroenteritis K52.9 [facility] [address] [address] 10 Jan, 2018 Flank pain R10.9 [facility] [address] [address] January, [address] [id number] [place] [address] Dec [facility] [id number] [place] [address] 73378- 3585 Dec, [facility] [address] [address] Dec, [facility] [id number] [place] [address] 48764- 9589 Dec, [facility] [address] [address] Dec, [facility] [id number] [place] [address] 08520- 0093 Dec, Flank pain R10.9 [facility] [address] [address] Dec, [facility] [address] [address] 9[address] Nov, [facility] [address] [address] 94[address] Nov, [facility] [address] [address] 0[address] Nov, [facility] [address] [address] 14 Nov, 2017 Pericardial effusion I31.3 ; Agoraphobia with panic attacks F40.01 and Vitamin B 12 deficiency E53.8 [facility] [place] [facility] [id number] [place] [address] 26994- 5027 Nov, [facility] [id number] [place] [address] 20040- 9961 Nov, Pneumonia of both lungs due to infectious organism, unspecified part of lung J18.9 and Flank pain R10.9 [facility] [address] [address] Nov, Pneumonia of both lungs due to infectious organism, unspecified part of lung J18.9 and Gastroenteritis K52.9 [facility] [address] [address] Oct, Pneumonia of both lungs due to infectious organism, unspecified part of lung J18.9 and Vitamin B 12 deficiency E53.8 [facility] [id number] [place] [address] [id number] Oct, [facility] [id number] [place] [address] 73028- 9924 Oct, [facility] [id number] [place] [address] 54165- 9963 Oct, [facility] [id number] [place] [address] 21131- 9502 Oct, Flank pain R10.9 [facility] [id number] [place] [address] 78085- 2373 Oct, Other chronic pain G89.29 and Unspecified abdominal pain R10.9 [facility] [id number] [place] [address] 04306- 6376 Sep, Flank pain R10.9 [facility] [id number] [place] [address] 75866- 8409 Sep, [facility] [id number] [place] [address] 88406- 0360 Sep, [facility] [id number] [place] [address] 76173- 0432 Sep, Acute non-recurrent maxillary sinusitis J01.00 [facility] [id number] [place] [address] 11905- 7810 Sep, Acute non-recurrent maxillary sinusitis J01.00 and Vitamin B 12 deficiency E53.8 [place] [address] [address]21- 3036 Sep, [facility] [id number] [place] [address] 69742- 8124 Sep, [place] [address] [address]349- 6176 Sep, [place] [address] 06151- 9875 Sep, COPD with exacerbation J44.1 [place] [address] 26554- 3311 Sep, Chronic obstructive pulmonary disease, unspecified COPD type J44.9 [facility] [id number] [place] [address] 20039- 1445 Aug, Flank pain R10.9 [place] [id number] [place] [address] 49343- 3466 Jul, Flank pain R10.9 and Vitamin B 12 deficiency E53.8 [facility] [id number] [place] [address] 83555- 4336 Jul, [facility] [id number] [place] [address] 91625- 2664 Jun, Gastroenteritis K52.9 [place] [id number] [place] [address] 19130- 4341 May, Gastroenteritis K52.9 and Vitamin B 12 deficiency E53.8 [place] [id number] [place] [address] 16305- 4604 Apr, Allergic conjunctivitis of left eye H10.12 and Chronic fatigue R53.82 [facility] [id number] [place] [address] 93105- 3288 Apr, Chronic sinusitis, unspecified J32.9 [facility] [id number] [place] [address] 61759- 2509 Apr, [facility] [address] 58214- 0026 Feb, [facility] [id number] [place] [address] 04562- 8606 January, [facility] [address] 73151- 4243 Dec, [facility] [id number] [place] [address] 44756- 1540 Oct, [facility] [id number] [place] [address] 33790- 4291 Sep, Oral phase dysphagia R13.11 and Vitamin B 12 deficiency E53.8 [facility] [id number] [place] [address] 93511- 1747 Sep, [facility] [id number] [place] [address] 74710- 4096 Jul, [facility] [id number] [place] [address] 26574- 3812 Jul, [facility] [id number] [place] [address] 18431- 9129 Jun, Bronchitis J40 ; Generalized anxiety disorder F41.1 and Chronic obstructive pulmonary disease, unspecified COPD type J44.9 [facility] [id number] [place] [address] 54361- 2409 Jun, [facility] [id number] [place] [address] 62594- 9385 Jun, [facility] [address] [place] [address]- 9230 Jun, [facility] [id number] [place] [address] 91641- 8679 May, Vitamin B 12 deficiency E53.8 ; Essential (primary) hypertension I10 ; Generalized anxiety disorder F41.1 ; Pain in joint, ankle and foot 719.47 ; Arthritis M19.90 ; Chronic obstructive pulmonary disease, unspecified COPD type J44.9 and Encounter for immunization Z23 [facility] [id number] [place] [address] 23584- 3612 Apr, [facility] [address] 35019- 9347 Apr, [facility] [id number] [place] [address] 87088- 4730 Mar, [facility] [address] 47447- 1812 January, [facility] [id number] [place] [address] 53291- 6247 Dec, [facility] [id number] [place] [address] 13088- 0701 Oct, [facility] [id number] [place] [address] 98064- 5469 Oct, [facility] [id number] [place] [address] 99206- 2707 Oct, Hypertension, benign I10 and Vitamin B 12 deficiency E53.8 [facility] [id number] [place] [address] 23751- 0597 Oct, [facility] [id number] [place] [address] 87367- 9715 Oct, [facility] [id number] [place] [address] 03758- 8201 Oct, Irritable bowel syndrome with diarrhea K58.0 [place] [id number] [place] [address] 04185- 4601 Oct, [place] [id number] [place] [address] 58178- 9574 Oct, Vitamin B 12 deficiency E53.8 ; Hypertension, benign I10 and Chronic obstructive pulmonary disease, unspecified COPD type J44.[address] 37610- 3932 Sep, Irritable bowel syndrome with diarrhea K58.0 ; Hypertension , benign I10 ; Chronic obstructive pulmonary disease, unspecified COPD type J44.9 ; Edema, unspecified type R60.9 ; Vision changes H53.9 and Vitamin B 12 deficiency E53.8 [place] [id number] [place] [address] 09644- 6997 Sep, [address] 46016- 2686 Jul, Degenerative disc disease 722.6 [place] [id number] [place] [address] 95756- 7759 Jun, Pain in right leg M79.604 ; Encounter for immunization Z23 and Pain of left leg M79.605 [place] [id number] [place] [address] 60077- 1494 Jun, [place] [id number] [place] [address] 67165- 7607 Jun, [place] [id number] [place] [address] 70582- 1413 Jun, Degenerative disc disease 722.[address] 27794- 7770 Jun, [place] [id number] [place] [address] 69461- 9180 May, Seizures 780.39 and Autonomic peripheral neuropathy 337.[address] [place] [address]- 6479 18 May, 2015 [facility] [id number] [place] [address] 72030- 5644 17 May, 2015 [facility] [id number] [place] [address] 665056- 3773 May, Degenerative disc disease 722.6 [facility] [address] 89036- 4399 May, [facility] [address] 40615- 8789 Mar, [facility] [address] 019759- 0770 Mar, Degenerative disc disease 722.6 ; Spinal stenosis 724.00 and HTN (hypertension) 401.9 [facility] [address] 45566- 5193 Feb, Cutaneous horn 702.8 [facility] [id number] [place] [address] 27032- 0212 Feb, Fatigue 780.79 [facility] [id number] [place] [address] 72039- 5481 Feb, Fatigue 780.79 ; Arthritis 716.90 ; Spinal stenosis 724.00 ; Sinusitis 473.9 and Cutaneous horn 702.8 [facility] [id number] [place] [address] 71531- 1839 January, [facility] [id number] [place] [address] 92888- 5096 Dec, [facility] [id number] [place] [address] 91223- 9312 Dec, [facility] [id number] [place] [address] 16038- 2850 Nov, [facility] [id number] [place] [address] 40498- 7910 Nov, [facility] [place] [facility] [address] [id number] [place] [address]- 8738 Oct, [facility] [place] [facility] [address] [id number] [place] [address]- 1879 Oct, [facility] [place] [facility] [address] [id number] [place] [address]- 7838 Oct, [facility] [place] [facility] [address] [id number] [place] [address]- 6390 Oct, [facility] [place] [facility] [address] [id number] [place] [address]- 5304 Oct, [facility] [place] [facility] [address] [id number] [place] [address]- 6095 Oct, [facility] [place] [facility] [address] [id number] [place] [address]- 5290 Sep, [facility] [place] [facility] [address] [id number] [place] [address]- 8299 Sep, [facility] [place] [facility] [address] [id number] [place] [address]- 0641 Sep, [facility] [place] [facility] [address] [id number] [place] [address]- 3158 Sep, [facility] [place] [facility] [address] [id number] [address]- 4677 Sep, [facility] [place] [facility] [address] [id number] [place] [address]- 0595 Sep, [facility] [place] [facility] [address] [id number] [place] [address]- 6177 Sep, [facility] [place] [facility] [address] [id number] [place] [address]- 7105 Sep, [facility] [place] [facility] [address] [id number] [place] [address]- 2742 Sep, [facility] [place] [facility] [address] [id number] [place] [address]- 0306 16 Sep, 2014 [facility] [place] [facility] [address] [id number] [place] [address]- 5518 Sep, [facility] [place] [facility] [address] [id number] [place] [address]- 6754 16 Sep, 2014 [facility] [place] [facility] [address] [id number] [place] [address]- 6784 Sep, [facility] [place] [facility] [address] [id number] [place] [address]- 6881 Sep, [facility] [place] [facility] [address] [id number] [place] [address]- 5056 Aug, [facility] [place] [facility] [address] [id number] [place] [address]- 4901 Aug, [facility] [place] [facility] [address] [id number] [place] [address]- 3754 Aug, [facility] [place] [facility] [address] [id number] [place] [address]- 3434 Aug, [facility] [place] [facility] [address] [id number] [place] [address]- 7637 Jul, [facility] [place] [facility] [address] [id number] [place] [address]- 7466 Jul, [facility] [place] [facility] [address] [id number] [place] [address]- 2800 23 May, 2014 [facility] [place] [facility] [address] [id number] [place] [address]- 5960 23 May, 2014 [facility] [place] [facility] [address] [id number] [place] [address]- 7607 23 May, 2014 [facility] [place] [facility] [address] [id number] [place] [address]- 9087 23 May, 2014 [facility] [place] [facility] [address] [id number] [place] [address]- 6319 May, [facility] [place] [facility] [address] [id number] [place] [address]- 0433 May, [facility] [place] [facility] [address] [id number] [place] [address]- 1036 Apr, [facility] [place] [facility] [address] [id number] [place] [address]- 9598 Apr, [facility] [place] [facility] [address] [id number] [place] [address]- 0217 Mar, [facility] [place] [facility] [address] [id number] [place] [address]- 7184 Mar, [facility] [place] [facility] [address] [id number] [place] [address]- 2357 Mar, [facility] [place] [facility] [address] [id number] [place] [address]- 9885 Mar, [facility] [place] [facility] [address] [id number] [place] [address]- 0037 Mar, [facility] [place] [facility] [address] [id number] [place] [address]- 5410 Mar, [facility] [place] [facility] [address] [id number] [place] [address]- 9687 Mar, [facility] [place] [facility] [address] [id number] [place] [address]- 7511 Mar, [facility] [place] [facility] [address] [id number] [place] [address]- 9993 Feb, [facility] [place] [facility] [address] [id number] [place] [address]- 5986 Feb, [facility] [place] [facility] [address] [id number] [place] [address]- 8124 January, [facility] [place] [facility] [address] [id number] [place] [address]- 3720 January, [facility] [place] [facility] [address] [id number] [place] [address]- 7076 January, [facility] [address] [id number] [place] [address]- 1530 January, [facility] [place] [facility] [address] [id number] [place] [address]- 1116 Dec, [facility] [place] [facility] [address] [id number] [place] [address]- 9726 Dec, [facility] [place] [facility] [address] [id number] [place] [address]- 9222 Oct, [facility] [place] [facility] [address] [id number] [place] [address]- 2958 Oct, [facility] [place] [facility] [address] [id number] [place] [address]- 2174 Oct, [facility] [address] [facility] [id number] [place] [address]- 4537 Oct, [facility] [place] [facility] [address] [id number] [place] [address]- 7787 Sep, [facility] [place] [facility] [address] [facility] [id number] [place] [address]- 5911 Sep, [facility] [place] [facility] [address] [facility] [id number] [place] [address]- 9270 Aug, [facility] [place] [facility] [address] [id number] [place] [address]- 3321 Aug, [facility] [place] [facility] [address] [id number] [place] [address]- 0783 Aug, [facility] [place] [facility] [address] [id number] [place] [address]- 4274 Aug, [facility] [place] [facility] [address] [facility] [id number] [place] [address]- 7374 Aug, [facility] [place] [facility] [address] [facility] [id number] [place] [address]- 8250 Aug, [facility] [place] [facility] [address] [id number] [place] [address]- 2378 Aug, [facility] [place] [facility] [address] [id number] [place] [address]- 5969 Aug, [facility] [place] [facility] [address] [id number] [place] [address]- 6117 Aug, [facility] [place] [facility] [address] [id number] [place] [address]- 8603 Aug, [facility] [place] [facility] [address] [id number] [place] [address]- 9003 Jul, [facility] [place] [facility] [address] [id number] [place] [address]- 9287 Jul, [facility] [place] [facility] [address] [id number] [place] [address]- 4764 Jun, [facility] [place] [facility] [address] [id number] [place] [address]- 6102 Jun, [facility] [place] [facility] [address] [id number] [place] [address]- 9183 Jun, [facility] [place] [facility] [address] [id number] [place] [address]- 2733 Jun, [facility] [place] [facility] [address] [id number] [place] 7291 Jun, [facility] [place] [facility] [address] [id number] [place] [address]- 8728 13 May, 2013 [facility] [place] [facility] [address] [id number] [place] [address] 2544 13 May, 2013 [facility] [place] [facility] [address] [id number] [place] 1951 12 May, 2013 [facility] [place] [facility] [address] [id number] [place] [address] 254 06 Sep2012 [facility] [place] [facility] [address] [id number] [place] [address]- 1477 May, [facility] [address] [id number] [place] [address]- 1493 Apr, [facility] [place] [facility] [address] [id number] [place] [address]- 5899 Mar, [facility] [address] [id number] [place] [address]- 5708 Mar, [facility] [place] [facility] [address] [id number] [place] [address]- 5125 Mar, [facility] [address] [id number] [place] [address]- 9056 Mar, [facility] [address] [id number] [place] [address]- 8243 Mar, [facility] [address] [id number] [place] [address]- [address] Mar, [facility] [place] [facility] [address] [id number] [place] [address] Mar, [facility] [place] [facility] [address] [id number] [place] [address] Mar, [facility] [place] [facility] [address] [id number] [place] [address] Mar, [facility] [place] [facility] [address] [id number] [address] Feb, [facility] [place] [facility] [address] [id number] [address] Feb, [facility] [place] [facility] [address] [id number] [place] [address] Feb, [facility] [place] [facility] [address] [id number] [place] [address] January, [facility] [place] [facility] [address] [id number] [place] [address] January, [facility] [place] [facility] [address] [id number] [place] [address] January, [facility] [address] [id number] [place] [address] January, [facility] [address] [id number] [place] [address] Dec, [facility] [address] [id number] [place] [address] Dec, [facility] [address] [id number] [place] [address] Dec, [facility] [address] [id number] [place] [address] Dec, [facility] [address] [id number] [place] [address] Dec, [facility] [address] [id number] [place] [address] Dec, [facility] [address] [id number] [place] [address] Nov, [facility] [address] [id number] [place] [address] Oct, [facility] [address] [id number] [place] [address] Aug, [facility] [address] [id number] [place] [address] Aug, [facility] [address] [id number] [place] [address] Aug, [facility] [place] [facility] [address] [id number] [place] [address] Aug, [facility] [place] [facility] [address] [id number] [place] [address] Aug, [facility] [address] [id number] [place] [address] Aug, [facility] [place] [facility] [address] [id number] [place] [address] Aug, [facility] [place] [facility] [address] [id number] [place] [address] Aug, [facility] [place] [facility] [address] [id number] [place] [address] Aug, [facility] [place] [facility] [address] [id number] [place] [address] Aug, [facility] [place] [facility] [address] [id number] [place] [address] Aug, [facility] [place] [facility] [address] [id number] [place] [address] Jul, [facility] [place] [facility] [address] [id number] [place] [address] Jul, [facility] [place] [facility] [address] [id number] [place] [address] Jul, [facility] [place] [facility] [address] [id number] [place] [address] Jul, [facility] [place] [facility] [address] [id number] [place] [address] Jul, [facility] [place] [facility] [address] [id number] [place] [address] Jul, [facility] [place] [facility] [address] [id number] [address] Jun, [facility] [place] [facility] [address] [id number] [place] [address] Jun, [facility] [place] [facility] [address] [address] [id number] [place] [address] May, [facility] [place] [facility] [address] [id number] [place] [address] Apr, [facility] [place] [facility] [address] [id number] [address] Apr, [facility] [place] [facility] [address] [id number] [place] [address] Apr, [facility] [place] [facility] [address] [id number] [place] [address] Apr, [facility] [place] [facility] [address] [id number] [place] [address] Apr, [facility] [place] [facility] [address] [id number] [place] [address] Mar, [facility] [place] [facility] [address] [id number] [place] [address] Mar, [facility] [place] [facility] [address] [id number] [place] [address] January, [facility] [place] [facility] [address] [id number] [place] [address] January, [facility] [place] [facility] [address] [id number] [place] [address] Nov, [facility] [place] [facility] [address] [id number] [place] [address] Oct, [facility] [place] [facility] [address] [id number] [place] [address] Sep, [facility] [place] [facility] [address] [id number] [place] [address] Sep, [facility] [place] [facility] [address] [id number] [place] [address] Sep, [facility] [place] [facility] [address] [id number] [place] [address] Sep, [facility] [place] [facility] [address] [id number] [place] Sep, [facility] [place] [facility] [address] [id number] [place] [address] Sep, [facility] [place] [facility] [address] [id number] [place] [address] 14 Aug, 2011 [facility] [place] [facility] [address] [id number] [place] [address] 14 Aug, 2011 [facility] [place] [facility] [address] [id number] [place] [address] Aug, [facility] [place] [facility] [address] [id number] [place] [address] Aug, [facility] [place] [facility] [address] [id number] [place] [address] Aug, [facility] [place] [facility] [address] [id number] [place] [address] Jul, [facility] [place] [facility] [address] [id number] [place] [address] Jul, [facility] [place] [facility] [address] [id number] [place] [address] Jul, [facility] [place] [facility] [address] [id number] [place] [address] Jun, [facility] [place] [facility] [address] [id number] [place] [address] Jun, [facility] [place] [facility] [address] [facility] [id number] [place] [address] Jun, [facility] [place] [facility] [address] [id number] [place] [address] January, [facility] [place] [facility] [address] [id number] [place] [address] Dec, [facility] [place] [facility] [address] [id number] [place] [address] Oct, [facility] [place] [facility] [address] [id number] [place] [address] Oct, [facility] [place] [facility] [address] [id number] [place] [address] Jun, [facility] [address] [facility] [id number] [place] [address] Aug, [facility] [address] [facility] [id number] [place] [address] Aug, [facility] [address] [facility] [id number] [place] [address] Jul, [facility] [address] [facility] [id number] [place] [address] Mar, IMMUNIZATIONS Vaccine Route Administration Date Status B12, VITAMIN (UP TO 1000 MCG) IM Intramuscular Aug 19, 2017 Administered SOCIAL HISTORY Never Assessed REASON FOR VISIT ER f/u--Lopez Unger MA PLAN OF CARE VITAL SIGNS Height 67 in 2017-08-19 Weight 192.3 lbs 2017-08-19 Temperature 98.6 degrees Fahrenheit 2017-08-19 Heart Rate 82 bpm 2017-08-19 Respiratory Rate 22 2017-08-19 BMI 30.12 kg/m2 2017-08-19 Blood pressure systolic 142 mmHg 2017-08-19 Blood pressure diastolic 90 mmHg 2017-08-19 MEDICATIONS Medication Instructions Dosage Frequency Start Date End Date Duration Status Omeprazole 20 mg 2 capsules 24h 30 Active Ranitidine HCl 150 MG 1 tablet as needed 12h 30 Active Albuterol Sulfate (2.5 MG/3ML) 0.083% Inhalation every 4 hrs 3 ml 4h Oct Active Cetirizine HCl 10 mg 1 tablet 24h 30 Active Atenolol 100 mg 0.5 tablet by Oral route 2 times per day 12h 30 Active ProAir HFA 108 (90 Base) MCG/ACT 2 puffs as needed 6h Active Cromolyn Sodium 4 % Ophthalmic Four times a day 1 drop into affected eye 6h Apr, Not-Taking Xanax 0.5 MG Orally 4 times a day take 1 tablet 6h Nov, 28 days Active Advair Diskus 500-50 MCG/DOSE Inhalation Twice a day 1 puffs by Inhalation route 2 times per day 12h 30 Active Dicyclomine HCl 20 mg Orally Four times a day PRN 1 tablet 30 Active Tramadol HCl 50 MG Orally every 6 hrs 1 tablet as needed 6h Mar, Not-Taking Acidophilus 100 mg Orally Once a day 1 capsule 24h 18 May, 2017 Active Ketorolac Tromethamine 10 MG Orally every 6 hrs 1 tablet with food or milk as needed 6h Jul, Aug, 5 day(s) Active Fluticasone Propionate 50 MCG/ACT Nasally 2 times a day 1 spray in each nostril 12h 30 days Active Cyclobenzaprine HCl 10 MG TAKE ONE TABLET BY MOUTH TWICE DAILY NEEDED 30 Not-Taking RESULTS Name Result Date Reference Range CBC 2017-08-19 WHITE BLOOD CELL COUNT 9.6 3.8-10.8 RED BLOOD CELL COUNT 4.84 3.80-5.10 HEMOGLOBIN 14.4 11.7-15.5 HEMATOCRIT 43.1 35.0-45.0 MCV 89.0 80.0-100.0 MCH 29.8 27.0-33.0 MCHC 33.4 32.0-36.0 RDW 12.8 11.0-15.0 PLATELET COUNT 359 140-400 MPV 8.9 7.5-12.5 ABSOLUTE NEUTROPHILS 6470 [id number] ABSOLUTE LYMPHOCYTES 2314 850-3900 ABSOLUTE MONOCYTES 662 200-950 ABSOLUTE EOSINOPHILS 86 15-500 ABSOLUTE BASOPHILS 67 0-200 NEUTROPHILS 67.4 LYMPHOCYTES 24.1 MONOCYTES 6.9 EOSINOPHILS 0.9 BASOPHILS 0.7 PROCEDURES Procedure Date Ordered Result Body Site B12, VITAMIN (UP TO 1000 MCG) Aug 19, 2017 LAB NOT BILLED BY [facility] Aug 19, 2017 THER/PROPH/DIAG INJ, SC/IM Aug 19, 2017 VENIPUNCT, ROUTINE* Aug 19, 2017 INSTRUCTIONS MEDICATIONS ADMINISTERED No Known Medications MEDICAL (GENERAL) HISTORY Type Description Date Medical History Hypertension Medical History Chronic Obstructive pulmonary disease diagnosed 2008 in [place]-PFT not done previously Medical History Gastrointestinal disorder [...]
--- OUTSIDE RECORDS SUMMARY | 2018-03-28 12:26 | XMS REPORT ---
Author Author BRETT JOHNSON Organization [facility] Address [address] [place] [address] Care Team Providers Care Driller Helper Name Role Phone ELIZABETH BRETT Unavailable PROBLEMS Type Condition ICD9-CM Code YSC76-DW Code Onset Dates Condition Status SNOMED Code Problem Chronic sinusitis, unspecified J32.9 Active 35739377 Problem Other chronic pain G89.29 Active 37551384 Problem Gastroesophageal reflux disease without esophagitis K21.9 Active 395813098 Problem Slow transit constipation K59.01 Active 32262292 Problem Coronary artery disease involving quinault coronary artery of quinault heart without angina pectoris I25.10 Active [id number] Problem Agoraphobia with panic attacks F40.01 Active 504871186 Problem COPD with exacerbation J44.1 Active 306063680 Problem Pericardial effusion I31.3 Active 455259784 Problem Pleural effusion on left J90 Active 39878889 Problem Generalized anxiety disorder F41.1 Active 31575759 Problem Chronic obstructive pulmonary disease, unspecified COPD type J44.9 Active 16342382 Problem Hypertension, benign I10 Active 30053845 Problem Oral phase dysphagia R13.11 Active 880635266 Problem Vitamin B 12 deficiency E53.8 Active 39291245 Problem Chronic fatigue R53.82 Active 40812219 ALLERGIES No Information ENCOUNTERS Encounter Location Date Diagnosis [facility] [id number] [place] [address] 25680- 5524 18 Feb, 2018 Coronary artery disease involving quinault coronary artery of quinault heart without angina pectoris I25.10 ; Vitamin B 12 deficiency E53.8 ; Slow transit constipation K59.01 ; Generalized anxiety disorder F41.1 and Breast cancer screening by mammogram Z12.31 [facility] [id number] [address] 05 Feb, 2018 Flank pain R10.9 [facility] [id number] [place] [address] 07261- 1397 January, [facility] [address] [address] January, Chronic obstructive pulmonary disease, unspecified COPD type J44.9 ; Pleural effusion on left J90 ; Pericardial effusion I31.3 and Generalized anxiety disorder F41.1 [facility] [address] [address] January, Gastroenteritis K52.9 [facility] [address] [address] 1409 January, Flank pain R10.9 [facility] [id number] [place] [address] 98516- 7462 January, [address] [id number] [place] [address] Dec [facility] [address] [address] Dec, [facility] [address] [address] 9[address] Dec, [facility] [address] [address] 5568 Dec, [facility] [address] [address] 55[address] Dec, [facility] [address] [address] 12[address] Dec, Flank pain R10.9 [facility] [address] [address] 6[address] Dec, [facility] [address] [address] 1004 Nov, [facility] [address] [address] 6400 Nov, [facility] [address] [address] 4047 Nov, [facility] [id number] [place] [address] 32401- 4254 Nov, Pericardial effusion I31.3 ; Agoraphobia with panic attacks F40.01 and Vitamin B 12 deficiency E53.8 [facility] [id number] [place] [address] 28725- 7256 Nov, [facility] [id number] [place] [address] 49123- 4716 Nov, Pneumonia of both lungs due to infectious organism, unspecified part of lung J18.9 and Flank pain R10.9 [facility] [id number] [place] [address] 23068- 9342 Nov, Pneumonia of both lungs due to infectious organism, unspecified part of lung J18.9 and Gastroenteritis K52.9 [facility] [id number] [place] [address] 33992- 2706 Oct, Pneumonia of both lungs due to infectious organism, unspecified part of lung J18.9 and Vitamin B 12 deficiency E53.8 [facility] [address] [id number] Oct, [facility] [id number] [place] [address] 77245- 5335 Oct, [facility] [id number] [place] [address] 53905- 1062 Oct, [facility] [id number] [place] [address] 56690- 6111 Oct, Flank pain R10.9 [facility] [id number] [place] [address] 23344- 8596 Oct, Other chronic pain G89.29 and Unspecified abdominal pain R10.9 [facility] [id number] [place] [address] 45556- 4416 Sep, Flank pain R10.9 [facility] [id number] [place] [address] 54836- 4313 Sep, [facility] [id number] [place] [address] 96922- 0411 Sep, [facility] [id number] [place] [address] 84076- 6673 Sep, Acute non-recurrent maxillary sinusitis J01.00 [facility] [id number] [place] [address] 03615- 4013 Sep, Acute non-recurrent maxillary sinusitis J01.00 and Vitamin B 12 deficiency E53.8 [facility] [id number] [place] [address] 80753- 2399 Sep, [facility] [id number] [place] [address] 79295- 1965 Sep, [facility] [id number] [place] [address] 14751- 5938 Sep, [facility] [id number] [place] [address] 83577- 0609 Sep, COPD with exacerbation J44.1 [facility] [id number] [place] [address] 14500- 5657 Sep, Chronic obstructive pulmonary disease, unspecified COPD type J44.9 [facility] [id number] [place] [address] 91257- 3648 Aug, Flank pain R10.9 [facility] [id number] [place] [address] 42714- 5692 Jul, Flank pain R10.9 and Vitamin B 12 deficiency E53.8 [facility] [id number] [place] [address] 68027- 3405 Jul, [facility] [id number] [place] [address] 60117- 8364 Jun, Gastroenteritis K52.9 [facility] [id number] [place] [address] 63662- 0915 18 May, 2017 Gastroenteritis K52.9 and Vitamin B 12 deficiency E53.8 [facility] [id number] [place] [address] 66849- 3959 Apr, Allergic conjunctivitis of left eye H10.12 and Chronic fatigue R53.82 [facility] [address] 16510- 4700 Apr, Chronic sinusitis, unspecified J32.9 [facility] [id number] [place] [address] 70087- 7721 Apr, [facility] [id number] [place] [address] 48200- 1075 Feb, [facility] [id number] [place] [address] 55595- 8043 January, [facility] [id number] [place] [address] 45027- 2722 Dec, [facility] [id number] [place] [address] 70869- 4750 Oct, [facility] [id number] [place] [address] 29347- 8735 Sep, Oral phase dysphagia R13.11 and Vitamin B 12 deficiency E53.8 [facility] [id number] [place] [address] 92997- 4514 Sep, [facility] [id number] [place] [address] 98767- 6199 Jul, [facility] [id number] [place] [address] 36955- 0335 Jul, [facility] [id number] [place] [address] 79645- 9646 Jun, Bronchitis J40 ; Generalized anxiety disorder F41.1 and Chronic obstructive pulmonary disease, unspecified COPD type J44.9 [facility] [id number] [place] [address] 46608- 2114 18 Jun, 2016 [facility] [id number] [place] [address] 76738- 9196 14 Jun, 2016 [facility] [id number] [place] [address] 66648- 2021 13 Jun, 2016 [facility] [id number] [place] [address] 43405- 6269 May, Vitamin B 12 deficiency E53.8 ; Essential (primary) hypertension I10 ; Generalized anxiety disorder F41.1 ; Pain in joint, ankle and foot 719.47 ; Arthritis M19.90 ; Chronic obstructive pulmonary disease, unspecified COPD type J44.9 and Encounter for immunization Z23 [facility] [id number] [place] [address] 71021- 5544 Apr, [facility] [address] 67343- 4882 Apr, [facility] [id number] [place] [address] 93170- 3196 Mar, [facility] [id number] [place] [address] 77850- 5002 January, [facility] [id number] [place] [address] 25973- 3576 Dec, [facility] [id number] [place] [address] 96423- 2114 Oct, [facility] [id number] [place] [address] 39939- 3105 Oct, [facility] [id number] [place] [address] 56438- 3158 Oct, Hypertension, benign I10 and Vitamin B 12 deficiency E53.8 [facility] [id number] [place] [address] 62553- 8379 Oct, [facility] [address] [place] [address]- 1751 Oct, [facility] [id number] [place] [address] 00806- 1823 Oct, Irritable bowel syndrome with diarrhea K58.0 [facility] [id number] [place] [address] 49860- 3384 Oct, [facility] [address] 23410- 7165 Oct, Vitamin B 12 deficiency E53.8 ; Hypertension, benign I10 and Chronic obstructive pulmonary disease, unspecified COPD type J44.9 [facility] [address] 38928- 2548 Sep, Irritable bowel syndrome with diarrhea K58.0 ; Hypertension , benign I10 ; Chronic obstructive pulmonary disease, unspecified COPD type J44.9 ; Edema, unspecified type R60.9 ; Vision changes H53.9 and Vitamin B 12 deficiency E53.8 [facility] [id number] [place] [address] 40961- 4139 Sep, [facility] [address] 71015- 1480 Jul, Degenerative disc disease 722.6 [facility] [id number] [place] [address] 67528- 6655 Jun, Pain in right leg M79.604 ; Encounter for immunization Z23 and Pain of left leg M79.605 [facility] [id number] [place] [address] 35321- 1344 Jun, [facility] [address] 46297- 1322 Jun, [facility] [id number] [place] [address] 66406- 1037 Jun, Degenerative disc disease 722.6 [facility] [id number] [place] [address] 96177- 1094 Jun, [facility] [id number] [place] [address] 98807- 4666 28 May, 2015 Seizures 780.39 and Autonomic peripheral neuropathy 337.9 [facility] [id number] [place] [address] 65626- 7394 18 May, 2015 [facility] [id number] [place] [address] 01179- 7585 May, [facility] [id number] [place] [address] 74384- 5755 May, Degenerative disc disease 722.6 [facility] [address] 584959- 1044 May, [facility] [id number] [place] [address] 33104- 8105 Mar, [facility] [address] 23907- 1958 Mar, Degenerative disc disease 722.6 ; Spinal stenosis 724.00 and HTN (hypertension) 401.9 [facility] [id number] [place] [address] 600720- 0886 Feb, Cutaneous horn 702.8 [facility] [id number] [place] [address] 16579- 7969 Feb, Fatigue 780.79 [facility] [id number] [place] [address] 38572- 8761 Feb, Fatigue 780.79 ; Arthritis 716.90 ; Spinal stenosis 724.00 ; Sinusitis 473.9 and Cutaneous horn 702.8 [facility] [id number] [place] [address] 49848- 3722 January, [facility] [id number] [place] [address] 94078- 0738 Dec, [facility] [id number] [place] [address] 02337- 2059 Dec, [facility] [place] [facility] [address] [id number] [place] [address]- 7488 Nov, [facility] [place] [facility] [address] [id number] [place] [address]- 6435 Nov, [facility] [place] [facility] [address] [id number] [place] [address]- 6309 Oct, [facility] [place] [facility] [address] [id number] [place] [address]- 7540 Oct, [facility] [place] [facility] [address] [id number] [place] [address]- 5809 Oct, [facility] [place] [facility] [address] [id number] [place] [address]- 7324 Oct, [facility] [place] [facility] [address] [id number] [place] [address]- 9533 Oct, [facility] [place] [facility] [address] [id number] [place] [address]- 4782 Oct, [facility] [place] [facility] [address] [id number] [place] [address]- 8622 Sep, [facility] [place] [facility] [address] [id number] [place] [address]- 9384 Sep, [facility] [place] [facility] [address] [id number] [place] [address]- 9956 Sep, [facility] [place] [facility] [address] [id number] [place] [address]- 1509 Sep, [facility] [place] [facility] [address] [id number] [place] [address]- 5322 Sep, [facility] [place] [facility] [address] [id number] [place] [address]- 1277 Sep, [facility] [place] [facility] [address] [id number] [place] [address]- 5413 Sep, [facility] [place] [facility] [address] [id number] [place] [address]- 1994 Sep, [facility] [address] [id number] [place] [address]- 3890 Sep, [facility] [place] [facility] [address] [id number] [place] [address]- 7295 Sep, [facility] [address] [id number] [place] [address]- 4981 Sep, [facility] [address] [id number] [place] [address]- 7424 Sep, [facility] [address] [id number] [place] [address]- 8152 Sep, [facility] [address] [id number] [place] [address]- 6014 Sep, [facility] [address] [id number] [place] [address]- 0383 Aug, [facility] [address] [id number] [place] [address]- 6236 Aug, [facility] [address] [id number] [place] [address]- 3266 Aug, [facility] [address] [id number] [place] [address]- 5288 Aug, [facility] [place] [facility] [address] [id number] [place] [address]- 7856 Jul, [facility] [place] [facility] [address] [id number] [place] [address]- 5477 Jul, [facility] [place] [facility] [address] [id number] [place] [address]- 7997 May, [facility] [place] [facility] [address] [id number] [place] [address]- 5789 May, [facility] [place] [facility] [address] [id number] [place] [address]- 6107 May, [facility] [place] [facility] [address] [id number] [place] [address]- 1769 May, [facility] [place] [facility] [address] [id number] [place] [address]- 5377 May, [facility] [place] [facility] [address] [id number] [place] [address]- 8685 May, [facility] [place] [facility] [address] [id number] [place] [address]- 3229 Apr, [facility] [place] [facility] [address] [id number] [place] [address]- 5540 Apr, [facility] [place] [facility] [address] [id number] [place] [address]- 5826 Mar, [facility] [place] [facility] [address] [id number] [place] [address]- 3076 Mar, [facility] [place] [facility] [address] [id number] [place] [address]- 3105 Mar, [facility] [place] [facility] [address] [id number] [place] [address]- 1598 Mar, [facility] [place] [facility] [address] [id number] [place] [address]- 7922 Mar, [facility] [place] [facility] [address] [id number] [place] [address]- 7489 Mar, [facility] [place] [facility] [address] [id number] [place] [address]- 5321 Mar, [facility] [place] [facility] [address] [id number] [place] [address]- 6794 Mar, [facility] [place] [facility] [address] [id number] [place] [address]- 5337 Feb, [facility] [place] [facility] [address] [id number] [place] [address]- 3720 Feb, [facility] [place] [facility] [address] [id number] [place] [address]- 5311 January, [facility] [address] [id number] [place] [address]- 2480 January, [facility] [place] [facility] [address] [id number] [place] [address]- 2090 January, [facility] [place] [facility] [address] [id number] [place] [address]- 0659 January, [facility] [place] [facility] [address] [id number] [place] [address]- 5508 Dec, [facility] [place] [facility] [address] [id number] [place] [address]- 1527 Dec, [facility] [place] [facility] [address] [id number] [place] [address]- 4635 Oct, [facility] [place] [facility] [address] [id number] [place] [address]- 6651 Oct, [facility] [place] [facility] [address] [id number] [place] [address]- 6575 Oct, [facility] [place] [facility] [address] [id number] [place] [address]- 2938 Oct, [facility] [place] [facility] [address] [facility] [id number] [place] [address]- 3740 Sep, [facility] [place] [facility] [address] [id number] [place] [address]- 2148 Sep, [facility] [place] [facility] [address] [id number] [place] [address]- 6756 Aug, [facility] [place] [facility] [address] [id number] [place] [address]- 3847 Aug, [facility] [place] [facility] [address] [id number] [place] [address]- 8527 Aug, [facility] [place] [facility] [address] [id number] [place] [address]- 7433 Aug, [facility] [place] [facility] [address] [id number] [place] [address]- 8769 Aug, [facility] [place] [facility] [address] [id number] [place] [address]- 8153 Aug, [facility] [place] [facility] [address] [id number] [place] [address]- 4966 Aug, [facility] [place] [facility] [address] [id number] [place] 6565 Aug, [facility] [place] [facility] [address] [id number] [place] [address]- 0458 Aug, [facility] [place] [facility] [address] [id number] [place] [address]- 8287 Aug, [facility] [place] [facility] [address] [id number] [place] [address]- 7683 Jul, [facility] [place] [facility] [address] [id number] [place] [address]- 3130 Jul, [facility] [place] [facility] [address] [id number] [place] [address]- 7835 Jun, [facility] [place] [facility] [address] [id number] [place] [address]- 9258 Jun, [facility] [place] [facility] [address] [id number] [place] [address]- 9961 Jun, [facility] [place] [facility] [address] [id number] [place] [address]- 7202 Jun, [facility] [place] [facility] [address] [id number] [place] [address]- 3860 Jun, [facility] [place] [facility] [address] [id number] [place] [address]- 6298 May, [facility] [place] [facility] [address] [id number] [place] [address]- 1320 May, [facility] [place] [facility] [address] [id number] [place] [address] 12 May, 2013 [facility] [place] [facility] [address] [id number] [place] [address] 06 May, 2013 [facility] [place] [facility] [address] [id number] [place] [address] May, [facility] [place] [facility] [address] [id number] [place] [address] Apr, [facility] [place] [facility] [address] [id number] [place] [address] Mar, [facility] [place] [facility] [address] [id number] [place] [address] Mar, [facility] [place] [facility] [address] [id number] [place] [address] Mar, [facility] [place] [facility] [address] [id number] [place] [address] Mar, [facility] [place] [facility] [address] [id number] [place] [address] Mar, [facility] [place] [facility] [address] [id number] [place] [address] Mar, [facility] [place] [facility] [address] [id number] [place] [address] Mar, [facility] [place] [facility] [address] [id number] [place] [address] Mar, [facility] [place] [facility] [address] [id number] [place] [address] Mar, [facility] [place] [facility] [address] [id number] [place] [address] Feb, [facility] [place] [facility] [address] [id number] [place] [address] Feb, [facility] [place] [facility] [address] [id number] [place] [address] Feb, [facility] [place] [facility] [address] [id number] [place] [address] January, [facility] [address] [id number] [place] [address] January, [facility] [address] [id number] [place] [address] January, [facility] [address] [id number] [place] [address] January, [facility] [address] [id number] [place] [address] Dec, [facility] [address] [id number] [place] [address] Dec, [facility] [address] [id number] [place] [address] Dec, [facility] [address] [id number] [place] [address] Dec, [facility] [address] [id number] [place] [address] Dec, [facility] [address] [id number] [place] [address] Dec, [facility] [address] [id number] [place] [address] Nov, [facility] [address] [id number] [place] [address] Oct, [facility] [address] [id number] [place] [address] Aug, [facility] [address] [id number] [place] [address] Aug, [facility] [address] [id number] [place] [address] Aug, [facility] [address] [id number] [place] [address] Aug, [facility] [place] [facility] [address] [id number] [place] [address] Aug, [facility] [place] [facility] [address] [id number] [place] [address] Aug, [facility] [place] [facility] [address] [id number] [place] [address] Aug, [facility] [place] [facility] [address] [id number] [place] [address] Aug, [facility] [place] [facility] [address] [id number] [place] [address] Aug, [facility] [place] [facility] [address] [id number] [place] [address] Aug, [facility] [place] [facility] [address] [id number] [place] [address] Aug, [facility] [place] [facility] [address] [id number], [place] [address] Jul, [facility] [place] [facility] [address] [id number] [place] [address] Jul, [facility] [place] [facility] [address] [facility] [id number][place] [address] Jul, [facility] [place] [facility] [address] [id number][place] [address] Jul, [facility] [place] [facility] [address] [id number], [place] [address] Jul, [facility] [place] [facility] [address] [id number] [address] Jul, [facility] [place] [facility] [address] [id number][place] [address] Jun, [facility] [place] [facility] [address] [id number], [place] [address] Jun, [facility] [place] [facility] [address] [id number][place] [address] May, [facility] [address] [id number] [place] [address] Apr, [facility] [place] [facility] [address] [id number] [place] [address] Apr, [facility] [place] [facility] [address] [id number] [place] [address] Apr, [facility] [place] [facility] [address] [id number] [place] [address] Apr, [facility] [address] [id number] [place] [address] Apr, [facility] [place] [facility] [address] [id number] [place] [address] Mar, [facility] [address] [id number] [place] [address] Mar, [facility] [place] [facility] [address] [id number] [place] [address] January, [facility] [address] [id number] [place] [address] January, [facility] [address] [id number] [place] [address] Nov, [facility] [place] [facility] [address] [id number] [place] [address] Oct, [facility] [place] [facility] [address] [id number] [place] [address] Sep, [facility] [place] [facility] [address] [id number] [place] [address] Sep, [facility] [place] [facility] [address] [id number] [place] [address] Sep, [facility] [place] [facility] [address] [id number] [place] [address] Sep, [facility] [place] [facility] [address] [id number] [place] [address] Sep, [facility] [place] [facility] [address] [id number] [place] [address]- [address] Sep, [facility] [place] [facility] [address] [id number] [place] [address] Aug, [facility] [place] [facility] [address] [id number] [place] [address]- [address] Aug, [facility] [place] [facility] [address] [id number] [place] [address] Aug, [facility] [place] [facility] [address] [id number] [place] [address] Aug, [facility] [place] [facility] [address] [id number] [place] [address] Aug, [facility] [place] [facility] [address] [id number] [place] [address] Jul, [facility] [place] [facility] [address] [id number] [place] [address] Jul, [facility] [place] [facility] [address] [id number] [place] [address] Jul, [facility] [place] [facility] [address] [id number] [place] [address] Jun, [facility] [place] [facility] [address] [id number] [place] [address] Jun, [facility] [place] [facility] [address] [id number] [place] [address] Jun, [facility] [place] [facility] [address] [id number] [place] [address] January, [facility] [place] [facility] [address] [id number] [place] [address] Dec, [facility] [place] [facility] [address] [id number] [place] [address] Oct, [facility] [address] [facility] [id number], [place] [address] Oct, [facility] [address] [id number], [place] [address] Jun, [facility] [address] [id number], [place] [address] Aug, [facility] [address] [facility] [id number], [place] [address] Aug, [facility] [address] [facility] [id number], [place] [address] Jul, [facility] [address] [facility] [id number], [place] [address] Mar, IMMUNIZATIONS No Known Immunizations SOCIAL HISTORY Never Assessed REASON FOR VISIT Hydrocodone PLAN OF CARE VITAL SIGNS MEDICATIONS Medication Instructions Dosage Frequency Start Date End Date Duration Status [place] 5-325 MG Orally every 6 hrs 1 tablet as needed Sep, Active RESULTS No Results PROCEDURES No Known procedures INSTRUCTIONS MEDICATIONS ADMINISTERED No Known Medications MEDICAL (GENERAL) HISTORY Type Description Date Medical History Hypertension Medical History Chronic Obstructive pulmonary disease diagnosed 2008 in [place]-PFT not done previously Medical History Gastrointestinal disorder [...]
--- OUTSIDE RECORDS SUMMARY | 2018-03-28 12:26 | XMS REPORT ---
Author Author BRETT JOHNSON Organization [facility] Address [address] [place] [address] Care Team Providers Care Hr Payroll Coordinator Name Role Phone ELIZABETH BRETT Unavailable PROBLEMS Type Condition ICD9-CM Code LOZ97-RG Code Onset Dates Condition Status SNOMED Code Problem Chronic sinusitis, unspecified J32.9 Active 47991615 Problem Other chronic pain G89.29 Active 44359931 Problem Gastroesophageal reflux disease without esophagitis K21.9 Active 116595164 Problem Slow transit constipation K59.01 Active 21764255 Problem Coronary artery disease involving enterprise coronary artery of enterprise heart without angina pectoris I25.10 Active [id number] Problem Agoraphobia with panic attacks F40.01 Active 287981600 Problem COPD with exacerbation J44.1 Active 568115239 Problem Pericardial effusion I31.3 Active 750568781 Problem Pleural effusion on left J90 Active 58697726 Problem Generalized anxiety disorder F41.1 Active 65749195 Problem Chronic obstructive pulmonary disease, unspecified COPD type J44.9 Active 99783849 Problem Hypertension, benign I10 Active 47720037 Problem Oral phase dysphagia R13.11 Active 629490318 Problem Vitamin B 12 deficiency E53.8 Active 54082017 Problem Chronic fatigue R53.82 Active 13100166 ALLERGIES No Information ENCOUNTERS Encounter Location Date Diagnosis [facility] [id number] [place] [address] 14300- 4524 18 Feb, 2018 Coronary artery disease involving enterprise coronary artery of enterprise heart without angina pectoris I25.10 ; Vitamin B 12 deficiency E53.8 ; Slow transit constipation K59.01 ; Generalized anxiety disorder F41.1 and Breast cancer screening by mammogram Z12.31 [facility] [id number], [place] [address] 05 Feb, 2018 Flank pain R10.9 [facility] [id number] [place] [address] 01338- 4179 January, [facility] [address] [address] 8[address] January, Chronic obstructive pulmonary disease, unspecified COPD type J44.9 ; Pleural effusion on left J90 ; Pericardial effusion I31.3 and Generalized anxiety disorder F41.1 [facility] [address], [place] [address] January, Gastroenteritis K52.9 [facility] [address], [place] [address] 4307 January, Flank pain R10.9 [facility] [id number] [place] [address] 17005- 5826 January, [address] [id number] [place] [address] Dec [facility] [address], [place] [address] 9189 Dec, [facility] [address], [place] [address]- 5634 Dec, [facility] [address], [place] [address]- 2692 Dec, [facility] [address], [place] [address]- 9758 Dec, [facility] [address], [place] [address] 1456 Dec, Flank pain R10.9 [facility] [address] [address] 2649 Dec, [facility] [address], [place] [address]- 2846 Nov, [facility] [address], [place] [address]- 5884 Nov, [facility] [address], [place] [address] 3247 Nov, [facility] [address] [place] [address] 84661- 9395 Nov, Pericardial effusion I31.3 ; Agoraphobia with panic attacks F40.01 and Vitamin B 12 deficiency E53.8 [facility] [id number] [place] [address] 53377- 3662 Nov, [facility] [id number] [place] [address] 65698- 4140 Nov, Pneumonia of both lungs due to infectious organism, unspecified part of lung J18.9 and Flank pain R10.9 [facility] [id number] [place] [address] 38892- 4273 Nov, Pneumonia of both lungs due to infectious organism, unspecified part of lung J18.9 and Gastroenteritis K52.9 [facility] [id number] [place] [address] 62460- 3305 Oct, Pneumonia of both lungs due to infectious organism, unspecified part of lung J18.9 and Vitamin B 12 deficiency E53.8 [facility] [address] [id number] Oct, [facility] [address] [place] [address] 33311- 5729 Oct, [facility] [id number] [place] [address] 53286- 7344 Oct, [facility] [id number] [place] [address] 40654- 7448 Oct, Flank pain R10.9 [facility] [id number] [place] [address] 52231- 6147 Oct, Other chronic pain G89.29 and Unspecified abdominal pain R10.9 [facility] [id number] [place] [address] 13642- 8398 Sep, Flank pain R10.9 [facility] [address] [place] [address] 99167- 9266 Sep, [facility] [id number] [place] [address] 91758- 9106 Sep, [facility] [id number] [place] [address] 82505- 7733 Sep, Acute non-recurrent maxillary sinusitis J01.00 [facility] [id number] [place] [address] 84528- 8903 Sep, Acute non-recurrent maxillary sinusitis J01.00 and Vitamin B 12 deficiency E53.8 [facility] [id number] [place] [address] 88335- 0603 Sep, [facility] [id number] [place] [address] 03770- 2837 Sep, [facility] [id number] [place] [address] 89136- 2860 Sep, [facility] [id number] [place] [address] 33970- 4555 Sep, COPD with exacerbation J44.1 [facility] [id number] [place] [address] 46470- 9313 Sep, Chronic obstructive pulmonary disease, unspecified COPD type J44.9 [facility] [id number] [place] [address] 05446- 5827 Aug, Flank pain R10.9 [facility] [id number] [place] [address] 71742- 9619 Jul, Flank pain R10.9 and Vitamin B 12 deficiency E53.8 [facility] [id number] [place] [address] 87574- 4612 Jul, [facility] [id number] [place] [address] 10587- 8643 Jun, Gastroenteritis K52.9 [facility] [id number] [place] [address] 81096- 3269 18 May, 2017 Gastroenteritis K52.9 and Vitamin B 12 deficiency E53.8 [facility] [id number] [place] [address] 16327- 9387 Apr, Allergic conjunctivitis of left eye H10.12 and Chronic fatigue R53.82 [facility] [address] 05117- 3537 Apr, Chronic sinusitis, unspecified J32.9 [facility] [id number] [place] [address] 42328- 1677 Apr, [facility] [id number] [place] [address] 38258- 6346 Feb, [facility] [id number] [place] [address] 11441- 0247 January, [facility] [id number] [place] [address] 57617- 3899 Dec, [facility] [id number] [place] [address] 59312- 1697 Oct, [facility] [id number] [place] [address] 05484- 8565 Sep, Oral phase dysphagia R13.11 and Vitamin B 12 deficiency E53.8 [facility] [id number] [place] [address] 38900- 1104 Sep, [facility] [id number] [place] [address] 74673- 9203 Jul, [facility] [id number] [place] [address] 84630- 3141 Jul, [facility] [id number] [place] [address] 73485- 7650 Jun, Bronchitis J40 ; Generalized anxiety disorder F41.1 and Chronic obstructive pulmonary disease, unspecified COPD type J44.9 [facility] [id number] [place] [address] 95483- 1576 18 Jun, 2016 [facility] [id number] [place] [address] 78159- 4744 14 Jun, 2016 [facility] [id number] [place] [address] 52407- 2193 13 Jun, 2016 [facility] [id number] [place] [address] 44881- 5299 May, Vitamin B 12 deficiency E53.8 ; Essential (primary) hypertension I10 ; Generalized anxiety disorder F41.1 ; Pain in joint, ankle and foot 719.47 ; Arthritis M19.90 ; Chronic obstructive pulmonary disease, unspecified COPD type J44.9 and Encounter for immunization Z23 [facility] [id number] [place] [address] 00512- 9133 Apr, [facility] [address] 39272- 3006 Apr, [facility] [id number] [place] [address] 44115- 9624 Mar, [facility] [id number] [place] [address] 89682- 9726 January, [facility] [id number] [place] [address] 70957- 1061 Dec, [facility] [id number] [place] [address] 94763- 5335 Oct, [facility] [id number] [place] [address] 63278- 3972 Oct, [facility] [id number] [place] [address] 22373- 7000 Oct, Hypertension, benign I10 and Vitamin B 12 deficiency E53.8 [facility] [id number] [place] [address] 38426- 5278 Oct, [facility] [address] [place] [address]- 0310 Oct, [facility] [id number] [place] [address] 23349- 4295 Oct, Irritable bowel syndrome with diarrhea K58.0 [facility] [id number] [place] [address] 70615- 7658 Oct, [facility] [address] 59366- 7692 Oct, Vitamin B 12 deficiency E53.8 ; Hypertension, benign I10 and Chronic obstructive pulmonary disease, unspecified COPD type J44.9 [facility] [address] 14816- 9883 Sep, Irritable bowel syndrome with diarrhea K58.0 ; Hypertension , benign I10 ; Chronic obstructive pulmonary disease, unspecified COPD type J44.9 ; Edema, unspecified type R60.9 ; Vision changes H53.9 and Vitamin B 12 deficiency E53.8 [facility] [id number] [place] [address] 16369- 5170 Sep, [facility] [address] 72782- 8498 Jul, Degenerative disc disease 722.6 [facility] [id number] [place] [address] 96993- 2018 Jun, Pain in right leg M79.604 ; Encounter for immunization Z23 and Pain of left leg M79.605 [facility] [id number] [place] [address] 75515- 4053 Jun, [facility] [address] 51717- 1712 Jun, [facility] [id number] [place] [address] 95967- 0207 Jun, Degenerative disc disease 722.6 [facility] [id number] [place] [address] 41658- 6083 Jun, [facility] [address] [place] [address] 59522- 7895 28 May, 2015 Seizures 780.39 and Autonomic peripheral neuropathy 337.9 [facility] [id number] [place] [address] 65219- 4552 18 May, 2015 [facility] [id number] [place] [address] 44862- 5015 May, [facility] [id number] [place] [address] 02086- 2039 May, Degenerative disc disease 722.6 [facility] [address] 957188- 7453 May, [facility] [id number] [place] [address] 94771- 0197 Mar, [facility] [address] 65814- 8857 Mar, Degenerative disc disease 722.6 ; Spinal stenosis 724.00 and HTN (hypertension) 401.9 [facility] [id number] [place] [address] 789085- 4089 Feb, Cutaneous horn 702.8 [facility] [id number] [place] [address] 30401- 0451 Feb, Fatigue 780.79 [facility] [id number] [place] [address] 51501- 3699 Feb, Fatigue 780.79 ; Arthritis 716.90 ; Spinal stenosis 724.00 ; Sinusitis 473.9 and Cutaneous horn 702.8 [facility] [id number] [place] [address] 84221- 1668 January, [facility] [id number] [place] [address] 41935- 2424 Dec, [facility] [id number] [place] [address] 02171- 8792 Dec, [facility] [place] [facility] [address] [id number] [place] [address]- 7458 Nov, [facility] [place] [facility] [address] [id number] [place] [address]- 1514 Nov, [facility] [place] [facility] [address] [id number] [place] [address]- 3441 Oct, [facility] [place] [facility] [address] [id number] [place] [address]- 7849 Oct, [facility] [place] [facility] [address] [id number] [place] [address]- 3392 Oct, [facility] [place] [facility] [address] [id number] [place] [address]- 5963 Oct, [facility] [place] [facility] [address] [id number] [place] [address]- 8118 Oct, [facility] [place] [facility] [address] [id number] [place] [address]- 1035 Oct, [facility] [place] [facility] [address] [id number] [place] [address]- 0090 Sep, [facility] [place] [facility] [address] [id number] [place] [address]- 5712 Sep, [facility] [place] [facility] [address] [id number] [place] [address]- 6804 Sep, [facility] [place] [facility] [address] [id number] [place] [address]- 0358 Sep, [facility] [place] [facility] [address] [id number] [place] [address]- 2938 Sep, [facility] [place] [facility] [address] [id number] [place] [address]- 3398 Sep, [facility] [place] [facility] [address] [id number] [place] [address]- 8541 Sep, [facility] [place] [facility] [address] [id number] [place] [address]- 6207 Sep, [facility] [address] [id number] [place] [address]- 2291 Sep, [facility] [place] [facility] [address] [id number] [place] [address]- 5265 Sep, [facility] [address] [id number] [place] [address]- 5911 Sep, [facility] [address] [id number] [place] [address]- 9239 Sep, [facility] [address] [id number] [place] [address]- 4529 Sep, [facility] [address] [id number] [place] [address]- 7142 Sep, [facility] [address] [id number] [place] [address]- 3924 Aug, [facility] [address] [id number] [place] [address]- 3088 Aug, [facility] [address] [id number] [place] [address]- 5182 Aug, [facility] [address] [id number] [place] [address]- 5955 Aug, [facility] [place] [facility] [address] [id number] [place] [address]- 1732 Jul, [facility] [place] [facility] [address] [id number] [place] [address]- 4580 Jul, [facility] [place] [facility] [address] [id number] [place] [address]- 6473 May, [facility] [place] [facility] [address] [id number] [place] [address]- 4059 May, [facility] [place] [facility] [address] [id number] [place] [address]- 7100 May, [facility] [place] [facility] [address] [id number] [place] [address]- 2022 May, [facility] [place] [facility] [address] [id number] [place] [address]- 3684 May, [facility] [place] [facility] [address] [id number] [place] [address]- 9946 May, [facility] [place] [facility] [address] [id number] [place] [address]- 2219 Apr, [facility] [place] [facility] [address] [id number] [place] [address]- 7269 Apr, [facility] [place] [facility] [address] [id number] [place] [address]- 1737 Mar, [facility] [place] [facility] [address] [id number] [place] [address]- 6452 Mar, [facility] [place] [facility] [address] [id number] [place] [address]- 7442 Mar, [facility] [place] [facility] [address] [id number] [place] [address]- 1845 Mar, [facility] [place] [facility] [address] [id number] [place] [address]- 9195 Mar, [facility] [place] [facility] [address] [id number] [place] [address]- 3646 Mar, [facility] [place] [facility] [address] [id number] [place] [address]- 9817 Mar, [facility] [place] [facility] [address] [id number] [place] [address]- 7821 Mar, [facility] [place] [facility] [address] [id number] [place] [address]- 1590 Feb, [facility] [place] [facility] [address] [id number] [place] [address]- 3548 Feb, [facility] [place] [facility] [address] [id number] [place] [address]- 1140 January, [facility] [address] [id number] [place] [address]- 6331 January, [facility] [place] [facility] [address] [id number] [place] [address]- 3972 January, [facility] [place] [facility] [address] [id number] [place] [address]- 7648 January, [facility] [place] [facility] [address] [id number] [place] [address]- 7520 Dec, [facility] [place] [facility] [address] [id number] [place] [address]- 4392 Dec, [facility] [place] [facility] [address] [id number] [place] [address]- 8658 Oct, [facility] [place] [facility] [address] [id number] [place] [address]- 0220 Oct, [facility] [place] [facility] [address] [id number] [place] [address]- 0820 Oct, [facility] [place] [facility] [address] [id number] [place] [address]- 4197 Oct, [facility] [place] [facility] [address] [facility] [id number] [place] [address]- 1936 Sep, [facility] [place] [facility] [address] [id number] [place] [address]- 9585 Sep, [facility] [place] [facility] [address] [id number] [place] [address]- 6028 Aug, [facility] [place] [facility] [address] [id number] [place] [address]- 2766 Aug, [facility] [place] [facility] [address] [id number] [place] [address]- 2044 Aug, [facility] [place] [facility] [address] [id number] [place] [address]- 0429 Aug, [facility] [place] [facility] [address] [id number] [place] [address]- 7280 Aug, [facility] [place] [facility] [address] [id number] [place] [address]- 6692 Aug, [facility] [place] [facility] [address] [id number] [place] [address]- 5097 Aug, [facility] [place] [facility] [address] [id number] [place] 6591 Aug, [facility] [place] [facility] [address] [id number] [place] [address]- 4206 Aug, [facility] [place] [facility] [address] [id number] [place] [address]- 9059 Aug, [facility] [place] [facility] [address] [id number] [place] [address]- 7546 Jul, [facility] [place] [facility] [address] [id number] [place] [address]- 7956 Jul, [facility] [place] [facility] [address] [id number] [place] [address]- 1060 Jun, [facility] [place] [facility] [address] [id number] [place] [address]- 2909 Jun, [facility] [place] [facility] [address] [id number] [place] [address]- 8409 Jun, [facility] [place] [facility] [address] [id number] [place] [address]- 4545 Jun, [facility] [place] [facility] [address] [id number] [place] [address]- 4062 Jun, [facility] [place] [facility] [address] [id number] [place] [address] May, [facility] [place] [facility] [address] [id number] [place] [address] May, [facility] [place] [facility] [address] [id number] [place] [address] 12 May, 2013 [facility] [place] [facility] [address] [id number] [place] [address] 06 May, 2013 [facility] [place] [facility] [address] [id number] [place] [address] May, [facility] [place] [facility] [address] [id number] [place] [address] Apr, [facility] [place] [facility] [address] [id number] [place] [address] Mar, [facility] [place] [facility] [address] [id number] [place] [address] Mar, [facility] [place] [facility] [address] [id number] [place] [address] Mar, [facility] [place] [facility] [address] [id number] [place] [address] Mar, [facility] [place] [facility] [address] [id number] [place] [address] Mar, [facility] [place] [facility] [address] [id number] [place] [address] Mar, [facility] [place] [facility] [address] [id number] [place] [address] Mar, [facility] [place] [facility] [address] [id number] [place] [address] Mar, [facility] [place] [facility] [address] [id number] [place] [address] Mar, [facility] [place] [facility] [address] [id number] [place] [address] Feb, [facility] [place] [facility] [address] [id number] [place] [address] Feb, [facility] [place] [facility] [address] [id number] [place] [address] Feb, [facility] [place] [facility] [address] [id number] [place] [address] January, [facility] [address] [id number] [place] [address] January, [facility] [address] [id number] [place] [address] January, [facility] [address] [id number] [place] [address] January, [facility] [address] [id number] [place] [address] Dec, [facility] [address] [id number] [place] [address] Dec, [facility] [address] [id number] [place] [address] Dec, [facility] [address] [id number] [place] [address] Dec, [facility] [address] [id number] [place] [address] Dec, [facility] [address] [id number] [place] [address] Dec, [facility] [address] [id number] [place] [address] Nov, [facility] [address] [id number] [place] [address] Oct, [facility] [address] [id number] [place] [address] Aug, [facility] [address] [id number] [place] [address] Aug, [facility] [address] [id number] [place] [address] Aug, [facility] [address] [id number] [place] [address] Aug, [facility] [place] [facility] [address] [id number] [place] [address] Aug, [facility] [place] [facility] [address] [id number] [place] [address] Aug, [facility] [place] [facility] [address] [id number] [place] [address] Aug, [facility] [place] [facility] [address] [id number] [place] [address] Aug, [facility] [place] [facility] [address] [id number] [place] [address] Aug, [facility] [place] [facility] [address] [id number] [place] [address] Aug, [facility] [place] [facility] [address] [id number] [place] [address] Aug, [facility] [place] [facility] [address] [id number], [place] [address] Jul, [facility] [place] [facility] [address] [id number] [place] [address] Jul, [facility] [place] [facility] [address] [facility] [id number], [place] [address] Jul, [facility] [place] [facility] [address] [id number], [place] [address] Jul, [facility] [place] [facility] [address] [id number], [place] [address] Jul, [facility] [place] [facility] [address] [id number] [id number] Jul, [facility] [place] [facility] [address] [id number], [place] [address] Jun, [facility] [place] [facility] [address] [id number], [place] [address] Jun, [facility] [place] [facility] [address] [id number], [place] [address] May, [facility] [address] [id number] [place] [address] Apr, [facility] [place] [facility] [address] [id number] [place] [address] Apr, [facility] [place] [facility] [address] [id number] [place] [address] Apr, [facility] [place] [facility] [address] [id number] [place] [address] Apr, [facility] [address] [id number] [place] [address] Apr, [facility] [place] [facility] [address] [id number] [place] [address] Mar, [facility] [address] [id number] [place] [address] Mar, [facility] [place] [facility] [address] [id number] [place] [address] January, [facility] [address] [id number] [place] [address] January, [facility] [address] [id number] [place] [address] Nov, [facility] [place] [facility] [address] [id number] [place] [address] Oct, [facility] [place] [facility] [address] [id number] [place] [address] Sep, [facility] [place] [facility] [address] [id number] [place] [address] Sep, [facility] [place] [facility] [address] [id number] [place] [address] Sep, [facility] [place] [facility] [address] [id number] [place] [address] Sep, [facility] [place] [facility] [address] [id number] [place] [address] Sep, [facility] [place] [facility] [address] [id number] [place] [address] Sep, [facility] [place] [facility] [address] [id number] [place] [address] Aug, [facility] [place] [facility] [address] [id number] [place] [address] Aug, [facility] [place] [facility] [address] [id number] [place] [address] Aug, [facility] [place] [facility] [address] [id number] [place] [address] Aug, [facility] [place] [facility] [address] [id number] [place] [address]- [address] Aug, [facility] [place] [facility] [address] [id number] [place] [address] Jul, [facility] [place] [facility] [address] [id number] [place] [address] Jul, [facility] [place] [facility] [address] [id number] [place] [address] Jul, [facility] [place] [facility] [address] [id number] [place] [address] Jun, [facility] [place] [facility] [address] [id number] [place] [address] Jun, [facility] [place] [facility] [address] [id number] [place] [address] Jun, [facility] [place] [facility] [address] [id number] [place] [address] January, [facility] [place] [facility] [address] [id number] [place] [address] Dec, [facility] [place] [facility] [address] [id number] [place] [address] Oct, [facility] [address] [facility] [id number], [place] [address] Oct, [facility] [address] [id number], [place] [address] Jun, [facility] [address] [facility] [id number], [place] [address] Aug, [facility] [address] [facility] [id number], [place] [address] Aug, [facility] [address] [facility] [id number], [place] [address] Jul, [facility] [address] [facility] [id number], [place] [address] Mar, IMMUNIZATIONS No Known Immunizations SOCIAL HISTORY Never Assessed REASON FOR VISIT Requests return call PLAN OF CARE VITAL SIGNS MEDICATIONS Medication Instructions Dosage Frequency Start Date End Date Duration Status Cefdinir 300 MG Orally every 12 hrs 1 capsule 12h Sep, 07 days Active RESULTS No Results PROCEDURES No Known procedures INSTRUCTIONS MEDICATIONS ADMINISTERED No Known Medications MEDICAL (GENERAL) HISTORY Type Description Date Medical History Hypertension Medical History Chronic Obstructive pulmonary disease diagnosed 2008 in [place]-PFT not done previously Medical History Gastrointestinal disorder [...]
--- OUTSIDE RECORDS SUMMARY | 2018-03-28 12:27 | XMS REPORT ---
Author Author BRETT JOHNSON Organization [facility] Address [address] [place] [address] Care Team Providers Care Sas Clinical Programmer Name Role Phone BRETT JOHNSON Unavailable PROBLEMS Type Condition ICD9-CM Code OCY57-HH Code Onset Dates Condition Status SNOMED Code Problem Oral phase dysphagia R13.11 Active 225631606 Problem Chronic sinusitis, unspecified J32.9 Active 99656246 Problem Chronic fatigue R53.82 Active 42441549 Problem Hypertension, benign I10 Active 28272488 Problem Vitamin B 12 deficiency E53.8 Active 76033388 Problem Generalized anxiety disorder F41.1 Active 53074089 Problem Chronic obstructive pulmonary disease, unspecified COPD type J44.9 Active 04157222 Problem Pericardial effusion I31.3 Active 793230035 Problem Pleural effusion on left J90 Active 81722431 Problem Other chronic pain G89.29 Active 24493372 Problem Gastroesophageal reflux disease without esophagitis K21.9 Active 773681631 Problem Agoraphobia with panic attacks F40.01 Active 643416117 Problem COPD with exacerbation J44.1 Active 513207462 ALLERGIES Substance Reaction Event Type Date Status MethylPREDNISolone goes crazy Drug Allergy Sep, Active Ketorolac Tromethamine tingling in lips Drug Allergy Sep, Active Augmentin 875-125 Mg Tablet Pt states this medication is to harsh on her stomach. Non Drug Allergy Sep, Active ENCOUNTERS Encounter Location Date Diagnosis [facility] [address] [facility] [id number] [address] Feb, [facility] [id number] [address] Feb, Flank pain R10.9 [facility] [address] [id number] [address] January, [facility] [address], [place] [address] January, Chronic obstructive pulmonary disease, unspecified COPD type J44.9 ; Pleural effusion on left J90 ; Pericardial effusion I31.3 and Generalized anxiety disorder F41.1 [facility] [address], [place] [address] January, Gastroenteritis K52.9 [facility] [id number] [place] [address] 79595- 8082 January, Flank pain R10.9 [facility] [address], [place] [address] January, [place] [address] [facility] [id number] [place] [address] Dec [facility] [address], [place] [address] Dec, [facility] [address], [place] [address] 4269 Dec, [facility] [address], [place] [address] 1327 Dec, [facility] [id number] [place] [address] 23742- 0850 Dec, [facility] [address], [place] [address] 3592 Dec, Flank pain R10.9 [facility] [address], [place] [address] 98[address] Dec, [facility] [address], [place] [address] 0908 Nov, [facility] [address] [id number] [address] 0032 Nov, [facility] [address], [place] [address] 8017 Nov, [facility] [id number] [place] [address] 44111- 1001 14 Nov, 2017 Pericardial effusion I31.3 ; Agoraphobia with panic attacks F40.01 and Vitamin B 12 deficiency E53.8 [facility] [id number] [place] [address] 94365- 4604 Nov, [facility] [id number] [place] [address] 77056- 5198 Nov, Pneumonia of both lungs due to infectious organism, unspecified part of lung J18.9 and Flank pain R10.9 [facility] [id number] [place] [address] 30060- 3645 Nov, Pneumonia of both lungs due to infectious organism, unspecified part of lung J18.9 and Gastroenteritis K52.9 [facility] [id number] [place] [address] 84120- 9422 Oct, Pneumonia of both lungs due to infectious organism, unspecified part of lung J18.9 and Vitamin B 12 deficiency E53.8 [facility] [id number] [place] [address] [id number] Oct, [facility] [id number] [place] [address] 70380- 6850 Oct, [facility] [id number] [place] [address] 00474- 9017 Oct, [facility] [id number] [place] [address] 41982- 0632 Oct, Flank pain R10.9 [facility] [id number] [place] [address] 70687- 1298 Oct, Other chronic pain G89.29 and Unspecified abdominal pain R10.9 [facility] [id number] [place] [address] 40170- 5059 Sep, Flank pain R10.9 [facility] [id number] [place] [address] 41271- 0114 Sep, [facility] [address], [place] [address]- 2348 Sep, [facility] [id number] [place] [address] 69534- 2361 Sep, Acute non-recurrent maxillary sinusitis J01.00 [facility] [id number] [place] [address] 73115- 1712 Sep, Acute non-recurrent maxillary sinusitis J01.00 and Vitamin B 12 deficiency E53.8 [facility] [id number] [place] [address] 51813- 0889 Sep, [facility] [id number] [place] [address] 84291- 7019 Sep, [facility] [id number] [place] [address] 33132- 5242 Sep, [facility] [id number] [place] [address] 68513- 7162 Sep, COPD with exacerbation J44.1 [facility] [id number] [place] [address] 35203- 8592 Sep, Chronic obstructive pulmonary disease, unspecified COPD type J44.9 [facility] [address] [place] [address] 74749- 9294 Aug, Flank pain R10.9 [facility] [id number] [place] [address] 43583- 1813 Jul, Flank pain R10.9 and Vitamin B 12 deficiency E53.8 [facility] [address] [place] [address] 98097- 0724 Jul, [facility] [id number] [place] [address] 34015- 3439 Jun, Gastroenteritis K52.9 [facility] [id number] [place] [address] 06892- 9663 May, Gastroenteritis K52.9 and Vitamin B 12 deficiency E53.8 [facility] [id number] [place] [address] 77997- 5907 Apr, Allergic conjunctivitis of left eye H10.12 and Chronic fatigue R53.82 [facility] [id number] [place] [address] 17081- 3225 Apr, Chronic sinusitis, unspecified J32.9 [facility] [address] 55406- 7441 Apr, [facility] [id number] [place] [address] 20232- 3308 Feb, [facility] [address] 21786- 7273 January, [facility] [address] 04630- 7737 Dec, [facility] [address] 66744- 5811 Oct, [facility] [id number] [place] [address] 92506- 6652 Sep, Oral phase dysphagia R13.11 and Vitamin B 12 deficiency E53.8 [place] [id number] [place] [address] 36292- 6678 Sep, [facility] [id number] [place] [address] 22398- 1052 Jul, [facility] [id number] [place] [address] 27461- 6424 Jul, [facility] [address] 77741- 6195 Jun, Bronchitis J40 ; Generalized anxiety disorder F41.1 and Chronic obstructive pulmonary disease, unspecified COPD type J44.9 [facility] [id number] [place] [address] 06775- 2747 Jun, [facility] [id number] [place] [address] 72176- 0951 14 Jun, 2016 [facility] [id number] [place] [address] 46611- 0471 13 Jun, 2016 [facility] [id number] [place] [address] 72050- 9015 15 May, 2016 Vitamin B 12 deficiency E53.8 ; Essential (primary) hypertension I10 ; Generalized anxiety disorder F41.1 ; Pain in joint, ankle and foot 719.47 ; Arthritis M19.90 ; Chronic obstructive pulmonary disease, unspecified COPD type J44.9 and Encounter for immunization Z23 [facility] [address] 99105- 2806 Apr, [facility] [id number] [place] [address] 35816- 5267 Apr, [facility] [id number] [place] [address] 30059- 7008 Mar, [facility] [id number] [place] [address] 48092- 7284 January, [facility] [id number] [place] [address] 19797- 0571 Dec, [facility] [id number] [place] [address] 82540- 1601 Oct, [facility] [id number] [place] [address] 75930- 6841 Oct, [facility] [id number] [place] [address] 01494- 7916 Oct, Hypertension, benign I10 and Vitamin B 12 deficiency E53.8 [facility] [id number] [place] [address] 32495- 7097 Oct, [facility] [id number] [place] [address] 09841- 3355 Oct, [facility] [id number] [place] [address] 05165- 6089 Oct, Irritable bowel syndrome with diarrhea K58.0 [place] [id number] [place] [address] 90119- 7978 Oct, [place] [id number] [place] [address] 01791- 5017 Oct, Vitamin B 12 deficiency E53.8 ; Hypertension, benign I10 and Chronic obstructive pulmonary disease, unspecified COPD type J44.9 [place] [id number] [place] [address] 88172- 3067 Sep, Irritable bowel syndrome with diarrhea K58.0 ; Hypertension , benign I10 ; Chronic obstructive pulmonary disease, unspecified COPD type J44.9 ; Edema, unspecified type R60.9 ; Vision changes H53.9 and Vitamin B 12 deficiency E53.8 [place] [id number] [place] [address] 92992- 5602 Sep, [place] [id number] [place] [address] 89572- 9740 Jul, Degenerative disc disease 722.6 [place] [id number] [place] [address] 88323- 3110 Jun, Pain in right leg M79.604 ; Encounter for immunization Z23 and Pain of left leg M79.605 [place] [id number] [place] [address] 22356- 2964 Jun, [place] [id number] [place] [address] 51503- 9147 Jun, [place] [address] 61621- 7633 Jun, Degenerative disc disease 722.6 [place] [id number] [place] [address] 82622- 2362 Jun, [place] [id number] [place] [address] 54844- 8382 28 May, 2015 Seizures 780.39 and Autonomic peripheral neuropathy 337.9 [facility] [id number] [place] [address] 10590- 9453 18 May, 2015 [facility] [id number] [place] [address] 95136- 1614 17 May, 2015 [facility] [id number] [place] [address] 14458- 9781 08 May, 2015 Degenerative disc disease 722.6 [facility] [id number] [place] [address] 79715- 7901 08 May, 2015 [facility] [id number] [place] [address] 17378- 1511 Mar, [facility] [id number] [place] [address] 53498- 1286 Mar, Degenerative disc disease 722.6 ; Spinal stenosis 724.00 and HTN (hypertension) 401.9 [facility] [id number] [place] [address] 15490- 6647 Feb, Cutaneous horn 702.8 [facility] [id number] [place] [address] 75269- 0650 Feb, Fatigue 780.79 [facility] [id number] [place] [address] 73921- 0809 Feb, Fatigue 780.79 ; Arthritis 716.90 ; Spinal stenosis 724.00 ; Sinusitis 473.9 and Cutaneous horn 702.8 [facility] [id number] [place] [address] 68978- 5985 January, [facility] [id number] [place] [address] 30807- 5052 14 Dec, 2014 [facility] [id number] [place] [address] 60846- 8893 Dec, [facility] [id number] [place] [address] 09152- 4953 Nov, [facility] [place] [facility] [address] [id number] [place] [address]- 4909 Nov, [facility] [place] [facility] [address] [id number] [place] [address]- 9006 Oct, [facility] [place] [facility] [address] [facility] [id number] [place] [address]- 9166 Oct, [facility] [place] [facility] [address] [id number] [place] [address]- 8243 Oct, [facility] [place] [facility] [address] [id number] [place] [address]- 7030 Oct, [facility] [place] [facility] [address] [id number] [place] [address]- 0002 Oct, [facility] [place] [facility] [address] [id number] [place] [address]- 8889 Oct, [facility] [place] [facility] [address] [id number] [place] [address]- 5687 Sep, [facility] [place] [facility] [address] [id number] [place] [address]- 5027 Sep, [facility] [place] [facility] [address] [facility] [id number] [place] [address]- 9409 Sep, [facility] [place] [facility] [address] [id number] [place] [address]- 3283 Sep, [facility] [place] [facility] [address] [id number] [place] [address]- 1162 Sep, [facility] [place] [facility] [address] [id number] [place] [address]- 3153 Sep, [facility] [place] [facility] [address] [id number] [place] [address]- 0772 Sep, [facility] [place] [facility] [address] [id number] [place] [address]- 4890 Sep, [facility] [place] [facility] [address] [id number] [place] [address]- 1023 16 Sep, 2014 [facility] [place] [facility] [address] [id number] [place] [address]- 2244 Sep, [facility] [place] [facility] [address] [id number] [place] [address]- 0220 Sep, [facility] [place] [facility] [address] [id number] [place] [address]- 0671 Sep, [facility] [place] [facility] [address] [id number] [place] [address]- 8026 Sep, [facility] [place] [facility] [address] [id number] [place] [address]- 6544 Sep, [facility] [place] [facility] [address] [id number] [place] [address]- 9810 Aug, [facility] [place] [facility] [address] [id number] [place] [address]- 1382 Aug, [facility] [place] [facility] [address] [id number] [place] [address]- 4742 Aug, [facility] [place] [facility] [address] [id number] [place] [address]- 4900 Aug, [facility] [place] [facility] [address] [id number] [place] [address]- 9193 Jul, [facility] [place] [facility] [address] [id number] [place] [address]- 3049 Jul, [facility] [place] [facility] [address] [id number] [place] [address]- 9916 May, [facility] [place] [facility] [address] [id number] [place] [address]- 3042 May, [facility] [place] [facility] [address] [id number] [place] [address]- 1808 May, [facility] [place] [facility] [address] [id number] [place] [address]- 6472 May, [facility] [place] [facility] [address] [id number] [place] [address]- 9069 May, [facility] [place] [facility] [address] [id number] [place] [address]- 0992 May, [facility] [place] [facility] [address] [id number] [place] [address]- 7675 Apr, [facility] [place] [facility] [address] [id number] [place] [address]- 4600 Apr, [facility] [place] [facility] [address] [id number] [place] [address]- 4134 Mar, [facility] [place] [facility] [address] [id number] [place] [address]- 2387 Mar, [facility] [place] [facility] [address] [id number] [place] [address]- 3735 Mar, [facility] [place] [facility] [address] [id number] [place] [address]- 6512 Mar, [facility] [place] [facility] [address] [id number] [place] [address]- 7696 Mar, [facility] [place] [facility] [address] [id number] [place] [address]- 0873 Mar, [facility] [place] [facility] [address] [id number] [place] [address]- 9224 Mar, [facility] [place] [facility] [address] [id number] [place] [address]- 9489 Mar, [facility] [place] [facility] [address] [id number] [place] [address]- 0441 Feb, [facility] [place] [facility] [address] [id number] [place] [address]- 7682 Feb, [facility] [place] [facility] [address] [id number] [place] [address]- 9519 January, [facility] [place] [facility] [address] [id number] [place] [address]- 3847 January, [facility] [address] [id number] [place] [address]- 5226 January, [facility] [place] [facility] [address] [id number] [place] [address]- 4278 January, [facility] [place] [facility] [address] [id number] [place] [address]- 7944 Dec, [facility] [place] [facility] [address] [id number] [place] [address]- 3318 Dec, [facility] [place] [facility] [address] [id number] [place] [address]- 0537 Oct, [facility] [place] [facility] [address] [id number] [place] [address]- 7677 Oct, [facility] [place] [facility] [address] [id number] [place] [address]- 8206 Oct, [facility] [place] [facility] [address] [id number] [place] [address]- 5469 Oct, [facility] [place] [facility] [address] [id number] [place] [address]- 3873 Sep, [facility] [place] [facility] [address] [id number] [place] [address]- 0143 Sep, [facility] [place] [facility] [address] [id number] [place] [address]- 2761 Aug, [facility] [place] [facility] [address] [id number] [place] [address]- 7871 Aug, [facility] [place] [facility] [address] [id number] [place] [address]- 4768 Aug, [facility] [place] [facility] [address] [id number] [place] [address]- 5145 Aug, [facility] [place] [facility] [address] [id number] [place] [address]- 3259 Aug, [facility] [place] [facility] [address] [id number] [place] 4498 Aug, [facility] [place] [facility] [address] [id number] [place] 6520 Aug, [facility] [place] [facility] [address] [id number] [place] [address]- 8275 Aug, [facility] [place] [facility] [address] [id number] [place] [address] 2548 Aug, [facility] [place] [facility] [address] [id number] [place] [address]- 7252 Aug, [facility] [place] [facility] [address] [id number] [place] [address]- 4819 Jul, [facility] [place] [facility] [address] [id number] [place] [address]- 6216 Jul, [facility] [place] [facility] [address] [id number] [place] [address]- 3714 Jun, [facility] [place] [facility] [address] [id number] [place] [address]- 9807 Jun, [facility] [place] [facility] [address] [id number] 0012 Jun, [facility] [place] [facility] [address] [id number], [place] [address]- 8812 Jun, [facility] [place] [facility] [address] [id number], [place] [address]- 4350 Jun, [facility] [place] [facility] [address] [id number] [place] [address]- 1785 May, [facility] [place] [facility] [address] [id number] [place] [address]- 2044 May, [facility] [place] [facility] [address] [id number], [place] [address]- 9593 12 May, 2013 [facility] [place] [facility] [address] [id number], [place] [address]- 8449 06 May, 2013 [facility] [address] [id number] [place] [address]- 2808 May, [facility] [place] [facility] [address] [id number] [place] [address]- 9797 Apr, [facility] [place] [facility] [address] [id number] [place] [address] Mar, [facility] [place] [facility] [address] [id number] [place] [address] Mar, [facility] [place] [facility] [address] [id number] [place] [address] Mar, [facility] [place] [facility] [address] [id number] [place] [address] Mar, [facility] [address] [id number] [place] [address] Mar, [facility] [place] [facility] [address] [id number] [place] [address] Mar, [facility] [place] [facility] [address] [id number] [place] [address] Mar, [facility] [place] [facility] [address] [id number] [place] [address] Mar, [facility] [place] [facility] [address] [id number] [place] [address] Mar, [facility] [place] [facility] [address] [id number] [place] [address] Feb, [facility] [place] [facility] [address] [id number] [place] [address] Feb, [facility] [place] [facility] [address] [id number] [place] [address] Feb, [facility] [place] [facility] [address] [id number] [place] [address] January, [facility] [place] [facility] [address] [id number] [place] [address] 14 Jan, 2013 [facility] [address] [id number] [place] [address] January, [facility] [address] [id number] [place] [address] January, [facility] [address] [id number] [place] [address] 18 Dec, 2012 [facility] [address] [id number] [place] [address] Dec, [facility] [address] [id number] [place] [address] Dec, [facility] [address] [id number] [place] [address] Dec, [facility] [address] [id number] [place] [address] Dec, [facility] [address] [id number] [place] [address] Dec, [facility] [address] [id number] [place] [address] Nov, [facility] [address] [id number] [place] [address] Oct, [facility] [address] [id number] [place] [address] Aug, [facility] [address] [id number] [place] [address] Aug, [facility] [address] [id number] [place] [address] Aug, [facility] [address] [id number] [place] [address] Aug, [facility] [address] [id number] [place] [address] Aug, [facility] [place] [facility] [address] [id number] [place] [address] Aug, [facility] [place] [facility] [address] [id number] [place] [address] Aug, [facility] [place] [facility] [address] [id number] [place] [address] Aug, [facility] [place] [facility] [address] [id number] [place] [address] Aug, [facility] [place] [facility] [address] [id number] [place] [address] Aug, [facility] [place] [facility] [address] [id number] [place] [address] Aug, [facility] [place] [facility] [address] [facility] [id number] [place] [address] Jul, [facility] [place] [facility] [address] [id number], [place] [address] Jul, [facility] [place] [facility] [address] [id number] [place] [address] Jul, [facility] [place] [facility] [address] [id number], [place] [address] Jul, [facility] [place] [facility] [address] [id number], [place] [address] Jul, [facility] [place] [facility] [address] [id number], [place] [address] Jul, [facility] [place] [facility] [address] [id number] [place] [address] Jun, [facility] [place] [facility] [address] [id number], [place] [address] Jun, [facility] [place] [facility] [address] [facility] [id number], [place] [address] May, [facility] [place] [facility] [address] [id number] [place] [address] Apr, [facility] [place] [facility] [address] [id number] [place] [address] Apr, [facility] [place] [facility] [address] [id number] [place] [address] Apr, [facility] [place] [facility] [address] [id number] [place] [address] Apr, [facility] [place] [facility] [address] [id number] [place] [address] Apr, [facility] [place] [facility] [address] [id number] [place] [address] Mar, [facility] [place] [facility] [address] [id number] [place] [address] Mar, [facility] [place] [facility] [address] [id number] [place] [address] January, [facility] [place] [facility] [address] [id number] [place] [address] January, [facility] [place] [facility] [address] [id number] [place] [address] Nov, [facility] [place] [facility] [address] [id number] [place] [address] Oct, [facility] [place] [facility] [address] [id number] [place] [address] Sep, [facility] [place] [facility] [address] [id number] [place] [address] Sep, [facility] [place] [facility] [address] [id number] [place] [address] Sep, [facility] [place] [facility] [address] [id number] [place] [address] Sep, [facility] [place] [facility] [address] [id number] [place] [address] Sep, [facility] [place] [facility] [address] [id number] [place] [address] Sep, [facility] [place] [facility] [address] [id number] [place] [address] Aug, [facility] [place] [facility] [address] [id number] [place] [address] Aug, [facility] [place] [facility] [address] [id number] [place] [address] Aug, [facility] [address] [id number] [place] [address] Aug, [facility] [place] [facility] [address] [id number] [place] [address] Aug, [facility] [address] [id number] [place] [address] Jul, [facility] [address] [id number] [place] [address] Jul, [facility] [place] [facility] [address] [id number] [place] [address] Jul, [facility] [place] [facility] [address] [id number] [place] [address] Jun, [facility] [place] [facility] [address] [id number] [place] [address] Jun, [facility] [place] [facility] [address] [id number] [place] [address] Jun, [facility] [place] [facility] [address] [id number] [place] [address] January, [facility] [place] [facility] [address] [id number] [place] [address] Dec, [facility] [place] [facility] [address] [id number] [place] [address] Oct, [facility] [place] [facility] [address] [id number], [place] [address] Oct, [facility] [address] [facility] [id number], [place] [address] Jun, [facility] [address] [facility] [id number], [place] [address] Aug, [facility] [address] [facility] [id number], [place] [address] Aug, [place] [address] [facility] [id number], [place] [address] Jul, [place] [address] [facility] [id number], [place] [address] Mar, IMMUNIZATIONS No Known Immunizations SOCIAL HISTORY Never Assessed REASON FOR VISIT VC F/U clinical pneumonia , Pain in chest with breathing, coughing, and activity. CBrumbackRN PLAN OF CARE VITAL SIGNS Height 67 in 2017-09-25 Weight 182.8 lbs 2017-09-25 Temperature 98.9 degrees Fahrenheit 2017-09-25 Heart Rate 76 bpm 2017-09-25 Respiratory Rate 22 2017-09-25 Oximetry on room air:95 % 2017-09-25 BMI 28.63 kg/m2 2017-09-25 Blood pressure systolic 120 mmHg 2017-09-25 Blood pressure diastolic 68 mmHg 2017-09-25 MEDICATIONS Medication Instructions Dosage Frequency Start Date End Date Duration Status Acidophilus 100 mg Orally Once a day 1 capsule 24h 18 May, 2017 Active Cyclobenzaprine HCl 10 MG TAKE ONE TABLET BY MOUTH TWICE DAILY NEEDED 30 Not-Taking Advair Diskus 500-50 MCG/DOSE Inhalation Twice a day 1 puffs by Inhalation route 2 times per day 12h 30 Active Diclofenac Sodium 75 MG Orally Twice a day 1 tablet with food or milk 12h Sep, January, 30 day(s) Active Tramadol HCl 50 MG Orally every 6 hrs 1 tablet as needed 6h Mar, Not-Taking Omeprazole 20 mg 2 capsules 24h 30 Active Colace 100 MG Orally Once a day 1 capsule as needed 24h Active ProAir HFA 108 (90 Base) MCG/ACT 2 puffs as needed 6h Active Ranitidine HCl 150 MG 1 tablet as needed 12h 30 Active Dicyclomine HCl 20 mg Orally Four times a day PRN 1 tablet 30 Active Cetirizine HCl 10 mg 1 tablet 24h 30 Active Albuterol Sulfate (2.5 MG/3ML) 0.083% Inhalation every 4 hrs 3 ml 4h Oct Active Cefdinir 300 MG Orally every 12 hrs 1 capsule 12h Active Fluticasone Propionate 50 MCG/ACT Nasally 2 times a day 1 spray in each nostril 12h 30 days Active Zanaflex 4 MG Orally 2 times a day 1 tablet as needed 12h Sep, Active Cromolyn Sodium 4 % Ophthalmic Four times a day 1 drop into affected eye 6h Apr, Not-Taking Atenolol 100 mg 0.5 tablet by Oral route 2 times per day 12h 30 Active Amiodarone HCl 200 MG Orally Once a day 1 tablet 24h Active Xanax 0.5 MG Orally 3 times a day take 1 tablet 8h Nov, 28 days Active RESULTS Name Result Date Reference Range Xray : Chest 2 View (IN HOUSE) 2017-09-25 PROCEDURES Procedure Date Ordered Result Body Site MEASURE BLOOD OXYGEN LEVEL Sep 25, 2017 X-RAY EXAM CHEST 2 VIEWS Sep 25, 2017 INSTRUCTIONS MEDICATIONS ADMINISTERED No Known Medications MEDICAL (GENERAL) HISTORY Type Description Date Medical History Hypertension Medical History Chronic Obstructive pulmonary disease diagnosed 2008 in [place]-PFT not done previously Medical History Gastrointestinal disorder [...]
--- OUTSIDE RECORDS SUMMARY | 2018-03-28 12:29 | XMS REPORT ---
Author Author BRETT JOHNSON Organization [facility] Address [address] [place] [address] Care Team Providers [employer] Manager Name Role Phone BRETT JOHNSON Unavailable PROBLEMS Type Condition ICD9-CM Code VHT41-MM Code Onset Dates Condition Status SNOMED Code Problem Oral phase dysphagia R13.11 Active 241668041 Problem Chronic sinusitis, unspecified J32.9 Active 56001355 Problem Chronic fatigue R53.82 Active 09407439 Problem Hypertension, benign I10 Active 09283614 Problem Vitamin B 12 deficiency E53.8 Active 19549295 Problem Generalized anxiety disorder F41.1 Active 32480731 Problem Chronic obstructive pulmonary disease, unspecified COPD type J44.9 Active 47784541 Problem Pericardial effusion I31.3 Active 481698048 Problem Pleural effusion on left J90 Active 93465469 Problem Other chronic pain G89.29 Active 88205262 Problem Gastroesophageal reflux disease without esophagitis K21.9 Active 017954716 Problem Agoraphobia with panic attacks F40.01 Active 232104678 Problem COPD with exacerbation J44.1 Active [id number] ALLERGIES No Information ENCOUNTERS Encounter Location Date Diagnosis [place] [address] [address] Feb, [place] [address] [place] [id number] [place] [address] 22402- 4778 Feb, Flank pain R10.9 [place] [address] [address] 6[address] January, [place] [address] [place] [id number] [place] [address] 88801- 8953 January, Chronic obstructive pulmonary disease, unspecified COPD type J44.9 ; Pleural effusion on left J90 ; Pericardial effusion I31.3 and Generalized anxiety disorder F41.1 [place] [address] [address] 10 Jan, 2018 Gastroenteritis K52.9 [facility] [id number] [place] [address] 92290- 7043 January, Flank pain R10.9 [facility] [address] [address] January, [facility] [id number] [id number] [place] [address] Dec [facility] [address] [address] 9926 Dec, [facility] [id number] [place] [address] 98033- 2647 Dec, [facility] [address] [address] 9406 Dec, [facility] [id number] [place] [address] 88978- 3685 Dec, [facility] [address] [address] 8696 Dec, Flank pain R10.9 [facility] [address] [address] 5[address] Dec, [facility] [address] [address] 9725 Nov, [facility] [address] [address] 2170 Nov, [facility] [address] [address] 4526 Nov, [facility] [id number] [place] [address] 54849- 5813 14 Nov, 2017 Pericardial effusion I31.3 ; Agoraphobia with panic attacks F40.01 and Vitamin B 12 deficiency E53.8 [facility] [address] [address] 4688 Nov, [facility] [id number] [place] [address] 13954- 0788 Nov, Pneumonia of both lungs due to infectious organism, unspecified part of lung J18.9 and Flank pain R10.9 [facility] [id number] [place] [address] 17951- 2552 Nov, Pneumonia of both lungs due to infectious organism, unspecified part of lung J18.9 and Gastroenteritis K52.9 [facility] [id number] [place] [address] 58918- 7373 Oct, Pneumonia of both lungs due to infectious organism, unspecified part of lung J18.9 and Vitamin B 12 deficiency E53.8 [facility] [address] [place] [id number] [place] [address] [id number] Oct, [facility] [address] [id number] [place] [address] 41929- 0956 Oct, [facility] [id number] [place] [address] 88263- 5279 Oct, [facility] [id number] [place] [address] 40910- 9470 Oct, Flank pain R10.9 [facility] [id number] [place] [address] 36120- 9011 Oct, Other chronic pain G89.29 and Unspecified abdominal pain R10.9 [facility] [id number] [place] [address] 29027- 7780 Sep, Flank pain R10.9 [facility] [address] [place] [id number] [place] [address] 97122- 8328 Sep, [facility] [id number] [place] [address] 44497- 4144 Sep, [facility] [address] [id number] [place] [address] 39952- 3427 Sep, Acute non-recurrent maxillary sinusitis J01.00 [facility] [address] [id number] [place] [address] 49933- 3319 Sep, Acute non-recurrent maxillary sinusitis J01.00 and Vitamin B 12 deficiency E53.8 [facility] [address] [place] [id number] [place] [address] 54246- 7095 Sep, [facility] [address] 71957- 5149 Sep, [facility] [address] [place] [id number] [place] [address] 38599- 5698 Sep, [facility] [address] 47325- 2119 Sep, COPD with exacerbation J44.1 [place] [address] [place] [id number] [place] [address] 94473- 2165 Sep, Chronic obstructive pulmonary disease, unspecified COPD type J44.9 [facility] [address] [place] [id number] [place] [address] 66208- 6818 Aug, Flank pain R10.9 [place] [address] [place] [id number] [place] [address] 84902- 3097 Jul, Flank pain R10.9 and Vitamin B 12 deficiency E53.8 [place] [address] [place] [id number] [place] [address] 63429- 3344 Jul, [facility] [address] [place] [id number] [place] [address] 94729- 5907 Jun, Gastroenteritis K52.9 [place] [address] [place] [id number] [place] [address] 58960- 4063 May, Gastroenteritis K52.9 and Vitamin B 12 deficiency E53.8 [place] [address] [place] [id number] [place] [address] 49624- 8865 Apr, Allergic conjunctivitis of left eye H10.12 and Chronic fatigue R53.82 [place] [address] [place] [id number] [place] [address] 71602- 8888 Apr, Chronic sinusitis, unspecified J32.9 [facility] [address] [place] [id number] [place] [address] 27341- 7478 Apr, [facility] [address] [place] [address] [id number] [place] [address] 04790- 7739 Feb, [facility] [address] [place] [id number] [place] [address] 71572- 0914 January, [facility] [address] [place] [id number] [place] [address] 88739- 4970 Dec, [facility] [address] [place] [address] [id number] [place] [address] 34091- 0651 Oct, [facility] [address] [place] [address] [id number] [place] [address] 31651- 3690 Sep, Oral phase dysphagia R13.11 and Vitamin B 12 deficiency E53.8 [facility] [address] [place] [id number] [place] [address] 54448- 5699 Sep, [facility] [address] [place] [id number] [place] [address] 14810- 8703 Jul, [facility] [address] [place] [address] [id number] [place] [address] 73333- 7282 Jul, [facility] [address] [place] [address] [id number] [place] [address] 51997- 1619 Jun, Bronchitis J40 ; Generalized anxiety disorder F41.1 and Chronic obstructive pulmonary disease, unspecified COPD type J44.9 [facility] [address] [place] [id number] [place] [address] 26635- 0678 Jun, [facility] [address] [place] [address] [id number] [place] [address] 11989- 4914 Jun, [facility] [address] [place] [address] [id number] [place] [address] 73417- 1598 Jun, [facility] [address] [place] [address] [id number] [place] [address] 64297- 6807 May, Vitamin B 12 deficiency E53.8 ; Essential (primary) hypertension I10 ; Generalized anxiety disorder F41.1 ; Pain in joint, ankle and foot 719.47 ; Arthritis M19.90 ; Chronic obstructive pulmonary disease, unspecified COPD type J44.9 and Encounter for immunization Z23 [place] [address] 60980- 5883 Apr, [facility] [address] 65762- 0391 Apr, [place] [address] 31055- 2722 Mar, [place] [address] 28133- 7192 January, [place] [address] 71322- 9474 Dec, [facility] [address] [place] [id number] [place] [address] 59039- 8746 Oct, [place] [address] 40850- 7833 Oct, [place] [address] [place] [id number] [place] [address] 24091- 4368 Oct, Hypertension, benign I10 and Vitamin B 12 deficiency E53.8 [facility] [address] [place] [id number] [place] [address] 39840- 5878 Oct, [place] [address] [place] [id number] [place] [address] 06743- 7638 Oct, [facility] [address] [place] [id number] [place] [address] 28730- 0721 Oct, Irritable bowel syndrome with diarrhea K58.0 [place] [address] 68014- 8194 Oct, [place] [address] [place] [id number] [place] [address] 63697- 6842 Oct, Vitamin B 12 deficiency E53.8 ; Hypertension, benign I10 and Chronic obstructive pulmonary disease, unspecified COPD type J44.9 [place] [address] [place] [id number] [place] [address] 68966- 6588 Sep, Irritable bowel syndrome with diarrhea K58.0 ; Hypertension , benign I10 ; Chronic obstructive pulmonary disease, unspecified COPD type J44.9 ; Edema, unspecified type R60.9 ; Vision changes H53.9 and Vitamin B 12 deficiency E53.8 [place] [address] 30791- 1855 Sep, [place] [address] [place] [id number] [place] [address] 39956- 3638 Jul, Degenerative disc disease 722.6 [place] [address] 12473- 2646 Jun, Pain in right leg M79.604 ; Encounter for immunization Z23 and Pain of left leg M79.605 [place] [address] [place] [id number] [place] [address] 03608- 0096 Jun, [place] [address] [place] [id number] [place] [address] 05112- 0253 Jun, [place] [address] [place] [id number] [place] [address] 05551- 1848 Jun, Degenerative disc disease 722.6 [place] [address] [place] [id number] [place] [address] 89467- 7271 Jun, [place] [address] 17081- 8335 May, Seizures 780.39 and Autonomic peripheral neuropathy 337.9 [place] [address] [place] [id number] [place] [address] 32150- 4420 May, [place] [address] [place] [id number] [place] [address] 19892- 1790 May, [facility] [address] [place] [id number] [place] [address] 555210- 2783 May, Degenerative disc disease 722.6 [facility] [address] [place] [id number] [place] [address] 03303- 0256 May, [facility] [address] 98805- 0509 Mar, [facility] [address] [place] [id number] [place] [address] 34639- 4070 Mar, Degenerative disc disease 722.6 ; Spinal stenosis 724.00 and HTN (hypertension) 401.9 [facility] [address] [place] [id number] [place] [address] 43884- 5486 Feb, Cutaneous horn 702.8 [facility] [address] [place] [id number] [place] [address] 27088- 9813 Feb, Fatigue 780.79 [facility] [address] [place] [id number] [place] [address] 09365- 5471 Feb, Fatigue 780.79 ; Arthritis 716.90 ; Spinal stenosis 724.00 ; Sinusitis 473.9 and Cutaneous horn 702.8 [facility] [address] [place] [address] 83970- 9814 January, [facility] [address] [place] [id number] [place] [address] 29971- 9660 Dec, [facility] [address] [place] [id number] [place] [address] 63414- 9291 Dec, [facility] [address] [place] [id number] [place] [address] 26329- 9536 Nov, [facility] [address] [place] [id number] [place] [address] 22485- 7406 Nov, [facility] [address] [place] [address] [id number] [place] [address] 67506- 8069 Oct, [facility] [place] [facility] [address] [id number] [place] [address]- 7348 Oct, [facility] [place] [facility] [address] [id number] [place] [address]- 3746 Oct, [facility] [place] [facility] [address] [id number] [place] [address]- 5709 Oct, [facility] [place] [facility] [address] [id number] [place] [address]- 0717 Oct, [facility] [place] [facility] [address] [id number] [place] [address]- 0916 Oct, [facility] [place] [facility] [address] [id number] [place] [address]- 1715 Sep, [facility] [address] [id number] [place] [address]- 6476 Sep, [facility] [place] [facility] [address] [id number] [place] [address]- 5158 Sep, [facility] [place] [facility] [address] [id number] [place] [address]- 1138 Sep, [facility] [place] [facility] [address] [id number] [place] [address]- 6903 Sep, [facility] [place] [facility] [address] [id number] [place] [address]- 4841 Sep, [facility] [place] [facility] [address] [id number] [address]- 9468 Sep, [facility] [place] [facility] [address] [id number] [place] [address]- 5684 Sep, [facility] [place] [facility] [address] [id number] [place] [address]- 4917 Sep, [facility] [place] [facility] [address] [id number] [address]- 3656 Sep, [facility] [place] [facility] [address] [id number] [place] [address]- 2906 16 Sep, 2014 [facility] [place] [facility] [address] [id number] [place] [address]- 4342 Sep, [facility] [place] [facility] [address] [id number] [place] [address]- 5987 Sep, [facility] [place] [facility] [address] [id number] [place] [address]- 3368 Sep, [facility] [place] [facility] [address] [id number] [place] [address]- 9497 Aug, [facility] [place] [facility] [address] [id number] [place] [address]- 6270 Aug, [facility] [place] [facility] [address] [id number] [place] [address]- 7095 Aug, [facility] [place] [facility] [address] [id number] [place] [address]- 9136 Aug, [facility] [place] [facility] [address] [id number] [place] [address]- 3997 Jul, [facility] [place] [facility] [address] [id number] [place] [address]- 8810 Jul, [facility] [place] [facility] [address] [id number] [place] [address]- 0713 23 May, 2014 [facility] [place] [facility] [address] [id number] [place] [address]- 1755 23 May, 2014 [facility] [place] [facility] [address] [id number] [place] [address]- 1726 23 May, 2014 [facility] [place] [facility] [address] [id number] [place] [address] 2542 23 May, 2013 [facility] [place] [facility] [address] [id number] [place] [address]- 8666 08 May, 2014 [facility] [place] [facility] [address] [id number] [place] [address]- 0039 May, [facility] [place] [facility] [address] [id number] [place] [address]- 7345 Apr, [facility] [place] [facility] [address] [id number] [place] [address]- 0519 Apr, [facility] [place] [facility] [address] [id number] [place] [address]- 5480 Mar, [facility] [place] [facility] [address] [id number] [place] [address]- 9796 Mar, [facility] [place] [facility] [address] [id number] [place] [address]- 6466 Mar, [facility] [place] [facility] [address] [id number] [place] [address]- 4273 Mar, [facility] [place] [facility] [address] [id number] [place] [address]- 4144 Mar, [facility] [place] [facility] [address] [id number] [place] [address]- 8496 Mar, [facility] [place] [facility] [address] [id number] [place] [address]- 3222 Mar, [facility] [place] [facility] [address] [id number] [place] [address]- 5688 Mar, [facility] [place] [facility] [address] [id number] [place] [address]- 4672 Feb, [facility] [place] [facility] [address] [id number] [place] [address]- 3648 Feb, [facility] [place] [facility] [address] [id number] [place] [address]- 4992 January, [facility] [place] [facility] [address] [id number] [place] [address]- 0416 January, [facility] [place] [facility] [address] [id number] [place] [address]- 1730 January, [facility] [place] [facility] [address] [id number] [place] [address]- 9755 January, [facility] [address] [id number] [place] [address]- 3216 Dec, [facility] [place] [facility] [address] [id number] [place] [address]- 8096 Dec, [facility] [place] [facility] [address] [id number] [place] [address]- 4266 Oct, [facility] [place] [facility] [address] [id number] [place] [address]- 9545 Oct, [facility] [place] [facility] [address] [id number] [place] [address]- 3425 Oct, [facility] [place] [facility] [address] [id number] [place] [address]- 7426 Oct, [facility] [place] [facility] [address] [id number] [place] [address]- 2638 Sep, [facility] [address] [id number] [place] [address]- 7076 Sep, [facility] [place] [facility] [address] [id number] [place] [address]- 0018 Aug, [facility] [address] [id number] [place] [address]- 6296 Aug, [facility] [place] [facility] [address] [id number] [place] [address] 2546 Aug, [facility] [place] [facility] [address] [id number] [place] [address]- 2543 Aug, [facility] [place] [facility] [address] [id number] [place] 0106 Aug, [facility] [place] [facility] [address] [id number] [place] [address]- 2546 Aug, [facility] [place] [facility] [address] [id number] [place] 7073 Aug, [facility] [place] [facility] [address] [id number] [place] [address]- 0299 Aug, [facility] [place] [facility] [address] [id number] [place] [address]- 6224 Aug, [facility] [place] [facility] [address] [id number] [place] [address]- 7666 Aug, [facility] [place] [facility] [address] [id number] [place] [address]- 5164 Jul, [facility] [place] [facility] [address] [id number] [place] 2367 Jul, [facility] [place] [facility] [address] [id number] [place] [address]- 0341 Jun, [facility] [place] [facility] [address] [id number] [place] [address]- 5858 Jun, [facility] [place] [facility] [address] [id number] [place] [address]- 1099 Jun, [facility] [place] [facility] [address] [id number] [place] [address]- 6156 Jun, [facility] [place] [facility] [address] [id number] [address]- 6529 Jun, [facility] [place] [facility] [address] [id number] [place] [address]- 5122 13 May, 2012 [facility] [place] [facility] [address] [id number] [place] [address] 13 May, 2012 [facility] [place] [facility] [address] [id number] [place] [address] 12 May, 2013 [facility] [place] [facility] [address] [id number] [place] [address] 06 Sep, 2012 [facility] [place] [facility] [address] [id number] [place] [address] 03 Sep, 2012 [facility] [place] [facility] [address] [id number] [place] [address] Apr, [facility] [address] [id number] [place] [address] Mar, [facility] [address] [id number] [place] [address] Mar, [facility] [address] [id number] [place] [address] Mar, [facility] [address] [id number] [place] [address] Mar, [facility] [address] [id number] [place] [address] Mar, [facility] [address] [id number] [place] [address] Mar, [facility] [address] [id number] [place] [address] Mar, [facility] [address] [id number] [place] [address] Mar, [facility] [address] [id number] [place] [address] Mar, [facility] [address] [id number] [place] [address] Feb, [facility] [address] [id number] [place] [address] Feb, [facility] [place] [facility] [address] [id number] [place] [address] Feb, [facility] [place] [facility] [address] [id number] [place] [address] January, [facility] [place] [facility] [address] [id number] [place] [address] January, [facility] [address] [id number] [place] [address] January, [facility] [address] [id number] [place] [address] January, [facility] [address] [id number] [place] [address] 18 Dec, 2012 [facility] [place] [facility] [address] [id number] [place] [address] Dec, [facility] [address] [id number] [place] [address] Dec, [facility] [address] [id number] [place] [address] Dec, [facility] [address] [id number] [place] [address] Dec, [facility] [address] [id number] [place] [address] Dec, [facility] [address] [id number] [place] [address] Nov, [facility] [address] [id number] [place] [address] Oct, [facility] [address] [id number] [place] [address] Aug, [facility] [address] [id number] [place] [address] Aug, [facility] [address] [id number] [place] [address] Aug, [facility] [place] [facility] [address] [id number] [place] [address] Aug, [facility] [place] [facility] [address] [id number] [place] [address] Aug, [facility] [place] [facility] [address] [id number] [place] [address] Aug, [facility] [place] [facility] [address] [id number] [place] [address] Aug, [facility] [place] [facility] [address] [id number] [place] [address] Aug, [facility] [place] [facility] [address] [id number] [place] [address] Aug, [facility] [place] [facility] [address] [facility] [id number] [place] [address] Aug, [facility] [place] [facility] [address] [id number] [place] [address]- [address] Aug, [facility] [place] [facility] [address] [id number] [place] [address] Jul, [facility] [place] [facility] [address] [id number] [place] [address] Jul, [facility] [place] [facility] [address] [address] [id number] [place] [address] Jul, [facility] [place] [facility] [address] [id number] [place] [address] Jul, [facility] [place] [facility] [address] [id number] [place] [address] Jul, [facility] [place] [facility] [address] [id number] [place] [address] Jul, [facility] [place] [facility] [address] [id number] [place] [address] Jun, [facility] [place] [facility] [address] [id number] [place] [address] Jun, [facility] [place] [facility] [address] [id number] [place] [address] May, [facility] [place] [facility] [address] [id number] [place] [address] Apr, [facility] [place] [facility] [address] [id number] [place] [address] Apr, [facility] [place] [facility] [address] [id number] [place] [address] Apr, [facility] [address] [id number] [place] [address] Apr, [facility] [address] [id number] [place] [address] Apr, [facility] [address] [id number] [place] [address] Mar, [facility] [address] [id number] [place] [address] Mar, [facility] [address] [id number] [place] [address] January, [facility] [address] [id number] [place] [address] January, [facility] [address] [id number] [place] [address] Nov, [facility] [address] [id number] [place] [address] Oct, [facility] [address] [id number] [place] [address] Sep, [facility] [address] [id number] [place] [address] Sep, [facility] [address] [id number] [place] [address] Sep, [facility] [address] [id number] [place] [address] Sep, [facility] [place] [facility] [address] [id number] [place] [address] Sep, [facility] [address] [id number] [place] [address] Sep, [facility] [address] [id number] [place] [address] Aug, [facility] [place] [facility] [address] [id number] [place] [address] 14 Aug, 2011 [facility] [place] [facility] [address] [id number] [place] [address] Aug, [facility] [place] [facility] [address] [id number] [place] [address] Aug, [facility] [place] [facility] [address] [id number] [place] [address] Aug, [facility] [place] [facility] [address] [id number] [place] [address] Jul, [facility] [place] [facility] [address] [id number] [place] [address] Jul, [facility] [place] [facility] [address] [id number] [place] [address] Jul, [facility] [place] [facility] [address] [id number] [place] [address] Jun, [facility] [place] [facility] [address] [id number] [place] [address] Jun, [facility] [place] [facility] [address] [id number] [place] [address] Jun, [facility] [place] [facility] [address] [id number] [place] [address] January, [facility] [place] [facility] [address] [id number] [place] [address] Dec, [facility] [place] [facility] [address] [id number] [place] [address] Oct, [facility] [place] [facility] [address] [id number] [place] [address] Oct, [facility] [place] [facility] [address] [id number] [place] [address] Jun, [facility] [place] [facility] [address] [id number] [place] [address] 14 Aug, 2009 [facility] [address] [facility] [id number] [place] Aug, [facility] [address] [facility] [id number] [place] [address] Jul, [facility] [address] [facility] [id number] [place] [address] Mar, IMMUNIZATIONS No Known Immunizations SOCIAL HISTORY Never Assessed REASON FOR VISIT Controlled Med Refill PLAN OF CARE VITAL SIGNS MEDICATIONS Medication Instructions Dosage Frequency Start Date End Date Duration Status Xanax 0.5 MG Orally 3 times a day take 1 tablet 8h Nov, 28 days Active RESULTS No Results PROCEDURES No Known procedures INSTRUCTIONS MEDICATIONS ADMINISTERED No Known Medications MEDICAL (GENERAL) HISTORY Type Description Date Medical History Hypertension Medical History Chronic Obstructive pulmonary disease diagnosed 2008 in [place]-PFT not done previously Medical History Gastrointestinal disorder [...]
[2018-03-28] MEDS ORDERED: NS IV 1000 ML 1,000 ML IV SCH (12:30)
[2018-03-28] MEDS ORDERED: ACETAMINOPHEN 500 MG TAB (TYLENOL) PO ONE (12:30)
[2018-03-28] MEDS ORDERED: diphenhydrAMINE 50 MG/ML INJ (BENADRYL) IVP ONE (12:30)
[2018-03-28] MEDS ORDERED: PROCHLORPERAZINE 10 MG/2ML INJ (COMPAZINE) IV ONE (12:30)
--- NOTE | 2018-03-28 12:33 | ED General ---
General Stated Complaint: NAUSEA/DIARRHEA KNOT UNDER CHIN Source of Information: Patient Exam Limitations: No Limitations History of Present Illness Date Seen by Provider: Mar 28, 2018 Time Seen by Provider: 12:30 Initial Comments to ER with a multitude of complaints that began 4 days ago after eating at [employer]. She has right-sided facial pain. She states the [employer] was very hard, she has very few teeth on the bottom and she believes that she bruised her bottom jaw from eating the [employer] even though her son was kind enough to break up the [employer] with a hammer prior to her eating it. She complains of whole body twitching intermittently. Nausea without vomiting. Diarrhea initially but the diarrhea has resolved. Poor memory, intermittent blurred vision.she reports smoking 1 pack of cigarettes per day but her right pointer finger tip is stained brown from the chronic cigarette exposure. Timing/Duration: 2-3 Days Severity: Moderate Associated Systoms: Headaches Allergies and Home Medications Allergies Coded Allergies: buspirone HCl (Verified Allergy, Unknown, 08/14/15) etodolac (Verified Allergy, Unknown, 08/14/15) NSAIDS (Non-Steroidal Anti-Inflamma (Verified Adverse Reaction, Unknown, 08/14/15) Neuromuscular Blockers, Steroidal (Verified Adverse Reaction, Unknown, ) gabapentin (Verified Adverse Reaction, Unknown, 08/14/15) Home Medications Albuterol Sulfate 1 Puff Puff, 2 PUFF INH QID PRN for SHORTNESS OF BREATH, ( Reported) Albuterol Sulfate 2.5 Mg/3 Ml Vial.neb, 2.5 MG NEB Q4H PRN for SHORTNESS OF BREATH, (Reported) Alprazolam 0.5 Mg Tablet, 0.5 MG PO TID PRN for ANXIETY, (Reported) Aspirin 325 Mg Tablet.dr, 325 MG PO DAILY, (Reported) Atenolol 100 Mg Tablet, 50 MG PO BID, (Reported) TAKES 1/2 (100MG) TABLET Cetirizine HCl 10 Mg Tablet, 10 MG PO DAILY, (Reported) Cholecalciferol (Vitamin D3) 5,000 Unit Tablet, 5,000 UNIT PO DAILY, (Reported) Cyanocobalamin 1,000 Mcg/Ml Inj, 1,000 MCG IJ MONTHLY, (Reported) Dicyclomine HCl 20 Mg Tablet, 20 MG PO QID PRN for STOMACH UPSET, (Reported) Docusate Sodium 100 Mg Capsule, 100 MG PO BID PRN for CONSTIPATION-1ST LINE, ( Reported) Docusate Sodium 100 Mg Capsule, 100 MG PO BID, (Reported) Fluticasone Propionate 16 Gm [place].susp, 1 SPRAY NSEACH BID, (Reported) Fluticasone/Salmeterol 1 Each Blst.w.dev, 1 PUFF IH BID, (Reported) Guaifenesin 400 Mg Tablet, 400 MG PO Q4H PRN for CONGESTION, (Reported) Hydrocodone Bit/Acetaminophen 1 Tab Tab, 1 TAB PO Q6H PRN for PAIN-MODERATE, ( Reported) Ibuprofen 600 Mg Tablet, 600 MG PO Q6H PRN for PAIN-MILD, (Reported) Lactobacillus Acidophilus 1 Each Capsule, 1 CAP PO DAILY, (Reported) Losartan Potassium 25 Mg Tablet, 25 MG PO DAILY, (Reported) [place] 3 Polyunsat Fatty Acids 1,000 Mg Cap, 2,000 MG PO BID, (Reported) Omeprazole 40 Mg Capsule.dr, 40 MG PO DAILY, (Reported) Ranitidine HCl 150 Mg Tablet, 150 MG PO BID, (Reported) Simethicone 125 Mg Tab.chew, 2 TAB PO BID PRN for GAS, (Reported) Patient Home Medication List Home Medication List Reviewed: Yes Review of Systems Constitutional: see HPI EENTM: see HPI Respiratory: see HPI; No cough, No dyspnea on exertion Cardiovascular: see HPI; No chest pain, No edema, No Hx of Intervention, No palpitations Genitourinary: no symptoms reported, see HPI Musculoskeletal: see HPI, muscle cramps Skin: see HPI Psychiatric/Neurological: See HPI Hematologic/Lymphatic: See HPI Past Hjenzlz-Wreote-Enhgbm Hx Patient Social History Type Used: Cigarettes, Electronic/Vapor 2nd Hand Smoke Exposure: Yes Recent Foreign Travel: No Contact w/Someone Who Travel: No Recent Hopitalizations: Yes (SEPSIS 10/2017) Immunizations Up To Date Tetanus Booster (TDap): Unknown Date of Pneumonia Vaccine: Jun 07, 2016 Date of Influenza Vaccine: Nov 08, 2017 Seasonal Allergies Seasonal Allergies: Yes Past Medical History Surgeries: Yes (pericardial window) Abdominal, Appendectomy, Cardiac, Section, Gallbladder, Hysterectomy, Oophorectomy Respiratory: Yes Asthma, Pneumonia, Pulmonary Embolism, Sleep Apnea, COPD, Emphysema Currently Using CPAP: No Currently Using BIPAP: No Cardiac: Yes (Pericardial effusion-S/P PERICARDIAL WINDOW 08/2017) Atrial Fibrillation, Chronic Edema/Swelling, Deep Vein Thrombosis, High Cholesterol, Hypertension Neurological: Yes (PSEUDO SEIZURES ) Seizure Disorder 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 Disorders: Yes Female 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 Disorders: Ovarian Cyst CUPOLA [employer]PER History: Hysterectomy, 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, Menopausal Genitourinary: No Gastrointestinal: Yes (CHOKES EASILY) Abdominal Hernia, Gastroesophageal Reflux, Diverticulosis, Hiatal Hernia, Ulcer , Gall Bladder Disease, Irritable Bowel Musculoskeletal: Yes (CHRONIC KNEE AND HIP PAIN, SPINAL STENOSIS) Degenerate Disk Disease, Osteoporosis, Arthritis, Chronic Back Pain Endocrine: No HEENT: No Cancer: No Psychosocial: Yes Pseudo Seizures, Anxiety, Depression Integumentary: Yes Eczema Blood Disorders: No Adverse Reaction/Blood Tranf: No Family Medical History FH: cirrhosis 19 MOTHER FH: liver cancer 19 MOTHER FHx: lung cancer 19 FATHER Hypertension 19 FATHER 19 MOTHER Physical Exam Vital Signs Vital Signs - First Documented 03/28/18 12:49 Temp 96.0 Pulse 69 Resp 10 B/P (MAP) 188/108 (134) Pulse Ox 98 O2 Delivery Room Air O2 Flow Rate 0 Capillary Refill : Height, Weight, BMI Height: 5', 8.00" Weight: 174lbs 1.0oz, [id number] Method:Stated ,31.0BMI General Appearance: No Apparent Distress, WD/WN, Other Eyes: Bilateral Eye Normal Inspection, Bilateral Eye PERRL, Bilateral Eye EOMI HEENT: PERRL/EOMI, TMs Normal Neck: Full Range of Motion, Normal Inspection Respiratory: Normal Breath Sounds, No Accessory Muscle Use, No Respiratory Distress Cardiovascular: Regular Rate, Rhythm, Normal Peripheral Pulses Gastrointestinal: Normal Bowel Sounds, Non Tender, Soft Extremity: Normal Capillary Refill, Normal Inspection Neurologic/Psychiatric: Alert, Oriented x3 Skin: Normal Color, Warm/Dry, Other (right pointer finger tip is stained brown cigarette exposure. Her voice is raspy. She appears much older than stated age.) Progress/Results/Core Measures Suspected Sepsis SIRS Temperature: Pulse: Respiratory Rate: Laboratory Tests 03/28/18 12:35: White Blood Count 10.4 Blood Pressure / Mean: Laboratory Tests 03/28/18 12:35: Creatinine 0.90, Platelet Count 297, Total Bilirubin 0.6 Results/Orders Lab Results Laboratory Tests Test 03/28/18 12:35 03/28/18 13:11 Range/Units White Blood Count 10.4 4.3-11.0 10^3/uL Red Blood Count 5.08 4.35-5.85 10^6/uL Hemoglobin 15.0 11.5-16.0 G/DL Hematocrit 42 35-52 % Mean Corpuscular Volume 84 80-99 FL Mean Corpuscular Hemoglobin 30 25-34 PG Mean Corpuscular Hemoglobin Concent 35 32-36 G/DL Red Cell Distribution Width 15.0 H 10.0-14.5 % Platelet Count 297 130-400 10^3/uL Mean Platelet Volume 8.5 7.4-10.4 FL Neutrophils (%) (Auto) 64 42-75 % Lymphocytes (%) (Auto) 27 12-44 % Monocytes (%) (Auto) 8 0-12 % Eosinophils (%) (Auto) 1 0-10 % Basophils (%) (Auto) 1 0-10 % Neutrophils # (Auto) 6.7 1.8-7.8 X 10^3 Lymphocytes # (Auto) 2.8 1.0-4.0 X 10^3 Monocytes # (Auto) 0.9 0.0-1.0 X 10^3 Eosinophils # (Auto) 0.1 0.0-0.3 10^3/uL Basophils # (Auto) 0.1 0.0-0.1 10^3/uL Sodium Level 135 135-145 MMOL/L Potassium Level 4.0 3.6-5.0 MMOL/L Chloride Level 101 98-107 MMOL/L Carbon Dioxide Level 23 21-32 MMOL/L Anion Gap 11 5-14 MMOL/L Blood Urea Nitrogen 10 7-18 MG/DL Creatinine 0.90 0.60-1.30 MG/DL Estimat Glomerular Filtration Rate > 60 BUN/Creatinine Ratio 11 Glucose Level 103 70-105 MG/DL Calcium Level 9.9 8.5-10.1 MG/DL Total Bilirubin 0.6 0.1-1.0 MG/DL Aspartate Amino Transf (AST/SGOT) 12 5-34 U/L Alanine Aminotransferase (ALT/SGPT) 10 0-55 U/L Alkaline Phosphatase 75 40-136 U/L Total Protein 8.1 6.4-8.2 GM/DL Albumin 4.5 3.2-4.5 GM/DL Urine Color YELLOW Urine Clarity CLEAR Urine pH 6 5-9 Urine Specific Arthur 1.010 L 1.016-1.022 Urine Protein NEGATIVE NEGATIVE Urine Glucose (UA) NEGATIVE NEGATIVE Urine Ketones NEGATIVE NEGATIVE Urine Nitrite NEGATIVE NEGATIVE Urine Bilirubin NEGATIVE NEGATIVE Urine Urobilinogen NORMAL NORMAL MG/DL Urine Leukocyte Esterase NEGATIVE NEGATIVE Urine RBC (Auto) NEGATIVE NEGATIVE Urine RBC NONE /HPF Urine WBC NONE /HPF Urine Squamous Epithelial Cells NONE /HPF Urine Crystals NONE /LPF Urine Bacteria NEGATIVE /HPF Urine Casts NONE /LPF Urine Mucus NEGATIVE /LPF Urine Culture Indicated NO My Orders Orders - EREN MCDONALD APPLICATION TECHNICIAN Cbc With Automated Diff (03/28/18 12:28) Comprehensive Metabolic Panel (03/28/18 12:28) Ua Culture If Indicated (03/28/18 12:28) Iv Heplock-Insert (Order) (03/28/18 12:28) Ct Head/Maxillofacial Wo (03/28/18 12:28) Ns Iv 1000 Ml (Sodium Chloride 0.9%) (03/28/18 12:30) Prochlorperazine Injection (Compazine In (03/28/18 12:30) Diphenhydramine Injection (Benadryl Inje (03/28/18 12:30) Acetaminophen Tablet (Tylenol Tablet) (03/28/18 12:30) Medications Given in ED Current Medications Medications Dose Ordered Sig/Tino Route Start Time Stop Time Status Last Admin Dose Admin Acetaminophen 1,000 mg ONCE ONCE PO 03/28/18 12:30 03/28/18 12:31 DC 03/28/18 12:45 1,000 MG Diphenhydramine HCl 25 mg ONCE ONCE IVP 03/28/18 12:30 03/28/18 12:31 DC 03/28/18 12:41 25 MG Prochlorperazine Edisylate 5 mg ONCE ONCE IV 03/28/18 12:30 03/28/18 12:31 DC 03/28/18 12:37 5 MG Vital Signs/I&O 03/28/18 12:49 Temp 96.0 Pulse 69 Resp 10 B/P (MAP) 188/108 (134) Pulse Ox 98 O2 Delivery Room Air O2 Flow Rate 0 Capillary Refill : Diagnostic Imaging Diagonstic Imaging: Xray Plain Films/CT/US/NM/MRI: chest Comments NAME: MAHNAZ VANCE MED REC#: [id number] PT STATUS: REG ER : 1965 PHYSICIAN: EREN MCDONALD APRN ADMIT DATE: 03/28/18/ER Draft Date of Exam:03/28/18 CT HEAD/MAXILLOFACIAL WO PROCEDURE: CT head and maxillofacial without contrast. TECHNIQUE: Multiple contiguous axial images were obtained through the head and facial bones without the use of intravenous contrast. INDICATION: Head pain and jaw pain. CT head: FINDINGS: Ventricles and sulci are within normal limits. No sulcal effacement, midline shift or hemorrhage is detected. The cisterns are patent. The visualized paranasal sinuses are clear. IMPRESSION: No acute intracranial process is detected. CT maxillofacial: FINDINGS: The mandible is intact. The zygomatic arches are intact. Maxillary sinus richards, orbital richards and nasal bones are intact. Paranasal sinuses are clear. No mucosal thickening or air-fluid levels are seen. Mastoid air cells are clear. IMPRESSION: Unremarkable CT of the facial bones. Dictated on workstation # [id number] Dict: 03/28/18 1334 Trans: 03/28/18 1340 JOHN [id number] Interpreted by: BRANDAN MANRIQUE MD Electronically signed by: Departure Impression Primary Impression: Nausea alone Additional Impressions: Facial pain Muscle cramps Disposition: 01 HOME, SELF-CARE Condition: Stable Departure-Patient Inst. Decision time for Depature: 13:50 Referrals: [facility] (PCP/Family) Primary Care Physician Patient Instructions: Nausea and Vomiting, Adult Add. Discharge Instructions: 1. Return to ER for any concerns 2. Follow-up with your doctor next week 3. Scripts Prochlorperazine Maleate (Compazine) 10 Mg Tablet 10 MG PO TID PRN for NAUSEA/VOMITING-1ST LINE, #10 TAB Prov: EREN MCDONALD APRN 03/28/18 EREN MCDONALD APRN Mar 28, 2018 12:33
[2018-03-28 12:43] LABS: BASOPHILS # (AUTO) 0.1 10^3/uL (0.0-0.1); BASOPHILS % (AUTO) 1 % (0-10); EOSINOPHILS # (AUTO) 0.1 10^3/uL (0.0-0.3); EOSINOPHILS % (AUTO) 1 % (0-10); HEMATOCRIT 42 % (35-52); LYMPHOCYTES # (AUTO) 2.8 X 10^3 (1.0-4.0); LYMPHOCYTES % (AUTO) 27 % (12-44); MEAN CORPUSCULAR HEMOGLOBIN 30 PG (25-34); MEAN CORPUSCULAR HGB CONC 35 G/DL (32-36); MEAN CORPUSCULAR VOLUME 84 FL (80-99); MEAN PLATELET VOLUME 8.5 FL (7.4-10.4); MONOCYTES # (AUTO) 0.9 X 10^3 (0.0-1.0); MONOCYTES % (AUTO) 8 % (0-12); NEUTROPHILS # (AUTO) 6.7 X 10^3 (1.8-7.8); NEUTROPHILS % (AUTO) 64 % (42-75); PLATELET COUNT 297 10^3/uL (130-400); RED BLOOD COUNT 5.08 10^6/uL (4.35-5.85); WHITE BLOOD COUNT 10.4 10^3/uL (4.3-11.0)
[2018-03-28 13:02] LABS: ALANINE AMINOTRANSFERASE 10 U/L (0-55); ALBUMIN 4.5 GM/DL (3.2-4.5); ALKALINE PHOSPHATASE 75 U/L (40-136); BILIRUBIN,TOTAL 0.6 MG/DL (0.1-1.0); BUN/CREATININE RATIO 11; CALCIUM 9.9 MG/DL (8.5-10.1); CARBON DIOXIDE 23 MMOL/L (21-32); CHLORIDE 101 MMOL/L (98-107); GFR ESTIMATED > 60; GLUCOSE 103 MG/DL (70-105); SODIUM 135 MMOL/L (135-145); TOTAL PROTEIN 8.1 GM/DL (6.4-8.2)
[2018-03-28 13:20] LABS: BILIRUBIN,URINE NEGATIVE (NEGATIVE); CLARITY,URINE CLEAR; COLOR,URINE YELLOW; GLUCOSE, URINE (UA) NEGATIVE (NEGATIVE); KETONES,URINE NEGATIVE (NEGATIVE); LEUKOCYTE ESTERASE ,URINE NEGATIVE (NEGATIVE); NITRITE,URINE NEGATIVE (NEGATIVE); PH,URINE 6 (5-9); PROTEIN,URINE NEGATIVE (NEGATIVE); UROBILINOGEN,URINE NORMAL (NORMAL)
[2018-03-28 13:30] LABS: BACTERIA,URINE NEGATIVE /HPF
--- NOTE | 2018-03-28 13:40 | Diagnostic Imaging Report ---
PROCEDURE: CT head and maxillofacial without contrast. TECHNIQUE: Multiple contiguous axial images were obtained through the head and facial bones without the use of intravenous contrast. INDICATION: Head pain and jaw pain. CT head: FINDINGS: Ventricles and sulci are within normal limits. No sulcal effacement, midline shift or hemorrhage is detected. The cisterns are patent. The visualized paranasal sinuses are clear. IMPRESSION: No acute intracranial process is detected. CT maxillofacial: FINDINGS: The mandible is intact. The zygomatic arches are intact. Maxillary sinus richards, orbital richards and nasal bones are intact. Paranasal sinuses are clear. No mucosal thickening or air-fluid levels are seen. Mastoid air cells are clear. IMPRESSION: Unremarkable CT of the facial bones. Dictated by: Dictated on workstation # [id number]
[2018-03-28] MEDS ORDERED: PROC-1 PO (13:57)
[2018-03-28 14:05] VITALS: BP 144/85
== END 2018-03-28 14:05 | disposition home or self-care (01) ==
LOC: EDUNIT# 12:11 → ER 12:14
DX: R11.0 Nausea (principal); R51 Headache; R25.2 Cramp and spasm; J43.9 Emphysema, unspecified; I48.91 Unspecified atrial fibrillation; E78.00 Pure hypercholesterolemia, unspecified; I10 Essential (primary) hypertension; G40.909 Epilepsy, unspecified, not intractable, without status epilepticus; K21.9 Gastro-esophageal reflux disease without esophagitis; M81.0 Age-related osteoporosis without current pathological fracture; F41.9 Anxiety disorder, unspecified; F32.9 Major depressive disorder, single episode, unspecified; F17.210 Nicotine dependence, cigarettes, uncomplicated; Z90.49 Acquired absence of other specified parts of digestive tract; Z87.59 Personal history of other complications of pregnancy, childbirth and the puerperium; Z86.711 Personal history of pulmonary embolism; Z86.718 Personal history of other venous thrombosis and embolism; Z87.42 Personal history of other diseases of the female genital tract; Z79.82 Long term (current) use of aspirin; Z79.51 Long term (current) use of inhaled steroids; Z88.6 Allergy status to analgesic agent; Z88.8 Allergy status to other drugs, medicaments and biological substances
CPT/HCPCS: 36415; 70450; 70486; 80053; 81000; 85025; 96361; 96374; 96375

== ENCOUNTER → 2018-06-27 | Outpatient (CLI) | payer MEDICAID ==
[~2018-06-27] MED LIST changes: -AMLO5TAB2; +AMLO5TAB7; -LOSA25TA21 PO; +LOSA25TA6 PO; +PROC-1 PO
== END ==
LOC: CARD 10:03
PROVIDERS: ATTEND Internal Medicine Cardiovascular Disease
DX: J44.9 Chronic obstructive pulmonary disease, unspecified (principal); R06.09 Other forms of dyspnea; I10 Essential (primary) hypertension; I26.99 Other pulmonary embolism without acute cor pulmonale; M48.00 Spinal stenosis, site unspecified
CPT/HCPCS: 93306

== ENCOUNTER → 2018-07-24 | Outpatient (CLI) | payer MEDICAID ==
--- NOTE | 2018-07-24 11:22 | Diagnostic Imaging Report ---
PROCEDURE: CT chest without contrast. TECHNIQUE: Multiple contiguous axial images were obtained through the chest without the use of intravenous contrast. FINDINGS: No axillary lymphadenopathy is seen. Lymph nodes in the mediastinum appear to be stable. Yodit are limited in evaluation due to absence of intravenous contrast. The previously noted pericardial effusion has resolved. No pleural effusion is identified. Parenchymal evaluation again demonstrates centrilobular emphysematous changes. Tiny nodule in the right upper lobe, image 11 is stable at 2-3 mm. A previously noted semisolid density in the medial aspect of the right middle lobe measures approximately 7 mm however this may be owing to slight differences in slice position. There is also a moderate amount of artifact on today's exam from motion. No other parenchymal abnormalities are seen. Upper abdomen is unremarkable. IMPRESSION: 1. Resolution of previously noted pericardial effusion. 2. Stable right upper lobe micronodule. Right middle lobe density appears slightly more prominent. This could be on a technical basis and continued close followup with repeat CT chest in 6 months is recommended to confirm stability. Dictated by: Dictated on workstation # [id number]
== END ==
LOC: RAD 11:02
PROVIDERS: ATTEND Nurse Practitioner Family
DX: J44.9 Chronic obstructive pulmonary disease, unspecified (principal); F17.200 Nicotine dependence, unspecified, uncomplicated
CPT/HCPCS: 71250

== ENCOUNTER 2018-08-20 14:21 | Outpatient (CLI) | payer MEDICAID ==
[~2018-08-20] VITALS: Ht 172.7 cm; Wt 86.2 kg
[~2018-08-20 14:21] MED LIST changes: +AMLO10TA6 PO; +ATEN50TA PO; -CLON0.1T; +CLON0.1T PO; +ENAL20TA PO; +[UNRECOGNIZED DRUG - CODE] OU
== END 2018-08-20 14:44 ==
LOC: PREOP 14:21
PROVIDERS: ATTEND Internal Medicine Critical Care Medicine
DX: Z01.818 Encounter for other preprocedural examination (principal)

== ENCOUNTER 2018-08-21 08:55 | Day surgery (SDC) | payer MEDICAID ==
[~2018-08-21] VITALS: Ht 172.7 cm; Wt 86.2 kg
[2018-08-21] MEDS ORDERED: LIDOCAINE PF 1% 2 ML AMP IJ ONE (08:56)
[2018-08-21] MEDS ORDERED: LIDOCAINE PF 2% 5 ML (XYLOCAINE) VIAL INJ ONE (08:56)
[2018-08-21] MEDS ORDERED: LIDOCAINE JELLY 2% (XYLOCAINE) 30 ML TUBE TOP ONE (08:56)
[2018-08-21 09:00] VITALS: BP 164/87
[2018-08-21] MEDS ORDERED: NS IV 500 ML 500 ML IV PRN (09:05)
[2018-08-21] MEDS ORDERED: fentaNYL INJECTION 100 MCG/2 ML AMP IVP ONE (09:15)
[2018-08-21] MEDS ORDERED: MIDAZOLAM 2 MG/2 ML (VERSED) VIAL IVP ONE (09:15)
[2018-08-21] MEDS ORDERED: NS IV 500 ML 500 ML ONE (09:22)
--- NOTE | 2018-08-21 10:45 | Progress Note-Pre Operative ---
Pre-Operative Progress Note H&P Reviewed The H&P was reviewed, patient examined and no changes noted. Time Seen by Provider: 10:00 Date H&P Reviewed: Aug 21, 2018 Time H&P Reviewed: 10:00 Pre-Operative Diagnosis: ILD KERVIN CERON DO Aug 21, 2018 10:45
--- NOTE | 2018-08-21 10:47 | Pre-Op Note & Conscious Sedat ---
Pre-Operative Progress Note H&P Reviewed The H&P was reviewed, patient examined and no changes noted. Date H&P Reviewed: Aug 21, 2018 Time H&P Reviewed: 10:47 Conscious Sedation Pre-Proced Time 10:00 ASA Score 4 For ASA 3 and 4: Consider anesthesia and medical clearance. Also, for patients with a history of failed moderate sedation consider anesthesia. Airway Lungs Heart ASA score ASA 1: a normal healthy patient ASA 2: a patient with a mild systemic disease (mid diabetes, controlled hypertension, obesity ASA 3: a patient with a severe systemic disease that limits activity (angina , COPD, prior Myocardial infarction) ASA 4: a patient with an incapacitating disease that is a constant threat to life (CHF, renal failure) ASA 5: a moribund patient not expected to survive 24 hrs. (ruptured aneurysm) ASA 6: a declared brain patient whose organs are being harvested. For emergent operations, add the letter E after the classification Mallampati Classification Grade 3 Sedation Plan Analgesia, Amnesia, Plan communicated to team members, Discussed options with patient/fam, Discussed risks with patient/fam The patient is an appropriate candidate to undergo the planned procedure, sedation, and anesthesia. The patient immediately re-assessed prior to indication. KERVIN CERON DO Aug 21, 2018 10:47
--- NOTE | 2018-08-21 10:56 | Pulmonary Procedures ---
Pulmonary Procedures Date of Procedure Date of Service: Aug 21, 2018 Bronch Bronchoscopy with Fluoroscopy, Percepta brush bronchoalveolar lavage (BAL), transbronchial washes and brushes. Preop DX ILD Postop DX: same Complications: none After informed consent obtained and formal time out pt was sedated using Fentanyl and Versed. Bronchoscope was advanced through the nare and vocal cords. 1% lidocaine was used to anesthetize vocal cords, epiglottis, larwence, and left/right main stem bronchus. An anatomical tour was undertaken down to the segmental bronchi bilaterally. No endobronchial lesions noted. From the RML with Fluoroscopy, Percepta brush was done at [place], bronchoalveolar lavage ( BAL), transbronchial washes and transbronchial bushes. Pt tolerated procedure well. No complications noted. Stat CXR is pending. KERVIN CERON DO Aug 21, 2018 10:56
[2018-08-21] MEDS ORDERED: MIDAZOLAM 2 MG/2 ML (VERSED) VIAL ONE ×4 (11:11)
[2018-08-21] MEDS ORDERED: fentaNYL INJECTION 100 MCG/2 ML AMP ONE ×2 (11:11→11:12)
--- NOTE | 2018-08-21 12:24 | Pulmonary Procedures ---
Pulmonary Procedures Date of Procedure Date of Service: Aug 21, 2018 Bronch Bronchoscopy with fluoroscopy Percepta brush, right bronchus intermedius bronchoalveolar lavage (BAL), forcep bx, transbronchial washes and, brushes. Preop DX lung nodule Postop DX: left mainstem bronchus endobronchial mass (pictures taken) Complications: none After informed consent obtained and formal time out pt was sedated using Fentanyl and Versed. Bronchoscope was advanced through the nare and vocal cords. 1% lidocaine was used to anesthetize vocal cords, epiglottis, law[place], and left/right main stem bronchus. An anatomical tour was undertaken down to the segmental bronchi bilaterally. left mainstem bronchus endobronchial mass ( pictures taken) . Percepta brush, right bronchus intermedius bronchoalveolar lavage (BAL), forcep bx, transbronchial washes and, brushes. were obtained. Pt tolerated procedure well. No complications noted. Stat CXR is pending. KERVIN CERON DO Aug 21, 2018 12:24
[2018-08-21 12:30] VITALS: BP 144/106
[2018-08-21 13:15] VITALS: BP 108/85
[2018-08-21 13:29] VITALS: BP 108/85
--- NOTE | 2018-08-21 13:29 | Diagnostic Imaging Report ---
INDICATION: Status post bronchoscopy. TIME OF EXAMINATION: 12:55 p.m. COMPARISON: Correlation is made with prior chest from 11/25/2017. FINDINGS: The heart size is stable. Lungs are clear. No pneumothorax is seen status post bronchoscopy. There is no effusion. IMPRESSION: No acute abnormality is detected. Dictated by: Dictated on workstation # [id number]
--- OUTSIDE RECORDS SUMMARY | 2018-08-21 15:28 | XMS REPORT ---
Author Author KAITLIN TURNER Organization [facility] Address [address] [place] [address] Care Team Providers Care Clinical Systems Analyst Name Role Phone KAITLIN TURNER Unavailable PROBLEMS Type Condition ICD9-CM Code TAK88-TW Code Onset Dates Condition Status SNOMED Code Problem Chronic sinusitis, unspecified J32.9 Active 87941308 Problem Other chronic pain G89.29 Active 51246903 Problem Gastroesophageal reflux disease without esophagitis K21.9 Active 113841990 Problem Slow transit constipation K59.01 Active 35541088 Problem Coronary artery disease involving [place] coronary artery of [place] heart without angina pectoris I25.10 Active 1527149911940 Problem Agoraphobia with panic attacks F40.01 Active 435710920 Problem COPD with exacerbation J44.1 Active 075377686 Problem Pericardial effusion I31.3 Active 721324610 Problem Pleural effusion on left J90 Active 82160202 Problem Generalized anxiety disorder F41.1 Active 38477047 Problem Chronic obstructive pulmonary disease, unspecified COPD type J44.9 Active 57307923 Problem Hypertension, benign I10 Active 58262897 Problem Oral phase dysphagia R13.11 Active 042884402 Problem Vitamin B 12 deficiency E53.8 Active 25499014 Problem Chronic fatigue R53.82 Active 59937531 ALLERGIES No Information ENCOUNTERS Encounter Location Date Diagnosis [facility] [id number] [address] Jun, Flank pain R10.9 [facility] [id number] [address] 24 May, 2018 Flank pain R10.9 [facility] [id number] [address] 2508 17 May, 2018 Pericardial effusion I31.3 ; Encounter for immunization Z23 ; Generalized anxiety disorder F41.1 ; Chronic obstructive pulmonary disease, unspecified COPD type J44.9 and Coronary artery disease involving [place] coronary artery of [place] heart without angina pectoris I25.10 [facility] [id number] [place] [address] 84440- 7696 Apr, Flank pain R10.9 [facility] [id number] [place] [address] 00924- 2747 Apr, Generalized anxiety disorder F41.1 [facility] [id number] [place] [address] 94067- 8491 Apr, Generalized anxiety disorder F41.1 [facility] [id number] [place] [address] 28591- 4314 Apr, Flank pain R10.9 and Chronic prescription benzodiazepine use Z79.899 [facility] [id number] [place] [address] 94117- 3114 Mar, Flank pain R10.9 [facility] [id number] [place] [address] 42974- 9431 Mar, [facility] [id number] [place] [address] 54858- 8596 Feb, Coronary artery disease involving [place] coronary artery of [place] heart without angina pectoris I25.10 ; Vitamin B 12 deficiency E53.8 ; Slow transit constipation K59.01 ; Generalized anxiety disorder F41.1 and Breast cancer screening by mammogram Z12.31 [facility] [id number] [place] [address] 14002- 5438 Feb, Flank pain R10.9 [facility] [id number] [place] [address] 02754- 4383 January, [facility] [id number] [place] [address] 38577- 4679 January, Chronic obstructive pulmonary disease, unspecified COPD type J44.9 ; Pleural effusion on left J90 ; Pericardial effusion I31.3 and Generalized anxiety disorder F41.1 [facility] [id number] [place] [address] 35501- 1430 January, Gastroenteritis K52.9 [facility] [address] [address] 1246 January, Flank pain R10.9 [facility] [address] [address] 3306 January, [facility] [id number] [id number] [place] [address] Dec [facility] [address] [address]- 5662 Dec, [facility] [id number] [place] [address] 03681- 2593 Dec, [facility] [address] [address]- 5951 Dec, [facility] [id number] [place] [address] 91533- 3820 Dec, [facility] [address] [address]- 2641 Dec, Flank pain R10.9 [facility] [address] [address]- 4604 Dec, [facility] [address] [address]- 8154 Nov, [facility] [address] [address] 2210 Nov, [facility] [id number] [address]- 0284 Nov, [facility] [address] [place] [address] 58344- 5882 Nov, Pericardial effusion I31.3 ; Agoraphobia with panic attacks F40.01 and Vitamin B 12 deficiency E53.8 [facility] [address] [address]- 4828 Nov, [facility] [address] [place] [address] 95353- 2989 Nov, Pneumonia of both lungs due to infectious organism, unspecified part of lung J18.9 and Flank pain R10.9 [facility] [id number] [place] [address] 73296- 6901 Nov, Pneumonia of both lungs due to infectious organism, unspecified part of lung J18.9 and Gastroenteritis K52.9 [facility] [id number] [place] [address] 73890- 9390 Oct, Pneumonia of both lungs due to infectious organism, unspecified part of lung J18.9 and Vitamin B 12 deficiency E53.8 [facility] [address] [id number] Oct, [facility] [id number] [place] [address] 42851- 7228 Oct, [facility] [id number] [place] [address] 43115- 6783 Oct, [facility] [id number] [place] [address] 79021- 0776 Oct, Flank pain R10.9 [facility] [id number] [place] [address] 28230- 5568 Oct, Other chronic pain G89.29 and Unspecified abdominal pain R10.9 [facility] [address] [place] [address] 59325- 2762 Sep, Flank pain R10.9 [facility] [id number] [place] [address] 49432- 1112 Sep, [facility] [id number] [place] [address] 86180- 8593 Sep, [facility] [id number] [place] [address] 08847- 3707 Sep, Acute non-recurrent maxillary sinusitis J01.00 [facility] [address] [place] [address] 38807- 7876 Sep, Acute non-recurrent maxillary sinusitis J01.00 and Vitamin B 12 deficiency E53.8 [facility] [id number] [place] [address] 54775- 3935 Sep, [facility] [id number] [place] [address] 75590- 0147 Sep, [facility] [id number] [place] [address] 24752- 2688 Sep, [facility] [address] 31278- 2633 Sep, COPD with exacerbation J44.1 [facility] [id number] [place] [address] 18921- 3908 Sep, Chronic obstructive pulmonary disease, unspecified COPD type J44.9 [facility] [id number] [place] [address] 48498- 2663 Aug, Flank pain R10.9 [facility] [id number] [place] [address] 23126- 1417 Jul, Flank pain R10.9 and Vitamin B 12 deficiency E53.8 [facility] [id number] [place] [address] 17400- 2664 Jul, [facility] [id number] [place] [address] 97973- 1484 Jun, Gastroenteritis K52.9 [facility] [id number] [place] [address] 31699- 7823 May, Gastroenteritis K52.9 and Vitamin B 12 deficiency E53.8 [facility] [id number] [place] [address] 62530- 2513 Apr, Allergic conjunctivitis of left eye H10.12 and Chronic fatigue R53.82 [address] [place] [address]- 0123 Apr, Chronic sinusitis, unspecified J32.9 [facility] [id number] [place] [address] 15741- 3749 Apr, [facility] [id number] [place] [address] 35781- 0514 Feb, [facility] [id number] [place] [address] 21560- 4485 January, [facility] [id number] [place] [address] 79601- 0459 Dec, [facility] [id number] [place] [address] 25108- 9757 Oct, [facility] [id number] [place] [address] 64898- 5134 Sep, Oral phase dysphagia R13.11 and Vitamin B 12 deficiency E53.8 [facility] [id number] [place] [address] 47157- 4429 Sep, [facility] [id number] [place] [address] 70392- 5388 Jul, [facility] [id number] [place] [address] 80040- 5837 Jul, [facility] [id number] [place] [address] 53964- 9003 Jun, Bronchitis J40 ; Generalized anxiety disorder F41.1 and Chronic obstructive pulmonary disease, unspecified COPD type J44.9 [facility] [id number] [place] [address] 17846- 2666 Jun, [facility] [id number] [place] [address] 75702- 6081 14 Jun, 2016 [facility] [id number] [place] [address] 75289- 2435 Jun, [facility] [id number] [place] [address] 07457- 0286 May, Vitamin B 12 deficiency E53.8 ; Essential (primary) hypertension I10 ; Generalized anxiety disorder F41.1 ; Pain in joint, ankle and foot 719.47 ; Arthritis M19.90 ; Chronic obstructive pulmonary disease, unspecified COPD type J44.9 and Encounter for immunization Z23 [facility] [address] 36164- 3047 Apr, [facility] [address] 70981- 1691 Apr, [facility] [address] 60470- 6968 Mar, [facility] [address] 02140- 9888 January, [facility] [address] 81571- 4854 Dec, [facility] [address] 94152- 1328 Oct, [facility] [address] 72729- 5715 Oct, [facility] [address] 67850- 8739 Oct, Hypertension, benign I10 and Vitamin B 12 deficiency E53.8 [facility] [address] 81432- 2901 Oct, [facility] [id number] [place] [address] 82331- 0268 Oct, [facility] [address] 81094- 5405 Oct, Irritable bowel syndrome with diarrhea K58.0 [facility] [address] 06136- 3331 Oct, [facility] [id number] [place] [address] 59820- 3864 Oct, Vitamin B 12 deficiency E53.8 ; Hypertension, benign I10 and Chronic obstructive pulmonary disease, unspecified COPD type J44.9 [facility] [id number] [place] [address] 30162- 8145 Sep, Irritable bowel syndrome with diarrhea K58.0 ; Hypertension , benign I10 ; Chronic obstructive pulmonary disease, unspecified COPD type J44.9 ; Edema, unspecified type R60.9 ; Vision changes H53.9 and Vitamin B 12 deficiency E53.8 [facility] [id number] [place] [address] 81791- 6196 Sep, [facility] [id number] [place] [address] 69582- 6606 Jul, Degenerative disc disease 722.[address] 82306- 8327 Jun, Pain in right leg M79.604 ; Encounter for immunization Z23 and Pain of left leg M79.605 [facility] [id number] [place] [address] 55271- 0221 Jun, [facility] [id number] [place] [address] 12478- 6848 Jun, [facility] [id number] [place] [address] 23652- 5650 Jun, Degenerative disc disease 722.6 [facility] [id number] [place] [address] 22124- 2900 Jun, [facility] [facility] [address] 54436- 5783 May, Seizures 780.39 and Autonomic peripheral neuropathy 337.9 [facility] [id number] [place] [address] 91024- 6229 May, [facility] [facility] [address] 19980- 9146 May, [facility] [address] [address]- 8316 May, Degenerative disc disease 722.6 [facility] [address] [address]- 4446 May, [facility] [id number] [place] [address] 52475- 5331 Mar, [facility] [id number] [place] [address] 60162- 0774 Mar, Degenerative disc disease 722.6 ; Spinal stenosis 724.00 and HTN (hypertension) 401.9 [facility] [id number] [place] [address] 09780- 8126 Feb, Cutaneous horn 702.8 [facility] [id number] [place] [address] 24344- 7586 Feb, Fatigue 780.79 [facility] [id number] [place] [address] 17030- 2208 Feb, Fatigue 780.79 ; Arthritis 716.90 ; Spinal stenosis 724.00 ; Sinusitis 473.9 and Cutaneous horn 702.8 [facility] [address] [address]- 9326 January, [facility] [address] [address]- 9996 Dec, [facility] [address] [address]- 4756 Dec, [facility] [address] [place] [address] 15092- 0676 Nov, [facility] [address] [address]- 2546 Nov, [facility] [address] [address]- 3466 Oct, [facility] [place] [facility] [address] [id number] [place] [address]- 1591 Oct, [facility] [place] [facility] [address] [id number] [place] [address]- 1500 Oct, [facility] [place] [facility] [address] [id number] [place] [address]- 5628 Oct, [facility] [place] [facility] [address] [id number] [place] [address]- 2746 Oct, [facility] [place] [facility] [address] [id number] [place] [address]- 2932 Oct, [facility] [place] [facility] [address] [id number] [place] [address]- 1932 Sep, [facility] [place] [facility] [address] [id number] [place] [address]- 0501 Sep, [facility] [place] [facility] [address] [id number] [place] [address]- 6882 Sep, [facility] [place] [facility] [address] [id number] [place] [address]- 7056 Sep, [facility] [place] [facility] [address] [id number] [place] [address]- 1913 Sep, [facility] [place] [facility] [address] [id number] [place] [address]- 6481 Sep, [facility] [place] [facility] [address] [id number] [place] [address]- 2385 Sep, [facility] [place] [facility] [address] [id number] [place] [address]- 4106 Sep, [facility] [place] [facility] [address] [id number] [place] [address]- 0137 Sep, [facility] [place] [facility] [address] [id number] [place] [address]- 7035 Sep, [facility] [place] [facility] [address] [id number] [place] [address]- 7475 16 Sep, 2014 [facility] [place] [facility] [address] [id number] [place] [address]- 0665 16 Sep, 2014 [facility] [place] [facility] [address] [id number] [place] [address]- 8945 Sep, [facility] [place] [facility] [address] [id number] [place] [address]- 1976 Sep, [facility] [place] [facility] [address] [id number] [place] [address]- 2416 Aug, [facility] [place] [facility] [address] [id number] [place] [address]- 0543 Aug, [facility] [place] [facility] [address] [id number] [place] [address]- 4411 Aug, [facility] [place] [facility] [address] [id number] [place] [address]- 2764 Aug, [facility] [place] [facility] [address] [id number] [place] [address]- 8456 Jul, [facility] [place] [facility] [address] [id number] [place] [address]- 7233 Jul, [facility] [place] [facility] [address] [id number] [place] [address]- 2049 23 May, 2014 [facility] [place] [facility] [address] [id number] [place] [address]- 3814 23 May, 2013 [facility] [place] [facility] [address] [id number] [place] [address]- 2410 23 May, 2013 [facility] [place] [facility] [address] [id number] [place] [address]- 2243 23 May, 2013 [facility] [place] [facility] [address] [id number] [place] [address]- 7295 08 May, 2013 [facility] [place] [facility] [address] [id number] [place] [address]- 1714 08 May, 2013 [facility] [place] [facility] [address] [id number] [place] [address]- 7869 Apr, [facility] [place] [facility] [address] [id number] [place] [address]- 5450 Apr, [facility] [place] [facility] [address] [id number] [place] [address]- 0746 Mar, [facility] [place] [facility] [address] [id number] [place] [address]- 5492 Mar, [facility] [place] [facility] [address] [id number] [place] [address]- 7096 Mar, [facility] [place] [facility] [address] [id number] [place] [address]- 1069 Mar, [facility] [place] [facility] [address] [id number] [place] [address]- 0295 Mar, [facility] [place] [facility] [address] [id number] [place] [address]- 8663 Mar, [facility] [place] [facility] [address] [id number] [place] [address]- 7037 Mar, [facility] [place] [facility] [address] [id number] [place] [address]- 3300 Mar, [facility] [place] [facility] [address] [id number] [place] [address]- 2064 Feb, [facility] [place] [facility] [address] [id number] [place] [address]- 9270 Feb, [facility] [place] [facility] [address] [id number] [place] [address]- 7308 January, [facility] [place] [facility] [address] [id number] [place] [address]- 9286 January, [facility] [place] [facility] [address] [id number] [place] [address]- 9941 January, [facility] [place] [facility] [address] [id number] [place] [address]- 1469 January, [facility] [address] [id number] [place] [address]- 5894 Dec, [facility] [place] [facility] [address] [id number] [place] 5264 Dec, [facility] [place] [facility] [address] [id number] [place] [address]- 6439 Oct, [facility] [place] [facility] [address] [id number] [place] [address]- 5090 Oct, [facility] [place] [facility] [address] [id number] [place] [address]- 5474 Oct, [facility] [place] [facility] [address] [id number] [place] [address]- 2849 Oct, [facility] [place] [facility] [address] [id number] [place] [address]- 7237 Sep, [facility] [place] [facility] [address] [id number] [place] [address]- 2136 Sep, [facility] [place] [facility] [address] [id number] [place] [address]- 8740 Aug, [facility] [place] [facility] [address] [id number] [place] [address]- 1348 Aug, [facility] [place] [facility] [address] [id number] [place] [address]- 1047 Aug, [facility] [place] [facility] [address] [id number] [place] [address]- 1955 Aug, [facility] [place] [facility] [address] [id number] [place] [address]- 6807 Aug, [facility] [place] [facility] [address] [id number] [place] [address]- 5171 Aug, [facility] [place] [facility] [address] [id number] [place] [address]- 9694 Aug, [facility] [place] [facility] [address] [id number] [place] [address]- 3570 Aug, [facility] [address] [id number] [place] [address]- 0755 Aug, [facility] [place] [facility] [address] [id number] [place] [address]- 3799 Aug, [facility] [address] [id number] [place] [address] Jul, [facility] [place] [facility] [address] [id number] [place] [address] Jul, [facility] [address] [id number] [place] [address] Jun, [facility] [address] [id number] [place] [address] Jun, [facility] [place] [facility] [address] [id number] [place] [address] Jun, [facility] [address] [id number] [place] [address] Jun, [facility] [place] [facility] [address] [id number] [place] [address] Jun, [facility] [address] [id number] [place] [address] 13 May, 2013 [facility] [place] [facility] [address] [id number] [place] [address] 13 May, 2013 [facility] [place] [facility] [address] [id number] [place] [address]- [address] 12 May, 2013 [facility] [place] [facility] [address] [id number] [place] [address] 06 May, 2013 [facility] [place] [facility] [address] [id number] [place] [address]- [address] 03 May, 2013 [facility] [place] [facility] [address] [id number] [place] [address]- [address] Apr, [facility] [address] [id number] [place] [address] Mar, [facility] [place] [facility] [address] [id number] [place] [address] Mar, [facility] [place] [facility] [address] [id number] [place] [address] Mar, [facility] [place] [facility] [address] [id number] [place] [address]- [address] Mar, [facility] [address] [id number] [place] [address]- [address] Mar, [facility] [place] [facility] [address] [id number] [place] [address] Mar, [facility] [place] [facility] [address] [id number] [place] [address] Mar, [facility] [place] [facility] [address] [id number] [place] [address] Mar, [facility] [place] [facility] [address] [id number] [place] [address] Mar, [facility] [place] [facility] [address] [id number] [place] [address] Feb, [facility] [place] [facility] [address] [id number] [place] [address] Feb, [facility] [place] [facility] [address] [id number] [place] [address] Feb, [facility] [place] [facility] [address] [id number] [place] [address] January, [facility] [place] [facility] [address] [id number] [place] [address] January, [facility] [place] [facility] [address] [id number] [place] [address] January, [facility] [place] [facility] [address] [id number] [place] [address] January, [facility] [address] [id number] [place] [address] 18 Dec, 2012 [facility] [address] [id number] [place] [address] 17 Dec, 2012 [facility] [address] [id number] [place] [address]- [address] 12 Dec, 2012 [facility] [place] [facility] [address] [id number] [place] [address] 10 Dec, 2012 [facility] [address] [id number] [place] [address] 08 Dec, 2012 [facility] [address] [id number] [place] [address] Dec, [facility] [address] [id number] [place] [address] Nov, [facility] [address] [id number] [place] [address] Oct, [facility] [address] [id number] [place] [address] Aug, [facility] [address] [id number] [place] [address] Aug, [facility] [address] [id number] [place] [address] Aug, [facility] [place] [facility] [address] [id number] [place] [address] Aug, [facility] [place] [facility] [address] [id number] [place] [address] Aug, [facility] [place] [facility] [address] [id number] [place] [address] Aug, [facility] [address] [id number] [place] [address] Aug, [facility] [place] [facility] [address] [id number] [place] [address] Aug, [facility] [place] [facility] [address] [id number] [place] [address] Aug, [facility] [place] [facility] [address] [id number] [place] [address] Aug, [facility] [place] [facility] [address] [id number] [place] [address] Aug, [facility] [place] [facility] [address] [id number] [place] [address] Jul, [facility] [place] [facility] [address] [id number] [place] [address] Jul, [facility] [place] [facility] [address] [id number] [place] [address] Jul, [facility] [place] [facility] [address] [id number] [place] [address] Jul, [facility] [place] [facility] [address] [id number] [place] [address] Jul, [facility] [place] [facility] [address] [id number] [place] [address] Jul, [facility] [place] [facility] [address] [id number] [place] [address] Jun, [facility] [place] [facility] [address] [id number] [place] [address] Jun, [facility] [place] [facility] [address] [id number] [place] [address] May, [facility] [place] [facility] [address] [id number] [place] [address] Apr, [facility] [place] [facility] [address] [id number] [place] [address] Apr, [facility] [place] [facility] [address] [id number] [place] [address] Apr, [facility] [place] [facility] [address] [id number] [place] [address] Apr, [facility] [place] [facility] [address] [id number] [place] [address] Apr, [facility] [place] [facility] [address] [id number] [place] [address] Mar, [facility] [place] [facility] [address] [id number] [place] [address] Mar, [facility] [place] [facility] [address] [id number] [place] [address] January, [facility] [place] [facility] [address] [id number] [place] [address] January, [facility] [place] [facility] [address] [id number] [place] [address] Nov, [facility] [place] [facility] [address] [id number] [place] [address] Oct, [facility] [place] [facility] [address] [id number] [place] [address] Sep, [facility] [place] [facility] [address] [id number] [place] [address] Sep, [facility] [place] [facility] [address] [id number] [place] [address] Sep, [facility] [place] [facility] [address] [id number] [place] [address] Sep, [facility] [place] [facility] [address] [id number] [place] [address] Sep, [facility] [place] [facility] [address] [id number] [place] [address] Sep, [facility] [place] [facility] [address] [id number] [place] [address] Aug, [facility] [place] [facility] [address] [id number] [place] [address] 14 Aug, 2011 [facility] [address] [id number] [place] [address] Aug, [facility] [place] [facility] [address] [id number] [place] [address] Aug, [facility] [address] [id number] [place] [address] Aug, [facility] [place] [facility] [address] [id number] [place] [address] Jul, [facility] [address] [id number] [place] [address] Jul, [facility] [address] [id number] [place] [address] Jul, [facility] [address] [id number] [place] [address] Jun, [facility] [address] [id number] [place] [address] Jun, [facility] [address] [id number] [place] [address] Jun, [facility] [address] [id number] [place] [address] January, [facility] [place] [facility] [address] [id number] [place] [address] Dec, [facility] [address] [id number] [place] [address] Oct, [facility] [place] [facility] [address] [id number] [place] [address] Oct, [facility] [place] [facility] [address] [id number] [place] [address] Jun, [facility] [place] [facility] [address] [id number] [place] [address] Aug, [facility] [address] [facility] [id number] [place] [address] Aug, [facility] [address] [facility] [id number] [address] Jul, [facility] [address] [facility] [id number] [place] [address] Mar, IMMUNIZATIONS No Known Immunizations SOCIAL HISTORY Never Assessed REASON FOR VISIT Controlled Med Refill 07/17/18 PLAN OF CARE VITAL SIGNS MEDICATIONS Medication Instructions Dosage Frequency Start Date End Date Duration Status Xanax 0.5 MG Orally 3 times a day as needed 1 tablet 28 days Active RESULTS No Results PROCEDURES No Known procedures INSTRUCTIONS MEDICATIONS ADMINISTERED No Known Medications MEDICAL (GENERAL) HISTORY Type Description Date Medical History Hypertension Medical History Chronic Obstructive pulmonary disease diagnosed 2008 in [place]-PFT not done previously Medical History Gastrointestinal disorder [...]
--- OUTSIDE RECORDS SUMMARY | 2018-08-21 15:29 | XMS REPORT ---
Author Author KAITLIN TURNER [facility] Address [address] [place] [address] Care Team Providers Care Gum Remover Name Role Phone KAITLIN TURNER Unavailable PROBLEMS ALLERGIES ENCOUNTERS IMMUNIZATIONS SOCIAL HISTORY No smoking Hx information available REASON FOR VISIT PLAN OF CARE VITAL SIGNS MEDICATIONS RESULTS No Results PROCEDURES INSTRUCTIONS MEDICATIONS ADMINISTERED No Known Medications MEDICAL (GENERAL) HISTORY
--- OUTSIDE RECORDS SUMMARY | 2018-08-21 15:29 | XMS REPORT ---
Author Author KAITLIN TURNER Organization [facility] Address [address] [place] [address] Care Team Providers Care Digital Commentator Name Role Phone KAITLIN TURNER Unavailable PROBLEMS Type Condition ICD9-CM Code OEV23-UU Code Onset Dates Condition Status SNOMED Code Problem Chronic sinusitis, unspecified J32.9 Active 14938669 Problem Other chronic pain G89.29 Active 66696068 Problem Gastroesophageal reflux disease without esophagitis K21.9 Active 921723318 Problem Slow transit constipation K59.01 Active 13831431 Problem Coronary artery disease involving round valley coronary artery of round valley heart without angina pectoris I25.10 Active 6830910199731 Problem Agoraphobia with panic attacks F40.01 Active 889166076 Problem COPD with exacerbation J44.1 Active 451046799 Problem Pericardial effusion I31.3 Active 319670880 Problem Pleural effusion on left J90 Active 83723046 Problem Generalized anxiety disorder F41.1 Active 53337275 Problem Chronic obstructive pulmonary disease, unspecified COPD type J44.9 Active 66144452 Problem Hypertension, benign I10 Active 43674429 Problem Oral phase dysphagia R13.11 Active 613998613 Problem Vitamin B 12 deficiency E53.8 Active 39071243 Problem Chronic fatigue R53.82 Active 95506948 ALLERGIES No Information ENCOUNTERS Encounter Location Date Diagnosis [facility] [id number] [address] 24 May, 2018 Flank pain R10.9 [facility] [id number] [place] [address] 59821- 5159 17 May, 2018 Pericardial effusion I31.3 ; Encounter for immunization Z23 ; Generalized anxiety disorder F41.1 ; Chronic obstructive pulmonary disease, unspecified COPD type J44.9 and Coronary artery disease involving round valley coronary artery of round valley heart without angina pectoris I25.10 [facility] [id number] [place] [address] 06048- 0344 Apr, Flank pain R10.9 [place] [address] 8[address]73- 0980 Apr, Generalized anxiety disorder F41.1 [place] [id number] [place] [address] 23552- 3304 Apr, Generalized anxiety disorder F41.1 [place] [address] 05476- 2349 Apr, Flank pain R10.9 and Chronic prescription benzodiazepine use Z79.899 [place] [address] 89305- 7778 Mar, Flank pain R10.9 [place] [id number] [place] [address] 66768- 4554 Mar, [place] [address] 60621- 2076 Feb, Coronary artery disease involving round valley coronary artery of round valley heart without angina pectoris I25.10 ; Vitamin B 12 deficiency E53.8 ; Slow transit constipation K59.01 ; Generalized anxiety disorder F41.1 and Breast cancer screening by mammogram Z12.31 [place] [id number] [place] [address] 07363- 4472 Feb, Flank pain R10.9 [place] [id number] [place] [address] 05746- 5438 January, [place] [id number] [place] [address] 94899- 6502 January, Chronic obstructive pulmonary disease, unspecified COPD type J44.9 ; Pleural effusion on left J90 ; Pericardial effusion I31.3 and Generalized anxiety disorder F41.1 [place] [id number] [place] [address] 33777- 0126 January, Gastroenteritis K52.9 [place] [address] 77844- 8694 January, Flank pain R10.9 [facility] [address] [address] 7[address] January, [facility] [place] [id number] [address] Dec [facility] [address] [address] 6702 Dec, [facility] [id number] [place] [address] 67491- 6768 Dec, [facility] [id number] [place] [address] 24996- 5254 Dec, [facility] [id number] [place] [address] 75718- 0177 Dec, [facility] [id number] [place] [address] 01254- 6768 Dec, Flank pain R10.9 [facility] [id number] [place] [address] 46172- 6092 Dec, [facility] [id number] [place] [address] 78546- 2988 Nov, [facility] [address] [address] 3014 Nov, [facility] [id number] [place] [address] 75316- 4232 Nov, [facility] [address] [address] 9143 14 Nov, 2017 Pericardial effusion I31.3 ; Agoraphobia with panic attacks F40.01 and Vitamin B 12 deficiency E53.8 [facility] [id number] [address] 2453 Nov, [facility] [address] [address] 5784 Nov, Pneumonia of both lungs due to infectious organism, unspecified part of lung J18.9 and Flank pain R10.9 [facility] [id number] [place] [address] 24207- 9803 Nov, Pneumonia of both lungs due to infectious organism, unspecified part of lung J18.9 and Gastroenteritis K52.9 [facility] [id number] [place] [address] 98005- 9949 Oct, Pneumonia of both lungs due to infectious organism, unspecified part of lung J18.9 and Vitamin B 12 deficiency E53.8 [facility] [address] [id number] Oct, [facility] [address] 47472- 3613 Oct, [facility] [id number] [place] [address] 24761- 7809 Oct, [facility] [id number] [place] [address] 79769- 5247 Oct, Flank pain R10.9 [facility] [address] 13606- 6696 Oct, Other chronic pain G89.29 and Unspecified abdominal pain R10.9 [facility] [id number] [place] [address] 23593- 3534 Sep, Flank pain R10.9 [facility] [id number] [place] [address] 31060- 0659 Sep, [facility] [id number] [place] [address] 36657- 7159 Sep, [facility] [address] 27041- 2155 Sep, Acute non-recurrent maxillary sinusitis J01.00 [facility] [id number] [place] [address] 40917- 1936 Sep, Acute non-recurrent maxillary sinusitis J01.00 and Vitamin B 12 deficiency E53.8 [place] [id number] [place] [address] 31447- 6820 Sep, [facility] [id number] [place] [address] 73130- 6695 Sep, [place] [id number] [place] [address] 44617- 8592 Sep, [place] [address] 06151- 9820 Sep, COPD with exacerbation J44.1 [place] [address] 21821- 4802 Sep, Chronic obstructive pulmonary disease, unspecified COPD type J44.9 [place] [id number] [place] [address] 78657- 7581 Aug, Flank pain R10.9 [place] [address] 51890- 9984 Jul, Flank pain R10.9 and Vitamin B 12 deficiency E53.8 [place] [id number] [place] [address] 94366- 6173 Jul, [place] [id number] [place] [address] 82250- 8250 Jun, Gastroenteritis K52.9 [place] [id number] [place] [address] 99314- 0278 May, Gastroenteritis K52.9 and Vitamin B 12 deficiency E53.8 [place] [id number] [place] [address] 01073- 5760 Apr, Allergic conjunctivitis of left eye H10.12 and Chronic fatigue R53.82 [place] [id number] [place] [address] 78321- 9510 Apr, Chronic sinusitis, unspecified J32.9 [place] [id number] [place] [address] 85441- 6587 Apr, [facility] [id number] [place] [address] 93578- 3868 Feb, [facility] [id number] [place] [address] 27222- 1309 January, [facility] [address] 32530- 8989 Dec, [facility] [address] 17162- 4409 Oct, [facility] [address] 90395- 5544 Sep, Oral phase dysphagia R13.11 and Vitamin B 12 deficiency E53.8 [facility] [id number] [place] [address] 31498- 6838 Sep, [facility] [id number] [place] [address] 75526- 7449 Jul, [facility] [id number] [place] [address] 08786- 2410 Jul, [facility] [id number] [place] [address] 63333- 0524 Jun, Bronchitis J40 ; Generalized anxiety disorder F41.1 and Chronic obstructive pulmonary disease, unspecified COPD type J44.9 [facility] [id number] [place] [address] 40135- 3816 Jun, [facility] [id number] [place] [address] 75123- 8278 Jun, [facility] [id number] [place] [address] 21035- 1113 Jun, [facility] [id number] [place] [address] 24290- 3876 15 May, 2016 Vitamin B 12 deficiency E53.8 ; Essential (primary) hypertension I10 ; Generalized anxiety disorder F41.1 ; Pain in joint, ankle and foot 719.47 ; Arthritis M19.90 ; Chronic obstructive pulmonary disease, unspecified COPD type J44.9 and Encounter for immunization Z23 [facility] [id number] [place] [address] 88369- 5109 Apr, [facility] [address] 86610- 3274 Apr, [facility] [address] 21834- 0757 Mar, [facility] [address] 95745- 5831 January, [facility] [address] 94477- 5834 Dec, [facility] [id number] [place] [address] 27566- 3879 Oct, [facility] [id number] [place] [address] 25834- 3743 Oct, [facility] [id number] [place] [address] 39239- 5984 Oct, Hypertension, benign I10 and Vitamin B 12 deficiency E53.8 [facility] [id number] [place] [address] 58522- 8928 Oct, [facility] [id number] [place] [address] 48777- 8116 Oct, [facility] [id number] [place] [address] 65327- 1745 Oct, Irritable bowel syndrome with diarrhea K58.0 [place] [address] 01521- 0543 Oct, [facility] [id number] [place] [address] 74973- 7153 Oct, Vitamin B 12 deficiency E53.8 ; Hypertension, benign I10 and Chronic obstructive pulmonary disease, unspecified COPD type J44.9 [place] [id number] [place] [address] 74840- 7097 Sep, Irritable bowel syndrome with diarrhea K58.0 ; Hypertension , benign I10 ; Chronic obstructive pulmonary disease, unspecified COPD type J44.9 ; Edema, unspecified type R60.9 ; Vision changes H53.9 and Vitamin B 12 deficiency E53.8 [place] [address] 13050- 7639 Sep, [place] [id number] [place] [address] 71798- 0016 Jul, Degenerative disc disease 722.[address] 38692- 4228 Jun, Pain in right leg M79.604 ; Encounter for immunization Z23 and Pain of left leg M79.605 [id number] [place] [address] 15866- 0709 Jun, [place] [id number] [place] [address] 89464- 1806 Jun, [place] [id number] [place] [address] 52236- 9855 Jun, Degenerative disc disease 722.6 [address] [id number] [place] [address] 68777- 7227 Jun, [place] [id number] [place] [address] 58353- 7135 28 May, 2015 Seizures 780.39 and Autonomic peripheral neuropathy 337.[address] 68517- 9764 18 May, 2015 [address] [id number] [place] [address] 01627- 0950 17 May, [address] 96203- 0638 May, Degenerative disc disease 722.6 [facility] [address], [place] [address]- 3597 May, [facility] [id number] [place] [address] 53512- 0759 Mar, [facility] [id number] [place] [address] 56707- 2319 Mar, Degenerative disc disease 722.6 ; Spinal stenosis 724.00 and HTN (hypertension) 401.9 [facility] [address] [place] [address] 536365- 8872 Feb, Cutaneous horn 702.8 [facility] [id number] [place] [address] 282773- 7022 Feb, Fatigue 780.79 [facility] [id number] [place] [address] 42867- 3105 Feb, Fatigue 780.79 ; Arthritis 716.90 ; Spinal stenosis 724.00 ; Sinusitis 473.9 and Cutaneous horn 702.8 [facility] [address] [place] [address] 04297- 1620 January, [facility] [address] [place] [address] 04089- 9031 Dec, [facility] [address] [address]- 8741 Dec, [facility] [id number] [place] [address] 79368- 5287 Nov, [facility] [id number] [place] [address] 475328- 2111 Nov, [facility] [address] [place] [address] 295715- 7397 Oct, [facility] [address] 4973 Oct, [facility] [place] [facility] [address] [id number] [place] [address]- 5466 Oct, [facility] [place] [facility] [address] [id number] [place] [address]- 6216 Oct, [facility] [place] [facility] [address] [id number] [place] [address]- 1253 Oct, [facility] [place] [facility] [address] [id number] [place] [address]- 3764 Oct, [facility] [place] [facility] [address] [id number] [place] [address]- 9542 Sep, [facility] [place] [facility] [address] [id number] [place] [address]- 0475 Sep, [facility] [place] [facility] [address] [id number] [place] [address]- 2207 Sep, [facility] [place] [facility] [address] [id number] [place] [address]- 7667 Sep, [facility] [place] [facility] [address] [id number] [place] [address]- 3805 Sep, [facility] [place] [facility] [address] [id number] [place] [address]- 2867 Sep, [facility] [place] [facility] [address] [id number] [place] [address]- 7504 Sep, [facility] [place] [facility] [address] [id number] [place] [address]- 2442 Sep, [facility] [place] [facility] [address] [id number] [place] [address]- 2738 Sep, [facility] [place] [facility] [address] [id number] [place] [address]- 6451 Sep, [facility] [place] [facility] [address] [id number] [place] [address]- 2213 Sep, [facility] [place] [facility] [address] [id number] [place] [address]- 0415 Sep, [facility] [place] [facility] [address] [id number] [place] [address]- 1221 Sep, [facility] [place] [facility] [address] [id number] [place] [address]- 7702 Sep, [facility] [place] [facility] [address] [id number] [place] [address]- 7342 Aug, [facility] [place] [facility] [address] [id number] [place] [address]- 5893 Aug, [facility] [place] [facility] [address] [id number] [place] [address]- 7801 Aug, [facility] [place] [facility] [address] [id number] [place] [address]- 6055 Aug, [facility] [place] [facility] [address] [id number] [place] [address]- 9531 Jul, [facility] [place] [facility] [address] [id number] [place] [address]- 8799 Jul, [facility] [place] [facility] [address] [id number] [place] [address]- 9434 May, [facility] [place] [facility] [address] [id number] [place] [address]- 4743 May, [facility] [place] [facility] [address] [id number] [place] [address]- 1259 May, [facility] [place] [facility] [address] [id number] [place] [address]- 1889 May, [facility] [place] [facility] [address] [id number] [place] [address]- 5061 May, [facility] [place] [facility] [address] [id number] [place] [address]- 9960 May, [facility] [place] [facility] [address] [id number] [place] [address]- 8722 Apr, [facility] [place] [facility] [address] [id number] [place] [address]- 1089 Apr, [facility] [place] [facility] [address] [id number] [place] [address]- 1127 Mar, [facility] [place] [facility] [address] [id number] [place] [address]- 8164 Mar, [facility] [place] [facility] [address] [id number] [place] [address]- 3417 Mar, [facility] [place] [facility] [address] [id number] [place] [address]- 0860 Mar, [facility] [place] [facility] [address] [id number] [place] [address]- 4556 Mar, [facility] [place] [facility] [address] [id number] [place] [address]- 0304 Mar, [facility] [place] [facility] [address] [id number] [place] [address]- 4510 Mar, [facility] [place] [facility] [address] [id number] [place] [address]- 5030 Mar, [facility] [place] [facility] [address] [id number] [place] [address]- 1948 Feb, [facility] [place] [facility] [address] [id number] [place] [address]- 4307 Feb, [facility] [place] [facility] [address] [id number] [place] [address]- 7499 January, [facility] [place] [facility] [address] [id number] [place] [address]- 5892 January, [facility] [place] [facility] [address] [id number] [place] [address]- 8585 January, [facility] [place] [facility] [address] [id number] [place] [address]- 4756 January, [facility] [place] [facility] [address] [id number] [place] [address]- 0047 Dec, [facility] [address] [id number] [place] [address]- 5229 Dec, [facility] [place] [facility] [address] [id number] [place] [address]- 4006 Oct, [facility] [address] [id number] [place] [address]- 6036 Oct, [facility] [place] [facility] [address] [id number] [place] [address]- 7576 Oct, [facility] [address] [id number] [place] [address]- 9776 Oct, [facility] [address] [id number] [place] [address]- 5398 Sep, [facility] [address] [id number] [place] [address]- 5473 Sep, [facility] [address] [id number] [place] [address]- 0212 Aug, [facility] [address] [id number] [place] [address]- 1220 Aug, [facility] [place] [facility] [address] [id number] [place] [address]- 0457 Aug, [facility] [place] [facility] [address] [id number], [place] [address]- 5653 Aug, [facility] [place] [facility] [address] [id number] [address]- 9544 Aug, [facility] [place] [facility] [address] [id number] [place] [address]- 5755 Aug, [facility] [place] [facility] [address] [id number] [place] [address]- 5814 Aug, [facility] [place] [facility] [address] [id number] [place] [address]- 6506 Aug, [facility] [place] [facility] [address] [id number] [place] [address]- 0771 Aug, [facility] [address] [id number] [place] [address]- 6837 Aug, [facility] [place] [facility] [address] [id number] [place] [address]- 6960 Jul, [facility] [place] [facility] [address] [id number] [place] [address]- 5309 Jul, [facility] [place] [facility] [address] [id number] [place] [address]- 4288 Jun, [facility] [place] [facility] [address] [id number] [place] [address]- 1398 Jun, [facility] [place] [facility] [address] [id number] [place] [address]- 5725 Jun, [facility] [place] [facility] [address] [id number] [place] [address]- 8384 Jun, [facility] [place] [facility] [address] [id number] [place] [address]- 7794 Jun, [facility] [place] [facility] [address] [id number] [place] [address]- 8952 13 May, 2013 [facility] [place] [facility] [address] [id number] [place] [address]- 1669 13 May, 2013 [facility] [place] [facility] [address] [id number] [place] [address]- 5545 12 May, 2013 [facility] [place] [facility] [address] [id number] [place] [address] 06 May, 2013 [facility] [place] [facility] [address] [id number] [place] [address] 03 May, 2013 [facility] [place] [facility] [address] [id number] [place] [address] Apr, [facility] [place] [facility] [address] [id number] [place] [address] Mar, [facility] [place] [facility] [address] [id number] [place] [address] 15 Mar, 2013 [facility] [address] [id number] [place] [address] Mar, [facility] [place] [facility] [address] [id number] [place] [address] Mar, [facility] [address] [id number] [place] [address] Mar, [facility] [address] [id number] [place] [address] Mar, [facility] [place] [facility] [address] [id number] [place] [address] Mar, [facility] [address] [id number] [place] [address] Mar, [facility] [address] [id number] [place] [address] Mar, [facility] [address] [id number] [place] [address] Feb, [facility] [place] [facility] [address] [id number] [place] [address] Feb, [facility] [place] [facility] [address] [id number] [place] [address] Feb, [facility] [place] [facility] [address] [id number] [place] [address] January, [facility] [place] [facility] [address] [id number] [place] [address] January, [facility] [place] [facility] [address] [id number] [place] [address] January, [facility] [place] [facility] [address] [id number] [place] [address] January, [facility] [place] [facility] [address] [id number] [place] [address] 18 Dec, 2012 [facility] [address] [id number] [place] [address] 17 Dec, 2012 [facility] [place] [facility] [address] [id number] [place] [address] Dec, [facility] [place] [facility] [address] [id number] [place] [address] Dec, [facility] [place] [facility] [address] [id number] [place] [address] Dec, [facility] [address] [id number] [place] [address] Dec, [facility] [address] [id number] [place] [address] Nov, [facility] [address] [id number] [place] [address] Oct, [facility] [place] [facility] [address] [id number] [place] [address] Aug, [facility] [address] [id number] [place] [address] Aug, [facility] [place] [facility] [address] [id number] [place] [address] Aug, [facility] [facility] [address] [id number] [place] [address] Aug, [facility] [place] [facility] [address] [id number] [place] [address] Aug, [facility] [place] [facility] [address] [id number] [id number] [address] Aug, [facility] [place] [facility] [address] [id number] [place] [address] Aug, [facility] [place] [facility] [address] [id number] [place] [address] Aug, [facility] [place] [facility] [address] [id number] [place] [address] Aug, [facility] [place] [facility] [address] [id number] [place] [address] Aug, [facility] [place] [facility] [address] [id number] [place] [address] Aug, [facility] [place] [facility] [address] [id number] [place] [address] Jul, [facility] [place] [facility] [address] [id number] [place] [address] Jul, [facility] [place] [facility] [address] [id number] [place] [address] Jul, [facility] [place] [facility] [address] [id number] [place] [address] Jul, [facility] [place] [facility] [address] [id number] [place] [address] Jul, [facility] [place] [facility] [address] [id number] [place] [address] Jul, [facility] [place] [facility] [address] [id number] [place] [address] Jun, [facility] [place] [facility] [address] [id number] [place] [address] Jun, [facility] [place] [facility] [address] [id number] [place] [address] May, [facility] [place] [facility] [address] [id number] [place] [address] Apr, [facility] [place] [facility] [address] [id number] [place] [address] Apr, [facility] [place] [facility] [address] [id number] [place] [address] Apr, [facility] [place] [facility] [address] [id number] [place] [address] Apr, [facility] [address] [id number] [place] [address] Apr, [facility] [place] [facility] [address] [id number] [place] [address] Mar, [facility] [place] [facility] [address] [id number] [place] [address] Mar, [facility] [place] [facility] [address] [id number] [place] [address] January, [facility] [place] [facility] [address] [id number] [place] [address] January, [facility] [place] [facility] [address] [id number] [place] [address] Nov, [facility] [place] [facility] [address] [id number] [place] [address] Oct, [facility] [place] [facility] [address] [id number] [place] [address] Sep, [facility] [place] [facility] [address] [id number] [place] [address] Sep, [facility] [place] [facility] [address] [id number] [place] [address] Sep, [facility] [place] [facility] [address] [id number] [place] [address] Sep, [facility] [place] [facility] [address] [id number] [place] [address] Sep, [facility] [place] [facility] [address] [id number] [place] [address] Sep, [facility] [place] [facility] [address] [id number] [place] [address] Aug, [facility] [place] [facility] [address] [id number] [place] [address] Aug, [facility] [place] [facility] [address] [id number] [place] [address] Aug, [facility] [address] [id number] [place] [address] Aug, [facility] [place] [facility] [address] [id number] [place] [address] Aug, [facility] [place] [facility] [address] [id number] [place] [address] Jul, [facility] [place] [facility] [address] [id number] [place] [address] Jul, [facility] [place] [facility] [address] [id number] [place] [address] Jul, [facility] [place] [facility] [address] [id number] [place] [address] Jun, [facility] [place] [facility] [address] [id number] [place] [address] Jun, [facility] [place] [facility] [address] [id number] [place] [address] Jun, [facility] [place] [facility] [address] [id number] [place] [address] January, [facility] [place] [facility] [address] [id number] [place] [address] Dec, [facility] [place] [facility] [address] [id number] [place] [address] Oct, [facility] [place] [facility] [address] [id number], [place] [address] Oct, [facility] [place] [facility] [address] [id number] [place] [address] Jun, [facility] [place] [facility] [address] [id number], [place] [address] Aug, [facility] [place] [facility] [address] [id number][place] [address] Aug, [facility] [address] [facility] [id number] [place] [address] Jul, [facility] [address] [facility] [id number] [id number] Mar, IMMUNIZATIONS No Known Immunizations SOCIAL HISTORY Never Assessed REASON FOR VISIT Controlled Med Refill 06/19/18 PLAN OF CARE VITAL SIGNS MEDICATIONS Medication Instructions Dosage Frequency Start Date End Date Duration Status Xanax 0.5 MG Orally 3 times a day as needed 1 tablet 28 days Active RESULTS No Results PROCEDURES No Known procedures INSTRUCTIONS MEDICATIONS ADMINISTERED No Known Medications MEDICAL (GENERAL) HISTORY Type Description Date Medical History Hypertension Medical History Chronic Obstructive pulmonary disease diagnosed 2008 in [place]-PFT not done previously Medical History Gastrointestinal disorder [...]
--- OUTSIDE RECORDS SUMMARY | 2018-08-21 15:30 | XMS REPORT ---
Author Author KAITLIN TURNER Organization [facility] Address [address] [place] [address] Care Team Providers Care Digital Account Supervisor Name Role Phone KAITLIN TURNER Unavailable PROBLEMS Type Condition ICD9-CM Code GQG15-TN Code Onset Dates Condition Status SNOMED Code Problem Chronic sinusitis, unspecified J32.9 Active 12474044 Problem Other chronic pain G89.29 Active 94217119 Problem Gastroesophageal reflux disease without esophagitis K21.9 Active 372022962 Problem Slow transit constipation K59.01 Active 77322261 Problem Coronary artery disease involving [place] coronary artery of [place] heart without angina pectoris I25.10 Active 2220696666208 Problem Agoraphobia with panic attacks F40.01 Active 383712018 Problem COPD with exacerbation J44.1 Active 209315244 Problem Pericardial effusion I31.3 Active 126482439 Problem Pleural effusion on left J90 Active 99903706 Problem Generalized anxiety disorder F41.1 Active 18685450 Problem Chronic obstructive pulmonary disease, unspecified COPD type J44.9 Active 54127482 Problem Hypertension, benign I10 Active 83247204 Problem Oral phase dysphagia R13.11 Active 236644282 Problem Vitamin B 12 deficiency E53.8 Active 71966914 Problem Chronic fatigue R53.82 Active 53074013 ALLERGIES No Information ENCOUNTERS Encounter Location Date Diagnosis [facility] [id number] [address] 24 May, 2018 Flank pain R10.9 [facility] [id number] [place] [address] 73459- 9879 17 May, 2018 Pericardial effusion I31.3 ; Encounter for immunization Z23 ; Generalized anxiety disorder F41.1 ; Chronic obstructive pulmonary disease, unspecified COPD type J44.9 and Coronary artery disease involving [place] coronary artery of [place] heart without angina pectoris I25.10 [facility] [id number] [place] [address] 03826- 5554 Apr, Flank pain R10.9 [place] [id number] [address]- 0895 Apr, Generalized anxiety disorder F41.1 [place] [id number] [place] [address] 59873- 0552 Apr, Generalized anxiety disorder F41.1 [place] [address] 91004- 4018 Apr, Flank pain R10.9 and Chronic prescription benzodiazepine use Z79.899 [place] [address] 91884- 0595 Mar, Flank pain R10.9 [place] [id number] [place] [address] 05384- 1087 Mar, [place] [address] 10713- 6953 Feb, Coronary artery disease involving [place] coronary artery of [place] heart without angina pectoris I25.10 ; Vitamin B 12 deficiency E53.8 ; Slow transit constipation K59.01 ; Generalized anxiety disorder F41.1 and Breast cancer screening by mammogram Z12.31 [place] [id number] [place] [address] 74914- 7180 Feb, Flank pain R10.9 [place] [id number] [place] [address] 35529- 3004 January, [place] [id number] [place] [address] 11389- 1719 January, Chronic obstructive pulmonary disease, unspecified COPD type J44.9 ; Pleural effusion on left J90 ; Pericardial effusion I31.3 and Generalized anxiety disorder F41.1 [place] [id number] [place] [address] 26430- 1804 January, Gastroenteritis K52.9 [place] [address] 43873- 2124 January, Flank pain R10.9 [facility] [address] [address] January, [facility] [address] [id number] [address] Dec [facility] [address] [address] 9619 Dec, [facility] [id number] [place] [address] 08403- 9616 Dec, [facility] [id number] [place] [address] 37691- 9251 Dec, [facility] [id number] [place] [address] 55431- 2796 Dec, [facility] [id number] [place] [address] 98675- 6469 Dec, Flank pain R10.9 [facility] [id number] [place] [address] 89732- 5926 Dec, [facility] [id number] [place] [address] 91124- 7771 Nov, [facility] [address] [address] 4230 Nov, [facility] [id number] [place] [address] 08755- 1359 Nov, [facility] [address] [address] 3[address] 14 Nov, 2017 Pericardial effusion I31.3 ; Agoraphobia with panic attacks F40.01 and Vitamin B 12 deficiency E53.8 [facility] [id number] [address] 7747 Nov, [facility] [address] [address] 4843 Nov, Pneumonia of both lungs due to infectious organism, unspecified part of lung J18.9 and Flank pain R10.9 [facility] [id number] [place] [address] 60084- 9303 Nov, Pneumonia of both lungs due to infectious organism, unspecified part of lung J18.9 and Gastroenteritis K52.9 [facility] [id number] [place] [address] 97499- 5866 Oct, Pneumonia of both lungs due to infectious organism, unspecified part of lung J18.9 and Vitamin B 12 deficiency E53.8 [facility] [place] [address] [id number] Oct, [facility] [address] 09248- 1636 Oct, [facility] [id number] [place] [address] 74491- 4723 Oct, [facility] [id number] [place] [address] 41520- 5981 Oct, Flank pain R10.9 [facility] [address] 89078- 7617 Oct, Other chronic pain G89.29 and Unspecified abdominal pain R10.9 [facility] [id number] [place] [address] 55301- 9963 Sep, Flank pain R10.9 [facility] [id number] [place] [address] 00577- 6383 Sep, [facility] [id number] [place] [address] 45227- 1740 Sep, [facility] [address] 79170- 2331 Sep, Acute non-recurrent maxillary sinusitis J01.00 [facility] [id number] [place] [address] 10460- 5292 Sep, Acute non-recurrent maxillary sinusitis J01.00 and Vitamin B 12 deficiency E53.8 [place] [id number] [place] [address] 86550- 4179 Sep, [facility] [id number] [place] [address] 60956- 8299 Sep, [place] [id number] [place] [address] 41729- 8057 Sep, [place] [address] 70557- 7563 Sep, COPD with exacerbation J44.1 [place] [address] 58014- 0876 Sep, Chronic obstructive pulmonary disease, unspecified COPD type J44.9 [place] [id number] [place] [address] 87046- 3668 Aug, Flank pain R10.9 [place] [address] 02736- 3411 Jul, Flank pain R10.9 and Vitamin B 12 deficiency E53.8 [place] [id number] [place] [address] 36076- 9862 Jul, [place] [id number] [place] [address] 92408- 0615 Jun, Gastroenteritis K52.9 [place] [id number] [place] [address] 78072- 8691 May, Gastroenteritis K52.9 and Vitamin B 12 deficiency E53.8 [place] [id number] [place] [address] 70706- 2971 Apr, Allergic conjunctivitis of left eye H10.12 and Chronic fatigue R53.82 [place] [id number] [place] [address] 38219- 7941 Apr, Chronic sinusitis, unspecified J32.9 [place] [id number] [place] [address] 41796- 1056 Apr, [facility] [id number] [place] [address] 37159- 1059 Feb, [facility] [id number] [place] [address] 78311- 4565 January, [facility] [address] 05920- 6316 Dec, [facility] [address] 45389- 6118 Oct, [facility] [address] 84501- 6221 Sep, Oral phase dysphagia R13.11 and Vitamin B 12 deficiency E53.8 [facility] [id number] [place] [address] 12802- 5439 Sep, [facility] [id number] [place] [address] 34258- 0004 Jul, [facility] [id number] [place] [address] 32373- 5129 Jul, [facility] [id number] [place] [address] 94001- 1548 Jun, Bronchitis J40 ; Generalized anxiety disorder F41.1 and Chronic obstructive pulmonary disease, unspecified COPD type J44.9 [facility] [id number] [place] [address] 22756- 2140 Jun, [facility] [id number] [place] [address] 10049- 9300 Jun, [facility] [id number] [place] [address] 62393- 9426 Jun, [facility] [id number] [place] [address] 08980- 8189 15 May, 2016 Vitamin B 12 deficiency E53.8 ; Essential (primary) hypertension I10 ; Generalized anxiety disorder F41.1 ; Pain in joint, ankle and foot 719.47 ; Arthritis M19.90 ; Chronic obstructive pulmonary disease, unspecified COPD type J44.9 and Encounter for immunization Z23 [facility] [id number] [place] [address] 23195- 9416 Apr, [facility] [address] 81161- 3758 Apr, [facility] [address] 40283- 8677 Mar, [facility] [address] 63265- 6412 January, [facility] [address] 00037- 3570 Dec, [facility] [id number] [place] [address] 39016- 9758 Oct, [facility] [id number] [place] [address] 69124- 4911 Oct, [facility] [id number] [place] [address] 99952- 0527 Oct, Hypertension, benign I10 and Vitamin B 12 deficiency E53.8 [facility] [id number] [place] [address] 35154- 0101 Oct, [facility] [id number] [place] [address] 82203- 2826 Oct, [facility] [id number] [place] [address] 12576- 8045 Oct, Irritable bowel syndrome with diarrhea K58.0 [place] [address] 21272- 6197 Oct, [facility] [id number] [place] [address] 48024- 2637 Oct, Vitamin B 12 deficiency E53.8 ; Hypertension, benign I10 and Chronic obstructive pulmonary disease, unspecified COPD type J44.9 [place] [id number] [place] [address] 29949- 1537 Sep, Irritable bowel syndrome with diarrhea K58.0 ; Hypertension , benign I10 ; Chronic obstructive pulmonary disease, unspecified COPD type J44.9 ; Edema, unspecified type R60.9 ; Vision changes H53.9 and Vitamin B 12 deficiency E53.8 [place] [address] 28653- 7616 Sep, [place] [id number] [place] [address] 31901- 3400 Jul, Degenerative disc disease 722.[address] 98887- 1587 Jun, Pain in right leg M79.604 ; Encounter for immunization Z23 and Pain of left leg M79.605 [address] [id number] [place] [address] 00565- 3850 Jun, [place] [id number] [place] [address] 30483- 5062 Jun, [id number] [place] [address] 25417- 3182 Jun, Degenerative disc disease 722.6 [place] [id number] [place] [address] 57571- 1962 Jun, [place] [id number] [place] [address] 07952- 3795 28 May, 2015 Seizures 780.39 and Autonomic peripheral neuropathy 337.[address] 68138- 5937 18 May, 2015 [id number] [place] [address] 13704- 8721 17 May, [address] 92611- 8722 May, Degenerative disc disease 722.6 [facility] [address] [address]- 1584 May, [facility] [id number] [place] [address] 68841- 7378 Mar, [facility] [id number] [place] [address] 71891- 7576 Mar, Degenerative disc disease 722.6 ; Spinal stenosis 724.00 and HTN (hypertension) 401.9 [facility] [address] [place] [address] 739400- 1013 Feb, Cutaneous horn 702.8 [facility] [id number] [place] [address] 361636- 4785 Feb, Fatigue 780.79 [facility] [id number] [place] [address] 16788- 8129 Feb, Fatigue 780.79 ; Arthritis 716.90 ; Spinal stenosis 724.00 ; Sinusitis 473.9 and Cutaneous horn 702.8 [facility] [address] [place] [address] 50512- 1830 January, [facility] [address] [place] [address] 59197- 0945 Dec, [facility] [address] [address]- 4714 Dec, [facility] [id number] [place] [address] 10535- 8668 Nov, [facility] [address] [place] [address] 571753- 5055 Nov, [facility] [id number] [place] [address] 032279- 8506 Oct, [facility] [address]95 Oct, [facility] [place] [facility] [address] [id number] [place] [address]- 3311 Oct, [facility] [place] [facility] [address] [id number] [place] [address]- 6322 Oct, [facility] [place] [facility] [address] [id number] [place] [address]- 5221 Oct, [facility] [place] [facility] [address] [id number] [place] [address]- 4657 Oct, [facility] [place] [facility] [address] [id number] [place] [address]- 4613 Sep, [facility] [place] [facility] [address] [id number] [place] [address]- 2088 Sep, [facility] [place] [facility] [address] [id number] [place] [address]- 3191 Sep, [facility] [place] [facility] [address] [id number] [place] [address]- 9230 Sep, [facility] [place] [facility] [address] [id number] [place] [address]- 3375 Sep, [facility] [place] [facility] [address] [id number] [place] [address]- 0255 Sep, [facility] [place] [facility] [address] [id number] [place] [address]- 3920 Sep, [facility] [place] [facility] [address] [id number] [place] [address]- 9254 Sep, [facility] [place] [facility] [address] [id number] [place] [address]- 4312 Sep, [facility] [place] [facility] [address] [id number] [place] [address]- 5644 Sep, [facility] [place] [facility] [address] [id number] [place] [address]- 4564 Sep, [facility] [place] [facility] [address] [id number] [place] [address]- 0219 Sep, [facility] [place] [facility] [address] [id number] [place] [address]- 6298 Sep, [facility] [place] [facility] [address] [id number] [place] [address]- 1669 Sep, [facility] [place] [facility] [address] [id number] [place] [address]- 0063 Aug, [facility] [place] [facility] [address] [id number] [place] [address]- 9197 Aug, [facility] [place] [facility] [address] [id number] [place] [address]- 8538 Aug, [facility] [place] [facility] [address] [id number] [place] [address]- 5965 Aug, [facility] [place] [facility] [address] [id number] [place] [address]- 7270 Jul, [facility] [place] [facility] [address] [id number] [place] [address]- 9900 Jul, [facility] [place] [facility] [address] [id number] [place] [address]- 7818 May, [facility] [place] [facility] [address] [id number] [place] [address]- 4045 May, [facility] [place] [facility] [address] [id number] [place] [address]- 0618 May, [facility] [place] [facility] [address] [id number] [place] [address]- 5962 May, [facility] [place] [facility] [address] [id number] [place] [address]- 5516 May, [facility] [place] [facility] [address] [id number] [place] [address]- 4245 May, [facility] [place] [facility] [address] [id number] [place] [address]- 7201 Apr, [facility] [place] [facility] [address] [id number] [place] [address]- 2741 Apr, [facility] [place] [facility] [address] [id number] [place] [address]- 3062 Mar, [facility] [place] [facility] [address] [id number] [place] [address]- 6303 Mar, [facility] [place] [facility] [address] [id number] [place] [address]- 1752 Mar, [facility] [place] [facility] [address] [id number] [place] [address]- 3892 Mar, [facility] [place] [facility] [address] [id number] [place] [address]- 8638 Mar, [facility] [place] [facility] [address] [id number] [place] [address]- 3429 Mar, [facility] [place] [facility] [address] [id number] [place] [address]- 4451 Mar, [facility] [place] [facility] [address] [id number] [place] [address]- 9358 Mar, [facility] [place] [facility] [address] [id number] [place] [address]- 2087 Feb, [facility] [place] [facility] [address] [id number] [place] [address]- 3773 Feb, [facility] [place] [facility] [address] [id number] [place] [address]- 2555 January, [facility] [place] [facility] [address] [id number] [place] [address]- 7492 January, [facility] [place] [facility] [address] [id number] [place] [address]- 1843 January, [facility] [place] [facility] [address] [id number] [place] [address]- 9186 January, [facility] [place] [facility] [address] [id number] [place] [address]- 6521 Dec, [facility] [address] [id number] [place] [address]- 5940 Dec, [facility] [place] [facility] [address] [id number] [place] [address]- 7586 Oct, [facility] [address] [id number] [place] [address]- 7976 Oct, [facility] [place] [facility] [address] [id number] [place] [address]- 9776 Oct, [facility] [address] [id number] [place] [address]- 9886 Oct, [facility] [address] [id number] [place] [address]- 4181 Sep, [facility] [address] [id number] [place] [address]- 3869 Sep, [facility] [address] [id number] [place] [address]- 5425 Aug, [facility] [address] [id number] [place] [address]- 1086 Aug, [facility] [place] [facility] [address] [id number] [place] [address]- 9776 Aug, [facility] [place] [facility] [address] [id number], [place] [address]- 8237 Aug, [facility] [place] [facility] [address] [id number], [place] [address]- 5639 Aug, [facility] [place] [facility] [address] [id number] [place] [address]- 5268 Aug, [facility] [place] [facility] [address] [id number] [place] [address]- 2681 Aug, [facility] [place] [facility] [address] [id number] [place] [address]- 4176 Aug, [facility] [place] [facility] [address] [id number] [place] [address]- 1986 Aug, [facility] [address] [id number] [place] [address] Aug, [facility] [place] [facility] [address] [id number] [place] [address] Jul, [facility] [place] [facility] [address] [id number] [place] [address] Jul, [facility] [place] [facility] [address] [id number] [place] [address] Jun, [facility] [place] [facility] [address] [id number] [place] [address] Jun, [facility] [place] [facility] [address] [id number] [place] [address] Jun, [facility] [place] [facility] [address] [id number] [place] [address] Jun, [facility] [place] [facility] [address] [id number] [place] [address] Jun, [facility] [place] [facility] [address] [id number] [place] [address] 13 May, 2013 [facility] [place] [facility] [address] [id number] [place] [address]- [address] 13 May, 2013 [facility] [place] [facility] [address] [id number] [place] [address] 12 May, 2013 [facility] [place] [facility] [address] [id number] [place] [address] 06 May, 2013 [facility] [place] [facility] [address] [id number] [place] [address] 03 May, 2013 [facility] [place] [facility] [address] [id number] [place] [address]- [address] Apr, [facility] [place] [facility] [address] [id number] [place] [address]- [address] Mar, [facility] [place] [facility] [address] [id number] [place] [address] 15 Mar, 2013 [facility] [address] [id number] [place] [address] Mar, [facility] [place] [facility] [address] [id number] [place] [address] Mar, [facility] [address] [id number] [place] [address] Mar, [facility] [address] [id number] [place] [address] Mar, [facility] [place] [facility] [address] [id number] [place] [address] Mar, [facility] [address] [id number] [place] [address] Mar, [facility] [address] [id number] [place] [address]- [address] Mar, [facility] [address] [id number] [place] [address] Feb, [facility] [place] [facility] [address] [id number] [place] [address] Feb, [facility] [place] [facility] [address] [id number] [place] [address] Feb, [facility] [place] [facility] [address] [id number] [place] [address] January, [facility] [place] [facility] [address] [id number] [place] [address] January, [facility] [place] [facility] [address] [id number] [place] [address]- [address] January, [facility] [place] [facility] [address] [id number] [place] [address] January, [facility] [place] [facility] [address] [id number] [place] [address] 18 Dec, 2012 [facility] [address] [id number] [place] [address] 17 Dec, 2012 [facility] [place] [facility] [address] [id number] [place] [address]- [address] Dec, [facility] [place] [facility] [address] [id number] [place] [address] Dec, [facility] [place] [facility] [address] [id number] [place] [address]- [address] Dec, [facility] [address] [id number] [place] [address] Dec, [facility] [address] [id number] [place] [address] Nov, [facility] [address] [id number] [place] [address] Oct, [facility] [place] [facility] [address] [id number] [place] [address] Aug, [facility] [address] [id number] [place] [address]- [address] Aug, [facility] [place] [facility] [address] [id number] [place] [address]- [address] Aug, [facility] [address] [id number] [place] [address] Aug, [facility] [place] [facility] [address] [id number] [place] [address]- [address] Aug, [facility] [place] [facility] [address] [id number] [place] [address] Aug, [facility] [facility] [address] [id number] [place] [address] Aug, [facility] [place] [facility] [address] [id number] [place] [address] Aug, [facility] [place] [facility] [address] [id number] [place] [address] Aug, [facility] [place] [facility] [address] [id number] [place] [address] Aug, [facility] [place] [facility] [address] [id number] [place] [address] Aug, [facility] [place] [facility] [address] [id number] [place] [address] Jul, [facility] [place] [facility] [address] [id number] [place] [address] Jul, [facility] [place] [facility] [address] [id number] [place] [address] Jul, [facility] [place] [facility] [address] [id number] [place] [address] Jul, [facility] [place] [facility] [address] [id number] [place] [address] Jul, [facility] [place] [facility] [address] [id number] [place] [address] Jul, [facility] [place] [facility] [address] [id number] [place] [address] Jun, [facility] [place] [facility] [address] [id number] [place] [address] Jun, [facility] [place] [facility] [address] [id number] [place] [address] May, [facility] [place] [facility] [address] [id number] [place] [address] Apr, [facility] [place] [facility] [address] [id number] [place] [address] Apr, [facility] [place] [facility] [address] [id number] [place] [address] Apr, [facility] [place] [facility] [address] [id number] [place] [address] Apr, [facility] [address] [id number] [place] [address] Apr, [facility] [address] [id number] [place] [address] Mar, [facility] [place] [facility] [address] [id number] [place] [address] Mar, [facility] [place] [facility] [address] [id number] [place] [address] January, [facility] [facility] [address] [id number] [place] [address] January, [facility] [place] [facility] [address] [id number] [place] [address] Nov, [facility] [place] [facility] [address] [id number] [place] [address] Oct, [facility] [place] [facility] [address] [id number] [place] [address] Sep, [facility] [place] [facility] [address] [id number] [place] [address] Sep, [facility] [place] [facility] [address] [id number] [place] [address] Sep, [facility] [place] [facility] [address] [id number] [place] [address] Sep, [facility] [place] [facility] [address] [id number] [place] [address] Sep, [facility] [place] [facility] [address] [id number] [place] [address] Sep, [facility] [place] [facility] [address] [id number] [place] [address] Aug, [facility] [place] [facility] [address] [id number] [place] [address] Aug, [facility] [address] [id number] [place] [address] Aug, [facility] [address] [id number] [place] [address] Aug, [facility] [address] [id number] [place] [address] 110[address] Aug, [facility] [address] [id number] [place] [address] Jul, [facility] [address] [id number] [place] [address] Jul, [facility] [place] [facility] [address] [id number] [place] [address] Jul, [facility] [place] [facility] [address] [id number] [place] [address] Jun, [facility] [address] [id number] [place] [address] Jun, [facility] [address] [id number] [place] [address] Jun, [facility] [address] [id number] [place] [address] January, [facility] [address] [id number] [place] [address] Dec, [facility] [address] [id number] [place] [address] Oct, [facility] [address] [id number][place] [address] Oct, [facility] [address] [id number] [place] [address] Jun, [facility] [address] [id number], [place] [address] Aug, [facility] [address] [id number], [place] [address] Aug, [facility] [address] [facility] [id number] [place] [id number] Jul, [facility] [address] [facility] [id number][place] [id number] Mar, IMMUNIZATIONS No Known Immunizations SOCIAL HISTORY Never Assessed REASON FOR VISIT Controlled Med Refill PLAN OF CARE VITAL SIGNS MEDICATIONS Medication Instructions Dosage Frequency Start Date End Date Duration Status Xanax 0.5 MG Orally 3 times a day as needed 1 tablet Nov, 28 days Active RESULTS No Results PROCEDURES No Known procedures INSTRUCTIONS MEDICATIONS ADMINISTERED No Known Medications MEDICAL (GENERAL) HISTORY Type Description Date Medical History Hypertension Medical History Chronic Obstructive pulmonary disease diagnosed 2008 in [place]-PFT not done previously Medical History Gastrointestinal [...]
--- OUTSIDE RECORDS SUMMARY | 2018-08-21 15:30 | XMS REPORT ---
Author Author KAITLIN TURNER Organization [facility] Address [address] 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 Active 0347610722966 Problem Agoraphobia with panic attacks F40.01 Active 469960199 Problem COPD with exacerbation J44.1 Active 795621871 Problem Pericardial effusion I31.3 Active 698736198 Problem Pleural effusion on left J90 Active 25959094 Problem Generalized anxiety disorder F41.1 Active 46083930 Problem Chronic obstructive pulmonary disease, unspecified COPD type J44.9 Active 16306946 Problem Hypertension, benign I10 Active 41808359 Problem Oral phase dysphagia R13.11 Active 472990012 Problem Vitamin B 12 deficiency E53.8 Active 82577365 Problem Chronic fatigue R53.82 Active 87073549 ALLERGIES No Information ENCOUNTERS Encounter Location Date Diagnosis [facility] [id number] [address] May, [facility] [id number] [address] Apr, Flank pain R10.9 [facility] [id number] [address] Apr, Generalized anxiety disorder F41.1 [facility] [id number] [address] Apr, Generalized anxiety disorder F41.1 [facility] [id number] [address] Apr, Flank pain R10.9 and Chronic prescription benzodiazepine use Z79.899 [facility] [id number] [address] Mar, Flank pain R10.9 [facility] [id number] [place] [address] 31579- 1742 Mar, [facility] [id number] [address] Feb, Coronary artery disease involving north fork coronary artery of north fork heart without angina pectoris I25.10 ; Vitamin B 12 deficiency E53.8 ; Slow transit constipation K59.01 ; Generalized anxiety disorder F41.1 and Breast cancer screening by mammogram Z12.31 [place] [id number] [address] Feb, Flank pain R10.9 [facility] [id number] [address] 47[address] January, [place] [id number] [address] January, Chronic obstructive pulmonary disease, unspecified COPD type J44.9 ; Pleural effusion on left J90 ; Pericardial effusion I31.3 and Generalized anxiety disorder F41.1 [place] [id number] [address] January, Gastroenteritis K52.9 [facility] [id number] [address] 8625 January, Flank pain R10.9 [facility] [id number] [address] 265[address] January, [facility] [address] [id number] [place] [address] Dec [facility] [id number] [address] 9[address] 16 Dec, 2017 [facility] [id number] [address] 2734 Dec, [facility] [id number] [address] 9020 Dec, [facility] [id number] [place] [address] 00117- 7365 Dec, [facility] [id number] [place] [address] 43875- 3836 Dec, Flank pain R10.9 [facility] [id number] [place] [address] 85887- 9073 Dec, [facility] [id number] [place] [address] 78188- 7008 Nov, [facility] [id number] [place] [address] 12772- 0070 Nov, [facility] [id number] [place] [address] 99175- 8199 Nov, [facility] [id number] [place] [address] 49818- 9063 Nov, Pericardial effusion I31.3 ; Agoraphobia with panic attacks F40.01 and Vitamin B 12 deficiency E53.8 [facility] [id number] [address] 6216 Nov, [facility] [id number] [address] 34[address] Nov, Pneumonia of both lungs due to infectious organism, unspecified part of lung J18.9 and Flank pain R10.9 [facility] [id number] [address] 8664 Nov, Pneumonia of both lungs due to infectious organism, unspecified part of lung J18.9 and Gastroenteritis K52.9 [facility] [id number] [place] [address] 58101- 4549 Oct, Pneumonia of both lungs due to infectious organism, unspecified part of lung J18.9 and Vitamin B 12 deficiency E53.8 [facility] [id number] [place] [address] [id number] Oct, [facility] [id number] [place] [address] 76351- 4164 Oct, [facility] [id number] [place] [address] 30337- 5807 Oct, [facility] [id number] [place] [address] 94284- 0350 Oct, Flank pain R10.9 [facility] [id number] [place] [address] 65779- 0767 Oct, Other chronic pain G89.29 and Unspecified abdominal pain R10.9 [facility] [id number] [place] [address] 81333- 5643 Sep, Flank pain R10.9 [facility] [id number] [place] [address] 57241- 0849 Sep, [facility] [id number] [place] [address] 93585- 6221 Sep, [facility] [id number] [place] [address] 79086- 2675 Sep, Acute non-recurrent maxillary sinusitis J01.00 [facility] [address] [place] [address] 05632- 6810 Sep, Acute non-recurrent maxillary sinusitis J01.00 and Vitamin B 12 deficiency E53.8 [facility] [address] [place] [address] 74519- 7822 Sep, [facility] [id number] [place] [address] 43358- 4848 Sep, [facility] [address] 80187- 1017 Sep, [place] [address] 35632- 1118 Sep, COPD with exacerbation J44.1 [place] [address] 87838- 2564 Sep, Chronic obstructive pulmonary disease, unspecified COPD type J44.9 [place] [address] 59376- 0757 Aug, Flank pain R10.9 [place] [address] 68069- 7851 Jul, Flank pain R10.9 and Vitamin B 12 deficiency E53.8 [place] [address] 65281- 3371 Jul, [place] [address] 40234- 0125 Jun, Gastroenteritis K52.9 [place] [address] 73708- 3279 May, Gastroenteritis K52.9 and Vitamin B 12 deficiency E53.8 [place] [id number] [place] [address] 82993- 1953 Apr, Allergic conjunctivitis of left eye H10.12 and Chronic fatigue R53.82 [place] [id number] [place] [address] 24682- 8437 Apr, Chronic sinusitis, unspecified J32.9 [place] [address] 19460- 7154 Apr, [place] [address] 23252- 3351 Feb, [place] [address] 59001- 1480 January, [place] [id number] [place] [address] 50035- 6289 Dec, [place] [id number] [place] [address] 22111- 2015 Oct, [facility] [id number] [place] [address] 69173- 1484 Sep, Oral phase dysphagia R13.11 and Vitamin B 12 deficiency E53.8 [place] [address] 34193- 5294 Sep, [place] [id number] [place] [address] 14775- 8279 Jul, [place] [address] 46815- 3582 Jul, [place] [address] 95365- 1715 Jun, Bronchitis J40 ; Generalized anxiety disorder F41.1 and Chronic obstructive pulmonary disease, unspecified COPD type J44.9 [place] [id number] [place] [address] 92156- 7372 Jun, [place] [id number] [place] [address] 20416- 9867 Jun, [place] [id number] [place] [address] 88309- 4863 Jun, [place] [id number] [place] [address] 99922- 3940 May, Vitamin B 12 deficiency E53.8 ; Essential (primary) hypertension I10 ; Generalized anxiety disorder F41.1 ; Pain in joint, ankle and foot 719.47 ; Arthritis M19.90 ; Chronic obstructive pulmonary disease, unspecified COPD type J44.9 and Encounter for immunization Z23 [place] [id number] [place] [address] 06730- 6491 Apr, [place] [id number] [place] [address] 86696- 7008 Apr, [facility] [id number] [address]- 7556 Mar, [facility] [id number] [place] [address] 22039- 3708 January, [facility] [id number] [address] Dec, [facility] [id number] [place] [address] 06585- 2487 Oct, [facility] [id number] [place] [address] 57622- 2902 Oct, [facility] [address] [place] [address] 94625- 5333 Oct, Hypertension, benign I10 and Vitamin B 12 deficiency E53.8 [facility] [id number] [address]- 9594 Oct, [facility] [id number] [address]- 5739 Oct, [facility] [id number] [address]- 9364 Oct, Irritable bowel syndrome with diarrhea K58.0 [place] [id number] [address]- 0395 Oct, [facility] [id number] [address]- 1021 Oct, Vitamin B 12 deficiency E53.8 ; Hypertension, benign I10 and Chronic obstructive pulmonary disease, unspecified COPD type J44.9 [facility] [address] [address]- 8493 Sep, Irritable bowel syndrome with diarrhea K58.0 ; Hypertension , benign I10 ; Chronic obstructive pulmonary disease, unspecified COPD type J44.9 ; Edema, unspecified type R60.9 ; Vision changes H53.9 and Vitamin B 12 deficiency E53.8 [facility] [id number] [place] [address] 31545- 6188 Sep, [facility] [id number] [place] [address] 07380- 5050 Jul, Degenerative disc disease 722.6 [facility] [address] 09555- 9680 Jun, Pain in right leg M79.604 ; Encounter for immunization Z23 and Pain of left leg M79.605 [facility] [id number] [place] [address] 01662- 1626 Jun, [facility] [address] 99913- 1336 Jun, [facility] [id number] [place] [address] 54212- 9414 Jun, Degenerative disc disease 722.6 [facility] [id number] [place] [address] 15234- 5819 Jun, [facility] [id number] [place] [address] 01073- 3549 May, Seizures 780.39 and Autonomic peripheral neuropathy 337.9 [facility] [id number] [place] [address] 92578- 1122 18 May, 2015 [facility] [id number] [place] [address] 76198 2545 17 May, 2015 [facility] [id number] [place] [address] 76546- 2542 08 May, 2015 Degenerative disc disease 722.6 [facility] [id number] [place] [address] 18568- 2546 08 May, 2015 [facility] [id number] [place] [address] 48488- 4912 Mar, [facility] [address] [place] [address]- 0703 Mar, Degenerative disc disease 722.6 ; Spinal stenosis 724.00 and HTN (hypertension) 401.9 [facility] [id number] [place] [address] 31204- 1870 Feb, Cutaneous horn 702.8 [facility] [id number] [place] [address] 28438- 1370 Feb, Fatigue 780.79 [facility] [id number] [place] [address] 15152 2545 Feb, Fatigue 780.79 ; Arthritis 716.90 ; Spinal stenosis 724.00 ; Sinusitis 473.9 and Cutaneous horn 702.8 [facility] [id number] [place] [address] 20979- 2052 January, [facility] [id number] [place] [address] 52054- 0444 Dec, [facility] [id number] [place] [address] 44417- 2829 Dec, [facility] [id number] [place] [address] 09251- 5991 Nov, [facility] [id number] [place] [address] 00971- 1191 Nov, [facility] [id number] [place] [address] 83116- 4661 Oct, [facility] [id number] [place] [address] 89879- 2546 Oct, [facility] [id number] [place] [address] 96386- 3211 Oct, [facility] [id number] [place] [address] 527109- 7888 Oct, [facility] [id number] [place] [address] 49176- 0906 Oct, [facility] [place] [facility] [address] [id number] [place] [address]- 5751 Oct, [facility] [place] [facility] [address] [id number] [place] [address]- 3950 Sep, [facility] [place] [facility] [address] [id number] [place] [address]- 7534 Sep, [facility] [place] [facility] [address] [id number] [place] [address]- 9774 Sep, [facility] [place] [facility] [address] [id number] [place] [address]- 0076 Sep, [facility] [place] [facility] [address] [id number] [place] [address]- 6260 Sep, [facility] [place] [facility] [address] [id number] [place] [address]- 2899 Sep, [facility] [place] [facility] [address] [id number] [place] [address]- 7194 Sep, [facility] [place] [facility] [address] [id number] [place] [address]- 3935 Sep, [facility] [place] [facility] [address] [id number] [address]- 3338 Sep, [facility] [place] [facility] [address] [id number] [address]- 1022 Sep, [facility] [place] [facility] [address] [id number] [place] [address]- 2902 Sep, [facility] [place] [facility] [address] [id number] [address]- 2020 Sep, [facility] [place] [facility] [address] [id number] [place] [address]- 7643 Sep, [facility] [place] [facility] [address] [id number] [place] [address]- 5130 Sep, [facility] [place] [facility] [address] [id number] [place] [address]- 0753 Aug, [facility] [place] [facility] [address] [id number] [place] [address]- 2937 Aug, [facility] [place] [facility] [address] [id number] [place] [address]- 5722 Aug, [facility] [place] [facility] [address] [id number] [place] [address]- 7195 Aug, [facility] [place] [facility] [address] [id number] [place] [address]- 5560 Jul, [facility] [place] [facility] [address] [id number] [place] [address]- 8924 Jul, [facility] [place] [facility] [address] [id number] [place] [address]- 8975 May, [facility] [place] [facility] [address] [id number] [place] [address]- 5946 May, [facility] [place] [facility] [address] [id number] [place] [address]- 9099 May, [facility] [place] [facility] [address] [id number] [place] [address]- 8793 May, [facility] [place] [facility] [address] [id number] [place] [address]- 4112 May, [facility] [place] [facility] [address] [id number] [place] [address]- 8787 May, [facility] [place] [facility] [address] [id number] [place] [address]- 2972 Apr, [facility] [place] [facility] [address] [id number] [place] [address]- 0784 Apr, [facility] [place] [facility] [address] [id number] [place] 7941 Mar, [facility] [place] [facility] [address] [id number] [place] 5121 Mar, [facility] [place] [facility] [address] [id number] [place] [address]- 3106 Mar, [facility] [place] [facility] [address] [id number] [place] [address]- 5989 Mar, [facility] [place] [facility] [address] [id number] [place] [address]- 2666 Mar, [facility] [place] [facility] [address] [id number] [place] [address]- 6168 Mar, [facility] [place] [facility] [address] [id number] [place] [address]- 5622 Mar, [facility] [place] [facility] [address] [id number] [place] [address]- 8002 Mar, [facility] [place] [facility] [address] [id number] [place] [address]- 2788 Feb, [facility] [place] [facility] [address] [id number] [place] [address]- 7276 Feb, [facility] [place] [facility] [address] [id number] [place] [address]- 8058 January, [facility] [place] [facility] [address] [id number] [place] [address]- 6466 January, [facility] [place] [facility] [address] [id number] [place] [address]- 5056 January, [facility] [place] [facility] [address] [id number] [place] [address]- 4659 January, [facility] [place] [facility] [address] [id number] [place] [address]- 5040 Dec, [facility] [place] [facility] [address] [id number] [place] [address]- 2394 Dec, [facility] [place] [facility] [address] [id number] [place] [address]- 5193 Oct, [facility] [place] [facility] [address] [id number] [place] [address]- 7391 Oct, [facility] [place] [facility] [address] [id number] [place] [address]- 6416 Oct, [facility] [place] [facility] [address] [id number] [place] [address]- 4856 Oct, [facility] [place] [facility] [address] [id number] [place] [address]- 5098 Sep, [facility] [place] [facility] [address] [id number] [place] [address]- 7168 Sep, [facility] [place] [facility] [address] [id number] [place] [address]- 3679 Aug, [facility] [place] [facility] [address] [id number] [place] [address]- 8822 Aug, [facility] [place] [facility] [address] [id number] [place] [address]- 1925 Aug, [facility] [place] [facility] [address] [id number] [place] [address]- 8096 Aug, [facility] [place] [facility] [address] [id number] [place] [address]- 1436 Aug, [facility] [place] [facility] [address] [id number] [place] [address]- 8963 Aug, [facility] [place] [facility] [address] [id number] [place] [address]- 3031 Aug, [facility] [place] [facility] [address] [id number] [place] [address]- 2743 Aug, [facility] [place] [facility] [address] [id number] [place] 9519 Aug, [facility] [place] [facility] [address] [id number] [place] 8749 Aug, [facility] [place] [facility] [address] [id number] [place] 1608 Jul, [facility] [place] [facility] [address] [id number] [place] [address] Jul, [facility] [address] [id number] [place] [address] Jun, [facility] [place] [facility] [address] [id number] [place] [address] Jun, [facility] [address] [id number] [place] [address] Jun, [facility] [place] [facility] [address] [id number] [place] [address] Jun, [facility] [address] [id number] [place] [address] Jun, [facility] [place] [facility] [address] [id number] [place] [address] May, [facility] [place] [facility] [address] [id number] [place] [address] 13 May, 2013 [facility] [address] [id number] [place] [address] 12 May, 2013 [facility] [place] [facility] [address] [id number] [place] [address] 06 May, 2013 [facility] [address] [id number] [place] [address]- [address] 03 May, 2013 [facility] [place] [facility] [address] [id number] [place] [address] Apr, [facility] [place] [facility] [address] [id number] [place] [address] Mar, [facility] [place] [facility] [address] [id number] [place] [address]105 Mar, [facility] [place] [facility] [address] [id number] [place] [address]- 67[address] Mar, [facility] [place] [facility] [address] [id number] [place] [address]- [address] Mar, [facility] [address] [id number] [place] [address] Mar, [facility] [place] [facility] [address] [id number] [place] [address]- 4716 Mar, [facility] [address] [id number] [place] [address]- 97[address] Mar, [facility] [place] [facility] [address] [id number] [place] [address]- [address] Mar, [facility] [address] [id number] [place] [address]- [address]331 Mar, [facility] [place] [facility] [address] [id number] [place] [address]- 97[address] Feb, [facility] [place] [facility] [address] [id number] [place] [address]- [address] Feb, [facility] [address] [id number] [place] [address]- 9583 Feb, [facility] [place] [facility] [address] [id number] [place] [address]- [address] January, [facility] [place] [facility] [address] [id number] [place] [address]- [address] January, [facility] [place] [facility] [address] [id number] [place] [address] 8[address] January, [facility] [place] [facility] [address] [id number] [address] January, [facility] [place] [facility] [address] [id number] [place] [address]- 8953 Dec, [facility] [place] [facility] [address] [id number] [place] [address]- [address] Dec, [facility] [place] [facility] [address] [id number] [place] [address] Dec, [facility] [place] [facility] [address] [id number] [place] [address]- [address] 10 Dec, 2012 [facility] [address] [id number] [place] [address] Dec, [facility] [address] [id number] [place] [address]- 0676 Dec, [facility] [address] [facility] [id number] [place] [address]- [address]26 Nov, [facility] [address] [id number] [place] [address]- 6[address] Oct, [facility] [address] [id number] [place] [address] Aug, [facility] [address] [id number] [place] [address] Aug, [facility] [address] [facility] [id number] [place] [address]- [address] Aug, [facility] [address] [id number] [place] [address] Aug, [facility] [address] [id number] [place] [address]- [address] Aug, [facility] [address] [facility] [id number] [place] [address]- [address] Aug, [facility] [address] [id number] [place] [address]- [address] Aug, [facility] [place] [facility] [address] [id number] [place] [address] Aug, [facility] [address] [id number] [place] [address] 06 Aug, 2012 [facility] [address] [id number] [place] [address] Aug, [facility] [address] [facility] [id number] [place] [address] Aug, [facility] [place] [facility] [address] [id number] [place] [address] Jul, [facility] [place] [facility] [address] [id number] [place] [address] Jul, [facility] [place] [facility] [address] [id number] [place] [address] Jul, [facility] [place] [facility] [address] [id number] [place] [address] Jul, [facility] [place] [facility] [address] [id number] [place] [address] Jul, [facility] [place] [facility] [address] [id number] [place] [address] Jul, [facility] [place] [facility] [address] [id number] [place] [address] Jun, [facility] [place] [facility] [address] [id number] [place] [address] Jun, [facility] [place] [facility] [address] [id number] [place] [address] May, [facility] [place] [facility] [address] [id number] [place] [address] Apr, [facility] [place] [facility] [address] [id number] [place] [address] Apr, [facility] [place] [facility] [address] [id number] [place] [address] Apr, [facility] [place] [facility] [address] [id number] [place] [address] Apr, [facility] [place] [facility] [address] [id number] [place] [address] Apr, [facility] [place] [facility] [address] [id number] [place] [address] Mar, [facility] [place] [facility] [address] [id number] [place] [address] Mar, [facility] [address] [id number] [place] [address] January, [facility] [place] [facility] [address] [id number] [place] [address] January, [facility] [place] [facility] [address] [id number] [place] [address] Nov, [facility] [place] [facility] [address] [id number] [place] [address] Oct, [facility] [place] [facility] [address] [id number] [place] [address] Sep, [facility] [place] [facility] [address] [id number] [place] [address] Sep, [facility] [place] [facility] [address] [id number] [place] [address] Sep, [facility] [place] [facility] [address] [id number] [place] [address] Sep, [facility] [place] [facility] [address] [id number] [place] [address] Sep, [facility] [place] [facility] [address] [id number] [place] [address] Sep, [facility] [place] [facility] [address] [id number] [place] [address] Aug, [facility] [place] [facility] [address] [id number] [place] [address] Aug, [facility] [place] [facility] [address] [id number] [place] [address] Aug, [facility] [place] [facility] [address] [id number] [place] [address] Aug, [facility] [place] [facility] [address] [id number] [place] [address] Aug, [facility] [place] [facility] [id number] [address] Jul, [facility] [address] [facility] [id number] [place] [address] Jul, [facility] [address] [facility] [id number] [place] [address] Jul, [facility] [id number] [address] Jun, [facility] [address] [facility] [id number] [place] [address] Jun, [facility] [id number] [place] [address] Jun, [facility] [id number] [address] January, [facility] [id number] [place] [address] Dec, [facility] [id number] [address] Oct, [facility] [id number] [address] Oct, [facility] [id number] [place] [address] [address] Jun, [facility] [id number] [address] Aug, [facility] [id number] [place] [address] Aug, [facility] [id number] [address] Jul, [facility] [id number] [place] [address] [address] Mar, IMMUNIZATIONS No Known Immunizations SOCIAL HISTORY Never Assessed REASON FOR VISIT Future Lab Order PLAN OF CARE VITAL SIGNS MEDICATIONS Unknown Medications RESULTS No Results PROCEDURES No Known procedures INSTRUCTIONS MEDICATIONS ADMINISTERED No Known Medications MEDICAL (GENERAL) HISTORY Type Description Date Medical History Hypertension Medical History Chronic Obstructive pulmonary disease diagnosed 2008 in [place]-PFT not done previously Medical History Gastrointestinal disorder [...]
--- OUTSIDE RECORDS SUMMARY | 2018-08-21 15:31 | XMS REPORT ---
Author Author KAITLIN TURNER Organization [facility] Address [address] [place] [address] Care Team Providers Care Home Theatre Technician Name Role Phone KAITLIN TURNER Unavailable PROBLEMS Type Condition ICD9-CM Code GHI38-AM Code Onset Dates Condition Status SNOMED Code Problem Chronic sinusitis, unspecified J32.9 Active 31846862 Problem Other chronic pain G89.29 Active 68495795 Problem Gastroesophageal reflux disease without esophagitis K21.9 Active 827147022 Problem Slow transit constipation K59.01 Active 36904411 Problem Coronary artery disease involving [place] coronary artery of [place] heart without angina pectoris I25.10 Active [id number] Problem Agoraphobia with panic attacks F40.01 Active 627525059 Problem COPD with exacerbation J44.1 Active 466207536 Problem Pericardial effusion I31.3 Active 033651442 Problem Pleural effusion on left J90 Active 93043532 Problem Generalized anxiety disorder F41.1 Active 02781391 Problem Chronic obstructive pulmonary disease, unspecified COPD type J44.9 Active 26494600 Problem Hypertension, benign I10 Active 95817311 Problem Oral phase dysphagia R13.11 Active 342923935 Problem Vitamin B 12 deficiency E53.8 Active 42558642 Problem Chronic fatigue R53.82 Active 84437110 ALLERGIES No Information ENCOUNTERS Encounter Location Date Diagnosis [facility] [id number], [place] [address] May, [facility] [id number], [place] [address] Apr, Flank pain R10.9 [facility] [id number], [place] [address] Apr, Generalized anxiety disorder F41.1 [facility] [id number] [address] 8922 Apr, Generalized anxiety disorder F41.1 [facility] [id number], [place] [address] 7692 Apr, Flank pain R10.9 and Chronic prescription benzodiazepine use Z79.899 [facility] [address], [place] [address] Mar, Flank pain R10.9 [facility] [id number] [place] [address] 01005- 4606 Mar, [facility] [address], [place] [address] 0[address] Feb, Coronary artery disease involving [place] coronary artery of [place] heart without angina pectoris I25.10 ; Vitamin B 12 deficiency E53.8 ; Slow transit constipation K59.01 ; Generalized anxiety disorder F41.1 and Breast cancer screening by mammogram Z12.31 [facility] [address], [place] [address] Feb, Flank pain R10.9 [facility] [address], [place] [address] January, [facility] [address], [place] [address] January, Chronic obstructive pulmonary disease, unspecified COPD type J44.9 ; Pleural effusion on left J90 ; Pericardial effusion I31.3 and Generalized anxiety disorder F41.1 [facility] [address], [place] [address] 12[address] January, Gastroenteritis K52.9 [facility] [id number], [place] [address] 8875 January, Flank pain R10.9 [facility] [id number], [place] [address] 8938 January, [facility]OD[facility]IG[facility] [id number] [place] [address] Dec [facility] [address], [place] [address] 9[address] 16 Dec, 2017 [facility] [address], [place] [address] 78[address] Dec, [facility] [address], [place] [address] 7833 Dec, [facility] [id number] [place] [address] 13506- 1120 Dec, [facility] [id number] [place] [address] 95015- 3844 Dec, Flank pain R10.9 [facility] [id number] [place] [address] 53435- 4572 Dec, [facility] [id number] [place] [address] 58203- 1384 Nov, [facility] [id number] [place] [address] 25386- 7797 Nov, [facility] [id number] [place] [address] 48156- 2234 Nov, [facility] [id number] [place] [address] 67909- 3202 Nov, Pericardial effusion I31.3 ; Agoraphobia with panic attacks F40.01 and Vitamin B 12 deficiency E53.8 [facility] [address], [place] [address] Nov, [facility] [address], [place] [address] Nov, Pneumonia of both lungs due to infectious organism, unspecified part of lung J18.9 and Flank pain R10.9 [facility] [address], [place] [address] 55[address] Nov, Pneumonia of both lungs due to infectious organism, unspecified part of lung J18.9 and Gastroenteritis K52.9 [facility] [id number] [place] [address] 03785- 0435 Oct, Pneumonia of both lungs due to infectious organism, unspecified part of lung J18.9 and Vitamin B 12 deficiency E53.8 [facility] [id number] [place] [address] [id number] Oct, [facility] [id number] [place] [address] 44616- 1605 Oct, [facility] [id number] [place] [address] 15609- 8822 Oct, [facility] [id number] [place] [address] 38651- 4803 Oct, Flank pain R10.9 [facility] [id number] [place] [address] 06255- 4456 Oct, Other chronic pain G89.29 and Unspecified abdominal pain R10.9 [facility] [id number] [place] [address] 11675- 8533 Sep, Flank pain R10.9 [facility] [id number] [place] [address] 49590- 1606 Sep, [facility] [id number] [place] [address] 18062- 8747 Sep, [facility] [address] [place] [address] 35597- 7565 Sep, Acute non-recurrent maxillary sinusitis J01.00 [facility] [address] [place] [address] 80879- 4487 Sep, Acute non-recurrent maxillary sinusitis J01.00 and Vitamin B 12 deficiency E53.8 [facility] [address] [place] [address] 32081- 7334 Sep, [facility] [id number] [place] [address] 00239- 4680 Sep, [facility] [address] [address]- 6540 Sep, [facility] [address] 62766- 1605 Sep, COPD with exacerbation J44.1 [facility] [address] 24006- 4018 Sep, Chronic obstructive pulmonary disease, unspecified COPD type J44.9 [facility] [address] 26640- 2136 Aug, Flank pain R10.9 [facility] [address] 90338- 1597 Jul, Flank pain R10.9 and Vitamin B 12 deficiency E53.8 [facility] [address] 74915- 9399 Jul, [facility] [address] 65227- 1602 Jun, Gastroenteritis K52.9 [facility] [address] 50327- 2799 May, Gastroenteritis K52.9 and Vitamin B 12 deficiency E53.8 [facility] [id number] [place] [address] 78669- 7215 Apr, Allergic conjunctivitis of left eye H10.12 and Chronic fatigue R53.82 [facility] [id number] [place] [address] 43627- 5120 Apr, Chronic sinusitis, unspecified J32.9 [facility] [address] 83426- 6964 Apr, [facility] [address] 83663- 3898 Feb, [facility] [address] 88685- 4831 January, [facility] [id number] [place] [address] 86140- 9956 Dec, [facility] [id number] [place] [address] 44802- 3940 Oct, [facility] [id number] [place] [address] 93158- 1555 Sep, Oral phase dysphagia R13.11 and Vitamin B 12 deficiency E53.8 [facility] [address] 52067- 4510 Sep, [facility] [id number] [place] [address] 14395- 7803 Jul, [facility] [address] 10198- 2980 Jul, [facility] [address] 66095- 5780 Jun, Bronchitis J40 ; Generalized anxiety disorder F41.1 and Chronic obstructive pulmonary disease, unspecified COPD type J44.9 [facility] [id number] [place] [address] 98060- 9937 Jun, [facility] [id number] [place] [address] 20418- 6942 Jun, [facility] [id number] [place] [address] 00159- 7275 Jun, [facility] [id number] [place] [address] 01341- 1532 May, Vitamin B 12 deficiency E53.8 ; Essential (primary) hypertension I10 ; Generalized anxiety disorder F41.1 ; Pain in joint, ankle and foot 719.47 ; Arthritis M19.90 ; Chronic obstructive pulmonary disease, unspecified COPD type J44.9 and Encounter for immunization Z23 [facility] [id number] [place] [address] 38187- 4754 Apr, [facility] [id number] [place] [address] 51027- 2265 Apr, [facility] [address], [place] [address]- 4951 Mar, [facility] [address] [place] [address] 65684- 7388 January, [facility] [address] [address] 0432 Dec, [facility] [address] [place] [address] 67045- 8236 Oct, [facility] [address] [place] [address] 18922- 4809 Oct, [facility] [address] [place] [address] 17276- 1261 Oct, Hypertension, benign I10 and Vitamin B 12 deficiency E53.8 [facility] [address], [place] [address]- 7000 Oct, [facility] [address], [place] [address]- 5855 Oct, [facility] [address], [place] [address]- 7121 Oct, Irritable bowel syndrome with diarrhea K58.0 [facility] [address], [place] [address]- 6107 Oct, [facility] [address], [place] [address]- 9100 Oct, Vitamin B 12 deficiency E53.8 ; Hypertension, benign I10 and Chronic obstructive pulmonary disease, unspecified COPD type J44.9 [facility] [address], [place] [address]- 9840 Sep, Irritable bowel syndrome with diarrhea K58.0 ; Hypertension , benign I10 ; Chronic obstructive pulmonary disease, unspecified COPD type J44.9 ; Edema, unspecified type R60.9 ; Vision changes H53.9 and Vitamin B 12 deficiency E53.8 [facility] [id number] [place] [address] 71590- 4977 Sep, [facility] [id number] [place] [address] 41992- 4593 Jul, Degenerative disc disease 722.6 [facility] [address] 67036- 1620 Jun, Pain in right leg M79.604 ; Encounter for immunization Z23 and Pain of left leg M79.605 [facility] [id number] [place] [address] 10592- 1566 Jun, [facility] [address] 59323- 2876 Jun, [facility] [id number] [place] [address] 62868- 6207 Jun, Degenerative disc disease 722.6 [facility] [id number] [place] [address] 29800- 4694 Jun, [facility] [id number] [place] [address] 98649- 9217 May, Seizures 780.39 and Autonomic peripheral neuropathy 337.9 [facility] [id number] [place] [address] 10217- 0433 18 May, 2015 [facility] [id number] [place] [address] 38745 2547 17 May, 2015 [facility] [id number] [place] [address] 08758- 2547 08 May, 2015 Degenerative disc disease 722.6 [facility] [id number] [place] [address] 35516- 2546 08 May, 2015 [facility] [id number] [place] [address] 01948- 3726 Mar, [facility] [address] [place] [address]- 5200 Mar, Degenerative disc disease 722.6 ; Spinal stenosis 724.00 and HTN (hypertension) 401.9 [facility] [id number] [place] [address] 80194- 0695 Feb, Cutaneous horn 702.8 [facility] [id number] [place] [address] 31399- 5361 Feb, Fatigue 780.79 [facility] [id number] [place] [address] 81493 2548 Feb, Fatigue 780.79 ; Arthritis 716.90 ; Spinal stenosis 724.00 ; Sinusitis 473.9 and Cutaneous horn 702.8 [facility] [id number] [place] [address] 21516- 8268 January, [facility] [id number] [place] [address] 01079- 4679 Dec, [facility] [id number] [place] [address] 47430- 9024 Dec, [facility] [id number] [place] [address] 32362- 5681 Nov, [facility] [id number] [place] [address] 74669- 8569 Nov, [facility] [id number] [place] [address] 34968- 4852 Oct, [facility] [id number] [place] [address] 72542- 2546 Oct, [facility] [id number] [place] [address] 09031- 2679 Oct, [facility] [id number] [place] [address] 584171- 1054 Oct, [facility] [id number] [place] [address] 88385- 1456 Oct, [facility] [place] [facility] [address] [id number] [place] [address]- 3591 Oct, [facility] [place] [facility] [address] [id number] [place] [address]- 6187 Sep, [facility] [place] [facility] [address] [id number] [place] [address]- 5495 Sep, [facility] [place] [facility] [address] [id number] [place] [address]- 8101 Sep, [facility] [place] [facility] [address] [id number] [place] [address]- 0618 Sep, [facility] [place] [facility] [address] [id number] [place] [address]- 6356 Sep, [facility] [place] [facility] [address] [id number] [place] [address]- 5989 Sep, [facility] [place] [facility] [address] [id number] [place] [address]- 0980 Sep, [facility] [place] [facility] [address] [id number] [place] [address]- 3233 Sep, [facility] [place] [facility] [address] [id number], [place] [address]- 3273 Sep, [facility] [place] [facility] [address] [id number], [place] [address]- 6174 Sep, [facility] [place] [facility] [address] [id number], [place] [address]- 2625 Sep, [facility] [place] [facility] [address] [id number], [place] [address]- 7235 Sep, [facility] [place] [facility] [address] [id number], [place] [address]- 7430 Sep, [facility] [place] [facility] [address] [id number], [place] [address]- 5628 Sep, [facility] [place] [facility] [address] [id number], [place] [address]- 6453 Aug, [facility] [place] [facility] [address] [id number] [place] [address]- 7999 Aug, [facility] [place] [facility] [address] [id number] [place] [address]- 4850 Aug, [facility] [place] [facility] [address] [id number] [place] [address]- 9432 Aug, [facility] [place] [facility] [address] [id number] [place] [address]- 5897 Jul, [facility] [place] [facility] [address] [id number] [place] [address]- 4671 Jul, [facility] [place] [facility] [address] [id number] [place] [address]- 8878 May, [facility] [place] [facility] [address] [id number] [place] [address]- 2391 May, [facility] [place] [facility] [address] [id number] [place] [address]- 0156 May, [facility] [place] [facility] [address] [id number] [place] [address]- 8057 May, [facility] [place] [facility] [address] [id number] [place] [address]- 7692 May, [facility] [place] [facility] [address] [id number] [place] [address]- 7522 May, [facility] [place] [facility] [address] [id number] [place] [address]- 6075 Apr, [facility] [place] [facility] [address] [id number] [place] [address]- 2328 Apr, [facility] [place] [facility] [address] [id number] [place] 2871 Mar, [facility] [place] [facility] [address] [id number] [place] 6341 Mar, [facility] [place] [facility] [address] [id number] [place] [address]- 6936 Mar, [facility] [place] [facility] [address] [id number] [place] [address]- 0997 Mar, [facility] [place] [facility] [address] [id number] [place] [address]- 4705 Mar, [facility] [place] [facility] [address] [id number] [place] [address]- 9012 Mar, [facility] [place] [facility] [address] [id number] [place] [address]- 0745 Mar, [facility] [place] [facility] [address] [id number] [place] [address]- 6279 Mar, [facility] [place] [facility] [address] [id number] [place] [address]- 0123 Feb, [facility] [place] [facility] [address] [id number] [place] [address]- 9748 Feb, [facility] [place] [facility] [address] [id number] [place] [address]- 4591 January, [facility] [place] [facility] [address] [id number] [place] [address]- 2884 January, [facility] [place] [facility] [address] [id number] [place] [address]- 0474 January, [facility] [place] [facility] [address] [id number] [place] [address]- 4104 January, [facility] [place] [facility] [address] [id number] [place] [address]- 8767 Dec, [facility] [place] [facility] [address] [id number] [place] [address]- 2030 Dec, [facility] [place] [facility] [address] [id number] [place] [address]- 0227 Oct, [facility] [place] [facility] [address] [id number] [place] [address]- 6004 Oct, [facility] [place] [facility] [address] [id number] [place] [address]- 2284 Oct, [facility] [place] [facility] [address] [id number] [place] [address]- 8846 Oct, [facility] [place] [facility] [address] [id number] [place] [address]- 2709 Sep, [facility] [place] [facility] [address] [id number] [place] [address]- 5340 Sep, [facility] [place] [facility] [address] [id number] [place] [address]- 0971 Aug, [facility] [place] [facility] [address] [id number] [place] [address]- 3091 Aug, [facility] [place] [facility] [address] [id number] [place] [address]- 4139 Aug, [facility] [place] [facility] [address] [id number] [place] [address]- 3829 Aug, [facility] [place] [facility] [address] [id number] [place] [address]- 2922 Aug, [facility] [place] [facility] [address] [id number] [place] [address]- 9593 Aug, [facility] [place] [facility] [address] [id number] [place] [address]- 8718 Aug, [facility] [place] [facility] [address] [id number] [place] [address]- 3547 Aug, [facility] [place] [facility] [address] [id number] [place] 9048 Aug, [facility] [place] [facility] [address] [id number] [place] 0515 Aug, [facility] [place] [facility] [address] [id number] [place] 7894 Jul, [facility] [place] [facility] [address] [id number] [place] [address]- 9474 Jul, [facility] [address] [id number] [place] [address]- 4466 Jun, [facility] [place] [facility] [address] [id number] [place] [address]- 0919 Jun, [facility] [address] [id number] [place] [address]- 0912 Jun, [facility] [place] [facility] [address] [id number] [place] [address]- 4482 Jun, [facility] [address] [id number] [place] [address] Jun, [facility] [place] [facility] [address] [id number] [place] [address] May, [facility] [place] [facility] [address] [id number] [place] [address] 13 May, 2013 [facility] [address] [id number] [place] [address] 12 May, 2013 [facility] [place] [facility] [address] [id number] [place] [address] 06 May, 2013 [facility] [address] [id number] [place] [address] 03 May, 2013 [facility] [place] [facility] [address] [id number] [place] [address] 1990 Apr, [facility] [place] [facility] [address] [id number] [place] [address] Mar, [facility] [place] [facility] [address] [id number] [place] [address] Mar, [facility] [place] [facility] [address] [id number] [place] [address] Mar, [facility] [place] [facility] [address] [id number] [place] [address] Mar, [facility] [address] [id number] [place] [address] Mar, [facility] [place] [facility] [address] [id number] [place] [address] Mar, [facility] [address] [id number] [place] [address] Mar, [facility] [place] [facility] [address] [id number] [place] [address] Mar, [facility] [address] [id number] [place] [address] Mar, [facility] [place] [facility] [address] [id number] [place] [address] Feb, [facility] [place] [facility] [address] [id number] [place] [address] Feb, [facility] [address] [id number] [place] [address] Feb, [facility] [place] [facility] [address] [id number] [place] [address] January, [facility] [place] [facility] [address] [id number] [place] [address] January, [facility] [place] [facility] [address] [id number] [place] [address] January, [facility] [place] [facility] [address] [id number], [place] [address] January, [facility] [place] [facility] [address] [id number] [place] [address] Dec, [facility] [place] [facility] [address] [id number] [place] [address]- [address] Dec, [facility] [place] [facility] [address] [id number] [place] [address] Dec, [facility] [place] [facility] [address] [id number], [place] [address] 10 Dec, 2012 [facility] [address] [id number] [place] [address] Dec, [facility] [address] [id number] [place] [address] Dec, [facility] [address] [facility] [id number] [place] [address] Nov, [facility] [address] [id number] [place] [address] Oct, [facility] [address] [id number] [place] [address] [address] Aug, [facility] [address] [id number] [place] [address] Aug, [facility] [address] [facility] [id number] [place] [address] Aug, [facility] [address] [id number] [place] [address] Aug, [facility] [address] [id number] [place] [address] Aug, [facility] [address] [facility] [id number] [place] [address] Aug, [facility] [address] [id number] [place] [address] Aug, [facility] [place] [facility] [address] [id number] [place] [address] Aug, [facility] [address] [id number] [place] [address] 06 Aug, 2012 [facility] [address] [id number] [place] [address] Aug, [facility] [address] [facility] [id number] [place] [address] Aug, [facility] [place] [facility] [address] [id number] [place] [address] Jul, [facility] [place] [facility] [address] [id number] [place] [address] Jul, [facility] [place] [facility] [address] [id number] [place] [address] Jul, [facility] [place] [facility] [address] [id number] [place] [address] Jul, [facility] [place] [facility] [address] [id number] [place] [address] Jul, [facility] [place] [facility] [address] [id number] [place] [address] Jul, [facility] [place] [facility] [address] [id number] [place] [address] Jun, [facility] [place] [facility] [address] [id number] [place] [address] Jun, [facility] [place] [facility] [address] [id number] [place] [address] May, [facility] [place] [facility] [address] [id number] [place] [address] Apr, [facility] [place] [facility] [address] [id number] [place] [address] Apr, [facility] [place] [facility] [address] [id number] [place] [address] Apr, [facility] [place] [facility] [address] [id number] [place] [address] Apr, [facility] [place] [facility] [address] [id number] [place] [address] Apr, [facility] [place] [facility] [address] [id number] [place] [address] Mar, [facility] [place] [facility] [address] [id number] [place] [address] Mar, [facility] [address] [id number] [place] [address] January, [facility] [place] [facility] [address] [id number] [place] [address] January, [facility] [place] [facility] [address] [id number] [place] [address] Nov, [facility] [place] [facility] [address] [id number] [place] [address] Oct, [facility] [place] [facility] [address] [id number] [place] [address] Sep, [facility] [place] [facility] [address] [id number] [place] [address] Sep, [facility] [place] [facility] [address] [id number] [place] [address] Sep, [facility] [place] [facility] [address] [id number] [place] [address] Sep, [facility] [place] [facility] [address] [id number] [place] [address] Sep, [facility] [place] [facility] [address] [id number] [place] [address] Sep, [facility] [place] [facility] [address] [id number] [place] [address] Aug, [facility] [place] [facility] [address] [id number], [place] [address] Aug, [facility] [place] [facility] [address] [id number] [place] [address] Aug, [facility] [place] [facility] [address] [id number] [place] [address] Aug, [facility] [place] [facility] [address] [id number] [place] [address] Aug, [facility] [place] [facility] [id number] [address] Jul, [facility] [address] [facility] [id number], [place] [address] Jul, [facility] [address] [facility] [id number], [place] [address] Jul, [facility] [id number], [place] [address] Jun, [facility] [address] [facility] [id number], [place] [address] Jun, [facility] [id number] [place] [address] Jun, [facility] [id number], [place] [address] January, [facility] [id number] [place] [address] Dec, [facility] [id number], [place] [address] Oct, [facility] [id number] [address] Oct, [facility] [id number] [address] Jun, [facility] [id number], [place] [address] Aug, [facility] [id number] [address] Aug, [facility] [id number] [place] [address] Jul, [facility] [id number] [address] [address] Mar, IMMUNIZATIONS No Known Immunizations SOCIAL HISTORY Never Assessed REASON FOR VISIT Lab (walk-in) PLAN OF CARE VITAL SIGNS MEDICATIONS Unknown Medications RESULTS No Results PROCEDURES Procedure Date Ordered Result Body Site LAB NOT BILLED BY [facility] Apr 25, 2018 INSTRUCTIONS MEDICATIONS ADMINISTERED No Known Medications MEDICAL (GENERAL) HISTORY Type Description Date Medical History Hypertension Medical History Chronic Obstructive pulmonary disease diagnosed 2008 in [place]-PFT not done previously Medical History Gastrointestinal disorder [...]
--- OUTSIDE RECORDS SUMMARY | 2018-08-21 15:31 | XMS REPORT ---
Author Author KAITLIN TURNER Organization [facility] Address [address] 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 Name Role Phone KAITLIN TURNER Unavailable PROBLEMS Type Condition ICD9-CM Code WAF50-KI Code Onset Dates Condition Status SNOMED Code Problem Chronic sinusitis, unspecified J32.9 Active 04496815 Problem Other chronic pain G89.29 Active 81329041 Problem Gastroesophageal reflux disease without esophagitis K21.9 Active 730553018 Problem Slow transit constipation K59.01 Active 51611489 Problem Coronary artery disease involving otoe-[place]ou[place] coronary artery of otoe-[place]ou[place] heart without angina pectoris I25.10 Active 4705985571586 Problem Agoraphobia with panic attacks F40.01 Active 956028492 Problem COPD with exacerbation J44.1 Active 892586781 Problem Pericardial effusion I31.3 Active 563389895 Problem Pleural effusion on left J90 Active 93025622 Problem Generalized anxiety disorder F41.1 Active 07953042 Problem Chronic obstructive pulmonary disease, unspecified COPD type J44.9 Active 50220763 Problem Hypertension, benign I10 Active 28044074 Problem Oral phase dysphagia R13.11 Active 176487385 Problem Vitamin B 12 deficiency E53.8 Active 26194184 Problem Chronic fatigue R53.82 Active [id number] ALLERGIES No Information ENCOUNTERS Encounter Location Date Diagnosis [facility] [id number], [place] [address] May, [facility] [id number], [place] [address] Apr, Flank pain R10.9 [facility] [id number], [place] [address] Apr, Generalized anxiety disorder F41.1 [facility] [id number], [place] [address] 40[address] Apr, Generalized anxiety disorder F41.1 [facility] [id number], [place] [address] 8[address] Apr, Flank pain R10.9 and Chronic prescription benzodiazepine use Z79.899 [facility] [address], [place] [address] 5708 Mar, Flank pain R10.9 [facility] [id number] [place] [address] 75378- 9582 Mar, [facility] [address], [place] [address] 9329 Feb, Coronary artery disease involving otoe-[place]ouria coronary artery of o[place]ou[place] heart without angina pectoris I25.10 ; Vitamin B 12 deficiency E53.8 ; Slow transit constipation K59.01 ; Generalized anxiety disorder F41.1 and Breast cancer screening by mammogram Z12.31 [address], [place] [address] Feb, Flank pain R10.9 [facility] [address], [place] [address] January, [facility] [address], [place] [address] January, Chronic obstructive pulmonary disease, unspecified COPD type J44.9 ; Pleural effusion on left J90 ; Pericardial effusion I31.3 and Generalized anxiety disorder F41.1 [facility] [address], [place] [address] 49[address] January, Gastroenteritis K52.9 [facility] [id number], [place] [address] 8564 January, Flank pain R10.9 [facility] [id number], [place] [address] 5579 January, [facility] [address] [id number] [place] [address] Dec [facility] [address], [place] [address] 16 Dec, 2017 [facility] [address], [place] [address] 9636 Dec, [facility] [address], [place] [address] 9812 Dec, [facility] [id number] [place] [address] 03093- 0477 Dec, [facility] [id number] [place] [address] 37451- 8723 Dec, Flank pain R10.9 [facility] [id number] [place] [address] 35926- 9829 Dec, [facility] [id number] [place] [address] 17248- 4461 Nov, [facility] [id number] [place] [address] 50640- 7941 Nov, [facility] [id number] [place] [address] 51757- 2065 Nov, [facility] [id number] [place] [address] 28970- 1973 Nov, Pericardial effusion I31.3 ; Agoraphobia with panic attacks F40.01 and Vitamin B 12 deficiency E53.8 [facility] [address], [place] [address] 8[address] Nov, [facility] [address], [place] [address] Nov, Pneumonia of both lungs due to infectious organism, unspecified part of lung J18.9 and Flank pain R10.9 [facility] [address], [place] [address] Nov, Pneumonia of both lungs due to infectious organism, unspecified part of lung J18.9 and Gastroenteritis K52.9 [facility] [id number] [place] [address] 72240- 5688 Oct, Pneumonia of both lungs due to infectious organism, unspecified part of lung J18.9 and Vitamin B 12 deficiency E53.8 [facility] [id number] [place] [address] [id number] Oct, [facility] [id number] [place] [address] 73962- 4003 Oct, [facility] [id number] [place] [address] 88348- 2171 Oct, [facility] [id number] [place] [address] 18097- 7817 Oct, Flank pain R10.9 [facility] [id number] [place] [address] 48274- 8291 Oct, Other chronic pain G89.29 and Unspecified abdominal pain R10.9 [facility] [id number] [place] [address] 07141- 5863 Sep, Flank pain R10.9 [facility] [id number] [place] [address] 44758- 1899 Sep, [facility] [id number] [place] [address] 08560- 2901 Sep, [facility] [address] [place] [address] 35976- 8880 Sep, Acute non-recurrent maxillary sinusitis J01.00 [facility] [address] [place] [address] 35967- 2167 Sep, Acute non-recurrent maxillary sinusitis J01.00 and Vitamin B 12 deficiency E53.8 [facility] [address] [place] [address] 63298- 6348 Sep, [facility] [id number] [place] [address] 91875- 0724 Sep, [facility] [address] 81824- 1441 Sep, [facility] [address] [address]87- 6554 Sep, COPD with exacerbation J44.1 [facility] [address] 71597- 8958 Sep, Chronic obstructive pulmonary disease, unspecified COPD type J44.9 [facility] [address] 27417- 5289 Aug, Flank pain R10.9 [facility] [address] 85728- 0785 Jul, Flank pain R10.9 and Vitamin B 12 deficiency E53.8 [facility] [address] 91933- 9323 Jul, [facility] [address] 40464- 0255 Jun, Gastroenteritis K52.9 [facility] [address] 17378- 9344 May, Gastroenteritis K52.9 and Vitamin B 12 deficiency E53.8 [facility] [id number] [place] [address] 91519- 0028 Apr, Allergic conjunctivitis of left eye H10.12 and Chronic fatigue R53.82 [facility] [id number] [place] [address] 44704- 0221 Apr, Chronic sinusitis, unspecified J32.9 [facility] [address] 33099- 5494 Apr, [facility] [address] 12701- 8489 Feb, [facility] [address] 21161- 7728 January, [facility] [id number] [place] [address] 71630- 4236 Dec, [facility] [id number] [place] [address] 87989- 7493 Oct, [facility] [id number] [place] [address] 36528- 9017 Sep, Oral phase dysphagia R13.11 and Vitamin B 12 deficiency E53.8 [facility] [address] 76515- 7692 Sep, [facility] [id number] [place] [address] 97746- 8962 Jul, [facility] [address] 21919- 8361 Jul, [facility] [address] 14845- 4730 Jun, Bronchitis J40 ; Generalized anxiety disorder F41.1 and Chronic obstructive pulmonary disease, unspecified COPD type J44.9 [facility] [id number] [place] [address] 72426- 8548 Jun, [facility] [id number] [place] [address] 49067- 4292 Jun, [facility] [id number] [place] [address] 05647- 5833 Jun, [facility] [id number] [place] [address] 68439- 5162 May, Vitamin B 12 deficiency E53.8 ; Essential (primary) hypertension I10 ; Generalized anxiety disorder F41.1 ; Pain in joint, ankle and foot 719.47 ; Arthritis M19.90 ; Chronic obstructive pulmonary disease, unspecified COPD type J44.9 and Encounter for immunization Z23 [address] [id number] [place] [address] 36432- 3910 Apr, [facility] [id number] [place] [address] 03279- 1164 Apr, [facility] [address], [place] [address]- 5588 Mar, [facility] [id number] [place] [address] 26127- 5839 January, [facility] [address] 9967 Dec, [facility] [id number] [place] [address] 11997- 4973 Oct, [facility] [address] [place] [address] 15104- 1878 Oct, [facility] [id number] [place] [address] 35887- 9886 Oct, Hypertension, benign I10 and Vitamin B 12 deficiency E53.8 [facility] [address], [place] [address]- 8212 Oct, [facility] [address], [place] [address]- 4238 Oct, [facility] [address], [place] [address]- 1940 Oct, Irritable bowel syndrome with diarrhea K58.0 [facility] [address], [place] [address]- 9231 Oct, [facility] [address], [place] [address]- 1250 Oct, Vitamin B 12 deficiency E53.8 ; Hypertension, benign I10 and Chronic obstructive pulmonary disease, unspecified COPD type J44.9 [facility] [address], [place] [address]- 5689 Sep, Irritable bowel syndrome with diarrhea K58.0 ; Hypertension , benign I10 ; Chronic obstructive pulmonary disease, unspecified COPD type J44.9 ; Edema, unspecified type R60.9 ; Vision changes H53.9 and Vitamin B 12 deficiency E53.8 [facility] [id number] [place] [address] 37191- 5275 Sep, [facility] [id number] [place] [address] 46940- 8881 Jul, Degenerative disc disease 722.6 [facility] [address] 20969- 4724 Jun, Pain in right leg M79.604 ; Encounter for immunization Z23 and Pain of left leg M79.605 [facility] [id number] [place] [address] 03175- 4026 Jun, [facility] [address] 67290- 0536 Jun, [facility] [id number] [place] [address] 41584- 3537 Jun, Degenerative disc disease 722.6 [facility] [id number] [place] [address] 30130- 2188 Jun, [facility] [id number] [place] [address] 12942- 1717 May, Seizures 780.39 and Autonomic peripheral neuropathy 337.9 [facility] [id number] [place] [address] 78521- 0199 18 May, 2015 [facility] [id number] [place] [address] 38067 2545 17 May, 2015 [facility] [id number] [place] [address] 19267- 2547 08 May, 2015 Degenerative disc disease 722.6 [facility] [id number] [place] [address] 15169- 2546 08 May, 2015 [facility] [id number] [place] [address] 59821- 1389 Mar, [facility] [address] [place] [address]- 0302 Mar, Degenerative disc disease 722.6 ; Spinal stenosis 724.00 and HTN (hypertension) 401.9 [facility] [id number] [place] [address] 35814- 0123 Feb, Cutaneous horn 702.8 [facility] [id number] [place] [address] 66827- 0956 Feb, Fatigue 780.79 [facility] [id number] [place] [address] 43106 2548 Feb, Fatigue 780.79 ; Arthritis 716.90 ; Spinal stenosis 724.00 ; Sinusitis 473.9 and Cutaneous horn 702.8 [facility] [id number] [place] [address] 61408- 8160 January, [facility] [id number] [place] [address] 32943- 3499 Dec, [facility] [id number] [place] [address] 40208- 3450 Dec, [facility] [id number] [place] [address] 65063- 2453 Nov, [facility] [id number] [place] [address] 59024- 0628 Nov, [facility] [id number] [place] [address] 84162- 4939 Oct, [facility] [id number] [place] [address] 78176- 2546 Oct, [facility] [id number] [place] [address] 27769- 1796 Oct, [facility] [id number] [place] [address] 155275- 5255 Oct, [facility] [id number] [place] [address] 80583- 3796 Oct, [facility] [place] [facility] [address] [id number] [place] [address]- 5787 Oct, [facility] [place] [facility] [address] [id number] [place] [address]- 2444 Sep, [facility] [place] [facility] [address] [id number] [place] [address]- 8295 Sep, [facility] [place] [facility] [address] [id number] [place] [address]- 1030 Sep, [facility] [place] [facility] [address] [id number] [place] [address]- 5524 Sep, [facility] [place] [facility] [address] [id number] [place] [address]- 9635 Sep, [facility] [place] [facility] [address] [id number] [place] [address]- 6335 Sep, [facility] [place] [facility] [address] [id number] [place] [address]- 4992 Sep, [facility] [place] [facility] [address] [id number] [place] [address]- 4122 Sep, [facility] [place] [facility] [address] [id number], [place] [address]- 2827 Sep, [facility] [place] [facility] [address] [id number], [place] [address]- 3976 Sep, [facility] [place] [facility] [address] [id number], [place] [address]- 5947 Sep, [facility] [place] [facility] [address] [id number], [place] [address]- 3599 Sep, [facility] [place] [facility] [address] [id number], [place] [address]- 7113 Sep, [facility] [place] [facility] [address] [id number], [place] [address]- 8577 Sep, [facility] [place] [facility] [address] [id number], [place] [address]- 9393 Aug, [facility] [place] [facility] [address] [id number] [place] [address]- 4571 Aug, [facility] [place] [facility] [address] [id number] [place] [address]- 1137 Aug, [facility] [place] [facility] [address] [id number] [place] [address]- 6264 Aug, [facility] [place] [facility] [address] [id number] [place] [address]- 6455 Jul, [facility] [place] [facility] [address] [id number] [place] [address]- 8253 Jul, [facility] [place] [facility] [address] [id number] [place] [address]- 4629 May, [facility] [place] [facility] [address] [id number] [place] [address]- 4310 May, [facility] [place] [facility] [address] [id number] [place] [address]- 4178 May, [facility] [place] [facility] [address] [id number] [place] [address]- 5802 May, [facility] [place] [facility] [address] [id number] [place] [address]- 3086 May, [facility] [place] [facility] [address] [id number] [place] [address]- 8168 May, [facility] [place] [facility] [address] [id number] [place] [address]- 0112 Apr, [facility] [place] [facility] [address] [id number] [place] [address]- 3664 Apr, [facility] [place] [facility] [address] [id number] [place] 3985 Mar, [facility] [place] [facility] [address] [id number] [place] 0035 Mar, [facility] [place] [facility] [address] [id number] [place] [address]- 8768 Mar, [facility] [place] [facility] [address] [id number] [place] [address]- 3028 Mar, [facility] [place] [facility] [address] [id number] [place] [address]- 3191 Mar, [facility] [place] [facility] [address] [id number] [place] [address]- 7062 Mar, [facility] [place] [facility] [address] [id number] [place] [address]- 9931 Mar, [facility] [place] [facility] [address] [id number] [place] [address]- 1761 Mar, [facility] [place] [facility] [address] [id number] [place] [address]- 2550 Feb, [facility] [place] [facility] [address] [id number] [place] [address]- 4725 Feb, [facility] [place] [facility] [address] [id number] [place] [address]- 5641 January, [facility] [place] [facility] [address] [id number] [place] [address]- 8314 January, [facility] [place] [facility] [address] [id number] [place] [address]- 6305 January, [facility] [place] [facility] [address] [id number] [place] [address]- 6938 January, [facility] [place] [facility] [address] [id number] [place] [address]- 8528 Dec, [facility] [place] [facility] [address] [id number] [place] [address]- 8839 Dec, [facility] [place] [facility] [address] [id number] [place] [address]- 3253 Oct, [facility] [place] [facility] [address] [id number] [place] [address]- 8481 Oct, [facility] [place] [facility] [address] [id number] [place] [address]- 8353 Oct, [facility] [place] [facility] [address] [id number] [place] [address]- 5626 Oct, [facility] [place] [facility] [address] [id number] [place] [address]- 1989 Sep, [facility] [place] [facility] [address] [id number] [place] [address]- 4775 Sep, [facility] [place] [facility] [address] [id number] [place] [address]- 4560 Aug, [facility] [place] [facility] [address] [id number] [place] [address]- 6209 Aug, [facility] [place] [facility] [address] [id number] [place] [address]- 8614 Aug, [facility] [place] [facility] [address] [id number] [place] [address]- 3540 Aug, [facility] [place] [facility] [address] [id number] [place] [address]- 7970 Aug, [facility] [place] [facility] [address] [id number] [place] [address]- 8333 Aug, [facility] [place] [facility] [address] [id number] [place] [address]- 4841 Aug, [facility] [place] [facility] [address] [id number] [place] [address]- 5149 Aug, [facility] [place] [facility] [address] [id number] [place] 3933 Aug, [facility] [place] [facility] [address] [id number] [place] 6816 Aug, [facility] [place] [facility] [address] [id number] [place] 8132 Jul, [facility] [place] [facility] [address] [id number] [place] [address]- 1371 Jul, [facility] [address] [id number] [place] [address]- 5828 Jun, [facility] [place] [facility] [address] [id number] [place] [address]- 8438 Jun, [facility] [address] [id number] [place] [address] Jun, [facility] [place] [facility] [address] [id number] [place] [address] Jun, [facility] [address] [id number] [place] [address] Jun, [facility] [place] [facility] [address] [id number] [place] [address] May, [facility] [place] [facility] [address] [id number] [place] [address] 13 May, 2013 [facility] [address] [id number] [place] [address] 12 May, 2013 [facility] [place] [facility] [address] [id number] [place] [address] 06 May, 2013 [facility] [address] [id number] [place] [address] 03 May, 2013 [facility] [place] [facility] [address] [id number] [place] [address] Apr, [facility] [place] [facility] [address] [id number] [place] [address] Mar, [facility] [place] [facility] [address] [id number] [place] [address] Mar, [facility] [place] [facility] [address] [id number] [place] [address] Mar, [facility] [place] [facility] [address] [id number] [place] [address] Mar, [facility] [address] [id number] [place] [address] Mar, [facility] [place] [facility] [address] [id number] [place] [address] Mar, [facility] [address] [id number] [place] [address] Mar, [facility] [place] [facility] [address] [id number] [place] [address] Mar, [facility] [address] [id number] [place] [address] Mar, [facility] [place] [facility] [address] [id number] [place] [address] Feb, [facility] [place] [facility] [address] [id number] [place] [address] Feb, [facility] [address] [id number] [place] [address] Feb, [facility] [place] [facility] [address] [id number] [place] [address] January, [facility] [place] [facility] [address] [id number] [place] [address] January, [facility] [place] [facility] [address] [id number] [place] [address] January, [facility] [place] [facility] [address] [id number], [place] [address] January, [facility] [place] [facility] [address] [id number] [place] [address] Dec, [facility] [place] [facility] [address] [id number] [place] [address] Dec, [facility] [place] [facility] [address] [id number] [place] [address] Dec, [facility] [place] [facility] [address] [id number], [place] [address] 10 Dec, 2012 [facility] [address] [id number] [place] [address] Dec, [facility] [address] [id number] [place] [address] Dec, [facility] [address] [facility] [id number] [place] [address] Nov, [facility] [address] [id number] [place] [address] Oct, [facility] [address] [id number] [place] [address] Aug, [facility] [address] [id number] [place] [address] Aug, [facility] [address] [facility] [id number] [place] [address] Aug, [facility] [address] [id number] [place] [address] Aug, [facility] [address] [id number] [place] [address]- 37[address] Aug, [facility] [address] [facility] [id number] [place] [address] Aug, [facility] [address] [id number] [place] [address] Aug, [facility] [place] [facility] [address] [id number] [place] [address] Aug, [facility] [address] [id number] [place] [address] 06 Aug, 2012 [facility] [address] [id number] [place] [address] Aug, [facility] [address] [facility] [id number] [place] [address] Aug, [facility] [place] [facility] [address] [id number] [place] [address] Jul, [facility] [place] [facility] [address] [id number] [place] [address] Jul, [facility] [place] [facility] [address] [id number] [place] [address] Jul, [facility] [place] [facility] [address] [id number] [place] [address] Jul, [facility] [place] [facility] [address] [id number] [place] [address]697 Jul, [facility] [place] [facility] [address] [id number] [place] [address] Jul, [facility] [place] [facility] [address] [id number] [place] [address] Jun, [facility] [place] [facility] [address] [id number] [place] [address] Jun, [facility] [place] [facility] [address] [id number] [place] [address] May, [facility] [place] [facility] [address] [id number] [place] [address] Apr, [facility] [place] [facility] [address] [id number] [place] [address] Apr, [facility] [place] [facility] [address] [id number] [place] [address] Apr, [facility] [place] [facility] [address] [id number] [place] [address] Apr, [facility] [place] [facility] [address] [id number] [place] [address] Apr, [facility] [place] [facility] [address] [id number] [place] [address] Mar, [facility] [place] [facility] [address] [id number] [place] [address] Mar, [facility] [address] [id number] [place] [address] January, [facility] [place] [facility] [address] [id number] [place] [address] 0946 January, [facility] [place] [facility] [address] [id number] [place] [address] Nov, [facility] [place] [facility] [address] [id number] [place] [address] Oct, [facility] [place] [facility] [address] [id number] [place] [address] Sep, [facility] [place] [facility] [address] [id number] [place] [address] Sep, [facility] [place] [facility] [address] [id number] [place] [address] 1508 Sep, [facility] [place] [facility] [address] [id number] [place] [address] Sep, [facility] [place] [facility] [address] [id number] [place] [address] Sep, [facility] [place] [facility] [address] [id number] [place] [address] Sep, [facility] [place] [facility] [address] [id number] [place] [address] Aug, [facility] [place] [facility] [address] [id number], [place] [address] Aug, [facility] [place] [facility] [address] [id number] [place] [address] Aug, [facility] [place] [facility] [address] [id number] [place] [address] Aug, [facility] [place] [facility] [address] [id number] [place] [address] Aug, [facility] [place] [facility] [address], [place] [address] Jul, [facility] [address] [facility] [id number], [place] [address] Jul, [facility] [address] [facility] [facility] [id number], [place] [address] Jul, [facility] [address], [place] [address] Jun, [facility] [address] [facility] [facility] [id number], [place] [address] Jun, [facility] [address] [facility] [facility] [id number] [place] [address] Jun, [facility] [address], [place] [address] January, [facility] [id number] [place] [address] Dec, [facility] [address], [place] [address] Oct, [facility] [address], [place] [address] Oct, [facility] [address], [place] [address] Jun, [facility] [address], [place] [address] Aug, [facility] [address] [id number] [address] Aug, [facility] [address], [place] [address] Jul, [facility] [address], [place] [address] Mar, IMMUNIZATIONS No Known Immunizations SOCIAL HISTORY Never Assessed REASON FOR VISIT Controlled Med Refill PLAN OF CARE VITAL SIGNS MEDICATIONS Medication Instructions Dosage Frequency Start Date End Date Duration Status Vitamin D3 5000 UNIT TAKE ONE (1) CAPSULE BY MOUTH ONCE DAILY 30 Active Ibuprofen 600 MG Orally every 6 hrs 1 tablet with food or milk as needed 6h Active Enalapril Maleate 20 MG Orally Once a day 1 tablet 24h 23 Nov, 2017 90 days Active Omeprazole 20 mg Orally Once a day 1 capsule 24h 90 days Active [place]view 5-325 MG Orally every 6 hrs 1 tablet as needed 6h Nov, 28 days Active Atenolol 100 MG Orally 2 times a day TAKE ONE-HALF TABLET BY MOUTH TWICE DAILY 12h 90 days Active ProAir HFA 108 (90 Base) MCG/ACT Inhalation every 6 hrs 2 puffs as needed 6h Active Advair Diskus 500-50 MCG/DOSE Inhalation Twice a day 1 puffs by Inhalation route 2 times per day 12h 30 Active Fluticasone Propionate 50 MCG/ACT Nasally 2 times a day 1 spray in each nostril 12h 30 days Active Acidophilus 100 mg Orally Once a day 1 capsule 24h 18 May, 2017 Active Colace 100 mg Orally 2 times a day 1 capsule as needed 12h Aug, 90 days Active [place]-3 Fatty Acids 1000 MG Orally Once a day 2 capsules 24h Aug, 90 days Active Gas-X 80 MG Orally 2 times a day 1 tablet as needed 12h Active Xanax 0.5 MG Orally 3 times a day as needed 1 tablet Nov, 28 days Active Ranitidine HCl 150 MG Orally Twice a day 1 tablet as needed 12h 90 days Active Albuterol Sulfate (2.5 MG/3ML) 0.083% Inhalation every 4 hrs 3 ml 4h 29 Oct Active Dicyclomine HCl 20 mg Orally Four times a day PRN 1 tablet 30 Active Cetirizine HCl 10 mg Orally Once a day 1 tablet 24h 90 days Active Guaifenesin 400 mg Orally every 4 hrs 1 tablet as needed 4h 9 Active Aspirin 325 MG Orally Once a day 1 tablet 24h Active RESULTS No Results PROCEDURES No Known procedures INSTRUCTIONS MEDICATIONS ADMINISTERED No Known Medications MEDICAL (GENERAL) HISTORY Type Description Date Medical History Hypertension Medical History Chronic Obstructive pulmonary disease diagnosed 2008 in [place]-PFT not done previously Medical History Gastrointestinal [...]
--- OUTSIDE RECORDS SUMMARY | 2018-08-21 15:32 | XMS REPORT ---
Author Author KAITLIN TURNER Organization [facility] Address [address] [place] [address] Care Team Providers Care Yarn Packer Name Role Phone KAITLIN TURNER Unavailable PROBLEMS Type Condition ICD9-CM Code IIS19-TI Code Onset Dates Condition Status SNOMED Code Problem Chronic sinusitis, unspecified J32.9 Active 72451610 Problem Other chronic pain G89.29 Active 10005046 Problem Gastroesophageal reflux disease without esophagitis K21.9 Active 019637252 Problem Slow transit constipation K59.01 Active 81858002 Problem Coronary artery disease involving [place] coronary artery of [place] heart without angina pectoris I25.10 Active 4724860404112 Problem Agoraphobia with panic attacks F40.01 Active 389752443 Problem COPD with exacerbation J44.1 Active 264428063 Problem Pericardial effusion I31.3 Active 064432649 Problem Pleural effusion on left J90 Active 29885135 Problem Generalized anxiety disorder F41.1 Active 72943401 Problem Chronic obstructive pulmonary disease, unspecified COPD type J44.9 Active 02770158 Problem Hypertension, benign I10 Active 94683101 Problem Oral phase dysphagia R13.11 Active 164338693 Problem Vitamin B 12 deficiency E53.8 Active 60515437 Problem Chronic fatigue R53.82 Active 12871765 ALLERGIES No Information ENCOUNTERS Encounter Location Date Diagnosis [facility] [id number], [place] [address] May, [facility] [id number], [place] [address] 9459 Apr, Flank pain R10.9 [facility] [id number], [place] [address] 6733 Apr, Generalized anxiety disorder F41.1 [facility] [id number], [place] [address] 2926 Apr, Generalized anxiety disorder F41.1 [facility] [id number], [place] [address] 7154 Apr, Flank pain R10.9 and Chronic prescription benzodiazepine use Z79.899 [facility] [address], [place] [address] 1137 Mar, Flank pain R10.9 [facility] [id number] [place] [address] 00056- 7604 Mar, [facility] [address], [place] [address] 6101 Feb, Coronary artery disease involving [place] coronary artery of [place] heart without angina pectoris I25.10 ; Vitamin B 12 deficiency E53.8 ; Slow transit constipation K59.01 ; Generalized anxiety disorder F41.1 and Breast cancer screening by mammogram Z12.31 [address], [place] [address] Feb, Flank pain R10.9 [facility] [address], [place] [address] 7[address] January, [address] [address], [place] [address] 2042 January, Chronic obstructive pulmonary disease, unspecified COPD type J44.9 ; Pleural effusion on left J90 ; Pericardial effusion I31.3 and Generalized anxiety disorder F41.1 [place] [address], [place] [address] 1296 January, Gastroenteritis K52.9 [facility] [id number], [place] [address] 1841 January, Flank pain R10.9 [facility] [id number], [place] [address] January, [facility] [address] [id number] [place] [address] Dec [facility] [id number], [place] [address] 16 Dec, 2017 [facility] [address], [place] [address]- 3581 Dec, [facility] [address], [place] [address] 5923 Dec, [facility] [id number] [place] [address] 63715- 5746 Dec, [facility] [id number] [place] [address] 48293- 9852 Dec, Flank pain R10.9 [facility] [id number] [place] [address] 16035- 7839 Dec, [facility] [id number] [place] [address] 96584- 4190 Nov, [facility] [id number] [place] [address] 24324- 6729 Nov, [facility] [id number] [place] [address] 54306- 6367 Nov, [facility] [id number] [place] [address] 10969- 1269 Nov, Pericardial effusion I31.3 ; Agoraphobia with panic attacks F40.01 and Vitamin B 12 deficiency E53.8 [facility] [address], [place] [address] 7734 Nov, [facility] [address], [place] [address] 6706 Nov, Pneumonia of both lungs due to infectious organism, unspecified part of lung J18.9 and Flank pain R10.9 [facility] [address], [place] [address] 8704 Nov, Pneumonia of both lungs due to infectious organism, unspecified part of lung J18.9 and Gastroenteritis K52.9 [facility] [id number] [place] [address] 48754- 6299 Oct, Pneumonia of both lungs due to infectious organism, unspecified part of lung J18.9 and Vitamin B 12 deficiency E53.8 [facility] [id number] [place] [address] [id number] Oct, [facility] [id number] [place] [address] 65077- 6898 Oct, [facility] [id number] [place] [address] 48720- 9518 Oct, [facility] [id number] [place] [address] 27931- 2712 Oct, Flank pain R10.9 [facility] [id number] [place] [address] 05305- 5756 Oct, Other chronic pain G89.29 and Unspecified abdominal pain R10.9 [facility] [id number] [place] [address] 79039- 9363 Sep, Flank pain R10.9 [facility] [id number] [place] [address] 69061- 1663 Sep, [facility] [id number] [place] [address] 77319- 4414 Sep, [facility] [id number] [place] [address] 02801- 2343 Sep, Acute non-recurrent maxillary sinusitis J01.00 [facility] [id number] [place] [address] 96262- 9208 Sep, Acute non-recurrent maxillary sinusitis J01.00 and Vitamin B 12 deficiency E53.8 [facility] [id number] [place] [address] 71213- 0869 Sep, [facility] [id number] [place] [address] 65420- 3874 Sep, [facility] [address] 55681- 2650 Sep, [place] [address] 45435- 9211 Sep, COPD with exacerbation J44.1 [place] [address] 32832- 2817 Sep, Chronic obstructive pulmonary disease, unspecified COPD type J44.9 [place] [address] 34550- 0829 Aug, Flank pain R10.9 [place] [address] 60166- 7711 Jul, Flank pain R10.9 and Vitamin B 12 deficiency E53.8 [place] [address] 89745- 2914 Jul, [place] [address] 73074- 2316 Jun, Gastroenteritis K52.9 [place] [address] 52788- 4971 May, Gastroenteritis K52.9 and Vitamin B 12 deficiency E53.8 [place] [id number] [place] [address] 10229- 8173 Apr, Allergic conjunctivitis of left eye H10.12 and Chronic fatigue R53.82 [place] [id number] [place] [address] 58789- 4296 Apr, Chronic sinusitis, unspecified J32.9 [place] [address] 21388- 3065 Apr, [place] [address] 45229- 4279 Feb, [place] [address] 96322- 0882 January, [place] [id number] [place] [address] 70229- 1346 Dec, [place] [id number] [place] [address] 90574- 5250 Oct, [facility] [id number] [place] [address] 86274- 9291 Sep, Oral phase dysphagia R13.11 and Vitamin B 12 deficiency E53.8 [place] [address] 54278- 1300 Sep, [place] [id number] [place] [address] 58889- 1465 Jul, [place] [address] 56053- 7487 Jul, [place] [address] 84581- 0196 Jun, Bronchitis J40 ; Generalized anxiety disorder F41.1 and Chronic obstructive pulmonary disease, unspecified COPD type J44.9 [place] [id number] [place] [address] 76377- 0400 Jun, [address] [id number] [place] [address] 11910- 2208 Jun, [address] [id number] [place] [address] 64511- 8765 Jun, [place] [id number] [place] [address] 16928- 8169 May, Vitamin B 12 deficiency E53.8 ; Essential (primary) hypertension I10 ; Generalized anxiety disorder F41.1 ; Pain in joint, ankle and foot 719.47 ; Arthritis M19.90 ; Chronic obstructive pulmonary disease, unspecified COPD type J44.9 and Encounter for immunization Z23 [place] [id number] [place] [address] 83114- 4813 Apr, [place] [id number] [place] [address] 12615- 8272 Apr, [facility] [address], [place] [address]- 3150 Mar, [facility] [id number] [place] [address] 76225- 3012 January, [facility] [address] 7461 Dec, [facility] [id number] [place] [address] 53767- 1132 Oct, [facility] [id number] [place] [address] 28784- 9794 Oct, [facility] [address] [place] [address] 95506- 4585 Oct, Hypertension, benign I10 and Vitamin B 12 deficiency E53.8 [facility] [address], [place] [address]- 2487 Oct, [facility] [address], [place] [address]- 7850 Oct, [facility] [address], [place] [address]- 8636 Oct, Irritable bowel syndrome with diarrhea K58.0 [place] [address], [place] [address]- 1607 Oct, [facility] [address], [place] [address]- 4270 Oct, Vitamin B 12 deficiency E53.8 ; Hypertension, benign I10 and Chronic obstructive pulmonary disease, unspecified COPD type J44.9 [facility] [address], [place] [address]- 7436 Sep, Irritable bowel syndrome with diarrhea K58.0 ; Hypertension , benign I10 ; Chronic obstructive pulmonary disease, unspecified COPD type J44.9 ; Edema, unspecified type R60.9 ; Vision changes H53.9 and Vitamin B 12 deficiency E53.8 [facility] [id number] [place] [address] 23636- 9937 Sep, [facility] [id number] [place] [address] 59249- 8953 Jul, Degenerative disc disease 722.6 [facility] [address] 83957- 5529 Jun, Pain in right leg M79.604 ; Encounter for immunization Z23 and Pain of left leg M79.605 [facility] [id number] [place] [address] 05487- 6896 Jun, [facility] [address] 29164- 4866 Jun, [facility] [id number] [place] [address] 56502- 9292 Jun, Degenerative disc disease 722.6 [facility] [id number] [place] [address] 24697- 2478 Jun, [facility] [id number] [place] [address] 68297- 7438 May, Seizures 780.39 and Autonomic peripheral neuropathy 337.9 [facility] [id number] [place] [address] 99722- 5694 18 May, 2015 [facility] [id number] [place] [address] 26362 2542 17 May, 2015 [facility] [id number] [place] [address] 66748- 2540 08 May, 2015 Degenerative disc disease 722.6 [facility] [id number] [place] [address] 95978- 2546 08 May, 2015 [facility] [id number] [place] [address] 85965- 5027 Mar, [facility] [address] [place] [address]- 8806 Mar, Degenerative disc disease 722.6 ; Spinal stenosis 724.00 and HTN (hypertension) 401.9 [facility] [id number] [place] [address] 64701- 3814 Feb, Cutaneous horn 702.8 [facility] [id number] [place] [address] 82385- 7043 Feb, Fatigue 780.79 [facility] [id number] [place] [address] 96772 2545 Feb, Fatigue 780.79 ; Arthritis 716.90 ; Spinal stenosis 724.00 ; Sinusitis 473.9 and Cutaneous horn 702.8 [facility] [id number] [place] [address] 81907- 1843 January, [facility] [id number] [place] [address] 47950- 9896 Dec, [facility] [id number] [place] [address] 56275- 4365 Dec, [facility] [id number] [place] [address] 22580- 9220 Nov, [facility] [id number] [place] [address] 56179- 9237 Nov, [facility] [id number] [place] [address] 29063- 5760 Oct, [facility] [id number] [place] [address] 39053- 2546 Oct, [facility] [id number] [place] [address] 91713- 2096 Oct, [facility] [id number] [place] [address] 266935- 5989 Oct, [facility] [id number] [place] [address] 72552- 4686 Oct, [facility] [place] [facility] [address] [id number] [place] [address]- 5014 Oct, [facility] [place] [facility] [address] [id number] [place] [address]- 7488 Sep, [facility] [place] [facility] [address] [id number] [place] [address]- 9809 Sep, [facility] [place] [facility] [address] [id number] [place] [address]- 0497 Sep, [facility] [place] [facility] [address] [id number] [place] [address]- 5719 Sep, [facility] [place] [facility] [address] [id number] [place] [address]- 9075 Sep, [facility] [place] [facility] [address] [id number] [place] [address]- 8496 Sep, [facility] [place] [facility] [address] [id number] [place] [address]- 2765 Sep, [facility] [place] [facility] [address] [id number] [place] [address]- 3479 Sep, [facility] [place] [facility] [address] [id number], [place] [address]- 4134 Sep, [facility] [place] [facility] [address] [id number], [place] [address]- 4617 Sep, [facility] [place] [facility] [address] [id number], [place] [address]- 7392 Sep, [facility] [place] [facility] [address] [id number], [place] [address]- 1722 Sep, [facility] [place] [facility] [address] [id number], [place] [address]- 1823 Sep, [facility] [place] [facility] [address] [id number], [place] [address]- 1438 Sep, [facility] [place] [facility] [address] [id number], [place] [address]- 3199 Aug, [facility] [place] [facility] [address] [id number] [place] [address]- 2109 Aug, [facility] [place] [facility] [address] [id number] [place] [address]- 0737 Aug, [facility] [place] [facility] [address] [id number] [place] [address]- 1809 Aug, [facility] [place] [facility] [address] [id number] [place] [address]- 3329 Jul, [facility] [place] [facility] [address] [id number] [place] [address]- 6772 Jul, [facility] [place] [facility] [address] [id number] [place] [address]- 8973 May, [facility] [place] [facility] [address] [id number] [place] [address]- 5257 May, [facility] [place] [facility] [address] [id number] [place] [address]- 5282 May, [facility] [place] [facility] [address] [id number] [place] [address]- 1207 May, [facility] [place] [facility] [address] [id number] [place] [address]- 3713 May, [facility] [place] [facility] [address] [id number] [place] [address]- 1292 May, [facility] [place] [facility] [address] [id number] [place] [address]- 8634 Apr, [facility] [place] [facility] [address] [id number] [place] [address]- 0017 Apr, [facility] [place] [facility] [address] [id number] [place] 9053 Mar, [facility] [place] [facility] [address] [id number] [place] 4644 Mar, [facility] [place] [facility] [address] [id number] [place] [address]- 3771 Mar, [facility] [place] [facility] [address] [id number] [place] [address]- 1047 Mar, [facility] [place] [facility] [address] [id number] [place] [address]- 7551 Mar, [facility] [place] [facility] [address] [id number] [place] [address]- 3738 Mar, [facility] [place] [facility] [address] [id number] [place] [address]- 1911 Mar, [facility] [place] [facility] [address] [id number] [place] [address]- 0893 Mar, [facility] [place] [facility] [address] [id number] [place] [address]- 4574 Feb, [facility] [place] [facility] [address] [id number] [place] [address]- 6378 Feb, [facility] [place] [facility] [address] [id number] [place] [address]- 7892 January, [facility] [place] [facility] [address] [id number] [place] [address]- 1625 January, [facility] [place] [facility] [address] [id number] [place] [address]- 1637 January, [facility] [place] [facility] [address] [id number] [place] [address]- 7905 January, [facility] [place] [facility] [address] [id number] [place] [address]- 9360 Dec, [facility] [place] [facility] [address] [id number] [place] [address]- 7878 Dec, [facility] [place] [facility] [address] [id number] [place] [address]- 7851 Oct, [facility] [place] [facility] [address] [id number] [place] [address]- 4403 Oct, [facility] [place] [facility] [address] [id number] [place] [address]- 3539 Oct, [facility] [place] [facility] [address] [id number] [place] [address]- 6316 Oct, [facility] [place] [facility] [address] [id number] [place] [address]- 8525 Sep, [facility] [place] [facility] [address] [id number] [place] [address]- 8374 Sep, [facility] [place] [facility] [address] [id number] [place] [address]- 2040 Aug, [facility] [place] [facility] [address] [id number] [place] [address]- 2217 Aug, [facility] [place] [facility] [address] [id number] [place] [address]- 2122 Aug, [facility] [place] [facility] [address] [id number] [place] [address]- 1520 Aug, [facility] [place] [facility] [address] [id number] [place] [address]- 6871 Aug, [facility] [place] [facility] [address] [id number] [place] [address]- 6398 Aug, [facility] [place] [facility] [address] [id number] [place] [address]- 9451 Aug, [facility] [place] [facility] [address] [id number] [place] [address]- 3363 Aug, [facility] [place] [facility] [address] [id number] [place] [address] Aug, [facility] [place] [facility] [address] [id number] [place] [address] Aug, [facility] [place] [facility] [address] [id number] [place] [address] Jul, [facility] [place] [facility] [address] [id number] [place] [address] Jul, [facility] [address] [id number] [place] [address] Jun, [facility] [place] [facility] [address] [id number] [place] [address] Jun, [facility] [address] [id number] [place] [address] Jun, [facility] [place] [facility] [address] [id number] [place] [address] Jun, [facility] [address] [id number] [place] [address] Jun, [facility] [place] [facility] [address] [id number] [place] [address] May, [facility] [place] [facility] [address] [id number] [place] [address] 13 May, 2013 [facility] [address] [id number] [place] [address] 12 May, 2013 [facility] [place] [facility] [address] [id number] [place] [address] 06 May, 2013 [facility] [address] [id number] [place] [address] 03 May, 2013 [facility] [place] [facility] [address] [id number] [place] [address] Apr, [facility] [place] [facility] [address] [id number] [place] [address] Mar, [facility] [place] [facility] [address] [id number] [place] [address] Mar, [facility] [place] [facility] [address] [id number] [place] [address]991 Mar, [facility] [place] [facility] [address] [id number] [place] [address] Mar, [facility] [address] [id number] [place] [address] Mar, [facility] [place] [facility] [address] [id number] [place] [address] 6080 Mar, [facility] [address] [id number] [place] [address] Mar, [facility] [place] [facility] [address] [id number] [place] [address]- [address] Mar, [facility] [address] [id number] [place] [address] Mar, [facility] [place] [facility] [address] [id number] [place] [address] Feb, [facility] [place] [facility] [address] [id number] [place] [address] Feb, [facility] [address] [id number] [place] [address] 94[address] Feb, [facility] [place] [facility] [address] [id number] [place] [address] January, [facility] [place] [facility] [address] [id number] [place] [address] January, [facility] [place] [facility] [address] [id number] [place] [address] January, [facility] [place] [facility] [address] [id number], [place] [address] January, [facility] [place] [facility] [address] [id number] [place] [address] Dec, [facility] [place] [facility] [address] [id number] [place] [address] Dec, [facility] [place] [facility] [address] [id number] [place] [address] Dec, [facility] [place] [facility] [address] [id number], [place] [address] 10 Dec, 2012 [facility] [address] [id number] [place] [address] Dec, [facility] [address] [id number] [place] [address]26 Dec, [facility] [address] [facility] [id number] [place] [address] Nov, [facility] [address] [id number] [place] [address] Oct, [facility] [address] [id number] [place] [address] Aug, [facility] [address] [id number] [place] [address] Aug, [facility] [address] [facility] [id number] [place] [address] Aug, [facility] [address] [id number] [place] [address]- [address] Aug, [facility] [address] [id number] [place] [address] Aug, [facility] [address] [facility] [id number] [place] [address] Aug, [facility] [facility] [address] [id number] [place] [address] Aug, [facility] [place] [facility] [address] [id number] [place] [address] Aug, [facility] [address] [id number] [place] [address] 06 Aug, 2012 [facility] [address] [id number] [place] [address] Aug, [facility] [address] [facility] [id number] [place] [address] Aug, [facility] [place] [facility] [address] [id number] [place] [address] Jul, [facility] [place] [facility] [address] [id number] [place] [address] Jul, [facility] [place] [facility] [address] [id number] [place] [address] Jul, [facility] [place] [facility] [address] [id number] [place] [address] Jul, [facility] [place] [facility] [address] [id number] [place] [address] Jul, [facility] [place] [facility] [address] [id number] [place] [address] Jul, [facility] [place] [facility] [address] [id number] [place] [address] Jun, [facility] [place] [facility] [address] [id number] [place] [address] Jun, [facility] [place] [facility] [address] [id number] [place] [address] May, [facility] [place] [facility] [address] [id number] [place] [address] Apr, [facility] [place] [facility] [address] [id number] [place] [address] Apr, [facility] [place] [facility] [address] [id number] [place] [address] Apr, [facility] [place] [facility] [address] [id number] [place] [address] Apr, [facility] [place] [facility] [address] [id number] [place] [address] Apr, [facility] [place] [facility] [address] [id number] [place] [address] Mar, [facility] [place] [facility] [address] [id number] [place] [address] Mar, [facility] [address] [id number] [place] [address] January, [facility] [place] [facility] [address] [id number] [place] [address] January, [facility] [place] [facility] [address] [id number] [place] [address] Nov, [facility] [place] [facility] [address] [id number] [place] [address] Oct, [facility] [place] [facility] [address] [id number] [place] [address] Sep, [facility] [place] [facility] [address] [id number] [place] [address] Sep, [facility] [place] [facility] [address] [id number] [place] [address] Sep, [facility] [place] [facility] [address] [id number] [place] [address] Sep, [facility] [place] [facility] [address] [id number] [place] [address] Sep, [facility] [place] [facility] [address] [id number] [place] [address] Sep, [facility] [place] [facility] [address] [id number] [place] [address] Aug, [facility] [place] [facility] [address] [id number], [place] [address] Aug, [facility] [place] [facility] [address] [id number] [place] [address] Aug, [facility] [place] [facility] [address] [id number] [place] [address] Aug, [facility] [place] [facility] [address] [id number] [place] [address] Aug, [facility] [place] [facility] [id number] [address] Jul, [facility] [address] [facility] [id number], [place] [address] Jul, [facility] [address] [facility] [id number], [place] [address] Jul, [facility] [id number], [place] [address] Jun, [facility] [address] [facility] [id number], [place] [address] Jun, [facility] [id number] [place] [address] Jun, [facility] [id number], [place] [address] January, [facility] [id number] [place] [address] Dec, [facility] [id number], [place] [address] Oct, [facility] [id number], [place] [address] Oct, [facility] [id number], [place] [address] Jun, [facility] [id number], [place] [address] Aug, [facility] [address] [id number], [place] [address] Aug, [facility] [id number], [place] [address] Jul, [facility] [id number], [place] [address] Mar, IMMUNIZATIONS No Known Immunizations SOCIAL HISTORY Never Assessed REASON FOR VISIT Controlled Med Refill 03/27/18 PLAN OF CARE VITAL SIGNS MEDICATIONS Medication Instructions Dosage Frequency Start Date End Date Duration Status Xanax 0.5 MG Orally 3 times a day as needed 1 tablet Nov, 28 days Active RESULTS No Results PROCEDURES No Known procedures INSTRUCTIONS MEDICATIONS ADMINISTERED No Known Medications MEDICAL (GENERAL) HISTORY Type Description Date Medical History Hypertension Medical History Chronic Obstructive pulmonary disease diagnosed 2008 in [place]-PFT not done previously Medical History Gastrointestinal disorder [...]
--- OUTSIDE RECORDS SUMMARY | 2018-08-21 15:32 | XMS REPORT ---
Author Author KAITLIN TURNER Organization [facility] Address [address] 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 I25.10 Active 2886498065738 Problem Agoraphobia with panic attacks F40.01 Active 563756514 Problem COPD with exacerbation J44.1 Active 343794095 Problem Pericardial effusion I31.3 Active 055029502 Problem Pleural effusion on left J90 Active 46339866 Problem Generalized anxiety disorder F41.1 Active 37293231 Problem Chronic obstructive pulmonary disease, unspecified COPD type J44.9 Active 55210152 Problem Hypertension, benign I10 Active 36877304 Problem Oral phase dysphagia R13.11 Active 346141791 Problem Vitamin B 12 deficiency E53.8 Active 43264578 Problem Chronic fatigue R53.82 Active 29540336 ALLERGIES Substance Reaction Event Type Date Status MethylPREDNISolone psychosis Drug Allergy Feb, Active Ketorolac Tromethamine tingling in lips Drug Allergy Feb, Active Augmentin 875-125 Mg Tablet Pt states this medication is to harsh on her stomach. Non Drug Allergy Feb, Active ENCOUNTERS Encounter Location Date Diagnosis [facility] [address] [id number] [address] May, [facility] [address] [facility] [id number], [place] [address] Apr, Flank pain R10.9 [facility] [id number] [place] [address] 13989- 5525 Apr, Generalized anxiety disorder F41.1 [facility] [id number] [place] [address] 65558- 8155 Apr, Generalized anxiety disorder F41.1 [facility] [id number] [place] [address] 79398- 6607 Apr, Flank pain R10.9 and Chronic prescription benzodiazepine use Z79.899 [facility] [id number] [place] [address] 34058- 0006 Mar, Flank pain R10.9 [facility] [address] 76852- 3255 Mar, [facility] [id number] [place] [address] 21370- 1174 Feb, Coronary artery disease involving tonawanda coronary artery of tonawanda heart without angina pectoris I25.10 ; Vitamin B 12 deficiency E53.8 ; Slow transit constipation K59.01 ; Generalized anxiety disorder F41.1 and Breast cancer screening by mammogram Z12.31 [facility] [id number] [place] [address] 24027- 6625 Feb, Flank pain R10.9 [facility] [id number] [place] [address] 90477- 8609 January, [facility] [id number] [place] [address] 29512- 9097 January, Chronic obstructive pulmonary disease, unspecified COPD type J44.9 ; Pleural effusion on left J90 ; Pericardial effusion I31.3 and Generalized anxiety disorder F41.1 [facility] [id number] [place] [address] 67164- 5146 January, Gastroenteritis K52.9 [facility] [id number] [place] [address] 10197- 9147 January, Flank pain R10.9 [facility] [address] [place] [address] 3[address] January, [facility] [address] [place], [place] [id number] [place] [address] Dec [facility] [address], [place] [address] 5263 Dec, [facility] [address], [place] [address] 2951 Dec, [facility] [address], [place] [address] 5501 Dec, [facility] [address], [place] [address] 0400 Dec, [facility] [address], [place] [address] 9546 Dec, Flank pain R10.9 [facility] [address], [place] [address] 5528 Dec, [facility] [address], [place] [address] 8482 Nov, [facility] [id number] [place] [address] 97243- 8867 Nov, [facility] [address], [place] [address] 3838 Nov, [facility] [address], [place] [address] 1368 Nov, Pericardial effusion I31.3 ; Agoraphobia with panic attacks F40.01 and Vitamin B 12 deficiency E53.8 [facility] [address], [place] [address] 4254 Nov, [facility] [address], [place] [address] 9805 Nov, Pneumonia of both lungs due to infectious organism, unspecified part of lung J18.9 and Flank pain R10.9 [facility] [id number] [place] [address] 56353- 5543 Nov, Pneumonia of both lungs due to infectious organism, unspecified part of lung J18.9 and Gastroenteritis K52.9 [facility] [id number] [place] [address] [address] Oct, Pneumonia of both lungs due to infectious organism, unspecified part of lung J18.9 and Vitamin B 12 deficiency E53.8 [facility] [address] [id number] Oct, [facility] [address] 18505- 5644 Oct, [facility] [address] 876598- 5017 Oct, [facility] [id number] [place] [address] 58056- 8526 Oct, Flank pain R10.9 [facility] [id number] [place] [address] 58564- 8977 Oct, Other chronic pain G89.29 and Unspecified abdominal pain R10.9 [facility] [address] 72655- 9636 Sep, Flank pain R10.9 [facility] [id number] [place] [address] 37982- 7116 Sep, [facility] [id number] [place] [address] 14854- 2924 Sep, [facility] [id number] [place] [address] 70742- 1116 Sep, Acute non-recurrent maxillary sinusitis J01.00 [facility] [id number] [place] [address] 69889- 2814 Sep, Acute non-recurrent maxillary sinusitis J01.00 and Vitamin B 12 deficiency E53.8 [facility] [address] [place] [address]- 0318 Sep, [facility] [id number] [place] [address] 91367- 6793 Sep, [facility] [id number] [place] [address] 59918- 9349 Sep, [facility] [id number] [place] [address] 51091- 4974 Sep, COPD with exacerbation J44.1 [facility] [address] 40026- 6493 Sep, Chronic obstructive pulmonary disease, unspecified COPD type J44.9 [facility] [address] 47978- 4206 Aug, Flank pain R10.9 [facility] [address] 23553- 0104 Jul, Flank pain R10.9 and Vitamin B 12 deficiency E53.8 [facility] [id number] [place] [address] 46581- 6501 Jul, [facility] [id number] [place] [address] 99915- 7798 Jun, Gastroenteritis K52.9 [facility] [id number] [place] [address] 61456- 1357 May, Gastroenteritis K52.9 and Vitamin B 12 deficiency E53.8 [facility] [id number] [place] [address] 06426- 7584 Apr, Allergic conjunctivitis of left eye H10.12 and Chronic fatigue R53.82 [facility] [address] 80910- 2058 Apr, Chronic sinusitis, unspecified J32.9 [facility] [id number] [place] [address] 03560- 8486 Apr, [facility] [address] [place] [address] 9592 Feb, [facility] [id number] [place] [address] 21237- 8856 January, [facility] [id number] [place] [address] 86724- 2121 Dec, [facility] [id number] [place] [address] 54967- 3392 Oct, [facility] [id number] [place] [address] 37572- 6525 Sep, Oral phase dysphagia R13.11 and Vitamin B 12 deficiency E53.8 [facility] [id number] [place] [address] 42360- 5216 Sep, [facility] [id number] [place] [address] 86493- 0842 Jul, [facility] [id number] [place] [address] 33289- 6897 Jul, [facility] [id number] [place] [address] 21459- 6496 Jun, Bronchitis J40 ; Generalized anxiety disorder F41.1 and Chronic obstructive pulmonary disease, unspecified COPD type J44.9 [facility] [id number] [place] [address] 83701- 0320 Jun, [facility] [id number] [place] [address] 92808- 6208 Jun, [facility] [id number] [place] [address] 02026- 8524 Jun, [facility] [id number] [place] [address] 24048- 7596 15 May, 2016 Vitamin B 12 deficiency E53.8 ; Essential (primary) hypertension I10 ; Generalized anxiety disorder F41.1 ; Pain in joint, ankle and foot 719.47 ; Arthritis M19.90 ; Chronic obstructive pulmonary disease, unspecified COPD type J44.9 and Encounter for immunization Z23 [facility] [id number] [place] [address] 11266- 2660 Apr, [facility] [id number] [place] [address] 70623- 2599 Apr, [facility] [id number] [place] [address] 80215- 1479 Mar, [facility] [address] 88023- 1745 January, [facility] [id number] [place] [address] 15946- 9990 Dec, [facility] [id number] [place] [address] 11813- 4690 Oct, [facility] [id number] [place] [address] 85000- 7833 Oct, [facility] [id number] [place] [address] 29989- 8423 Oct, Hypertension, benign I10 and Vitamin B 12 deficiency E53.8 [facility] [id number] [place] [address] 01269- 6074 Oct, [facility] [id number] [place] [address] 53338- 0958 Oct, [facility] [id number] [place] [address] 35028- 2251 Oct, Irritable bowel syndrome with diarrhea K58.0 [facility] [id number] [place] [address] 22692- 9976 Oct, [facility] [id number] [place] [address] 60980- 7847 Oct, Vitamin B 12 deficiency E53.8 ; Hypertension, benign I10 and Chronic obstructive pulmonary disease, unspecified COPD type J44.9 [facility] [id number] [place] [address] 16216- 9863 Sep, Irritable bowel syndrome with diarrhea K58.0 ; Hypertension , benign I10 ; Chronic obstructive pulmonary disease, unspecified COPD type J44.9 ; Edema, unspecified type R60.9 ; Vision changes H53.9 and Vitamin B 12 deficiency E53.8 [facility] [address] 70528- 2697 Sep, [facility] [address] 64138- 9511 Jul, Degenerative disc disease 722.6 [facility] [address] 76401- 9704 Jun, Pain in right leg M79.604 ; Encounter for immunization Z23 and Pain of left leg M79.605 [facility] [id number] [place] [address] 76084- 2015 Jun, [facility] [address] 36765- 3809 Jun, [facility] [id number] [place] [address] 58127- 3944 Jun, Degenerative disc disease 722.6 [facility] [id number] [place] [address] 30790- 1542 Jun, [facility] [id number] [place] [address] 99675- 0184 28 May, 2015 Seizures 780.39 and Autonomic peripheral neuropathy 337.9 [facility] [id number] [place] [address] 52892- 4551 18 May, 2015 [facility] [address] 06709- 3364 17 May, 2015 [facility] [id number] [place] [address] 83108- 8195 08 May, 2015 Degenerative disc disease 722.6 [facility] [address] 15409- 4206 May, [facility] [address], [place] [address]- 0802 Mar, [facility] [id number] [place] [address] 22197- 9766 Mar, Degenerative disc disease 722.6 ; Spinal stenosis 724.00 and HTN (hypertension) 401.9 [facility] [id number] [place] [address] 42904- 8916 Feb, Cutaneous horn 702.8 [facility] [id number] [place] [address] 63538- 3925 Feb, Fatigue 780.79 [facility] [id number] [place] [address] 53520- 1506 Feb, Fatigue 780.79 ; Arthritis 716.90 ; Spinal stenosis 724.00 ; Sinusitis 473.9 and Cutaneous horn 702.8 [facility] [address], [place] [address]- 7125 January, [facility] [address] [place] [address] 42624- 9295 Dec, [facility] [id number] [address]- 3337 Dec, [facility] [address], [place] [address]- 3866 Nov, [facility] [address], [place] [address]- 8056 Nov, [facility] [address], [place] [address]- 9456 Oct, [facility] [address], [place] [address]- 7916 Oct, [facility] [address], [place] [address]- 7006 Oct, [facility] [place] [facility] [address] [id number] [place] [address]- 7362 Oct, [facility] [place] [facility] [address] [id number] [place] [address]- 4332 Oct, [facility] [place] [facility] [address] [id number] [place] [address]- 1714 Oct, [facility] [place] [facility] [address] [id number] [place] [address]- 0008 Sep, [facility] [place] [facility] [address] [id number] [place] [address]- 2012 Sep, [facility] [place] [facility] [address] [id number] [place] [address]- 5943 Sep, [facility] [place] [facility] [address] [id number] [place] [address]- 8239 Sep, [facility] [place] [facility] [address] [id number] [place] [address]- 2963 Sep, [facility] [place] [facility] [address] [id number] [place] [address]- 4712 Sep, [facility] [place] [facility] [address] [id number] [place] [address]- 6097 Sep, [facility] [place] [facility] [address] [id number] [place] [address]- 8381 Sep, [facility] [place] [facility] [address] [id number] [place] [address]- 1672 Sep, [facility] [place] [facility] [address] [id number] [place] [address]- 4440 Sep, [facility] [place] [facility] [address] [id number] [place] [address]- 5439 Sep, [facility] [place] [facility] [address] [id number] [place] [address]- 7848 Sep, [facility] [place] [facility] [address] [id number] [place] [address]- 8776 Sep, [facility] [place] [facility] [address] [id number] [place] [address]- 5874 Sep, [facility] [place] [facility] [address] [id number] [place] [address]- 1524 Aug, [facility] [place] [facility] [address] [id number] [place] [address]- 1887 Aug, [facility] [place] [facility] [address] [id number] [place] [address]- 7990 Aug, [facility] [place] [facility] [address] [id number] [place] [address]- 2483 Aug, [facility] [place] [facility] [address] [id number] [place] [address]- 8093 Jul, [facility] [place] [facility] [address] [id number] [place] [address]- 3720 Jul, [facility] [place] [facility] [address] [id number] [place] [address]- 5596 May, [facility] [place] [facility] [address] [id number] [place] [address]- 1895 May, [facility] [place] [facility] [address] [id number] [place] [address]- 5298 May, [facility] [place] [facility] [address] [id number] [place] [address]- 8648 May, [facility] [place] [facility] [address] [id number] [place] [address]- 2267 May, [facility] [place] [facility] [address] [id number] [place] [address]- 2066 May, [facility] [place] [facility] [address] [id number] [place] [address]- 9120 Apr, [facility] [place] [facility] [address] [id number] [place] [address]- 1014 Apr, [facility] [place] [facility] [address] [id number] [place] [address]- 5023 Mar, [facility] [address] [id number] [place] [address]- 9943 Mar, [facility] [place] [facility] [address] [id number] [place] [address]- 4377 Mar, [facility] [place] [facility] [address] [id number] [place] [address]- 0088 Mar, [facility] [place] [facility] [address] [id number] [place] [address]- 9671 Mar, [facility] [place] [facility] [address] [id number] [place] [address]- 5590 Mar, [facility] [place] [facility] [address] [id number] [place] [address]- 7185 Mar, [facility] [place] [facility] [address] [id number] [place] [address]- 4518 Mar, [facility] [place] [facility] [address] [id number] [place] [address]- 2174 Feb, [facility] [place] [facility] [address] [id number] [place] [address]- 6618 Feb, [facility] [place] [facility] [address] [id number] [place] [address]- 8926 January, [facility] [place] [facility] [address] [id number] [place] [address]- 2341 January, [facility] [place] [facility] [address] [id number] [place] [address]- 8140 January, [facility] [place] [facility] [address] [id number] [place] [address]- 8708 January, [facility] [place] [facility] [address] [id number] [place] [address]- 5159 Dec, [facility] [place] [facility] [address] [id number] [place] [address]- 3305 Dec, [facility] [place] [facility] [address] [id number] [place] [address]- 6091 Oct, [facility] [place] [facility] [address] [id number] [place] [address]- 1526 Oct, [facility] [place] [facility] [address] [id number] [place] [address]- 9806 Oct, [facility] [place] [facility] [address] [id number] [place] [address]- 8886 Oct, [facility] [address] [id number] [place] [address]- 1990 Sep, [facility] [address] [id number] [place] [address]- 7042 Sep, [facility] [address] [id number] [place] [address]- 5380 Aug, [facility] [place] [facility] [address] [id number] [place] [address]- 0322 Aug, [facility] [place] [facility] [address] [id number] [place] [address]- 2492 Aug, [facility] [place] [facility] [address] [id number] [place] [address]- 1435 Aug, [facility] [place] [facility] [address] [id number] [place] [address]- 1505 Aug, [facility] [place] [facility] [address] [id number], [place] [address]- 6909 Aug, [facility] [place] [facility] [address] [id number] [place] [address]- 2546 Aug, [facility] [place] [facility] [address] [id number] [place] [address]- 2540 Aug, [facility] [place] [facility] [address] [id number] [place] 7121 Aug, [facility] [place] [facility] [address] [id number] [place] [address]- 9500 Aug, [facility] [place] [facility] [address] [id number] [place] [address]- 9152 Jul, [facility] [place] [facility] [address] [id number] [place] [address]- 9063 Jul, [facility] [place] [facility] [address] [id number] [place] [address]- 8234 Jun, [facility] [place] [facility] [address] [id number] [place] [address]- 1828 Jun, [facility] [place] [facility] [address] [id number] [place] [address] Jun, [facility] [place] [facility] [address] [id number] [place] [address] Jun, [facility] [place] [facility] [address] [id number] [place] [address] Jun, [facility] [place] [facility] [address] [id number] [place] [address] May, [facility] [place] [facility] [address] [id number] [place] [address] 13 May, 2013 [facility] [place] [facility] [address] [id number] [place] [address] 12 May, 2013 [facility] [place] [facility] [address] [id number] [place] [address] 06 May, 2013 [facility] [place] [facility] [address] [id number] [place] [address] 03 May, 2013 [facility] [place] [facility] [address] [id number] [place] [address] Apr, [facility] [place] [facility] [address] [id number] [place] [address] Mar, [facility] [place] [facility] [address] [id number] [place] [address] 15 Mar, 2013 [facility] [place] [facility] [address] [id number] [place] [address] Mar, [facility] [address] [id number] [place] [address] Mar, [facility] [address] [id number] [place] [address] Mar, [facility] [address] [id number] [place] [address] Mar, [facility] [address] [id number] [place] [address] Mar, [facility] [address] [id number] [place] [address] Mar, [facility] [address] [id number] [place] [address] Mar, [facility] [address] [id number] [place] [address] Feb, [facility] [address] [id number] [place] [address] Feb, [facility] [address] [id number] [place] [address] Feb, [facility] [address] [id number] [place] [address] January, [facility] [address] [id number] [place] [address] January, [facility] [address] [id number] [place] [address] January, [facility] [place] [facility] [address] [id number] [place] [address] January, [facility] [place] [facility] [address] [id number] [place] [address] Dec, [facility] [place] [facility] [address] [id number] [place] [address] 17 Dec, 2012 [facility] [address] [id number] [place] [address] Dec, [facility] [place] [facility] [address] [id number] [place] [address] Dec, [facility] [address] [id number] [place] [address] Dec, [facility] [place] [facility] [address] [id number] [place] [address] Dec, [facility] [address] [id number] [place] [address] Nov, [facility] [address] [id number] [place] [address] Oct, [facility] [address] [id number] [place] [address] Aug, [facility] [place] [facility] [address] [id number] [place] [address] Aug, [facility] [address] [id number] [place] [address] Aug, [facility] [place] [facility] [address] [id number] [place] [address] Aug, [facility] [address] [id number] [place] [address] 1991 Aug, [facility] [place] [facility] [address] [id number] [place] [address] Aug, [facility] [place] [facility] [address] [id number] [place] [address] Aug, [facility] [place] [facility] [address] [id number] [place] [address] Aug, [facility] [place] [facility] [address] [id number] [place] [address] Aug, [facility] [place] [facility] [address] [id number] [place] [address] Aug, [facility] [place] [facility] [address] [id number] [place] [address] Aug, [facility] [place] [facility] [address] [id number] [place] [address] Jul, [facility] [place] [facility] [address] [id number] [place] [address] Jul, [facility] [place] [facility] [address] [id number] [place] [address] Jul, [facility] [place] [facility] [address] [id number] [place] [id number], [place] [address] Jul, [facility] [place] [facility] [address] [id number] [place] [address] Jul, [facility] [place] [facility] [address] [id number] [place] [address] Jul, [facility] [place] [facility] [address] [id number] [place] [address] Jun, [facility] [place] [facility] [address] [id number] [place] [address] Jun, [facility] [place] [facility] [address] [id number] [place] [address] May, [facility] [place] [facility] [address] [id number] [place] [address] Apr, [facility] [place] [facility] [address] [id number] [place] [address] Apr, [facility] [place] [facility] [address] [id number] [place] [address] Apr, [facility] [place] [facility] [address] [id number] [place] [address] 160[address] Apr, [facility] [place] [facility] [address] [id number] [place] [address] Apr, [facility] [address] [id number] [place] [address] Mar, [facility] [place] [facility] [address] [id number] [place] [address] Mar, [facility] [place] [facility] [address] [id number] [place] [address] January, [facility] [place] [facility] [address] [id number] [place] [address] January, [facility] [address] [id number] [place] [address] Nov, [facility] [place] [facility] [address] [id number] [place] [address] Oct, [facility] [place] [facility] [address] [id number] [place] [address] 8626 Sep, [facility] [place] [facility] [address] [id number] [place] [address] Sep, [facility] [place] [facility] [address] [id number] [place] [address] 130[address] Sep, [facility] [place] [facility] [address] [id number] [place] [address] Sep, [facility] [place] [facility] [address] [id number] [place] [address] Sep, [facility] [place] [facility] [address] [id number], [place] [address] Sep, [facility] [place] [facility] [address] [id number] [place] [address] Aug, [facility] [place] [facility] [address] [id number] [place] [address] 34[address] Aug, [facility] [place] [facility] [address] [id number] [place] [address] Aug, [facility] [place] [facility] [address] [id number], [place] [address] Aug, [facility] [address] [id number] [place] [address] Aug, [facility] [place] [facility] [address] [id number] [place] [address] Jul, [facility] [place] [facility] [address] [facility] [id number] [place] [address] Jul, [facility] [place] [facility] [address] [id number] [place] [address] Jul, [facility] [place] [facility] [address] [facility] [id number] [place] [address] Jun, [facility] [place] [facility] [address] [facility] [address] [id number] [place] [address] Jun, [facility] [place] [facility] [address] [facility] [id number] [place] [address] Jun, [facility] [place] [facility] [address] [facility] [id number] [place] [address] January, [facility] [place] [facility] [address] [facility] [id number] [place] [address] Dec, [facility] [place] [facility] [address] [facility] [address] [id number] [place] [address] 59[address] Oct, [facility] [place] [facility] [address] [facility] [id number] [place] [address] Oct, [facility] [place] [facility] [address] [facility] [address] [id number], [place] [address] Jun, [facility] [place] [facility] [address] [id number] [place] [address] 47[address] Aug, [facility] [place] [facility] [address] [facility] [address] [id number] [place] [address] Aug, [facility] [place] [facility] [address] [facility] [address] [id number], [place] [address] Jul, [facility] [place] [facility] [address] [facility] [address] [id number] [place] [address] Mar, IMMUNIZATIONS No Known Immunizations SOCIAL HISTORY Never Assessed REASON FOR VISIT Anxiety f/u and PT says it rubens-Suzie [facility] PLAN OF CARE Activity Details Follow Up 2 Months Reason:anxiety Pending Test Mammogram, Bilateral Screening VITAL SIGNS Height 67 in 2018-03-10 Weight 174.8 lbs 2018-03-10 Temperature 98.0 degrees Fahrenheit 2018-03-10 Heart Rate 72 bpm 2018-03-10 Respiratory Rate 20 2018-03-10 BMI 27.37 kg/m2 2018-03-10 Blood pressure systolic 152 mmHg 2018-03-10 Blood pressure diastolic 86 mmHg 2018-03-10 MEDICATIONS Medication Instructions Dosage Frequency Start Date End Date Duration Status Fluticasone Propionate 50 MCG/ACT Nasally 2 times a day 1 spray in each nostril 12h 30 days Active Acidophilus 100 mg Orally Once a day 1 capsule 24h 18 May, 2017 Active ProAir HFA 108 (90 Base) MCG/ACT Inhalation every 6 hrs 2 puffs as needed 6h Active Cetirizine HCl 10 mg Orally Once a day 1 tablet 24h 90 days Active Norvasc 5 MG Orally Once a day 1 tablet 24h Active Advair Diskus 500-50 MCG/DOSE Inhalation Twice a day 1 puffs by Inhalation route 2 times per day 12h 30 Active Guaifenesin 400 mg Orally every 4 hrs 1 tablet as needed 4h 9 Active Dicyclomine HCl 20 mg Orally Four times a day PRN 1 tablet 30 Active Ibuprofen 600 MG Orally every 6 hrs 1 tablet with food or milk as needed 6h Active Colace 100 mg Orally 2 times a day 1 capsule as needed 12h 15 Aug, 2018 90 days Active Albuterol Sulfate (2.5 MG/3ML) 0.083% Inhalation every 4 hrs 3 ml 4h 29 Oct Active Aspirin 325 MG Orally Once a day 1 tablet 24h Active Xanax 0.5 MG Orally 3 times a day as needed 1 tablet Nov, 28 days Active Vitamin D3 5000 UNIT TAKE ONE (1) CAPSULE BY MOUTH ONCE DAILY 30 Active Ranitidine HCl 150 MG Orally Twice a day 1 tablet as needed 12h 90 days Active [place] 5-325 MG Orally every 6 hrs 1 tablet as needed 6h 12 Nov, 2017 28 days Active Omeprazole 20 mg Orally Once a day 1 capsule 24h 90 days Active [place]-3 Fatty Acids 1000 MG Orally Once a day 2 capsules 24h 15 Aug, 2018 90 days Active Gas-X 80 MG Orally 2 times a day 1 tablet as needed 12h Active Enalapril Maleate 20 MG Orally Once a day 1 tablet 24h 23 Nov, 2017 90 days Active Atenolol 100 MG Orally 2 times a day TAKE ONE-HALF TABLET BY MOUTH TWICE DAILY 12h 90 days Active Clonidine HCl 0.1 MG Orally Twice a day 1 tablet at bedtime 12h Not-Taking RESULTS No Results PROCEDURES No Known procedures INSTRUCTIONS MEDICATIONS ADMINISTERED No Known Medications MEDICAL (GENERAL) HISTORY Type Description Date Medical History Hypertension Medical History Chronic Obstructive pulmonary disease diagnosed 2008 in [place]-PFT not done previously Medical History Gastrointestinal disorder [...]
--- OUTSIDE RECORDS SUMMARY | 2018-08-21 15:33 | XMS REPORT ---
Author Author KAITLIN TURNER Organization [facility] Address [address] 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 Active 0252984100652 Problem Agoraphobia with panic attacks F40.01 Active 897159155 Problem COPD with exacerbation J44.1 Active 364644095 Problem Pericardial effusion I31.3 Active 691594008 Problem Pleural effusion on left J90 Active 69882786 Problem Generalized anxiety disorder F41.1 Active 57750744 Problem Chronic obstructive pulmonary disease, unspecified COPD type J44.9 Active 53271160 Problem Hypertension, benign I10 Active 81204512 Problem Oral phase dysphagia R13.11 Active 175582274 Problem Vitamin B 12 deficiency E53.8 Active 72575747 Problem Chronic fatigue R53.82 Active 33762175 ALLERGIES Substance Reaction Event Type Date Status MethylPREDNISolone psychosis Drug Allergy January, Active Ketorolac Tromethamine tingling in lips Drug Allergy January, Active Augmentin 875-125 Mg Tablet Pt states this medication is to harsh on her stomach. Non Drug Allergy January, Active ENCOUNTERS Encounter Location Date Diagnosis [facility] [address] [facility] [id number] [address] Apr, Generalized anxiety disorder F41.1 [facility] [address] [facility] [id number], [place] [address] Apr, Generalized anxiety disorder F41.1 [facility] [address] [address] Apr, Flank pain R10.9 and Chronic prescription benzodiazepine use Z79.899 [facility] [address], [place] [address] 9[address] Mar, Flank pain R10.9 [facility] [id number] [place] [address] 62223- 2844 Mar, [facility] [id number] [place] [address] 96260- 4178 Feb, 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 pectoris I25.10 ; Vitamin B 12 deficiency E53.8 ; Slow transit constipation K59.01 ; Generalized anxiety disorder F41.1 and Breast cancer screening by mammogram Z12.31 [place] [id number] [place] [address] 52431- 0950 Feb, Flank pain R10.9 [facility] [id number] [place] [address] 20294- 6008 January, [facility] [address] [place] [id number] [place] [address] 16845- 0086 January, Chronic obstructive pulmonary disease, unspecified COPD type J44.9 ; Pleural effusion on left J90 ; Pericardial effusion I31.3 and Generalized anxiety disorder F41.1 [facility] [address] [address] 8[address] January, Gastroenteritis K52.9 [facility] [address] [id number] [address] 8714 January, Flank pain R10.9 [facility] [address] [address] January, [facility] [address] [id number] [address] Dec [facility] [id number] [place] [address] 21432- 9747 Dec, [facility] [id number] [place] [address] 52063- 5487 Dec, [facility] [address] [place] [address] [id number] [place] [address] 26457- 8086 Dec, [facility] [address] [place] [id number] [place] [address] 53494- 9396 Dec, [facility] [address] [place] [id number] [place] [address] 86027- 3667 Dec, Flank pain R10.9 [facility] [address] [place] [id number] [place] [address] 39089- 7232 Dec, [facility] [address] [place] [address] [id number] [place] [address] 68770- 1445 Nov, [facility] [address] [place] [address] [id number] [place] [address] 11535- 9501 Nov, [facility] [address] [place] [id number] [place] [address] 69682- 9978 Nov, [facility] [address] [place] [address] [id number] [place] [address] 03462- 0372 Nov, Pericardial effusion I31.3 ; Agoraphobia with panic attacks F40.01 and Vitamin B 12 deficiency E53.8 [facility] [address] [place] [id number] [place] [address] 07603- 9320 Nov, [facility] [address] [place] [address] [id number] [place] [address] 90851- 7806 Nov, Pneumonia of both lungs due to infectious organism, unspecified part of lung J18.9 and Flank pain R10.9 [facility] [address] [place] [id number] [place] [address] 57245- 8972 Nov, Pneumonia of both lungs due to infectious organism, unspecified part of lung J18.9 and Gastroenteritis K52.9 [facility] [address] [place] [address] [id number] [place] [address] 97567- 2171 Oct, Pneumonia of both lungs due to infectious organism, unspecified part of lung J18.9 and Vitamin B 12 deficiency E53.8 [facility] [address] [id number] Oct, [facility] [address] [place] [address] [id number] [place] [address] 70161- 1205 Oct, [facility] [address] 43609- 6194 Oct, [facility] [address] 00883- 4453 Oct, Flank pain R10.9 [facility] [address] 64697- 1802 Oct, Other chronic pain G89.29 and Unspecified abdominal pain R10.9 [facility] [address] 04038- 5921 Sep, Flank pain R10.9 [facility] [address] [place] [address] [id number] [place] [address] 30468- 5735 Sep, [facility] [address] [place] [id number] [place] [address] 75545- 3232 Sep, [facility] [address] [place] [address] [id number] [place] [address] 39633- 8039 Sep, Acute non-recurrent maxillary sinusitis J01.00 [facility] [address] [place] [address] [id number] [place] [address] 49201- 6733 Sep, Acute non-recurrent maxillary sinusitis J01.00 and Vitamin B 12 deficiency E53.8 [facility] [address] [place] [address] [id number] [place] [address] 07123- 5261 Sep, [facility] [address] 63957- 7161 Sep, [facility] [address] 67089- 9649 Sep, [facility] [address] [place] [id number] [place] [address] 10433- 2665 Sep, COPD with exacerbation J44.1 [facility] [address] [place] [id number] [place] [address] 53870- 2660 Sep, Chronic obstructive pulmonary disease, unspecified COPD type J44.9 [facility] [address] 79642- 5353 Aug, Flank pain R10.9 [facility] [address] 02014- 5757 Jul, Flank pain R10.9 and Vitamin B 12 deficiency E53.8 [facility] [address] [place] [id number] [place] [address] 74219- 7366 Jul, [facility] [address] 29671- 8778 Jun, Gastroenteritis K52.9 [facility] [address] [place] [id number] [place] [address] 23992- 7241 May, Gastroenteritis K52.9 and Vitamin B 12 deficiency E53.8 [facility] [address] [place] [id number] [place] [address] 87427- 4067 Apr, Allergic conjunctivitis of left eye H10.12 and Chronic fatigue R53.82 [facility] [address] [place] [id number] [place] [address] 11949- 3121 Apr, Chronic sinusitis, unspecified J32.9 [facility] [address] [place] [id number] [place] [address] 24585- 6157 Apr, [facility] [address] 58522- 7018 Feb, [facility] [address] [place] [id number] [place] [address] 70508- 9014 January, [facility] [address] 52327- 2786 Dec, [facility] [address] [place] [id number] [place] [address] 64891- 8059 Oct, [facility] [address] 28845- 2626 Sep, Oral phase dysphagia R13.11 and Vitamin B 12 deficiency E53.8 [facility] [address] 34240- 0496 Sep, [facility] [address] 09903- 1234 Jul, [facility] [address] 56312- 9952 Jul, [facility] [address] 69792- 0894 Jun, Bronchitis J40 ; Generalized anxiety disorder F41.1 and Chronic obstructive pulmonary disease, unspecified COPD type J44.9 [facility] [address] 75906- 3100 Jun, [facility] [address] 49842- 1367 Jun, [facility] [address] [place] [id number] [place] [address] 61186- 8190 Jun, [facility] [address] 68252- 2850 May, Vitamin B 12 deficiency E53.8 ; Essential (primary) hypertension I10 ; Generalized anxiety disorder F41.1 ; Pain in joint, ankle and foot 719.47 ; Arthritis M19.90 ; Chronic obstructive pulmonary disease, unspecified COPD type J44.9 and Encounter for immunization Z23 [facility] [address] [place] [id number] [place] [address] 86044- 8063 Apr, [facility] [address] 09465- 8012 Apr, [facility] [address] [address]64 Mar, [facility] [address] [place] [id number] [place] [address] 002543- 2066 January, [facility] [id number] [place] [address] 582654- 4767 Dec, [facility] [address] [place] [id number] [place] [address] 20416- 4608 Oct, [facility] [id number] [place] [address] 49167- 9010 Oct, [facility] [address] [place] [id number] [place] [address] 08764- 6800 Oct, Hypertension, benign I10 and Vitamin B 12 deficiency E53.8 [facility] [address] [place] [id number] [place] [address] 43321- 8808 Oct, [facility] [id number] [place] [address] 15094- 3593 Oct, [facility] [address] [place] [id number] [place] [address] 42154- 0341 Oct, Irritable bowel syndrome with diarrhea K58.0 [facility] [address] [place] [id number] [place] [address] 22023- 0988 Oct, [facility] [id number] [place] [address] 11829- 0497 Oct, Vitamin B 12 deficiency E53.8 ; Hypertension, benign I10 and Chronic obstructive pulmonary disease, unspecified COPD type J44.9 [facility] [id number] [place] [address] 07279- 0486 Sep, Irritable bowel syndrome with diarrhea K58.0 ; Hypertension , benign I10 ; Chronic obstructive pulmonary disease, unspecified COPD type J44.9 ; Edema, unspecified type R60.9 ; Vision changes H53.9 and Vitamin B 12 deficiency E53.8 [facility] [address] [address]- 4697 Sep, [facility] [address] [place] [id number] [place] [address] 40766- 3526 Jul, Degenerative disc disease 722.6 [facility] [address] [place] [id number] [place] [address] 60407 2546 Jun, Encounter for immunization Z23 ; Pain in right leg M79.604 and Pain of left leg M79.605 [facility] [address] [place] [id number] [place] [address] 97262 2546 Jun, [facility] [address] [place] [id number] [place] [address] 83999 2546 Jun, [facility] [address] [place] [id number] [place] [address] 20762 2546 Jun, Degenerative disc disease 722.6 [facility] [address] [place] [id number] [place] [address] 35054 2546 Jun, [facility] [address] [place] [id number] [place] [address] 14042 2541 May, Seizures 780.39 and Autonomic peripheral neuropathy 337.9 [facility] [id number] [place] [address] 97019 2546 18 May, 2015 [facility] [address] [place] [id number] [place] [address] 46351 2546 17 May, 2015 [facility] [address] [place] [id number] [place] [address] 75767 2546 08 May, 2015 Degenerative disc disease 722.6 [facility] [address] [place] [id number] [place] [address] 29213 2546 08 May, 2015 [facility] [address], [place] [address] 2546 Mar, [facility] [address] [place] [id number] [place] [address] 77409- 9431 Mar, Degenerative disc disease 722.6 ; Spinal stenosis 724.00 and HTN (hypertension) 401.9 [facility] [address] [place] [id number] [place] [address] 48405- 0231 Feb, Cutaneous horn 702.8 [facility] [address] [place] [id number] [place] [address] 20286- 9290 Feb, Fatigue 780.79 [facility] [address] 550827- 2618 Feb, Fatigue 780.79 ; Arthritis 716.90 ; Spinal stenosis 724.00 ; Sinusitis 473.9 and Cutaneous horn 702.8 [facility] [address] [place] [id number] [place] [address] 74997- 1384 January, [facility] [address] [place] [id number] [place] [address] 19163- 6293 Dec, [facility] [address] [place] [id number] [place] [address] 94355- 8222 Dec, [facility] [address] [place] [address] [id number] [place] [address] 71959- 3544 Nov, [facility] [address] [place] [id number] [place] [address] 97111- 3854 Nov, [facility] [id number] [place] [address] 29902- 8430 Oct, [facility] [address] [place] [id number] [place] [address] 65934- 2798 Oct, [facility] [address] [place] [address] [id number] [place] [address] 28119- 5868 Oct, [facility] [address] [place] [id number] [place] [address] 095628- 8640 Oct, [facility] [address] 6246 Oct, [facility] [address] [place] [id number] [place] [address]- 7553 Oct, [facility] [address] [id number] [place] [address]- 4382 Sep, [facility] [place] [facility] [address] [id number] [place] [address]- 0903 Sep, [facility] [address] [id number] [place] [address]- 4914 Sep, [facility] [address] [id number] [place] [address]- 0608 Sep, [facility] [address] [id number] [place] [address]- 1919 Sep, [facility] [address] [id number] [place] [address]- 2163 Sep, [facility] [address] [id number] [place] [address]- 2250 Sep, [facility] [address] [id number] [place] [address]- 7316 Sep, [facility] [address] [id number] [place] [address]- 0129 Sep, [facility] [address] [id number] [place] [address]- 6745 Sep, [facility] [place] [facility] [address] [id number] [place] [address]- 1651 Sep, [facility] [address] [id number] [place] [address]- 6789 Sep, [facility] [place] [facility] [address] [id number] [place] [address]- 8789 Sep, [facility] [place] [facility] [address] [id number] [place] [address]- 5546 Sep, [facility] [address] [id number] [place] 7736 Aug, [facility] [place] [facility] [address] [id number] [place] [address]- 4013 Aug, [facility] [place] [facility] [address] [id number] [place] [address]- 4090 Aug, [facility] [place] [facility] [address] [id number] [place] [address]- 7527 Aug, [facility] [place] [facility] [address] [id number] [place] [address]- 8525 Jul, [facility] [place] [facility] [address] [id number] [place] [address]- 8773 Jul, [facility] [place] [facility] [address] [id number] [place] [address]- 2930 May, [facility] [place] [facility] [address] [id number] [place] [address]- 8210 May, [facility] [place] [facility] [address] [id number] [place] [address]- 3066 May, [facility] [place] [facility] [address] [id number] [place] [address]- 2806 May, [facility] [place] [facility] [address] [id number] [place] [address]- 4953 May, [facility] [place] [facility] [address] [id number] [place] [address]- 0328 May, [facility] [place] [facility] [address] [id number] [place] [address]- 7058 Apr, [facility] [place] [facility] [address] [id number] [place] [address]- 6533 Apr, [facility] [place] [facility] [address] [id number] [place] 8956 Mar, [facility] [place] [facility] [address] [id number] [place] 2787 Mar, [facility] [place] [facility] [address] [id number] [address]- 3967 Mar, [facility] [place] [facility] [address] [id number] [place] [address]- 0746 Mar, [facility] [place] [facility] [address] [id number] [place] [address]- 7422 Mar, [facility] [place] [facility] [address] [id number] [place] [address]- 6993 Mar, [facility] [place] [facility] [address] [id number] [place] [address]- 5683 Mar, [facility] [place] [facility] [address] [id number] [place] [address]- 9839 Mar, [facility] [place] [facility] [address] [id number] [place] [address]- 2967 Feb, [facility] [place] [facility] [address] [id number] [place] [address]- 3279 Feb, [facility] [place] [facility] [address] [id number] [place] [address]- 0173 January, [facility] [place] [facility] [address] [id number] [place] [address]- 6586 January, [facility] [place] [facility] [address] [id number] [place] [address]- 7506 January, [facility] [place] [facility] [address] [id number] [place] [address]- 7770 January, [facility] [place] [facility] [address] [id number] [place] [address]- 9989 Dec, [facility] [place] [facility] [address] [id number] [place] [address]- 3956 Dec, [facility] [place] [facility] [address] [id number] [place] [address]- 4589 Oct, [facility] [place] [facility] [address] [id number] [place] [address]- 4352 Oct, [facility] [place] [facility] [address] [id number] [place] [address]- 9336 Oct, [facility] [address] [id number] [place] 5635 Oct, [facility] [address] [id number] [place] [address]- 8019 Sep, [facility] [address] [id number] [place] [address]- 9621 Sep, [facility] [address] [id number] [place] [address]- 0787 Aug, [facility] [address] [id number] [place] [address]- 3346 Aug, [facility] [address] [id number] [place] [address]- 9798 Aug, [facility] [address] [id number] [place] [address]- 8672 Aug, [facility] [address] [id number] [place] [address]- 3138 Aug, [facility] [address] [id number] [place] [address]- 4938 Aug, [facility] [address] [id number] [place] [address]- 5267 Aug, [facility] [place] [facility] [address] [id number] [place] [address]- 4126 Aug, [facility] [place] [facility] [address] [id number] [place] [address]- 3151 Aug, [facility] [place] [facility] [address] [id number] [place] [address]- 0030 Aug, [facility] [place] [facility] [address] [id number] [place] [address]- 8018 Jul, [facility] [place] [facility] [address] [id number] [place] [address]- 0188 Jul, [facility] [place] [facility] [address] [id number] [place] 2960 Jun, [facility] [place] [facility] [address] [id number] [place] [address]- 5122 Jun, [facility] [place] [facility] [address] [id number] [place] [address]- 2252 Jun, [facility] [place] [facility] [address] [id number] [place] [address] Jun, [facility] [place] [facility] [address] [id number] [place] [address] Jun, [facility] [place] [facility] [address] [id number] [place] [address] May, [facility] [place] [facility] [address] [id number] [place] [address] May, [facility] [place] [facility] [address] [id number] [place] [address] 12 May, 2013 [facility] [place] [facility] [address] [id number] [place] [address] 06 May, 2013 [facility] [place] [facility] [address] [id number] [place] [address] May, [facility] [place] [facility] [address] [id number] [place] [address] Apr, [facility] [place] [facility] [address] [id number] [place] [address] Mar, [facility] [place] [facility] [address] [id number] [place] [address] Mar, [facility] [place] [facility] [address] [id number] [place] [address] Mar, [facility] [place] [facility] [address] [id number] [place] [address] Mar, [facility] [place] [facility] [address] [id number] [place] [address] 15 Mar, 2013 [facility] [address] [id number] [place] [address] Mar, [facility] [address] [id number] [place] [address] Mar, [facility] [address] [id number] [place] [address] Mar, [facility] [address] [id number] [place] [address] Mar, [facility] [address] [id number] [place] [address] Feb, [facility] [address] [id number] [place] [address] Feb, [facility] [address] [id number] [place] [address] Feb, [facility] [address] [id number] [place] [address] January, [facility] [address] [id number] [place] [address] January, [facility] [address] [id number] [place] [address] January, [facility] [address] [id number] [place] [address] January, [facility] [address] [id number] [place] [address] 18 Dec, 2012 [facility] [address] [id number] [place] [address] Dec, [facility] [address] [id number] [place] [address] 12 Dec, 2012 [facility] [address] [id number] [place] [address] Dec, [facility] [address] [id number] [place] [address] Dec, [facility] [place] [facility] [address] [id number] [place] [address] Dec, [facility] [address] [id number] [place] [address] Nov, [facility] [place] [facility] [address] [id number] [place] [address] Oct, [facility] [address] [id number] [place] [address] Aug, [facility] [place] [facility] [address] [id number] [place] [address] Aug, [facility] [place] [facility] [address] [id number] [place] [address] Aug, [facility] [address] [id number] [place] [address] Aug, [facility] [place] [facility] [address] [id number] [place] [address] Aug, [facility] [place] [facility] [address] [id number] [place] [address] Aug, [facility] [place] [facility] [address] [address] [id number] [place] [address] Aug, [facility] [place] [facility] [address] [id number] [place] [address] Aug, [facility] [place] [facility] [address] [id number] [place] [address] Aug, [facility] [place] [facility] [address] [id number] [place] [address] Aug, [facility] [place] [facility] [address] [id number] [place] [address] Aug, [facility] [place] [facility] [address] [id number] [place] [address] Jul, [facility] [place] [facility] [address] [id number] [place] [address] Jul, [facility] [place] [facility] [address] [id number] [place] [address] Jul, [facility] [place] [facility] [address] [id number] [place] [address] Jul, [facility] [place] [facility] [address] [id number] [place] [address] Jul, [facility] [place] [facility] [address] [id number] [place] [address] Jul, [facility] [place] [facility] [address] [id number] [place] [address] Jun, [facility] [place] [facility] [address] [id number] [place] [address] Jun, [facility] [place] [facility] [address] [id number] [place] [address] May, [facility] [place] [facility] [address] [id number] [place] [address] Apr, [facility] [place] [facility] [address] [id number] [place] [address] Apr, [facility] [place] [facility] [address] [id number] [place] [address] Apr, [facility] [place] [facility] [address] [id number] [place] [address] Apr, [facility] [place] [facility] [address] [id number] [place] [address] Apr, [facility] [place] [facility] [address] [id number] [place] [address] Mar, [facility] [place] [facility] [address] [id number] [place] [address] Mar, [facility] [place] [facility] [address] [id number] [place] [address] January, [facility] [address] [id number] [place] [address] January, [facility] [place] [facility] [address] [id number] [place] [address] Nov, [facility] [address] [id number] [place] [address] Oct, [facility] [address] [id number] [place] [address] Sep, [facility] [address] [id number] [place] [address] Sep, [facility] [address] [id number] [place] [address] Sep, [facility] [address] [id number] [place] [address] Sep, [facility] [address] [id number] [place] [address] Sep, [facility] [address] [id number] [place] [address] Sep, [facility] [address] [id number] [place] [address] Aug, [facility] [address] [id number] [place] [address] Aug, [facility] [place] [facility] [address] [id number] [place] [address] Aug, [facility] [place] [facility] [address] [id number] [place] [address] Aug, [facility] [place] [facility] [address] [id number] [place] [address] Aug, [facility] [place] [facility] [address] [id number] [place] [address] Jul, [facility] [address] [id number] [address] Jul, [facility] [id number] [place] [address] Jul, [facility] [id number] [place] [address] Jun, [facility] [id number] [address] Jun, [facility] [id number] [place] [address] Jun, [facility] [id number] [place] [address] January, [facility] [id number] [place] [address] Dec, [facility] [id number] [place] [address] Oct, [facility] [id number] [place] [address] Oct, [facility] [id number] [place] [address] Jun, [facility] [id number] [place] [address] Aug, [facility] [id number] [place] [address] Aug, [facility] [address] [id number] [address] Jul, [facility] [id number] [place] [address] Mar, IMMUNIZATIONS No Known Immunizations SOCIAL HISTORY Never Assessed REASON FOR VISIT Anxiety WB-MA, Patient lacks energy and is constantly tired, Blood pressure and heart rate concerns, Patient is short on xanax pills (84 instead of 90), Patient had CT scan on 01/21/18 and had air pockets on her lungs PLAN OF CARE Activity Details Follow Up 4 Weeks Reason:COPD/anxiety VITAL SIGNS Height 67 in 2018-02-10 Weight 166 lbs 2018-02-10 Temperature 97.6 degrees Fahrenheit 2018-02-10 Heart Rate 70 bpm 2018-02-10 Respiratory Rate 18 2018-02-10 Oximetry on room air:98 % 2018-02-10 BMI 26.00 kg/m2 2018-02-10 Blood pressure systolic 140 mmHg 2018-02-10 Blood pressure diastolic 96 mmHg 2018-02-10 MEDICATIONS Medication Instructions Dosage Frequency Start Date End Date Duration Status [place]-3 Fatty Acids 1000 MG Orally Once a day 2 capsules 24h Active Clonidine HCl 0.1 MG Orally Twice a day 1 tablet at bedtime 12h Active Gas-X 80 MG Orally 2 times a day 1 tablet as needed 12h Not-Taking Cetirizine HCl 10 mg Orally Once a day 1 tablet 24h 90 days Active Dicyclomine HCl 20 mg Orally Four times a day PRN 1 tablet 30 Active Omeprazole 20 mg Orally Once a day 1 capsule 24h 90 days Active Ibuprofen 600 MG Orally every 6 hrs 1 tablet with food or milk as needed 6h Not-Taking Xanax 0.5 MG Orally 3 times a day as needed 1 tablet Nov, 28 days Active Norvasc 5 MG Orally Once a day 1 tablet 24h Active Advair Diskus 500-50 MCG/DOSE Inhalation Twice a day 1 puffs by Inhalation route 2 times per day 12h 30 Active Enalapril Maleate 20 MG Orally Once a day 1 tablet 24h Nov, 90 days Active ProAir HFA 108 (90 Base) MCG/ACT Inhalation every 6 hrs 2 puffs as needed 6h Active Guaifenesin 400 mg Orally every 4 hrs 1 tablet as needed 4h 9 Not- Taking Albuterol Sulfate (2.5 MG/3ML) 0.083% Inhalation every 4 hrs 3 ml 4h Oct Not-Taking Fluticasone Propionate 50 MCG/ACT Nasally 2 times a day 1 spray in each nostril 12h 30 days Active Ranitidine HCl 150 MG Orally Twice a day 1 tablet as needed 12h 90 days Active Vitamin D3 5000 UNIT TAKE ONE (1) CAPSULE BY MOUTH ONCE DAILY 30 Active Aspirin 325 MG Orally Once a day 1 tablet 24h Active [place] 5-325 MG Orally every 6 hrs 1 tablet as needed 6h 12 Nov, 2017 28 days Not-Taking Acidophilus 100 mg Orally Once a day 1 capsule 24h 18 May, 2017 Active Cyanocobalamin 1000 MCG/ML Injection once monthly 1ML Active Colace 100 mg Orally 2 times a day 1 capsule as needed 12h Active Atenolol 100 MG Orally 2 times a day TAKE ONE-HALF TABLET BY MOUTH TWICE DAILY 12h 90 days Active RESULTS No Results PROCEDURES No Known procedures INSTRUCTIONS MEDICATIONS ADMINISTERED No Known Medications MEDICAL (GENERAL) HISTORY Type Description Date Medical History Hypertension Medical History Chronic Obstructive pulmonary disease diagnosed 2008 in [place]-PFT not done previously Medical History Gastrointestinal disorder [...]
--- OUTSIDE RECORDS SUMMARY | 2018-08-21 15:33 | XMS REPORT ---
Author Author KAITLIN TURNER Organization [facility] Address [address] [place] [address] Care Team Providers Care Valve Mechanic Name Role Phone KAITLIN TURNER Unavailable PROBLEMS Type Condition ICD9-CM Code KFL97-TQ Code Onset Dates Condition Status SNOMED Code Problem Chronic sinusitis, unspecified J32.9 Active 00804505 Problem Other chronic pain G89.29 Active 72353981 Problem Gastroesophageal reflux disease without esophagitis K21.9 Active 842884271 Problem Slow transit constipation K59.01 Active 02621469 Problem Coronary artery disease involving [facility] [place] coronary artery of [facility] [place] heart without angina pectoris I25.10 Active 9011960813138 Problem Agoraphobia with panic attacks F40.01 Active 602425747 Problem COPD with exacerbation J44.1 Active 285524819 Problem Pericardial effusion I31.3 Active 258379034 Problem Pleural effusion on left J90 Active 04592619 Problem Generalized anxiety disorder F41.1 Active 94801912 Problem Chronic obstructive pulmonary disease, unspecified COPD type J44.9 Active 06507046 Problem Hypertension, benign I10 Active 65733376 Problem Oral phase dysphagia R13.11 Active 975693687 Problem Vitamin B 12 deficiency E53.8 Active 72915479 Problem Chronic fatigue R53.82 Active 58560699 ALLERGIES No Information ENCOUNTERS Encounter Location Date Diagnosis [facility] [id number], [place] [address] May, [facility] [id number], [place] [address] Apr, Flank pain R10.9 [facility] [id number], [place] [address] Apr, Generalized anxiety disorder F41.1 [facility] [id number], [place] [address] Apr, Generalized anxiety disorder F41.1 [facility] [id number], [place] [address] 95[address] Apr, Flank pain R10.9 and Chronic prescription benzodiazepine use Z79.899 [facility] [address], [place] [address] Mar, Flank pain R10.9 [facility] [id number] [place] [address] 56737- 2078 Mar, [facility] [address], [place] [address] Feb, Coronary artery disease involving [facility] ira coronary artery of [facility] ir[place] heart without angina pectoris I25.10 ; Vitamin B 12 deficiency E53.8 ; Slow transit constipation K59.01 ; Generalized anxiety disorder F41.1 and Breast cancer screening by mammogram Z12.31 [place] [address], [place] [address] Feb, Flank pain R10.9 [facility] [address], [place] [address] January, [place] [address], [place] [address] January, Chronic obstructive pulmonary disease, unspecified COPD type J44.9 ; Pleural effusion on left J90 ; Pericardial effusion I31.3 and Generalized anxiety disorder F41.1 [place] [address], [place] [address] 80[address] January, Gastroenteritis K52.9 [facility] [id number], [place] [address] 8[address] January, Flank pain R10.9 [facility] [id number], [place] [address] January, [facility] [address] [id number] [place] [address] Dec [facility] [address], [place] [address] 16 Dec, 2017 [facility] [address], [place] [address] 4697 Dec, [facility] [address], [place] [address] 5060 Dec, [facility] [id number] [place] [address] 20546- 5620 Dec, [facility] [id number] [place] [address] 38555- 7508 Dec, Flank pain R10.9 [facility] [id number] [place] [address] 35765- 7752 Dec, [facility] [id number] [place] [address] 40633- 5169 Nov, [facility] [id number] [place] [address] 02243- 6991 Nov, [facility] [id number] [place] [address] 94442- 7692 Nov, [facility] [id number] [place] [address] 27363- 0767 Nov, Pericardial effusion I31.3 ; Agoraphobia with panic attacks F40.01 and Vitamin B 12 deficiency E53.8 [facility] [address], [place] [address] 484[address] Nov, [facility] [address], [place] [address] Nov, Pneumonia of both lungs due to infectious organism, unspecified part of lung J18.9 and Flank pain R10.9 [facility] [address], [place] [address] 7[address] Nov, Pneumonia of both lungs due to infectious organism, unspecified part of lung J18.9 and Gastroenteritis K52.9 [facility] [id number] [place] [address] 55399- 8202 Oct, Pneumonia of both lungs due to infectious organism, unspecified part of lung J18.9 and Vitamin B 12 deficiency E53.8 [facility] [id number] [place] [address] [id number] Oct, [facility] [id number] [place] [address] 18068- 8402 Oct, [facility] [id number] [place] [address] 78152- 1786 Oct, [facility] [id number] [place] [address] 67831- 9505 Oct, Flank pain R10.9 [facility] [id number] [place] [address] 15660- 1175 Oct, Other chronic pain G89.29 and Unspecified abdominal pain R10.9 [facility] [id number] [place] [address] 36024- 8073 Sep, Flank pain R10.9 [facility] [id number] [place] [address] 33403- 8990 Sep, [facility] [id number] [place] [address] 23168- 9957 Sep, [facility] [address] [place] [address] 97046- 4992 Sep, Acute non-recurrent maxillary sinusitis J01.00 [facility] [address] [place] [address] 12699- 4672 Sep, Acute non-recurrent maxillary sinusitis J01.00 and Vitamin B 12 deficiency E53.8 [facility] [address] [place] [address] 37565- 8338 Sep, [facility] [id number] [place] [address] 33287- 0242 Sep, [facility] [address] 16784- 5474 Sep, [place] [address] 16693- 6083 Sep, COPD with exacerbation J44.1 [place] [address] 44334- 4709 Sep, Chronic obstructive pulmonary disease, unspecified COPD type J44.9 [place] [address] 50068- 2790 Aug, Flank pain R10.9 [place] [address] 34470- 7187 Jul, Flank pain R10.9 and Vitamin B 12 deficiency E53.8 [place] [address] 79854- 5464 Jul, [place] [address] 84934- 0924 Jun, Gastroenteritis K52.9 [place] [address] 15304- 7832 May, Gastroenteritis K52.9 and Vitamin B 12 deficiency E53.8 [place] [id number] [place] [address] 01221- 0441 Apr, Allergic conjunctivitis of left eye H10.12 and Chronic fatigue R53.82 [place] [id number] [place] [address] 96590- 0298 Apr, Chronic sinusitis, unspecified J32.9 [place] [address] 07511- 2004 Apr, [place] [address] 49652- 1491 Feb, [place] [address] 04798- 2513 January, [place] [id number] [place] [address] 87173- 8532 Dec, [place] [id number] [place] [address] 15792- 8242 Oct, [facility] [id number] [place] [address] 40272- 5923 Sep, Oral phase dysphagia R13.11 and Vitamin B 12 deficiency E53.8 [place] [address] 62494- 1844 Sep, [place] [id number] [place] [address] 19531- 3358 Jul, [place] [address] 79308- 0122 Jul, [place] [address] 35791- 4571 Jun, Bronchitis J40 ; Generalized anxiety disorder F41.1 and Chronic obstructive pulmonary disease, unspecified COPD type J44.9 [place] [id number] [place] [address] 40211- 1007 Jun, [place] [id number] [place] [address] 50824- 1897 Jun, [place] [id number] [place] [address] 83858- 8101 Jun, [place] [id number] [place] [address] 39839- 1253 May, Vitamin B 12 deficiency E53.8 ; Essential (primary) hypertension I10 ; Generalized anxiety disorder F41.1 ; Pain in joint, ankle and foot 719.47 ; Arthritis M19.90 ; Chronic obstructive pulmonary disease, unspecified COPD type J44.9 and Encounter for immunization Z23 [place] [id number] [place] [address] 66978- 3295 Apr, [place] [id number] [place] [address] 43877- 1288 Apr, [facility] [address], [place] [address]- 3482 Mar, [facility] [id number] [place] [address] 61595- 1485 January, [facility] [address] 0624 Dec, [facility] [id number] [place] [address] 23820- 9078 Oct, [facility] [id number] [place] [address] 42975- 1602 Oct, [facility] [address] [place] [address] 91332- 8820 Oct, Hypertension, benign I10 and Vitamin B 12 deficiency E53.8 [facility] [address], [place] [address]- 3004 Oct, [facility] [address], [place] [address]- 8094 Oct, [facility] [address], [place] [address]- 3755 Oct, Irritable bowel syndrome with diarrhea K58.0 [place] [address], [place] [address]- 2109 Oct, [facility] [address], [place] [address]- 0882 Oct, Vitamin B 12 deficiency E53.8 ; Hypertension, benign I10 and Chronic obstructive pulmonary disease, unspecified COPD type J44.9 [facility] [address], [place] [address]- 0282 Sep, Irritable bowel syndrome with diarrhea K58.0 ; Hypertension , benign I10 ; Chronic obstructive pulmonary disease, unspecified COPD type J44.9 ; Edema, unspecified type R60.9 ; Vision changes H53.9 and Vitamin B 12 deficiency E53.8 [facility] [id number] [place] [address] 91399- 0756 Sep, [facility] [id number] [place] [address] 71153- 2227 Jul, Degenerative disc disease 722.6 [facility] [address] 52719- 5210 Jun, Pain in right leg M79.604 ; Encounter for immunization Z23 and Pain of left leg M79.605 [facility] [id number] [place] [address] 75686- 7746 Jun, [facility] [address] 40257- 1686 Jun, [facility] [id number] [place] [address] 49863- 1783 Jun, Degenerative disc disease 722.6 [facility] [id number] [place] [address] 07078- 5838 Jun, [facility] [id number] [place] [address] 70095- 8303 May, Seizures 780.39 and Autonomic peripheral neuropathy 337.9 [facility] [id number] [place] [address] 09971- 6886 18 May, 2015 [facility] [id number] [place] [address] 16976 2544 17 May, 2015 [facility] [id number] [place] [address] 72573- 2545 08 May, 2015 Degenerative disc disease 722.6 [facility] [id number] [place] [address] 89673- 2546 08 May, 2015 [facility] [id number] [place] [address] 81629- 0554 Mar, [facility] [address] [place] [address]- 0636 Mar, Degenerative disc disease 722.6 ; Spinal stenosis 724.00 and HTN (hypertension) 401.9 [facility] [id number] [place] [address] 12936- 2742 Feb, Cutaneous horn 702.8 [facility] [id number] [place] [address] 97334- 7705 Feb, Fatigue 780.79 [facility] [id number] [place] [address] 03864 2540 Feb, Fatigue 780.79 ; Arthritis 716.90 ; Spinal stenosis 724.00 ; Sinusitis 473.9 and Cutaneous horn 702.8 [facility] [id number] [place] [address] 74181- 5549 January, [facility] [id number] [place] [address] 51441- 5507 Dec, [facility] [id number] [place] [address] 69374- 8847 Dec, [facility] [id number] [place] [address] 54317- 2611 Nov, [facility] [id number] [place] [address] 01453- 7482 Nov, [facility] [id number] [place] [address] 48036- 6789 Oct, [facility] [id number] [place] [address] 54179- 2546 Oct, [facility] [id number] [place] [address] 41417- 2333 Oct, [facility] [id number] [place] [address] 481241- 8132 Oct, [facility] [id number] [place] [address] 47392- 7416 Oct, [facility] [place] [facility] [address] [id number] [place] [address]- 7654 Oct, [facility] [place] [facility] [address] [id number] [place] [address]- 7654 Sep, [facility] [place] [facility] [address] [id number] [place] [address]- 2980 Sep, [facility] [place] [facility] [address] [id number] [place] [address]- 1165 Sep, [facility] [place] [facility] [address] [id number] [place] [address]- 9639 Sep, [facility] [place] [facility] [address] [id number] [place] [address]- 1032 Sep, [facility] [place] [facility] [address] [id number] [place] [address]- 8873 Sep, [facility] [place] [facility] [address] [id number] [place] [address]- 1016 Sep, [facility] [place] [facility] [address] [id number] [place] [address]- 9443 Sep, [facility] [place] [facility] [address] [id number], [place] [address]- 8134 Sep, [facility] [place] [facility] [address] [id number], [place] [address]- 6349 Sep, [facility] [place] [facility] [address] [id number], [place] [address]- 7095 Sep, [facility] [place] [facility] [address] [id number], [place] [address]- 4722 Sep, [facility] [place] [facility] [address] [id number], [place] [address]- 6492 Sep, [facility] [place] [facility] [address] [id number], [place] [address]- 2197 Sep, [facility] [place] [facility] [address] [id number], [place] [address]- 3614 Aug, [facility] [place] [facility] [address] [id number] [place] [address]- 0907 Aug, [facility] [place] [facility] [address] [id number] [place] [address]- 4975 Aug, [facility] [place] [facility] [address] [id number] [place] [address]- 7199 Aug, [facility] [place] [facility] [address] [id number] [place] [address]- 1061 Jul, [facility] [place] [facility] [address] [id number] [place] [address]- 9996 Jul, [facility] [place] [facility] [address] [id number] [place] [address]- 8356 May, [facility] [place] [facility] [address] [id number] [place] [address]- 4862 May, [facility] [place] [facility] [address] [id number] [place] [address]- 9542 May, [facility] [place] [facility] [address] [id number] [place] [address]- 9526 May, [facility] [place] [facility] [address] [id number] [place] [address]- 3733 May, [facility] [place] [facility] [address] [id number] [place] [address]- 8226 May, [facility] [place] [facility] [address] [id number] [place] [address]- 2612 Apr, [facility] [place] [facility] [address] [id number] [place] [address]- 6439 Apr, [facility] [place] [facility] [address] [id number] [place] 8231 Mar, [facility] [place] [facility] [address] [id number] [place] 7975 Mar, [facility] [place] [facility] [address] [id number] [place] [address]- 4635 Mar, [facility] [place] [facility] [address] [id number] [place] [address]- 6551 Mar, [facility] [place] [facility] [address] [id number] [place] [address]- 5184 Mar, [facility] [place] [facility] [address] [id number] [place] [address]- 0774 Mar, [facility] [place] [facility] [address] [id number] [place] [address]- 4346 Mar, [facility] [place] [facility] [address] [id number] [place] [address]- 6733 Mar, [facility] [place] [facility] [address] [id number] [place] [address]- 1073 Feb, [facility] [place] [facility] [address] [id number] [place] [address]- 8588 Feb, [facility] [place] [facility] [address] [id number] [place] [address]- 1331 January, [facility] [place] [facility] [address] [id number] [place] [address]- 7419 January, [facility] [place] [facility] [address] [id number] [place] [address]- 5392 January, [facility] [place] [facility] [address] [id number] [place] [address]- 2108 January, [facility] [place] [facility] [address] [id number] [place] [address]- 5051 Dec, [facility] [place] [facility] [address] [id number] [place] [address]- 7031 Dec, [facility] [place] [facility] [address] [id number] [place] [address]- 7446 Oct, [facility] [place] [facility] [address] [id number] [place] [address]- 3245 Oct, [facility] [place] [facility] [address] [id number] [place] [address]- 3408 Oct, [facility] [place] [facility] [address] [id number] [place] [address]- 4956 Oct, [facility] [place] [facility] [address] [id number] [place] [address]- 6104 Sep, [facility] [place] [facility] [address] [id number] [place] [address]- 1670 Sep, [facility] [place] [facility] [address] [id number] [place] [address]- 5712 Aug, [facility] [place] [facility] [address] [id number] [place] [address]- 8552 Aug, [facility] [place] [facility] [address] [id number] [place] [address]- 5064 Aug, [facility] [place] [facility] [address] [id number] [place] [address]- 0837 Aug, [facility] [place] [facility] [address] [id number] [place] [address]- 5522 Aug, [facility] [place] [facility] [address] [id number] [place] [address]- 5146 Aug, [facility] [place] [facility] [address] [id number] [place] [address]- 5844 Aug, [facility] [place] [facility] [address] [id number] [place] [address]- 6779 Aug, [facility] [place] [facility] [address] [id number] [place] 6520 Aug, [facility] [place] [facility] [address] [id number] [place] 0232 Aug, [facility] [place] [facility] [address] [id number] [place] 0173 Jul, [facility] [place] [facility] [address] [id number] [place] [address]- 5834 Jul, [facility] [address] [id number] [place] [address]- 1581 Jun, [facility] [place] [facility] [address] [id number] [place] [address]- 7951 Jun, [facility] [address] [id number] [place] [address]- 1834 Jun, [facility] [place] [facility] [address] [id number] [place] [address]- 9224 Jun, [facility] [address] [id number] [place] [address]- 9441 Jun, [facility] [place] [facility] [address] [id number] [place] [address]- 7714 May, [facility] [place] [facility] [address] [id number] [place] [address]- 3199 13 May, 2013 [facility] [address] [id number] [place] [address]- 3072 12 May, 2013 [facility] [place] [facility] [address] [id number] [place] [address]- 2396 06 May, 2013 [facility] [address] [id number] [place] [address]- 4557 03 May, 2013 [facility] [place] [facility] [address] [id number] [place] [address] Apr, [facility] [place] [facility] [address] [id number] [place] [address] Mar, [facility] [place] [facility] [address] [id number] [place] [address] Mar, [facility] [place] [facility] [address] [id number] [place] [address] Mar, [facility] [place] [facility] [address] [id number] [place] [address] Mar, [facility] [address] [id number] [place] [address] Mar, [facility] [place] [facility] [address] [id number] [place] [address] Mar, [facility] [address] [id number] [place] [address] Mar, [facility] [place] [facility] [address] [id number] [place] [address] Mar, [facility] [address] [id number] [place] [address] Mar, [facility] [place] [facility] [address] [id number] [place] [address] Feb, [facility] [place] [facility] [address] [id number] [place] [address] Feb, [facility] [address] [id number] [place] [address] Feb, [facility] [place] [facility] [address] [id number] [place] [address] January, [facility] [place] [facility] [address] [id number] [place] [address] January, [facility] [place] [facility] [address] [id number] [place] [address] January, [facility] [place] [facility] [address] [id number], [place] [address] January, [facility] [place] [facility] [address] [id number] [place] [address] Dec, [facility] [place] [facility] [address] [id number] [place] [address] Dec, [facility] [place] [facility] [address] [id number] [place] [address] Dec, [facility] [place] [facility] [address] [id number], [place] [address] 10 Dec, 2012 [facility] [address] [id number] [place] [address] Dec, [facility] [address] [id number] [place] [address] Dec, [facility] [address] [facility] [id number] [place] [address] Nov, [facility] [address] [id number] [place] [address] Oct, [facility] [address] [id number] [place] [address] Aug, [facility] [address] [id number] [place] [address] Aug, [facility] [address] [facility] [id number] [place] [address] Aug, [facility] [address] [id number] [place] [address] Aug, [facility] [address] [id number] [place] [address] Aug, [facility] [address] [facility] [id number] [place] [address] Aug, [facility] [address] [id number] [place] [address] Aug, [facility] [place] [facility] [address] [id number] [place] [address] Aug, [facility] [address] [id number] [place] [address] 06 Aug, 2012 [facility] [address] [id number] [place] [address] Aug, [facility] [address] [facility] [id number] [place] [address] Aug, [facility] [place] [facility] [address] [id number] [place] [address] Jul, [facility] [place] [facility] [address] [id number] [place] [address] Jul, [facility] [place] [facility] [address] [id number] [place] [address] Jul, [facility] [place] [facility] [address] [id number] [place] [address] Jul, [facility] [place] [facility] [address] [id number] [place] [address] Jul, [facility] [place] [facility] [address] [id number] [place] [address] Jul, [facility] [place] [facility] [address] [id number] [place] [address] Jun, [facility] [place] [facility] [address] [id number] [place] [address] Jun, [facility] [place] [facility] [address] [id number] [place] [address] May, [facility] [place] [facility] [address] [id number] [place] [address] Apr, [facility] [place] [facility] [address] [id number] [place] [address] Apr, [facility] [place] [facility] [address] [id number] [place] [address] Apr, [facility] [place] [facility] [address] [id number] [place] [address] Apr, [facility] [place] [facility] [address] [id number] [place] [address] Apr, [facility] [place] [facility] [address] [id number] [place] [address] Mar, [facility] [place] [facility] [address] [id number] [place] [address] Mar, [facility] [address] [id number] [place] [address] January, [facility] [place] [facility] [address] [id number] [place] [address] January, [facility] [place] [facility] [address] [id number] [place] [address] Nov, [facility] [place] [facility] [address] [id number] [place] [address] Oct, [facility] [place] [facility] [address] [id number] [place] [address] Sep, [facility] [place] [facility] [address] [id number] [place] [address] Sep, [facility] [place] [facility] [address] [id number] [place] [address] Sep, [facility] [place] [facility] [address] [id number] [place] [address] Sep, [facility] [place] [facility] [address] [id number] [place] [address] Sep, [facility] [place] [facility] [address] [id number] [place] [address] Sep, [facility] [place] [facility] [address] [id number] [place] [address] Aug, [facility] [place] [facility] [address] [id number], [place] [address] Aug, [facility] [place] [facility] [address] [id number] [place] [address] Aug, [facility] [place] [facility] [address] [id number] [place] [address] Aug, [facility] [place] [facility] [address] [id number] [place] [address] Aug, [facility] [place] [facility] [id number] [address] Jul, [facility] [address] [facility] [id number], [place] [address] Jul, [facility] [address] [facility] [id number], [place] [address] Jul, [facility] [id number], [place] [address] Jun, [facility] [address] [facility] [id number], [place] [address] Jun, [facility] [id number] [place] [address] Jun, [facility] [id number], [place] [address] January, [facility] [id number] [place] [address] Dec, [facility] [id number], [place] [address] Oct, [facility] [id number], [place] [address] Oct, [facility] [id number], [place] [address] Jun, [facility] [id number], [place] [address] Aug, [facility] [id number], [place] [address] Aug, [facility] [id number], [place] [address] Jul, [facility] [id number] [address] Mar, IMMUNIZATIONS No Known Immunizations SOCIAL HISTORY Never Assessed REASON FOR VISIT Controlled Med Refill PLAN OF CARE VITAL SIGNS MEDICATIONS Unknown Medications RESULTS No Results PROCEDURES No Known procedures INSTRUCTIONS MEDICATIONS ADMINISTERED No Known Medications MEDICAL (GENERAL) HISTORY Type Description Date Medical History Hypertension Medical History Chronic Obstructive pulmonary disease diagnosed 2008 in [place]-PFT not done previously Medical History Gastrointestinal disorder [...]
--- OUTSIDE RECORDS SUMMARY | 2018-08-21 15:34 | XMS REPORT ---
Author Author KAITLIN TURNER Organization [facility] Address [address] 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 Name Role Phone KAITLIN TURNER Unavailable PROBLEMS Type Condition ICD9-CM Code SRB83-NZ Code Onset Dates Condition Status SNOMED Code Problem Chronic sinusitis, unspecified J32.9 Active 50117339 Problem Other chronic pain G89.29 Active 39536698 Problem Gastroesophageal reflux disease without esophagitis K21.9 Active 900277449 Problem Slow transit constipation K59.01 Active 93868710 Problem Coronary artery disease involving [place] coronary artery of [place] heart without angina pectoris I25.10 Active [id number] Problem Agoraphobia with panic attacks F40.01 Active 565613797 Problem COPD with exacerbation J44.1 Active 267197726 Problem Pericardial effusion I31.3 Active 060275031 Problem Pleural effusion on left J90 Active 13663635 Problem Generalized anxiety disorder F41.1 Active 16028815 Problem Chronic obstructive pulmonary disease, unspecified COPD type J44.9 Active 59933901 Problem Hypertension, benign I10 Active 13555138 Problem Oral phase dysphagia R13.11 Active 697512926 Problem Vitamin B 12 deficiency E53.8 Active 48855016 Problem Chronic fatigue R53.82 Active 21445602 ALLERGIES No Information ENCOUNTERS Encounter Location Date Diagnosis [facility] [id number], [place] [address] Apr, Generalized anxiety disorder F41.1 [facility] [address], [place] [address] Apr, Generalized anxiety disorder F41.1 [facility] [address], [place] [address] Apr, Flank pain R10.9 and Chronic prescription benzodiazepine use Z79.899 [facility] [id number] [address] Mar, Flank pain R10.9 [facility] [id number] [place] [address] 66889- 5334 Mar, [facility] [address], [place] [address] Feb, Coronary artery disease involving [place] coronary artery of [place] heart without angina pectoris I25.10 ; Vitamin B 12 deficiency E53.8 ; Slow transit constipation K59.01 ; Generalized anxiety disorder F41.1 and Breast cancer screening by mammogram Z12.31 [facility] [id number] [place] [address] 48185- 7399 Feb, Flank pain R10.9 [facility] [address], [place] [address] January, [facility] [id number] [place] [address] 35353- 0877 January, Chronic obstructive pulmonary disease, unspecified COPD type J44.9 ; Pleural effusion on left J90 ; Pericardial effusion I31.3 and Generalized anxiety disorder F41.1 [facility] [address], [place] [address] January, Gastroenteritis K52.9 [facility] [address], [place] [address] January, Flank pain R10.9 [facility] [id number], [place] [address] January, [facility] [id number] [id number] [place] [address] Dec [facility] [address], [place] [address] Dec, [facility] [address], [place] [address] Dec, [facility] [id number] [place] [address] 27861- 1672 Dec, [facility] [id number] [place] [address] 47246- 8022 Dec, [facility] [id number] [place] [address] 47888- 2116 Dec, Flank pain R10.9 [facility] [id number] [place] [address] 41954- 3932 Dec, [facility] [id number] [place] [address] 54288- 9457 Nov, [facility] [id number] [place] [address] 15145- 8473 Nov, [facility] [id number] [place] [address] 16365- 8240 Nov, [facility] [id number] [place] [address] 38118- 5951 Nov, Pericardial effusion I31.3 ; Agoraphobia with panic attacks F40.01 and Vitamin B 12 deficiency E53.8 [facility] [id number] [place] [address] 70038- 1560 Nov, [facility] [id number] [place] [address] 15730- 6586 Nov, Pneumonia of both lungs due to infectious organism, unspecified part of lung J18.9 and Flank pain R10.9 [facility] [id number] [place] [address] 71260- 0482 Nov, Pneumonia of both lungs due to infectious organism, unspecified part of lung J18.9 and Gastroenteritis K52.9 [facility] [id number] [place] [address] 71796- 0505 Oct, Pneumonia of both lungs due to infectious organism, unspecified part of lung J18.9 and Vitamin B 12 deficiency E53.8 [facility] [id number] [place] [address] [id number] Oct, [facility] [address], [place] [address] 1873 Oct, [facility] [id number] [place] [address] 14507- 2970 Oct, [facility] [id number] [place] [address] 87076- 0899 Oct, Flank pain R10.9 [facility] [id number] [place] [address] 01158- 4348 Oct, Other chronic pain G89.29 and Unspecified abdominal pain R10.9 [facility] [id number] [place] [address] 88685- 3220 Sep, Flank pain R10.9 [facility] [id number] [place] [address] 52737- 1943 Sep, [facility] [id number] [place] [address] 13841- 2270 Sep, [facility] [id number] [place] [address] 96156- 9225 Sep, Acute non-recurrent maxillary sinusitis J01.00 [facility] [id number] [place] [address] 15630- 1848 Sep, Acute non-recurrent maxillary sinusitis J01.00 and Vitamin B 12 deficiency E53.8 [facility] [address] [place] [address] 30374- 5025 Sep, [facility] [id number] [place] [address] 88174- 0041 Sep, [facility] [id number] [place] [address] 80862- 3273 Sep, [facility] [id number] [place] [address] 03530- 8377 Sep, COPD with exacerbation J44.1 [facility] [id number] [place] [address] 35401- 2955 Sep, Chronic obstructive pulmonary disease, unspecified COPD type J44.9 [facility] [id number] [place] [address] 39971- 0743 Aug, Flank pain R10.9 [facility] [id number] [place] [address] 38548- 9171 Jul, Flank pain R10.9 and Vitamin B 12 deficiency E53.8 [facility] [id number] [place] [address] 21593- 4172 Jul, [facility] [address] [address]- 8823 Jun, Gastroenteritis K52.9 [facility] [id number] [place] [address] 80949- 1881 May, Gastroenteritis K52.9 and Vitamin B 12 deficiency E53.8 [facility] [id number] [place] [address] 56734- 3668 Apr, Allergic conjunctivitis of left eye H10.12 and Chronic fatigue R53.82 [facility] [id number] [place] [address] 43282- 0239 Apr, Chronic sinusitis, unspecified J32.9 [facility] [id number] [place] [address] 41660- 6828 Apr, [facility] [id number] [place] [address] 73610- 9546 Feb, [facility] [id number] [place] [address] 25831- 4991 January, [facility] [id number] [place] [address] 54953- 5526 Dec, [facility] [id number] [place] [address] 72653- 9937 Oct, [facility] [id number] [place] [address] 53209- 1806 Sep, Oral phase dysphagia R13.11 and Vitamin B 12 deficiency E53.8 [facility] [address] 95004- 1290 Sep, [facility] [address] 65814- 3992 Jul, [facility] [address] 55990- 1055 Jul, [facility] [address] 29360- 2573 Jun, Bronchitis J40 ; Generalized anxiety disorder F41.1 and Chronic obstructive pulmonary disease, unspecified COPD type J44.9 [facility] [address] 16130- 5219 Jun, [facility] [address] 21606- 4924 Jun, [facility] [address] 09346- 5264 Jun, [facility] [address] 91686- 0360 May, Vitamin B 12 deficiency E53.8 ; Essential (primary) hypertension I10 ; Generalized anxiety disorder F41.1 ; Pain in joint, ankle and foot 719.47 ; Arthritis M19.90 ; Chronic obstructive pulmonary disease, unspecified COPD type J44.9 and Encounter for immunization Z23 [facility] [id number] [place] [address] 37964- 2602 Apr, [facility] [address] 30712- 4967 Apr, [facility] [id number] [place] [address] 15782- 6311 Mar, [facility] [address] 79800- 0976 January, [facility] [address], [place] [address]- 9090 Dec, [facility] [id number] [place] [address] 60046- 0557 Oct, [facility] [id number] [place] [address] 64972- 6546 Oct, [facility] [id number] [place] [address] 04056- 5324 Oct, Hypertension, benign I10 and Vitamin B 12 deficiency E53.8 [facility] [id number] [place] [address] 03251- 0797 Oct, [facility] [id number] [place] [address] 54370- 7049 Oct, [facility] [id number] [place] [address] 81483- 0920 Oct, Irritable bowel syndrome with diarrhea K58.0 [facility] [id number] [place] [address] 91948- 3513 Oct, [facility] [id number] [place] [address] 99408- 3750 Oct, Vitamin B 12 deficiency E53.8 ; Hypertension, benign I10 and Chronic obstructive pulmonary disease, unspecified COPD type J44.9 [facility] [address] [place] [address] 53679- 2296 Sep, Irritable bowel syndrome with diarrhea K58.0 ; Hypertension , benign I10 ; Chronic obstructive pulmonary disease, unspecified COPD type J44.9 ; Edema, unspecified type R60.9 ; Vision changes H53.9 and Vitamin B 12 deficiency E53.8 [facility] [address] [place] [address] 11892- 0794 Sep, [facility] [id number] [place] [address] 77378- 8988 Jul, Degenerative disc disease 722.6 [facility] [address] [place] [address] 32838- 0374 Jun, Encounter for immunization Z23 ; Pain in right leg M79.604 and Pain of left leg M79.605 [facility] [id number] [place] [address] 68656- 0306 Jun, [facility] [address] 45210- 0837 Jun, [facility] [id number] [place] [address] 82617- 3878 Jun, Degenerative disc disease 722.6 [facility] [id number] [place] [address] 29843- 0056 Jun, [facility] [id number] [place] [address] 79012- 0118 May, Seizures 780.39 and Autonomic peripheral neuropathy 337.9 [facility] [id number] [place] [address] 18725- 5749 May, [facility] [id number] [place] [address] 05457- 5827 May, [facility] [id number] [place] [address] 47853- 5840 May, Degenerative disc disease 722.6 [facility] [id number] [place] [address] 91515- 9553 May, [facility] [id number] [place] [address] 43338- 0674 Mar, [facility] [id number] [place] [address] 81335- 1588 Mar, Degenerative disc disease 722.6 ; Spinal stenosis 724.00 and HTN (hypertension) 401.9 [facility] [id number] [place] [address] 48551- 2929 Feb, Cutaneous horn 702.8 [facility] [address], [place] [address]- 0214 15 Feb, 2015 Fatigue 780.79 [facility] [id number] [place] [address] 107515- 3174 08 Feb, 2015 Fatigue 780.79 ; Arthritis 716.90 ; Spinal stenosis 724.00 ; Sinusitis 473.9 and Cutaneous horn 702.8 [facility] [address] [place] [address] 92136- 3269 January, [facility] [id number] [place] [address] 32635- 1346 Dec, [facility] [id number] [place] [address] 16845- 2026 Dec, [facility] [id number] [place] [address] 52460- 8601 Nov, [facility] [id number] [place] [address] 56142- 2734 Nov, [facility] [address] [place] [address] 10617- 5768 Oct, [facility] [address], [place] [address]- 1798 Oct, [facility] [address], [place] [address]- 1883 Oct, [facility] [address] [address] 54[address] Oct, [facility] [address]- 5[address] Oct, [facility] [id number] 8366 Oct, [facility] [address], [place] [address]- 7017 Sep, [facility] [place] [facility] [address] [id number] [place] [address]- 0497 Sep, [facility] [place] [facility] [address] [id number] [place] [address]- 2559 Sep, [facility] [place] [facility] [address] [id number] [place] [address]- 3764 Sep, [facility] [place] [facility] [address] [id number] [place] [address]- 2669 Sep, [facility] [place] [facility] [address] [id number] [place] [address]- 3788 Sep, [facility] [place] [facility] [address] [id number] [place] [address]- 1258 Sep, [facility] [place] [facility] [address] [id number] [place] [address]- 0934 Sep, [facility] [place] [facility] [address] [id number] [place] [address]- 0070 Sep, [facility] [place] [facility] [address] [id number] [place] [address]- 4649 Sep, [facility] [place] [facility] [address] [id number] [place] [address]- 7479 Sep, [facility] [place] [facility] [address] [id number] [place] [address]- 5082 Sep, [facility] [place] [facility] [address] [id number] [place] [address]- 0505 Sep, [facility] [place] [facility] [address] [id number] [place] [address]- 6242 Sep, [facility] [place] [facility] [address] [id number] [place] [address]- 1605 Aug, [facility] [place] [facility] [address] [id number] [place] [address]- 0694 Aug, [facility] [place] [facility] [address] [id number] [place] [address]- 3685 Aug, [facility] [place] [facility] [address] [id number] [place] [address]- 7491 Aug, [facility] [place] [facility] [address] [id number] [place] [address]- 3660 Jul, [facility] [place] [facility] [address] [id number] [place] 1861 Jul, [facility] [place] [facility] [address] [id number] [place] [address]- 7408 May, [facility] [place] [facility] [address] [id number] [place] [address]- 9540 May, [facility] [place] [facility] [address] [id number] [place] [address]- 9859 May, [facility] [place] [facility] [address] [id number] [place] [address]- 5623 May, [facility] [place] [facility] [address] [id number] [place] [address]- 6860 May, [facility] [place] [facility] [address] [id number] [place] [address]- 6086 May, [facility] [place] [facility] [address] [id number] [place] [address]- 6279 Apr, [facility] [place] [facility] [address] [id number] [place] [address]- 2277 Apr, [facility] [place] [facility] [address] [id number] [place] [address]- 7248 Mar, [facility] [place] [facility] [address] [id number] [place] [address]- 6880 Mar, [facility] [place] [facility] [address] [id number] [place] [address]- 1877 Mar, [facility] [place] [facility] [address] [id number] [place]- 5572 Mar, [facility] [place] [facility] [address] [id number] [place] [address]- 0715 Mar, [facility] [place] [facility] [address] [id number] [place] [address]- 4540 Mar, [facility] [place] [facility] [address] [id number] [place] [address]- 0987 Mar, [facility] [place] [facility] [address] [id number] [place] [address]- 2395 Mar, [facility] [place] [facility] [address] [id number] [place] [address]- 1357 Feb, [facility] [place] [facility] [address] [id number] [place] [address]- 0471 Feb, [facility] [place] [facility] [address] [id number] [place] [address]- 8234 January, [facility] [place] [facility] [address] [id number] [place] [address]- 4931 January, [facility] [place] [facility] [address] [id number] [place] [address]- 7909 January, [facility] [place] [facility] [address] [id number] [place] [address]- 1940 January, [facility] [place] [facility] [address] [id number] [place] [address]- 8241 Dec, [facility] [place] [facility] [address] [id number] [place] [address]- 3648 Dec, [facility] [place] [facility] [address] [id number] [place] [address]- 5081 Oct, [facility] [place] [facility] [address] [id number] [place] [address]- 9718 Oct, [facility] [place] [facility] [address] [id number] [place] [address]- 4896 Oct, [facility] [place] [facility] [address] [id number] [place] [address]- 8866 Oct, [facility] [address] [id number] [place] [address]- 8196 Sep, [facility] [place] [facility] [address] [id number] [place] [address]- 9870 Sep, [facility] [address] [id number] [place] [address]- 4673 Aug, [facility] [place] [facility] [address] [id number] [place] [address]- 0498 Aug, [facility] [address] [id number] [place] [address]- 4976 Aug, [facility] [place] [facility] [address] [id number] [place] [address]- 2484 Aug, [facility] [place] [facility] [address] [id number] [place] [address]- 5018 Aug, [facility] [place] [facility] [address] [id number] [place] [address]- 3230 Aug, [facility] [place] [facility] [address] [id number] [place] [address]- 4791 Aug, [facility] [place] [facility] [address] [id number] [place] [address]- 2741 Aug, [facility] [place] [facility] [address] [id number] [place] [address]- 3048 Aug, [facility] [place] [facility] [address] [id number], [place] [address]- 9331 Aug, [facility] [place] [facility] [address] [id number] [place] [address]- 1974 Jul, [facility] [place] [facility] [address] [id number] [place] [address]- 4057 Jul, [facility] [place] [facility] [address] [id number] [place] [address]- 4926 Jun, [facility] [place] [facility] [address] [id number] [place] [address]- 3790 29 Jun, 2013 [facility] [place] [facility] [address] [id number] [place] [address]- 3623 Jun, [facility] [place] [facility] [address] [id number] [place] [address] 16 Jun, 2013 [facility] [place] [facility] [address] [id number] [place] [address] Jun, [facility] [place] [facility] [address] [id number] [place] [address] 13 May, 2013 [facility] [place] [facility] [address] [id number] [place] [address] 13 May, 2013 [facility] [place] [facility] [address] [id number] [place] [address] 12 May, 2013 [facility] [place] [facility] [address] [id number] [place] [address] 06 May, 2013 [facility] [place] [facility] [address] [id number] [place] [address] 03 May, 2013 [facility] [place] [facility] [address] [id number] [place] [address] Apr, [facility] [place] [facility] [address] [id number] [place] [address] Mar, [facility] [place] [facility] [address] [id number] [place] [address] 15 Mar, 2013 [facility] [place] [facility] [address] [id number] [place] [address] Mar, [facility] [place] [facility] [address] [id number] [place] [address] Mar, [facility] [place] [facility] [address] [id number] [place] [address] Mar, [facility] [place] [facility] [address] [id number] [place] [address] Mar, [facility] [place] [facility] [address] [id number] [place] [address] Mar, [facility] [address] [id number] [place] [address] Mar, [facility] [address] [id number] [place] [address] Mar, [facility] [address] [id number] [place] [address] Feb, [facility] [address] [id number] [place] [address] Feb, [facility] [address] [id number] [place] [address] Feb, [facility] [address] [id number] [place] [address] January, [facility] [address] [id number] [place] [address] January, [facility] [address] [id number] [place] [address] January, [facility] [address] [id number] [place] [address] January, [facility] [address] [id number] [place] [address] Dec, [facility] [place] [facility] [address] [id number] [place] [address] 17 Dec, 2012 [facility] [place] [facility] [address] [id number] [place] [address] 12 Dec, 2012 [facility] [place] [facility] [address] [id number] [place] [address] 10 Dec, 2012 [facility] [place] [facility] [address] [id number] [place] [address] 08 Dec, 2012 [facility] [place] [facility] [address] [id number] [place] [address] Dec, [facility] [place] [facility] [address] [id number] [place] [address] Nov, [facility] [place] [facility] [address] [id number] [place] [address] Oct, [facility] [place] [facility] [address] [id number] [place] [address] Aug, [facility] [place] [facility] [address] [id number] [place] [address] Aug, [facility] [place] [facility] [address] [id number] [place] [address] Aug, [facility] [place] [facility] [address] [id number] [place] [address] Aug, [facility] [place] [facility] [address] [id number] [place] [address] Aug, [facility] [place] [facility] [address] [id number] [place] [address] Aug, [facility] [place] [facility] [address] [id number] [place] [address] Aug, [facility] [place] [facility] [address] [id number] [place] [address] Aug, [facility] [place] [facility] [address] [id number] [place] [address] Aug, [facility] [place] [facility] [address] [id number] [place] [address] Aug, [facility] [place] [facility] [address] [id number] [place] [address] Aug, [facility] [place] [facility] [address] [id number] [place] [address] Jul, [facility] [place] [facility] [address] [id number] [place] [address] Jul, [facility] [place] [facility] [address] [id number] [place] [address] Jul, [facility] [place] [facility] [address] [id number] [place] [address] Jul, [facility] [place] [facility] [address] [id number] [place] [address] Jul, [facility] [place] [facility] [address] [id number] [place] [address] Jul, [facility] [place] [facility] [address] [id number] [place] [address] Jun, [facility] [place] [facility] [address] [id number] [place] [address] Jun, [facility] [place] [facility] [address] [id number] [place] [address] May, [facility] [place] [facility] [address] [id number] [place] [address] Apr, [facility] [place] [facility] [address] [id number] [place] [address] Apr, [facility] [place] [facility] [address] [id number] [place] [address] Apr, [facility] [place] [facility] [address] [id number] [place] [address] Apr, [facility] [place] [facility] [address] [id number] [place] [address] Apr, [facility] [place] [facility] [address] [id number] [place] [address] Mar, [facility] [place] [facility] [address] [id number] [place] [address] Mar, [facility] [place] [facility] [address] [id number] [place] [address] January, [facility] [place] [facility] [address] [id number] [place] [address] January, [facility] [address] [id number] [place] [address] Nov, [facility] [place] [facility] [address] [id number] [place] [address] Oct, [facility] [place] [facility] [address] [id number] [place] [address] Sep, [facility] [place] [facility] [address] [id number] [place] [address] Sep, [facility] [place] [facility] [address] [id number] [place] [address] Sep, [facility] [place] [facility] [address] [id number] [place] [address] Sep, [facility] [place] [facility] [address] [id number] [place] [address] Sep, [facility] [place] [facility] [address] [id number] [place] [address] Sep, [facility] [place] [facility] [address] [id number] [place] [address] Aug, [facility] [place] [facility] [address] [id number], [place] [address] Aug, [facility] [place] [facility] [address] [id number], [place] [address] Aug, [facility] [place] [facility] [address] [id number], [place] [address] Aug, [facility] [place] [facility] [address] [id number] [place] [address] Aug, [facility] [place] [facility] [address] [id number], [place] [address] Jul, [facility] [place] [facility] [address] [id number], [place] [address] Jul, [facility] [place] [facility] [address] [id number], [place] [address] Jul, [facility] [id number], [place] [address] Jun, [facility] [id number], [place] [address] Jun, [facility] [id number], [place] [address] Jun, [facility] [id number], [place] [address] January, [facility] [id number] [place] [address] Dec, [facility] [id number], [place] [address] Oct, [facility] [id number] [place] [address] Oct, [facility] [id number], [place] [address] Jun, [facility] [id number], [place] [address] Aug, [facility] [id number], [place] [address] Aug, [facility] [id number], [place] [address] Jul, [facility] [id number], [place] [address] Mar, IMMUNIZATIONS No Known Immunizations SOCIAL HISTORY Never Assessed REASON FOR VISIT At home therapy/LVM PLAN OF CARE VITAL SIGNS MEDICATIONS Unknown Medications RESULTS No Results PROCEDURES No Known procedures INSTRUCTIONS MEDICATIONS ADMINISTERED No Known Medications MEDICAL (GENERAL) HISTORY Type Description Date Medical History Hypertension Medical History Chronic Obstructive pulmonary disease diagnosed 2008 in [place]-PFT not done previously Medical History Gastrointestinal disorder [...]
--- OUTSIDE RECORDS SUMMARY | 2018-08-21 15:34 | XMS REPORT ---
Author Author KAITLIN TURNER Organization [facility] Address [address] 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 Active [id number] Problem Agoraphobia with panic attacks F40.01 Active 095298275 Problem COPD with exacerbation J44.1 Active 818919924 Problem Pericardial effusion I31.3 Active 506866775 Problem Pleural effusion on left J90 Active 35480379 Problem Generalized anxiety disorder F41.1 Active 69425412 Problem Chronic obstructive pulmonary disease, unspecified COPD type J44.9 Active 82138962 Problem Hypertension, benign I10 Active 15785572 Problem Oral phase dysphagia R13.11 Active 563919546 Problem Vitamin B 12 deficiency E53.8 Active 46314779 Problem Chronic fatigue R53.82 Active 91171635 ALLERGIES No Information ENCOUNTERS Encounter Location Date Diagnosis [facility] [address], [place] [address] Apr, Generalized anxiety disorder F41.1 [facility] [address], [place] [address] 0[address] Apr, Generalized anxiety disorder F41.1 [facility] [address], [place] [address] 9[address] Apr, Flank pain R10.9 and Chronic prescription benzodiazepine use Z79.899 [facility] [id number], [place] [address] Mar, Flank pain R10.9 [facility] [id number] [place] [address] 03607- 7103 Mar, [facility] [address], [place] [address] 2474 Feb, 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 pectoris I25.10 ; Vitamin B 12 deficiency E53.8 ; Slow transit constipation K59.01 ; Generalized anxiety disorder F41.1 and Breast cancer screening by mammogram Z12.31 [facility] [id number] [place] [address] 45365- 3968 Feb, Flank pain R10.9 [facility] [address], [place] [address] 9[address] January, [facility] [id number] [place] [address] 63875- 6553 January, Chronic obstructive pulmonary disease, unspecified COPD type J44.9 ; Pleural effusion on left J90 ; Pericardial effusion I31.3 and Generalized anxiety disorder F41.1 [facility] [address], [place] [address] January, Gastroenteritis K52.9 [facility] [address], [place] [address] 9707 January, Flank pain R10.9 [facility] [address], [place] [address] 2584 January, [facility] [id number] [id number] [place] [address] Dec [facility] [address], [place] [address]- 1726 Dec, [facility] [address], [place] [address]- 0251 Dec, [facility] [id number] [place] [address] 64090- 1695 Dec, [facility] [id number] [place] [address] 73229- 1177 Dec, [facility] [id number] [place] [address] 30950- 6302 Dec, Flank pain R10.9 [facility] [id number] [place] [address] 17298- 1022 Dec, [facility] [id number] [place] [address] 80238- 5182 Nov, [facility] [id number] [place] [address] 40651- 7091 Nov, [facility] [id number] [place] [address] 21804- 2429 Nov, [facility] [id number] [place] [address] 33327- 6385 Nov, Pericardial effusion I31.3 ; Agoraphobia with panic attacks F40.01 and Vitamin B 12 deficiency E53.8 [facility] [id number] [place] [address] 03872- 7596 Nov, [facility] [id number] [place] [address] 69477- 8373 Nov, Pneumonia of both lungs due to infectious organism, unspecified part of lung J18.9 and Flank pain R10.9 [facility] [id number] [place] [address] 15658- 3332 Nov, Pneumonia of both lungs due to infectious organism, unspecified part of lung J18.9 and Gastroenteritis K52.9 [facility] [id number] [place] [address] 26788- 4523 Oct, Pneumonia of both lungs due to infectious organism, unspecified part of lung J18.9 and Vitamin B 12 deficiency E53.8 [facility] [id number] [place] [address] [id number] Oct, [facility] [address], [place] [address]- 0591 Oct, [facility] [id number] [place] [address] 20225- 6084 Oct, [facility] [id number] [place] [address] 09538- 4178 Oct, Flank pain R10.9 [facility] [id number] [place] [address] 81348- 6925 Oct, Other chronic pain G89.29 and Unspecified abdominal pain R10.9 [facility] [id number] [place] [address] 63920- 5130 Sep, Flank pain R10.9 [facility] [id number] [place] [address] 13285- 5988 Sep, [facility] [id number] [place] [address] 34890- 5378 Sep, [facility] [id number] [place] [address] 98047- 5082 Sep, Acute non-recurrent maxillary sinusitis J01.00 [facility] [id number] [place] [address] 31951- 6444 Sep, Acute non-recurrent maxillary sinusitis J01.00 and Vitamin B 12 deficiency E53.8 [facility] [address] [place] [address] 29507- 6930 Sep, [facility] [id number] [place] [address] 39665- 2892 Sep, [facility] [id number] [place] [address] 98514- 3751 Sep, [facility] [id number] [place] [address] 39161- 3545 Sep, COPD with exacerbation J44.1 [facility] [id number] [place] [address] 42308- 6362 Sep, Chronic obstructive pulmonary disease, unspecified COPD type J44.9 [facility] [id number] [place] [address] 84389- 9573 Aug, Flank pain R10.9 [facility] [id number] [place] [address] 48763- 0951 Jul, Flank pain R10.9 and Vitamin B 12 deficiency E53.8 [facility] [id number] [place] [address] 96009- 7502 Jul, [facility] [address] 22290- 4732 Jun, Gastroenteritis K52.9 [facility] [id number] [place] [address] 76583- 4579 May, Gastroenteritis K52.9 and Vitamin B 12 deficiency E53.8 [facility] [id number] [place] [address] 31358- 2500 Apr, Allergic conjunctivitis of left eye H10.12 and Chronic fatigue R53.82 [facility] [id number] [place] [address] 50686- 8991 Apr, Chronic sinusitis, unspecified J32.9 [facility] [id number] [place] [address] 21938- 1594 Apr, [facility] [id number] [place] [address] 59173- 0015 Feb, [facility] [id number] [place] [address] 20545- 9249 January, [facility] [id number] [place] [address] 04626- 3604 Dec, [facility] [id number] [place] [address] 69225- 3427 Oct, [facility] [id number] [place] [address] 35778- 8311 Sep, Oral phase dysphagia R13.11 and Vitamin B 12 deficiency E53.8 [facility] [address] 45097- 5068 Sep, [facility] [address] 66416- 9956 Jul, [facility] [address] 69866- 3372 Jul, [facility] [address] 62783- 4334 Jun, Bronchitis J40 ; Generalized anxiety disorder F41.1 and Chronic obstructive pulmonary disease, unspecified COPD type J44.9 [facility] [address] 36636- 0998 Jun, [facility] [address] 79963- 9541 Jun, [facility] [address] 35471- 5206 Jun, [facility] [address] 89835- 2455 May, Vitamin B 12 deficiency E53.8 ; Essential (primary) hypertension I10 ; Generalized anxiety disorder F41.1 ; Pain in joint, ankle and foot 719.47 ; Arthritis M19.90 ; Chronic obstructive pulmonary disease, unspecified COPD type J44.9 and Encounter for immunization Z23 [facility] [id number] [place] [address] 65720- 0519 Apr, [facility] [address] 65340- 2678 Apr, [facility] [id number] [place] [address] 86714- 2992 Mar, [facility] [address] 30955- 5000 January, [facility] [address], [place] [address]- 1594 Dec, [facility] [id number] [place] [address] 31949- 9911 Oct, [facility] [id number] [place] [address] 48537- 1908 Oct, [facility] [id number] [place] [address] 11238- 7054 Oct, Hypertension, benign I10 and Vitamin B 12 deficiency E53.8 [facility] [id number] [place] [address] 90979- 8891 Oct, [facility] [id number] [place] [address] 67649- 5995 Oct, [facility] [id number] [place] [address] 84222- 0758 Oct, Irritable bowel syndrome with diarrhea K58.0 [facility] [id number] [place] [address] 29142- 1476 Oct, [facility] [id number] [place] [address] 91999- 9508 Oct, Vitamin B 12 deficiency E53.8 ; Hypertension, benign I10 and Chronic obstructive pulmonary disease, unspecified COPD type J44.9 [facility] [id number] [place] [address] 17976- 2499 Sep, Irritable bowel syndrome with diarrhea K58.0 ; Hypertension , benign I10 ; Chronic obstructive pulmonary disease, unspecified COPD type J44.9 ; Edema, unspecified type R60.9 ; Vision changes H53.9 and Vitamin B 12 deficiency E53.8 [facility] [address] [place] [address] 23206- 4837 Sep, [facility] [address] [place] [address] 55921- 3548 Jul, Degenerative disc disease 722.6 [facility] [address] [place] [address] 12356- 1356 Jun, Pain in right leg M79.604 ; Encounter for immunization Z23 and Pain of left leg M79.605 [facility] [id number] [place] [address] 46149 2546 Jun, [facility] [address] 25100 2546 Jun, [facility] [id number] [place] [address] 87718- 2172 Jun, Degenerative disc disease 722.6 [facility] [id number] [place] [address] 16472- 2546 Jun, [facility] [id number] [place] [address] 57203- 2037 May, Seizures 780.39 and Autonomic peripheral neuropathy 337.9 [facility] [id number] [place] [address] 81271- 3783 18 May, 2015 [facility] [id number] [place] [address] 55038- 2347 May, [facility] [id number] [place] [address] 55300- 5890 May, Degenerative disc disease 722.6 [facility] [id number] [place] [address] 95518 2546 May, [facility] [id number] [place] [address] 66800 2541 Mar, [facility] [id number] [place] [address] 17849- 2542 Mar, Degenerative disc disease 722.6 ; Spinal stenosis 724.00 and HTN (hypertension) 401.9 [facility] [id number] [place] [address] 454798- 6036 Feb, Cutaneous horn 702.8 [facility] [address], [place] [address]- 1335 15 Feb, 2015 Fatigue 780.79 [facility] [id number] [place] [address] 715697- 8793 08 Feb, 2015 Fatigue 780.79 ; Arthritis 716.90 ; Spinal stenosis 724.00 ; Sinusitis 473.9 and Cutaneous horn 702.8 [facility] [id number] [place] [address] 78871- 2110 January, [facility] [id number] [place] [address] 93895- 3146 Dec, [facility] [id number] [place] [address] 99003- 0828 Dec, [facility] [id number] [place] [address] 41684- 6237 Nov, [facility] [id number] [place] [address] 78662- 0485 Nov, [facility] [address] [place] [address] 69860- 7130 Oct, [facility] [address], [place] [address]- 7786 Oct, [facility] [address], [place] [address]- 3313 Oct, [facility] [address], [place] [address]- 4102 Oct, [facility] [address]- 3788 Oct, [facility] [id number]- 2018 Oct, [facility] [address], [place] [address]- 7961 Sep, [facility] [place] [facility] [address] [id number] [place] [address]- 4401 Sep, [facility] [place] [facility] [address] [id number] [place] [address]- 4773 Sep, [facility] [place] [facility] [address] [id number] [place] [address]- 4682 Sep, [facility] [place] [facility] [address] [id number] [place] [address]- 0578 Sep, [facility] [place] [facility] [address] [id number] [place] [address]- 4006 Sep, [facility] [place] [facility] [address] [id number] [place] [address]- 7545 Sep, [facility] [place] [facility] [address] [id number] [place] [address]- 8420 Sep, [facility] [place] [facility] [address] [id number] [place] [address]- 4657 Sep, [facility] [place] [facility] [address] [id number] [place] [address]- 0111 Sep, [facility] [place] [facility] [address] [id number] [place] [address]- 7117 Sep, [facility] [place] [facility] [address] [id number] [place] [address]- 2191 Sep, [facility] [place] [facility] [address] [id number] [place] [address]- 4558 Sep, [facility] [place] [facility] [address] [id number] [place] [address]- 0091 Sep, [facility] [place] [facility] [address] [id number] [place] [address]- 6932 Aug, [facility] [place] [facility] [address] [id number] [place] [address]- 2702 Aug, [facility] [place] [facility] [address] [id number] [place] [address]- 7351 Aug, [facility] [place] [facility] [address] [id number] [place] [address]- 8040 Aug, [facility] [place] [facility] [address] [id number] [place] [address]- 2628 Jul, [facility] [place] [facility] [address] [id number] [place] 7310 Jul, [facility] [place] [facility] [address] [id number] [place] [address]- 6170 May, [facility] [place] [facility] [address] [id number] [place] [address]- 9823 May, [facility] [place] [facility] [address] [id number] [place] [address]- 5236 May, [facility] [place] [facility] [address] [id number] [place] [address]- 1774 May, [facility] [place] [facility] [address] [id number] [place] [address]- 6421 May, [facility] [place] [facility] [address] [id number] [place] [address]- 1457 May, [facility] [place] [facility] [address] [id number] [place] [address]- 8415 Apr, [facility] [place] [facility] [address] [id number] [place] [address]- 3842 Apr, [facility] [place] [facility] [address] [id number] [place] [address]- 3527 Mar, [facility] [place] [facility] [address] [id number] [place] [address]- 2048 Mar, [facility] [place] [facility] [address] [id number] [place] [address]- 3535 Mar, [facility] [place] [facility] [address] [id number] [place] 0035 Mar, [facility] [place] [facility] [address] [id number] [place] [address]- 9740 Mar, [facility] [place] [facility] [address] [id number] [place] [address]- 9199 Mar, [facility] [place] [facility] [address] [id number] [place] [address]- 2636 Mar, [facility] [place] [facility] [address] [id number] [place] [address]- 5056 Mar, [facility] [place] [facility] [address] [id number] [place] [address]- 2363 Feb, [facility] [place] [facility] [address] [id number] [place] [address]- 8018 Feb, [facility] [place] [facility] [address] [id number] [place] [address]- 7562 January, [facility] [place] [facility] [address] [id number] [place] [address]- 5499 January, [facility] [place] [facility] [address] [id number] [place] [address]- 5214 January, [facility] [place] [facility] [address] [id number] [place] [address]- 8299 January, [facility] [place] [facility] [address] [id number] [place] [address]- 2749 Dec, [facility] [place] [facility] [address] [id number] [place] [address]- 1264 Dec, [facility] [place] [facility] [address] [id number] [place] [address]- 8960 Oct, [facility] [place] [facility] [address] [id number] [place] [address]- 2480 Oct, [facility] [place] [facility] [address] [id number] [place] [address]- 7599 Oct, [facility] [place] [facility] [address] [id number] [place] [address]- 2211 Oct, [facility] [address] [id number] [place] [address]- 3353 Sep, [facility] [place] [facility] [address] [id number] [place] [address]- 8649 Sep, [facility] [address] [id number] [place] [address]- 0553 Aug, [facility] [place] [facility] [address] [id number] [place] [address]- 6794 Aug, [facility] [address] [id number] [place] [address]- 8318 Aug, [facility] [place] [facility] [address] [id number] [place] [address]- 1794 Aug, [facility] [place] [facility] [address] [id number] [place] [address]- 6104 Aug, [facility] [place] [facility] [address] [id number] [place] [address]- 4825 Aug, [facility] [place] [facility] [address] [id number] [place] [address]- 7121 Aug, [facility] [place] [facility] [address] [id number] [place] [address]- 2509 Aug, [facility] [place] [facility] [address] [id number] [place] [address]- 5285 Aug, [facility] [place] [facility] [address] [id number], [place] [address]- 0183 Aug, [facility] [place] [facility] [address] [id number] [place] [address]- 9008 Jul, [facility] [place] [facility] [address] [id number] [place] [address]- 0609 Jul, [facility] [place] [facility] [address] [id number] [place] [address]- 0747 Jun, [facility] [place] [facility] [address] [id number] [place] [address]- 5712 29 Jun, 2013 [facility] [place] [facility] [address] [id number] [place] [address]- 6729 Jun, [facility] [place] [facility] [address] [id number] [place] [address]- 7771 16 Jun, 2013 [facility] [place] [facility] [address] [id number] [place] [address]- 3190 Jun, [facility] [place] [facility] [address] [id number] [place] [address]- 4412 13 May, 2013 [facility] [place] [facility] [address] [id number] [place] [address]- 1541 13 May, 2013 [facility] [place] [facility] [address] [id number] [place] [address]- 5842 12 May, 2013 [facility] [place] [facility] [address] [id number] [place] [address]- 6689 06 May, 2013 [facility] [place] [facility] [address] [id number] [place] [address]- 6483 03 May, 2013 [facility] [place] [facility] [address] [id number] [place] [address]- 3211 Apr, [facility] [place] [facility] [address] [id number] [place] [address]- 8319 Mar, [facility] [place] [facility] [address] [id number] [place] [address]- 0071 15 Mar, 2013 [facility] [place] [facility] [address] [id number] [place] [address]- 6191 Mar, [facility] [place] [facility] [address] [id number] [place] [address]- 7112 Mar, [facility] [place] [facility] [address] [id number] [place] [address] Mar, [facility] [place] [facility] [address] [id number] [place] [address] Mar, [facility] [place] [facility] [address] [id number] [place] [address] Mar, [facility] [address] [id number] [place] [address] Mar, [facility] [address] [id number] [place] [address] Mar, [facility] [address] [id number] [place] [address] Feb, [facility] [address] [id number] [place] [address] Feb, [facility] [address] [id number] [place] [address] Feb, [facility] [address] [id number] [place] [address] January, [facility] [address] [id number] [place] [address] January, [facility] [address] [id number] [place] [address] January, [facility] [address] [id number] [place] [address] January, [facility] [address] [id number] [place] [address] Dec, [facility] [place] [facility] [address] [id number] [place] [address] 17 Dec, 2012 [facility] [place] [facility] [address] [id number] [place] [address] 12 Dec, 2012 [facility] [place] [facility] [address] [id number] [place] [address] 10 Dec, 2012 [facility] [place] [facility] [address] [id number] [place] [address] 08 Dec, 2012 [facility] [place] [facility] [address] [id number] [place] [address] Dec, [facility] [place] [facility] [address] [id number] [place] [address] Nov, [facility] [place] [facility] [address] [id number] [place] [address] Oct, [facility] [place] [facility] [address] [id number] [place] [address] Aug, [facility] [place] [facility] [address] [id number] [place] [address] Aug, [facility] [place] [facility] [address] [id number] [place] [address] Aug, [facility] [place] [facility] [address] [id number] [place] [address] Aug, [facility] [place] [facility] [address] [id number] [place] [address] Aug, [facility] [place] [facility] [address] [id number] [place] [address] Aug, [facility] [place] [facility] [address] [id number] [place] [address] Aug, [facility] [place] [facility] [address] [id number] [place] [address] Aug, [facility] [place] [facility] [address] [id number] [place] [address] Aug, [facility] [place] [facility] [address] [id number] [place] [address] Aug, [facility] [place] [facility] [address] [id number] [place] [id number] Aug, [facility] [place] [facility] [address] [id number] [place] [address] Jul, [facility] [place] [facility] [address] [id number] [place] [address] Jul, [facility] [place] [facility] [address] [id number] [place] [address] Jul, [facility] [place] [facility] [address] [id number] [place] [address] Jul, [facility] [place] [facility] [address] [id number] [place] [address] Jul, [facility] [place] [facility] [address] [id number] [place] [address] Jul, [facility] [place] [facility] [address] [id number] [place] [address] Jun, [facility] [place] [facility] [address] [id number] [place] [address] Jun, [facility] [place] [facility] [address] [id number] [place] [address] May, [facility] [place] [facility] [address] [id number] [place] [address] Apr, [facility] [place] [facility] [address] [id number] [place] [address] Apr, [facility] [place] [facility] [address] [id number] [place] [address] Apr, [facility] [place] [facility] [address] [id number] [place] [address] Apr, [facility] [place] [facility] [address] [id number] [place] [address] Apr, [facility] [place] [facility] [address] [id number] [place] [address] Mar, [facility] [place] [facility] [address] [id number] [place] [address] Mar, [facility] [place] [facility] [address] [id number] [place] [address] January, [facility] [place] [facility] [address] [id number] [place] [address] January, [facility] [address] [id number] [place] [address] Nov, [facility] [place] [facility] [address] [id number] [place] [address] Oct, [facility] [place] [facility] [address] [id number] [place] [address] Sep, [facility] [place] [facility] [address] [id number] [place] [address] Sep, [facility] [place] [facility] [address] [id number] [place] [address] Sep, [facility] [place] [facility] [address] [id number] [place] [address] Sep, [facility] [place] [facility] [address] [id number] [place] [address] Sep, [facility] [place] [facility] [address] [id number] [place] [address] Sep, [facility] [place] [facility] [address] [id number] [place] [address]- [address] Aug, [facility] [place] [facility] [address] [id number], [place] [address] Aug, [facility] [place] [facility] [address] [id number], [place] [address] Aug, [facility] [place] [facility] [address] [id number], [place] [address] Aug, [facility] [place] [facility] [address] [id number] [place] [address] Aug, [facility] [place] [facility] [address] [id number], [place] [address] Jul, [facility] [place] [facility] [address] [id number], [place] [address] Jul, [facility] [place] [facility] [address] [id number], [place] [address] Jul, [facility] [id number], [place] [address] Jun, [facility] [id number], [place] [address] Jun, [facility] [id number], [place] [address] Jun, [facility] [id number], [place] [address] January, [facility] [id number] [place] [address] Dec, [facility] [id number], [place] [address] Oct, [facility] [id number] [place] [address] Oct, [facility] [id number], [place] [address] Jun, [facility] [id number], [place] [address] Aug, [facility] [id number], [place] [address] Aug, [facility] [id number], [place] [address] Jul, [facility] [id number], [place] [address] Mar, IMMUNIZATIONS No Known Immunizations SOCIAL HISTORY Never Assessed REASON FOR VISIT Controlled Med Refill 02/25/18 PLAN OF CARE VITAL SIGNS MEDICATIONS Medication Instructions Dosage Frequency Start Date End Date Duration Status Xanax 0.5 MG Orally 3 times a day as needed 1 tablet Nov, 28 days Active RESULTS No Results PROCEDURES No Known procedures INSTRUCTIONS MEDICATIONS ADMINISTERED No Known Medications MEDICAL (GENERAL) HISTORY Type Description Date Medical History Hypertension Medical History Chronic Obstructive pulmonary disease diagnosed 2008 in [employer]-PFT not done previously Medical History Gastrointestinal disorder [...]
--- OUTSIDE RECORDS SUMMARY | 2018-08-21 15:35 | XMS REPORT ---
Author Author KAITLIN TURNER Organization [facility] Address [address] [place] [address] Care Team Providers Care Operating Room Rn Name Role Phone KAITLIN TURNER Unavailable PROBLEMS Type Condition ICD9-CM Code [id number] Code Onset Dates Condition Status SNOMED Code Problem Chronic sinusitis, unspecified J32.9 Active 09601971 Problem Other chronic pain G89.29 Active 43940265 Problem Gastroesophageal reflux disease without esophagitis K21.9 Active 061338335 Problem Slow transit constipation K59.01 Active 37076530 Problem Coronary artery disease involving e[place] coronary artery of ekwok heart without angina pectoris I25.10 Active [id number] Problem Agoraphobia with panic attacks F40.01 Active 385298287 Problem COPD with exacerbation J44.1 Active 287088347 Problem Pericardial effusion I31.3 Active 101175594 Problem Pleural effusion on left J90 Active 51472081 Problem Generalized anxiety disorder F41.1 Active 55770751 Problem Chronic obstructive pulmonary disease, unspecified COPD type J44.9 Active 54251999 Problem Hypertension, benign I10 Active 77416746 Problem Oral phase dysphagia R13.11 Active 553682256 Problem Vitamin B 12 deficiency E53.8 Active 69617894 Problem Chronic fatigue R53.82 Active [id number] ALLERGIES No Information ENCOUNTERS Encounter Location Date Diagnosis [facility] [id number] [address] Apr, Generalized anxiety disorder F41.1 [facility] [address] [address] Apr, Generalized anxiety disorder F41.1 [facility] [address] [address] Apr, Flank pain R10.9 and Chronic prescription benzodiazepine use Z79.899 [facility] [id number] [address] Mar, Flank pain R10.9 [facility] [id number] [place] [address] 37089- 2018 Mar, [facility] [address] [address] Feb, Coronary artery disease involving e[place] coronary artery of e[place] heart without angina pectoris I25.10 ; Vitamin B 12 deficiency E53.8 ; Slow transit constipation K59.01 ; Generalized anxiety disorder F41.1 and Breast cancer screening by mammogram Z12.31 [facility] [id number] [place] [address] 69310- 9630 Feb, Flank pain R10.9 [facility] [id number] [address] 16[address] January, [facility] [id number] [place] [address] 81098- 3059 January, Chronic obstructive pulmonary disease, unspecified COPD type J44.9 ; Pleural effusion on left J90 ; Pericardial effusion I31.3 and Generalized anxiety disorder F41.1 [facility] [address] [address] 6[address] January, Gastroenteritis K52.9 [facility] [address] [address] 5669 January, Flank pain R10.9 [facility] [address] [address] 14[address] January, [facility] [address] [id number] [place] [address] Dec [facility] [address] [address] 6239 Dec, [facility] [id number] [address]- 2691 Dec, [facility] [id number] [place] [address] 73669- 3208 Dec, [facility] [id number] [place] [address] 94469- 9304 Dec, [facility] [id number] [place] [address] 22999- 5713 Dec, Flank pain R10.9 [facility] [id number] [place] [address] 27658- 3330 Dec, [facility] [id number] [place] [address] 44564- 5935 Nov, [facility] [id number] [place] [address] 70342- 8909 Nov, [facility] [id number] [place] [address] 61118- 8728 Nov, [facility] [id number] [place] [address] 28608- 7025 Nov, Pericardial effusion I31.3 ; Agoraphobia with panic attacks F40.01 and Vitamin B 12 deficiency E53.8 [facility] [id number] [place] [address] 32268- 1864 Nov, [facility] [id number] [place] [address] 29039- 9431 Nov, Pneumonia of both lungs due to infectious organism, unspecified part of lung J18.9 and Flank pain R10.9 [facility] [id number] [place] [address] 22489- 6147 Nov, Pneumonia of both lungs due to infectious organism, unspecified part of lung J18.9 and Gastroenteritis K52.9 [facility] [id number] [place] [address] 67152- 6618 Oct, Pneumonia of both lungs due to infectious organism, unspecified part of lung J18.9 and Vitamin B 12 deficiency E53.8 [facility] [id number] [place] [address] [id number] Oct, [facility] [address] [address] 0688 Oct, [facility] [id number] [place] [address] 20484- 6281 Oct, [facility] [id number] [place] [address] 90546- 8902 Oct, Flank pain R10.9 [facility] [id number] [place] [address] 32930- 8946 Oct, Other chronic pain G89.29 and Unspecified abdominal pain R10.9 [facility] [id number] [place] [address] 56855- 8391 Sep, Flank pain R10.9 [facility] [id number] [place] [address] 89115- 0358 Sep, [facility] [id number] [place] [address] 63047- 7475 Sep, [facility] [id number] [place] [address] 83520- 8327 Sep, Acute non-recurrent maxillary sinusitis J01.00 [facility] [id number] [place] [address] 42098- 9535 Sep, Acute non-recurrent maxillary sinusitis J01.00 and Vitamin B 12 deficiency E53.8 [facility] [id number] [place] [address] 98295- 2182 Sep, [facility] [id number] [place] [address] 32227- 9798 Sep, [facility] [id number] [place] [address] 39860- 7253 Sep, [facility] [id number] [place] [address] 02387- 6395 Sep, COPD with exacerbation J44.1 [facility] [id number] [place] [address] 57441- 6067 Sep, Chronic obstructive pulmonary disease, unspecified COPD type J44.9 [facility] [id number] [place] [address] 22676- 5448 Aug, Flank pain R10.9 [facility] [id number] [place] [address] 67919- 2790 Jul, Flank pain R10.9 and Vitamin B 12 deficiency E53.8 [facility] [id number] [place] [address] 55325- 0319 Jul, [facility] [address] 78186- 1581 Jun, Gastroenteritis K52.9 [facility] [id number] [place] [address] 82977- 2330 May, Gastroenteritis K52.9 and Vitamin B 12 deficiency E53.8 [facility] [id number] [place] [address] 80734- 6944 Apr, Allergic conjunctivitis of left eye H10.12 and Chronic fatigue R53.82 [facility] [id number] [place] [address] 13029- 1098 Apr, Chronic sinusitis, unspecified J32.9 [facility] [id number] [place] [address] 91452- 6275 Apr, [facility] [id number] [place] [address] 50170- 1080 Feb, [facility] [id number] [place] [address] 80455- 6423 January, [facility] [id number] [place] [address] 04439- 1341 Dec, [facility] [id number] [place] [address] 85136- 1105 Oct, [facility] [facility] [id number] [place] [address] 22855- 1770 Sep, Oral phase dysphagia R13.11 and Vitamin B 12 deficiency E53.8 [place] [address] 01956- 2011 Sep, [place] [address] 60182- 1668 Jul, [place] [address] 45951- 0654 Jul, [place] [address] 82966- 2559 Jun, Bronchitis J40 ; Generalized anxiety disorder F41.1 and Chronic obstructive pulmonary disease, unspecified COPD type J44.9 [place] [address] 69310- 9111 Jun, [place] [address] 10046- 2755 Jun, [place] [address] 62182- 3781 Jun, [place] [address] 18935- 5905 May, Vitamin B 12 deficiency E53.8 ; Essential (primary) hypertension I10 ; Generalized anxiety disorder F41.1 ; Pain in joint, ankle and foot 719.47 ; Arthritis M19.90 ; Chronic obstructive pulmonary disease, unspecified COPD type J44.9 and Encounter for immunization Z23 [place] [facility] [id number] [place] [address] 56882- 6576 Apr, [place] [address] 92366- 3022 Apr, [place] [id number] [place] [address] 94133- 7082 Mar, [place] [address] 73099- 7274 January, [facility] [address] [address]- 9251 Dec, [facility] [id number] [place] [address] 29495- 3061 Oct, [facility] [id number] [place] [address] 96486- 9209 Oct, [facility] [id number] [place] [address] 33105- 2007 Oct, Hypertension, benign I10 and Vitamin B 12 deficiency E53.8 [facility] [id number] [place] [address] 46719- 6337 Oct, [facility] [id number] [place] [address] 49287- 7263 Oct, [facility] [id number] [place] [address] 87057- 5111 Oct, Irritable bowel syndrome with diarrhea K58.0 [facility] [id number] [place] [address] 12984- 1920 Oct, [facility] [id number] [place] [address] 87323- 7585 Oct, Vitamin B 12 deficiency E53.8 ; Hypertension, benign I10 and Chronic obstructive pulmonary disease, unspecified COPD type J44.9 [facility] [address] [place] [address] 45706- 8840 Sep, Irritable bowel syndrome with diarrhea K58.0 ; Hypertension , benign I10 ; Chronic obstructive pulmonary disease, unspecified COPD type J44.9 ; Edema, unspecified type R60.9 ; Vision changes H53.9 and Vitamin B 12 deficiency E53.8 [facility] [id number] [place] [address] 85243- 4355 Sep, [facility] [address] [place] [address] 77816- 0918 Jul, Degenerative disc disease 722.6 [facility] [address] [place] [address] 81674- 3786 Jun, Pain in right leg M79.604 ; Encounter for immunization Z23 and Pain of left leg M79.605 [facility] [id number] [place] [address] 72835 2546 Jun, [facility] [address] 75664 2546 Jun, [facility] [id number] [place] [address] 49860- 8074 Jun, Degenerative disc disease 722.6 [facility] [id number] [place] [address] 66910- 2546 Jun, [facility] [id number] [place] [address] 27242- 6747 May, Seizures 780.39 and Autonomic peripheral neuropathy 337.9 [facility] [id number] [place] [address] 49941- 7070 18 May, 2015 [facility] [id number] [place] [address] 11397- 8640 May, [facility] [id number] [place] [address] 98415- 3687 May, Degenerative disc disease 722.6 [facility] [id number] [place] [address] 60907 2546 May, [facility] [id number] [place] [address] 60193 2548 Mar, [facility] [id number] [place] [address] 29958- 2543 Mar, Degenerative disc disease 722.6 ; Spinal stenosis 724.00 and HTN (hypertension) 401.9 [facility] [id number] [place] [address] 865785- 6733 Feb, Cutaneous horn 702.8 [facility] [address] [address]- 7184 15 Feb, 2015 Fatigue 780.79 [facility] [id number] [place] [address] 278299- 0159 08 Feb, 2015 Fatigue 780.79 ; Arthritis 716.90 ; Spinal stenosis 724.00 ; Sinusitis 473.9 and Cutaneous horn 702.8 [facility] [id number] [place] [address] 91299- 5679 January, [facility] [id number] [place] [address] 76213- 6719 Dec, [facility] [id number] [place] [address] 66727- 6856 Dec, [facility] [id number] [place] [address] 16624- 6617 Nov, [facility] [id number] [place] [address] 19096- 4547 Nov, [facility] [id number] [place] [address] 98196- 2677 Oct, [facility] [address] [address]- 2379 Oct, [facility] [address] [address]- 2931 Oct, [facility] [address] [address]- 7681 Oct, [facility] [id number] 4858 Oct, [facility] [id number] 0449 Oct, [facility] [address] [address]- 9671 Sep, [facility] [place] [facility] [address] [id number] [place] [address]- 9335 Sep, [facility] [place] [facility] [address] [id number] [place] [address]- 0970 Sep, [facility] [place] [facility] [address] [id number] [place] [address]- 8548 Sep, [facility] [place] [facility] [address] [id number] [place] [address]- 8675 Sep, [facility] [place] [facility] [address] [id number] [place] [address]- 9761 Sep, [facility] [place] [facility] [address] [id number] [place] [address]- 2422 Sep, [facility] [place] [facility] [address] [id number] [place] [address]- 6543 Sep, [facility] [place] [facility] [address] [id number] [place] [address]- 3912 Sep, [facility] [place] [facility] [address] [id number] [place] [address]- 9211 Sep, [facility] [place] [facility] [address] [id number] [place] [address]- 1846 Sep, [facility] [place] [facility] [address] [id number] [place] [address]- 6730 Sep, [facility] [place] [facility] [address] [id number] [place] [address]- 5648 Sep, [facility] [place] [facility] [address] [id number] [place] [address]- 7822 Sep, [facility] [place] [facility] [address] [id number] [place] [address]- 5273 Aug, [facility] [place] [facility] [address] [id number] [place] [address]- 0483 Aug, [facility] [place] [facility] [address] [id number] [place] [address]- 7969 Aug, [facility] [place] [facility] [address] [id number] [place] [address]- 2499 Aug, [facility] [place] [facility] [address] [id number] [place] [address]- 9509 Jul, [facility] [place] [facility] [address] [id number] [place] 6281 Jul, [facility] [place] [facility] [address] [id number] [place] [address]- 3112 May, [facility] [place] [facility] [address] [id number] [place] [address]- 1201 May, [facility] [place] [facility] [address] [id number] [place] [address]- 0303 May, [facility] [place] [facility] [address] [id number] [place] [address]- 7656 May, [facility] [place] [facility] [address] [id number] [place] [address]- 7301 May, [facility] [place] [facility] [address] [id number] [place] [address]- 9717 May, [facility] [place] [facility] [address] [id number] [place] [address]- 4621 Apr, [facility] [place] [facility] [address] [id number] [place] [address]- 5173 Apr, [facility] [place] [facility] [address] [id number] [place] [address]- 1144 Mar, [facility] [place] [facility] [address] [id number] [place] [address]- 3717 Mar, [facility] [place] [facility] [address] [id number] [place] [address]- 9394 Mar, [facility] [place] [facility] [address] [id number] [place] 3190 Mar, [facility] [place] [facility] [address] [id number] [place] [address]- 5970 Mar, [facility] [place] [facility] [address] [id number] [place] [address]- 4806 Mar, [facility] [place] [facility] [address] [id number] [place] [address]- 7541 Mar, [facility] [place] [facility] [address] [id number] [place] [address]- 9594 Mar, [facility] [place] [facility] [address] [id number] [place] [address]- 7833 Feb, [facility] [place] [facility] [address] [id number] [place] [address]- 6600 Feb, [facility] [place] [facility] [address] [id number] [place] [address]- 2662 January, [facility] [place] [facility] [address] [id number] [place] [address]- 0717 January, [facility] [place] [facility] [address] [id number] [place] [address]- 6827 January, [facility] [place] [facility] [address] [id number] [place] [address] January, [facility] [place] [facility] [address] [id number] [place] [address] Dec, [facility] [place] [facility] [address] [id number] [place] [address] Dec, [facility] [place] [facility] [address] [id number] [place] [address] Oct, [facility] [place] [facility] [address] [id number] [place] [address] Oct, [facility] [place] [facility] [address] [id number] [place] [address] Oct, [facility] [place] [facility] [address] [id number] [place] [address] Oct, [facility] [address] [id number] [place] [address] Sep, [facility] [place] [facility] [address] [id number] [place] [address] Sep, [facility] [address] [id number] [place] [address] Aug, [facility] [place] [facility] [address] [id number] [place] [address] Aug, [facility] [address] [id number] [place] [address] Aug, [facility] [place] [facility] [address] [id number] [place] [address] Aug, [facility] [place] [facility] [address] [id number] [place] [address] Aug, [facility] [place] [facility] [address] [id number] [place] [address] Aug, [facility] [place] [facility] [address] [id number] [place] [address] Aug, [facility] [place] [facility] [address] [id number] [place] [address] Aug, [facility] [place] [facility] [address] [id number] [place] [address] Aug, [facility] [place] [facility] [address] [id number] [place] [address] Aug, [facility] [place] [facility] [address] [id number] [place] [address] Jul, [facility] [place] [facility] [address] [id number] [place] [address] Jul, [facility] [place] [facility] [address] [id number] [place] [address] Jun, [facility] [place] [facility] [address] [id number] [place] [address] 29 Jun, 2013 [facility] [place] [facility] [address] [id number] [place] [address] Jun, [facility] [place] [facility] [address] [id number] [place] [address] 16 Jun, 2013 [facility] [place] [facility] [address] [id number] [place] [address] Jun, [facility] [place] [facility] [address] [id number] [place] [address] 13 May, 2013 [facility] [place] [facility] [address] [id number] [place] [address] 13 May, 2013 [facility] [place] [facility] [address] [id number] [place] [address] 12 May, 2013 [facility] [place] [facility] [address] [id number] [place] [address] 06 May, 2013 [facility] [place] [facility] [address] [id number] [place] [address] 03 May, 2013 [facility] [place] [facility] [address] [id number] [place] [place] [address] Apr, [facility] [place] [facility] [address] [id number] [place] [address] Mar, [facility] [place] [facility] [address] [id number] [place] [address] 15 Mar, 2013 [facility] [place] [facility] [address] [id number] [place] [address] Mar, [facility] [place] [facility] [address] [id number] [place] [address] 8869 Mar, [facility] [place] [facility] [address] [id number] [place] [address] Mar, [facility] [place] [facility] [address] [id number] [place] [address] Mar, [facility] [place] [facility] [address] [id number] [place] [address] Mar, [facility] [address] [id number] [place] [address] Mar, [facility] [address] [id number] [place] [address] Mar, [facility] [address] [id number] [place] [address] Feb, [facility] [address] [id number] [place] [address] Feb, [facility] [address] [id number] [place] [address] 1684 Feb, [facility] [address] [id number] [place] [address] January, [facility] [address] [id number] [place] [address] January, [facility] [address] [id number] [place] [address] 1590 January, [facility] [address] [id number] [place] [address] January, [facility] [address] [id number] [place] [address] Dec, [facility] [place] [facility] [address] [id number] [place] [address] 17 Dec, 2012 [facility] [place] [facility] [address] [id number] [place] [address] 12 Dec, 2012 [facility] [place] [facility] [address] [id number] [place] [address] 8467 10 Dec, 2012 [facility] [place] [facility] [address] [id number] [place] [address]36 08 Dec, 2012 [facility] [place] [facility] [address] [id number] [place] [address] Dec, [facility] [place] [facility] [address] [id number] [place] [address] 288[address] Nov, [facility] [place] [facility] [address] [id number] [place] [address] 6676 Oct, [facility] [place] [facility] [address] [id number] [place] [address]116 Aug, [facility] [place] [facility] [address] [id number] [place] [address] 8926 Aug, [facility] [place] [facility] [address] [id number] [place] [address] 4736 Aug, [facility] [place] [facility] [address] [id number] [place] [address] 1408 Aug, [facility] [place] [facility] [address] [id number] [place] [address] Aug, [facility] [place] [facility] [address] [id number] [place] [address] 48[address] Aug, [facility] [place] [facility] [address] [id number] [place] [address] Aug, [facility] [place] [facility] [address] [id number] [place] [address]127 Aug, [facility] [place] [facility] [address] [id number] [place] [address]- 2668 Aug, [facility] [place] [facility] [address] [id number] [place] [address] 4169 Aug, [facility] [place] [facility] [address] [id number] [place] [address]90 Aug, [facility] [place] [facility] [address] [id number] [place] [address] 74[address] Jul, [facility] [place] [facility] [address] [id number] [place] [address] Jul, [facility] [place] [facility] [address] [id number] [place] [address] 8727 Jul, [facility] [place] [facility] [address] [id number] [place] [address]130 Jul, [facility] [place] [facility] [address] [id number] [place] [address]- [address]95 Jul, [facility] [place] [facility] [address] [id number] [place] [address] 8838 Jul, [facility] [place] [facility] [address] [id number] [place] [address]498 Jun, [facility] [place] [facility] [address] [id number] [place] [address] Jun, [facility] [place] [facility] [address] [id number] [place] [address] 5581 May, [facility] [place] [facility] [address] [id number] [place] [address]- 6025 Apr, [facility] [place] [facility] [address] [id number] [place] [address]- 4137 Apr, [facility] [place] [facility] [address] [id number] [place] [address] 2057 Apr, [facility] [place] [facility] [address] [id number] [place] [address]- 7050 Apr, [facility] [place] [facility] [address] [id number] [place] [address] 3614 Apr, [facility] [place] [facility] [address] [id number] [place] [address] 7364 Mar, [facility] [place] [facility] [address] [id number] [place] [address]- 6592 Mar, [facility] [place] [facility] [address] [id number] [place] [address] 9673 January, [facility] [place] [facility] [address] [id number] [place] [address]- 9058 January, [facility] [address] [id number] [place] [address]- 6949 Nov, [facility] [place] [facility] [address] [id number] [place] [address] 8806 Oct, [facility] [place] [facility] [address] [id number] [place] [address]- 6616 Sep, [facility] [place] [facility] [address] [id number] [place] [address]- 3686 Sep, [facility] [place] [facility] [address] [id number] [place] [address]- 8186 Sep, [facility] [place] [facility] [address] [id number] [place] [address]- 0026 Sep, [facility] [place] [facility] [address] [id number] [place] [address]- 0746 Sep, [facility] [place] [facility] [address] [id number] [place] [address]- 9624 Sep, [facility] [place] [facility] [address] [id number] [place] [address]- 5801 Aug, [facility] [place] [facility] [address] [id number] [place] [address]- [address]204 Aug, [facility] [place] [facility] [address] [id number] [place] [address]- 2716 Aug, [facility] [place] [facility] [address] [id number] [place] [address]- 4866 Aug, [facility] [place] [facility] [address] [id number] [place] [address]- 5466 Aug, [facility] [place] [facility] [address] [id number] [place] [address]- [address] Jul, [facility] [place] [facility] [address] [id number] [place] [address]- 4096 Jul, [facility] [place] [facility] [address] [id number] [place] [address]46 Jul, [facility] [id number] [address] Jun, [facility] [id number] [address]186 Jun, [facility] [id number] [address]- 2546 Jun, [facility] [id number] [address] 9716 January, [facility] [id number] [place] [address] Dec, [facility] [id number] [address]- 2546 Oct, [facility] [id number] [place] [address]286 Oct, [facility] [id number] [address] 3056 Jun, [facility] [id number] [address]- 8366 Aug, [facility] [id number] [address]- 6866 Aug, [facility] [id number] [address] 2936 Jul, [facility] [id number] [address]796 Mar, IMMUNIZATIONS No Known Immunizations SOCIAL HISTORY Never Assessed REASON FOR VISIT Controlled Med Refill 01/30/18 PLAN OF CARE VITAL SIGNS MEDICATIONS Medication Instructions Dosage Frequency Start Date End Date Duration Status Xanax 0.5 MG Orally 3 times a day as needed 1 tablet Nov, 28 days Active RESULTS No Results PROCEDURES No Known procedures INSTRUCTIONS MEDICATIONS ADMINISTERED No Known Medications MEDICAL (GENERAL) HISTORY Type Description Date Medical History Hypertension Medical History Chronic Obstructive pulmonary disease diagnosed 2008 in [place]-PFT not done previously Medical History Gastrointestinal disorder [...]
--- OUTSIDE RECORDS SUMMARY | 2018-08-21 15:35 | XMS REPORT ---
Author Author KAITLIN TURNER Organization [facility] Address [address] [place] [address] Care Team Providers Care Cosmetology Professor Name Role Phone KAITLIN TURNER Unavailable PROBLEMS Type Condition ICD9-CM Code KVZ09-VP Code Onset Dates Condition Status SNOMED Code Problem Chronic sinusitis, unspecified J32.9 Active 91176350 Problem Other chronic pain G89.29 Active 33340505 Problem Gastroesophageal reflux disease without esophagitis K21.9 Active 573288843 Problem Slow transit constipation K59.01 Active 96582373 Problem Coronary artery disease involving [place] tribe coronary artery of chick[place] tribe heart without angina pectoris I25.10 Active 7583329455268 Problem Agoraphobia with panic attacks F40.01 Active 984368756 Problem COPD with exacerbation J44.1 Active 669171089 Problem Pericardial effusion I31.3 Active 499972585 Problem Pleural effusion on left J90 Active 91467326 Problem Generalized anxiety disorder F41.1 Active 92398090 Problem Chronic obstructive pulmonary disease, unspecified COPD type J44.9 Active 99885288 Problem Hypertension, benign I10 Active 34872277 Problem Oral phase dysphagia R13.11 Active 522524763 Problem Vitamin B 12 deficiency E53.8 Active 20727644 Problem Chronic fatigue R53.82 Active 58180822 ALLERGIES No Information ENCOUNTERS Encounter Location Date Diagnosis [facility] [address] [address] Apr, Generalized anxiety disorder F41.1 [facility] [address] [address] 3[address] Apr, Generalized anxiety disorder F41.1 [facility] [address] [address] 89[address] Apr, Flank pain R10.9 and Chronic prescription benzodiazepine use Z79.899 [facility] [id number] [address] 9[address] Mar, Flank pain R10.9 [facility] [id number] [place] [address] 33244- 4744 Mar, [facility] [address] [address] 2843 Feb, Coronary artery disease involving [place] tribe coronary artery of [place] tribe heart without angina pectoris I25.10 ; Vitamin B 12 deficiency E53.8 ; Slow transit constipation K59.01 ; Generalized anxiety disorder F41.1 and Breast cancer screening by mammogram Z12.31 [facility] [id number] [place] [address] 79673- 5311 Feb, Flank pain R10.9 [facility] [address] [address] January, [facility] [id number] [place] [address] 18356- 0435 January, Chronic obstructive pulmonary disease, unspecified COPD type J44.9 ; Pleural effusion on left J90 ; Pericardial effusion I31.3 and Generalized anxiety disorder F41.1 [facility] [address] [address] 99[address] January, Gastroenteritis K52.9 [facility] [address] [address] 6753 January, Flank pain R10.9 [facility] [address] [address] 4032 January, [facility] [id number] [id number] [place] [address] Dec [facility] [address] [address] 9383 Dec, [facility] [address] [address] 5030 Dec, [facility] [id number] [place] [address] 21767- 6911 Dec, [facility] [id number] [place] [address] 22546- 9038 Dec, [facility] [id number] [place] [address] 70989- 2802 Dec, Flank pain R10.9 [facility] [id number] [place] [address] 26454- 9723 Dec, [facility] [id number] [place] [address] 36478- 4606 Nov, [facility] [id number] [place] [address] 41344- 5485 Nov, [facility] [id number] [place] [address] 64716- 1109 Nov, [facility] [id number] [place] [address] 43067- 3835 Nov, Pericardial effusion I31.3 ; Agoraphobia with panic attacks F40.01 and Vitamin B 12 deficiency E53.8 [facility] [id number] [place] [address] 81001- 4379 Nov, [facility] [id number] [place] [address] 00938- 0779 Nov, Pneumonia of both lungs due to infectious organism, unspecified part of lung J18.9 and Flank pain R10.9 [facility] [id number] [place] [address] 93407- 5265 Nov, Pneumonia of both lungs due to infectious organism, unspecified part of lung J18.9 and Gastroenteritis K52.9 [facility] [id number] [place] [address] 64599- 5113 Oct, Pneumonia of both lungs due to infectious organism, unspecified part of lung J18.9 and Vitamin B 12 deficiency E53.8 [facility] [id number] [place] [address] [id number] Oct, [facility] [address] [address] 8092 Oct, [facility] [id number] [place] [address] 28827- 6597 Oct, [facility] [id number] [place] [address] 77593- 4587 Oct, Flank pain R10.9 [facility] [id number] [place] [address] 57366- 5529 Oct, Other chronic pain G89.29 and Unspecified abdominal pain R10.9 [facility] [id number] [place] [address] 23197- 2976 Sep, Flank pain R10.9 [facility] [id number] [place] [address] 93113- 4496 Sep, [facility] [id number] [place] [address] 84113- 5067 Sep, [facility] [id number] [place] [address] 83079- 3569 Sep, Acute non-recurrent maxillary sinusitis J01.00 [facility] [id number] [place] [address] 35006- 3106 Sep, Acute non-recurrent maxillary sinusitis J01.00 and Vitamin B 12 deficiency E53.8 [facility] [id number] [place] [address] 96070- 6893 Sep, [facility] [id number] [place] [address] 91828- 2645 Sep, [facility] [id number] [place] [address] 01346- 9762 Sep, [facility] [id number] [place] [address] 73291- 2550 Sep, COPD with exacerbation J44.1 [facility] [id number] [place] [address] 54527- 3996 Sep, Chronic obstructive pulmonary disease, unspecified COPD type J44.9 [facility] [id number] [place] [address] 44749- 2172 Aug, Flank pain R10.9 [facility] [id number] [place] [address] 80856- 0441 Jul, Flank pain R10.9 and Vitamin B 12 deficiency E53.8 [facility] [id number] [place] [address] 28361- 4726 Jul, [facility] [address] 95399- 1857 Jun, Gastroenteritis K52.9 [facility] [id number] [place] [address] 30927- 4208 May, Gastroenteritis K52.9 and Vitamin B 12 deficiency E53.8 [facility] [id number] [place] [address] 20830- 7558 Apr, Allergic conjunctivitis of left eye H10.12 and Chronic fatigue R53.82 [facility] [id number] [place] [address] 18443- 8539 Apr, Chronic sinusitis, unspecified J32.9 [facility] [id number] [place] [address] 79804- 0002 Apr, [facility] [id number] [place] [address] 76129- 8865 Feb, [facility] [id number] [place] [address] 93244- 0963 January, [facility] [id number] [place] [address] 36274- 5580 Dec, [facility] [id number] [place] [address] 13481- 6596 Oct, [facility] [id number] [place] [address] 43619- 0831 Sep, Oral phase dysphagia R13.11 and Vitamin B 12 deficiency E53.8 [facility] [address] 46169- 5152 Sep, [facility] [address] 48953- 5221 Jul, [facility] [address] 24926- 8456 Jul, [facility] [address] 60323- 8669 Jun, Bronchitis J40 ; Generalized anxiety disorder F41.1 and Chronic obstructive pulmonary disease, unspecified COPD type J44.9 [facility] [address] 17910- 6933 Jun, [facility] [address] 92261- 1683 Jun, [facility] [address] 21037- 8181 Jun, [facility] [address] 06036- 8231 May, Vitamin B 12 deficiency E53.8 ; Essential (primary) hypertension I10 ; Generalized anxiety disorder F41.1 ; Pain in joint, ankle and foot 719.47 ; Arthritis M19.90 ; Chronic obstructive pulmonary disease, unspecified COPD type J44.9 and Encounter for immunization Z23 [facility] [id number] [place] [address] 83715- 4836 Apr, [facility] [address] 40074- 8968 Apr, [facility] [id number] [place] [address] 43027- 4472 Mar, [facility] [address] 17740- 2311 January, [facility] [address] [address]- 3526 Dec, [facility] [id number] [place] [address] 17995- 3280 Oct, [facility] [id number] [place] [address] 32974- 8506 Oct, [facility] [id number] [place] [address] 46611- 4212 Oct, Hypertension, benign I10 and Vitamin B 12 deficiency E53.8 [facility] [id number] [place] [address] 94292- 7985 Oct, [facility] [id number] [place] [address] 98554- 4370 Oct, [facility] [id number] [place] [address] 47278- 2918 Oct, Irritable bowel syndrome with diarrhea K58.0 [facility] [id number] [place] [address] 91555- 7607 Oct, [facility] [id number] [place] [address] 16849- 6265 Oct, Vitamin B 12 deficiency E53.8 ; Hypertension, benign I10 and Chronic obstructive pulmonary disease, unspecified COPD type J44.9 [facility] [address] [place] [address] 18818- 8649 Sep, Irritable bowel syndrome with diarrhea K58.0 ; Hypertension , benign I10 ; Chronic obstructive pulmonary disease, unspecified COPD type J44.9 ; Edema, unspecified type R60.9 ; Vision changes H53.9 and Vitamin B 12 deficiency E53.8 [facility] [id number] [place] [address] 00452- 3581 Sep, [facility] [id number] [place] [address] 66439- 7093 Jul, Degenerative disc disease 722.6 [facility] [address] [place] [address] 43154- 1976 Jun, Pain in right leg M79.604 ; Encounter for immunization Z23 and Pain of left leg M79.605 [facility] [id number] [place] [address] 91702 2546 Jun, [facility] [address] 04038 2546 Jun, [facility] [id number] [place] [address] 19682- 5388 Jun, Degenerative disc disease 722.6 [facility] [id number] [place] [address] 27097- 2546 Jun, [facility] [id number] [place] [address] 64990- 0982 May, Seizures 780.39 and Autonomic peripheral neuropathy 337.9 [facility] [id number] [place] [address] 16897- 6923 18 May, 2015 [facility] [id number] [place] [address] 50847- 1991 May, [facility] [id number] [place] [address] 57628- 1974 May, Degenerative disc disease 722.6 [facility] [id number] [place] [address] 18997 2546 May, [facility] [id number] [place] [address] 90986 2549 Mar, [facility] [id number] [place] [address] 72405- 2541 Mar, Degenerative disc disease 722.6 ; Spinal stenosis 724.00 and HTN (hypertension) 401.9 [facility] [id number] [place] [address] 551926- 4345 Feb, Cutaneous horn 702.8 [facility] [address] [address]- 9566 15 Feb, 2015 Fatigue 780.79 [facility] [id number] [place] [address] 966557- 5021 08 Feb, 2015 Fatigue 780.79 ; Arthritis 716.90 ; Spinal stenosis 724.00 ; Sinusitis 473.9 and Cutaneous horn 702.8 [facility] [address] [place] [address] 98819- 7702 January, [facility] [id number] [place] [address] 72662- 5654 Dec, [facility] [id number] [place] [address] 35815- 2926 Dec, [facility] [id number] [place] [address] 25706- 1366 Nov, [facility] [id number] [place] [address] 89086- 5446 Nov, [facility] [address] [place] [address] 40842- 7720 Oct, [facility] [address] [address]- 1111 Oct, [facility] [address] [address]- 0118 Oct, [facility] [address] [address]- 3066 Oct, [facility] [address] 8026 Oct, [facility] [id number] 7490 Oct, [facility] [address] [address]- 0081 Sep, [facility] [place] [facility] [address] [id number] [place] [address]- 5533 Sep, [facility] [place] [facility] [address] [id number] [place] [address]- 8945 Sep, [facility] [place] [facility] [address] [id number] [place] [address]- 8201 Sep, [facility] [place] [facility] [address] [id number] [place] [address]- 1400 Sep, [facility] [place] [facility] [address] [id number] [place] [address]- 9885 Sep, [facility] [place] [facility] [address] [id number] [place] [address]- 3417 Sep, [facility] [place] [facility] [address] [id number] [place] [address]- 9265 Sep, [facility] [place] [facility] [address] [id number] [place] [address]- 5989 Sep, [facility] [place] [facility] [address] [id number] [place] [address]- 3415 Sep, [facility] [place] [facility] [address] [id number] [place] [address]- 0526 Sep, [facility] [place] [facility] [address] [id number] [place] [address]- 3816 Sep, [facility] [place] [facility] [address] [id number] [place] [address]- 4596 Sep, [facility] [place] [facility] [address] [id number] [place] [address]- 6482 Sep, [facility] [place] [facility] [address] [id number] [place] [address]- 8771 Aug, [facility] [place] [facility] [address] [id number] [place] [address]- 9498 Aug, [facility] [place] [facility] [address] [id number] [place] [address]- 1763 Aug, [facility] [place] [facility] [address] [id number] [place] [address]- 7855 Aug, [facility] [place] [facility] [address] [id number] [place] [address]- 9872 Jul, [facility] [place] [facility] [address] [id number] [place] 0262 Jul, [facility] [place] [facility] [address] [id number] [place] [address]- 3829 May, [facility] [place] [facility] [address] [id number] [place] [address]- 5990 May, [facility] [place] [facility] [address] [id number] [place] [address]- 5327 May, [facility] [place] [facility] [address] [id number] [place] [address]- 8431 May, [facility] [place] [facility] [address] [id number] [place] [address]- 7290 May, [facility] [place] [facility] [address] [id number] [place] [address]- 8720 May, [facility] [place] [facility] [address] [id number] [place] [address]- 5488 Apr, [facility] [place] [facility] [address] [id number] [place] [address]- 3544 Apr, [facility] [place] [facility] [address] [id number] [place] [address]- 4064 Mar, [facility] [place] [facility] [address] [id number] [place] [address]- 7691 Mar, [facility] [place] [facility] [address] [id number] [place] [address]- 0179 Mar, [facility] [place] [facility] [address] [id number] [place]- 9504 Mar, [facility] [place] [facility] [address] [id number] [place] [address]- 9687 Mar, [facility] [place] [facility] [address] [id number] [place] [address]- 5537 Mar, [facility] [place] [facility] [address] [id number] [place] [address]- 3981 Mar, [facility] [place] [facility] [address] [id number] [place] [address]- 9122 Mar, [facility] [place] [facility] [address] [id number] [place] [address]- 3215 Feb, [facility] [place] [facility] [address] [id number] [place] [address]- 4542 Feb, [facility] [place] [facility] [address] [id number] [place] [address]- 1285 January, [facility] [place] [facility] [address] [id number] [place] [address]- 4097 January, [facility] [place] [facility] [address] [id number] [place] [address]- 6135 January, [facility] [place] [facility] [address] [id number] [place] [address]- 2340 January, [facility] [place] [facility] [address] [id number] [place] [address]- 2937 Dec, [facility] [place] [facility] [address] [id number] [place] [address]- 4104 Dec, [facility] [place] [facility] [address] [id number] [place] [address]- 9740 Oct, [facility] [place] [facility] [address] [id number] [place] [address]- 8077 Oct, [facility] [place] [facility] [address] [id number] [place] [address]- 3869 Oct, [facility] [place] [facility] [address] [id number] [place] [address]- 2197 Oct, [facility] [address] [id number] [place] [address]- 4782 Sep, [facility] [place] [facility] [address] [id number] [place] [address]- 5468 Sep, [facility] [address] [id number] [place] [address]- 2269 Aug, [facility] [place] [facility] [address] [id number] [place] [address]- 8837 Aug, [facility] [address] [id number] [place] [address]- 1603 Aug, [facility] [place] [facility] [address] [id number] [place] [address]- 4388 Aug, [facility] [place] [facility] [address] [id number] [place] [address]- 1136 Aug, [facility] [place] [facility] [address] [id number] [place] [address]- 2044 Aug, [facility] [place] [facility] [address] [id number] [place] [address]- 3693 Aug, [facility] [place] [facility] [address] [id number] [place] [address]- 0423 Aug, [facility] [place] [facility] [address] [id number] [place] [address]- 3139 Aug, [facility] [place] [facility] [address] [id number] [address]- 3879 Aug, [facility] [place] [facility] [address] [id number] [place] [address]- 3656 Jul, [facility] [place] [facility] [address] [id number] [place] [address]- 4075 Jul, [facility] [place] [facility] [address] [id number] [place] [address]- 5927 Jun, [facility] [place] [facility] [address] [id number] [place] [address]- 3338 29 Jun, 2013 [facility] [place] [facility] [address] [id number] [place] [address]- 7161 Jun, [facility] [place] [facility] [address] [id number] [place] [address]- 5242 16 Jun, 2013 [facility] [place] [facility] [address] [id number] [place] [address]- 7628 Jun, [facility] [place] [facility] [address] [id number] [place] [address] 13 May, 2013 [facility] [place] [facility] [address] [id number] [place] [address] 13 May, 2013 [facility] [place] [facility] [address] [id number] [place] [address] 12 May, 2013 [facility] [place] [facility] [address] [id number] [place] [address] 06 May, 2013 [facility] [place] [facility] [address] [id number] [place] [address] 03 May, 2013 [facility] [place] [facility] [address] [id number] [place] [address] Apr, [facility] [place] [facility] [address] [id number] [place] [address] Mar, [facility] [place] [facility] [address] [id number] [place] [address] 15 Mar, 2013 [facility] [place] [facility] [address] [id number] [place] [address] Mar, [facility] [place] [facility] [address] [id number] [place] [address] Mar, [facility] [place] [facility] [address] [id number] [place] [address] Mar, [facility] [place] [facility] [address] [id number] [place] [address] Mar, [facility] [place] [facility] [address] [id number] [place] [address] Mar, [facility] [address] [id number] [place] [address] Mar, [facility] [address] [id number] [place] [address] Mar, [facility] [address] [id number] [place] [address] Feb, [facility] [address] [id number] [place] [address] Feb, [facility] [address] [id number] [place] [address] Feb, [facility] [address] [id number] [place] [address] January, [facility] [address] [id number] [place] [address] January, [facility] [address] [id number] [place] [address] January, [facility] [address] [id number] [place] [address] January, [facility] [address] [id number] [place] [address] Dec, [facility] [place] [facility] [address] [id number] [place] [address] 17 Dec, 2012 [facility] [place] [facility] [address] [id number] [place] [address] 12 Dec, 2012 [facility] [place] [facility] [address] [id number] [place] [address]- 2017 10 Dec, 2012 [facility] [place] [facility] [address] [id number] [place] [address] 08 Dec, 2012 [facility] [place] [facility] [address] [id number] [place] [address] Dec, [facility] [place] [facility] [address] [id number] [place] [address] Nov, [facility] [place] [facility] [address] [id number] [place] [address] Oct, [facility] [place] [facility] [address] [id number] [place] [address] Aug, [facility] [place] [facility] [address] [id number] [place] [address] Aug, [facility] [place] [facility] [address] [id number] [place] [address] Aug, [facility] [place] [facility] [address] [id number] [place] [address] Aug, [facility] [place] [facility] [address] [id number] [place] [address] Aug, [facility] [place] [facility] [address] [id number] [place] [address] Aug, [facility] [place] [facility] [address] [id number] [place] [address] Aug, [facility] [place] [facility] [address] [id number] [place] [address] Aug, [facility] [place] [facility] [address] [id number] [place] [address] Aug, [facility] [place] [facility] [address] [id number] [place] [address] Aug, [facility] [place] [facility] [address] [id number] [place] [address] Aug, [facility] [place] [facility] [address] [id number] [place] [address] Jul, [facility] [place] [facility] [address] [id number] [place] [address] Jul, [facility] [place] [facility] [address] [id number] [place] [address] Jul, [facility] [place] [facility] [address] [id number] [place] [address] Jul, [facility] [place] [facility] [address] [id number] [place] [address] Jul, [facility] [place] [facility] [address] [id number] [place] [address] Jul, [facility] [place] [facility] [address] [id number] [place] [address] Jun, [facility] [place] [facility] [address] [id number] [place] [address] Jun, [facility] [place] [facility] [address] [id number] [place] [address] May, [facility] [place] [facility] [address] [id number] [place] [address] Apr, [facility] [place] [facility] [address] [id number] [place] [address] Apr, [facility] [place] [facility] [address] [id number] [place] [address]26 Apr, [facility] [place] [facility] [address] [id number] [place] [address] Apr, [facility] [place] [facility] [address] [id number] [place] [address] Apr, [facility] [place] [facility] [address] [id number] [place] [address] Mar, [facility] [place] [facility] [address] [id number] [place] [address] Mar, [facility] [place] [facility] [address] [id number] [place] [address] January, [facility] [place] [facility] [address] [id number] [place] [address] January, [facility] [address] [id number] [place] [address] Nov, [facility] [place] [facility] [address] [id number] [place] [address] Oct, [facility] [place] [facility] [address] [id number] [place] [address] Sep, [facility] [place] [facility] [address] [id number] [place] [address] Sep, [facility] [place] [facility] [address] [id number] [place] [address] Sep, [facility] [place] [facility] [address] [id number] [place] [address] Sep, [facility] [place] [facility] [address] [id number] [place] [address] Sep, [facility] [place] [facility] [address] [id number] [place] [address] Sep, [facility] [place] [facility] [address] [id number] [place] [address] Aug, [facility] [place] [facility] [address] [id number] [place] [address] Aug, [facility] [place] [facility] [address] [id number] [place] [address] Aug, [facility] [place] [facility] [address] [id number] [place] [address] Aug, [facility] [place] [facility] [address] [id number] [place] [address] Aug, [facility] [place] [facility] [address] [id number] [place] [address] Jul, [facility] [place] [facility] [address] [id number] [place] [address] Jul, [facility] [place] [facility] [address] [id number] [place] [address] Jul, [facility] [id number] [place] [address] Jun, [facility] [id number] [place] [address] Jun, [facility] [id number] [place] [address] Jun, [facility] [id number] [place] [address] January, [facility] [id number] [place] [address]- [address] Dec, [facility] [id number] [place] [address]- [address] Oct, [facility] [id number] [place] [address]- [address] Oct, [facility] [id number] [place] [address]- [address] Jun, [facility] [id number] [place] [address] Aug, [facility] [id number] [place] [address] Aug, [facility] [id number] [place] [address] Jul, [facility] [id number] [place] [address] Mar, IMMUNIZATIONS No Known Immunizations SOCIAL HISTORY Never Assessed REASON FOR VISIT Medication Refills PLAN OF CARE VITAL SIGNS MEDICATIONS Medication Instructions Dosage Frequency Start Date End Date Duration Status Omeprazole 20 mg Orally Once a day 1 capsule 24h 90 days Active ProAir HFA 108 (90 Base) MCG/ACT Inhalation every 6 hrs 2 puffs as needed 6h Active Cetirizine HCl 10 mg Orally Once a day 1 tablet 24h 90 days Active RESULTS No Results PROCEDURES No Known procedures INSTRUCTIONS MEDICATIONS ADMINISTERED No Known Medications MEDICAL (GENERAL) HISTORY Type Description Date Medical History Hypertension Medical History Chronic Obstructive pulmonary disease diagnosed 2008 in [place]-PFT not done previously Medical History Gastrointestinal disorder [...]
--- OUTSIDE RECORDS SUMMARY | 2018-08-21 15:36 | XMS REPORT ---
Author Author KAITLIN TURNER Organization [facility] [place] Address [address] 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 and sioux heart without angina pectoris I25.10 Active [id number] Problem Agoraphobia with panic attacks F40.01 Active 136168996 Problem COPD with exacerbation J44.1 Active 198902672 Problem Pericardial effusion I31.3 Active 298391514 Problem Pleural effusion on left J90 Active 84433872 Problem Generalized anxiety disorder F41.1 Active 00990721 Problem Chronic obstructive pulmonary disease, unspecified COPD type J44.9 Active 42687596 Problem Hypertension, benign I10 Active 07239664 Problem Oral phase dysphagia R13.11 Active 859561823 Problem Vitamin B 12 deficiency E53.8 Active 66818474 Problem Chronic fatigue R53.82 Active 46620443 ALLERGIES No Information ENCOUNTERS Encounter Location Date Diagnosis [facility] [place] [id number], [place] [address] Apr, Generalized anxiety disorder F41.1 [facility] [place] [address], [place] [address] Apr, Flank pain R10.9 and Chronic prescription benzodiazepine use Z79.899 [facility] [place] [id number], [place] [address] Mar, Flank pain R10.9 [facility] [place] [address], [place] [address] Mar, [facility] [place] [address] [place] [address] 43722- 6640 Feb, Coronary artery disease involving assinibo[place] and sioux coronary artery of assiniboine and sioux heart without angina pectoris I25.10 ; Vitamin B 12 deficiency E53.8 ; Slow transit constipation K59.01 ; Generalized anxiety disorder F41.1 and Breast cancer screening by mammogram Z12.31 [facility] [place] [id number] [place] [address] 25210- 7531 Feb, Flank pain R10.9 [place] [id number] [place] [address] 99604- 1890 January, [place] [id number] [place] [address] 13198- 2854 January, Chronic obstructive pulmonary disease, unspecified COPD type J44.9 ; Pleural effusion on left J90 ; Pericardial effusion I31.3 and Generalized anxiety disorder F41.1 [facility] [place] [address], [place] [address] January, Gastroenteritis K52.9 [facility] [place] [id number] [place] [address] 53694- 0106 January, Flank pain R10.9 [facility] [place] [address], [place] [address] January, [address] [id number] [place] [address] Dec [facility] [place] [address] [facility] [id number] [address] Dec, [facility] [place] [address], [place] [address] 3914 Dec, [facility] [place] [id number], [place] [address] 6200 Dec, [facility] [place] [address], [place] [address] 7603 Dec, [facility] [place] [address], [place] [address]289 Dec, Flank pain R10.9 [facility] [place] [address], [place] [address] 2290 Dec, [facility] [place] [id number] [place] [address] 31437- 1310 Nov, [facility] [place] [address] [place] [address] 79536- 3545 Nov, [facility] [place] [address] [place] [address] 26456- 6680 Nov, [facility] [place] [id number] [place] [address] 28582- 6148 Nov, Pericardial effusion I31.3 ; Agoraphobia with panic attacks F40.01 and Vitamin B 12 deficiency E53.8 [facility] [place] [address] [place] [address] 39955- 8376 Nov, [facility] [place] [address] [place] [address] 78564- 7236 Nov, Pneumonia of both lungs due to infectious organism, unspecified part of lung J18.9 and Flank pain R10.9 [facility] [place] [address], [place] [address] 67[address] Nov, Pneumonia of both lungs due to infectious organism, unspecified part of lung J18.9 and Gastroenteritis K52.9 [facility] [place] [address], [place] [address] Oct, Pneumonia of both lungs due to infectious organism, unspecified part of lung J18.9 and Vitamin B 12 deficiency E53.8 [facility] [id number] [place] [address] [id number] Oct, [facility] [place] [address] [place] [address] 07355- 0100 Oct, [facility] [place] [address] [place] [address] 06260- 4757 Oct, [facility] [place] [id number] [place] [address] 98745- 2135 Oct, Flank pain R10.9 [facility] [place] [id number] [place] [address] 51371- 1093 Oct, Other chronic pain G89.29 and Unspecified abdominal pain R10.9 [facility] [place] [id number] [place] [address] 19566- 6528 Sep, Flank pain R10.9 [facility] [place] [id number] [place] [address] 91527- 5458 Sep, [facility] [place] [id number] [place] [address] 00456- 0376 Sep, [facility] [place] [id number] [place] [address] 00338- 2653 Sep, Acute non-recurrent maxillary sinusitis J01.00 [facility] [place] [id number] [place] [address] 50999- 6812 Sep, Acute non-recurrent maxillary sinusitis J01.00 and Vitamin B 12 deficiency E53.8 [facility] [place] [id number] [place] [address] 09645- 1053 Sep, [facility] [place] [id number] [place] [address] 72096- 5082 Sep, [facility] [place] [id number] [place] [address] 87281- 4666 Sep, [facility] [place] [id number] [place] [address] 41746- 1063 Sep, COPD with exacerbation J44.1 [facility] [place] [id number] [place] [address] 73401- 4276 Sep, Chronic obstructive pulmonary disease, unspecified COPD type J44.9 [place] [id number] [place] [address] 38958- 6155 Aug, Flank pain R10.9 [place] [address] 69889- 4768 Jul, Flank pain R10.9 and Vitamin B 12 deficiency E53.8 [place] [address] 74686- 0846 Jul, [address] [address] 32596- 4023 Jun, Gastroenteritis K52.9 [address] 69162- 4438 May, Gastroenteritis K52.9 and Vitamin B 12 deficiency E53.8 [place] 57579- 3383 Apr, Allergic conjunctivitis of left eye H10.12 and Chronic fatigue R53.82 [place] [id number] [place] [address] 00317- 6100 Apr, Chronic sinusitis, unspecified J32.9 [place] [id number] [place] [address] 79292- 4977 Apr, [place] [id number] [place] [address] 40980- 0153 Feb, [place] [id number] [place] [address] 77237- 7922 January, [place] [id number] [place] [address] 12398- 2435 Dec, [place] [address] 17084- 5201 Oct, [place] [id number] [place] [address] 00912- 1791 Sep, Oral phase dysphagia R13.11 and Vitamin B 12 deficiency E53.8 [facility] [place] [address] [place] [address] 28644- 3907 Sep, [facility] [place] [id number] [place] [address] 71562- 4234 Jul, [facility] [place] [id number] [place] [address] 48767- 0184 Jul, [facility] [place] [address] 38335- 3975 Jun, Bronchitis J40 ; Generalized anxiety disorder F41.1 and Chronic obstructive pulmonary disease, unspecified COPD type J44.9 [place] [address] 01200- 5986 Jun, [place] [id number] [place] [address] 26830- 9137 Jun, [place] [address] 69676- 2704 Jun, [facility] [place] [id number] [place] [address] 06230- 7991 May, Vitamin B 12 deficiency E53.8 ; Essential (primary) hypertension I10 ; Generalized anxiety disorder F41.1 ; Pain in joint, ankle and foot 719.47 ; Arthritis M19.90 ; Chronic obstructive pulmonary disease, unspecified COPD type J44.9 and Encounter for immunization Z23 [place] [id number] [place] [address] 59807- 5539 Apr, [address] [id number] [place] [address] 41521- 7210 Apr, [address] [id number] [place] [address] 10541- 7180 Mar, [facility] [place] [id number] [place] [address] 89064- 3846 January, [place] [id number] [place] [address] 31113- 6105 Dec, [facility] [place] [address], [place] [address]- 2786 Oct, [facility] [place] [id number] [place] [address] 83735- 6353 Oct, [facility] [place] [address] [place] [address] 44014- 4363 Oct, Hypertension, benign I10 and Vitamin B 12 deficiency E53.8 [facility] [place] [id number] [place] [address] 61218- 8231 Oct, [facility] [place] [id number] [place] [address] 75376- 7407 Oct, [facility] [place] [id number] [place] [address] 53688- 9208 Oct, Irritable bowel syndrome with diarrhea K58.0 [place] [id number] [place] [address] 20535- 7486 Oct, [facility] [place] [address] [place] [address] 64889- 1907 Oct, Vitamin B 12 deficiency E53.8 ; Hypertension, benign I10 and Chronic obstructive pulmonary disease, unspecified COPD type J44.9 [place] [address] [place] [address] 71274- 3763 Sep, Irritable bowel syndrome with diarrhea K58.0 ; Hypertension , benign I10 ; Chronic obstructive pulmonary disease, unspecified COPD type J44.9 ; Edema, unspecified type R60.9 ; Vision changes H53.9 and Vitamin B 12 deficiency E53.8 [place] [address] [place] [address] 56408- 1467 Sep, [facility] [place] [id number] [place] [address] 30265- 7620 Jul, Degenerative disc disease 722.6 [place] [id number] [place] [address] 90833- 1417 Jun, Pain in right leg M79.604 ; Encounter for immunization Z23 and Pain of left leg M79.605 [facility] [place] [id number] [place] [address] 07250- 9236 Jun, [facility] [place] [id number] [place] [address] 02918 2546 Jun, [facility] [place] [address] 72141 254 Jun, Degenerative disc disease 722.6 [facility] [place] [id number] [place] [address] 90653 2546 Jun, [facility] [place] [id number] [place] [address] 60776- 7781 May, Seizures 780.39 and Autonomic peripheral neuropathy 337.9 [facility] [place] [address] 88012- 6997 18 May, 2015 [facility] [place] [id number] [place] [address] 42340- 2543 17 May, 2015 [facility] [place] [id number] [place] [address] 74054- 8407 08 May, 2015 Degenerative disc disease 722.6 [facility] [place] [id number] [place] [address] 64336- 2546 May, [facility] [place] [id number] [place] [address] 51181- 2549 Mar, [facility] [place] [id number] [place] [address] 16157- 254 Mar, Degenerative disc disease 722.6 ; Spinal stenosis 724.00 and HTN (hypertension) 401.9 [facility] [place] [id number] [place] [address] 24920- 2548 Feb, Cutaneous horn 702.8 [facility] [place] [id number] [place] [address] 61514 7400 15 Feb, 2015 Fatigue 780.79 [facility] [address], [place] [address]- 6661 08 Feb, 2015 Fatigue 780.79 ; Arthritis 716.90 ; Spinal stenosis 724.00 ; Sinusitis 473.9 and Cutaneous horn 702.8 [facility] [address], [place] [address]- 9166 January, [facility] [id number] [place] [address] 09879- 7596 Dec, [facility] [address], [place] [address]- 0322 Dec, [facility] [id number] [place] [address] 26073- 3586 Nov, [facility] [address], [place] [address]- 9986 Nov, [facility] [id number] [place] [address] 29148- 5774 Oct, [facility] [address], [place] [address]- 9736 Oct, [facility] [address], [place] [address]- 1536 Oct, [facility] [address], [place] [address]- 7026 Oct, [facility] [address], [place] [address]- 7656 Oct, [facility] [address], [place] [address]- 0046 Oct, [facility] [address], [place] [address]- 3366 Sep, [facility] [address], [place] [address]- 4086 Sep, [facility] [id number] [address]- 5571 Sep, [facility] [address] [id number] [place] [address]- 1348 Sep, [facility] [address] [id number] [place] [address]- 6037 Sep, [facility] [address] [id number] [place] [address]- 9267 Sep, [facility] [address] [id number] [place] [address]- 4567 Sep, [facility] [address] [id number] [place] [address]- 6404 Sep, [facility] [address] [id number] [place] [address]- 6741 Sep, [facility] [address] [id number] [place] [address]- 3197 Sep, [facility] [address] [id number] [place] [address]- 7829 Sep, [facility] [address] [id number] [place] [address]- 3920 Sep, [facility] [address] [id number] [place] [address]- 2200 Sep, [facility] [address] [id number] [place] [address]- 2719 Sep, [facility] [address] [id number] [place] [address]- 4318 Aug, [facility] [place] [facility] [address] [id number] [place] [address]- 2595 Aug, [facility] [place] [facility] [address] [id number] [place] [address]- 6858 Aug, [facility] [address] [id number] [place] [address]- 0986 Aug, [facility] [place] [facility] [address] [id number] [place] [address]- 4189 Jul, [facility] [place] [facility] [address] [id number] [place] [address]- 7840 Jul, [facility] [place] [facility] [address] [id number] [place] [address]- 4034 May, [facility] [place] [facility] [address] [id number] [place] [address]- 3228 May, [facility] [place] [facility] [address] [id number] [place] [address]- 6647 May, [facility] [place] [facility] [address] [id number] [place] [address]- 5799 May, [facility] [place] [facility] [address] [id number] [place] [address]- 7976 May, [facility] [place] [facility] [address] [id number] [place] [address]- 7200 May, [facility] [place] [facility] [address] [id number] [place] [address]- 0532 Apr, [facility] [place] [facility] [address] [id number] [place] [address]- 9164 Apr, [facility] [place] [facility] [address] [id number] [place] [address]- 6637 Mar, [facility] [place] [facility] [address] [id number] [address]- 0100 Mar, [facility] [place] [facility] [address] [id number] [place] [address]- 6474 Mar, [facility] [place] [facility] [address] [id number] [place] [address]- 4568 Mar, [facility] [place] [facility] [address] [id number] [place] [address]- 1987 Mar, [facility] [place] [facility] [address] [id number], [place] [address]- 1433 Mar, [facility] [place] [facility] [address] [id number] [place] [address]- 6292 Mar, [facility] [place] [facility] [address] [id number] [place] [address] Mar, [facility] [place] [facility] [address] [id number] [place] [address] Feb, [facility] [place] [facility] [address] [id number] [place] [address] Feb, [facility] [place] [facility] [address] [id number] [place] [address] January, [facility] [place] [facility] [address] [id number] [place] [address] January, [facility] [place] [facility] [address] [id number] [place] [address] January, [facility] [place] [facility] [address] [id number] [place] [address] January, [facility] [place] [facility] [address] [id number] [place] [address] Dec, [facility] [place] [facility] [address] [id number] [place] [address] Dec, [facility] [place] [facility] [address] [id number] [place] [address] Oct, [facility] [place] [facility] [address] [id number] [place] [address] Oct, [facility] [place] [facility] [address] [id number] [place] [address] Oct, [facility] [place] [facility] [address] [id number] [place] [address] Oct, [facility] [place] [facility] [address] [id number] [place] [address] Sep, [facility] [place] [facility] [address] [id number] [place] [address] Sep, [facility] [address] [id number] [place] [address] Aug, [facility] [place] [facility] [address] [id number] [place] [address] Aug, [facility] [place] [facility] [address] [id number] [place] [address] Aug, [facility] [place] [facility] [address] [id number] [place] [address] Aug, [facility] [place] [facility] [address] [id number] [place] [address] Aug, [facility] [place] [facility] [address] [id number] [place] [address] Aug, [facility] [place] [facility] [address] [id number] [place] [address] Aug, [facility] [place] [facility] [address] [id number] [place] [address] Aug, [facility] [place] [facility] [address] [id number] [place] [address] Aug, [facility] [place] [facility] [address] [id number] [place] [address] Aug, [facility] [place] [facility] [address] [id number] [place] [address] Jul, [facility] [place] [facility] [address] [id number] [place] [address] Jul, [facility] [place] [facility] [address] [id number] [place] [address] Jun, [facility] [place] [facility] [address] [id number] [place] [address] Jun, [facility] [place] [facility] [address] [id number] [place] [address] Jun, [facility] [place] [facility] [address] [id number] [place] [address] 16 Jun, 2013 [facility] [place] [facility] [address] [id number] [place] [address] Jun, [facility] [place] [facility] [address] [address] [id number] [place] [address] May, [facility] [place] [facility] [address] [id number] [place] [address] 13 May, 2013 [facility] [place] [facility] [address] [id number] [place] [address] 12 May, 2013 [facility] [place] [facility] [address] [id number] [place] [address] 06 May, 2013 [facility] [place] [facility] [address] [id number] [place] [address] May, [facility] [place] [facility] [address] [id number] [place] [address] Apr, [facility] [place] [facility] [address] [id number] [place] [address] Mar, [facility] [place] [facility] [address] [id number] [place] [address] Mar, [facility] [place] [facility] [address] [id number] [place] [address] Mar, [facility] [place] [facility] [address] [id number] [address] Mar, [facility] [place] [facility] [address] [id number] [place] [address] Mar, [facility] [place] [facility] [address] [id number] [place] [address] Mar, [facility] [place] [facility] [address] [id number] [place] [address] Mar, [facility] [place] [facility] [address] [id number] [place] [address] Mar, [facility] [address] [id number] [place] [address] Mar, [facility] [address] [id number] [place] [address] Feb, [facility] [address] [id number] [place] [address] Feb, [facility] [address] [id number] [place] [address] Feb, [facility] [address] [id number] [place] [address] 44[address] January, [facility] [address] [id number] [place] [address] January, [facility] [address] [id number] [place] [address] January, [facility] [address] [id number] [place] [address] January, [facility] [address] [id number] [place] [address] 4[address] Dec, [facility] [address] [id number] [place] [address] Dec, [facility] [address] [id number] [place] [address] Dec, [facility] [address] [id number] [place] [address] 9469 Dec, [facility] [address] [id number] [place] [address] Dec, [facility] [address] [id number] [place] [address]26 Dec, [facility] [address] [id number] [place] [address] Nov, [facility] [place] [facility] [address] [id number] [place] [address] Oct, [facility] [place] [facility] [address] [id number] [place] [address] Aug, [facility] [place] [facility] [address] [id number] [place] [address] 6656 Aug, [facility] [place] [facility] [address] [id number] [place] [address] Aug, [facility] [place] [facility] [address] [id number] [place] [address] 8976 Aug, [facility] [place] [facility] [address] [id number] [place] [address] 1326 Aug, [facility] [place] [facility] [address] [id number] [place] [address] 3416 Aug, [facility] [place] [facility] [address] [id number] [place] [address] Aug, [facility] [place] [facility] [address] [id number] [place] [address] 1396 Aug, [facility] [place] [facility] [address] [facility] [id number] [place] [address]106 Aug, [facility] [place] [facility] [address] [id number] [place] [address] 0896 Aug, [facility] [place] [facility] [address] [id number], [place] [address] Aug, [facility] [place] [facility] [address] [id number] [place] [address] 90[address] Jul, [facility] [place] [facility] [address] [id number] [place] [address] 7686 Jul, [facility] [place] [facility] [address] [facility] [id number] [place] [address] 20[address] Jul, [facility] [place] [facility] [address] [id number], [place] [address] Jul, [facility] [place] [facility] [address] [id number] [place] [address] 9072 Jul, [facility] [place] [facility] [address] [id number] [place] [address] 6617 Jul, [facility] [place] [facility] [address] [id number] [place] [address] 3446 Jun, [facility] [place] [facility] [address] [id number] [place] [address] 5266 Jun, [facility] [place] [facility] [address] [id number] [place] [address] 40[address] May, [facility] [place] [facility] [address] [id number] [place] [address] 07[address] Apr, [facility] [place] [facility] [address] [id number] [place] [address] 4561 Apr, [facility] [place] [facility] [address] [id number] [place] [address] 1173 Apr, [facility] [place] [facility] [address] [id number] [place] [address] 6150 Apr, [facility] [place] [facility] [address] [facility] [id number] [place] [address] 4332 Apr, [facility] [place] [facility] [address] [id number] [place] [address] 8420 Mar, [facility] [place] [facility] [address] [id number] [place] [address] 3526 Mar, [facility] [place] [facility] [address] [id number] [place] [address]32 January, [facility] [place] [facility] [address] [facility] [id number] [place] [address] 9279 January, [facility] [place] [facility] [address] [id number] [place] [address] Nov, [facility] [place] [facility] [address] [id number] [place] [address] 6964 Oct, [facility] [place] [facility] [address] [id number] [place] [address] 5336 Sep, [facility] [place] [facility] [address] [id number] [place] [address] 2546 Sep, [facility] [place] [facility] [address] [id number] [place] [address]- 8146 Sep, [facility] [place] [facility] [address] [id number] [place] [address]- 0968 Sep, [facility] [place] [facility] [address] [id number] [place] [address]- 3617 Sep, [facility] [place] [facility] [address] [id number] [place] [address]- 2068 Sep, [facility] [place] [facility] [address] [id number] [place] [address]- 0667 Aug, [facility] [place] [facility] [address] [id number] [place] [address]- 7067 Aug, [facility] [place] [facility] [address] [id number] [place] [address]- 2176 Aug, [facility] [place] [facility] [address] [id number] [place] [address]- 7958 Aug, [facility] [place] [facility] [address] [id number] [place] [address]- 1191 Aug, [facility] [place] [facility] [address] [id number] [place] [address]- 2718 Jul, [facility] [place] [facility] [address] [id number] [place] [address]- 8156 Jul, [facility] [place] [facility] [address] [id number] [place] [address]- 2546 Jul, [facility] [place] [facility] [address] [id number] [place] [address]- 9240 Jun, [facility] [place] [address] [id number] [address] Jun, [facility] [place] [id number], [place] [address]26 Jun, [facility] [place] [id number], [place] [address] January, [facility] [place] [id number], [place] [address]55 Dec, [facility] [place] [id number], [place] [address] Oct, [facility] [place] [id number] [place] [address] 2810 Oct, [facility] [place] [id number], [place] [address] 8761 Jun, [facility] [place] [id number], [place] [address]- 2468 Aug, [facility] [place] [id number] [address] Aug, [facility] [place] [id number], [place] [address] Jul, [facility] [place] [address] [id number], [place] [address]18 Mar, IMMUNIZATIONS No Known Immunizations SOCIAL HISTORY Never Assessed REASON FOR VISIT Reschedule appointment PLAN OF CARE VITAL SIGNS MEDICATIONS Unknown Medications RESULTS No Results PROCEDURES No Known procedures INSTRUCTIONS MEDICATIONS ADMINISTERED No Known Medications MEDICAL (GENERAL) HISTORY Type Description Date Medical History Hypertension Medical History Chronic Obstructive pulmonary disease diagnosed 2008 in [place]-PFT not done previously Medical History Gastrointestinal disorder [...]
--- OUTSIDE RECORDS SUMMARY | 2018-08-21 15:36 | XMS REPORT ---
Author Author CATHERINE GREER [facility] MICHAEL Address [address] [place] [address] Care Team Providers Care Rn Shift Mgr Name Role Phone CATHERINE GREER Unavailable PROBLEMS Type Condition ICD9-CM Code ZST30-WR Code Onset Dates Condition Status SNOMED Code Problem Chronic sinusitis, unspecified J32.9 Active 00786934 Problem Other chronic pain G89.29 Active 65576533 Problem Gastroesophageal reflux disease without esophagitis K21.9 Active 141397059 Problem Slow transit constipation K59.01 Active 97354008 Problem Coronary artery disease involving [place] coronary artery of [place] heart without angina pectoris I25.10 Active 4263407712131 Problem Agoraphobia with panic attacks F40.01 Active 389314485 Problem COPD with exacerbation J44.1 Active 897703088 Problem Pericardial effusion I31.3 Active 458951147 Problem Pleural effusion on left J90 Active 87166604 Problem Generalized anxiety disorder F41.1 Active 07167783 Problem Chronic obstructive pulmonary disease, unspecified COPD type J44.9 Active 35026867 Problem Hypertension, benign I10 Active 11252841 Problem Oral phase dysphagia R13.11 Active 107113772 Problem Vitamin B 12 deficiency E53.8 Active 05403261 Problem Chronic fatigue R53.82 Active 54918837 ALLERGIES No Information ENCOUNTERS Encounter Location Date Diagnosis [facility], [place] [id number] [place] [address] 32786- 7695 Apr, Flank pain R10.9 and Chronic prescription benzodiazepine use Z79.899 [facility], [place] [id number] [place] [address] 69028- 8702 Mar, Flank pain R10.9 [facility], [place] [id number] [place] [address] 06874- 3007 Mar, [facility], [place] [id number] [place] [address] 04127- 2710 Feb, Coronary artery disease involving [place] coronary artery of [place] heart without angina pectoris I25.10 ; Vitamin B 12 deficiency E53.8 ; Slow transit constipation K59.01 ; Generalized anxiety disorder F41.1 and Breast cancer screening by mammogram Z12.31 [facility], [place] [address], [place] [address] 2775 Feb, Flank pain R10.9 [facility], [place] [id number] [place] [address] 99679- 5917 January, [facility], [place] [id number] [place] [address] 19978- 7037 January, Chronic obstructive pulmonary disease, unspecified COPD type J44.9 ; Pleural effusion on left J90 ; Pericardial effusion I31.3 and Generalized anxiety disorder F41.1 [facility], [place] [id number] [place] [address] 98903- 3755 January, Gastroenteritis K52.9 [facility], [place] [address] [address] 4706 January, Flank pain R10.9 [facility], [place] [id number] [place] [address] 30644- 0265 January, [address] [id number] [place] [address] Dec [facility], [place] [id number] [address] 3096 Dec, [facility], [place] [id number] [address] 4860 Dec, [facility], [place] [id number] [address] 4138 Dec, [facility], [place] [address] [address] 0923 Dec, [facility], [place] [id number] [address] 2742 Dec, Flank pain R10.9 [facility], [place] [address], [place] [address] 3730 Dec, [facility], [place] [id number] [place] [address] 28383- 5421 Nov, [facility], [place] [id number] [place] [address] 80170- 5142 Nov, [facility], [place] [id number] [place] [address] 47740- 6760 Nov, [facility], [place] [id number] [place] [address] 82675- 7355 14 Nov, 2017 Pericardial effusion I31.3 ; Agoraphobia with panic attacks F40.01 and Vitamin B 12 deficiency E53.8 [facility], [place] [id number] [place] [address] 64554- 9074 Nov, [facility], [place] [id number] [place] [address] 28974- 3193 Nov, Pneumonia of both lungs due to infectious organism, unspecified part of lung J18.9 and Flank pain R10.9 [facility], [place] [id number] [place] [address] 28502- 4796 Nov, Pneumonia of both lungs due to infectious organism, unspecified part of lung J18.9 and Gastroenteritis K52.9 [facility], [place] [id number] [place] [address] 10037- 8417 Oct, Pneumonia of both lungs due to infectious organism, unspecified part of lung J18.9 and Vitamin B 12 deficiency E53.8 [facility] [id number] [place] [address] [id number] Oct, [facility], [place] [id number] [place] [address] 71638- 0674 Oct, [facility], [place] [id number] [place] [address] 71281- 9450 Oct, [facility], [place] [id number] [place] [address] 88482- 4363 02 Oct, 2017 Flank pain R10.9 [facility], [place] [address] 21725- 0126 02 Oct, 2017 Other chronic pain G89.29 and Unspecified abdominal pain R10.9 [facility], [place] [address] 80740- 0110 Sep, Flank pain R10.9 [facility], [place] [id number] [place] [address] 13180- 9316 Sep, [facility], [place] [address] 84869- 5215 Sep, [facility], [place] [id number] [place] [address] 58977- 9915 Sep, Acute non-recurrent maxillary sinusitis J01.00 [facility], [place] [id number] [place] [address] 64748- 7734 Sep, Acute non-recurrent maxillary sinusitis J01.00 and Vitamin B 12 deficiency E53.8 [facility], [place] [id number] [place] [address] 16478- 9830 Sep, [facility], [place] [id number] [place] [address] 14197- 6380 Sep, [facility], [place] [id number] [place] [address] 14499- 5219 Sep, [facility], [place] [id number] [place] [address] 96241- 2089 Sep, COPD with exacerbation J44.1 [facility], [place] [address] 47096- 6124 Sep, Chronic obstructive pulmonary disease, unspecified COPD type J44.9 [facility], [place] [id number] [place] [address] 73908- 8212 Aug, Flank pain R10.9 [facility], [place] [id number] [place] [address] 77724- 3435 Jul, Flank pain R10.9 and Vitamin B 12 deficiency E53.8 [facility], [place] [id number] [place] [address] 50433- 7848 Jul, [facility], [place] [id number] [place] [address] 57842- 1004 Jun, Gastroenteritis K52.9 [facility], [place] [address] 30991- 3643 May, Gastroenteritis K52.9 and Vitamin B 12 deficiency E53.8 [place] [address] 11235- 3819 Apr, Allergic conjunctivitis of left eye H10.12 and Chronic fatigue R53.82 [facility] [id number] [place] [address] 08703- 5004 Apr, Chronic sinusitis, unspecified J32.9 [facility] [id number] [place] [address] 25948- 2298 Apr, [facility], [place] [id number] [place] [address] 89596- 6706 Feb, [facility] [id number] [place] [address] 57883- 7464 January, [facility], [place] [id number] [place] [address] 64215- 2278 Dec, [facility], [place] [id number] [place] [address] 45850- 9552 Oct, [facility], [place] [id number] [place] [address] 13118- 5520 Sep, Oral phase dysphagia R13.11 and Vitamin B 12 deficiency E53.8 [facility], [place] [id number] [place] [address] 89651- 6858 Sep, [facility], [place] [id number] [place] [address] 07559- 0838 Jul, [facility], [place] [id number] [place] [address] 32797- 7686 Jul, [facility], [place] [id number] [place] [address] 50329- 0667 Jun, Bronchitis J40 ; Generalized anxiety disorder F41.1 and Chronic obstructive pulmonary disease, unspecified COPD type J44.9 [facility], [place] [address] 72096- 2303 Jun, [facility], [place] [address] 39726- 9142 Jun, [facility], [place] [address] 77367- 9378 Jun, [facility] [id number] [place] [address] 28289- 2698 May, Vitamin B 12 deficiency E53.8 ; Essential (primary) hypertension I10 ; Generalized anxiety disorder F41.1 ; Pain in joint, ankle and foot 719.47 ; Arthritis M19.90 ; Chronic obstructive pulmonary disease, unspecified COPD type J44.9 and Encounter for immunization Z23 [facility], [place] [id number] [place] [address] 85436- 6919 Apr, [facility] [id number] [place] [address] 07961- 5028 Apr, [facility], [place] [id number] [place] [address] 29913- 9601 Mar, [facility], [place] [id number] [place] [address] 02833- 1207 January, [facility], [place] [id number] [place] [address] 19337- 6199 Dec, [facility], [place] [id number] [place] [address] 14866- 1803 Oct, [place] [address], [place] [address]- 3250 Oct, [place] [facility] [id number] [place] [address] 83719- 3919 Oct, Hypertension, benign I10 and Vitamin B 12 deficiency E53.8 [facility] [id number] [place] [address] 13452- 3218 Oct, [facility] [id number] [place] [address] 72674- 5319 Oct, [facility] [id number] [place] [address] 54053- 6923 Oct, Irritable bowel syndrome with diarrhea K58.0 [facility] [id number] [place] [address] 85162- 1004 Oct, [facility] [id number] [place] [address] 99898- 1541 Oct, Vitamin B 12 deficiency E53.8 ; Hypertension, benign I10 and Chronic obstructive pulmonary disease, unspecified COPD type J44.9 [facility] [id number] [place] [address] 02223- 9197 Sep, Irritable bowel syndrome with diarrhea K58.0 ; Hypertension , benign I10 ; Chronic obstructive pulmonary disease, unspecified COPD type J44.9 ; Edema, unspecified type R60.9 ; Vision changes H53.9 and Vitamin B 12 deficiency E53.8 [facility] [facility] [address] [address]- 7283 Sep, [facility] [id number] [place] [address] 42097- 8261 Jul, Degenerative disc disease 722.6 [place] [id number] [place] [address] 96462- 1406 Jun, Pain in right leg M79.604 ; Encounter for immunization Z23 and Pain of left leg M79.605 [facility] [id number] [place] [address] 15472- 7317 Jun, [facility], [place] [id number] [place] [address] 48392- 9639 Jun, [facility], [place] [id number] [place] [address] 55512- 9916 Jun, Degenerative disc disease 722.6 [facility], [place] [address] 30308- 8598 Jun, [facility], [place] [id number] [place] [address] 62426- 3451 28 May, 2015 Seizures 780.39 and Autonomic peripheral neuropathy 337.9 [facility], [place] [id number] [place] [address] 56355- 6247 18 May, 2015 [facility], [place] [id number] [place] [address] 83198- 1237 17 May, 2015 [facility], [place] [id number] [place] [address] 79883- 9770 May, Degenerative disc disease 722.6 [facility], [place] [id number] [place] [address] 17125- 3626 08 May, 2015 [facility], [place] [id number] [place] [address] 28241- 5040 Mar, [facility], [place] [id number] [place] [address] 92825- 0161 Mar, Degenerative disc disease 722.6 ; Spinal stenosis 724.00 and HTN (hypertension) 401.9 [facility], [place] [id number] [place] [address] 75129- 4304 Feb, Cutaneous horn 702.8 [facility], [place] [id number] [place] [address] 19957- 7147 15 Feb, 2015 Fatigue 780.79 [facility], [place] [id number] [place] [address] 49846- 2548 08 Feb, 2015 Fatigue 780.79 ; Arthritis 716.90 ; Spinal stenosis 724.00 ; Sinusitis 473.9 and Cutaneous horn 702.8 [facility], [place] [id number] [place] [address] 71583- 2916 January, [facility] [id number] [place] [address] 12324- 0502 Dec, [facility] [id number] [place] [address] 96376- 5449 Dec, [facility] [id number] [place] [address] 36547- 9298 Nov, [facility] [id number] [place] [address] 34489- 0728 Nov, [facility] [id number] [place] [address] 30519- 5320 Oct, [facility] [id number] [place] [address] 64728- 8148 Oct, [facility] [id number] [place] [address] 10830- 8762 Oct, [facility] [id number] [place] [address] 63620- 1058 Oct, [facility] [address] [address]- 7285 Oct, [facility] [id number] [place] [address] 88478- 5634 Oct, [facility] [id number] [place] [address] 37080- 4155 Sep, [facility] [id number] [place] [address] 218460- 8056 Sep, [facility] [address] [address]- 7990 Sep, [facility] [id number] [place] [address] 15217- 3232 Sep, [facility] [place] [facility] [address] [id number] [place] [address]- 3588 Sep, [facility] [place] [facility] [address] [id number] [place] [address]- 9579 Sep, [facility] [place] [facility] [address] [id number] [place] [address]- 6125 Sep, [facility] [place] [facility] [address] [id number] [place] [address]- 2478 Sep, [facility] [place] [facility] [address] [id number] [place] [address]- 5431 Sep, [facility] [place] [facility] [address] [id number] [place] [address]- 5368 Sep, [facility] [place] [facility] [address] [id number] [place] [address]- 4666 Sep, [facility] [place] [facility] [address] [id number] [place] [address]- 6212 Sep, [facility] [place] [facility] [address] [id number] [place] [address]- 5808 Sep, [facility] [place] [facility] [address] [id number] [place] [address]- 0453 Sep, [facility] [place] [facility] [address] [id number] [place] [address]- 3007 Aug, [facility] [place] [facility] [address] [id number] [place] [address]- 3031 Aug, [facility] [place] [facility] [address] [id number] [place] [address]- 0696 Aug, [facility] [place] [facility] [address] [id number] [place] [address]- 2563 Aug, [facility] [place] [facility] [address] [id number] [place] [address]- 2625 Jul, [facility] [place] [facility] [address] [id number] [place] [address]- 5031 Jul, [facility] [place] [facility] [address] [id number] [place] [address]- 6166 May, 2013 [facility] [place] [facility] [address] [id number] [place] [address]- 2746 May, 2013 [facility] [place] [facility] [address] [id number] [place] [address]- 7276 May, 2013 [facility] [place] [facility] [address] [id number] [place] [address]- 1483 May, [facility] [place] [facility] [address] [id number] [place] [address]- 3993 May, [facility] [place] [facility] [address] [id number] [place] [address]- 2719 May, [facility] [place] [facility] [address] [id number] [place] [address]- 2544 Apr, [facility] [place] [facility] [address] [id number] [place] [address]- 0886 Apr, [facility] [place] [facility] [address] [id number] [place] [address]- 0351 Mar, [facility] [place] [facility] [address] [id number] [place] [address]- 0638 Mar, [facility] [place] [facility] [address] [id number] [place] [address]- 6687 Mar, [facility] [place] [facility] [address] [id number] [place] [address]- 8392 Mar, [facility] [place] [facility] [address] [id number] [place] [address]- 9890 Mar, [facility] [place] [facility] [address] [id number] [place] [address]- 3406 Mar, [facility] [place] [facility] [address] [id number] [place] [address]- 2847 Mar, [facility] [place] [facility] [address] [id number] [place] [address]- 5647 Mar, [facility] [place] [facility] [address] [id number] [place] [address]- 7339 Feb, [facility] [place] [facility] [address] [id number] [place] [address]- 8781 Feb, [facility] [place] [facility] [address] [id number] [place] [address]- 5009 January, [facility] [place] [facility] [address] [id number] [place] [address]- 0333 January, [facility] [place] [facility] [address] [id number] [place] [address]- 6594 January, [facility] [place] [facility] [address] [id number] [place] [address]- 5780 January, [facility] [place] [facility] [address] [id number] [place] [address]- 4204 Dec, [facility] [place] [facility] [address] [id number] [place] [address]- 7987 Dec, [facility] [place] [facility] [address] [id number] [place] [address]- 0993 Oct, [facility] [place] [facility] [address] [id number] [place] [address]- 6382 Oct, [facility] [place] [facility] [address] [id number] [place] [address]- 3809 Oct, [facility] [place] [facility] [address] [id number] [place] 6590 Oct, [facility] [place] [facility] [address] [id number] [place] [address]- 9100 Sep, [facility] [place] [facility] [address] [id number] [place] [address]- 2545 Sep, [facility] [place] [facility] [address] [id number] [place] [address]- 8903 Aug, [facility] [address] [id number] [place] [address]- 2679 Aug, [facility] [address] [id number] [place] [address] Aug, [facility] [address] [id number] [place] [address] Aug, [facility] [address] [id number] [place] [address] Aug, [facility] [address] [id number] [place] [address] Aug, [facility] [address] [id number] [place] [address] Aug, [facility] [address] [id number] [place] [address] Aug, [facility] [address] [id number] [place] [address] Aug, [facility] [address] [facility] [id number] [place] [address] Aug, [facility] [address] [facility] [id number] [place] [address] Jul, [facility] [place] [facility] [address] [id number] [place] [address] Jul, [facility] [address] [id number] [place] [address] Jun, [facility] [place] [facility] [address] [id number] [place] [address] 29 Jun, 2013 [facility] [place] [facility] [address] [facility] [id number] [place] [address] Jun, [facility] [address] [id number] [place] [address]- [address] 16 Jun, 2013 [facility] [place] [facility] [address] [id number] [place] [address] Jun, [facility] [place] [facility] [address] [id number] [place] [address] May, [facility] [place] [facility] [address] [id number] [place] [address] May, [facility] [place] [facility] [address] [id number] [place] [address] 12 May, 2013 [facility] [place] [facility] [address] [id number] [place] [address] 06 May, 2013 [facility] [place] [facility] [address] [id number] [place] [address] May, [facility] [place] [facility] [address] [id number] [place] [address] Apr, [facility] [place] [facility] [address] [id number] [place] [address] Mar, [facility] [place] [facility] [address] [id number] [place] [address] Mar, [facility] [place] [facility] [address] [id number] [place] [address] Mar, [facility] [place] [facility] [address] [id number] [place] [address] Mar, [facility] [place] [facility] [address] [id number] [address] Mar, [facility] [place] [facility] [address] [id number] [place] [address] Mar, [facility] [place] [facility] [address] [id number] [place] [address] Mar, [facility] [place] [facility] [address] [id number], [place] [address] Mar, [facility] [place] [facility] [address] [id number], [place] [address] Mar, [facility] [address] [id number] [place] [address] Feb, [facility] [address] [id number] [place] [address] Feb, [facility] [address] [id number] [place] [address] Feb, [facility] [address] [id number] [place] [address] January, [facility] [address] [id number] [place] [address] January, [facility] [address] [id number] [place] [address] January, [facility] [address] [id number] [place] [address] January, [facility] [address] [id number] [place] [address] Dec, [facility] [address] [id number] [place] [address] Dec, [facility] [address] [id number] [place] [address] Dec, [facility] [address] [id number] [place] [address] Dec, [facility] [place] [facility] [address] [id number] [place] [address] Dec, [facility] [place] [facility] [address] [id number] [place] [address] Dec, [facility] [facility] [address] [id number] [place] [address] Nov, [facility] [place] [facility] [address] [id number] [place] [address] Oct, [facility] [place] [facility] [address] [id number] [place] [address] Aug, [facility] [place] [facility] [address] [id number] [place] [address] Aug, [facility] [place] [facility] [address] [id number] [place] [address] Aug, [facility] [place] [facility] [address] [id number] [place] [address] Aug, [facility] [place] [facility] [address] [id number] [place] [address] Aug, [facility] [place] [facility] [address] [id number] [place] [address] Aug, [facility] [place] [facility] [address] [id number] [place] [address] Aug, [facility] [place] [facility] [address] [id number] [place] [address] Aug, [facility] [place] [facility] [address] [id number] [place] [address] Aug, [facility] [place] [facility] [address] [id number] [place] [address] Aug, [facility] [place] [facility] [address] [id number] [place] [address] Aug, [facility] [place] [facility] [address] [id number] [place] [address] Jul, [facility] [place] [facility] [address] [id number] [place] [address] Jul, [facility] [place] [facility] [address] [id number] [place] [address] Jul, [facility] [place] [facility] [address] [id number] [place] [address] Jul, [facility] [place] [address] [id number] [place] [address] Jul, [facility] [place] [facility] [address] [id number] [place] [address] Jul, [facility] [place] [facility] [address] [id number] [place] [address] Jun, [facility] [place] [facility] [address] [id number] [place] [address] Jun, [facility] [place] [facility] [address] [id number] [place] [address] May, [facility] [place] [facility] [address] [id number] [place] [address] Apr, [facility] [place] [facility] [address] [id number] [place] [address] Apr, [facility] [place] [facility] [address] [id number] [place] [address] 8499 Apr, [facility] [place] [facility] [address] [id number] [place] [address] Apr, [facility] [place] [facility] [address] [id number] [place] [address] Apr, [facility] [place] [facility] [address] [id number] [place] [address] Mar, [facility] [place] [facility] [address] [id number], [place] [address] Mar, [facility] [facility] [address] [id number], [place] [address] January, [facility] [address] [id number] [place] [address] January, [facility] [place] [facility] [address] [id number] [place] [address] Nov, [facility] [place] [facility] [address] [id number] [place] [address] Oct, [facility] [facility] [address] [id number] [place] [address] Sep, [facility] [address] [id number] [place] [address] Sep, [facility] [address] [id number] [place] [address] Sep, [facility] [address] [id number] [place] [address] Sep, [facility] [address] [id number] [place] [address] Sep, [facility] [address] [id number] [place] [address] Sep, [facility] [address] [id number] [place] [address] Aug, [facility] [address] [id number] [place] [address] Aug, [facility] [address] [id number] [place] [address] Aug, [facility] [address] [id number] [place] [address] Aug, [facility] [address] [facility] [id number] [place] [address] Aug, [facility] [address] [id number] [place] [address] Jul, [facility] [address] [id number] [place] [address]- [address] Jul, [facility] [address] [id number] [place] [address] Jul, [facility] [address] [id number] [place] [address] Jun, [facility] [address] [id number] [place] [address] Jun, [facility] [place] [address] [id number] [address] Jun, [facility] [place] [id number], [place] [address] January, [facility] [place] [id number], [place] [address] Dec, [facility] [place] [id number] [place] [address] Oct, [facility] [place] [id number], [place] [address] Oct, [facility] [place] [id number] [place] [address]- [address] Jun, [facility] [place] [id number] [place] [address] Aug, [facility] [place] [id number], [place] [address] Aug, [facility] [place] [id number], [place] [address] Jul, [facility], [place] [id number], [place] [address] Mar, IMMUNIZATIONS No Known Immunizations SOCIAL HISTORY Never Assessed REASON FOR VISIT After Hours Clinical Advice PLAN OF CARE VITAL SIGNS MEDICATIONS No Known Medications RESULTS No Results PROCEDURES No Known procedures INSTRUCTIONS MEDICATIONS ADMINISTERED No Known Medications MEDICAL (GENERAL) HISTORY Type Description Date Medical History Hypertension Medical History Chronic Obstructive pulmonary disease diagnosed 2008 in [place]-PFT not done previously Medical History Gastrointestinal disorder [...]
--- OUTSIDE RECORDS SUMMARY | 2018-08-21 15:37 | XMS REPORT ---
Author Author KAITLIN TURNER Organization [facility] Address [address] [place] [address] Care Team Providers Care Licensed Sales Assistant Name Role Phone KAITLIN TURNER Unavailable PROBLEMS Type Condition ICD9-CM Code LHG06-WL Code Onset Dates Condition Status SNOMED Code Problem Chronic sinusitis, unspecified J32.9 Active 60602294 Problem Other chronic pain G89.29 Active 44312945 Problem Gastroesophageal reflux disease without esophagitis K21.9 Active 345225543 Problem Slow transit constipation K59.01 Active 74456462 Problem Coronary artery disease involving [place] coronary artery of [place] heart without angina pectoris I25.10 Active [id number] Problem Agoraphobia with panic attacks F40.01 Active 740402036 Problem COPD with exacerbation J44.1 Active 191337807 Problem Pericardial effusion I31.3 Active 031932721 Problem Pleural effusion on left J90 Active 27888536 Problem Generalized anxiety disorder F41.1 Active 33978929 Problem Chronic obstructive pulmonary disease, unspecified COPD type J44.9 Active 41100183 Problem Hypertension, benign I10 Active 55551965 Problem Oral phase dysphagia R13.11 Active 658847438 Problem Vitamin B 12 deficiency E53.8 Active 12248736 Problem Chronic fatigue R53.82 Active [id number] ALLERGIES No Information ENCOUNTERS Encounter Location Date Diagnosis [facility] [id number] [address] Mar, Flank pain R10.9 [facility] [id number] [address] Mar, [facility] [id number] [address] Feb, Coronary artery disease involving [place] coronary artery of [place] heart without angina pectoris I25.10 ; Vitamin B 12 deficiency E53.8 ; Slow transit constipation K59.01 ; Generalized anxiety disorder F41.1 and Breast cancer screening by mammogram Z12.31 [facility] [address] [address] Feb, Flank pain R10.9 [facility] [address] [address] January, [facility] [address] [address] January, Chronic obstructive pulmonary disease, unspecified COPD type J44.9 ; Pleural effusion on left J90 ; Pericardial effusion I31.3 and Generalized anxiety disorder F41.1 [facility] [address] [address] January, Gastroenteritis K52.9 [facility] [address] [address] January, Flank pain R10.9 [facility] [address] [address] January, [address] [id number] [place] [address] Dec [facility] [address] [address] Dec, [facility] [address] [id number] [address] Dec, [facility] [id number] [address] 0[address] Dec, [facility] [address] [facility] [id number] [address] Dec, [facility] [address] [address] Dec, Flank pain R10.9 [facility] [id number] [address] Dec, [facility] [id number] [place] [address] 62215- 0309 Nov, [facility] [id number] [place] [address] 35715- 9194 Nov, [facility] [id number] [place] [address] 02494- 3857 Nov, [facility] [id number] [place] [address] 82454- 9051 14 Nov, 2017 Pericardial effusion I31.3 ; Agoraphobia with panic attacks F40.01 and Vitamin B 12 deficiency E53.8 [facility] [id number] [place] [address] 43908- 2594 Nov, [facility] [id number] [place] [address] 12451- 5507 Nov, Pneumonia of both lungs due to infectious organism, unspecified part of lung J18.9 and Flank pain R10.9 [facility] [id number] [place] [address] 96534- 6402 Nov, Pneumonia of both lungs due to infectious organism, unspecified part of lung J18.9 and Gastroenteritis K52.9 [facility] [id number] [place] [address] 18836- 0232 Oct, Pneumonia of both lungs due to infectious organism, unspecified part of lung J18.9 and Vitamin B 12 deficiency E53.8 [facility] [id number] [place] [address] [id number] Oct, [facility] [id number] [place] [address] 42918- 1922 Oct, [facility] [id number] [place] [address] 08371- 1201 Oct, [facility] [address] [place] [address] 10164- 8447 Oct, Flank pain R10.9 [facility] [id number] [place] [address] 78956- 8806 Oct, Other chronic pain G89.29 and Unspecified abdominal pain R10.9 [facility] [address] [address]- 9500 Sep, Flank pain R10.9 [facility] [id number] [place] [address] 27140- 4499 Sep, [facility] [address] 78936- 5438 Sep, [facility] [id number] [place] [address] 92782- 1442 Sep, Acute non-recurrent maxillary sinusitis J01.00 [facility] [id number] [place] [address] 02634- 2870 Sep, Acute non-recurrent maxillary sinusitis J01.00 and Vitamin B 12 deficiency E53.8 [facility] [id number] [place] [address] 15717- 0004 Sep, [facility] [id number] [place] [address] 44234- 2573 Sep, [facility] [id number] [place] [address] 38702- 9694 Sep, [facility] [id number] [place] [address] 46312- 2247 Sep, COPD with exacerbation J44.1 [facility] [id number] [place] [address] 50357- 4723 Sep, Chronic obstructive pulmonary disease, unspecified COPD type J44.9 [facility] [id number] [place] [address] 88364- 0508 Aug, Flank pain R10.9 [facility] [id number] [place] [address] 21531- 4838 Jul, Flank pain R10.9 and Vitamin B 12 deficiency E53.8 [facility] [id number] [place] [address] 59795- 9664 Jul, [facility] [address] 39499- 4931 Jun, Gastroenteritis K52.9 [facility] [id number] [place] [address] 61616- 2596 May, Gastroenteritis K52.9 and Vitamin B 12 deficiency E53.8 [facility] [address] 65211- 6811 Apr, Allergic conjunctivitis of left eye H10.12 and Chronic fatigue R53.82 [address] [address] 43185- 3788 Apr, Chronic sinusitis, unspecified J32.9 [address] [address] 58146- 2973 Apr, [facility] [id number] [place] [address] 10754- 6423 Feb, [facility] [id number] [place] [address] 45172- 8699 January, [facility] [id number] [place] [address] 93925- 1534 Dec, [facility] [id number] [place] [address] 74706- 3184 Oct, [facility] [id number] [place] [address] 16713- 2425 Sep, Oral phase dysphagia R13.11 and Vitamin B 12 deficiency E53.8 [facility] [id number] [place] [address] 68765- 5931 Sep, [facility] [id number] [place] [address] 78288- 5736 Jul, [facility] [id number] [place] [address] 55100- 3080 Jul, [facility] [id number] [place] [address] 96350- 3393 Jun, Bronchitis J40 ; Generalized anxiety disorder F41.1 and Chronic obstructive pulmonary disease, unspecified COPD type J44.9 [facility] [id number] [place] [address] 10541- 1068 Jun, [facility] [address] 01932- 2722 Jun, [facility] [id number] [place] [address] 74424- 1902 Jun, [facility] [address] 95631- 6747 May, Vitamin B 12 deficiency E53.8 ; Essential (primary) hypertension I10 ; Generalized anxiety disorder F41.1 ; Pain in joint, ankle and foot 719.47 ; Arthritis M19.90 ; Chronic obstructive pulmonary disease, unspecified COPD type J44.9 and Encounter for immunization Z23 [facility] [id number] [place] [address] 68467- 9558 Apr, [facility] [id number] [place] [address] 11622- 6860 Apr, [facility] [id number] [place] [address] 78004- 5734 Mar, [facility] [id number] [place] [address] 70236- 7047 January, [facility] [id number] [place] [address] 31779- 1827 Dec, [facility] [address] 29642- 1785 Oct, [facility] [id number] [place] [address] 89518- 8833 Oct, [facility] [address] 91251- 1406 Oct, Hypertension, benign I10 and Vitamin B 12 deficiency E53.8 [address] [facility] [id number] [place] [address] 15026- 3690 Oct, [address] [place] [id number] [place] [address] 19874- 9486 Oct, [address] 04202- 8164 Oct, Irritable bowel syndrome with diarrhea K58.0 [address] [place] [id number] [place] [address] 84521- 3768 Oct, [address] [place] [id number] [place] [address] 03269- 0978 Oct, Vitamin B 12 deficiency E53.8 ; Hypertension, benign I10 and Chronic obstructive pulmonary disease, unspecified COPD type J44.9 [address] [place] [id number] [place] [address] 20213- 8849 Sep, Irritable bowel syndrome with diarrhea K58.0 ; Hypertension , benign I10 ; Chronic obstructive pulmonary disease, unspecified COPD type J44.9 ; Edema, unspecified type R60.9 ; Vision changes H53.9 and Vitamin B 12 deficiency E53.8 [address] [place] [id number] [place] [address] 04173- 5134 Sep, [address] [facility] [id number] [place] [address] 71489- 8605 Jul, Degenerative disc disease 722.6 [place] [facility] [id number] [place] [address] 72334- 0862 Jun, Pain in right leg M79.604 ; Encounter for immunization Z23 and Pain of left leg M79.605 [address] [place] [id number] [place] [address] 92342- 4492 Jun, [address] [address] 91296- 6855 Jun, [facility] [id number] [place] [address] 41046- 8599 Jun, Degenerative disc disease 722.6 [facility] [id number] [place] [address] 43653- 0458 Jun, [facility] [id number] [place] [address] 23213- 9137 28 May, 2015 Seizures 780.39 and Autonomic peripheral neuropathy 337.9 [facility] [id number] [place] [address] 50007- 3179 18 May, 2015 [facility] [address] 22753- 2180 17 May, 2015 [facility] [id number] [place] [address] 26905- 7372 08 May, 2015 Degenerative disc disease 722.6 [facility] [id number] [place] [address] 78436- 6747 08 May, 2015 [facility] [id number] [place] [address] 57323- 9433 Mar, [facility] [id number] [place] [address] 90052- 1185 Mar, Degenerative disc disease 722.6 ; Spinal stenosis 724.00 and HTN (hypertension) 401.9 [facility] [id number] [place] [address] 83833- 1793 Feb, Cutaneous horn 702.8 [facility] [id number] [place] [address] 26987- 1777 Feb, Fatigue 780.79 [facility] [id number] [place] [address] 58778- 2406 Feb, Fatigue 780.79 ; Arthritis 716.90 ; Spinal stenosis 724.00 ; Sinusitis 473.9 and Cutaneous horn 702.8 [facility] [id number] [place] [address] 49273- 2930 January, [facility] [place] [facility] [address] [id number] [place] [address]- 2162 Dec, [facility] [place] [facility] [address] [id number] [place] [address]- 1642 Dec, [facility] [place] [facility] [address] [facility] [id number] [place] [address]- 2249 Nov, [facility] [place] [facility] [address] [id number] [place] [address]- 2816 Nov, [facility] [place] [facility] [address] [id number] [place] [address]- 5788 Oct, [facility] [place] [facility] [address] [id number] [place] [address]- 7980 Oct, [facility] [place] [facility] [address] [facility] [id number] [place] [address]- 9997 Oct, [facility] [place] [facility] [address] [facility] [id number] [place] [address]- 4369 Oct, [facility] [place] [facility] [address] [id number] [place] [address]- 0133 Oct, [facility] [place] [facility] [address] [facility] [id number] [place] [address]- 4976 Oct, [facility] [place] [facility] [address] [facility] [id number] [place] [address]- 7216 Sep, [facility] [place] [facility] [address] [id number] [place] [address]- 5242 Sep, [facility] [place] [facility] [address] [id number] [place] [address]- 2880 Sep, [facility] [place] [facility] [address] [facility] [id number] [place] [address]- 6532 Sep, [facility] [place] [facility] [address] [facility] [id number] [address]- 5375 Sep, [facility] [place] [facility] [address] [id number] [place] [address]- 2499 Sep, [facility] [place] [facility] [address] [id number] [place] [address]- 8341 Sep, [facility] [place] [facility] [address] [id number] [place] [address]- 5715 Sep, [facility] [place] [facility] [address] [id number] [place] [address]- 4956 Sep, [facility] [place] [facility] [address] [id number] [place] [address]- 2783 Sep, [facility] [place] [facility] [address] [id number] [place] [address]- 0405 Sep, [facility] [place] [facility] [address] [id number] [place] [address]- 7259 Sep, [facility] [place] [facility] [address] [id number] [place] [address]- 0859 Sep, [facility] [place] [facility] [address] [id number] [place] [address]- 3412 Sep, [facility] [place] [facility] [address] [id number] [place] [address]- 9894 Aug, [facility] [place] [facility] [address] [id number] [place] [address]- 8832 Aug, [facility] [place] [facility] [address] [id number] [place] [address]- 9706 Aug, [facility] [place] [facility] [address] [id number] [place] [address]- 4083 Aug, [facility] [place] [facility] [address] [id number] [place] [address]- 9517 Jul, [facility] [place] [facility] [address] [id number] [place] [address]- 1377 Jul, [facility] [place] [facility] [address] [id number] [place] [address]- 1123 May, [facility] [place] [facility] [address] [id number] [place] [address]- 6616 May, [facility] [place] [facility] [address] [id number] [place] [address]- 5800 May, [facility] [place] [facility] [address] [id number] [place] [address]- 4909 May, [facility] [place] [facility] [address] [id number] [place] [address]- 3396 May, [facility] [place] [facility] [address] [id number] [place] [address]- 5697 May, [facility] [place] [facility] [address] [id number] [place] [address]- 9161 Apr, [facility] [place] [facility] [address] [id number] [place] [address]- 5910 Apr, [facility] [place] [facility] [address] [id number] [place] [address]- 4190 Mar, [facility] [place] [facility] [address] [id number] [place] [address]- 5917 Mar, [facility] [place] [facility] [address] [id number] [place] [address]- 4535 Mar, [facility] [place] [facility] [address] [id number] [place] [address]- 6758 Mar, [facility] [place] [facility] [address] [id number] [place] [address]- 5105 Mar, [facility] [place] [facility] [address] [id number] [place] [address]- 3162 Mar, [facility] [place] [facility] [address] [id number] [place] [address]- 9073 Mar, [facility] [place] [facility] [address] [id number] [place] [address]- 0328 Mar, [facility] [place] [facility] [address] [id number] [place] [address]- 7132 Feb, [facility] [address] [id number] [place] [address]- 4555 Feb, [facility] [place] [facility] [address] [id number] [place] [address]- 8568 January, [facility] [place] [facility] [address] [id number] [place] [address]- 0499 January, [facility] [place] [facility] [address] [id number] [place] [address]- 1667 January, [facility] [place] [facility] [address] [id number] [place] [address]- 4804 January, [facility] [place] [facility] [address] [id number] [place] [address]- 3178 Dec, [facility] [place] [facility] [address] [id number] [place] [address]- 2336 Dec, [facility] [place] [facility] [address] [id number] [place] [address]- 1231 Oct, [facility] [place] [facility] [address] [id number] [place] [address]- 3354 Oct, [facility] [place] [facility] [address] [id number] [place] [address]- 5595 Oct, [facility] [place] [facility] [address] [id number] [place] [address]- 7839 Oct, [facility] [place] [facility] [address] [id number] [place] [address]- 4497 Sep, [facility] [place] [facility] [address] [id number] [place] [address]- 9303 Sep, [facility] [place] [facility] [address] [id number] [place] [address]- 8271 Aug, [facility] [place] [facility] [address] [id number] [place] [address]- 0073 Aug, [facility] [address] [id number] [place] [address]- 6904 Aug, [facility] [place] [facility] [address] [id number] [place] [address]- 7645 Aug, [facility] [place] [facility] [address] [id number] [place] [address]- 8220 Aug, [facility] [place] [facility] [address] [id number] [place] [address]- 2994 Aug, [facility] [address] [id number] [place] [address]- 8900 Aug, [facility] [place] [facility] [address] [id number] [place] [address]- 4802 Aug, [facility] [place] [facility] [address] [id number] [place] [address]- 0323 Aug, [facility] [place] [facility] [address] [id number] [place] [address]- 0944 Aug, [facility] [place] [facility] [address] [id number] [place] [address]- 6518 Jul, [facility] [place] [facility] [address] [id number], [place] [address]- 4658 Jul, [facility] [place] [facility] [address] [id number], [place] [address] Jun, [facility] [place] [facility] [address] [id number], [place] [address] Jun, [facility] [place] [facility] [address] [id number], [place] [address] Jun, [facility] [place] [facility] [address] [id number], [place] [address] Jun, [facility] [place] [facility] [address] [facility] [id number], [place] [address] Jun, [facility] [place] [facility] [address] [id number] [place] [address] 13 May, 2012 [facility] [address] [id number] [place] [address] 13 May, 2012 [facility] [place] [facility] [address] [id number] [place] [address] 12 May, 2012 [facility] [address] [id number] [place] [address] 06 May, 2012 [facility] [place] [facility] [address] [id number] [place] [address] 03 May, 2012 [facility] [place] [facility] [address] [id number] [place] [address] Apr, [facility] [place] [facility] [address] [id number] [place] [address] Mar, [facility] [address] [id number] [place] [address] 15 Mar, 2013 [facility] [place] [facility] [address] [id number] [place] [address] Mar, [facility] [place] [facility] [address] [id number] [place] [address] Mar, [facility] [place] [facility] [address] [id number] [place] [address] Mar, [facility] [place] [facility] [address] [id number] [place] [address] Mar, [facility] [place] [facility] [address] [id number] [place] [address] Mar, [facility] [place] [facility] [address] [id number] [place] [address] Mar, [facility] [place] [facility] [address] [id number] [place] [address] Mar, [facility] [place] [facility] [address] [id number] [place] [address] Feb, [facility] [place] [facility] [address] [id number] [place] [address] Feb, [facility] [address] [id number] [place] [address] Feb[facility] [address] [id number] [place] [address] January, [facility] [address] [id number] [place] [address] January, [facility] [address] [id number] [place] [address] January, [facility] [address] [id number] [place] [address] January, [facility] [address] [id number] [place] [address] Dec, [facility] [address] [id number] [place] [address] Dec, [facility] [address] [id number] [place] [address] Dec, [facility] [address] [id number] [place] [address] Dec, [facility] [address] [id number] [place] [address] Dec, [facility] [address] [id number] [place] [address] Dec, [facility] [address] [id number] [place] [address] Nov, [facility] [address] [id number] [place] [address] Oct, [facility] [address] [id number] [place] [address] Aug, [facility] [address] [id number] [place] [address] Aug, [facility] [place] [facility] [address] [id number] [place] [address] Aug, [facility] [place] [facility] [address] [id number] [place] [address] Aug, [facility] [place] [facility] [address] [id number] [place] [address] Aug, [facility] [facility] [address] [id number] [place] [address] Aug, [facility] [place] [facility] [address] [id number] [place] [address] Aug, [facility] [place] [facility] [address] [id number] [place] [address] Aug, [facility] [place] [facility] [address] [id number] [place] [address] Aug, [facility] [place] [facility] [address] [id number] [place] [address] Aug, [facility] [place] [facility] [address] [id number] [place] [address] Aug, [facility] [place] [facility] [address] [id number] [place] [address] Jul, [facility] [place] [facility] [address] [id number] [place] [address] Jul, [facility] [place] [facility] [address] [id number] [place] [address] Jul, [facility] [place] [facility] [address] [id number] [place] [address] Jul, [facility] [place] [facility] [address] [id number] [place] [address] Jul, [facility] [place] [facility] [address] [id number] [place] [address] Jul, [facility] [place] [facility] [address] [id number] [place] [address] Jun, [facility] [address] [id number] [place] [address] Jun, [facility] [place] [facility] [address] [id number] [place] [address] May, [facility] [address] [id number] [place] [address] Apr, [facility] [facility] [address] [id number] [place] [address] Apr, [facility] [address] [id number] [place] [address] Apr, [facility] [address] [id number] [place] [address] Apr, [facility] [address] [id number] [place] [address] Apr, [facility] [address] [id number] [place] [address] Mar, [facility] [address] [id number] [place] [address] Mar, [facility] [address] [id number] [place] [address] January, [facility] [address] [id number] [place] [address] January, [facility] [address] [id number] [place] [address] Nov, [facility] [place] [facility] [address] [id number] [place] [address] Oct, [facility] [facility] [address] [id number] [place] [address] Sep, [facility] [address] [id number] [place] [address] Sep, [facility] [place] [facility] [address] [id number] [place] [address] Sep, [facility] [place] [facility] [address] [id number] [place] [address] Sep, [facility] [place] [facility] [address] [id number] [place] [address] Sep, [facility] [place] [facility] [address] [id number] [place] [address] Sep, [facility] [place] [facility] [address] [id number] [place] [address] Aug, [facility] [place] [facility] [address] [id number] [place] [address] Aug, [facility] [place] [facility] [address] [id number] [place] [address] Aug, [facility] [place] [facility] [address] [id number] [place] [address] Aug, [facility] [place] [facility] [address] [id number] [place] [address] Aug, [facility] [place] [facility] [address] [id number], [place] [address] Jul, [facility] [place] [facility] [address] [id number] [place] [address] Jul, [facility] [place] [facility] [address] [id number], [place] [address] Jul, [facility] [place] [facility] [address] [id number] [place] [address] Jun, [facility] [place] [facility] [address] [id number] [place] [address] Jun, [facility] [place] [facility] [address] [id number] [place] [address] Jun, [facility] [place] [id number] [address] January, [facility] [id number] [address] Dec, [facility] [id number] [address] Oct, [facility] [id number] [address] Oct, [facility] [id number] [address] Jun, [facility] [id number] [place] [address] Aug, [facility] [id number] [address] Aug, [facility] [address] [id number] Jul, [facility] [id number] [address] Mar, IMMUNIZATIONS No Known Immunizations SOCIAL HISTORY Never Assessed REASON FOR VISIT Enalapril PA PLAN OF CARE VITAL SIGNS MEDICATIONS Medication Instructions Dosage Frequency Start Date End Date Duration Status ProAir HFA 108 (90 Base) MCG/ACT 2 puffs as needed 6h Active Advair Diskus 500-50 MCG/DOSE Inhalation Twice a day 1 puffs by Inhalation route 2 times per day 12h 30 Active Atenolol 100 MG Orally 2 times a day TAKE ONE-HALF TABLET BY MOUTH TWICE DAILY 12h 90 days Active Aspirin 325 MG Orally Once a day 1 tablet 24h Active Omeprazole 20 MG TAKE ONE CAPSULE BY MOUTH ONCE DAILY 30 Active Gas-X 80 MG Orally 2 times a day 1 tablet as needed 12h Not-Taking Cyanocobalamin 1000 MCG/ML Injection once monthly 1ML Active [place] 5-325 MG Orally every 6 hrs 1 tablet as needed 6h Nov, 28 days Not-Taking Norvasc 5 MG Orally Once a day 1 tablet 24h Active Albuterol Sulfate (2.5 MG/3ML) 0.083% Inhalation every 4 hrs 3 ml 4h 29 Oct Not-Taking Xanax 0.5 MG Orally 3 times a day as needed 1 tablet Nov, 28 days Active Clonidine HCl 0.1 MG Orally Twice a day 1 tablet at bedtime 12h Active Enalapril Maleate 20 mg Orally Once a day 1 tablet 24h Nov, 90 days Active Guaifenesin 400 mg Orally every 4 hrs 1 tablet as needed 4h 9 Not- Taking Cholecalciferol 5000 UNIT Orally Once a day, voucher 1st script 1 capsule Oct, Dec, 30 day(s) Active Cetirizine HCl 10 mg 1 tablet 24h 30 Active Dicyclomine HCl 20 mg Orally Four times a day PRN 1 tablet 30 Active Ranitidine HCl 150 MG Orally Twice a day 1 tablet as needed 12h 90 days Active Colace 100 mg Orally 2 times a day 1 capsule as needed 12h Active Ibuprofen 600 MG Orally every 6 hrs 1 tablet with food or milk as needed 6h Not-Taking Fluticasone Propionate 50 MCG/ACT Nasally 2 times a day 1 spray in each nostril 12h 30 days Active Acidophilus 100 mg Orally Once a day 1 capsule 24h May, Active Enalapril Maleate 10 mg Orally twice a day 1 tablet 12h Nov, 30 day(s) Active Amiodarone HCl 200 MG Orally Once a day 1 tablet 24h Not-Taking [place]-3 Fatty Acids 1000 MG Orally Once a day 2 capsules 24h Active RESULTS No Results PROCEDURES No Known procedures INSTRUCTIONS MEDICATIONS ADMINISTERED No Known Medications MEDICAL (GENERAL) HISTORY Type Description Date Medical History Hypertension Medical History Chronic Obstructive pulmonary disease diagnosed 2008 in [place]-PFT not done previously Medical History Gastrointestinal disorder [...]
--- OUTSIDE RECORDS SUMMARY | 2018-08-21 15:38 | XMS REPORT ---
Author Author KAITLIN TURNER Organization [facility] Address [address] 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 Active [id number] Problem Agoraphobia with panic attacks F40.01 Active 456724141 Problem COPD with exacerbation J44.1 Active 101076351 Problem Pericardial effusion I31.3 Active 442281211 Problem Pleural effusion on left J90 Active 38684146 Problem Generalized anxiety disorder F41.1 Active 06268481 Problem Chronic obstructive pulmonary disease, unspecified COPD type J44.9 Active 23945211 Problem Hypertension, benign I10 Active 69821205 Problem Oral phase dysphagia R13.11 Active 661816832 Problem Vitamin B 12 deficiency E53.8 Active 87243867 Problem Chronic fatigue R53.82 Active 46145002 ALLERGIES No Information ENCOUNTERS Encounter Location Date Diagnosis [facility] [id number] [address] Mar, Flank pain R10.9 [facility] [address] [id number] [address] 250[address] Mar, [facility] [address] [id number] [address] Feb, Coronary artery disease involving wales coronary artery of wales heart without angina pectoris I25.10 ; Vitamin B 12 deficiency E53.8 ; Slow transit constipation K59.01 ; Generalized anxiety disorder F41.1 and Breast cancer screening by mammogram Z12.31 [facility] [address] [address] Feb, Flank pain R10.9 [facility] [address] [address] 6[address] January, [facility] [address] [address] January, Chronic obstructive pulmonary disease, unspecified COPD type J44.9 ; Pleural effusion on left J90 ; Pericardial effusion I31.3 and Generalized anxiety disorder F41.1 [facility] [address] [address] January, Gastroenteritis K52.9 [facility] [address] [address] 75[address] January, Flank pain R10.9 [facility] [address] [address] January, [address] [id number] [place] [address] Dec [facility] [address] [address] 1760 Dec, [facility] [id number] [address] 8012 Dec, [facility] [id number] [address] 7063 Dec, [facility] [address] [facility] [id number] [address] Dec, [facility] [address] [address] Dec, Flank pain R10.9 [facility] [id number] [address] 4888 Dec, [facility] [id number] [place] [address] 90801- 3969 Nov, [facility] [id number] [place] [address] 01961- 7779 Nov, [facility] [id number] [place] [address] 77197- 4230 Nov, [facility] [id number] [place] [address] 15022- 6287 14 Nov, 2017 Pericardial effusion I31.3 ; Agoraphobia with panic attacks F40.01 and Vitamin B 12 deficiency E53.8 [facility] [id number] [place] [address] 45223- 4741 Nov, [facility] [id number] [place] [address] 21620- 7837 Nov, Pneumonia of both lungs due to infectious organism, unspecified part of lung J18.9 and Flank pain R10.9 [facility] [id number] [place] [address] 05678- 0570 Nov, Pneumonia of both lungs due to infectious organism, unspecified part of lung J18.9 and Gastroenteritis K52.9 [facility] [id number] [place] [address] 62641- 4803 Oct, Pneumonia of both lungs due to infectious organism, unspecified part of lung J18.9 and Vitamin B 12 deficiency E53.8 [facility] [id number] [place] [address] [id number] Oct, [facility] [id number] [place] [address] 02469- 0331 Oct, [facility] [id number] [place] [address] 65650- 6464 Oct, [facility] [id number] [place] [address] 16845- 2345 Oct, Flank pain R10.9 [facility] [id number] [place] [address] 31757- 9405 Oct, Other chronic pain G89.29 and Unspecified abdominal pain R10.9 [facility] [address] [address]- 8844 Sep, Flank pain R10.9 [facility] [id number] [place] [address] 79223- 5010 Sep, [facility] [address] 30289- 3139 Sep, [facility] [id number] [place] [address] 75406- 6619 Sep, Acute non-recurrent maxillary sinusitis J01.00 [facility] [id number] [place] [address] 98261- 7225 Sep, Acute non-recurrent maxillary sinusitis J01.00 and Vitamin B 12 deficiency E53.8 [facility] [id number] [place] [address] 32337- 9226 Sep, [facility] [id number] [place] [address] 36166- 2965 Sep, [facility] [id number] [place] [address] 43099- 2198 Sep, [facility] [id number] [place] [address] 09935- 9151 Sep, COPD with exacerbation J44.1 [facility] [id number] [place] [address] 32010- 0733 Sep, Chronic obstructive pulmonary disease, unspecified COPD type J44.9 [facility] [id number] [place] [address] 61319- 9002 Aug, Flank pain R10.9 [facility] [id number] [place] [address] 88797- 4835 Jul, Flank pain R10.9 and Vitamin B 12 deficiency E53.8 [facility] [id number] [place] [address] 97361- 4188 Jul, [facility] [address] 40090- 3379 Jun, Gastroenteritis K52.9 [facility] [id number] [place] [address] 54766- 9837 May, Gastroenteritis K52.9 and Vitamin B 12 deficiency E53.8 [facility] [address] 33286- 7380 Apr, Allergic conjunctivitis of left eye H10.12 and Chronic fatigue R53.82 [place] [address] [address]75- 5623 Apr, Chronic sinusitis, unspecified J32.9 [place] [address] 46203- 7527 Apr, [facility] [id number] [place] [address] 27639- 7305 Feb, [facility] [id number] [place] [address] 49350- 7864 January, [facility] [id number] [place] [address] 61610- 6306 Dec, [facility] [id number] [place] [address] 73722- 1723 Oct, [facility] [id number] [place] [address] 92881- 0069 Sep, Oral phase dysphagia R13.11 and Vitamin B 12 deficiency E53.8 [facility] [id number] [place] [address] 56743- 4511 Sep, [facility] [id number] [place] [address] 27172- 7698 Jul, [facility] [id number] [place] [address] 57498- 8290 Jul, [facility] [id number] [place] [address] 73016- 0386 Jun, Bronchitis J40 ; Generalized anxiety disorder F41.1 and Chronic obstructive pulmonary disease, unspecified COPD type J44.9 [facility] [id number] [place] [address] 82856- 7257 Jun, [facility] [address] 47658- 1116 Jun, [facility] [id number] [place] [address] 32932- 3570 Jun, [facility] [address] 84786- 0540 May, Vitamin B 12 deficiency E53.8 ; Essential (primary) hypertension I10 ; Generalized anxiety disorder F41.1 ; Pain in joint, ankle and foot 719.47 ; Arthritis M19.90 ; Chronic obstructive pulmonary disease, unspecified COPD type J44.9 and Encounter for immunization Z23 [facility] [id number] [place] [address] 87105- 3796 Apr, [facility] [id number] [place] [address] 13629- 9207 Apr, [facility] [id number] [place] [address] 02618- 1414 Mar, [facility] [id number] [place] [address] 02478- 9076 January, [facility] [id number] [place] [address] 40017- 2624 Dec, [facility] [address] 13147- 6014 Oct, [facility] [id number] [place] [address] 25383- 9299 Oct, [facility] [address] 55062- 4307 Oct, Hypertension, benign I10 and Vitamin B 12 deficiency E53.8 [place] [id number] [place] [address] 68421- 6919 Oct, [place] [id number] [place] [address] 12785- 2903 Oct, [place] [address] 09915- 6950 Oct, Irritable bowel syndrome with diarrhea K58.0 [place] [id number] [place] [address] 05530- 5341 Oct, [place] [id number] [place] [address] 41185- 6192 Oct, Vitamin B 12 deficiency E53.8 ; Hypertension, benign I10 and Chronic obstructive pulmonary disease, unspecified COPD type J44.9 [place] [id number] [place] [address] 81536- 0972 Sep, Irritable bowel syndrome with diarrhea K58.0 ; Hypertension , benign I10 ; Chronic obstructive pulmonary disease, unspecified COPD type J44.9 ; Edema, unspecified type R60.9 ; Vision changes H53.9 and Vitamin B 12 deficiency E53.8 [place] [id number] [place] [address] 82377- 2056 Sep, [place] [id number] [place] [address] 85847- 6912 Jul, Degenerative disc disease 722.6 [place] [id number] [place] [address] 54891- 3706 Jun, Pain in right leg M79.604 ; Encounter for immunization Z23 and Pain of left leg M79.605 [place] [id number] [place] [address] 78498- 2017 Jun, [place] [address] 77811- 5040 Jun, [facility] [id number] [place] [address] 54199- 4858 Jun, Degenerative disc disease 722.6 [facility] [id number] [place] [address] 30371- 8283 Jun, [facility] [id number] [place] [address] 09761- 8351 28 May, 2015 Seizures 780.39 and Autonomic peripheral neuropathy 337.9 [facility] [id number] [place] [address] 81488- 8136 18 May, 2015 [facility] [address] 34102- 7827 17 May, 2015 [facility] [id number] [place] [address] 14086- 6568 08 May, 2015 Degenerative disc disease 722.6 [facility] [id number] [place] [address] 68086- 1775 08 May, 2015 [facility] [id number] [place] [address] 30333- 7396 Mar, [facility] [id number] [place] [address] 65908- 6824 Mar, Degenerative disc disease 722.6 ; Spinal stenosis 724.00 and HTN (hypertension) 401.9 [facility] [id number] [place] [address] 28768- 7129 Feb, Cutaneous horn 702.8 [facility] [id number] [place] [address] 58415- 5204 Feb, Fatigue 780.79 [facility] [id number] [place] [address] 22421- 3275 Feb, Fatigue 780.79 ; Arthritis 716.90 ; Spinal stenosis 724.00 ; Sinusitis 473.9 and Cutaneous horn 702.8 [facility] [id number] [place] [address] 12512- 4597 January, [facility] [place] [facility] [address] [id number] [place] [address]- 3439 Dec, [facility] [place] [facility] [address] [id number] [place] [address]- 2704 Dec, [facility] [place] [facility] [address] [facility] [id number] [place] [address]- 6700 Nov, [facility] [place] [facility] [address] [id number] [place] [address]- 1486 Nov, [facility] [place] [facility] [address] [id number] [place] [address]- 2985 Oct, [facility] [place] [facility] [address] [id number] [place] [address]- 7733 Oct, [facility] [place] [facility] [address] [facility] [id number] [place] [address]- 1005 Oct, [facility] [place] [facility] [address] [facility] [id number] [place] [address]- 8217 Oct, [facility] [place] [facility] [address] [id number] [place] [address]- 8773 Oct, [facility] [place] [facility] [address] [facility] [id number] [place] [address]- 2887 Oct, [facility] [place] [facility] [address] [facility] [id number] [place] [address]- 2808 Sep, [facility] [place] [facility] [address] [id number] [place] [address]- 9585 Sep, [facility] [place] [facility] [address] [id number] [place] [address]- 8143 Sep, [facility] [place] [facility] [address] [facility] [id number] [place] [address]- 3403 Sep, [facility] [place] [facility] [address] [facility] [id number] [address]- 3683 Sep, [facility] [place] [facility] [address] [id number] [place] [address]- 9619 Sep, [facility] [place] [facility] [address] [id number] [place] [address]- 3589 Sep, [facility] [place] [facility] [address] [id number] [place] [address]- 8639 Sep, [facility] [place] [facility] [address] [id number] [place] [address]- 1112 Sep, [facility] [place] [facility] [address] [id number] [place] [address]- 0121 Sep, [facility] [place] [facility] [address] [id number] [place] [address]- 5758 Sep, [facility] [place] [facility] [address] [id number] [place] [address]- 3151 Sep, [facility] [place] [facility] [address] [id number] [place] [address]- 2542 Sep, [facility] [place] [facility] [address] [id number] [place] [address]- 1998 Sep, [facility] [place] [facility] [address] [id number] [place] [address]- 8119 Aug, [facility] [place] [facility] [address] [id number] [place] [address]- 9505 Aug, [facility] [place] [facility] [address] [id number] [place] [address]- 1221 Aug, [facility] [place] [facility] [address] [id number] [place] [address]- 4592 Aug, [facility] [place] [facility] [address] [id number] [place] [address]- 3514 Jul, [facility] [place] [facility] [address] [id number] [place] [address]- 1062 Jul, [facility] [place] [facility] [address] [id number] [place] [address]- 7834 May, [facility] [place] [facility] [address] [id number] [place] [address]- 5538 May, [facility] [place] [facility] [address] [id number] [place] [address]- 6637 May, [facility] [place] [facility] [address] [id number] [place] [address]- 5956 May, [facility] [place] [facility] [address] [id number] [place] [address]- 3437 May, [facility] [place] [facility] [address] [id number] [place] [address]- 3073 May, [facility] [place] [facility] [address] [id number] [place] [address]- 5748 Apr, [facility] [place] [facility] [address] [id number] [place] [address]- 5313 Apr, [facility] [place] [facility] [address] [id number] [place] [address]- 8393 Mar, [facility] [place] [facility] [address] [id number] [place] [address]- 4702 Mar, [facility] [place] [facility] [address] [id number] [place] [address]- 5448 Mar, [facility] [place] [facility] [address] [id number] [place] [address]- 9741 Mar, [facility] [place] [facility] [address] [id number] [place] [address]- 4588 Mar, [facility] [place] [facility] [address] [id number] [place] [address]- 6604 Mar, [facility] [place] [facility] [address] [id number] [place] [address]- 9294 Mar, [facility] [place] [facility] [address] [id number] [place] [address]- 7820 Mar, [facility] [place] [facility] [address] [id number] [place] [address]- 2187 Feb, [facility] [address] [id number] [place] [address]- 1283 Feb, [facility] [place] [facility] [address] [id number] [place] [address]- 8338 January, [facility] [place] [facility] [address] [id number] [place] [address]- 8819 January, [facility] [place] [facility] [address] [id number] [place] [address]- 5067 January, [facility] [place] [facility] [address] [id number] [place] [address]- 0462 January, [facility] [place] [facility] [address] [id number] [place] [address]- 7183 Dec, [facility] [place] [facility] [address] [id number] [place] [address]- 9764 Dec, [facility] [place] [facility] [address] [id number] [place] [address]- 2690 Oct, [facility] [place] [facility] [address] [id number] [place] [address]- 5519 Oct, [facility] [place] [facility] [address] [id number] [place] [address]- 6647 Oct, [facility] [place] [facility] [address] [id number] [place] [address]- 7540 Oct, [facility] [place] [facility] [address] [id number] [place] [address]- 4926 Sep, [facility] [place] [facility] [address] [id number] [place] [address]- 0136 Sep, [facility] [place] [facility] [address] [id number] [place] [address]- 1980 Aug, [facility] [place] [facility] [address] [id number] [place] [address]- 9113 Aug, [facility] [address] [id number] [place] [address]- 0133 Aug, [facility] [place] [facility] [address] [id number] [place] [address]- 3370 Aug, [facility] [place] [facility] [address] [id number] [place] [address]- 8143 Aug, [facility] [place] [facility] [address] [id number] [place] [address]- 8805 Aug, [facility] [address] [id number] [place] [address]- 5600 Aug, [facility] [place] [facility] [address] [id number] [place] [address]- 1504 Aug, [facility] [place] [facility] [address] [id number] [place] [address]- 6146 Aug, [facility] [place] [facility] [address] [id number] [place] [address]- 8981 Aug, [facility] [place] [facility] [address] [id number] [place] [address] Jul, [facility] [place] [facility] [address] [id number], [place] [address] Jul, [facility] [place] [facility] [address] [id number], [place] [address] Jun, [facility] [place] [facility] [address] [id number], [place] [address] Jun, [facility] [place] [facility] [address] [id number], [place] [address] Jun, [facility] [place] [facility] [address] [id number], [place] [address] Jun, [facility] [place] [facility] [address] [facility] [id number], [place] [address] Jun, [facility] [place] [facility] [address] [id number] [place] [address] 13 May, 2012 [facility] [address] [id number] [place] [address] 13 May, 2012 [facility] [place] [facility] [address] [id number] [place] [address] 12 May, 2012 [facility] [address] [id number] [place] [address] 2542 06 May, 2012 [facility] [place] [facility] [address] [id number] [place] [address]48 03 May, 2012 [facility] [place] [facility] [address] [id number] [place] [address] Apr, [facility] [place] [facility] [address] [id number] [place] [address] Mar, [facility] [address] [id number] [place] [address] 15 Mar, 2013 [facility] [place] [facility] [address] [id number] [place] [address] Mar, [facility] [place] [facility] [address] [id number] [place] [address]- [address] Mar, [facility] [place] [facility] [address] [id number] [place] [address] Mar, [facility] [place] [facility] [address] [id number] [place] [address] 9434 Mar, [facility] [place] [facility] [address] [id number] [place] [address] Mar, [facility] [place] [facility] [address] [id number] [place] [address]- [address] Mar, [facility] [place] [facility] [address] [id number] [place] [address] Mar, [facility] [place] [facility] [address] [id number] [place] [address] Feb, [facility] [place] [facility] [address] [id number] [place] [address] Feb, [facility] [address] [id number] [place] [address] Feb, [facility] [address] [id number] [place] [address] January, [facility] [address] [id number] [place] [address] 8920 January, [facility] [address] [id number] [place] [address] January, [facility] [address] [id number] [place] [address]646 January, [facility] [address] [id number] [place] [address] Dec, [facility] [address] [id number] [place] [address] [address] Dec, [facility] [address] [id number] [place] [address] [address] Dec, [facility] [address] [id number] [place] [address] Dec, [facility] [address] [id number] [place] [address] Dec, [facility] [address] [id number] [place] [address] [address] Dec, [facility] [address] [id number] [place] [address] Nov, [facility] [address] [address] [id number] [place] [address] Oct, [facility] [address] [id number] [place] [address] Aug, [facility] [address] [id number] [place] [address] Aug, [facility] [place] [facility] [address] [id number] [place] [address] Aug, [facility] [place] [facility] [address] [id number] [place] [address] Aug, [facility] [place] [facility] [address] [id number] [place] [address] Aug, [facility] [place] [facility] [address] [id number] [place] [address] Aug, [facility] [place] [facility] [address] [id number] [place] [address] Aug, [facility] [place] [facility] [address] [id number] [place] [address] Aug, [facility] [place] [facility] [address] [id number] [place] [address] Aug, [facility] [place] [facility] [address] [id number] [place] [address] Aug, [facility] [place] [facility] [address] [id number] [place] [address] Aug, [facility] [place] [facility] [address] [id number] [place] [address] Jul, [facility] [place] [facility] [address] [id number] [place] [address] Jul, [facility] [place] [facility] [address] [id number] [place] [address] Jul, [facility] [place] [facility] [address] [id number] [place] [address] Jul, [facility] [place] [facility] [address] [id number] [place] [address] Jul, [facility] [place] [facility] [address] [id number] [place] [address] Jul, [facility] [place] [facility] [address] [id number] [place] [address] Jun, [facility] [address] [id number] [place] [address] Jun, [facility] [place] [facility] [address] [id number] [place] [address] May, [facility] [address] [id number] [place] [address] Apr, [facility] [place] [facility] [address] [id number] [place] [address] Apr, [facility] [address] [id number] [place] [address] Apr, [facility] [address] [id number] [place] [address] Apr, [facility] [address] [id number] [place] [address] Apr, [facility] [address] [id number] [place] [address] Mar, [facility] [place] [facility] [address] [id number] [place] [address] [address] Mar, [facility] [address] [id number] [place] [address] January, [facility] [address] [id number] [place] [address] [address] January, [facility] [address] [id number] [place] [address] Nov, [facility] [place] [facility] [address] [id number] [place] [address] Oct, [facility] [place] [facility] [address] [id number] [place] [address] Sep, [facility] [place] [facility] [address] [id number] [place] [address] Sep, [facility] [place] [facility] [address] [id number] [place] [address] Sep, [facility] [place] [facility] [address] [id number] [place] [address] Sep, [facility] [place] [facility] [address] [id number] [place] [address] Sep, [facility] [place] [facility] [address] [id number] [place] [address] Sep, [facility] [place] [facility] [address] [id number] [place] [address] Aug, [facility] [place] [facility] [address] [id number] [place] [address]- [address] Aug, [facility] [place] [facility] [address] [id number] [place] [address]- [address] Aug, [facility] [place] [facility] [address] [id number] [place] [address] Aug, [facility] [place] [facility] [address] [id number] [place] [address]- [address] Aug, [facility] [place] [facility] [address] [id number], [place] [address] Jul, [facility] [place] [facility] [address] [id number] [place] [address] Jul, [facility] [place] [facility] [address] [id number], [place] [address] Jul, [facility] [place] [facility] [address] [id number] [place] [address] Jun, [facility] [place] [facility] [address] [id number] [place] [address]- [address] Jun, [facility] [place] [facility] [address] [id number] [place] [address]- [address] Jun, [facility] [place] [facility] [address] [id number] [address] January, [facility] [id number] [place] [address] Dec, [facility] [id number], [place] [address] Oct, [facility] [id number], [place] [address] Oct, [facility] [id number] [place] [address] Jun, [facility] [id number] [place] [address] Aug, [facility] [id number] [place] [address] Aug, [facility] [id number] [place] [address]- [address] Jul, [facility] [id number], [place] [address] Mar, IMMUNIZATIONS No Known Immunizations SOCIAL HISTORY Never Assessed REASON FOR VISIT Medication refill request PLAN OF CARE VITAL SIGNS MEDICATIONS Medication Instructions Dosage Frequency Start Date End Date Duration Status Enalapril Maleate 20 MG Orally Once a day 1 tablet 24h Nov, 90 days Active RESULTS No Results PROCEDURES No Known procedures INSTRUCTIONS MEDICATIONS ADMINISTERED No Known Medications MEDICAL (GENERAL) HISTORY Type Description Date Medical History Hypertension Medical History Chronic Obstructive pulmonary disease diagnosed 2008 in [place]-PFT not done previously Medical History Gastrointestinal disorder [...]
--- OUTSIDE RECORDS SUMMARY | 2018-08-21 15:38 | XMS REPORT ---
Author Author BRETT JOHNSON Organization [facility] Address [address] [place] [address] Care Team Providers Care Prover Name Role Phone BRETT JOHNSON Unavailable PROBLEMS Type Condition ICD9-CM Code BML94-UO Code Onset Dates Condition Status SNOMED Code Problem Chronic sinusitis, unspecified J32.9 Active 08512914 Problem Other chronic pain G89.29 Active 56066818 Problem Gastroesophageal reflux disease without esophagitis K21.9 Active 399412544 Problem Slow transit constipation K59.01 Active 99443729 Problem Coronary artery disease involving yurok coronary artery of yurok heart without angina pectoris I25.10 Active 4810762255506 Problem Agoraphobia with panic attacks F40.01 Active 997039727 Problem COPD with exacerbation J44.1 Active 554279845 Problem Pericardial effusion I31.3 Active 837184185 Problem Pleural effusion on left J90 Active 25280592 Problem Generalized anxiety disorder F41.1 Active 22428045 Problem Chronic obstructive pulmonary disease, unspecified COPD type J44.9 Active 73908846 Problem Hypertension, benign I10 Active 81408003 Problem Oral phase dysphagia R13.11 Active 958346892 Problem Vitamin B 12 deficiency E53.8 Active 64795119 Problem Chronic fatigue R53.82 Active 11687845 ALLERGIES No Information ENCOUNTERS Encounter Location Date Diagnosis [facility] [id number] [address] Mar, Flank pain R10.9 [facility] [id number] [place] [address] 04068- 8938 Mar, [id number] [place] [address] 77659- 7142 Feb, Coronary artery disease involving yurok coronary artery of yurok heart without angina pectoris I25.10 ; Vitamin B 12 deficiency E53.8 ; Slow transit constipation K59.01 ; Generalized anxiety disorder F41.1 and Breast cancer screening by mammogram Z12.31 [facility] [id number] [address] Feb, Flank pain R10.9 [facility] [id number] [address] 9[address] January, [facility] [id number] [place] [address] 07551- 3081 January, Chronic obstructive pulmonary disease, unspecified COPD type J44.9 ; Pleural effusion on left J90 ; Pericardial effusion I31.3 and Generalized anxiety disorder F41.1 [facility] [id number] [place] [address] 09502- 8537 January, Gastroenteritis K52.9 [facility] [id number] [address] January, Flank pain R10.9 [facility] [id number] [address] January, [address] [id number] [place] [address] Dec [facility] [id number] [address] 4[address] Dec, [facility] [id number] [address] 4638 Dec, [facility] [id number] [address] 4265 Dec, [facility] [id number] [address] 7054 Dec, [facility] [id number] [address] 9272 Dec, Flank pain R10.9 [facility] [id number] [address] 2275 Dec, [facility] [id number] [place] [address] 58875- 8841 Nov, [facility] [id number] [place] [address] 41567- 6975 Nov, [facility] [id number] [place] [address] 50063- 1502 Nov, [facility] [id number] [place] [address] 44402- 7828 14 Nov, 2017 Pericardial effusion I31.3 ; Agoraphobia with panic attacks F40.01 and Vitamin B 12 deficiency E53.8 [facility] [id number] [place] [address] 33336- 1230 Nov, [facility] [id number] [place] [address] 11971- 8413 Nov, Pneumonia of both lungs due to infectious organism, unspecified part of lung J18.9 and Flank pain R10.9 [facility] [id number] [place] [address] 92750- 4052 Nov, Pneumonia of both lungs due to infectious organism, unspecified part of lung J18.9 and Gastroenteritis K52.9 [facility] [id number] [place] [address] 25417- 0500 Oct, Pneumonia of both lungs due to infectious organism, unspecified part of lung J18.9 and Vitamin B 12 deficiency E53.8 [facility] [id number] [place] [address] [id number] Oct, 2017 [facility] [id number] [place] [address] 33411- 9333 Oct, [facility] [id number] [place] [address] 87616- 1278 Oct, [facility] [id number] [place] [address] 84776- 9975 Oct, Flank pain R10.9 [facility] [id number] [place] [address] 53901- 8966 Oct, Other chronic pain G89.29 and Unspecified abdominal pain R10.9 [facility] [address] 6[address]15- 3198 Sep, Flank pain R10.9 [facility] [id number] [place] [address] 00974- 0138 Sep, [facility] [address] 52874- 3267 Sep, [facility] [id number] [place] [address] 10658- 0563 Sep, Acute non-recurrent maxillary sinusitis J01.00 [facility] [id number] [place] [address] 51454- 2906 Sep, Acute non-recurrent maxillary sinusitis J01.00 and Vitamin B 12 deficiency E53.8 [facility] [address] 52352- 8888 Sep, [facility] [id number] [place] [address] 33734- 6074 Sep, [facility] [id number] [place] [address] 30047- 3305 Sep, [facility] [id number] [place] [address] 70669- 0221 Sep, COPD with exacerbation J44.1 [facility] [address] 13204- 6911 Sep, Chronic obstructive pulmonary disease, unspecified COPD type J44.9 [facility] [id number] [place] [address] 86881- 4305 Aug, Flank pain R10.9 [facility] [id number] [place] [address] 13165- 8178 Jul, Flank pain R10.9 and Vitamin B 12 deficiency E53.8 [facility] [id number] [place] [address] 27092- 1337 Jul, [facility] [address] 76511- 6911 Jun, Gastroenteritis K52.9 [facility] [address] 00929- 3733 May, Gastroenteritis K52.9 and Vitamin B 12 deficiency E53.8 [facility] [address] 49125- 0237 Apr, Allergic conjunctivitis of left eye H10.12 and Chronic fatigue R53.82 [place] [address] 85392- 8034 Apr, Chronic sinusitis, unspecified J32.9 [facility] [address] 98720- 5738 Apr, [facility] [address] 79626- 8157 Feb, [facility] [address] 61682- 2399 January, [facility] [address] 19091- 6515 Dec, [facility] [id number] [place] [address] 92858- 7958 Oct, [facility] [id number] [place] [address] 61513- 4501 Sep, Oral phase dysphagia R13.11 and Vitamin B 12 deficiency E53.8 [facility] [address] 86784- 6169 Sep, [facility] [id number] [place] [address] 66334- 1430 Jul, [facility] [address] 77355- 2651 Jul, [facility] [id number] [place] [address] 67674- 8270 Jun, Bronchitis J40 ; Generalized anxiety disorder F41.1 and Chronic obstructive pulmonary disease, unspecified COPD type J44.9 [facility] [id number] [place] [address] 47199- 9899 Jun, [facility] [address] 00678- 4697 Jun, [facility] [id number] [place] [address] 33708- 7453 Jun, [facility] [address] 72658- 3523 May, Vitamin B 12 deficiency E53.8 ; Essential (primary) hypertension I10 ; Generalized anxiety disorder F41.1 ; Pain in joint, ankle and foot 719.47 ; Arthritis M19.90 ; Chronic obstructive pulmonary disease, unspecified COPD type J44.9 and Encounter for immunization Z23 [facility] [id number] [place] [address] 80228- 0731 Apr, [facility] [id number] [place] [address] 15452- 6673 Apr, [facility] [id number] [place] [address] 16473- 3412 Mar, [facility] [id number] [place] [address] 56571- 0561 January, [facility] [id number] [place] [address] 57763- 2988 Dec, [facility] [id number] [place] [address] 74261- 6351 Oct, [facility] [id number] [place] [address] 86273- 9846 Oct, [facility] [address] 13554- 5431 Oct, Hypertension, benign I10 and Vitamin B 12 deficiency E53.8 [address] [place] [id number] [place] [address] 12842- 5383 Oct, [address] [id number] [place] [address] 52434- 9905 Oct, [address] [id number] [place] [address] 54069- 7185 Oct, Irritable bowel syndrome with diarrhea K58.0 [address] [id number] [place] [address] 03738- 0224 Oct, [address] [id number] [place] [address] 13902- 6434 Oct, Vitamin B 12 deficiency E53.8 ; Hypertension, benign I10 and Chronic obstructive pulmonary disease, unspecified COPD type J44.9 [address] [place] [id number] [place] [address] 17329- 8256 Sep, Irritable bowel syndrome with diarrhea K58.0 ; Hypertension , benign I10 ; Chronic obstructive pulmonary disease, unspecified COPD type J44.9 ; Edema, unspecified type R60.9 ; Vision changes H53.9 and Vitamin B 12 deficiency E53.8 [address] [id number] [place] [address] 58654- 1454 Sep, [address] [id number] [place] [address] 85531- 8644 Jul, Degenerative disc disease 722.6 [place] [id number] [place] [address] 69006- 1207 Jun, Pain in right leg M79.604 ; Encounter for immunization Z23 and Pain of left leg M79.605 [address] [id number] [place] [address] 27074- 8397 Jun, [address] [address] 95198- 0245 Jun, [facility] [id number] [place] [address] 30650- 9783 Jun, Degenerative disc disease 722.6 [facility] [id number] [place] [address] 44924- 1365 Jun, [facility] [id number] [place] [address] 78586- 7902 28 May, 2015 Seizures 780.39 and Autonomic peripheral neuropathy 337.9 [facility] [id number] [place] [address] 96221- 2985 18 May, 2015 [facility] [id number] [place] [address] 16967- 5516 17 May, 2015 [facility] [id number] [place] [address] 43266- 8170 08 May, 2015 Degenerative disc disease 722.6 [facility] [id number] [place] [address] 62740- 9561 May, [facility] [id number] [place] [address] 32701- 1635 Mar, [facility] [id number] [place] [address] 17367- 8161 Mar, Degenerative disc disease 722.6 ; Spinal stenosis 724.00 and HTN (hypertension) 401.9 [facility] [id number] [place] [address] 28814- 0782 Feb, Cutaneous horn 702.8 [facility] [id number] [place] [address] 61648- 4881 Feb, Fatigue 780.79 [facility] [id number] [place] [address] 60181- 9460 Feb, Fatigue 780.79 ; Arthritis 716.90 ; Spinal stenosis 724.00 ; Sinusitis 473.9 and Cutaneous horn 702.8 [facility] [id number] [place] [address] 47745- 4096 January, [facility] [place] [facility] [address] [id number] [place] [address]- 3649 Dec, [facility] [place] [facility] [address] [id number] [place] [address]- 5716 Dec, [facility] [place] [facility] [address] [facility] [id number] [place] [address]- 4100 Nov, [facility] [place] [facility] [address] [id number] [place] [address]- 7361 Nov, [facility] [place] [facility] [address] [id number] [place] [address]- 6518 Oct, [facility] [place] [facility] [address] [id number] [place] [address]- 2497 Oct, [facility] [place] [facility] [address] [facility] [id number] [place] [address]- 6236 Oct, [facility] [place] [facility] [address] [facility] [id number] [place] [address]- 4707 Oct, [facility] [place] [facility] [address] [facility] [id number] [place] [address]- 9593 Oct, [facility] [place] [facility] [address] [facility] [id number] [place] [address]- 9393 Oct, [facility] [place] [facility] [address] [facility] [id number] [place] [address]- 2804 Sep, [facility] [place] [facility] [address] [id number] [address]- 3058 Sep, [facility] [place] [facility] [address] [id number] [address]- 9989 Sep, [facility] [place] [facility] [address] [facility] [id number] [address]- 6281 Sep, [facility] [place] [facility] [address] [facility] [id number] [address]- 5753 Sep, [facility] [place] [facility] [address] [id number] [place] [address]- 0388 Sep, [facility] [place] [facility] [address] [id number] [place] [address]- 2275 Sep, [facility] [place] [facility] [address] [id number] [place] [address]- 9319 Sep, [facility] [place] [facility] [address] [id number] [place] [address]- 8653 Sep, [facility] [place] [facility] [address] [id number] [place] [address]- 9158 Sep, [facility] [place] [facility] [address] [id number] [place] [address]- 9463 Sep, [facility] [place] [facility] [address] [id number] [place] [address]- 2992 Sep, [facility] [place] [facility] [address] [id number] [place] [address]- 4786 Sep, [facility] [place] [facility] [address] [id number] [place] [address]- 9859 Sep, [facility] [place] [facility] [address] [id number] [place] [address]- 4077 Aug, [facility] [place] [facility] [address] [id number] [place] [address]- 7405 Aug, [facility] [place] [facility] [address] [id number] [place] [address]- 5996 Aug, [facility] [place] [facility] [address] [id number] [place] [address]- 3478 Aug, [facility] [place] [facility] [address] [id number] [place] [address]- 5061 Jul, [facility] [place] [facility] [address] [id number] [place] [address]- 9807 Jul, [facility] [place] [facility] [address] [id number] [place] [address]- 3317 May, [facility] [place] [facility] [address] [id number] [place] [address]- 5433 May, [facility] [place] [facility] [address] [id number] [place] [address]- 4875 May, [facility] [place] [facility] [address] [id number] [place] [address]- 1687 May, [facility] [place] [facility] [address] [id number] [place] [address]- 9905 May, [facility] [place] [facility] [address] [id number] [place] [address]- 7363 May, [facility] [place] [facility] [address] [id number] [place] [address]- 8399 Apr, [facility] [place] [facility] [address] [id number] [place] [address]- 3155 Apr, [facility] [place] [facility] [address] [id number] [place] [address]- 6716 Mar, [facility] [place] [facility] [address] [id number] [place] [address]- 8589 Mar, [facility] [place] [facility] [address] [id number] [place] [address]- 4099 Mar, [facility] [place] [facility] [address] [id number] [place] [address]- 4671 Mar, [facility] [place] [facility] [address] [id number] [address]- 2784 Mar, [facility] [place] [facility] [address] [id number] [place] [address]- 1082 Mar, [facility] [place] [facility] [address] [id number] [place] [address]- 1130 Mar, [facility] [place] [facility] [address] [id number] [place] [address]- 6249 Mar, [facility] [place] [facility] [address] [id number] [place] [address]- 0652 Feb, [facility] [address] [id number] [place] [address]- 0680 Feb, [facility] [place] [facility] [address] [id number] [place] [address]- 4938 January, [facility] [place] [facility] [address] [id number] [place] 5954 January, [facility] [place] [facility] [address] [id number] [place] [address]- 2487 January, [facility] [place] [facility] [address] [id number] [place] [address]- 9928 January, [facility] [place] [facility] [address] [id number] [place] [address]- 2523 Dec, [facility] [place] [facility] [address] [id number] [place] [address]- 0823 Dec, [facility] [place] [facility] [address] [id number] [place] [address]- 5322 Oct, [facility] [place] [facility] [address] [id number] [place] [address]- 8798 Oct, [facility] [place] [facility] [address] [id number] [place] [address]- 9899 Oct, [facility] [place] [facility] [address] [id number] [place] [address]- 2815 Oct, [facility] [place] [facility] [address] [id number] [place] [address]- 1324 Sep, [facility] [place] [facility] [address] [id number] [place] 3626 Sep, [facility] [place] [facility] [address] [id number] [place] [address]- 3256 Aug, [facility] [place] [facility] [address] [id number] [place] 7654 Aug, [facility] [place] [facility] [address] [id number] [place] [address]- 8365 Aug, [facility] [place] [facility] [address] [id number] [place] [address]- 8245 Aug, [facility] [place] [facility] [address] [id number] [place] 0997 Aug, [facility] [place] [facility] [address] [id number] [place] [address]- 2441 Aug, [facility] [place] [facility] [address] [id number] [place] [address]- 6933 Aug, [facility] [place] [facility] [address] [id number] [place] [address]- 3611 Aug, [facility] [place] [facility] [address] [id number] [place] 1361 Aug, [facility] [place] [facility] [address] [id number] [place] [address] Aug, [facility] [place] [facility] [address] [id number] [place] [address] Jul, [facility] [place] [facility] [address] [id number] [place] [address] Jul, [facility] [place] [facility] [address] [id number] [address] Jun, [facility] [place] [facility] [address] [id number], [place] [address] Jun, [facility] [place] [facility] [address] [id number] [place] [address] Jun, [facility] [place] [facility] [address] [id number] [place] [address] Jun, [facility] [place] [facility] [address] [id number] [place] [address] Jun, [facility] [place] [facility] [address] [id number] [place] [address] 13 May, 2012 [facility] [address] [id number] [place] [address] 13 May, 2012 [facility] [place] [facility] [address] [id number] [place] [address] 12 May, 2013 [facility] [address] [id number] [place] [address] 06 May, 2012 [facility] [place] [facility] [address] [id number] [place] [address] 03 May, 2013 [facility] [address] [id number] [place] [address] Apr, [facility] [place] [facility] [address] [id number] [place] [address] Mar, [facility] [address] [id number] [place] [address] Mar, [facility] [address] [id number] [place] [address] Mar, [facility] [address] [id number] [place] [address] Mar, [facility] [address] [id number] [place] [address] Mar, [facility] [address] [id number] [place] [address] Mar, [facility] [place] [facility] [address] [id number] [place] [address] Mar, [facility] [place] [facility] [address] [id number] [place] [address] Mar, [facility] [place] [facility] [address] [id number] [place] [address] Mar, [facility] [place] [facility] [address] [id number] [place] [address] Feb, [facility] [place] [facility] [address] [id number] [place] [address] 17 Feb, 2013 [facility] [address] [id number] [place] [address] Feb, [facility] [address] [id number] [place] [address] January, [facility] [address] [id number] [place] [address] January, [facility] [address] [id number] [place] [address] January, [facility] [address] [id number] [place] [address] January, [facility] [address] [id number] [place] [address] Dec, [facility] [address] [id number] [place] [address] Dec, [facility] [address] [id number] [place] [address] [address] Dec, [facility] [address] [id number] [place] [address] [address] Dec, [facility] [address] [id number] [place] [address] Dec, [facility] [address] [id number] [place] [address] Dec, [facility] [address] [id number] [place] [address] Nov, [facility] [place] [facility] [address] [id number] [place] [address] Oct, [facility] [place] [facility] [address] [id number] [place] [address] Aug, [facility] [address] [id number] [place] [address] Aug, [facility] [place] [facility] [address] [id number] [place] [address] 17 Aug, 2012 [facility] [place] [facility] [address] [id number] [place] [address] Aug, [facility] [facility] [address] [facility] [id number] [place] [address] Aug, [facility] [place] [facility] [address] [id number] [place] [address] Aug, [facility] [place] [facility] [address] [id number] [place] [address] Aug, [facility] [place] [facility] [address] [id number] [place] [address] Aug, [facility] [place] [facility] [address] [id number] [place] [address] Aug, [facility] [place] [facility] [address] [id number] [place] [address] Aug, [facility] [place] [facility] [address] [id number] [place] [address] Aug, [facility] [place] [facility] [address] [id number] [place] [address] Jul, [facility] [place] [facility] [address] [id number] [address] 30 Jul, 2012 [facility] [facility] [address] [id number] [address] Jul, [facility] [place] [facility] [address] [id number] [place] [address] Jul, [facility] [place] [facility] [address] [facility] [id number] [place] [address] Jul, [facility] [place] [facility] [address] [facility] [id number] [place] [address] Jul, [facility] [place] [facility] [address] [id number] [place] [address] Jun, [facility] [address] [id number] [place] [address] Jun, [facility] [place] [facility] [address] [id number] [place] [address] May, [facility] [address] [id number] [place] [address] Apr, [facility] [facility] [address] [id number] [place] [address] Apr, [facility] [address] [id number] [place] [address] Apr, [facility] [address] [id number] [place] [address] Apr, [facility] [address] [id number] [place] [address] Apr, [facility] [address] [id number] [place] [address] Mar, [facility] [address] [id number] [place] [address] Mar, [facility] [address] [id number] [place] [address] January, [facility] [address] [id number] [place] [address] [address] January, [facility] [address] [id number] [place] [address] Nov, [facility] [place] [facility] [address] [id number] [place] [address] Oct, [facility] [address] [id number] [place] [address] Sep, [facility] [address] [id number] [place] [address] Sep, [facility] [address] [id number] [place] [address] Sep, [facility] [address] [id number] [place] [address] Sep, [facility] [address] [id number] [place] [address] Sep, [facility] [address] [id number] [place] [address] Sep, [facility] [address] [id number] [place] [address] Aug, [facility] [facility] [address] [id number] [place] [address] Aug, [facility] [address] [id number] [place] [address] Aug, [facility] [address] [id number] [place] [address]- [address] Aug, [facility] [facility] [address] [id number] [place] [address] 114[address] Aug, [facility] [facility] [address] [id number] [address] Jul, [facility] [address] [id number], [place] [address] Jul, [facility] [address] [id number], [place] [address] Jul, [facility] [address] [id number] [place] [address] Jun, [facility] [address] [id number] [place] [address]- 8546 Jun, [facility] [address] [id number] [address] Jun, [facility] [address] [id number] [address] January, [facility] [address] [id number] [address] Dec, [facility] [id number] [address] Oct, [facility] [address] [id number] [address] Oct, [facility] [id number] [address] Jun, [facility] [id number] [address] Aug, [facility] [id number] [address] Aug, [facility] [id number] [address] Jul, [facility] [address] [id number] [address] Mar, IMMUNIZATIONS No Known Immunizations SOCIAL HISTORY Never Assessed REASON FOR VISIT med refill PLAN OF CARE VITAL SIGNS MEDICATIONS Medication Instructions Dosage Frequency Start Date End Date Duration Status Atenolol 100 MG Orally 2 times a day TAKE ONE-HALF TABLET BY MOUTH TWICE DAILY 12h 90 days Active RESULTS No Results PROCEDURES No Known procedures INSTRUCTIONS MEDICATIONS ADMINISTERED No Known Medications MEDICAL (GENERAL) HISTORY Type Description Date Medical History Hypertension Medical History Chronic Obstructive pulmonary disease diagnosed 2008 in [place]-PFT not done previously Medical History Gastrointestinal disorder [...]
--- OUTSIDE RECORDS SUMMARY | 2018-08-21 15:39 | XMS REPORT ---
Author Author KAITLIN TURNER Organization [facility] Address [address] [place] [address] Care Team Providers Care Svp Monetization Name Role Phone KAITLIN TURNER Unavailable PROBLEMS Type Condition ICD9-CM Code QBT44-WD Code Onset Dates Condition Status SNOMED Code Problem Chronic sinusitis, unspecified J32.9 Active 45357716 Problem Other chronic pain G89.29 Active 25915341 Problem Gastroesophageal reflux disease without esophagitis K21.9 Active 331932284 Problem Slow transit constipation K59.01 Active 75675297 Problem Coronary artery disease involving igiugig coronary artery of igiugig heart without angina pectoris I25.10 Active 8671239123992 Problem Agoraphobia with panic attacks F40.01 Active 907463274 Problem COPD with exacerbation J44.1 Active 430538132 Problem Pericardial effusion I31.3 Active 971985435 Problem Pleural effusion on left J90 Active 31581414 Problem Generalized anxiety disorder F41.1 Active 68227980 Problem Chronic obstructive pulmonary disease, unspecified COPD type J44.9 Active 48911862 Problem Hypertension, benign I10 Active 80949961 Problem Oral phase dysphagia R13.11 Active 837441452 Problem Vitamin B 12 deficiency E53.8 Active 15373555 Problem Chronic fatigue R53.82 Active 16029787 ALLERGIES No Information ENCOUNTERS Encounter Location Date Diagnosis [facility] [id number] [address] Mar, Flank pain R10.9 [facility] [id number] [address] Mar, [facility] [id number] [address] 8[address] Feb, Coronary artery disease involving igiugig coronary artery of igiugig heart without angina pectoris I25.10 ; Vitamin B 12 deficiency E53.8 ; Slow transit constipation K59.01 ; Generalized anxiety disorder F41.1 and Breast cancer screening by mammogram Z12.31 [facility] [address], [place] [address] Feb, Flank pain R10.9 [facility] [address], [place] [address] January, [facility] [address], [place] [address] January, Chronic obstructive pulmonary disease, unspecified COPD type J44.9 ; Pleural effusion on left J90 ; Pericardial effusion I31.3 and Generalized anxiety disorder F41.1 [facility] [address], [place] [address] January, Gastroenteritis K52.9 [facility] [address], [place] [address] January, Flank pain R10.9 [facility] [address], [place] [address] January, [address] [id number] [place] [address] Dec [facility] [address], [place] [address] Dec, [facility] [id number], [place] [address] 58[address] Dec, [facility] [id number], [place] [address] 16[address] Dec, [facility] [address] [facility] [id number], [place] [address] Dec, [facility] [address], [place] [address] Dec, Flank pain R10.9 [facility] [id number], [place] [address] 39[address] Dec, [facility] [id number] [place] [address] 35539- 6316 Nov, [facility] [id number] [place] [address] 31775- 5701 Nov, [facility] [id number] [place] [address] 02763- 5876 Nov, [facility] [id number] [place] [address] 84625- 2203 14 Nov, 2017 Pericardial effusion I31.3 ; Agoraphobia with panic attacks F40.01 and Vitamin B 12 deficiency E53.8 [facility] [id number] [place] [address] 22108- 6869 Nov, [facility] [id number] [place] [address] 00593- 6380 Nov, Pneumonia of both lungs due to infectious organism, unspecified part of lung J18.9 and Flank pain R10.9 [facility] [id number] [place] [address] 85375- 0875 Nov, Pneumonia of both lungs due to infectious organism, unspecified part of lung J18.9 and Gastroenteritis K52.9 [facility] [id number] [place] [address] 51941- 7073 Oct, Pneumonia of both lungs due to infectious organism, unspecified part of lung J18.9 and Vitamin B 12 deficiency E53.8 [facility] [id number] [place] [address] [id number] Oct, [facility] [id number] [place] [address] 33762- 8471 Oct, [facility] [id number] [place] [address] 14170- 6636 Oct, [facility] [id number] [place] [address] 29715- 8647 Oct, Flank pain R10.9 [facility] [id number] [place] [address] 02859- 6500 Oct, Other chronic pain G89.29 and Unspecified abdominal pain R10.9 [facility] [address] [address]- 6867 Sep, Flank pain R10.9 [facility] [id number] [place] [address] 55036- 6971 Sep, [facility] [address] [address]- 9897 Sep, [facility] [id number] [place] [address] 19999- 2393 Sep, Acute non-recurrent maxillary sinusitis J01.00 [facility] [id number] [place] [address] 16884- 2369 Sep, Acute non-recurrent maxillary sinusitis J01.00 and Vitamin B 12 deficiency E53.8 [facility] [id number] [place] [address] 43042- 8217 Sep, [facility] [id number] [place] [address] 95705- 9556 Sep, [facility] [id number] [place] [address] 14154- 6585 Sep, [facility] [id number] [place] [address] 35279- 3242 Sep, COPD with exacerbation J44.1 [facility] [id number] [place] [address] 07809- 6626 Sep, Chronic obstructive pulmonary disease, unspecified COPD type J44.9 [facility] [id number] [place] [address] 93968- 3927 Aug, Flank pain R10.9 [facility] [id number] [place] [address] 61165- 5400 Jul, Flank pain R10.9 and Vitamin B 12 deficiency E53.8 [facility] [id number] [place] [address] 97945- 0407 Jul, [facility] [address] [address]378- 1519 Jun, Gastroenteritis K52.9 [facility] [id number] [place] [address] 40705- 4720 May, Gastroenteritis K52.9 and Vitamin B 12 deficiency E53.8 [facility] [address] 97445- 5076 Apr, Allergic conjunctivitis of left eye H10.12 and Chronic fatigue R53.82 [facility] [address] [address]68- 7617 Apr, Chronic sinusitis, unspecified J32.9 [facility] [facility] [address] 64635- 4988 Apr, [facility] [id number] [place] [address] 13400- 5753 Feb, [facility] [id number] [place] [address] 96047- 0472 January, [facility] [id number] [place] [address] 75453- 9708 Dec, [facility] [id number] [place] [address] 51806- 0675 Oct, [facility] [id number] [place] [address] 33334- 3134 Sep, Oral phase dysphagia R13.11 and Vitamin B 12 deficiency E53.8 [facility] [id number] [place] [address] 22030- 6606 Sep, [facility] [id number] [place] [address] 06729- 7721 Jul, [facility] [id number] [place] [address] 14953- 1840 Jul, [facility] [id number] [place] [address] 06665- 9051 Jun, Bronchitis J40 ; Generalized anxiety disorder F41.1 and Chronic obstructive pulmonary disease, unspecified COPD type J44.9 [facility] [id number] [place] [address] 44380- 0151 Jun, [facility] [address] 63205- 5620 Jun, [facility] [id number] [place] [address] 53615- 2833 Jun, [facility] [address] 00372- 8817 May, Vitamin B 12 deficiency E53.8 ; Essential (primary) hypertension I10 ; Generalized anxiety disorder F41.1 ; Pain in joint, ankle and foot 719.47 ; Arthritis M19.90 ; Chronic obstructive pulmonary disease, unspecified COPD type J44.9 and Encounter for immunization Z23 [facility] [id number] [place] [address] 69749- 3641 Apr, [facility] [id number] [place] [address] 87572- 4308 Apr, [facility] [id number] [place] [address] 90401- 6462 Mar, [facility] [id number] [place] [address] 17894- 8199 January, [facility] [id number] [place] [address] 20789- 9186 Dec, [facility] [address] 03899- 8638 Oct, [facility] [id number] [place] [address] 71071- 1610 Oct, [facility] [address] 97289- 4047 Oct, Hypertension, benign I10 and Vitamin B 12 deficiency E53.8 [facility] [id number] [place] [address] 26708- 3566 Oct, [facility] [id number] [place] [address] 08404- 8928 Oct, [address] [place] [address] 47639- 3559 Oct, Irritable bowel syndrome with diarrhea K58.0 [facility] [id number] [place] [address] 60758- 9807 Oct, [facility] [id number] [place] [address] 89576- 7439 Oct, Vitamin B 12 deficiency E53.8 ; Hypertension, benign I10 and Chronic obstructive pulmonary disease, unspecified COPD type J44.9 [facility] [id number] [place] [address] 38883- 3453 Sep, Irritable bowel syndrome with diarrhea K58.0 ; Hypertension , benign I10 ; Chronic obstructive pulmonary disease, unspecified COPD type J44.9 ; Edema, unspecified type R60.9 ; Vision changes H53.9 and Vitamin B 12 deficiency E53.8 [facility] [id number] [place] [address] 33642- 3042 Sep, [facility] [id number] [place] [address] 43756- 2396 Jul, Degenerative disc disease 722.6 [facility] [id number] [place] [address] 43284- 8772 Jun, Pain in right leg M79.604 ; Encounter for immunization Z23 and Pain of left leg M79.605 [facility] [id number] [place] [address] 53303- 6679 Jun, [facility] [facility] [address] 54602- 4847 Jun, [facility] [id number] [place] [address] 96301- 0481 Jun, Degenerative disc disease 722.6 [facility] [id number] [place] [address] 41290- 2042 Jun, [facility] [id number] [place] [address] 35224- 0378 28 May, 2015 Seizures 780.39 and Autonomic peripheral neuropathy 337.9 [facility] [id number] [place] [address] 88713- 0973 18 May, 2015 [facility] [address] 95287- 0498 17 May, 2015 [facility] [id number] [place] [address] 80412- 4730 08 May, 2015 Degenerative disc disease 722.6 [facility] [id number] [place] [address] 11399- 2778 08 May, 2015 [facility] [id number] [place] [address] 43318- 4152 Mar, [facility] [id number] [place] [address] 33540- 1685 Mar, Degenerative disc disease 722.6 ; Spinal stenosis 724.00 and HTN (hypertension) 401.9 [facility] [id number] [place] [address] 51578- 4581 Feb, Cutaneous horn 702.8 [facility] [id number] [place] [address] 04686- 7115 Feb, Fatigue 780.79 [facility] [id number] [place] [address] 91825- 5506 Feb, Fatigue 780.79 ; Arthritis 716.90 ; Spinal stenosis 724.00 ; Sinusitis 473.9 and Cutaneous horn 702.8 [facility] [id number] [place] [address] 75670- 5698 January, [facility] [place] [facility] [address] [id number] [place] [address]- 8654 Dec, [facility] [place] [facility] [address] [id number] [place] [address]- 7177 Dec, [facility] [place] [facility] [address] [facility] [id number] [place] [address]- 2253 Nov, [facility] [place] [facility] [address] [id number] [place] [address]- 7858 Nov, [facility] [place] [facility] [address] [id number] [place] [address]- 8504 Oct, [facility] [place] [facility] [address] [id number] [place] [address]- 3234 Oct, [facility] [place] [facility] [address] [facility] [id number] [place] [address]- 8379 Oct, [facility] [place] [facility] [address] [facility] [id number] [place] [address]- 7760 Oct, [facility] [place] [facility] [address] [id number] [place] [address]- 7866 Oct, [facility] [place] [facility] [address] [facility] [id number] [place] [address]- 5513 Oct, [facility] [place] [facility] [address] [facility] [id number] [place] [address]- 6961 Sep, [facility] [place] [facility] [address] [id number] [place] [address]- 1932 Sep, [facility] [place] [facility] [address] [id number] [place] [address]- 8314 Sep, [facility] [place] [facility] [address] [facility] [id number] [place] [address]- 2528 Sep, [facility] [place] [facility] [address] [facility] [id number], [place] [address]- 2184 Sep, [facility] [place] [facility] [address] [id number] [place] [address]- 2208 Sep, [facility] [place] [facility] [address] [id number] [place] [address]- 7836 Sep, [facility] [place] [facility] [address] [id number] [place] [address]- 1896 Sep, [facility] [place] [facility] [address] [id number] [place] [address]- 0371 Sep, [facility] [place] [facility] [address] [id number] [place] [address]- 4866 Sep, [facility] [place] [facility] [address] [id number] [place] [address]- 7170 Sep, [facility] [place] [facility] [address] [id number] [place] [address]- 3167 Sep, [facility] [place] [facility] [address] [id number] [place] [address]- 9505 Sep, [facility] [place] [facility] [address] [id number] [place] [address]- 6584 Sep, [facility] [place] [facility] [address] [id number] [place] [address]- 3574 Aug, [facility] [place] [facility] [address] [id number] [place] [address]- 2447 Aug, [facility] [place] [facility] [address] [id number] [place] [address]- 1218 Aug, [facility] [place] [facility] [address] [id number] [place] [address]- 2662 Aug, [facility] [place] [facility] [address] [id number] [place] [address]- 0061 Jul, [facility] [place] [facility] [address] [id number] [place] [address]- 8266 Jul, [facility] [place] [facility] [address] [id number] [place] [address]- 3012 May, [facility] [place] [facility] [address] [id number] [place] [address]- 8266 May, [facility] [place] [facility] [address] [id number] [place] [address]- 0315 May, [facility] [place] [facility] [address] [id number] [place] [address]- 4813 May, [facility] [place] [facility] [address] [id number] [place] [address]- 0789 May, [facility] [place] [facility] [address] [id number] [place] [address]- 6017 May, [facility] [place] [facility] [address] [id number] [place] [address]- 0661 Apr, [facility] [place] [facility] [address] [id number] [place] [address]- 4898 Apr, [facility] [place] [facility] [address] [id number] [place] [address]- 3097 Mar, [facility] [place] [facility] [address] [id number] [place] [address]- 2737 Mar, [facility] [place] [facility] [address] [id number] [place] [address]- 0351 Mar, [facility] [place] [facility] [address] [id number] [place] [address]- 8894 Mar, [facility] [place] [facility] [address] [id number] [place] [address]- 3108 Mar, [facility] [place] [facility] [address] [id number] [place] [address]- 7415 Mar, [facility] [place] [facility] [address] [id number] [place] [address]- 7752 Mar, [facility] [place] [facility] [address] [id number] [place] [address]- 8767 Mar, [facility] [place] [facility] [address] [id number] [place] [address]- 9537 Feb, [facility] [address] [id number] [place] [address]- 3082 Feb, [facility] [place] [facility] [address] [id number] [place] [address]- 2136 January, [facility] [place] [facility] [address] [id number] [place] [address]- 9359 January, [facility] [place] [facility] [address] [id number] [place] [address]- 6448 January, [facility] [place] [facility] [address] [id number] [place] [address]- 6630 January, [facility] [place] [facility] [address] [id number] [place] [address]- 6566 Dec, [facility] [place] [facility] [address] [id number] [place] [address]- 0383 Dec, [facility] [place] [facility] [address] [id number] [place] [address]- 2927 Oct, [facility] [place] [facility] [address] [id number] [place] [address]- 7535 Oct, [facility] [place] [facility] [address] [id number] [place] [address]- 2261 Oct, [facility] [place] [facility] [address] [id number] [place] [address]- 3848 Oct, [facility] [place] [facility] [address] [id number] [place] [address]- 6896 Sep, [facility] [place] [facility] [address] [id number] [place] [address]- 5478 Sep, [facility] [place] [facility] [address] [id number] [place] [address]- 2423 Aug, [facility] [place] [facility] [address] [id number] [place] [address]- 5755 Aug, [facility] [address] [id number] [place] [address]- 4052 Aug, [facility] [place] [facility] [address] [id number] [place] [address]- 6396 Aug, [facility] [place] [facility] [address] [id number] [place] [address]- 7810 Aug, [facility] [place] [facility] [address] [id number] [place] [address]- 4997 Aug, [facility] [address] [id number] [place] [address]- 1160 Aug, [facility] [place] [facility] [address] [id number] [place] [address]- 5686 Aug, [facility] [place] [facility] [address] [id number] [place] [address]- 1391 Aug, [facility] [place] [facility] [address] [id number] [place] [address]- 0039 Aug, [facility] [place] [facility] [address] [id number] [place] [address]- 6864 Jul, [facility] [place] [facility] [address] [id number], [place] [address]- 9873 Jul, [facility] [place] [facility] [address] [id number], [place] [address]- 7110 Jun, [facility] [place] [facility] [address] [id number], [place] [address]- 7508 Jun, [facility] [place] [facility] [address] [id number], [place] [address]- 5432 Jun, [facility] [place] [facility] [address] [id number], [place] [address]- 9026 Jun, [facility] [place] [facility] [address] [facility] [id number], [place] [address] Jun, [facility] [place] [facility] [address] [id number] [place] [address] 13 May, 2012 [facility] [address] [id number] [place] [address] 13 May, 2012 [facility] [place] [facility] [address] [id number] [place] [address] 12 May, 2012 [facility] [address] [id number] [place] [address] 06 May, 2012 [facility] [place] [facility] [address] [id number] [place] [address] 254 03 May, 2012 [facility] [place] [facility] [address] [id number] [place] [address] Apr, [facility] [place] [facility] [address] [id number] [place] [address] Mar, [facility] [address] [id number] [place] [address] 15 Mar, 2013 [facility] [place] [facility] [address] [id number] [place] [address] Mar, [facility] [place] [facility] [address] [id number] [place] [address] Mar, [facility] [place] [facility] [address] [id number] [place] [address] Mar, [facility] [place] [facility] [address] [id number] [place] [address] Mar, [facility] [place] [facility] [address] [id number] [place] [address] Mar, [facility] [place] [facility] [address] [id number] [place] [address] Mar, [facility] [place] [facility] [address] [id number] [place] [address] Mar, [facility] [place] [facility] [address] [id number] [place] [address] Feb, [facility] [place] [facility] [address] [id number] [place] [address] Feb, [facility] [address] [id number] [place] [address] Feb, [facility] [address] [id number] [place] [address] January, [facility] [address] [id number] [place] [address] January, [facility] [address] [id number] [place] [address] January, [facility] [address] [id number] [place] [address] January, [facility] [address] [id number] [place] [address] Dec, [facility] [address] [id number] [place] [address] Dec, [facility] [address] [id number] [place] [address] Dec, [facility] [address] [id number] [place] [address] Dec, [facility] [address] [id number] [place] [address] Dec, [facility] [address] [id number] [place] [address] Dec, [facility] [address] [id number] [place] [address] Nov, [facility] [address] [id number] [place] [address] Oct, [facility] [address] [id number] [place] [address] Aug, [facility] [address] [id number] [place] [address] Aug, [facility] [place] [facility] [address] [id number] [place] [address] Aug, [facility] [place] [facility] [address] [id number] [place] [address] Aug, [facility] [place] [facility] [address] [id number] [place] [address]- [address] Aug, [facility] [place] [facility] [address] [id number] [place] [address] Aug, [facility] [place] [facility] [address] [id number] [place] [address] Aug, [facility] [place] [facility] [address] [id number] [place] [address] Aug, [facility] [place] [facility] [address] [id number] [place] [address] Aug, [facility] [place] [facility] [address] [id number] [place] [address]- [address] Aug, [facility] [place] [facility] [address] [id number] [place] [address] Aug, [facility] [place] [facility] [address] [id number] [place] [address]- [address] Jul, [facility] [place] [facility] [address] [id number] [place] [address]- [address] Jul, [facility] [place] [facility] [address] [id number] [place] [address]- [address] Jul, [facility] [place] [facility] [address] [id number] [place] [address] Jul, [facility] [place] [facility] [address] [id number] [place] [address] Jul, [facility] [place] [facility] [address] [id number] [place] [address]- [address] Jul, [facility] [place] [facility] [address] [id number] [place] [address] Jun, [facility] [address] [address] [id number] [place] [address] Jun, [facility] [place] [facility] [address] [id number] [place] [address] May, [facility] [address] [id number] [place] [address] Apr, [facility] [place] [facility] [address] [id number] [place] [address] Apr, [facility] [address] [id number] [place] [address] Apr, [facility] [address] [id number] [place] [address] Apr, [facility] [address] [id number] [place] [address] Apr, [facility] [address] [id number] [place] [address] Mar, [facility] [place] [facility] [address] [id number] [place] [address] Mar, [facility] [address] [id number] [place] [address] January, [facility] [address] [id number] [place] [address] January, [facility] [address] [id number] [place] [address] Nov, [facility] [place] [facility] [address] [id number] [place] [address] Oct, [facility] [place] [facility] [address] [id number] [place] [address] Sep, [facility] [place] [facility] [address] [id number] [place] [address] Sep, [facility] [place] [facility] [address] [id number] [place] [address] Sep, [facility] [place] [facility] [address] [id number] [place] [address] Sep, [facility] [place] [facility] [address] [id number] [place] [address] Sep, [facility] [place] [facility] [address] [id number] [place] [address] Sep, [facility] [place] [facility] [address] [id number] [place] [address] Aug, [facility] [place] [facility] [address] [id number] [place] [address] Aug, [facility] [place] [facility] [address] [id number] [place] [address] Aug, [facility] [place] [facility] [address] [id number] [place] [address] Aug, [facility] [place] [facility] [address] [id number] [place] [address] Aug, [facility] [place] [facility] [address] [id number], [place] [address] Jul, [facility] [place] [facility] [address] [id number] [place] [address] Jul, [facility] [place] [facility] [address] [id number], [place] [address] Jul, [facility] [place] [facility] [address] [id number] [place] [address] Jun, [facility] [place] [facility] [address] [id number] [place] [address] Jun, [facility] [place] [facility] [address] [id number] [place] [address] Jun, [facility] [place] [facility] [id number], [place] [address] January, [facility] [id number] [place] [address] Dec, [facility] [id number], [place] [address] 17 Oct, 2010 [facility] [id number] [place] [address] Oct, [facility] [id number] [place] [address] Jun, [facility] [id number] [place] [address] Aug, [facility] [id number] [place] [address] Aug, [facility] [id number] [place] [address] Jul, [facility] [id number], [place] [address] Mar, IMMUNIZATIONS No Known Immunizations SOCIAL HISTORY Never Assessed REASON FOR VISIT Medication Refills PLAN OF CARE VITAL SIGNS MEDICATIONS Medication Instructions Dosage Frequency Start Date End Date Duration Status Ranitidine HCl 150 MG Orally Twice a day 1 tablet as needed 12h 90 days Active Enalapril Maleate 20 MG Orally Once a day 1 tablet 24h Nov, 90 days Active RESULTS No Results PROCEDURES No Known procedures INSTRUCTIONS MEDICATIONS ADMINISTERED No Known Medications MEDICAL (GENERAL) HISTORY Type Description Date Medical History Hypertension Medical History Chronic Obstructive pulmonary disease diagnosed 2008 in [place]-PFT not done previously Medical History Gastrointestinal disorder [...]
--- OUTSIDE RECORDS SUMMARY | 2018-08-21 15:39 | XMS REPORT ---
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 Name Role Phone BRETT JOHNSON Unavailable PROBLEMS Type Condition ICD9-CM Code [id number] Code Onset Dates Condition Status SNOMED Code Problem Chronic sinusitis, unspecified J32.9 Active 33522041 Problem Other chronic pain G89.29 Active 81492087 Problem Gastroesophageal reflux disease without esophagitis K21.9 Active 132950519 Problem Slow transit constipation K59.01 Active 41979398 Problem Coronary artery disease involving [place] coronary artery of [place] heart without angina pectoris I25.10 Active [id number] Problem Agoraphobia with panic attacks F40.01 Active 963947797 Problem COPD with exacerbation J44.1 Active 045355291 Problem Pericardial effusion I31.3 Active 736644576 Problem Pleural effusion on left J90 Active 71620675 Problem Generalized anxiety disorder F41.1 Active 50294573 Problem Chronic obstructive pulmonary disease, unspecified COPD type J44.9 Active 49347719 Problem Hypertension, benign I10 Active 84322339 Problem Oral phase dysphagia R13.11 Active 594885177 Problem Vitamin B 12 deficiency E53.8 Active 81897508 Problem Chronic fatigue R53.82 Active 75231397 ALLERGIES No Information ENCOUNTERS Encounter Location Date Diagnosis [facility] [id number] [address] Mar, Flank pain R10.9 [facility] [id number] [place] [address] 96562- 7342 Mar, [id number] [place] [address] 56625- 1290 Feb, Coronary artery disease involving coy[place] valley coronary artery of [place] heart without angina pectoris I25.10 ; Vitamin B 12 deficiency E53.8 ; Slow transit constipation K59.01 ; Generalized anxiety disorder F41.1 and Breast cancer screening by mammogram Z12.31 [facility] [address] [address] Feb, Flank pain R10.9 [facility] [address] [address] January, [facility] [id number] [place] [address] 89590- 8946 January, Chronic obstructive pulmonary disease, unspecified COPD type J44.9 ; Pleural effusion on left J90 ; Pericardial effusion I31.3 and Generalized anxiety disorder F41.1 [facility] [id number] [place] [address] 84232- 9966 January, Gastroenteritis K52.9 [facility] [address] [address] 119[address] January, Flank pain R10.9 [facility] [address] [address] January, [address] [id number] [place] [address] Dec [facility] [address] [address] 27[address] Dec, [facility] [address] [address] 5788 Dec, [facility] [address] [address] 1649 Dec, [facility] [address] [address] 34[address] Dec, [facility] [id number] [address] 2110 Dec, Flank pain R10.9 [facility] [address] [address] 0[address] Dec, [facility] [id number] [place] [address] 57304- 4550 Nov, [facility] [id number] [place] [address] 38697- 9848 Nov, [facility] [id number] [place] [address] 01108- 4050 Nov, [facility] [id number] [place] [address] 90596- 3384 14 Nov, 2017 Pericardial effusion I31.3 ; Agoraphobia with panic attacks F40.01 and Vitamin B 12 deficiency E53.8 [facility] [id number] [place] [address] 14507- 9953 Nov, [facility] [id number] [place] [address] 59036- 7835 Nov, Pneumonia of both lungs due to infectious organism, unspecified part of lung J18.9 and Flank pain R10.9 [facility] [id number] [place] [address] 09988- 6381 Nov, Pneumonia of both lungs due to infectious organism, unspecified part of lung J18.9 and Gastroenteritis K52.9 [facility] [id number] [place] [address] 95191- 2660 Oct, Pneumonia of both lungs due to infectious organism, unspecified part of lung J18.9 and Vitamin B [address] [facility] [id number] [place] [address] [id number] 16 Oct, 2017 [facility] [id number] [place] [address] 17827- 6514 Oct, [facility] [id number] [place] [address] 26783- 4332 Oct, [facility] [id number] [place] [address] 75123- 5349 Oct, Flank pain R10.9 [facility] [id number] [place] [address] 26350- 7347 Oct, Other chronic pain G89.29 and Unspecified abdominal pain R10.9 [facility] [address] [address]- 8873 Sep, Flank pain R10.9 [facility] [id number] [place] [address] 01061- 2885 Sep, [facility] [address] 60394- 5656 Sep, [facility] [id number] [place] [address] 50149- 7264 Sep, Acute non-recurrent maxillary sinusitis J01.00 [facility] [id number] [place] [address] 08503- 6927 Sep, Acute non-recurrent maxillary sinusitis J01.00 and Vitamin B 12 deficiency E53.8 [facility] [address] 43159- 1712 Sep, [facility] [id number] [place] [address] 29978- 6813 Sep, [facility] [id number] [place] [address] 46993- 6145 Sep, [facility] [id number] [place] [address] 84039- 8456 Sep, COPD with exacerbation J44.1 [facility] [address] 17053- 8458 Sep, Chronic obstructive pulmonary disease, unspecified COPD type J44.9 [facility] [id number] [place] [address] 97208- 9992 Aug, Flank pain R10.9 [facility] [id number] [place] [address] 11220- 0297 Jul, Flank pain R10.9 and Vitamin B 12 deficiency E53.8 [facility] [id number] [place] [address] 76569- 8769 Jul, [facility] [address] 32666- 1001 Jun, Gastroenteritis K52.9 [facility] [address] 21039- 6576 May, Gastroenteritis K52.9 and Vitamin B 12 deficiency E53.8 [facility] [address] 66866- 3696 Apr, Allergic conjunctivitis of left eye H10.12 and Chronic fatigue R53.82 [address] 65033- 1297 Apr, Chronic sinusitis, unspecified J32.9 [facility] [address] 15702- 9581 Apr, [facility] [address] 68589- 0385 Feb, [facility] [address] 18573- 5521 January, [facility] [address] 75591- 7542 Dec, [facility] [id number] [place] [address] 34373- 8410 Oct, [facility] [id number] [place] [address] 20758- 4738 Sep, Oral phase dysphagia R13.11 and Vitamin B 12 deficiency E53.8 [facility] [address] 99491- 3520 Sep, [facility] [id number] [place] [address] 29620- 2879 Jul, [facility] [address] 28858- 8506 Jul, [facility] [id number] [place] [address] 19271- 8101 Jun, Bronchitis J40 ; Generalized anxiety disorder F41.1 and Chronic obstructive pulmonary disease, unspecified COPD type J44.9 [facility] [id number] [place] [address] 02412- 5002 Jun, [facility] [address] 46150- 3091 Jun, [facility] [id number] [place] [address] 59898- 3836 Jun, [facility] [address] 69450- 9956 May, Vitamin B 12 deficiency E53.8 ; Essential (primary) hypertension I10 ; Generalized anxiety disorder F41.1 ; Pain in joint, ankle and foot 719.47 ; Arthritis M19.90 ; Chronic obstructive pulmonary disease, unspecified COPD type J44.9 and Encounter for immunization Z23 [facility] [id number] [place] [address] 01330- 7994 Apr, [facility] [id number] [place] [address] 55432- 5822 Apr, [facility] [id number] [place] [address] 13759- 9272 Mar, [facility] [id number] [place] [address] 11486- 3365 January, [facility] [id number] [place] [address] 84807- 3008 Dec, [facility] [id number] [place] [address] 06072- 0210 Oct, [facility] [id number] [place] [address] 92372- 3155 Oct, [facility] [address] 61456- 5137 Oct, Hypertension, benign I10 and Vitamin B 12 deficiency E53.8 [address] [id number] [place] [address] 72303- 3867 Oct, [address] [id number] [place] [address] 43784- 1841 Oct, [id number] [place] [address] 70664- 5762 Oct, Irritable bowel syndrome with diarrhea K58.0 [place] [id number] [place] [address] 19715- 4573 Oct, [id number] [place] [address] 18777- 2349 Oct, Vitamin B 12 deficiency E53.8 ; Hypertension, benign I10 and Chronic obstructive pulmonary disease, unspecified COPD type J44.9 [address] [id number] [place] [address] 57305- 3496 Sep, Irritable bowel syndrome with diarrhea K58.0 ; Hypertension , benign I10 ; Chronic obstructive pulmonary disease, unspecified COPD type J44.9 ; Edema, unspecified type R60.9 ; Vision changes H53.9 and Vitamin B 12 deficiency E53.8 [place] [id number] [place] [address] 63535- 0062 Sep, [address] [id number] [place] [address] 59395- 0502 Jul, Degenerative disc disease 722.6 [place] [id number] [place] [address] 27402- 1078 Jun, Pain in right leg M79.604 ; Encounter for immunization Z23 and Pain of left leg M79.605 [place] [id number] [place] [address] 12290- 3819 Jun, [address] [address] 79166- 4026 Jun, [facility] [address] [place] [address] 67030- 9432 Jun, Degenerative disc disease 722.6 [facility] [id number] [place] [address] 51545- 7341 Jun, [facility] [id number] [place] [address] 84898- 0225 28 May, 2015 Seizures 780.39 and Autonomic peripheral neuropathy 337.9 [facility] [id number] [place] [address] 48215- 9798 18 May, 2015 [facility] [id number] [place] [address] 93287- 7985 17 May, 2015 [facility] [id number] [place] [address] 58261- 0006 08 May, 2015 Degenerative disc disease 722.6 [facility] [id number] [place] [address] 64173- 8615 May, [facility] [id number] [place] [address] 50186- 2458 Mar, [facility] [id number] [place] [address] 30199- 4995 Mar, Degenerative disc disease 722.6 ; Spinal stenosis 724.00 and HTN (hypertension) 401.9 [facility] [id number] [place] [address] 13797- 3263 Feb, Cutaneous horn 702.8 [facility] [id number] [place] [address] 78112- 0787 Feb, Fatigue 780.79 [facility] [id number] [place] [address] 62605- 5987 Feb, Fatigue 780.79 ; Arthritis 716.90 ; Spinal stenosis 724.00 ; Sinusitis 473.9 and Cutaneous horn 702.8 [facility] [id number] [place] [address] 77121- 2856 January, [facility] [place] [facility] [address] [id number] [place] [address]- 7431 Dec, [facility] [place] [facility] [address] [id number] [place] [address]- 0323 Dec, [facility] [place] [facility] [address] [facility] [id number] [place] [address]- 4354 Nov, [facility] [place] [facility] [address] [id number] [place] [address]- 2691 Nov, [facility] [place] [facility] [address] [id number] [place] [address]- 3439 Oct, [facility] [place] [facility] [address] [id number] [place] [address]- 7282 Oct, [facility] [place] [facility] [address] [facility] [id number] [place] [address]- 5859 Oct, [facility] [place] [facility] [address] [facility] [id number] [place] [address]- 0297 Oct, [facility] [place] [facility] [address] [facility] [id number] [place] [address]- 2163 Oct, [facility] [place] [facility] [address] [facility] [id number] [place] [address]- 6171 Oct, [facility] [place] [facility] [address] [facility] [id number] [place] [address]- 6402 Sep, [facility] [place] [facility] [address] [id number] [address]- 2503 Sep, [facility] [place] [facility] [address] [id number] [address]- 1426 Sep, [facility] [place] [facility] [address] [facility] [id number], [place] [address]- 1870 Sep, [facility] [place] [facility] [address] [facility] [id number] [address]- 0965 Sep, [facility] [place] [facility] [address] [id number] [place] [address]- 8554 Sep, [facility] [place] [facility] [address] [id number] [place] [address]- 6902 Sep, [facility] [place] [facility] [address] [id number] [place] [address]- 0235 Sep, [facility] [place] [facility] [address] [id number] [place] [address]- 6259 Sep, [facility] [place] [facility] [address] [id number] [place] [address]- 2669 Sep, [facility] [place] [facility] [address] [id number] [place] [address]- 2501 Sep, [facility] [place] [facility] [address] [id number] [place] [address]- 6099 Sep, [facility] [place] [facility] [address] [id number] [place] [address]- 5304 Sep, [facility] [place] [facility] [address] [id number] [place] [address]- 8989 Sep, [facility] [place] [facility] [address] [id number] [place] [address]- 1118 Aug, [facility] [place] [facility] [address] [id number] [place] [address]- 6395 Aug, [facility] [place] [facility] [address] [id number] [place] [address]- 7854 Aug, [facility] [place] [facility] [address] [id number] [place] [address]- 6175 Aug, [facility] [place] [facility] [address] [id number] [place] [address]- 9418 Jul, [facility] [place] [facility] [address] [id number] [place] [address]- 1201 Jul, [facility] [place] [facility] [address] [id number] [place] [address]- 8919 May, [facility] [place] [facility] [address] [id number] [place] [address]- 9679 May, [facility] [place] [facility] [address] [id number] [place] [address]- 2621 May, [facility] [place] [facility] [address] [id number] [place] [address]- 5785 May, [facility] [place] [facility] [address] [id number] [place] [address]- 9727 May, [facility] [place] [facility] [address] [id number] [place] [address]- 7345 May, [facility] [place] [facility] [address] [id number] [place] [address]- 2494 Apr, [facility] [place] [facility] [address] [id number] [place] [address]- 8875 Apr, [facility] [place] [facility] [address] [id number] [place] [address]- 8282 Mar, [facility] [place] [facility] [address] [id number] [place] [address]- 7106 Mar, [facility] [place] [facility] [address] [id number] [place] [address]- 3314 Mar, [facility] [place] [facility] [address] [id number] [place] [address]- 3062 Mar, [facility] [place] [facility] [address] [id number] [address]- 7897 Mar, [facility] [place] [facility] [address] [id number] [place] [address]- 5535 Mar, [facility] [place] [facility] [address] [id number] [place] [address]- 6581 Mar, [facility] [place] [facility] [address] [id number] [place] [address]- 4957 Mar, [facility] [place] [facility] [address] [id number] [place] [address]- 4045 Feb, [facility] [address] [id number] [place] [address]- 5307 Feb, [facility] [place] [facility] [address] [id number] [place] [address]- 2352 January, [facility] [place] [facility] [address] [id number] [place] 9981 January, [facility] [place] [facility] [address] [id number] [place] [address]- 5603 January, [facility] [place] [facility] [address] [id number] [place] [address]- 4103 January, [facility] [place] [facility] [address] [id number] [place] [address]- 3032 Dec, [facility] [place] [facility] [address] [id number] [place] [address]- 9564 Dec, [facility] [place] [facility] [address] [id number] [place] [address]- 7452 Oct, [facility] [place] [facility] [address] [id number] [place] [address]- 8930 Oct, [facility] [place] [facility] [address] [id number] [place] [address]- 3594 Oct, [facility] [place] [facility] [address] [id number] [place] [address]- 7929 Oct, [facility] [place] [facility] [address] [id number] [place] [address]- 1783 Sep, [facility] [place] [facility] [address] [id number] [place] 4027 Sep, [facility] [place] [facility] [address] [id number] [place] [address]- 1031 Aug, [facility] [place] [facility] [address] [id number] [place] 5772 Aug, [facility] [place] [facility] [address] [id number] [place] [address]- 5065 Aug, [facility] [place] [facility] [address] [id number] [place] [address]- 9230 Aug, [facility] [place] [facility] [address] [id number] [place] 5798 Aug, [facility] [place] [facility] [address] [id number] [place] [address]- 2639 Aug, [facility] [place] [facility] [address] [id number] [place] [address]- 5748 Aug, [facility] [place] [facility] [address] [id number] [place] [address]- 1781 Aug, [facility] [place] [facility] [address] [id number] [place] 7317 Aug, [facility] [place] [facility] [address] [id number] [place] [address]- 1093 Aug, [facility] [place] [facility] [address] [id number] [place] [address]- 4802 Jul, [facility] [place] [facility] [address] [id number] [place] [address]- 4295 Jul, [facility] [place] [facility] [address] [id number], [place] [address]- 0984 Jun, [facility] [place] [facility] [address] [id number], [place] [address]- 3756 Jun, [facility] [place] [facility] [address] [id number] [place] [address]- 4071 Jun, [facility] [place] [facility] [address] [id number] [place] [address]- 2506 Jun, [facility] [place] [facility] [address] [id number] [place] [address]- 3273 Jun, [facility] [place] [facility] [address] [id number] [place] [address]- 6605 13 May, 2012 [facility] [address] [id number] [place] [address]- 8482 13 May, 2012 [facility] [place] [facility] [address] [id number] [place] [address]- 4307 12 May, 2013 [facility] [address] [id number] [place] [address]- 1289 06 May, 2012 [facility] [place] [facility] [address] [id number] [place] [address] 03 May, 2013 [facility] [address] [id number] [place] [address] Apr, [facility] [place] [facility] [address] [id number] [place] [address] Mar, [facility] [address] [id number] [place] [address] Mar, [facility] [address] [id number] [place] [address] Mar, [facility] [address] [id number] [place] [address] Mar, [facility] [address] [id number] [place] [address] Mar, [facility] [address] [id number] [place] [address] Mar, [facility] [place] [facility] [address] [id number] [place] [address] Mar, [facility] [place] [facility] [address] [id number] [place] [address] Mar, [facility] [place] [facility] [address] [id number] [place] [address] Mar, [facility] [place] [facility] [address] [id number] [place] [address] Feb, [facility] [place] [facility] [address] [id number] [place] [address] 17 Feb, 2013 [facility] [address] [id number] [place] [address] Feb, [facility] [address] [id number] [place] [address] January, [facility] [address] [id number] [place] [address] January, [facility] [address] [id number] [place] [address] January, [facility] [address] [id number] [place] [address] January, [facility] [address] [id number] [place] [address] Dec, [facility] [address] [id number] [place] [address] Dec, [facility] [address] [id number] [place] [address] Dec, [facility] [address] [id number] [place] [address] Dec, [facility] [address] [id number] [place] [address] Dec, [facility] [address] [id number] [place] [address] Dec, [facility] [address] [id number] [place] [address] Nov, [facility] [place] [facility] [address] [id number] [place] [address] Oct, [facility] [place] [facility] [address] [id number] [place] [address] Aug, [facility] [address] [id number] [place] [address] 1987 Aug, [facility] [place] [facility] [address] [id number] [place] [address] 17 Aug, 2012 [facility] [place] [facility] [address] [id number] [place] [address] Aug, [facility] [place] [facility] [address] [facility] [id number] [place] [address] Aug, [facility] [place] [facility] [address] [id number] [place] [address] Aug, [facility] [place] [facility] [address] [id number] [place] [address] Aug, [facility] [place] [facility] [address] [id number] [place] [address] Aug, [facility] [place] [facility] [address] [id number] [place] [address] Aug, [facility] [place] [facility] [address] [id number] [place] [address] Aug, [facility] [place] [facility] [address] [address] [id number] [place] [address] Aug, [facility] [place] [facility] [address] [id number] [place] [address] Jul, [facility] [place] [facility] [address] [id number], [place] [address] 30 Jul, 2012 [facility] [place] [facility] [address] [id number], [place] [address] Jul, [facility] [place] [facility] [address] [id number] [place] [address] Jul, [facility] [place] [facility] [address] [facility] [id number] [place] [address] Jul, [facility] [place] [facility] [address] [facility] [id number] [place] [address] Jul, [facility] [place] [facility] [address] [id number] [place] [address] Jun, [facility] [address] [id number] [place] [address] Jun, [facility] [place] [facility] [address] [id number] [place] [address] May, [facility] [address] [id number] [place] [address] Apr, [facility] [place] [facility] [address] [id number] [place] [address] Apr, [facility] [address] [id number] [place] [address] Apr, [facility] [address] [id number] [place] [address] Apr, [facility] [address] [id number] [place] [address] Apr, [facility] [address] [id number] [place] [address] Mar, [facility] [place] [facility] [address] [id number] [place] [address] Mar, [facility] [address] [id number] [place] [address] January, [facility] [place] [facility] [address] [id number] [place] [address] January, [facility] [address] [id number] [place] [address] Nov, [facility] [place] [facility] [address] [id number] [place] [address] Oct, [facility] [place] [facility] [address] [id number] [place] [address] Sep, [facility] [place] [facility] [address] [id number] [place] [address] Sep, [facility] [address] [id number] [place] [address] Sep, [facility] [place] [facility] [address] [id number] [place] [address] Sep, [facility] [place] [facility] [address] [id number] [place] [address] Sep, [facility] [place] [facility] [address] [id number] [place] [address] Sep, [facility] [place] [facility] [address] [id number] [place] [address] Aug, [facility] [place] [facility] [address] [id number] [place] [address] Aug, [facility] [place] [facility] [address] [id number] [place] [address] Aug, [facility] [place] [facility] [address] [id number] [place] [address] Aug, [facility] [place] [facility] [address] [id number] [place] [address] Aug, [facility] [place] [facility] [address] [id number], [place] [address] Jul, [facility] [place] [facility] [address] [id number], [place] [address] Jul, [facility] [place] [facility] [address] [id number], [place] [address] Jul, [facility] [place] [facility] [address] [id number] [place] [address] Jun, [facility] [place] [facility] [address] [id number] [place] [address] Jun, [facility] [place] [facility] [address] [id number], [place] [address] Jun, [facility] [place] [facility] [address] [id number], [place] [address] January, [facility] [address] [id number], [place] [address] Dec, [facility] [id number], [place] [address] Oct, [facility] [address] [id number], [place] [address] Oct, [facility] [id number], [place] [address] Jun, [facility] [id number], [place] [address] Aug, [facility] [id number], [place] [address] Aug, [facility] [id number], [place] [address] Jul, [facility] [address] [id number], [place] [address] Mar, IMMUNIZATIONS No Known Immunizations SOCIAL HISTORY [...] Chronic Obstructive pulmonary disease diagnosed 2008 in [place]-PFT not done previously Medical History Gastrointestinal disorder [...]
--- OUTSIDE RECORDS SUMMARY | 2018-08-21 15:40 | XMS REPORT ---
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 I25.10 Active [id number] Problem Agoraphobia with panic attacks F40.01 Active 197660632 Problem COPD with exacerbation J44.1 Active 661562140 Problem Pericardial effusion I31.3 Active 784470803 Problem Pleural effusion on left J90 Active 17121912 Problem Generalized anxiety disorder F41.1 Active 46552081 Problem Chronic obstructive pulmonary disease, unspecified COPD type J44.9 Active 75870688 Problem Hypertension, benign I10 Active 36172789 Problem Oral phase dysphagia R13.11 Active 527009345 Problem Vitamin B 12 deficiency E53.8 Active 34743287 Problem Chronic fatigue R53.82 Active [id number] ALLERGIES No Information ENCOUNTERS Encounter Location Date Diagnosis [facility] [id number] [address] Mar, Flank pain R10.9 [facility] [id number] [place] [address] 29524- 1722 Mar, [id number] [place] [address] 62523- 7240 Feb, Coronary artery disease involving teller coronary artery of teller heart without angina pectoris I25.10 ; Vitamin B 12 deficiency E53.8 ; Slow transit constipation K59.01 ; Generalized anxiety disorder F41.1 and Breast cancer screening by mammogram Z12.31 [facility] [address] [address] Feb, Flank pain R10.9 [facility] [address] [address] January, [facility] [id number] [place] [address] 63741- 5953 January, Chronic obstructive pulmonary disease, unspecified COPD type J44.9 ; Pleural effusion on left J90 ; Pericardial effusion I31.3 and Generalized anxiety disorder F41.1 [facility] [id number] [place] [address] 94559- 4014 January, Gastroenteritis K52.9 [facility] [address] [address] January, Flank pain R10.9 [facility] [address] [address] January, [address] [id number] [place] [address] Dec [facility] [address] [address] 49[address] Dec, [facility] [address] [address] 2616 Dec, [facility] [address] [address] 3254 Dec, [facility] [address] [address] 8077 Dec, [facility] [id number] [address] 7656 Dec, Flank pain R10.9 [facility] [address] [address] 9317 Dec, [facility] [id number] [place] [address] 59171- 4763 Nov, [facility] [id number] [place] [address] 46444- 3890 Nov, [facility] [id number] [place] [address] 36769- 8345 Nov, [facility] [id number] [place] [address] 50751- 3617 14 Nov, 2017 Pericardial effusion I31.3 ; Agoraphobia with panic attacks F40.01 and Vitamin B 12 deficiency E53.8 [facility] [id number] [place] [address] 72511- 7154 Nov, [facility] [id number] [place] [address] 93820- 6306 Nov, Pneumonia of both lungs due to infectious organism, unspecified part of lung J18.9 and Flank pain R10.9 [facility] [id number] [place] [address] 21911- 2279 Nov, Pneumonia of both lungs due to infectious organism, unspecified part of lung J18.9 and Gastroenteritis K52.9 [facility] [id number] [place] [address] 65820- 5642 Oct, Pneumonia of both lungs due to infectious organism, unspecified part of lung J18.9 and Vitamin B 12 deficiency E53.8 [facility] [id number] [place] [address] [id number] 16 Oct, 2017 [facility] [id number] [place] [address] 30470- 3855 Oct, [facility] [id number] [place] [address] 31766- 1167 Oct, [facility] [id number] [place] [address] 78108- 3608 Oct, Flank pain R10.9 [facility] [id number] [place] [address] 81735- 5410 Oct, Other chronic pain G89.29 and Unspecified abdominal pain R10.9 [facility] [address] 92344- 4459 Sep, Flank pain R10.9 [facility] [id number] [place] [address] 54922- 6920 Sep, [facility] [address] 71553- 4189 Sep, [facility] [id number] [place] [address] 49903- 5006 Sep, Acute non-recurrent maxillary sinusitis J01.00 [facility] [id number] [place] [address] 15639- 4714 Sep, Acute non-recurrent maxillary sinusitis J01.00 and Vitamin B 12 deficiency E53.8 [facility] [address] 14358- 9627 Sep, [facility] [id number] [place] [address] 74645- 9745 Sep, [facility] [id number] [place] [address] 24567- 9373 Sep, [facility] [id number] [place] [address] 77989- 7418 Sep, COPD with exacerbation J44.1 [facility] [address] 73431- 6834 Sep, Chronic obstructive pulmonary disease, unspecified COPD type J44.9 [facility] [id number] [place] [address] 34977- 9430 Aug, Flank pain R10.9 [facility] [id number] [place] [address] 42894- 5702 Jul, Flank pain R10.9 and Vitamin B 12 deficiency E53.8 [facility] [id number] [place] [address] 82032- 3786 Jul, [facility] [address] 60423- 1679 Jun, Gastroenteritis K52.9 [facility] [address] 25758- 3130 May, Gastroenteritis K52.9 and Vitamin B 12 deficiency E53.8 [facility] [address] 16911- 0241 Apr, Allergic conjunctivitis of left eye H10.12 and Chronic fatigue R53.82 [address] 30269- 4836 Apr, Chronic sinusitis, unspecified J32.9 [facility] [address] 78807- 1267 Apr, [facility] [address] 42190- 3764 Feb, [facility] [address] 36902- 4685 January, [facility] [address] 62926- 0247 Dec, [facility] [id number] [place] [address] 41930- 0953 Oct, [facility] [id number] [place] [address] 28465- 8260 Sep, Oral phase dysphagia R13.11 and Vitamin B 12 deficiency E53.8 [facility] [address] 92173- 2848 Sep, [facility] [id number] [place] [address] 20155- 3579 Jul, [facility] [address] 30836- 6426 Jul, [facility] [id number] [place] [address] 93586- 1688 Jun, Bronchitis J40 ; Generalized anxiety disorder F41.1 and Chronic obstructive pulmonary disease, unspecified COPD type J44.9 [facility] [id number] [place] [address] 93293- 4447 Jun, [facility] [address] 93396- 1744 Jun, [facility] [id number] [place] [address] 04593- 6543 Jun, [facility] [address] 84233- 9892 May, Vitamin B 12 deficiency E53.8 ; Essential (primary) hypertension I10 ; Generalized anxiety disorder F41.1 ; Pain in joint, ankle and foot 719.47 ; Arthritis M19.90 ; Chronic obstructive pulmonary disease, unspecified COPD type J44.9 and Encounter for immunization Z23 [facility] [id number] [place] [address] 03023- 9290 Apr, [facility] [id number] [place] [address] 49037- 1897 Apr, [facility] [id number] [place] [address] 44102- 1694 Mar, [facility] [id number] [place] [address] 20816- 7070 January, [facility] [id number] [place] [address] 30469- 9662 Dec, [facility] [id number] [place] [address] 33885- 2432 Oct, [facility] [id number] [place] [address] 79569- 6673 Oct, [facility] [address] 06383- 1851 Oct, Hypertension, benign I10 and Vitamin B 12 deficiency E53.8 [place] [id number] [place] [address] 65997- 8005 Oct, [place] [id number] [place] [address] 85294- 2521 Oct, [address] [id number] [place] [address] 37944- 3638 Oct, Irritable bowel syndrome with diarrhea K58.0 [place] [id number] [place] [address] 41936- 1308 Oct, [place] [id number] [place] [address] 19968- 0291 Oct, Vitamin B 12 deficiency E53.8 ; Hypertension, benign I10 and Chronic obstructive pulmonary disease, unspecified COPD type J44.9 [place] [id number] [place] [address] 32440- 1743 Sep, Irritable bowel syndrome with diarrhea K58.0 ; Hypertension , benign I10 ; Chronic obstructive pulmonary disease, unspecified COPD type J44.9 ; Edema, unspecified type R60.9 ; Vision changes H53.9 and Vitamin B 12 deficiency E53.8 [place] [id number] [place] [address] 16475- 8889 Sep, [place] [id number] [place] [address] 91411- 2648 Jul, Degenerative disc disease 722.6 [place] [id number] [place] [address] 90675- 2110 Jun, Pain in right leg M79.604 ; Encounter for immunization Z23 and Pain of left leg M79.605 [place] [id number] [place] [address] 17441- 0696 Jun, [address] [address] 67280- 8985 Jun, [facility] [id number] [place] [address] 76950- 5522 Jun, Degenerative disc disease 722.6 [facility] [id number] [place] [address] 76391- 6018 Jun, [facility] [id number] [place] [address] 52784- 8863 28 May, 2015 Seizures 780.39 and Autonomic peripheral neuropathy 337.9 [facility] [id number] [place] [address] 83567- 4898 18 May, 2015 [facility] [id number] [place] [address] 65266- 6987 17 May, 2015 [facility] [id number] [place] [address] 23050- 3281 08 May, 2015 Degenerative disc disease 722.6 [facility] [id number] [place] [address] 63243- 0741 May, [facility] [id number] [place] [address] 99375- 1168 Mar, [facility] [id number] [place] [address] 47142- 0766 Mar, Degenerative disc disease 722.6 ; Spinal stenosis 724.00 and HTN (hypertension) 401.9 [facility] [id number] [place] [address] 25907- 9286 Feb, Cutaneous horn 702.8 [facility] [id number] [place] [address] 79090- 5395 Feb, Fatigue 780.79 [facility] [id number] [place] [address] 17625- 0909 Feb, Fatigue 780.79 ; Arthritis 716.90 ; Spinal stenosis 724.00 ; Sinusitis 473.9 and Cutaneous horn 702.8 [facility] [id number] [place] [address] 01162- 6986 January, [facility] [place] [facility] [address] [id number] [place] [address]- 1249 Dec, [facility] [place] [facility] [address] [id number] [place] [address]- 1052 Dec, [facility] [place] [facility] [address] [facility] [id number] [place] [address]- 5697 Nov, [facility] [place] [facility] [address] [id number] [place] [address]- 5390 Nov, [facility] [place] [facility] [address] [id number] [place] [address]- 1026 Oct, [facility] [place] [facility] [address] [id number] [place] [address]- 6344 Oct, [facility] [place] [facility] [address] [facility] [id number] [place] [address]- 6888 Oct, [facility] [place] [facility] [address] [facility] [id number] [place] [address]- 9265 Oct, [facility] [place] [facility] [address] [facility] [id number] [place] [address]- 3005 Oct, [facility] [place] [facility] [address] [facility] [id number] [place] [address]- 2463 Oct, [facility] [place] [facility] [address] [facility] [id number] [place] [address]- 5902 Sep, [facility] [place] [facility] [address] [id number] [address]- 5553 Sep, [facility] [place] [facility] [address] [id number] [place] [address]- 9890 Sep, [facility] [place] [facility] [address] [facility] [id number] [place] [address]- 5640 Sep, [facility] [place] [facility] [address] [facility] [id number] [address]- 6533 Sep, [facility] [place] [facility] [address] [id number] [place] [address]- 3532 Sep, [facility] [place] [facility] [address] [id number] [place] [address]- 3440 Sep, [facility] [place] [facility] [address] [id number] [place] [address]- 0046 Sep, [facility] [place] [facility] [address] [id number] [place] [address]- 2427 Sep, [facility] [place] [facility] [address] [id number] [place] [address]- 6843 Sep, [facility] [place] [facility] [address] [id number] [place] [address]- 8733 Sep, [facility] [place] [facility] [address] [id number] [place] [address]- 6456 Sep, [facility] [place] [facility] [address] [id number] [place] [address]- 3599 Sep, [facility] [place] [facility] [address] [id number] [place] [address]- 8210 Sep, [facility] [place] [facility] [address] [id number] [place] [address]- 8717 Aug, [facility] [place] [facility] [address] [id number] [place] [address]- 0448 Aug, [facility] [place] [facility] [address] [id number] [place] [address]- 1344 Aug, [facility] [place] [facility] [address] [id number] [place] [address]- 4270 Aug, [facility] [place] [facility] [address] [id number] [place] [address]- 1298 Jul, [facility] [place] [facility] [address] [id number] [place] [address]- 4809 Jul, [facility] [place] [facility] [address] [id number] [place] [address]- 7137 May, [facility] [place] [facility] [address] [id number] [place] [address]- 6569 May, [facility] [place] [facility] [address] [id number] [place] [address]- 4248 May, [facility] [place] [facility] [address] [id number] [place] [address]- 2849 May, [facility] [place] [facility] [address] [id number] [place] [address]- 4370 May, [facility] [place] [facility] [address] [id number] [place] [address]- 8557 May, [facility] [place] [facility] [address] [id number] [place] [address]- 8512 Apr, [facility] [place] [facility] [address] [id number] [place] [address]- 5460 Apr, [facility] [place] [facility] [address] [id number] [place] [address]- 4176 Mar, [facility] [place] [facility] [address] [id number] [place] [address]- 5541 Mar, [facility] [place] [facility] [address] [id number] [place] [address]- 4687 Mar, [facility] [place] [facility] [address] [id number] [place] [address]- 9417 Mar, [facility] [place] [facility] [address] [id number] [place] [address]- 7537 Mar, [facility] [place] [facility] [address] [id number] [place] [address]- 0252 Mar, [facility] [place] [facility] [address] [id number] [place] [address]- 9728 Mar, [facility] [place] [facility] [address] [id number] [place] [address]- 4275 Mar, [facility] [place] [facility] [address] [id number] [place] [address]- 3120 Feb, [facility] [address] [id number] [place] [address]- 1884 Feb, [facility] [place] [facility] [address] [id number] [place] [address]- 0645 January, [facility] [place] [facility] [address] [id number] [place] 1230 January, [facility] [place] [facility] [address] [id number] [place] [address]- 1486 January, [facility] [place] [facility] [address] [id number] [place] [address]- 5690 January, [facility] [place] [facility] [address] [id number] [place] [address]- 2434 Dec, [facility] [place] [facility] [address] [id number] [place] [address]- 1803 Dec, [facility] [place] [facility] [address] [id number] [place] [address]- 6368 Oct, [facility] [place] [facility] [address] [id number] [place] [address]- 5807 Oct, [facility] [place] [facility] [address] [id number] [place] [address]- 9867 Oct, [facility] [place] [facility] [address] [id number] [place] [address]- 7528 Oct, [facility] [place] [facility] [address] [id number] [place] [address]- 7358 Sep, [facility] [place] [facility] [address] [id number] [place] 5902 Sep, [facility] [place] [facility] [address] [id number] [place] [address]- 7674 Aug, [facility] [place] [facility] [address] [id number] [place] 6448 Aug, [facility] [place] [facility] [address] [id number] [place] [address]- 6341 Aug, [facility] [place] [facility] [address] [id number] [place] [address]- 4151 Aug, [facility] [place] [facility] [address] [id number] [place] 3298 Aug, [facility] [place] [facility] [address] [id number] [place] [address]- 6496 Aug, [facility] [place] [facility] [address] [id number] [place] [address]- 8242 Aug, [facility] [place] [facility] [address] [id number] [place] [address]- 0400 Aug, [facility] [place] [facility] [address] [id number] [place] 0731 Aug, [facility] [place] [facility] [address] [id number] [place] [address]- 7974 Aug, [facility] [place] [facility] [address] [id number] [place] [address]- 8065 Jul, [facility] [place] [facility] [address] [id number] [place] [address]- 4778 Jul, [facility] [place] [facility] [address] [id number] [address]- 9232 Jun, [facility] [place] [facility] [address] [id number] [place] [address]- 6688 Jun, [facility] [place] [facility] [address] [id number] [place] [address]- 5858 Jun, [facility] [place] [facility] [address] [id number] [place] [address]- 5516 Jun, [facility] [place] [facility] [address] [id number] [place] [address]- 2084 Jun, [facility] [place] [facility] [address] [id number] [place] [address]- 4805 13 May, 2012 [facility] [address] [id number] [place] [address]- 3159 13 May, 2012 [facility] [place] [facility] [address] [id number] [place] [address]- 2021 12 May, 2013 [facility] [address] [id number] [place] [address]- 8506 06 May, 2012 [facility] [place] [facility] [address] [id number] [place] [address]- 6582 03 May, 2013 [facility] [address] [id number] [place] [address]- 9065 Apr, [facility] [place] [facility] [address] [id number] [place] [address]- 5578 Mar, [facility] [address] [id number] [place] [address]- 8578 Mar, [facility] [address] [id number] [place] [address]- 0294 Mar, [facility] [address] [id number] [place] [address]- 3984 Mar, [facility] [address] [id number] [place] [address]- 5393 Mar, [facility] [address] [id number] [place] [address]- 6785 Mar, [facility] [place] [facility] [address] [id number] [place] [address]- 1724 Mar, [facility] [place] [facility] [address] [id number] [place] [address]- 8483 Mar, [facility] [place] [facility] [address] [id number] [place] [address] Mar, [facility] [place] [facility] [address] [id number] [place] [address] Feb, [facility] [place] [facility] [address] [id number] [place] [address] 17 Feb, 2013 [facility] [address] [id number] [place] [address] Feb, [facility] [address] [id number] [place] [address] January, [facility] [address] [id number] [place] [address] January, [facility] [address] [id number] [place] [address] January, [facility] [address] [id number] [place] [address] January, [facility] [address] [id number] [place] [address] Dec, [facility] [address] [id number] [place] [address] Dec, [facility] [address] [id number] [place] [address] Dec, [facility] [address] [id number] [place] [address] Dec, [facility] [address] [id number] [place] [address] Dec, [facility] [address] [id number] [place] [address] Dec, [facility] [address] [id number] [place] [address] Nov, [facility] [place] [facility] [address] [id number] [place] [address] Oct, [facility] [place] [facility] [address] [id number] [place] [address] Aug, [facility] [address] [id number] [place] [address] Aug, [facility] [place] [facility] [address] [id number] [place] 17 Aug, 2012 [facility] [place] [facility] [address] [id number] [place] [address] Aug, [facility] [place] [facility] [address] [facility] [id number] [place] [address] Aug, [facility] [place] [facility] [address] [id number] [place] [address] Aug, [facility] [place] [facility] [address] [id number] [place] [address] Aug, [facility] [place] [facility] [address] [id number] [place] [address] [address] Aug, [facility] [place] [facility] [address] [id number] [place] [address] Aug, [facility] [place] [facility] [address] [id number] [place] [address] Aug, [facility] [place] [facility] [address] [id number] [place] [address] Aug, [facility] [place] [facility] [address] [id number] [place] [address] Jul, [facility] [place] [facility] [address] [id number] [address] 30 Jul, 2012 [facility] [place] [facility] [address] [id number] [place] [address] Jul, [facility] [place] [facility] [address] [id number] [place] [address] Jul, [facility] [place] [facility] [address] [facility] [id number] [place] [address] Jul, [facility] [place] [facility] [address] [facility] [id number] [place] [address] Jul, [facility] [place] [facility] [address] [id number] [place] [address] Jun, [facility] [address] [id number] [place] [address] Jun, [facility] [place] [facility] [address] [id number] [place] [address] May, [facility] [address] [id number] [place] [address] Apr, [facility] [place] [facility] [address] [id number] [place] [address] Apr, [facility] [address] [id number] [place] [address] Apr, [facility] [address] [id number] [place] [address] Apr, [facility] [address] [id number] [place] [address] Apr, [facility] [address] [id number] [place] [address] Mar, [facility] [place] [facility] [address] [id number] [place] [address] Mar, [facility] [address] [id number] [place] [address] January, [facility] [place] [facility] [address] [id number] [place] [address] January, [facility] [address] [id number] [place] [address] Nov, [facility] [place] [facility] [address] [id number] [place] [address] Oct, [facility] [place] [facility] [address] [id number] [place] [address] Sep, [facility] [place] [facility] [address] [id number] [place] [address] Sep, [facility] [address] [id number] [place] [address] Sep, [facility] [place] [facility] [address] [id number] [place] [address] Sep, [facility] [place] [facility] [address] [id number] [place] [address] Sep, [facility] [place] [facility] [address] [id number] [place] [address] Sep, [facility] [place] [facility] [address] [id number] [place] [address] Aug, [facility] [place] [facility] [address] [id number] [place] [address] Aug, [facility] [place] [facility] [address] [id number] [place] [address] Aug, [facility] [place] [facility] [address] [id number] [place] [address] Aug, [facility] [place] [facility] [address] [id number] [place] [address] Aug, [facility] [place] [facility] [address] [id number] [place] [address] Jul, [facility] [place] [facility] [address] [id number] [place] [address] Jul, [facility] [place] [facility] [address] [id number] [place] [address] Jul, [facility] [place] [facility] [address] [id number] [place] [address] Jun, [facility] [place] [facility] [address] [id number] [place] [address] Jun, [facility] [place] [facility] [address] [id number] [place] [address] Jun, [facility] [place] [facility] [address] [id number] [place] [address] January, [facility] [address] [id number] [place] [address] Dec, [facility] [address] [id number] [place] [address] Oct, [facility] [address] [id number] [place] [address] Oct, [facility] [id number] [address] Jun, [facility] [id number] [place] [address] Aug, [facility] [id number] [address] Aug, [facility] [id number] [address] Jul, [facility] [address] [id number] [place] [address] Mar, IMMUNIZATIONS No Known Immunizations SOCIAL HISTORY Never Assessed REASON FOR VISIT MTM (Medication Therapy Management) PLAN OF CARE VITAL SIGNS MEDICATIONS Unknown Medications RESULTS No Results PROCEDURES No Known procedures INSTRUCTIONS MEDICATIONS ADMINISTERED No Known Medications MEDICAL (GENERAL) HISTORY Type Description Date Medical History Hypertension Medical History Chronic Obstructive pulmonary disease diagnosed 2008 in [place]-PFT not done previously Medical History Gastrointestinal disorder [...] 09/2017 Hospitalization History severe sepsis, pleural effusion-[facility] 2/14/18
--- OUTSIDE RECORDS SUMMARY | 2018-08-21 15:40 | XMS REPORT ---
Author Author KAITLIN TURNER Organization [facility] [place] Address [address] [place] [address] Care Team Providers Care Psychiatry Teacher Name Role Phone KAITLIN TURNER Unavailable PROBLEMS Type Condition ICD9-CM Code WZG00-CT Code Onset Dates Condition Status SNOMED Code Problem Chronic sinusitis, unspecified J32.9 Active 66760334 Problem Other chronic pain G89.29 Active 26226078 Problem Gastroesophageal reflux disease without esophagitis K21.9 Active 424760525 Problem Slow transit constipation K59.01 Active 32229315 Problem Coronary artery disease involving [place] coronary artery of [place] heart without angina pectoris I25.10 Active 2922994033615 Problem Agoraphobia with panic attacks F40.01 Active 503421781 Problem COPD with exacerbation J44.1 Active 392235187 Problem Pericardial effusion I31.3 Active 812113372 Problem Pleural effusion on left J90 Active 30591987 Problem Generalized anxiety disorder F41.1 Active 42842124 Problem Chronic obstructive pulmonary disease, unspecified COPD type J44.9 Active 95021964 Problem Hypertension, benign I10 Active 32086376 Problem Oral phase dysphagia R13.11 Active 049868719 Problem Vitamin B 12 deficiency E53.8 Active 72813878 Problem Chronic fatigue R53.82 Active 09440288 ALLERGIES No Information ENCOUNTERS Encounter Location Date Diagnosis [facility] [place] [id number] [address] Mar, Flank pain R10.9 [facility] [place] [id number] [address] Mar, [facility] [place] [id number] [address] 0258 Feb, Coronary artery disease involving [place] coronary artery of [place] heart without angina pectoris I25.10 ; Vitamin B 12 deficiency E53.8 ; Slow transit constipation K59.01 ; Generalized anxiety disorder F41.1 and Breast cancer screening by mammogram Z12.31 [facility] [place] [address], [place] [address] Feb, Flank pain R10.9 [facility] [place] [address], [place] [address] January, [facility] [place] [address], [place] [address] January, Chronic obstructive pulmonary disease, unspecified COPD type J44.9 ; Pleural effusion on left J90 ; Pericardial effusion I31.3 and Generalized anxiety disorder F41.1 [facility] [place] [address], [place] [address] January, Gastroenteritis K52.9 [facility] [place] [address], [place] [address] 7679 January, Flank pain R10.9 [facility] [place] [address], [place] [address] January, [address] [id number] [place] [address] Dec [facility] [place] [address], [place] [address] 9[address] Dec, [facility] [place] [id number], [place] [address] 4933 Dec, [facility] [place] [id number], [place] [address] 3436 Dec, [facility] [place] [address] [facility] [id number] [address] Dec, [facility] [place] [address], [place] [address] 5499 Dec, Flank pain R10.9 [facility] [place] [id number], [place] [address] 45[address] Dec, [facility] [place] [id number] [place] [address] 18502- 9756 Nov, [facility] [place] [id number] [place] [address] 25774- 5460 Nov, [facility] [place] [id number] [place] [address] 58603- 1504 Nov, [facility] [place] [id number] [place] [address] 84581- 4500 14 Nov, 2017 Pericardial effusion I31.3 ; Agoraphobia with panic attacks F40.01 and Vitamin B 12 deficiency E53.8 [facility] [place] [id number] [place] [address] 81945- 0798 Nov, [facility] [place] [id number] [place] [address] 23885- 8393 Nov, Pneumonia of both lungs due to infectious organism, unspecified part of lung J18.9 and Flank pain R10.9 [facility] [place] [id number] [place] [address] 03813- 6003 Nov, Pneumonia of both lungs due to infectious organism, unspecified part of lung J18.9 and Gastroenteritis K52.9 [facility] [place] [id number] [place] [address] 53956- 8513 Oct, Pneumonia of both lungs due to infectious organism, unspecified part of lung J18.9 and Vitamin B 12 deficiency E53.8 [facility] [id number] [place] [address] [id number] Oct, [facility] [place] [id number] [place] [address] 05026- 6012 Oct, [facility] [place] [id number] [place] [address] 30934- 9306 Oct, [facility] [place] [id number] [place] [address] 21885- 2603 Oct, Flank pain R10.9 [facility] [place] [id number] [place] [address] 33689- 4327 Oct, Other chronic pain G89.29 and Unspecified abdominal pain R10.9 [facility] [place] [address] [address]- 7281 Sep, Flank pain R10.9 [facility] [place] [id number] [place] [address] 06874- 5716 Sep, [facility] [place] [address] 04867- 1424 Sep, [facility] [place] [id number] [place] [address] 18162- 3533 Sep, Acute non-recurrent maxillary sinusitis J01.00 [facility] [place] [id number] [place] [address] 45805- 0786 Sep, Acute non-recurrent maxillary sinusitis J01.00 and Vitamin B 12 deficiency E53.8 [facility] [place] [id number] [place] [address] 12454- 2498 Sep, [facility] [place] [id number] [place] [address] 03255- 8732 Sep, [facility] [place] [id number] [place] [address] 95076- 3268 Sep, [facility] [place] [id number] [place] [address] 31431- 8446 Sep, COPD with exacerbation J44.1 [facility] [place] [id number] [place] [address] 93100- 6024 Sep, Chronic obstructive pulmonary disease, unspecified COPD type J44.9 [facility] [place] [id number] [place] [address] 58777- 9842 Aug, Flank pain R10.9 [facility] [place] [id number] [place] [address] 58664- 9077 Jul, Flank pain R10.9 and Vitamin B 12 deficiency E53.8 [facility] [place] [id number] [place] [address] 12827- 7117 Jul, [facility] [place] [address] 28129- 7160 Jun, Gastroenteritis K52.9 [facility] [place] [id number] [place] [address] 23111- 0839 May, Gastroenteritis K52.9 and Vitamin B 12 deficiency E53.8 [facility] [place] [address] 9[address]66- 8340 Apr, Allergic conjunctivitis of left eye H10.12 and Chronic fatigue R53.82 [place] [address] 08382- 9317 Apr, Chronic sinusitis, unspecified J32.9 [place] [address] 56224- 6189 Apr, [facility] [place] [id number] [place] [address] 01722- 5059 Feb, [facility] [place] [id number] [place] [address] 35383- 6210 January, [facility] [place] [id number] [place] [address] 00447- 9949 Dec, [facility] [place] [id number] [place] [address] 33686- 5754 Oct, [facility] [place] [id number] [place] [address] 23008- 6966 Sep, Oral phase dysphagia R13.11 and Vitamin B 12 deficiency E53.8 [facility] [place] [id number] [place] [address] 69477- 6346 Sep, [facility] [place] [id number] [place] [address] 90159- 1308 Jul, [facility] [place] [id number] [place] [address] 32301- 2821 Jul, [facility] [place] [id number] [place] [address] 13992- 2123 Jun, Bronchitis J40 ; Generalized anxiety disorder F41.1 and Chronic obstructive pulmonary disease, unspecified COPD type J44.9 [facility] [place] [id number] [place] [address] 33545- 4811 Jun, [facility] [place] [address] 37000- 3435 Jun, [facility] [place] [id number] [place] [address] 54840- 3277 Jun, [facility] [place] [address] 19235- 4181 May, Vitamin B 12 deficiency E53.8 ; Essential (primary) hypertension I10 ; Generalized anxiety disorder F41.1 ; Pain in joint, ankle and foot 719.47 ; Arthritis M19.90 ; Chronic obstructive pulmonary disease, unspecified COPD type J44.9 and Encounter for immunization Z23 [facility] [place] [id number] [place] [address] 90406- 9073 Apr, [facility] [place] [id number] [place] [address] 44862- 1986 Apr, [facility] [place] [id number] [place] [address] 33590- 9081 Mar, [facility] [place] [id number] [place] [address] 09955- 5277 January, [facility] [place] [id number] [place] [address] 96938- 0348 Dec, [facility] [place] [address] 62940- 4412 Oct, [facility] [place] [id number] [place] [address] 99663- 4027 Oct, [facility] [place] [address] 27471- 8954 Oct, Hypertension, benign I10 and Vitamin B 12 deficiency E53.8 [place] [id number] [place] [address] 15679- 4724 Oct, [place] [id number] [place] [address] 75107- 6474 Oct, [place] [address] 07290- 5881 Oct, Irritable bowel syndrome with diarrhea K58.0 [place] [id number] [place] [address] 99865- 3394 Oct, [place] [id number] [place] [address] 49284- 4880 Oct, Vitamin B 12 deficiency E53.8 ; Hypertension, benign I10 and Chronic obstructive pulmonary disease, unspecified COPD type J44.9 [place] [id number] [place] [address] 27252- 9751 Sep, Irritable bowel syndrome with diarrhea K58.0 ; Hypertension , benign I10 ; Chronic obstructive pulmonary disease, unspecified COPD type J44.9 ; Edema, unspecified type R60.9 ; Vision changes H53.9 and Vitamin B 12 deficiency E53.8 [place] [id number] [place] [address] 80258- 0861 Sep, [place] [id number] [place] [address] 24868- 8015 Jul, Degenerative disc disease 722.6 [place] [id number] [place] [address] 80791- 0529 Jun, Pain in right leg M79.604 ; Encounter for immunization Z23 and Pain of left leg M79.605 [place] [id number] [place] [address] 82902- 8984 Jun, [place] [address] 73897- 3508 Jun, [facility] [place] [id number] [place] [address] 51941- 7171 Jun, Degenerative disc disease 722.6 [facility] [place] [id number] [place] [address] 37584- 5511 Jun, [facility] [place] [id number] [place] [address] 55142- 9475 28 May, 2015 Seizures 780.39 and Autonomic peripheral neuropathy 337.9 [facility] [place] [id number] [place] [address] 26239- 9571 18 May, 2015 [facility] [place] [address] 50389- 6511 17 May, 2015 [facility] [place] [id number] [place] [address] 13349- 1487 08 May, 2015 Degenerative disc disease 722.6 [facility] [place] [id number] [place] [address] 10576- 6024 08 May, 2015 [facility] [place] [id number] [place] [address] 99988- 5186 Mar, [facility] [place] [id number] [place] [address] 99433- 3912 Mar, Degenerative disc disease 722.6 ; Spinal stenosis 724.00 and HTN (hypertension) 401.9 [facility] [place] [id number] [place] [address] 67263- 9113 Feb, Cutaneous horn 702.8 [facility] [place] [id number] [place] [address] 82099- 5288 Feb, Fatigue 780.79 [facility] [place] [id number] [place] [address] 27140- 9308 Feb, Fatigue 780.79 ; Arthritis 716.90 ; Spinal stenosis 724.00 ; Sinusitis 473.9 and Cutaneous horn 702.8 [facility] [place] [id number] [place] [address] 55538- 6313 January, [facility] [place] [facility] [address] [id number] [place] [address]- 3165 Dec, [facility] [place] [facility] [address] [id number] [place] [address]- 0054 Dec, [facility] [place] [facility] [address] [facility] [id number] [place] [address]- 5141 Nov, [facility] [place] [facility] [address] [id number] [place] [address]- 8578 Nov, [facility] [place] [facility] [address] [id number] [place] [address]- 3177 Oct, [facility] [place] [facility] [address] [id number] [place] [address]- 1260 Oct, [facility] [place] [facility] [address] [facility] [id number] [place] [address]- 2938 Oct, [facility] [place] [facility] [address] [facility] [id number] [place] [address]- 3935 Oct, [facility] [place] [facility] [address] [id number] [place] [address]- 7506 Oct, [facility] [place] [facility] [address] [facility] [id number] [place] [address]- 7043 Oct, [facility] [place] [facility] [address] [facility] [id number] [place] [address]- 4975 Sep, [facility] [place] [facility] [address] [id number] [place] [address]- 4889 Sep, [facility] [place] [facility] [address] [id number] [place] [address]- 3690 Sep, [facility] [place] [facility] [address] [facility] [id number] [place] [address]- 4393 Sep, [facility] [place] [facility] [address] [facility] [id number], [place] [address]- 7632 Sep, [facility] [place] [facility] [address] [id number] [place] [address]- 6650 Sep, [facility] [place] [facility] [address] [id number] [place] [address]- 0869 Sep, [facility] [place] [facility] [address] [id number] [place] [address]- 1956 Sep, [facility] [place] [facility] [address] [id number] [place] [address]- 8360 Sep, [facility] [place] [facility] [address] [id number] [place] [address]- 9948 Sep, [facility] [place] [facility] [address] [id number] [place] [address]- 5034 Sep, [facility] [place] [facility] [address] [id number] [place] [address]- 7505 Sep, [facility] [place] [facility] [address] [id number] [place] [address]- 9906 Sep, [facility] [place] [facility] [address] [id number] [place] [address]- 0300 Sep, [facility] [place] [facility] [address] [id number] [place] [address]- 8449 Aug, [facility] [place] [facility] [address] [id number] [place] [address]- 6729 Aug, [facility] [place] [facility] [address] [id number] [place] [address]- 5946 Aug, [facility] [place] [facility] [address] [id number] [place] [address]- 8766 Aug, [facility] [place] [facility] [address] [id number] [place] [address]- 9121 Jul, [facility] [place] [facility] [address] [id number] [place] [address]- 7425 Jul, [facility] [place] [facility] [address] [id number] [place] [address]- 8918 May, [facility] [place] [facility] [address] [id number] [place] [address]- 7234 May, [facility] [place] [facility] [address] [id number] [place] [address]- 7561 May, [facility] [place] [facility] [address] [id number] [place] [address]- 8028 May, [facility] [place] [facility] [address] [id number] [place] [address]- 5131 May, [facility] [place] [facility] [address] [id number] [place] [address]- 7376 May, [facility] [place] [facility] [address] [id number] [place] [address]- 3170 Apr, [facility] [place] [facility] [address] [id number] [place] [address]- 8059 Apr, [facility] [place] [facility] [address] [id number] [place] [address]- 1383 Mar, [facility] [place] [facility] [address] [id number] [place] [address]- 7883 Mar, [facility] [place] [facility] [address] [id number] [place] [address]- 2448 Mar, [facility] [place] [facility] [address] [id number] [place] [address]- 6183 Mar, [facility] [place] [facility] [address] [id number] [place] [address]- 7053 Mar, [facility] [place] [facility] [address] [id number] [place] [address]- 6193 Mar, [facility] [place] [facility] [address] [id number] [place] [address]- 7980 Mar, [facility] [place] [facility] [address] [id number] [place] [address]- 6690 Mar, [facility] [place] [facility] [address] [id number] [place] [address]- 4025 Feb, [facility] [address] [id number] [place] [address]- 9683 Feb, [facility] [place] [facility] [address] [id number] [place] [address]- 6002 January, [facility] [place] [facility] [address] [id number] [place] [address]- 6368 January, [facility] [place] [facility] [address] [id number] [place] [address]- 8916 January, [facility] [place] [facility] [address] [id number] [place] [address]- 4374 January, [facility] [place] [facility] [address] [id number] [place] [address]- 4646 Dec, [facility] [place] [facility] [address] [id number] [place] [address]- 9566 Dec, [facility] [place] [facility] [address] [id number] [place] [address]- 9306 Oct, [facility] [place] [facility] [address] [id number] [place] [address]- 8087 Oct, [facility] [place] [facility] [address] [id number] [place] [address]- 3953 Oct, [facility] [place] [facility] [address] [id number] [place] [address]- 3798 Oct, [facility] [place] [facility] [address] [id number] [place] [address]- 1519 Sep, [facility] [place] [facility] [address] [id number] [place] [address]- 1614 Sep, [facility] [place] [facility] [address] [id number] [place] [address] Aug, [facility] [place] [facility] [address] [id number] [place] [address] Aug, [facility] [address] [id number] [place] [address] Aug, [facility] [place] [facility] [address] [id number] [place] [address] Aug, [facility] [place] [facility] [address] [id number] [place] [address] Aug, [facility] [place] [facility] [address] [id number] [place] [address] Aug, [facility] [address] [id number] [place] [address] Aug, [facility] [place] [facility] [address] [id number] [place] [address] Aug, [facility] [place] [facility] [address] [id number] [place] [address] Aug, [facility] [place] [facility] [address] [id number] [place] [address] Aug, [facility] [place] [facility] [address] [id number] [place] [address] Jul, [facility] [place] [facility] [address] [id number], [place] [address] Jul, [facility] [place] [facility] [address] [id number], [place] [address] Jun, [facility] [place] [facility] [address] [id number], [place] [address] Jun, [facility] [place] [facility] [address] [id number], [place] [address] Jun, [facility] [place] [facility] [address] [id number], [place] [address] Jun, [facility] [place] [facility] [address] [facility] [id number], [place] [address] Jun, [facility] [place] [facility] [address] [id number] [place] [address] 13 May, 2012 [facility] [address] [id number] [place] [address] 13 May, 2012 [facility] [place] [facility] [address] [id number] [place] [address] 12 May, 2012 [facility] [address] [id number] [place] [address] 06 May, 2012 [facility] [place] [facility] [address] [id number] [place] [address] 03 May, 2012 [facility] [place] [facility] [address] [id number] [place] [address] Apr, [facility] [place] [facility] [address] [id number] [place] [address] Mar, [facility] [address] [id number] [place] [address] 15 Mar, 2013 [facility] [place] [facility] [address] [id number] [place] [address] Mar, [facility] [place] [facility] [address] [id number] [place] [address] Mar, [facility] [place] [facility] [address] [id number] [place] [address] Mar, [facility] [place] [facility] [address] [id number] [place] [address] Mar, [facility] [place] [facility] [address] [id number] [place] [address] Mar, [facility] [place] [facility] [address] [id number] [place] [address] Mar, [facility] [place] [facility] [address] [id number] [place] [address] Mar, [facility] [place] [facility] [address] [id number] [place] [address] Feb, [facility] [place] [facility] [address] [id number] [place] [address] Feb, [facility] [address] [id number] [place] [address] Feb, [facility] [address] [id number] [place] [address] January, [facility] [address] [id number] [place] [address] January, [facility] [address] [id number] [place] [address] January, [facility] [address] [id number] [place] [address] January, [facility] [address] [id number] [place] [address] Dec, [facility] [address] [id number] [place] [address] Dec, [facility] [address] [id number] [place] [address] Dec, [facility] [address] [id number] [place] [address] Dec, [facility] [address] [id number] [place] [address] Dec, [facility] [address] [id number] [place] [address] Dec, [facility] [address] [id number] [place] [address] Nov, [facility] [address] [id number] [place] [address] Oct, [facility] [address] [id number] [place] [address] Aug, [facility] [address] [id number] [place] [address] Aug, [facility] [place] [facility] [address] [id number] [place] [address] Aug, [facility] [place] [facility] [address] [id number] [place] [address] Aug, [facility] [place] [facility] [address] [id number] [place] [address] Aug, [facility] [place] [facility] [address] [id number] [place] [address] Aug, [facility] [place] [facility] [address] [id number] [place] [address] Aug, [facility] [place] [facility] [address] [id number] [place] [address] Aug, [facility] [place] [facility] [address] [id number] [place] [address] Aug, [facility] [place] [facility] [address] [id number] [place] [address] Aug, [facility] [place] [facility] [address] [id number] [place] [address] Aug, [facility] [place] [facility] [address] [id number] [place] [address] Jul, [facility] [place] [facility] [address] [id number] [place] [address] Jul, [facility] [place] [facility] [address] [id number] [place] [address] Jul, [facility] [place] [facility] [address] [id number] [place] [address] Jul, [facility] [place] [facility] [address] [id number] [place] [address] Jul, [facility] [place] [facility] [address] [id number] [place] [address] Jul, [facility] [place] [facility] [address] [id number] [place] [address] Jun, [facility] [address] [id number] [place] [address] Jun, [facility] [place] [facility] [address] [id number] [place] [address] May, [facility] [address] [id number] [place] [address] Apr, [facility] [place] [facility] [address] [id number] [place] [address] Apr, [facility] [address] [id number] [place] [address] Apr, [facility] [address] [id number] [place] [address] Apr, [facility] [address] [id number] [place] [address] Apr, [facility] [address] [id number] [place] [address] Mar, [facility] [place] [facility] [address] [id number] [place] [address] Mar, [facility] [address] [id number] [place] [address] January, [facility] [address] [id number] [place] [address] January, [facility] [address] [id number] [place] [address] Nov, [facility] [place] [facility] [address] [id number] [place] [address] Oct, [facility] [place] [facility] [address] [id number] [place] [address] Sep, [facility] [place] [facility] [address] [id number] [place] [address] Sep, [facility] [place] [facility] [address] [id number] [place] [address] Sep, [facility] [place] [facility] [address] [id number] [place] [address] Sep, [facility] [place] [facility] [address] [id number] [place] [address] 1164 Sep, [facility] [place] [facility] [address] [id number] [place] [address] Sep, [facility] [place] [facility] [address] [id number] [place] [address]34 Aug, [facility] [place] [facility] [address] [id number] [place] [address] Aug, [facility] [place] [facility] [address] [id number] [place] [address] Aug, [facility] [place] [facility] [address] [id number] [place] [address] Aug, [facility] [place] [facility] [address] [id number] [place] [address] Aug, [facility] [place] [facility] [address] [id number], [place] [address] Jul, [facility] [place] [facility] [address] [id number] [place] [address] Jul, [facility] [place] [facility] [address] [id number], [place] [address] Jul, [facility] [place] [facility] [address] [id number] [place] [address]- 7973 Jun, [facility] [place] [facility] [address] [id number] [place] [address] Jun, [facility] [place] [facility] [address] [id number] [place] [address]- [address] Jun, [facility] [place] [facility] [address] [id number] [address] 11 Jan, 2011 [facility] [place] [id number], [place] [address] Dec, [facility] [place] [id number], [place] [address] 17 Oct, 2010 [facility] [place] [id number], [place] [address] Oct, [facility] [place] [id number] [place] [address] Jun, [facility] [place] [id number] [place] [address]- [address] Aug, [facility] [place] [id number] [place] [address]- [address] Aug, [facility] [place] [id number] [place] [address] 25[address] Jul, [facility] [place] [id number], [place] [address] Mar, IMMUNIZATIONS No Known Immunizations SOCIAL HISTORY Never Assessed REASON FOR VISIT Enalapril PLAN OF CARE VITAL SIGNS MEDICATIONS Medication Instructions Dosage Frequency Start Date End Date Duration Status Enalapril Maleate 20 mg Orally 2 times a day 0.5 tablet 12h Nov, 30 day(s) Active RESULTS No Results PROCEDURES No Known procedures INSTRUCTIONS MEDICATIONS ADMINISTERED No Known Medications MEDICAL (GENERAL) HISTORY Type Description Date Medical History Hypertension Medical History Chronic Obstructive pulmonary disease diagnosed 2008 in [place]-PFT not done previously Medical History Gastrointestinal disorder [...]
--- OUTSIDE RECORDS SUMMARY | 2018-08-21 15:41 | XMS REPORT ---
Author Author KAITLIN TURNER Organization [facility] Address [address] 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 Phone KAITLIN TURNER Unavailable PROBLEMS Type Condition ICD9-CM Code MHE49-TM Code Onset Dates Condition Status SNOMED Code Problem Chronic sinusitis, unspecified J32.9 Active 77909279 Problem Other chronic pain G89.29 Active 23511542 Problem Gastroesophageal reflux disease without esophagitis K21.9 Active 413929364 Problem Slow transit constipation K59.01 Active 81884505 Problem Coronary artery disease involving [place] coronary artery of [place] heart without angina pectoris I25.10 Active [id number] Problem Agoraphobia with panic attacks F40.01 Active 898183232 Problem COPD with exacerbation J44.1 Active 506123262 Problem Pericardial effusion I31.3 Active 943638806 Problem Pleural effusion on left J90 Active 85718979 Problem Generalized anxiety disorder F41.1 Active 98984958 Problem Chronic obstructive pulmonary disease, unspecified COPD type J44.9 Active 26558273 Problem Hypertension, benign I10 Active 70895607 Problem Oral phase dysphagia R13.11 Active 416559965 Problem Vitamin B 12 deficiency E53.8 Active 61966578 Problem Chronic fatigue R53.82 Active 27931013 ALLERGIES No Information ENCOUNTERS Encounter Location Date Diagnosis [facility] [id number] [address] Mar, Flank pain R10.9 [facility] [id number] [address] Mar, [facility] [id number] [address] Feb, Coronary artery disease involving [place] coronary artery of [place] heart without angina pectoris I25.10 ; Vitamin B 12 deficiency E53.8 ; Slow transit constipation K59.01 ; Generalized anxiety disorder F41.1 and Breast cancer screening by mammogram Z12.31 [facility] [address] [address] Feb, Flank pain R10.9 [facility] [address] [address] January, [facility] [address] [address] January, Chronic obstructive pulmonary disease, unspecified COPD type J44.9 ; Pleural effusion on left J90 ; Pericardial effusion I31.3 and Generalized anxiety disorder F41.1 [facility] [address] [address] January, Gastroenteritis K52.9 [facility] [address] [address] January, Flank pain R10.9 [facility] [address] [address] January, [address] [id number] [place] [address] Dec [facility] [address] [address] Dec, [facility] [id number] [address] 46[address] Dec, [facility] [id number] [address] 75[address] Dec, [facility] [address] [facility] [id number] [address] Dec, [facility] [address] [address] Dec, Flank pain R10.9 [facility] [id number] [address] 67[address] Dec, [facility] [id number] [place] [address] 68261- 8512 Nov, [facility] [id number] [place] [address] 83221- 7523 Nov, [facility] [id number] [place] [address] 24334- 0972 Nov, [facility] [id number] [place] [address] 03236- 5735 14 Nov, 2017 Pericardial effusion I31.3 ; Agoraphobia with panic attacks F40.01 and Vitamin B 12 deficiency E53.8 [facility] [id number] [place] [address] 07552- 4173 Nov, [facility] [id number] [place] [address] 48015- 8372 Nov, Pneumonia of both lungs due to infectious organism, unspecified part of lung J18.9 and Flank pain R10.9 [facility] [id number] [place] [address] 56153- 3484 Nov, Pneumonia of both lungs due to infectious organism, unspecified part of lung J18.9 and Gastroenteritis K52.9 [facility] [id number] [place] [address] 52909- 1698 Oct, Pneumonia of both lungs due to infectious organism, unspecified part of lung J18.9 and Vitamin B 12 deficiency E53.8 [facility] [place] [id number] [place] [address] [id number] Oct, [facility] [id number] [place] [address] 49276- 8222 Oct, [facility] [id number] [place] [address] 82923- 8521 Oct, [facility] [id number] [place] [address] 27941- 7750 Oct, Flank pain R10.9 [facility] [id number] [place] [address] 22002- 6692 Oct, Other chronic pain G89.29 and Unspecified abdominal pain R10.9 [facility] [address] [address]69- 2158 Sep, Flank pain R10.9 [facility] [id number] [place] [address] 78227- 0417 Sep, [facility] [address] 46334- 3170 Sep, [facility] [id number] [place] [address] 02645- 0005 Sep, Acute non-recurrent maxillary sinusitis J01.00 [facility] [id number] [place] [address] 17153- 1907 Sep, Acute non-recurrent maxillary sinusitis J01.00 and Vitamin B 12 deficiency E53.8 [facility] [id number] [place] [address] 63847- 0149 Sep, [facility] [id number] [place] [address] 88127- 1342 Sep, [facility] [id number] [place] [address] 40686- 2744 Sep, [facility] [id number] [place] [address] 64226- 8736 Sep, COPD with exacerbation J44.1 [facility] [id number] [place] [address] 93194- 9614 Sep, Chronic obstructive pulmonary disease, unspecified COPD type J44.9 [facility] [id number] [place] [address] 50315- 3331 Aug, Flank pain R10.9 [facility] [id number] [place] [address] 24530- 3065 Jul, Flank pain R10.9 and Vitamin B 12 deficiency E53.8 [facility] [id number] [place] [address] 74031- 1398 Jul, [facility] [address] 67455- 2008 Jun, Gastroenteritis K52.9 [facility] [id number] [place] [address] 94012- 7400 May, Gastroenteritis K52.9 and Vitamin B 12 deficiency E53.8 [facility] [address] 02550- 6760 Apr, Allergic conjunctivitis of left eye H10.12 and Chronic fatigue R53.82 [address] 91292- 0139 Apr, Chronic sinusitis, unspecified J32.9 [address] [place] [address] 19623- 0517 Apr, [facility] [id number] [place] [address] 81308- 1539 Feb, [facility] [id number] [place] [address] 27473- 9139 January, [facility] [id number] [place] [address] 21496- 5763 Dec, [facility] [id number] [place] [address] 02637- 4746 Oct, [facility] [id number] [place] [address] 37978- 9624 Sep, Oral phase dysphagia R13.11 and Vitamin B 12 deficiency E53.8 [facility] [id number] [place] [address] 96054- 1205 Sep, [facility] [id number] [place] [address] 71101- 0790 Jul, [facility] [id number] [place] [address] 33734- 7026 Jul, [facility] [id number] [place] [address] 23672- 3581 Jun, Bronchitis J40 ; Generalized anxiety disorder F41.1 and Chronic obstructive pulmonary disease, unspecified COPD type J44.9 [facility] [id number] [place] [address] 67670- 4864 Jun, [facility] [address] 96628- 7005 Jun, [facility] [id number] [place] [address] 22327- 8352 Jun, [facility] [address] 69326- 4761 May, Vitamin B 12 deficiency E53.8 ; Essential (primary) hypertension I10 ; Generalized anxiety disorder F41.1 ; Pain in joint, ankle and foot 719.47 ; Arthritis M19.90 ; Chronic obstructive pulmonary disease, unspecified COPD type J44.9 and Encounter for immunization Z23 [facility] [id number] [place] [address] 09626- 4237 Apr, [facility] [id number] [place] [address] 45841- 0965 Apr, [facility] [id number] [place] [address] 05024- 0902 Mar, [facility] [id number] [place] [address] 76044- 0367 January, [facility] [id number] [place] [address] 51999- 2353 Dec, [facility] [address] 34743- 3501 Oct, [facility] [id number] [place] [address] 03145- 0511 Oct, [facility] [address] 95574- 0025 Oct, Hypertension, benign I10 and Vitamin B 12 deficiency E53.8 [address] [id number] [place] [address] 92182- 4590 Oct, [address] [id number] [place] [address] 03720- 8040 Oct, [address] [place] 36132- 5446 Oct, Irritable bowel syndrome with diarrhea K58.0 [address] [place] [id number] [place] [address] 78012- 9724 Oct, [address] [id number] [place] [address] 45639- 0441 Oct, Vitamin B 12 deficiency E53.8 ; Hypertension, benign I10 and Chronic obstructive pulmonary disease, unspecified COPD type J44.9 [address] [place] [id number] [place] [address] 96708- 5718 Sep, Irritable bowel syndrome with diarrhea K58.0 ; Hypertension , benign I10 ; Chronic obstructive pulmonary disease, unspecified COPD type J44.9 ; Edema, unspecified type R60.9 ; Vision changes H53.9 and Vitamin B 12 deficiency E53.8 [address] [place] [id number] [place] [address] 83541- 8968 Sep, [address] [place] [id number] [place] [address] 99813- 8632 Jul, Degenerative disc disease 722.6 [address] [place] [id number] [place] [address] 13421- 9566 Jun, Pain in right leg M79.604 ; Encounter for immunization Z23 and Pain of left leg M79.605 [address] [place] [id number] [place] [address] 17190- 6213 Jun, [address] [place] [address] 47690- 0813 Jun, [facility] [id number] [place] [address] 14468- 9013 Jun, Degenerative disc disease 722.6 [facility] [id number] [place] [address] 16703- 4034 Jun, [facility] [id number] [place] [address] 14504- 4658 28 May, 2015 Seizures 780.39 and Autonomic peripheral neuropathy 337.9 [facility] [id number] [place] [address] 75855- 2282 18 May, 2015 [facility] [address] 68297- 4902 17 May, 2015 [facility] [id number] [place] [address] 04950- 6075 08 May, 2015 Degenerative disc disease 722.6 [facility] [id number] [place] [address] 41124- 4652 08 May, 2015 [facility] [id number] [place] [address] 89750- 2540 Mar, [facility] [id number] [place] [address] 66384- 9606 Mar, Degenerative disc disease 722.6 ; Spinal stenosis 724.00 and HTN (hypertension) 401.9 [facility] [id number] [place] [address] 54106- 3121 Feb, Cutaneous horn 702.8 [facility] [id number] [place] [address] 45661- 9053 Feb, Fatigue 780.79 [facility] [id number] [place] [address] 99097- 4579 Feb, Fatigue 780.79 ; Arthritis 716.90 ; Spinal stenosis 724.00 ; Sinusitis 473.9 and Cutaneous horn 702.8 [facility] [id number] [place] [address] 19752- 8371 January, [facility] [place] [facility] [address] [id number] [place] [address]- 1310 Dec, [facility] [place] [facility] [address] [id number] [place] [address]- 0420 Dec, [facility] [place] [facility] [address] [facility] [id number] [place] [address]- 7156 Nov, [facility] [place] [facility] [address] [id number] [place] [address]- 3799 Nov, [facility] [place] [facility] [address] [id number] [place] [address]- 5053 Oct, [facility] [place] [facility] [address] [id number] [place] [address]- 7185 Oct, [facility] [place] [facility] [address] [facility] [id number] [place] [address]- 2020 Oct, [facility] [place] [facility] [address] [facility] [id number] [place] [address]- 2977 Oct, [facility] [place] [facility] [address] [id number] [place] [address]- 1297 Oct, [facility] [place] [facility] [address] [facility] [id number] [place] [address]- 9575 Oct, [facility] [place] [facility] [address] [facility] [id number] [place] [address]- 0763 Sep, [facility] [place] [facility] [address] [id number] [place] [address]- 1437 Sep, [facility] [place] [facility] [address] [id number] [place] [address]- 5146 Sep, [facility] [place] [facility] [address] [facility] [id number] [place] [address]- 9725 Sep, [facility] [place] [facility] [address] [facility] [id number] [address]- 1646 Sep, [facility] [place] [facility] [address] [id number] [place] [address]- 2410 Sep, [facility] [place] [facility] [address] [id number] [place] [address]- 0943 Sep, [facility] [place] [facility] [address] [id number] [place] [address]- 4444 Sep, [facility] [place] [facility] [address] [id number] [place] [address]- 8124 Sep, [facility] [place] [facility] [address] [id number] [place] [address]- 0862 Sep, [facility] [place] [facility] [address] [id number] [place] [address]- 1790 Sep, [facility] [place] [facility] [address] [id number] [place] [address]- 0565 Sep, [facility] [place] [facility] [address] [id number] [place] [address]- 5379 Sep, [facility] [place] [facility] [address] [id number] [place] [address]- 7364 Sep, [facility] [place] [facility] [address] [id number] [place] [address]- 3196 Aug, [facility] [place] [facility] [address] [id number] [place] [address]- 9025 Aug, [facility] [place] [facility] [address] [id number] [place] [address]- 6296 Aug, [facility] [place] [facility] [address] [id number] [place] [address]- 7152 Aug, [facility] [place] [facility] [address] [id number] [place] [address]- 6212 Jul, [facility] [place] [facility] [address] [id number] [place] [address]- 1038 Jul, [facility] [place] [facility] [address] [id number] [place] [address]- 0372 May, [facility] [place] [facility] [address] [id number] [place] [address]- 0444 May, [facility] [place] [facility] [address] [id number] [place] [address]- 5188 May, [facility] [place] [facility] [address] [id number] [place] [address]- 2499 May, [facility] [place] [facility] [address] [id number] [place] [address]- 6476 May, [facility] [place] [facility] [address] [id number] [place] [address]- 0072 May, [facility] [place] [facility] [address] [id number] [place] [address]- 2747 Apr, [facility] [place] [facility] [address] [id number] [place] [address]- 0076 Apr, [facility] [place] [facility] [address] [id number] [place] [address]- 0392 Mar, [facility] [place] [facility] [address] [id number] [place] [address]- 1668 Mar, [facility] [place] [facility] [address] [id number] [place] [address]- 1772 Mar, [facility] [place] [facility] [address] [id number] [place] [address]- 7015 Mar, [facility] [place] [facility] [address] [id number] [place] [address]- 1443 Mar, [facility] [place] [facility] [address] [id number] [place] [address]- 4378 Mar, [facility] [place] [facility] [address] [id number] [place] [address]- 6806 Mar, [facility] [place] [facility] [address] [id number] [place] [address]- 6493 Mar, [facility] [place] [facility] [address] [id number] [place] [address]- 6992 Feb, [facility] [address] [id number] [place] [address]- 2423 Feb, [facility] [place] [facility] [address] [id number] [place] [address]- 1574 January, [facility] [place] [facility] [address] [id number] [place] [address]- 8738 January, [facility] [place] [facility] [address] [id number] [place] [address]- 5990 January, [facility] [place] [facility] [address] [id number] [place] [address]- 8413 January, [facility] [place] [facility] [address] [id number] [place] [address]- 3806 Dec, [facility] [place] [facility] [address] [id number] [place] [address]- 5085 Dec, [facility] [place] [facility] [address] [id number] [place] [address]- 5817 Oct, [facility] [place] [facility] [address] [id number] [place] [address]- 4600 Oct, [facility] [place] [facility] [address] [id number] [place] [address]- 5821 Oct, [facility] [place] [facility] [address] [id number] [place] [address]- 9022 Oct, [facility] [place] [facility] [address] [id number] [place] [address]- 0676 Sep, [facility] [place] [facility] [address] [id number] [place] [address]- 2246 Sep, [facility] [place] [facility] [address] [id number] [place] [address]- 1406 Aug, [facility] [place] [facility] [address] [id number] [place] [address]- 2588 Aug, [facility] [address] [id number] [place] [address]- 2004 Aug, [facility] [place] [facility] [address] [id number] [place] [address]- 3020 Aug, [facility] [place] [facility] [address] [id number] [place] [address]- 9138 Aug, [facility] [place] [facility] [address] [id number] [place] [address]- 8789 Aug, [facility] [address] [id number] [place] [address]- 2150 Aug, [facility] [place] [facility] [address] [id number] [place] [address]- 7108 Aug, [facility] [place] [facility] [address] [id number] [place] [address]- 7005 Aug, [facility] [place] [facility] [address] [id number] [place] [address]- 0622 Aug, [facility] [place] [facility] [address] [id number] [place] [address]- 8699 Jul, [facility] [place] [facility] [address] [id number] [address]- 7038 Jul, [facility] [place] [facility] [address] [id number] [place] [address]- 4925 Jun, [facility] [place] [facility] [address] [id number] [place] [address]- 1702 Jun, [facility] [place] [facility] [address] [id number] [place] [address]- 0198 Jun, [facility] [place] [facility] [address] [id number] [place] [address]- 3566 Jun, [facility] [place] [facility] [address] [facility] [id number] [place] [address]- 2548 Jun, [facility] [place] [facility] [address] [id number] [place] [address]- 6144 13 May, 2012 [facility] [address] [id number] [place] [address]- 2866 13 May, 2012 [facility] [place] [facility] [address] [id number] [place] [address]- 8726 12 May, 2012 [facility] [address] [id number] [place] [address] 2545 06 May, 2012 [facility] [place] [facility] [address] [id number] [place] [address] 2540 03 May, 2012 [facility] [place] [facility] [address] [id number] [place] [address]- 0717 Apr, [facility] [place] [facility] [address] [id number] [place] [address]- 2025 Mar, [facility] [address] [id number] [place] [address]- 1493 15 Mar, 2013 [facility] [place] [facility] [address] [id number] [place] [address] Mar, [facility] [place] [facility] [address] [id number] [place] [address] Mar, [facility] [place] [facility] [address] [id number] [place] [address] Mar, [facility] [place] [facility] [address] [id number] [place] [address] Mar, [facility] [place] [facility] [address] [id number] [place] [address] Mar, [facility] [place] [facility] [address] [id number] [place] [address] Mar, [facility] [place] [facility] [address] [id number] [place] [address] Mar, [facility] [place] [facility] [address] [id number] [place] [address] Feb, [facility] [place] [facility] [address] [id number] [place] [address] Feb, [facility] [address] [id number] [place] [address] Feb, [facility] [address] [id number] [place] [address] January, [facility] [address] [id number] [place] [address] January, [facility] [address] [id number] [place] [address] January, [facility] [address] [id number] [place] [address] January, [facility] [address] [id number] [place] [address] Dec, [facility] [address] [id number] [place] [address] Dec, [facility] [address] [id number] [place] [address] Dec, [facility] [address] [id number] [place] [address] Dec, [facility] [address] [id number] [place] [address] Dec, [facility] [address] [id number] [place] [address] Dec, [facility] [address] [id number] [place] [address] Nov, [facility] [address] [id number] [place] [address] Oct, [facility] [address] [id number] [place] [address] Aug, [facility] [address] [id number] [place] [address] Aug, [facility] [place] [facility] [address] [id number] [place] [address] Aug, [facility] [place] [facility] [address] [id number] [place] [address] Aug, [facility] [place] [facility] [address] [id number] [place] [address] Aug, [facility] [place] [facility] [address] [id number] [place] [address] Aug, [facility] [place] [facility] [address] [id number] [place] [address] Aug, [facility] [place] [facility] [address] [id number] [place] [address] Aug, [facility] [place] [facility] [address] [id number] [place] [address] Aug, [facility] [place] [facility] [address] [id number] [place] [address] Aug, [facility] [place] [facility] [address] [id number] [place] [address] Aug, [facility] [place] [facility] [address] [id number] [place] [address] Jul, [facility] [place] [facility] [address] [id number] [place] [address] Jul, [facility] [place] [facility] [address] [id number] [place] [address] Jul, [facility] [place] [facility] [address] [id number] [place] [address] Jul, [facility] [place] [facility] [address] [id number] [place] [address] Jul, [facility] [place] [facility] [address] [id number] [place] [address] Jul, [facility] [place] [facility] [address] [id number] [place] [address] Jun, [facility] [address] [id number] [place] [address] Jun, [facility] [place] [facility] [address] [id number] [place] [address] May, [facility] [address] [id number] [place] [address] Apr, [facility] [place] [facility] [address] [id number] [place] [address] Apr, [facility] [address] [id number] [place] [address] Apr, [facility] [address] [id number] [place] [address] Apr, [facility] [address] [id number] [place] [address] Apr, [facility] [address] [id number] [place] [address] Mar, [facility] [place] [facility] [address] [id number] [place] [address] Mar, [facility] [address] [id number] [place] [address] January, [facility] [address] [id number] [place] [address] January, [facility] [address] [id number] [place] [address] Nov, [facility] [place] [facility] [address] [id number] [place] [address] Oct, [facility] [place] [facility] [address] [id number] [place] [address] Sep, [facility] [place] [facility] [address] [id number] [place] [address] Sep, [facility] [place] [facility] [address] [id number] [place] [address] Sep, [facility] [place] [facility] [address] [id number] [place] [address] Sep, [facility] [place] [facility] [address] [id number] [place] [address] Sep, [facility] [place] [facility] [address] [id number] [place] [address] Sep, [facility] [place] [facility] [address] [id number] [place] [address] Aug, [facility] [place] [facility] [address] [id number] [place] [address] Aug, [facility] [place] [facility] [address] [id number] [place] [address] Aug, [facility] [place] [facility] [address] [id number] [place] [address] Aug, [facility] [place] [facility] [address] [id number] [place] [address] Aug, [facility] [place] [facility] [address] [id number] [address] Jul, [facility] [place] [facility] [address] [id number] [place] [address] Jul, [facility] [place] [facility] [address] [id number] [address] Jul, [facility] [place] [facility] [address] [id number] [place] [address] Jun, [facility] [place] [facility] [address] [id number] [place] [address] Jun, [facility] [place] [facility] [address] [id number] [place] [address] Jun, [facility] [place] [facility] [id number] [address] January, [facility] [id number] [address] Dec, [facility] [id number] [address] Oct, [facility] [id number] [address] Oct, [facility] [id number] [place] [address] Jun, [facility] [id number] [place] [address] Aug, [facility] [id number] [place] [address] Aug, [facility] [id number] [place] [address] Jul, [facility] [id number] [address] Mar, IMMUNIZATIONS No Known Immunizations SOCIAL HISTORY Never Assessed REASON FOR VISIT [facility] PLAN OF CARE VITAL SIGNS MEDICATIONS Unknown Medications RESULTS No Results PROCEDURES No Known procedures INSTRUCTIONS MEDICATIONS ADMINISTERED No Known Medications MEDICAL (GENERAL) HISTORY Type Description Date Medical History Hypertension Medical History Chronic Obstructive pulmonary disease diagnosed 2008 in [place]-PFT not done previously Medical History Gastrointestinal disorder [...]
--- OUTSIDE RECORDS SUMMARY | 2018-08-21 15:41 | XMS REPORT ---
Author Author KAITLIN TURNER Organization [facility] Address [address] 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01 Active 017781325 Problem COPD with exacerbation J44.1 Active 830078861 Problem Pericardial effusion I31.3 Active 361848490 Problem Pleural effusion on left J90 Active 75450775 Problem Generalized anxiety disorder F41.1 Active 09183626 Problem Chronic obstructive pulmonary disease, unspecified COPD type J44.9 Active 08476580 Problem Hypertension, benign I10 Active 26763839 Problem Oral phase dysphagia R13.11 Active 044741030 Problem Vitamin B 12 deficiency E53.8 Active 03436063 Problem Chronic fatigue R53.82 Active 10131836 ALLERGIES No Information ENCOUNTERS Encounter Location Date Diagnosis [facility] [id number] [address] Mar, Flank pain R10.9 [facility] [id number] [address] Mar, [facility] [id number] [address] Feb, Coronary artery disease involving lower si[place] coronary artery of lower [place] heart without angina pectoris I25.10 ; Vitamin B 12 deficiency E53.8 ; Slow transit constipation K59.01 ; Generalized anxiety disorder F41.1 and Breast cancer screening by mammogram Z12.31 [facility] [address] [address] Feb, Flank pain R10.9 [facility] [address] [address] January, [facility] [address] [address] January, Chronic obstructive pulmonary disease, unspecified COPD type J44.9 ; Pleural effusion on left J90 ; Pericardial effusion I31.3 and Generalized anxiety disorder F41.1 [facility] [address] [address] January, Gastroenteritis K52.9 [facility] [address] [address] January, Flank pain R10.9 [facility] [address], [place] [address] January, [address] [id number] [place] [address] Dec [facility] [address] [address] Dec, [facility] [id number] [address] Dec, [facility] [id number] [address] 75[address] Dec, [facility] [address] [facility] [id number] [address] Dec, [facility] [address] [address] Dec, Flank pain R10.9 [facility] [id number] [address] Dec, [facility] [id number] [place] [address] 91987- 4081 Nov, [facility] [id number] [place] [address] 31032- 3771 Nov, [facility] [id number] [place] [address] 37372- 3123 Nov, [facility] [id number] [place] [address] 08010- 3180 14 Nov, 2017 Pericardial effusion I31.3 ; Agoraphobia with panic attacks F40.01 and Vitamin B 12 deficiency E53.8 [facility] [id number] [place] [address] 93229- 8191 Nov, [facility] [id number] [place] [address] 12909- 4575 Nov, Pneumonia of both lungs due to infectious organism, unspecified part of lung J18.9 and Flank pain R10.9 [facility] [id number] [place] [address] 13016- 1718 Nov, Pneumonia of both lungs due to infectious organism, unspecified part of lung J18.9 and Gastroenteritis K52.9 [facility] [id number] [place] [address] 77548- 0070 Oct, Pneumonia of both lungs due to infectious organism, unspecified part of lung J18.9 and Vitamin B 12 deficiency E53.8 [facility] [id number] [place] [address] [id number] Oct, [facility] [id number] [place] [address] 22142- 2587 Oct, [facility] [id number] [place] [address] 09608- 1075 Oct, [facility] [id number] [place] [address] 53499- 9990 Oct, Flank pain R10.9 [facility] [id number] [place] [address] 99441- 5433 Oct, Other chronic pain G89.29 and Unspecified abdominal pain R10.9 [facility] [address] [address]- [address]1 Sep, Flank pain R10.9 [facility] [id number] [place] [address] 02010- 2741 Sep, [facility] [address] 71978- 8749 Sep, [facility] [id number] [place] [address] 64313- 0071 Sep, Acute non-recurrent maxillary sinusitis J01.00 [facility] [id number] [place] [address] 46712- 7827 Sep, Acute non-recurrent maxillary sinusitis J01.00 and Vitamin B 12 deficiency E53.8 [facility] [id number] [place] [address] 39322- 0895 Sep, [facility] [id number] [place] [address] 82584- 5064 Sep, [facility] [id number] [place] [address] 88087- 9744 Sep, [facility] [id number] [place] [address] 42265- 8408 Sep, COPD with exacerbation J44.1 [facility] [id number] [place] [address] 28718- 1420 Sep, Chronic obstructive pulmonary disease, unspecified COPD type J44.9 [facility] [id number] [place] [address] 68388- 2962 Aug, Flank pain R10.9 [facility] [id number] [place] [address] 38687- 3107 Jul, Flank pain R10.9 and Vitamin B 12 deficiency E53.8 [facility] [id number] [place] [address] 13647- 1446 Jul, [facility] [address] 70855- 7571 Jun, Gastroenteritis K52.9 [facility] [id number] [place] [address] 91219- 5957 May, Gastroenteritis K52.9 and Vitamin B 12 deficiency E53.8 [facility] [address] 41007- 2629 Apr, Allergic conjunctivitis of left eye H10.12 and Chronic fatigue R53.82 [address] [place] [address] 9[address]27- 4757 Apr, Chronic sinusitis, unspecified J32.9 [place] [address] 67676- 2727 Apr, [facility] [id number] [place] [address] 07221- 3240 Feb, [facility] [id number] [place] [address] 77348- 1518 January, [facility] [id number] [place] [address] 85620- 1595 Dec, [facility] [id number] [place] [address] 95414- 0848 Oct, [facility] [id number] [place] [address] 40729- 4488 Sep, Oral phase dysphagia R13.11 and Vitamin B 12 deficiency E53.8 [facility] [id number] [place] [address] 15406- 4446 Sep, [facility] [id number] [place] [address] 12291- 1687 Jul, [facility] [id number] [place] [address] 81973- 9346 Jul, [facility] [id number] [place] [address] 96050- 3542 Jun, Bronchitis J40 ; Generalized anxiety disorder F41.1 and Chronic obstructive pulmonary disease, unspecified COPD type J44.9 [facility] [id number] [place] [address] 66117- 9755 Jun, [facility] [address] 17770- 8787 Jun, [facility] [id number] [place] [address] 84500- 4569 Jun, [facility] [address] 90643- 5960 May, Vitamin B 12 deficiency E53.8 ; Essential (primary) hypertension I10 ; Generalized anxiety disorder F41.1 ; Pain in joint, ankle and foot 719.47 ; Arthritis M19.90 ; Chronic obstructive pulmonary disease, unspecified COPD type J44.9 and Encounter for immunization Z23 [facility] [id number] [place] [address] 14626- 8648 Apr, [facility] [id number] [place] [address] 85345- 8823 Apr, [facility] [id number] [place] [address] 23190- 1247 Mar, [facility] [id number] [place] [address] 71211- 0117 January, [facility] [id number] [place] [address] 17478- 2244 Dec, [facility] [address] 00881- 5634 Oct, [facility] [id number] [place] [address] 16022- 3571 Oct, [facility] [address] 86141- 2757 Oct, Hypertension, benign I10 and Vitamin B 12 deficiency E53.8 [place] [id number] [place] [address] 24203- 0847 Oct, [place] [id number] [place] [address] 83656- 1770 Oct, [address] [place] [address] 47602- 1090 Oct, Irritable bowel syndrome with diarrhea K58.0 [place] [id number] [place] [address] 79259- 5536 Oct, [place] [id number] [place] [address] 88849- 4093 Oct, Vitamin B 12 deficiency E53.8 ; Hypertension, benign I10 and Chronic obstructive pulmonary disease, unspecified COPD type J44.9 [place] [facility] [id number] [place] [address] 14458- 2499 Sep, Irritable bowel syndrome with diarrhea K58.0 ; Hypertension , benign I10 ; Chronic obstructive pulmonary disease, unspecified COPD type J44.9 ; Edema, unspecified type R60.9 ; Vision changes H53.9 and Vitamin B 12 deficiency E53.8 [place] [id number] [place] [address] 50371- 5653 Sep, [place] [id number] [place] [address] 04598- 8529 Jul, Degenerative disc disease 722.6 [place] [id number] [place] [address] 56123- 7573 Jun, Pain in right leg M79.604 ; Encounter for immunization Z23 and Pain of left leg M79.605 [place] [facility] [id number] [place] [address] 42398- 1119 Jun, [place] [address] 72119- 0816 Jun, [facility] [id number] [place] [address] 29926- 3476 Jun, Degenerative disc disease 722.6 [facility] [id number] [place] [address] 47961- 2093 Jun, [facility] [id number] [place] [address] 63221- 2249 28 May, 2015 Seizures 780.39 and Autonomic peripheral neuropathy 337.9 [facility] [id number] [place] [address] 04667- 9773 18 May, 2015 [facility] [address] 32389- 7539 17 May, 2015 [facility] [id number] [place] [address] 19706- 9278 08 May, 2015 Degenerative disc disease 722.6 [facility] [id number] [place] [address] 40912- 7766 08 May, 2015 [facility] [id number] [place] [address] 25924- 3166 Mar, [facility] [id number] [place] [address] 48249- 6850 Mar, Degenerative disc disease 722.6 ; Spinal stenosis 724.00 and HTN (hypertension) 401.9 [facility] [id number] [place] [address] 96971- 0532 Feb, Cutaneous horn 702.8 [facility] [id number] [place] [address] 84348- 7143 Feb, Fatigue 780.79 [facility] [id number] [place] [address] 49563- 6386 Feb, Fatigue 780.79 ; Arthritis 716.90 ; Spinal stenosis 724.00 ; Sinusitis 473.9 and Cutaneous horn 702.8 [facility] [id number] [place] [address] 99794- 5437 January, [facility] [place] [facility] [address] [id number] [place] [address]- 4375 Dec, [facility] [place] [facility] [address] [id number] [place] [address]- 7561 Dec, [facility] [place] [facility] [address] [facility] [id number] [place] [address]- 6588 Nov, [facility] [place] [facility] [address] [id number] [place] [address]- 2465 Nov, [facility] [place] [facility] [address] [id number] [place] [address]- 7767 Oct, [facility] [place] [facility] [address] [id number] [place] [address]- 4665 Oct, [facility] [place] [facility] [address] [facility] [id number] [place] [address]- 4690 Oct, [facility] [place] [facility] [address] [facility] [id number] [place] [address]- 0465 Oct, [facility] [place] [facility] [address] [id number] [place] [address]- 0978 Oct, [facility] [place] [facility] [address] [facility] [id number] [place] [address]- 2297 Oct, [facility] [place] [facility] [address] [facility] [id number] [place] [address]- 4615 Sep, [facility] [place] [facility] [address] [id number] [place] [address]- 9621 Sep, [facility] [place] [facility] [address] [id number] [place] [address]- 2866 Sep, [facility] [place] [facility] [address] [facility] [id number] [place] [address]- 3426 Sep, [facility] [place] [facility] [address] [facility] [id number] [address]- 4749 Sep, [facility] [place] [facility] [address] [id number] [place] [address]- 7807 Sep, [facility] [place] [facility] [address] [id number] [place] [address]- 1638 Sep, [facility] [place] [facility] [address] [id number] [place] [address]- 4355 Sep, [facility] [place] [facility] [address] [id number] [place] [address]- 4911 Sep, [facility] [place] [facility] [address] [id number] [place] [address]- 6297 Sep, [facility] [place] [facility] [address] [id number] [place] [address]- 6859 Sep, [facility] [place] [facility] [address] [id number] [place] [address]- 5183 Sep, [facility] [place] [facility] [address] [id number] [place] [address]- 6687 Sep, [facility] [place] [facility] [address] [id number] [place] [address]- 3923 Sep, [facility] [place] [facility] [address] [id number] [place] [address]- 9896 Aug, [facility] [place] [facility] [address] [id number] [place] [address]- 6489 Aug, [facility] [place] [facility] [address] [id number] [place] [address]- 4978 Aug, [facility] [place] [facility] [address] [id number] [place] [address]- 5240 Aug, [facility] [place] [facility] [address] [id number] [place] [address]- 6383 Jul, [facility] [place] [facility] [address] [id number] [place] [address]- 6681 Jul, [facility] [place] [facility] [address] [id number] [place] [address]- 5834 May, [facility] [place] [facility] [address] [id number] [place] [address]- 0529 May, [facility] [place] [facility] [address] [id number] [place] [address]- 7598 May, [facility] [place] [facility] [address] [id number] [place] [address]- 9999 May, [facility] [place] [facility] [address] [id number] [place] [address]- 0247 May, [facility] [place] [facility] [address] [id number] [place] [address]- 0186 May, [facility] [place] [facility] [address] [id number] [place] [address]- 9123 Apr, [facility] [place] [facility] [address] [id number] [place] [address]- 9069 Apr, [facility] [place] [facility] [address] [id number] [place] [address]- 8341 Mar, [facility] [place] [facility] [address] [id number] [place] [address]- 1307 Mar, [facility] [place] [facility] [address] [id number] [place] [address]- 1858 Mar, [facility] [place] [facility] [address] [id number] [place] [address]- 1882 Mar, [facility] [place] [facility] [address] [id number] [place] [address]- 8772 Mar, [facility] [place] [facility] [address] [id number] [place] [address]- 3123 Mar, [facility] [place] [facility] [address] [id number] [place] [address]- 8038 Mar, [facility] [place] [facility] [address] [id number] [place] [address]- 0590 Mar, [facility] [place] [facility] [address] [id number] [place] [address]- 3208 Feb, [facility] [address] [id number] [place] [address]- 3872 Feb, [facility] [place] [facility] [address] [id number] [place] [address]- 1870 January, [facility] [place] [facility] [address] [id number] [place] [address]- 4220 January, [facility] [place] [facility] [address] [id number] [place] [address]- 7144 January, [facility] [place] [facility] [address] [id number] [place] [address]- 8088 January, [facility] [place] [facility] [address] [id number] [place] [address]- 0556 Dec, [facility] [place] [facility] [address] [id number] [place] [address]- 0423 Dec, [facility] [place] [facility] [address] [id number] [place] [address]- 1457 Oct, [facility] [place] [facility] [address] [id number] [place] [address]- 9908 Oct, [facility] [place] [facility] [address] [id number] [place] [address]- 9604 Oct, [facility] [place] [facility] [address] [id number] [place] [address]- 9796 Oct, [facility] [place] [facility] [address] [id number] [place] [address]- 4750 Sep, [facility] [place] [facility] [address] [id number] [place] [address]- 6113 Sep, [facility] [place] [facility] [address] [id number] [place] [address]- 7627 Aug, [facility] [place] [facility] [address] [id number] [place] [address]- 4847 Aug, [facility] [address] [id number] [place] [address]- 8673 Aug, [facility] [place] [facility] [address] [id number] [place] [address]- 5051 Aug, [facility] [place] [facility] [address] [id number] [place] [address]- 5008 Aug, [facility] [place] [facility] [address] [id number] [place] [address]- 4789 Aug, [facility] [address] [id number] [place] [address]- 2504 Aug, [facility] [place] [facility] [address] [id number] [place] [address]- 7754 Aug, [facility] [place] [facility] [address] [id number] [place] [address]- 0215 Aug, [facility] [place] [facility] [address] [id number] [place] [address]- 3274 Aug, [facility] [place] [facility] [address] [id number] [place] [address]- 2850 Jul, [facility] [place] [facility] [address] [id number][place] [address]- 7741 Jul, [facility] [place] [facility] [address] [id number], [place] [address]- 8747 Jun, [facility] [place] [facility] [address] [id number], [place] [address]- 1236 Jun, [facility] [place] [facility] [address] [id number], [place] [address]- 2384 Jun, [facility] [place] [facility] [address] [id number], [place] [address]- 4926 Jun, [facility] [place] [facility] [address] [facility] [id number], [place] [address] Jun, [facility] [place] [facility] [address] [id number] [place] [address] 13 May, 2012 [facility] [address] [id number] [place] [address] 13 May, 2012 [facility] [place] [facility] [address] [id number] [place] [address] 12 May, 2012 [facility] [address] [id number] [place] [address] 06 May, 2012 [facility] [place] [facility] [address] [id number] [place] [address]47 03 May, 2012 [facility] [place] [facility] [address] [id number] [place] [address] Apr, [facility] [place] [facility] [address] [id number] [place] [address] Mar, [facility] [address] [id number] [place] [address] 15 Mar, 2013 [facility] [place] [facility] [address] [id number] [place] [address] Mar, [facility] [place] [facility] [address] [id number] [place] [address] Mar, [facility] [place] [facility] [address] [id number] [place] [address] Mar, [facility] [place] [facility] [address] [id number] [place] [address] Mar, [facility] [place] [facility] [address] [id number] [place] [address] Mar, [facility] [place] [facility] [address] [id number] [place] [address] Mar, [facility] [place] [facility] [address] [id number] [place] [address] Mar, [facility] [place] [facility] [address] [id number] [place] [address] Feb, [facility] [place] [facility] [address] [id number] [place] [address] Feb, [facility] [address] [id number] [place] [address] Feb, [facility] [address] [id number] [place] [address] January, [facility] [address] [id number] [place] [address] January, [facility] [address] [id number] [place] [address] January, [facility] [address] [id number] [place] [address] January, [facility] [address] [id number] [place] [address] Dec, [facility] [address] [id number] [place] [address] Dec, [facility] [address] [id number] [place] [address] Dec, [facility] [address] [id number] [place] [address] Dec, [facility] [address] [id number] [place] [address] Dec, [facility] [address] [id number] [place] [address] Dec, [facility] [address] [id number] [place] [address] Nov, [facility] [address] [id number] [place] [address] Oct, [facility] [address] [id number] [place] [address] Aug, [facility] [address] [id number] [place] [address] Aug, [facility] [place] [facility] [address] [id number] [place] [address] Aug, [facility] [place] [facility] [address] [id number] [place] [address]- [address] Aug, [facility] [place] [facility] [address] [id number] [place] [address]- [address] Aug, [facility] [place] [facility] [address] [id number] [place] [address]- [address] Aug, [facility] [place] [facility] [address] [id number] [place] [address] Aug, [facility] [place] [facility] [address] [id number] [place] [address]- [address] Aug, [facility] [place] [facility] [address] [id number] [place] [address]- [address] Aug, [facility] [place] [facility] [address] [id number] [place] [address]- [address] Aug, [facility] [place] [facility] [address] [id number] [place] [address]- [address] Aug, [facility] [facility] [address] [id number] [place] [address] Jul, [facility] [place] [facility] [address] [id number] [place] [address] Jul, [facility] [place] [facility] [address] [id number] [place] [address] Jul, [facility] [place] [facility] [address] [id number] [place] [address] Jul, [facility] [place] [facility] [address] [id number] [place] [address] Jul, [facility] [place] [facility] [address] [id number] [place] [address] Jul, [facility] [place] [facility] [address] [id number] [place] [address] Jun, [facility] [address] [id number] [place] [address] Jun, [facility] [place] [facility] [address] [id number] [place] [address] May, [facility] [address] [id number] [place] [address] Apr, [facility] [facility] [address] [id number] [place] [address] Apr, [facility] [address] [id number] [place] [address] Apr, [facility] [address] [id number] [place] [address] Apr, [facility] [address] [id number] [place] [address] Apr, [facility] [address] [id number] [place] [address] Mar, [facility] [address] [id number] [place] [address] Mar, [facility] [address] [id number] [place] [address] January, [facility] [address] [id number] [place] [address] January, [facility] [address] [id number] [place] [address] Nov, [facility] [place] [facility] [address] [id number] [place] [address] Oct, [facility] [facility] [address] [id number] [place] [address] Sep, [facility] [address] [id number] [place] [address] Sep, [facility] [place] [facility] [address] [id number] [place] [address] Sep, [facility] [place] [facility] [address] [id number] [place] [address] Sep, [facility] [place] [facility] [address] [id number] [place] [address] Sep, [facility] [place] [facility] [address] [id number] [place] [address] Sep, [facility] [facility] [address] [id number] [place] [address] Aug, [facility] [facility] [address] [id number] [place] [address] Aug, [facility] [place] [facility] [address] [id number] [place] [address] Aug, [facility] [place] [facility] [address] [id number] [place] [address] Aug, [facility] [facility] [address] [id number] [place] [address] Aug, [facility] [facility] [address] [id number] [address] Jul, [facility] [address] [id number] [place] [address] Jul, [facility] [address] [id number], [place] [address] Jul, [facility] [facility] [address] [id number] [place] [address] Jun, [facility] [facility] [address] [id number] [place] [address] Jun, [facility] [facility] [address] [id number] [place] [address] Jun, [facility] [place] [facility] [address] [id number] [address] January, [facility] [id number], [place] [address] Dec, [facility] [id number], [place] [address] Oct, [facility] [id number], [place] [address] Oct, [facility] [id number], [place] [address] Jun, [facility] [id number], [place] [address] Aug, [facility] [id number], [place] [address] Aug, [facility] [address], [place] [address] Jul, [facility] [id number], [place] [address] Mar, IMMUNIZATIONS No Known Immunizations SOCIAL HISTORY Never Assessed REASON FOR VISIT Prior Authorization Request PLAN OF CARE VITAL SIGNS MEDICATIONS Medication Instructions Dosage Frequency Start Date End Date Duration Status Advair Diskus 500-50 MCG/DOSE Inhalation Twice a day 1 puffs by Inhalation route 2 times per day 12h 30 Unknown Enalapril Maleate 10 mg Orally twice a day 1 tablet 12h Nov, 30 day(s) Unknown Colace 100 mg Orally 2 times a day 1 capsule as needed 12h Unknown [place]-3 Fatty Acids 1000 MG Orally Once a day 2 capsules 24h Unknown Acidophilus 100 mg Orally Once a day 1 capsule 24h 18 May, 2017 Unknown Ranitidine HCl 150 MG 1 tablet 12h Unknown Colcord 5-325 MG Orally every 6 hrs 1 tablet as needed 6h 12 Nov, 2017 28 days Unknown Dicyclomine HCl 20 mg Orally Four times a day PRN 1 tablet 30 Unknown Omeprazole 20 mg 2 capsules 24h Unknown Enalapril Maleate 20 MG Orally Once a day 1 tablet 24h Nov, 30 day(s) Active Atenolol 100 mg 0.5 tablet by Oral route 2 times per day 12h Unknown Cyanocobalamin 1000 MCG/ML Injection once monthly 1ML Unknown Albuterol Sulfate (2.5 MG/3ML) 0.083% Inhalation every 4 hrs 3 ml 4h 29 Oct Unknown ProAir HFA 108 (90 Base) MCG/ACT 2 puffs as needed 6h Unknown Cetirizine HCl 10 mg 1 tablet 24h 30 Unknown Norvasc 5 MG Orally Once a day 1 tablet 24h Active Aspirin 325 MG Orally Once a day 1 tablet 24h Unknown Fluticasone Propionate 50 MCG/ACT Nasally 2 times a day 1 spray in each nostril 12h 30 days Unknown Amiodarone HCl 200 MG Orally Once a day 1 tablet 24h Unknown Ibuprofen 600 MG Orally every 6 hrs 1 tablet with food or milk as needed 6h Unknown Seroquel 50 mg Orally Once a day 1 tablet 24h 14 Nov, 2017 30 day(s) Unknown Cholecalciferol 5000 UNIT Orally Once a day, voucher 1st script 1 capsule Oct, Dec, 30 day(s) Unknown Guaifenesin 400 mg Orally every 4 hrs 1 tablet as needed 4h Sep, Unknown Xanax 0.5 MG Orally 3 times a day as needed 1 tablet Nov, 28 days Unknown Vitamin D3 1000 UNIT Orally twice a day 1 capsule 12h Unknown Gas-X 80 MG Orally 2 times a day 1 tablet as needed 12h Unknown RESULTS No Results PROCEDURES No Known procedures INSTRUCTIONS MEDICATIONS ADMINISTERED No Known Medications MEDICAL (GENERAL) HISTORY Type Description Date Medical History Hypertension Medical History Chronic Obstructive pulmonary disease diagnosed 2008 in [place]-PFT not done previously Medical History Gastrointestinal disorder [...]
--- OUTSIDE RECORDS SUMMARY | 2018-08-21 15:42 | XMS REPORT ---
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 Active 3821035034917 Problem Agoraphobia with panic attacks F40.01 Active 033613204 Problem COPD with exacerbation J44.1 Active 666238359 Problem Pericardial effusion I31.3 Active 475423775 Problem Pleural effusion on left J90 Active 28608901 Problem Generalized anxiety disorder F41.1 Active 39130224 Problem Chronic obstructive pulmonary disease, unspecified COPD type J44.9 Active 69908533 Problem Hypertension, benign I10 Active 06967608 Problem Oral phase dysphagia R13.11 Active 998438029 Problem Vitamin B 12 deficiency E53.8 Active 37605055 Problem Chronic fatigue R53.82 Active 61839016 ALLERGIES No Information ENCOUNTERS Encounter Location Date Diagnosis [facility] [id number], [place] [address] Mar, Flank pain R10.9 [facility] [id number] [place] [address] 59677- 1378 Mar, [facility] [id number] [place] [address] 17822- 7913 Feb, Coronary artery disease involving pilot point coronary 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 pectoris I25.10 ; Vitamin B 12 deficiency E53.8 ; Slow transit constipation K59.01 ; Generalized anxiety disorder F41.1 and Breast cancer screening by mammogram Z12.31 [facility] [address], [place] [address] Feb, Flank pain R10.9 [facility] [address], [place] [address] January, [facility] [id number] [place] [address] 51625- 3298 January, Chronic obstructive pulmonary disease, unspecified COPD type J44.9 ; Pleural effusion on left J90 ; Pericardial effusion I31.3 and Generalized anxiety disorder F41.1 [facility] [id number] [place] [address] 62525- 6473 January, Gastroenteritis K52.9 [facility] [address], [place] [address] January, Flank pain R10.9 [facility] [address], [place] [address] January, [address] [id number] [place] [address] Dec [facility] [address], [place] [address]- 4679 Dec, [facility] [address], [place] [address]- 3975 Dec, [facility] [address], [place] [address] 8257 Dec, [facility] [address], [place] [address] 1545 Dec, [facility] [id number] [address]34 Dec, Flank pain R10.9 [facility] [address], [place] [address]- 4665 Dec, [facility] [id number] [place] [address] 12960- 5433 Nov, [facility] [id number] [place] [address] 84322- 0084 Nov, [facility] [id number] [place] [address] 03454- 1304 Nov, [facility] [id number] [place] [address] 20145- 9158 14 Nov, 2017 Pericardial effusion I31.3 ; Agoraphobia with panic attacks F40.01 and Vitamin B 12 deficiency E53.8 [facility] [id number] [place] [address] 26928- 8600 Nov, [facility] [id number] [place] [address] 31716- 6392 Nov, Pneumonia of both lungs due to infectious organism, unspecified part of lung J18.9 and Flank pain R10.9 [facility] [id number] [place] [address] 97328- 0270 Nov, Pneumonia of both lungs due to infectious organism, unspecified part of lung J18.9 and Gastroenteritis K52.9 [facility] [id number] [place] [address] 63386- 1876 Oct, Pneumonia of both lungs due to infectious organism, unspecified part of lung J18.9 and Vitamin B 12 deficiency E53.8 [facility] [id number] [place] [address] [id number] 16 Oct, 2017 [facility] [id number] [place] [address] 25158- 1165 Oct, [facility] [id number] [place] [address] 65873- 5708 Oct, [facility] [id number] [place] [address] 49623- 1667 Oct, Flank pain R10.9 [facility] [id number] [place] [address] 22967- 8175 Oct, Other chronic pain G89.29 and Unspecified abdominal pain R10.9 [facility] [address] [address]- 3074 Sep, Flank pain R10.9 [facility] [id number] [place] [address] 72162- 0304 Sep, [facility] [address] 32626- 1105 Sep, [facility] [id number] [place] [address] 61151- 3709 Sep, Acute non-recurrent maxillary sinusitis J01.00 [facility] [id number] [place] [address] 52209- 6210 Sep, Acute non-recurrent maxillary sinusitis J01.00 and Vitamin B 12 deficiency E53.8 [facility] [address] 56483- 8898 Sep, [facility] [id number] [place] [address] 18051- 5673 Sep, [facility] [id number] [place] [address] 26293- 8202 Sep, [facility] [id number] [place] [address] 78300- 6988 Sep, COPD with exacerbation J44.1 [facility] [address] 90650- 4773 Sep, Chronic obstructive pulmonary disease, unspecified COPD type J44.9 [facility] [id number] [place] [address] 10644- 9436 Aug, Flank pain R10.9 [facility] [id number] [place] [address] 88625- 1298 Jul, Flank pain R10.9 and Vitamin B 12 deficiency E53.8 [facility] [id number] [place] [address] 74406- 8680 Jul, [facility] [address] 90770- 8805 Jun, Gastroenteritis K52.9 [facility] [address] 27371- 7727 May, Gastroenteritis K52.9 and Vitamin B 12 deficiency E53.8 [facility] [address] 33372- 2434 Apr, Allergic conjunctivitis of left eye H10.12 and Chronic fatigue R53.82 [facility] [address] 11559- 6695 Apr, Chronic sinusitis, unspecified J32.9 [facility] [address] 08136- 0376 Apr, [facility] [address] 48602- 0156 Feb, [facility] [address] 04480- 1969 January, [facility] [address] 22346- 8419 Dec, [facility] [id number] [place] [address] 88429- 6285 Oct, [facility] [id number] [place] [address] 87471- 5126 Sep, Oral phase dysphagia R13.11 and Vitamin B 12 deficiency E53.8 [facility] [address] 08322- 3318 Sep, [facility] [id number] [place] [address] 75509- 8608 Jul, [facility] [address] 53592- 1385 Jul, [facility] [id number] [place] [address] 48655- 8842 Jun, Bronchitis J40 ; Generalized anxiety disorder F41.1 and Chronic obstructive pulmonary disease, unspecified COPD type J44.9 [facility] [id number] [place] [address] 39396- 1853 Jun, [facility] [address] 02932- 2667 Jun, [facility] [id number] [place] [address] 46636- 5593 Jun, [facility] [address] 60635- 7295 May, Vitamin B 12 deficiency E53.8 ; Essential (primary) hypertension I10 ; Generalized anxiety disorder F41.1 ; Pain in joint, ankle and foot 719.47 ; Arthritis M19.90 ; Chronic obstructive pulmonary disease, unspecified COPD type J44.9 and Encounter for immunization Z23 [facility] [id number] [place] [address] 84691- 8398 Apr, [facility] [id number] [place] [address] 37754- 9685 Apr, [facility] [id number] [place] [address] 48623- 0603 Mar, [facility] [id number] [place] [address] 69753- 0205 January, [facility] [id number] [place] [address] 55601- 6527 Dec, [facility] [id number] [place] [address] 37626- 0094 Oct, [facility] [id number] [place] [address] 96967- 4715 Oct, [facility] [address] 49038- 8999 Oct, Hypertension, benign I10 and Vitamin B 12 deficiency E53.8 [facility] [id number] [place] [address] 30267- 2417 Oct, [facility] [id number] [place] [address] 93218- 8585 Oct, [facility] [id number] [place] [address] 95421- 3925 Oct, Irritable bowel syndrome with diarrhea K58.0 [facility] [id number] [place] [address] 00059- 9866 Oct, [facility] [id number] [place] [address] 34637- 3576 Oct, Vitamin B 12 deficiency E53.8 ; Hypertension, benign I10 and Chronic obstructive pulmonary disease, unspecified COPD type J44.9 [facility] [id number] [place] [address] 49745- 8157 Sep, Irritable bowel syndrome with diarrhea K58.0 ; Hypertension , benign I10 ; Chronic obstructive pulmonary disease, unspecified COPD type J44.9 ; Edema, unspecified type R60.9 ; Vision changes H53.9 and Vitamin B 12 deficiency E53.8 [facility] [id number] [place] [address] 19551- 4917 Sep, [facility] [id number] [place] [address] 59077- 2362 Jul, Degenerative disc disease 722.6 [facility] [id number] [place] [address] 84501- 2742 Jun, Pain in right leg M79.604 ; Encounter for immunization Z23 and Pain of left leg M79.605 [facility] [id number] [place] [address] 54905- 6675 Jun, [facility] [address] 83019- 9924 Jun, [facility] [address] [place] [address] 11795- 7592 Jun, Degenerative disc disease 722.6 [facility] [id number] [place] [address] 31872- 9562 Jun, [facility] [id number] [place] [address] 04707- 6253 28 May, 2015 Seizures 780.39 and Autonomic peripheral neuropathy 337.9 [facility] [id number] [place] [address] 26218- 1941 18 May, 2015 [facility] [id number] [place] [address] 54233- 7698 17 May, 2015 [facility] [id number] [place] [address] 44195- 7601 08 May, 2015 Degenerative disc disease 722.6 [facility] [id number] [place] [address] 04571- 7031 May, [facility] [id number] [place] [address] 83981- 7693 Mar, [facility] [id number] [place] [address] 54476- 1765 Mar, Degenerative disc disease 722.6 ; Spinal stenosis 724.00 and HTN (hypertension) 401.9 [facility] [id number] [place] [address] 85767- 2155 Feb, Cutaneous horn 702.8 [facility] [id number] [place] [address] 53362- 9246 Feb, Fatigue 780.79 [facility] [id number] [place] [address] 91630- 2663 Feb, Fatigue 780.79 ; Arthritis 716.90 ; Spinal stenosis 724.00 ; Sinusitis 473.9 and Cutaneous horn 702.8 [facility] [id number] [place] [address] 18630- 2896 January, [facility] [place] [facility] [address] [id number] [place] [address]- 6864 Dec, [facility] [place] [facility] [address] [id number] [place] [address]- 6406 Dec, [facility] [place] [facility] [address] [facility] [id number] [place] [address]- 4949 Nov, [facility] [place] [facility] [address] [id number] [place] [address]- 1934 Nov, [facility] [place] [facility] [address] [id number] [place] [address]- 9763 Oct, [facility] [place] [facility] [address] [id number] [place] [address]- 5843 Oct, [facility] [place] [facility] [address] [facility] [id number] [place] [address]- 5927 Oct, [facility] [place] [facility] [address] [facility] [id number] [place] [address]- 4385 Oct, [facility] [place] [facility] [address] [facility] [id number] [place] [address]- 9646 Oct, [facility] [place] [facility] [address] [facility] [id number] [place] [address]- 7119 Oct, [facility] [place] [facility] [address] [facility] [id number] [place] [address]- 2080 Sep, [facility] [place] [facility] [address] [id number] [address]- 2981 Sep, [facility] [place] [facility] [address] [id number], [place] [address]- 9737 Sep, [facility] [place] [facility] [address] [facility] [id number], [place] [address]- 4883 Sep, [facility] [place] [facility] [address] [facility] [id number], [place] [address]- 1342 Sep, [facility] [place] [facility] [address] [id number] [place] [address]- 4841 Sep, [facility] [place] [facility] [address] [id number] [place] [address]- 6279 Sep, [facility] [place] [facility] [address] [id number] [place] [address]- 5335 Sep, [facility] [place] [facility] [address] [id number] [place] [address]- 5791 Sep, [facility] [place] [facility] [address] [id number] [place] [address]- 8943 Sep, [facility] [place] [facility] [address] [id number] [place] [address]- 6615 Sep, [facility] [place] [facility] [address] [id number] [place] [address]- 5246 Sep, [facility] [place] [facility] [address] [id number] [place] [address]- 1545 Sep, [facility] [place] [facility] [address] [id number] [place] [address]- 6999 Sep, [facility] [place] [facility] [address] [id number] [place] [address]- 1039 Aug, [facility] [place] [facility] [address] [id number] [place] [address]- 4705 Aug, [facility] [place] [facility] [address] [id number] [place] [address]- 7300 Aug, [facility] [place] [facility] [address] [id number] [place] [address]- 8315 Aug, [facility] [place] [facility] [address] [id number] [place] [address]- 4458 Jul, [facility] [place] [facility] [address] [id number] [place] [address]- 9448 Jul, [facility] [place] [facility] [address] [id number] [place] [address]- 6548 May, [facility] [place] [facility] [address] [id number] [place] [address]- 6477 May, [facility] [place] [facility] [address] [id number] [place] [address]- 1072 May, [facility] [place] [facility] [address] [id number] [place] [address]- 4276 May, [facility] [place] [facility] [address] [id number] [place] [address]- 2654 May, [facility] [place] [facility] [address] [id number] [place] [address]- 7621 May, [facility] [place] [facility] [address] [id number] [place] [address]- 0563 Apr, [facility] [place] [facility] [address] [id number] [place] [address]- 4622 Apr, [facility] [place] [facility] [address] [id number] [place] [address]- 9883 Mar, [facility] [place] [facility] [address] [id number] [place] [address]- 8919 Mar, [facility] [place] [facility] [address] [id number] [place] [address]- 2162 Mar, [facility] [place] [facility] [address] [id number] [place] [address]- 8983 Mar, [facility] [place] [facility] [address] [id number], [place] [address]- 5897 Mar, [facility] [place] [facility] [address] [id number] [place] [address]- 0852 Mar, [facility] [place] [facility] [address] [id number] [place] [address]- 7458 Mar, [facility] [place] [facility] [address] [id number] [place] [address]- 6697 Mar, [facility] [place] [facility] [address] [id number] [place] [address]- 6623 Feb, [facility] [address] [id number] [place] [address]- 8586 Feb, [facility] [place] [facility] [address] [id number] [place] [address]- 6813 January, [facility] [place] [facility] [address] [id number] [place] 8761 January, [facility] [place] [facility] [address] [id number] [place] [address]- 5514 January, [facility] [place] [facility] [address] [id number] [place] [address]- 9517 January, [facility] [place] [facility] [address] [id number] [place] [address]- 1759 Dec, [facility] [place] [facility] [address] [id number] [place] [address]- 7000 Dec, [facility] [place] [facility] [address] [id number] [place] [address]- 0728 Oct, [facility] [place] [facility] [address] [id number] [place] [address]- 7639 Oct, [facility] [place] [facility] [address] [id number] [place] [address]- 2198 Oct, [facility] [place] [facility] [address] [id number] [place] [address]- 9676 Oct, [facility] [place] [facility] [address] [id number] [place] [address]- 1134 Sep, [facility] [place] [facility] [address] [id number] [place] 1269 Sep, [facility] [place] [facility] [address] [id number] [place] [address]- 9868 Aug, [facility] [place] [facility] [address] [id number] [place] 9162 Aug, [facility] [place] [facility] [address] [id number] [place] [address]- 4275 Aug, [facility] [place] [facility] [address] [id number] [place] [address]- 4515 Aug, [facility] [place] [facility] [address] [id number] [place] 2174 Aug, [facility] [place] [facility] [address] [id number] [place] [address]- 2793 Aug, [facility] [place] [facility] [address] [id number] [place] [address]- 6069 Aug, [facility] [place] [facility] [address] [id number] [place] [address]- 2125 Aug, [facility] [place] [facility] [address] [id number] [place] 1170 Aug, [facility] [place] [facility] [address] [id number] [place] [address]- 8624 Aug, [facility] [place] [facility] [address] [id number] [place] [address]- 4754 Jul, [facility] [place] [facility] [address] [id number] [place] [address]- 4546 Jul, [facility] [place] [facility] [address] [id number], [place] [address]- 2649 Jun, [facility] [place] [facility] [address] [id number], [place] [address]- 0852 Jun, [facility] [place] [facility] [address] [id number] [place] [address]- 6959 Jun, [facility] [place] [facility] [address] [id number] [place] [address]- 9736 Jun, [facility] [place] [facility] [address] [id number] [place] [address]- 4335 Jun, [facility] [place] [facility] [address] [id number] [place] [address]- 4059 13 May, 2012 [facility] [address] [id number] [place] [address]- 6836 13 May, 2012 [facility] [place] [facility] [address] [id number] [place] [address]- 3478 12 May, 2013 [facility] [address] [id number] [place] [address]- 6517 06 May, 2012 [facility] [place] [facility] [address] [id number] [place] [address] 03 May, 2013 [facility] [address] [id number] [place] [address] Apr, [facility] [place] [facility] [address] [id number] [place] [address] Mar, [facility] [address] [id number] [place] [address] Mar, [facility] [address] [id number] [place] [address] Mar, [facility] [address] [id number] [place] [address] Mar, [facility] [address] [id number] [place] [address] Mar, [facility] [address] [id number] [place] [address] Mar, [facility] [place] [facility] [address] [id number] [place] [address] Mar, [facility] [place] [facility] [address] [id number] [place] [address] Mar, [facility] [place] [facility] [address] [id number] [place] [address] Mar, [facility] [place] [facility] [address] [id number] [place] [address] Feb, [facility] [place] [facility] [address] [id number] [place] [address] 17 Feb, 2013 [facility] [address] [id number] [place] [address] Feb, [facility] [address] [id number] [place] [address] January, [facility] [address] [id number] [place] [address] January, [facility] [address] [id number] [place] [address] January, [facility] [address] [id number] [place] [address] January, [facility] [address] [id number] [place] [address] Dec, [facility] [address] [id number] [place] [address] Dec, [facility] [address] [id number] [place] [address] Dec, [facility] [address] [id number] [place] [address] Dec, [facility] [address] [id number] [place] [address] Dec, [facility] [address] [id number] [place] [address] Dec, [facility] [address] [id number] [place] [address] Nov, [facility] [place] [facility] [address] [id number] [place] [address] Oct, [facility] [place] [facility] [address] [id number] [place] [address] Aug, [facility] [address] [id number] [place] [address] Aug, [facility] [place] [facility] [address] [id number] [place] [address] 17 Aug, 2012 [facility] [place] [facility] [address] [id number] [place] [address] Aug, [facility] [place] [facility] [address] [facility] [id number] [place] [address]16 Aug, [facility] [place] [facility] [address] [id number] [place] [address] Aug, [facility] [place] [facility] [address] [id number] [place] [address] Aug, [facility] [place] [facility] [address] [id number] [place] [address] Aug, [facility] [place] [facility] [address] [id number] [place] [address] Aug, [facility] [place] [facility] [address] [id number] [place] [address] Aug, [facility] [place] [facility] [address] [id number] [place] [address] Aug, [facility] [place] [facility] [address] [id number] [place] [address] Jul, [facility] [place] [facility] [address] [id number] [address] 30 Jul, 2012 [facility] [place] [facility] [address] [id number], [place] [address] Jul, [facility] [place] [facility] [address] [id number] [place] [address] Jul, [facility] [place] [facility] [address] [facility] [id number] [place] [address] Jul, [facility] [place] [facility] [address] [facility] [id number] [place] [address] Jul, [facility] [place] [facility] [address] [id number] [place] [address] Jun, [facility] [address] [id number] [place] [address] Jun, [facility] [place] [facility] [address] [id number] [place] [address] May, [facility] [address] [id number] [place] [address] Apr, [facility] [place] [facility] [address] [id number] [place] [address] Apr, [facility] [address] [id number] [place] [address] Apr, [facility] [address] [id number] [place] [address] Apr, [facility] [address] [id number] [place] [address] Apr, [facility] [address] [id number] [place] [address] Mar, [facility] [place] [facility] [address] [id number] [place] [address] Mar, [facility] [address] [id number] [place] [address] January, [facility] [place] [facility] [address] [id number] [place] [address] January, [facility] [address] [id number] [place] [address] Nov, [facility] [place] [facility] [address] [id number] [place] [address] Oct, [facility] [place] [facility] [address] [id number] [place] [address] Sep, [facility] [place] [facility] [address] [id number] [place] [address] Sep, [facility] [address] [id number] [place] [address] Sep, [facility] [place] [facility] [address] [id number] [place] [address] Sep, [facility] [place] [facility] [address] [id number] [place] [address] Sep, [facility] [place] [facility] [address] [id number] [place] [address] Sep, [facility] [place] [facility] [address] [id number] [place] [address] Aug, [facility] [place] [facility] [address] [id number] [place] [address] Aug, [facility] [place] [facility] [address] [id number] [place] [address] Aug, [facility] [place] [facility] [address] [id number] [place] [address] Aug, [facility] [place] [facility] [address] [id number] [place] [address] Aug, [facility] [place] [facility] [address] [id number], [place] [address] Jul, [facility] [place] [facility] [address] [id number], [place] [address] Jul, [facility] [place] [facility] [address] [id number], [place] [address] Jul, [facility] [place] [facility] [address] [id number] [place] [address] Jun, [facility] [place] [facility] [address] [id number] [place] [address] Jun, [facility] [place] [facility] [address] [id number], [place] [address] Jun, [facility] [place] [facility] [address] [id number], [place] [address] January, [facility] [address] [id number], [place] [address] Dec, [facility] [id number], [place] [address] Oct, [facility] [id number], [place] [address] Oct, [facility] [id number], [place] [address] Jun, [facility] [id number] [place] [address] Aug, [facility] [id number], [place] [address] Aug, [facility] [id number], [place] [address] Jul, [facility] [address] [id number], [place] [address] Mar, IMMUNIZATIONS No Known Immunizations SOCIAL HISTORY Never Assessed REASON FOR VISIT Controlled Med Refill PLAN OF CARE VITAL SIGNS MEDICATIONS Medication Instructions Dosage Frequency Start Date End Date Duration Status Xanax 0.5 MG Orally 3 times a day as needed 1 tablet Nov, 28 days Active [place] 5-325 MG Orally every 6 hrs 1 tablet as needed 6h Nov, 28 days Active RESULTS No Results PROCEDURES No Known procedures INSTRUCTIONS MEDICATIONS ADMINISTERED No Known Medications MEDICAL (GENERAL) HISTORY Type Description Date Medical History Hypertension Medical History Chronic Obstructive pulmonary disease diagnosed 2008 in [place]-PFT not done previously Medical History Gastrointestinal disorder [...]
--- OUTSIDE RECORDS SUMMARY | 2018-08-21 15:43 | XMS REPORT ---
Author Author KAITLIN TURNER Organization [facility] Address [address] 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 I25.10 Active 2869720236305 Problem Agoraphobia with panic attacks F40.01 Active 426021225 Problem COPD with exacerbation J44.1 Active 998517458 Problem Pericardial effusion I31.3 Active 704773370 Problem Pleural effusion on left J90 Active 74446880 Problem Generalized anxiety disorder F41.1 Active 25317880 Problem Chronic obstructive pulmonary disease, unspecified COPD type J44.9 Active 95172531 Problem Hypertension, benign I10 Active 53563688 Problem Oral phase dysphagia R13.11 Active 441836835 Problem Vitamin B 12 deficiency E53.8 Active 70740151 Problem Chronic fatigue R53.82 Active 79935831 ALLERGIES No Information ENCOUNTERS Encounter Location Date Diagnosis [facility] [id number] [address] Mar, Flank pain R10.9 [facility] [id number], [place] [address] Mar, [facility] [id number] [place] [address] 90745- 9618 Feb, Coronary artery disease involving la posta coronary artery of [place] posta heart without angina pectoris I25.10 ; Vitamin B 12 deficiency E53.8 ; Slow transit constipation K59.01 ; Generalized anxiety disorder F41.1 and Breast cancer screening by mammogram Z12.31 [facility] [address], [place] [address] Feb, Flank pain R10.9 [facility] [address], [place] [address] January, [facility] [address] [address] January, Chronic obstructive pulmonary disease, unspecified COPD type J44.9 ; Pleural effusion on left J90 ; Pericardial effusion I31.3 and Generalized anxiety disorder F41.1 [facility] [address], [place] [address] January, Gastroenteritis K52.9 [facility] [address], [place] [address] January, Flank pain R10.9 [facility] [address], [place] [address] January, [address] [id number] [place] [address] Dec [facility] [address] [address] Dec, [facility] [id number], [place] [address] 8663 Dec, [facility] [id number], [place] [address] 9236 Dec, [facility] [address] [facility] [id number] [address] Dec, [facility] [address], [place] [address] Dec, Flank pain R10.9 [facility] [id number] [address] 65[address] Dec, [facility] [id number] [place] [address] 83054- 0491 Nov, [facility] [id number] [place] [address] 48816- 7186 Nov, [facility] [id number] [place] [address] 68612- 9295 Nov, [facility] [id number] [place] [address] 73351- 6579 14 Nov, 2017 Pericardial effusion I31.3 ; Agoraphobia with panic attacks F40.01 and Vitamin B 12 deficiency E53.8 [facility] [id number] [place] [address] 84897- 3020 Nov, [facility] [id number] [place] [address] 99239- 5624 Nov, Pneumonia of both lungs due to infectious organism, unspecified part of lung J18.9 and Flank pain R10.9 [facility] [id number] [place] [address] 93459- 2839 Nov, Pneumonia of both lungs due to infectious organism, unspecified part of lung J18.9 and Gastroenteritis K52.9 [facility] [id number] [place] [address] 69194- 9417 Oct, Pneumonia of both lungs due to infectious organism, unspecified part of lung J18.9 and Vitamin B 12 deficiency E53.8 [facility] [id number] [place] [address] [id number] Oct, [facility] [id number] [place] [address] 57921- 3938 Oct, [facility] [id number] [place] [address] 90437- 3989 Oct, [facility] [id number] [place] [address] 02511- 6747 Oct, Flank pain R10.9 [facility] [id number] [place] [address] 57703- 1250 Oct, Other chronic pain G89.29 and Unspecified abdominal pain R10.9 [facility] [address] [address]- [address]20 Sep, Flank pain R10.9 [facility] [id number] [place] [address] 30282- 4748 Sep, [facility] [address] 94263- 0206 Sep, [facility] [id number] [place] [address] 33865- 8974 Sep, Acute non-recurrent maxillary sinusitis J01.00 [facility] [id number] [place] [address] 60645- 7491 Sep, Acute non-recurrent maxillary sinusitis J01.00 and Vitamin B 12 deficiency E53.8 [facility] [id number] [place] [address] 06083- 0926 Sep, [facility] [id number] [place] [address] 06528- 7914 Sep, [facility] [id number] [place] [address] 99037- 4072 Sep, [facility] [id number] [place] [address] 92274- 0319 Sep, COPD with exacerbation J44.1 [facility] [id number] [place] [address] 23262- 1402 Sep, Chronic obstructive pulmonary disease, unspecified COPD type J44.9 [facility] [id number] [place] [address] 92659- 7570 Aug, Flank pain R10.9 [facility] [id number] [place] [address] 72022- 4847 Jul, Flank pain R10.9 and Vitamin B 12 deficiency E53.8 [facility] [id number] [place] [address] 64369- 7610 Jul, [facility] [address] 75655- 3970 Jun, Gastroenteritis K52.9 [facility] [id number] [place] [address] 61295- 1898 May, Gastroenteritis K52.9 and Vitamin B 12 deficiency E53.8 [facility] [address] 84391- 7189 Apr, Allergic conjunctivitis of left eye H10.12 and Chronic fatigue R53.82 [address] [address] 11565- 2851 Apr, Chronic sinusitis, unspecified J32.9 [place] [address] 79138- 8300 Apr, [facility] [id number] [place] [address] 77573- 4910 Feb, [facility] [id number] [place] [address] 35261- 8195 January, [facility] [id number] [place] [address] 38373- 1810 Dec, [facility] [id number] [place] [address] 82153- 1803 Oct, [facility] [id number] [place] [address] 71530- 0350 Sep, Oral phase dysphagia R13.11 and Vitamin B 12 deficiency E53.8 [facility] [id number] [place] [address] 10173- 7717 Sep, [facility] [id number] [place] [address] 25432- 2877 Jul, [facility] [id number] [place] [address] 34552- 9829 Jul, [facility] [id number] [place] [address] 40342- 0263 Jun, Bronchitis J40 ; Generalized anxiety disorder F41.1 and Chronic obstructive pulmonary disease, unspecified COPD type J44.9 [facility] [id number] [place] [address] 19304- 4042 Jun, [facility] [address] 40523- 3971 Jun, [facility] [id number] [place] [address] 33421- 5282 Jun, [facility] [address] 21757- 3104 May, Vitamin B 12 deficiency E53.8 ; Essential (primary) hypertension I10 ; Generalized anxiety disorder F41.1 ; Pain in joint, ankle and foot 719.47 ; Arthritis M19.90 ; Chronic obstructive pulmonary disease, unspecified COPD type J44.9 and Encounter for immunization Z23 [facility] [id number] [place] [address] 70117- 3332 Apr, [facility] [id number] [place] [address] 05954- 0518 Apr, [facility] [id number] [place] [address] 86836- 9714 Mar, [facility] [id number] [place] [address] 28322- 1038 January, [facility] [id number] [place] [address] 49079- 0913 Dec, [facility] [address] 27334- 7438 Oct, [facility] [id number] [place] [address] 26888- 6860 Oct, [facility] [address] 36074- 6173 Oct, Hypertension, benign I10 and Vitamin B 12 deficiency E53.8 [place] [id number] [place] [address] 40695- 8914 Oct, [place] [id number] [place] [address] 74403- 0893 Oct, [address] [address] 15210- 2849 Oct, Irritable bowel syndrome with diarrhea K58.0 [place] [id number] [place] [address] 50881- 6875 Oct, [address] [id number] [place] [address] 12990- 5503 Oct, Vitamin B 12 deficiency E53.8 ; Hypertension, benign I10 and Chronic obstructive pulmonary disease, unspecified COPD type J44.9 [place] [id number] [place] [address] 57306- 4473 Sep, Irritable bowel syndrome with diarrhea K58.0 ; Hypertension , benign I10 ; Chronic obstructive pulmonary disease, unspecified COPD type J44.9 ; Edema, unspecified type R60.9 ; Vision changes H53.9 and Vitamin B 12 deficiency E53.8 [place] [id number] [place] [address] 11401- 2879 Sep, [place] [id number] [place] [address] 33686- 0070 Jul, Degenerative disc disease 722.6 [place] [id number] [place] [address] 99286- 2311 Jun, Pain in right leg M79.604 ; Encounter for immunization Z23 and Pain of left leg M79.605 [place] [id number] [place] [address] 11866- 0589 Jun, [place] [address] 02108- 7787 Jun, [facility] [id number] [place] [address] 44042- 3874 Jun, Degenerative disc disease 722.6 [facility] [id number] [place] [address] 60142- 6469 Jun, [facility] [id number] [place] [address] 21727- 7700 28 May, 2015 Seizures 780.39 and Autonomic peripheral neuropathy 337.9 [facility] [id number] [place] [address] 03690- 4386 18 May, 2015 [facility] [address] 23759- 8527 17 May, 2015 [facility] [id number] [place] [address] 43004- 2276 08 May, 2015 Degenerative disc disease 722.6 [facility] [id number] [place] [address] 13051- 5939 08 May, 2015 [facility] [id number] [place] [address] 36889- 1122 Mar, [facility] [id number] [place] [address] 95142- 4438 Mar, Degenerative disc disease 722.6 ; Spinal stenosis 724.00 and HTN (hypertension) 401.9 [facility] [id number] [place] [address] 78039- 9044 Feb, Cutaneous horn 702.8 [facility] [id number] [place] [address] 79561- 3007 Feb, Fatigue 780.79 [facility] [id number] [place] [address] 05671- 1750 Feb, Fatigue 780.79 ; Arthritis 716.90 ; Spinal stenosis 724.00 ; Sinusitis 473.9 and Cutaneous horn 702.8 [facility] [id number] [place] [address] 50746- 4832 January, [facility] [place] [facility] [address] [id number] [place] [address]- 5990 Dec, [facility] [place] [facility] [address] [id number] [place] [address]- 3989 Dec, [facility] [place] [facility] [address] [facility] [id number] [place] [address]- 2499 Nov, [facility] [place] [facility] [address] [id number] [place] [address]- 5859 Nov, [facility] [place] [facility] [address] [id number] [place] [address]- 0061 Oct, [facility] [place] [facility] [address] [id number] [place] [address]- 7346 Oct, [facility] [place] [facility] [address] [facility] [id number] [place] [address]- 9671 Oct, [facility] [place] [facility] [address] [facility] [id number] [place] [address]- 5742 Oct, [facility] [place] [facility] [address] [id number] [place] [address]- 1412 Oct, [facility] [place] [facility] [address] [facility] [id number] [place] [address]- 7561 Oct, [facility] [place] [facility] [address] [facility] [id number] [place] [address]- 6439 Sep, [facility] [place] [facility] [address] [id number] [place] [address]- 0757 Sep, [facility] [place] [facility] [address] [id number] [place] [address]- 7297 Sep, [facility] [place] [facility] [address] [facility] [id number] [place] [address]- 4531 Sep, [facility] [place] [facility] [address] [facility] [id number] [address]- 1332 Sep, [facility] [place] [facility] [address] [id number] [place] [address]- 5373 Sep, [facility] [place] [facility] [address] [id number] [place] [address]- 2895 Sep, [facility] [place] [facility] [address] [id number] [place] [address]- 5347 Sep, [facility] [place] [facility] [address] [id number] [place] [address]- 9972 Sep, [facility] [place] [facility] [address] [id number] [place] [address]- 0218 Sep, [facility] [place] [facility] [address] [id number] [place] [address]- 2036 Sep, [facility] [place] [facility] [address] [id number] [place] [address]- 7729 Sep, [facility] [place] [facility] [address] [id number] [place] [address]- 2265 Sep, [facility] [place] [facility] [address] [id number] [place] [address]- 0902 Sep, [facility] [place] [facility] [address] [id number] [place] [address]- 0708 Aug, [facility] [place] [facility] [address] [id number] [place] [address]- 8788 Aug, [facility] [place] [facility] [address] [id number] [place] [address]- 7585 Aug, [facility] [place] [facility] [address] [id number] [place] [address]- 1545 Aug, [facility] [place] [facility] [address] [id number] [place] [address]- 6412 Jul, [facility] [place] [facility] [address] [id number] [place] [address]- 4909 Jul, [facility] [place] [facility] [address] [id number] [place] [address]- 0536 May, [facility] [place] [facility] [address] [id number] [place] [address]- 0350 May, [facility] [place] [facility] [address] [id number] [place] [address]- 8290 May, [facility] [place] [facility] [address] [id number] [place] [address]- 4450 May, [facility] [place] [facility] [address] [id number] [place] [address]- 4558 May, [facility] [place] [facility] [address] [id number] [place] [address]- 0068 May, [facility] [place] [facility] [address] [id number] [place] [address]- 4796 Apr, [facility] [place] [facility] [address] [id number] [place] [address]- 8523 Apr, [facility] [place] [facility] [address] [id number] [place] [address]- 3355 Mar, [facility] [place] [facility] [address] [id number] [place] [address]- 4789 Mar, [facility] [place] [facility] [address] [id number] [place] [address]- 3701 Mar, [facility] [place] [facility] [address] [id number] [place] [address]- 1425 Mar, [facility] [place] [facility] [address] [id number] [place] [address]- 4762 Mar, [facility] [place] [facility] [address] [id number] [place] [address]- 2401 Mar, [facility] [place] [facility] [address] [id number] [place] [address]- 3477 Mar, [facility] [place] [facility] [address] [id number] [place] [address]- 6042 Mar, [facility] [place] [facility] [address] [id number] [place] [address]- 8819 Feb, [facility] [address] [id number] [place] [address]- 8766 Feb, [facility] [place] [facility] [address] [id number] [place] [address]- 0120 January, [facility] [place] [facility] [address] [id number] [place] [address]- 1617 January, [facility] [place] [facility] [address] [id number] [place] [address]- 8961 January, [facility] [place] [facility] [address] [id number] [place] [address]- 3619 January, [facility] [place] [facility] [address] [id number] [place] [address]- 1732 Dec, [facility] [place] [facility] [address] [id number] [place] [address]- 9698 Dec, [facility] [place] [facility] [address] [id number] [place] [address]- 8961 Oct, [facility] [place] [facility] [address] [id number] [place] [address]- 4039 Oct, [facility] [place] [facility] [address] [id number] [place] [address]- 2845 Oct, [facility] [place] [facility] [address] [id number] [place] [address]- 8625 Oct, [facility] [place] [facility] [address] [id number] [place] [address]- 6844 Sep, [facility] [place] [facility] [address] [id number] [place] [address]- 7360 Sep, [facility] [place] [facility] [address] [id number] [place] [address]- 3370 Aug, [facility] [place] [facility] [address] [id number] [place] [address]- 4692 Aug, [facility] [address] [id number] [place] [address]- 3816 Aug, [facility] [place] [facility] [address] [id number] [place] [address]- 9509 Aug, [facility] [place] [facility] [address] [id number] [place] [address]- 9567 Aug, [facility] [place] [facility] [address] [id number] [place] [address]- 7157 Aug, [facility] [address] [id number] [place] [address]- 8326 Aug, [facility] [place] [facility] [address] [id number] [place] [address]- 6734 Aug, [facility] [place] [facility] [address] [id number] [place] [address]- 1334 Aug, [facility] [place] [facility] [address] [id number] [place] [address]- 8296 Aug, [facility] [place] [facility] [address] [id number] [place] [address]- 8271 Jul, [facility] [place] [facility] [address] [id number], [place] [address]- 2357 Jul, [facility] [place] [facility] [address] [id number], [place] [address]- 7009 Jun, [facility] [place] [facility] [address] [id number], [place] [address]- 6815 Jun, [facility] [place] [facility] [address] [id number], [place] [address] Jun, [facility] [place] [facility] [address] [id number], [place] [address] Jun, [facility] [place] [facility] [address] [facility] [id number], [place] [address] Jun, [facility] [place] [facility] [address] [id number] [place] [address] 13 May, 2012 [facility] [address] [id number] [place] [address] 13 May, 2012 [facility] [place] [facility] [address] [id number] [place] [address] 12 May, 2012 [facility] [address] [id number] [place] [address] 06 May, 2012 [facility] [place] [facility] [address] [id number] [place] [address] 03 May, 2012 [facility] [place] [facility] [address] [id number] [place] [address] Apr, [facility] [place] [facility] [address] [id number] [place] [address] Mar, [facility] [address] [id number] [place] [address] 15 Mar, 2013 [facility] [place] [facility] [address] [id number] [place] [address] Mar, [facility] [place] [facility] [address] [id number] [place] [address] Mar, [facility] [place] [facility] [address] [id number] [place] [address] Mar, [facility] [place] [facility] [address] [id number] [place] [address] Mar, [facility] [place] [facility] [address] [id number] [place] [address] Mar, [facility] [place] [facility] [address] [id number] [place] [address] Mar, [facility] [place] [facility] [address] [id number] [place] [address] Mar, [facility] [place] [facility] [address] [id number] [place] [address] Feb, [facility] [place] [facility] [address] [id number] [place] [address] Feb, [facility] [address] [id number] [place] [address] Feb, [facility] [address] [id number] [place] [address] January, [facility] [address] [id number] [place] [address] January, [facility] [address] [id number] [place] [address] January, [facility] [address] [id number] [place] [address] January, [facility] [address] [id number] [place] [address] Dec, [facility] [address] [id number] [place] [address] Dec, [facility] [address] [id number] [place] [address] Dec, [facility] [address] [id number] [place] [address] Dec, [facility] [address] [id number] [place] [address] Dec, [facility] [address] [id number] [place] [address] Dec, [facility] [address] [id number] [place] [address] Nov, [facility] [address] [id number] [place] [address] Oct, [facility] [address] [id number] [place] [address] Aug, [facility] [address] [id number] [place] [address] Aug, [facility] [place] [facility] [address] [id number] [place] [address] Aug, [facility] [place] [facility] [address] [id number] [place] [address] Aug, [facility] [place] [facility] [address] [address] [id number] [place] [address] Aug, [facility] [place] [facility] [address] [id number] [place] [address] Aug, [facility] [place] [facility] [address] [id number] [place] [address] Aug, [facility] [place] [facility] [address] [id number] [place] [address] Aug, [facility] [place] [facility] [address] [id number] [place] [address] Aug, [facility] [place] [facility] [address] [id number] [place] [address] Aug, [facility] [place] [facility] [address] [id number] [place] [address] Aug, [facility] [place] [facility] [address] [id number] [place] [address] Jul, [facility] [place] [facility] [address] [id number] [place] [address] Jul, [facility] [place] [facility] [address] [id number] [place] [address] Jul, [facility] [place] [facility] [address] [id number] [place] [address] Jul, [facility] [place] [facility] [address] [id number] [place] [address] Jul, [facility] [place] [facility] [address] [id number] [place] [address] 39[address] Jul, [facility] [place] [facility] [address] [id number] [place] [address] Jun, [facility] [address] [id number] [place] [address] Jun, [facility] [place] [facility] [address] [id number] [place] [address] May, [facility] [address] [id number] [place] [address] Apr, [facility] [place] [facility] [address] [id number] [place] [address] Apr, [facility] [address] [id number] [place] [address] Apr, [facility] [address] [id number] [place] [address] Apr, [facility] [address] [id number] [place] [address] Apr, [facility] [address] [id number] [place] [address] Mar, [facility] [place] [facility] [address] [id number] [place] [address] Mar, [facility] [address] [id number] [place] [address] January, [facility] [address] [id number] [place] [address] January, [facility] [address] [id number] [place] [address] Nov, [facility] [place] [facility] [address] [id number] [place] [address] Oct, [facility] [place] [facility] [address] [id number] [place] [address] Sep, [facility] [place] [facility] [address] [id number] [place] [address] Sep, [facility] [place] [facility] [address] [id number] [place] [address] 1404 Sep, [facility] [place] [facility] [address] [id number] [place] [address] 1337 Sep, [facility] [place] [facility] [address] [id number] [place] [address] Sep, [facility] [place] [facility] [address] [id number] [place] [address] 0283 Sep, [facility] [place] [facility] [address] [id number] [place] [address]69 Aug, [facility] [place] [facility] [address] [id number] [place] [address] 160[address] Aug, [facility] [place] [facility] [address] [id number] [place] [address] Aug, [facility] [place] [facility] [address] [id number] [place] [address] Aug, [facility] [place] [facility] [address] [id number] [place] [address] Aug, [facility] [place] [facility] [address] [id number], [place] [address] Jul, [facility] [place] [facility] [address] [id number] [place] [address] 70[address] Jul, [facility] [place] [facility] [address] [id number], [place] [address] Jul, [facility] [place] [facility] [address] [id number] [place] [address] Jun, [facility] [place] [facility] [address] [id number] [place] [address] Jun, [facility] [place] [facility] [address] [id number] [place] [address] Jun, [facility] [place] [facility] [id number], [place] [address] January, [facility] [id number] [place] [address] Dec, [facility] [id number], [place] [address] 17 Oct, 2010 [facility] [id number], [place] [address] Oct, [facility] [id number] [place] [address] Jun, [facility] [id number] [place] [address]- [address] Aug, [facility] [id number] [place] [address]- [address]46 Aug, [facility] [id number] [place] [address]- [address] Jul, [facility] [id number], [place] [address] Mar, IMMUNIZATIONS No Known Immunizations SOCIAL HISTORY Never Assessed REASON FOR VISIT Headache with HTN PLAN OF CARE VITAL SIGNS MEDICATIONS Medication Instructions Dosage Frequency Start Date End Date Duration Status Enalapril Maleate 10 mg Orally twice a day 1 tablet 12h Nov, 30 day(s) Active RESULTS No Results PROCEDURES No Known procedures INSTRUCTIONS MEDICATIONS ADMINISTERED No Known Medications MEDICAL (GENERAL) HISTORY Type Description Date Medical History Hypertension Medical History Chronic Obstructive pulmonary disease diagnosed 2008 in [place]-PFT not done previously Medical History Gastrointestinal disorder [...]
--- OUTSIDE RECORDS SUMMARY | 2018-08-21 15:43 | XMS REPORT ---
Author Author KAITLIN TURNER Organization [facility] Address [address] [place] [address] Care Team Providers Care Bulldozer Operator Name Role Phone KAITLIN TURNER Unavailable PROBLEMS Type Condition ICD9-CM Code [id number] Code Onset Dates Condition Status SNOMED Code Problem Chronic sinusitis, unspecified J32.9 Active 14052229 Problem Other chronic pain G89.29 Active 48426019 Problem Gastroesophageal reflux disease without esophagitis K21.9 Active 994006046 Problem Slow transit constipation K59.01 Active 44059726 Problem Coronary artery disease involving on[place]aga coronary artery of onondaga heart without angina pectoris I25.10 Active [id number] Problem Agoraphobia with panic attacks F40.01 Active 618704017 Problem COPD with exacerbation J44.1 Active 230309680 Problem Pericardial effusion I31.3 Active 137233538 Problem Pleural effusion on left J90 Active 82327266 Problem Generalized anxiety disorder F41.1 Active 40395734 Problem Chronic obstructive pulmonary disease, unspecified COPD type J44.9 Active 87183003 Problem Hypertension, benign I10 Active 20566381 Problem Oral phase dysphagia R13.11 Active 742935015 Problem Vitamin B 12 deficiency E53.8 Active 78680863 Problem Chronic fatigue R53.82 Active 06606980 ALLERGIES Substance Reaction Event Type Date Status MethylPREDNISolone psychosis Drug Allergy Nov, Active Ketorolac Tromethamine tingling in lips Drug Allergy Nov, Active Augmentin 875-125 Mg Tablet Pt states this medication is to harsh on her stomach. Non Drug Allergy Nov, Active ENCOUNTERS Encounter Location Date Diagnosis [facility] [address] [facility] [id number] [address] Mar, Flank pain R10.9 [facility] [address] [facility] [id number] [address] Mar, [facility] [address] [address] 18 Feb, 2018 Coronary artery disease involving onondaga coronary artery of on[place] heart without angina pectoris I25.10 ; Vitamin B 12 deficiency E53.8 ; Slow transit constipation K59.01 ; Generalized anxiety disorder F41.1 and Breast cancer screening by mammogram Z12.31 [facility] [address] [address] Feb, Flank pain R10.9 [facility] [address] [address] January, [facility] [id number] [place] [address] 20108- 2747 January, Chronic obstructive pulmonary disease, unspecified COPD type J44.9 ; Pleural effusion on left J90 ; Pericardial effusion I31.3 and Generalized anxiety disorder F41.1 [facility] [address] [address] January, Gastroenteritis K52.9 [facility] [address] [address] January, Flank pain R10.9 [facility] [address] [address] January, [address] [id number] [place] [address] Dec [facility] [address] [address] Dec, [facility] [address] [address] 6[address] Dec, [facility] [address] [address] Dec, [facility] [address] [address] Dec, [facility] [address] [address] 29[address] Dec, Flank pain R10.9 [facility] [id number] [place] [address] 50965- 6769 Dec, [facility] [id number] [place] [address] 83935- 9598 Nov, [facility] [id number] [place] [address] 78702- 8190 Nov, [facility] [address] [address]- [address]40 Nov, [facility] [address] [address] Nov, Pericardial effusion I31.3 ; Agoraphobia with panic attacks F40.01 and Vitamin B 12 deficiency E53.8 [place] [address] [address]- 3816 Nov, [facility] [address] [address] Nov, Pneumonia of both lungs due to infectious organism, unspecified part of lung J18.9 and Flank pain R10.9 [facility] [id number] [place] [address] 13839- 7415 Nov, Pneumonia of both lungs due to infectious organism, unspecified part of lung J18.9 and Gastroenteritis K52.9 [facility] [id number] [place] [address] 35591- 8155 Oct, Pneumonia of both lungs due to infectious organism, unspecified part of lung J18.9 and Vitamin B 12 deficiency E53.8 [facility] [place] [facility] [address] [id number] Oct, [facility] [id number] [place] [address] 06096- 9248 Oct, [facility] [id number] [place] [address] 83802- 2822 Oct, [facility] [id number] [place] [address] 23023- 7300 Oct, Flank pain R10.9 [facility] [id number] [place] [address] 64761- 5815 Oct, Other chronic pain G89.29 and Unspecified abdominal pain R10.9 [facility] [id number] [place] [address] 08255- 0078 Sep, Flank pain R10.9 [facility] [id number] [place] [address] 87684- 6561 Sep, [facility] [id number] [place] [address] 16199- 1015 Sep, [facility] [id number] [place] [address] 40634- 7404 Sep, Acute non-recurrent maxillary sinusitis J01.00 [facility] [id number] [place] [address] 87101- 4737 Sep, Acute non-recurrent maxillary sinusitis J01.00 and Vitamin B 12 deficiency E53.8 [facility] [id number] [place] [address] 66756- 4532 Sep, [facility] [id number] [place] [address] 91056- 0331 Sep, [facility] [id number] [place] [address] 86774- 5473 Sep, [facility] [id number] [place] [address] 09367- 0935 Sep, COPD with exacerbation J44.1 [facility] [id number] [place] [address] 72117- 1665 Sep, Chronic obstructive pulmonary disease, unspecified COPD type J44.9 [facility] [id number] [place] [address] 04744- 0753 Aug, Flank pain R10.9 [facility] [id number] [place] [address] 67253- 8209 Jul, Flank pain R10.9 and Vitamin B 12 deficiency E53.8 [facility] [id number] [place] [address] 15073- 4147 Jul, [place] [address] 74771- 4824 Jun, Gastroenteritis K52.9 [place] [address] 99220- 9643 May, Gastroenteritis K52.9 and Vitamin B 12 deficiency E53.8 [place] [address] 26030- 3001 Apr, Allergic conjunctivitis of left eye H10.12 and Chronic fatigue R53.82 [place] [address] 98487- 9515 Apr, Chronic sinusitis, unspecified J32.9 [place] [address] 81108- 2392 Apr, [place] [address] 56055- 3835 Feb, [place] [id number] [place] [address] 33651- 0830 January, [place] [address] 66536- 4728 Dec, [place] [id number] [place] [address] 57643- 9324 Oct, [place] [address] 89255- 3851 Sep, Oral phase dysphagia R13.11 and Vitamin B 12 deficiency E53.8 [place] [address] 72616- 8386 Sep, [facility] [address] [place] [address] 87029- 8668 Jul, [facility] [id number] [place] [address] 63819- 8145 Jul, [facility] [id number] [place] [address] 70866- 9453 Jun, Bronchitis J40 ; Generalized anxiety disorder F41.1 and Chronic obstructive pulmonary disease, unspecified COPD type J44.9 [facility] [id number] [place] [address] 27075- 9631 Jun, [facility] [address] 43189- 3212 Jun, [facility] [id number] [place] [address] 45469- 7530 Jun, [facility] [id number] [place] [address] 88189- 3003 May, Vitamin B 12 deficiency E53.8 ; Essential (primary) hypertension I10 ; Generalized anxiety disorder F41.1 ; Pain in joint, ankle and foot 719.47 ; Arthritis M19.90 ; Chronic obstructive pulmonary disease, unspecified COPD type J44.9 and Encounter for immunization Z23 [facility] [id number] [place] [address] 78430- 1157 Apr, [facility] [id number] [place] [address] 39424- 3984 Apr, [facility] [id number] [place] [address] 82975- 1268 Mar, [facility] [id number] [place] [address] 794385- 5468 January, [facility] [id number] [place] [address] 63364- 8048 Dec, [facility] [id number] [place] [address] 04955- 3207 Oct, [place] [id number] [place] [address] 31049- 0015 Oct, [facility] [id number] [place] [address] 20498- 0900 Oct, Hypertension, benign I10 and Vitamin B 12 deficiency E53.8 [place] [address] 22034- 8186 Oct, [facility] [id number] [place] [address] 05525- 9224 Oct, [place] [address] 06186- 0302 Oct, Irritable bowel syndrome with diarrhea K58.0 [place] [address] 02803- 2269 Oct, [place] [id number] [place] [address] 87177- 7149 Oct, Vitamin B 12 deficiency E53.8 ; Hypertension, benign I10 and Chronic obstructive pulmonary disease, unspecified COPD type J44.9 [place] [address] [place] [address] 11901- 7577 Sep, Irritable bowel syndrome with diarrhea K58.0 ; Hypertension , benign I10 ; Chronic obstructive pulmonary disease, unspecified COPD type J44.9 ; Edema, unspecified type R60.9 ; Vision changes H53.9 and Vitamin B 12 deficiency E53.8 [place] [id number] [place] [address] 63554- 8745 Sep, [place] [address] 08669- 0866 Jul, Degenerative disc disease 722.6 [place] [id number] [place] [address] 36588- 3984 Jun, Pain in right leg M79.604 ; Encounter for immunization Z23 and Pain of left leg M79.605 [facility] [address] [address]- 5345 Jun, [facility] [id number] [place] [address] 27122 2546 Jun, [facility] [address], [place] [address] 254 Jun, Degenerative disc disease 722.6 [facility] [id number] [place] [address] 41042 2546 Jun, [facility] [id number] [place] [address] 81325 2543 28 May, 2015 Seizures 780.39 and Autonomic peripheral neuropathy 337.9 [facility] [id number] [place] [address] 20229- 7333 18 May, 2015 [facility] [id number] [place] [address] 77323 2546 17 May, 2015 [facility] [id number] [place] [address] 46470 2541 08 May, 2015 Degenerative disc disease 722.6 [facility] [id number] [place] [address] 52697 2549 08 May, 2015 [facility] [address] [place] [address] 28555 2548 Mar, [facility] [address] [place] [address] 65798 2544 Mar, Degenerative disc disease 722.6 ; Spinal stenosis 724.00 and HTN (hypertension) 401.9 [facility] [address] [place] [address] 15761 2546 Feb, Cutaneous horn 702.8 [facility] [address] [address] 2546 15 Feb, 2015 Fatigue 780.79 [facility] [id number] [place] [address] 96571- 0802 Feb, Fatigue 780.79 ; Arthritis 716.90 ; Spinal stenosis 724.00 ; Sinusitis 473.9 and Cutaneous horn 702.8 [facility] [id number] [place] [address] 75756- 6566 January, [facility] [id number] [place] [address] 99377- 5785 Dec, [facility] [id number] [place] [address] 75738- 2410 Dec, [facility] [id number] [place] [address] 60957- 5896 Nov, [facility] [id number] [place] [address] 62853- 3346 Nov, [facility] [id number] [place] [address] 25503- 9762 Oct, [facility] [id number] [place] [address] 04316- 6951 Oct, [facility] [id number] [place] [address] 98169- 4993 Oct, [facility] [id number] [place] [address] 56061- 0092 Oct, [facility] [address] [address]- 1106 Oct, [facility] [id number] [place] [address] 41319- 9945 Oct, [facility] [id number] [place] [address] 46566- 7236 Sep, [facility] [id number] [place] [address] 87717- 5156 Sep, [facility] [address] [address]- 4946 Sep, [facility] [place] [facility] [address] [facility] [id number] [place] [address]- 3926 Sep, [facility] [address] [id number] [place] [address]- 6112 Sep, [facility] [place] [facility] [address] [id number] [place] [address]- 8580 Sep, [facility] [place] [facility] [address] [id number] [place] [address]- 2433 Sep, [facility] [place] [facility] [address] [id number] [place] [address]- 2786 Sep, [facility] [place] [facility] [address] [id number] [place] [address]- 9923 Sep, [facility] [place] [facility] [address] [id number] [place] [address]- 1358 Sep, [facility] [place] [facility] [address] [id number] [place] [address]- 8919 Sep, [facility] [address] [id number] [place] [address]- 1441 Sep, [facility] [place] [facility] [address] [id number] [place] [address]- 3227 Sep, [facility] [place] [facility] [address] [id number] [place] [address]- 2599 Sep, [facility] [place] [facility] [address] [id number] [place] [address]- 1997 Aug, [facility] [place] [facility] [address] [id number] [place] [address]- 7365 Aug, [facility] [place] [facility] [address] [id number] [place] [address]- 9662 Aug, [facility] [place] [facility] [address] [id number] [place] [address]- 6676 Aug, [facility] [place] [facility] [address] [id number] [place] [address]- 5581 Jul, [facility] [place] [facility] [address] [id number] [place] [address]- 3900 Jul, [facility] [place] [facility] [address] [id number] [place] [address]- 1171 May, [facility] [place] [facility] [address] [id number] [place] [address]- 9637 May, [facility] [place] [facility] [address] [id number] [place] [address]- 8936 May, [facility] [place] [facility] [address] [id number] [place] [address]- 9139 May, [facility] [place] [facility] [address] [id number] [place] [address]- 5714 May, [facility] [place] [facility] [address] [id number] [place] [address]- 6202 May, [facility] [place] [facility] [address] [id number] [place] [address]- 9863 Apr, [facility] [place] [facility] [address] [id number] [place] [address]- 5623 Apr, [facility] [place] [facility] [address] [id number] [place] [address]- 8014 Mar, [facility] [place] [facility] [address] [id number] [place] [address]- 3937 Mar, [facility] [place] [facility] [address] [id number] [place] [address]- 1837 Mar, [facility] [place] [facility] [address] [id number] [place] [address]- 1445 Mar, [facility] [place] [facility] [address] [id number] [place] [address]- 8895 Mar, [facility] [place] [facility] [address] [id number] [place] [address]- 9307 Mar, [facility] [place] [facility] [address] [id number] [place] [address]- 6258 Mar, [facility] [place] [facility] [address] [id number] [place] 1466 Mar, [facility] [place] [facility] [address] [id number] [place] 8553 Feb, [facility] [place] [facility] [address] [id number] [place] [address]- 4391 Feb, [facility] [place] [facility] [address] [id number] [place] [address]- 3891 January, [facility] [place] [facility] [address] [id number] [place] [address]- 0966 January, [facility] [place] [facility] [address] [id number] [place] [address]- 1479 January, [facility] [place] [facility] [address] [id number] [place] [address]- 2837 January, [facility] [place] [facility] [address] [id number] [place] [address]- 9143 Dec, [facility] [place] [facility] [address] [id number] [place] [address]- 5209 Dec, [facility] [place] [facility] [address] [id number] [place] [address]- 9762 Oct, [facility] [place] [facility] [address] [id number] [place] [address]- 2962 Oct, [facility] [place] [facility] [address] [id number] [place] [address]- 1272 Oct, [facility] [place] [facility] [address] [id number] [place] [address]- 7724 Oct, [facility] [place] [facility] [address] [id number] [place] [address]- 2594 Sep, [facility] [place] [facility] [address] [id number] [place] [address]- 6382 Sep, [facility] [place] [facility] [address] [id number] [place] [address]- 0806 Aug, [facility] [place] [facility] [address] [id number] [place] [address]- 5043 Aug, [facility] [place] [facility] [address] [id number] [place] 4787 Aug, [facility] [place] [facility] [address] [id number] [place] [address]- 0351 Aug, [facility] [address] [id number] [place] [address]- 9749 Aug, [facility] [place] [facility] [address] [id number] [place] [address]- 5167 Aug, [facility] [address] [id number] [place] [address]- 4716 Aug, [facility] [address] [id number] [place] [address]- 1268 Aug, [facility] [place] [facility] [address] [id number] [place] [address]- 2434 Aug, [facility] [place] [facility] [address] [id number] [place] [address]- 4339 Aug, [facility] [place] [facility] [address] [id number] [place] [address]- 8474 Jul, [facility] [place] [facility] [address] [id number] [address]- 0684 Jul, [facility] [place] [facility] [address] [id number] [place] [address]- 0620 Jun, [facility] [place] [facility] [address] [id number] [place] [address]- 6300 29 Jun, 2013 [facility] [place] [facility] [address] [id number] [address]- 4342 16 Jun, 2013 [facility] [place] [facility] [address] [id number] [address]- 4362 Jun, [facility] [place] [facility] [address] [id number] [place] [address]- 3614 Jun, [facility] [place] [facility] [address] [id number] [place] [address]- 2949 May, [facility] [place] [facility] [address] [id number] [place] [address]- 0182 May, [facility] [place] [facility] [address] [id number] [place] [address]- 6662 12 May, 2013 [facility] [place] [facility] [address] [id number] [place] [address]- 1979 May, [facility] [place] [facility] [address] [id number] [place] [address]- 3654 May, [facility] [place] [facility] [address] [id number] [place] [address]- 1002 Apr, [facility] [place] [facility] [address] [id number] [place] [address]- 7100 Mar, [facility] [place] [facility] [address] [id number] [place] [address] Mar, [facility] [place] [facility] [address] [id number] [place] [address] Mar, [facility] [place] [facility] [address] [id number] [place] [address] Mar, [facility] [place] [facility] [address] [id number] [place] [address] Mar, [facility] [place] [facility] [address] [id number] [place] [address] Mar, [facility] [place] [facility] [address] [id number] [place] [address] Mar, [facility] [place] [facility] [address] [id number] [place] [address] Mar, [facility] [place] [facility] [address] [id number] [place] [address] Mar, [facility] [address] [id number] [place] [address] Feb, [facility] [address] [id number] [place] [address] Feb, [facility] [address] [id number] [place] [address] Feb, [facility] [address] [id number] [place] [address] January, [facility] [address] [id number] [place] [address] January, [facility] [address] [id number] [place] [address] January, [facility] [address] [id number] [place] [address] January, [facility] [address] [id number] [place] [address] Dec, [facility] [address] [id number] [place] [address] Dec, [facility] [address] [id number] [place] [address] Dec, [facility] [address] [id number] [place] [address] Dec, [facility] [address] [id number] [place] [address] Dec, [facility] [place] [facility] [address] [id number] [place] [address] Dec, [facility] [address] [id number] [place] [address] Nov, [facility] [address] [id number] [place] [address] Oct, [facility] [place] [facility] [address] [id number] [place] [address] Aug, [facility] [place] [facility] [address] [id number] [place] [address] Aug, [facility] [place] [facility] [address] [id number] [place] [address] Aug, [facility] [place] [facility] [address] [id number] [place] [address] Aug, [facility] [place] [facility] [address] [id number] [place] [address] Aug, [facility] [place] [facility] [address] [id number] [place] [address] Aug, [facility] [place] [facility] [address] [facility] [id number] [place] [address] Aug, [facility] [place] [facility] [address] [id number] [place] [address] Aug, [facility] [place] [facility] [address] [id number] [place] [address] Aug, [facility] [place] [facility] [address] [facility] [id number] [place] [address] Aug, [facility] [place] [facility] [address] [id number] [place] [address] Aug, [facility] [place] [facility] [address] [id number] [address] Jul, [facility] [place] [facility] [address] [id number] [place] [address] Jul, [facility] [place] [facility] [address] [id number] [place] [address] Jul, [facility] [place] [facility] [address] [facility] [id number] [place] [address] Jul, [facility] [place] [facility] [address] [id number] [place] [address] Jul, [facility] [place] [facility] [address] [id number] [place] [address] Jul, [facility] [place] [facility] [address] [id number] [place] [address] Jun, [facility] [place] [facility] [address] [id number] [place] [address] Jun, [facility] [place] [facility] [address] [id number] [place] [address] May, [facility] [place] [facility] [address] [id number] [place] [address] Apr, [facility] [place] [facility] [address] [id number] [place] [address] Apr, [facility] [place] [facility] [address] [id number] [place] [address] Apr, [facility] [place] [facility] [address] [id number] [place] [address] Apr, [facility] [place] [facility] [address] [id number] [place] [address] Apr, [facility] [place] [facility] [address] [id number] [place] [address] Mar, [facility] [place] [facility] [address] [id number] [place] [address] Mar, [facility] [place] [facility] [address] [id number] [place] [address] January, [facility] [place] [facility] [address] [id number] [place] [address] January, [facility] [place] [facility] [address] [id number] [place] [address] Nov, [facility] [place] [facility] [address] [id number] [place] [address] Oct, [facility] [place] [facility] [address] [id number] [place] [address] Sep, [facility] [address] [id number] [place] [address] Sep, [facility] [address] [id number] [place] [address] Sep, [facility] [address] [id number] [place] [address] Sep, [facility] [address] [id number] [place] [address] Sep, [facility] [address] [id number] [place] [address] Sep, [facility] [address] [id number] [place] [address] Aug, [facility] [address] [id number] [place] [address] Aug, [facility] [address] [id number] [place] [address] Aug, [facility] [address] [id number] [place] [address] Aug, [facility] [address] [id number] [place] [address] Aug, [facility] [address] [id number] [place] [address] Jul, [facility] [address] [id number] [place] [address] Jul, [facility] [place] [facility] [address] [id number] [place] [address] Jul, [facility] [place] [facility] [address] [id number] [place] [address] Jun, [facility] [address] [id number] [place] [address] Jun, [facility] [id number] [address] Jun, [facility] [id number] [address] January, [facility] [id number] [address] Dec, [facility] [id number] [place] [address] Oct, [facility] [id number] [place] [address] Oct, [facility] [id number] [place] [address] Jun, [facility] [id number] [place] [address] Aug, [facility] [id number] [address] Aug, [facility] [id number] [place] [address] Jul, [facility] [id number] [address] Mar, IMMUNIZATIONS Vaccine Route Administration Date Status B12, VITAMIN (UP TO 1000 MCG) IM Intramuscular December 04, 2017 Administered SOCIAL HISTORY Never Assessed REASON FOR VISIT [facility] f/u Luna Tapia RN, Nausea and diarrhea starting this morning PLAN OF CARE Activity Details Follow Up 2 Weeks Reason:anxiety VITAL SIGNS Height 67 in 2017-12-04 Weight 175.8 lbs 2017-12-04 Temperature 98.0 degrees Fahrenheit 2017-12-04 Heart Rate 68 bpm 2017-12-04 Respiratory Rate 20 2017-12-04 Oximetry w/ oxygen:99 % 2017-12-04 BMI 27.53 kg/m2 2017-12-04 Blood pressure systolic 180 mmHg 2017-12-04 Blood pressure diastolic 102 mmHg 2017-12-04 MEDICATIONS Medication Instructions Dosage Frequency Start Date End Date Duration Status Colace 100 mg Orally 2 times a day 1 capsule as needed 12h Active Ranitidine HCl 150 MG 1 tablet 12h Active Gas-X 80 MG Orally 2 times a day 1 tablet as needed 12h Not-Taking Advair Diskus 500-50 MCG/DOSE Inhalation Twice a day 1 puffs by Inhalation route 2 times per day 12h 30 Active Dicyclomine HCl 20 mg Orally Four times a day PRN 1 tablet 30 Active Fluticasone Propionate 50 MCG/ACT Nasally 2 times a day 1 spray in each nostril 12h 30 days Active Vitamin D3 1000 UNIT Orally twice a day 1 capsule 12h Active Acidophilus 100 mg Orally Once a day 1 capsule 24h 18 May, 2017 Active Albuterol Sulfate (2.5 MG/3ML) 0.083% Inhalation every 4 hrs 3 ml 4h Oct Active Atenolol 100 mg 0.5 tablet by Oral route 2 times per day 12h Active Omeprazole 20 mg 2 capsules 24h Active Cholecalciferol 5000 UNIT Orally Once a day, voucher 1st script 1 capsule Oct, Dec, 30 day(s) Active Cyanocobalamin 1000 MCG/ML Injection once monthly 1ML Active Ibuprofen 600 MG Orally every 6 hrs 1 tablet with food or milk as needed 6h Active [place]-3 Fatty Acids 1000 MG Orally Once a day 2 capsules 24h Active Guaifenesin 400 mg Orally every 4 hrs 1 tablet as needed 4h Sep, Active Xanax 0.5 MG Orally 3 times a day as needed 1 tablet Nov, 28 days Active Aspirin 325 MG Orally Once a day 1 tablet 24h Active Amiodarone HCl 200 MG Orally Once a day 1 tablet 24h Active Enalapril Maleate 10 mg Orally twice a day 1 tablet 12h Nov, 30 day(s) Active Cetirizine HCl 10 mg 1 tablet 24h 30 Active ProAir HFA 108 (90 Base) MCG/ACT 2 puffs as needed 6h Active Seroquel 50 mg Orally Once a day 1 tablet 24h Nov, 30 day(s) Active [place] 5-325 MG Orally every 6 hrs 1 tablet as needed 6h Nov, 28 days Not-Taking RESULTS Name Result Date Reference Range Xray : Chest 2 View (IN HOUSE) 2017-12-04 PROCEDURES Procedure Date Ordered Result Body Site EKG, TRACING (IN-HOUSE) 2017-12-04 NSR, no ST seg changes ELECTROCARDIOGRAM, TRACING December 04, 2017 B12, VITAMIN (UP TO 1000 MCG) December 04, 2017 X-RAY EXAM CHEST 2 VIEWS December 04, 2017 THER/PROPH/DIAG INJ, SC/IM December 04, 2017 INSTRUCTIONS MEDICATIONS ADMINISTERED No Known Medications MEDICAL (GENERAL) HISTORY Type Description Date Medical History Hypertension Medical History Chronic Obstructive pulmonary disease diagnosed 2008 in [place]-PFT not done previously Medical History Gastrointestinal disorder [...]
--- OUTSIDE RECORDS SUMMARY | 2018-08-21 15:44 | XMS REPORT ---
Author Author BRETT JOHNSON Organization [facility] Address [address] [place] [address] Care Team Providers Care Kiln Burner Helper Name Role Phone BRETT JOHNSON Unavailable PROBLEMS Type Condition ICD9-CM Code WHA58-UQ Code Onset Dates Condition Status SNOMED Code Problem Chronic sinusitis, unspecified J32.9 Active 49253401 Problem Other chronic pain G89.29 Active 48251035 Problem Gastroesophageal reflux disease without esophagitis K21.9 Active 111550044 Problem Slow transit constipation K59.01 Active 21484323 Problem Coronary artery disease involving campo coronary artery of campo heart without angina pectoris I25.10 Active [id number] Problem Agoraphobia with panic attacks F40.01 Active 662521058 Problem COPD with exacerbation J44.1 Active 175030777 Problem Pericardial effusion I31.3 Active 811723179 Problem Pleural effusion on left J90 Active 56021948 Problem Generalized anxiety disorder F41.1 Active 42237580 Problem Chronic obstructive pulmonary disease, unspecified COPD type J44.9 Active 52567582 Problem Hypertension, benign I10 Active 34537418 Problem Oral phase dysphagia R13.11 Active 048361658 Problem Vitamin B 12 deficiency E53.8 Active 45210103 Problem Chronic fatigue R53.82 Active 42099845 ALLERGIES No Information ENCOUNTERS Encounter Location Date Diagnosis [facility] [id number], [place] [address] Mar, Flank pain R10.9 [facility] [id number] [place] [address] 39853- 7662 Mar, [place] [id number] [place] [address] 07689- 5472 Feb, Coronary artery disease involving campo coronary artery of campo heart without angina pectoris I25.10 ; Vitamin B 12 deficiency E53.8 ; Slow transit constipation K59.01 ; Generalized anxiety disorder F41.1 and Breast cancer screening by mammogram Z12.31 [facility] [address] [address] Feb, Flank pain R10.9 [facility] [address], [place] [address] 6[address] January, [facility] [id number] [place] [address] 02967- 4083 January, Chronic obstructive pulmonary disease, unspecified COPD type J44.9 ; Pleural effusion on left J90 ; Pericardial effusion I31.3 and Generalized anxiety disorder F41.1 [facility] [id number] [place] [address] 74523- 2685 January, Gastroenteritis K52.9 [facility] [address], [place] [address] 0071 January, Flank pain R10.9 [facility] [address], [place] [address] January, [address] [id number] [place] [address] Dec [facility] [address], [place] [address] 8626 Dec, [facility] [address], [place] [address] 1689 Dec, [facility] [address], [place] [address] 3993 Dec, [facility] [address] [address] 81[address] Dec, [facility] [id number] [address] 6686 Dec, Flank pain R10.9 [facility] [address], [place] [address] 4592 Dec, [facility] [id number] [place] [address] 02857- 6878 Nov, [facility] [id number] [place] [address] 35255- 1746 Nov, [facility] [id number] [place] [address] 82482- 0010 Nov, [facility] [id number] [place] [address] 01539- 7880 14 Nov, 2017 Pericardial effusion I31.3 ; Agoraphobia with panic attacks F40.01 and Vitamin B 12 deficiency E53.8 [facility] [id number] [place] [address] 04884- 5460 Nov, [facility] [id number] [place] [address] 91130- 6738 Nov, Pneumonia of both lungs due to infectious organism, unspecified part of lung J18.9 and Flank pain R10.9 [facility] [id number] [place] [address] 87369- 3940 Nov, Pneumonia of both lungs due to infectious organism, unspecified part of lung J18.9 and Gastroenteritis K52.9 [facility] [id number] [place] [address] 25890- 1205 Oct, Pneumonia of both lungs due to infectious organism, unspecified part of lung J18.9 and Vitamin B 12 deficiency E53.8 [facility] [id number] [place] [address] [id number] 16 Oct, 2017 [facility] [id number] [place] [address] 40719- 4937 Oct, [facility] [id number] [place] [address] 51973- 1053 Oct, [facility] [id number] [place] [address] 06257- 5341 Oct, Flank pain R10.9 [facility] [id number] [place] [address] 23525- 6769 Oct, Other chronic pain G89.29 and Unspecified abdominal pain R10.9 [facility] [address] 54222- 7005 Sep, Flank pain R10.9 [facility] [id number] [place] [address] 40531- 3572 Sep, [facility] [address] 59846- 2459 Sep, [facility] [id number] [place] [address] 47901- 3219 Sep, Acute non-recurrent maxillary sinusitis J01.00 [facility] [id number] [place] [address] 65460- 1332 Sep, Acute non-recurrent maxillary sinusitis J01.00 and Vitamin B 12 deficiency E53.8 [facility] [address] 87095- 2691 Sep, [facility] [id number] [place] [address] 54211- 3245 Sep, [facility] [id number] [place] [address] 65247- 8277 Sep, [facility] [id number] [place] [address] 73385- 9592 Sep, COPD with exacerbation J44.1 [facility] [address] 61251- 7791 Sep, Chronic obstructive pulmonary disease, unspecified COPD type J44.9 [facility] [id number] [place] [address] 54295- 1378 Aug, Flank pain R10.9 [facility] [id number] [place] [address] 89891- 3264 Jul, Flank pain R10.9 and Vitamin B 12 deficiency E53.8 [facility] [id number] [place] [address] 18903- 3206 Jul, [facility] [address] 97758- 3165 Jun, Gastroenteritis K52.9 [facility] [address] 76972- 1442 May, Gastroenteritis K52.9 and Vitamin B 12 deficiency E53.8 [facility] [address] 46121- 6227 Apr, Allergic conjunctivitis of left eye H10.12 and Chronic fatigue R53.82 [place] [address] 37193- 4463 Apr, Chronic sinusitis, unspecified J32.9 [facility] [address] 32628- 8799 Apr, [facility] [address] 78466- 5554 Feb, [facility] [address] 87675- 0205 January, [facility] [address] 62033- 2599 Dec, [facility] [id number] [place] [address] 27224- 1875 Oct, [facility] [id number] [place] [address] 71578- 2298 Sep, Oral phase dysphagia R13.11 and Vitamin B 12 deficiency E53.8 [facility] [address] 53078- 5170 Sep, [facility] [id number] [place] [address] 60745- 5313 Jul, [facility] [address] 71769- 6571 Jul, [facility] [id number] [place] [address] 70158- 3514 Jun, Bronchitis J40 ; Generalized anxiety disorder F41.1 and Chronic obstructive pulmonary disease, unspecified COPD type J44.9 [facility] [id number] [place] [address] 95366- 5965 Jun, [facility] [address] 15945- 2994 Jun, [facility] [id number] [place] [address] 33522- 3271 Jun, [facility] [address] 54806- 9796 May, Vitamin B 12 deficiency E53.8 ; Essential (primary) hypertension I10 ; Generalized anxiety disorder F41.1 ; Pain in joint, ankle and foot 719.47 ; Arthritis M19.90 ; Chronic obstructive pulmonary disease, unspecified COPD type J44.9 and Encounter for immunization Z23 [facility] [id number] [place] [address] 16178- 4700 Apr, [facility] [id number] [place] [address] 79020- 1377 Apr, [facility] [id number] [place] [address] 46256- 9543 Mar, [facility] [id number] [place] [address] 31950- 2885 January, [facility] [id number] [place] [address] 74672- 7284 Dec, [facility] [id number] [place] [address] 09431- 1520 Oct, [facility] [id number] [place] [address] 28006- 4708 Oct, [facility] [address] 42464- 8993 Oct, Hypertension, benign I10 and Vitamin B 12 deficiency E53.8 [place] [id number] [place] [address] 42485- 9668 Oct, [place] [id number] [place] [address] 23311- 3758 Oct, [place] [id number] [place] [address] 38933- 0082 Oct, Irritable bowel syndrome with diarrhea K58.0 [place] [id number] [place] [address] 77635- 6884 Oct, [place] [id number] [place] [address] 28185- 5360 Oct, Vitamin B 12 deficiency E53.8 ; Hypertension, benign I10 and Chronic obstructive pulmonary disease, unspecified COPD type J44.9 [place] [id number] [place] [address] 96586- 6985 Sep, Irritable bowel syndrome with diarrhea K58.0 ; Hypertension , benign I10 ; Chronic obstructive pulmonary disease, unspecified COPD type J44.9 ; Edema, unspecified type R60.9 ; Vision changes H53.9 and Vitamin B 12 deficiency E53.8 [place] [id number] [place] [address] 36165- 4478 Sep, [place] [id number] [place] [address] 12284- 7841 Jul, Degenerative disc disease 722.6 [place] [id number] [place] [address] 99335- 2661 Jun, Pain in right leg M79.604 ; Encounter for immunization Z23 and Pain of left leg M79.605 [place] [id number] [place] [address] 88853- 2725 Jun, [place] [address] 62528- 8818 Jun, [facility] [id number] [place] [address] 60937- 8365 Jun, Degenerative disc disease 722.6 [facility] [id number] [place] [address] 45809- 2042 Jun, [facility] [id number] [place] [address] 69845- 2899 28 May, 2015 Seizures 780.39 and Autonomic peripheral neuropathy 337.9 [facility] [id number] [place] [address] 82107- 6837 18 May, 2015 [facility] [id number] [place] [address] 23037- 0778 17 May, 2015 [facility] [id number] [place] [address] 60680- 0316 08 May, 2015 Degenerative disc disease 722.6 [facility] [id number] [place] [address] 26730- 9004 May, [facility] [id number] [place] [address] 76575- 9519 Mar, [facility] [id number] [place] [address] 23094- 7748 Mar, Degenerative disc disease 722.6 ; Spinal stenosis 724.00 and HTN (hypertension) 401.9 [facility] [id number] [place] [address] 09874- 6370 Feb, Cutaneous horn 702.8 [facility] [id number] [place] [address] 85150- 4605 Feb, Fatigue 780.79 [facility] [id number] [place] [address] 96122- 2580 Feb, Fatigue 780.79 ; Arthritis 716.90 ; Spinal stenosis 724.00 ; Sinusitis 473.9 and Cutaneous horn 702.8 [facility] [id number] [place] [address] 13899- 5796 January, [facility] [place] [facility] [address] [id number] [place] [address]- 6389 Dec, [facility] [place] [facility] [address] [id number] [place] [address]- 6446 Dec, [facility] [place] [facility] [address] [facility] [id number] [place] [address]- 1213 Nov, [facility] [place] [facility] [address] [id number] [place] [address]- 7551 Nov, [facility] [place] [facility] [address] [id number] [place] [address]- 6554 Oct, [facility] [place] [facility] [address] [id number] [place] [address]- 2288 Oct, [facility] [place] [facility] [address] [facility] [id number] [place] [address]- 7904 Oct, [facility] [place] [facility] [address] [facility] [id number] [place] [address]- 2709 Oct, [facility] [place] [facility] [address] [facility] [id number] [place] [address]- 9028 Oct, [facility] [place] [facility] [address] [facility] [id number] [place] [address]- 0103 Oct, [facility] [place] [facility] [address] [facility] [id number] [place] [address]- 6529 Sep, [facility] [place] [facility] [address] [id number] [address]- 6987 Sep, [facility] [place] [facility] [address] [id number], [place] [address]- 8043 Sep, [facility] [place] [facility] [address] [facility] [id number], [place] [address]- 5890 Sep, [facility] [place] [facility] [address] [facility] [id number], [place] [address]- 8285 Sep, [facility] [place] [facility] [address] [id number] [place] [address]- 7394 Sep, [facility] [place] [facility] [address] [id number] [place] [address]- 7128 Sep, [facility] [place] [facility] [address] [id number] [place] [address]- 9581 Sep, [facility] [place] [facility] [address] [id number] [place] [address]- 8406 Sep, [facility] [place] [facility] [address] [id number] [place] [address]- 0838 Sep, [facility] [place] [facility] [address] [id number] [place] [address]- 8215 Sep, [facility] [place] [facility] [address] [id number] [place] [address]- 9278 Sep, [facility] [place] [facility] [address] [id number] [place] [address]- 4812 Sep, [facility] [place] [facility] [address] [id number] [place] [address]- 1726 Sep, [facility] [place] [facility] [address] [id number] [place] [address]- 9234 Aug, [facility] [place] [facility] [address] [id number] [place] [address]- 7678 Aug, [facility] [place] [facility] [address] [id number] [place] [address]- 9569 Aug, [facility] [place] [facility] [address] [id number] [place] [address]- 5909 Aug, [facility] [place] [facility] [address] [id number] [place] [address]- 7595 Jul, [facility] [place] [facility] [address] [id number] [place] [address]- 1233 Jul, [facility] [place] [facility] [address] [id number] [place] [address]- 5894 May, [facility] [place] [facility] [address] [id number] [place] [address]- 3126 May, [facility] [place] [facility] [address] [id number] [place] [address]- 1895 May, [facility] [place] [facility] [address] [id number] [place] [address]- 9913 May, [facility] [place] [facility] [address] [id number] [place] [address]- 3730 May, [facility] [place] [facility] [address] [id number] [place] [address]- 3494 May, [facility] [place] [facility] [address] [id number] [place] [address]- 1277 Apr, [facility] [place] [facility] [address] [id number] [place] [address]- 5684 Apr, [facility] [place] [facility] [address] [id number] [place] [address]- 7095 Mar, [facility] [place] [facility] [address] [id number] [place] [address]- 0763 Mar, [facility] [place] [facility] [address] [id number] [place] [address]- 3680 Mar, [facility] [place] [facility] [address] [id number] [place] [address]- 5022 Mar, [facility] [place] [facility] [address] [id number], [place] [address]- 1822 Mar, [facility] [place] [facility] [address] [id number] [place] [address]- 1457 Mar, [facility] [place] [facility] [address] [id number] [place] [address]- 1488 Mar, [facility] [place] [facility] [address] [id number] [place] [address]- 0089 Mar, [facility] [place] [facility] [address] [id number] [place] [address]- 8115 Feb, [facility] [address] [id number] [place] [address]- 7065 Feb, [facility] [place] [facility] [address] [id number] [place] [address]- 8652 January, [facility] [place] [facility] [address] [id number] [place] 2618 January, [facility] [place] [facility] [address] [id number] [place] [address]- 1856 January, [facility] [place] [facility] [address] [id number] [place] [address]- 2340 January, [facility] [place] [facility] [address] [id number] [place] [address]- 1357 Dec, [facility] [place] [facility] [address] [id number] [place] [address]- 7456 Dec, [facility] [place] [facility] [address] [id number] [place] [address]- 0743 Oct, [facility] [place] [facility] [address] [id number] [place] [address]- 6995 Oct, [facility] [place] [facility] [address] [id number] [place] [address]- 7428 Oct, [facility] [place] [facility] [address] [id number] [place] [address]- 7566 Oct, [facility] [place] [facility] [address] [id number] [place] [address]- 9486 Sep, [facility] [place] [facility] [address] [id number] [place] 0346 Sep, [facility] [place] [facility] [address] [id number] [place] [address]- 1170 Aug, [facility] [place] [facility] [address] [id number] [place] 1404 Aug, [facility] [place] [facility] [address] [id number] [place] [address]- 0805 Aug, [facility] [place] [facility] [address] [id number] [place] [address]- 4362 Aug, [facility] [place] [facility] [address] [id number] [place] 1855 Aug, [facility] [place] [facility] [address] [id number] [place] [address]- 8257 Aug, [facility] [place] [facility] [address] [id number] [place] [address]- 0336 Aug, [facility] [place] [facility] [address] [id number] [place] [address]- 5101 Aug, [facility] [place] [facility] [address] [id number] [place] 8384 Aug, [facility] [place] [facility] [address] [id number] [place] [address]- 8268 Aug, [facility] [place] [facility] [address] [id number] [place] [address]- 6714 Jul, [facility] [place] [facility] [address] [id number] [place] [address]- 3259 Jul, [facility] [place] [facility] [address] [id number], [place] [address]- 5633 Jun, [facility] [place] [facility] [address] [id number], [place] [address]- 5936 Jun, [facility] [place] [facility] [address] [id number] [place] [address]- 0459 Jun, [facility] [place] [facility] [address] [id number] [place] [address]- 1706 Jun, [facility] [place] [facility] [address] [id number] [place] [address]- 8135 Jun, [facility] [place] [facility] [address] [id number] [place] [address]- 1576 13 May, 2012 [facility] [address] [id number] [place] [address]- 7970 13 May, 2012 [facility] [place] [facility] [address] [id number] [place] [address] 12 May, 2013 [facility] [address] [id number] [place] [address] 06 May, 2012 [facility] [place] [facility] [address] [id number] [place] [address] 03 May, 2013 [facility] [address] [id number] [place] [address] Apr, [facility] [place] [facility] [address] [id number] [place] [address] Mar, [facility] [address] [id number] [place] [address] Mar, [facility] [address] [id number] [place] [address] Mar, [facility] [address] [id number] [place] [address] Mar, [facility] [address] [id number] [place] [address] Mar, [facility] [address] [id number] [place] [address] Mar, [facility] [place] [facility] [address] [id number] [place] [address] Mar, [facility] [place] [facility] [address] [id number] [place] [address] Mar, [facility] [place] [facility] [address] [id number] [place] [address] Mar, [facility] [place] [facility] [address] [id number] [place] [address] Feb, [facility] [place] [facility] [address] [id number] [place] [address] 17 Feb, 2013 [facility] [address] [id number] [place] [address] Feb, [facility] [address] [id number] [place] [address] January, [facility] [address] [id number] [place] [address] January, [facility] [address] [id number] [place] [address] January, [facility] [address] [id number] [place] [address] January, [facility] [address] [id number] [place] [address] Dec, [facility] [address] [id number] [place] [address] Dec, [facility] [address] [id number] [place] [address] Dec, [facility] [address] [id number] [place] [address] Dec, [facility] [address] [id number] [place] [address] Dec, [facility] [address] [id number] [place] [address] Dec, [facility] [address] [id number] [place] [address] Nov, [facility] [place] [facility] [address] [id number] [place] [address] Oct, [facility] [place] [facility] [address] [id number] [place] [address] Aug, [facility] [address] [id number] [place] [address] Aug, [facility] [place] [facility] [address] [id number] [place] [address] 17 Aug, 2012 [facility] [place] [facility] [address] [id number] [place] [address] Aug, [facility] [place] [facility] [address] [facility] [id number] [place] [address] Aug, [facility] [place] [facility] [address] [id number] [place] [address] Aug, [facility] [place] [facility] [address] [id number] [place] [address] Aug, [facility] [place] [facility] [address] [id number] [place] [address] Aug, [facility] [place] [facility] [address] [id number] [place] [address] Aug, [facility] [place] [facility] [address] [id number] [place] [address] Aug, [facility] [place] [facility] [address] [id number] [place] [address] Aug, [facility] [place] [facility] [address] [id number] [place] [address] Jul, [facility] [place] [facility] [address] [id number], [place] [address] 30 Jul, 2012 [facility] [place] [facility] [address] [id number], [place] [address] Jul, [facility] [place] [facility] [address] [id number] [place] [address] Jul, [facility] [place] [facility] [address] [facility] [id number] [place] [address] Jul, [facility] [place] [facility] [address] [facility] [id number] [place] [address] Jul, [facility] [place] [facility] [address] [id number] [place] [address] Jun, [facility] [address] [id number] [place] [address] Jun, [facility] [place] [facility] [address] [id number] [place] [address] May, [facility] [address] [id number] [place] [address] Apr, [facility] [place] [facility] [address] [id number] [place] [address] Apr, [facility] [address] [id number] [place] [address] Apr, [facility] [address] [id number] [place] [address] Apr, [facility] [address] [id number] [place] [address] Apr, [facility] [address] [id number] [place] [address] Mar, [facility] [place] [facility] [address] [id number] [place] [address] Mar, [facility] [address] [id number] [place] [address] January, [facility] [place] [facility] [address] [id number] [place] [address] January, [facility] [address] [id number] [place] [address] Nov, [facility] [place] [facility] [address] [id number] [place] [address] Oct, [facility] [place] [facility] [address] [id number] [place] [address] Sep, [facility] [place] [facility] [address] [id number] [place] [address] Sep, [facility] [address] [id number] [place] [address] Sep, [facility] [place] [facility] [address] [id number] [place] [address] Sep, [facility] [place] [facility] [address] [id number] [place] [address] Sep, [facility] [place] [facility] [address] [id number] [place] [address] Sep, [facility] [place] [facility] [address] [id number] [place] [address] Aug, [facility] [place] [facility] [address] [id number] [place] [address] Aug, [facility] [place] [facility] [address] [id number] [place] [address] Aug, [facility] [place] [facility] [address] [id number] [place] [address] Aug, [facility] [place] [facility] [address] [id number] [place] [address] Aug, [facility] [place] [facility] [address] [id number], [place] [address] Jul, [facility] [place] [facility] [address] [id number], [place] [address] Jul, [facility] [place] [facility] [address] [id number], [place] [address] Jul, [facility] [place] [facility] [address] [id number] [place] [address] Jun, [facility] [place] [facility] [address] [id number] [place] [address] Jun, [facility] [place] [facility] [address] [id number], [place] [address] Jun, [facility] [place] [facility] [address] [id number], [place] [address] January, [facility] [address] [id number], [place] [address] Dec, [facility] [id number] [address] Oct, [facility] [id number], [place] [address] Oct, [facility] [id number], [place] [address] Jun, [facility] [id number] [place] [address] Aug, [facility] [id number], [place] [address] Aug, [facility] [id number], [place] [address] Jul, [facility] [address] [id number], [place] [address] Mar, IMMUNIZATIONS No Known Immunizations SOCIAL HISTORY Never Assessed REASON FOR VISIT requesting return call PLAN OF CARE VITAL SIGNS MEDICATIONS Medication Instructions Dosage Frequency Start Date End Date Duration Status Enalapril Maleate 10 mg Orally Once a day 1 tablet 24h Nov, 30 day(s) Active Atenolol 100 mg 0.5 tablet by Oral route 2 times per day 12h Active RESULTS No Results PROCEDURES No Known procedures INSTRUCTIONS MEDICATIONS ADMINISTERED No Known Medications MEDICAL (GENERAL) HISTORY Type Description Date Medical History Hypertension Medical History Chronic Obstructive pulmonary disease diagnosed 2008 in [place]-PFT not done previously Medical History Gastrointestinal disorder [...]
--- OUTSIDE RECORDS SUMMARY | 2018-08-21 15:45 | XMS REPORT ---
Author Author BRETT JOHNSON Organization [facility] Address [address] [place] [address] Care Team Providers Care Pharmacy Services Director Name Role Phone BRETT JOHNSON Unavailable PROBLEMS Type Condition ICD9-CM Code CCV43-FV Code Onset Dates Condition Status SNOMED Code Problem Generalized anxiety disorder F41.1 Active 03805567 Problem Oral phase dysphagia R13.11 Active 739984082 Problem Chronic obstructive pulmonary disease, unspecified COPD type J44.9 Active 64999831 Problem Hypertension, benign I10 Active 97721705 Problem Vitamin B 12 deficiency E53.8 Active 11024529 Problem Agoraphobia with panic attacks F40.01 Active 319980204 Problem COPD with exacerbation J44.1 Active 993512189 Problem Chronic sinusitis, unspecified J32.9 Active 94503552 Problem Chronic fatigue R53.82 Active 86998623 Problem Other chronic pain G89.29 Active 17969859 Problem Gastroesophageal reflux disease without esophagitis K21.9 Active 238869714 ALLERGIES No Information ENCOUNTERS Encounter Location Date Diagnosis [address] [id number] [address] January, [place] [id number] [address] January, Gastroenteritis K52.9 [facility] [id number] [address] 0628 January, Flank pain R10.9 [place] [id number] [place] [address] 16443- 7998 January, [facility] [address] [id number] [place] [address] Dec [facility] [id number] [place] [address] 70058- 5037 Dec, [facility] [id number] [address] 8027 Dec, [facility] [id number] [place] [address] 04523- 6860 Dec, [facility] [id number] [place] [address] 51511- 5011 Dec, [facility] [id number] [place] [address] 81472- 6687 Dec, Flank pain R10.9 [facility] [id number] [place] [address] 39611- 4427 Dec, [facility] [id number] [place] [address] 44997- 2788 Nov, [facility] [id number] [place] [address] 61351- 6811 Nov, [facility] [id number] [place] [address] 33164- 6809 Nov, [facility] [id number] [place] [address] 71540- 8794 Nov, Pericardial effusion I31.3 ; Agoraphobia with panic attacks F40.01 and Vitamin B 12 deficiency E53.8 [facility] [id number] [address] 4782 Nov, [facility] [id number] [place] [address] 73203- 4867 Nov, Pneumonia of both lungs due to infectious organism, unspecified part of lung J18.9 and Flank pain R10.9 [facility] [id number] [place] [address] 83470- 6221 Nov, Pneumonia of both lungs due to infectious organism, unspecified part of lung J18.9 and Gastroenteritis K52.9 [facility] [id number] [address] 3579 Oct, Pneumonia of both lungs due to infectious organism, unspecified part of lung J18.9 and Vitamin B 12 deficiency E53.8 [facility] [id number] [place] [address] [id number] Oct, [facility] [id number] [place] [address] 62048- 5378 Oct, [facility] [id number] [place] [address] 07946- 8331 Oct, [facility] [id number] [place] [address] 85646- 4423 Oct, Flank pain R10.9 [facility] [id number] [place] [address] 00433- 0218 Oct, Other chronic pain G89.29 and Unspecified abdominal pain R10.9 [facility] [id number] [place] [address] 02798- 1052 Sep, Flank pain R10.9 [facility] [id number] [place] [address] 05726- 7279 Sep, [facility] [id number] [place] [address] 10470- 4608 Sep, [facility] [id number] [place] [address] 04440- 7350 Sep, Acute non-recurrent maxillary sinusitis J01.00 [facility] [id number] [place] [address] 16577- 7135 Sep, Acute non-recurrent maxillary sinusitis J01.00 and Vitamin B 12 deficiency E53.8 [facility] [id number] [place] [address] 95284- 9782 Sep, [facility] [id number] [place] [address] 21568- 8588 Sep, [facility] [id number] [place] [address] 74773- 5453 Sep, [place] [id number] [place] [address] 34566- 3379 Sep, COPD with exacerbation J44.1 [place] [id number] [place] [address] 83052- 3491 Sep, Chronic obstructive pulmonary disease, unspecified COPD type J44.9 [place] [address] 42698- 4536 Aug, Flank pain R10.9 [place] [address] 41617- 9523 Jul, Flank pain R10.9 and Vitamin B 12 deficiency E53.8 [place] [address] 50480- 1301 Jul, [place] [address] 28592- 4497 Jun, Gastroenteritis K52.9 [place] [address] 51185- 5171 May, Gastroenteritis K52.9 and Vitamin B 12 deficiency E53.8 [place] [id number] [place] [address] 54332- 5996 Apr, Allergic conjunctivitis of left eye H10.12 and Chronic fatigue R53.82 [place] [id number] [place] [address] 69410- 9992 Apr, Chronic sinusitis, unspecified J32.9 [place] [id number] [place] [address] 88775- 9288 Apr, [place] [address] 15646- 0127 Feb, [place] [id number] [place] [address] 91865- 1510 January, [place] [address] 13172- 4162 Dec, [place] [id number] [place] [address] 96822- 1072 Oct, [place] [address] 64020- 0866 Sep, Oral phase dysphagia R13.11 and Vitamin B 12 deficiency E53.[address] [address]995- 6102 Sep, [place] [address] 35979- 3236 Jul, [place] [address] 09411- 6294 Jul, [place] [address] 47411- 4404 Jun, Bronchitis J40 ; Generalized anxiety disorder F41.1 and Chronic obstructive pulmonary disease, unspecified COPD type J44.9 [place] [id number] [place] [address] 11788- 9622 Jun, [address] 59805- 5489 Jun, [place] [id number] [place] [address] 04791- 3769 Jun, [address] 91169- 5848 May, Vitamin B 12 deficiency E53.8 ; Essential (primary) hypertension I10 ; Generalized anxiety disorder F41.1 ; Pain in joint, ankle and foot 719.47 ; Arthritis M19.90 ; Chronic obstructive pulmonary disease, unspecified COPD type J44.9 and Encounter for immunization Z23 [place] [id number] [place] [address] 76667- 8848 Apr, [place] [address] 03442- 8377 Apr, [place] [address] [address]- 0359 Mar, [facility] [id number] [place] [address] 63777- 5871 January, [facility] [id number] [place] [address] 73682- 1868 Dec, [facility] [id number] [place] [address] 35984- 4054 Oct, [facility] [id number] [place] [address] 27741- 0136 Oct, [facility] [id number] [place] [address] 70576- 3425 Oct, Hypertension, benign I10 and Vitamin B 12 deficiency E53.8 [place] [id number] [place] [address] 28381- 3755 Oct, [facility] [id number] [place] [address] 76536- 5862 Oct, [facility] [id number] [place] [address] 87481- 1863 Oct, Irritable bowel syndrome with diarrhea K58.0 [place] [id number] [place] [address] 11535- 7031 Oct, [facility] [id number] [place] [address] 90952- 1351 Oct, Vitamin B 12 deficiency E53.8 ; Hypertension, benign I10 and Chronic obstructive pulmonary disease, unspecified COPD type J44.9 [facility] [id number] [place] [address] 44547- 9675 Sep, Irritable bowel syndrome with diarrhea K58.0 ; Hypertension , benign I10 ; Chronic obstructive pulmonary disease, unspecified COPD type J44.9 ; Edema, unspecified type R60.9 ; Vision changes H53.9 and Vitamin B 12 deficiency E53.8 [place] [address] [address]- 6461 Sep, [facility] [id number] [place] [address] 62709- 3851 Jul, Degenerative disc disease 722.6 [facility] [address] [address] 2546 Jun, Pain in right leg M79.604 ; Encounter for immunization Z23 and Pain of left leg M79.605 [facility] [address] [address] 2546 Jun, [facility] [id number] [place] [address] 29665- 4056 Jun, [facility] [id number] [place] [address] 84429- 4407 Jun, Degenerative disc disease 722.6 [facility] [id number] [place] [address] 74003- 1223 Jun, [facility] [id number] [place] [address] 23049- 3890 May, Seizures 780.39 and Autonomic peripheral neuropathy 337.9 [facility] [address] [address] 2546 18 May, 2015 [facility] [id number] [place] [address] 53920 2546 17 May, 2015 [facility] [id number] [address]- 2547 08 May, 2015 Degenerative disc disease 722.6 [facility] [id number] [place] [address] 94412 2546 May, [facility] [address] [address] 2546 Mar, [facility] [id number] [place] [address] 70979 2546 Mar, Degenerative disc disease 722.6 ; Spinal stenosis 724.00 and HTN (hypertension) 401.9 [facility] [id number] [place] [address] 70688- 4670 Feb, Cutaneous horn 702.8 [facility] [id number] [place] [address] 61826- 3035 Feb, Fatigue 780.79 [facility] [address] 5[address] 2544 Feb, Fatigue 780.79 ; Arthritis 716.90 ; Spinal stenosis 724.00 ; Sinusitis 473.9 and Cutaneous horn 702.8 [facility] [id number] [place] [address] 34032- 4972 January, [facility] [id number] [place] [address] 20998- 1303 Dec, [facility] [id number] [place] [address] 93345- 7890 Dec, [facility] [id number] [place] [address] 72481- 4130 Nov, [facility] [id number] [place] [address] 21766- 7966 Nov, [facility] [id number] [place] [address] 59295- 2529 Oct, [facility] [id number] [place] [address] 09920- 8628 Oct, [facility] [id number] [place] [address] 98667- 7938 Oct, [facility] [id number] [place] [address] 92030- 9036 Oct, [facility] [id number] [place] [address] 523824- 8923 Oct, [facility] [id number] [place] [address] 72460- 3962 Oct, [facility] [address] [id number] [place] [address]- 1899 Sep, [facility] [place] [facility] [address] [id number] [place] [address]- 1138 Sep, [facility] [place] [facility] [address] [id number] [place] [address]- 7999 Sep, [facility] [place] [facility] [address] [id number] [place] [address]- 3276 Sep, [facility] [place] [facility] [address] [id number] [place] [address]- 0377 Sep, [facility] [place] [facility] [address] [id number] [place] [address]- 3660 Sep, [facility] [address] [id number] [place] [address]- 5628 Sep, [facility] [place] [facility] [address] [id number] [place] [address]- 2053 Sep, [facility] [place] [facility] [address] [id number] [place] [address]- 5514 Sep, [facility] [place] [facility] [address] [id number] [place] [address]- 8267 Sep, [facility] [place] [facility] [address] [id number] [place] [address]- 0745 Sep, [facility] [place] [facility] [address] [id number] [place] [address]- 4579 Sep, [facility] [place] [facility] [address] [id number] [place] [address]- 3635 Sep, [facility] [place] [facility] [address] [id number] [place] [address]- 7613 Sep, [facility] [place] [facility] [address] [id number] [place] [address]- 1317 Aug, [facility] [place] [facility] [address] [id number] [place] [address]- 8221 Aug, [facility] [place] [facility] [address] [id number] [place] [address]- 8256 Aug, [facility] [place] [facility] [address] [id number] [place] [address]- 9700 Aug, [facility] [place] [facility] [address] [id number] [place] [address]- 4971 Jul, [facility] [place] [facility] [address] [id number] [place] [address]- 5343 Jul, [facility] [place] [facility] [address] [id number] [place] [address]- 1796 May, [facility] [place] [facility] [address] [id number] [place] [address]- 1440 May, [facility] [place] [facility] [address] [id number] [place] [address]- 5032 May, [facility] [place] [facility] [address] [id number] [place] [address]- 6300 May, [facility] [place] [facility] [address] [id number] [place] [address]- 7788 May, [facility] [place] [facility] [address] [id number] [place] [address]- 4553 May, [facility] [place] [facility] [address] [id number] [place] [address]- 9305 Apr, [facility] [place] [facility] [address] [id number] [place] [address]- 1524 Apr, [facility] [place] [facility] [address] [id number] [place] [address]- 8826 Mar, [facility] [place] [facility] [address] [id number] [place] [address]- 4046 Mar, [facility] [place] [facility] [address] [id number] [place] [address]- 7878 Mar, [facility] [place] [facility] [address] [id number] [place] [address]- 8883 Mar, [facility] [place] [facility] [address] [id number] [place] [address]- 4932 Mar, [facility] [place] [facility] [address] [id number] [place] [address]- 0975 Mar, [facility] [place] [facility] [address] [id number] [place] [address]- 7976 Mar, [facility] [place] [facility] [address] [id number] [place] [address]- 7962 Mar, [facility] [place] [facility] [address] [id number] [place] [address]- 4273 Feb, [facility] [place] [facility] [address] [id number] [place] [address]- 2655 Feb, [facility] [place] [facility] [address] [id number] [place] [address]- 8421 January, [facility] [place] [facility] [address] [id number] [place] [address]- 9359 January, [facility] [place] [facility] [address] [id number] [place] [address]- 6586 January, [facility] [place] [facility] [address] [id number] [place] [address]- 4525 January, [facility] [place] [facility] [address] [id number] [place] [address]- 4998 Dec, [facility] [place] [facility] [address] [id number] [place] [address]- 2514 Dec, [facility] [place] [facility] [address] [id number] [place] [address]- 4925 Oct, [facility] [place] [facility] [address] [id number] [place] [address]- 0248 Oct, [facility] [place] [facility] [address] [id number] [place] [address]- 1025 Oct, [facility] [address] [id number] [place] [address]- 8376 Oct, [facility] [address] [id number] [place] [address]- 4444 Sep, [facility] [address] [id number] [place] [address]- 6993 Sep, [facility] [address] [id number] [place] [address]- 3760 Aug, [facility] [address] [id number] [place] 8744 Aug, [facility] [address] [id number] [place] [address]- 2299 Aug, [facility] [address] [id number] [place] [address]- 1586 Aug, [facility] [address] [id number] [place] [address]- 5677 Aug, [facility] [address] [id number] [place] [address]- 0665 Aug, [facility] [address] [id number] [place] [address]- 9639 Aug, [facility] [address] [id number] [place] [address]- 8120 Aug, [facility] [address] [id number] [place] [address]- 2242 Aug, [facility] [address] [id number] [place] [address]- 8510 Aug, [facility] [address] [id number] [place] [address]- 8256 Jul, [facility] [address] [id number] [place] [address]- 6300 Jul, [facility] [place] [facility] [address] [id number] [place] [address]- 1736 Jun, [facility] [place] [facility] [address] [id number] [place] [address]- 9314 Jun, [facility] [place] [facility] [address] [id number] [place] [address]- 1734 Jun, [facility] [place] [facility] [address] [id number] [place] [address]- 6581 Jun, [facility] [place] [facility] [address] [id number] [place] [address]- 0019 Jun, [facility] [place] [facility] [address] [id number] [place] [address]- 8182 May, [facility] [place] [facility] [address] [id number] [place] [address]- 8837 May, [facility] [place] [facility] [address] [id number] [place] [address]- 6472 12 May, 2013 [facility] [place] [facility] [address] [id number] [place] [address]- 4398 06 May, 2013 [facility] [place] [facility] [address] [id number] [place] [address]- 9941 May, [facility] [place] [facility] [address] [id number] [place] [address]- 5134 Apr, [facility] [place] [facility] [address] [id number] [place] [address]- 7816 Mar, [facility] [place] [facility] [address] [id number] [place] [address]- 0251 Mar, [facility] [place] [facility] [address] [id number] [place] [address]- 2724 Mar, [facility] [place] [facility] [address] [id number] [place] 8181 Mar, [facility] [place] [facility] [address] [id number] [place] [address]- 1760 15 Mar, 2013 [facility] [address] [id number] [place] [address]- 1913 Mar, [facility] [address] [id number] [place] [address]- 1396 Mar, [facility] [address] [id number] [place] [address]- 4148 Mar, [facility] [address] [id number] [place] [address]- 9666 Mar, [facility] [address] [id number] [place] [address]- 0750 Feb, [facility] [address] [id number] [place] [address]- 1083 Feb, [facility] [address] [id number] [place] [address]- 5080 Feb, [facility] [address] [id number] [place] [address]- 2385 January, [facility] [address] [id number] [place] [address]- 9460 January, [facility] [address] [id number] [place] [address]- 6[address] January, [facility] [address] [id number] [place] [address] January, [facility] [address] [id number] [place] [address] 18 Dec, 2012 [facility] [address] [id number] [place] [address] Dec, [facility] [address] [id number] [place] [address] Dec, [facility] [address] [id number] [place] [address] Dec, [facility] [address] [id number] [place] [address] 08 Dec, 2012 [facility] [address] [id number] [place] [address] Dec, [facility] [place] [facility] [address] [id number] [place] [address] Nov, [facility] [place] [facility] [address] [id number] [place] [address] Oct, [facility] [place] [facility] [address] [id number] [place] [address] Aug, [facility] [place] [facility] [address] [id number] [place] [address] Aug, [facility] [address] [id number] [place] [address] Aug, [facility] [address] [id number] [place] [address] Aug, [facility] [address] [id number] [place] [address] Aug, [facility] [address] [id number] [place] [address] Aug, [facility] [address] [id number] [place] [address] Aug, [facility] [place] [facility] [address] [id number] [place] [address] Aug, [facility] [place] [facility] [address] [id number] [place] [address] Aug, [facility] [place] [facility] [address] [id number] [place] [address] Aug, [facility] [place] [facility] [address] [id number] [place] [address] Aug, [facility] [place] [facility] [address] [id number] [place] [address] Jul, [facility] [place] [facility] [address] [id number] [place] [address] Jul, [facility] [place] [facility] [address] [id number] [place] [address] Jul, [facility] [place] [facility] [address] [id number] [place] [address] Jul, [facility] [place] [facility] [address] [id number] [place] [address] Jul, [facility] [place] [facility] [address] [id number] [place] [address] Jul, [facility] [place] [facility] [address] [id number] [place] [address] Jun, [facility] [place] [facility] [address] [id number] [place] [address] Jun, [facility] [place] [facility] [address] [id number] [place] [address] May, [facility] [place] [facility] [address] [id number] [place] [address] Apr, [facility] [place] [facility] [address] [id number] [place] [address] Apr, [facility] [place] [facility] [address] [id number] [place] [address] Apr, [facility] [place] [facility] [address] [id number] [place] [address] Apr, [facility] [place] [facility] [address] [id number] [place] [address] Apr, [facility] [place] [facility] [address] [id number] [place] [address] Mar, [facility] [place] [facility] [address] [id number] [place] [address] Mar, [facility] [place] [facility] [address] [id number] [place] [address] January, [facility] [address] [id number] [place] [address]- [id number] January, [facility] [address] [id number] [place] [address] Nov, [facility] [address] [id number] [place] [address] Oct, [facility] [address] [id number] [place] [address] Sep, [facility] [address] [id number] [place] [address] Sep, [facility] [address] [id number] [place] [address] Sep, [facility] [address] [id number] [place] [address] Sep, [facility] [address] [id number] [place] [address] Sep, [facility] [address] [id number] [place] [address] Sep, [facility] [address] [id number] [place] [address] Aug, [facility] [address] [id number] [place] [address] Aug, [facility] [address] [id number] [place] [address] Aug, [facility] [address] [id number] [place] [address] Aug, [facility] [address] [id number] [place] [address] Aug, [facility] [address] [id number] [place] [address] Jul, [facility] [address] [id number] [place] [address] Jul, [facility] [address] [facility] [id number] [place] [address] Jul, [facility] [address] [id number] [place] [address] Jun, [facility] [address] [facility] [id number] [place] [address] Jun, [facility] [address] [facility] [id number] [place] [address] Jun, [facility] [address] [facility] [id number] [place] [address] January, [facility] [id number] [place] [address] Dec, [facility] [id number] [place] [address] Oct, [facility] [id number] [place] [address] Oct, [facility] [id number] [place] [address] Jun, [facility] [id number] [place] [address] Aug, [facility] [address] [id number] [place] [address] Aug, [facility] [address] [id number] [place] [address] Jul, [facility] [id number] [place] [address] Mar, IMMUNIZATIONS No Known Immunizations SOCIAL HISTORY [...] Chronic Obstructive pulmonary disease diagnosed 2008 in [place]-PFT not done previously Medical History Gastrointestinal disorder [...]
--- OUTSIDE RECORDS SUMMARY | 2018-08-21 15:46 | XMS REPORT ---
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 Name Role Phone ELIZABETH BRETT Unavailable PROBLEMS Type Condition ICD9-CM Code CHX04-MS Code Onset Dates Condition Status SNOMED Code Problem Oral phase dysphagia R13.11 Active 560129911 Problem Chronic sinusitis, unspecified J32.9 Active 90350097 Problem Chronic fatigue R53.82 Active 91935352 Problem Hypertension, benign I10 Active 63360323 Problem Vitamin B 12 deficiency E53.8 Active 56012343 Problem Generalized anxiety disorder F41.1 Active 57031027 Problem Chronic obstructive pulmonary disease, unspecified COPD type J44.9 Active 59007403 Problem Pericardial effusion I31.3 Active 135195324 Problem Pleural effusion on left J90 Active 28263167 Problem Other chronic pain G89.29 Active 57619893 Problem Gastroesophageal reflux disease without esophagitis K21.9 Active 695541564 Problem Agoraphobia with panic attacks F40.01 Active 079723589 Problem COPD with exacerbation J44.1 Active [id number] ALLERGIES No Information ENCOUNTERS Encounter Location Date Diagnosis [place] [address] [address] Feb, [place] [address] [place] [id number] [place] [address] 43405- 7923 January, [place] [id number] [place] [address] 71424- 4883 January, Chronic obstructive pulmonary disease, unspecified COPD type J44.9 ; Pleural effusion on left J90 ; Pericardial effusion I31.3 and Generalized anxiety disorder F41.1 [place] [address] [address] January, Gastroenteritis K52.9 [place] [address] [address] 8104 January, Flank pain R10.9 [facility] [address] [address] January, [facility] [place] [address] [id number] [place] [address] Dec [facility] [address] [address] 64[address] Dec, [facility] [address] [address] 8267 Dec, [facility] [address] [address] 7857 Dec, [facility] [address] [address] Dec, [facility] [address] [address] Dec, Flank pain R10.9 [facility] [address] [address] 8861 Dec, [facility] [address] [address] 7173 Nov, [facility] [address] [address] 5[address] Nov, [facility] [address] [address] 27[address] Nov, [facility] [address] [place] [id number] [address] 14 Nov, 2017 Pericardial effusion I31.3 ; Agoraphobia with panic attacks F40.01 and Vitamin B 12 deficiency E53.8 [facility] [id number] [address] 57[address] Nov, [facility] [address] [address] Nov, Pneumonia of both lungs due to infectious organism, unspecified part of lung J18.9 and Flank pain R10.9 [facility] [address] [address] Nov, Pneumonia of both lungs due to infectious organism, unspecified part of lung J18.9 and Gastroenteritis K52.9 [facility] [address] [address]- 0603 Oct, Pneumonia of both lungs due to infectious organism, unspecified part of lung J18.9 and Vitamin B 12 deficiency E53.8 [facility] [address] [id number] Oct, [facility] [address] [address]- 9550 Oct, [facility] [address] 8[address]- 5866 Oct, [facility] [address] 57497- 4359 Oct, Flank pain R10.9 [facility] [address] [address]- 1011 Oct, Other chronic pain G89.29 and Unspecified abdominal pain R10.9 [facility] [address] [place] [id number] [place] [address] 86368- 4883 Sep, Flank pain R10.9 [facility] [address] [place] [id number] [place] [address] 26197- 8688 Sep, [facility] [address] 27989- 0709 Sep, [facility] [address] [place] [address] [id number] [place] [address] 94431- 7664 Sep, Acute non-recurrent maxillary sinusitis J01.00 [facility] [address] [address]- 0940 Sep, Acute non-recurrent maxillary sinusitis J01.00 and Vitamin B 12 deficiency E53.8 [place] [address] 36495- 8917 Sep, [place] [address] 47222- 4173 Sep, [place] [address] 88399- 4036 Sep, [place] [address] 18124- 9249 Sep, COPD with exacerbation J44.1 [place] [address] 73752- 9493 Sep, Chronic obstructive pulmonary disease, unspecified COPD type J44.9 [place] [address] 94180- 9951 Aug, Flank pain R10.9 [place] [address] 78003- 0783 Jul, Flank pain R10.9 and Vitamin B 12 deficiency E53.8 [place] [address] 69893- 4886 Jul, [place] [address] 75363- 3933 Jun, Gastroenteritis K52.9 [place] [address] 27180- 9561 May, Gastroenteritis K52.9 and Vitamin B 12 deficiency E53.8 [place] [address] 01147- 0351 Apr, Allergic conjunctivitis of left eye H10.12 and Chronic fatigue R53.82 [place] [address] [place] [id number] [place] [address] 56676- 4234 Apr, Chronic sinusitis, unspecified J32.9 [facility] [address] [address]- 8847 Apr, [facility] [address] [place] [id number] [place] [address] 34294- 8104 Feb, [facility] [address] [place] [id number] [place] [address] 36418- 4585 January, [facility] [address] [place] [address] [id number] [place] [address] 47711- 4371 Dec, [facility] [address] [place] [id number] [place] [address] 96972- 2356 Oct, [facility] [address] [place] [id number] [place] [address] 70310- 4120 Sep, Oral phase dysphagia R13.11 and Vitamin B 12 deficiency E53.8 [facility] [address] [place] [id number] [place] [address] 29234- 7595 Sep, [facility] [address] [place] [address] [id number] [place] [address] 72762- 9566 Jul, [facility] [address] [place] [id number] [place] [address] 37276- 8288 Jul, [facility] [address] [place] [address] [id number] [place] [address] 72541- 2880 Jun, Bronchitis J40 ; Generalized anxiety disorder F41.1 and Chronic obstructive pulmonary disease, unspecified COPD type J44.9 [facility] [address], [place] [address]- 1010 Jun, [facility] [address] [place] [id number] [place] [address] 23646- 8697 Jun, [facility] [id number] [place] [address] 06984- 6971 Jun, [facility] [address], [place] [address]- 9577 15 May, 2016 Vitamin B 12 deficiency E53.8 ; Essential (primary) hypertension I10 ; Generalized anxiety disorder F41.1 ; Pain in joint, ankle and foot 719.47 ; Arthritis M19.90 ; Chronic obstructive pulmonary disease, unspecified COPD type J44.9 and Encounter for immunization Z23 [facility] [address] [place] [id number] [place] [address] 12631- 0008 Apr, [facility] [address] 40153- 5810 Apr, [facility] [address] 87905- 6954 Mar, [place] [address] 56501- 6250 January, [facility] [address] 48572- 8659 Dec, [facility] [address] 56714- 5740 Oct, [facility] [address] 33987- 6556 Oct, [facility] [address] 92174- 6086 Oct, Hypertension, benign I10 and Vitamin B 12 deficiency E53.8 [facility] [address] [place] [id number] [place] [address] 94732- 6403 Oct, [facility] [address] [place] [id number] [place] [address] 48129- 8027 Oct, [facility] [address] [place] [id number] [place] [address] 24343- 3555 Oct, Irritable bowel syndrome with diarrhea K58.0 [facility] [address] [place] [id number] [place] [address] 33772- 1731 Oct, [facility] [address] 31533- 6341 Oct, Vitamin B 12 deficiency E53.8 ; Hypertension, benign I10 and Chronic obstructive pulmonary disease, unspecified COPD type J44.9 [place] [address] 76782- 3614 Sep, Irritable bowel syndrome with diarrhea K58.0 ; Hypertension , benign I10 ; Chronic obstructive pulmonary disease, unspecified COPD type J44.9 ; Edema, unspecified type R60.9 ; Vision changes H53.9 and Vitamin B 12 deficiency E53.8 [place] [address] 88909- 7664 Sep, [place] [address] 66880- 3102 Jul, Degenerative disc disease 722.6 [place] [address] 43515- 3595 Jun, Pain in right leg M79.604 ; Encounter for immunization Z23 and Pain of left leg M79.605 [place] [address] 84243- 8695 Jun, [place] [address] 62879- 9940 Jun, [place] [address] [place] [id number] [place] [address] 75037- 7940 Jun, Degenerative disc disease 722.6 [place] [address] 86507- 2047 Jun, [place] [address] 94208- 1102 28 May, 2015 Seizures 780.39 and Autonomic peripheral neuropathy 337.9 [place] [address] 31817- 3003 18 May, 2015 [place] [address] 96968- 3874 17 May, 2015 [place] [address] [place] [address]- 2160 May, Degenerative disc disease 722.6 [facility] [address] [place] [id number] [place] [address] 13081- 1224 May, [facility] [address] [place] [id number] [place] [address] 64015- 8516 Mar, [facility] [address] [place] [id number] [place] [address] 35699- 1446 Mar, Degenerative disc disease 722.6 ; Spinal stenosis 724.00 and HTN (hypertension) 401.9 [facility] [address] [place] [id number] [place] [address] 01727- 6526 Feb, Cutaneous horn 702.8 [facility] [address] [place] [id number] [place] [address] 09538- 7324 Feb, Fatigue 780.79 [facility] [address] [place] [id number] [place] [address] 369187- 3352 Feb, Fatigue 780.79 ; Arthritis 716.90 ; Spinal stenosis 724.00 ; Sinusitis 473.9 and Cutaneous horn 702.8 [facility] [address] [place] [id number] [place] [address] 28339- 0671 January, [facility] [address] [place] [id number] [place] [address] 77754- 6464 Dec, [facility] [address] [place] [id number] [place] [address] 98860- 8238 Dec, [facility] [address] [place] [id number] [place] [address] 98395- 6536 Nov, [facility] [address] [place] [id number] [place] [address] 01226- 9176 Nov, [facility] [address] [place] [id number] [place] [address] 16278- 6566 Oct, [facility] [address] [place] [id number] [place] [address] 46174- 7720 Oct, [facility] [place] [facility] [address] [id number] [place] [address]- 7956 Oct, [facility] [place] [facility] [address] [id number] [place] [address]- 0296 Oct, [facility] [place] [facility] [address] [id number] [place] [address]- 7037 Oct, [facility] [place] [facility] [address] [id number] [place] [address]- 8017 Oct, [facility] [place] [facility] [address] [id number] [place] [address]- 0676 Sep, [facility] [place] [facility] [address] [id number] [place] [address]- 3839 Sep, [facility] [place] [facility] [address] [id number] [place] [address]- 9332 Sep, [facility] [place] [facility] [address] [id number] [place] [address]- 8758 Sep, [facility] [place] [facility] [address] [id number] [place] [address]- 0349 Sep, [facility] [place] [facility] [address] [id number] [place] [address]- 5449 Sep, [facility] [place] [facility] [address] [id number] [place] [address]- 2369 Sep, [facility] [place] [facility] [address] [id number] [place] [address]- 8089 Sep, [facility] [place] [facility] [address] [id number] [place] [address]- 1260 Sep, [facility] [place] [facility] [address] [id number] [place] [address]- 8671 Sep, [facility] [place] [facility] [address] [id number] [place] [address]- 0913 Sep, [facility] [place] [facility] [address] [id number] [place] [address]- 9379 16 Sep, 2014 [facility] [address] [id number] [place] [address]- 2935 Sep, [facility] [place] [facility] [address] [id number] [place] [address]- 5000 Sep, [facility] [address] [id number] [place] [address]- 1945 Aug, [facility] [place] [facility] [address] [id number] [place] [address]- 5842 Aug, [facility] [address] [id number] [place] [address]- 4658 Aug, [facility] [address] [id number] [place] [address]- 1049 Aug, [facility] [place] [facility] [address] [id number] [place] [address]- 5451 Jul, [facility] [address] [id number] [place] [address]- 5943 Jul, [facility] [place] [facility] [address] [id number] [place] [address]- 5911 May, [facility] [address] [id number] [place] [address]- 9051 May, [facility] [place] [facility] [address] [id number] [place] [address]- 2541 May, [facility] [place] [facility] [address] [id number] [place] [address]- 4594 May, [facility] [place] [facility] [address] [id number] [place] [address]- 1706 May, [facility] [place] [facility] [address] [id number] [place] [address]- 5255 May, [facility] [place] [facility] [address] [id number] [place] [address]- 0276 Apr, [facility] [place] [facility] [address] [id number] [place] [address]- 4841 Apr, [facility] [place] [facility] [address] [id number] [place] [address]- 9248 Mar, [facility] [place] [facility] [address] [id number] [place] [address]- 0869 Mar, [facility] [place] [facility] [address] [id number] [place] [address]- 0390 Mar, [facility] [place] [facility] [address] [id number] [place] [address]- 0927 Mar, [facility] [place] [facility] [address] [id number] [place] [address]- 7099 Mar, [facility] [place] [facility] [address] [id number] [place] [address]- 2072 Mar, [facility] [place] [facility] [address] [id number] [place] [address]- 1058 Mar, [facility] [place] [facility] [address] [id number] [place] [address]- 6972 Mar, [facility] [place] [facility] [address] [id number] [place] [address]- 5058 Feb, [facility] [place] [facility] [address] [id number] [place] [address]- 2974 Feb, [facility] [place] [facility] [address] [id number] [place] [address]- 5896 January, [facility] [place] [facility] [address] [id number] [place] [address]- 4991 January, [facility] [place] [facility] [address] [id number] [place] [address]- 1992 January, [facility] [place] [facility] [address] [id number] [place] [address]- 5697 January, [facility] [place] [facility] [address] [id number] [place] [address]- 2937 Dec, [facility] [address] [id number] [place] [address]- 3416 Dec, [facility] [address] [id number] [place] [address]- 1246 Oct, [facility] [address] [id number] [place] [address]- 8346 Oct, [facility] [place] [facility] [address] [id number] [place] [address]- 7996 Oct, [facility] [address] [id number] [place] [address]- 5266 Oct, [facility] [address] [id number] [place] [address]- 0299 Sep, [facility] [address] [id number] [place] [address]- 1824 Sep, [facility] [address] [id number] [place] [address]- 1322 Aug, [facility] [address] [id number] [place] [address]- 1596 Aug, [facility] [address] [id number] [place] [address]- 2700 Aug, [facility] [address] [id number] [place] [address]- 2396 Aug, [facility] [place] [facility] [address] [id number] [place] [address] 2541 Aug, [facility] [place] [facility] [address] [id number] [place] [address]- 5451 Aug, [facility] [place] [facility] [address] [id number] [place] [address]- 3456 Aug, [facility] [place] [facility] [address] [id number] [place] [address]- 6610 Aug, [facility] [place] [facility] [address] [id number] [place] [address]- 6628 Aug, [facility] [place] [facility] [address] [id number] [place] [address]- 1488 Aug, [facility] [place] [facility] [address] [id number] [place] [address]- 4375 Jul, [facility] [place] [facility] [address] [id number] [place] [address]- 8987 Jul, [facility] [place] [facility] [address] [id number] [place] [address]- 5189 Jun, [facility] [place] [facility] [address] [id number] [place] [address]- 2300 Jun, [facility] [place] [facility] [address] [id number] [place] [address]- 6361 Jun, [facility] [place] [facility] [address] [id number] [place] [address]- 4870 Jun, [facility] [place] [facility] [address] [id number] [place] [address]- 3511 Jun, [facility] [place] [facility] [address] [id number] [place] [address]- 3176 May, [facility] [place] [facility] [address] [id number] [place] [address]- 3964 May, [facility] [place] [facility] [address] [id number] [place] [address]- 2298 12 May, 2013 [facility] [place] [facility] [address] [id number] [place] [address]- 3692 06 May, 2013 [facility] [place] [facility] [address] [id number] [place] [address]- 9359 03 May, 2013 [facility] [place] [facility] [address] [id number] [place] [address]- 3823 Apr, [facility] [place] [facility] [address] [id number] [place] [address]- 2486 Mar, [facility] [address] [id number] [place] [address]- 4460 Mar, [facility] [place] [facility] [address] [id number] [place] [address]- 2708 Mar, [facility] [address] [id number] [place] [address] Mar, [facility] [place] [facility] [address] [id number] [place] [address] Mar, [facility] [address] [id number] [place] [address] Mar, [facility] [address] [id number] [place] [address] Mar, [facility] [address] [id number] [place] [address] Mar, [facility] [place] [facility] [address] [id number] [place] [address] Mar, [facility] [address] [id number] [place] [address] Feb, [facility] [place] [facility] [address] [id number] [place] [address] Feb, [facility] [place] [facility] [address] [id number] [place] [address] Feb, [facility] [place] [facility] [address] [id number] [place] [address] January, [facility] [place] [facility] [address] [id number] [place] [address] January, [facility] [place] [facility] [address] [id number] [place] [address] January, [facility] [place] [facility] [address] [id number] [place] [address] January, [facility] [place] [facility] [address] [id number] [place] [address] 18 Dec, 2012 [facility] [address] [id number] [place] [address] Dec, [facility] [address] [id number] [place] [address] Dec, [facility] [address] [id number] [place] [address] Dec, [facility] [address] [id number] [place] [address] Dec, [facility] [address] [id number] [place] [address] Dec, [facility] [address] [id number] [place] [address] Nov, [facility] [address] [id number] [place] [address] Oct, [facility] [address] [id number] [place] [address] Aug, [facility] [address] [id number] [place] [address] Aug, [facility] [address] [id number] [place] [address] Aug, [facility] [address] [id number] [place] [address] Aug, [facility] [address] [id number] [place] [address] Aug, [facility] [address] [id number] [place] [address] Aug, [facility] [address] [id number] [place] [address] Aug, [facility] [address] [id number] [place] [address] Aug, [facility] [place] [facility] [address] [id number] [place] [address] Aug, [facility] [place] [facility] [address] [id number] [place] [address]- [address] Aug, [facility] [place] [facility] [address] [id number] [place] [address] Aug, [facility] [place] [facility] [address] [id number] [place] [address] Jul, [facility] [place] [facility] [address] [id number] [place] [address] Jul, [facility] [place] [facility] [address] [id number] [place] [address] Jul, [facility] [place] [facility] [address] [id number] [place] [address] Jul, [facility] [place] [facility] [address] [id number] [place] [address]- [address] Jul, [facility] [place] [facility] [address] [id number] [place] [address]- [address] Jul, [facility] [place] [facility] [address] [id number] [address] Jun, [facility] [place] [facility] [address] [id number], [place] [address] Jun, [facility] [place] [facility] [address] [id number], [place] [address] May, [facility] [place] [facility] [address] [id number] [place] [address] Apr, [facility] [place] [facility] [address] [id number][place] [address] Apr, [facility] [place] [facility] [address] [facility] [id number], [place] [address] Apr, [facility] [place] [facility] [address] [id number], [place] [address] Apr, [facility] [address] [id number] [place] [address] Apr, [facility] [place] [facility] [address] [id number] [place] [address] Mar, [facility] [place] [facility] [address] [id number] [place] [address] Mar, [facility] [place] [facility] [address] [id number] [place] [address] January, [facility] [address] [id number] [place] [address] January, [facility] [place] [facility] [address] [id number] [place] [address] Nov, [facility] [address] [id number] [place] [address] Oct, [facility] [place] [facility] [address] [id number] [place] [address] Sep, [facility] [address] [id number] [place] [address] Sep, [facility] [place] [facility] [address] [id number] [place] [address] Sep, [facility] [place] [facility] [address] [id number] [place] [address] Sep, [facility] [place] [facility] [address] [id number] [place] [address] Sep, [facility] [place] [facility] [address] [id number] [place] [address] Sep, [facility] [place] [facility] [address] [id number] [place] [address] Aug, [facility] [place] [facility] [address] [id number] [place] [address] Aug, [facility] [place] [facility] [address] [id number] [place] [address] Aug, [facility] [place] [facility] [address] [id number] [place] [address] Aug, [facility] [place] [facility] [address] [id number] [place] [address] Aug, [facility] [place] [facility] [address] [id number] [place] [address] Jul, [facility] [place] [facility] [address] [id number] [place] [address] Jul, [facility] [place] [facility] [address] [id number] [place] [address] Jul, [facility] [place] [facility] [address] [id number] [place] [address] Jun, [facility] [place] [facility] [address] [id number] [place] [address] Jun, [facility] [place] [facility] [address] [id number] [place] [address] Jun, [facility] [place] [facility] [address] [id number] [place] [address] January, [facility] [place] [facility] [address] [id number] [place] [address] Dec, [facility] [place] [facility] [address] [id number] [place] [address] Oct, [facility] [place] [facility] [address] [id number] [place] [address] Oct, [facility] [place] [facility] [address] [id number] [place] [address] Jun, [facility] [place] [facility] [address] [id number] [place] [address] 14 Aug, 2009 [facility] [place] [facility] [address] [id number] [place] [address] Aug, [facility] [address] [facility] [id number] [place] [address] Jul, [facility] [address] [facility] [id number] [place] [address] Mar, IMMUNIZATIONS No Known Immunizations SOCIAL HISTORY Never Assessed REASON FOR VISIT [facility] f/u PLAN OF CARE VITAL SIGNS MEDICATIONS Unknown Medications RESULTS No Results PROCEDURES No Known procedures INSTRUCTIONS MEDICATIONS ADMINISTERED No Known Medications MEDICAL (GENERAL) HISTORY Type Description Date Medical History Hypertension Medical History Chronic Obstructive pulmonary disease diagnosed 2008 in [place]-PFT not done previously Medical History Gastrointestinal disorder [...]
--- OUTSIDE RECORDS SUMMARY | 2018-08-21 15:56 | XMS REPORT | Continuity of Care Document ---
Author Author [facility] Organization [facility] Address Unknown Phone Unavailable Care Team Providers Care Application Project Leader Name Role Phone CHRISTIANOCAROLYN PP Insurance Providers Payer Name Policy Number Subscriber Name Relationship Formerly [facility] [id number] Marti Escalera 01 Self / Same As Patient Advance Directives Directive Response Recorded Date Advance Directives N 03/12/13 12:20pm Health Care Power of Historical Records Administrator N 03/12/13 12:20pm Organ Donor N 03/12/13 12:20pm Problems No Known Problems or Medical conditions. Social History History Response Recorded Date/Time Alcohol Use Denies Use 12/24/12 11:32am Recreational Drug Use N 12/24/12 11:32am Allergies, Adverse Reactions, Alerts Allergen Type Severity Reaction Last Updated buspirone HCl Allergy 04/29/12 NSAIDS (Non-Steroidal Anti-Inflamma Adverse Reaction 04/29/12 Steroidal Neuromuscular Blockers Adverse Reaction 04/29/12 Etodolac Allergy 04/29/12 gabapentin Adverse Reaction 04/29/12 Medications Medication Dose Units Route Sig Qty Days Omeprazole 20 Mg PO BID Meclizine HCl (Antivert 25 Mg) 25 Mg PO QID PRN Calcium/Vitamin D (Calcarb 600 With Vit D Tab) 1 Tab PO DAILY Guaifenesin (G-Fenesin) 400 Mg PO Q4H PRN Cetirizine HCl (Cetirizine Hcl) 10 Mg PO DAILY Oxybutynin Chloride (Ditropan) 5 Mg PO BID Lisinopril (Prinivil) 10 Mg PO DAILY Cyclobenzaprine Hcl (Flexeril Tablet) 10 Mg PO BID PRN Atenolol (Tenormin 100 Mg) 50 Mg PO BID Ergocalciferol (Vitamin D) 94653 Unit PO ONCE WEEKLY Cyanocobalamin 1000 Mcg IM ONCE MONTHLY Albuterol Sulfate (Rx-Albuterol Nebs) 2.5 Mg IH QID PRN Ranitidine HCl (Zantac 150 Mg) 150 Mg PO BID Fluticasone Propionate (Flonase 0.05% Nasal Hert[place]) 1 Hertel NSEACH DAILY Tramadol Hcl 50 Mg PO Q6H PRN Dicyclomine Hcl 20 Mg PO QID PRN Albuterol (Proair Hfa) 2 Puff IH QID PRN Aspirin 325 Mg PO DAILY Fish Oil 1000 Mg PO DAILY Alprazolam (Xanax) 0.5 Mg PO TID PRN Salmeterol Xinafoate/Fluticasone (Advair 250 Mcg/50 Mcg 60's) 1 Puff INH BID Tramadol HCl (Ultram) 50 Mg PO Q4H 20 Calcium Carbonate/Vitamin D3 ( Calcium 500 + Vit D 200 Cpt) 1 Each PO DAILY Omeprazole (Prilosec) 20 Mg PO DAILY Guaifenesin (G-Fenesin) 400 Mg PO Q4H PRN Diphenoxylate HCl/Atropine (Diphenoxylate/Atropine Tab) 1 Each PO QID PRN 10 Hydrocodone Bit/Acetaminophen (Hydrocodon-Acetaminophen 5-325) 1 Each PO Q 4 HOURS PRN PAIN 14 [vitamin d2 50,000] weekly Cyclobenzaprine HCl (Cyclobenzaprine Hcl) 10 Mg PO BID PRN [Vit B 12] 5 Ml INJ MONTHLY Lisinopril (Zestril) 10 Mg PO DAILY Oxybutynin Chloride (Ditropan) 5 Mg PO BID Albuterol/Ipratropium (Duoneb Rt) 3 Ml INH NEEDED Immunizations Name Given Type Date of Pneumonia Vaccine 10/24/10 H Response Recorded Date/Time Status not known Unknown Results Test Date Result Interp. Ref. Range Alanine Aminotransferase (ALT/SGPT) May 21, 2012 5:40pm 36 U/L N 30-65 Albumin May 21, 2012 5:40pm 3.8 G/DL N 3.4-5.0 Alkaline Phosphatase May 21, 2012 5:40pm 96 U/L N 50-136 Amylase Level May 21, 2012 5:40pm 39 U/L N 25-115 Aspartate Amino Transf (AST/SGOT) May 21, 2012 5:40pm 13 U/L L 15-37 BUN/Creatinine Ratio May 21, 2012 5:40pm 6 - Basophils # (Auto) May 21, 2012 5:40pm 0.0 10^3/uL N 0.0-0.1 Basophils (%) (Auto) May 21, 2012 5:40pm 1 % N 0-10 Blood Urea Nitrogen May 21, 2012 5:40pm 6 MG/DL L 7-18 Calcium Level May 21, 2012 5:40pm 8.8 MG/DL N 8.5-10.1 Carbon Dioxide Level May 21, 2012 5:40pm 26 MMOL/L N 21-32 Chloride Level May 21, 2012 5:40pm 99 MMOL/L L 101-110 Creatinine May 21, 2012 5:40pm 1.0 MG /DL N 0.6-1.3 Eosinophils # (Auto) May 21, 2012 5:40pm 0.1 10^3/uL N 0.0-0.3 Eosinophils % (Manual) May 21, 2012 5:40pm 2 % - Eosinophils (%) (Auto) May 21, 2012 5:40pm 1 % N 0-10 Glucose Level May 21, 2012 5:40pm 95 MG/DL N 74-106 Hematocrit May 21, 2012 5:40pm 42 % N 35-52 Hemoglobin May 21, 2012 5:40pm 14.4 G /DL N 11.5-16.0 Lipase May 21, 2012 5:40pm 119 U/L N 73-393 Lymphocytes # (Auto) May 21, 2012 5:40pm 2.0 X 10^3 N 1.0-4.0 Lymphocytes % (Manual) May 21, 2012 5:40pm 29 % - Lymphocytes (%) (Auto) May 21, 2012 5:40pm 27 % N 12-44 Mean Corpuscular Hemoglobin May 21, 2012 5:40pm 30 PG N 25-34 Mean Corpuscular Hemoglobin Concent May 21, 2012 5:40pm 35 G/DL N 32-36 Mean Corpuscular Volume May 21, 2012 5:40pm 88 FL N 80-99 Mean Platelet Volume May 21, 2012 5:40pm 8.7 FL N 7.4-10.4 Monocytes # (Auto) May 21, 2012 5:40pm 0.8 X 10^3 N 0.0-1.0 Monocytes % (Manual) May 21, 2012 5:40pm 9 % - Monocytes (%) (Auto) May 21, 2012 5:40pm 11 % N 0-12 Neutrophils # (Auto) May 21, 2012 5:40pm 4.5 X 10^3 N 1.8-7.8 Neutrophils % (Manual) May 21, 2012 5:40pm 60 % - Neutrophils (%) (Auto) May 21, 2012 5:40pm 61 % N 42-75 Platelet Count May 21, 2012 5:40pm 240 10^3/uL N 130-400 Potassium Level May 21, 2012 5:40pm 3.4 MMOL/L L 3.6-5.0 Red Blood Count May 21, 2012 5:40pm 4.73 10^6/uL N 4.35-5.85 Red Cell Distribution Width May 21, 2012 5:40pm 13.5 % N 10.0-14.5 Sodium Level May 21, 2012 5:40pm 137 MMOL/L N 135-145 Stool Fat, Qualitative April 02, 2006 9:39am See report - Stool Occult Blood March 23, 2006 6:43pm Negative - Total Bilirubin May 21, 2012 5:40pm 0.3 MG/DL N 0.0-1.0 Total Protein May 21, 2012 5:40pm 7.9 G/DL N 6.4-8.2 Urine Bacteria May 21, 2012 6:40pm TRACE - Urine Bilirubin May 21, 2012 6:40pm NEGATIVE - Urine Casts May 21, 2012 6:40pm NONE - Urine Clarity May 21, 2012 6:40pm CLEAR - Urine Color May 21, 2012 6:40pm YELLOW - Urine Crystals May 21, 2012 6:40pm NONE - Urine Culture Indicated May 21, 2012 6:40pm NO - Urine Glucose (UA) May 21, 2012 6:40pm NEGATIVE - Urine Ketones May 21, 2012 6:40pm NEGATIVE - Urine Leukocyte Esterase May 21, 2012 6:40pm NEGATIVE - Urine Mucus May 21, 2012 6:40pm NEGATIVE - Urine Nitrate July 25, 2007 11:21am Negative - Urine Nitrite May 21, 2012 6:40pm NEGATIVE - Urine Protein May 21, 2012 6:40pm NEGATIVE - Urine RBC May 21, 2012 6:40pm NONE / HPF - Urine Specific [place] May 21, 2012 6:40pm 1.005 L - Urine Squamous Epithelial Cells May 21, 2012 6:40pm 2-5 - Urine Urobilinogen May 21, 2012 6:40pm NORMAL MG/DL - Urine WBC May 21, 2012 6:40pm RARE / HPF - Urine pH May 21, 2012 6:40pm 7.0 - White Blood Count May 21, 2012 5:40pm 7.5 10^3/uL N 4.3-11.0 Lab Scanned Report December 12, 2010 10:07am LAB Reports [id number] - Estimat Glomerular Filtration Rate May 21, 2012 5:40pm 59 - Blood Morphology Comment May 21, 2012 5:40pm NORMAL - Urine RBC (Auto) May 21, 2012 6:40pm NEGATIVE - Procedures Procedure Code Date UPPER GI ENDOSCOPY BIOPSY [id number] 06/25/11 DIAGNOSTIC COLONOSCOPY [id number] 06/25/11 Ova and Parasites 04/02/06 Encounters Encounter Location Date/Time Departed Emergency Room [facility] 12/03 9:46am Discharged Inpatient [facility] 11:00am
== END 2018-08-21 13:30 | disposition home or self-care (01) ==
LOC: ENDO 08:55
PROVIDERS: ATTEND Internal Medicine Critical Care Medicine
DX: R91.8 Other nonspecific abnormal finding of lung field (principal); J43.9 Emphysema, unspecified; J45.909 Unspecified asthma, uncomplicated; F17.210 Nicotine dependence, cigarettes, uncomplicated; Z79.82 Long term (current) use of aspirin; Z79.899 Other long term (current) drug therapy
CPT/HCPCS: 71045; 87015; 87070; 87077; 87101; 87116; 87185; 87205; 87206; 88112; 88305; 88312; 94640

== ENCOUNTER → 2018-09-02 | Outpatient (CLI) | payer MEDICAID ==
--- NOTE | 2018-09-02 17:49 | Diagnostic Imaging Report ---
PET/CT. INDICATION: Lung nodules. EXAMINATION: After intravenous administration of 15.51 mCi of [id number], a series of overlapping emission and transmission PET images was obtained. In the coronal, transaxial and sagittal planes, the area imaged extended from the skull base through the upper thighs. FINDINGS: There are no prior PET/CT examinations available for comparison. The recent CT chest study of 07/24/2018 noted a tiny nodule in the right upper lobe measuring 2-3 mm. This finding did seem stable when compared to the prior CT chest exam of 01/19/2018. There also appear to be a 7 mm nodular density in the right middle lobe. This did seem more conspicuous than noted on the prior exam of 01/19/2018. On this exam, there is no hypermetabolic activity in the right middle lobe to suggest that the nodule in question is neoplastic in nature. Even so, it may prove worthwhile to have a six-month followup CT chest exam for continued evaluation. There is no other hypermetabolic activity to suggest neoplasm. There is increased activity about the larynx. This may be secondary to phonation. There is also physiologic activity in the brain, the heart, the kidneys, and the bladder. The CT images fail to show any sign of an acute abnormality. The gallbladder is surgically absent. There is no obvious breast mass. If the patient has had a recent (within the last year) mammogram elsewhere, then no further imaging would be necessary. If the patient has not had a recent mammogram however, then mammography would be recommended. IMPRESSION: 1. The small nodule in the right middle lobe seen on the recent CT chest exam is not hypermetabolic. This finding is most likely benign but a six-month followup CT chest exam would be recommended for further evaluation. 2. There is no other hypermetabolic activity to suggest the presence of neoplasm. 3. There is no acute abnormality identified. 4. There is no obvious breast mass. Recommendations, as above. Dictated by: Dictated on workstation # [id number]
== END ==
LOC: RAD 12:18
PROVIDERS: ATTEND Internal Medicine Critical Care Medicine
DX: J44.9 Chronic obstructive pulmonary disease, unspecified (principal); R91.8 Other nonspecific abnormal finding of lung field; F17.200 Nicotine dependence, unspecified, uncomplicated

== ENCOUNTER 2018-10-04 21:00 | Outpatient (CLI) | payer MEDICAID | END 2018-10-05 06:40 | disposition home or self-care (01) | LOC: SLEEP 21:00 | PROVIDERS: ATTEND Nurse Practitioner Family | DX: G47.50 Parasomnia, unspecified (principal); G47.10 Hypersomnia, unspecified; R91.8 Other nonspecific abnormal finding of lung field; J44.9 Chronic obstructive pulmonary disease, unspecified | CPT/HCPCS: 95810 ==

== ENCOUNTER → 2018-10-09 | Emergency (ER) | payer MEDICAID ==
[~2018-10-09] VITALS: Ht 175.3 cm; Wt 90.7 kg
[~2018-10-09] MED LIST changes: +DEXAMETHASONE 10 MG/ML (DECADRON) 1 ML VIAL IV ONE; +LORazepam INJ 2 MG/ML (ATIVAN) VIAL IVP ONE; +NS IV 1000 ML 1,000 ML IV STA; +ONDA4TAB11 PO; +ONDANSETRON 4 MG/2 ML (SDV) Z0FRAN IVP ONE; +fentaNYL INJECTION 100 MCG/2 ML AMP IVP PRN
[2018-10-09 11:45] VITALS: BP 152/92
[2018-10-09 12:55] LABS: BILIRUBIN,URINE NEGATIVE (NEGATIVE); CLARITY,URINE CLEAR; COLOR,URINE YELLOW; GLUCOSE, URINE (UA) NEGATIVE (NEGATIVE); KETONES,URINE NEGATIVE (NEGATIVE); LEUKOCYTE ESTERASE ,URINE NEGATIVE (NEGATIVE); NITRITE,URINE NEGATIVE (NEGATIVE); PH,URINE 7 (5-9); PROTEIN,URINE NEGATIVE (NEGATIVE); UROBILINOGEN,URINE NORMAL (NORMAL)
[2018-10-09 12:55] LABS: BASOPHILS # (AUTO) 0.1 10^3/uL (0.0-0.1); BASOPHILS % (AUTO) 1 % (0-10); EOSINOPHILS # (AUTO) 0.1 10^3/uL (0.0-0.3); EOSINOPHILS % (AUTO) 1 % (0-10); HEMATOCRIT 45 % (35-52); HEMOGLOBIN 15.1 G/DL (11.5-16.0); LYMPHOCYTES # (AUTO) 1.8 X 10^3 (1.0-4.0); LYMPHOCYTES % (AUTO) 21 % (12-44); MEAN CORPUSCULAR HEMOGLOBIN 30 PG (25-34); MEAN CORPUSCULAR HGB CONC 34 G/DL (32-36); MEAN CORPUSCULAR VOLUME 87 FL (80-99); MEAN PLATELET VOLUME 8.8 FL (7.4-10.4); MONOCYTES # (AUTO) 0.6 X 10^3 (0.0-1.0); MONOCYTES % (AUTO) 7 % (0-12); NEUTROPHILS # (AUTO) 6.1 X 10^3 (1.8-7.8); NEUTROPHILS % (AUTO) 70 % (42-75); PLATELET COUNT 267 10^3/uL (130-400); RED BLOOD COUNT 5.12 10^6/uL (4.35-5.85); RED CELL DISTRIBUTION WIDTH 14.5 % (10.0-14.5); WHITE BLOOD COUNT 8.7 10^3/uL (4.3-11.0)
[2018-10-09 13:07] LABS: ALBUMIN 4.3 GM/DL (3.2-4.5); BILIRUBIN,TOTAL 0.4 MG/DL (0.1-1.0); CALCIUM 9.7 MG/DL (8.5-10.1); CREATININE SERUM 0.98 MG/DL (0.60-1.30); MAGNESIUM 2.1 MG/DL (1.8-2.4); POTASSIUM 4.1 MMOL/L (3.6-5.0); TOTAL PROTEIN 8.1 GM/DL (6.4-8.2)
[2018-10-09 13:23] LABS: BACTERIA,URINE NEGATIVE /HPF; RBC,URINE RARE /HPF; WBC,URINE RARE /HPF
--- NOTE | 2018-10-09 13:24 | ED General ---
General Chief Complaint: Abdominal/GI Problems Stated Complaint: N/V Nursing Triage Note: pt presents to ed with complaints of abdominal pain, cramping, neck and shoulder pain x 1 week. pt reports she has decreased appetite but has still been drinking sips of water. pt also reports anxiety. Nursing Sepsis Screen: No Definite Risk Source of Information: Patient Exam Limitations: No Limitations History of Present Illness Date Seen by Provider: Oct 09, 2018 Time Seen by Provider: 12:38 Initial Comments Here with complaint of overall body aches especially of the neck and upper back and shoulders for the last week. States that she's had some nausea and vomiting. Also reports that she is anxious. Does have history of pericardial effusion as well as COPD. She does continue to smoke. Does have history of diabetes. Overall anxious and asking for anxiety medicine currently. Timing/Duration: 1 Week, Changing Over Time, Getting Worse Severity: Moderate Modifying Factors: improves with Rest Associated Systoms: Cough; No Fever/Chills; Nausea/Vomiting, Shortness of Air, Weakness Allergies and Home Medications Allergies Coded Allergies: buspirone HCl (Verified Allergy, Unknown, 08/14/15) etodolac (Verified Allergy, Unknown, 08/14/15) NSAIDS (Non-Steroidal Anti-Inflamma (Verified Adverse Reaction, Unknown, 08/14/15) Neuromuscular Blockers, Steroidal (Verified Adverse Reaction, Unknown, ) gabapentin (Verified Adverse Reaction, Unknown, 08/14/15) Home Medications Albuterol Sulfate 1 Puff Puff, 2 PUFF INH QID PRN for SHORTNESS OF BREATH, ( Reported) Albuterol Sulfate 2.5 Mg/3 Ml Vial.neb, 2.5 MG NEB Q4H PRN for SHORTNESS OF BREATH, (Reported) Alprazolam 0.5 Mg Tablet, 0.5 MG PO TID PRN for ANXIETY, (Reported) Amlodipine Besylate 10 Mg Tablet, 10 MG PO DAILY, (Reported) Artificial Tears 15 Ml Soln, 1 DROP OU Q4H PRN for DRY EYES, (Reported) Aspirin 325 Mg Tablet.dr, 325 MG PO DAILY, (Reported) Atenolol 50 Mg Tablet, 50 MG PO HS, (Reported) Cetirizine HCl 10 Mg Tablet, 10 MG PO DAILY, (Reported) Cholecalciferol (Vitamin D3) 5,000 Unit Tablet, 5,000 UNIT PO DAILY, (Reported) Clonidine HCl 0.1 Mg Tablet, 0.1 MG PO TID, (Reported) Dicyclomine HCl 20 Mg Tablet, 20 MG PO QID PRN for STOMACH UPSET, (Reported) Docusate Sodium 100 Mg Capsule, 100 MG PO BID PRN for CONSTIPATION-1ST LINE, ( Reported) Enalapril Maleate 20 Mg Tablet, 10 MG PO BID, (Reported) take 1/2 of 20mg tab Fluticasone Propionate 16 Gm [place].susp, 1 SPRAY NSEACH BID, (Reported) Fluticasone/Salmeterol 1 Each Blst.w.dev, 1 PUFF IH BID, (Reported) Lactobacillus Acidophilus 1 Each Capsule, 1 CAP PO DAILY, (Reported) [place] 3 Polyunsat Fatty Acids 1,000 Mg Cap, 2,000 MG PO DAILY, (Reported) take 2 (1000mg) tabs Omeprazole 40 Mg Capsule.dr, 40 MG PO DAILY, (Reported) Ranitidine HCl 150 Mg Tablet, 150 MG PO BID, (Reported) Simethicone 125 Mg Tab.chew, 2 TAB PO BID PRN for GAS, (Reported) Patient Home Medication List Home Medication List Reviewed: Yes Review of Systems Review of Systems Constitutional: see HPI, malaise EENTM: nose congestion; No throat pain Respiratory: cough, short of breath Cardiovascular: chest pain, palpitations Gastrointestinal: abdominal pain, nausea Genitourinary: no symptoms reported Musculoskeletal: see HPI, back pain, muscle pain, neck pain Skin: no symptoms reported Psychiatric/Neurological: Anxiety, Emotional Problems All Other Systems Reviewed Negative Unless Noted: Yes Past Jtxqktl-Bgyfui-Zkwiku Hx Past Med/Social Hx: Reviewed Nursing Past Med/Soc Hx Patient Social History Alcohol Use: Denies Use Recreational Drug Use: No Smoking Status: Current Everyday Smoker Type Used: Cigarettes 2nd Hand Smoke Exposure: Yes Recent Foreign Travel: No Contact w/Someone Who Travel: No Recent Infectious Disease Expo: No Recent Hopitalizations: Yes (SEPSIS 10/2017) Physical Abuse: No Sexual Abuse: No Mistreated: No Fear: No Immunizations Up To Date Tetanus Booster (TDap): Unknown Date of Pneumonia Vaccine: Aug 07, 2018 Date of Influenza Vaccine: Nov 08, 2017 Seasonal Allergies Seasonal Allergies: Yes Past Medical History Surgeries: Yes (pericardial window, c/s x2) Abdominal, Appendectomy, Cardiac, Section, Gallbladder, Hysterectomy, Oophorectomy Respiratory: Yes Asthma, Pneumonia, Pulmonary Embolism, Sleep Apnea, COPD, Emphysema Currently Using CPAP: No Currently Using BIPAP: No Cardiac: Yes (Pericardial effusion-S/P PERICARDIAL WINDOW 08/2017) Atrial Fibrillation, Chronic Edema/Swelling, Deep Vein Thrombosis, High Cholesterol, Hypertension Neurological: Yes (PSEUDO SEIZURES ) Seizure Disorder 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 Disorders: Yes 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 History: Hysterectomy, 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, Menopausal Genitourinary: No Gastrointestinal: Yes (CHOKES EASILY) Abdominal Hernia, Gastroesophageal Reflux, Diverticulosis, Hiatal Hernia, Ulcer , Irritable Bowel Musculoskeletal: Yes (CHRONIC KNEE AND HIP PAIN, SPINAL STENOSIS) Degenerate Disk Disease, Osteoporosis, Arthritis, Chronic Back Pain Endocrine: No HEENT: No Cancer: No Psychosocial: Yes Pseudo Seizures, Anxiety, Depression Integumentary: Yes Eczema Blood Disorders: No Adverse Reaction/Blood Tranf: No Family Medical History Reviewed Nursing Family Hx FH: cirrhosis 19 MOTHER FH: liver cancer 19 MOTHER FHx: lung cancer 19 FATHER Hypertension 19 FATHER 19 MOTHER Physical Exam Vital Signs Vital Signs - First Documented 10/09/18 11:45 Pulse 62 Resp 20 B/P (MAP) 152/92 (112) Pulse Ox 99 Capillary Refill : Less Than 3 Seconds Height, Weight, BMI Height: 5'9.00" Weight: 200lbs. 0.0oz. [id number]; 28.9 BMI Method:Estimated General Appearance: WD/WN, Anxious HEENT: PERRL/EOMI, Pharyngeal Erythema Neck: Full Range of Motion, Normal Inspection Respiratory: No Respiratory Distress, Rhonci, Other (coarse cough) Cardiovascular: Regular Rate, Rhythm, No Murmur Gastrointestinal: Non Tender, Soft Back: Normal Inspection, No CVA Tenderness, No Vertebral Tenderness Extremity: Normal Inspection, Normal Range of Motion, Non Tender Neurologic/Psychiatric: Alert, Oriented x3 Skin: Normal Color, Warm/Dry Progress/Results/Core Measures Suspected Sepsis Recent Fever Within 48 Hours: No Infection Criteria Present: None New/Unexplained Altered Menta: No Sepsis Screen: No Definite Risk SIRS Temperature: Pulse: 62 Respiratory Rate: 20 Laboratory Tests 10/09/18 11:34: White Blood Count 8.7 Blood Pressure 152 /92 Mean: 112 Laboratory Tests 10/09/18 11:34: Creatinine 0.98, Platelet Count 267, Total Bilirubin 0.4 Results/Orders Lab Results Laboratory Tests Test 10/09/18 11:34 10/09/18 11:57 Range/Units White Blood Count 8.7 4.3-11.0 10^3/uL Red Blood Count 5.12 4.35-5.85 10^6/uL Hemoglobin 15.1 11.5-16.0 G/DL Hematocrit 45 35-52 % Mean Corpuscular Volume 87 80-99 FL Mean Corpuscular Hemoglobin 30 25-34 PG Mean Corpuscular Hemoglobin Concent 34 32-36 G/DL Red Cell Distribution Width 14.5 10.0-14.5 % Platelet Count 267 130-400 10^3/uL Mean Platelet Volume 8.8 7.4-10.4 FL Neutrophils (%) (Auto) 70 42-75 % Lymphocytes (%) (Auto) 21 12-44 % Monocytes (%) (Auto) 7 0-12 % Eosinophils (%) (Auto) 1 0-10 % Basophils (%) (Auto) 1 0-10 % Neutrophils # (Auto) 6.1 1.8-7.8 X 10^3 Lymphocytes # (Auto) 1.8 1.0-4.0 X 10^3 Monocytes # (Auto) 0.6 0.0-1.0 X 10^3 Eosinophils # (Auto) 0.1 0.0-0.3 10^3/uL Basophils # (Auto) 0.1 0.0-0.1 10^3/uL Sodium Level 137 135-145 MMOL/L Potassium Level 4.1 3.6-5.0 MMOL/L Chloride Level 101 98-107 MMOL/L Carbon Dioxide Level 25 21-32 MMOL/L Anion Gap 11 5-14 MMOL/L Blood Urea Nitrogen 10 7-18 MG/DL Creatinine 0.98 0.60-1.30 MG/DL Estimat Glomerular Filtration Rate 59 BUN/Creatinine Ratio 10 Glucose Level 125 H 70-105 MG/DL Calcium Level 9.7 8.5-10.1 MG/DL Corrected Calcium 9.5 8.5-10.1 MG/DL Magnesium Level 2.1 1.8-2.4 MG/DL Total Bilirubin 0.4 0.1-1.0 MG/DL Aspartate Amino Transf (AST/SGOT) 14 5-34 U/L Alanine Aminotransferase (ALT/SGPT) 10 0-55 U/L Alkaline Phosphatase 76 40-136 U/L C-Reactive Protein High Sensitivity 2.12 H 0.00-0.50 MG/DL Total Protein 8.1 6.4-8.2 GM/DL Albumin 4.3 3.2-4.5 GM/DL Urine Color YELLOW Urine Clarity CLEAR Urine pH 7 5-9 Urine Specific [place] 1.010 L 1.016-1.022 Urine Protein NEGATIVE NEGATIVE Urine Glucose (UA) NEGATIVE NEGATIVE Urine Ketones NEGATIVE NEGATIVE Urine Nitrite NEGATIVE NEGATIVE Urine Bilirubin NEGATIVE NEGATIVE Urine Urobilinogen NORMAL NORMAL MG/DL Urine Leukocyte Esterase NEGATIVE NEGATIVE Urine RBC (Auto) 1+ H NEGATIVE Urine RBC RARE /HPF Urine WBC RARE /HPF Urine Squamous Epithelial Cells 2-5 /HPF Urine Crystals NONE /LPF Urine Bacteria NEGATIVE /HPF Urine Casts NONE /LPF Urine Mucus NEGATIVE /LPF Urine Culture Indicated NO Micro Results Microbiology 10/09/18 Influenza Types A,B Antigen (RACHEL) - Final, Complete My Orders Orders - OZIEL MONREAL MD Cbc With Automated Diff (10/09/18 12:45) Comprehensive Metabolic Panel (10/09/18 12:45) Hs C Reactive Protein (10/09/18 12:45) Magnesium (10/09/18 12:45) Ua Culture If Indicated (10/09/18 12:45) Influenza A And B Antigens (10/09/18 12:45) Chest 1 View, Ap/Pa Only (10/09/18 12:45) Ondansetron Injection (Zofran Injectio (10/09/18 12:45) Ns Iv 1000 Ml (Sodium Chloride 0.9%) (10/09/18 12:45) Saline Lock/Iv-Start (10/09/18 12:45) Lorazepam Injection (Ativan Injection) (10/09/18 12:45) Fentanyl Injection (Sublimaze Injection (10/09/18 14:45) Dexamethasone Injection (Decadron Inject (10/09/18 16:00) Medications Given in ED Current Medications Medications Dose Ordered Sig/Tino Route Start Time Stop Time Status Last Admin Dose Admin Fentanyl Citrate 75 mcg ONCE PRN IVP 10/09/18 14:45 10/09/18 14:46 75 MCG Lorazepam 0.5 mg ONCE ONCE IVP 10/09/18 12:45 10/09/18 12:49 DC 10/09/18 13:13 0.5 MG Ondansetron HCl 4 mg ONCE ONCE IVP 10/09/18 12:45 10/09/18 12:49 DC 10/09/18 13:13 4 MG Vital Signs/I&O 10/09/18 11:45 Pulse 62 Resp 20 B/P (MAP) 152/92 (112) Pulse Ox 99 Capillary Refill : Less Than 3 Seconds Blood Pressure Mean: 112 Progress Note : Progress Note Seen and evaluated. IV, labs, UA, chest x-ray, normal saline 1 L bolus, Zofran 4 mg IV and Xanax 0.5 mg IV ordered. Monitor patient. Fentanyl 75 g ordered for pain. 1545: Reviewed all findings. No significant abnormalities noted. We will give Decadron 10 mg IV for probable COPD and initiate outpatient antibiotic for upper respiratory infection. Patient was okay with that. Discharged home with return precautions. Patient verbalize understanding instructions and agreement with plan. Diagnostic Imaging Diagonstic Imaging: Xray Plain Films/CT/US/NM/MRI: chest Comments [facility]. [place], [place] NAME: MAHNAZ VANCE [facility] REC#: [id number] PT STATUS: REG ER : 1965 PHYSICIAN: OZIEL MONREAL MD ADMIT DATE: 10/09/18/ER Draft Date of Exam:10/09/18 CHEST 1 VIEW, AP/PA ONLY INDICATION: Nausea and vomiting. Time of exam 1:21 PM Correlation is made with prior study from 08/21/2018. The heart size is normal. The pulmonary vascularity is unremarkable. The lungs are clear. No infiltrate, effusion or pneumothorax is detected. Impression: No acute cardiopulmonary process is detected. Dictated on workstation # [id number] Dict: 10/09/18 1334 Trans: 10/09/18 1337 [facility] [id number] Interpreted by: BRANDAN MANRIQUE MD Electronically signed by: Departure Impression Primary Impression: Acute bronchitis Qualified Codes: J20.9 - Acute bronchitis, unspecified Additional Impressions: Nausea and vomiting Qualified Codes: R11.2 - Nausea with vomiting, unspecified Anxiety Disposition: HOME, SELF-CARE Condition: Stable Departure-Patient Inst. Decision time for Depature: 16:01 Referrals: [facility] (PCP/Family) Primary Care Physician Patient Instructions: Acute Bronchitis, Adult (DC), Anxiety, Adult (DC), Nausea and Vomiting, Adult (DC) Add. Discharge Instructions: All discharge instructions reviewed with patient and/or family. Voiced understanding. Follow-up with your Dr. in a few days for recheck. Return for worsening, fever , vomiting, weakness, breathing problems or other concerns as needed. Take medications as directed. Clear liquid diet for 24 hours and then advance as tolerated. Scripts Ondansetron (Ondansetron Odt) 4 Mg Tab.rapdis 4 MG PO Q6H PRN for NAUSEA/VOMITING, #8 TAB 0 Refills Prov: OZIEL MONREAL MD 10/09/18 Azithromycin (Azithromycin) 250 Mg Tablet 250 MG PO UD, #6 TAB TAKE 2 TABLETS ON DAY ONE THEN TAKE 1 TABLET DAILY FOR FOUR MORE DAYS Prov: OZIEL MONREAL MD 10/09/18 OZIEL MONREAL MD Oct 09, 2018 13:24
--- NOTE | 2018-10-09 13:37 | Diagnostic Imaging Report ---
INDICATION: Nausea and vomiting. Time of exam 1:21 PM Correlation is made with prior study from 08/21/2018. The heart size is normal. The pulmonary vascularity is unremarkable. The lungs are clear. No infiltrate, effusion or pneumothorax is detected. Impression: No acute cardiopulmonary process is detected. Dictated by: Dictated on workstation # [id number]
== END | disposition home or self-care (01) ==
LOC: EDUNIT# 11:23 → ER 11:27
DX: J44.0 Chronic obstructive pulmonary disease with (acute) lower respiratory infection (principal); J20.9 Acute bronchitis, unspecified; R11.2 Nausea with vomiting, unspecified; F41.9 Anxiety disorder, unspecified; G47.30 Sleep apnea, unspecified; I48.91 Unspecified atrial fibrillation; E78.00 Pure hypercholesterolemia, unspecified; I10 Essential (primary) hypertension; G40.909 Epilepsy, unspecified, not intractable, without status epilepticus; E11.9 Type 2 diabetes mellitus without complications; K21.9 Gastro-esophageal reflux disease without esophagitis; K58.9 Irritable bowel syndrome, unspecified; M81.0 Age-related osteoporosis without current pathological fracture; F32.9 Major depressive disorder, single episode, unspecified; F17.210 Nicotine dependence, cigarettes, uncomplicated; Z88.4 Allergy status to anesthetic agent; Z86.718 Personal history of other venous thrombosis and embolism; Z88.6 Allergy status to analgesic agent; Z88.8 Allergy status to other drugs, medicaments and biological substances; Z87.19 Personal history of other diseases of the digestive system; Z80.0 Family history of malignant neoplasm of digestive organs; Z80.1 Family history of malignant neoplasm of trachea, bronchus and lung; Z87.01 Personal history of pneumonia (recurrent); Z86.711 Personal history of pulmonary embolism; Z79.51 Long term (current) use of inhaled steroids; Z79.82 Long term (current) use of aspirin; Z90.49 Acquired absence of other specified parts of digestive tract; Z98.890 Other specified postprocedural states; Z90.710 Acquired absence of both cervix and uterus
CPT/HCPCS: 36415; 71045; 80053; 81000; 83735; 85025; 86141; 87804

== ENCOUNTER 2018-10-11 16:13 | Emergency (ER) | payer MEDICAID | END 2018-10-11 18:15 | disposition home or self-care (01) | LOC: ER 16:13 ==

== ENCOUNTER → 2018-11-11 | Outpatient (CLI) | payer MEDICAID ==
[~2018-11-11] MED LIST changes: -ACHD5005 PO; -ALBU17AE23 INH; -ALBU2.5V4 IH; -ALBU2.5V4 NEB; -ALBU8.5H2 IH; -ALPR.5T PO; -ALPR0.5T7 PO; -AMIO200T4 PO; -AMLO10TA6 PO; -AMLO5TAB7; -ASPI325T32 PO; -ATEN-156 PO; -ATEN100T PO; -ATEN100T88 PO; -ATEN50TA PO; -AZIT250T12 PO; -CALC-654 PO; -CALC-754 PO; -CALC-793 PO; -CEFD300C3 PO; -CETI10CA PO; -CETI10TA17 PO; -CHOL10003 PO; -CHOL500044 PO; -CLON0.1T PO; -CNC1KV IJ; -CYAN100053 IM; -CYCL10TA45 PO; -CYCL10TA9 PO; -D50KC PO; -DEXAMETHASONE 10 MG/ML (DECADRON) 1 ML VIAL IV ONE; -DICL75TA2 PO; -DICY10CA26 PO; -DICY20TA10 PO; -DIPH1TAB25 PO; -DOCU-143 PO; -DOXY100T2 PO; -ENAL20TA PO; -FLT05NA16 NSEACH; -FLUC150T2 PO; -FLUT16SP22 NSEACH; -FLUT1DIS26 INH; -FLUT1DIS27 IH; -FURO-125 PO; -FURO20TA4; -GFCD10B PO; -GUAI400T11 PO; -GUAI400T71 PO; -GUAI5SYR PO; -HYDR25CA PO; -HYOS0.1283 SL; -IBUP-1773 PO; +IOHEXOL 350 MG/ML 100 ML (OMNIPAQUE 350) VIAL IV ONE; -IPRA3AMP11 INH; -KETO10TA PO; -LACT1CAP28 PO; -LISI-552 PO; -LISI10TA PO; -LISI10TA2 PO; -LORazepam INJ 2 MG/ML (ATIVAN) VIAL IVP ONE; -LOSA25TA6 PO; -MECL25TA56 PO; +NS 100 ML (IVPB) BAG IV ONE; -NS IV 1000 ML 1,000 ML IV STA; -OMEP20CA6 PO; -OMEP20TA2 PO; -OMEP40CA36 PO; -OMG1KC PO; -ONDA4TAB11 PO; -ONDA4TAB8 PO; -ONDANSETRON 4 MG/2 ML (SDV) Z0FRAN IVP ONE; -OXB5T PO; -POTA10TA10; -PROC-1 PO; -RANI150T11 PO; +RECEIVED CONTRAST (Hold Metformin) IV SCH; -RNT150T PO; -RT-ALBUINH INH; -SIME125T PO; -SUCR1ORA5 PO; -TIZA4TAB3 PO; -TRAM50TA2 PO; -TRM50T PO; -VIT B 12 INJ; -VITAMIN D; -[UNRECOGNIZED DRUG - CODE] OU; -fentaNYL INJECTION 100 MCG/2 ML AMP IVP PRN
[2018-11-11 13:48] LABS: CREATININE SERUM 0.98 MG/DL (0.60-1.30)
--- NOTE | 2018-11-11 15:28 | Diagnostic Imaging Report ---
PROCEDURE: CT chest with contrast only. TECHNIQUE: Multiple contiguous axial images were obtained through the chest after administration of intravenous contrast. INDICATION: Lung nodules, followup. COMPARISON: 10/11/2018, 07/24/2018, and baseline study dated 08/29/2017. FINDINGS: There is no significant mediastinal, axillary and/or hilar lymphadenopathy. The heart size is unremarkable. Thoracic aorta normal in contour. Rather advanced centrilobular emphysematous changes about the lung parenchyma. No new infiltrate. The somewhat sessile nodular density in the medial right midlung field appears perhaps slightly more prominent but is located along the fissure plane and actually appears to reflect thickening along the fissure currently measuring 7 x 5 mm. Cholecystectomy clips are present. The visualized osseous structures demonstrate no acute findings. IMPRESSION: Relative stable CT chest examination. Area of nodularity along the fissure plane while may be slightly more prominent from baseline assessment has relative benign appearance likely reflecting thickening of the fissure. Advanced emphysematous changes about the lung parenchyma. Dictated by: Dictated on workstation # [id number]
== END ==
LOC: RAD 13:14
PROVIDERS: ATTEND Nurse Practitioner Family
DX: J43.9 Emphysema, unspecified (principal); J45.909 Unspecified asthma, uncomplicated; G47.9 Sleep disorder, unspecified; R91.8 Other nonspecific abnormal finding of lung field; F17.200 Nicotine dependence, unspecified, uncomplicated
CPT/HCPCS: 36415; 71260; 82565; 84520

== ENCOUNTER → 2018-11-12 | Outpatient (CLI) | payer MEDICAID ==
[~2018-11-12] MED LIST changes: +ACHD5005 PO; +ALBU17AE23 INH; +ALBU2.5V4 IH; +ALBU2.5V4 NEB; +ALBU8.5H2 IH; +ALPR.5T PO; +ALPR0.5T7 PO; +AMIO200T4 PO; +AMLO10TA7 PO; +AMLO5TAB9; +ASPI325T32 PO; +ATEN-156 PO; +ATEN100T PO; +ATEN100T88 PO; +ATEN50TA PO; +AZIT250T12 PO; +CALC-654 PO; +CALC-754 PO; +CALC-793 PO; +CEFD300C3 PO; +CETI10CA PO; +CETI10TA17 PO; +CHOL10003 PO; +CHOL500044 PO; +CLON0.1T PO; +CNC1KV IJ; +CYAN100053 IM; +CYCL10TA45 PO; +CYCL10TA9 PO; +D50KC PO; +DICL75TA2 PO; +DICY10CA26 PO; +DICY20TA10 PO; +DIPH1TAB25 PO; +DOCU-143 PO; +DOXY100T2 PO; +ENAL20TA PO; +FLT05NA16 NSEACH; +FLUC150T2 PO; +FLUT16SP22 NSEACH; +FLUT1DIS26 INH; +FLUT1DIS27 IH; +FURO-125 PO; +FURO20TA4; +GFCD10B PO; +GUAI400T11 PO; +GUAI400T71 PO; +GUAI5SYR PO; +HYDR25CA PO; +HYOS0.1283 SL; +IBUP-1773 PO; -IOHEXOL 350 MG/ML 100 ML (OMNIPAQUE 350) VIAL IV ONE; +IPRA3AMP11 INH; +KETO10TA PO; +LACT1CAP28 PO; +LISI-552 PO; +LISI10TA PO; +LISI10TA2 PO; +LOSA25TA41 PO; +MECL25TA56 PO; -NS 100 ML (IVPB) BAG IV ONE; +OMEP20CA6 PO; +OMEP20TA2 PO; +OMEP40CA36 PO; +OMG1KC PO; +ONDA4TAB11 PO; +ONDA4TAB8 PO; +OXB5T PO; +POTA10TA10; +PROC-1 PO; +RANI150T11 PO; -RECEIVED CONTRAST (Hold Metformin) IV SCH; +RNT150T PO; +RT-ALBUINH INH; +RT-ALBUTEROL SULF 2.5 MG/3 ML PRE-MIX VIAL INH ONE; +SIME125T PO; +SUCR1ORA5 PO; +TIZA4TAB3 PO; +TRAM50TA2 PO; +TRM50T PO; +VIT B 12 INJ; +VITAMIN D; +[UNRECOGNIZED DRUG - CODE] OU
== END ==
LOC: RT 15:20
PROVIDERS: ATTEND Nurse Practitioner Family
DX: J44.9 Chronic obstructive pulmonary disease, unspecified (principal); R91.8 Other nonspecific abnormal finding of lung field; F17.200 Nicotine dependence, unspecified, uncomplicated; G47.30 Sleep apnea, unspecified; G47.50 Parasomnia, unspecified; G47.10 Hypersomnia, unspecified
CPT/HCPCS: 94060; 94726; 94729

== ENCOUNTER 2019-01-10 20:10 | Outpatient (CLI) | payer MEDICAID ==
[~2019-01-10 20:10] MED LIST changes: -RT-ALBUTEROL SULF 2.5 MG/3 ML PRE-MIX VIAL INH ONE
== END 2019-01-11 06:05 | disposition home or self-care (01) ==
LOC: SLEEP 20:10
PROVIDERS: ATTEND Nurse Practitioner Family
DX: G47.10 Hypersomnia, unspecified (principal); G47.50 Parasomnia, unspecified; G47.30 Sleep apnea, unspecified; F17.200 Nicotine dependence, unspecified, uncomplicated; J44.9 Chronic obstructive pulmonary disease, unspecified; R91.8 Other nonspecific abnormal finding of lung field
CPT/HCPCS: 95810

== ENCOUNTER → 2019-01-20 | Outpatient (CLI) | payer MEDICAID | LOC: RT 15:31 | PROVIDERS: ATTEND Internal Medicine Critical Care Medicine | DX: J44.9 Chronic obstructive pulmonary disease, unspecified (principal); R91.8 Other nonspecific abnormal finding of lung field; G47.50 Parasomnia, unspecified; G47.10 Hypersomnia, unspecified; G47.36 Sleep related hypoventilation in conditions classified elsewhere; Z72.0 Tobacco use ==

== ENCOUNTER → 2019-01-21 | Outpatient (CLI) | payer MEDICAID ==
[2019-01-21 16:04] LABS: ABG OXYGEN SATURATION 99 % (94-100); ABG PCO2 44 MMHG (35-45); ABG PH 7.43 (7.37-7.43); ABG PO2 102 MMHG (79-93); ABG TCO2 30.7 MMOL/L (21.0-31.0)
[2019-01-21 16:05] LABS: ALLENS TEST YES-POS; INSPIRED O2 4L; PATIENT TEMP 96.8; VENTILATOR NO
--- NOTE | 2019-01-21 16:13 | Diagnostic Imaging Report ---
INDICATION: SMOKER, COPD, TOBACCO USE, LUNG NODULES, ASTHMA COMPARISON: 10/09/2018 FINDINGS: Frontal and lateral views of the chest demonstrate normal heart size and pulmonary vascularity. The lungs are clear. There are no signs of infiltrate, pleural effusions or pneumothoraces. The visualized osseous structures show no acute abnormalities. IMPRESSION: 1. No acute process. No signs of infiltrates, effusions or pneumothoraces. Dictated by: Dictated on workstation # [id number]
== END ==
LOC: RAD 14:49
PROVIDERS: ATTEND Nurse Practitioner Family
DX: J44.9 Chronic obstructive pulmonary disease, unspecified (principal); G47.50 Parasomnia, unspecified; G47.10 Hypersomnia, unspecified; G47.36 Sleep related hypoventilation in conditions classified elsewhere; R91.8 Other nonspecific abnormal finding of lung field; F17.200 Nicotine dependence, unspecified, uncomplicated
CPT/HCPCS: 36600; 71046; 82805

== ENCOUNTER 2019-03-02 09:19 | Outpatient (RCR) | payer MEDICAID ==
[~2019-03-02 09:19] MED LIST changes: -TIZA4TAB3 PO; +TIZA4TAB4 PO
[2019-03-31 10:45] VITALS: BP 150/60
[2019-03-31 12:00] VITALS: BP 143/90
[2019-04-02 10:45] VITALS: BP 156/90
[2019-04-02 11:45] VITALS: BP 130/87
[2019-04-14 11:40] VITALS: BP 130/70
[2019-04-14 11:43] VITALS: BP 150/60
[2019-04-16 10:45] VITALS: BP 150/80
[2019-04-16 12:06] VITALS: BP 150/90
[2019-04-28 11:20] VITALS: BP 130/60
[2019-04-28 11:50] VITALS: BP 128/70
[2019-05-07] MEDS ORDERED: CEFU250T80 PO (14:49)
[2019-05-07] MEDS ORDERED: PRD20T PO (14:49)
== END 2019-05-31 | disposition home or self-care (01) ==
LOC: PULM 09:19
PROVIDERS: ATTEND Nurse Practitioner Family
DX: J44.9 Chronic obstructive pulmonary disease, unspecified (principal); R91.8 Other nonspecific abnormal finding of lung field; G47.10 Hypersomnia, unspecified; G47.50 Parasomnia, unspecified; G47.36 Sleep related hypoventilation in conditions classified elsewhere; Z72.0 Tobacco use
CPT/HCPCS: 99211

== ENCOUNTER 2019-05-07 13:25 | Emergency (ER) | payer MEDICAID ==
[~2019-05-07] VITALS: Ht 172.7 cm; Wt 91.2 kg
[2019-05-07] MEDS ORDERED: cloNIDine 0.1 MG (CATAPRES) TAB PO ONE (13:45)
[2019-05-07] MEDS ORDERED: ONDANSETRON 4 MG/2 ML (SDV) Z0FRAN IVP ONE (13:45)
[2019-05-07] MEDS ORDERED: RT-ALBUTEROL/IPRATROPIUM 3 ML (DUONEB) VIAL INH ONE (13:45)
[2019-05-07 13:49] LABS: BASOPHILS # (AUTO) 0.1 10^3/uL (0.0-0.1); BASOPHILS % (AUTO) 1 % (0-10); EOSINOPHILS # (AUTO) 0.1 10^3/uL (0.0-0.3); EOSINOPHILS % (AUTO) 1 % (0-10); HEMATOCRIT 43 % (35-52); HEMOGLOBIN 14.2 G/DL (11.5-16.0); LYMPHOCYTES # (AUTO) 1.8 X 10^3 (1.0-4.0); LYMPHOCYTES % (AUTO) 20 % (12-44); MEAN CORPUSCULAR HEMOGLOBIN 28 PG (25-34); MEAN CORPUSCULAR HGB CONC 33 G/DL (32-36); MEAN CORPUSCULAR VOLUME 86 FL (80-99); MEAN PLATELET VOLUME 8.5 FL (7.4-10.4); MONOCYTES # (AUTO) 0.6 X 10^3 (0.0-1.0); MONOCYTES % (AUTO) 6 % (0-12); NEUTROPHILS # (AUTO) 6.4 X 10^3 (1.8-7.8); NEUTROPHILS % (AUTO) 72 % (42-75); PLATELET COUNT 271 10^3/uL (130-400); RED CELL DISTRIBUTION WIDTH 13.9 % (10.0-14.5)
--- NOTE | 2019-05-07 13:51 | ED General ---
General Chief Complaint: General Problems/Pain Stated Complaint: WEAKNESS;R FOOT SWELLING;NAUSEA Nursing Triage Note: Pt to room #6 via ED w/c by ED staff with c/o generalized weakness, fatigue, nausea, rt foot swelling, and increased SOA. Pt reports increased swelling to rt foot (+2 edema noted). Pt reports she noramlly wears 2L O2 but is requiring 4L O2 via NC @ this time. Pt reports weakness and soa began on 05/06/19. Nursing Sepsis Screen: No Definite Risk Source of Information: Patient Exam Limitations: No Limitations History of Present Illness Date Seen by Provider: May 07, 2019 Time Seen by Provider: 13:48 Initial Comments To ER with reports of generalized weakness fatigue and increasing shortness of breath since last night. She also reports an increased cough. She has COPD and wears oxygen at 4 L [id number]. She noticed that her SPO2 was about 80% on her baseline 4 L. Typically she runs 97% on liters. On arrival here she is 96% on arrival at 4 L. No fevers or chills. He does report chronic swelling in the right leg and foot for the past year. History of pericardial effusion with subsequent pericardial window several years ago. Follow-up with Dr. Campbell. Timing/Duration: 1-2 Days Severity: Moderate Associated Systoms: Denies Symptoms Allergies and Home Medications Allergies Coded Allergies: buspirone HCl (Verified Allergy, Unknown, 10/11/18) etodolac (Verified Allergy, Unknown, 10/11/18) NSAIDS (Non-Steroidal Anti-Inflamma (Verified Adverse Reaction, Unknown, 10/11/18) Neuromuscular Blockers, Steroidal (Verified Adverse Reaction, Unknown, 10/11/18) gabapentin (Verified Adverse Reaction, Unknown, 10/11/18) Home Medications Albuterol Sulfate 1 Puff Puff, 2 PUFF INH QID PRN for SHORTNESS OF BREATH, (Reported) Albuterol Sulfate 2.5 Mg/3 Ml Vial.neb, 2.5 MG NEB Q4H PRN for SHORTNESS OF BREATH, (Reported) Alprazolam 0.5 Mg Tablet, 0.5 MG PO TID PRN for ANXIETY, (Reported) Amlodipine Besylate 10 Mg Tablet, 10 MG PO DAILY, (Reported) Artificial Tears 15 Ml Soln, 1 DROP OU Q4H PRN for DRY EYES, (Reported) Aspirin 325 Mg Tablet.dr, 325 MG PO DAILY, (Reported) Atenolol 50 Mg Tablet, 50 MG PO HS, (Reported) Azithromycin 250 Mg Tablet, 250 MG PO UD TAKE 2 TABLETS ON DAY ONE THEN TAKE 1 TABLET DAILY FOR FOUR MORE DAYS Prescribed by: OZIEL MONREAL on 10/09/18 1605 Cetirizine HCl 10 Mg Tablet, 10 MG PO DAILY, (Reported) Cholecalciferol (Vitamin D3) 5,000 Unit Tablet, 5,000 UNIT PO DAILY, (Reported) Clonidine HCl 0.1 Mg Tablet, 0.1 MG PO TID, (Reported) Dicyclomine HCl 20 Mg Tablet, 20 MG PO QID PRN for STOMACH UPSET, (Reported) Docusate Sodium 100 Mg Capsule, 100 MG PO BID PRN for CONSTIPATION-1ST LINE, (Reported) Enalapril Maleate 20 Mg Tablet, 10 MG PO BID, (Reported) take 1/2 of 20mg tab Fluticasone Propionate 16 Gm [place].susp, 1 SPRAY NSEACH BID, (Reported) Fluticasone/Salmeterol 1 Each Blst.w.dev, 1 PUFF IH BID, (Reported) Lactobacillus Acidophilus 1 Each Capsule, 1 CAP PO DAILY, (Reported) [place] 3 Polyunsat Fatty Acids 1,000 Mg Cap, 2,000 MG PO DAILY, (Reported) take 2 (1000mg) tabs Omeprazole 40 Mg Capsule.dr, 40 MG PO DAILY, (Reported) Ondansetron 4 Mg Tab.rapdis, 4 MG PO Q6H PRN for NAUSEA/VOMITING Prescribed by: OZIEL MONREAL on 10/09/18 1605 Ranitidine HCl 150 Mg Tablet, 150 MG PO BID, (Reported) Simethicone 125 Mg Tab.chew, 2 TAB PO BID PRN for GAS, (Reported) Patient Home Medication List Home Medication List Reviewed: Yes Review of Systems Review of Systems Constitutional: see HPI, weakness EENTM: see HPI Respiratory: no symptoms reported Cardiovascular: no symptoms reported Musculoskeletal: see HPI Skin: no symptoms reported Psychiatric/Neurological: No Symptoms Reported Hematologic/Lymphatic: No Symptoms Reported Immunological/Allergic: no symptoms reported Past Nexetmc-Fnagwi-Zppqvq Hx Patient Social History Alcohol Use: Denies Use Recreational Drug Use: No Smoking Status: Current Everyday Smoker Type Used: Cigarettes 2nd Hand Smoke Exposure: Yes Recent Foreign Travel: No Contact w/Someone Who Travel: No Recent Infectious Disease Expo: No Recent Hopitalizations: Yes (SEPSIS 10/2017) Immunizations Up To Date Tetanus Booster (TDap): Unknown Date of Pneumonia Vaccine: Aug 07, 2018 Date of Influenza Vaccine: Nov 08, 2017 Seasonal Allergies Seasonal Allergies: Yes Past Medical History Surgeries: Yes (pericardial window, c/s x2) Abdominal, Appendectomy, Cardiac, Section, Gallbladder, Hysterectomy, Oophorectomy Respiratory: Yes Asthma, Pneumonia, Pulmonary Embolism, Sleep Apnea, COPD, Emphysema Currently Using CPAP: No Currently Using BIPAP: No Cardiac: Yes (Pericardial effusion-S/P PERICARDIAL WINDOW 08/2017) Atrial Fibrillation, Chronic Edema/Swelling, Deep Vein Thrombosis, High Cholesterol, Hypertension Neurological: Yes (PSEUDO SEIZURES ) Seizure Disorder 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 Disorders: Yes 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, 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, Menopausal Genitourinary: No Gastrointestinal: Yes (CHOKES EASILY) Abdominal Hernia, Gastroesophageal Reflux, Diverticulosis, Hiatal Hernia, Ulcer, Irritable Bowel Musculoskeletal: Yes (CHRONIC KNEE AND HIP PAIN, SPINAL STENOSIS) Degenerate Disk Disease, Osteoporosis, Arthritis, Chronic Back Pain Endocrine: No HEENT: No Cancer: No Psychosocial: Yes Pseudo Seizures, Anxiety, Depression Integumentary: Yes Eczema Blood Disorders: No Adverse Reaction/Blood Tranf: No Family Medical History FH: cirrhosis 19 MOTHER FH: liver cancer 19 MOTHER FHx: lung cancer 19 FATHER Hypertension 19 FATHER 19 MOTHER Physical Exam Vital Signs Vital Signs - First Documented 05/07/19 13:30 Temp 98.4 Pulse 96 Resp 18 B/P (MAP) 168/103 (124) Pulse Ox 96 O2 Delivery Nasal Cannula O2 Flow Rate 4.00 Capillary Refill : Less Than 3 Seconds Height, Weight, BMI Height: 5'8.00" Weight: 201lbs. 0.8oz. 91.589217cl; 28.9 BMI Method:Stated General Appearance: No Apparent Distress, WD/WN Eyes: Bilateral Eye Normal Inspection, Bilateral Eye PERRL, Bilateral Eye EOMI Neck: Full Range of Motion, Normal Inspection Respiratory: No Accessory Muscle Use, Decreased Breath Sounds, Wheezing Cardiovascular: Regular Rate, Rhythm, Normal Peripheral Pulses Gastrointestinal: Normal Bowel Sounds, Non Tender, Soft Extremity: Normal Capillary Refill, Normal Inspection, Other (there is +2 pitting edema of the right foot that extends proximally to the mid right lower leg. There is some slight erythema to the dorsal aspect of the right foot. No draining wounds or obvious nidus of infection.) Neurologic/Psychiatric: Alert, Oriented x3 Skin: Normal Color, Warm/Dry Progress/Results/Core Measures Suspected Sepsis Recent Fever Within 48 Hours: No Infection Criteria Present: Suspected New Infection New/Unexplained Altered Menta: No Sepsis Screen: No Definite Risk SIRS Temperature:98.4 Pulse: 96 Respiratory Rate: 18 Laboratory Tests 05/07/19 13:35: White Blood Count 9.0 Blood Pressure 168 /103 Mean: 124 Laboratory Tests 05/07/19 13:35: Creatinine 0.74, Platelet Count 271, Total Bilirubin 0.4 Results/Orders Lab Results Laboratory Tests Test 05/07/19 13:35 05/07/19 14:24 Range/Units White Blood Count 9.0 4.3-11.0 10^3/uL Red Blood Count 5.02 4.35-5.85 10^6/uL Hemoglobin 14.2 11.5-16.0 G/DL Hematocrit 43 35-52 % Mean Corpuscular Volume 86 80-99 FL Mean Corpuscular Hemoglobin 28 25-34 PG Mean Corpuscular Hemoglobin Concent 33 32-36 G/DL Red Cell Distribution Width 13.9 10.0-14.5 % Platelet Count 271 130-400 10^3/uL Mean Platelet Volume 8.5 7.4-10.4 FL Neutrophils (%) (Auto) 72 42-75 % Lymphocytes (%) (Auto) 20 12-44 % Monocytes (%) (Auto) 6 0-12 % Eosinophils (%) (Auto) 1 0-10 % Basophils (%) (Auto) 1 0-10 % Neutrophils # (Auto) 6.4 1.8-7.8 X 10^3 Lymphocytes # (Auto) 1.8 1.0-4.0 X 10^3 Monocytes # (Auto) 0.6 0.0-1.0 X 10^3 Eosinophils # (Auto) 0.1 0.0-0.3 10^3/uL Basophils # (Auto) 0.1 0.0-0.1 10^3/uL Sodium Level 139 135-145 MMOL/L Potassium Level 3.9 3.6-5.0 MMOL/L Chloride Level 101 98-107 MMOL/L Carbon Dioxide Level 27 21-32 MMOL/L Anion Gap 11 5-14 MMOL/L Blood Urea Nitrogen 9 7-18 MG/DL Creatinine 0.74 0.60-1.30 MG/DL Estimat Glomerular Filtration Rate > 60 BUN/Creatinine Ratio 12 Glucose Level 130 H 70-105 MG/DL Calcium Level 9.5 8.5-10.1 MG/DL Corrected Calcium 9.3 8.5-10.1 MG/DL Total Bilirubin 0.4 0.1-1.0 MG/DL Aspartate Amino Transf (AST/SGOT) 10 5-34 U/L Alanine Aminotransferase (ALT/SGPT) 13 0-55 U/L Alkaline Phosphatase 88 40-136 U/L Troponin I < 0.028 <0.028 NG/ML B-Type Natriuretic Peptide 82.0 <100.0 PG/ML Total Protein 7.7 6.4-8.2 GM/DL Albumin 4.3 3.2-4.5 GM/DL My Orders Orders - EREN MCDONALD LABORER YARD Cbc With Automated Diff (05/07/19 13:40) Comprehensive Metabolic Panel (05/07/19 13:40) BNP (05/07/19 13:40) Troponin I (05/07/19 13:40) Ekg Tracing (05/07/19 13:40) Ua Culture If Indicated (05/07/19 13:40) Ed Iv/Invasive Line Start (05/07/19 13:40) Chest 1 View, Ap/Pa Only (05/07/19 13:40) Clonidine Tablet (Catapres Tablet) (05/07/19 13:45) Ondansetron Injection (Zofran Injectio (05/07/19 13:45) Us Venous Lower Ext Rt (05/07/19 13:41) Albuterol/Ipra Inhalation Soln (Duoneb I (05/07/19 13:45) Svn Small Volume Nebulizer (05/07/19 13:44) Medications Given in ED Current Medications Medications Dose Ordered Sig/Tino Route Start Time Stop Time Status Last Admin Dose Admin Albuterol/ Ipratropium 3 ml ONCE ONCE INH 05/07/19 13:45 05/07/19 13:46 DC 05/07/19 14:29 3 ML Clonidine HCl 0.1 mg ONCE ONCE PO 05/07/19 13:45 05/07/19 13:46 DC 05/07/19 13:48 0.1 MG Ondansetron HCl 4 mg ONCE ONCE IVP 05/07/19 13:45 05/07/19 13:46 DC 05/07/19 13:49 4 MG Vital Signs/I&O 05/07/19 05/07/19 13:30 14:31 Temp 98.4 Pulse 96 Resp 18 B/P (MAP) 168/103 (124) Pulse Ox 96 100 O2 Delivery Nasal Cannula Nasal Cannula O2 Flow Rate 4.00 4.00 Capillary Refill : Less Than 3 Seconds Blood Pressure Mean: 124 Departure Impression Primary Impression: COPD exacerbation Additional Impressions: Anxiety Right leg swelling Disposition: HOME, SELF-CARE Condition: Stable Departure-Patient Inst. Decision time for Depature: 14:48 Referrals: [facility] (PCP/Family) Primary Care Physician Patient Instructions: Exacerbation of COPD Add. Discharge Instructions: 1. Steroids and antibiotics as directed. Return to ER for any concerns. Wear the compression stocking on the right lower extremity during the day, take it off at night. All discharge instructions reviewed with patient and/or family. Voiced understanding. Scripts Cefuroxime Axetil (Cefuroxime) 250 Mg Tablet 250 MG PO BID, #10 TAB Prov: EREN MCDONALD APRN 05/07/19 Prednisone (Prednisone) 20 Mg Tab 40 MG PO DAILY, #8 TAB 0 Refills Prov: EREN MCDONALD APRN 05/07/19 EREN MCDONALD APRN May 07, 2019 13:51
[2019-05-07 14:02] LABS: ALANINE AMINOTRANSFERASE 13 U/L (0-55); ALBUMIN 4.3 GM/DL (3.2-4.5); ALKALINE PHOSPHATASE 88 U/L (40-136); BILIRUBIN,TOTAL 0.4 MG/DL (0.1-1.0); BUN/CREATININE RATIO 12; CALCIUM 9.5 MG/DL (8.5-10.1); CARBON DIOXIDE 27 MMOL/L (21-32); CHLORIDE 101 MMOL/L (98-107); CREATININE SERUM 0.74 MG/DL (0.60-1.30); GFR ESTIMATED > 60; GLUCOSE 130 MG/DL (70-105); POTASSIUM 3.9 MMOL/L (3.6-5.0); SODIUM 139 MMOL/L (135-145); TOTAL PROTEIN 7.7 GM/DL (6.4-8.2)
--- NOTE | 2019-05-07 14:06 | NUR ---
TO SONO PER W/C
--- NOTE | 2019-05-07 14:31 | Diagnostic Imaging Report ---
PROCEDURE: US right lower extremity venous. TECHNIQUE: Multiple real-time grayscale images were obtained over the right lower extremity in various projections. Additional spectral analysis and color Doppler duplex images were also obtained. INDICATION: Pain and swelling. FINDINGS: The right common femoral, superficial femoral, popliteal veins and tibial veins demonstrate normal response to compression, augmentation, and Valsalva. There are no right lower extremity fluid collections or masses. IMPRESSION: No evidence of deep vein thrombosis in the right lower extremity. Dictated by: Dictated on workstation # [id number]
[2019-05-07 14:34] LABS: BILIRUBIN,URINE NEGATIVE (NEGATIVE); CLARITY,URINE CLEAR; COLOR,URINE YELLOW; GLUCOSE, URINE (UA) NEGATIVE (NEGATIVE); KETONES,URINE NEGATIVE (NEGATIVE); LEUKOCYTE ESTERASE ,URINE NEGATIVE (NEGATIVE); NITRITE,URINE NEGATIVE (NEGATIVE); PH,URINE 5 (5-9); PROTEIN,URINE NEGATIVE (NEGATIVE); UROBILINOGEN,URINE NORMAL (NORMAL)
[2019-05-07] MEDS ORDERED: CEFU250T80 PO (14:49)
[2019-05-07] MEDS ORDERED: PRD20T PO (14:49)
[2019-05-07 14:52] LABS: BACTERIA,URINE NEGATIVE /HPF; RBC,URINE 0-2 /HPF; SQUAMOUS EPITHELIAL CELL,UR 0-2 /HPF
--- NOTE | 2019-05-07 15:02 | Diagnostic Imaging Report ---
INDICATION: Decreased oxygen saturation. TIME OF EXAM: 2:41 p.m. COMPARISON: Correlation is made with prior chest from 01/21/2019. FINDINGS: The heart size is stable. There is some density in the medial aspect of the left upper lobe overlying the medial clavicle. This is somewhat linear in orientation and may represent some atelectasis or scarring. Remainder of the lung monae are clear. The pulmonary vascularity is unremarkable. There is no effusion or pneumothorax. IMPRESSION: Scarring or atelectasis in the left upper lung. Study is otherwise unremarkable. Dictated by: Dictated on workstation # [id number]
[2019-05-07 15:09] VITALS: BP 144/80
== END 2019-05-07 15:09 | disposition home or self-care (01) ==
LOC: EDUNIT# 13:25 → ER 13:26
DX: J43.9 Emphysema, unspecified (principal); F41.9 Anxiety disorder, unspecified; M79.89 Other specified soft tissue disorders; J45.909 Unspecified asthma, uncomplicated; G47.30 Sleep apnea, unspecified; I10 Essential (primary) hypertension; E78.00 Pure hypercholesterolemia, unspecified; I48.91 Unspecified atrial fibrillation; G40.909 Epilepsy, unspecified, not intractable, without status epilepticus; K58.9 Irritable bowel syndrome, unspecified; K21.9 Gastro-esophageal reflux disease without esophagitis; M81.0 Age-related osteoporosis without current pathological fracture; F32.9 Major depressive disorder, single episode, unspecified; Z80.1 Family history of malignant neoplasm of trachea, bronchus and lung; Z82.49 Family history of ischemic heart disease and other diseases of the circulatory system; Z80.0 Family history of malignant neoplasm of digestive organs; Z87.19 Personal history of other diseases of the digestive system; Z98.51 Tubal ligation status; Z86.718 Personal history of other venous thrombosis and embolism; F17.210 Nicotine dependence, cigarettes, uncomplicated; Z90.49 Acquired absence of other specified parts of digestive tract; Z90.710 Acquired absence of both cervix and uterus; Z86.711 Personal history of pulmonary embolism; Z99.81 Dependence on supplemental oxygen; Z88.6 Allergy status to analgesic agent; Z88.8 Allergy status to other drugs, medicaments and biological substances; Z79.82 Long term (current) use of aspirin; Z79.51 Long term (current) use of inhaled steroids
CPT/HCPCS: 36415; 71045; 80053; 81000; 83880; 84484; 85025; 93005; 94640

== ENCOUNTER → 2019-05-21 | Outpatient (CLI) | payer MEDICAID ==
[~2019-05-21] MED LIST changes: +CEFU250T80 PO; +HOLD METFORMIN - RECEIVED CONTRAST 20 ML VIAL IV SCH; +IOHEXOL 350 MG/ML 100 ML (OMNIPAQUE 350) VIAL IV ONE; +NS 100 ML (IVPB) BAG IV ONE; +PRD20T PO
[2019-05-21 11:29] LABS: BUN/CREATININE RATIO 12; CREATININE SERUM 0.77 MG/DL (0.60-1.30); GFR ESTIMATED > 60
--- NOTE | 2019-05-21 14:02 | Diagnostic Imaging Report ---
PROCEDURE: CT chest with contrast only. TECHNIQUE: Multiple contiguous axial images were obtained through the chest after administration of intravenous contrast. Auto Exposure Controls were utilized during the CT exam to meet ALARA standards for radiation dose reduction. INDICATION: COPD. COMPARISON: Comparison with 11/11/2018. FINDINGS: A 6 mm average diameter fissural lymph node is seen along the horizontal fissure in the right lung. Lungs are moderate to severely emphysematous. No edema or pneumonia. No pleural effusion or pneumothorax. No other nodules are seen. Heart size is normal. No pericardial effusion. Aorta is normal in caliber. There is no axillary, supraclavicular or mediastinal lymphadenopathy. Limited views of the upper abdomen reveal changes of cholecystectomy. There are no suspicious osseous lesions. IMPRESSION: 1. Stable fissural lymph node, no specific followup is required. Dictated by: Dictated on workstation # [id number]
== END ==
LOC: RAD 10:46
PROVIDERS: ATTEND Nurse Practitioner Family
DX: J44.9 Chronic obstructive pulmonary disease, unspecified (principal); R91.8 Other nonspecific abnormal finding of lung field; Z72.0 Tobacco use
CPT/HCPCS: 36415; 71260; 82565; 84520

== ENCOUNTER 2019-07-02 12:12 | Emergency (ER) | payer MEDICAID ==
[~2019-07-02] VITALS: Ht 68 cm; Wt 90.5 kg
[~2019-07-02 12:12] MED LIST changes: -HOLD METFORMIN - RECEIVED CONTRAST 20 ML VIAL IV SCH; -IOHEXOL 350 MG/ML 100 ML (OMNIPAQUE 350) VIAL IV ONE; -NS 100 ML (IVPB) BAG IV ONE
[2019-07-02 13:00] VITALS: BP 169/98
[2019-07-02] MEDS ORDERED: DOXY100T2 PO (22:32)
[2019-07-02] MEDS ORDERED: PRD20T PO (22:32)
== END 2019-07-02 15:03 | disposition left against medical advice (07) ==
LOC: EDUNIT# 12:12 → ER 12:14
DX: R05 Cough (principal); R09.81 Nasal congestion; R20.2 Paresthesia of skin; M79.604 Pain in right leg
CPT/HCPCS: 99281

== ENCOUNTER 2019-07-02 21:26 | Emergency (ER) | payer MEDICAID ==
[~2019-07-02] VITALS: Ht 172.5 cm; Wt 90.5 kg
--- NOTE | 2019-07-02 21:37 | ED General ---
General Stated Complaint: CONGESTION,ABD PAIN Source of Information: Patient Exam Limitations: No Limitations History of Present Illness Date Seen by Provider: Jul 02, 2019 Time Seen by Provider: 21:35 Initial Comments To ER with a two-week history of productive cough and increasing shortness of breath. She wears oxygen [id number] at 3 L and 4 L at night. She's also had some constipation with a small bowel movement earlier this afternoon but no significant bowel movement for one week. Typically she does have a couple of days, she has IBS or constipation so she does deal constipation. No fevers. Son is ill with similar symptoms Timing/Duration: Other (2 weeks) Severity: Moderate Associated Systoms: Cough, Shortness of Air Allergies and Home Medications Allergies Coded Allergies: buspirone HCl (Verified Allergy, Unknown, 10/11/18) etodolac (Verified Allergy, Unknown, 10/11/18) NSAIDS (Non-Steroidal Anti-Inflamma (Verified Adverse Reaction, Unknown, 10/11/18) Neuromuscular Blockers, Steroidal (Verified Adverse Reaction, Unknown, 10/11/18) gabapentin (Verified Adverse Reaction, Unknown, 10/11/18) Home Medications Albuterol Sulfate 1 Puff Puff, 2 PUFF INH QID PRN for SHORTNESS OF BREATH, (Reported) Albuterol Sulfate 2.5 Mg/3 Ml Vial.neb, 2.5 MG NEB Q4H PRN for SHORTNESS OF BREATH, (Reported) Alprazolam 0.5 Mg Tablet, 0.5 MG PO TID PRN for ANXIETY, (Reported) Amlodipine Besylate 10 Mg Tablet, 10 MG PO DAILY, (Reported) Artificial Tears 15 Ml Soln, 1 DROP OU Q4H PRN for DRY EYES, (Reported) Aspirin 325 Mg Tablet.dr, 325 MG PO DAILY, (Reported) Atenolol 50 Mg Tablet, 50 MG PO HS, (Reported) Azithromycin 250 Mg Tablet, 250 MG PO UD TAKE 2 TABLETS ON DAY ONE THEN TAKE 1 TABLET DAILY FOR FOUR MORE DAYS Prescribed by: OZIEL MONREAL on 10/09/18 1605 Cefuroxime Axetil 250 Mg Tablet, 250 MG PO BID Prescribed by: EREN MCDONALD on 05/07/19 1449 Cetirizine HCl 10 Mg Tablet, 10 MG PO DAILY, (Reported) Cholecalciferol (Vitamin D3) 5,000 Unit Tablet, 5,000 UNIT PO DAILY, (Reported) Clonidine HCl 0.1 Mg Tablet, 0.1 MG PO TID, (Reported) Dicyclomine HCl 20 Mg Tablet, 20 MG PO QID PRN for STOMACH UPSET, (Reported) Docusate Sodium 100 Mg Capsule, 100 MG PO BID PRN for CONSTIPATION-1ST LINE, (Reported) Enalapril Maleate 20 Mg Tablet, 10 MG PO BID, (Reported) take 1/2 of 20mg tab Fluticasone Propionate 16 Gm [place].susp, 1 SPRAY NSEACH BID, (Reported) Fluticasone/Salmeterol 1 Each Blst.w.dev, 1 PUFF IH BID, (Reported) Lactobacillus Acidophilus 1 Each Capsule, 1 CAP PO DAILY, (Reported) [place] 3 Polyunsat Fatty Acids 1,000 Mg Cap, 2,000 MG PO DAILY, (Reported) take 2 (1000mg) tabs Omeprazole 40 Mg Capsule.dr, 40 MG PO DAILY, (Reported) Ondansetron 4 Mg Tab.rapdis, 4 MG PO Q6H PRN for NAUSEA/VOMITING Prescribed by: OZIEL MONREAL on 10/09/18 1605 Prednisone 20 Mg Tab, 40 MG PO DAILY Prescribed by: EREN MCDONALD on 05/07/19 1449 Ranitidine HCl 150 Mg Tablet, 150 MG PO BID, (Reported) Simethicone 125 Mg Tab.chew, 2 TAB PO BID PRN for GAS, (Reported) Patient Home Medication List Home Medication List Reviewed: Yes Review of Systems Review of Systems Constitutional: see HPI EENTM: see HPI Respiratory: see HPI, cough, short of breath Cardiovascular: no symptoms reported Genitourinary: no symptoms reported Musculoskeletal: no symptoms reported Skin: no symptoms reported Psychiatric/Neurological: No Symptoms Reported Hematologic/Lymphatic: No Symptoms Reported Past Rhkcfmb-Xvzlfb-Ldthbw Hx Patient Social History Type Used: Cigarettes 2nd Hand Smoke Exposure: Yes Recent Foreign Travel: No Contact w/Someone Who Travel: No Recent Hopitalizations: No Immunizations Up To Date Tetanus Booster (TDap): Unknown Date of Pneumonia Vaccine: Aug 07, 2018 Date of Influenza Vaccine: Nov 08, 2017 Seasonal Allergies Seasonal Allergies: Yes Past Medical History Surgeries: Yes (pericardial window, c/s x2lung thoracensis) Abdominal, Appendectomy, Cardiac, Section, Gallbladder, Hysterectomy, Oophorectomy Respiratory: Yes Asthma, Pneumonia, Pulmonary Embolism, Sleep Apnea, COPD, Emphysema Currently Using CPAP: No Currently Using BIPAP: No Cardiac: Yes (Pericardial effusion-S/P PERICARDIAL WINDOW 08/2017) Atrial Fibrillation, Chronic Edema/Swelling, Deep Vein Thrombosis, High Cholesterol, Hypertension Neurological: Yes (PSEUDO SEIZURES ) Seizure Disorder 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 Disorders: Yes Female 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 Disorders: 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, 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, Menopausal Genitourinary: No Gastrointestinal: Yes (CHOKES EASILY) Abdominal Hernia, Gastroesophageal Reflux, Diverticulosis, Hiatal Hernia, Ulcer, Irritable Bowel Musculoskeletal: Yes (CHRONIC KNEE AND HIP PAIN, SPINAL STENOSIS) Degenerate Disk Disease, Osteoporosis, Arthritis, Chronic Back Pain Endocrine: No HEENT: No Cancer: No Psychosocial: Yes Pseudo Seizures, Anxiety, Depression Integumentary: Yes Eczema Blood Disorders: No Adverse Reaction/Blood Tranf: No Family Medical History FH: cirrhosis 19 MOTHER FH: liver cancer 19 MOTHER FHx: lung cancer 19 FATHER Hypertension 19 FATHER 19 MOTHER Physical Exam Vital Signs Vital Signs - First Documented 07/02/19 21:28 Temp 35.4 Pulse 95 Resp 20 B/P (MAP) 160/103 (122) Pulse Ox 94 O2 Delivery Nasal Cannula O2 Flow Rate 3.00 Capillary Refill : Height, Weight, BMI Height: 5'8.00" Weight: 201lbs. 0.8oz. 91.078450jk; 195.00 BMI Method:Stated General Appearance: No Apparent Distress, WD/WN, Chronically ill Eyes: Bilateral Eye Normal Inspection, Bilateral Eye PERRL, Bilateral Eye EOMI Neck: No JVD Respiratory: No Accessory Muscle Use, No Respiratory Distress, Decreased Breath Sounds; No Wheezing; Other (speaks in full sentences) Cardiovascular: Regular Rate, Rhythm, Normal Peripheral Pulses Gastrointestinal: Normal Bowel Sounds, Soft, Tenderness Extremity: Normal Capillary Refill, Normal Inspection Neurologic/Psychiatric: Alert, Oriented x3 Skin: Normal Color, Warm/Dry Progress/Results/Core Measures Suspected Sepsis SIRS Temperature: Pulse: Respiratory Rate: Laboratory Tests 07/02/19 21:35: White Blood Count 9.5 Blood Pressure / Mean: Laboratory Tests 07/02/19 21:35: Creatinine 0.80, Platelet Count 238, Total Bilirubin 0.3 Results/Orders Lab Results Laboratory Tests Test 07/02/19 21:35 07/02/19 22:00 Range/Units White Blood Count 9.5 4.3-11.0 10^3/uL Red Blood Count 4.84 4.35-5.85 10^6/uL Hemoglobin 14.1 11.5-16.0 G/DL Hematocrit 43 35-52 % Mean Corpuscular Volume 88 80-99 FL Mean Corpuscular Hemoglobin 29 25-34 PG Mean Corpuscular Hemoglobin Concent 33 32-36 G/DL Red Cell Distribution Width 13.8 10.0-14.5 % Platelet Count 238 130-400 10^3/uL Mean Platelet Volume 8.2 7.4-10.4 FL Neutrophils (%) (Auto) 62 42-75 % Lymphocytes (%) (Auto) 28 12-44 % Monocytes (%) (Auto) 7 0-12 % Eosinophils (%) (Auto) 3 0-10 % Basophils (%) (Auto) 1 0-10 % Neutrophils # (Auto) 5.9 1.8-7.8 X 10^3 Lymphocytes # (Auto) 2.6 1.0-4.0 X 10^3 Monocytes # (Auto) 0.7 0.0-1.0 X 10^3 Eosinophils # (Auto) 0.3 0.0-0.3 10^3/uL Basophils # (Auto) 0.1 0.0-0.1 10^3/uL Sodium Level 141 135-145 MMOL/L Potassium Level 3.8 3.6-5.0 MMOL/L Chloride Level 97 L 98-107 MMOL/L Carbon Dioxide Level 33 H 21-32 MMOL/L Anion Gap 11 5-14 MMOL/L Blood Urea Nitrogen 8 7-18 MG/DL Creatinine 0.80 0.60-1.30 MG/DL Estimat Glomerular Filtration Rate > 60 BUN/Creatinine Ratio 10 Glucose Level 84 70-105 MG/DL Calcium Level 9.7 8.5-10.1 MG/DL Corrected Calcium 9.4 8.5-10.1 MG/DL Total Bilirubin 0.3 0.1-1.0 MG/DL Aspartate Amino Transf (AST/SGOT) 13 5-34 U/L Alanine Aminotransferase (ALT/SGPT) 20 0-55 U/L Alkaline Phosphatase 86 40-136 U/L Total Protein 8.0 6.4-8.2 GM/DL Albumin 4.4 3.2-4.5 GM/DL Lipase 22 8-78 U/L Urine Color YELLOW Urine Clarity CLEAR Urine pH 6 5-9 Urine Specific [place] 1.010 L 1.016-1.022 Urine Protein NEGATIVE NEGATIVE Urine Glucose (UA) NEGATIVE NEGATIVE Urine Ketones NEGATIVE NEGATIVE Urine Nitrite NEGATIVE NEGATIVE Urine Bilirubin NEGATIVE NEGATIVE Urine Urobilinogen NORMAL NORMAL MG/DL Urine Leukocyte Esterase 1+ H NEGATIVE Urine RBC (Auto) 1+ H NEGATIVE Urine RBC 0-2 /HPF Urine WBC 2-5 /HPF Urine Crystals NONE /LPF Urine Bacteria TRACE /HPF Urine Casts NONE /LPF Urine Mucus NEGATIVE /LPF Urine Culture Indicated NO My Orders Orders - EREN MCDONALD APRN Chest Pa/Lat (2 View) (07/02/19 21:34) Abdomen/Kub 1view (07/02/19 21:34) Cbc With Automated Diff (07/02/19 21:34) Lipase (07/02/19 21:34) Comprehensive Metabolic Panel (07/02/19 21:34) Ed Iv/Invasive Line Start (07/02/19 21:34) Ua Culture If Indicated (07/02/19 21:34) Albuterol/Ipra Inhalation Soln (Duoneb I (07/02/19 22:00) Svn Small Volume Nebulizer (07/02/19 21:59) Medications Given in ED Current Medications Medications Dose Ordered Sig/Tino Route Start Time Stop Time Status Last Admin Dose Admin Albuterol/ Ipratropium 3 ml ONCE ONCE INH 07/02/19 22:00 07/02/19 22:01 DC 07/02/19 22:09 3 ML Vital Signs/I&O 07/02/19 07/02/19 21:28 22:09 Temp 35.4 Pulse 95 Resp 20 B/P (MAP) 160/103 (122) Pulse Ox 94 95 O2 Delivery Nasal Cannula Nasal Cannula O2 Flow Rate 3.00 3.00 Capillary Refill : Departure Impression Primary Impression: COPD exacerbation Additional Impression: Constipation Qualified Codes: K59.00 - Constipation, unspecified Disposition: HOME, SELF-CARE Condition: Stable Departure-Patient Inst. Decision time for Depature: 22:31 Referrals: KAITLIN TURNER MD (PCP/Family) Primary Care Physician Patient Instructions: Constipation in Adults, Exacerbation of COPD Add. Discharge Instructions: 1. Steroids as directed 2. One Full of MiraLAX and a glass of water 3 times daily for 3 days. Scripts Doxycycline Hyclate (Doxycycline Hyclate) 100 Mg Tablet 100 MG PO BID, #14 TAB 0 Refills Prov: EREN MCDONALD APRN 07/02/19 Prednisone (Prednisone) 20 Mg Tab 40 MG PO DAILY, #6 TAB 0 Refills Prov: EREN MCDONALD APRN 07/02/19 EREN MCDONALD APRN Jul 02, 2019 21:37
[2019-07-02 21:47] LABS: BASOPHILS # (AUTO) 0.1 10^3/uL (0.0-0.1); BASOPHILS % (AUTO) 1 % (0-10); EOSINOPHILS # (AUTO) 0.3 10^3/uL (0.0-0.3); EOSINOPHILS % (AUTO) 3 % (0-10); HEMATOCRIT 43 % (35-52); HEMOGLOBIN 14.1 G/DL (11.5-16.0); LYMPHOCYTES # (AUTO) 2.6 X 10^3 (1.0-4.0); LYMPHOCYTES % (AUTO) 28 % (12-44); MEAN CORPUSCULAR HEMOGLOBIN 29 PG (25-34); MEAN CORPUSCULAR HGB CONC 33 G/DL (32-36); MEAN CORPUSCULAR VOLUME 88 FL (80-99); MEAN PLATELET VOLUME 8.2 FL (7.4-10.4); MONOCYTES # (AUTO) 0.7 X 10^3 (0.0-1.0); MONOCYTES % (AUTO) 7 % (0-12); NEUTROPHILS # (AUTO) 5.9 X 10^3 (1.8-7.8); NEUTROPHILS % (AUTO) 62 % (42-75); PLATELET COUNT 238 10^3/uL (130-400); RED CELL DISTRIBUTION WIDTH 13.8 % (10.0-14.5); WHITE BLOOD COUNT 9.5 10^3/uL (4.3-11.0)
[2019-07-02] MEDS ORDERED: RT-ALBUTEROL/IPRATROPIUM 3 ML (DUONEB) VIAL INH ONE (22:00)
[2019-07-02 22:03] LABS: ALANINE AMINOTRANSFERASE 20 U/L (0-55); ALBUMIN 4.4 GM/DL (3.2-4.5); ALKALINE PHOSPHATASE 86 U/L (40-136); BILIRUBIN,TOTAL 0.3 MG/DL (0.1-1.0); BUN/CREATININE RATIO 10; CALCIUM 9.7 MG/DL (8.5-10.1); CARBON DIOXIDE 33 MMOL/L (21-32); CHLORIDE 97 MMOL/L (98-107); GFR ESTIMATED > 60; GLUCOSE 84 MG/DL (70-105); LIPASE 22 U/L (8-78); POTASSIUM 3.8 MMOL/L (3.6-5.0); SODIUM 141 MMOL/L (135-145)
[2019-07-02 22:08] LABS: BILIRUBIN,URINE NEGATIVE (NEGATIVE); CLARITY,URINE CLEAR; COLOR,URINE YELLOW; GLUCOSE, URINE (UA) NEGATIVE (NEGATIVE); KETONES,URINE NEGATIVE (NEGATIVE); LEUKOCYTE ESTERASE ,URINE 1+ (NEGATIVE); NITRITE,URINE NEGATIVE (NEGATIVE); PH,URINE 6 (5-9); PROTEIN,URINE NEGATIVE (NEGATIVE); UROBILINOGEN,URINE NORMAL (NORMAL)
[2019-07-02 22:18] LABS: BACTERIA,URINE TRACE /HPF; RBC,URINE 0-2 /HPF
[2019-07-02] MEDS ORDERED: DOXY100T2 PO (22:32)
[2019-07-02] MEDS ORDERED: PRD20T PO (22:32)
[2019-07-02] MEDS ORDERED: predniSONE 20 MG TAB PO ONE (22:45)
[2019-07-02] MEDS ORDERED: DOXYCYCLINE 100 MG (VIBRAMYCIN) TABLET PO SCH (22:45)
[2019-07-02 22:46] VITALS: BP 127/91
--- NOTE | 2019-07-03 06:00 | Diagnostic Imaging Report ---
INDICATION: Shortness of breath, hypoxia and cough. The exam compared 05/07/2019. No failure or infiltrate. No effusion or pneumothorax. There is some flattening to the diaphragms and expansion of the retrosternal airspace consistent with an element of air trapping. No free air beneath the diaphragms. No appreciable chest fracture deformity identified. IMPRESSION: Symmetrical air trapping, otherwise negative. Dictated by: Dictated on workstation # [id number]
--- NOTE | 2019-07-03 06:03 | Diagnostic Imaging Report ---
INDICATION: Pain, cough FINDINGS: There is an elevated colonic fecal load throughout the large bowel consistent with generalized colonic constipation. No bowel distention or focal impaction apparent. No small bowel dilatation or obstructive features. IMPRESSION: Colonic constipation without blayne obstruction or focal impaction radiographically apparent. Dictated by: Dictated on workstation # [id number]
== END 2019-07-02 22:46 | disposition home or self-care (01) ==
LOC: EDUNIT# 21:26 → ER 21:27
DX: J44.1 Chronic obstructive pulmonary disease with (acute) exacerbation (principal); K59.00 Constipation, unspecified; J45.909 Unspecified asthma, uncomplicated; I10 Essential (primary) hypertension; E78.00 Pure hypercholesterolemia, unspecified; G40.909 Epilepsy, unspecified, not intractable, without status epilepticus; I48.91 Unspecified atrial fibrillation; F41.9 Anxiety disorder, unspecified; F32.9 Major depressive disorder, single episode, unspecified; K21.9 Gastro-esophageal reflux disease without esophagitis; K58.9 Irritable bowel syndrome, unspecified; Z98.51 Tubal ligation status; Z86.718 Personal history of other venous thrombosis and embolism; Z86.711 Personal history of pulmonary embolism; Z88.8 Allergy status to other drugs, medicaments and biological substances; Z79.82 Long term (current) use of aspirin; Z79.51 Long term (current) use of inhaled steroids; Z79.52 Long term (current) use of systemic steroids; Z77.22 Contact with and (suspected) exposure to environmental tobacco smoke (acute) (chronic); Z90.49 Acquired absence of other specified parts of digestive tract; Z90.710 Acquired absence of both cervix and uterus; Z82.49 Family history of ischemic heart disease and other diseases of the circulatory system; Z80.0 Family history of malignant neoplasm of digestive organs; Z80.1 Family history of malignant neoplasm of trachea, bronchus and lung
CPT/HCPCS: 36415; 71046; 74018; 80053; 81000; 83690; 85025; 94640

== ENCOUNTER → 2019-10-23 | Outpatient (CLI) | payer MEDICAID ==
[~2019-10-23] MED LIST changes: +OMEP40CA27 PO; -OMEP40CA36 PO; +POLY15DR27 OU; -[UNRECOGNIZED DRUG - CODE] OU
[2019-10-23 09:28] LABS: ALANINE AMINOTRANSFERASE 11 U/L (0-55); ALKALINE PHOSPHATASE 59 U/L (40-136); BILIRUBIN,TOTAL 0.2 MG/DL (0.1-1.0); BUN/CREATININE RATIO 10; CALCIUM 9.2 MG/DL (8.5-10.1); CARBON DIOXIDE 30 MMOL/L (21-32); CHLORIDE 103 MMOL/L (98-107); CHOLESTEROL 280 MG/DL (< 200); CREATININE SERUM 0.83 MG/DL (0.60-1.30); GFR ESTIMATED > 60; GLUCOSE 122 MG/DL (70-105); HDL CHOLESTEROL 35 MG/DL (40-60); POTASSIUM 4.3 MMOL/L (3.6-5.0); SODIUM 141 MMOL/L (135-145); TOTAL PROTEIN 7.1 GM/DL (6.4-8.2); TRIGLYCERIDES 245 MG/DL (<150); VLDL CHOLESTEROL 49 MG/DL (5-40)
== END ==
LOC: LAB 08:48
PROVIDERS: ATTEND Internal Medicine Cardiovascular Disease
DX: I11.0 Hypertensive heart disease with heart failure (principal); I50.32 Chronic diastolic (congestive) heart failure; I26.99 Other pulmonary embolism without acute cor pulmonale; Z72.0 Tobacco use
CPT/HCPCS: 36415; 80053; 80061

== ENCOUNTER → 2019-10-30 | Outpatient (CLI) | payer MEDICAID ==
--- NOTE | 2019-10-21 15:19 | NUR ---
RECEIVED ORDER FOR PT TO GO THROUGH PULMONARY REHAB; LOOKED UP FILE TO GET CONTACTING INFORMATION TO SET UP EVALUATION AND TO SEE IF CURRENT PFT IN RECORDS (FOR EVAL)
--- NOTE | 2019-11-03 12:25 | NUR ---
PT SCHEDULED FOR PULMONARY REHAB EVALUATION; LOOKED UP PT'S FILE TO SEE IF CURRENT PFT IN RECORDS (FOR EVAL) AND TO GET MAILING ADDRESS TO SEND PAPERWORK
== END ==
LOC: CARD 10:48
PROVIDERS: ATTEND Internal Medicine Cardiovascular Disease
DX: I26.99 Other pulmonary embolism without acute cor pulmonale (principal); I11.0 Hypertensive heart disease with heart failure; I50.32 Chronic diastolic (congestive) heart failure; Z72.0 Tobacco use
CPT/HCPCS: 93306

== ENCOUNTER 2020-04-14 04:53 | Emergency (ER) | payer MEDICAID ==
[~2020-04-14] VITALS: Ht 172 cm; Wt 96.4 kg
[~2020-04-14 04:53] MED LIST changes: -GUAI400T71 PO; +GUAI400T86 PO
[2020-04-14] MEDS ORDERED: RT-ALBUTEROL/IPRATROPIUM 3 ML (DUONEB) VIAL ONE (04:57)
[2020-04-14] MEDS ORDERED: RT-ALBUTEROL/IPRATROPIUM 3 ML (DUONEB) VIAL INH ONE (05:00)
[2020-04-14] MEDS ORDERED: amLODIPine 5 MG (NORVASC) TAB PO ONE (05:00)
[2020-04-14] MEDS ORDERED: LORazepam INJ 2 MG/ML (ATIVAN) VIAL IVP ONE (05:00)
[2020-04-14] MEDS ORDERED: methylPREDNISolone 125 MG (Solu-MEDROL) VIAL IV STA (05:00)
[2020-04-14] MEDS ORDERED: NS IV 1000 ML 1,000 ML IV SCH (05:00)
[2020-04-14] MEDS ORDERED: ONDANSETRON 4 MG/2 ML (SDV) Z0FRAN IVP ONE (05:00)
[2020-04-14] MEDS ORDERED: cloNIDine 0.1 MG (CATAPRES) TAB PO ONE (05:00)
[2020-04-14] MEDS ORDERED: ONDANSETRON 4 MG/2 ML (SDV) Z0FRAN ONE (05:01)
[2020-04-14] MEDS ORDERED: amLODIPine 5 MG (NORVASC) TAB ONE (05:02)
[2020-04-14] MEDS ORDERED: LORazepam INJ 2 MG/ML (ATIVAN) VIAL ONE (05:02)
[2020-04-14] MEDS ORDERED: cloNIDine 0.1 MG (CATAPRES) TAB ONE (05:02)
[2020-04-14] MEDS ORDERED: ASPIRIN 81 MG CHEW (CHILDREN'S ASA) ONE (05:03)
[2020-04-14 05:09] LABS: BASOPHILS # (AUTO) 0.1 10^3/uL (0.0-0.1); BASOPHILS % (AUTO) 1 % (0-10); EOSINOPHILS # (AUTO) 0.2 10^3/uL (0.0-0.3); EOSINOPHILS % (AUTO) 2 % (0-10); HEMATOCRIT 43 % (35-52); HEMOGLOBIN 14.6 G/DL (11.5-16.0); LYMPHOCYTES # (AUTO) 2.9 X 10^3 (1.0-4.0); LYMPHOCYTES % (AUTO) 27 % (12-44); MEAN CORPUSCULAR HEMOGLOBIN 29 PG (25-34); MEAN CORPUSCULAR HGB CONC 34 G/DL (32-36); MEAN CORPUSCULAR VOLUME 87 FL (80-99); MEAN PLATELET VOLUME 8.4 FL (7.4-10.4); MONOCYTES # (AUTO) 0.8 X 10^3 (0.0-1.0); MONOCYTES % (AUTO) 8 % (0-12); NEUTROPHILS # (AUTO) 6.7 X 10^3 (1.8-7.8); NEUTROPHILS % (AUTO) 63 % (42-75); PLATELET COUNT 272 10^3/uL (130-400); RED CELL DISTRIBUTION WIDTH 13.8 % (10.0-14.5); WHITE BLOOD COUNT 10.7 10^3/uL (4.3-11.0)
--- NOTE | 2020-04-14 05:11 | ED Respiratory ---
General Chief Complaint: Respiratory Problems Stated Complaint: SOA Source: patient, EMS Exam Limitations: no limitations (SHAI ALVAREZ) History of Present Illness Date Seen by Provider: Apr 14, 2020 Time Seen by Provider: 04:55 Initial Comments Patient presents to ER from home by EMS with chief complaint of waking up this morning with some increasingly severe shortness of breath. The past day or 2 she's had to use her oxygen sometimes throughout the day. Typically she uses 3 L by nasal cannula at night to sleep only. She does not use CPAP or BiPAP. She still smokes about a pack of cigarettes per day but denies recreational drug use. She has a history of COPD and followed by Dr. Moore, Pulmonology and Dr. Kaitlin Turner for primary care. She has not been on steroids recently. She's not having any fevers chills or productive cough. No recent hospitalizations in the last 3 months. She did use her inhaler and get some marginal benefit prior to EMSs arrival. Her blood pressure is elevated this morning according to EMS but she has not taken any of her a.m. medications yet. She is on clonidine, beta prema, ALAN inhibitor. She takes aspirin but denies chest pain. She says she's having some shoulder pain and neck pain that she says sometimes she gets whenever her heart goes into fluid retention. She has a appointment for a lung scan coming up in the next couple weeks for surveillance of nodules in the lung. She has chronic, frequent nausea for which she takes Zofran. She has not had any today but she is having nausea. No vomiting. History of pleural effusion status post thoracentesis 2017 and 18. History of pericardial effusion with pericardial window 2017 in her mid 70s. History of paroxysmal atrial fibrillation with [id number] score of 2 and a history of DVT but managed on aspirin without anticoagulants. Hypertension and COPD. History of anxiety controlled with medications. She would like something for her anxiety presently. (SHAI ALVAREZ) Allergies and Home Medications Allergies Coded Allergies: buspirone HCl (Verified Allergy, Unknown, 10/11/18) etodolac (Verified Allergy, Unknown, 10/11/18) NSAIDS (Non-Steroidal Anti-Inflamma (Verified Adverse Reaction, Unknown, 10/11/18) Neuromuscular Blockers, Steroidal (Verified Adverse Reaction, Unknown, 10/11/18) gabapentin (Verified Adverse Reaction, Unknown, 10/11/18) Home Medications Albuterol Sulfate 1 Puff Puff, 2 PUFF INH QID PRN for SHORTNESS OF BREATH, (Reported) Albuterol Sulfate 2.5 Mg/3 Ml Vial.neb, 2.5 MG NEB Q4H PRN for SHORTNESS OF BREATH, (Reported) Alprazolam 0.5 Mg Tablet, 0.5 MG PO TID PRN for ANXIETY, (Reported) Amlodipine Besylate 10 Mg Tablet, 10 MG PO DAILY, (Reported) Artificial Tears 15 Ml Soln, 1 DROP OU Q4H PRN for DRY EYES, (Reported) Aspirin 325 Mg Tablet.dr, 325 MG PO DAILY, (Reported) Atenolol 50 Mg Tablet, 50 MG PO HS, (Reported) Azithromycin 250 Mg Tablet, 250 MG PO UD TAKE 2 TABLETS ON DAY ONE THEN TAKE 1 TABLET DAILY FOR FOUR MORE DAYS Prescribed by: OZIEL MONREAL on 10/09/18 1605 Cefuroxime Axetil 250 Mg Tablet, 250 MG PO BID Prescribed by: EREN MCDONALD on 05/07/19 1449 Cetirizine HCl 10 Mg Tablet, 10 MG PO DAILY, (Reported) Cholecalciferol (Vitamin D3) 5,000 Unit Tablet, 5,000 UNIT PO DAILY, (Reported) Clonidine HCl 0.1 Mg Tablet, 0.1 MG PO TID, (Reported) Dicyclomine HCl 20 Mg Tablet, 20 MG PO QID PRN for STOMACH UPSET, (Reported) Docusate Sodium 100 Mg Capsule, 100 MG PO BID PRN for CONSTIPATION-1ST LINE, (Reported) Doxycycline Hyclate 100 Mg Tablet, 100 MG PO BID Prescribed by: EREN MCDONALD on 07/02/19 2232 Enalapril Maleate 20 Mg Tablet, 10 MG PO BID, (Reported) take 1/2 of 20mg tab Fluticasone Propionate 16 Gm [place].susp, 1 SPRAY NSEACH BID, (Reported) Fluticasone/Salmeterol 1 Each Blst.w.dev, 1 PUFF IH BID, (Reported) Lactobacillus Acidophilus 1 Each Capsule, 1 CAP PO DAILY, (Reported) [place] 3 Polyunsat Fatty Acids 1,000 Mg Cap, 2,000 MG PO DAILY, (Reported) take 2 (1000mg) tabs Omeprazole 40 Mg Capsule.dr, 40 MG PO DAILY, (Reported) Ondansetron 4 Mg Tab.rapdis, 4 MG PO Q6H PRN for NAUSEA/VOMITING Prescribed by: OZIEL MONREAL on 10/09/18 1605 Prednisone 20 Mg Tab, 40 MG PO DAILY Prescribed by: EREN MCDONALD on 05/07/19 1449 Prednisone 20 Mg Tab, 40 MG PO DAILY Prescribed by: EREN MCDONALD on 07/02/19 2232 Ranitidine HCl 150 Mg Tablet, 150 MG PO BID, (Reported) Simethicone 125 Mg Tab.chew, 2 TAB PO BID PRN for GAS, (Reported) Patient Home Medication List Home Medication List Reviewed: Yes (SHAI ALVAREZ) Review of Systems Review of Systems Constitutional: No chills; diaphoresis; No fever, No malaise, No weakness EENTM: No ear discharge, No ear pain, No eye pain Respiratory: No cough; orthopnea, short of breath, wheezing Cardiovascular: No chest pain, No edema, No Hx of Intervention, No palpitations Gastrointestinal: No abdominal pain; nausea; No vomiting Musculoskeletal: No back pain, No joint pain Skin: No pruritus, No rash Psychiatric/Neurological: Anxiety; Denies Depressed (HSAI ALVAREZ) All Other Systems Reviewed Negative Unless Noted: Yes (SHAI ALVAREZ) Past Xlhhqpm-Xeyewt-Phyiso Hx Patient Social History Alcohol Use: Denies Use Recreational Drug Use: No Smoking Status: Current Everyday Smoker Type Used: Cigarettes (1 ppd) 2nd Hand Smoke Exposure: Yes Recent Hopitalizations: No (SHAI ALVAREZ) Immunizations Up To Date Tetanus Booster (TDap): Unknown Date of Pneumonia Vaccine: Aug 07, 2018 Date of Influenza Vaccine: Nov 08, 2017 (SHAI ALVAREZ) Seasonal Allergies Seasonal Allergies: Yes (SHAI ALVAREZ) Past Medical History Surgeries: Yes (pericardial window, c/s x2lung thoracensis) Abdominal, Appendectomy, Cardiac, Section, Gallbladder, Hysterectomy, Oophorectomy Respiratory: Yes Asthma, Pneumonia, Pulmonary Embolism, Sleep Apnea, COPD, Emphysema Currently Using CPAP: No Currently Using BIPAP: No Cardiac: Yes (Pericardial effusion-S/P PERICARDIAL WINDOW 08/2017) Atrial Fibrillation, Chronic Edema/Swelling, Deep Vein Thrombosis, High Cholesterol, Hypertension Neurological: Yes (PSEUDO SEIZURES ) Seizure Disorder 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 Disorders: Yes Female 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 Disorders: 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 History: Hysterectomy, 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, Menopausal Genitourinary: No Gastrointestinal: Yes (CHOKES EASILY) Abdominal Hernia, Gastroesophageal Reflux, Diverticulosis, Hiatal Hernia, Ulcer, Irritable Bowel Musculoskeletal: Yes (CHRONIC KNEE AND HIP PAIN, SPINAL STENOSIS) Degenerate Disk Disease, Osteoporosis, Arthritis, Chronic Back Pain Endocrine: No HEENT: No Cancer: No Psychosocial: Yes Pseudo Seizures, Anxiety, Depression Integumentary: Yes Eczema Blood Disorders: No Adverse Reaction/Blood Tranf: No (SHAI ALVAREZ) Family Medical History FH: cirrhosis 19 MOTHER FH: liver cancer 19 MOTHER FHx: lung cancer 19 FATHER Hypertension 19 FATHER 19 MOTHER Physical Exam Vital Signs - First Documented 04/14/20 04:56 Temp 36.7 Pulse 63 Resp 22 B/P (MAP) 174/101 (125) Pulse Ox 97 O2 Delivery Nasal Cannula O2 Flow Rate 5.00 (OZIEL MONREAL MD) Capillary Refill : (SHAI ALVAREZ) Height: 5'8.00" Weight: 201lbs. 0.8oz. 91.370906oh; 30.00 BMI Method:Stated General Appearance: moderate distress Eyes: Bilateral Eye Normal Inspection, Bilateral Eye PERRL, Bilateral Eye EOMI HEENT: PERRL/EOMI, normal ENT inspection, pharynx normal Neck: full range of motion, supple, normal inspection Respiratory: no accessory muscle use, respiratory distress ([id number]-mt-[id number] with tripoding and mild work of breathing and occasional pursed lip breathing.), decreased breath sounds, wheezing (mild, bilateral) Cardiovascular: normal peripheral pulses, regular rate, rhythm Gastrointestinal: non tender, soft Neurologic/Psychiatric: alert, normal mood/affect, oriented x 3 Skin: normal color, warm/dry (SHAI ALVAREZ) Progress/Results/Core Measures Suspected Sepsis SIRS Temperature: Pulse: Respiratory Rate: Laboratory Tests 04/14/20 04:58: White Blood Count 10.7 Blood Pressure / Mean: Laboratory Tests 04/14/20 04:58: Creatinine 0.87, Platelet Count 272, Total Bilirubin 0.4 (SHAI ALVAREZ) Results/Orders Lab Results Laboratory Tests Test 04/14/20 04:58 04/14/20 05:08 04/14/20 07:35 Range/Units White Blood Count 10.7 4.3-11.0 10^3/uL Red Blood Count 4.96 4.35-5.85 10^6/uL Hemoglobin 14.6 11.5-16.0 G/DL Hematocrit 43 35-52 % Mean Corpuscular Volume 87 80-99 FL Mean Corpuscular Hemoglobin 29 25-34 PG Mean Corpuscular Hemoglobin Concent 34 32-36 G/DL Red Cell Distribution Width 13.8 10.0-14.5 % Platelet Count 272 130-400 10^3/uL Mean Platelet Volume 8.4 7.4-10.4 FL Neutrophils (%) (Auto) 63 42-75 % Lymphocytes (%) (Auto) 27 12-44 % Monocytes (%) (Auto) 8 0-12 % Eosinophils (%) (Auto) 2 0-10 % Basophils (%) (Auto) 1 0-10 % Neutrophils # (Auto) 6.7 1.8-7.8 X 10^3 Lymphocytes # (Auto) 2.9 1.0-4.0 X 10^3 Monocytes # (Auto) 0.8 0.0-1.0 X 10^3 Eosinophils # (Auto) 0.2 0.0-0.3 10^3/uL Basophils # (Auto) 0.1 0.0-0.1 10^3/uL Erythrocyte Sedimentation Rate 18 0-30 MM/HR Sodium Level 140 135-145 MMOL/L Potassium Level 3.7 3.6-5.0 MMOL/L Chloride Level 101 98-107 MMOL/L Carbon Dioxide Level 27 21-32 MMOL/L Anion Gap 12 5-14 MMOL/L Blood Urea Nitrogen 9 7-18 MG/DL Creatinine 0.87 0.60-1.30 MG/DL Estimat Glomerular Filtration Rate > 60 BUN/Creatinine Ratio 10 Glucose Level 126 H 70-105 MG/DL Calcium Level 9.4 8.5-10.1 MG/DL Corrected Calcium 9.2 8.5-10.1 MG/DL Total Bilirubin 0.4 0.1-1.0 MG/DL Aspartate Amino Transf (AST/SGOT) 15 5-34 U/L Alanine Aminotransferase (ALT/SGPT) 17 0-55 U/L Alkaline Phosphatase 71 40-136 U/L Troponin I < 0.028 <0.028 NG/ML C-Reactive Protein High Sensitivity 1.49 H 0.00-0.50 MG/DL B-Type Natriuretic Peptide 150.7 H <100.0 PG/ML Total Protein 7.6 6.4-8.2 GM/DL Albumin 4.2 3.2-4.5 GM/DL Procalcitonin 0.01 <0.10 NG/ML Blood Gas Puncture Site R BRACH Blood Gas Patient Temperature 36.7 Arterial Blood pH 7.40 7.37-7.43 Arterial Blood Partial Pressure CO2 52 H 35-45 MMHG Arterial Blood Partial Pressure O2 132 H 79-93 MMHG Arterial Blood HCO3 31 H 23-27 MMOL/L Arterial Blood Total CO2 32.8 H 21.0-31.0 MMOL/L Arterial Blood Oxygen Saturation 99 94-100 % Arterial Blood Base Excess 6.4 H -2.5-2.5 MMOL/L Ac Test YES-POS Blood Gas Ventilator Setting NO Blood Gas Inspired Oxygen 5L (OZIEL MONREAL MD) Medications Given in ED Current Medications Medications Dose Ordered Sig/Tino Route Start Time Stop Time Status Last Admin Dose Admin Albuterol/ Ipratropium 3 ml ONCE ONCE INH 04/14/20 05:00 04/14/20 05:06 DC 04/14/20 05:00 3 ML Amlodipine Besylate 5 mg ONCE ONCE PO 04/14/20 05:00 04/14/20 05:06 NJ 04/14/20 05:12 5 MG Aspirin 324 mg ONCE ONCE PO 04/14/20 05:15 04/14/20 05:16 NJ 04/14/20 05:10 324 MG Clonidine HCl 0.1 mg ONCE ONCE PO 04/14/20 05:00 04/14/20 05:06 NJ 04/14/20 05:13 0.1 MG Lorazepam 0.5 mg ONCE ONCE IVP 04/14/20 05:00 04/14/20 05:06 NJ 04/14/20 05:13 0.5 MG Ondansetron HCl 4 mg ONCE ONCE IVP 04/14/20 05:00 04/14/20 05:06 NJ 04/14/20 05:11 4 MG (OZIEL MONREAL MD) Vital Signs/I&O 04/14/20 04/14/20 04:56 05:05 Temp 36.7 Pulse 63 Resp 22 B/P (MAP) 174/101 (125) Pulse Ox 97 97 O2 Delivery Nasal Cannula Nasal Cannula O2 Flow Rate 5.00 5.00 (OZIEL MONREAL MD) Vital Signs/I&O Capillary Refill : (SHAI ALVAREZ) Progress Note #1: Time: 05:14 Progress Note Aseptic vital signs with xohl-yz-[id number] increased work of breathing on history and clinical exam. Plan to give her a DuoNeb given ABG and some basic labs for markers of inflammation. A liter of fluids, Solu-Medrol, aspirin for her shoulder pain in case it is atypical angina. Although she does not have a history of coronary disease she does have several risk factors, tobaccoism, hypertension. Patient has a negative initial troponin then heart pathway score of 3 points; Low risk. 0.9-1.7% 30-day MACE. Repeat troponin at 3 hours and if negative, discharge home with outpatient follow-up. Progress Note #2: Time: 05:25 Progress Note Patient's demonstrates a saturation of oxygen with a PaO2 of 130. We have reduced her supplemental oxygen to 3 L/m by nasal cannula which is at her baseline. After a DuoNeb she says she maybe feels a little better but not much. We have given her half a milligram Ativan for her anxiety. I suspect more that this is related to anxiety more than COPD exacerbation but it would be reasonable still to cover her for a couple days on prednisone. No productive cough, fever or white count. Markers of inflammation pending. Plan to repeat a troponin [address], shoulder pain and shortness of air if the first 1 is negative. This would be at 7:30. (SHAI ALVAREZ) Progress Note : Progress Note 0630: Assumed care of the patient at 0600 pending troponin. Patient has had initial workup for COPD exacerbation and chest pain workup. Initial workup negative for chest pain and COPD is responding to typical therapy. States that her COPD is likely exacerbated today due to being outside in the heat yesterday which she has not been doing otherwise. No new complaints. Discussed with patient regarding timing of draw. 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 0730: Repeat troponin drawn. No new complaints. 0813: Repeat troponin negative. Discharged home with return precautions. Patient verbalize understanding instructions and agreement with plan. (OZIEL MONREAL MD) ECG Initial ECG Impression Date: Apr 14, 2020 Initial ECG Impression Time: 05:02 Initial ECG Rate: 63 Initial ECG Rhythm: Normal Sinus Initial ECG Intervals: Normal Initial ECG Impression: Nonspecific Changes Initial ECG Comparisson: Unchanged Comment Normal sinus rhythm without clinically relevant ST elevation or depression. Incomplete right bundle-branch block. (SHAI ALVAREZ) Diagnostic Imaging Diagonstic Imaging: Xray Plain Films/CT/US/NM/MRI: chest (1v) Comments NAME: MAHNAZ VANCE [facility] REC#: [id number] PT STATUS: REG ER : 1965 PHYSICIAN: SHAI ALVAREZ MD ADMIT DATE: 04/14/20/ER Draft Date of Exam:04/14/20 CHEST 1 VIEW, AP/PA ONLY Clinical indication: Patient with shortness of air with COPD. Exam: Portable chest x-ray upright view. Comparisons: Chest x-ray dated 07/02/2019. Findings: Lungs/pleura: Hyperinflated lungs are again seen which may be related to patient's history of COPD. Stable mild bilateral apical pleural parenchymal thickening/scarring. Lungs are clear. There is no pneumothorax. There is no pleural effusion. Mediastinum: Unremarkable. Pulmonary vasculature: Unremarkable. Heart: Unremarkable. Bones/extrathoracic soft tissue: Unremarkable. Impression: Stable chest x-ray exam with no interval radiographic evidence of acute cardiopulmonary process. Dictated on workstation # [id number] Dict: 04/14/20 0543 Trans: 04/14/20 0546 ADRIANA [id number] Interpreted by: NANCY ANN MD Electronically signed by: Reviewed: Reviewed by Me (SHAI ALVAREZ) Departure Impression Primary Impression: COPD exacerbation Additional Impression: Chest pain Qualified Codes: R07.9 - Chest pain, unspecified Disposition: 01 HOME, SELF-CARE Condition: Stable Departure-Patient Inst. Referrals: KAITLIN TURNER MD (PCP/Family) Primary Care Physician Patient Instructions: Chest Pain (DC), Exacerbation of COPD (DC) Add. Discharge Instructions: All discharge instructions reviewed with patient and/or family. Voiced understanding. Continue home medications as previously prescribed. Take other medications as directed. He should follow-up with Dr. Turner within the next few days for recheck and further evaluation. Call her office for appointment. Follow-up with Dr. Campbell for recheck and further evaluation. Call his office for appointment. Return for worse pain, fever, vomiting, weakness, breathing problems or other concerns as needed. Scripts Prednisone (Prednisone) 20 Mg Tab 20 MG PO DAILY, #5 TAB 0 Refills Prov: OZIEL MONREAL MD 04/14/20 Copy Copies To 1: KAITLIN TURNER MD Copies To 2: HEBERT CAMPBELL MD, TITUS J Apr 14, 2020 05:11 OZIEL MONREAL MD Apr 14, 2020 08:15
[2020-04-14] MEDS ORDERED: ASPIRIN 81 MG CHEW (CHILDREN'S ASA) PO ONE (05:15)
[2020-04-14 05:17] LABS: ABG PCO2 52 MMHG (35-45); ABG PO2 132 MMHG (79-93)
[2020-04-14 05:18] LABS: ALBUMIN 4.2 GM/DL (3.2-4.5); CHLORIDE 101 MMOL/L (98-107); POTASSIUM 3.7 MMOL/L (3.6-5.0); SODIUM 140 MMOL/L (135-145)
[2020-04-14 05:18] LABS: ABG BASE EXCESS 6.4 MMOL/L (-2.5-2.5); ABG OXYGEN SATURATION 99 % (94-100); ABG TCO2 32.8 MMOL/L (21.0-31.0); ALLENS TEST YES-POS; INSPIRED O2 5L; PATIENT TEMP 36.7; VENTILATOR NO
[2020-04-14 05:20] LABS: CALCIUM 9.4 MG/DL (8.5-10.1)
[2020-04-14 05:21] LABS: GLUCOSE 126 MG/DL (70-105); TOTAL PROTEIN 7.6 GM/DL (6.4-8.2)
[2020-04-14 05:22] LABS: BILIRUBIN,TOTAL 0.4 MG/DL (0.1-1.0); CARBON DIOXIDE 27 MMOL/L (21-32)
[2020-04-14 05:24] LABS: ALKALINE PHOSPHATASE 71 U/L (40-136); CREATININE SERUM 0.87 MG/DL (0.60-1.30); GFR ESTIMATED > 60
[2020-04-14 05:25] LABS: BUN/CREATININE RATIO 10
[2020-04-14 05:27] LABS: ALANINE AMINOTRANSFERASE 17 U/L (0-55)
[2020-04-14 05:37] LABS: ERYTHROCYTE SEDIMENTATION RATE 18 MM/HR (0-30)
--- NOTE | 2020-04-14 05:47 | Diagnostic Imaging Report ---
Clinical indication: Patient with shortness of air with COPD. Exam: Portable chest x-ray upright view. Comparisons: Chest x-ray dated 07/02/2019. Findings: Lungs/pleura: Hyperinflated lungs are again seen which may be related to patient's history of COPD. Stable mild bilateral apical pleural parenchymal thickening/scarring. Lungs are clear. There is no pneumothorax. There is no pleural effusion. Mediastinum: Unremarkable. Pulmonary vasculature: Unremarkable. Heart: Unremarkable. Bones/extrathoracic soft tissue: Unremarkable. Impression: Stable chest x-ray exam with no interval radiographic evidence of acute cardiopulmonary process. Dictated by: Dictated on workstation # [id number]
--- NOTE | 2020-04-14 06:30 | NUR ---
PT resting in bed, stable. PT expresses no needs at this time.
--- NOTE | 2020-04-14 06:58 | NUR ---
Report to PEDRO Murphy at this time.
[2020-04-14] MEDS ORDERED: PRD20T PO (08:15)
[2020-04-14 08:26] VITALS: BP 134/84
== END 2020-04-14 08:26 | disposition home or self-care (01) ==
LOC: EDUNIT# 04:53 → ER 04:54
DX: J43.9 Emphysema, unspecified (principal); R07.9 Chest pain, unspecified; F17.210 Nicotine dependence, cigarettes, uncomplicated; I48.0 Paroxysmal atrial fibrillation; F41.9 Anxiety disorder, unspecified; I10 Essential (primary) hypertension; K21.9 Gastro-esophageal reflux disease without esophagitis; F32.9 Major depressive disorder, single episode, unspecified; K58.9 Irritable bowel syndrome, unspecified; Z80.1 Family history of malignant neoplasm of trachea, bronchus and lung; Z88.6 Allergy status to analgesic agent; Z88.8 Allergy status to other drugs, medicaments and biological substances; Z86.718 Personal history of other venous thrombosis and embolism; Z79.51 Long term (current) use of inhaled steroids; Z79.52 Long term (current) use of systemic steroids; Z80.0 Family history of malignant neoplasm of digestive organs; Z99.81 Dependence on supplemental oxygen; Z79.82 Long term (current) use of aspirin
CPT/HCPCS: 36415; 71045; 80053; 82805; 83880; 84145; 84484; 85025; 85652; 86141; 93005; 94640; 94760

== ENCOUNTER → 2020-05-31 | Outpatient (CLI) | payer MEDICAID ==
--- NOTE | 2020-05-31 14:10 | Diagnostic Imaging Report ---
CT Lung Screening INDICATION: Lung cancer screening, [id number] history of smoking, current smoker. TECHNIQUE: Noncontrast, low-dose CT imaging performed according to the lung cancer screening protocol. Auto Exposure Controls were utilize during the CT exam to meet ALARA standards for radiation dose reduction. COMPARISON: May 21, 2019, July 24, 2018, and January 19, 2018. FINDINGS: No significant adenopathy within the chest. Mild scattered vascular calcifications. No aneurysmal dilatation of the thoracic aorta. The heart is within normal limits in size. No pericardial effusion. No pleural effusion. No pneumothorax. Moderate background emphysematous changes are present, both centrilobular and paraseptal in nature. 0.6 x 0.4 cm solid pulmonary nodule associated with the right minor fissure is again identified and unchanged since December 2017, therefore, benign. The lungs are otherwise clear. No new pulmonary nodule. No significant hiatal hernia. Minimally visualized upper abdomen is unremarkable. Scattered osseous degenerative changes without acute osseous abnormality. IMPRESSION: No acute abnormality. Moderate background emphysematous changes without suspicious pulmonary nodule or opacity. LUNG-RADS CATEGORY: 2-S: Benign appearance or behavior. MODIFIER: S: Moderate background emphysematous changes. Follow-up: Continued annual low-dose CT of the chest in 12 months. Dictated by: Dictated on workstation # [id number]
== END ==
LOC: RAD 12:52
PROVIDERS: ATTEND Nurse Practitioner Family
DX: Z12.2 Encounter for screening for malignant neoplasm of respiratory organs (principal); F17.210 Nicotine dependence, cigarettes, uncomplicated; J43.9 Emphysema, unspecified

== ENCOUNTER → 2020-06-20 | Outpatient (CLI) | payer MEDICAID ==
[~2020-06-20] MED LIST changes: -ENAL20TA PO; +ENAL20TA16 PO
[2020-06-20 10:15] LABS: BASOPHILS # (AUTO) 0.1 10^3/uL (0.0-0.1); BASOPHILS % (AUTO) 1 % (0-10); EOSINOPHILS # (AUTO) 0.1 10^3/uL (0.0-0.3); EOSINOPHILS % (AUTO) 1 % (0-10); HEMATOCRIT 43 % (35-52); HEMOGLOBIN 14.3 g/dL (11.5-16.0); LYMPHOCYTES # (AUTO) 2.1 10^3/uL (1.0-4.0); LYMPHOCYTES % (AUTO) 21 % (12-44); MEAN CORPUSCULAR HEMOGLOBIN 29 pg (25-34); MEAN CORPUSCULAR HGB CONC 33 g/dL (32-36); MEAN CORPUSCULAR VOLUME 88 fL (80-99); MEAN PLATELET VOLUME 8.6 fL (9.0-12.2); MONOCYTES # (AUTO) 0.7 10^3/uL (0.0-1.0); MONOCYTES % (AUTO) 7 % (0-12); NEUTROPHILS # (AUTO) 6.8 10^3/uL (1.8-7.8); NEUTROPHILS % (AUTO) 70 % (42-75); PLATELET COUNT 257 10^3/uL (130-400); WHITE BLOOD COUNT 9.8 10^3/uL (4.3-11.0)
[2020-06-20 10:40] LABS: ALANINE AMINOTRANSFERASE 14 U/L (0-55); ALBUMIN 4.2 GM/DL (3.2-4.5); ALKALINE PHOSPHATASE 70 U/L (40-136); BILIRUBIN,TOTAL 0.2 MG/DL (0.1-1.0); BUN/CREATININE RATIO 10; CALCIUM 9.6 MG/DL (8.5-10.1); CARBON DIOXIDE 30 MMOL/L (21-32); CHLORIDE 98 MMOL/L (98-107); CHOLESTEROL 246 MG/DL (< 200); CREATININE SERUM 0.84 MG/DL (0.60-1.30); GFR ESTIMATED > 60; GLUCOSE 114 MG/DL (70-105); HDL CHOLESTEROL 42 MG/DL (40-60); POTASSIUM 4.5 MMOL/L (3.6-5.0); SODIUM 137 MMOL/L (135-145); TOTAL PROTEIN 7.6 GM/DL (6.4-8.2); TRIGLYCERIDES 320 MG/DL (<150); VLDL CHOLESTEROL 64 MG/DL (5-40)
[2020-06-20 11:00] LABS: FREE T4 (FREE THYROXINE) 0.84 NG/DL (0.70-1.48)
== END ==
LOC: LAB 09:37
PROVIDERS: ATTEND Pediatrics
DX: I10 Essential (primary) hypertension (principal); J44.9 Chronic obstructive pulmonary disease, unspecified; E78.5 Hyperlipidemia, unspecified
CPT/HCPCS: 36415; 80053; 80061; 84439; 84443; 85025

== ENCOUNTER → 2020-06-20 | Outpatient (CLI) | payer MEDICAID ==
[2020-06-20 10:37] LABS: ALANINE AMINOTRANSFERASE 13 U/L (0-55); ALBUMIN 4.2 GM/DL (3.2-4.5); ALKALINE PHOSPHATASE 71 U/L (40-136); BILIRUBIN,TOTAL 0.2 MG/DL (0.1-1.0); BUN/CREATININE RATIO 10; CALCIUM 9.5 MG/DL (8.5-10.1); CARBON DIOXIDE 31 MMOL/L (21-32); CHLORIDE 97 MMOL/L (98-107); CHOLESTEROL 245 MG/DL (< 200); CREATININE SERUM 0.84 MG/DL (0.60-1.30); GFR ESTIMATED > 60; GLUCOSE 113 MG/DL (70-105); HDL CHOLESTEROL 42 MG/DL (40-60); POTASSIUM 4.5 MMOL/L (3.6-5.0); SODIUM 137 MMOL/L (135-145); TOTAL PROTEIN 7.5 GM/DL (6.4-8.2); TRIGLYCERIDES 319 MG/DL (<150); VLDL CHOLESTEROL 64 MG/DL (5-40)
== END ==
LOC: LAB 09:32
PROVIDERS: ATTEND Physician Assistant
DX: I10 Essential (primary) hypertension (principal); E78.2 Mixed hyperlipidemia
CPT/HCPCS: 36415; 80053; 80061

== ENCOUNTER 2020-10-24 05:59 | Emergency (ER) | payer MEDICAID ==
[~2020-10-24] VITALS: Ht 172 cm; Wt 97.0 kg
[~2020-10-24 05:59] MED LIST changes: -AMIO200T4 PO; +AMIO200T6 PO; +AMLO-250; +AMLO-251 PO; -AMLO10TA7 PO; -AMLO5TAB9; +CLN.1T PO; -CLON0.1T PO
[2020-10-24] MEDS ORDERED: predniSONE 20 MG TAB ONE (06:13)
[2020-10-24] MEDS ORDERED: RT-ALBUTEROL INHALER HFA (VENTOLIN HFA) 18 GM IH ONE (06:13)
[2020-10-24] MEDS ORDERED: ACETAMINOPHEN 500 MG TAB (TYLENOL) ONE (06:16)
[2020-10-24] MEDS ORDERED: RT-ALBUTEROL INHALER HFA (VENTOLIN HFA) 18 GM IH STA (06:18)
[2020-10-24] MEDS ORDERED: ACETAMINOPHEN 500 MG TAB (TYLENOL) PO STA (06:18)
[2020-10-24] MEDS ORDERED: KETOROLAC 30 MG/ML VIAL ONE (06:24)
[2020-10-24] MEDS ORDERED: ONDANSETRON 4 MG/2 ML (SDV) Z0FRAN ONE (06:24)
[2020-10-24] MEDS ORDERED: KETOROLAC 30 MG/ML VIAL IVP STA (06:26)
[2020-10-24] MEDS ORDERED: ALPRAZolam 0.5 MG (XANAX) TAB ONE (06:27)
[2020-10-24 06:28] LABS: ABG BASE EXCESS 10.1 MMOL/L (-2.5-2.5); ABG OXYGEN SATURATION 84 % (94-100); ABG PCO2 68 MMHG (35-45); ABG PO2 50 MMHG (79-93); ABG TCO2 38.4 MMOL/L (21.0-31.0)
[2020-10-24 06:29] LABS: ABG PH 7.34 (7.37-7.43); ALLENS TEST POSITIVE; INSPIRED O2 10; PATIENT TEMP 36.4; VENTILATOR NO
[2020-10-24] MEDS ORDERED: predniSONE 20 MG TAB PO ONE (06:30)
[2020-10-24] MEDS ORDERED: ONDANSETRON 4 MG/2 ML (SDV) Z0FRAN IVP ONE ×2 (06:30→07:00)
[2020-10-24] MEDS ORDERED: ALPRAZolam 0.5 MG (XANAX) TAB PO SCH (06:30)
[2020-10-24 06:35] LABS: ALBUMIN 4.1 GM/DL (3.2-4.5); BASOPHILS # (AUTO) 0.1 10^3/uL (0.0-0.1); BASOPHILS % (AUTO) 1 % (0-10); CHLORIDE 95 MMOL/L (98-107); EOSINOPHILS # (AUTO) 0.1 10^3/uL (0.0-0.3); EOSINOPHILS % (AUTO) 1 % (0-10); HEMATOCRIT 46 % (35-52); HEMOGLOBIN 14.3 g/dL (11.5-16.0); LYMPHOCYTES # (AUTO) 3.3 10^3/uL (1.0-4.0); LYMPHOCYTES % (AUTO) 29 % (12-44); MEAN CORPUSCULAR HEMOGLOBIN 29 pg (25-34); MEAN CORPUSCULAR HGB CONC 31 g/dL (32-36); MEAN CORPUSCULAR VOLUME 94 fL (80-99); MEAN PLATELET VOLUME 8.8 fL (9.0-12.2); MONOCYTES # (AUTO) 0.8 10^3/uL (0.0-1.0); MONOCYTES % (AUTO) 7 % (0-12); NEUTROPHILS # (AUTO) 7.2 10^3/uL (1.8-7.8); NEUTROPHILS % (AUTO) 62 % (42-75); PLATELET COUNT 249 10^3/uL (130-400); POTASSIUM 4.3 MMOL/L (3.6-5.0); SODIUM 141 MMOL/L (135-145); WHITE BLOOD COUNT 11.6 10^3/uL (4.3-11.0)
[2020-10-24 06:36] LABS: CALCIUM 9.1 MG/DL (8.5-10.1)
[2020-10-24 06:37] LABS: GLUCOSE 129 MG/DL (70-105)
[2020-10-24 06:39] LABS: BILIRUBIN,TOTAL 0.2 MG/DL (0.1-1.0); CARBON DIOXIDE 34 MMOL/L (21-32)
[2020-10-24 06:41] LABS: ALKALINE PHOSPHATASE 65 U/L (40-136); CREATININE SERUM 0.81 MG/DL (0.60-1.30); GFR ESTIMATED > 60
[2020-10-24 06:42] LABS: BUN/CREATININE RATIO 12
[2020-10-24 06:44] LABS: ALANINE AMINOTRANSFERASE 19 U/L (0-55)
--- NOTE | 2020-10-24 06:49 | ED General ---
General Chief Complaint: Respiratory Problems Stated Complaint: SOB Nursing Triage Note: brought in by [facility] for increased soa, htn since 10/19/20 reports worse tonight. Nursing Sepsis Screen: No Definite Risk Source of Information: Patient Exam Limitations: No Limitations History of Present Illness Date Seen by Provider: Oct 24, 2020 Time Seen by Provider: 06:05 Initial Comments Here by EMS with report of worsening respiratory distress since 10/19/2020. Has history of COPD with multiple exacerbations yearly. Last admission was 2 years ago for pneumonia. Denies contact with COVID-19 and states her son does all the shopping and lives with her. She does have skilled workers that help as well. Denies fever but does have runny nose and cough with drainage. Does complain of a headache with the cough. Started prednisone at home that she had leftover from previous illness. Does continue to smoke and is on oxygen at 4 L at night but states that she does not really have to wear it during the day typically. She has been using her albuterol treatments every 4 hours and states that is making her a little jittery. Has mild nausea but no vomiting and complains of mild constipation that is typical and unchanged from normal. Does complain of chronic swelling to her feet with right greater than left. This is also typical. Timing/Duration: 3-4 Days, Getting Worse Severity: Moderate Associated Systoms: No Chest Pain; Cough; No Fever/Chills; Headaches, Nausea/Vomiting, Shortness of Air; No Weakness Allergies and Home Medications Allergies Coded Allergies: buspirone HCl (Verified Allergy, Unknown, 10/11/18) etodolac (Verified Allergy, Unknown, 10/11/18) NSAIDS (Non-Steroidal Anti-Inflamma (Verified Adverse Reaction, Unknown, 10/11/18) Neuromuscular Blockers, Steroidal (Verified Adverse Reaction, Unknown, 10/11/18) gabapentin (Verified Adverse Reaction, Unknown, 10/11/18) Home Medications Albuterol Sulfate 1 Puff Puff, 2 PUFF INH QID PRN for SHORTNESS OF BREATH, (Reported) Albuterol Sulfate 2.5 Mg/3 Ml Vial.neb, 2.5 MG NEB Q4H PRN for SHORTNESS OF BREATH, (Reported) Alprazolam 0.5 Mg Tablet, 0.5 MG PO TID PRN for ANXIETY, (Reported) Amlodipine Besylate 10 Mg Tablet, 10 MG PO DAILY, (Reported) Artificial Tears 15 Ml Soln, 1 DROP OU Q4H PRN for DRY EYES, (Reported) Aspirin 325 Mg Tablet.dr, 325 MG PO DAILY, (Reported) Atenolol 50 Mg Tablet, 50 MG PO HS, (Reported) Azithromycin 250 Mg Tablet, 250 MG PO UD TAKE 2 TABLETS ON DAY ONE THEN TAKE 1 TABLET DAILY FOR FOUR MORE DAYS Prescribed by: OZIEL MONREAL on 10/09/181604 Cefuroxime Axetil 250 Mg Tablet, 250 MG PO BID Prescribed by: EREN MCDONALD on 05/07/191448 Cetirizine HCl 10 Mg Tablet, 10 MG PO DAILY, (Reported) Cholecalciferol (Vitamin D3) 5,000 Unit Tablet, 5,000 UNIT PO DAILY, (Reported) Clonidine HCl 0.1 Mg Tablet, 0.1 MG PO TID, (Reported) Dicyclomine HCl 20 Mg Tablet, 20 MG PO QID PRN for STOMACH UPSET, (Reported) Docusate Sodium 100 Mg Capsule, 100 MG PO BID PRN for CONSTIPATION-1ST LINE, (Reported) Doxycycline Hyclate 100 Mg Tablet, 100 MG PO BID Prescribed by: EREN MCDONALD on 07/02/192231 Enalapril Maleate 20 Mg Tablet, 10 MG PO BID, (Reported) take 1/2 of 20mg tab Fluticasone Propionate 16 Gm [place].susp, 1 SPRAY NSEACH BID, (Reported) Fluticasone/Salmeterol 1 Each Blst.w.dev, 1 PUFF IH BID, (Reported) Lactobacillus Acidophilus 1 Each Capsule, 1 CAP PO DAILY, (Reported) [place] 3 Polyunsat Fatty Acids 1,000 Mg Cap, 2,000 MG PO DAILY, (Reported) take 2 (1000mg) tabs Omeprazole 40 Mg Capsule.dr, 40 MG PO DAILY, (Reported) Ondansetron 4 Mg Tab.rapdis, 4 MG PO Q6H PRN for NAUSEA/VOMITING Prescribed by: OZIEL MONREAL on 10/09/181604 Prednisone 20 Mg Tab, 40 MG PO DAILY Prescribed by: EREN MCDONALD on 05/07/191448 Prednisone 20 Mg Tab, 40 MG PO DAILY Prescribed by: EREN MCDONALD on 07/02/192231 Prednisone 20 Mg Tab, 20 MG PO DAILY Prescribed by: OZIEL MONREAL on 04/14/20 0815 Ranitidine HCl 150 Mg Tablet, 150 MG PO BID, (Reported) Simethicone 125 Mg Tab.chew, 2 TAB PO BID PRN for GAS, (Reported) Patient Home Medication List Home Medication List Reviewed: Yes Review of Systems Review of Systems Constitutional: see HPI; No chills, No fever EENTM: nose congestion; No throat pain Respiratory: cough, short of breath, wheezing Cardiovascular: No chest pain; edema Gastrointestinal: nausea; No vomiting Genitourinary: no symptoms reported Musculoskeletal: no symptoms reported Psychiatric/Neurological: See HPI, Anxiety, Headache All Other Systems Reviewed Negative Unless Noted: Yes Past Ugwgnpd-Ysnopa-Woszln Hx Past Med/Social Hx: Reviewed Nursing Past Med/Soc Hx Patient Social History Alcohol Use: Denies Use Smoking Status: Current Everyday Smoker Type Used: Cigarettes 2nd Hand Smoke Exposure: Yes Recent Infectious Disease Expo: No Recent Hopitalizations: No Immunizations Up To Date Tetanus Booster (TDap): Unknown Date of Pneumonia Vaccine: Aug 07, 2018 Date of Influenza Vaccine: Nov 08, 2017 Seasonal Allergies Seasonal Allergies: Yes Past Medical History Surgeries: Yes (pericardial window, c/s x2lung thoracensis) Abdominal, Appendectomy, Cardiac, Section, Gallbladder, Hysterectomy, Oophorectomy Respiratory: Yes Asthma, Pneumonia, Pulmonary Embolism, Sleep Apnea, COPD, Emphysema Currently Using CPAP: No Currently Using BIPAP: No Cardiac: Yes (Pericardial effusion-S/P PERICARDIAL WINDOW 08/2017) Atrial Fibrillation, Chronic Edema/Swelling, Deep Vein Thrombosis, High Cholesterol, Hypertension Neurological: Yes (PSEUDO SEIZURES ) Seizure Disorder : No 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 Disorders: Yes Female 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 Disorders: Ovarian Cyst ER RN History: Hysterectomy, 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, Menopausal Genitourinary: No Gastrointestinal: Yes Abdominal Hernia, Gastroesophageal Reflux, Diverticulosis, Hiatal Hernia, Ulcer, Irritable Bowel Musculoskeletal: Yes (CHRONIC KNEE AND HIP PAIN, SPINAL STENOSIS) Degenerate Disk Disease, Osteoporosis, Arthritis, Chronic Back Pain Endocrine: No HEENT: No Cancer: No Psychosocial: Yes Pseudo Seizures, Anxiety, Depression Integumentary: Yes Eczema Blood Disorders: No Adverse Reaction/Blood Tranf: No Family Medical History Reviewed Nursing Family Hx FH: cirrhosis 19 MOTHER FH: liver cancer 19 MOTHER FHx: lung cancer 19 FATHER Hypertension 19 FATHER 19 MOTHER No Pertinent Family Hx Physical Exam-Suspected Sepsis Physical Exam Vital Signs Vital Signs - First Documented 10/24/20 06:02 Pulse 76 Resp 22 B/P (MAP) 143/116 (125) Pulse Ox 97 O2 Delivery OxyMask Capillary Refill : Less Than 3 Seconds Blood Pressure Mean: 125 Height, Weight, BMI Height: 5'8.00" Weight: 201lbs. 0.8oz. 91.911507ic; 32.00 BMI Method:Stated General Appearance: Chronically ill, Mild Distress HEENT: PERRL/EOMI, Pharynx Normal Neck: Non Tender, Supple Respiratory: Accessory Muscle Use, Decreased Breath Sounds, Respiratory Distress, Wheezing (Few trace) Cardiovascular: Regular Rate, Rhythm, No Murmur Gastrointestinal: Non Tender, Soft Back: Normal Inspection, No CVA Tenderness, No Vertebral Tenderness Extremity: Normal Range of Motion, Non Tender, Pedal Edema (Mild right greater than left 1+ pedal edema) Neurologic/Psychiatric: Alert, Oriented x3 Skin: normal color, warm/dry Focused Exam Lactate Level 10/24/20 06:04: Lactic Acid Level 1.52 Lactic Acid Level Laboratory Tests Test 10/24/20 06:04 Lactic Acid Level 1.52 MMOL/L (0.50-2.00) Progress/Results/Core Measures Suspected Sepsis Recent Fever Within 48 Hours: No Infection Criteria Present: None New/Unexplained Altered Menta: No Sepsis Screen: No Definite Risk SIRS Temperature: Pulse: 76 Respiratory Rate: 22 Laboratory Tests 10/24/20 06:04: White Blood Count 11.6H Blood Pressure 143 /116 Mean: 125 10/24/20 06:04: Lactic Acid Level 1.52 Laboratory Tests 10/24/20 06:04: Creatinine 0.81, INR Comment 0.9, Platelet Count 249, Total Bilirubin 0.2 Results/Orders Lab Results Laboratory Tests Test 10/24/20 06:04 10/24/20 06:18 Range/Units White Blood Count 11.6 H 4.3-11.0 10^3/uL Red Blood Count 4.90 3.80-5.11 10^6/uL Hemoglobin 14.3 11.5-16.0 g/dL Hematocrit 46 35-52 % Mean Corpuscular Volume 94 80-99 fL Mean Corpuscular Hemoglobin 29 25-34 pg Mean Corpuscular Hemoglobin Concent 31 L 32-36 g/dL Red Cell Distribution Width 13.3 10.0-14.5 % Platelet Count 249 130-400 10^3/uL Mean Platelet Volume 8.8 L 9.0-12.2 fL Immature Granulocyte % (Auto) 1 % Neutrophils (%) (Auto) 62 42-75 % Lymphocytes (%) (Auto) 29 12-44 % Monocytes (%) (Auto) 7 0-12 % Eosinophils (%) (Auto) 1 0-10 % Basophils (%) (Auto) 1 0-10 % Neutrophils # (Auto) 7.2 1.8-7.8 10^3/uL Lymphocytes # (Auto) 3.3 1.0-4.0 10^3/uL Monocytes # (Auto) 0.8 0.0-1.0 10^3/uL Eosinophils # (Auto) 0.1 0.0-0.3 10^3/uL Basophils # (Auto) 0.1 0.0-0.1 10^3/uL Immature Granulocyte # (Auto) 0.1 0.0-0.1 10^3/uL Prothrombin Time 12.6 12.2-14.7 SEC INR Comment 0.9 0.8-1.4 Activated Partial Thromboplast Time 29 24-35 SEC D-Dimer 0.26 0.00-0.49 UG/ML Sodium Level 141 135-145 MMOL/L Potassium Level 4.3 3.6-5.0 MMOL/L Chloride Level 95 L 98-107 MMOL/L Carbon Dioxide Level 34 H 21-32 MMOL/L Anion Gap 12 5-14 MMOL/L Blood Urea Nitrogen 10 7-18 MG/DL Creatinine 0.81 0.60-1.30 MG/DL Estimat Glomerular Filtration Rate > 60 BUN/Creatinine Ratio 12 Glucose Level 129 H 70-105 MG/DL Lactic Acid Level 1.52 0.50-2.00 MMOL/L Calcium Level 9.1 8.5-10.1 MG/DL Corrected Calcium 9.0 8.5-10.1 MG/DL Total Bilirubin 0.2 0.1-1.0 MG/DL Aspartate Amino Transf (AST/SGOT) 16 5-34 U/L Alanine Aminotransferase (ALT/SGPT) 19 0-55 U/L Alkaline Phosphatase 65 40-136 U/L C-Reactive Protein High Sensitivity 2.78 H 0.00-0.50 MG/DL B-Type Natriuretic Peptide 92.2 <100.0 PG/ML Total Protein 8.0 6.4-8.2 GM/DL Albumin 4.1 3.2-4.5 GM/DL Procalcitonin 0.02 <0.10 NG/ML Blood Gas Puncture Site RIGHT RADIAL Blood Gas Patient Temperature 36.4 Arterial Blood pH 7.34 *L 7.37-7.43 Arterial Blood Partial Pressure CO2 68 H 35-45 MMHG Arterial Blood Partial Pressure O2 50 L 79-93 MMHG Arterial Blood HCO3 36 H 23-27 MMOL/L Arterial Blood Total CO2 38.4 H 21.0-31.0 MMOL/L Arterial Blood Oxygen Saturation 84 L 94-100 % Arterial Blood Base Excess 10.1 H -2.5-2.5 MMOL/L Ac Test POSITIVE Blood Gas Ventilator Setting NO Blood Gas Inspired Oxygen 10 Coronavirus 2019 (ROSEANNE) Negative Negative Micro Results Microbiology 10/24/20 Influenza Types A,B Antigen (RACHEL) - Final, Complete My Orders Orders - OZIEL MONREAL MD Prednisone Tablet (Deltasone Tablet) (10/24/20 06:13) Albuterol Inhaler (Ventolin Hfa) (10/24/20 06:13) Acetaminophen Tablet (Tylenol Tablet) (10/24/20 06:16) Cbc With Automated Diff (10/24/20 06:18) Comprehensive Metabolic Panel (10/24/20 06:18) Blood Culture (10/24/20 06:18) Sputum Culture (10/24/20 06:18) Urinalysis (10/24/20 06:18) Urine Culture (10/24/20 06:18) Protime With Inr (10/24/20 06:18) Partial Thromboplastin Time (10/24/20 06:18) Chest 1 View, Ap/Pa Only (10/24/20 06:18) Ed Iv/Invasive Line Start (10/24/20 06:18) Vital Signs Adult Sepsis Patie Q15M (10/24/20 06:18) O2 (10/24/20 06:18) Remove Rings In Anticipation O (10/24/20 06:18) Lactic Acid Analyzer (10/24/20 06:18) Influenza A And B Antigens (10/24/20 06:18) BNP (10/24/20 06:18) Hs C Reactive Protein (10/24/20 06:18) Fibrin Degradation Products (10/24/20 06:18) Procalcitonin (Pct) (10/24/20 06:18) Acetaminophen Tablet (Tylenol Tablet) (10/24/20 06:18) Prednisone Tablet (Deltasone Tablet) (10/24/20 06:30) Albuterol Inhaler (Ventolin Hfa) (10/24/20 06:18) Covid 19 Inhouse Test (10/24/20 06:18) Arterial Blood Gas (10/24/20 06:22) Ondansetron Injection (Zofran Injectio (10/24/20 06:30) Ketorolac Injection (Toradol Injection) (10/24/20 06:26) Ketorolac Injection (Toradol Injection) (10/24/20 06:24) Ondansetron Injection (Zofran Injectio (10/24/20 06:24) Alprazolam Tablet (Xanax Tablet) (10/24/20 06:30) Alprazolam Tablet (Xanax Tablet) (10/24/20 06:27) Ondansetron Injection (Zofran Injectio (10/24/20 07:00) Medications Given in ED Current Medications Medications Dose Ordered Sig/Tino Route Start Time Stop Time Status Last Admin Dose Admin Ondansetron HCl 4 mg ONCE ONCE IVP 10/24/20 06:30 10/24/20 06:31 DC 10/24/20 06:30 4 MG Ondansetron HCl 4 mg ONCE ONCE IVP 10/24/20 07:00 10/24/20 07:01 DC 10/24/20 07:04 4 MG Prednisone 40 mg ONCE ONCE PO 10/24/20 06:30 10/24/20 06:31 DC 10/24/20 06:30 40 MG Vital Signs/I&O 10/24/20 06:02 Pulse 76 Resp 22 B/P (MAP) 143/116 (125) Pulse Ox 97 O2 Delivery OxyMask Capillary Refill : Less Than 3 Seconds Blood Pressure Mean: 125 Progress Note : Progress Note Seen and evaluated. Sepsis protocol initiated. We will additionally check COVID-19 via rapid swab and influenza via rapid swab. Prednisone 40 mg p.o., Zofran 4 mg IV, Tylenol 1 g p.o. and Toradol 30 mg IV ordered. Patient reports that she takes ibuprofen daily and she is not allergic to that. Albuterol MDI 2 puffs now. O2 switched from high flow mask to nasal cannula at 3 L with O2 sats in the mid 90s. Patient requested Xanax 0.5 mg p.o. for anxiety which was ordered. Monitor patient. 0739: Overall doing better now. Patient is drinking coffee without distress. Blood pressure 120s over 70s currently. Chest x-ray does not show any acute findings. Labs do not show any indication of severe event. Safe for discharge home. I did discuss this with the patient and she agrees. Discharged home with return precautions. Patient verbalized understanding of instructions and agreement with plan. Diagnostic Imaging Diagonstic Imaging: Xray Plain Films/CT/US/NM/MRI: chest Comments [facility]. [place], [place] NAME: MAHNAZ VANCE [facility] REC#: [id number] PT STATUS: REG ER : 1965 PHYSICIAN: OZIEL MONREAL MD ADMIT DATE: 10/24/20/ER Draft Date of Exam:10/24/20 CHEST 1 VIEW, AP/PA ONLY INDICATION: Shortness of air, cough and congestion, history of COPD. EXAMINATION: Chest 10/24/2020. COMPARISON: 04/14/2020 FINDINGS: There are chronic interstitial changes throughout both lungs. No infiltrates or effusions. There is no pneumothorax. Heart is unremarkable. Pulmonary vasculature minimally prominent. IMPRESSION: 1. Mild pulmonary vascular congestion. 2. Chronic appearing changes throughout both lungs with mild edema not excluded. Dictated on workstation # [id number] Dict: 10/24/20 0702 Trans: 10/24/20 0710 CV [id number] Interpreted by: CYNDI ALEXANDER MD Electronically signed by: Reviewed: Reviewed by Me Departure Impression Primary Impression: COPD with acute exacerbation Disposition: HOME, SELF-CARE Condition: Stable Departure-Patient Inst. Decision time for Depature: 07:41 Referrals: KAITLIN TURNER MD (PCP/Family) Primary Care Physician Patient Instructions: Exacerbation of COPD, Acute Bronchitis, Adult (DC) Add. Discharge Instructions: All discharge instructions reviewed with patient and/or family. Voiced understanding. Take medications as directed. Follow-up with your doctor for recheck in a few days. Return for worse breathing, weakness, chest pain, fever or other concerns as needed. Continue home albuterol treatments every 4 hours. You may use your home O2 during the day if needed and continue nighttime dosing as previously prescribed. You may use Afrin nasal spray or the generic, 2 sprays to each nostril twice daily for 3 days only and then stop. Do not use more than 3 days. You may take Tylenol and/or ibuprofen per package directions as tolerated. Drink plenty of fluids. Scripts Prednisone (Prednisone) 20 Mg Tab 40 MG PO DAILY, #10 TAB 0 Refills Prov: OZIEL MONREAL MD 10/24/20 Azithromycin (Azithromycin) 250 Mg Tablet 250 MG PO UD, #6 TAB TAKE 2 TABLETS ON DAY ONE THEN TAKE 1 TABLET DAILY FOR FOUR MORE DAYS Prov: OZIEL MONREAL MD 10/24/20 Copy Copies To 1: KAITLIN TURNER MD, TIMOTHY D MD Oct 24, 2020 06:48
[2020-10-24 07:05] LABS: FIBRIN DEGRADATION PRODUCTS 0.26 UG/ML (0.00-0.49); INR 0.9 (0.8-1.4); PROTHROMBIN TIME PATIENT 12.6 SEC (12.2-14.7)
--- NOTE | 2020-10-24 07:11 | Diagnostic Imaging Report ---
INDICATION: Shortness of air, cough and congestion, history of COPD. EXAMINATION: Chest 10/24/2020. COMPARISON: 04/14/2020 FINDINGS: There are chronic interstitial changes throughout both lungs. No infiltrates or effusions. There is no pneumothorax. Heart is unremarkable. Pulmonary vasculature minimally prominent. IMPRESSION: 1. Mild pulmonary vascular congestion. 2. Chronic appearing changes throughout both lungs with mild edema not excluded. Dictated by: Dictated on workstation # [id number]
[2020-10-24] MEDS ORDERED: AZIT250T12 PO (07:43)
[2020-10-24] MEDS ORDERED: PRD20T PO (07:43)
[2020-10-24 08:01] VITALS: BP 113/66
[2020-10-25] MEDS ORDERED: FLUT1BLS13 INH (15:36)
[2020-10-25] MEDS ORDERED: OMEG10006 PO (15:36)
[2020-10-25] MEDS ORDERED: DIPH25CA79 PO (15:36)
[2020-10-25] MEDS ORDERED: ONDA4TAB11 PO (15:36)
[2020-10-25] MEDS ORDERED: DOCU-238 PO (15:36)
[2020-10-25] MEDS ORDERED: FOLI1TAB33 PO (15:36)
[2020-10-25] MEDS ORDERED: EZET10TA49 PO (15:36)
[2020-10-25] MEDS ORDERED: OMEP20CA18 PO (15:36)
[2020-10-25] MEDS ORDERED: OXYM15MI4 NSEACH (15:36)
[2020-10-25] MEDS ORDERED: SODI30SP2 NSEACH (15:36)
[2020-10-25] MEDS ORDERED: PRD20T PO (15:36)
[2020-10-25] MEDS ORDERED: GUAI-367 PO (15:36)
[2020-10-25] MEDS ORDERED: AZIT250T12 PO (15:39)
[2020-10-25] MEDS ORDERED: CHOL500044 PO (15:41)
== END 2020-10-24 08:01 | disposition home or self-care (01) ==
LOC: EDUNIT# 05:59 → ER 06:02
DX: J44.1 Chronic obstructive pulmonary disease with (acute) exacerbation (principal); F41.9 Anxiety disorder, unspecified; K21.9 Gastro-esophageal reflux disease without esophagitis; I10 Essential (primary) hypertension; F17.210 Nicotine dependence, cigarettes, uncomplicated; Z20.822 Contact with and (suspected) exposure to COVID-19; Z88.6 Allergy status to analgesic agent; Z88.8 Allergy status to other drugs, medicaments and biological substances; Z80.1 Family history of malignant neoplasm of trachea, bronchus and lung; Z82.49 Family history of ischemic heart disease and other diseases of the circulatory system; Z80.0 Family history of malignant neoplasm of digestive organs; Z79.82 Long term (current) use of aspirin; Z79.52 Long term (current) use of systemic steroids
CPT/HCPCS: 71045; 80053; 82805; 83605; 83880; 84145; 85025; 85379; 85610; 85730; 86141; 87040; 87804; U0002; 36415; 87635

== ENCOUNTER 2020-10-25 07:55 | Inpatient (IN) | payer MEDICAID ==
[~2020-10-25] VITALS: Ht 172 cm; Wt 98.5 kg
[2020-10-25] MEDS ORDERED: methylPREDNISolone 125 MG (Solu-MEDROL) VIAL IV STA (08:04)
[2020-10-25] MEDS ORDERED: RT-ALBUTEROL SULF 2.5 MG/3 ML PRE-MIX VIAL ONE (08:06)
[2020-10-25] MEDS ORDERED: RT-ALBUTEROL SULF 2.5 MG/3 ML PRE-MIX VIAL INH STA ×2 (08:08→09:25)
[2020-10-25] MEDS ORDERED: LACTATED RINGERS 1,000 ML IV ONE (08:15)
[2020-10-25] MEDS ORDERED: LORazepam INJ 2 MG/ML (ATIVAN) VIAL IVP ONE (08:15)
--- NOTE | 2020-10-25 08:15 | ED Dyspnea ---
General Stated Complaint: SOB Source of Information: Patient Exam Limitations: No Limitations (BROOKE SALCIDO) History of Present Illness Date Seen by Provider: Oct 25, 2020 Time Seen by Provider: 08:00 Initial Comments Pt to ER by EMS for shortness of breath. She was seen here yesterday for similar complaints after testing negative for COVID rapid and PCR. She has a significant history of COPD and continues to smoke hand rolled cigarettes but has not smoked in a couple days. She had some diarrhea since going home yesterday. She reports taking her antibiotic and prednisone last night, but states the steroids make her more anxious and mess with her blood sugars. She did not take the steroid this morning due to these side effects. She states she wore her home oxygen at 4L all day yesterday and last night. She was able to take her home blood pressure medications this morning, but states she was "all off on her schedule yesterday". She is concerned because she has not been able to sleep for several days and reports not drinking much fluids as well. Timing/Duration: 4-6 Hours Severity: Moderate Activities at Onset: Activity, Rest, Sleeping Prior Episodes/Possible Cause: Chronic Episodes Modifying Factors: Improves With Albuterol Nebulizer, Improves With Oxygen Associated Symptoms: Anxiety, Cough, Weakness (BROOKE SALCIDO) Severity: Moderate, Severe Activities at Onset: Activity, Rest Prior Episodes/Possible Cause: Chronic Episodes, Frequent Episodes Modifying Factors: Improves With Albuterol Nebulizer; Worse With Coughing; Improves With Oxygen Associated Symptoms: Anxiety, Cough, Fever, Weakness, Wheezing (OZIEL MONREAL MD) Allergies and Home Medications Allergies Coded Allergies: buspirone HCl (Verified Allergy, Unknown, 10/11/18) etodolac (Verified Allergy, Unknown, 10/11/18) NSAIDS (Non-Steroidal Anti-Inflamma (Verified Adverse Reaction, Unknown, 10/11/18) Neuromuscular Blockers, Steroidal (Verified Adverse Reaction, Unknown, 10/11/18) gabapentin (Verified Adverse Reaction, Unknown, 10/11/18) Home Medications Albuterol Sulfate 1 Puff Puff, 2 PUFF INH QID PRN for SHORTNESS OF BREATH, (Reported) Albuterol Sulfate 2.5 Mg/3 Ml Vial.neb, 2.5 MG NEB Q4H PRN for SHORTNESS OF BREATH, (Reported) Alprazolam 0.5 Mg Tablet, 0.5 MG PO TID PRN for ANXIETY, (Reported) Amlodipine Besylate 10 Mg Tablet, 10 MG PO DAILY, (Reported) Artificial Tears 15 Ml Soln, 1 DROP OU Q4H PRN for DRY EYES, (Reported) Aspirin 325 Mg Tablet.dr, 325 MG PO DAILY, (Reported) Atenolol 50 Mg Tablet, 50 MG PO HS, (Reported) Azithromycin 250 Mg Tablet, 250 MG PO UD TAKE 2 TABLETS ON DAY ONE THEN TAKE 1 TABLET DAILY FOR FOUR MORE DAYS Prescribed by: OZIEL MONREAL on 10/09/18 1605 Azithromycin 250 Mg Tablet, 250 MG PO UD TAKE 2 TABLETS ON DAY ONE THEN TAKE 1 TABLET DAILY FOR FOUR MORE DAYS Prescribed by: OZIEL MONREAL on 10/24/20 0743 Cefuroxime Axetil 250 Mg Tablet, 250 MG PO BID Prescribed by: EREN MCDONALD on 05/07/19 1449 Cetirizine HCl 10 Mg Tablet, 10 MG PO DAILY, (Reported) Cholecalciferol (Vitamin D3) 5,000 Unit Tablet, 5,000 UNIT PO DAILY, (Reported) Clonidine HCl 0.1 Mg Tablet, 0.1 MG PO TID, (Reported) Dicyclomine HCl 20 Mg Tablet, 20 MG PO QID PRN for STOMACH UPSET, (Reported) Docusate Sodium 100 Mg Capsule, 100 MG PO BID PRN for CONSTIPATION-1ST LINE, (Reported) Doxycycline Hyclate 100 Mg Tablet, 100 MG PO BID Prescribed by: EREN MCDONALD on 07/02/19 2232 Enalapril Maleate 20 Mg Tablet, 10 MG PO BID, (Reported) take 1/2 of 20mg tab Fluticasone Propionate 16 Gm Erick.susp, 1 SPRAY NSEACH BID, (Reported) Fluticasone/Salmeterol 1 Each Blst.w.dev, 1 PUFF IH BID, (Reported) Lactobacillus Acidophilus 1 Each Capsule, 1 CAP PO DAILY, (Reported) [place] 3 Polyunsat Fatty Acids 1,000 Mg Cap, 2,000 MG PO DAILY, (Reported) take 2 (1000mg) tabs Omeprazole 40 Mg Capsule.dr, 40 MG PO DAILY, (Reported) Ondansetron 4 Mg Tab.rapdis, 4 MG PO Q6H PRN for NAUSEA/VOMITING Prescribed by: OZIEL MONREAL on 10/09/18 1605 Prednisone 20 Mg Tab, 40 MG PO DAILY Prescribed by: EREN MCDONALD on 05/07/19 1449 Prednisone 20 Mg Tab, 40 MG PO DAILY Prescribed by: EREN MCDONALD on 07/02/19 2232 Prednisone 20 Mg Tab, 20 MG PO DAILY Prescribed by: OZIEL MONREAL on 04/14/20 0815 Prednisone 20 Mg Tab, 40 MG PO DAILY Prescribed by: OZIEL MONREAL on 10/24/20 0743 Ranitidine HCl 150 Mg Tablet, 150 MG PO BID, (Reported) Simethicone 125 Mg Tab.chew, 2 TAB PO BID PRN for GAS, (Reported) Patient Home Medication List Home Medication List Reviewed: Yes (OZIEL MONREAL MD) Review of Systems Review of Systems Constitutional: No chills, No fever EENTM: No nose congestion, No throat pain Respiratory: cough, dyspnea on exertion, short of breath, wheezing Cardiovascular: No chest pain; edema (Lymphedema right ankle) Gastrointestinal: No abdominal pain, No constipation; diarrhea, nausea; No vomiting Genitourinary: No dysuria; hesitancy (Chronic) Musculoskeletal: back pain; No muscle weakness Psychiatric/Neurological: Anxiety; Denies Headache, Denies Numbness, Denies Tingling (BROOKE SALCIDO) All Other Systems Reviewed Negative Unless Noted: Yes (OZIEL MONREAL MD) Past Yhnusgv-Vefjqk-Lhrtpm Hx Past Med/Social Hx: Reviewed Nursing Past Med/Soc Hx (OZIEL MONREAL MD) Patient Social History Type Used: Cigarettes 2nd Hand Smoke Exposure: Yes Recent Hopitalizations: No (BROOKE SALCIDO) Immunizations Up To Date Tetanus Booster (TDap): Unknown Date of Pneumonia Vaccine: Aug 07, 2018 Date of Influenza Vaccine: Nov 08, 2017 (BROOKE SALCIDO) Seasonal Allergies Seasonal Allergies: Yes (BROOKE SALCIDO) Past Medical History Surgeries: Yes (pericardial window, c/s x2lung thoracensis) Abdominal, Appendectomy, Cardiac, Section, Gallbladder, Hysterectomy, Oophorectomy Respiratory: Yes Asthma, Pneumonia, Pulmonary Embolism, Sleep Apnea, COPD, Emphysema Currently Using CPAP: No Currently Using BIPAP: No Cardiac: Yes (Pericardial effusion-S/P PERICARDIAL WINDOW 08/2017) Atrial Fibrillation, Chronic Edema/Swelling, Deep Vein Thrombosis, High Cholesterol, Hypertension Neurological: Yes (PSEUDO SEIZURES ) Seizure Disorder 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 Disorders: Yes 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, 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, Menopausal Genitourinary: No Gastrointestinal: Yes Abdominal Hernia, Gastroesophageal Reflux, Diverticulosis, Hiatal Hernia, Ulcer, Irritable Bowel Musculoskeletal: Yes (CHRONIC KNEE AND HIP PAIN, SPINAL STENOSIS) Degenerate Disk Disease, Osteoporosis, Arthritis, Chronic Back Pain Endocrine: No HEENT: No Cancer: No Psychosocial: Yes Pseudo Seizures, Anxiety, Depression Integumentary: Yes Eczema Blood Disorders: No Adverse Reaction/Blood Tranf: No (BROOKE SALCIDO) Family Medical History Reviewed Nursing Family Hx (OZIEL MONREAL MD) FH: cirrhosis 19 MOTHER FH: liver cancer 19 MOTHER FHx: lung cancer 19 FATHER Hypertension 19 FATHER 19 MOTHER No Pertinent Family Hx (BROOKE SALCIDO) Physical Exam Vital Signs Vital Signs - First Documented 10/25/20 07:55 Temp 36.2 Pulse 81 Resp 24 B/P (MAP) 177/103 (127) Pulse Ox 94 O2 Delivery Nasal Cannula O2 Flow Rate 2.00 (OZIEL MONREAL MD) Vital Signs Capillary Refill : (BROOKE SALCIDO) Height, Weight, BMI Height: 5'8.00" Weight: 201lbs. 0.8oz. 91.620287qq; 32.00 BMI Method:Stated General Appearance: Moderate Distress HEENT: PERRL/EOMI, Pharynx Normal Neck: Full Range of Motion, Normal Inspection, Non Tender, Supple Respiratory: Chest Non Tender, Wheezing (Throughout lungs) Cardiovascular: Regular Rate, Rhythm, Normal Peripheral Pulses Gastrointestinal: Non Tender, Soft Skin: Normal Color, Warm/Dry (BROOKE SALCIDO) General Appearance: Chronically ill, Moderate Distress, Obese HEENT: PERRL/EOMI, Pharynx Normal Neck: Non Tender, Supple Respiratory: Decreased Breath Sounds, Wheezing (Throughout lungs) Cardiovascular: Regular Rate, Rhythm, No Murmur Gastrointestinal: Non Tender, Soft Extremity: Normal Range of Motion, Non Tender, Pedal Edema (Mild bilateral) Neurologic/Psychiatric: Alert, Oriented x3 Skin: Normal Color, Warm/Dry (OZIEL MONREAL MD) Progress/Results/Core Measures Results/Orders Lab Results Laboratory Tests Test 10/25/20 08:00 10/25/20 08:15 Range/Units White Blood Count 11.4 H 4.3-11.0 10^3/uL Red Blood Count 4.88 3.80-5.11 10^6/uL Hemoglobin 14.2 11.5-16.0 g/dL Hematocrit 46 35-52 % Mean Corpuscular Volume 94 80-99 fL Mean Corpuscular Hemoglobin 29 25-34 pg Mean Corpuscular Hemoglobin Concent 31 L 32-36 g/dL Red Cell Distribution Width 13.2 10.0-14.5 % Platelet Count 249 130-400 10^3/uL Mean Platelet Volume 8.7 L 9.0-12.2 fL Immature Granulocyte % (Auto) 1 % Neutrophils (%) (Auto) 67 42-75 % Lymphocytes (%) (Auto) 23 12-44 % Monocytes (%) (Auto) 9 0-12 % Eosinophils (%) (Auto) 1 0-10 % Basophils (%) (Auto) 0 0-10 % Neutrophils # (Auto) 7.6 1.8-7.8 10^3/uL Lymphocytes # (Auto) 2.7 1.0-4.0 10^3/uL Monocytes # (Auto) 1.0 0.0-1.0 10^3/uL Eosinophils # (Auto) 0.1 0.0-0.3 10^3/uL Basophils # (Auto) 0.0 0.0-0.1 10^3/uL Immature Granulocyte # (Auto) 0.1 0.0-0.1 10^3/uL Sodium Level 139 135-145 MMOL/L Potassium Level 3.7 3.6-5.0 MMOL/L Chloride Level 92 L 98-107 MMOL/L Carbon Dioxide Level 36 H 21-32 MMOL/L Anion Gap 11 5-14 MMOL/L Blood Urea Nitrogen 8 7-18 MG/DL Creatinine 0.81 0.60-1.30 MG/DL Estimat Glomerular Filtration Rate > 60 BUN/Creatinine Ratio 10 Glucose Level 151 H 70-105 MG/DL Calcium Level 9.5 8.5-10.1 MG/DL Corrected Calcium 9.2 8.5-10.1 MG/DL Magnesium Level 1.9 1.6-2.4 MG/DL Total Bilirubin 0.2 0.1-1.0 MG/DL Aspartate Amino Transf (AST/SGOT) 23 5-34 U/L Alanine Aminotransferase (ALT/SGPT) 22 0-55 U/L Alkaline Phosphatase 66 40-136 U/L Total Protein 8.4 H 6.4-8.2 GM/DL Albumin 4.4 3.2-4.5 GM/DL Blood Gas Puncture Site LEFT WRIST Blood Gas Patient Temperature 36.2 Arterial Blood pH 7.38 7.37-7.43 Arterial Blood Partial Pressure CO2 67 H 35-45 MMHG Arterial Blood Partial Pressure O2 65 L 79-93 MMHG Arterial Blood HCO3 39 H 23-27 MMOL/L Arterial Blood Total CO2 40.8 H 21.0-31.0 MMOL/L Arterial Blood Oxygen Saturation 92 L 94-100 % Arterial Blood Base Excess 12.9 H -2.5-2.5 MMOL/L Ac Test POSITIVE Blood Gas Ventilator Setting NO Blood Gas Inspired Oxygen 2 L (OZIEL MONREAL MD) My Orders Orders - OZIEL MONREAL MD Cbc With Automated Diff (10/25/20 08:04) Comprehensive Metabolic Panel (10/25/20 08:04) Magnesium (10/25/20 08:04) Chest 1 View, Ap/Pa Only (10/25/20 08:04) Methylprednisolone Sod Succ (Solu-Medrol (10/25/20 08:04) Arterial Blood Gas (10/25/20 08:04) Lactated Ringers (Lr 1000 Ml Iv Solution (10/25/20 08:15) Albuterol Pre-Mix Nebs (Rt) (Proventil (10/25/20 08:08) Svn Small Volume Nebulizer (10/25/20 08:08) Albuterol Pre-Mix Nebs (Rt) (Proventil (10/25/20 08:06) Lorazepam Injection (Ativan Injection) (10/25/20 08:15) Ekg Tracing (10/25/20 08:11) (OZIEL MONREAL MD) Medications Given in ED Current Medications Medications Dose Ordered Sig/Tino Route Start Time Stop Time Status Last Admin Dose Admin Lactated Ringer's 1,000 ml @ 0 mls/hr Q0M ONCE IV 10/25/20 08:15 10/25/20 08:16 DC 10/25/20 08:23 1,000 MLS/HR Lorazepam 0.5 mg ONCE ONCE IVP 10/25/20 08:15 10/25/20 08:16 DC 10/25/20 08:22 0.5 MG (OZIEL MONREAL MD) Vital Signs/I&O 10/25/20 07:55 Temp 36.2 Pulse 81 Resp 24 B/P (MAP) 177/103 (127) Pulse Ox 94 O2 Delivery Nasal Cannula O2 Flow Rate 2.00 (OZIEL MONREAL MD) Progress Progress Note : Progress Note 0800: Pt arrived via EMS receiving DuoNeb treatment, with peripheral line in place, tripod positioning, appearing very anxious. CBC, CMP, ABG, CXR, 1L NS ordered, ECG ordered. Albuterol treatment x3 started. Solumedrol ordered. 0.5mg home Ativan ordered. (BROOKE SALCIDO) Progress Note : Progress Note I have seen and evaluated the patient and agree with above except as indicated. I have directed the plan of care. Patient is here with persistent shortness of air despite treatments and medications initiated yesterday. Seen yesterday for the same. She was better at discharge but states that she got worse throughout the day and has diarrhea and nausea. She states that she has been unable to sleep. She has not taken her steroid this morning yet. Overall states that things are persisting and or worse. She is so short of breath that she is not even been able to smoke. Denies fevers. Tested for COVID-19 via rapid and send out yesterday and those were negative. Denies any new contacts or other concerns related to COVID-19. Does have long history of COPD with multiple exacerbations and some admissions. She did call EMS today and they did initiate IV and started DuoNeb therapy. This did help some. Initial O2 sat in the 70s p er EMS and has improved now to the low 90s but patient remains dyspneic. Evaluation as above. Plan for labs, IV fluid, EKG and albuterol treatments x3. Solu-Medrol 125 mg IV ordered as well as 0.5 mg of IV Ativan for anxiety. Monitor patient. 0911: Patient still dyspneic and will require further therapy and admission. I did discuss the case with Dr. Castañeda. Continuous 1 hour treatment will be ordered. We will continue IV Solu-Medrol as well as Zofran. Patient will also have orders for IV Ativan for anxiety. Admit, inpatient status. Patient agrees with plan. (OZIEL MONREAL MD) Initial ECG Impression Date: Oct 25, 2020 Initial ECG Impression Time: 08:08 Initial ECG Rate: 82 Initial ECG Rhythm: Normal Sinus Comment Sinus rhythm with artifact. Normal axis. No evidence of ST elevation WI. Interpreted by me. (OZIEL MONREAL MD) Diagnostic Imaging Diagonstic Imaging: Xray Plain Films/CT/US/NM/MRI: chest Comments [facility] [place], [place] NAME: [facility]NAZ [facility] REC#: [id number] PT STATUS: REG ER : 1965 PHYSICIAN: OZIEL MONREAL MD ADMIT DATE: 10/25/20/ER Draft Date of Exam:10/25/20 CHEST 1 VIEW, AP/PA ONLY INDICATION: Shortness of air. COMPARISON: 10/24/2019. FINDINGS: The lungs are clear. There is no failure, effusion, or pneumothorax. IMPRESSION: No acute appearing abnormality. Dictated on workstation # [id number] Dict: 10/25/20 0849 Trans: 10/25/20 0852 [id number] Interpreted by: NANCY KRISHNAMURTHY Electronically signed by: (OZIEL MONREAL MD) Departure Communication (Admissions) Time/Spoke to Admitting Phy: 09:11 (OZIEL MONREAL MD) Impression Primary Impression: COPD with acute exacerbation Additional Impression: Shortness of breath at rest Disposition: ADMITTED INPATIENT Condition: Stable Admissions Decision to Admit Reason: Admit from ER (General) Decision to Admit/Date: Oct 25, 2020 Time/Decision to Admit Time: 09:11 (OZIEL MONREAL MD) Departure-Patient Inst. Referrals: KAITLIN TURNER MD (PCP/Family) Primary Care Physician BROOKE SALCIDO Oct 25, 2020 08:15 OZIEL MONREAL MD Oct 25, 2020 09:24
[2020-10-25 08:18] LABS: BASOPHILS % (AUTO) 0 % (0-10); EOSINOPHILS # (AUTO) 0.1 10^3/uL (0.0-0.3); EOSINOPHILS % (AUTO) 1 % (0-10); HEMATOCRIT 46 % (35-52); HEMOGLOBIN 14.2 g/dL (11.5-16.0); LYMPHOCYTES # (AUTO) 2.7 10^3/uL (1.0-4.0); LYMPHOCYTES % (AUTO) 23 % (12-44); MEAN CORPUSCULAR HEMOGLOBIN 29 pg (25-34); MEAN CORPUSCULAR HGB CONC 31 g/dL (32-36); MEAN CORPUSCULAR VOLUME 94 fL (80-99); MEAN PLATELET VOLUME 8.7 fL (9.0-12.2); MONOCYTES % (AUTO) 9 % (0-12); NEUTROPHILS # (AUTO) 7.6 10^3/uL (1.8-7.8); NEUTROPHILS % (AUTO) 67 % (42-75); PLATELET COUNT 249 10^3/uL (130-400); WHITE BLOOD COUNT 11.4 10^3/uL (4.3-11.0)
[2020-10-25 08:24] LABS: ALBUMIN 4.4 GM/DL (3.2-4.5); CHLORIDE 92 MMOL/L (98-107); POTASSIUM 3.7 MMOL/L (3.6-5.0); SODIUM 139 MMOL/L (135-145)
[2020-10-25 08:25] LABS: CALCIUM 9.5 MG/DL (8.5-10.1)
[2020-10-25 08:26] LABS: GLUCOSE 151 MG/DL (70-105)
[2020-10-25 08:27] LABS: TOTAL PROTEIN 8.4 GM/DL (6.4-8.2)
[2020-10-25 08:28] LABS: BILIRUBIN,TOTAL 0.2 MG/DL (0.1-1.0); CARBON DIOXIDE 36 MMOL/L (21-32)
[2020-10-25 08:30] LABS: ALKALINE PHOSPHATASE 66 U/L (40-136); CREATININE SERUM 0.81 MG/DL (0.60-1.30); GFR ESTIMATED > 60
[2020-10-25 08:31] LABS: BUN/CREATININE RATIO 10
[2020-10-25 08:33] LABS: ALANINE AMINOTRANSFERASE 22 U/L (0-55); MAGNESIUM 1.9 MG/DL (1.6-2.4)
[2020-10-25 08:46] LABS: ABG BASE EXCESS 12.9 MMOL/L (-2.5-2.5); ABG OXYGEN SATURATION 92 % (94-100); ABG PCO2 67 MMHG (35-45); ABG PH 7.38 (7.37-7.43); ABG PO2 65 MMHG (79-93); ABG TCO2 40.8 MMOL/L (21.0-31.0); ALLENS TEST POSITIVE; INSPIRED O2 2 L; PATIENT TEMP 36.2; VENTILATOR NO
--- NOTE | 2020-10-25 08:49 | NUR ---
SPOKE W SON CO PT STATUS
--- NOTE | 2020-10-25 08:52 | Diagnostic Imaging Report ---
INDICATION: Shortness of air. COMPARISON: 10/24/2019. FINDINGS: The lungs are clear. There is no failure, effusion, or pneumothorax. IMPRESSION: No acute appearing abnormality. Dictated by: Dictated on workstation # [id number]
--- NOTE | 2020-10-25 09:25 | NUR ---
RT NOTIFIED OF HOUR LONG TX ORDERED BY DR MONREAL
[2020-10-25] MEDS ORDERED: RT-IPRATROPIUM (ATROVENT) 0.5MG/2.5ML AMP IH ONE (09:30)
[2020-10-25] MEDS ORDERED: LORazepam INJ 2 MG/ML (ATIVAN) VIAL IV PRN (10:00)
[2020-10-25] MEDS ORDERED: CATHETER FLUSH 10 ML SYR IV PRN (10:00)
[2020-10-25] MEDS: LACTATED RINGERS 1,000 ML IV SCH ×2 (10:43→23:51)
--- NOTE | 2020-10-25 11:01 | NUR ---
Pt is Religious and declines Communion. Technical Analyst offered blessing.
[2020-10-25] MEDS ORDERED: FLU QUADRIvalent (3YOA+) 60 mcg/0.5 ml 2020-21 (AFLURIA) IM ONE (11:30)
[2020-10-25 12:00] VITALS: BP 168/83
[2020-10-25 12:30] VITALS: BP 177/103
[2020-10-25] MEDS: methylPREDNISolone 40 MG/ML (Solu-MEDROL) VIAL IV SCH ×3 (12:43→23:51)
--- NOTE | 2020-10-25 12:57 | History & Physical ---
HPI History of Present Illness: Pt noted onset of some sniffles last Sat, was getting worse with breathing and she came to ER yesterday and tested negative for COVID, was given antibiotics and prednisone but she gets very shaky and anxious with steroids and couldn't sleep due to breathing and anxiety. Denies fever. Has chronic nausea. She is on 4 lpm supplemental oxygen at night, but doesn't usually use it during the day. Source: patient Date seen by provider: Oct 25, 2020 Time Seen by Provider: 12:54 Attending Physician Zana Castañeda MD PCP Brooke Gill MD Consult Date of Admission Oct 25, 2020 at 09:12 Home Medications Home Medications Reviewed patient Home Medication Reconciliation performed by pharmacy medication reconciliations certified medical technician and/or nursing. Patients Allergies have been reviewed. Allergies Coded Allergies: buspirone HCl (Verified Allergy, Unknown, 10/11/18) etodolac (Verified Allergy, Unknown, 10/11/18) trazodone (Verified Allergy, Unknown, 10/25/20) Neuromuscular Blockers, Steroidal (Verified Adverse Reaction, Unknown, 10/11/18) gabapentin (Verified Adverse Reaction, Unknown, 10/11/18) GQB-Ohqihr-Xqjnvn Hx Patient Social History Smoking Status: Current Everyday Smoker 2nd Hand Smoke Exposure: Yes Recent Hopitalizations: No Immunizations Up To Date Tetanus Booster (TDap): Unknown Date of Pneumonia Vaccine: Aug 07, 2018 Date of Influenza Vaccine: Nov 08, 2017 Past Medical History PMHx: COPD/emphysema Pericardial effusion with tamponade requiring pericardial window HTN Chronic pain Degenerative disc disease Osteoarthritis Spinal stenosis HLD Anxiety Depression, can't tolerate serotonin meds SurgHx: x 2 Hysterectomy appendectomy cholecystectomy Pericardial window for pericardial effusion with tamponade Oral surgeries x 2 Family Medical History Family History: FH: cirrhosis 19 MOTHER FH: liver cancer 19 MOTHER FHx: lung cancer 19 FATHER Hypertension 19 FATHER 19 MOTHER Review of Systems ([facility]) Constitutional: No fever EENTM: hoarseness, nose congestion, throat pain (started after coughing) Respiratory: cough, short of breath Cardiovascular: chest pain (associated with cough) Gastrointestinal: abdominal pain (gas and muscle pain from coughing), diarrhea (once yesterday), nausea Genitourinary: No dysuria; hesitancy, incontinence (stress) Musculoskeletal: back pain Skin: rash (under left breast, moisture related) Psychiatric/Neurological: Anxiety Reviewed Test Results Reviewed Test Results Lab Laboratory Tests Test 10/25/20 08:00 10/25/20 08:15 Range/Units White Blood Count 11.4 H 4.3-11.0 10^3/uL Red Blood Count 4.88 3.80-5.11 10^6/uL Hemoglobin 14.2 11.5-16.0 g/dL Hematocrit 46 35-52 % Mean Corpuscular Volume 94 80-99 fL Mean Corpuscular Hemoglobin 29 25-34 pg Mean Corpuscular Hemoglobin Concent 31 L 32-36 g/dL Red Cell Distribution Width 13.2 10.0-14.5 % Platelet Count 249 130-400 10^3/uL Mean Platelet Volume 8.7 L 9.0-12.2 fL Immature Granulocyte % (Auto) 1 % Neutrophils (%) (Auto) 67 42-75 % Lymphocytes (%) (Auto) 23 12-44 % Monocytes (%) (Auto) 9 0-12 % Eosinophils (%) (Auto) 1 0-10 % Basophils (%) (Auto) 0 0-10 % Neutrophils # (Auto) 7.6 1.8-7.8 10^3/uL Lymphocytes # (Auto) 2.7 1.0-4.0 10^3/uL Monocytes # (Auto) 1.0 0.0-1.0 10^3/uL Eosinophils # (Auto) 0.1 0.0-0.3 10^3/uL Basophils # (Auto) 0.0 0.0-0.1 10^3/uL Immature Granulocyte # (Auto) 0.1 0.0-0.1 10^3/uL Sodium Level 139 135-145 MMOL/L Potassium Level 3.7 3.6-5.0 MMOL/L Chloride Level 92 L 98-107 MMOL/L Carbon Dioxide Level 36 H 21-32 MMOL/L Anion Gap 11 5-14 MMOL/L Blood Urea Nitrogen 8 7-18 MG/DL Creatinine 0.81 0.60-1.30 MG/DL Estimat Glomerular Filtration Rate > 60 BUN/Creatinine Ratio 10 Glucose Level 151 H 70-105 MG/DL Calcium Level 9.5 8.5-10.1 MG/DL Corrected Calcium 9.2 8.5-10.1 MG/DL Magnesium Level 1.9 1.6-2.4 MG/DL Total Bilirubin 0.2 0.1-1.0 MG/DL Aspartate Amino Transf (AST/SGOT) 23 5-34 U/L Alanine Aminotransferase (ALT/SGPT) 22 0-55 U/L Alkaline Phosphatase 66 40-136 U/L Total Protein 8.4 H 6.4-8.2 GM/DL Albumin 4.4 3.2-4.5 GM/DL Blood Gas Puncture Site LEFT WRIST Blood Gas Patient Temperature 36.2 Arterial Blood pH 7.38 7.37-7.43 Arterial Blood Partial Pressure CO2 67 H 35-45 MMHG Arterial Blood Partial Pressure O2 65 L 79-93 MMHG Arterial Blood HCO3 39 H 23-27 MMOL/L Arterial Blood Total CO2 40.8 H 21.0-31.0 MMOL/L Arterial Blood Oxygen Saturation 92 L 94-100 % Arterial Blood Base Excess 12.9 H -2.5-2.5 MMOL/L Ac Test POSITIVE Blood Gas Ventilator Setting NO Blood Gas Inspired Oxygen 2 L Radiology CXR no acute findings Physical Exam-([facility]) Physical Exam Vital Signs VS - Last 72 Hours, by Label 10/25/20 10/25/20 10/25/20 10/25/20 07:55 08:10 09:34 10:00 Temp 36.2 Pulse 81 84 Resp 24 20 B/P (MAP) 177/103 (127) 156/75 Pulse Ox 94 94 92 O2 Delivery Nasal Cannula Nasal Cannula Nasal Cannula Nasal Cannula O2 Flow Rate 2.00 2.00 2.00 4.00 10/25/20 10/25/20 10/25/20 10/25/20 10:07 12:00 12:30 14:03 Temp 35.2 36.2 Pulse 80 81 Resp 24 B/P (MAP) 168/83 (111) Pulse Ox 100 100 94 90 O2 Delivery Nasal Cannula Nasal Cannula Nasal Cannula O2 Flow Rate 4.00 4.00 3.00 FiO2 28 10/25/20 15:30 Temp 36.9 Pulse 90 Resp 24 B/P (MAP) 169/81 (110) Pulse Ox 93 O2 Delivery Nasal Cannula O2 Flow Rate 3.00 Capillary Refill : Less Than 3 Seconds General Appearance: mild distress Respiratory: decreased breath sounds Cardiovascular: regular rate, rhythm, no murmur Gastrointestinal: normal bowel sounds Extremities: no pedal edema Neurologic/Psychiatric: alert, other (anxious) Skin: normal color, warm/dry Assessment/Plan Assessment/Plan Admission Status: Inpatient Order (span 2 midnights) Reason for Inpatient Admission: Severe COPD exacerbation requiring prolonged treatments and supplemental oxygen (1) COPD with acute exacerbation Status: Acute Assessment & Plan: Hypoxic and hypercapneic, requiring supplemental oxygen above baseline, not tolerating outpatient oral prednisone well. Solumedrol, azithromycin, duonebs and home LABA/ICS. (2) Leukocytosis Status: Acute Assessment & Plan: Very mild, no other signs of acute bacterial infection. Suspect steroid effect. (3) Hypertension Status: Chronic Assessment & Plan: Resume home medications Qualifiers: Qualified Codes: I10 - Essential (primary) hypertension (4) Anxiety Status: Chronic Assessment & Plan: Resume home aprazolam, IV ativan prn. (5) DVT prophylaxis Status: Acute Assessment & Plan: Enoxaparin ZANA CASTAÑEDA MD Oct 25, 2020 12:57
[2020-10-25] MEDS: RT-ALBUTEROL/IPRATROPIUM 3 ML (DUONEB) VIAL INH SCH ×2 (13:58→19:12)
--- NOTE | 2020-10-25 14:11 | NUR ---
Blood cultures were collected in ER on 10/24/20 from this patient. Both bottles are positive with coag negative staph. Dr Castañeda notified via phone, also notified of BP 168/83. Awaiting on pharmacy sales assistant to go through home medications to restart medications. Dr Castañeda to place new orders.
[2020-10-25] MEDS: KETOROLAC 15 MG/ML VIAL IVP PRN ×2 (14:15→21:19)
[2020-10-25] MEDS: ALPRAZolam 0.5 MG (XANAX) TAB PO PRN ×2 (14:15→21:19)
[2020-10-25 15:30] VITALS: BP 169/81
[2020-10-25] MEDS: CYCLOBENZAPRINE 10 MG (FLEXERIL) TAB PO PRN ×2 (15:30→21:19)
[2020-10-25] MEDS ORDERED: FLUT1BLS13 INH (15:36)
[2020-10-25] MEDS ORDERED: OMEP20CA18 PO (15:36)
[2020-10-25] MEDS ORDERED: DIPH25CA79 PO (15:36)
[2020-10-25] MEDS ORDERED: OMEG10006 PO (15:36)
[2020-10-25] MEDS ORDERED: GUAI-367 PO (15:36)
[2020-10-25] MEDS ORDERED: EZET10TA49 PO (15:36)
[2020-10-25] MEDS ORDERED: SODI30SP2 NSEACH (15:36)
[2020-10-25] MEDS ORDERED: OXYM15MI4 NSEACH (15:36)
[2020-10-25] MEDS ORDERED: FOLI1TAB33 PO (15:36)
[2020-10-25] MEDS ORDERED: ONDA4TAB11 PO (15:36)
[2020-10-25] MEDS ORDERED: PRD20T PO (15:36)
[2020-10-25] MEDS ORDERED: DOCU-238 PO (15:36)
[2020-10-25] MEDS ORDERED: AZIT250T12 PO (15:39)
[2020-10-25] MEDS ORDERED: CHOL500044 PO (15:41)
--- NOTE | 2020-10-25 15:41 | NUR ---
SPOKE WITH PT (SHE HAS MOST HOME MEDS WITH HER) AND WENT THRU THE EXT MED HISTORY TO COMPLETE THE MED REC ENALAPRIL 20MG- DIRECTIONS SHOW 1 TAB DAILY HOWEVER PT IS TAKING TAB (10MG) BID PT GETS VITAMIN D3 125MCG FILLED A PRESCRIPTION, LAST FILL DATE 09-26-2020 #30/30DS OTC MEDS: GAS X ASPIRIN 325MG MUCINEX DM SALINE NASAL SPRAY AFRIN BENADRYL PT DOES NOT HAVE ONDANSETRON ODT OR AZITHROMYCIN WITH HER
[2020-10-25] MEDS ORDERED: RT-ALBUTEROL/IPRATROPIUM 3 ML (DUONEB) VIAL INH PRN (16:00)
[2020-10-25] MEDS ORDERED: SALINE NASAL SPRAY (OCEAN) 45 ML BTL NS PRN (17:15)
[2020-10-25] MEDS ORDERED: amLODIPine 10 MG (NORVASC) TAB PO ONE (17:30)
[2020-10-25] MEDS ORDERED: SIMETHICONE 80 MG (MYLICON) CHEW PO PRN (18:00)
[2020-10-25] MEDS ORDERED: diphenhydrAMINE 25 MG TAB (BENADRYL) PO PRN (18:00)
[2020-10-25] MEDS ORDERED: LORATADINE (CLARITIN) 10 MG TAB PO PRN (18:00)
[2020-10-25] MEDS: ADVAIR HFA 115/21 MCG INHALER 8 GM IH SCH (19:12)
[2020-10-25] MEDS: DOCUSATE SODIUM 100 MG (COLACE) CAP PO SCH (19:54)
[2020-10-25] MEDS: cloNIDine 0.1 MG (CATAPRES) TAB PO SCH (19:54)
[2020-10-25] MEDS: FLUTICASONE NASAL SPRAY (FLONASE) 16 GM BTL NS SCH (19:54)
[2020-10-25] MEDS: MELATONIN 3 MG TABLET PO SCH (19:55)
[2020-10-25] MEDS: ATENOLOL 50 MG (TENORMIN) TAB PO SCH (19:55)
[2020-10-25] MEDS: SIMETHICONE 80 MG (MYLICON) CHEW PO PRN (19:55)
[2020-10-25] MEDS: ENALAPRIL 10 MG (VASOTEC) TAB PO SCH (19:55)
[2020-10-25 19:59] VITALS: BP 141/89
[2020-10-25] MEDS: ENOXAPARIN 40 MG/0.4 ML (LOVENOX) SYR SQ SCH (21:19)
[2020-10-26 00:22] VITALS: BP 133/65
[2020-10-26] MEDS: RT-ALBUTEROL/IPRATROPIUM 3 ML (DUONEB) VIAL INH SCH ×7 (00:25→21:50)
[2020-10-26 04:30] VITALS: BP 166/77
[2020-10-26 05:57] LABS: BASOPHILS % (AUTO) 0 % (0-10); EOSINOPHILS % (AUTO) 0 % (0-10); HEMATOCRIT 38 % (35-52); HEMOGLOBIN 12.2 g/dL (11.5-16.0); LYMPHOCYTES % (AUTO) 11 % (12-44); MEAN CORPUSCULAR HEMOGLOBIN 29 pg (25-34); MEAN CORPUSCULAR HGB CONC 32 g/dL (32-36); MEAN CORPUSCULAR VOLUME 91 fL (80-99); MEAN PLATELET VOLUME 8.6 fL (9.0-12.2); MONOCYTES # (AUTO) 0.2 10^3/uL (0.0-1.0); MONOCYTES % (AUTO) 2 % (0-12); NEUTROPHILS # (AUTO) 7.9 10^3/uL (1.8-7.8); NEUTROPHILS % (AUTO) 85 % (42-75); PLATELET COUNT 206 10^3/uL (130-400); WHITE BLOOD COUNT 9.2 10^3/uL (4.3-11.0)
[2020-10-26 06:05] LABS: ALBUMIN 3.7 GM/DL (3.2-4.5)
[2020-10-26 06:06] LABS: CHLORIDE 95 MMOL/L (98-107); POTASSIUM 4.2 MMOL/L (3.6-5.0); SODIUM 140 MMOL/L (135-145)
[2020-10-26 06:07] LABS: CALCIUM 8.8 MG/DL (8.5-10.1)
[2020-10-26 06:08] LABS: GLUCOSE 187 MG/DL (70-105); TOTAL PROTEIN 6.7 GM/DL (6.4-8.2)
[2020-10-26 06:09] LABS: CARBON DIOXIDE 35 MMOL/L (21-32)
[2020-10-26 06:10] LABS: BILIRUBIN,TOTAL 0.2 MG/DL (0.1-1.0)
[2020-10-26 06:11] LABS: ALKALINE PHOSPHATASE 51 U/L (40-136)
[2020-10-26 06:12] LABS: CREATININE SERUM 0.67 MG/DL (0.60-1.30); GFR ESTIMATED > 60
[2020-10-26 06:13] LABS: BUN/CREATININE RATIO 12
[2020-10-26 06:15] LABS: ALANINE AMINOTRANSFERASE 21 U/L (0-55)
[2020-10-26] MEDS: KETOROLAC 15 MG/ML VIAL IVP PRN ×3 (06:26→20:48)
[2020-10-26] MEDS: methylPREDNISolone 40 MG/ML (Solu-MEDROL) VIAL IV SCH ×2 (06:26→12:24)
[2020-10-26] MEDS: ALPRAZolam 0.5 MG (XANAX) TAB PO PRN ×3 (06:26→20:47)
[2020-10-26] MEDS: ADVAIR HFA 115/21 MCG INHALER 8 GM IH SCH ×2 (07:25→18:37)
[2020-10-26] MEDS ORDERED: guaiFENesin/DM (ROBITUSSIN DM) 10 ML UDC PO PRN (07:45)
--- NOTE | 2020-10-26 07:52 | Progress Note ---
Subjective Subjective Date Seen by Provider: Oct 26, 2020 Time Seen by Provider: 07:15 Pt was seen and examined this morning. She was sitting up in bed drinking her coffee when I entered the room. Pt stated that she is very fatigued. Pt also denied SOB or dyspnea, is having decreased coughing, and is having a lot of gas that makes her feel nauseated. At night she is on 4L supplemental O2 and was currently on 2L this morning. Pt stated concern for dysphagia. She stated that she has dealt with this in the past and feels like food in getting caught in her throat on occasion. It has caused her to vomit in the past, but not recently. Review of Systems General: Fatigue Pulmonary: Dyspnea, Cough (improving) Gastrointestinal: Nausea, Other (dysphagia) All Other Systems Reviewed All Other Systems Reviewed: Yes Objective Exam Vital Signs Vital Signs - First Documented 10/25/20 10/25/20 07:55 12:30 Temp 36.2 Pulse 81 Resp 24 B/P (MAP) 177/103 (127) Pulse Ox 94 O2 Delivery Nasal Cannula O2 Flow Rate 2.00 FiO2 28 Capillary Refill : Less Than 3 Seconds General Appearance: No Apparent Distress, Obese Respiratory: No Accessory Muscle Use, No Respiratory Distress, Wheezing Cardiovascular: Regular Rate, Rhythm, No Gallop, No Murmur, Normal Peripheral Pulses Gastrointestinal: Normal Bowel Sounds, No Organomegaly, No Pulsatile Mass, Non Tender, Soft Extremity: Normal Range of Motion, Non Tender, No Calf Tenderness, Pedal Edema (mildly on right extremity ) Neurologic/Psychiatric: Alert, Oriented x3, Normal Mood/Affect Skin: Normal Color, Warm/Dry, Other (dry and peeling) Results Lab Laboratory Tests 10/25/20 08:00: White Blood Count 11.4H, Red Blood Count 4.88, Hemoglobin 14.2, Hematocrit 46, Mean Corpuscular Volume 94, Mean Corpuscular Hemoglobin 29, Mean Corpuscular Hemoglobin Concent 31L, Red Cell Distribution Width 13.2, Platelet Count 249, Mean Platelet Volume 8.7L, Immature Granulocyte % (Auto) 1, Neutrophils (%) (Auto) 67, Lymphocytes (%) (Auto) 23, Monocytes (%) (Auto) 9, Eosinophils (%) (Auto) 1, Basophils (%) (Auto) 0, Neutrophils # (Auto) 7.6, Lymphocytes # (Auto) 2.7, Monocytes # (Auto) 1.0, Eosinophils # (Auto) 0.1, Basophils # (Auto) 0.0, Immature Granulocyte # (Auto) 0.1, Sodium Level 139, Potassium Level 3.7, Chloride Level 92L, Carbon Dioxide Level 36H, Anion Gap 11, Blood Urea Nitrogen 8, Creatinine 0.81, Estimat Glomerular Filtration Rate > 60, BUN/Creatinine Ratio 10, Glucose Level 151H, Calcium Level 9.5, Corrected Calcium 9.2, Magnesium Level 1.9, Total Bilirubin 0.2, Aspartate Amino Transf (AST/SGOT) 23, Alanine Aminotransferase (ALT/SGPT) 22, Alkaline Phosphatase 66, Total Protein 8.4H, Albumin 4.4 10/25/20 08:15: Blood Gas Puncture Site LEFT WRIST, Blood Gas Patient Temperature 36.2, Arterial Blood pH 7.38, Arterial Blood Partial Pressure CO2 67H, Arterial Blood Partial Pressure O2 65L, Arterial Blood HCO3 39H, Arterial Blood Total CO2 40.8H, Arterial Blood Oxygen Saturation 92L, Arterial Blood Base Excess 12.9H, Ac Test POSITIVE, Blood Gas Ventilator Setting NO, Blood Gas Inspired Oxygen 2 L 10/26/20 05:41: White Blood Count 9.2, Red Blood Count 4.21, Hemoglobin 12.2, Hematocrit 38, Mean Corpuscular Volume 91, Mean Corpuscular Hemoglobin 29, Mean Corpuscular Hemoglobin Concent 32, Red Cell Distribution Width 12.7, Platelet Count 206, Mean Platelet Volume 8.6L, Immature Granulocyte % (Auto) 1, Neutrophils (%) (Auto) 85H, Lymphocytes (%) (Auto) 11L, Monocytes (%) (Auto) 2, Eosinophils (%) (Auto) 0, Basophils (%) (Auto) 0, Neutrophils # (Auto) 7.9H, Lymphocytes # (Auto) 1.0, Monocytes # (Auto) 0.2, Eosinophils # (Auto) 0.0, Basophils # (Auto) 0.0, Immature Granulocyte # (Auto) 0.1, Sodium Level 140, Potassium Level 4.2, Chloride Level 95L, Carbon Dioxide Level 35H, Anion Gap 10, Blood Urea Nitrogen 8, Creatinine 0.67, Estimat Glomerular Filtration Rate > 60, BUN/Creatinine Ratio 12, Glucose Level 187H, Calcium Level 8.8, Corrected Calcium 9.0, Total Bilirubin 0.2, Aspartate Amino Transf (AST/SGOT) 19, Alanine Aminotransferase (ALT/SGPT) 21, Alkaline Phosphatase 51, Total Protein 6.7, Albumin 3.7 Assessment/Plan Assessment/Plan Assessment and Plan Assessment: COPD exacerbation fatigue dysphagia dry skin Plan: continue supplemental O2 and breathing treatments possible EGD consult Problems: (1) COPD with acute exacerbation Assessment & Plan: Change to oral prednisone, continue azithromycin and breathing treatments, possible d/c tomorrow (2) Hypertension Qualifiers: Qualified Codes: I10 - Essential (primary) hypertension (3) Chronic abdominal pain (4) Anxiety (5) Leukocytosis Assessment & Plan: Likely steroid induced (6) DVT prophylaxis Assessment & Plan: Enoxaparin Supervisory-Addendum Brief Verification & Attestation Participated in pt care: history, MDM, physical Personally performed: exam, history, MDM, supervision of care Care discussed with: Medical Student Procedures: n/a I personally saw and obtained my own history and did my own exam, see my exam and problem list for my assessment and plan. Agree with history as documented by medical student. FRANCY PASTRANA MED STUDENT Oct 26, 2020 07:52 ZANA RODRIGUEZ MD Oct 26, 2020 14:24
[2020-10-26 08:00] VITALS: BP 156/68
[2020-10-26] MEDS: AZITHROMYCIN 250 MG TAB (ZITHROMAX) PO SCH (08:06)
[2020-10-26] MEDS: amLODIPine 10 MG (NORVASC) TAB PO SCH (08:06)
[2020-10-26] MEDS: DOCUSATE SODIUM 100 MG (COLACE) CAP PO SCH ×2 (08:06→20:32)
[2020-10-26] MEDS: cloNIDine 0.1 MG (CATAPRES) TAB PO SCH ×3 (08:06→20:32)
[2020-10-26] MEDS: PANTOPRAZOLE 20 MG TABLET (PROTONIX) PO SCH (08:07)
[2020-10-26] MEDS: FOLIC ACID 1 MG TAB PO SCH (08:07)
[2020-10-26] MEDS: eZETimibe 10 MG (ZETIA) TABLET PO SCH (08:07)
[2020-10-26] MEDS: ASPIRIN E.C. 325 MG (ECOTRIN) TABLET PO SCH (08:07)
[2020-10-26] MEDS: ENALAPRIL 10 MG (VASOTEC) TAB PO SCH ×2 (08:07→20:32)
[2020-10-26] MEDS: ONDANSETRON 4 MG/2 ML (SDV) Z0FRAN IV PRN ×4 (08:08→21:57)
[2020-10-26] MEDS: FLUTICASONE NASAL SPRAY (FLONASE) 16 GM BTL NS SCH ×2 (08:14→21:57)
--- NOTE | 2020-10-26 10:43 | NUR ---
"RD ASSESSMENT PMHx: COPD; HTN; osteoarthritis; IBS (pt stated) PT INTERACTION: Pt was awake and pleasant during nutrition consult for MST score. Pt states current appetite is poor. Note avg PO intake 38% x2meal, per chart review. Pt states following the DASH diet at home, and has some issues with swallowing food. Pt states recent issues with nausea, vomiting, constipation, and diarrhea, and that her last BM was 2. Note pt currently on bowel regimen of colace BID, per chart review. Pt states recent wt changes as going up and down. Note no recent wt changes in the past 6mon, per chart review. Given PO intake and wt hx, pt is not at risk for malnutrition at this time. Est. kcal needs: 7941-3473 kcal | 15-20 kcal/kg Est. Pro needs: 78-97 g Pro | 0.8-1.0 g Pro/kg PES STATEMENT: Inadequate oral intake (NI-2.1) related to loss of appetite, nausea, vomiting, constipation, and diarrhea, as evidenced by pt interview and avg PO intake 38% x2meal. INTERVENTION: Continue with current diet order of Regular diet. Recommend swallow evaluation to determine appropriate diet restrictions. Discussed with pt about nutrition supplementation and pt declined, stating she did not like the flavor/consistency of the supplements we provide. Encouraged pt to eat when able. Will continue to follow and reassess as pt needs, intake, and status change. Avila MARSHALL MS RD LD [phone] cell"
[2020-10-26 12:00] VITALS: BP 176/77
[2020-10-26] MEDS: LACTATED RINGERS 1,000 ML IV SCH (12:29)
--- NOTE | 2020-10-26 15:49 | NUR ---
Follow up visit by Account Manager Employee Benefits Laura. Offered active listening for expressed anxiety over anticipation of her daughter visiting today. Pt is non-denomination with a [employer] background. Estranged from former spiritual affiliation, however continues to demonstrate alverto in God. Pt welcomed prayer.
[2020-10-26 16:26] VITALS: BP 148/76
--- NOTE | 2020-10-26 17:00 | NUR ---
EXCORIATED UNDER BREAST, DR RODRIGUEZ NOTIFIED AND ORDER GIVEN FOR NYSTATIN POWDER.
[2020-10-26] MEDS: SIMETHICONE 80 MG (MYLICON) CHEW PO PRN (17:10)
[2020-10-26] MEDS: predniSONE 10 MG TAB PO SCH (17:14)
[2020-10-26] MEDS ORDERED: polyethylene glycoL POWDER 17 GM (MIRALAX) PACK PO PRN (17:45)
[2020-10-26 20:00] VITALS: BP 175/79
--- NOTE | 2020-10-26 20:30 | NUR ---
wasted xanax with PEDRO friedman, due to fragmented pill related to packaging.
[2020-10-26] MEDS: ATENOLOL 50 MG (TENORMIN) TAB PO SCH (20:31)
[2020-10-26] MEDS: ENOXAPARIN 40 MG/0.4 ML (LOVENOX) SYR SQ SCH (20:31)
[2020-10-26] MEDS: MELATONIN 3 MG TABLET PO SCH (20:31)
[2020-10-26] MEDS: CYCLOBENZAPRINE 10 MG (FLEXERIL) TAB PO PRN (20:33)
[2020-10-26] MEDS: MICONAZOLE 2% POWDER (DESENEX AF) 90 GM TOP SCH (21:57)
[2020-10-27 00:23] VITALS: BP 134/60
[2020-10-27] MEDS: RT-ALBUTEROL/IPRATROPIUM 3 ML (DUONEB) VIAL INH SCH ×3 (01:35→11:04)
[2020-10-27] MEDS: LACTATED RINGERS 1,000 ML IV SCH (02:00)
[2020-10-27 04:00] VITALS: BP 163/65
[2020-10-27] MEDS: SIMETHICONE 80 MG (MYLICON) CHEW PO PRN (04:15)
[2020-10-27] MEDS: ONDANSETRON 4 MG/2 ML (SDV) Z0FRAN IV PRN (04:18)
[2020-10-27] MEDS: ALPRAZolam 0.5 MG (XANAX) TAB PO PRN (04:39)
[2020-10-27] MEDS: KETOROLAC 15 MG/ML VIAL IVP PRN (04:39)
[2020-10-27] MEDS: predniSONE 10 MG TAB PO SCH (06:45)
[2020-10-27] MEDS: ADVAIR HFA 115/21 MCG INHALER 8 GM IH SCH (06:57)
[2020-10-27 08:00] VITALS: BP 176/79
[2020-10-27] MEDS: amLODIPine 10 MG (NORVASC) TAB PO SCH (09:14)
[2020-10-27] MEDS: PANTOPRAZOLE 20 MG TABLET (PROTONIX) PO SCH (09:14)
[2020-10-27] MEDS: ASPIRIN E.C. 325 MG (ECOTRIN) TABLET PO SCH (09:14)
[2020-10-27] MEDS: cloNIDine 0.1 MG (CATAPRES) TAB PO SCH (09:14)
[2020-10-27] MEDS: eZETimibe 10 MG (ZETIA) TABLET PO SCH (09:14)
[2020-10-27] MEDS: AZITHROMYCIN 250 MG TAB (ZITHROMAX) PO SCH (09:14)
[2020-10-27] MEDS: DOCUSATE SODIUM 100 MG (COLACE) CAP PO SCH (09:14)
[2020-10-27] MEDS: FOLIC ACID 1 MG TAB PO SCH (09:14)
[2020-10-27] MEDS: ENALAPRIL 10 MG (VASOTEC) TAB PO SCH (09:14)
[2020-10-27] MEDS: FLUTICASONE NASAL SPRAY (FLONASE) 16 GM BTL NS SCH (09:16)
[2020-10-27] MEDS: MICONAZOLE 2% POWDER (DESENEX AF) 90 GM TOP SCH (09:17)
--- NOTE | 2020-10-27 10:15 | NUR ---
visited and giorgiod w/ pt.
[2020-10-27] MEDS ORDERED: PRD10T PO (10:33)
--- NOTE | 2020-10-27 10:34 | Discharge Summary ---
Discharge Summary Hospital Course Problems Reviewed?: Yes Problems/Diagnosis: (1) COPD with acute exacerbation Status: Resolved Assessment & Plan: Hypoxic and hypercapneic, requiring supplemental oxygen above baseline, not tolerating outpatient oral prednisone well. Solumedrol, azithromycin, duonebs and home LABA/ICS. 2/4 normally on supplemental oxygen at home at night, requires continuous O2 on discharge which was ordered. Prednisone taper, complete azithromycin already prescribed. (2) Leukocytosis Status: Acute Assessment & Plan: Very mild, no other signs of acute bacterial infection. Suspect steroid effect. (3) Hypertension Status: Chronic Assessment & Plan: Resume home medications Qualifiers: Qualified Codes: I10 - Essential (primary) hypertension (4) Anxiety Status: Chronic Assessment & Plan: Resume home alprazolam Hospital Course Date of Admission: Oct 25, 2020 at 09:12 Admission Diagnosis : Family Physician/Provider: Kaitlin Turner MD Date of Discharge: 10/27/20 Discharge Diagnosis: See problem list Hospital Course: See problem list Labs and Pending Lab Test: Home Meds Active Reported Vitamin D3 (Cholecalciferol (Vitamin D3)) 125 Mcg Tablet 125 Mcg PO DAILY Azithromycin 250 Mg Tablet 250 Mg PO DAILY FILLED 10-24-2020 #6/5 DAY SUPPLY Mucinex Dm ER 600-30 mg Tablet (Guaifenesin/Dextromethorphan) 1 Each Tab.er.12h 1-2 Each PO Q12H PRN Saline Nasal [place] (Sodium Chloride) 30 Ml [place] 2 Sprays NSEACH PRN PRN Afrin (Oxymetazoline HCl) 15 Ml Mist 2-3 Sprays NSEACH Q12H PRN Benadryl (Diphenhydramine HCl) 25 Mg Capsule 25 Mg PO Q6H PRN Omeprazole 20 Mg Capsule.dr 20 Mg PO DAILY Folic Acid 1 Mg Tablet 1 Mg PO DAILY Ezetimibe 10 Mg Tablet 10 Mg PO DAILY [place]-3 Fish Oil 1,000 mg Sftg ([place]-3/Dha/Epa/Fish Oil) 1 Each Capsule 1 Ea PO TID Stool Softener (Docusate Sodium) 100 Mg Capsule 100 Mg PO BID Fluticasone-Salmeterol 500-50 (Fluticasone Propion/Salmeterol) 1 Each Blst.w.dev 1 Puff INH Q12H Ondansetron Odt (Ondansetron) 4 Mg Tab.rapdis 4 Mg PO DAILY Prednisone 20 Mg Tab 40 Mg PO DAILY TAKES 2 (20MG) TABS FILLED 10-24-2020 #10/5 DAY SUPPLY Enalapril Maleate 20 Mg Tablet 10 Mg PO BID TAKES OF A 20MG TAB Amlodipine Besylate 10 Mg Tablet 10 Mg PO DAILY Atenolol 50 Mg Tablet 50 Mg PO HS Clonidine HCl 0.1 Mg Tablet 0.1 Mg PO TID Gas-X (Simethicone) 125 Mg Tab.chew 2 Tab PO BID PRN Aspirin EC (Aspirin) 325 Mg Tablet.dr 325 Mg PO DAILY Albuterol Sulfate 2.5 Mg/3 Ml Vial.neb 2.5 Mg NEB Q4H PRN Proair Hfa (Albuterol Sulfate) 1 Puff Puff 2 Puff INH QID PRN Fluticasone Propionate 16 Gm [place].susp 1 [place] NSEACH BID Cetirizine HCl 10 Mg Tablet 10 Mg PO DAILY PRN Alprazolam 0.5 Mg Tablet 0.5 Mg PO TID PRN Assessment/Pt DC Instructions Follow up with Dr. Turner after discharge and discuss your difficulty swallowing. Discharge Diet: No Restrictions Activity as Tolerated: Yes Discharge Physical Examination Allergies: Coded Allergies: buspirone HCl (Verified Allergy, Unknown, 10/11/18) etodolac (Verified Allergy, Unknown, 10/11/18) trazodone (Verified Allergy, Unknown, 10/25/20) Neuromuscular Blockers, Steroidal (Verified Adverse Reaction, Unknown, 10/11/18) gabapentin (Verified Adverse Reaction, Unknown, 10/11/18) General Appearance: No Apparent Distress, Obese Respiratory: Decreased Breath Sounds Cardiovascular: Regular Rate, Rhythm, No Murmur Extremity: Other (trace edema in lower legs) Skin: Normal Color, Warm/Dry Neurologic/Psychiatric: Alert, Normal Mood/Affect Copy Copies To 1: KAITLIN TURNER MD, BETHANY N MD Oct 27, 2020 10:34
--- NOTE | 2020-10-27 11:00 | NUR ---
IV DC'D. SITE CLEAR.
--- NOTE | 2020-10-27 11:15 | NUR ---
pt was turned to room air for 15 mintues. pt desaturated to 885. pt was then placed on 2l. pt came up to 93%. pt will need 2L CONTINUOUSLY Addendum: 10/27/20 at 1116 by HERMILO PELAEZ RT Amended: Links added.
[2020-10-27] MEDS: CYCLOBENZAPRINE 10 MG (FLEXERIL) TAB PO PRN (11:18)
--- NOTE | 2020-10-27 11:20 | NUR ---
FLU VAC GIVEN PER PT REQUEST. FLEXERIL 0.5 PER PT REQUEST.
--- NOTE | 2020-10-27 11:34 | NUR ---
CM/SS: Visited with pt as per plan for discharge - pt reports that she has her oxygen from [facility]. Plan: Pt will return home with her [facility] - in place. Pt has 23 hours and sleep support. Summary: Updated oxygen information is sent to [facility]. Pt has family that will be able to take her home from hospital. Family is present in the room. Email sent to [facility] Coordinator updating on the oxygen and that pt would be dismissed today.
--- NOTE | 2020-10-27 11:45 | NUR ---
RX AND INST AND VERBALIZED UNDERSTANDING. DC'D PER WC WITH DTR WITH HOME O2 @ 2L N/C.
== END 2020-10-27 11:45 | disposition home or self-care (01) | DRG 192 ==
LOC: EDUNIT# 07:57 → ER 07:58 → 4TH 09:12
PROVIDERS: ADMIT Family Medicine; ATTEND Family Medicine
DX: J43.9 Emphysema, unspecified (principal); Z99.81 Dependence on supplemental oxygen; F17.210 Nicotine dependence, cigarettes, uncomplicated; F41.9 Anxiety disorder, unspecified; F32.9 Major depressive disorder, single episode, unspecified; G47.30 Sleep apnea, unspecified; I48.91 Unspecified atrial fibrillation; E78.00 Pure hypercholesterolemia, unspecified; Z20.822 Contact with and (suspected) exposure to COVID-19; I10 Essential (primary) hypertension; M19.91 Primary osteoarthritis, unspecified site; K21.9 Gastro-esophageal reflux disease without esophagitis; N39.3 Stress incontinence (female) (male); R13.10 Dysphagia, unspecified; D72.828 Other elevated white blood cell count; Z86.711 Personal history of pulmonary embolism; Z86.718 Personal history of other venous thrombosis and embolism; Z87.01 Personal history of pneumonia (recurrent); Z79.2 Long term (current) use of antibiotics; Z79.82 Long term (current) use of aspirin; Z79.52 Long term (current) use of systemic steroids; Z88.6 Allergy status to analgesic agent; Z80.1 Family history of malignant neoplasm of trachea, bronchus and lung; Z82.49 Family history of ischemic heart disease and other diseases of the circulatory system; Z23 Encounter for immunization; T38.0X5A Adverse effect of glucocorticoids and synthetic analogues, initial encounter
CPT/HCPCS: 36415; 71045; 80053; 82805; 83735; 85025; 90686; 93005; 94640; 94664; 94760; 94761

== ENCOUNTER 2020-10-29 15:26 | Emergency (ER) | payer MEDICAID ==
[~2020-10-29] VITALS: Ht 172.7 cm; Wt 99.7 kg
[~2020-10-29 15:26] MED LIST changes: +DIPH25CA79 PO; +DOCU-238 PO; +EZET10TA49 PO; +FLUT1BLS13 INH; +FOLI1TAB33 PO; +GUAI-367 PO; +OMEG10006 PO; +OMEP20CA18 PO; +OXYM15MI4 NSEACH; +PRD10T PO; +SODI30SP2 NSEACH
--- NOTE | 2020-10-29 15:51 | ED General ---
General Chief Complaint: Glucose Problems Stated Complaint: BLOOD SUGAR 410/SWELLING/BACK PAIN Source of Information: Patient Exam Limitations: No Limitations History of Present Illness Date Seen by Provider: Oct 29, 2020 Time Seen by Provider: 15:40 Initial Comments This is a 55-year-old female with a history of COPD who presents to the ER with complaints of elevated blood sugar and low back pain. States she was discharged in the hospital 2 days ago after being treated for COPD exacerbation. Notes that every time she is given steroids she has high blood sugars. Today she was feeling extremely irritable and was concerned her BG was elevated. States that she borrowed a friends glucometer and checked her blood sugar and it was 410 at home prior to arrival. Also states she feels more fatigued and tired since discharge. Additionally, she reports vaginal burning and itching, which she believes is due to her steroids and antibiotics. Denies fever, chills, nausea/vomiting/diarrhea, abdominal pain. Reports chronic cough from COPD, but is not worse that her normal. Allergies and Home Medications Allergies Coded Allergies: buspirone HCl (Verified Allergy, Unknown, 10/11/18) etodolac (Verified Allergy, Unknown, 10/11/18) trazodone (Verified Allergy, Unknown, 10/25/20) Neuromuscular Blockers, Steroidal (Verified Adverse Reaction, Unknown, 10/11/18) gabapentin (Verified Adverse Reaction, Unknown, 10/11/18) Home Medications Albuterol Sulfate 1 Puff Puff, 2 PUFF INH QID PRN for SHORTNESS OF BREATH, (Reported) Albuterol Sulfate 2.5 Mg/3 Ml Vial.neb, 2.5 MG NEB Q4H PRN for SHORTNESS OF BREATH, (Reported) Alprazolam 0.5 Mg Tablet, 0.5 MG PO TID PRN for ANXIETY, (Reported) Amlodipine Besylate 10 Mg Tablet, 10 MG PO DAILY, (Reported) Aspirin 325 Mg Tablet.dr, 325 MG PO DAILY, (Reported) Atenolol 50 Mg Tablet, 50 MG PO HS, (Reported) Azithromycin 250 Mg Tablet, 250 MG PO DAILY, (Reported) FILLED 10-24-2020 #6/5 DAY SUPPLY Cetirizine HCl 10 Mg Tablet, 10 MG PO DAILY PRN for ALLERGY SYMPTOMS, (Reported) Cholecalciferol (Vitamin D3) 125 Mcg Tablet, 125 MCG PO DAILY, (Reported) Clonidine HCl 0.1 Mg Tablet, 0.1 MG PO TID, (Reported) Diphenhydramine HCl 25 Mg Capsule, 25 MG PO Q6H PRN for ALLERGY SYMPTOMS, (Reported) Docusate Sodium 100 Mg Capsule, 100 MG PO BID, (Reported) Enalapril Maleate 20 Mg Tablet, 10 MG PO BID, (Reported) TAKES OF A 20MG TAB Ezetimibe 10 Mg Tablet, 10 MG PO DAILY, (Reported) Fluticasone Propion/Salmeterol 1 Each Blst.w.dev, 1 PUFF INH Q12H, (Reported) Fluticasone Propionate 16 Gm [place].susp, 1 SPRAY NSEACH BID, (Reported) Folic Acid 1 Mg Tablet, 1 MG PO DAILY, (Reported) Guaifenesin/Dextromethorphan 1 Each Tab.er.12h, 1-2 EACH PO Q12H PRN for COUGH/CONGESTION, (Reported) [place]-3/Dha/Epa/Fish Oil 1 Each Capsule, 1 EA PO TID, (Reported) Omeprazole 20 Mg Capsule.dr, 20 MG PO DAILY, (Reported) Ondansetron 4 Mg Tab.rapdis, 4 MG PO DAILY, (Reported) Oxymetazoline HCl 15 Ml Mist, 2-3 SPRAYS NSEACH Q12H PRN for CONGESTION, (Reported) Prednisone 20 Mg Tab, 40 MG PO DAILY, (Reported) TAKES 2 (20MG) TABS FILLED 10-24-2020 #10/5 DAY SUPPLY Prednisone 10 Mg Tab, 0 PO UD Take 5 tabs(50mg)daily, decrease by 1 tab(10mg) every other day. Prescribed by: ZANA RODRIGUEZ on 10/27/20 1033 Simethicone 125 Mg Tab.chew, 2 TAB PO BID PRN for GAS, (Reported) Sodium Chloride 30 Ml [place], 2 SPRAYS NSEACH PRN PRN for DRY/CONGESTED NOSE, (R eported) Patient Home Medication List Home Medication List Reviewed: Yes Review of Systems Review of Systems Constitutional: see HPI EENTM: see HPI Respiratory: see HPI Cardiovascular: see HPI Gastrointestinal: see HPI Genitourinary: see HPI Musculoskeletal: see HPI Skin: see HPI Psychiatric/Neurological: See HPI Hematologic/Lymphatic: See HPI Immunological/Allergic: see HPI Past [id number] Hx Patient Social History Alcohol Use: Denies Use Smoking Status: Current Everyday Smoker Type Used: Cigarettes 2nd Hand Smoke Exposure: Yes Recent Hopitalizations: No Immunizations Up To Date Tetanus Booster (TDap): Unknown Date of Pneumonia Vaccine: Aug 07, 2018 Date of Influenza Vaccine: Nov 08, 2017 Seasonal Allergies Seasonal Allergies: Yes Past Medical History Surgeries: Yes (pericardial window, c/s x2lung thoracensis) Abdominal, Appendectomy, Cardiac, Section, Gallbladder, Hysterectomy, Oophorectomy Respiratory: Yes Asthma, Pneumonia, Pulmonary Embolism, Sleep Apnea, COPD, Emphysema Currently Using CPAP: No Currently Using BIPAP: No Cardiac: Yes (Pericardial effusion-S/P PERICARDIAL WINDOW 08/2017) Atrial Fibrillation, Chronic Edema/Swelling, Deep Vein Thrombosis, High Cholesterol, Hypertension Neurological: Yes (PSEUDO SEIZURES ) Seizure Disorder 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 Disorders: Yes Female 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 Disorders: Ovarian Cyst ADMIN DIR History: Hysterectomy, 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, Menopausal Genitourinary: No Gastrointestinal: Yes Abdominal Hernia, Gastroesophageal Reflux, Diverticulosis, Hiatal Hernia, Ulcer, Irritable Bowel Musculoskeletal: Yes (CHRONIC KNEE AND HIP PAIN, SPINAL STENOSIS) Degenerate Disk Disease, Osteoporosis, Arthritis, Chronic Back Pain Endocrine: No HEENT: No Cancer: No Psychosocial: Yes Pseudo Seizures, Anxiety, Depression Integumentary: Yes Eczema Blood Disorders: No Adverse Reaction/Blood Tranf: No Family Medical History FH: cirrhosis 19 MOTHER FH: liver cancer 19 MOTHER FHx: lung cancer 19 FATHER Hypertension 19 FATHER 19 MOTHER Physical Exam Vital Signs Vital Signs - First Documented 10/29/20 15:38 Temp 37.0 Pulse 79 Resp 20 B/P (MAP) 144/95 (111) Pulse Ox 99 O2 Delivery Nasal Cannula O2 Flow Rate 2.00 Capillary Refill : Height, Weight, BMI Height: 5'8.00" Weight: 201lbs. 0.8oz. [id number]; 32.78 BMI Method:Stated General Appearance: No Apparent Distress, WD/WN Eyes: Bilateral Eye Normal Inspection, Bilateral Eye PERRL, Bilateral Eye EOMI HEENT: PERRL/EOMI, TMs Normal, Normal ENT Inspection, Pharynx Normal Neck: Full Range of Motion, Normal Inspection, Non Tender Respiratory: Normal Breath Sounds, No Accessory Muscle Use, Decreased Breath Sounds Cardiovascular: Regular Rate, Rhythm, Normal Peripheral Pulses Gastrointestinal: Normal Bowel Sounds, Non Tender, Soft Back: Normal Inspection Extremity: Normal Capillary Refill, Normal Inspection, Normal Range of Motion Neurologic/Psychiatric: Alert, Oriented x3, No Motor/Sensory Deficits, Normal Mood/Affect Skin: Normal Color, Warm/Dry, Other (yeast in bilateral breast folds. ) Progress/Results/Core Measures Suspected Sepsis SIRS Temperature: Pulse: Respiratory Rate: Blood Pressure / Mean: Results/Orders Lab Results Laboratory Tests Test 10/29/20 15:46 10/29/20 16:30 10/29/20 17:23 Range/Units Glucometer 287 H 211 H 70-110 MG/DL Urine Color YELLOW Urine Clarity CLEAR Urine pH 6.5 5-9 Urine Specific [place] 1.015 L 1.016-1.022 Urine Protein TRACE H NEGATIVE Urine Glucose (UA) TRACE H NEGATIVE Urine Ketones TRACE H NEGATIVE Urine Nitrite NEGATIVE NEGATIVE Urine Bilirubin NEGATIVE NEGATIVE Urine Urobilinogen 0.2 < = 1.0 MG/DL Urine Leukocyte Esterase NEGATIVE NEGATIVE Urine RBC (Auto) NEGATIVE NEGATIVE Urine RBC NONE /HPF Urine WBC RARE /HPF Urine Squamous Epithelial Cells 2-5 /HPF Urine Crystals NONE /LPF Urine Bacteria TRACE /HPF Urine Casts NONE /LPF Urine Hyaline Casts RARE /LPF Urine Mucus SMALL H /LPF Urine Culture Indicated NO My Orders Orders - JIM SCHROEDER APRN Ua Culture If Indicated (10/29/20 15:44) Fluconazole Tablet (Ed Only) (Diflucan T (10/29/20 17:15) Accucheck Stat ONCE (10/29/20 17:20) Medications Given in ED Current Medications Medications Dose Ordered Sig/Tino Route Start Time Stop Time Status Last Admin Dose Admin Fluconazole 150 mg ONCE ONCE PO 10/29/20 17:15 10/29/20 17:16 DC 10/29/20 17:26 150 MG Vital Signs/I&O 10/29/20 10/29/20 15:38 17:28 Temp 37.0 Pulse 79 72 Resp 20 16 B/P (MAP) 144/95 (111) 148/96 Pulse Ox 99 99 O2 Delivery Nasal Cannula Nasal Cannula O2 Flow Rate 2.00 2.00 Capillary Refill : Progress Note : Progress Note Pt. examined and in no acute distress. VSS. States she was concerned for UTI and her blood sugar because of her steroid use. Orders given to obtain UA. Her POC BG-[id number]. States that she did eat a heavy meal and candy bar shortly before checking her blood glucose. Discussed that she quit smoking 7 days ago, which could also contribute to her irritable mood. UA unremarkable. Discussed monitoring blood glucose at home in the afternoon, at least two hours after eating as she may have steroid induced hyperglycemia. Also discussed reducing the amount of carbs and sugars she eats while taking steroids. Given oral Diflucan 150mg for vaginal burning and itching. States she has taken this in the past without issue. Reviewed discharge plan and she is agreeable with plan. Discharge BG-211. Patient called back to ER after dismissal and states her BG was 187 at home. Departure Impression Primary Impression: Hyperglycemia Additional Impression: Vaginal candidiasis Disposition: HOME, SELF-CARE Condition: Improved Departure-Patient Inst. Decision time for Depature: 16:59 Referrals: KAITLIN TURNER MD (PCP/Family) Primary Care Physician Patient Instructions: Hyperglycemia, Adult Add. Discharge Instructions: Plan: 1. Discharge home. 2. Reduce the amount of carbohydrates and sugars you eat while taking steroids. 3. Rinse your mouth out with water or mouth rinse after using oral inhalers. 4. Continue your home medications as directed. 5. Follow up with your primary care doctor on Saturday, keep track of your blood sugars to take to appointment with you. 6. Check your blood glucose at least two hours after eating. 7. Return to ER with any new or concerning symptoms. All discharge instructions reviewed with patient and/or family. Voiced understanding. JIM SCHROEDER APRN Oct 29, 2020 15:51
[2020-10-29 16:37] LABS: BILIRUBIN,URINE NEGATIVE (NEGATIVE); CLARITY,URINE CLEAR; COLOR,URINE YELLOW; GLUCOSE, URINE (UA) TRACE (NEGATIVE); KETONES,URINE TRACE (NEGATIVE); LEUKOCYTE ESTERASE ,URINE NEGATIVE (NEGATIVE); NITRITE,URINE NEGATIVE (NEGATIVE); PH,URINE 6.5 (5-9); PROTEIN,URINE TRACE (NEGATIVE)
[2020-10-29 16:45] LABS: BACTERIA,URINE TRACE /HPF; WBC,URINE RARE /HPF
[2020-10-29 16:46] LABS: HYALINE CASTS, URINE RARE /LPF
[2020-10-29] MEDS ORDERED: FLUCONAZOLE 150 MG TABLET (ED ONLY) PO ONE (17:15)
[2020-10-29 17:28] VITALS: BP 148/96
[2020-11-02] MEDS ORDERED: PANT40TA2 PO (11:10)
[2020-11-02] MEDS ORDERED: NYST1000 PO (11:10)
[2020-11-02] MEDS ORDERED: DICY10CA12 PO (11:10)
[2020-11-02] MEDS ORDERED: PRD20T PO (11:10)
== END 2020-10-29 17:28 | disposition home or self-care (01) ==
LOC: EDUNIT# 15:26 → ER 15:27
DX: R73.9 Hyperglycemia, unspecified (principal); B37.3 Candidiasis of vulva and vagina; I10 Essential (primary) hypertension; J44.9 Chronic obstructive pulmonary disease, unspecified; F41.9 Anxiety disorder, unspecified; F32.9 Major depressive disorder, single episode, unspecified; K21.9 Gastro-esophageal reflux disease without esophagitis; M81.0 Age-related osteoporosis without current pathological fracture; F17.210 Nicotine dependence, cigarettes, uncomplicated; Z86.711 Personal history of pulmonary embolism; Z88.8 Allergy status to other drugs, medicaments and biological substances; Z88.6 Allergy status to analgesic agent; Z79.82 Long term (current) use of aspirin; Z79.51 Long term (current) use of inhaled steroids
CPT/HCPCS: 81000; 82962

== ENCOUNTER 2020-10-31 15:01 | Observation (INO) | payer MEDICAID ==
[~2020-10-31] VITALS: Ht 173.9 cm; Wt 103.6 kg
[~2020-10-31 15:01] MED LIST changes: -LISI-552 PO; +LISI20TA26 PO
--- NOTE | 2020-10-31 15:23 | ED General ---
General Chief Complaint: General Problems/Pain Stated Complaint: SOB Nursing Triage Note: Pt to ED in wheelchair with multiple complaints. Pt c/o gas pain, neck pain, filling with fluid and just not feeling well. Pt reports having a telehealth visit with Dr. Kaitlin Turner and Dr Turner sent pt to ED because pt did not look well. Nursing Sepsis Screen: No Definite Risk Source of Information: Patient Exam Limitations: No Limitations History of Present Illness Date Seen by Provider: Oct 31, 2020 Time Seen by Provider: 15:21 Initial Comments To ER from [facility] with c/o gas pain, neck pain, anxiety, building up with fluid. Is on steroid for COPD exacerbation. Wears O2 at night but has recently been wearing it during the day due to the current exacerbation. No fevers. States that she will frequently awaken at night gasping for air. Timing/Duration: 1-2 Days Severity: Moderate Associated Systoms: Weakness Allergies and Home Medications Allergies Coded Allergies: buspirone HCl (Verified Allergy, Unknown, 10/11/18) etodolac (Verified Allergy, Unknown, 10/11/18) trazodone (Verified Allergy, Unknown, 10/25/20) Neuromuscular Blockers, Steroidal (Verified Adverse Reaction, Unknown, 10/11/18) gabapentin (Verified Adverse Reaction, Unknown, 10/11/18) Home Medications Albuterol Sulfate 1 Puff Puff, 2 PUFF INH QID PRN for SHORTNESS OF BREATH, (Reported) Albuterol Sulfate 2.5 Mg/3 Ml Vial.neb, 2.5 MG NEB Q4H PRN for SHORTNESS OF BREATH, (Reported) Alprazolam 0.5 Mg Tablet, 0.5 MG PO TID PRN for ANXIETY, (Reported) Amlodipine Besylate 10 Mg Tablet, 10 MG PO DAILY, (Reported) Aspirin 325 Mg Tablet.dr, 325 MG PO DAILY, (Reported) Atenolol 50 Mg Tablet, 50 MG PO HS, (Reported) Azithromycin 250 Mg Tablet, 250 MG PO DAILY, (Reported) FILLED 10-24-2020 #6/5 DAY SUPPLY Cetirizine HCl 10 Mg Tablet, 10 MG PO DAILY PRN for ALLERGY SYMPTOMS, (Reported) Cholecalciferol (Vitamin D3) 125 Mcg Tablet, 125 MCG PO DAILY, (Reported) Clonidine HCl 0.1 Mg Tablet, 0.1 MG PO TID, (Reported) Diphenhydramine HCl 25 Mg Capsule, 25 MG PO Q6H PRN for ALLERGY SYMPTOMS, (Reported) Docusate Sodium 100 Mg Capsule, 100 MG PO BID, (Reported) Enalapril Maleate 20 Mg Tablet, 10 MG PO BID, (Reported) TAKES OF A 20MG TAB Ezetimibe 10 Mg Tablet, 10 MG PO DAILY, (Reported) Fluticasone Propion/Salmeterol 1 Each Blst.w.dev, 1 PUFF INH Q12H, (Reported) Fluticasone Propionate 16 Gm [place].susp, 1 SPRAY NSEACH BID, (Reported) Folic Acid 1 Mg Tablet, 1 MG PO DAILY, (Reported) Guaifenesin/Dextromethorphan 1 Each Tab.er.12h, 1-2 EACH PO Q12H PRN for COUGH/CONGESTION, (Reported) [place]-3/Dha/Epa/Fish Oil 1 Each Capsule, 1 EA PO TID, (Reported) Omeprazole 20 Mg Capsule.dr, 20 MG PO DAILY, (Reported) Ondansetron 4 Mg Tab.rapdis, 4 MG PO DAILY, (Reported) Oxymetazoline HCl 15 Ml Mist, 2-3 SPRAYS NSEACH Q12H PRN for CONGESTION, (Reported) Prednisone 20 Mg Tab, 40 MG PO DAILY, (Reported) TAKES 2 (20MG) TABS FILLED 10-24-2020 #10/5 DAY SUPPLY Prednisone 10 Mg Tab, 0 PO UD Take 5 tabs(50mg)daily, decrease by 1 tab(10mg) every other day. Prescribed by: ZANA RODRIGUEZ on 10/27/20 1033 Simethicone 125 Mg Tab.chew, 2 TAB PO BID PRN for GAS, (Reported) Sodium Chloride 30 Ml [place], 2 SPRAYS NSEACH PRN PRN for DRY/CONGESTED NOSE, (Reported) Patient Home Medication List Home Medication List Reviewed: Yes Review of Systems Review of Systems Constitutional: see HPI EENTM: see HPI Respiratory: see HPI, short of breath, wheezing Cardiovascular: no symptoms reported Genitourinary: no symptoms reported Musculoskeletal: no symptoms reported Skin: no symptoms reported Past Dexsplw-Oglitp-Iybotv Hx Patient Social History Alcohol Use: Denies Use Smoking Status: Former Smoker Type Used: Cigarettes Former Smoker, Quit: Oct 23, 2020 2nd Hand Smoke Exposure: Yes Recent Infectious Disease Expo: No Recent Hopitalizations: No Immunizations Up To Date Tetanus Booster (TDap): Unknown Date of Pneumonia Vaccine: Aug 07, 2018 Date of Influenza Vaccine: Nov 08, 2017 Seasonal Allergies Seasonal Allergies: Yes Past Medical History Surgeries: Yes (pericardial window, c/s x2lung thoracensis) Abdominal, Appendectomy, Cardiac, Section, Gallbladder, Hysterectomy, Oophorectomy Respiratory: Yes Asthma, Pneumonia, Pulmonary Embolism, Sleep Apnea, COPD, Emphysema Currently Using CPAP: No Currently Using BIPAP: No Cardiac: Yes (Pericardial effusion-S/P PERICARDIAL WINDOW 08/2017) Atrial Fibrillation, Chronic Edema/Swelling, Deep Vein Thrombosis, High Cholesterol, Hypertension Neurological: Yes (PSEUDO SEIZURES ) Seizure Disorder 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 Disorders: Yes Female 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 Disorders: 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 History: Hysterectomy, 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, Menopausal Genitourinary: No Gastrointestinal: Yes Abdominal Hernia, Gastroesophageal Reflux, Diverticulosis, Hiatal Hernia, Ulcer, Irritable Bowel Musculoskeletal: Yes (CHRONIC KNEE AND HIP PAIN, SPINAL STENOSIS) Degenerate Disk Disease, Osteoporosis, Arthritis, Chronic Back Pain Endocrine: No HEENT: No Cancer: No Psychosocial: Yes Pseudo Seizures, Anxiety, Depression Integumentary: Yes Eczema Blood Disorders: No Adverse Reaction/Blood Tranf: No Family Medical History FH: cirrhosis 19 MOTHER FH: liver cancer 19 MOTHER FHx: lung cancer 19 FATHER Hypertension 19 FATHER 19 MOTHER Physical Exam Vital Signs Vital Signs - First Documented 10/31/20 15:05 Temp 36.7 Pulse 82 Resp 22 B/P (MAP) 177/95 (122) Pulse Ox 98 O2 Delivery Room Air Capillary Refill : Less Than 3 Seconds Height, Weight, BMI Height: 5'8.00" Weight: 201lbs. 0.8oz. 91.971847qm; 32.00 BMI Method:Stated General Appearance: No Apparent Distress, WD/WN, Chronically ill, Other (no distress. 96% on room air. ) Eyes: Bilateral Eye Normal Inspection, Bilateral Eye PERRL Respiratory: No Accessory Muscle Use, No Respiratory Distress Cardiovascular: Regular Rate, Rhythm, Normal Peripheral Pulses Gastrointestinal: Non Tender, Soft Extremity: Normal Capillary Refill, No Calf Tenderness Neurologic/Psychiatric: Alert, Oriented x3 Skin: Normal Color, Warm/Dry Progress/Results/Core Measures Suspected Sepsis Recent Fever Within 48 Hours: No Infection Criteria Present: None New/Unexplained Altered Menta: No Sepsis Screen: No Definite Risk SIRS Temperature: Pulse: 82 Respiratory Rate: 22 Laboratory Tests 10/31/20 15:10: White Blood Count 15.4H Blood Pressure 177 /95 Mean: 122 Laboratory Tests 10/31/20 15:10: Creatinine 0.86, Platelet Count 264, Total Bilirubin 0.2 Results/Orders Lab Results Laboratory Tests Test 10/31/20 15:10 10/31/20 15:15 10/31/20 16:19 Range/Units White Blood Count 15.4 H 4.3-11.0 10^3/uL Red Blood Count 4.75 3.80-5.11 10^6/uL Hemoglobin 14.0 11.5-16.0 g/dL Hematocrit 43 35-52 % Mean Corpuscular Volume 90 80-99 fL Mean Corpuscular Hemoglobin 30 25-34 pg Mean Corpuscular Hemoglobin Concent 33 32-36 g/dL Red Cell Distribution Width 12.8 10.0-14.5 % Platelet Count 264 130-400 10^3/uL Mean Platelet Volume 9.0 9.0-12.2 fL Immature Granulocyte % (Auto) 1 % Neutrophils (%) (Auto) 87 H 42-75 % Lymphocytes (%) (Auto) 8 L 12-44 % Monocytes (%) (Auto) 3 0-12 % Eosinophils (%) (Auto) 0 0-10 % Basophils (%) (Auto) 0 0-10 % Neutrophils # (Auto) 13.4 H 1.8-7.8 10^3/uL Lymphocytes # (Auto) 1.3 1.0-4.0 10^3/uL Monocytes # (Auto) 0.5 0.0-1.0 10^3/uL Eosinophils # (Auto) 0.0 0.0-0.3 10^3/uL Basophils # (Auto) 0.0 0.0-0.1 10^3/uL Immature Granulocyte # (Auto) 0.2 H 0.0-0.1 10^3/uL Neutrophils % (Manual) 88 % Lymphocytes % (Manual) 8 % Monocytes % (Manual) 4 % Eosinophils % (Manual) 0 % Basophils % (Manual) 0 % Band Neutrophils 0 % Blood Morphology Comment NORMAL D-Dimer 0.48 0.00-0.49 UG/ML Sodium Level 136 135-145 MMOL/L Potassium Level 5.0 3.6-5.0 MMOL/L Chloride Level 91 L 98-107 MMOL/L Carbon Dioxide Level 34 H 21-32 MMOL/L Anion Gap 11 5-14 MMOL/L Blood Urea Nitrogen 10 7-18 MG/DL Creatinine 0.86 0.60-1.30 MG/DL Estimat Glomerular Filtration Rate > 60 BUN/Creatinine Ratio 12 Glucose Level 328 H 70-105 MG/DL Calcium Level 9.0 8.5-10.1 MG/DL Corrected Calcium 8.8 8.5-10.1 MG/DL Total Bilirubin 0.2 0.1-1.0 MG/DL Aspartate Amino Transf (AST/SGOT) 12 5-34 U/L Alanine Aminotransferase (ALT/SGPT) 27 0-55 U/L Alkaline Phosphatase 68 40-136 U/L B-Type Natriuretic Peptide 43.2 <100.0 PG/ML Total Protein 7.3 6.4-8.2 GM/DL Albumin 4.2 3.2-4.5 GM/DL Troponin I < 0.028 <0.028 NG/ML Procalcitonin 0.01 <0.10 NG/ML Blood Gas Puncture Site R BRACHIAL Blood Gas Patient Temperature 36.7 Arterial Blood pH 7.44 H 7.37-7.43 Arterial Blood Partial Pressure CO2 56 H 35-45 MMHG Arterial Blood Partial Pressure O2 64 L 79-93 MMHG Arterial Blood HCO3 37 H 23-27 MMOL/L Arterial Blood Total CO2 38.8 H 21.0-31.0 MMOL/L Arterial Blood Oxygen Saturation 92 L 94-100 % Arterial Blood Base Excess 12.1 H -2.5-2.5 MMOL/L Ac Test YES-POS Blood Gas Ventilator Setting NO Blood Gas Inspired Oxygen ROOM AIR My Orders Orders - EREN MCDONALD APRN BNP (10/31/20 15:20) Cbc With Automated Diff (10/31/20 15:20) Comprehensive Metabolic Panel (10/31/20 15:20) Ekg Tracing (10/31/20 15:20) Chest 1 View, Ap/Pa Only (10/31/20 15:20) Ed Iv/Invasive Line Start (10/31/20 15:20) Fibrin Degradation Products (10/31/20 15:20) Lorazepam Injection (Ativan Injection) (10/31/20 15:30) Procalcitonin (Pct) (10/31/20 15:23) Manual Differential (10/31/20 15:10) Troponin I (10/31/20 16:17) Arterial Blood Gas (10/31/20 16:19) Arterial Blood Draw (10/31/20 ) Medications Given in ED Current Medications Medications Dose Ordered Sig/Tino Route Start Time Stop Time Status Last Admin Dose Admin Lorazepam 0.5 mg ONCE PRN IVP 10/31/20 15:30 10/31/20 15:28 0.5 MG Vital Signs/I&O 10/31/20 15:05 Temp 36.7 Pulse 82 Resp 22 B/P (MAP) 177/95 (122) Pulse Ox 98 O2 Delivery Room Air Capillary Refill : Less Than 3 Seconds Blood Pressure Mean: 122 Diagnostic Imaging Diagonstic Imaging: Xray Plain Films/CT/US/NM/MRI: chest Comments NAME: [facility]Z [facility] REC#: [id number] PT STATUS: REG ER : 1965 PHYSICIAN: EREN MCDONALD APRN ADMIT DATE: 10/31/20/ER Draft Date of Exam:10/31/20 CHEST 1 VIEW, AP/PA ONLY INDICATION: Shortness of breath. EXAMINATION: Portable chest at 3:53 PM. FINDINGS: The heart size and pulmonary vascularity are normal. The lungs are clear. There are no effusions or pneumothoraces. IMPRESSION: Negative chest. Dictated on workstation # [id number] Dict: 10/31/20 1554 Trans: 10/31/20 1555 [id number] Interpreted by: OZIEL UHERTA MD Electronically signed by: Departure Communication (Admissions) Time/Spoke to Admitting Phy: 17:07 Impression Primary Impression: COPD with acute exacerbation Additional Impression: Anxiety Disposition: ADMITTED INPATIENT Condition: Stable Admissions Decision to Admit Reason: Admit from ER (General) Decision to Admit/Date: Oct 31, 2020 Time/Decision to Admit Time: 17:07 Departure-Patient Inst. Decision time for Depature: 16:29 Referrals: KAITLIN TURNER MD (PCP/Family) Primary Care Physician Patient Instructions: COPD Exacerbation, Adult ED Add. Discharge Instructions: All discharge instructions reviewed with patient and/or family. Voiced understanding. EREN MCDONALD APRN Oct 31, 2020 15:23
[2020-10-31 15:26] LABS: BASOPHILS % (AUTO) 0 % (0-10); EOSINOPHILS % (AUTO) 0 % (0-10); HEMATOCRIT 43 % (35-52); LYMPHOCYTES # (AUTO) 1.3 10^3/uL (1.0-4.0); LYMPHOCYTES % (AUTO) 8 % (12-44); MEAN CORPUSCULAR HEMOGLOBIN 30 pg (25-34); MEAN CORPUSCULAR HGB CONC 33 g/dL (32-36); MEAN CORPUSCULAR VOLUME 90 fL (80-99); MONOCYTES # (AUTO) 0.5 10^3/uL (0.0-1.0); MONOCYTES % (AUTO) 3 % (0-12); NEUTROPHILS # (AUTO) 13.4 10^3/uL (1.8-7.8); NEUTROPHILS % (AUTO) 87 % (42-75); PLATELET COUNT 264 10^3/uL (130-400); WHITE BLOOD COUNT 15.4 10^3/uL (4.3-11.0)
[2020-10-31 15:30] LABS: ALBUMIN 4.2 GM/DL (3.2-4.5); CHLORIDE 91 MMOL/L (98-107); SODIUM 136 MMOL/L (135-145)
[2020-10-31] MEDS ORDERED: LORazepam INJ 2 MG/ML (ATIVAN) VIAL IVP PRN (15:30)
[2020-10-31 15:32] LABS: GLUCOSE 328 MG/DL (70-105)
[2020-10-31 15:33] LABS: TOTAL PROTEIN 7.3 GM/DL (6.4-8.2)
[2020-10-31 15:34] LABS: CARBON DIOXIDE 34 MMOL/L (21-32)
[2020-10-31 15:35] LABS: BILIRUBIN,TOTAL 0.2 MG/DL (0.1-1.0)
[2020-10-31 15:36] LABS: ALKALINE PHOSPHATASE 68 U/L (40-136); CREATININE SERUM 0.86 MG/DL (0.60-1.30); GFR ESTIMATED > 60
[2020-10-31 15:37] LABS: BUN/CREATININE RATIO 12
[2020-10-31 15:39] LABS: ALANINE AMINOTRANSFERASE 27 U/L (0-55)
[2020-10-31 15:43] LABS: BAND NEUTROPHILS 0 %; BASOPHILS % (MANUAL) 0 %; EOSINOPHILS % (MANUAL) 0 %; LYMPHOCYTES % (MANUAL) 8 %; MONOCYTES % (MANUAL) 4 %; NEUTROPHILS % (MANUAL) 88 %
[2020-10-31 15:44] LABS: RBC MORPH NORMAL
--- NOTE | 2020-10-31 15:55 | Diagnostic Imaging Report ---
INDICATION: Shortness of breath. EXAMINATION: Portable chest at 3:53 PM. FINDINGS: The heart size and pulmonary vascularity are normal. The lungs are clear. There are no effusions or pneumothoraces. IMPRESSION: Negative chest. Dictated by: Dictated on workstation # [id number]
[2020-10-31 16:28] LABS: ABG BASE EXCESS 12.1 MMOL/L (-2.5-2.5); ABG OXYGEN SATURATION 92 % (94-100); ABG PCO2 56 MMHG (35-45); ABG PH 7.44 (7.37-7.43); ABG PO2 64 MMHG (79-93); ABG TCO2 38.8 MMOL/L (21.0-31.0)
[2020-10-31 16:29] LABS: ALLENS TEST YES-POS; INSPIRED O2 ROOM AIR; PATIENT TEMP 36.7; VENTILATOR NO
[2020-10-31] MEDS ORDERED: predniSONE 20 MG TAB PO SCH (18:45)
[2020-10-31] MEDS ORDERED: CATHETER FLUSH 10 ML SYR IV PRN (18:45)
[2020-10-31] MEDS ORDERED: ONDANSETRON 4 MG/2 ML (SDV) Z0FRAN IV PRN (18:45)
[2020-10-31 19:16] VITALS: BP 167/81
[2020-10-31 19:34] VITALS: BP 177/95
[2020-10-31] MEDS: ENOXAPARIN 40 MG/0.4 ML (LOVENOX) SYR SC SCH (19:35)
[2020-10-31] MEDS: DICYCLOMINE 10 MG (BENTYL) CAP PO SCH (19:36)
[2020-10-31] MEDS: NYSTATIN ORAL SUSP 5 ML UDC PO SCH (19:36)
[2020-10-31] MEDS: CATHETER FLUSH 10 ML SYR IV SCH (19:37)
[2020-10-31] MEDS ORDERED: RT-ALBUTEROL/IPRATROPIUM 3 ML (DUONEB) VIAL INH PRN (19:45)
[2020-10-31] MEDS ORDERED: ACETAMINOPHEN 325 MG TABLET PO PRN (20:30)
[2020-10-31] MEDS ORDERED: ONDANSETRON 4 MG/2 ML (SDV) Z0FRAN IVP PRN (20:30)
[2020-10-31] MEDS ORDERED: MELATONIN 3 MG TABLET PO PRN (20:30)
[2020-10-31] MEDS ORDERED: ENOXAPARIN 40 MG/0.4 ML (LOVENOX) SYR SC SCH (20:30)
[2020-10-31] MEDS ORDERED: diphenhydrAMINE 25 MG TAB (BENADRYL) PO PRN (20:30)
[2020-10-31] MEDS ORDERED: DOCUSATE SODIUM 100 MG (COLACE) CAP PO PRN (20:30)
[2020-10-31] MEDS ORDERED: ACETAMINOPHEN 500 MG TAB (TYLENOL) PO PRN (20:30)
[2020-10-31] MEDS ORDERED: LOPERAMIDE 2 MG (IMODIUM) TABLET PO PRN (20:30)
[2020-10-31] MEDS ORDERED: CALCIUM CARBONATE 500 MG (TUMS) TAB.CHEW PO PRN (20:30)
[2020-10-31] MEDS: RT-ALBUTEROL/IPRATROPIUM 3 ML (DUONEB) VIAL INH SCH (21:27)
[2020-10-31] MEDS: polyethylene glycoL POWDER 17 GM (MIRALAX) PACK PO SCH (22:06)
[2020-10-31] MEDS: LORazepam INJ 2 MG/ML (ATIVAN) VIAL IV PRN (22:09)
[2020-10-31] MEDS: SENNA W/DOCUSATE (SENOKOT S) TABLET PO SCH (22:09)
[2020-11-01 00:35] VITALS: BP 166/78
[2020-11-01] MEDS: HYDROcodone/APAP 5 MG/325 MG (LORTAB) TAB PO PRN ×2 (03:05→14:09)
[2020-11-01 04:29] VITALS: BP 133/63
[2020-11-01 04:54] LABS: ABG BASE EXCESS 13.9 MMOL/L (-2.5-2.5); ABG OXYGEN SATURATION 99 % (94-100); ABG PCO2 58 MMHG (35-45); ABG PH 7.44 (7.37-7.43); ABG PO2 103 MMHG (79-93); ABG TCO2 40.9 MMOL/L (21.0-31.0)
[2020-11-01 04:55] LABS: ALLENS TEST YES-POS; INSPIRED O2 35%; PATIENT TEMP 36.4; VENTILATOR NO
[2020-11-01] MEDS: LORazepam INJ 2 MG/ML (ATIVAN) VIAL IV PRN ×2 (05:33→14:09)
[2020-11-01] MEDS: CATHETER FLUSH 10 ML SYR IV SCH ×3 (05:33→20:58)
[2020-11-01] MEDS: predniSONE 20 MG TAB PO SCH (05:33)
[2020-11-01 05:42] LABS: BASOPHILS % (AUTO) 0 % (0-10); EOSINOPHILS # (AUTO) 0.1 10^3/uL (0.0-0.3); EOSINOPHILS % (AUTO) 1 % (0-10); HEMATOCRIT 37 % (35-52); LYMPHOCYTES # (AUTO) 2.7 10^3/uL (1.0-4.0); LYMPHOCYTES % (AUTO) 23 % (12-44); MEAN CORPUSCULAR HEMOGLOBIN 30 pg (25-34); MEAN CORPUSCULAR HGB CONC 32 g/dL (32-36); MEAN CORPUSCULAR VOLUME 91 fL (80-99); MEAN PLATELET VOLUME 8.8 fL (9.0-12.2); MONOCYTES # (AUTO) 0.8 10^3/uL (0.0-1.0); MONOCYTES % (AUTO) 7 % (0-12); NEUTROPHILS % (AUTO) 68 % (42-75); PLATELET COUNT 199 10^3/uL (130-400); WHITE BLOOD COUNT 11.8 10^3/uL (4.3-11.0)
[2020-11-01 05:57] LABS: ALBUMIN 3.5 GM/DL (3.2-4.5); CHLORIDE 91 MMOL/L (98-107); POTASSIUM 3.8 MMOL/L (3.6-5.0); SODIUM 137 MMOL/L (135-145)
[2020-11-01 05:59] LABS: CALCIUM 8.2 MG/DL (8.5-10.1)
--- NOTE | 2020-11-01 05:59 | Pulmonary Consultation ---
History of Present Illness History of Present Illness Date Seen by Provider: Nov 01, 2020 Time Seen by Provider: 05:53 Date of Admission History of Present Illness 55yo with hx of COPD and uses oxygen at night presented ED secondary to anxiety and worsening SOB. PT was rx steroid taper as out pt which has been helping. He is currently on BiPAP . Allergies and Home Medications Allergies Coded Allergies: buspirone HCl (Verified Allergy, Unknown, 10/11/18) etodolac (Verified Allergy, Unknown, 10/11/18) trazodone (Verified Allergy, Unknown, 10/25/20) Neuromuscular Blockers, Steroidal (Verified Adverse Reaction, Unknown, 10/11/18) gabapentin (Verified Adverse Reaction, Unknown, 10/11/18) Home Medications Albuterol Sulfate 1 Puff Puff, 2 PUFF INH QID PRN for SHORTNESS OF BREATH, (Reported) Albuterol Sulfate 2.5 Mg/3 Ml Vial.neb, 2.5 MG NEB Q4H PRN for SHORTNESS OF BREATH, (Reported) Alprazolam 0.5 Mg Tablet, 0.5 MG PO TID PRN for ANXIETY, (Reported) Amlodipine Besylate 10 Mg Tablet, 10 MG PO DAILY, (Reported) Aspirin 325 Mg Tablet.dr, 325 MG PO DAILY, (Reported) Atenolol 50 Mg Tablet, 50 MG PO HS, (Reported) Azithromycin 250 Mg Tablet, 250 MG PO DAILY, (Reported) FILLED 10-24-2020 #6/5 DAY SUPPLY Cetirizine HCl 10 Mg Tablet, 10 MG PO DAILY PRN for ALLERGY SYMPTOMS, (Reported) Cholecalciferol (Vitamin D3) 125 Mcg Tablet, 125 MCG PO DAILY, (Reported) Clonidine HCl 0.1 Mg Tablet, 0.1 MG PO TID, (Reported) Diphenhydramine HCl 25 Mg Capsule, 25 MG PO Q6H PRN for ALLERGY SYMPTOMS, (Reported) Docusate Sodium 100 Mg Capsule, 100 MG PO BID, (Reported) Enalapril Maleate 20 Mg Tablet, 10 MG PO BID, (Reported) TAKES OF A 20MG TAB Ezetimibe 10 Mg Tablet, 10 MG PO DAILY, (Reported) Fluticasone Propion/Salmeterol 1 Each Blst.w.dev, 1 PUFF INH Q12H, (Reported) Fluticasone Propionate 16 Gm [place].susp, 1 SPRAY NSEACH BID, (Reported) Folic Acid 1 Mg Tablet, 1 MG PO DAILY, (Reported) Guaifenesin/Dextromethorphan 1 Each Tab.er.12h, 1-2 EACH PO Q12H PRN for COUGH/CONGESTION, (Reported) [place]-3/Dha/Epa/Fish Oil 1 Each Capsule, 1 EA PO TID, (Reported) Omeprazole 20 Mg Capsule.dr, 20 MG PO DAILY, (Reported) Ondansetron 4 Mg Tab.rapdis, 4 MG PO DAILY, (Reported) Oxymetazoline HCl 15 Ml Mist, 2-3 SPRAYS NSEACH Q12H PRN for CONGESTION, (Reported) Prednisone 20 Mg Tab, 40 MG PO DAILY, (Reported) TAKES 2 (20MG) TABS FILLED 10-24-2020 #10/5 DAY SUPPLY Prednisone 10 Mg Tab, 0 PO UD Take 5 tabs(50mg)daily, decrease by 1 tab(10mg) every other day. Prescribed by: ZANA RODRIGUEZ on 10/27/20 1033 Simethicone 125 Mg Tab.chew, 2 TAB PO BID PRN for GAS, (Reported) Sodium Chloride 30 Ml [place], 2 SPRAYS NSEACH PRN PRN for DRY/CONGESTED NOSE, (Reported) Past Linneya-Ugidsv-Aecgxc Hx Patient Social History Alcohol Use: Denies Use Smoking Status: Former Smoker Type Used: Cigarettes Former Smoker, Quit: Oct 23, 2020 2nd Hand Smoke Exposure: Yes Recent Infectious Disease Expo: No Recent Hopitalizations: No Immunizations Up To Date Tetanus Booster (TDap): Unknown Date of Pneumonia Vaccine: Aug 07, 2018 Date of Influenza Vaccine: Oct 27, 2020 Seasonal Allergies Seasonal Allergies: Yes Past Medical History Surgeries: Yes (pericardial window, c/s x2lung thoracensis) Abdominal, Appendectomy, Cardiac, Section, Gallbladder, Hysterectomy, Oophorectomy Respiratory: Yes Asthma, Pneumonia, Pulmonary Embolism, Sleep Apnea, COPD, Emphysema Currently Using CPAP: No Currently Using BIPAP: No Cardiac: Yes (Pericardial effusion-S/P PERICARDIAL WINDOW 08/2017) Atrial Fibrillation, Chronic Edema/Swelling, Deep Vein Thrombosis, High Choleste rol, Hypertension Neurological: Yes (PSEUDO SEIZURES ) Seizure Disorder 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 Disorders: Yes Female 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 Disorders: 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, 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, Menopausal Genitourinary: No Gastrointestinal: Yes Abdominal Hernia, Gastroesophageal Reflux, Diverticulosis, Hiatal Hernia, Ulcer, Irritable Bowel Musculoskeletal: Yes (CHRONIC KNEE AND HIP PAIN, SPINAL STENOSIS) Degenerate Disk Disease, Osteoporosis, Arthritis, Chronic Back Pain Endocrine: No HEENT: No Cancer: No Psychosocial: Yes Pseudo Seizures, Anxiety, Depression Integumentary: Yes Eczema Blood Disorders: No Adverse Reaction/Blood Tranf: No Family Medical History FH: cirrhosis 19 MOTHER FH: liver cancer 19 MOTHER FHx: lung cancer 19 FATHER Hypertension 19 FATHER 19 MOTHER Review of Systems Time Seen by Provider: 05:53 Sepsis Event Evaluation Height, Weight, BMI Height: 5'8.00" Weight: 201lbs. 0.8oz. 91.147590vk; 32.00 BMI Method:Stated Exam Exam Vital Signs Date Time Temp Pulse Resp B/P (MAP) Pulse Ox O2 Delivery O2 Flow Rate FiO2 11/01/20 04:29 36.4 60 18 133/63 (86) 98 NIV Bilevel 11/01/20 01:24 65 20 98 35.00 11/01/20 00:35 36.2 67 18 166/78 (107) 98 NIV Bilevel 10/31/20 21:27 97 Nasal Cannula 2.00 10/31/20 19:34 82 98 21 10/31/20 19:30 98 Nasal Cannula 2.00 10/31/20 19:16 35.8 61 19 167/81 (109) 94 Nasal Cannula 2.00 10/31/20 18:07 Nasal Cannula 2.00 10/31/20 17:40 36.7 80 20 149/87 (122) 98 Nasal Cannula 3.00 10/31/20 15:05 36.7 82 22 177/95 (122) 98 Room Air I & O 11/01/20 06:59 Intake Total 1720 ml Balance 1720 ml Height & Weight Height: 5'8.00" Weight: 201lbs. 0.8oz. 91.000776ng; 32.00 BMI Method:Stated General Appearance: No Apparent Distress, WD/WN, Chronically ill, Other (no distress. 96% on room air. ) Respiratory: No Accessory Muscle Use, No Respiratory Distress Cardiovascular: Regular Rate, Rhythm, Normal Peripheral Pulses Capillary Refill: Less Than 3 Seconds Extremity: Normal Capillary Refill, No Calf Tenderness Neurologic/Psychiatric: Alert, Oriented x3 Skin: Normal Color, Warm/Dry Results Lab Laboratory Tests 10/31/20 15:10 Assessment/Plan Assessment/Plan COPDAE -BiPAP PRN -Prednisone -Duonebs -Oxygen -ABG, labs, cxr reviewed Leukocytosis - secondary to prednisone -Monitor KERVIN CERON DO Nov 01, 2020 05:59
[2020-11-01 06:00] LABS: GLUCOSE 129 MG/DL (70-105); TOTAL PROTEIN 5.8 GM/DL (6.4-8.2)
[2020-11-01 06:01] LABS: CARBON DIOXIDE 36 MMOL/L (21-32)
[2020-11-01 06:02] LABS: BILIRUBIN,TOTAL 0.2 MG/DL (0.1-1.0)
[2020-11-01 06:03] LABS: ALKALINE PHOSPHATASE 55 U/L (40-136); CREATININE SERUM 0.75 MG/DL (0.60-1.30); GFR ESTIMATED > 60
[2020-11-01 06:04] LABS: BUN/CREATININE RATIO 13
[2020-11-01 06:06] LABS: ALANINE AMINOTRANSFERASE 22 U/L (0-55)
[2020-11-01] MEDS: RT-ALBUTEROL/IPRATROPIUM 3 ML (DUONEB) VIAL INH SCH ×5 (06:33→21:45)
[2020-11-01 08:00] VITALS: BP 183/84
[2020-11-01] MEDS: NYSTATIN ORAL SUSP 5 ML UDC PO SCH ×4 (08:45→20:57)
[2020-11-01] MEDS: SENNA W/DOCUSATE (SENOKOT S) TABLET PO SCH ×2 (08:45→20:57)
[2020-11-01] MEDS: polyethylene glycoL POWDER 17 GM (MIRALAX) PACK PO SCH ×2 (08:45→20:57)
[2020-11-01] MEDS: DICYCLOMINE 10 MG (BENTYL) CAP PO SCH ×3 (08:49→20:56)
[2020-11-01] MEDS ORDERED: PRD10T PO (10:33)
[2020-11-01] MEDS ORDERED: MAG30ORA2 PO (10:33)
[2020-11-01] MEDS ORDERED: FLEET ENEMA ADULT 1 EA BTL PR ONE (10:45)
[2020-11-01] MEDS ORDERED: BISACODYL 10 MG SUPP (DULCOLAX) PR ONE (10:45)
--- NOTE | 2020-11-01 11:41 | Short Stay Summary-Hospitalist ---
WADE WISEMAN,[facility] / [facility] 11/01/20 1141: History of Present Illness HPI/Chief Complaint Mahnaz is a 55 yo woman with PMH of COPD on home O2 at night who presented to the ED with progressive SOB and anxiety. She attributes these symptoms to a prescribed steroid. She was placed on BiPAP on admission. Source: patient Exam Limitations: no limitations Date Seen 11/01/20 Time Seen by a Provider: 10:45 Attending Physician Nat George Julie A MD Referring Physician Date of Admission Oct 31, 2020 at 17:05 Home Medications & Allergies Home Medications Home Meds Active Reported Mylanta Suspension (Al Hydrox/Mg Hydrox/Simethicone) 30 Ml Oral.susp 20-30 Ml PO QID PRN Prednisone 10 Mg Tab Mg PO DAILY FILLED 10-27-2020 #30/6 DAY SUPPLY TAPER DOSE: TAKE 5 TABS ON DAY 1 AND DECRASE BY 1 TAB EVERY OTHER DAY UNTIL FINISHED Vitamin D3 (Cholecalciferol (Vitamin D3)) 125 Mcg Tablet 125 Mcg PO DAILY Mucinex Dm ER 600-30 mg Tablet (Guaifenesin/Dextromethorphan) 1 Each Tab.er.12h 1-2 Each PO Q12H PRN Saline Nasal Jones (Sodium Chloride) 30 Ml Jones 2 Sprays NSEACH PRN PRN Afrin (Oxymetazoline HCl) 15 Ml Mist 2-3 Sprays NSEACH Q12H PRN Benadryl (Diphenhydramine HCl) 25 Mg Capsule 25 Mg PO Q6H PRN Omeprazole 20 Mg Capsule.dr 20 Mg PO DAILY Folic Acid 1 Mg Tablet 1 Mg PO DAILY Ezetimibe 10 Mg Tablet 10 Mg PO DAILY Morrow-3 Fish Oil 1,000 mg Sftg (Morrow-3/Dha/Epa/Fish Oil) 1 Each Capsule 1 Ea PO TID Stool Softener (Docusate Sodium) 100 Mg Capsule 100 Mg PO BID Fluticasone-Salmeterol 500-50 (Fluticasone Propion/Salmeterol) 1 Each Blst.w.dev 1 Puff INH Q12H Ondansetron Odt (Ondansetron) 4 Mg Tab.rapdis 4 Mg PO DAILY Enalapril Maleate 20 Mg Tablet 10 Mg PO BID TAKES OF A 20MG TAB Amlodipine Besylate 10 Mg Tablet 10 Mg PO DAILY Atenolol 50 Mg Tablet 50 Mg PO HS Clonidine HCl 0.1 Mg Tablet 0.1 Mg PO TID Gas-X (Simethicone) 125 Mg Tab.chew 2 Tab PO BID PRN Aspirin EC (Aspirin) 325 Mg Tablet.dr 325 Mg PO DAILY Albuterol Sulfate 2.5 Mg/3 Ml Vial.neb 2.5 Mg NEB Q4H PRN Proair Hfa (Albuterol Sulfate) 1 Puff Puff 2 Puff INH QID PRN Fluticasone Propionate 16 Gm Jones.susp 1 Jones NSEACH BID Cetirizine HCl 10 Mg Tablet 10 Mg PO DAILY PRN Alprazolam 0.5 Mg Tablet 0.5 Mg PO TID PRN Allergies Allergies Coded Allergies buspirone HCl (Verified Allergy, Unknown, 10/11/18) etodolac (Verified Allergy, Unknown, 10/11/18) trazodone (Verified Allergy, Unknown, 10/25/20) Neuromuscular Blockers, Steroidal (Verified Adverse Reaction, Unknown, 10/11/18) gabapentin (Verified Adverse Reaction, Unknown, 10/11/18) Past Vgprnfe-Zgvaid-Faqxaw Hx Patient Social History Alcohol Use: Denies Use Recreational Drug Use: No Smoking Status: Former Smoker Former Smoker, Quit: Oct 23, 2020 Type Used: Cigarettes 2nd Hand Smoke Exposure: Yes Recent Foreign Travel: No Contact w/other who traveled: No Recent Hopitalizations: No Recent Infectious Disease Expo: No Immunizations Up To Date Tetanus Booster (TDap): Unknown Date of Pneumonia Vaccine: Aug 07, 2018 Date of Influenza Vaccine: Oct 27, 2020 Seasonal Allergies Seasonal Allergies: Yes Past Medical History Surgeries: Abdominal, Appendectomy, Cardiac, Section, Gallbladder, Hysterectomy, Oophorectomy Currently Using CPAP: No Currently Using BIPAP: No Cardiac: Atrial Fibrillation, Chronic Edema/Swelling, Deep Vein Thrombosis, High Cholesterol, Hypertension Neurological: Seizure Disorder 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: Yes Female 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 Disorders: Ovarian Cyst Hysterectomy, 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, Menopausal Gastrointestinal: Abdominal Hernia, Gastroesophageal Reflux, Diverticulosis, Hiatal Hernia, Ulcer, Irritable Bowel Musculoskeletal: Degenerate Disk Disease, Osteoporosis, Arthritis, Chronic Back Pain Psychosocial: Pseudo Seizures, Anxiety, Depression Skin/Integumentary: Eczema History of Blood Disorders: No Adverse Reaction to Blood Taylor: No Family History FH: cirrhosis 19 MOTHER FH: liver cancer 19 MOTHER FHx: lung cancer 19 FATHER Hypertension 19 FATHER 19 MOTHER Review of Systems Constitutional: dizziness, weakness EENTM: no symptoms reported Respiratory: dyspnea on exertion, short of breath Cardiovascular: no symptoms reported Gastrointestinal: abdominal pain, constipation, dysphagia Genitourinary: no symptoms reported Musculoskeletal: back pain, neck pain Skin: no symptoms reported Psychiatric/Neurological: No Symptoms Reported Physical Exam Physical Exam Vital Signs Vital Signs - First Documented 10/31/20 10/31/20 10/31/20 15:05 17:40 19:34 Temp 36.7 Pulse 82 Resp 22 B/P (MAP) 177/95 (122) Pulse Ox 98 O2 Delivery Room Air O2 Flow Rate 3.00 FiO2 21 Capillary Refill : Less Than 3 Seconds Height, Weight, BMI Height: 5'8.00" Weight: 201lbs. 0.8oz. 91.973510fk; 32.00 BMI Method:Stated General Appearance: No Apparent Distress, WD/WN, Chronically ill, Other (no distress. 96% on room air. ) Eyes: Bilateral Eye Normal Inspection, Bilateral Eye PERRL Respiratory: No Accessory Muscle Use, No Respiratory Distress Cardiovascular: Regular Rate, Rhythm, Normal Peripheral Pulses Gastrointestinal: Non Tender, Soft Extremity: Normal Capillary Refill, No Calf Tenderness, No Pedal Edema Neurologic/Psychiatric: Alert, Oriented x3 Skin: Normal Color, Warm/Dry Results Results/Procedures Labs Laboratory Tests 10/31/20 15:10 11/01/20 05:24 Patient resulted labs reviewed. Laboratory Tests Test 10/31/20 16:19 11/01/20 04:49 Blood Gas Puncture Site R BRACHIAL LEFT RADIAL Blood Gas Patient Temperature 36.7 36.4 Arterial Blood pH 7.44 7.44 Arterial Blood Partial Pressure CO2 56 MMHG 58 MMHG Arterial Blood Partial Pressure O2 64 MMHG 103 MMHG Arterial Blood HCO3 37 MMOL/L 39 MMOL/L Arterial Blood Total CO2 38.8 MMOL/L 40.9 MMOL/L Arterial Blood Oxygen Saturation 92 % 99 % Arterial Blood Base Excess 12.1 MMOL/L 13.9 MMOL/L Ac Test YES-POS YES-POS Blood Gas Ventilator Setting NO NO Blood Gas Inspired Oxygen ROOM AIR 35% Imaging: Reviewed Imaging Report Imaging NAME: [facility]Z [facility] REC#: [id number] PT STATUS: REG ER : 1965 PHYSICIAN: EREN MCDONALD APRN ADMIT DATE: 10/31/20/ER Signed Date of Exam:10/31/20 CHEST 1 VIEW, AP/PA ONLY INDICATION: Shortness of breath. EXAMINATION: Portable chest at 3:53 PM. FINDINGS: The heart size and pulmonary vascularity are normal. The lungs are clear. There are no effusions or pneumothoraces. IMPRESSION: Negative chest. Dictated by: Dictated on workstation # [id number] Dict: 10/31/20 1554 Trans: 10/31/20 1604 [id number] Interpreted by: OZIEL HUERTA MD Electronically signed by: OZIEL HUERTA MD 10/31/20 1604 Short Stay Diagnosis Discharge Diagnosis-Short Stay Admission Diagnosis Acute exacerbation of COPD Final Discharge Diagnosis Acute exacerbation of COPD Conclusion Plan -BiPAP PRN, may need sleep study for home BiPAP/CPAP -Prednisone taper -Duoneb -currently on 2L O2 via NC -continue home albuterol, fluticasone-salmeterol on DC -encourage continued smoking cessation NAT GEORGE DO 11/02/20 0609: History of Present Illness HPI/Chief Complaint CC: SOB HPI: This is a 55yoWF clinic pt of [facility] Dr. Gill who has a past medical history of oxygen dependency COPD, and quit smoking [address] Moore was consulted because of hypercapnia and hypoxia on ABG yesterday. She does have some difficulty swallowing. Having some dysphagia, she has had scopes so I will do a speech evaluation and a barium swallow. Dulcolax suppository and fleets enema will be give since laxatives were given but she hasnt had a BM for one week. Overall she wants to go home but needs swallow study to be sure she is not aspirating. Past Nsvfmbz-Hhhncl-Gqmsma Hx Past Med/Social Hx: Reviewed Nursing Past Med/Soc Hx, Reviewed and Corrections made Patient Social History Marrital Status: single Employed/Student: unemployed Smoking Status: Current Everyday Smoker Past Medical History Respiratory: COPD Cardiac: High Cholesterol, Hypertension Family History FH: cirrhosis 19 MOTHER FH: liver cancer 19 MOTHER FHx: lung cancer 19 FATHER Hypertension 19 FATHER 19 MOTHER Review of Systems Constitutional: see HPI Physical Exam Physical Exam General Appearance: No Apparent Distress, WD/WN, Chronically ill, Obese Respiratory: No Accessory Muscle Use, No Respiratory Distress, Decreased Breath Sounds Cardiovascular: Regular Rate, Rhythm Short Stay Diagnosis Discharge Diagnosis-Short Stay Admission Diagnosis AECOPD Final Discharge Diagnosis AECOPD Hypercapnia Hypoxia Recent smoking cessation Dysphagia Plan: ST eval Monitor lungs Appreciate Dr Moore Supervisory-Addendum Brief Verification & Attestation Participated in pt care: history, MDM, physical Personally performed: exam, history, MDM, supervision of care Care discussed with: Medical Student Procedures: n/a Results interpretation: Verified all documentation Verification and Attestation of Medical Student E/M Service A medical student performed and documented this service in my presence. I reviewed and verified all information documented by the medical student and made modifications to such information, when appropriate. I personally performed the physical exam and medical decision making. Nat George, Nov 02, 2020,06:10 WADE WISEMAN,MED STUDEN Nov 01, 2020 11:41 NAT GEORGE DO Nov 02, 2020 06:09
[2020-11-01 12:14] VITALS: BP 134/97
[2020-11-01] MEDS ORDERED: NON-FORMULARY MEDICATION 1 EA EA (Cetirizine HCl 10 MG) PO PRN (14:00)
[2020-11-01] MEDS ORDERED: NON-FORMULARY MEDICATION 1 EA EA (Diphenhydramine HCl (Benadryl) 25 MG) PO PRN (14:00)
[2020-11-01] MEDS ORDERED: ANTACID SUSP 30 ML UDC (MYLANTA) PO PRN (14:00)
[2020-11-01] MEDS ORDERED: NON-FORMULARY MEDICATION 1 EA EA (Guaifenesin/Dextromethorphan (Mucinex Dm ER 600-30 mg Ta PO PRN (14:00)
[2020-11-01] MEDS ORDERED: SIMETHICONE PO PRN (14:00)
[2020-11-01] MEDS ORDERED: OXYMETAZOLINE HCL NSEACH PRN (14:00)
[2020-11-01] MEDS ORDERED: SALINE NASAL SPRAY (OCEAN) 45 ML BTL PRN (14:00)
[2020-11-01] MEDS ORDERED: NON-FORMULARY MEDICATION 1 EA EA (Fluticasone Propion/Salmeterol (Fluticasone-Salmeterol 5 INH SCH (14:00)
[2020-11-01] MEDS ORDERED: LORATADINE (CLARITIN) 10 MG TAB PO PRN (14:15)
[2020-11-01] MEDS ORDERED: OXYMETAZOLINE (AFRIN) 0.05% NA 30 ML BTL PRN (15:15)
[2020-11-01] MEDS ORDERED: diphenhydrAMINE 25 MG TAB (BENADRYL) PO PRN (15:15)
[2020-11-01] MEDS ORDERED: guaiFENesin (MUCINEX) 600 MG TAB PO PRN (15:15)
[2020-11-01] MEDS ORDERED: SIMETHICONE 80 MG (MYLICON) CHEW PO PRN (15:15)
[2020-11-01] MEDS ORDERED: eZETimibe 10 MG (ZETIA) TABLET PO NR (16:15)
[2020-11-01] MEDS ORDERED: amLODIPine 10 MG (NORVASC) TAB PO NR (16:15)
[2020-11-01] MEDS: ENOXAPARIN 40 MG/0.4 ML (LOVENOX) SYR SC SCH (17:36)
[2020-11-01] MEDS: OMEGA 3 (FISH OIL) 1000 MG CAP PO SCH (17:37)
[2020-11-01 20:24] VITALS: BP 175/80
[2020-11-01] MEDS: DOCUSATE SODIUM 100 MG (COLACE) CAP PO SCH (20:56)
[2020-11-01] MEDS: FLUTICASONE NASAL SPRAY (FLONASE) 16 GM BTL NS SCH (20:56)
[2020-11-01] MEDS: ALPRAZolam 0.5 MG (XANAX) TAB PO PRN (20:56)
[2020-11-01] MEDS: cloNIDine 0.1 MG (CATAPRES) TAB PO SCH (20:57)
[2020-11-01] MEDS: ENALAPRIL 10 MG (VASOTEC) TAB PO SCH (20:57)
[2020-11-01] MEDS ORDERED: ATENOLOL 50 MG (TENORMIN) TAB PO SCH (21:00)
[2020-11-01] MEDS ORDERED: NON-FORMULARY MEDICATION 1 EA EA (Omega-3/Dha/Epa/Fish Oil (Omega-3 Fish Oil 1,000 mg Sftg PO SCH (21:00)
[2020-11-01] MEDS ORDERED: NON-FORMULARY MEDICATION 1 EA EA (Enalapril Maleate 10 MG) PO SCH (21:00)
[2020-11-02 00:42] VITALS: BP 142/73
[2020-11-02] MEDS: ADVAIR HFA 115/21 MCG INHALER 8 GM IH SCH ×2 (02:08→07:16)
[2020-11-02] MEDS: RT-ALBUTEROL/IPRATROPIUM 3 ML (DUONEB) VIAL INH SCH ×3 (02:09→10:12)
[2020-11-02 04:46] VITALS: BP 128/61
[2020-11-02] MEDS: HYDROcodone/APAP 5 MG/325 MG (LORTAB) TAB PO PRN ×2 (04:59→12:12)
[2020-11-02] MEDS: predniSONE 20 MG TAB PO SCH (04:59)
[2020-11-02] MEDS: ALPRAZolam 0.5 MG (XANAX) TAB PO PRN (04:59)
[2020-11-02] MEDS: CATHETER FLUSH 10 ML SYR IV SCH (05:01)
[2020-11-02 05:49] LABS: HEMOGLOBIN 12.2 g/dL (11.5-16.0); MEAN PLATELET VOLUME 8.9 fL (9.0-12.2); WHITE BLOOD COUNT 13.4 10^3/uL (4.3-11.0)
[2020-11-02 05:57] LABS: ALBUMIN 3.6 GM/DL (3.2-4.5); CHLORIDE 91 MMOL/L (98-107); POTASSIUM 4.1 MMOL/L (3.6-5.0); SODIUM 136 MMOL/L (135-145)
[2020-11-02 05:58] LABS: CALCIUM 8.6 MG/DL (8.5-10.1)
[2020-11-02 05:59] LABS: GLUCOSE 153 MG/DL (70-105)
[2020-11-02 06:00] LABS: TOTAL PROTEIN 6.2 GM/DL (6.4-8.2)
[2020-11-02 06:01] LABS: BILIRUBIN,TOTAL 0.3 MG/DL (0.1-1.0); CARBON DIOXIDE 33 MMOL/L (21-32)
[2020-11-02 06:03] LABS: ALKALINE PHOSPHATASE 54 U/L (40-136); CREATININE SERUM 0.79 MG/DL (0.60-1.30); GFR ESTIMATED > 60
[2020-11-02 06:04] LABS: BUN/CREATININE RATIO 10
[2020-11-02 06:06] LABS: ALANINE AMINOTRANSFERASE 28 U/L (0-55)
--- NOTE | 2020-11-02 06:10 | Pulmonary Progress Note ---
Subjective Time Seen by a Provider: 06:08 Subjective/Events-last exam PT complains of SOB davis with exertion. Sepsis Event Evaluation Height, Weight, BMI Height: 5'8.00" Weight: 201lbs. 0.8oz. 91.315869lj; 32.00 BMI Method:Stated Exam Exam Vital Signs Date Time Temp Pulse Resp B/P (MAP) Pulse Ox O2 Delivery O2 Flow Rate FiO2 11/02/20 04:46 36.1 64 20 128/61 (83) 97 NIV Bilevel 11/02/20 02:09 63 21 95 35.00 11/02/20 00:42 36.2 67 25 142/73 (96) 96 NIV Bilevel 11/01/20 21:53 66 22 98 35.00 11/01/20 21:45 98 Nasal Cannula 2.00 11/01/20 20:50 Nasal Cannula 2.00 11/01/20 20:24 36.4 64 20 175/80 (111) 98 Nasal Cannula 2.00 11/01/20 18:52 96 Nasal Cannula 2.00 11/01/20 14:46 94 Nasal Cannula 2.00 11/01/20 12:14 36.2 83 22 134/97 (109) 95 Nasal Cannula 2.00 11/01/20 10:01 94 Nasal Cannula 2.00 11/01/20 08:00 Nasal Cannula 2.00 11/01/20 08:00 36.4 75 24 183/84 (117) 95 Nasal Cannula 2.00 11/01/20 06:33 94 Nasal Cannula 2.00 I & O 11/02/20 06:59 Intake Total 1977 ml Balance 1977 ml Height & Weight Height: 5'8.00" Weight: 201lbs. 0.8oz. 91.939128zr; 32.00 BMI Method:Stated General Appearance: No Apparent Distress, WD/WN, Chronically ill, Other (no distress. 96% on room air. ) Respiratory: No Accessory Muscle Use, No Respiratory Distress Cardiovascular: Regular Rate, Rhythm, Normal Peripheral Pulses Capillary Refill: Less Than 3 Seconds Extremity: Normal Capillary Refill, No Calf Tenderness, No Pedal Edema Neurologic/Psychiatric: Alert, Oriented x3 Skin: Normal Color, Warm/Dry Results Lab Laboratory Tests 10/31/20 15:10 11/01/20 05:24 11/02/20 05:35 Assessment/Plan Assessment/Plan COPDAE -BiPAP PRN -Prednisone -Repeat CXR -Duonebs -Oxygen Leukocytosis - secondary to prednisone -Monitor -Repeat PCT KERVIN CERON DO Nov 02, 2020 06:10
[2020-11-02 08:00] VITALS: BP 171/77
[2020-11-02] MEDS ORDERED: ADVAIR HFA 115/21 MCG INHALER 8 GM IH SCH (08:00)
[2020-11-02] MEDS: OMEGA 3 (FISH OIL) 1000 MG CAP PO SCH (08:40)
[2020-11-02] MEDS: NYSTATIN ORAL SUSP 5 ML UDC PO SCH (08:40)
[2020-11-02] MEDS: DICYCLOMINE 10 MG (BENTYL) CAP PO SCH (08:41)
[2020-11-02] MEDS: ENALAPRIL 10 MG (VASOTEC) TAB PO SCH (08:41)
[2020-11-02] MEDS: cloNIDine 0.1 MG (CATAPRES) TAB PO SCH (08:41)
[2020-11-02] MEDS: DOCUSATE SODIUM 100 MG (COLACE) CAP PO SCH (08:42)
[2020-11-02] MEDS: polyethylene glycoL POWDER 17 GM (MIRALAX) PACK PO SCH (08:42)
[2020-11-02] MEDS: SENNA W/DOCUSATE (SENOKOT S) TABLET PO SCH (08:42)
[2020-11-02] MEDS: FLUTICASONE NASAL SPRAY (FLONASE) 16 GM BTL NS SCH (08:43)
[2020-11-02] MEDS ORDERED: VITAMIN D3 125 MCG (5,000 UNITS) CAPSULE PO SCH (09:00)
[2020-11-02] MEDS ORDERED: ONDANSETRON 4 MG (ZOFRAN) ORAL DISSOLVE TAB PO SCH (09:00)
[2020-11-02] MEDS ORDERED: eZETimibe 10 MG (ZETIA) TABLET PO SCH (09:00)
[2020-11-02] MEDS ORDERED: PANTOPRAZOLE 20 MG TABLET (PROTONIX) PO SCH (09:00)
[2020-11-02] MEDS ORDERED: ASPIRIN E.C. 325 MG (ECOTRIN) TABLET PO SCH (09:00)
[2020-11-02] MEDS ORDERED: amLODIPine 10 MG (NORVASC) TAB PO SCH (09:00)
[2020-11-02] MEDS ORDERED: FOLIC ACID 1 MG TAB PO SCH (09:00)
[2020-11-02] MEDS ORDERED: OMEPRAZOLE 20 MG (PriLOSEC) CAP NON-FORMULARY PO SCH (09:00)
--- NOTE | 2020-11-02 10:21 | ST Mod Barium Swallow ---
Speech Evaluation-General Medical Diagnosis COPD Onset Date: Nov 02, 2020 Therapy Diagnosis Therapy Diagnosis: Oropharyngeal Dysphagia Referral Referring Physician: Dr. Leung Medical History Pertinent Medical History: COPD, GERD, HTN, Smoking Speech Mod Barium Swallow Prior Level of Function Patient lives in her own home where she states even without teeth she eats anything she wants. Patient does state she chokes randomly on various items, "ev en my own spit." Oral Motor Skills Lingual ROM: Normal Lingual Strength: Normal Velum: Normal Volitional Dry Swallow: Yes Voluntary Cough: Yes Textures-Lateral View Lateral View Food Presentation: Thin Liquid via Spoon, Thin Liquid via Straw, Pureed Solids, Ground Solids, Mechanial Soft Solids, Regular Solids Oral Phase Labial Closure: No Impairment (WFL) Bolus Formation Pooling L/R: No Impairment (WFL) Bolus Formation Placement: No Impairment (WFL) Mastication Rotary Chew: No Impairment (WFL) A/P Lingual Propulsion: No Impairment (WFL) Lingual Movement: No Impairment (WFL) Oral Phase Residue: No Impairment (WFL) Pharyngeal Phase Swallow Response: No Impairment (WFL) Base of Tongue: No Impairment (WFL) Epiglottic Movement: No Impairment (WFL) Laryngeal Elevation: No Impairment (WFL) Vallecular Residue: No Impairment (WFL) Pharyngeal Wall Residue: No Impairment (WFL) Piriform Sinus Residue: No Impairment (WFL) Laryngeal Penetration: None Aspiration Observations: None Other Pharyngeal Observations: Patient stated post presentations that it felt like something was stuck, however she cleared with all swallows and there was no residue present. Esophageal Phase Peristalsis: WFL A/P Esophageal Propulsion Time: Less Than 5 Seconds Normal Performed-A/P View Not Applicable/Performed Summary/Impressions Oral Phase Impression: No Impairment (WFL) Patient is a 55 y/o female who was admitted to the hospital due to COPD exacerbation. The patient was referred for a MBS by Dr. Leung. The evaluation w as completed this am with results indicating a normal swallow function for all presentations. The patient states she eats what ever she wants to when she's home and does notice random choking with all textures. Speech-Plan Patient/Family Goals Patient/Family Goals: Patient is scheduled to discharge to her home today. Treatment Plan Speech Therapy Treatment Plan: Discontinue ST Treatment Duration: Nov 02, 2020 Frequency: 1 time per week Estimated Hrs Per Day: .5 hour per day Rehab Potential: Fair Barriers to Learning: Patient's medical status Pt/Family Agrees to Plan: Yes Safety Risks/Education Teaching Recipient: Patient Teaching Methods: Discussion Response to Teaching: Verbalize Understanding Education Topics Provided: Safety of oral intake and diet level, MOD results Time Speech Therapy Time In: 10:00 Speech Therapy Time Out: 10:30 Total Billed Time: 30 Billed Treatment Time 1, MOD, DYST No BETO DELONG Nov 02, 2020 10:21
--- NOTE | 2020-11-02 10:50 | Diagnostic Imaging Report ---
INDICATION: Shortness of breath. TIME OF EXAM: 9:50 AM. COMPARISON: 10/31/2020. FINDINGS: The heart size is normal. The lungs are clear. No infiltrates are seen. There is no effusion or pneumothorax. An age-indeterminant fracture involving the left 6th posterior rib is noted. IMPRESSION: Stable chest since the examination of 2 days earlier. Dictated by: Dictated on workstation # [id number]
--- NOTE | 2020-11-02 10:51 | Diagnostic Imaging Report ---
INDICATION: Dysphagia. TECHNIQUE: The procedure was performed in conjunction with Speech Pathology. Video fluoroscopy was performed during the swallowing of barium of multiple consistencies. A total of 1 minute and 20 seconds of fluoroscopic time was utilized. FINDINGS: The patient ingested thin liquid with a spoon and a straw. The patient also had applesauce, banana, ground beef, and cracker consistencies. There was mild early spillover with thin liquid. No significant vallecular or pyriform sinus residue was seen. There was normal epiglottic tilt and laryngeal elevation. No laryngeal penetration or aspiration was observed. IMPRESSION: Mild spillover. No penetration or aspiration was observed. Dictated by: Dictated on workstation # [id number]
[2020-11-02] MEDS ORDERED: PANT40TA2 PO (11:10)
[2020-11-02] MEDS ORDERED: NYST1000 PO (11:10)
[2020-11-02] MEDS ORDERED: DICY10CA12 PO (11:10)
[2020-11-02] MEDS ORDERED: PRD20T PO (11:10)
--- NOTE | 2020-11-02 11:11 | Discharge Summary ---
Discharge Summary Hospital Course Was the Problem List Reviewed?: Yes Problems/Dx: (1) COPD with acute exacerbation Status: Resolved (2) Shortness of breath at rest Status: Acute (3) Anxiety Status: Chronic Hospital Course Date of Admission: Oct 31, 2020 at 17:05 Admission Diagnosis : Family Physician/Provider: Brooke Gill MD Date of Discharge: 11/02/20 Discharge Diagnosis: AECOPD Hospital Course: Hospital course: Pt had a short hospital course, she was admitted for SOB for hypercapnea and hypoxia, BiPAP maintained, Dr. Moore consulted, started on a short course of steroids, dysphagia was an issues so speech therapy did a Barium-Swallow, no evidence of any obstruction, regular diet recommended. I went ahead and sent in Protonix daily, she did have resolution of sever constipation for one week and she was deemed stable for discharge with MYKEL evaluation as an outpatient. Labs and Pending Lab Test: Laboratory Tests 11/02/20 05:35: White Blood Count 13.4H, Red Blood Count 4.17, Hemoglobin 12.2, Hematocrit 38, Mean Corpuscular Volume 91, Mean Corpuscular Hemoglobin 29, Mean Corpuscular Hemoglobin Concent 32, Red Cell Distribution Width 13.0, Platelet Count 210, Mean Platelet Volume 8.9L, Sodium Level 136, Potassium Level 4.1, Chloride Level 91L, Carbon Dioxide Level 33H, Anion Gap 12, Blood Urea Nitrogen 8, Creatinine 0.79, Estimat Glomerular Filtration Rate > 60, BUN/Creatinine Ratio 10, Glucose Level 153H, Calcium Level 8.6, Corrected Calcium 8.9, Total Bilirubin 0.3, Aspartate Amino Transf (AST/SGOT) 22, Alanine Aminotransferase (ALT/SGPT) 28, Alkaline Phosphatase 54, Total Protein 6.2L, Albumin 3.6 11/02/20 05:38: Procalcitonin 0.02 Home Meds Active Protonix (Pantoprazole Sodium) 40 Mg Tablet.dr 40 Mg PO DAILY Prednisone 20 Mg Tab 30 Mg PO DAILY@0700 Dicyclomine HCl 10 Mg Capsule 20 Mg PO TID Nystatin 100,000 Unit/1 Ml Oral.susp 5 Ml PO QID Reported Mylanta Suspension (Al Hydrox/Mg Hydrox/Simethicone) 30 Ml Oral.susp 20-30 Ml PO QID PRN Prednisone 10 Mg Tab Mg PO DAILY FILLED 10-27-2020 #30/6 DAY SUPPLY TAPER DOSE: TAKE 5 TABS ON DAY 1 AND DECRASE BY 1 TAB EVERY OTHER DAY UNTIL FINISHED Vitamin D3 (Cholecalciferol (Vitamin D3)) 125 Mcg Tablet 125 Mcg PO DAILY Mucinex Dm ER 600-30 mg Tablet (Guaifenesin/Dextromethorphan) 1 Each Tab.er.12h 1-2 Each PO Q12H PRN Saline Nasal [place] (Sodium Chloride) 30 Ml [place] 2 Sprays NSEACH PRN PRN Afrin (Oxymetazoline HCl) 15 Ml Mist 2-3 Sprays NSEACH Q12H PRN Benadryl (Diphenhydramine HCl) 25 Mg Capsule 25 Mg PO Q6H PRN Omeprazole 20 Mg Capsule.dr 20 Mg PO DAILY Folic Acid 1 Mg Tablet 1 Mg PO DAILY Ezetimibe 10 Mg Tablet 10 Mg PO DAILY L[place]-3 Fish Oil 1,000 mg Sftg ([place]-3/Dha/Epa/Fish Oil) 1 Each Capsule 1 Ea PO TID Stool Softener (Docusate Sodium) 100 Mg Capsule 100 Mg PO BID Fluticasone-Salmeterol 500-50 (Fluticasone Propion/Salmeterol) 1 Each Blst.w.dev 1 Puff INH Q12H Ondansetron Odt (Ondansetron) 4 Mg Tab.rapdis 4 Mg PO DAILY Enalapril Maleate 20 Mg Tablet 10 Mg PO BID TAKES OF A 20MG TAB Amlodipine Besylate 10 Mg Tablet 10 Mg PO DAILY Atenolol 50 Mg Tablet 50 Mg PO HS Clonidine HCl 0.1 Mg Tablet 0.1 Mg PO TID Gas-X (Simethicone) 125 Mg Tab.chew 2 Tab PO BID PRN Aspirin EC (Aspirin) 325 Mg Tablet.dr 325 Mg PO DAILY Albuterol Sulfate 2.5 Mg/3 Ml Vial.neb 2.5 Mg NEB Q4H PRN Proair Hfa (Albuterol Sulfate) 1 Puff Puff 2 Puff INH QID PRN Fluticasone Propionate 16 Gm Carlisle.susp 1 [place] NSEACH BID Cetirizine HCl 10 Mg Tablet 10 Mg PO DAILY PRN Alprazolam 0.5 Mg Tablet 0.5 Mg PO TID PRN Assessment/Pt Instructions [facility] 1 week Discharge Planning: <30 minutes discharge planning Discharge Instructions Discharge Diet: No Restrictions Discharge Physical Examination Vital Signs Vital Signs Date Time Temp Pulse Resp B/P (MAP) Pulse Ox O2 Delivery O2 Flow Rate FiO2 11/02/20 10:13 96 Nasal Cannula 2.00 11/02/20 08:00 36.3 67 20 171/77 (108) 10/31/20 19:34 21 General Appearance: No Apparent Distress, WD/WN, Chronically ill Respiratory: Lungs Clear, Normal Breath Sounds Cardiovascular: Regular Rate, Rhythm Neurologic/Psychiatric: Alert, Oriented x3, No Motor/Sensory Deficits, Normal Mood/Affect Allergies: Coded Allergies: buspirone HCl (Verified Allergy, Unknown, 10/11/18) etodolac (Verified Allergy, Unknown, 10/11/18) trazodone (Verified Allergy, Unknown, 10/25/20) Neuromuscular Blockers, Steroidal (Verified Adverse Reaction, Unknown, 10/11/18) gabapentin (Verified Adverse Reaction, Unknown, 10/11/18) Discharge Summary Date of Admission Oct 31, 2020 at 17:05 Date of Discharge Discharge Date: Nov 02, 2020 Admission Diagnosis AECOPD YRIS GEORGE DO Nov 02, 2020 11:11
[2020-11-02 12:04] VITALS: BP 143/73
[2020-11-02 12:35] VITALS: BP 143/73
--- NOTE | 2020-11-02 19:46 | Progress Note ---
WADE WISEMAN,MED STUDEN 11/02/201945: Progress Note HOSPITAL COURSE 55 yo woman with PMH of COPD on home O2 currently on a steroid taper who presented to the ED with worsening SOB and anxiety with ABG indicating CO2 retention (pCO2 56), hypoxemia (pO2 64), and alkalosis with pH 7.44. Pt was placed on BiPAP in the ED and admitted for stabilization & observation. On the floor she received Duoneb, Advair, and Fluticasone nose spray and her SpO2 improved to mid-90s on 2L O2 via NC despite continuing to endorse mild SOB at rest. She also complained of constipation which was relieved with Dulcolax & an enema, as well as dysphagia & resultant cough for which a modified barium swallow study was done on 11/02 which was normal. Pt discharged 11/02 with plan to f/u with respite care provider next day for assessment and to receive a CPAP machine. NAT GEORGE DO 11/03/20 0549: Supervisory-Addendum Brief Verification & Attestation Participated in pt care: history, MDM, physical Personally performed: exam, history, MDM, supervision of care Care discussed with: Medical Student Procedures: n/a Results interpretation: Verified all documentation Verification and Attestation of Medical Student E/M Service A medical student performed and documented this service in my presence. I reviewed and verified all information documented by the medical student and made modifications to such information, when appropriate. I personally performed the physical exam and medical decision making. Nat George, Nov 03, 2020,05:49 WADE WISEMAN,MED STUDEN Nov 02, 2020 19:46 NAT GEORGE DO Nov 03, 2020 05:49
== END 2020-11-02 12:35 | disposition home or self-care (01) ==
LOC: EDUNIT# 15:01 → ER 15:04 → 4TH 17:05
PROVIDERS: ADMIT Internal Medicine; ATTEND Internal Medicine
DX: J44.1 Chronic obstructive pulmonary disease with (acute) exacerbation (principal); F41.9 Anxiety disorder, unspecified; I10 Essential (primary) hypertension; E78.00 Pure hypercholesterolemia, unspecified; I48.91 Unspecified atrial fibrillation; K21.9 Gastro-esophageal reflux disease without esophagitis; K44.9 Diaphragmatic hernia without obstruction or gangrene; F32.9 Major depressive disorder, single episode, unspecified; G89.29 Other chronic pain; Z79.82 Long term (current) use of aspirin; Z79.51 Long term (current) use of inhaled steroids; Z79.899 Other long term (current) drug therapy; Z88.8 Allergy status to other drugs, medicaments and biological substances; Z88.5 Allergy status to narcotic agent; Z87.891 Personal history of nicotine dependence; Z90.710 Acquired absence of both cervix and uterus; Z80.0 Family history of malignant neoplasm of digestive organs; Z80.1 Family history of malignant neoplasm of trachea, bronchus and lung
CPT/HCPCS: 36415; 36600; 71045; 74230; 80053; 82805; 83880; 84145; 84484; 85007; 85025; 85027; 85379; 93005; 94640; 94660; 94760; 96374; G0378

== ENCOUNTER → 2020-11-18 | Outpatient (CLI) | payer MEDICAID ==
[~2020-11-18] MED LIST changes: +DICY10CA12 PO; +MAG30ORA2 PO; +NYST1000 PO; +PANT40TA2 PO
== END ==
LOC: LABNPT 06:00
PROVIDERS: ATTEND Nurse Practitioner Family
DX: Z01.812 Encounter for preprocedural laboratory examination (principal); Z53.9 Procedure and treatment not carried out, unspecified reason

== ENCOUNTER → 2020-11-24 | Outpatient (CLI) | payer MEDICAID ==
[2020-11-24 08:47] LABS: ALANINE AMINOTRANSFERASE 25 U/L (0-55); ALBUMIN 3.8 GM/DL (3.2-4.5); ALKALINE PHOSPHATASE 70 U/L (40-136); BILIRUBIN,TOTAL 0.2 MG/DL (0.1-1.0); BUN/CREATININE RATIO 5; CALCIUM 8.9 MG/DL (8.5-10.1); CARBON DIOXIDE 27 MMOL/L (21-32); CHLORIDE 100 MMOL/L (98-107); CHOLESTEROL 223 MG/DL (< 200); CREATININE SERUM 0.81 MG/DL (0.60-1.30); GFR ESTIMATED > 60; GLUCOSE 161 MG/DL (70-105); HDL CHOLESTEROL 50 MG/DL (40-60); POTASSIUM 4.3 MMOL/L (3.6-5.0); SODIUM 139 MMOL/L (135-145); TOTAL PROTEIN 6.8 GM/DL (6.4-8.2); TRIGLYCERIDES 339 MG/DL (<150); VLDL CHOLESTEROL 68 MG/DL (5-40)
== END ==
LOC: LAB 07:56
PROVIDERS: ATTEND Physician Assistant
DX: E78.2 Mixed hyperlipidemia (principal); I10 Essential (primary) hypertension
CPT/HCPCS: 36415; 80053; 80061

== ENCOUNTER → 2020-11-24 | Outpatient (CLI) | payer MEDICAID ==
[~2020-11-24] MED LIST changes: +CATHETER FLUSH 10 ML SYR IV PRN; +HOLD METFORMIN - RECEIVED CONTRAST 20 ML VIAL IV SCH; +IOHEXOL 350 MG/ML 100 ML (OMNIPAQUE 350) VIAL IV ONE; +NS 100 ML (IVPB) BAG IV ONE; +RT-ALBUTEROL SULF 2.5 MG/3 ML PRE-MIX VIAL INH ONE
[2020-11-24 08:47] LABS: BUN/CREATININE RATIO 5; CREATININE SERUM 0.81 MG/DL (0.60-1.30); GFR ESTIMATED > 60
--- NOTE | 2020-11-24 10:17 | Diagnostic Imaging Report ---
EXAMINATION: CT Chest with intravenous contrast. TECHNIQUE: Multiple contiguous axial images were obtained through the chest after the uneventful administration of intravenous contrast. All CT scans use one or more of the following dose optimizing techniques: automated exposure control, MA and/or KvP adjustment based on a patient size and exam type, or iterative reconstruction. HISTORY: Lung nodules. COMPARISON: 05/21/2019. FINDINGS: There is no edema or pneumonia. No pleural effusion. No pneumothorax. There is a stable 2 mm right apical nodule. Lungs are moderately emphysematous. A few small left apical nodules are also unchanged. Right lung fissural lymph node is unchanged. There is no axillary or supraclavicular lymphadenopathy. There is no mediastinal lymphadenopathy. Heart size is normal. There are no coronary artery calcifications. No pericardial effusion. Aorta is normal in caliber. Limited views of the upper abdomen show changes of cholecystectomy. There are no suspicious osseous lesions. IMPRESSION: 1. No suspicious pulmonary nodules. Dictated by: Dictated on workstation # [id number]
== END ==
LOC: RT 09:45
PROVIDERS: ATTEND Nurse Practitioner Family
DX: R91.8 Other nonspecific abnormal finding of lung field (principal); J44.9 Chronic obstructive pulmonary disease, unspecified
CPT/HCPCS: 36415; 71260; 82565; 84520; 94060; 94726; 94729

== ENCOUNTER 2020-11-29 21:10 | Outpatient (CLI) | payer MEDICAID ==
[~2020-11-29 21:10] MED LIST changes: -CATHETER FLUSH 10 ML SYR IV PRN; -HOLD METFORMIN - RECEIVED CONTRAST 20 ML VIAL IV SCH; -IOHEXOL 350 MG/ML 100 ML (OMNIPAQUE 350) VIAL IV ONE; -NS 100 ML (IVPB) BAG IV ONE; -RT-ALBUTEROL SULF 2.5 MG/3 ML PRE-MIX VIAL INH ONE
== END 2020-11-30 06:25 | disposition home or self-care (01) ==
LOC: SLEEP 21:10
PROVIDERS: ATTEND Nurse Practitioner Family
DX: J96.22 Acute and chronic respiratory failure with hypercapnia (principal); G47.36 Sleep related hypoventilation in conditions classified elsewhere; Z20.822 Contact with and (suspected) exposure to COVID-19
CPT/HCPCS: 95810; U0002; 87635

== ENCOUNTER 2021-01-05 15:12 | Emergency (ER) | payer MEDICAID ==
[~2021-01-05] VITALS: Ht 172 cm; Wt 102.9 kg
--- NOTE | 2021-01-05 15:21 | ED Abdominal Pain ---
General Chief Complaint: Abdominal/GI Problems Stated Complaint: RLQ PAIN Source of Information: Patient, EMS Exam Limitations: No Limitations History of Present Illness Date Seen by Provider: Jan 05, 2021 Time Seen by Provider: 15:21 Initial Comments To ER by EMS with right lower quadrant abdominal pain that began yesterday and got progressively worse. She has urinary frequency as well. No fevers or chills but she does have nausea. She does not have her appendix nor does she have a gallbladder. She only has 1 ovary and she believes is her right ovary. EMS gave Zofran and 100 mcg of fentanyl IV in route to the hospital. Allergies and Home Medications Allergies Coded Allergies: buspirone HCl (Verified Allergy, Unknown, 10/11/18) etodolac (Verified Allergy, Unknown, 10/11/18) trazodone (Verified Allergy, Unknown, 10/25/20) Neuromuscular Blockers, Steroidal (Verified Adverse Reaction, Unknown, 10/11/18) gabapentin (Verified Adverse Reaction, Unknown, 10/11/18) Home Medications Albuterol Sulfate 1 Puff Puff, 2 PUFF INH QID PRN for SHORTNESS OF BREATH, (Reported) Albuterol Sulfate 2.5 Mg/3 Ml Vial.neb, 2.5 MG NEB Q4H PRN for SHORTNESS OF BREATH, (Reported) Alprazolam 0.5 Mg Tablet, 0.5 MG PO TID PRN for ANXIETY, (Reported) Amlodipine Besylate 10 Mg Tablet, 10 MG PO DAILY, (Reported) Aspirin 325 Mg Tablet.dr, 325 MG PO DAILY, (Reported) Atenolol 50 Mg Tablet, 50 MG PO HS, (Reported) Cetirizine HCl 10 Mg Tablet, 10 MG PO DAILY PRN for ALLERGY SYMPTOMS, (Reported) Cholecalciferol (Vitamin D3) 125 Mcg Tablet, 125 MCG PO DAILY, (Reported) Clonidine HCl 0.1 Mg Tablet, 0.1 MG PO TID, (Reported) Dicyclomine HCl 10 Mg Capsule, 20 MG PO TID Prescribed by: YRIS GEORGE on 11/02/20 1110 Diphenhydramine HCl 25 Mg Capsule, 25 MG PO Q6H PRN for ALLERGY SYMPTOMS, (Reported) Docusate Sodium 100 Mg Capsule, 100 MG PO BID, (Reported) Enalapril Maleate 20 Mg Tablet, 10 MG PO BID, (Reported) TAKES OF A 20MG TAB Ezetimibe 10 Mg Tablet, 10 MG PO DAILY, (Reported) Fluticasone Propion/Salmeterol 1 Each Blst.w.dev, 1 PUFF INH Q12H, (Reported) Fluticasone Propionate 16 Gm [place].susp, 1 SPRAY NSEACH BID, (Reported) Folic Acid 1 Mg Tablet, 1 MG PO DAILY, (Reported) Guaifenesin/Dextromethorphan 1 Each Tab.er.12h, 1-2 EACH PO Q12H PRN for COUGH/CONGESTION, (Reported) Hydrocodone/Acetaminophen 1 Each Tablet, 1 TAB PO Q4H PRN for PAIN-MODERATE (5- 7) Prescribed by: EREN MCDONALD on 01/05/21 1728 Mag Hydrox/Al Hydrox/Simeth 30 Ml Oral.susp, 20-30 ML PO QID PRN for INDIGESTION, (Reported) Nystatin 100,000 Unit/1 Ml Oral.susp, 5 ML PO QID Prescribed by: YRIS GEORGE on 11/02/20 1110 [place]-3/Dha/Epa/Fish Oil 1 Each Capsule, 1 EA PO TID, (Reported) Omeprazole 20 Mg Capsule.dr, 20 MG PO DAILY, (Reported) Ondansetron 4 Mg Tab.rapdis, 4 MG PO DAILY, (Reported) Oxymetazoline HCl 15 Ml Mist, 2-3 SPRAYS NSEACH Q12H PRN for CONGESTION, (Reported) Pantoprazole Sodium 40 Mg Tablet.dr, 40 MG PO DAILY Prescribed by: YRIS GEORGE on 11/02/20 111 Prednisone 20 Mg Tab, 30 MG PO DAILY@0700 Prescribed by: YRIS GEORGE on 11/02/20 1110 Simethicone 125 Mg Tab.chew, 2 TAB PO BID PRN for GAS, (Reported) Sodium Chloride 30 Ml [place], 2 SPRAYS NSEACH PRN PRN for DRY/CONGESTED NOSE, (Reported) Patient Home Medication List Home Medication List Reviewed: Yes Review of Systems Review of Systems Constitutional: see HPI EENTM: No Symptoms Reported Respiratory: No Symptoms Reported Cardiovascular: No Symptoms Reported Gastrointestinal: See HPI, Abdominal Pain Genitourinary: No Symptoms Reported Musculoskeletal: no symptoms reported Skin: no symptoms reported Psychiatric/Neurological: No Symptoms Reported Endocrine: No Symptoms Reported Hematologic/Lymphatic: No Symptoms Reported Past Afvjwdq-Ggrydu-Pajqpv Hx Patient Social History Type Used: Cigarettes Former Smoker, Quit: Oct 23, 2020 2nd Hand Smoke Exposure: Yes Recent Hopitalizations: No Immunizations Up To Date Tetanus Booster (TDap): Unknown Date of Pneumonia Vaccine: Aug 07, 2018 Date of Influenza Vaccine: Oct 27, 2020 Seasonal Allergies Seasonal Allergies: Yes Past Medical History Surgeries: Yes (pericardial window, c/s x2lung thoracensis) Abdominal, Appendectomy, Cardiac, Section, Gallbladder, Hysterectomy, Oophorectomy Respiratory: Yes Asthma, Pneumonia, Pulmonary Embolism, Sleep Apnea, COPD, Emphysema Currently Using CPAP: No Currently Using BIPAP: No Cardiac: Yes (Pericardial effusion-S/P PERICARDIAL WINDOW 08/2017) High Cholesterol, Hypertension Neurological: Yes (PSEUDO SEIZURES ) Seizure Disorder 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 Disorders: Yes Female 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 Disorders: Ovarian Cyst CARD LACER JACQUARD History: Hysterectomy, 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, Menopausal Genitourinary: No Gastrointestinal: Yes Abdominal Hernia, Gastroesophageal Reflux, Diverticulosis, Hiatal Hernia, Ulcer, Irritable Bowel Musculoskeletal: Yes (CHRONIC KNEE AND HIP PAIN, SPINAL STENOSIS) Degenerate Disk Disease, Osteoporosis, Arthritis, Chronic Back Pain Endocrine: No HEENT: No Cancer: No Psychosocial: Yes Pseudo Seizures, Anxiety, Depression Integumentary: Yes Eczema Blood Disorders: No Adverse Reaction/Blood Tranf: No Family Medical History FH: cirrhosis 19 MOTHER FH: liver cancer 19 MOTHER FHx: lung cancer 19 FATHER Hypertension 19 FATHER 19 MOTHER Physical Exam Vital Signs Vital Signs - First Documented 01/05/21 15:19 Temp 36.4 Pulse 73 Resp 18 B/P (MAP) 193/105 (134) Pulse Ox 95 Capillary Refill : Height/Weight/BMI Height: 5'8.00" Weight: 201lbs. 0.8oz. 91.686604tv; 32.00 BMI Method:Stated General Appearance: WD/WN, no apparent distress, obese Neck: non-tender, full range of motion Respiratory: no respiratory distress, no accessory muscle use Cardiovascular: regular rate, rhythm, no murmur Gastrointestinal: normal bowel sounds, soft, tenderness Extremities: normal range of motion, non-tender Neurologic/Psychiatric: alert, normal mood/affect, oriented x 3 Skin: normal color, warm/dry Progress/Results/Core Measures Results/Orders Lab Results Laboratory Tests Test 01/05/21 15:18 01/05/21 15:32 Range/Units White Blood Count 9.5 4.3-11.0 10^3/uL Red Blood Count 4.47 3.80-5.11 10^6/uL Hemoglobin 12.9 11.5-16.0 g/dL Hematocrit 39 35-52 % Mean Corpuscular Volume 88 80-99 fL Mean Corpuscular Hemoglobin 29 25-34 pg Mean Corpuscular Hemoglobin Concent 33 32-36 g/dL Red Cell Distribution Width 13.2 10.0-14.5 % Platelet Count 237 130-400 10^3/uL Mean Platelet Volume 8.6 L 9.0-12.2 fL Immature Granulocyte % (Auto) 1 % Neutrophils (%) (Auto) 72 42-75 % Lymphocytes (%) (Auto) 18 12-44 % Monocytes (%) (Auto) 7 0-12 % Eosinophils (%) (Auto) 1 0-10 % Basophils (%) (Auto) 1 0-10 % Neutrophils # (Auto) 6.8 1.8-7.8 10^3/uL Lymphocytes # (Auto) 1.7 1.0-4.0 10^3/uL Monocytes # (Auto) 0.7 0.0-1.0 10^3/uL Eosinophils # (Auto) 0.1 0.0-0.3 10^3/uL Basophils # (Auto) 0.1 0.0-0.1 10^3/uL Immature Granulocyte # (Auto) 0.1 0.0-0.1 10^3/uL Sodium Level 136 135-145 MMOL/L Potassium Level 3.7 3.6-5.0 MMOL/L Chloride Level 92 L 98-107 MMOL/L Carbon Dioxide Level 29 21-32 MMOL/L Anion Gap 15 H 5-14 MMOL/L Blood Urea Nitrogen 8 7-18 MG/DL Creatinine 0.79 0.60-1.30 MG/DL Estimat Glomerular Filtration Rate > 60 BUN/Creatinine Ratio 10 Glucose Level 210 H 70-105 MG/DL Calcium Level 9.5 8.5-10.1 MG/DL Corrected Calcium 9.3 8.5-10.1 MG/DL Total Bilirubin 0.4 0.1-1.0 MG/DL Aspartate Amino Transf (AST/SGOT) 19 5-34 U/L Alanine Aminotransferase (ALT/SGPT) 29 0-55 U/L Alkaline Phosphatase 77 40-136 U/L C-Reactive Protein High Sensitivity 2.19 H 0.00-0.50 MG/DL Total Protein 7.8 6.4-8.2 GM/DL Albumin 4.3 3.2-4.5 GM/DL Urine Color YELLOW Urine Clarity CLEAR Urine pH 8.0 5-9 Urine Specific [place] 1.015 L 1.016-1.022 Urine Protein 1+ H NEGATIVE Urine Glucose (UA) NEGATIVE NEGATIVE Urine Ketones NEGATIVE NEGATIVE Urine Nitrite NEGATIVE NEGATIVE Urine Bilirubin NEGATIVE NEGATIVE Urine Urobilinogen 0.2 < = 1.0 MG/DL Urine Leukocyte Esterase NEGATIVE NEGATIVE Urine RBC (Auto) NEGATIVE NEGATIVE Urine RBC NONE /HPF Urine WBC NONE /HPF Urine Squamous Epithelial Cells 0-2 /HPF Urine Crystals NONE /LPF Urine Bacteria TRACE /HPF Urine Casts NONE /LPF Urine Mucus SMALL H /LPF Urine Culture Indicated NO My Orders Orders - EREN MCDONALD APRN Ct Abd/Pelvis Wo(Kidney Stone) (01/05/21 15:21) Ketorolac Injection (Toradol Injection) (01/05/21 16:00) Us Pelvic (Non Ob)[id number] (01/05/21 16:13) Hydromorphone Injection (Dilaudid Inject (01/05/21 17:15) Medications Given in ED Current Medications Medications Dose Ordered Sig/Tino Route Start Time Stop Time Status Last Admin Dose Admin Hydromorphone HCl 0.5 mg ONCE ONCE IV 01/05/21 17:15 01/05/21 17:16 DC 01/05/21 17:18 0.5 MG Ketorolac Tromethamine 15 mg ONCE ONCE IVP 01/05/21 16:00 01/05/21 16:01 DC 01/05/21 16:03 15 MG Vital Signs/I&O 01/05/21 01/05/21 15:19 17:42 Temp 36.4 36.4 Pulse 73 85 Resp 18 18 B/P (MAP) 193/105 (134) 165/97 (134) Pulse Ox 95 96 Diagnostic Imaging Diagonstic Imaging: CT Comments NAME: MAHNAZ VANCE [facility] REC#: [id number] PT STATUS: REG ER : 1965 PHYSICIAN: EREN MCDONALD APRN ADMIT DATE: 01/05/21/ER Draft Date of Exam:01/05/21 CT ABD/PELVIS WO(KIDNEY STONE) PROCEDURE: CT urinary tract, rule out kidney stone. TECHNIQUE: Multiple contiguous axial images were obtained through the abdomen and pelvis without the use of intravenous contrast. Auto Exposure Controls were utilized during the CT exam to meet ALARA standards for radiation dose reduction. INDICATION: Right lower quadrant abdominal pain. COMPARISON: 11/24/2020. FINDINGS: Included portions of the lung bases show background mild emphysematous disease. CT abdomen: No renal or ureteral calculi are seen on either side. Additionally, there is no hydronephrosis or other evidence of obstruction. No focal renal masses are seen on this noncontrast exam. The adrenal glands, spleen, pancreas, and liver have an unremarkable noncontrast CT appearance. There is no loculated fluid collection, free fluid, nor free air within the abdomen. No abnormal mesenteric or retroperitoneal adenopathy is seen. Osseous structures show no acute abnormalities. There is moderate diffuse calcified aortic and arterial atherosclerosis. CT pelvis: Urinary bladder is unopacified. No calculi are seen within urinary bladder. There is no loculated fluid collection, free fluid or free air within the pelvis. At least two cystic structures are identified within the right adnexa. These measure 1.8 x 3.2 cm and 3 x 2.6 cm. These are new since 10/11/2018. No abnormal pelvic adenopathy is seen. Osseous structures show no acute abnormalities. IMPRESSION: 1. Unremarkable noncontrast CT of the kidneys and renal collecting systems. 2. Multiple cystic structures within the right adnexa. Given patient's postmenopausal status, further characterization with pelvic sonogram is recommended. Dictated on workstation # [id number] Dict: 01/05/21 1601 Trans: 01/05/21 1610 [facility] [id number] Interpreted by: SANGEETHA ESTRADA MD Electronically signed by: Departure Communication (Admissions) NAME: MAHNAZ VANCE [facility] REC#: [id number] PT STATUS: REG ER : 1965 PHYSICIAN: EREN MCDONALD APRN ADMIT DATE: 01/05/21/ER Draft Date of Exam:01/05/21 US PELVIC (NON OB)[id number] PROCEDURE: US PELVIC (NON OB) TECHNIQUE: Multiple real-time grayscale images were obtained over the pelvis in various projections transabdominally. INDICATION: Cystic focus seen in the right adnexal region on CT imaging. FINDINGS: The uterus is absent. Left ovary is not visualized and also may be surgically absent. There is a complex cystic structure in the right adnexal region which likely resides within the ovary. This measures 9.2 x 9.1 x 6.9 cm and there is no evidence of internal blood flow. No free fluid is seen. IMPRESSION: Presumed hemorrhagic cyst in the right ovary. Other considerations include infected cyst or endometrioma. This could be further evaluated on follow-up study in 2-3 months. Dictated on workstation # [id number] Dict: 01/05/21 1719 Trans: 01/05/211721 [facility] [id number] Interpreted by: NANCY MC MD Electronically signed by: Impression Primary Impression: RLQ abdominal pain Additional Impression: Hemorrhagic cyst Disposition: 01 HOME, SELF-CARE Condition: Stable Departure-Patient Inst. Decision time for Depature: 15:57 Referrals: ROLANDO ANNA DENNIS G MD SHAW, ANGELA C DO STEWART, JULIE A MD (PCP/Family) Primary Care Physician Patient Instructions: Abdominal Pain, Adult ED Add. Discharge Instructions: 1. Follow-up with your doctor next week. Alternatively may follow-up with one of the gynecologists there numbers have been listed. Take the pain medication as directed and return to ER for any concerns. 2. Return to ER for any worsening 3. All discharge instructions reviewed with patient and/or family. Voiced understan radha. Scripts Hydrocodone/Acetaminophen (Hydrocodone-Acetamin 5-325 mg) 1 Each Tablet 1 TAB PO Q4H PRN for PAIN-MODERATE (5-7), #10 TAB Prov: EREN MCDONALD APRN 01/05/21 Copy Copies To 1: KAITLIN TURNER MD, PETER J APRN Jan 05, 2021 15:21
[2021-01-05 15:39] LABS: BILIRUBIN,URINE NEGATIVE (NEGATIVE); CLARITY,URINE CLEAR; COLOR,URINE YELLOW; GLUCOSE, URINE (UA) NEGATIVE (NEGATIVE); KETONES,URINE NEGATIVE (NEGATIVE); LEUKOCYTE ESTERASE ,URINE NEGATIVE (NEGATIVE); NITRITE,URINE NEGATIVE (NEGATIVE); PROTEIN,URINE 1+ (NEGATIVE)
[2021-01-05 15:41] LABS: ALBUMIN 4.3 GM/DL (3.2-4.5); CHLORIDE 92 MMOL/L (98-107); POTASSIUM 3.7 MMOL/L (3.6-5.0); SODIUM 136 MMOL/L (135-145)
[2021-01-05 15:42] LABS: CALCIUM 9.5 MG/DL (8.5-10.1)
[2021-01-05 15:43] LABS: GLUCOSE 210 MG/DL (70-105); TOTAL PROTEIN 7.8 GM/DL (6.4-8.2)
[2021-01-05 15:44] LABS: CARBON DIOXIDE 29 MMOL/L (21-32)
[2021-01-05 15:45] LABS: BILIRUBIN,TOTAL 0.4 MG/DL (0.1-1.0)
[2021-01-05 15:47] LABS: ALKALINE PHOSPHATASE 77 U/L (40-136); BASOPHILS # (AUTO) 0.1 10^3/uL (0.0-0.1); BASOPHILS % (AUTO) 1 % (0-10); CREATININE SERUM 0.79 MG/DL (0.60-1.30); EOSINOPHILS # (AUTO) 0.1 10^3/uL (0.0-0.3); EOSINOPHILS % (AUTO) 1 % (0-10); GFR ESTIMATED > 60; HEMATOCRIT 39 % (35-52); HEMOGLOBIN 12.9 g/dL (11.5-16.0); LYMPHOCYTES # (AUTO) 1.7 10^3/uL (1.0-4.0); LYMPHOCYTES % (AUTO) 18 % (12-44); MEAN CORPUSCULAR HEMOGLOBIN 29 pg (25-34); MEAN CORPUSCULAR HGB CONC 33 g/dL (32-36); MEAN CORPUSCULAR VOLUME 88 fL (80-99); MEAN PLATELET VOLUME 8.6 fL (9.0-12.2); MONOCYTES # (AUTO) 0.7 10^3/uL (0.0-1.0); MONOCYTES % (AUTO) 7 % (0-12); NEUTROPHILS # (AUTO) 6.8 10^3/uL (1.8-7.8); NEUTROPHILS % (AUTO) 72 % (42-75); PLATELET COUNT 237 10^3/uL (130-400); WHITE BLOOD COUNT 9.5 10^3/uL (4.3-11.0)
[2021-01-05 15:48] LABS: BUN/CREATININE RATIO 10
[2021-01-05 15:50] LABS: ALANINE AMINOTRANSFERASE 29 U/L (0-55)
[2021-01-05 15:52] LABS: BACTERIA,URINE TRACE /HPF; SQUAMOUS EPITHELIAL CELL,UR 0-2 /HPF
[2021-01-05] MEDS ORDERED: KETOROLAC 30 MG/ML VIAL IVP ONE (16:00)
--- NOTE | 2021-01-05 16:11 | Diagnostic Imaging Report ---
PROCEDURE: CT urinary tract, rule out kidney stone. TECHNIQUE: Multiple contiguous axial images were obtained through the abdomen and pelvis without the use of intravenous contrast. Auto Exposure Controls were utilized during the CT exam to meet ALARA standards for radiation dose reduction. INDICATION: Right lower quadrant abdominal pain. COMPARISON: 11/24/2020. FINDINGS: Included portions of the lung bases show background mild emphysematous disease. CT abdomen: No renal or ureteral calculi are seen on either side. Additionally, there is no hydronephrosis or other evidence of obstruction. No focal renal masses are seen on this noncontrast exam. The adrenal glands, spleen, pancreas, and liver have an unremarkable noncontrast CT appearance. There is no loculated fluid collection, free fluid, nor free air within the abdomen. No abnormal mesenteric or retroperitoneal adenopathy is seen. Osseous structures show no acute abnormalities. There is moderate diffuse calcified aortic and arterial atherosclerosis. CT pelvis: Urinary bladder is unopacified. No calculi are seen within urinary bladder. There is no loculated fluid collection, free fluid or free air within the pelvis. At least two cystic structures are identified within the right adnexa. These measure 1.8 x 3.2 cm and 3 x 2.6 cm. These are new since 10/11/2018. No abnormal pelvic adenopathy is seen. Osseous structures show no acute abnormalities. IMPRESSION: 1. Unremarkable noncontrast CT of the kidneys and renal collecting systems. 2. Multiple cystic structures within the right adnexa. Given patient's postmenopausal status, further characterization with pelvic sonogram is recommended. Dictated by: Dictated on workstation # [id number]
[2021-01-05] MEDS ORDERED: HYDROmorphone 2 MG/ML VIAL (DILAUDID) IV ONE (17:15)
--- NOTE | 2021-01-05 17:22 | Diagnostic Imaging Report ---
PROCEDURE: US PELVIC (NON OB) TECHNIQUE: Multiple real-time grayscale images were obtained over the pelvis in various projections transabdominally. INDICATION: Cystic focus seen in the right adnexal region on CT imaging. FINDINGS: The uterus is absent. Left ovary is not visualized and also may be surgically absent. There is a complex cystic structure in the right adnexal region which likely resides within the ovary. This measures 9.2 x 9.1 x 6.9 cm and there is no evidence of internal blood flow. No free fluid is seen. IMPRESSION: Presumed hemorrhagic cyst in the right ovary. Other considerations include infected cyst or endometrioma. This could be further evaluated on follow-up study in 2-3 months. Dictated by: Dictated on workstation # [id number]
[2021-01-05] MEDS ORDERED: ACHD5005 PO (17:27)
[2021-01-05 17:42] VITALS: BP 165/97
== END 2021-01-05 17:41 | disposition home or self-care (01) ==
LOC: EDUNIT# 15:12 → ER 15:14
DX: R10.31 Right lower quadrant pain (principal); J44.9 Chronic obstructive pulmonary disease, unspecified; F41.9 Anxiety disorder, unspecified; E78.00 Pure hypercholesterolemia, unspecified; I10 Essential (primary) hypertension; K21.9 Gastro-esophageal reflux disease without esophagitis; G89.29 Other chronic pain; M54.9 Dorsalgia, unspecified; Z88.8 Allergy status to other drugs, medicaments and biological substances; Z87.891 Personal history of nicotine dependence; Z82.49 Family history of ischemic heart disease and other diseases of the circulatory system; Z80.0 Family history of malignant neoplasm of digestive organs; Z80.1 Family history of malignant neoplasm of trachea, bronchus and lung; Z79.52 Long term (current) use of systemic steroids; Z79.891 Long term (current) use of opiate analgesic; Z79.82 Long term (current) use of aspirin
CPT/HCPCS: 36415; 74176; 76856; 80053; 81000; 85025; 86141

== ENCOUNTER → 2021-01-30 | Outpatient (CLI) | payer MEDICAID ==
[~2021-01-30] MED LIST changes: -DOCU-238 PO; +DOCU-241 PO
--- NOTE | 2021-01-31 13:08 | Diagnostic Imaging Report ---
INDICATION: Routine screening. COMPARISON: No prior mammograms are available for comparison. TECHNIQUE: 2D and 3D bilateral screening mammography was performed with CAD. FINDINGS: Both breasts are heterogeneously dense, limiting the sensitivity of mammography. There are scattered benign calcifications. No mass or malignant appearing microcalcifications are seen. The axillae are unremarkable. IMPRESSION: No mammographic features suspicious for malignancy are identified. ACR BI-RADS Category 2: Benign findings. Result letter will be mailed to the patient. Note: At least 10% of breast cancer is not imaged by mammography. Dictated by: Dictated on workstation # [id number]
== END ==
LOC: RAD 14:45
PROVIDERS: ATTEND Nurse Practitioner Family
DX: Z12.31 Encounter for screening mammogram for malignant neoplasm of breast (principal)
CPT/HCPCS: 77063; 77067

== ENCOUNTER 2021-02-24 05:33 | Outpatient (RCR) | payer MEDICAID ==
[~2021-02-24] VITALS: Ht 172.7 cm; Wt 105.5 kg
== END 2021-02-24 14:10 | disposition home or self-care (01) ==
LOC: PREOP 05:33
PROVIDERS: ATTEND Surgery
DX: Z01.812 Encounter for preprocedural laboratory examination (principal); R13.10 Dysphagia, unspecified; R19.4 Change in bowel habit; Z20.822 Contact with and (suspected) exposure to COVID-19
CPT/HCPCS: 87635

== ENCOUNTER → 2021-03-13 | Outpatient (CLI) | payer MEDICAID | LOC: CARD 13:00 | PROVIDERS: ATTEND Internal Medicine Cardiovascular Disease | DX: I10 Essential (primary) hypertension (principal); I25.10 Atherosclerotic heart disease of native coronary artery without angina pectoris | CPT/HCPCS: 93306 ==

== ENCOUNTER 2021-03-22 15:02 | Outpatient (RCR) | payer MEDICAID ==
[~2021-03-22 15:02] MED LIST changes: -DOCU-241 PO; +DOCU-26 PO; -OMEP40CA27 PO; +OMEP40CA6 PO
== END 2021-03-22 16:18 | disposition home or self-care (01) ==
PROVIDERS: ATTEND Surgery
DX: Z53.9 Procedure and treatment not carried out, unspecified reason (principal)

== ENCOUNTER 2021-04-08 13:24 | Emergency (ER) | payer MEDICAID ==
[~2021-04-08] VITALS: Ht 154 cm; Wt 102.0 kg
--- NOTE | 2021-04-08 14:07 | ED General ---
General Stated Complaint: DIZZINESS Source of Information: Patient Exam Limitations: No Limitations History of Present Illness Date Seen by Provider: Apr 08, 2021 Time Seen by Provider: 13:40 Initial Comments Patient is a 55-year-old female who presents to the emergency room with a chief complaint of dizziness. She states yesterday she had a little bit of symptoms but nothing as severe as this morning. Patient states she got up to go to the bathroom and felt dizzy and lightheaded. When she sat down her symptoms kind of abated. She went out to go sit on her porch when she had a recurrence of symptoms that included nausea sweating and feeling like she might pass out. Patient states that she is on Rybelsus for diabetes for the last month. She is also on hydrochlorothiazide and lisinopril. She states these are new medications for her blood pressure. She is also on a beta-prema. Patient states that she is concerned about her potassium because she has read and heard from her [employer] support group that potassium can go up on Rybelsus. Patient denies any symptoms of illness such as fevers, chills, cough or congestion. No Covid concerns. She is not Covid vaccinated. No sick contacts. She has had some constipation issues. No burning with urination but increased urinary frequency on her medications. No swelling in her extremities. All other review of systems reviewed and negative except as stated. Severity: Moderate Modifying Factors: worse with Movement Associated Systoms: Nausea/Vomiting, Syncope (Near syncope) Allergies and Home Medications Allergies Coded Allergies: buspirone HCl (Verified Allergy, Unknown, 10/11/18) etodolac (Verified Allergy, Unknown, 10/11/18) trazodone (Verified Allergy, Unknown, 10/25/20) Neuromuscular Blockers, Steroidal (Verified Adverse Reaction, Unknown, 10/11/18) gabapentin (Verified Adverse Reaction, Unknown, 10/11/18) Home Medications Albuterol Sulfate 1 Puff Puff, 2 PUFF INH QID PRN for SHORTNESS OF BREATH, (Reported) Albuterol Sulfate 2.5 Mg/3 Ml Vial.neb, 2.5 MG NEB Q4H PRN for SHORTNESS OF BREATH, (Reported) Alprazolam 0.5 Mg Tablet, 0.5 MG PO TID PRN for ANXIETY, (Reported) Amlodipine Besylate 10 Mg Tablet, 10 MG PO DAILY, (Reported) Aspirin 325 Mg Tablet.dr, 325 MG PO DAILY, (Reported) Atenolol 50 Mg Tablet, 50 MG PO HS, (Reported) Cetirizine HCl 10 Mg Tablet, 10 MG PO DAILY PRN for ALLERGY SYMPTOMS, (Reported) Cholecalciferol (Vitamin D3) 125 Mcg Tablet, 125 MCG PO DAILY, (Reported) Clonidine HCl 0.1 Mg Tablet, 0.1 MG PO TID, (Reported) Dicyclomine HCl 10 Mg Capsule, 20 MG PO TID Prescribed by: YRIS GEORGE on 11/02/20 1110 Diphenhydramine HCl 25 Mg Capsule, 25 MG PO Q6H PRN for ALLERGY SYMPTOMS, (Reported) Docusate Sodium 100 Mg Capsule, 100 MG PO BID, (Reported) Enalapril Maleate 20 Mg Tablet, 10 MG PO BID, (Reported) TAKES OF A 20MG TAB Ezetimibe 10 Mg Tablet, 10 MG PO DAILY, (Reported) Fluconazole 150 Mg Tablet, 150 MG PO ONCE Take 1 pill on day 1, repeat 1 week later. Prescribed by: KRYSTIAN TY on 04/08/21 1515 Fluticasone Propion/Salmeterol 1 Each Blst.w.dev, 1 PUFF INH Q12H, (Reported) Fluticasone Propionate 16 Gm [place].susp, 1 SPRAY NSEACH BID, (Reported) Folic Acid 1 Mg Tablet, 1 MG PO DAILY, (Reported) Guaifenesin/Dextromethorphan 1 Each Tab.er.12h, 1-2 EACH PO Q12H PRN for COUGH/CONGESTION, (Reported) Hydrocodone/Acetaminophen 1 Each Tablet, 1 TAB PO Q4H PRN for PAIN-MODERATE (5- 7) Prescribed by: EREN MDCONALD on 01/05/21 1728 Mag Hydrox/Al Hydrox/Simeth 30 Ml Oral.susp, 20-30 ML PO QID PRN for INDIGESTION, (Reported) Nystatin 100,000 Unit/1 Ml Oral.susp, 5 ML PO QID Prescribed by: YRIS GEORGE on 11/02/20 1110 [place]-3/Dha/Epa/Fish Oil 1 Each Capsule, 1 EA PO TID, (Reported) Omeprazole 20 Mg Capsule.dr, 20 MG PO DAILY, (Reported) Ondansetron 4 Mg Tab.rapdis, 4 MG PO DAILY, (Reported) Oxymetazoline HCl 15 Ml Mist, 2-3 SPRAYS NSEACH Q12H PRN for CONGESTION, (Reported) Pantoprazole Sodium 40 Mg Tablet.dr, 40 MG PO DAILY Prescribed by: YRIS GEORGE on 11/02/20 1110 Prednisone 20 Mg Tab, 30 MG PO DAILY@0700 Prescribed by: YRIS GEORGE on 11/02/20 1110 Simethicone 125 Mg Tab.chew, 2 TAB PO BID PRN for GAS, (Reported) Sodium Chloride 30 Ml [place], 2 SPRAYS NSEACH PRN PRN for DRY/CONGESTED NOSE, (Reported) Patient Home Medication List Home Medication List Reviewed: Yes Review of Systems Review of Systems Constitutional: see HPI EENTM: other (Dizziness) Respiratory: short of breath (With the dizziness) Cardiovascular: no symptoms reported Gastrointestinal: nausea Genitourinary: other (vaginal itching and rash) Musculoskeletal: no symptoms reported Skin: no symptoms reported Psychiatric/Neurological: Other (Dizziness) All Other Systems Reviewed Negative Unless Noted: Yes Past Nkipgcr-[id number]-Wezfga Hx Immunizations Up To Date Tetanus Booster (TDap): Unknown Seasonal Allergies Seasonal Allergies: Yes Past Medical History Surgeries: Yes (pericardial window, c/s x2lung thoracensis) Abdominal, Appendectomy, Cardiac, Section, Gallbladder, Hysterectomy, Oophorectomy Respiratory: Yes (O2 @ 1.5-2L) Asthma, Pneumonia, Pulmonary Embolism, Sleep Apnea, COPD, Emphysema Currently Using CPAP: No Currently Using BIPAP: Yes Cardiac: Yes (Pericardial effusion-S/P PERICARDIAL WINDOW 08/2017) High Cholesterol, Hypertension Neurological: Yes (PSEUDO SEIZURES ) Seizure Disorder 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 Disorders: Yes Female 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 Disorders: Ovarian Cyst ANALYSIS LEAD History: Hysterectomy, 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, Menopausal Genitourinary: No Gastrointestinal: Yes Abdominal Hernia, Gastroesophageal Reflux, Diverticulosis, Hiatal Hernia, Ulcer, Irritable Bowel Musculoskeletal: Yes (CHRONIC KNEE AND HIP PAIN, SPINAL STENOSIS) Degenerate Disk Disease, Osteoporosis, Arthritis, Chronic Back Pain Endocrine: Yes Diabetes, Non-Insulin dep HEENT: Yes Cataract Cancer: No Psychosocial: Yes Pseudo Seizures, Anxiety, Depression Integumentary: Yes Eczema Blood Disorders: No Adverse Reaction/Blood Tranf: No Family Medical History FH: cirrhosis 19 MOTHER FH: liver cancer 19 MOTHER FHx: lung cancer 19 FATHER Hypertension 19 FATHER 19 MOTHER Physical Exam Vital Signs Vital Signs - First Documented 04/08/21 13:24 Temp 36.0 Pulse 114 Resp 18 B/P (MAP) 140/86 (104) Capillary Refill : Height, Weight, BMI Height: 5'8.00" Weight: 201lbs. 0.8oz. 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 Norm as Tested Skin: Normal Color, Warm/Dry Progress/Results/Core Measures Suspected Sepsis SIRS Temperature: Pulse: Respiratory Rate: Laboratory Tests 04/08/21 13:59: White Blood Count 10.6 Blood Pressure / Mean: Laboratory Tests 04/08/21 13:59: Creatinine 0.93, Platelet Count 277 Results/Orders Lab Results Laboratory Tests Test 04/08/21 13:59 Range/Units White Blood Count 10.6 4.3-11.0 10^3/uL Red Blood Count 4.67 3.80-5.11 10^6/uL Hemoglobin 13.4 11.5-16.0 g/dL Hematocrit 39 35-52 % Mean Corpuscular Volume 84 80-99 fL Mean Corpuscular Hemoglobin 29 25-34 pg Mean Corpuscular Hemoglobin Concent 34 32-36 g/dL Red Cell Distribution Width 12.7 10.0-14.5 % Platelet Count 277 130-400 10^3/uL Mean Platelet Volume 8.6 L 9.0-12.2 fL Immature Granulocyte % (Auto) 1 % Neutrophils (%) (Auto) 74 42-75 % Lymphocytes (%) (Auto) 17 12-44 % Monocytes (%) (Auto) 7 0-12 % Eosinophils (%) (Auto) 1 0-10 % Basophils (%) (Auto) 1 0-10 % Neutrophils # (Auto) 7.8 1.8-7.8 10^3/uL Lymphocytes # (Auto) 1.8 1.0-4.0 10^3/uL Monocytes # (Auto) 0.7 0.0-1.0 10^3/uL Eosinophils # (Auto) 0.1 0.0-0.3 10^3/uL Basophils # (Auto) 0.1 0.0-0.1 10^3/uL Immature Granulocyte # (Auto) 0.1 0.0-0.1 10^3/uL Sodium Level 133 L 135-145 MMOL/L Potassium Level 4.2 3.6-5.0 MMOL/L Chloride Level 93 L 98-107 MMOL/L Carbon Dioxide Level 25 21-32 MMOL/L Anion Gap 15 H 5-14 MMOL/L Blood Urea Nitrogen 13 7-18 MG/DL Creatinine 0.93 0.60-1.30 MG/DL Estimat Glomerular Filtration Rate > 60 BUN/Creatinine Ratio 14 Glucose Level 162 H 70-105 MG/DL Calcium Level 9.6 8.5-10.1 MG/DL My Orders Orders - KRYSTIAN TY MD Cbc With Automated Diff (04/08/21 13:59) Basic Metabolic Panel (04/08/21 13:59) Ed Iv/Invasive Line Start (04/08/21 13:59) Vital Signs/I&O 04/08/21 13:24 Temp 36.0 Pulse 114 Resp 18 B/P (MAP) 140/86 (104) Capillary Refill : Progress Note : Time: 14:08 Progress Note I did check orthostatic blood pressures on the patient from sitting to standing and she had no significant decrease in her blood pressure. No symptomatology with standing at the bedside. 1515 Patient looks well is basically asymptomatic. Labs have been reviewed, she has a very minimally depressed sodium level. Potassium is normal renal function is normal. Patient is not anemic. Vital signs are stable. She is not hypotensive. No acute neurological deficits. No current concerns for acute ischemic stroke. Patient is sent home with a prescription for Diflucan for vaginal yeast infection. She has follow-up arranged with her primary care physician on Saturday of next week at 3 PM. She is encouraged to keep this appointment, she is given good return precautions. She verbalizes und erstanding. All questions are sought and answered. Patient is stable for discharge. Departure Impression Primary Impression: Vaginal candidiasis Additional Impression: Dizziness Disposition: 01 HOME, SELF-CARE Condition: Stable Departure-Patient Inst. Decision time for Depature: 15:13 Referrals: NO,LOCAL PHYSICIAN (PCP/Family) Primary Care Physician Patient Instructions: Yeast Infection (DC), Dizziness, Adult ED Add. Discharge Instructions: Please continue to drink plenty of fluids to stay well-hydrated. Be careful with going from a sitting to standing position as this may cause you to feel dizzy. Keep your follow-up appointment with your primary care provider at 3:00 on Saturday. Come back to the emergency room for any new, concerning or emergent complaints. I have sent a prescription for Diflucan which is a treatment for yeast infection to the [facility] pharmacy. Scripts Fluconazole (Diflucan) 150 Mg Tablet 150 MG PO ONCE, #2 TAB Take 1 pill on day 1, repeat 1 week later. Prov: KRYSTIAN TY MD 04/08/21 KRYSTIAN TY MD Apr 08, 2021 14:06
[2021-04-08 14:23] LABS: CHLORIDE 93 MMOL/L (98-107); POTASSIUM 4.2 MMOL/L (3.6-5.0); SODIUM 133 MMOL/L (135-145)
[2021-04-08 14:24] LABS: BASOPHILS # (AUTO) 0.1 10^3/uL (0.0-0.1); BASOPHILS % (AUTO) 1 % (0-10); EOSINOPHILS # (AUTO) 0.1 10^3/uL (0.0-0.3); EOSINOPHILS % (AUTO) 1 % (0-10); HEMATOCRIT 39 % (35-52); HEMOGLOBIN 13.4 g/dL (11.5-16.0); LYMPHOCYTES # (AUTO) 1.8 10^3/uL (1.0-4.0); LYMPHOCYTES % (AUTO) 17 % (12-44); MEAN CORPUSCULAR HEMOGLOBIN 29 pg (25-34); MEAN CORPUSCULAR HGB CONC 34 g/dL (32-36); MEAN CORPUSCULAR VOLUME 84 fL (80-99); MEAN PLATELET VOLUME 8.6 fL (9.0-12.2); MONOCYTES # (AUTO) 0.7 10^3/uL (0.0-1.0); MONOCYTES % (AUTO) 7 % (0-12); NEUTROPHILS # (AUTO) 7.8 10^3/uL (1.8-7.8); NEUTROPHILS % (AUTO) 74 % (42-75); PLATELET COUNT 277 10^3/uL (130-400); WHITE BLOOD COUNT 10.6 10^3/uL (4.3-11.0)
[2021-04-08 14:25] LABS: CALCIUM 9.6 MG/DL (8.5-10.1); GLUCOSE 162 MG/DL (70-105)
[2021-04-08 14:27] LABS: CARBON DIOXIDE 25 MMOL/L (21-32)
[2021-04-08 14:29] LABS: CREATININE SERUM 0.93 MG/DL (0.60-1.30); GFR ESTIMATED > 60
[2021-04-08 14:30] LABS: BUN/CREATININE RATIO 14
[2021-04-08] MEDS ORDERED: FLUC150T PO (15:15)
[2021-04-08 15:31] VITALS: BP 140/90
== END 2021-04-08 15:31 | disposition home or self-care (01) ==
LOC: EDUNIT# 13:34 → ER 13:37
DX: B37.3 Candidiasis of vulva and vagina (principal); R42 Dizziness and giddiness; J44.9 Chronic obstructive pulmonary disease, unspecified; I10 Essential (primary) hypertension; E11.9 Type 2 diabetes mellitus without complications; K21.9 Gastro-esophageal reflux disease without esophagitis; E78.00 Pure hypercholesterolemia, unspecified; F41.9 Anxiety disorder, unspecified; G89.29 Other chronic pain; M54.9 Dorsalgia, unspecified; Z79.899 Other long term (current) drug therapy; Z79.891 Long term (current) use of opiate analgesic; Z79.52 Long term (current) use of systemic steroids; Z79.82 Long term (current) use of aspirin
CPT/HCPCS: 36415; 80048; 85025

== ENCOUNTER 2021-05-06 13:52 | Emergency (ER) | payer MEDICAID ==
[~2021-05-06] VITALS: Ht 172.7 cm; Wt 100.7 kg
[~2021-05-06 13:52] MED LIST changes: +FLUC150T PO
[2021-05-06 14:13] LABS: BASOPHILS # (AUTO) 0.1 10^3/uL (0.0-0.1); BASOPHILS % (AUTO) 1 % (0-10); EOSINOPHILS # (AUTO) 0.1 10^3/uL (0.0-0.3); EOSINOPHILS % (AUTO) 1 % (0-10); HEMATOCRIT 40 % (35-52); HEMOGLOBIN 13.3 g/dL (11.5-16.0); LYMPHOCYTES % (AUTO) 20 % (12-44); MEAN CORPUSCULAR HEMOGLOBIN 28 pg (25-34); MEAN CORPUSCULAR HGB CONC 33 g/dL (32-36); MEAN CORPUSCULAR VOLUME 85 fL (80-99); MEAN PLATELET VOLUME 8.3 fL (9.0-12.2); MONOCYTES # (AUTO) 0.6 10^3/uL (0.0-1.0); MONOCYTES % (AUTO) 6 % (0-12); NEUTROPHILS # (AUTO) 7.4 10^3/uL (1.8-7.8); NEUTROPHILS % (AUTO) 72 % (42-75); PLATELET COUNT 288 10^3/uL (130-400); WHITE BLOOD COUNT 10.2 10^3/uL (4.3-11.0)
--- NOTE | 2021-05-06 14:14 | ED Abdominal Pain ---
General Chief Complaint: Abdominal/GI Problems Stated Complaint: ABD PAIN Source of Information: Patient Exam Limitations: No Limitations History of Present Illness Date Seen by Provider: May 06, 2021 Time Seen by Provider: 13:49 Initial Comments Patient to the ER by EMS from home with chief complaint that she is having some epigastric abdominal pain off and on for the past week. It has abated right now. She has nausea comes and goes and still having some nausea but she ran out of Zofran this morning. She has not been able to pass a bowel movement for the past week. She says her appetite has been poor and she has had early satiety and last oral intake was this morning at breakfast. She has a history of type 2 diabetes and her blood sugars have been getting up over 200. She was recently started a month and a half ago on Ozempic and since that time has had GI symptoms including bloating, pain and constipation. She quit taking it 4 days ago because she felt that the symptoms are related to the medication. She does not have a gallbladder or appendix. She has not had any diarrhea or bloody stools. She has had hysterectomy. History of paroxysmal atrial fibrillation. She has a history of a pericardial effusion status post pericardial window. She has a history of DVT and [id number]- VASc score of 2 on aspirin. Hypertension and COPD on 2 L of oxygen at baseline. Echocardiogram 1 month ago showing grade 1 diastolic [address] Known to Dr. Campbell and Dr. George. Allergies and Home Medications Allergies Coded Allergies: buspirone HCl (Verified Allergy, Unknown, 10/11/18) etodolac (Verified Allergy, Unknown, 10/11/18) trazodone (Verified Allergy, Unknown, 10/25/20) Neuromuscular Blockers, Steroidal (Verified Adverse Reaction, Unknown, 10/11/18) gabapentin (Verified Adverse Reaction, Unknown, 10/11/18) Home Medications Albuterol Sulfate 1 Puff Puff, 2 PUFF INH QID PRN for SHORTNESS OF BREATH, (Reported) Albuterol Sulfate 2.5 Mg/3 Ml Vial.neb, 2.5 MG NEB Q4H PRN for SHORTNESS OF BREATH, (Reported) Alprazolam 0.5 Mg Tablet, 0.5 MG PO TID PRN for ANXIETY, (Reported) Amlodipine Besylate 10 Mg Tablet, 10 MG PO DAILY, (Reported) Aspirin 325 Mg Tablet.dr, 325 MG PO DAILY, (Reported) Atenolol 50 Mg Tablet, 50 MG PO HS, (Reported) Cetirizine HCl 10 Mg Tablet, 10 MG PO DAILY PRN for ALLERGY SYMPTOMS, (Reported) Cholecalciferol (Vitamin D3) 125 Mcg Tablet, 125 MCG PO DAILY, (Reported) Clonidine HCl 0.1 Mg Tablet, 0.1 MG PO TID, (Reported) Dicyclomine HCl 10 Mg Capsule, 20 MG PO TID Prescribed by: YRIS GEORGE on 11/02/20 1110 Diphenhydramine HCl 25 Mg Capsule, 25 MG PO Q6H PRN for ALLERGY SYMPTOMS, (Reported) Docusate Sodium 100 Mg Capsule, 100 MG PO BID, (Reported) Enalapril Maleate 20 Mg Tablet, 10 MG PO BID, (Reported) TAKES OF A 20MG TAB Ezetimibe 10 Mg Tablet, 10 MG PO DAILY, (Reported) Fluconazole 150 Mg Tablet, 150 MG PO ONCE Take 1 pill on day 1, repeat 1 week later. Prescribed by: KRYSTIAN TY on 04/08/21 1515 Fluticasone Propion/Salmeterol 1 Each Blst.w.dev, 1 PUFF INH Q12H, (Reported) Fluticasone Propionate 16 Gm [place].susp, 1 SPRAY NSEACH BID, (Reported) Folic Acid 1 Mg Tablet, 1 MG PO DAILY, (Reported) Guaifenesin/Dextromethorphan 1 Each Tab.er.12h, 1-2 EACH PO Q12H PRN for COUGH/CONGESTION, (Reported) Hydrocodone/Acetaminophen 1 Each Tablet, 1 TAB PO Q4H PRN for PAIN-MODERATE (5- 7) Prescribed by: EREN MCDONALD on 01/05/21 1728 Mag Hydrox/Al Hydrox/Simeth 30 Ml Oral.susp, 20-30 ML PO QID PRN for INDIGESTION, (Reported) Nystatin 100,000 Unit/1 Ml Oral.susp, 5 ML PO QID Prescribed by: YRIS GEORGE on 11/02/20 1110 Worden-3/Dha/Epa/Fish Oil 1 Each Capsule, 1 EA PO TID, (Reported) Omeprazole 20 Mg Capsule.dr, 20 MG PO DAILY, (Reported) Ondansetron 4 Mg Tab.rapdis, 4 MG PO DAILY, (Reported) Oxymetazoline HCl 15 Ml Mist, 2-3 SPRAYS NSEACH Q12H PRN for CONGESTION, (Reported) Pantoprazole Sodium 40 Mg Tablet.dr, 40 MG PO DAILY Prescribed by: YRIS GEORGE on 11/02/20 1110 Prednisone 20 Mg Tab, 30 MG PO DAILY@0700 Prescribed by: YRIS GEORGE on 11/02/20 1110 Simethicone 125 Mg Tab.chew, 2 TAB PO BID PRN for GAS, (Reported) Sodium Chloride 30 Ml [place], 2 SPRAYS NSEACH PRN PRN for DRY/CONGESTED NOSE, (Reported) Patient Home Medication List Home Medication List Reviewed: Yes Review of Systems Review of Systems Constitutional: No chills, No diaphoresis, No malaise EENTM: No Blurred Vision, No Double Vision Respiratory: Denies Cough, Denies Shortness of Air Cardiovascular: Chest Pain; Denies Edema, Denies Lightheadedness Gastrointestinal: Denies Constipated, Denies Diarrhea; Nausea, Poor Appetite, Poor Fluid Intake, Vomiting Genitourinary: Denies Burning, Denies Discharge Musculoskeletal: No back pain, No joint pain All Other Systems Reviewed Negative Unless Noted: Yes Past Jqrefrz-Rnshhi-Lgnhxb Hx Patient Social History Tobacco Use?: No Use of E-Cig and/or Vaping dev: No Substance use?: No Immunizations Up To Date Tetanus Booster (TDap): Unknown Seasonal Allergies Seasonal Allergies: Yes Past Medical History Surgeries: Yes (pericardial window, c/s x2lung thoracensis) Abdominal, Appendectomy, Cardiac, Section, Gallbladder, Hysterectomy, Oophorectomy Respiratory: Yes (O2 @ 1.5-2L) Asthma, Pneumonia, Pulmonary Embolism, Sleep Apnea, COPD, Emphysema Currently Using CPAP: No Currently Using BIPAP: Yes Cardiac: Yes (Pericardial effusion-S/P PERICARDIAL WINDOW 08/2017) High Cholesterol, Hypertension Neurological: Yes (PSEUDO SEIZURES ) Seizure Disorder 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 Disorders: Yes Female 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 Disorders: Ovarian Cyst [employer] History: Hysterectomy, 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, Menopausal Genitourinary: No Gastrointestinal: Yes Abdominal Hernia, Gastroesophageal Reflux, Diverticulosis, Hiatal Hernia, Ulcer, Irritable Bowel Musculoskeletal: Yes (CHRONIC KNEE AND HIP PAIN, SPINAL STENOSIS) Degenerate Disk Disease, Osteoporosis, Arthritis, Chronic Back Pain Endocrine: Yes Diabetes, Non-Insulin dep HEENT: Yes Cataract Cancer: No Psychosocial: Yes Pseudo Seizures, Anxiety, Depression Integumentary: Yes Eczema Blood Disorders: No Adverse Reaction/Blood Tranf: No Family Medical History FH: cirrhosis 19 MOTHER FH: liver cancer 19 MOTHER FHx: lung cancer 19 FATHER Hypertension 19 FATHER 19 MOTHER Physical Exam Vital Signs Vital Signs - First Documented 05/06/21 14:07 Temp 36.3 Pulse 93 Resp 17 B/P (MAP) 163/101 (121) Pulse Ox 96 O2 Delivery Room Air O2 Flow Rate 2.00 Capillary Refill : Height/Weight/BMI Height: 5'8.00" Weight: 201lbs. 0.8oz. 91.248808kp; 43.00 BMI Method:Stated General Appearance: WD/WN, mild distress HEENT: PERRL/EOMI, pharynx normal Neck: full range of motion, normal inspection Respiratory: lungs clear, normal breath sounds, no respiratory distress, no accessory muscle use Cardiovascular: normal peripheral pulses, regular rate, rhythm, no edema Peripheral Pulses: 2+ Radial Pulses (R), 2+ Radial Pulses (L) Gastrointestinal: normal bowel sounds, non tender Neurologic/Psychiatric: alert, normal mood/affect, oriented x 3 Skin: normal color, warm/dry Progress/Results/Core Measures Results/Orders Lab Results Laboratory Tests Test 05/06/21 14:03 05/06/21 15:02 Range/Units White Blood Count 10.2 4.3-11.0 10^3/uL Red Blood Count 4.70 3.80-5.11 10^6/uL Hemoglobin 13.3 11.5-16.0 g/dL Hematocrit 40 35-52 % Mean Corpuscular Volume 85 80-99 fL Mean Corpuscular Hemoglobin 28 25-34 pg Mean Corpuscular Hemoglobin Concent 33 32-36 g/dL Red Cell Distribution Width 13.3 10.0-14.5 % Platelet Count 288 130-400 10^3/uL Mean Platelet Volume 8.3 L 9.0-12.2 fL Immature Granulocyte % (Auto) 1 % Neutrophils (%) (Auto) 72 42-75 % Lymphocytes (%) (Auto) 20 12-44 % Monocytes (%) (Auto) 6 0-12 % Eosinophils (%) (Auto) 1 0-10 % Basophils (%) (Auto) 1 0-10 % Neutrophils # (Auto) 7.4 1.8-7.8 10^3/uL Lymphocytes # (Auto) 2.0 1.0-4.0 10^3/uL Monocytes # (Auto) 0.6 0.0-1.0 10^3/uL Eosinophils # (Auto) 0.1 0.0-0.3 10^3/uL Basophils # (Auto) 0.1 0.0-0.1 10^3/uL Immature Granulocyte # (Auto) 0.1 0.0-0.1 10^3/uL Sodium Level 139 135-145 MMOL/L Potassium Level 3.8 3.6-5.0 MMOL/L Chloride Level 94 L 98-107 MMOL/L Carbon Dioxide Level 25 21-32 MMOL/L Anion Gap 20 H 5-14 MMOL/L Blood Urea Nitrogen 10 7-18 MG/DL Creatinine 1.14 0.60-1.30 MG/DL Estimat Glomerular Filtration Rate 49 BUN/Creatinine Ratio 9 Glucose Level 201 H 70-105 MG/DL Calcium Level 9.9 8.5-10.1 MG/DL Corrected Calcium 9.6 8.5-10.1 MG/DL Total Bilirubin 0.4 0.1-1.0 MG/DL Aspartate Amino Transf (AST/SGOT) 19 5-34 U/L Alanine Aminotransferase (ALT/SGPT) 34 0-55 U/L Alkaline Phosphatase 85 40-136 U/L Troponin I < 0.028 <0.028 NG/ML C-Reactive Protein High Sensitivity 2.77 H 0.00-0.50 MG/DL Total Protein 8.2 6.4-8.2 GM/DL Albumin 4.4 3.2-4.5 GM/DL Lipase 20 8-78 U/L Urine Color YELLOW Urine Clarity CLEAR Urine pH 6.0 5-9 Urine Specific [place] 1.015 L 1.016-1.022 Urine Protein NEGATIVE NEGATIVE Urine Glucose (UA) NEGATIVE NEGATIVE Urine Ketones NEGATIVE NEGATIVE Urine Nitrite NEGATIVE NEGATIVE Urine Bilirubin NEGATIVE NEGATIVE Urine Urobilinogen 0.2 < = 1.0 MG/DL Urine Leukocyte Esterase NEGATIVE NEGATIVE Urine RBC (Auto) NEGATIVE NEGATIVE Urine RBC NONE /HPF Urine WBC 2-5 /HPF Urine Squamous Epithelial Cells 10-25 H /HPF Urine Crystals NONE /LPF Urine Bacteria FEW H /HPF Urine Casts PRESENT /LPF Urine Hyaline Casts 2-5 H /LPF Urine Mucus NEGATIVE /LPF Urine Culture Indicated NO My Orders Orders - SHAI ALVAREZ Ct Abdomen/Pelvis W (05/06/21 14:03) Ed Iv/Invasive Line Start (05/06/21 14:03) Ns Iv 1000 Ml (Sodium Chloride 0.9%) (05/06/21 14:15) Cbc With Automated Diff (05/06/21 14:03) Comprehensive Metabolic Panel (05/06/21 14:03) Lipase (05/06/21 14:03) Hs C Reactive Protein (05/06/21 14:03) Ua Culture If Indicated (05/06/21 14:03) Ondansetron Injection (Zofran Injectio (05/06/21 14:15) Fentanyl Inj (Sublimaze Injection) (05/06/21 14:15) Continuous Ekg Monitoring (05/06/21 14:03) Ekg Tracing (05/06/21 14:03) Chest 1 View, Ap/Pa Only (05/06/21 14:03) Troponin I (05/06/21 14:03) Aspirin Chewable Tablet (Baby Aspirin Ch (05/06/21 14:15) Diatrizoate Meglum/Sodium 37% (Gastrogra (05/06/21 16:15) Medications Given in ED Current Medications Medications Dose Ordered Sig/Tino Route Start Time Stop Time Status Last Admin Dose Admin Aspirin 324 mg ONCE ONCE PO 05/06/21 14:15 05/06/21 14:16 DC 05/06/21 14:26 324 MG Diatrizoate Meglum/ Diatrizoate Sod 30 ml ONCE ONCE PO 05/06/21 16:15 05/06/21 16:16 DC 05/06/21 16:04 30 ML Fentanyl Citrate 50 mcg ONCE ONCE IVP 05/06/21 14:15 05/06/21 14:16 DC 05/06/21 14:24 50 MCG Iohexol 100 ml ONCE ONCE IV 05/06/21 15:30 05/06/21 15:41 DC 05/06/21 15:26 100 ML Ondansetron HCl 8 mg ONCE ONCE IVP 05/06/21 14:15 05/06/21 14:16 DC 05/06/21 14:23 8 MG Sodium Chloride 100 ml ONCE ONCE IV 05/06/21 15:30 05/06/21 15:41 DC 05/06/21 15:27 80 ML Vital Signs/I&O 05/06/21 14:07 Temp 36.3 Pulse 93 Resp 17 B/P (MAP) 163/101 (121) Pulse Ox 96 O2 Delivery Room Air O2 Flow Rate 2.00 Progress Progress Note #1: Time: 14:16 Progress Note A lot of her symptoms of constipation, poor appetite, early satiety, nausea and vomiting can be from the Ozempic. Because of her significant abdominal discomfort however plan to give her some pain medicine, nausea medicine, a liter of fluids and a CT of the abdomen pelvis with IV and oral contrast if possible. Rule out bowel obstruction. Aspirin, troponin EKG. Progress Note #2: Time: 16:57 Progress Note Patient is much more comfortable. Her pain went away her nausea is gone. We will get her some nausea medicine. She has a history of an ulcer being treated by Dr. Villegas and has a repeat endoscopy in a couple months. She is already on Carafate and omeprazole. This is probably what is causing her epigastric pain as her troponin and other exam was unremarkable. She has a mass which is being followed by [employer] oncology at [facility]. She had an MRI 2 months ago. She has plans for a follow-up MRI of the pelvis in August. We will forward the CT imaging to [facility] in case they want to review it. Patient's questions were answered and return precautions were reviewed. Initial ECG Impression Date: May 06, 2021 Initial ECG Impression Time: 14:13 Initial ECG Rate: 75 Initial ECG Rhythm: Normal Sinus Initial ECG Intervals: Normal Initial ECG Impression: Normal Comment Normal sinus rhythm without clinically relevant ST changes. Diagnostic Imaging Diagonstic Imaging: Xray Plain Films/CT/US/NM/MRI: chest Comments [facility] [place], [place] NAME: MAHNAZ VANCE [facility] REC#: [id number] PT STATUS: REG ER : 1965 PHYSICIAN: SHAI ALVAREZ MD ADMIT DATE: 05/06/21/ER Signed Date of Exam:05/06/21 CHEST 1 VIEW, AP/PA ONLY EXAMINATION: Chest 1 view HISTORY: Chest pain COMPARISON: 11/02/2020 FINDINGS: Heart size and pulmonary vasculature are normal. The lungs are clear without consolidation, pleural effusion, or pneumothorax. The osseous structures are intact. IMPRESSION: 1. No acute radiographic abnormality in the chest. Dictated by: Dictated on workstation # [id number] Dict: 05/06/21 1443 Trans: 05/06/21 1452 [facility] [id number] Interpreted by: ROLANDO HUERTA DO Electronically signed by: ROLANDO HUERTA DO 05/06/21 1452 Reviewed: Reviewed by Wy Diagonstic Imaging: CT (With IV and oral contrast) Plain Films/CT/US/NM/MRI: abdomen, pelvis Comments [facility] [place] [place] NAME: MAHNAZ VANCE [facility] REC#: [id number] PT STATUS: REG ER : 1965 PHYSICIAN: SHIA ALVAREZ MD ADMIT DATE: 05/06/21/ER Signed Date of Exam:05/06/21 CT ABDOMEN/PELVIS W EXAMINATION: CT abdomen and pelvis with intravenous contrast. TECHNIQUE: Multiple contiguous axial images were obtained through the abdomen and pelvis after the uneventful administration of intravenous contrast. All CT scans use one or more of the following dose optimizing techniques: automated exposure control, MA and/or KvP adjustment based on patient size and exam type or iterative reconstruction. HISTORY: Epigastric abd pain. COMPARISON: 01/05/2021. FINDINGS: Lung bases: The lung bases are clear. Solid organs: The liver is normal without focal lesion. The gallbladder is surgically absent. There is no biliary ductal dilation. Pancreas is normal. Spleen is normal. Adrenal glands are normal. The kidneys are normal without hydronephrosis. Bowel: The stomach and small bowel are normal without obstruction. A duodenal diverticulum is present. The colon is unremarkable. No finding of acute appendicitis. Peritoneum: There is no intraperitoneal free fluid or free air. No suspicious lymphadenopathy. Vasculature: Calcification of the aorta without aneurysm. Musculoskeletal: Degenerative changes of the spine without suspicious osseous lesion or compression fracture. Pelvis: Stable appearance of a hyperdense lesion within the pelvis measuring 7.2 x 8.0 cm. Additional hypodense structures are present within the right adnexa. These are unchanged from prior exam. These were previously characterized on a pelvic ultrasound concerning for complex cyst or endometrioma. The urinary bladder is normal. IMPRESSION: 1. No acute abnormality in the abdomen or pelvis. 2. Stable complex cystic mass within the pelvis which does not appear significantly changed from 01/05/2021. Given the stability over time, since 01/05/2021, findings are felt less likely to represent hemorrhagic cyst and are concerning for a pelvic mass. Consider consultation with gynecology or evaluation with pelvic MRI in the nonemergent setting. Dictated by: Dictated on workstation # [id number] Dict: 05/06/21 1538 Trans: 05/06/21 1554 [facility] [id number] Interpreted by: ROLANDO HUERTA DO Electronically signed by: ROLANDO HUERTA DO 05/06/21 1554 Reviewed: Reviewed by Me Departure Impression Primary Impression: PUD (peptic ulcer disease) Additional Impression: Hemorrhagic ovarian cyst Disposition: 01 HOME, SELF-CARE Condition: Stable Departure-Patient Inst. Decision time for Depature: 16:59 Referrals: NO,LOCAL PHYSICIAN (PCP/Family) Primary Care Physician Patient Instructions: Peptic Ulcers, Ovarian Cyst Removal, Laparoscopic Surgery Add. Discharge Instructions: I do not have the MRI to compare your previous ovarian cyst to today's imaging however your licensed insurance sales agent at [facility] does so we forwarded a copy of the imaging to [facility] that they can review. You will have to let your oncologist know that the imaging was obtained and sent. Zofran has been sent to [facility] and you can get more from your primary care doctor if you need it. Keep your follow-up plans with your primary care doctor and if your pain resumes start taking Mylanta, Maalox, Tums, Rolaids etc. For the pain in your neck I suggest Aspercreme, Blue emu etc. as well as ice and talk to your primary care doctor about a referral to physical therapy. All discharge instructions reviewed with patient and/or family. Voiced understanding. Scripts Ondansetron (Ondansetron Odt) 4 Mg Tab.rapdis 4 MG PO Q6H PRN for NAUSEA/VOMITING, #20 TAB 0 Refills Prov: SHAI ALVAREZ 05/06/21 SHAI ALVAREZ May 06, 2021 14:14
[2021-05-06] MEDS ORDERED: fentaNYL INJ 100 MCG/2 ML AMP IVP ONE (14:15)
[2021-05-06] MEDS ORDERED: NS IV 1000 ML 1,000 ML IV SCH (14:15)
[2021-05-06] MEDS ORDERED: ONDANSETRON 4 MG/2 ML (SDV) Z0FRAN IVP ONE (14:15)
[2021-05-06] MEDS ORDERED: ASPIRIN 81 MG CHEW (CHILDREN'S ASA) PO ONE (14:15)
[2021-05-06 14:21] LABS: ALBUMIN 4.4 GM/DL (3.2-4.5); CHLORIDE 94 MMOL/L (98-107); POTASSIUM 3.8 MMOL/L (3.6-5.0); SODIUM 139 MMOL/L (135-145)
[2021-05-06 14:23] LABS: CALCIUM 9.9 MG/DL (8.5-10.1)
[2021-05-06 14:24] LABS: GLUCOSE 201 MG/DL (70-105); TOTAL PROTEIN 8.2 GM/DL (6.4-8.2)
[2021-05-06 14:25] LABS: CARBON DIOXIDE 25 MMOL/L (21-32)
[2021-05-06 14:26] LABS: BILIRUBIN,TOTAL 0.4 MG/DL (0.1-1.0)
[2021-05-06 14:27] LABS: ALKALINE PHOSPHATASE 85 U/L (40-136)
[2021-05-06 14:28] LABS: CREATININE SERUM 1.14 MG/DL (0.60-1.30); GFR ESTIMATED 49
[2021-05-06 14:29] LABS: BUN/CREATININE RATIO 9
[2021-05-06 14:30] LABS: ALANINE AMINOTRANSFERASE 34 U/L (0-55)
[2021-05-06 14:31] LABS: LIPASE 20 U/L (8-78)
--- NOTE | 2021-05-06 14:46 | Diagnostic Imaging Report ---
EXAMINATION: Chest 1 view HISTORY: Chest pain COMPARISON: 11/02/2020 FINDINGS: Heart size and pulmonary vasculature are normal. The lungs are clear without consolidation, pleural effusion, or pneumothorax. The osseous structures are intact. IMPRESSION: 1. No acute radiographic abnormality in the chest. Dictated by: Dictated on workstation # [id number]
[2021-05-06 15:08] LABS: BILIRUBIN,URINE NEGATIVE (NEGATIVE); CLARITY,URINE CLEAR; COLOR,URINE YELLOW; GLUCOSE, URINE (UA) NEGATIVE (NEGATIVE); KETONES,URINE NEGATIVE (NEGATIVE); LEUKOCYTE ESTERASE ,URINE NEGATIVE (NEGATIVE); NITRITE,URINE NEGATIVE (NEGATIVE); PROTEIN,URINE NEGATIVE (NEGATIVE)
[2021-05-06] MEDS ORDERED: IOHEXOL 350 MG/ML 100 ML (OMNIPAQUE 350) VIAL IV ONE (15:30)
[2021-05-06] MEDS ORDERED: HOLD METFORMIN - RECEIVED CONTRAST 20 ML VIAL IV SCH (15:30)
[2021-05-06] MEDS ORDERED: NS 100 ML (IVPB) BAG IV ONE (15:30)
--- NOTE | 2021-05-06 15:48 | Diagnostic Imaging Report ---
EXAMINATION: CT abdomen and pelvis with intravenous contrast. TECHNIQUE: Multiple contiguous axial images were obtained through the abdomen and pelvis after the uneventful administration of intravenous contrast. All CT scans use one or more of the following dose optimizing techniques: automated exposure control, MA and/or KvP adjustment based on patient size and exam type or iterative reconstruction. HISTORY: Epigastric abd pain. COMPARISON: 01/05/2021. FINDINGS: Lung bases: The lung bases are clear. Solid organs: The liver is normal without focal lesion. The gallbladder is surgically absent. There is no biliary ductal dilation. Pancreas is normal. Spleen is normal. Adrenal glands are normal. The kidneys are normal without hydronephrosis. Bowel: The stomach and small bowel are normal without obstruction. A duodenal diverticulum is present. The colon is unremarkable. No finding of acute appendicitis. Peritoneum: There is no intraperitoneal free fluid or free air. No suspicious lymphadenopathy. Vasculature: Calcification of the aorta without aneurysm. Musculoskeletal: Degenerative changes of the spine without suspicious osseous lesion or compression fracture. Pelvis: Stable appearance of a hyperdense lesion within the pelvis measuring 7.2 x 8.0 cm. Additional hypodense structures are present within the right adnexa. These are unchanged from prior exam. These were previously characterized on a pelvic ultrasound concerning for complex cyst or endometrioma. The urinary bladder is normal. IMPRESSION: 1. No acute abnormality in the abdomen or pelvis. 2. Stable complex cystic mass within the pelvis which does not appear significantly changed from 01/05/2021. Given the stability over time, since 01/05/2021, findings are felt less likely to represent hemorrhagic cyst and are concerning for a pelvic mass. Consider consultation with gynecology or evaluation with pelvic MRI in the nonemergent setting. Dictated by: Dictated on workstation # [id number]
[2021-05-06 15:52] LABS: BACTERIA,URINE FEW /HPF
[2021-05-06] MEDS ORDERED: DIATRIZOATE MEGLUM/SODIUM 37% 120 ML (GASTROGRAFIN) PO ONE (16:15)
[2021-05-06] MEDS ORDERED: ONDA4TAB11 PO (17:01)
[2021-05-06 17:15] VITALS: BP 146/75
== END 2021-05-06 17:15 | disposition home or self-care (01) ==
LOC: EDUNIT# 13:52 → ER 13:54
DX: K27.9 Peptic ulcer, site unspecified, unspecified as acute or chronic, without hemorrhage or perforation (principal); N83.8 Other noninflammatory disorders of ovary, fallopian tube and broad ligament; J44.9 Chronic obstructive pulmonary disease, unspecified; G47.30 Sleep apnea, unspecified; I10 Essential (primary) hypertension; K21.9 Gastro-esophageal reflux disease without esophagitis; E78.00 Pure hypercholesterolemia, unspecified; E11.9 Type 2 diabetes mellitus without complications; F41.9 Anxiety disorder, unspecified; Z79.82 Long term (current) use of aspirin; Z79.899 Other long term (current) drug therapy; Z79.52 Long term (current) use of systemic steroids
CPT/HCPCS: 36415; 71045; 74177; 80053; 81000; 83690; 84484; 85025; 86141; 93005

== ENCOUNTER → 2021-05-31 | Outpatient (CLI) | payer MEDICAID ==
[~2021-05-31] VITALS: Ht 172 cm; Wt 101.0 kg
[~2021-05-31] MED LIST changes: +REGADENOSON 0.4 MG/5 ML SYR (LEXISCAN) IV ONE
[2021-05-31] MEDS: CATHETER FLUSH 10 ML SYR IV PRN ×2 (07:12→09:17)
[2021-05-31 09:15] VITALS: BP 185/99
--- NOTE | 2021-05-31 11:45 | Cardiology Stress Test Report ---
Stress Test Report Date of Procedure/Referring: Date of Procedure: May 31, 2021 PCP Hebert Campbell MD Admitting Physician Martin Loja DO Indications: CP Baseline Heart Rate: 79 Baseline Blood Pressure: Blood Pressure Systolic: 185 Blood Pressure Diastolic: 99 Baseline Vitals Vital Signs Date Time Temp Pulse Resp B/P (MAP) Pulse Ox O2 Delivery O2 Flow Rate FiO2 05/31/21 09:15 79 14 185/99 (127) 99 Room Air Baseline EKG: Baseline EKG: NSR Summary After explaining the procedure to the patient, she signed a consent and then brought to the stress nuclear laboratory. Patient received 0.4 mg Lexiscan for stress test, ECG, heart rate and blood pressure were monitored continuously. Resting and stress dose of radio tracer were injected, imaging was acquired and reviewed in short axis, horizontal long axis and vertical long axis views. TID: 1.1 SSS: 3 SDS: 3 EF: 65 1. Patient tolerated Lexiscan well 2. Breast attenuation with fixed defect involving the true apex and anterior apical segment probably due to breast attenuation, no significant ischemia was noted 3. Normal left ventricular size, EF 65% HEBERT CAMPBELL MD May 31, 2021 11:45
== END ==
LOC: CARD 06:56
PROVIDERS: ATTEND Internal Medicine Cardiovascular Disease
DX: I25.10 Atherosclerotic heart disease of native coronary artery without angina pectoris (principal); I10 Essential (primary) hypertension
CPT/HCPCS: 78452; 93017; A9502

== ENCOUNTER 2021-07-24 11:06 | Emergency (ER) | payer MEDICAID ==
[~2021-07-24] VITALS: Ht 172 cm; Wt 99.3 kg
[~2021-07-24 11:06] MED LIST changes: -REGADENOSON 0.4 MG/5 ML SYR (LEXISCAN) IV ONE
--- NOTE | 2021-07-24 11:14 | ED General ---
General Stated Complaint: DIZZINESS Source of Information: Patient, EMS Exam Limitations: No Limitations History of Present Illness Date Seen by Provider: Jul 24, 2021 Time Seen by Provider: 11:12 Initial Comments To ER with reports of dizziness and near syncope as well as nausea. She arrives by EMS from home. She just finished Macrobid 48 hours ago for urinary tract infection but has ongoing suprapubic sharp pain and urinary urgency. Denies any bowel changes. States "I just dontt feel good". She had dizziness this morning and nearly fell off the toilet but the dizziness is resolved Timing/Duration: 4-6 Hours Severity: Moderate Associated Systoms: No Headaches; Nausea/Vomiting Allergies and Home Medications Allergies Coded Allergies: buspirone HCl (Verified Allergy, Unknown, 10/11/18) etodolac (Verified Allergy, Unknown, 10/11/18) trazodone (Verified Allergy, Unknown, 10/25/20) Neuromuscular Blockers, Steroidal (Verified Adverse Reaction, Unknown, 10/11/18) gabapentin (Verified Adverse Reaction, Unknown, 10/11/18) Patient Home Medication List Home Medication List Reviewed: Yes Albuterol Sulfate (Proair Hfa) 1 Puff Puff, 2 PUFF INH QID PRN for SHORTNESS OF BREATH, (Reported) Entered as Reported by: ARNULFO PLEITEZ on 08/29/17 0840 Albuterol Sulfate (Albuterol Sulfate) 2.5 Mg/3 Ml Vial.neb, 2.5 MG NEB Q4H PRN for SHORTNESS OF BREATH, (Reported) Entered as Reported by: ARNULFO PLEITEZ on 08/29/17 0840 Alprazolam (Alprazolam) 0.5 Mg Tablet, 0.5 MG PO TID PRN for ANXIETY, (Reported) Entered as Reported by: ARNULFO PLEITEZ on 08/29/17 0840 Amlodipine Besylate (Amlodipine Besylate) 10 Mg Tablet, 10 MG PO DAILY, (Reported) Entered as Reported by: PETER CURTIS on 08/20/18 1407 Aspirin (Aspirin EC) 325 Mg Tablet.dr, 325 MG PO DAILY, (Reported) Entered as Reported by: ARNULFO PLEITEZ on 09/24/17 1040 Atenolol (Atenolol) 50 Mg Tablet, 50 MG PO HS, (Reported) Entered as Reported by: PETER CURTIS on 08/20/18 1407 Cetirizine HCl (Cetirizine HCl) 10 Mg Tablet, 10 MG PO DAILY PRN for ALLERGY SYMPTOMS, (Reported) Entered as Reported by: ARNULFO PLEITEZ on 08/29/17 0840 Cholecalciferol (Vitamin D3) (Vitamin D3) 125 Mcg Tablet, 125 MCG PO DAILY, (Reported) Entered as Reported by: REECE SNYDER on 10/25/20 1541 Clonidine HCl (Clonidine HCl) 0.1 Mg Tablet, 0.1 MG PO TID, (Reported) Entered as Reported by: BRUNA BURLESON on 01/19/18 0931 Dicyclomine HCl (Dicyclomine HCl) 10 Mg Capsule, 20 MG PO TID Prescribed by: YRIS GEORGE on 11/02/20 1110 Diphenhydramine HCl (Benadryl) 25 Mg Capsule, 25 MG PO Q6H PRN for ALLERGY SYMPTOMS, (Reported) Entered as Reported by: REECE SNYDER on 10/25/20 1536 Docusate Sodium (Stool Softener) 100 Mg Capsule, 100 MG PO BID, (Reported) Entered as Reported by: REECE SNYDER on 10/25/20 1536 Enalapril Maleate (Enalapril Maleate) 20 Mg Tablet, 10 MG PO BID, (Reported) Entered as Reported by: PETER CURTIS on 08/20/18 1412 Ezetimibe (Ezetimibe) 10 Mg Tablet, 10 MG PO DAILY, (Reported) Entered as Reported by: REECE SNYDER on 10/25/20 1536 Fluconazole (Diflucan) 150 Mg Tablet, 150 MG PO ONCE Prescribed by: KRYSTIAN TY on 04/08/21 1515 Fluticasone Propion/Salmeterol (Fluticasone-Salmeterol 500-50) 1 Each Blst.w.dev, 1 PUFF INH Q12H, (Reported) Entered as Reported by: REECE SNYDER on 10/25/20 1536 Fluticasone Propionate (Fluticasone Propionate) 16 Gm [place].susp, 1 SPRAY NSEACH BID, (Reported) Entered as Reported by: ARNULFO PLEITEZ on 08/29/17 0840 Folic Acid (Folic Acid) 1 Mg Tablet, 1 MG PO DAILY, (Reported) Entered as Reported by: REECE SNYDER on 10/25/20 1536 Guaifenesin/Dextromethorphan (Mucinex Dm ER 600-30 mg Tablet) 1 Each Tab.er.12h, 1-2 EACH PO Q12H PRN for COUGH/CONGESTION, (Reported) Entered as Reported by: REECE SNYDER on 10/25/20 1536 Hydrocodone/Acetaminophen (Hydrocodone-Acetamin 5-325 mg) 1 Each Tablet, 1 TAB PO Q4H PRN for PAIN-MODERATE (5-7) Prescribed by: EREN MCDONALD on 01/05/21 1728 Mag Hydrox/Al Hydrox/Simeth (Mylanta Suspension) 30 Ml Oral.susp, 20-30 ML PO QID PRN for INDIGESTION, (Reported) Entered as Reported by: REECE SNYDER on 11/01/20 1033 Nystatin (Nystatin) 100,000 Unit/1 Ml Oral.susp, 5 ML PO QID Prescribed by: YRIS GEORGE on 11/02/20 1110 [place]-3/Dha/Epa/Fish Oil ([place]-3 Fish Oil 1,000 mg Sftg) 1 Each Capsule, 1 EA PO TID, (Reported) Entered as Reported by: REECE SNYDER on 10/25/20 1536 Omeprazole (Omeprazole) 20 Mg Capsule.dr, 20 MG PO DAILY, (Reported) Entered as Reported by: REECE SNYDER on 10/25/20 1536 Ondansetron (Ondansetron Odt) 4 Mg Tab.rapdis, 4 MG PO DAILY, (Reported) Entered as Reported by: REECE SNYDER on 10/25/20 1536 Ondansetron (Ondansetron Odt) 4 Mg Tab.rapdis, 4 MG PO Q6H PRN for NAUSEA/VOMITING Prescribed by: SHAI ALVAREZ on 05/06/21 1701 Oxymetazoline HCl (Afrin) 15 Ml Mist, 2-3 SPRAYS NSEACH Q12H PRN for CONGESTION, (Reported) Entered as Reported by: REECE SNYDER on 10/25/20 1536 Pantoprazole Sodium (Protonix) 40 Mg Tablet.dr, 40 MG PO DAILY Prescribed by: YRIS GEORGE on 11/02/20 1110 Prednisone (Prednisone) 20 Mg Tab, 30 MG PO DAILY@0700 Prescribed by: YRIS GEORGE on 11/02/20 1110 Simethicone (Gas-X) 125 Mg Tab.chew, 2 TAB PO BID PRN for GAS, (Reported) Entered as Reported by: ARNULFO PLEITEZ on 09/24/17 1040 Sodium Chloride (Saline Nasal [place]) 30 Ml [place], 2 SPRAYS NSEACH PRN PRN for DRY/CONGESTED NOSE, (Reported) Entered as Reported by: REECE SNYDER on 10/25/20 1536 Review of Systems Review of Systems Constitutional: see HPI, dizziness EENTM: see HPI Respiratory: no symptoms reported Cardiovascular: no symptoms reported Gastrointestinal: nausea Genitourinary: see HPI, dysuria Musculoskeletal: no symptoms reported Skin: no symptoms reported Psychiatric/Neurological: No Symptoms Reported Hematologic/Lymphatic: No Symptoms Reported Immunological/Allergic: no symptoms reported Past Agafzht-Cdrgcj-Ejcewm Hx Immunizations Up To Date Tetanus Booster (TDap): Unknown Seasonal Allergies Seasonal Allergies: Yes Past Medical History Surgeries: Yes (pericardial window, c/s x2lung thoracensis) Abdominal, Appendectomy, Cardiac, Section, Gallbladder, Hysterectomy, Oophorectomy Respiratory: Yes (O2 @ 1.5-2L) Asthma, Pneumonia, Pulmonary Embolism, Sleep Apnea, COPD, Emphysema Currently Using CPAP: No Currently Using BIPAP: Yes Cardiac: Yes (Pericardial effusion-S/P PERICARDIAL WINDOW 08/2017) High Cholesterol, Hypertension Neurological: Yes (PSEUDO SEIZURES ) Seizure Disorder 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 Disorders: Yes Female 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 Disorders: Ovarian Cyst [place] History: Hysterectomy, 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, Menopausal Genitourinary: No Gastrointestinal: Yes Abdominal Hernia, Gastroesophageal Reflux, Diverticulosis, Hiatal Hernia, Ulcer, Irritable Bowel Musculoskeletal: Yes (CHRONIC KNEE AND HIP PAIN, SPINAL STENOSIS) Degenerate Disk Disease, Osteoporosis, Arthritis, Chronic Back Pain Endocrine: Yes Diabetes, Non-Insulin dep HEENT: Yes Cataract Cancer: No Psychosocial: Yes Pseudo Seizures, Anxiety, Depression Integumentary: Yes Eczema Blood Disorders: No Adverse Reaction/Blood Tranf: No Family Medical History FH: cirrhosis 19 MOTHER FH: liver cancer 19 MOTHER FHx: lung cancer 19 FATHER Hypertension 19 FATHER 19 MOTHER Physical Exam Vital Signs Vital Signs - First Documented 07/24/21 11:16 Temp 36.2 Pulse 80 Resp 16 B/P (MAP) 181/95 (123) Pulse Ox 95 Capillary Refill : Height, Weight, BMI Height: 5'8.00" Weight: 201lbs. 0.8oz. 91.873825cz; 34.14 BMI Method:Stated General Appearance: No Apparent Distress, WD/WN, Chronically ill Eyes: Bilateral Eye Normal Inspection, Bilateral Eye PERRL, Bilateral Eye EOMI Neck: Full Range of Motion, Normal Inspection Respiratory: Normal Breath Sounds, No Accessory Muscle Use, No Respiratory Distress, Other (Lung sounds are diminished but without wheezing, no accessory muscle use no respiratory distress and oxygen saturation of 94% on room air.) Cardiovascular: Regular Rate, Rhythm, Normal Peripheral Pulses Gastrointestinal: Non Tender, Soft Neurologic/Psychiatric: Alert, Oriented x3 Skin: Normal Color, Warm/Dry Progress/Results/Core Measures Suspected Sepsis SIRS Temperature: Pulse: Respiratory Rate: Laboratory Tests 07/24/21 11:12: White Blood Count 10.0 Blood Pressure / Mean: Laboratory Tests 07/24/21 11:12: Creatinine 1.01, Platelet Count 281, Total Bilirubin 0.3 Results/Orders Lab Results Laboratory Tests Test 07/24/21 11:12 07/24/21 12:12 Range/Units White Blood Count 10.0 4.3-11.0 10^3/uL Red Blood Count 4.57 3.80-5.11 10^6/uL Hemoglobin 13.2 11.5-16.0 g/dL Hematocrit 40 35-52 % Mean Corpuscular Volume 87 80-99 fL Mean Corpuscular Hemoglobin 29 25-34 pg Mean Corpuscular Hemoglobin Concent 33 32-36 g/dL Red Cell Distribution Width 13.6 10.0-14.5 % Platelet Count 281 130-400 10^3/uL Mean Platelet Volume 8.2 L 9.0-12.2 fL Immature Granulocyte % (Auto) 1 % Neutrophils (%) (Auto) 70 42-75 % Lymphocytes (%) (Auto) 20 12-44 % Monocytes (%) (Auto) 7 0-12 % Eosinophils (%) (Auto) 1 0-10 % Basophils (%) (Auto) 1 0-10 % Neutrophils # (Auto) 7.0 1.8-7.8 10^3/uL Lymphocytes # (Auto) 2.0 1.0-4.0 10^3/uL Monocytes # (Auto) 0.7 0.0-1.0 10^3/uL Eosinophils # (Auto) 0.1 0.0-0.3 10^3/uL Basophils # (Auto) 0.1 0.0-0.1 10^3/uL Immature Granulocyte # (Auto) 0.1 0.0-0.1 10^3/uL Sodium Level 134 L 135-145 MMOL/L Potassium Level 4.0 3.6-5.0 MMOL/L Chloride Level 96 L 98-107 MMOL/L Carbon Dioxide Level 23 21-32 MMOL/L Anion Gap 15 H 5-14 MMOL/L Blood Urea Nitrogen 18 7-18 MG/DL Creatinine 1.01 0.60-1.30 MG/DL Estimat Glomerular Filtration Rate 56 BUN/Creatinine Ratio 18 Glucose Level 160 H 70-105 MG/DL Calcium Level 9.9 8.5-10.1 MG/DL Corrected Calcium 9.7 8.5-10.1 MG/DL Total Bilirubin 0.3 0.1-1.0 MG/DL Aspartate Amino Transf (AST/SGOT) 11 5-34 U/L Alanine Aminotransferase (ALT/SGPT) 19 0-55 U/L Alkaline Phosphatase 90 40-136 U/L Total Protein 7.9 6.4-8.2 GM/DL Albumin 4.2 3.2-4.5 GM/DL Urine Color YELLOW Urine Clarity CLEAR Urine pH 6.0 5-9 Urine Specific [place] 1.010 L 1.016-1.022 Urine Protein NEGATIVE NEGATIVE Urine Glucose (UA) 3+ H NEGATIVE Urine Ketones NEGATIVE NEGATIVE Urine Nitrite NEGATIVE NEGATIVE Urine Bilirubin NEGATIVE NEGATIVE Urine Urobilinogen 0.2 < = 1.0 MG/DL Urine Leukocyte Esterase NEGATIVE NEGATIVE Urine RBC (Auto) TRACE-I H NEGATIVE Urine RBC NONE /HPF Urine WBC NONE /HPF Urine Squamous Epithelial Cells 2-5 /HPF Urine Crystals NONE /LPF Urine Bacteria NEGATIVE /HPF Urine Casts NONE /LPF Urine Mucus NEGATIVE /LPF Urine Culture Indicated NO My Orders Orders - EREN MCDONALD APRN Cbc With Automated Diff (07/24/21 11:09) Comprehensive Metabolic Panel (07/24/21 11:09) Ua Culture If Indicated (07/24/21 11:09) Ed Iv/Invasive Line Start (07/24/21 11:09) Ns Iv 500 Ml (Sodium Chloride 0.9%) (07/24/21 11:15) Promethazine Injection (Phenergan Injec (07/24/21 11:15) Medications Given in ED Current Medications Medications Dose Ordered Sig/Tino Route Start Time Stop Time Status Last Admin Dose Admin Promethazine HCl 25 mg ONCE ONCE IVP 07/24/21 11:15 07/24/21 11:16 DC 07/24/21 11:27 25 MG Vital Signs/I&O 07/24/21 11:16 Temp 36.2 Pulse 80 Resp 16 B/P (MAP) 181/95 (123) Pulse Ox 95 Capillary Refill : Departure Communication (Admissions) 1234-she has been sinus rhythm in the 80s without ectopy on the jail manager during her ER stay. Her orthostatic vital signs were unremarkable. Impression Primary Impression: Dizziness Disposition: 01 HOME, SELF-CARE Condition: Stable Departure-Patient Inst. Decision time for Depature: 12:35 Referrals: NO,LOCAL PHYSICIAN (PCP/Family) Primary Care Physician Patient Instructions: Dizziness, Nonvertigo, (DC) Add. Discharge Instructions: 1. Follow-up with your doctor this week for recheck return to ER for any concerns EREN MCDONALD APRN Jul 24, 2021 11:14
[2021-07-24] MEDS ORDERED: PROMETHAZINE INJ 25 MG/ML (PHENERGAN) AMP IVP ONE (11:15)
[2021-07-24] MEDS ORDERED: NS IV 500 ML 500 ML IV SCH (11:15)
[2021-07-24 11:18] LABS: BASOPHILS # (AUTO) 0.1 10^3/uL (0.0-0.1); BASOPHILS % (AUTO) 1 % (0-10); EOSINOPHILS # (AUTO) 0.1 10^3/uL (0.0-0.3); EOSINOPHILS % (AUTO) 1 % (0-10); HEMATOCRIT 40 % (35-52); HEMOGLOBIN 13.2 g/dL (11.5-16.0); LYMPHOCYTES % (AUTO) 20 % (12-44); MEAN CORPUSCULAR HEMOGLOBIN 29 pg (25-34); MEAN CORPUSCULAR HGB CONC 33 g/dL (32-36); MEAN CORPUSCULAR VOLUME 87 fL (80-99); MEAN PLATELET VOLUME 8.2 fL (9.0-12.2); MONOCYTES # (AUTO) 0.7 10^3/uL (0.0-1.0); MONOCYTES % (AUTO) 7 % (0-12); NEUTROPHILS % (AUTO) 70 % (42-75); PLATELET COUNT 281 10^3/uL (130-400)
[2021-07-24 11:33] LABS: ALBUMIN 4.2 GM/DL (3.2-4.5); BILIRUBIN,TOTAL 0.3 MG/DL (0.1-1.0); CALCIUM 9.9 MG/DL (8.5-10.1); CREATININE SERUM 1.01 MG/DL (0.60-1.30); TOTAL PROTEIN 7.9 GM/DL (6.4-8.2)
[2021-07-24 12:18] LABS: BILIRUBIN,URINE NEGATIVE (NEGATIVE); CLARITY,URINE CLEAR; COLOR,URINE YELLOW; GLUCOSE, URINE (UA) 3+ (NEGATIVE); KETONES,URINE NEGATIVE (NEGATIVE); LEUKOCYTE ESTERASE ,URINE NEGATIVE (NEGATIVE); NITRITE,URINE NEGATIVE (NEGATIVE); PROTEIN,URINE NEGATIVE (NEGATIVE)
[2021-07-24 12:30] LABS: BACTERIA,URINE NEGATIVE /HPF
[2021-07-24] MEDS ORDERED: SCOPOLAMINE 1.5 MG (TRANSDERM-SCOP) PATCH TD ONE (12:45)
[2021-07-24 12:50] VITALS: BP 140/83
== END 2021-07-24 12:50 | disposition home or self-care (01) ==
LOC: EDUNIT# 11:06 → ER 11:07
DX: R42 Dizziness and giddiness (principal); J44.9 Chronic obstructive pulmonary disease, unspecified; G47.30 Sleep apnea, unspecified; I10 Essential (primary) hypertension; K21.9 Gastro-esophageal reflux disease without esophagitis; E78.00 Pure hypercholesterolemia, unspecified; F41.9 Anxiety disorder, unspecified; E11.9 Type 2 diabetes mellitus without complications; G89.29 Other chronic pain; M54.9 Dorsalgia, unspecified; Z79.82 Long term (current) use of aspirin; Z79.891 Long term (current) use of opiate analgesic; Z79.899 Other long term (current) drug therapy
CPT/HCPCS: 36415; 80053; 81000; 85025; 99283

== ENCOUNTER 2021-09-21 13:49 | Emergency (ER) | payer MEDICAID ==
[~2021-09-21] VITALS: Ht 172 cm; Wt 100.0 kg
[~2021-09-21 13:49] MED LIST changes: -AMIO200T6 PO; +AMIO200T65 PO; +DICY20TA PO; +TIZA-186 PO; -TIZA4TAB4 PO
[2021-09-21 14:51] LABS: BILIRUBIN,URINE NEGATIVE (NEGATIVE); CLARITY,URINE CLEAR; COLOR,URINE YELLOW; GLUCOSE, URINE (UA) 3+ (NEGATIVE); KETONES,URINE NEGATIVE (NEGATIVE); LEUKOCYTE ESTERASE ,URINE NEGATIVE (NEGATIVE); NITRITE,URINE NEGATIVE (NEGATIVE); PH,URINE 6.5 (5-9); PROTEIN,URINE NEGATIVE (NEGATIVE)
[2021-09-21 15:00] LABS: BASOPHILS # (AUTO) 0.1 10^3/uL (0.0-0.1); BASOPHILS % (AUTO) 1 % (0-10); EOSINOPHILS # (AUTO) 0.1 10^3/uL (0.0-0.3); EOSINOPHILS % (AUTO) 1 % (0-10); HEMATOCRIT 42 % (35-52); HEMOGLOBIN 13.4 g/dL (11.5-16.0); LYMPHOCYTES # (AUTO) 1.5 10^3/uL (1.0-4.0); LYMPHOCYTES % (AUTO) 14 % (12-44); MEAN CORPUSCULAR HEMOGLOBIN 28 pg (25-34); MEAN CORPUSCULAR HGB CONC 32 g/dL (32-36); MEAN CORPUSCULAR VOLUME 88 fL (80-99); MEAN PLATELET VOLUME 8.4 fL (9.0-12.2); MONOCYTES # (AUTO) 0.6 10^3/uL (0.0-1.0); MONOCYTES % (AUTO) 6 % (0-12); NEUTROPHILS # (AUTO) 7.9 10^3/uL (1.8-7.8); NEUTROPHILS % (AUTO) 78 % (42-75); PLATELET COUNT 279 10^3/uL (130-400); WHITE BLOOD COUNT 10.2 10^3/uL (4.3-11.0)
[2021-09-21 15:09] LABS: ALBUMIN 4.4 GM/DL (3.2-4.5); POTASSIUM 4.2 MMOL/L (3.6-5.0)
--- NOTE | 2021-09-21 15:09 | Diagnostic Imaging Report ---
EXAMINATION: Chest, one view. HISTORY: Cough, SOA. COMPARISON: 05/06/2021. FINDINGS: Heart size and pulmonary vasculature are normal. The lungs are clear without consolidation, pleural effusion, or pneumothorax. The osseous structures are intact. IMPRESSION: 1. No acute radiographic abnormality in the chest. Dictated by: Dictated on workstation # [id number]
[2021-09-21 15:10] LABS: CALCIUM 10.2 MG/DL (8.5-10.1)
[2021-09-21 15:12] LABS: TOTAL PROTEIN 8.5 GM/DL (6.4-8.2)
[2021-09-21 15:13] LABS: BILIRUBIN,TOTAL 0.3 MG/DL (0.1-1.0)
[2021-09-21 15:15] LABS: CREATININE SERUM 1.08 MG/DL (0.60-1.30)
[2021-09-21 15:18] LABS: AMORPHOUS SEDIMENT,UR RARE AMOR URATES /LPF; BACTERIA,URINE TRACE /HPF; WBC,URINE 0-2 /HPF
--- NOTE | 2021-09-21 15:30 | ED General ---
General Chief Complaint: General Problems/Pain Stated Complaint: UTI Nursing Triage Note: PT TO ER BY WC WITH C/O WEAKNESS THAT STARTED THIS MORNING AND POSS A UTI FOR 1 WEEK. PT ALSO SAID THIS MORNING WHEN SHE WOKE UP SHE HAD SOME BURNING IN HER LUNGS SO SHE TOOK A BREATHING TX. PT NORMALLY ONLY ON O2 AT NIGHT BUT IS WEARING 2L AT THIS TIME Source of Information: Patient Exam Limitations: No Limitations History of Present Illness Date Seen by Provider: Sep 21, 2021 Time Seen by Provider: 14:14 Initial Comments This 56-year-old woman presents to the emergency room with multiple complaints. First she has experienced some urinary tract infection symptoms with burning and frequency that started over a week ago. She has treated this with cranberry juice and by pushing oral fluids. She said the symptoms have improved but may still be lingering. Second, she complains of shortness of breath and a burning in her chest with coughing which she phrases as "chest congestion". She has not had any increase in intensity of cough or sputum production with cough. She does feel more short of breath with exertion and has started using her oxygen continuously today. She normally only uses her oxygen at night. She is afebrile. She denies any chest pain aside from the burning she experiences with cough. She has some postnasal drainage as well. Allergies and Home Medications Allergies Coded Allergies: buspirone HCl (Verified Allergy, Unknown, 10/11/18) etodolac (Verified Allergy, Unknown, 10/11/18) trazodone (Verified Allergy, Unknown, 10/25/20) Neuromuscular Blockers, Steroidal (Verified Adverse Reaction, Unknown, 10/11/18) gabapentin (Verified Adverse Reaction, Unknown, 10/11/18) Patient Home Medication List Home Medication List Reviewed: Yes Albuterol Sulfate (Proair Hfa) 1 Puff Puff, 2 PUFF INH QID PRN for SHORTNESS OF BREATH, (Reported) Entered as Reported by: ARNUFLO PLEITEZ on 08/29/17 0840 Albuterol Sulfate (Albuterol Sulfate) 2.5 Mg/3 Ml Vial.neb, 2.5 MG NEB Q4H PRN for SHORTNESS OF BREATH, (Reported) Entered as Reported by: ARNULFO PLEITEZ on 08/29/17 0840 Alprazolam (Alprazolam) 0.5 Mg Tablet, 0.5 MG PO TID PRN for ANXIETY, (Reported) Entered as Reported by: ARNULFO PLEITEZ on 08/29/17 0840 Amlodipine Besylate (Amlodipine Besylate) 10 Mg Tablet, 10 MG PO DAILY, (Reported) Entered as Reported by: PETER CURTIS on 08/20/18 1407 Aspirin (Aspirin EC) 325 Mg Tablet.dr, 325 MG PO DAILY, (Reported) Entered as Reported by: ARNULFO PLEITEZ on 09/24/17 1040 Atenolol (Atenolol) 50 Mg Tablet, 50 MG PO HS, (Reported) Entered as Reported by: PETER CURTIS on 08/20/18 1407 Cetirizine HCl (Cetirizine HCl) 10 Mg Tablet, 10 MG PO DAILY PRN for ALLERGY SYMPTOMS, (Reported) Entered as Reported by: ARNULFO PLEITEZ on 08/29/17 0840 Cholecalciferol (Vitamin D3) (Vitamin D3) 125 Mcg Tablet, 125 MCG PO DAILY, (Reported) Entered as Reported by: REECE SNYDER on 10/25/20 1541 Clonidine HCl (Clonidine HCl) 0.1 Mg Tablet, 0.1 MG PO TID, (Reported) Entered as Reported by: BRUNA BURLESON on 01/19/18 0931 Dicyclomine HCl (Dicyclomine HCl) 10 Mg Capsule, 20 MG PO TID Prescribed by: YRIS GEORGE on 11/02/20 1110 Diphenhydramine HCl (Benadryl) 25 Mg Capsule, 25 MG PO Q6H PRN for ALLERGY SYMPTOMS, (Reported) Entered as Reported by: REECE SNYDER on 10/25/20 1536 Docusate Sodium (Stool Softener) 100 Mg Capsule, 100 MG PO BID, (Reported) Entered as Reported by: REECE SNYDER on 10/25/20 1536 Enalapril Maleate (Enalapril Maleate) 20 Mg Tablet, 10 MG PO BID, (Reported) Entered as Reported by: PETER CURTIS on 08/20/18 1412 Ezetimibe (Ezetimibe) 10 Mg Tablet, 10 MG PO DAILY, (Reported) Entered as Reported by: REECE SNYDER on 10/25/20 1536 Fluconazole (Diflucan) 150 Mg Tablet, 150 MG PO ONCE Prescribed by: KRYSTIAN TY on 04/08/21 1515 Fluticasone Propion/Salmeterol (Fluticasone-Salmeterol 500-50) 1 Each Blst.w.dev, 1 PUFF INH Q12H, (Reported) Entered as Reported by: REECE SNYDER on 10/25/20 1536 Fluticasone Propionate (Fluticasone Propionate) 16 Gm [place].susp, 1 SPRAY NSEACH BID, (Reported) Entered as Reported by: ARNULFO PLEITEZ on 08/29/17 0840 Folic Acid (Folic Acid) 1 Mg Tablet, 1 MG PO DAILY, (Reported) Entered as Reported by: REECE SNYDER on 10/25/20 1536 Guaifenesin/Dextromethorphan (Mucinex Dm ER 600-30 mg Tablet) 1 Each Tab.er.12h, 1-2 EACH PO Q12H PRN for COUGH/CONGESTION, (Reported) Entered as Reported by: REECE SNYDER on 10/25/20 1536 Hydrocodone/Acetaminophen (Hydrocodone-Acetamin 5-325 mg) 1 Each Tablet, 1 TAB PO Q4H PRN for PAIN-MODERATE (5-7) Prescribed by: EREN MCDONALD on 01/05/21 1728 Mag Hydrox/Al Hydrox/Simeth (Mylanta Suspension) 30 Ml Oral.susp, 20-30 ML PO QID PRN for INDIGESTION, (Reported) Entered as Reported by: REECE SNYDER on 11/01/20 1033 Nystatin (Nystatin) 100,000 Unit/1 Ml Oral.susp, 5 ML PO QID Prescribed by: YRIS GEORGE on 11/02/20 1110 [place]-3/Dha/Epa/Fish Oil ([place]-3 Fish Oil 1,000 mg Sftg) 1 Each Capsule, 1 EA PO TID, (Reported) Entered as Reported by: REECE SNYDER on 10/25/20 1536 Omeprazole (Omeprazole) 20 Mg Capsule.dr, 20 MG PO DAILY, (Reported) Entered as Reported by: REECE SNYDER on 10/25/20 1536 Ondansetron (Ondansetron Odt) 4 Mg Tab.rapdis, 4 MG PO DAILY, (Reported) Entered as Reported by: REECE SNYDER on 10/25/20 1536 Ondansetron (Ondansetron Odt) 4 Mg Tab.rapdis, 4 MG PO Q6H PRN for NAUSEA/VOMITING Prescribed by: SHAI ALVAREZ on 05/06/21 1701 Oxymetazoline HCl (Afrin) 15 Ml Mist, 2-3 SPRAYS NSEACH Q12H PRN for CONGESTION, (Reported) Entered as Reported by: REECE SNYDER on 10/25/20 1536 Pantoprazole Sodium (Protonix) 40 Mg Tablet.dr, 40 MG PO DAILY Prescribed by: YRIS GEORGE on 11/02/20 1110 Prednisone (Prednisone) 20 Mg Tab, 30 MG PO DAILY@0700 Prescribed by: YRIS GEORGE on 11/02/20 1110 Simethicone (Gas-X) 125 Mg Tab.chew, 2 TAB PO BID PRN for GAS, (Reported) Entered as Reported by: ARNULFO PLEITEZ on 09/24/17 1040 Sodium Chloride (Saline Nasal [place]) 30 Ml [place], 2 SPRAYS NSEACH PRN PRN for DRY/CONGESTED NOSE, (Reported) Entered as Reported by: REECE SNYDER on 10/25/20 1536 Review of Systems Review of Systems Constitutional: no symptoms reported EENTM: see HPI Respiratory: no symptoms reported Cardiovascular: no symptoms reported Gastrointestinal: nausea; No vomiting Genitourinary: see HPI Musculoskeletal: no symptoms reported Skin: no symptoms reported Psychiatric/Neurological: No Symptoms Reported Hematologic/Lymphatic: No Symptoms Reported Immunological/Allergic: no symptoms reported Past Twpwfic-Nqxlyn-Qehwmy Hx Patient Social History Tobacco Use?: No Smoking Status: Former Smoker Substance use?: No Alcohol Use?: No Pt feels they are or have been: No Immunizations Up To Date Tetanus Booster (TDap): Unknown Influenza Vaccine Up-to-Date: No; Not Current First/Initial COVID19 Vaccinat: NO Second COVID19 Vaccination Scot: NO Third COVID19 Vaccination Date: NO Seasonal Allergies Seasonal Allergies: Yes Past Medical History Surgery/Hospitalization HX: PMH: COPD, PERICARDIAL EFFUSION, DM, DEG DISK DZ, SPINAL STENOSIS, HTN, HIGH CHOL SX: PARTIAL HYST, GALLBLADDER, APPY, C-SEC, SCOPES, HERNIA REPAIR. 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: Hysterectomy, 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, Menopausal Genitourinary: No Gastrointestinal: Yes Abdominal Hernia, Gastroesophageal Reflux, Diverticulosis, Hiatal Hernia, Ulcer, Irritable Bowel Musculoskeletal: Yes (CHRONIC KNEE AND HIP PAIN, SPINAL STENOSIS) Degenerate Disk Disease, Osteoporosis, Arthritis, Chronic Back Pain Endocrine: Yes Diabetes, Non-Insulin dep HEENT: Yes Cataract Cancer: No Psychosocial: Yes Pseudo Seizures, Anxiety, Depression Integumentary: Yes Eczema Blood Disorders: No Adverse Reaction/Blood Tranf: No Family Medical History Reviewed Nursing Family Hx FH: cirrhosis 19 MOTHER FH: liver cancer 19 MOTHER FHx: lung cancer 19 FATHER Hypertension 19 FATHER 19 MOTHER Physical Exam Vital Signs Vital Signs - First Documented 09/21/21 13:54 Temp 36.6 Pulse 87 Resp 20 B/P (MAP) 194/99 (130) Pulse Ox 98 O2 Delivery Nasal Cannula O2 Flow Rate 2.00 Capillary Refill : Height, Weight, BMI Height: 5'8.00" Weight: 201lbs. 0.8oz. 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 Norm as Tested Skin: Normal Color, Warm/Dry Progress/Results/Core Measures Suspected Sepsis SIRS Temperature: Pulse: 87 Respiratory Rate: 20 Laboratory Tests 09/21/21 14:07: White Blood Count 10.2 Blood Pressure 194 /99 Mean: 130 Laboratory Tests 09/21/21 14:07: Creatinine 1.08, Platelet Count 279, Total Bilirubin 0.3 Results/Orders Lab Results Laboratory Tests Test 09/21/21 14:00 09/21/21 14:07 09/21/21 14:42 Range/Units Influenza Type A (RT-PCR) Not Detected Not Detecte Influenza Type B (RT-PCR) Not Detected Not Detecte SARS-CoV-2 RNA (RT-PCR) Not Detected Not Detecte White Blood Count 10.2 4.3-11.0 10^3/uL Red Blood Count 4.75 3.80-5.11 10^6/uL Hemoglobin 13.4 11.5-16.0 g/dL Hematocrit 42 35-52 % Mean Corpuscular Volume 88 80-99 fL Mean Corpuscular Hemoglobin 28 25-34 pg Mean Corpuscular Hemoglobin Concent 32 32-36 g/dL Red Cell Distribution Width 14.0 10.0-14.5 % Platelet Count 279 130-400 10^3/uL Mean Platelet Volume 8.4 L 9.0-12.2 fL Immature Granulocyte % (Auto) 1 % Neutrophils (%) (Auto) 78 H 42-75 % Lymphocytes (%) (Auto) 14 12-44 % Monocytes (%) (Auto) 6 0-12 % Eosinophils (%) (Auto) 1 0-10 % Basophils (%) (Auto) 1 0-10 % Neutrophils # (Auto) 7.9 H 1.8-7.8 10^3/uL Lymphocytes # (Auto) 1.5 1.0-4.0 10^3/uL Monocytes # (Auto) 0.6 0.0-1.0 10^3/uL Eosinophils # (Auto) 0.1 0.0-0.3 10^3/uL Basophils # (Auto) 0.1 0.0-0.1 10^3/uL Immature Granulocyte # (Auto) 0.1 0.0-0.1 10^3/uL Sodium Level 136 135-145 MMOL/L Potassium Level 4.2 3.6-5.0 MMOL/L Chloride Level 93 L 98-107 MMOL/L Carbon Dioxide Level 31 21-32 MMOL/L Anion Gap 12 5-14 MMOL/L Blood Urea Nitrogen 14 7-18 MG/DL Creatinine 1.08 0.60-1.30 MG/DL Estimat Glomerular Filtration Rate 52 BUN/Creatinine Ratio 13 Glucose Level 163 H 70-105 MG/DL Calcium Level 10.2 H 8.5-10.1 MG/DL Corrected Calcium 9.9 8.5-10.1 MG/DL Total Bilirubin 0.3 0.1-1.0 MG/DL Aspartate Amino Transf (AST/SGOT) 19 5-34 U/L Alanine Aminotransferase (ALT/SGPT) 31 0-55 U/L Alkaline Phosphatase 88 40-136 U/L C-Reactive Protein High Sensitivity 4.32 H 0.00-0.50 MG/DL B-Type Natriuretic Peptide 39.2 <100.0 PG/ML Total Protein 8.5 H 6.4-8.2 GM/DL Albumin 4.4 3.2-4.5 GM/DL Urine Color YELLOW Urine Clarity CLEAR Urine pH 6.5 5-9 Urine Specific [place] 1.010 L 1.016-1.022 Urine Protein NEGATIVE NEGATIVE Urine Glucose (UA) 3+ H NEGATIVE Urine Ketones NEGATIVE NEGATIVE Urine Nitrite NEGATIVE NEGATIVE Urine Bilirubin NEGATIVE NEGATIVE Urine Urobilinogen 0.2 < = 1.0 MG/DL Urine Leukocyte Esterase NEGATIVE NEGATIVE Urine RBC (Auto) NEGATIVE NEGATIVE Urine RBC NONE /HPF Urine WBC 0-2 /HPF Urine Crystals PRESENT H /LPF Urine Amorphous Sediment RARE KELLY URATES H /LPF Urine Bacteria TRACE /HPF Urine Casts NONE /LPF Urine Mucus NEGATIVE /LPF Urine Culture Indicated NO My Orders Orders - NENA ALONSO MD Ua Culture If Indicated (09/21/21 14:14) Covid 19 Inhouse Test (09/21/21 14:48) Influenza A And B By Pcr (09/21/21 14:48) Bnp [place] (09/21/21 14:52) Cbc With Automated Diff (09/21/21 14:52) Comprehensive Metabolic Panel (09/21/21 14:52) Hs C Reactive Protein (09/21/21 14:52) Chest 1 View, Ap/Pa Only (09/21/21 14:52) Vital Signs/I&O 09/21/21 09/21/21 13:54 14:42 Temp 36.6 Pulse 87 Resp 20 B/P (MAP) 194/99 (130) Pulse Ox 98 O2 Delivery Nasal Cannula Nasal Cannula O2 Flow Rate 2.00 2.00 2.00 Capillary Refill : Blood Pressure Mean: 130 Progress Note : Time: 15:44 Progress Note Work-up was relatively unremarkable and vital signs were stable on 3 L nasal cannula. Blood pressure improved to a normotensive state without any interventions. Patient commonly has hypertensive exacerbations due to anxiety in the healthcare setting. Patient does not appear to have any new treatable conditions, but she was advised to use her nebulizer treatments as prescribed for shortness of breath or wheezing. She does not typically use scheduled breathing treatments but does them only when symptomatic. Patient was advised to return if she had worsening conditions. Urinary frequency is likely due to diuresis from hyperglycemia and glucosuria. Diagnostic Imaging Diagonstic Imaging: Xray Plain Films/CT/US/NM/MRI: chest Comments Chest x-ray viewed by me and report reviewed. See report below: NAME: MAHNAZ VANCE [facility] REC#: [id number] PT STATUS: REG ER : 1965 PHYSICIAN: NENA ALONSO MD ADMIT DATE: 09/21/21/ER Draft Date of Exam:09/21/21 CHEST 1 VIEW, AP/PA ONLY EXAMINATION: Chest, one view. HISTORY: Cough, SOA. COMPARISON: 05/06/2021. FINDINGS: Heart size and pulmonary vasculature are normal. The lungs are clear without consolidation, pleural effusion, or pneumothorax. The osseous structures are intact. IMPRESSION: 1. No acute radiographic abnormality in the chest. Dictated on workstation # [id number] Dict: 09/21/21 1507 Trans: 09/21/21 1508 [id number] Interpreted by: ROLANDO HUERTA DO Departure Impression Primary Impression: Chest congestion Additional Impression: Dysuria Disposition: HOME, SELF-CARE Condition: Stable Departure-Patient Inst. Referrals: NO,LOCAL PHYSICIAN (PCP/Family) Primary Care Physician Patient Instructions: Chronic Obstructive Pulmonary Disease (COPD), Including Emphysema, Type 2 Diabetes Add. Discharge Instructions: Use your nebulizer treatments every 4 hours as needed for shortness of breath or wheezing. Monitor your blood sugars closely, preferably fasting in the morning and 2 hours after each meal. Eat a low sugar, low carbohydrate diet. Review your blood sugars with your primary care provider soon as possible. Return to the ER if you have worsening conditions. Call with questions or concerns. All discharge instructions reviewed with patient and/or family. Voiced understanding. NENA ALONSO MD Sep 21, 2021 15:30
[2021-09-21 16:00] VITALS: BP 118/85
== END 2021-09-21 16:02 | disposition home or self-care (01) ==
LOC: EDUNIT# 13:49 → ER 13:50
DX: R09.89 Other specified symptoms and signs involving the circulatory and respiratory systems (principal); R30.0 Dysuria; J44.9 Chronic obstructive pulmonary disease, unspecified; G47.30 Sleep apnea, unspecified; I10 Essential (primary) hypertension; K21.9 Gastro-esophageal reflux disease without esophagitis; E78.00 Pure hypercholesterolemia, unspecified; F41.9 Anxiety disorder, unspecified; F32.9 Major depressive disorder, single episode, unspecified; E11.9 Type 2 diabetes mellitus without complications; Z20.822 Contact with and (suspected) exposure to COVID-19; Z87.891 Personal history of nicotine dependence; Z79.82 Long term (current) use of aspirin; Z79.899 Other long term (current) drug therapy
CPT/HCPCS: 36415; 71045; 80053; 81000; 83880; 85025; 86141; 87636

== ENCOUNTER 2021-09-26 20:41 | Emergency (ER) | payer MEDICAID ==
[~2021-09-26] VITALS: Ht 172 cm; Wt 100.0 kg
--- NOTE | 2021-09-26 21:19 | ED General ---
General Chief Complaint: Abdominal/GI Problems Stated Complaint: BODYACHES/NAUSEA/HEADACHE/ABD/BACK PAIN Nursing Triage Note: C/O RIGHT SIDED ABDOMINAL PAIN X1 WEEK, NAUSEA/PAIN WORSE TODAY. Source of Information: Patient Exam Limitations: No Limitations History of Present Illness Date Seen by Provider: Sep 26, 2021 Time Seen by Provider: 21:08 Initial Comments Patient ER by private conveyance with chief complaint that she is having wesley nual body aches and nausea with poor oral intake for the past 2 days. She states that she has been using her Zofran 4 mg 3 times a day with insufficient results. She is been using ibuprofen but because of her nausea without acute much went down. She has a history of an ovarian cyst being managed by [facility] gynecology. She has a history of COPD and takes oxygen at night as well as CPAP but has been without her CPAP for the past month because of the recall. She is not feeling short of breath or requiring any more oxygen than usual. She is most concerned about her body aches and nausea which is adequately treated. She was seen in the ER on the , 5 days ago and had negative Covid and influenza swabs. She says she does not feel very wheezy like her COPD is an exacerbation. She has diabetes so she does not like taking steroids if she does not have to. She had unremarkable x-ray and labs at that time. Allergies and Home Medications Allergies Coded Allergies: buspirone HCl (Verified Allergy, Unknown, 10/11/18) etodolac (Verified Allergy, Unknown, 10/11/18) trazodone (Verified Allergy, Unknown, 10/25/20) Neuromuscular Blockers, Steroidal (Verified Adverse Reaction, Unknown, 10/11/18) gabapentin (Verified Adverse Reaction, Unknown, 10/11/18) Patient Home Medication List Home Medication List Reviewed: Yes Albuterol Sulfate (Proair Hfa) 1 Puff Puff, 2 PUFF INH QID PRN for SHORTNESS OF BREATH, (Reported) Entered as Reported by: ARNULFO PLEITEZ on 08/29/17 0840 Albuterol Sulfate (Albuterol Sulfate) 2.5 Mg/3 Ml Vial.neb, 2.5 MG NEB Q4H PRN for SHORTNESS OF BREATH, (Reported) Entered as Reported by: ARNULFO PLEITEZ on 08/29/17 0840 Alprazolam (Alprazolam) 0.5 Mg Tablet, 0.5 MG PO TID PRN for ANXIETY, (Reported) Entered as Reported by: ARNULFO PLEITEZ on 08/29/17 0840 Amlodipine Besylate (Amlodipine Besylate) 10 Mg Tablet, 10 MG PO DAILY, (Reported) Entered as Reported by: PETER CURTIS on 08/20/18 1407 Aspirin (Aspirin EC) 325 Mg Tablet.dr, 325 MG PO DAILY, (Reported) Entered as Reported by: ARNULFO PLEITEZ on 09/24/17 1040 Atenolol (Atenolol) 50 Mg Tablet, 50 MG PO HS, (Reported) Entered as Reported by: PETER CURTIS on 08/20/18 1407 Cetirizine HCl (Cetirizine HCl) 10 Mg Tablet, 10 MG PO DAILY PRN for ALLERGY SYMPTOMS, (Reported) Entered as Reported by: ARNULFO PLEITEZ on 08/29/17 0840 Cholecalciferol (Vitamin D3) (Vitamin D3) 125 Mcg Tablet, 125 MCG PO DAILY, (Reported) Entered as Reported by: REECE SNYDER on 10/25/20 1541 Clonidine HCl (Clonidine HCl) 0.1 Mg Tablet, 0.1 MG PO TID, (Reported) Entered as Reported by: BRUNA BURLESON on 01/19/18 0931 Dicyclomine HCl (Dicyclomine HCl) 10 Mg Capsule, 20 MG PO TID Prescribed by: YRIS GEORGE on 11/02/20 1110 Diphenhydramine HCl (Benadryl) 25 Mg Capsule, 25 MG PO Q6H PRN for ALLERGY SYMPTOMS, (Reported) Entered as Reported by: REECE SNYDER on 10/25/20 1536 Docusate Sodium (Stool Softener) 100 Mg Capsule, 100 MG PO BID, (Reported) Entered as Reported by: REECE SNYDER on 10/25/20 1536 Enalapril Maleate (Enalapril Maleate) 20 Mg Tablet, 10 MG PO BID, (Reported) Entered as Reported by: PETER CURTIS on 08/20/18 1412 Ezetimibe (Ezetimibe) 10 Mg Tablet, 10 MG PO DAILY, (Reported) Entered as Reported by: REECE SNYDER on 10/25/20 1536 Fluconazole (Diflucan) 150 Mg Tablet, 150 MG PO ONCE Prescribed by: KRYSTIAN TY on 04/08/21 1515 Fluticasone Propion/Salmeterol (Fluticasone-Salmeterol 500-50) 1 Each Blst.w.dev, 1 PUFF INH Q12H, (Reported) Entered as Reported by: REECE SNYDER on 10/25/20 1536 Fluticasone Propionate (Fluticasone Propionate) 16 Gm [place].susp, 1 SPRAY NSEACH BID, (Reported) Entered as Reported by: ARNULFO PLEITEZ on 08/29/17 0840 Folic Acid (Folic Acid) 1 Mg Tablet, 1 MG PO DAILY, (Reported) Entered as Reported by: REECE SNYDER on 10/25/20 1536 Guaifenesin/Dextromethorphan (Mucinex Dm ER 600-30 mg Tablet) 1 Each Tab.er.12h, 1-2 EACH PO Q12H PRN for COUGH/CONGESTION, (Reported) Entered as Reported by: REECE SNYDER on 10/25/20 1536 Hydrocodone/Acetaminophen (Hydrocodone-Acetamin 5-325 mg) 1 Each Tablet, 1 TAB PO Q4H PRN for PAIN-MODERATE (5-7) Prescribed by: EREN MCDONALD on 01/05/21 1728 Mag Hydrox/Al Hydrox/Simeth (Mylanta Suspension) 30 Ml Oral.susp, 20-30 ML PO QID PRN for INDIGESTION, (Reported) Entered as Reported by: REECE SNYDER on 11/01/20 1033 Nystatin (Nystatin) 100,000 Unit/1 Ml Oral.susp, 5 ML PO QID Prescribed by: YRIS GEORGE on 11/02/20 1110 [place]-3/Dha/Epa/Fish Oil ([place]-3 Fish Oil 1,000 mg Sftg) 1 Each Capsule, 1 EA PO TID, (Reported) Entered as Reported by: REECE SNYDER on 10/25/20 1536 Omeprazole (Omeprazole) 20 Mg Capsule.dr, 20 MG PO DAILY, (Reported) Entered as Reported by: REECE SNYDER on 10/25/20 1536 Ondansetron (Ondansetron Odt) 4 Mg Tab.rapdis, 4 MG PO DAILY, (Reported) Entered as Reported by: REEEC SNYDER on 10/25/20 1536 Ondansetron (Ondansetron Odt) 4 Mg Tab.rapdis, 4 MG PO Q6H PRN for NAUSEA/VOMITING Prescribed by: SHAI ALVAREZ on 05/06/21 1701 Oxymetazoline HCl (Afrin) 15 Ml Mist, 2-3 SPRAYS NSEACH Q12H PRN for CONGESTION, (Reported) Entered as Reported by: REECE SNYDER on 10/25/20 1536 Pantoprazole Sodium (Protonix) 40 Mg Tablet.dr, 40 MG PO DAILY Prescribed by: YRIS GEORGE on 11/02/20 1110 Prednisone (Prednisone) 20 Mg Tab, 30 MG PO DAILY@0700 Prescribed by: YRIS GEORGE on 11/02/20 1110 Simethicone (Gas-X) 125 Mg Tab.chew, 2 TAB PO BID PRN for GAS, (Reported) Entered as Reported by: ARNULFO PLEITEZ on 09/24/17 1040 Sodium Chloride (Saline Nasal [place]) 30 Ml [place], 2 SPRAYS NSEACH PRN PRN for DRY/CONGESTED NOSE, (Reported) Entered as Reported by: REECE SNYDER on 10/25/20 1536 Review of Systems Review of Systems Constitutional: No chills, No diaphoresis, No fever; malaise EENTM: No ear discharge, No hearing loss Respiratory: cough; No phlegm, No short of breath, No wheezing Cardiovascular: No chest pain, No palpitations Gastrointestinal: No abdominal pain, No nausea, No vomiting Genitourinary: No decreased output, No discharge, No dysuria Musculoskeletal: No back pain, No joint pain All Other Systems Reviewed Negative Unless Noted: Yes Past Uiaaqyc-Tntlbf-Cbguys Hx Patient Social History Tobacco Use?: No Smoking Status: Former Smoker Use of E-Cig and/or Vaping dev: No Substance use?: No Alcohol Use?: No Pt feels they are or have been: No Immunizations Up To Date Tetanus Booster (TDap): Unknown First/Initial COVID19 Vaccinat: NO Second COVID19 Vaccination Scot: NO Third COVID19 Vaccination Date: NO Seasonal Allergies Seasonal Allergies: Yes Past Medical History Surgery/Hospitalization HX: PMH: COPD, PERICARDIAL EFFUSION, DM, DEG DISK DZ, SPINAL STENOSIS, HTN, HIGH CHOL SX: PARTIAL HYST, GALLBLADDER, APPY, C-SEC, SCOPES, HERNIA REPAIR. 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 History: Hysterectomy, 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, Menopausal Genitourinary: No Gastrointestinal: Yes Abdominal Hernia, Gastroesophageal Reflux, Diverticulosis, Hiatal Hernia, Ulcer, Irritable Bowel Musculoskeletal: Yes (CHRONIC KNEE AND HIP PAIN, SPINAL STENOSIS) Degenerate Disk Disease, Osteoporosis, Arthritis, Chronic Back Pain Endocrine: Yes Diabetes, Non-Insulin dep HEENT: Yes Cataract Cancer: No Psychosocial: Yes Pseudo Seizures, Anxiety, Depression Integumentary: Yes Eczema Blood Disorders: No Adverse Reaction/Blood Tranf: No Family Medical History FH: cirrhosis 19 MOTHER FH: liver cancer 19 MOTHER FHx: lung cancer 19 FATHER Hypertension 19 FATHER 19 MOTHER Physical Exam Vital Signs Vital Signs - First Documented 09/26/21 21:06 Temp 36.6 Pulse 91 Resp 18 B/P (MAP) 153/103 (120) Pulse Ox 97 O2 Delivery Room Air Capillary Refill : Less Than 3 Seconds Height, Weight, BMI Height: 5'8.00" Weight: 201lbs. 0.8oz. [id number]; 33.00 BMI Method:Stated General Appearance: Anxious, Chronically ill, Mild Distress Eyes: Bilateral Eye Normal Inspection, Bilateral Eye PERRL, Bilateral Eye EOMI HEENT: PERRL/EOMI, Pharynx Normal; No Moist Mucous Membranes Neck: Full Range of Motion, Normal Inspection, Non Tender Respiratory: Lungs Clear, No Accessory Muscle Use, No Respiratory Distress, Decreased Breath Sounds Cardiovascular: Regular Rate, Rhythm, No Edema, Normal Peripheral Pulses Gastrointestinal: Normal Bowel Sounds, Non Tender, Soft Back: Normal Inspection, No Vertebral Tenderness Extremity: Normal Capillary Refill, Normal Inspection Neurologic/Psychiatric: Alert, Oriented x3 Skin: Normal Color, Warm/Dry Progress/Results/Core Measures Suspected Sepsis SIRS Temperature: Pulse: 91 Respiratory Rate: 18 Laboratory Tests 09/26/21 21:29: White Blood Count 7.4 Blood Pressure 153 /103 Mean: 120 Laboratory Tests 09/26/21 21:29: Creatinine 1.21, Platelet Count 247 Results/Orders Lab Results Laboratory Tests Test 09/26/21 21:07 09/26/21 21:29 Range/Units Urine Color YELLOW Urine Clarity SL CLOUDY Urine pH 6.0 5-9 Urine Specific [place] 1.010 L 1.016-1.022 Urine Protein NEGATIVE NEGATIVE Urine Glucose (UA) 3+ H NEGATIVE Urine Ketones NEGATIVE NEGATIVE Urine Nitrite NEGATIVE NEGATIVE Urine Bilirubin NEGATIVE NEGATIVE Urine Urobilinogen 0.2 < = 1.0 MG/DL Urine Leukocyte Esterase NEGATIVE NEGATIVE Urine RBC (Auto) NEGATIVE NEGATIVE Urine RBC NONE /HPF Urine WBC RARE /HPF Urine Squamous Epithelial Cells 0-2 /HPF Urine Crystals NONE /LPF Urine Bacteria NEGATIVE /HPF Urine Casts NONE /LPF Urine Mucus NEGATIVE /LPF Urine Culture Indicated NO White Blood Count 7.4 4.3-11.0 10^3/uL Red Blood Count 4.71 3.80-5.11 10^6/uL Hemoglobin 13.4 11.5-16.0 g/dL Hematocrit 40 35-52 % Mean Corpuscular Volume 86 80-99 fL Mean Corpuscular Hemoglobin 29 25-34 pg Mean Corpuscular Hemoglobin Concent 33 32-36 g/dL Red Cell Distribution Width 14.1 10.0-14.5 % Platelet Count 247 130-400 10^3/uL Mean Platelet Volume 8.2 L 9.0-12.2 fL Immature Granulocyte % (Auto) 1 % Neutrophils (%) (Auto) 85 H 42-75 % Lymphocytes (%) (Auto) 9 L 12-44 % Monocytes (%) (Auto) 5 0-12 % Eosinophils (%) (Auto) 0 0-10 % Basophils (%) (Auto) 0 0-10 % Neutrophils # (Auto) 6.3 1.8-7.8 10^3/uL Lymphocytes # (Auto) 0.7 L 1.0-4.0 10^3/uL Monocytes # (Auto) 0.4 0.0-1.0 10^3/uL Eosinophils # (Auto) 0.0 0.0-0.3 10^3/uL Basophils # (Auto) 0.0 0.0-0.1 10^3/uL Immature Granulocyte # (Auto) 0.1 0.0-0.1 10^3/uL Sodium Level 130 L 135-145 MMOL/L Potassium Level 3.5 L 3.6-5.0 MMOL/L Chloride Level 93 L 98-107 MMOL/L Carbon Dioxide Level 23 21-32 MMOL/L Anion Gap 14 5-14 MMOL/L Blood Urea Nitrogen 20 H 7-18 MG/DL Creatinine 1.21 0.60-1.30 MG/DL Estimat Glomerular Filtration Rate 46 BUN/Creatinine Ratio 17 Glucose Level 179 H 70-105 MG/DL Calcium Level 9.0 8.5-10.1 MG/DL Magnesium Level 1.8 1.6-2.4 MG/DL C-Reactive Protein High Sensitivity 8.54 H 0.00-0.50 MG/DL My Orders Orders - SHAI ALVAREZ Cbc With Automated Diff (09/26/21 21:17) Basic Metabolic Panel (09/26/21 21:17) Hs C Reactive Protein (09/26/21 21:17) Chest 1 View, Ap/Pa Only (09/26/21 21:17) Ketorolac Injection (Toradol Injection) (09/26/21 21:30) Ondansetron Injection (Zofran Injectio (09/26/21 21:30) Magnesium (09/26/21 21:19) Ed Iv/Invasive Line Start (09/26/21 21:19) Ns Iv 1000 Ml (Sodium Chloride 0.9%) (09/26/21 21:30) Famotidine Injection (Pepcid Injection) (09/26/21 21:30) Ua Culture If Indicated (09/26/21 21:25) Medications Given in ED Current Medications Medications Dose Ordered Sig/Tino Route Start Time Stop Time Status Last Admin Dose Admin Famotidine 20 mg ONCE ONCE IVP 09/26/21 21:30 09/26/21 21:31 DC 09/26/21 21:32 20 MG Ketorolac Tromethamine 30 mg ONCE ONCE IVP 09/26/21 21:30 09/26/21 21:31 DC 09/26/21 21:32 30 MG Ondansetron HCl 8 mg ONCE ONCE IVP 09/26/21 21:30 09/26/21 21:31 DC 09/26/21 21:32 8 MG Vital Signs/I&O 09/26/21 21:06 Temp 36.6 Pulse 91 Resp 18 B/P (MAP) 153/103 (120) Pulse Ox 97 O2 Delivery Room Air O2 Flow Rate Capillary Refill : Less Than 3 Seconds Blood Pressure Mean: 120 Progress Note #1: Time: 21:19 Progress Note Toradol for her body aches, Zofran for her nausea and a liter of fluids for her mild dehydration. Suspect she has viral syndrome more so than a COPD exac erbation. No wheezing just diminished breath sounds bilaterally. We will get a repeat chest x-ray and basic labs she is frail with her history of diabetes. Likely she might benefit from a short course of low-dose steroids as well as better nausea control. Progress Note #2: Time: 22:21 Progress Note The patient's nausea is better. She is taking ice chips. She feels better after the fluids. Plan to have her double up on her Zofran and provide her with some Phenergan and Benadryl for breakthrough nausea. Labs demonstrate some mild dehydration otherwise unremarkable and her x-ray has unchanged Diagnostic Imaging Diagonstic Imaging: Xray Plain Films/CT/US/NM/MRI: chest Comments [facility]. [place], [place] NAME: MAHNAZ VANCE [facility] REC#: [id number] PT STATUS: REG ER : 1965 PHYSICIAN: SHAI ALVAREZ MD ADMIT DATE: 09/26/21/ER Draft Date of Exam:09/26/21 CHEST 1 VIEW, AP/PA ONLY CLINICAL INDICATION: Patient with shortness of air and bodyaches. EXAM: Portable chest x-ray upright view. COMPARISON: Chest x-ray dated 09/21/2021. FINDINGS: Lungs/pleura: Lungs are clear. There is no pneumothorax. There is no pleural effusion. Mediastinum: Unremarkable. Pulmonary vasculature: Unremarkable. Heart: Unremarkable. Bones/extrathoracic soft tissue: There are degenerative spurs involving the thoracic spine. IMPRESSION: There is no radiographic evidence of acute cardiopulmonary process. Dictated on workstation # [id number] Dict: 09/26/212149 Trans: 09/26/212152 [facility] [id number] Interpreted by: NANCY ANN MD Electronically signed by: Reviewed: Reviewed by Me Departure Impression Primary Impression: Viral syndrome Additional Impression: Dehydration, mild Disposition: HOME, SELF-CARE Condition: Stable Departure-Patient Inst. Decision time for Depature: 22:22 Referrals: NO,LOCAL PHYSICIAN (PCP/Family) Primary Care Physician Patient Instructions: Viral Syndrome (DC), Dehydration, Adult ED Add. Discharge Instructions: Drink lots of fluids. Diet sports drinks are a good idea. Zofran 1 to 2 tablets every 6 hours as necessary for nausea or vomiting. If you still have breakthrough nausea then you can take Phenergan 25 mg and Benadryl 25 mg every 6 hours for breakthrough nausea. Will cause drowsiness. All discharge instructions reviewed with patient and/or family. Voiced understanding. Scripts Ondansetron (Ondansetron Odt) 4 Mg Tab.rapdis 4-8 MG PO Q6H PRN for NAUSEA/VOMITING, #20 TAB 0 Refills Prov: SHAI ALVAREZ 09/26/21 Promethazine HCl (Promethazine Tablet) 25 Mg Tablet 25 MG PO Q6H PRN for NAUSEA/VOMITING, #20 TAB 0 Refills Prov: SHAI ALVAREZ 09/26/21 SHAI ALVAREZ Sep 26, 2021 21:19
[2021-09-26] MEDS ORDERED: NS IV 1000 ML 1,000 ML IV SCH (21:30)
[2021-09-26] MEDS ORDERED: ONDANSETRON 4 MG/2 ML (SDV) Z0FRAN IVP ONE (21:30)
[2021-09-26] MEDS ORDERED: KETOROLAC 30 MG/ML VIAL IVP ONE (21:30)
[2021-09-26] MEDS ORDERED: FAMOTIDINE 20MG/2ML IV (PEPCID) IVP ONE (21:30)
[2021-09-26 21:46] LABS: BASOPHILS % (AUTO) 0 % (0-10); EOSINOPHILS % (AUTO) 0 % (0-10); HEMATOCRIT 40 % (35-52); HEMOGLOBIN 13.4 g/dL (11.5-16.0); LYMPHOCYTES # (AUTO) 0.7 10^3/uL (1.0-4.0); LYMPHOCYTES % (AUTO) 9 % (12-44); MEAN CORPUSCULAR HEMOGLOBIN 29 pg (25-34); MEAN CORPUSCULAR HGB CONC 33 g/dL (32-36); MEAN CORPUSCULAR VOLUME 86 fL (80-99); MEAN PLATELET VOLUME 8.2 fL (9.0-12.2); MONOCYTES # (AUTO) 0.4 10^3/uL (0.0-1.0); MONOCYTES % (AUTO) 5 % (0-12); NEUTROPHILS # (AUTO) 6.3 10^3/uL (1.8-7.8); NEUTROPHILS % (AUTO) 85 % (42-75); PLATELET COUNT 247 10^3/uL (130-400); WHITE BLOOD COUNT 7.4 10^3/uL (4.3-11.0)
[2021-09-26 21:52] LABS: POTASSIUM 3.5 MMOL/L (3.6-5.0)
--- NOTE | 2021-09-26 21:53 | Diagnostic Imaging Report ---
CLINICAL INDICATION: Patient with shortness of air and bodyaches. EXAM: Portable chest x-ray upright view. COMPARISON: Chest x-ray dated 09/21/2021. FINDINGS: Lungs/pleura: Lungs are clear. There is no pneumothorax. There is no pleural effusion. Mediastinum: Unremarkable. Pulmonary vasculature: Unremarkable. Heart: Unremarkable. Bones/extrathoracic soft tissue: There are degenerative spurs involving the thoracic spine. IMPRESSION: There is no radiographic evidence of acute cardiopulmonary process. Dictated by: Dictated on workstation # [id number]
[2021-09-26 21:58] LABS: CREATININE SERUM 1.21 MG/DL (0.60-1.30)
[2021-09-26 22:00] LABS: MAGNESIUM 1.8 MG/DL (1.6-2.4)
[2021-09-26 22:02] LABS: BILIRUBIN,URINE NEGATIVE (NEGATIVE); CLARITY,URINE SL CLOUDY; COLOR,URINE YELLOW; GLUCOSE, URINE (UA) 3+ (NEGATIVE); KETONES,URINE NEGATIVE (NEGATIVE); LEUKOCYTE ESTERASE ,URINE NEGATIVE (NEGATIVE); NITRITE,URINE NEGATIVE (NEGATIVE); PROTEIN,URINE NEGATIVE (NEGATIVE)
[2021-09-26 22:11] LABS: BACTERIA,URINE NEGATIVE /HPF; SQUAMOUS EPITHELIAL CELL,UR 0-2 /HPF; WBC,URINE RARE /HPF
[2021-09-26] MEDS ORDERED: ONDA4TAB11 PO (22:23)
[2021-09-26] MEDS ORDERED: PROM25TA14 PO (22:23)
[2021-09-26 23:00] VITALS: BP 101/79
== END 2021-09-26 23:02 | disposition home or self-care (01) ==
LOC: EDUNIT# 20:41 → ER 20:45
DX: B34.9 Viral infection, unspecified (principal); E86.0 Dehydration; G47.30 Sleep apnea, unspecified; I10 Essential (primary) hypertension; J44.9 Chronic obstructive pulmonary disease, unspecified; E78.00 Pure hypercholesterolemia, unspecified; K21.9 Gastro-esophageal reflux disease without esophagitis; F41.9 Anxiety disorder, unspecified; F32.9 Major depressive disorder, single episode, unspecified; E11.9 Type 2 diabetes mellitus without complications; G89.29 Other chronic pain; M54.9 Dorsalgia, unspecified; Z87.891 Personal history of nicotine dependence; Z79.82 Long term (current) use of aspirin; Z79.899 Other long term (current) drug therapy; Z79.891 Long term (current) use of opiate analgesic
CPT/HCPCS: 36415; 71045; 80048; 81000; 83735; 85025; 86141

== ENCOUNTER 2021-09-27 10:09 | Emergency (ER) | payer MEDICAID ==
[~2021-09-27] VITALS: Ht 172 cm; Wt 100.0 kg
[~2021-09-27 10:09] MED LIST changes: +PROM25TA14 PO
--- NOTE | 2021-09-27 11:41 | ED Abdominal Pain ---
General Chief Complaint: Abdominal/GI Problems Stated Complaint: ABD PAIN Nursing Triage Note: "RLQ PAIN" DIARRHEA STARTED LAST NIGHT AT 0100, TODAY C/O PUFFY FACE, AND PAIN . Source of Information: Patient Exam Limitations: No Limitations History of Present Illness Date Seen by Provider: Sep 27, 2021 Time Seen by Provider: 11:40 Initial Comments Patient is a 56-year-old female who presents ED with right lower quadrant abdominal pain. Pain is crampy with intermittent sharp pain. Pain over the past 2 days. She has a known ovarian cyst in her right lower quadrant currently being managed by gynecology. Patient states she feels bloated and gassy. She denies of any urinary symptoms. She reports flulike symptoms since last Saturday. This is her third visit in the past week but states that the abdominal pain is new. She has a history of diverticulitis and concern as she started developing diarrhea last night. Denies of any dark tarry stool, blood in her stool, vomiting. She states she feels nauseous. History of COPD. Does wear 2 L throughout the day and 3 L at night. Denies of any chest pain, shortness of breath, cough, headache, dizziness, fever Allergies and Home Medications Allergies Coded Allergies: buspirone HCl (Verified Allergy, Unknown, 10/11/18) etodolac (Verified Allergy, Unknown, 10/11/18) trazodone (Verified Allergy, Unknown, 10/25/20) Neuromuscular Blockers, Steroidal (Verified Adverse Reaction, Unknown, 10/11/18) gabapentin (Verified Adverse Reaction, Unknown, 10/11/18) Patient Home Medication List Home Medication List Reviewed: Yes Albuterol Sulfate (Proair Hfa) 1 Puff Puff, 2 PUFF INH QID PRN for SHORTNESS OF BREATH, (Reported) Entered as Reported by: ARNULFO PLEITEZ on 08/29/17 0840 Albuterol Sulfate (Albuterol Sulfate) 2.5 Mg/3 Ml Vial.neb, 2.5 MG NEB Q4H PRN for SHORTNESS OF BREATH, (Reported) Entered as Reported by: ARNULFO PLEITEZ on 08/29/17 0840 Alprazolam (Alprazolam) 0.5 Mg Tablet, 0.5 MG PO TID PRN for ANXIETY, (Reported) Entered as Reported by: ARNULFO PLEITEZ on 08/29/17 0840 Amlodipine Besylate (Amlodipine Besylate) 10 Mg Tablet, 10 MG PO DAILY, (R eported) Entered as Reported by: PETER CURTIS on 08/20/18 1407 Aspirin (Aspirin EC) 325 Mg Tablet.dr, 325 MG PO DAILY, (Reported) Entered as Reported by: ARNULFO PLEITEZ on 09/24/17 1040 Atenolol (Atenolol) 50 Mg Tablet, 50 MG PO HS, (Reported) Entered as Reported by: PETER CURTIS on 08/20/18 1407 Cetirizine HCl (Cetirizine HCl) 10 Mg Tablet, 10 MG PO DAILY PRN for ALLERGY SYMPTOMS, (Reported) Entered as Reported by: ARNULFO PLEITEZ on 08/29/17 0840 Cholecalciferol (Vitamin D3) (Vitamin D3) 125 Mcg Tablet, 125 MCG PO DAILY, (Reported) Entered as Reported by: REECE SNYDER on 10/25/20 1541 Clonidine HCl (Clonidine HCl) 0.1 Mg Tablet, 0.1 MG PO TID, (Reported) Entered as Reported by: BRUNA BURLESON on 01/19/18 0931 Dicyclomine HCl (Dicyclomine HCl) 10 Mg Capsule, 20 MG PO TID Prescribed by: YRIS GEORGE on 11/02/20 1110 Diphenhydramine HCl (Benadryl) 25 Mg Capsule, 25 MG PO Q6H PRN for ALLERGY SYMP TOMS, (Reported) Entered as Reported by: REECE SNYDER on 10/25/20 1536 Docusate Sodium (Stool Softener) 100 Mg Capsule, 100 MG PO BID, (Reported) Entered as Reported by: REECE SNYDER on 10/25/20 1536 Enalapril Maleate (Enalapril Maleate) 20 Mg Tablet, 10 MG PO BID, (Reported) Entered as Reported by: PETER CURTIS on 08/20/18 1412 Ezetimibe (Ezetimibe) 10 Mg Tablet, 10 MG PO DAILY, (Reported) Entered as Reported by: REECE SNYDER on 10/25/20 1536 Fluconazole (Diflucan) 150 Mg Tablet, 150 MG PO ONCE Prescribed by: KRYSTIAN TY on 04/08/21 1515 Fluticasone Propion/Salmeterol (Fluticasone-Salmeterol 500-50) 1 Each Blst.w.dev, 1 PUFF INH Q12H, (Reported) Entered as Reported by: REECE SNYDER on 10/25/20 1536 Fluticasone Propionate (Fluticasone Propionate) 16 Gm [place].susp, 1 SPRAY NSEACH BID, (Reported) Entered as Reported by: ARNULFO PLEITEZ on 08/29/17 0840 Folic Acid (Folic Acid) 1 Mg Tablet, 1 MG PO DAILY, (Reported) Entered as Reported by: REECE SNYDER on 10/25/20 1536 Guaifenesin/Dextromethorphan (Mucinex Dm ER 600-30 mg Tablet) 1 Each Tab.er.12h, 1-2 EACH PO Q12H PRN for COUGH/CONGESTION, (Reported) Entered as Reported by: REECE SNYDER on 10/25/20 1536 Hydrocodone/Acetaminophen (Hydrocodone-Acetamin 5-325 mg) 1 Each Tablet, 1 TAB PO Q4H PRN for PAIN-MODERATE (5-7) Prescribed by: EREN MCDONALD on 01/05/21 1728 Mag Hydrox/Al Hydrox/Simeth (Mylanta Suspension) 30 Ml Oral.susp, 20-30 ML PO QID PRN for INDIGESTION, (Reported) Entered as Reported by: REECE SNYDER on 11/01/20 1033 Nystatin (Nystatin) 100,000 Unit/1 Ml Oral.susp, 5 ML PO QID Prescribed by: YRIS GEORGE on 11/02/20 1110 Forest-3/Dha/Epa/Fish Oil (Forest-3 Fish Oil 1,000 mg Sftg) 1 Each Capsule, 1 EA PO TID, (Reported) Entered as Reported by: REECE SNYDER on 10/25/20 1536 Omeprazole (Omeprazole) 20 Mg Capsule.dr, 20 MG PO DAILY, (Reported) Entered as Reported by: REECE SNYDER on 10/25/20 1536 Ondansetron (Ondansetron Odt) 4 Mg Tab.rapdis, 4 MG PO DAILY, (Reported) Entered as Reported by: REECE SNYDER on 10/25/20 1536 Ondansetron (Ondansetron Odt) 4 Mg Tab.rapdis, 4 MG PO Q6H PRN for NAUSEA/VOMITING Prescribed by: SHAI ALVAREZ on 05/06/21 1701 Ondansetron (Ondansetron Odt) 4 Mg Tab.rapdis, 4-8 MG PO Q6H PRN for NAUSEA/VOMITING Prescribed by: SHAI ALVAREZ on 09/26/21 2223 Oxymetazoline HCl (Afrin) 15 Ml Mist, 2-3 SPRAYS NSEACH Q12H PRN for CONGESTION, (Reported) Entered as Reported by: REECE SNYDER on 10/25/20 1536 Pantoprazole Sodium (Protonix) 40 Mg Tablet.dr, 40 MG PO DAILY Prescribed by: YRIS GEORGE on 11/02/20 1110 Prednisone (Prednisone) 20 Mg Tab, 30 MG PO DAILY@0700 Prescribed by: YRIS GEORGE on 11/02/20 1110 Promethazine HCl (Promethazine Tablet) 25 Mg Tablet, 25 MG PO Q6H PRN for NAUSEA/VOMITING Prescribed by: SHAI ALVAREZ on 09/26/21 2223 Simethicone (Gas-X) 125 Mg Tab.chew, 2 TAB PO BID PRN for GAS, (Reported) Entered as Reported by: ARNULFO PLEITEZ on 09/24/17 1040 Sodium Chloride (Saline Nasal [place]) 30 Ml [place], 2 SPRAYS NSEACH PRN PRN for DRY/CONGESTED NOSE, (Reported) Entered as Reported by: REECE SNYDER on 10/25/20 1536 Review of Systems Review of Systems Constitutional: chills; No diaphoresis; malaise, weakness EENTM: No Double Vision, No Ear Drainage, No Ear Pain, No Mouth Pain Respiratory: Denies Cough, Denies Orthopnea, Denies SOA With Exertion, Denies SOA at Rest Cardiovascular: Denies Edema Gastrointestinal: Abdominal Pain, Diarrhea, Nausea; Denies Vomiting Genitourinary: Denies Burning, Denies Drainage, Denies Frequency Musculoskeletal: No back pain, No gout, No joint pain Skin: No change in hair/nails All Other Systems Reviewed Negative Unless Noted: Yes Past [place]-Hdpdxv-Eejmcs Hx Patient Social History Tobacco Use?: No Use of E-Cig and/or Vaping dev: No Substance use?: No Alcohol Use?: No Pt feels they are or have been: No Immunizations Up To Date Tetanus Booster (TDap): Unknown Influenza Vaccine Up-to-Date: No; Not Current First/Initial COVID19 Vaccinat: NO Second COVID19 Vaccination Scot: NO Third COVID19 Vaccination Date: NO Seasonal Allergies Seasonal Allergies: Yes Past Medical History Surgery/Hospitalization HX: PMH: COPD, PERICARDIAL EFFUSION, DM, DEG DISK DZ, SPINAL STENOSIS, HTN, HIGH CHOL SX: PARTIAL HYST, GALLBLADDER, APPY, C-SEC, SCOPES, HERNIA REPAIR. Surgeries: Yes (pericardial window, c/s x2lung thoracensis) Abdominal, Appendectomy, Cardiac, Section, Gallbladder, Hysterectomy, Oophorectomy Respiratory: Yes (O2 @ 1.5-2L) Asthma, Pneumonia, Pulmonary Embolism, Sleep Apnea, COPD, Emphysema Currently Using CPAP: No Currently Using BIPAP: Yes Cardiac: Yes (Pericardial effusion-S/P PERICARDIAL WINDOW 08/2017) High Cholesterol, Hypertension Neurological: Yes (PSEUDO SEIZURES ) Seizure Disorder 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 Disorders: Yes Female 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 Disorders: Ovarian Cyst [employer] History: Hysterectomy, 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, Menopausal Genitourinary: No Gastrointestinal: Yes Abdominal Hernia, Gastroesophageal Reflux, Diverticulosis, Hiatal Hernia, Ulcer, Irritable Bowel Musculoskeletal: Yes (CHRONIC KNEE AND HIP PAIN, SPINAL STENOSIS) Degenerate Disk Disease, Osteoporosis, Arthritis, Chronic Back Pain Endocrine: Yes Diabetes, Non-Insulin dep HEENT: Yes Cataract Cancer: No Psychosocial: Yes Pseudo Seizures, Anxiety, Depression Integumentary: Yes Eczema Blood Disorders: No Adverse Reaction/Blood Tranf: No Family Medical History FH: cirrhosis 19 MOTHER FH: liver cancer 19 MOTHER FHx: lung cancer 19 FATHER Hypertension 19 FATHER 19 MOTHER Physical Exam Vital Signs Vital Signs - First Documented 09/27/21 10:35 Temp 36.9 Pulse 71 Resp 18 B/P (MAP) 122/78 (93) Pulse Ox 97 O2 Delivery Nasal Cannula Capillary Refill : Less Than 3 Seconds Height/Weight/BMI Height: 5'8.00" Weight: 201lbs. 0.8oz. [id number]; 33.00 BMI Method:Stated General Appearance: WD/WN, no apparent distress HEENT: PERRL/EOMI, normal ENT inspection, TMs normal, pharynx normal Neck: non-tender, full range of motion, supple, normal inspection Respiratory: chest non-tender, lungs clear, normal breath sounds, no respiratory distress, no accessory muscle use Cardiovascular: regular rate, rhythm, no edema, no gallop, no JVD Gastrointestinal: normal bowel sounds, soft, other (Right lower quadrant tenderness) Extremities: normal range of motion, non-tender, normal inspection, no calf tenderness Back: normal inspection, no CVA tenderness, no vertebral tenderness Progress/Results/Core Measures Results/Orders Lab Results Laboratory Tests Test 09/27/21 10:50 09/27/21 11:27 Range/Units White Blood Count 5.6 4.3-11.0 10^3/uL Red Blood Count 4.43 3.80-5.11 10^6/uL Hemoglobin 12.6 11.5-16.0 g/dL Hematocrit 38 35-52 % Mean Corpuscular Volume 86 80-99 fL Mean Corpuscular Hemoglobin 28 25-34 pg Mean Corpuscular Hemoglobin Concent 33 32-36 g/dL Red Cell Distribution Width 14.3 10.0-14.5 % Platelet Count 239 130-400 10^3/uL Mean Platelet Volume 8.7 L 9.0-12.2 fL Immature Granulocyte % (Auto) 1 % Neutrophils (%) (Auto) 71 42-75 % Lymphocytes (%) (Auto) 17 12-44 % Monocytes (%) (Auto) 10 0-12 % Eosinophils (%) (Auto) 1 0-10 % Basophils (%) (Auto) 1 0-10 % Neutrophils # (Auto) 4.0 1.8-7.8 10^3/uL Lymphocytes # (Auto) 1.0 1.0-4.0 10^3/uL Monocytes # (Auto) 0.6 0.0-1.0 10^3/uL Eosinophils # (Auto) 0.0 0.0-0.3 10^3/uL Basophils # (Auto) 0.0 0.0-0.1 10^3/uL Immature Granulocyte # (Auto) 0.0 0.0-0.1 10^3/uL Sodium Level 132 L 135-145 MMOL/L Potassium Level 3.5 L 3.6-5.0 MMOL/L Chloride Level 96 L 98-107 MMOL/L Carbon Dioxide Level 25 21-32 MMOL/L Anion Gap 11 5-14 MMOL/L Blood Urea Nitrogen 17 7-18 MG/DL Creatinine 1.09 0.60-1.30 MG/DL Estimat Glomerular Filtration Rate 52 BUN/Creatinine Ratio 16 Glucose Level 125 H 70-105 MG/DL Calcium Level 8.7 8.5-10.1 MG/DL Corrected Calcium 8.7 8.5-10.1 MG/DL Total Bilirubin 0.4 0.1-1.0 MG/DL Aspartate Amino Transf (AST/SGOT) 15 5-34 U/L Alanine Aminotransferase (ALT/SGPT) 18 0-55 U/L Alkaline Phosphatase 65 40-136 U/L Total Protein 7.6 6.4-8.2 GM/DL Albumin 4.0 3.2-4.5 GM/DL Lipase 25 8-78 U/L Urine Color YELLOW Urine Clarity CLEAR Urine pH 6.0 5-9 Urine Specific [place] 1.020 1.016-1.022 Urine Protein 2+ H NEGATIVE Urine Glucose (UA) NEGATIVE NEGATIVE Urine Ketones NEGATIVE NEGATIVE Urine Nitrite NEGATIVE NEGATIVE Urine Bilirubin NEGATIVE NEGATIVE Urine Urobilinogen 0.2 < = 1.0 MG/DL Urine Leukocyte Esterase NEGATIVE NEGATIVE Urine RBC (Auto) NEGATIVE NEGATIVE Urine RBC RARE /HPF Urine WBC NONE /HPF Urine Crystals NONE /LPF Urine Bacteria NEGATIVE /HPF Urine Casts NONE /LPF Urine Mucus NEGATIVE /LPF Urine Culture Indicated NO My Orders Orders - MING UP Cbc With Automated Diff (09/27/21 11:38) Comprehensive Metabolic Panel (09/27/21 11:38) Lipase (09/27/21 11:38) Ua Culture If Indicated (09/27/21 11:38) Ct Abdomen/Pelvis W (09/27/21 11:38) Ns Iv 1000 Ml (Sodium Chloride 0.9%) (09/27/21 11:45) Iohexol Injection (Omnipaque 350 Mg/Ml 1 (09/27/21 12:00) Received Contrast (Hold Metformin- Contr (09/27/21 12:00) Sodium Chloride Flush (Catheter Flush Sy (09/27/21 12:00) Ns (Ivpb) (Sodium Chloride 0.9% Ivpb Bag (09/27/21 12:00) Medications Given in ED Current Medications Medications Dose Ordered Sig/Tino Route Start Time Stop Time Status Last Admin Dose Admin Iohexol 100 ml ONCE ONCE IV 09/27/21 12:00 09/27/21 12:04 DC 09/27/21 12:11 86 ML Sodium Chloride 10 ml NEEDED PRN IV 09/27/21 12:00 09/27/21 12:11 10 ML Sodium Chloride 100 ml ONCE ONCE IV 09/27/21 12:00 09/27/21 12:04 DC 09/27/21 12:11 80 ML Vital Signs/I&O 09/27/21 09/27/21 10:35 13:31 Temp 36.9 Pulse 71 68 Resp 18 18 B/P (MAP) 122/78 (93) 122/65 Pulse Ox 97 95 O2 Delivery Nasal Cannula Room Air Blood Pressure Mean: 93 Departure Communication (Admissions) Patient with right lower quadrant abdominal pain. Nausea without vomiting. Diarrhea started yesterday. She reports flulike symptoms since last week. This is her third visit in the past week diagnosed with viral syndrome. Patient with similar white blood count. Slightly dehydrated and was given a liter of fluid. She did have episode of diarrhea here. Denies of any recent antibiotic use or travels. She does have right lower quadrant tenderness. She is concerned for diverticulitis. She does have an ovarian cyst currently being monitored by [facility]. Patient vital signs stable. Was given a liter of fluid. Urinalysis negative for infection. Similar lab work compared to yesterday. 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 Unclear etiology. Still concern for likely etiology of patient's symptoms viral syndrome. Pain may be related to the mesenteric panniculitis. Does not appear to be bacterial related at this time. Antibiotics was held. Recommend importance of hydration at home. May try short course of Imodium. Continue with Bentyl at home history of IBS. CT scan did not show if worsening pain return back to ED for further evaluation. Ct scan did not show large mass or obstruction in the right lower quadrant. Outpatient follow-up. Return precaution were discussed. Impression Primary Impression: Abdominal pain Disposition: HOME, SELF-CARE Condition: Improved Departure-Patient Inst. Decision time for Depature: 13:18 Referrals: NO,LOCAL PHYSICIAN (PCP/Family) Primary Care Physician Patient Instructions: Stomach Ache and Stomach Upset MING UP Sep 27, 2021 11:41
[2021-09-27] MEDS ORDERED: NS IV 1000 ML 1,000 ML IV SCH (11:45)
[2021-09-27 11:46] LABS: BASOPHILS % (AUTO) 1 % (0-10); EOSINOPHILS % (AUTO) 1 % (0-10); HEMATOCRIT 38 % (35-52); HEMOGLOBIN 12.6 g/dL (11.5-16.0); LYMPHOCYTES % (AUTO) 17 % (12-44); MEAN CORPUSCULAR HEMOGLOBIN 28 pg (25-34); MEAN CORPUSCULAR HGB CONC 33 g/dL (32-36); MEAN CORPUSCULAR VOLUME 86 fL (80-99); MEAN PLATELET VOLUME 8.7 fL (9.0-12.2); MONOCYTES # (AUTO) 0.6 10^3/uL (0.0-1.0); MONOCYTES % (AUTO) 10 % (0-12); NEUTROPHILS % (AUTO) 71 % (42-75); PLATELET COUNT 239 10^3/uL (130-400); WHITE BLOOD COUNT 5.6 10^3/uL (4.3-11.0)
[2021-09-27 11:49] LABS: BILIRUBIN,URINE NEGATIVE (NEGATIVE); CLARITY,URINE CLEAR; COLOR,URINE YELLOW; GLUCOSE, URINE (UA) NEGATIVE (NEGATIVE); KETONES,URINE NEGATIVE (NEGATIVE); LEUKOCYTE ESTERASE ,URINE NEGATIVE (NEGATIVE); NITRITE,URINE NEGATIVE (NEGATIVE); PROTEIN,URINE 2+ (NEGATIVE)
[2021-09-27 11:49] LABS: POTASSIUM 3.5 MMOL/L (3.6-5.0)
[2021-09-27 11:50] LABS: CALCIUM 8.7 MG/DL (8.5-10.1)
[2021-09-27 11:51] LABS: TOTAL PROTEIN 7.6 GM/DL (6.4-8.2)
[2021-09-27 11:53] LABS: BILIRUBIN,TOTAL 0.4 MG/DL (0.1-1.0)
[2021-09-27 11:55] LABS: CREATININE SERUM 1.09 MG/DL (0.60-1.30)
[2021-09-27 12:00] LABS: BACTERIA,URINE NEGATIVE /HPF; RBC,URINE RARE /HPF
[2021-09-27] MEDS ORDERED: HOLD METFORMIN - RECEIVED CONTRAST 20 ML VIAL IV SCH (12:00)
[2021-09-27] MEDS ORDERED: CATHETER FLUSH 10 ML SYR IV PRN (12:00)
[2021-09-27] MEDS ORDERED: NS 100 ML (IVPB) BAG IV ONE (12:00)
[2021-09-27] MEDS ORDERED: IOHEXOL 350 MG/ML 100 ML (OMNIPAQUE 350) VIAL IV ONE (12:00)
--- NOTE | 2021-09-27 12:38 | Diagnostic Imaging Report ---
EXAMINATION: CT abdomen and pelvis with intravenous contrast. TECHNIQUE: Multiple contiguous axial images were obtained through the abdomen and pelvis after the uneventful administration of intravenous contrast. All CT scans use one or more of the following dose optimizing techniques: automated exposure control, MA and/or KvP adjustment based on patient size and exam type or iterative reconstruction. HISTORY: Right lower quadrant pain. COMPARISON: 05/06/2021 FINDINGS: Limited views of the lower thorax are unremarkable. The liver is normal without focal lesion. There is no biliary ductal dilation. Gallbladder is surgically absent. There is a duodenal diverticulum. Pancreas is normal. Spleen is normal. Adrenal glands are normal. The kidneys are normal. There is no hydronephrosis. Urinary bladder is normal. Bowel is normal in caliber without obstruction or inflammation. The appendix is not seen. No evidence for inflammation in the right lower quadrant. There is mild mesenteric panniculitis. No free fluid or air. No abdominal or pelvic lymphadenopathy. Aorta is normal in caliber without aneurysm. There are no suspicious osseus lesions. IMPRESSION: 1. Mild mesenteric panniculitis. 2. The appendix is not seen but there is no evidence for inflammation in the right lower quadrant. Dictated by: Dictated on workstation # [id number]
[2021-09-27 13:31] VITALS: BP 122/65
== END 2021-09-27 13:40 | disposition home or self-care (01) ==
LOC: EDUNIT# 10:09 → ER 10:10
DX: R10.31 Right lower quadrant pain (principal); G47.30 Sleep apnea, unspecified; J44.9 Chronic obstructive pulmonary disease, unspecified; I10 Essential (primary) hypertension; F41.9 Anxiety disorder, unspecified; F32.9 Major depressive disorder, single episode, unspecified; E11.9 Type 2 diabetes mellitus without complications; E78.00 Pure hypercholesterolemia, unspecified; K21.9 Gastro-esophageal reflux disease without esophagitis; G89.29 Other chronic pain; M54.9 Dorsalgia, unspecified; Z79.899 Other long term (current) drug therapy; Z79.82 Long term (current) use of aspirin; Z79.891 Long term (current) use of opiate analgesic
CPT/HCPCS: 36415; 74177; 80053; 81000; 83690; 85025

== ENCOUNTER 2021-12-10 14:26 | Emergency (ER) | payer MEDICAID ==
[~2021-12-10] VITALS: Ht 172.7 cm; Wt 98.4 kg
[~2021-12-10 14:26] MED LIST changes: -FLUC150T2 PO; +FLUC150T41 PO
[2021-12-10 15:00] LABS: BASOPHILS % (AUTO) 0 % (0-10); EOSINOPHILS % (AUTO) 0 % (0-10); HEMATOCRIT 40 % (35-52); HEMOGLOBIN 13.4 g/dL (11.5-16.0); LYMPHOCYTES # (AUTO) 0.5 X 10^3 (1.0-4.0); LYMPHOCYTES % (AUTO) 6 % (12-44); MEAN CORPUSCULAR HEMOGLOBIN 28 pg (25-34); MEAN CORPUSCULAR HGB CONC 33 g/dL (32-36); MEAN CORPUSCULAR VOLUME 84 fL (80-99); MEAN PLATELET VOLUME 8.3 fL (9.0-12.2); MONOCYTES # (AUTO) 0.5 X 10^3 (0.0-1.0); MONOCYTES % (AUTO) 5 % (0-12); NEUTROPHILS # (AUTO) 8.8 X 10^3 (1.8-7.8); NEUTROPHILS % (AUTO) 89 % (42-75); PLATELET COUNT 261 10^3/uL (130-400); WHITE BLOOD COUNT 9.8 10^3/uL (4.3-11.0)
[2021-12-10] MEDS ORDERED: LACTATED RINGERS 1,000 ML IV SCH (15:00)
--- NOTE | 2021-12-10 15:02 | ED Cough/URI ---
General Stated Complaint: COUGH/CONGESTION/SOB Source: patient Exam Limitations: no limitations History of Present Illness Date Seen by Provider: Dec 10, 2021 Time Seen by Provider: 14:52 Initial Comments To ER with c/o productive cough, nasal congestion, shortness of breath.No fevers, has Oxygen at home that she normally wears at night but has increased t he use to using this [id number]. No fevers. She was seen by primary care and started on prednisone 40 mg daily 2 days ago. She still feels like she is not getting much better. Timing/Duration: constant Severity/Quality: moderate Associated Symptoms: cough Allergies and Home Medications Allergies Coded Allergies: buspirone HCl (Verified Allergy, Unknown, 10/11/18) etodolac (Verified Allergy, Unknown, 10/11/18) trazodone (Verified Allergy, Unknown, 10/25/20) Neuromuscular Blockers, Steroidal (Verified Adverse Reaction, Unknown, 10/11/18) gabapentin (Verified Adverse Reaction, Unknown, 10/11/18) Patient Home Medication List Home Medication List Reviewed: Yes Albuterol Sulfate (Proair Hfa) 1 Puff Puff, 2 PUFF INH QID PRN for SHORTNESS OF BREATH, (Reported) Entered as Reported by: ARNULFO PLEITEZ on 08/29/17 0840 Albuterol Sulfate (Albuterol Sulfate) 2.5 Mg/3 Ml Vial.neb, 2.5 MG NEB Q4H PRN for SHORTNESS OF BREATH, (Reported) Entered as Reported by: ARNULFO PLEITEZ on 08/29/17 0840 Alprazolam (Alprazolam) 0.5 Mg Tablet, 0.5 MG PO TID PRN for ANXIETY, (Reported) Entered as Reported by: ARNULFO PLEITEZ on 08/29/17 0840 Amlodipine Besylate (Amlodipine Besylate) 10 Mg Tablet, 10 MG PO DAILY, (Reported) Entered as Reported by: PETER CURTIS on 08/20/18 1407 Aspirin (Aspirin EC) 325 Mg Tablet.dr, 325 MG PO DAILY, (Reported) Entered as Reported by: ARNULFO PLEITEZ on 09/24/17 1040 Atenolol (Atenolol) 50 Mg Tablet, 50 MG PO HS, (Reported) Entered as Reported by: PETER CURTIS on 08/20/18 1407 Cetirizine HCl (Cetirizine HCl) 10 Mg Tablet, 10 MG PO DAILY PRN for ALLERGY SYMPTOMS, (Reported) Entered as Reported by: ARNULFO PLEITEZ on 08/29/17 0840 Cholecalciferol (Vitamin D3) (Vitamin D3) 125 Mcg Tablet, 125 MCG PO DAILY, (Reported) Entered as Reported by: REECE SNYDER on 10/25/20 1541 Clonidine HCl (Clonidine HCl) 0.1 Mg Tablet, 0.1 MG PO TID, (Reported) Entered as Reported by: BRUAN BURLESON on 01/19/18 0931 Dicyclomine HCl (Dicyclomine HCl) 10 Mg Capsule, 20 MG PO TID Prescribed by: YRIS GEORGE on 11/02/20 1110 Diphenhydramine HCl (Benadryl) 25 Mg Capsule, 25 MG PO Q6H PRN for ALLERGY SYMPTOMS, (Reported) Entered as Reported by: REECE SNYDER on 10/25/20 1536 Docusate Sodium (Stool Softener) 100 Mg Capsule, 100 MG PO BID, (Reported) Entered as Reported by: REECE SNYDER on 10/25/20 1536 Enalapril Maleate (Enalapril Maleate) 20 Mg Tablet, 10 MG PO BID, (Reported) Entered as Reported by: PETER CURTIS on 08/20/18 1412 Ezetimibe (Ezetimibe) 10 Mg Tablet, 10 MG PO DAILY, (Reported) Entered as Reported by: REECE SNYDER on 10/25/20 1536 Fluconazole (Diflucan) 150 Mg Tablet, 150 MG PO ONCE Prescribed by: KRYSTIAN TY on 04/08/21 1515 Fluticasone Propion/Salmeterol (Fluticasone-Salmeterol 500-50) 1 Each Blst.w.dev, 1 PUFF INH Q12H, (Reported) Entered as Reported by: REECE SNYDER on 10/25/20 1536 Fluticasone Propionate (Fluticasone Propionate) 16 Gm [place].susp, 1 SPRAY NSEACH BID, (Reported) Entered as Reported by: ARNULFO PLEITEZ on 08/29/17 0840 Folic Acid (Folic Acid) 1 Mg Tablet, 1 MG PO DAILY, (Reported) Entered as Reported by: REECE SNYDER on 10/25/20 1536 Guaifenesin/Dextromethorphan (Mucinex Dm ER 600-30 mg Tablet) 1 Each Tab.er.12h, 1-2 EACH PO Q12H PRN for COUGH/CONGESTION, (Reported) Entered as Reported by: REECE SNYDER on 10/25/20 1536 Hydrocodone/Acetaminophen (Hydrocodone-Acetamin 5-325 mg) 1 Each Tablet, 1 TAB PO Q4H PRN for PAIN-MODERATE (5-7) Prescribed by: EREN MCDONALD on 01/05/21 1728 Mag Hydrox/Al Hydrox/Simeth (Mylanta Suspension) 30 Ml Oral.susp, 20-30 ML PO QID PRN for INDIGESTION, (Reported) Entered as Reported by: REECE SNYDER on 11/01/20 1033 Nystatin (Nystatin) 100,000 Unit/1 Ml Oral.susp, 5 ML PO QID Prescribed by: YRIS GEORGE on 11/02/20 1110 [place]-3/Dha/Epa/Fish Oil ([place]-3 Fish Oil 1,000 mg Sftg) 1 Each Capsule, 1 EA PO TID, (Reported) Entered as Reported by: REECE SNYDER on 10/25/20 1536 Omeprazole (Omeprazole) 20 Mg Capsule.dr, 20 MG PO DAILY, (Reported) Entered as Reported by: REECE SNYDER on 10/25/20 1536 Ondansetron (Ondansetron Odt) 4 Mg Tab.rapdis, 4 MG PO DAILY, (Reported) Entered as Reported by: REECE SNYDER on 10/25/20 1536 Ondansetron (Ondansetron Odt) 4 Mg Tab.rapdis, 4 MG PO Q6H PRN for NAUSEA/VOMITING Prescribed by: SHAI ALVAREZ on 05/06/21 1701 Ondansetron (Ondansetron Odt) 4 Mg Tab.rapdis, 4-8 MG PO Q6H PRN for NAUSEA/VOMITING Prescribed by: SHAI ALVAREZ on 09/26/21 2223 Oxymetazoline HCl (Afrin) 15 Ml Mist, 2-3 SPRAYS NSEACH Q12H PRN for CONGESTION, (Reported) Entered as Reported by: REECE SNYDER on 10/25/20 1536 Pantoprazole Sodium (Protonix) 40 Mg Tablet.dr, 40 MG PO DAILY Prescribed by: YRIS GEORGE on 11/02/20 1110 Prednisone (Prednisone) 20 Mg Tab, 30 MG PO DAILY@0700 Prescribed by: YRIS GEORGE on 11/02/20 1110 Promethazine HCl (Promethazine Tablet) 25 Mg Tablet, 25 MG PO Q6H PRN for NAUSEA/VOMITING Prescribed by: SHAI ALVAREZ on 09/26/21 2223 Simethicone (Gas-X) 125 Mg Tab.chew, 2 TAB PO BID PRN for GAS, (Reported) Entered as Reported by: ARNULFO PLEITEZ on 09/24/17 1040 Sodium Chloride (Saline Nasal [place]) 30 Ml [place], 2 SPRAYS NSEACH PRN PRN for DRY/CONGESTED NOSE, (Reported) Entered as Reported by: REECE SNYDER on 10/25/20 1536 Review of Systems Review of Systems Constitutional: see HPI EENTM: see HPI Respiratory: see HPI, cough, short of breath Cardiovascular: no symptoms reported Genitourinary: no symptoms reported Musculoskeletal: no symptoms reported Skin: no symptoms reported Psychiatric/Neurological: No Symptoms Reported Hematologic/Lymphatic: No Symptoms Reported Past Dgywvda-Ybxxrs-Ryzgni Hx Immunizations Up To Date Tetanus Booster (TDap): Unknown First/Initial COVID19 Vaccinat: NO Second COVID19 Vaccination Scot: NO Third COVID19 Vaccination Date: NO Seasonal Allergies Seasonal Allergies: Yes Past Medical History Surgery/Hospitalization HX: PMH: COPD, PERICARDIAL EFFUSION, DM, DEG DISK DZ, SPINAL STENOSIS, HTN, HIGH CHOL SX: PARTIAL HYST, GALLBLADDER, APPY, C-SEC, SCOPES, HERNIA REPAIR. 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, 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, Menopausal Genitourinary: No Gastrointestinal: Yes Abdominal Hernia, Gastroesophageal Reflux, Diverticulosis, Hiatal Hernia, Ulcer, Irritable Bowel Musculoskeletal: Yes (CHRONIC KNEE AND HIP PAIN, SPINAL STENOSIS) Degenerate Disk Disease, Osteoporosis, Arthritis, Chronic Back Pain Endocrine: Yes Diabetes, Non-Insulin dep HEENT: Yes Cataract Cancer: No Psychosocial: Yes Pseudo Seizures, Anxiety, Depression Integumentary: Yes Eczema Blood Disorders: No Adverse Reaction/Blood Tranf: No Family Medical History FH: cirrhosis 19 MOTHER FH: liver cancer 19 MOTHER FHx: lung cancer 19 FATHER Hypertension 19 FATHER 19 MOTHER Physical Exam Vital Signs - First Documented 12/10/21 14:38 Temp 36.2 Pulse 99 Resp 20 B/P (MAP) 153/80 (104) Pulse Ox 98 O2 Delivery Nasal Cannula O2 Flow Rate 2.00 Capillary Refill : Height: 5'8.00" Weight: 201lbs. 0.8oz. 91.141725bh; 33.00 BMI Method:Stated General Appearance: WD/WN, no apparent distress, other (98% on 2 L. Lungs are clear.) Eyes: Bilateral Eye Normal Inspection, Bilateral Eye PERRL, Bilateral Eye EOMI Neck: non-tender, full range of motion Respiratory: normal breath sounds, no respiratory distress, no accessory muscle use Cardiovascular: regular rate, rhythm, no murmur Gastrointestinal: normal bowel sounds, non tender, soft Extremities: normal range of motion Neurologic/Psychiatric: alert, normal mood/affect, oriented x 3 Skin: normal color, warm/dry Progress/Results/Core Measures Suspected Sepsis SIRS Temperature: Pulse: Respiratory Rate: Laboratory Tests 12/10/21 14:45: White Blood Count 9.8 Blood Pressure / Mean: Laboratory Tests 12/10/21 14:45: Creatinine 1.28, Platelet Count 261, Total Bilirubin 0.2 Results/Orders Lab Results Laboratory Tests Test 12/10/21 14:45 12/10/21 15:06 Range/Units White Blood Count 9.8 4.3-11.0 10^3/uL Red Blood Count 4.77 3.80-5.11 10^6/uL Hemoglobin 13.4 11.5-16.0 g/dL Hematocrit 40 35-52 % Mean Corpuscular Volume 84 80-99 fL Mean Corpuscular Hemoglobin 28 25-34 pg Mean Corpuscular Hemoglobin Concent 33 32-36 g/dL Red Cell Distribution Width 15.3 H 10.0-14.5 % Platelet Count 261 130-400 10^3/uL Mean Platelet Volume 8.3 L 9.0-12.2 fL Immature Granulocyte % (Auto) 0 % Neutrophils (%) (Auto) 89 H 42-75 % Lymphocytes (%) (Auto) 6 L 12-44 % Monocytes (%) (Auto) 5 0-12 % Eosinophils (%) (Auto) 0 0-10 % Basophils (%) (Auto) 0 0-10 % Neutrophils # (Auto) 8.8 H 1.8-7.8 X 10^3 Lymphocytes # (Auto) 0.5 L 1.0-4.0 X 10^3 Monocytes # (Auto) 0.5 0.0-1.0 X 10^3 Eosinophils # (Auto) 0.0 0.0-0.3 10^3/uL Basophils # (Auto) 0.0 0.0-0.1 10^3/uL Immature Granulocyte # (Auto) 0.0 0.0-0.1 10^3/uL Sodium Level 130 L 135-145 MMOL/L Potassium Level 4.6 3.6-5.0 MMOL/L Chloride Level 90 L 98-107 MMOL/L Carbon Dioxide Level 23 21-32 MMOL/L Anion Gap 17 H 5-14 MMOL/L Blood Urea Nitrogen 23 H 7-18 MG/DL Creatinine 1.28 0.60-1.30 MG/DL Estimat Glomerular Filtration Rate 49 BUN/Creatinine Ratio 18 Glucose Level 222 H 70-105 MG/DL Calcium Level 10.7 H 8.5-10.1 MG/DL Corrected Calcium 10.3 H 8.5-10.1 MG/DL Total Bilirubin 0.2 0.1-1.0 MG/DL Aspartate Amino Transf (AST/SGOT) 12 5-34 U/L Alanine Aminotransferase (ALT/SGPT) 17 0-55 U/L Alkaline Phosphatase 77 40-136 U/L Total Protein 8.3 H 6.4-8.2 GM/DL Albumin 4.5 3.2-4.5 GM/DL Influenza Type A (RT-PCR) Detected H Not Detecte Influenza Type B (RT-PCR) Not Detected Not Detecte SARS-CoV-2 RNA (RT-PCR) Not Detected Not Detecte Glucometer 207 H 70-110 MG/DL My Orders Orders - EREN MCDONALD APRN Cbc With Automated Diff (12/10/21 14:47) Comprehensive Metabolic Panel (12/10/21 14:47) Chest 1 View, Ap/Pa Only (12/10/21 14:47) Covid 19 Inhouse Test (12/10/21 14:47) Influenza A And B By Pcr (12/10/21 14:47) Procalcitonin (Pct) (12/10/21 14:47) Lactated Ringers (Lr 1000 Ml Iv Solution (12/10/21 15:00) Accucheck Stat ONCE (12/10/21 14:47) Manual Differential (12/10/21 14:45) Vital Signs/I&O 12/10/21 12/10/21 14:38 14:38 Temp 36.2 Pulse 99 Resp 20 B/P (MAP) 153/80 (104) Pulse Ox 98 O2 Delivery Nasal Cannula Nasal Cannula O2 Flow Rate 2.00 2.00 Capillary Refill : Departure Communication (Admissions) NAME: MAHNAZ VANCE [facility] REC#: [id number] PT STATUS: REG ER : 1965 PHYSICIAN: EREN MCDONALD APRN ADMIT DATE: 12/10/21/ER Draft Date of Exam:12/10/21 CHEST 1 VIEW, AP/PA ONLY INDICATION: Cough, COPD. TECHNIQUE: Single view chest 3:03 PM. CORRELATION STUDY: 09/26/2021. FINDINGS: Patient is rotated towards the left. Heart size enlarged. Mediastinum is within normal limits with calcification of the aortic arch. Vasculature overall within normal limits. The lungs are clear with no consolidating infiltrate. There is no significant effusion or pneumothorax. IMPRESSION: Cardiac enlargement without failure. No infiltrate. Dictated on workstation # [id number] Dict: 12/10/21 1523 Trans: 12/10/[address] [facility] [id number] Interpreted by: MAURISIO TOURE DO Electronically signed by: Ajit Primary Impression: Influenza Disposition: 01 HOME, SELF-CARE Condition: Stable Departure-Patient Inst. Decision time for Depature: 15:35 Referrals: REECE BENAVIDES DO (PCP/Family) Primary Care Physician Patient Instructions: Flu Add. Discharge Instructions: 1. Continue current medications. Follow-up with Dr. Benavides tomorrow. Return to ER for any worsening. Scripts Baloxavir Marboxil (Xofluza) 80 Mg Tablet 80 MG PO ONCE, #1 TAB Prov: EREN MCDONALD APRN 12/10/21 EREN MCDONALD APRN Dec 10, 2021 15:02
[2021-12-10 15:19] LABS: ALBUMIN 4.5 GM/DL (3.2-4.5); POTASSIUM 4.6 MMOL/L (3.6-5.0)
[2021-12-10 15:20] LABS: CALCIUM 10.7 MG/DL (8.5-10.1)
[2021-12-10 15:21] LABS: TOTAL PROTEIN 8.3 GM/DL (6.4-8.2)
[2021-12-10 15:23] LABS: BILIRUBIN,TOTAL 0.2 MG/DL (0.1-1.0)
[2021-12-10 15:25] LABS: CREATININE SERUM 1.28 MG/DL (0.60-1.30)
--- NOTE | 2021-12-10 15:26 | Diagnostic Imaging Report ---
INDICATION: Cough, COPD. TECHNIQUE: Single view chest 3:03 PM. CORRELATION STUDY: 09/26/2021. FINDINGS: Patient is rotated towards the left. Heart size enlarged. Mediastinum is within normal limits with calcification of the aortic arch. Vasculature overall within normal limits. The lungs are clear with no consolidating infiltrate. There is no significant effusion or pneumothorax. IMPRESSION: Cardiac enlargement without failure. No infiltrate. Dictated by: Dictated on workstation # [id number]
[2021-12-10] MEDS ORDERED: BALO80TA PO (15:37)
[2021-12-10] MEDS ORDERED: HYDROcodone/APAP 5 MG/325 MG (LORTAB) TAB PO ONE (15:45)
[2021-12-10 16:11] VITALS: BP 107/75
[2021-12-10 16:23] LABS: BAND NEUTROPHILS 3 %; BASOPHILS % (MANUAL) 0 %; EOSINOPHILS % (MANUAL) 0 %; LYMPHOCYTES % (MANUAL) 4 %; MONOCYTES % (MANUAL) 3 %; NEUTROPHILS % (MANUAL) 90 %; RBC MORPH NORMAL
== END 2021-12-10 16:11 | disposition home or self-care (01) ==
LOC: EDUNIT# 14:26 → ER 14:29
DX: J11.1 Influenza due to unidentified influenza virus with other respiratory manifestations (principal); Z20.822 Contact with and (suspected) exposure to COVID-19
CPT/HCPCS: 36415; 71045; 80053; 82947; 84145; 85007; 85027; 87636

== ENCOUNTER → 2022-02-28 | Outpatient (CLI) | payer MEDICAID ==
[~2022-02-28] MED LIST changes: +BALO80TA PO; +RT-ALBUTEROL SULF 2.5 MG/3 ML PRE-MIX VIAL INH ONE
--- NOTE | 2022-02-28 15:53 | Diagnostic Imaging Report ---
EXAMINATION: CT chest without contrast. TECHNIQUE: Multiple contiguous axial images were obtained through the chest without the use of intravenous contrast. All CT scans use one or more of the following dose optimizing techniques: automated exposure control, MA and/or KvP adjustment based on patient size and exam type or iterative reconstruction. HISTORY: COPD, lung nodules. COMPARISON: 11/24/2020. FINDINGS: Thyroid: The thyroid is normal. Mediastinum: Heart size is normal without significant pericardial effusion. Calcifications of the aorta and coronary vessels. Thoracic aorta is normal in caliber. No suspicious lymphadenopathy. Lungs and airways: There are background emphysematous changes of the lungs without pleural effusion or pneumothorax. There are multiple new subcentimeter nodules as well as multiple reticulonodular opacities within the lung bases. The largest nodule measures up to 0.4 cm (series 3 image 111). The airways are normal. Upper abdomen: The gallbladder is surgically absent. Musculoskeletal: Degenerative changes of the spine without suspicious osseous lesion or compression fracture. IMPRESSION: Multiple new reticular nodular as well as nodular opacities the lung bases. The findings could be seen with atypical infection. Recommend short-term CT follow-up in 1 to 3 months to document resolution and exclude true underlying pulmonary nodules. Dictated by: Dictated on workstation # [id number]
== END ==
LOC: RT 13:00
PROVIDERS: ATTEND Internal Medicine Critical Care Medicine
DX: J44.9 Chronic obstructive pulmonary disease, unspecified (principal); R91.8 Other nonspecific abnormal finding of lung field; G47.33 Obstructive sleep apnea (adult) (pediatric); J96.21 Acute and chronic respiratory failure with hypoxia; Z87.891 Personal history of nicotine dependence
CPT/HCPCS: 71250; 94060; 94726; 94729

== ENCOUNTER → 2022-03-21 | Outpatient (CLI) | payer MEDICAID ==
[~2022-03-21] MED LIST changes: -RT-ALBUTEROL SULF 2.5 MG/3 ML PRE-MIX VIAL INH ONE
== END ==
LOC: CARD 13:13
PROVIDERS: ATTEND Pediatrics
DX: R00.1 Bradycardia, unspecified (principal)
CPT/HCPCS: 93225; 93226

== ENCOUNTER → 2022-06-11 | Outpatient (CLI) | payer MEDICAID ==
--- NOTE | 2022-06-11 16:33 | Diagnostic Imaging Report ---
PROCEDURE: CT chest without contrast. TECHNIQUE: Multiple contiguous axial images were obtained through the chest without the use of intravenous contrast. Auto Exposure Controls were utilized during the CT exam to meet ALARA standards for radiation dose reduction. INDICATION: Follow-up pulmonary nodules. COMPARISON with 02/28/2022 CT. FINDINGS: Underlying emphysematous disease with honeycombing is again noted. There is hyperaeration with flattening of the diaphragm. Multiple subcentimeter nodules remain present without significant change from previous exam. The largest is in the right middle lobe measuring 5 mm and the left lower lobe measuring 4 mm. No new nodules have developed. No pleural effusion or pneumothorax. No mediastinal or hilar adenopathy. No bony lesion. IMPRESSION: Multiple subcentimeter pulmonary nodules again noted, stable since previous exam. Would recommend follow-up CT depending on clinical risk factors utilizing Fleischner Society recommendations. Dictated by: Dictated on workstation # [id number]
== END ==
LOC: RAD 12:45
PROVIDERS: ATTEND Internal Medicine Critical Care Medicine
DX: J96.21 Acute and chronic respiratory failure with hypoxia (principal); J44.9 Chronic obstructive pulmonary disease, unspecified; R91.8 Other nonspecific abnormal finding of lung field; G47.33 Obstructive sleep apnea (adult) (pediatric); Z87.891 Personal history of nicotine dependence
CPT/HCPCS: 71250

== ENCOUNTER → 2022-06-13 | Outpatient (CLI) | payer MEDICAID ==
[2022-06-13 08:04] LABS: BILIRUBIN,TOTAL 0.3 MG/DL (0.1-1.0); CALCIUM 9.8 MG/DL (8.5-10.1); CREATININE SERUM 0.87 MG/DL (0.60-1.30); POTASSIUM 3.8 MMOL/L (3.6-5.0); TOTAL PROTEIN 7.6 GM/DL (6.4-8.2)
== END ==
LOC: LAB 07:25
PROVIDERS: ATTEND Physician Assistant
DX: I50.32 Chronic diastolic (congestive) heart failure (principal); I10 Essential (primary) hypertension; E78.2 Mixed hyperlipidemia
CPT/HCPCS: 36415; 80053; 80061

== ENCOUNTER → 2023-05-21 | Outpatient (CLI) | payer MEDICAID ==
[~2023-05-21] MED LIST changes: +ALBU8.5H6 INH; +ENAL-70 PO; -ENAL20TA16 PO; -RT-ALBUINH INH
== END ==
LOC: CARD 13:09
PROVIDERS: ATTEND Internal Medicine Cardiovascular Disease
DX: I11.9 Hypertensive heart disease without heart failure (principal); I25.10 Atherosclerotic heart disease of native coronary artery without angina pectoris
CPT/HCPCS: 93306

== ENCOUNTER 2023-06-20 10:10 | Outpatient (RCR) | payer MEDICAID ==
[2023-06-06] MEDS: OMALIZUMAB INJECTION 150 MG VIAL SQ SCH (11:02)
[2023-06-06 11:25] VITALS: BP 145/81
[~2023-06-20] VITALS: Ht 167 cm; Wt 98.4 kg
[2023-06-20 10:00] VITALS: BP 129/74
[~2023-06-20 10:10] MED LIST changes: +DICY-11 PO; -DICY10CA12 PO
[2023-06-20] MEDS: OMALIZUMAB INJECTION 150 MG VIAL SQ SCH (10:35)
== END 2023-06-22 | disposition home or self-care (01) ==
LOC: SDC 10:10
PROVIDERS: ATTEND Internal Medicine Critical Care Medicine
DX: J45.50 Severe persistent asthma, uncomplicated (principal)
CPT/HCPCS: 96372

== ENCOUNTER 2023-07-04 09:17 | Outpatient (RCR) | payer MEDICAID ==
[2023-07-04] MEDS ORDERED: OMALIZUMAB 150 MG INJ (XOLAIR) SQ SCH (09:30)
[2023-07-04 10:00] VITALS: BP 121/63
== END 2023-07-23 | disposition home or self-care (01) ==
LOC: SDC 09:17
PROVIDERS: ATTEND Internal Medicine Critical Care Medicine
DX: J45.50 Severe persistent asthma, uncomplicated (principal)
CPT/HCPCS: 96372

== ENCOUNTER 2023-08-14 09:19 | Outpatient (RCR) | payer MEDICAID ==
[2023-07-25 10:45] VITALS: BP 125/71
[2023-07-25] MEDS: OMALIZUMAB 150 MG INJ (XOLAIR) SQ SCH (11:34)
[~2023-08-14] VITALS: Ht 170.2 cm; Wt 98.2 kg
[2023-08-14] MEDS: OMALIZUMAB 150 MG INJ (XOLAIR) SQ SCH (10:34)
[2023-08-14 10:40] VITALS: BP 108/64
== END 2023-08-14 10:40 | disposition home or self-care (01) ==
LOC: SDC 09:19
PROVIDERS: ATTEND Internal Medicine Critical Care Medicine
DX: J45.50 Severe persistent asthma, uncomplicated (principal)
CPT/HCPCS: 96372